=== PATIENT | male | born 1950 | race Caucasian/White ===

== ENCOUNTER → 2018-05-14 12:57 | Outpatient (CLI) | payer MEDICARE, SELFPAY ==
[2018-05-14 15:05] LABS: PSA,Total - Annual Screen < 0.01 ng/mL (0.00-4.00)
== END ==
PROVIDERS: Family Provider Family Medicine; PCP Family Medicine; Referring Provider Urology; Visit Provider Urology
DX: Z12.5 Encounter for screening for malignant neoplasm of prostate (principal)
CPT/HCPCS: 36415; 84153; G0103

== ENCOUNTER → 2018-07-10 14:55 | Outpatient (CLI) | payer MEDICARE, SELFPAY ==
[2018-07-10 13:44] VITALS: BMI 32.1
[2018-07-10 16:04] LABS: Absolute Lymphocyte Count 2.82 X10^3/ul (0.83-4.51); Absolute Neutrophil Count 4.6 X10^3/uL (2.0-7.7); Basophil# 0.04 X10^3/uL; Basophil% 0.5 % (0-1); Eosinophil# 0.09 X10^3/uL; Eosinophils% 1.1 % (0-5); Hematocrit 46.2 % (40-54); Hemoglobin 15.5 g/dl (13.0-16.5); Lymphocyte # 2.82 X10^3/ul (4.0); Mean Corp Hgb Conc 33.5 g/gl (32-36); Mean Corpuscular Hgb 33.6 pg (27.0-32.0); Mean Corpuscular Volume 100.2 fL (80-94); Mean Platelet Vol. 8.9 fl (6.2-12.0); Monocyte% 8.4 % (0-10); Neutrophil # 4.58 X10^3/uL (2.7-7.7); Neutrophil % 55.2 % (47-70); Platelet Count 281 K/mm3 (150-450); RBC Distribution Width CV 12.3 % (11.6-14.6); RBC Distribution Width SD 44.9 fl (35.1-43.9); Red Blood Count 4.61 M/mm3 (4.6-6.2); White Blood Count 8.3 K/mm3 (4.4-11.0)
[2018-07-10 16:13] LABS: Anion Gap 7 (5-15); BUN 15 mg/dL (7-18); BUN/Creat Ratio 15.1 RATIO (10-20); Calcium,Total 8.9 mg/dL (8.5-10.1); Chloride 106 mmol/L (98-107); Creatinine, Serum 0.99 mg/dL (0.70-1.30); EST Glomerular Filtration Rate 79 mL/min (>60); Est Glom Filt Rate - Afr Amer 96 mL/min (>60); Glucose 86 mg/dL (74-106); POSITIVE COUNT NO; POSITIVE DIFFERENTIAL NO; POSITIVE MORPHOLOGY NO; Potassium 3.9 mmol/L (3.5-5.1); Sodium Level 143 mmol/L (136-145)
--- OUTSIDE RECORDS SUMMARY | 2018-09-05 01:02 | XMS RPT_ITS ---
:1950 Author Organization [place] Support Name Relationship Address Phone R Unavailable Unavailable Unavailable CESARISADORA CAMARILLOCY Unavailable [address] + [place] [address] R Unavailable Unavailable Unavailable JANIYA ELIZA Unavailable [address] + [place] [address] R Unavailable Unavailable Unavailable SHIFRABIA ELIZA Unavailable [address] + [place] [address] R Unavailable Unavailable Unavailable R Unavailable Unavailable Unavailable JANIYA ELIZA Unavailable [address] + [place] [address] DULL, IRINA Unavailable [address] + [place] [address] R Unavailable Unavailable Unavailable JANIYA, ELIZA Unavailable [address] + [place] [address] Shiffer, Eliza Unavailable [address] + [place] [address] Shiffer, Eliza Unavailable [address] + [place] [address] Shiffer, Eliza Unavailable [address] + [place] [address] Shiffer, Eliza Unavailable [address] + [place] [address] Shifrabia, Eliza Unavailable [address] + [place] [address] DULL, IRINA Unavailable [address] + [place] [address] R Unavailable Unavailable Unavailable SHIFRABIA, ELIZA Unavailable [address] + [place] [address] DULL, IRINA Unavailable [address] + [place] [address] R Unavailable Unavailable Unavailable ELIZA DENSON Unavailable [address] + [place] [address] Care Team Providers Name Role Phone Petrilla, Ganga Attending Unavailable UNKNOWN, PROVIDER Referring Unavailable Petrilla, Ganga Primary Care Unavailable Petrilla, Ganga Attending Unavailable UNKNOWN, PROVIDER Referring Unavailable Petrilla, Ganga Primary Care Unavailable Petrilla, Ganga Attending Unavailable UNKNOWN, PROVIDER Referring Unavailable Petrilla, Ganga Primary Care Unavailable Ralph Chavez Attending Unavailable Sola Osorio Attending Unavailable PETRILLA, GANGA Referring Unavailable PETRILLA, GANGA Primary Care Unavailable MukeshNelson Attending Unavailable PETRILLA, GANGA Primary Care Unavailable Mukesh, Sunil Referring Unavailable Bere Thompson Attending Unavailable Sadaf, Edgardo Attending Unavailable PETRILLA, GANGA Referring Unavailable Sadaf, [place] Attending Unavailable Sadaf, [place] Referring Unavailable PETRILLA, GANGA Primary Care Unavailable Sadaf, Edgardo Attending Unavailable Sadaf, [place] Referring Unavailable PETRILLA, GANGA Primary Care Unavailable PROBLEMS PROBLEMS DATE TYPE CONDITION / CODE ATTENDING STATUS SOURCE 07/10/2018 Unknown R94.39 - Abnormal Sadaf, [place] Active Berenice result of other [facility] cardiovascular Hospital function study / Repository R94.39(ICD-10) 07/10/2018 Unknown R07.9 - Chest pain, Sadaf, Edgardo Active Berenice unspecified / Community R07.9(ICD-10) Hospital Repository 07/02/2018 Admitting Other forms of Petrilla, Active [facility] Diagnosis dyspnea / [facility] System R06.09(ICD-10) Repository 06/05/2018 Admitting Hepatomegaly, not Petrilla, Active [facility] Diagnosis elsewhere classified [facility] System / R16.0(ICD-10) Repository 06/05/2018 Admitting Fatty (change of) Petrilla, Active [facility] Diagnosis liver, not elsewhere [facility] System classified / Repository K76.0(ICD-10) PROCEDURES PROCEDURES No Procedure Records FoundRESULTS RESULTS CBC W/DIFF, AUTOMATED Collected: 07/10/2018 Status: F Source: BERENICE 3:03 PM [facility] REPOSITORY TYPE CODE TESTS RESULT OUT OF RANGE REFERENCE UNITS LAB L100.1000 4.4-11.0 K/mm3 Normal WBC 8.3 LAB L100.1200 4.6-6.2 M/mm3 Normal RBC 4.61 LAB L100.1300 13.0-16.5 g/dl Normal HGB 15.5 LAB L100.1400 40-54 % Normal HCT 46.2 LAB L100.1500 80-94 fL High MCV 100.2 LAB L100.1600 27.0-32.0 pg High MCH 33.6 LAB L100.1700 32-36 g/gl Normal MCHC 33.5 LAB L100.1810 11.6-14.6 % Normal RDW CV 12.3 LAB L100.1820 35.1-43.9 fl High RDW SD 44.9 LAB L100.1900 150-450 K/mm3 Normal PLT 281 LAB L100.2000 6.2-12.0 fl Normal MPV 8.9 LAB L100.2100 47-70 % Normal NEUT% 55.2 LAB L100.2200 19-41 % Normal LY% 34.0 LAB L100.2300 0-10 % Normal MONO% 8.4 LAB L100.2400 0-5 % Normal EO% 1.1 LAB L100.2500 0-1 % Normal BASO% 0.5 LAB L100.2550 0.0-0.9 % Normal IM GRAN % 0.800 Result Comment: IG% - Immature Granulocytes (promyelocytes, myelocytes and metamyelocytes) > 1% indicates that a LEFT SHIFT is Present. LAB L100.2620 2.0-7.7 X10 3/uL Normal Absolute Neut 4.6 LAB L100.2720 0.83-4.51 X10 3/ul Normal Absolute Lymph 2.82 Performed By: #### L100.0100 #### [facility] [address] [place], [address] BASIC METABOLIC Collected: 07/10/2018 Status: F Source: [facility]ERENICE PROFILE ([facility]) 3:03 PM [facility] REPOSITORY TYPE CODE TESTS RESULT OUT OF RANGE REFERENCE UNITS LAB L501.0100 74-106 mg/dL Normal GLU 86 Result Comment: Please note revised GLUCOSE reference range effective 2017. LAB L501.1000 7-18 mg/dL Normal BUN 15 LAB L501.1100 0.70-1.30 mg/dL Normal CREAT,SERUM 0.99 Result Comment: The validity of the calculated GFR AND GFRAA in patients over 70 years has not been determined. Clinical correlation is essential. LAB L501.1110 >60 mL/min Normal EST GFR 79 Result Comment: Non- GFR Calc LAB L501.1115 >60 mL/min Normal EST GFR - AA 96 Result Comment: GFR Calc LAB L501.1300 10-20 RATIO Normal BUN/CRE 15.1 LAB L501.2200 8.5-10.1 mg/dL CA Normal 8.9 LAB L501.5300 136-145 mmol/L NA Normal 143 LAB L501.5600 3.5-5.1 mmol/L K Normal 3.9 LAB L501.5900 98-107 mmol/L CL Normal 106 LAB L501.6100 21.0-32.0 mmol/L Normal CO2 30.0 LAB L501.6200 5-15 Normal GAP 7 Performed By: #### L500.2500 #### [facility] [address] [place], [address] CARDIOLOGY VISIT Observed: 07/10/2018 Status: F Source: BRACEY REPORT 2:35 PM [facility] REPOSITORY [facility] [address] [place] [address] OFFICE VISIT Date of Service: 07/10/18 MR#: [id number] Acct: [id number] Name: SHIVANI DENSON Rep #: [id number] : 1950 Provider: Edgardo Talavera MD Age/Sex: 68/M Location: [facility] Status: Signed [facility] Chief Complaint: Initial visit. Details: SHIVANI DENSON, is a 68 M who presents to the office today for an initial visit. He is a pleasant gentleman with no previous obstructive coronary disease no cardiac history who has been having shortness of breath with exertion as well as chest discomfort described as a heaviness to the left side of his chest no radiation necessarily and sometimes with or without activity. He does have reactive airway disease and has been difficult to tell the difference between this and angina. As part of his workup he underwent a pharmacologic myocardial perfusion stress test on 06/24/2018 and unfortunately there are 2 results present in the computer both of which are suggestive of some possible perfusion defect. On one reported says the stress EKG is negative and on the other report it says the stress EkG is consistent with myocardial ischemia. The ejection fraction however is noted to be 75%. Due to the above inconsistencies he came here for follow-up evaluation and clarification of the above. You do remember that in 1996 he underwent a cardiac catheterization with no obstructive coronary disease noted. His physical exam here today demonstrates clear lung leblanc regular rate and rhythm and no pedal edema. Intake Vital Signs07/10/18 Height 5 ft 10 in Intake Visit Reasons: PCP ref'd for abn stress Allergies gluten Allergy (Verified 07/10/18 13:41) Food Allergy peanut Allergy (Verified 07/10/18 13:41) Food Allergy yeast, dried [yeast] Allergy (Verified 07/10/18 13:41) Food Allergy Medications Albuterol Inhaler [Ventolin Hfa] 1 - 2 puff INHALATION Q4H PRN PRN 05/17/15 [History Confirmed 07/10/18] Azelastine HCl [Astelin] 1 spray NASAL QHS 05/17/15 [History Confirmed 07/10/18] Mometasone Furoate [Nasonex] 1 spray NASAL DAILY 05/17/15 [History Confirmed 07/10/18] Multivitamins,Ther W-Minerals [Multivitamin With Minerals] 1 tab PO DAILY 05/17/15 [History Confirmed 07/10/18] Cranberry 400 mg PO BID 07/07/15 [History Confirmed 07/10/18] Montelukast [Singulair] 10 mg PO DAILY 07/07/15 [History Confirmed 07/10/18] beclomethasone diprop 80 mcg/actuation HFA breath activated aerosol 1 puff INHALATION BID 07/09/18 [History Confirmed 07/10/18] krill oil 1,000 mg-om3 130 mg-dha 40 mg-epa 80 ic-dd1-kwj-astax cap cap PO cap 07/09/18 [History Confirmed 07/10/18] lactobacillus combination no.4 3 billion cell capsule 3,000 mmu cells PO DAILY 07/09/18 [History Confirmed 07/10/18] pantoprazole 40 mg tablet,delayed release 40 mg PO DAILY 07/09/18 [History Confirmed 07/10/18] tofacitinib ER 11 mg tablet,extended release 24 hr 11 mg PO DAILY 07/09/18 [History Confirmed 07/10/18] aspirin 81 mg tablet,delayed release 81 mg PO DAILY #30 tab 07/10/18 [Rx Confirmed 07/10/18] clopidogrel 75 mg tablet 75 mg PO DAILY #30 tab 07/10/18 [Rx Confirmed 07/10/18] risedronate 150 mg tablet 150 mg PO QMONTH 07/10/18 [History Confirmed 07/10/18] PFSH Medical History Asthma (Chronic) BPH (benign prostatic hyperplasia) (Chronic) DDD (degenerative disc disease), cervical (Chronic) GERD (gastroesophageal reflux disease) (Chronic) Gastric ulcer (Chronic) Kidney stones (Chronic) Obesity (Chronic) Osteoarthritis (Chronic) Osteopenia (Chronic) Prostate cancer (Chronic) Rheumatoid arthritis (Chronic) Surgical History H/O prostatectomy (Resolved) History of carpal tunnel release (Resolved) History of inguinal hernia repair (Resolved) History of left heart catheterization (Resolved 05/01/97) History of lithotripsy (Resolved) History of rhinoplasty (Resolved) History of tonsillectomy (Resolved) History of total knee arthroplasty (Resolved) History of ventral hernia repair (Resolved) Family History Mother Heart disease CHF atrial fib Sister Hypertension Social History Smoking Status: Never smoker ROS Const Const: Negative for fatigue, weakness, difficulty sleeping, frequent falls, excessive sweating or headache(s) Eyes Eyes: Negative for loss of peripheral vision, transient loss of vision, blurry vision, tunnel vision or double vision ENT ENT: Negative for headache(s), dizziness, Nosebleed/epistaxis or balance problems Cardio Chest Pain: Yes Character: dull Onset: at rest, exercise Location: left chest Duration: minutes, hours Exacerbation: activity, rest Palpitations: No Edema: None (C/O pedal edema. States it feels like he's walking on pillows) Muscle aches with walking: None Resp Respiratory: Positive for SOB with activity (SOB with ambulation) and other (SOB for first 15 minutes after laying in bed); negative for SOB at rest, SOB orthopnea\SOB lying down, paroxysmal nocturnal dyspnea or Cough GI GI: Negative nausea, heartburn, black,tarry stools or vomiting : Negative for hematuria Musc Musc: Negative for balance problems, muscle aches/ myalgia, muscle weakness or joint pain Skin Skin: Negative non-healing lesions, unusual bruising or rash Neuro Neuro: Negative for weakness, frequent falls, headache(s), blurry vision, double vision, dizziness, lightheadedness, orthostatic symptoms, near syncope, syncope or lack of coordination Mark Hematologic/Lymphatic: Negative for easy bruising or easy bleeding Endo Endo: Negative for fatigue, excessive sweating or increased thirst/drinking Psych Psych: Negative for anxiety or depression Allergy Allergy/Immunology: Negative for hives, Negative for rash Cardiology Exam Const Appearance: cooperative, healthy appearing, well developed, well groomed and no acute distress Nutritional Appearance: well nourished and average body habitus Orientation: alert, awake and oriented x3 Head Head: normal to inspection, normocephalic and atraumatic Ears: hearing grossly normal bilaterally and external ears normal Nose: external nose normal, nasal mucous membranes and turbinates normal, nares normal, septum normal, no nasal discharge Face and Sinus: face symmetric Mouth: oral mucosae normal, tongue normal, oropharynx normal and moist mucous membranes Teeth and gingiva: dentition normal Throat: posterior oropharynx normal, tonsils normal and uvula midline Eyes General: appearance normal, both eyes and all related structures Eyelids: eyelids normal Conjunctivae: conjunctivae normal Pupils: PERRL, normal by confrontation and accommodation normal EOM: EOM intact bilaterally Neck Neck: normal visual inspection, trachea midline and no JVD JVD: +5 Carotids: normal carotid upstroke and bounding pulses Chest Chest inspection: normal inspection of the chest, symmetric chest movement and normal respiratory effort Auscultation: Bilateral: Clear to Auscultation Cardio Palpation: normal PMI Rate: regular rate Rhythm: regular rhythm Heart sounds: S1 normal, S2 normal and normal, physiologic split S2; negative rub, gallop or murmur GI GI: normal to inspection, soft, no hepatosplenomegaly and bowel sounds present Neuro General: alert, awake, oriented x3, no focal sensory deficit, gait normal and moves all extremities Skin Skin: no rashes or lesions noted Extremities Pulses: Normal: Right Femoral Pulse, Left Femoral Pulse, Right Dorsalis Pedis Pulse, Left Dorsalis Pedis Pulse, Right Posterior Tibial Pulse, Left Posterior Tibial Pulse, Right Radial Pulse, Left Radial Pulse Lower Extremity Edema: None: Bilateral Musculoskel Musculoskeletal: No joint tenderness Psych Psychological: normal affect Assessment AND Plan 1. Abnormal nuclear stress test R94.39 Plan He appears to have an abdomen involved myocardial perfusion stress test. With his symptomatology my recommendation is that we proceed with a left heart catheterization to further define his coronary anatomy. The above has been discussed with him and his the risk benefits alternatives they understand and agree to proceed. Depending on the findings further recommendations will be made. A review of his cardiac catheterization from 1996 was evaluated. Normal ejection fraction was noted at that time. 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 Accession Number [id number] CPT4 Codes 40450 () Reason For Exam goldsmith Report Chest, two views Clinical: Dyspnea on exertion COMPARISON: April 21, 2015 two view chest Frontal and lateral views of the chest were obtained. Low lung volumes are noted on the lateral projection. Eventration of the right hemidiaphragm. The lungs are without focal consolidation or pleural effusion. There is persistent bibasilar scarring/atelectatic changes bilaterally, similar to the prior study. Heart size is stable. No mediastinal shift. Degenerative changes of the spine. IMPRESSION: Similar appearance of bibasilar atelectasis/scarring at the lung bases. No superimposed acute disease is noted. Report Dictated on Final Dictating Physician: MD CHEATHAM BRIAN Signed Date and Time: 07/02/2018 2:09 pm Signed by: MD CHEATHAM BRIAN Transcribed Date and Time: 07/02/2018 2:10 NM MYOCARDIAL PERF Observed: 06/24/2018 Status: F Source: [facility] MULTI SPECT 8:03 AM SYSTEM REPOSITORY Patient Name: SHIVANI DENSON Nuc Med Exam Date/Time 06/24/2018 08:54:45 EST Exam NM Myocardial Perf Imaging Multi Spect Ordering Physician DO ACOSTA EUGENE F. Accession Number [id number] CPT4 Codes 40029 () Reason For Exam shortness of breath Report Nuclear Stress Myocardial Perfusion Study Regadenoson Protocol Gated SPECT Patient: Shivani Denson Height: (70 in) Weight: (235 lb) : 1950 Age: 68 Gender: M Study Date: 06/24/2018 Accession#: Patient Room #: *ORDERING PHYSICIAN: * Ganga Acosta *FELLOW: * Eduarda Aguirre *SUPERVISING PHYSICIAN: * Demetrio Bustos *RN: * Perlita Hopson *NUCLEAR TECH: * Jean-Paul Maravilla *READING PHYSICIAN: * Byron Marin MD, [facility] --- Indications: Dyspnea on exertion. --- Summary: 1. Probably normal vasodilator stress MPI. Mild inferior wall defect is slightly worse on stress images but is most likely artifactual related to adjacent GI tracer activity. 2. Stress ECG conclusions: The stress ECG is negative for ischemia. 3. Gated SPECT: The calculated left ventricular ejection fraction during stress is 75 %. LV global systolic function is normal. No LV regional wall motion abnormalities. --- History: Exertional dyspnea. Medications: Pantoprazole (Protonix). Allergies: No known allergies. No cardiac medications. Asthma. Patient is NPO per policy. No caffeine per policy. Medication list reviewed with patient and no contraindicated medications have been taken. --- Study data: The patient's lungs are clear to auscultation. Heart auscultation by RN revealed a regular rate and rhythm. Pre pain assessment is 0 out of 10. Pre pain location is none. Post pain assessment is 0 out of 10. Patient status: Outpatient. Gated SPECT; rest/stress. One-day Sestamibi. Consent: The procedure was reviewed with the patient and the patient voices understanding. Study completion: The patient tolerated the procedure well and was discharged from the lab. There were no complications. Administered medications: None. Discharge: Discharge instruction given. --- Procedure data: Initial setup. The patient was brought to the laboratory. A baseline ECG was recorded. Surface ECG leads and blood pressure measurements were monitored. IV patent, site benign. IV discontinued, site benign. Regadenoson stress test. Stress testing was performed, with regadenoson by intravenous bolus at one minute into the protocol, for a total dose of 0.4mgover 10.00 sec, followed by a 5 ml saline flush. Exercise for 4 minutes completed by hand refinery superintendent. The infusion was terminated due to end of protocol. A pharmacologic approach was used because the patient was physically unable to exercise. --- Baseline ECG: Normal sinus rhythm. Stress protocol: + +--+ +--------+ !Stage !HR!BP (mmHg) !Symptoms! + +--+ +--------+ !Rest !64!167/101 (123)!None ! + +--+ +--------+ !Peak stress !89!142/89 (107) !None ! + +--+ +--------+ !Recovery !85!127/82 (97) !None ! + +--+ +--------+ !Late recovery!78!143/88 (106) !None ! + +--+ +--------+ Stress results: Peak heart rate during stress was 89 bpm. (59% of maximal predicted heart rate). The maximal predicted heart rate was 151 bpm.The heart rate response to stress is normal. There is an appropriate response to stress. The rate-pressure product for the peak heart rate and blood pressure was 32062 mm Hg/min. The patient experienced no chest pain during stress. Stress ECG: There was no ischemic ST depression. There are no stress arrhythmias or conduction abnormalities. The stress ECG is negative for ischemia. Nonspecific ST: <0.5 mm. Isotope administration: + + + + !Stage !Rest !Stress ! + + + + !Agent !Tc[99m]-sestamibi!Tc[99m]-sestamibi ! + + + + !Dose !8.3 mCi !34.1 mCi ! + + + + !Date !06/24/2018 !06/24/2018 ! + + + + !Injection time!07:45 AM !08:33 AM ! + + + + !Route !IV !IV ! + + + + !Injected by !Bs !Bs ! + + + + !Injection at ! !1 min before end of exercise! + + + + Image properties: Imaging information: The study was gated. The image quality was fair. Rotating projection images reveal diaphragmatic attenuation. Myocardial perfusion imaging: Left ventricular size is normal. The TID ratio is 1.04. Baseline: LV regional perfusion: Mildly reduced perfusion of the basal inferior myocardium. LV myocardial perfusion is otherwise normal. Perfusion score: 1. Regadenoson: LV regional perfusion: Mildly reduced perfusion of the entire inferior myocardium. LV myocardial perfusion is otherwise normal. Perfusion score: 3. Gated SPECT: The left ventricular end-diastolic volume is 92 ml. The left ventricular end-systolic volume is 23 ml. The calculated left ventricular ejection fraction during stress is75 %. LV global systolic function is normal. No LV regional wall motion abnormalities. Electronically signed by Byron Marin MD, FACC 06/24/2018 16:44 Final Dictated: 06/24/2018 4:45 pm Dictating Physician: MD. MARIN FACC, MARK A Signed Date and Time: 06/24/2018 4:45 pm Signed by: MD. MARIN FACC, MARK A US ABDOMEN LIMITED Observed: 06/05/2018 Status: F Source: [facility] 9:12 AM SYSTEM REPOSITORY Patient Name: SHIVANI DENSON Ultrasound Exam Date/Time 06/05/2018 08:20:00 EDT Exam US Abdomen Limited Ordering Physician DO ACOSTA EUGENE F. Accession Number [id number] CPT4 Codes 21578 () Reason For Exam bloating Report ULTRASOUND ABDOMEN LIMITED CLINICAL INDICATION: Bloating TECHNIQUE: Ultrasound of the right upper quadrant COMPARISON: Ultrasound from 09/02/2013 FINDINGS: Somewhat limited study due to bowel gas and body habitus. Liver: Generalized increased echogenicity corresponding to fatty infiltration. The liver is enlarged. Two small liver cysts measuring up to 1.1 cm. Gallbladder: Normal. Per the technologist infectious disease, the sonographic Carty's sign was negative. Bile ducts: No intrahepatic and extrahepatic biliary dilatation Common bile duct: 3 mm \X09\\X09\ Pancreas: The visualized portions of the pancreatic head and body are unremarkable. The remainder of the pancreas is obscured by bowel gas Right kidney: Normal size measuring 9.8 cm. Normal parenchymal echogenicity without solid mass or hydronephrosis. . Small cyst measuring 1.1 cm Ascites: None IMPRESSION: Hepatomegaly and hepatic steatosis. No acute process. Report Dictated on Workstation: [id number] Final Dictating Physician: MD HARRIS NICHOLAS Signed Date and Time: 06/05/2018 9:13 am Signed by: MD HARRIS NICHOLAS Transcribed Date and Time: 06/05/2018 9:24 PSA,TOTAL - ANNUAL Collected: 05/14/2018 Status: F Source: [facility] SCREEN 1:02 PM [facility] REPOSITORY TYPE CODE TESTS RESULT OUT OF RANGE REFERENCE UNITS LAB L501.9910 0.00-4.00 ng/mL Normal PSA,TOT < 0.01 SCREEN Result Comment: This test was performed using the TPSA assay method for the [employer] chemistry system. Values obtained with different assay methods cannot be used interchangably. When changing PSA assays in the course of monitoring a patient, additional sequential testing should be carried out to confirm baseline values. Performed By: #### L501.9910 #### [facility] [address] [place], [address] ALLERGIES ALLERGIES DATE TYPE / CODE NAME / CODE REACTION SEVERITY SOURCE 07/22/2018 Drug peanut/F0060 Food Allergy Unknown [facility] Allergy/4160 10028([place] [address](SNOMED ) Repository CT) 07/22/2018 Drug yeast, Food Allergy Unknown [facility] Allergy/4160 dried/P37591 [facility](SNOMED 1005(RXNORM) Repository CT) 07/22/2018 Drug gluten/F0060 Food Allergy Unknown [facility] Allergy/4160 61017([place] [address](SNOMED ) Repository CT) ENCOUNTERS ENCOUNTERS ADMIT/DISCHARGE ACCOUNT NUMBER ADMITTING ENCOUNTER LOCATION SOURCE CLASS 07/23/2018/07/23/20 [id number] Ambulatory [address] ding:CLSP Repository 07/22/2018 [id number] Ambulatory [facility]: [facility] Repository 07/10/2018 [id number] Ambulatory [facility] ding:LAB Repository 07/10/2018/07/10/20 [id number] Ambulatory [facility]MS[facility]: [place] Repository 07/09/2018 [id number] Ambulatory [facility]: [facility] Repository 07/02/2018 [id number] Ambulatory [facility] Repository 06/24/2018 [id number] Ambulatory [facility] Repository 06/05/2018 [id number] Ambulatory [facility] Repository 05/14/2018 [id number] Ambulatory [facility] ding:LAB.FUT Repository URE 01/19/2018/01/20/20 [id number] Ambulatory BMSBuilding: Scott 17 B[facility] Repository PAYERS PAYERS ENCOUNTER GUARANTOR PAYER SUBSCRIBER SOURCE 07/23/2018 SHIVANI L Primary SHIVANI L Scott [id number] Insurance:AETNA SHIFFERDOB: [facility] Number: [id number] Centre HospitalBLVR7PEffective Repository [address]Xva: (330) Date:5145-15-82[phone] (HP) [id number] [place] [address]MN: 07/23/2018 Secondary NOT GIVENUNK Scott Insurance:SELF PAY [facility] Number: Effective Repository Date:2018-07-10 07/22/2018 SHIVANI L Primary SHIVANI L Berenice [id number] Insurance:AETNA SHIFFERDOB: [facility] Number: [id number] Centre HospitalBLVR7PEffective Repository [address]Xcw: (330) Date:7842-95-26KS [phone] (HP) [id number] ALICE [place]ET[place] [address]PF: 07/22/2018 Secondary NOT GIVENUNK Scott Insurance:SELF PAY [facility] Number: Effective Repository Date:2018-07-22 07/10/2018 SHIVANI L Primary SHIVANI L Berenice [id number] Insurance:AETNA SHIFFERDOB: [facility] [place]: [id number] [id number] Repository [address]Qlh: (330) Date:2790-60-60XL [phone] (HP) [id number] ALICE [place] [address]UM: 07/10/2018 Secondary NOT GIVENUNK Berenice Insurance:SELF PAY [facility] Number: Effective Repository Date:2018-07-10 07/10/2018 SHIVANI L Primary SHIVANI L Scott [id number] Insurance:AETNA SHIFFERDOB: [facility] Number: [id number] Centre HospitalBLVR7PEffective Repository [address]Osv: 330) Date:2273-07-93RS [phone] (HP) [id number] GUNN [address]YV: 07/10/2018 Secondary NOT GIVENUNK Scott Insurance:SELF PAY [facility] Number: Effective Repository Date:2018-07-10 07/09/2018 SHIVANI L Primary SHIVANI L Scott [id number] Insurance:AETNA SHIFFERDOB: [facility] Number: [id number] Centre HospitalBLVR7PEffective Repository [address]Kru: (330) Date:3550-60-86PI [phone] (HP) [id number] [address]PD: 07/09/2018 Secondary NOT GIVENUNK Scott Insurance:SELF PAY [facility] Number: Effective Repository Date:2018-07-09 07/02/2018 Shivani L Primary [facility] Insurance:AetnaPolicy ShifferDOB: System Number: Effective [id number] Repository Gregorio Date: [place], [place] [address]Ftq: (HP) 06/24/2018 Shivani L Primary Shivani L [facility] ShifferD[facility]: Insurance:AetnaPolicy ShifferDOB: System Number: Effective [id number] Repository Gregorio Date: [place], [place] [address]Kwv: (HP) 06/05/2018 Shivani L Primary Shivani L [facility] ShifferDOB: Insurance:AetnaPolicy ShifferDOB: System Number: Effective [id number] Repository Gregorio Date: [place], [place] [address]Apx: (HP) 05/14/2018 SHIVANI L Primary SHIVANI L Berenice [id number] Insurance:AETNA CESARFERDOB: [facility] GREGORIO [facility] Number: [id number], [place] [id number] Repository [address]Two: (330) Date:8951-53-28[phone] (HP) [id number] ALICE [place] [address]ZR: 05/14/2018 Secondary NOT GIVENUNK Berenice Insurance:SELF PAY [facility] Number: Effective Repository Date:2018-05-10 01/19/2018 SHIVANI L Primary SHIVANI L [place] [id number] Insurance:AETNA SHIFFERDOB: [facility] Number: [id number] [id number] Repository [address]Ocy: (330) Date:9455-46-22XR [phone] () [id number] GUNN [address]ZY: 01/19/2018 Secondary NOT GIVENUNK Scott Insurance:SELF PAY [facility] Number: Effective Repository Date:2018-02-01
== END ==
PROVIDERS: Family Provider Family Medicine; PCP Family Medicine; Referring Provider Internal Medicine Cardiovascular Disease; Visit Provider Internal Medicine Cardiovascular Disease
DX: R07.9 Chest pain, unspecified (principal); R94.39 Abnormal result of other cardiovascular function study
CPT/HCPCS: 36415; 80048; 85025

== ENCOUNTER 2018-07-23 06:57 | Day surgery (SDC) | payer MEDICARE, SELFPAY ==
[2018-07-10 13:44] VITALS: BMI 32.1
[2018-07-22 12:24] VITALS: BMI 32.1
--- NOTE | 2018-07-23 07:53 | CL.D_ITS ---
Patient Name: SHIVANI DENSON Study Date: 07/23/2018 Performing: Edgardo Talavera MD Ht: 70.07 inches 178 cm : 1950 Wt: 224.87 lbs 102 kg Age: 68 Gender: male BSA: 2.2 PROCEDURE(S) PERFORMED [id number]/COR/LV CLINICAL PROFILE AND INDICATIONS Indications: Suspected CAD Heart Failure: None Stress/Imaging Stress Test w/SPECT MPI: Yes Result: IndeterminantStress Test with SPECT MPI: Inde terminant CONCLUSIONS Normal coronary arteries Normal LV size, wall motion,and systolic function RECOMMENDATIONS Medical therapy DESCRIPTION OF PROCEDURE The patient arrived to the procedure lab. The risks and benefits of the procedure as well as a full d escription of our services here and current unavailability of surgical backup were fully explained to the patient and/or their significant other prior to the catheterization. The Timeout was completed, verifying the correct patient and procedure. The patient's procedural site was prepped and draped in the usual fashion. Local anesthetic was given subcutaneously to right radial region with Lidocaine 2% . Using a modified Seldinger technique, arterial access was obtained via the right radial artery, a 6 Fr sheath was inserted. Left Coronary Artery selective angiography was performed in multiple views u sing a 5 Fr. 4.0 [place] catheter. Right Coronary Artery selective angiography was then performed in mu ltiple views using a 5 Fr. 4.0 [place] catheter. Left Ventriculography was performed in [place] projection using a 5 Fr. Pigtail catheter. LV to AO pullback pressures were then recorded.The arterial sheath was pulled and a TR Band was applied for hemostasis 11ml CORONARY ANGIOGRAPHY DOMINANCE: Right Dominant LEFT HEART ASSESSMENT Left Ventricular Ejection Fraction: by LV Gram 60 % Normal LV wall motion Normal Left Ventricular systolic function Normal Left Ventricular systolic function LEFT MAIN: Angiographically normal, Angiographically normal LEFT ANTERIOR DECENDING ARTERY: Angiographically normal CIRCUMFLEX ARTERY: Angiographically normal RIGHT CORONARY ARTERY: Angiographically normal COMPLICATIONS No Complications PROCEDURE MEDICATIONS Fentanyl 50 mcg IV Versed 1 mg IV Oxygen: 2 L/min via nasal cannula Heparin diluted in 23cc Heparinized saline. Patient given 10cc IA of this solution. 07/23/2018 07:37 :52 Verapamil 2.5mg, Ntg 100mcgs, 2000 units of Heparin diluted in 23cc Heparinized saline. Patient give n 10cc IA of this solution. 07/23/2018 07:37:52 IV Bolus: .9 NaCl ml total 07/23/2018 07:39:47 SUMMARY OF HEMODYNAMIC DATA Time AIR REST ECG 07:27:27 AO 86/56 (71) SA 07:39:26 LV 92/0, 7 07:45:30 LV 95/-1, 7 07:45:37 LV 95/2, 8 07:46:33 LVp 90/2, 8 07:46:38 AOp 87/50 (67) 07:46:43 AO 112/64 (84) 07:47:04 RM AIR REST 07:50:54 Signed By Edgardo Talavera MD On 07/23/2018 07:52:54 Edgardo Talavera MD
--- OUTSIDE RECORDS SUMMARY | 2018-09-08 05:24 | XMS RPT_ITS ---
:1950 Author Organization [place] Support Name Relationship Address Phone R Unavailable Unavailable Unavailable ELIZA DENSON Unavailable [address] + [place] [address] R Unavailable Unavailable Unavailable ELIZA DENSON Unavailable [address] + [place] [address] R Unavailable Unavailable Unavailable ELIZA DENSON Unavailable [address] + [place] [address] R Unavailable Unavailable Unavailable ELIZA DENSON Unavailable [address] + [place] [address] R Unavailable Unavailable Unavailable ELIZA DENSON Unavailable [address] + [place] [address] R Unavailable Unavailable Unavailable ELIZA DENSON Unavailable [address] + [place] [address] R Unavailable Unavailable Unavailable ELIZA DENSON Unavailable [address] + [place] [address] R Unavailable Unavailable Unavailable R Unavailable Unavailable Unavailable ELIZA DENSON Unavailable [address] + [place] [address] IRINA GARZA Unavailable [address] + [place] [address] R Unavailable Unavailable Unavailable ELIZA DENSON Unavailable [address] + [place] [address] Eliza Denson Unavailable [address] + [place] [address] Laura Densoncy Unavailable [address] + [place] [address] Eliza Denson Unavailable [address] + [place] [address] Shiffer, Eliza Unavailable [address] + [place] [address] Shiffer, Eliza Unavailable [address] + [place] [address] DULL, IRINA Unavailable [address] + [place] [address] R Unavailable Unavailable Unavailable SHIFFER, ELIZA Unavailable [address] + [place] [address] DULL, IRINA Unavailable [address] + [place] [address] R Unavailable Unavailable Unavailable SHIFFER, ELIZA Unavailable [address] + [place] [address] Care Team Providers Name Role Phone Petrilla, Ganga Attending Unavailable UNKNOWN, PROVIDER Referring Unavailable Petrilla, Ganga Primary Care Unavailable Petrilla, Ganga Attending Unavailable UNKNOWN, PROVIDER Referring Unavailable Petrilla, Ganga Primary Care Unavailable Petrilla, Ganga Attending Unavailable UNKNOWN, PROVIDER Referring Unavailable Petrilla, Ganga Primary Care Unavailable Ralph Chavez Attending Unavailable Sadaf, Argyle Attending Unavailable Sadaf, Edgardo Referring Unavailable Sadaf, Edgardo Attending Unavailable Sadaf, Argyle Referring Unavailable PETRILLA, GANGA Primary Care Unavailable Sadaf, Edgardo Attending Unavailable Sadaf, Edgardo Referring Unavailable PETRILLA, GANGA Primary Care Unavailable Sadaf, Argyle Attending Unavailable PETRILLA, GANGA Referring Unavailable Bere Thompson Attending Unavailable Leia Johnson Attending Unavailable Leia Johnson Referring Unavailable PETRILLA, GANGA Primary Care Unavailable Miky Fonseca Attending Unavailable Miky Fonseca Referring Unavailable PETRILLA, GANGA Primary Care Unavailable Miky Fonseca Attending Unavailable PETRILLA, GANGA Referring Unavailable Sola Osorio Attending Unavailable PETRILLA, GANGA Referring Unavailable PETRILLA, GANGA Primary Care Unavailable Nelson Mayorga Attending Unavailable PETRILLA, GANGA Primary Care Unavailable Nelson Mayorga Referring Unavailable PROBLEMS PROBLEMS DATE TYPE CONDITION / CODE ATTENDING STATUS SOURCE 08/28/2018 Unknown R06.09 - Other forms Miky Fonseca Active [facility] of dyspnea / Community R06.09(ICD-10) Hospital Repository 08/28/2018 Unknown Z77.090 - Contact Miky Fonseca Active [facility] with and (suspected) Community exposure to asbestos Hospital / Z77.090(ICD-10) Repository 07/10/2018 Unknown R94.39 - Abnormal Sadaf, Argyle Active [facility] result of other [facility] cardiovascular Hospital function study / Repository R94.39(ICD-10) 07/10/2018 Unknown R07.9 - Chest pain, Sadaf, Edgardo Active [facility] unspecified / Community R07.9(ICD-10) Hospital Repository 07/02/2018 Admitting Other forms of Petrilla, Active [facility] Diagnosis dyspnea / [facility] System R06.09(ICD-10) Repository 06/05/2018 Admitting Hepatomegaly, not Petrilla, Active [facility] Diagnosis elsewhere classified [facility] System / R16.0(ICD-10) Repository 06/05/2018 Admitting Fatty (change of) Petrilla, Active [facility] Diagnosis liver, not elsewhere G[facility] System classified / Repository K76.0(ICD-10) PROCEDURES PROCEDURES No Procedure Records FoundRESULTS RESULTS CHEST WITHOUT Observed: 08/27/2018 Status: F Source: HERCULANEUM CONTRAST 8:02 AM [facility] REPOSITORY [facility] Imaging Services [address] [place] [address] Chest without Contrast MR#: [id number] Acct: [id number] Name: SHIVANI DENSON Rep #: [id number] : 1950 M 68 From: Omar Murray MD PCP: Ganga Acosta DO Status: REG CLI Study: Chest without Contrast Date of Exam: 08/27/18 Exam# [id number] Ordering Dr: Miky Fonseca MD STUDY: CT CHEST WITHOUT CONTRAST REASON FOR EXAM: Male, 68 years old. Cough and shortness of breath x5 years RADIATION DOSAGE (If Supplied By Facility): CTDIvol = ( 17.27 ) mGy, DLP = ( 587.47 ) mGycm TECHNIQUE: Transaxial imaging was performed without the administration of intravenous contrast material. Individualized dose optimization techniques were used for this CT. COMPARISON: None. FINDINGS: There is an intrafissural 5.8 mm left upper lobe nodule image 56 series 1005. There is a small calcified granuloma of the right lower lobe image 91 series 1005. There is mild eventration of the anterior right hemidiaphragm. Normal heart and pericardium. Normal mediastinum. Normal hilar regions. Normal unenhanced pulmonary arteries. Normal aorta arch and descending thoracic aorta. There is an increased thoracic kyphosis. There is diffuse endplate spondylosis of the thoracic spine. There is a 2.3 cm left renal cyst. This is increased in size from prior CT abdomen pelvis dated September 28, 2015. CT/Chest without Contrast IMPRESSION: 1. Intrafissural 5.8 mm left upper lobe nodule. Appropriate follow-up using Fleischner Society criteria is recommended. 2. Small calcified granuloma of the right lower lobe. 3. Mild eventration of the anterior right hemidiaphragm. 4. Increased thoracic kyphosis. Diffuse endplate spondylosis of the thoracic spine. 5. 2.3 cm left renal cyst, increased from 1.[address] abdomen and pelvis of September 28, 2015. Ultrasound correlation is recommended. Electronically Signed: Omar Murray MD at 22:51 EST , Service support , CC: Miky Fonseca MD; Ganga Acosta DO Studio Technician Video Operator: Signed PULMONARY VISIT REPORT Observed: 08/14/2018 Status: F Source: HERCULANEUM 3:43 PM [facility] REPOSITORY [facility] of [address] [place] [address] OFFICE VISIT Date of Service: 08/14/18 MR#: [id number] Acct: [id number] Name: SHIVANI DENSON Jamari Rep #: [id number] : 1950 Provider: Miky Fonseca MD Age/Sex: 68/M Location: [facility] Status: Signed Assessment AND Plan Problems 1. Dyspnea on exertion R06.09 2. Chest pain, unspecified type R07.9 3. Asbestos exposure Z77.090 4. Hypersomnia G47.10 Plan Unclear etiology at this time. Patient may have poorly controlled asthma or also interstitial lung disease associated with rheumatoid arthritis. Patient has had a chest x-ray recently that was read as basilar scarring. Patient did have a heart catheterization showing no occlusive vessel disease, but congestive heart failure with diastolic dysfunction would also be a possibility. Will obtain a CT scan of the chest without contrast for evaluation of possible interstitial lung disease. We will also obtain a complete pulmonary function test for quantification and clarification of lung function. Walking oximetry will be obtained for evaluation of exertional hypoxemia. If patient is found to have exertional hypoxemia, a right heart catheterization may be indicated. No change in medication until further information is available. Some concern for possible sleep apnea, but patient is refusing sleep workup at this time. Continue current medications. Obtain CT chest, complete PFT and walking oximetry. Orders Orders: Medications New: HPI DYSPNEA ON EXERTION: Chief Complaint: Shortness of breath Details: Patient is a 68-year-old male, currently under the care of Dr. Acosta, who presents as a new consultation secondary to progressive shortness of breath. Patient reportedly was complaining of shortness of breath and had a stress test that was read as abnormal. Patient underwent a heart catheterization showing no occlusive disease, so a pulmonary consult was obtained for possible explanation of shortness of breath. Patient reports he has not been seen by pulmonary previously. Patient has never had a pulmonary function test or chest x-ray. Patient reports that over the course of 6 months he has had progressive shortness of breath. Patient reports his exercise tolerance of approximately 100 yards. Patient denies any wheezing, but states he does have a cough is typically dry and worse in the evenings. Patient has been on Qvar for several years secondary to reported asthma, but is unaware of ever having pulmonary function test for evaluation. Patient denies any complications with Qvar including thrush, hoarseness or sore throat. Patient does have multiple allergies and states he struggles with allergic rhinitis year-round. Patient does receive allergy shots. Patient denies any significant epistaxis, but does occasionally have decreased hearing with nasal stuffiness. Patient does report being fatigued throughout the day. Patient states that he does not snore, but can routinely fall asleep while watching TV, reading or waiting in the waiting room. 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 Patient reports the chest x-rays have shown pleural plaquing associated with asbestos exposure. 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 Patient has been diagnosed with rheumatoid arthritis in the past, but has not had baseline pulmonary function tests prior to initiation of therapy. Documentation personally reviewed 20 pages of documentation were reviewed including notes from patient's primary care physician. Patient reportedly has had nonspecific sharp left chest wall pain with a history of an abnormal stress test, rheumatoid arthritis with positive RF, history of prostate and gastric cancer and allergic rhinitis. Patient has been on steroids for a long period of time and has had pathologic fractures. Patient did have a heart catheterization that was within normal limits in 1996 and 07/23/2018 HPI Comments Details: Intake Vital Signs08/14/18 Height 5 ft 10 in 08/14/18 Weight: 102.058 kg Intake Visit Reasons: DYSPNEA ON EXERTION Chief Complaint: Initial visit. Accompanied by: Allergies gluten Allergy (Verified 08/14/18 12:39) Food Allergy peanut Allergy (Verified 08/14/18 12:39) Food Allergy yeast, dried [yeast] Allergy (Verified 08/14/18 12:39) Food Allergy Medications Albuterol Inhaler [Ventolin Hfa] 1 - 2 puff INHALATION Q4H PRN PRN 05/17/15 [History Confirmed 08/14/18] Azelastine HCl [Astelin] 1 spray NASAL QHS 05/17/15 [History Confirmed 08/14/18] Mometasone Furoate [Nasonex] 1 spray NASAL DAILY 05/17/15 [History Confirmed 08/14/18] Multivitamins,Ther W-Minerals [Multivitamin With Minerals] 1 tab PO DAILY 05/17/15 [History Confirmed 08/14/18] Cranberry 400 mg PO BID 07/07/15 [History Confirmed 08/14/18] Montelukast [Singulair] 10 mg PO DAILY 07/07/15 [History Confirmed 08/14/18] beclomethasone diprop 80 mcg/actuation HFA breath activated aerosol 1 puff INHALATION BID 07/09/18 [History Confirmed 08/14/18] krill oil 1,000 mg-om3 130 mg-dha 40 mg-epa 80 tx-za4-hkt-astax cap cap PO cap 07/09/18 [History Confirmed 08/14/18] lactobacillus combination no.4 3 billion cell capsule 3,000 mmu cells PO DAILY 07/09/18 [History Confirmed 08/14/18] pantoprazole 40 mg tablet,delayed release 40 mg PO DAILY 07/09/18 [History Confirmed 08/14/18] tofacitinib ER 11 mg tablet,extended release 24 hr 11 mg PO DAILY 07/09/18 [History Confirmed 08/14/18] risedronate 150 mg tablet 150 mg PO QMONTH 07/10/18 [History Confirmed 08/14/18] cholecalciferol (vitamin D3) 1,000 unit capsule 1,000 unit PO DAILY 08/14/18 [History Confirmed 08/14/18] [facility] Medical History Asthma (Chronic) BPH (benign prostatic [...] Hypertension Social History Smoking Status: Never smoker Review of Systems Const CONSTITUTIONAL: Positive fatigue; negative anorexia, body ache, chills, daytime sleepiness, fever(s), night sweats, oral thrush, stops breathing during sleep, weight loss, sleeping in chair, weight loss, weight gain, frequent colds, seasonal allergies, other, headache(s) or orthopnea EETM Ear Nose Throat Mouth: Positive hearing normal, nasal discharge and post nasal drip; negative hard of hearing, hoarseness, dry mouth in morning, change in vision, itchy eyes, eye pain, swallowing Difficulty, ear pain, nose bleed, headache(s), mouth pain, nasal congestion, sinus pain, sinus pressure, sore throat or other Cardio Cardiovascular: Negative chest pain, chest pain at rest, chest pain with activity, irregular heart rhythm, edema, shortness of breath when lying down, palpitations, murmur or other Resp Respiratory: Positive as per HPI, shortness of breath shortness of breath: Positive with activity and lying down and cough cough: Positive non-productive; negative pain with cough, wheezing, chest congestion, chest tightness, pain on inspiration, inhalers, increase use of rescue inhalers, snoring, apnea or other Gastro Gastrointestional: Negative bloody stools, change in appetite, difficulty swallowing, reflux, hematemesis, melena stool, loose stool, constipation or other Genitourinary: Negative blood in urine, nocturia, pain with urination or other Musc Musculoskeletal: Negative body pain, back pain, neck pain or other Skin/Breast Skin/Breast: Negative dry skin, itching, rash, unusual bruising, breast lump or other Neuro Neurological: Negative restless legs, confusion, weakness or other Psych Psychocological: Negative abnormal sleep pattern, anxiety, thoughts of hurting self/others, hopelessness or other Lymph Lymphatic: Negative easy bleeding, easy bruising, swollen lymph nodes or other Exam Const Constitutional: Positive conversant, cooperative, in no acute respiratory distress, healthy appearing, well developed, well nourished, good hygiene and obese; negative wearing supplemental oxygen, smells of smoke or frail appearing Head Head: Positive normocephalic and atraumatic; negative cyanosis of lips/distal nose, frontal sinus tenderness or maxillary sinus tenderness Eyes Eye: Positive clear conjunctiva; negative nystagmus, scleral abnormality or cataract present Ears Ear: Positive hearing normal and external ears normal; negative hard of hearing Nose Nose: Positive external nose normal, septum normal and clear nasal discharge; negative epistaxis or nasal polyp Mouth Mouth: Positive post nasal drip, oral mucosae normal, no lesions and crowded posterior oropharynx; negative malodorous breath or oral thrush present Mallampati Score: III: Mallampati Score Neck Neck: Positive normal visual inspection, full ROM, trachea midline and male neck greater than 43 cm (17 in); negative lymphadenopathy or JVD Chest Wall Chest: Positive normal inspection of the chest and symmetric chest movement; negative crepitus or tenderness Resp lung sounds: Positive clear to auscultation, good air exchange and prolonged expiratory time; negative wheezes, rhonchi, rales, use of accessory muscles, wheeze present on forced exhalation or dullness to percussion Cardio Cardiac: Positive regular rate, regular rhythm, S2 normal and S1 normal; negative murmur, rub or gallop GI GI: Positive normal to inspection, normal bowel sounds and obese; negative distended, ascites or epigastric tenderness Genitourinary: Positive deferred Musc Musculoskeletal: Positive steady gait; negative using an assistive device for ambulation, kyphosis or scoliosis Skin Pulmonary Skin Exam: Positive intact; negative rash, lesion, ulcers, erythema or dermal atrophy Pulses Pulse: Yes radial pulses present Extremities Extremities: Yes capillary refill normal, No clubbing, No cyanosis, No edema, No stasis dermatitis Neuro Neurologic: Yes conversant, Yes no focal neuro deficits, Yes normal concentration, Yes understands questions, Yes cooperative, Yes normal cognition, Yes normal coordination Lymph Lymphatic: No lymphadenopathy Psych Appearance: Positive grossly normal Mental Status: Positive mental status grossly normal Mood: Positive congruent mood Affect: Positive normal affect Coding Level of Care Code Off vis,new,level 4 Diagnoses Dyspnea on exertion R06.09 Chest pain, unspecified type R07.9 Chest pain type: unspecified Asbestos exposure Z77.090 Hypersomnia G47.10 08/14/18 1543 <Electronically signed by Miky Fonseca MD> Date Miky Fonseca MD Cosigner Signature: Date (if applicable) CC: Ganga Acosta DO CBC W/DIFF, AUTOMATED Collected: 07/10/2018 Status: F Source: BERENICE 3:03 PM [facility] REPOSITORY TYPE CODE TESTS RESULT OUT OF [...] Lymph 2.82 Performed By: #### L100.0100 #### [facility] [address] [place], [address] BASIC METABOLIC Collected: 07/10/2018 Status: F Source: HERCULANEUM PROFILE ([facility]) 3:03 PM [facility] REPOSITORY TYPE CODE TESTS RESULT OUT OF [...] GAP 7 Performed By: #### L500.2500 #### [facility] [address] [place], [place], [address] CARDIOLOGY VISIT Observed: 07/10/2018 Status: F Source: HERCULANEUM REPORT 2:35 PM [facility] REPOSITORY [facility] [address] [place] [address] OFFICE VISIT Date of Service: 07/10/18 MR#: [id number] Acct: [id number] Name: SHIVANI DENSON Rep #: [id number] : 1950 Provider: Edgardo Talavera MD Age/Sex: 68/M [place] [facility] [place]: Signed HPI HPI Chief Complaint: Initial visit. 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 Accession Number [id number] CPT4 Codes 31899 () Reason For Exam goldsmith Report Chest, [...] MYOCARDIAL PERF Observed: 06/24/2018 Status: F Source: [employer] MULTI SPECT 8:03 AM SYSTEM REPOSITORY Patient Name: SHIVANI DENSON Nuc Med Exam Date/Time 06/24/2018 08:54:45 EST Exam NM Myocardial Perf Imaging Multi Spect Ordering Physician DO ACOSTA EUGENE F. Accession Number [id number] CPT4 Codes 27842 () Reason For Exam shortness of breath Report Nuclear Stress Myocardial Perfusion Study Regadenoson Protocol Gated SPECT Patient: Shivani Denson Height: (70 in) Weight: (235 lb) : 1950 Age: 68 Gender: M Study Date: 06/24/2018 Accession#: Patient Room #: *ORDERING PHYSICIAN: * Ganga Acosta *FELLOW: * Eduarda Agurire *SUPERVISING PHYSICIAN: * Demetrio Bustos *RN: Perlita Reddy *NUCLEAR TECH: * Jean-Paul Maravilla *READING PHYSICIAN: * Byron Marin MD, [facility] --- Indications: Dyspnea on exertion. --- Summary: [...] Exercise for 4 minutes completed by hand waistline joiner. The infusion was terminated due to end [...] peak heart rate [place] blood [place] [address]252 mm Hg/min. The patient experienced no chest [...] ABDOMEN LIMITED Observed: 06/05/2018 Status: F Source: [employer] 9:12 AM SYSTEM REPOSITORY Patient Name: SHIVANI DENSON Ultrasound Exam Date/Time 06/05/2018 08:20:00 EDT Exam US Abdomen Limited Ordering Physician DO ACOSTA EUGENE F. Accession Number [id number] CPT4 Codes 38936 () Reason For Exam bloating Report ULTRASOUND ABDOMEN LIMITED CLINICAL INDICATION: Bloating TECHNIQUE: Ultrasound of the right upper quadrant COMPARISON: Ultrasound from 09/02/2013 FINDINGS: Somewhat limited study due to bowel gas and body habitus. Liver: Generalized increased echogenicity corresponding to fatty infiltration. The liver is enlarged. Two small liver cysts measuring up to 1.1 cm. Gallbladder: Normal. Per the electronics engineering technologist, the sonographic Carty's sign was negative. Bile [...] - ANNUAL Collected: 05/14/2018 Status: F Source: [employer] SCREEN 1:02 PM [facility] REPOSITORY TYPE CODE TESTS RESULT OUT OF RANGE REFERENCE UNITS LAB L501.9910 0.00-4.00 ng/mL Normal PSA,TOT < 0.01 SCREEN Result Comment: This test was performed using the TPSA assay method for the [employer] chemistry system. Values obtained with different assay methods cannot be used interchangably. When changing PSA assays in the course of monitoring a patient, additional sequential testing should be carried out to confirm baseline values. Performed By: #### L501.9910 #### [facility] [address] [place], [address] ALLERGIES ALLERGIES DATE TYPE / CODE NAME / CODE REACTION SEVERITY SOURCE 08/14/2018 Drug peanut/F0060 Food Allergy Unknown [facility] Allergy/4160 [address]([place] [address](SNOMED ) Repository CT) 08/14/2018 Drug yeast, Food Allergy Unknown [facility] Allergy/4160 dried/A01728 Hospital 48845(SNOMED 1005(RXNORM) Repository CT) 08/14/2018 Drug gluten/F0060 Food Allergy Unknown [facility] Allergy/4160 [address]([place] [address](SNOMED ) Repository CT) ENCOUNTERS ENCOUNTERS ADMIT/DISCHARGE ACCOUNT NUMBER ADMITTING ENCOUNTER LOCATION SOURCE CLASS 08/29/2018 [id number] Ambulatory [facility] ding:SL Repository 08/27/2018 [id number] Ambulatory [facility] ding:CT Repository 08/14/2018/08/14/19 [id number] Ambulatory [facility]: [facility] Repository 07/23/2018/07/23/20 [id number] Ambulatory BMSBuilding: [facility] Repository 07/23/2018/07/23/20 [id number] Ambulatory [address] ding:CLSP Repository 07/22/2018 [id number] Ambulatory BMSBuilding: [facility] Repository 07/10/2018 [id number] Ambulatory [facility] ding:LAB Repository 07/10/2018/07/10/20 [id number] Ambulatory BMSBuilding: [facility] Repository 07/09/2018 [id number] Ambulatory BMSBuilding: [facility] Repository 07/02/2018 [id number] Ambulatory [facility] Repository 06/24/2018 [id number] Ambulatory [facility] Repository 06/05/2018 [id number] Ambulatory [facility] Repository 05/14/2018 [id number] Ambulatory [facility] ding:LAB.FUT Repository URE 01/19/2018/01/20/20 [id number] Ambulatory BMSBuilding: [facility] Repository PAYERS PAYERS ENCOUNTER GUARANTOR PAYER SUBSCRIBER SOURCE 08/29/2018 SHIVANI L Primary SHIVANI L [place] [id number] Insurance:AETNA SHIFFERDOB: [facility] Number: [id number] HospitalBLVR7PEffective Repository [address]Cet: [phone]) Date:[phone] () [place] [address]DH: 08/29/2018 Secondary NOT GIVENUNK [facility] Insurance:SELF PAY [facility] Center Number: Effective Repository Date:2018-08-23 08/27/2018 SHIVANI L Primary SHIVANI L Berenice [id number] Insurance:AETNA SHIFFERDOB: [facility] Number: [id number] HospitalBLVR7PEffective Repository [address]Rcu: (330) Date:7832-91-17DO [phone] () [id number], [place] [address]BB: 08/27/2018 Secondary NOT GIVENUNK Berenice Insurance:SELF PAY [facility] Number: Effective Repository Date:2018-08-22 08/14/2018 SHIVANI L Primary SHIVANI L Berenice [id number] Insurance:AETNA SHIFFERDOB: [facility] Number: [id number] HospitalBLVR7PEffective Repository 199[address]Zpt: (330) Date:9195-39-48ON [phone] (HP) [id number] [place] [address]AY: 08/14/2018 Secondary NOT GIVENUNK [place] Insurance:SELF PAY [facility]: Effective Repository Date:2018-08-12 07/23/2018 SHIVANI L Primary SHIVANI L [place] [id number] Insurance:AETNA [facility] Number: [id number] HospitalBLVR7PEffective Repository [address]23[address]Bcq: (330) Date:1516-65-61HI [phone] (HP) [id number] [place] [address]LW: 07/23/2018 Secondary NOT GIVENUNK [place] Insurance:SELF PAY [facility] Number: Effective Repository Date:2018-07-23 07/23/2018 SHIVANI L Primary SHIVANI L Berenice [id number] Insurance:AETNA SHIFFERDOB: [facility] Number: [id number] HospitalBLVR7PEffective Repository 04[address]Kin: (330) Date:7123-50-97EC [phone] (HP) [id number] [place] [address]MQ: 07/23/2018 Secondary NOT GIVENUNK [place] Insurance:SELF PAY [facility] Number: Effective Repository Date:2018-07-10 07/22/2018 SHIVANI L Primary SHIVAIN L Berenice [id number] Insurance:AETNA [facility]FFERDOB[facility] [place]: [id number] [id number] Repository [address]Odz: (330) Date:8773-24-41JU [phone] (HP) [id number] [place] [address]QX: 07/22/2018 Secondary NOT GIVENUNK [place] Insurance:SELF PAY [facility] Number: Effective Repository Date:2018-07-22 07/10/2018 SHIVANI L Primary SHIVANI L [place] [id number] Insurance:AETNA SHIFFERDOB: [facility] Number: [id number] HospitalBLVR7PEffective Repository [address]Oxw: (330) Date:8119-89-48GI [phone] (HP) 130089[place], [place] [address]OI: 07/10/2018 Secondary NOT GIVENUNK [place] Insurance:SELF PAY [facility] Number: Effective Repository Date:2018-07-10 07/10/2018 SHIVANI L Primary SHIVANI L [place] [id number] Insurance:AETNA SHIFFERDOB: [facility] Number: [id number] HospitalBLVR7PEffective Repository [address]Xrm: (330) Date:8104-09-81CE [phone] (HP) [id number], [place] [address]ME: 07/10/2018 Secondary NOT GIVENUNK Be[place] Insurance:SELF PAY [facility] Number: Effective Repository Date:2018-07-10 07/09/2018 SHIVANI L Primary SHIVANI L [place] [id number] Insurance:AETNA SHIFFERDOB: [facility] Number: [id number] HospitalBLVR7PEffective Repository [address]Ezx: (330) Date:4489-52-27ZX [phone] (HP) [id number], [place] [address]PP: 07/09/2018 Secondary NOT GIVENUNK [place] Insurance:SELF PAY [facility] Number: Effective Repository Date:2018-07-09 07/02/2018 Shivani L Primary Shivani L [facility] ShifferDOB: Insurance:AetnaPolicy ShifferDOB: System [id number] Number: Effective [id number] Repository Gregorio Date: [place], [place] [address]Thm: (HP) 06/24/2018 Shivani L Primary Shivani L [facility] ShifferDOB: Insurance:AetnaPolicy ShifferDOB: System Number: Effective [id number] Repository Gregorio Date: [place], [place] [address]Gdu: (HP) 06/05/2018 Shivani L Primary Shivani L [facility] ShifferDOB: Insurance:AetnaPolicy ShifferDOB: [facility] Number: Effective [id number] Repository Gregorio Date: [place], [place] [address]Wnv: (HP) 05/14/2018 SHIVANI L Primary SHIVANI L [place] [id number] Insurance:AETNA SHIFFERDOB: [facility] Number: [id number] HospitalBLVR7PEffective Repository [address]Rei: 330) Date:6373-52-23FB [phone] () [id number], [place] [address]FT: 05/14/2018 Secondary NOT GIVENUNK [place] Insurance:SELF PAY [facility] Number: Effective Repository Date:2018-05-10 01/19/2018 SHIVANI L Primary SHIVANI L [place] [id number] Insurance:AETNA SHIFFERDOB: [facility] Number: [id number] HospitalBLVR7PEffective Repository [address]Ntx: (330) Date:9366-59-36HN [phone] () [id number], [place] [address]UJ: 01/19/2018 Secondary NOT GIVENUNK Berenice Insurance:SELF PAY [facility] Number: Effective Repository Date:2018-02-01
== END 2018-07-23 11:00 | disposition home or self-care (01) ==
LOC: CLSP 06:59
PROVIDERS: Family Provider Family Medicine; PCP Family Medicine; Referring Provider Internal Medicine Cardiovascular Disease; Visit Provider Internal Medicine Cardiovascular Disease
DX: R94.39 Abnormal result of other cardiovascular function study (principal); R07.9 Chest pain, unspecified; R06.02 Shortness of breath; J45.909 Unspecified asthma, uncomplicated; M06.9 Rheumatoid arthritis, unspecified; N40.0 Benign prostatic hyperplasia without lower urinary tract symptoms; M50.30 Other cervical disc degeneration, unspecified cervical region; M85.80 Other specified disorders of bone density and structure, unspecified site; K21.9 Gastro-esophageal reflux disease without esophagitis; E66.9 Obesity, unspecified; Z79.02 Long term (current) use of antithrombotics/antiplatelets; Z79.82 Long term (current) use of aspirin; Z79.899 Other long term (current) drug therapy; Z85.46 Personal history of malignant neoplasm of prostate
CPT/HCPCS: 93458; 99152; 99153; J7040; Q9967; C1769; C1894

== ENCOUNTER → 2018-08-27 08:00 | Outpatient (CLI) | payer MEDICARE, SELFPAY ==
[2018-08-14 06:28] VITALS: BMI 32.3
--- NOTE | 2018-08-27 08:02 | CT_ITS ---
STUDY: CT CHEST WITHOUT CONTRAST REASON FOR EXAM: Male, 68 years old. Cough and shortness of breath x5 years RADIATION DOSAGE (If Supplied By Facility): CTDIvol = ( 17.27 ) mGy, DLP = ( 587.47 ) mGycm TECHNIQUE: Transaxial imaging was performed without the administration of intravenous contrast material. Individualized dose optimization techniques were used for this CT. COMPARISON: None. FINDINGS: There is an intrafissural 5.8 mm left upper lobe nodule image 56 series 1005. There is a small calcified granuloma of the right lower lobe image 91 series 1005. There is mild eventration of the anterior right hemidiaphragm. Normal heart and pericardium. Normal mediastinum. Normal hilar regions. Normal unenhanced pulmonary arteries. Normal aorta arch and descending thoracic aorta. There is an increased thoracic kyphosis. There is diffuse endplate spondylosis of the thoracic spine. There is a 2.3 cm left renal cyst. This is increased in size from prior CT abdomen pelvis dated September 28, 2015. CT/Chest without Contrast IMPRESSION: 1. Intrafissural 5.8 mm left upper lobe nodule. Appropriate follow-up using Fleischner Society criteria is recommended. 2. Small calcified granuloma of the right lower lobe. 3. Mild eventration of the anterior right hemidiaphragm. 4. Increased thoracic kyphosis. Diffuse endplate spondylosis of the thoracic spine. 5. 2.3 cm left renal cyst, increased from 1.[address] abdomen and pelvis of September 28, 2015. Ultrasound correlation is recommended. Electronically Signed: Omar Murray MD at 22:51 EST , Service support ,
== END ==
PROVIDERS: Family Provider Family Medicine; PCP Family Medicine; Referring Provider Internal Medicine Critical Care Medicine; Visit Provider Internal Medicine Critical Care Medicine
DX: R06.09 Other forms of dyspnea (principal); Z77.090 Contact with and (suspected) exposure to asbestos
CPT/HCPCS: 71250

== ENCOUNTER → 2018-08-29 20:34 | Outpatient (CLI) | payer MEDICARE, SELFPAY ==
[2018-08-14 06:28] VITALS: BMI 32.3
== END ==
PROVIDERS: Family Provider Family Medicine; PCP Family Medicine; Referring Provider Nurse Practitioner Acute Care; Visit Provider Nurse Practitioner Acute Care
DX: G47.10 Hypersomnia, unspecified (principal)
CPT/HCPCS: 95810

== ENCOUNTER → 2018-09-18 20:34 | Outpatient (CLI) | payer MEDICARE, SELFPAY ==
[2018-08-14 06:28] VITALS: BMI 32.3
== END ==
PROVIDERS: Family Provider Family Medicine; PCP Family Medicine; Referring Provider Nurse Practitioner Acute Care; Visit Provider Nurse Practitioner Acute Care
DX: G47.33 Obstructive sleep apnea (adult) (pediatric) (principal)
CPT/HCPCS: 95811

== ENCOUNTER → 2018-11-08 07:42 | Outpatient (CLI) | payer MEDICARE, SELFPAY ==
[2018-08-14 06:28] VITALS: BMI 32.3
--- NOTE | 2018-11-10 09:59 | PFT ---
INTRODUCTION: The patient is a 68-year-old male that presents for pulmonary function testing secondary to a diagnosis of dyspnea on exertion. Respiratory therapy reports good patient effort. Bronchodilators were used during testing. INTERPRETATION: Forced expiration spirometry demonstrates the presence of a mild large airways obstructive ventilatory defect. There was a significant response to aerosolized bronchodilators noted, based upon change in FEV1. Spirograms are of good quality and plateau gradually. Body plethysmography was performed and reveals lung volumes to be within normal limits. Diffusing capacity by single breath CO is within normal limits at 94% of predicted. IMPRESSION: Partially reversible mild large airways obstructive ventilatory defect with preserved lung volumes and diffusing capacity.
== END ==
PROVIDERS: Family Provider Family Medicine; PCP Family Medicine; Referring Provider Internal Medicine Critical Care Medicine; Visit Provider Internal Medicine Critical Care Medicine
DX: R06.09 Other forms of dyspnea (principal); Z77.090 Contact with and (suspected) exposure to asbestos
CPT/HCPCS: 94060; 94726; 94729

== ENCOUNTER → 2018-11-11 08:51 | Outpatient (CLI) | payer MEDICARE, SELFPAY ==
[2018-08-14 06:28] VITALS: BMI 32.3
[2018-11-11 09:26] VITALS: PULSE 70; PULSE 71; PULSE 84; PULSE 87; PULSE 88; PULSE 89; O2SAT 96; O2SAT 97; O2SAT 98
--- NOTE | 2018-11-11 15:22 | PCM.PSN.6M ---
PSN 6 Minute Walk Test - 6 Minute Walk Test 6 Minute Walk Test: 6 Minute Walk Test PSN:6-Minute Walk Test Start: 11/11/18 09:25 Freq: Status: Active Protocol: RESP.6MINW Document 11/11/18 09:26 RAJIV (Rec: 11/11/18 09:28 RAJIV [id number]) 6 Minute Walk Test Date Performed 11/11/18 Time Performed 09:00 Height 5 ft 10 in Weight: 99.79 kg Weight in Pounds 220.[address]: Miky Fonseca Assistive device used: None Pre-test Oxygen Delivery Method Room Air Pulse Ox (%) 98 Pulse Rate (60-100 beats/min) 71 Dyspnea Ayala Scale (0-10) 0.5 Exertion Ayala Scale (6-20) 6 1st minute Oxygen Delivery Method Room Air Pulse Ox (%) 97 Pulse Rate (60-100 beats/min) 84 2nd minute Oxygen Delivery Method Room Air Pulse Ox (%) 96 Pulse Rate (60-100 beats/min) 87 3rd minute Oxygen Delivery Method Room Air Pulse Ox (%) 97 Pulse Rate (60-100 beats/min) 87 4th minute Oxygen Delivery Method Room Air Pulse Ox (%) 97 Pulse Rate (60-100 beats/min) 88 5th minute Oxygen Delivery Method Room Air Pulse Ox (%) 96 Pulse Rate (60-100 beats/min) 87 6th minute Oxygen Delivery Method Room Air Pulse Ox (%) 96 Pulse Rate (60-100 beats/min) 89 Dyspnea Ayala Scale (0-10) 3 Exertion Ayala Scale (6-20) 12 Post-test Oxygen Delivery Method Room Air Pulse Ox (%) 98 Pulse Rate (60-100 beats/min) 70 Full Laps Walked 20 Partial Lap, Number of Tiles Walked 44 Total Distance Walked (ft) 1224 - Interpretation Interpretation: The patient was able to ambulate 1224 feet over the course of 6 minutes on room air with no assistive devices or breaks. The patient experienced no significant desaturation or tachycardia during testing. These findings are consistent with a normal exercise oximetry. - Recommendations Recommendations: No supplemental oxygen is indicated at this time.
== END ==
PROVIDERS: Family Provider Family Medicine; PCP Family Medicine; Referring Provider Internal Medicine Critical Care Medicine; Visit Provider Internal Medicine Critical Care Medicine
DX: R06.09 Other forms of dyspnea (principal); Z77.090 Contact with and (suspected) exposure to asbestos
CPT/HCPCS: 94618

== ENCOUNTER 2019-01-15 10:55 | Emergency (ER) | payer MEDICARE, SELFPAY ==
[2018-11-18 10:08] VITALS: BMI 32.1
[2019-01-15 10:56] VITALS: BP 141/91; PULSE 56; RESP 17; TEMP 36.6; O2SAT 98; BMI 32.8
--- NOTE | 2019-01-15 11:05 | RAD_ITS ---
STUDY: X-RAY - RIGHT WRIST REASON FOR EXAM: Male, 69 years old. Wrist pain following a fall. TECHNIQUE: 3 view(s) of the wrist were obtained including a scaphoid view. COMPARISON: None. FINDINGS: Normal visualized distal radius and ulna. There is degenerative arthrosis of the radiocarpal articulation. Normal distal radioulnar articulation. Nondisplaced fracture of the carpal navicular bone with increased distance of the scapholunate lunate joint suggestive of a ligamentous injury. There is also evidence of an avulsion fracture of the triquetrum. Normal carpal articulations. Normal carpometacarpal articulation of the thumb. Normal second through fifth carpometacarpal articulations. Normal visualized metacarpal bones. Soft tissue swelling. RAD/Wrist min 3 Views IMPRESSION: Nondisplaced fracture through the waist of the scaphoid bone as well as avulsion fracture of the triquetrum. Widening of the scapholunate joint. Electronically Signed: Luis Fink, at 12:16 EDT , Service support ,
--- NOTE | 2019-01-15 11:29 | ED.DCSUM_ITS ---
- ER Visit Summary Date of Service: 01/15/19 Chief Complaint: [Right wrist injury] History of Present Illness: The patient is a 69 M [presents the emergency department complaint of an injury to the right wrist that occurred during a fall yesterday afternoon around 2 PM. Patient tripped and fell backwards attempted to catch himself with his right wrist. Patient fell onto his buttocks and kind of rolled onto his side. He did not strike his head. No loss of consciousness. Patient has a history of rheumatoid arthritis. Patient complaining of pain to his right wrist. Patient sustained a bruise to his right knee but he is been ambulatory and does not have any discomfort. Patient is right-hand dominant.] Physical Examination: [HEENT-PERRLA, EOMI. Cranial nerves II through XII grossly intact. TMs clear. Mucous membranes moist. No adenopathy. Cardiovascular-regular rate and rhythm without murmur or ectopy Lungs-clear to auscultation, chest wall stable without crepitus or subcu emphysema Abdomen-normoactive bowel sounds, soft, nontender, no rebound or rigidity, no peritoneal signs. Extremities-intact ?4, normal range of motion, normal pulses. Right wrist- patient has diffuse soft tissue swelling about the wrist. Patient has tenderness over the distal radius and in the anatomic snuffbox. Neurovascular intact distally with normal station normal cap refill. Somewhat decreased range of motion secondary to pain. Test Results: [X-rays of the right wrist showed a fracture through the waist of the scaphoid and avulsion fracture of the triquetrum with widening of the scapholunate joint.] Emergency Department Course and Treatment: [Patient case will be discussed with orthopedics and patient will be placed in a thumb spica splint. Patient was given a dose of [place] for pain. Patient will be given a sling.] Treatment Plan: [Thumb spica splint, [place] for pain, and orthopedic follow-up.] Disposition: [Discharged home in stable condition.] Impression: [Right wrist fracture of scaphoid and avulsion fracture of triquetrum] This note was generated with [employer] dictation software. It may contain incorrect words, spelling, and punctuation that were not noted in review of the chart prior to signing ED Disposition - Plan for ED Patient: Referrals: Ganga Acosta [Primary Care Provider] -
--- NOTE | 2019-01-15 12:36 | DCINST.ED_ITS ---
ED Disposition - Plan for ED Patient: Instructions: ED Fx Wrist Navicular Conf Prescriptions: Hydrocodone Bitart/Apap 5-325 [[place] 5MG-325MG] 1 tab PO Q4H PRN PRN 2 Days #20 tab PRN Reason: Pain Referrals: Ganga Acosta [Primary Care Provider] - Jose Carlos Amado DO [STAFF PHYSICIAN] - 3-5 Days
[2019-01-15] MEDS: HYDROcodone Bitartrate/Apap 5/325 Tablet PO (13:05)
[2019-01-15 13:25] VITALS: PULSE 89; RESP 18; O2SAT 99
== END 2019-01-15 13:26 | disposition home or self-care (01) ==
PROVIDERS: Emergency Provider Emergency Medicine; Family Provider Family Medicine; PCP Family Medicine
DX: S62.001A Unspecified fracture of navicular [scaphoid] bone of right wrist, initial encounter for closed fracture (principal); S62.111A Displaced fracture of triquetrum [cuneiform] bone, right wrist, initial encounter for closed fracture; S80.01XA Contusion of right knee, initial encounter; W01.0XXA Fall on same level from slipping, tripping and stumbling without subsequent striking against object, initial encounter; Y93.9 Activity, unspecified; Y92.9 Unspecified place or not applicable; Y99.9 Unspecified external cause status; M06.9 Rheumatoid arthritis, unspecified; Z79.899 Other long term (current) drug therapy
CPT/HCPCS: 73110; 99284

== ENCOUNTER → 2019-06-06 10:23 | Outpatient (CLI) | payer MEDICARE, SELFPAY ==
[2019-05-19 07:54] VITALS: BMI 34.4
[2019-06-06 09:45] VITALS: BMI 34.4
[2019-06-06 11:55] LABS: Absolute Lymphocyte Count 1.27 X10^3/uL (0.83-4.51); Absolute Neutrophil Count 9.6 X10^3/uL (2.0-7.7); Basophil# 0.06 X10^3/uL; Basophil% 0.5 % (0-1); Eosinophil# 0.08 X10^3/uL; Eosinophils% 0.6 % (0-5); Hematocrit 47.7 % (40-54); Hemoglobin 15.9 g/dL (13.0-16.5); Lymphocyte # 1.27 X10^3/ul (4.0); Lymphocyte % 10.2 % (19-41); Mean Corp Hgb Conc 33.3 g/dL (32-36); Mean Corpuscular Hgb 33.5 pg (27.0-32.0); Mean Corpuscular Volume 100.6 fL (80-94); Mean Platelet Vol. 8.7 fl (6.2-12.0); Monocyte# 0.98 X10^3/uL; Monocyte% 7.9 % (0-10); NRBC Flagged by Analyzer 0 % (0-5); Neutrophil % 76.9 % (47-70); Platelet Count 173 K/mm3 (150-450); RBC Distribution Width CV 13.2 % (11.6-14.6); RBC Distribution Width SD 49.1 fl (35.1-43.9); Red Blood Count 4.74 M/mm3 (4.6-6.2); White Blood Count 12.5 K/mm3 (4.4-11.0)
[2019-06-06 12:41] LABS: PSA,Total - Annual Screen < 0.01 ng/mL (0.00-4.00)
[2019-06-10 03:06] LABS: Alternaria alternata <0.10 kU/L (Class 0); Bermuda Grass 0.27 kU/L (Class 0/I); Bluegrass, Kentucky 0.31 kU/L (Class 0/I); Cat Hair/Dander, Standard <0.10 kU/L (Class 0); D farinae Mite 0.13 kU/L (Class 0/I); D pteronyssinus <0.10 kU/L (Class 0); Dog Epithelia <0.10 kU/L (Class 0); Elm, American White 0.28 kU/L (Class 0/I); Oak, White 0.32 kU/L (Class I); Plantain, English 0.28 kU/L (Class 0/I); Ragweed, Short/Common 0.32 kU/L (Class I)
[2019-06-10 09:41] LABS: Mouse Urine <0.10 kU/L (Class 0)
== END ==
PROVIDERS: Nurse Practitioner Acute Care; Family Provider Family Medicine; PCP Family Medicine; Referring Provider Nurse Practitioner Adult Health; Visit Provider Nurse Practitioner Adult Health
DX: J45.40 Moderate persistent asthma, uncomplicated (principal); Z12.5 Encounter for screening for malignant neoplasm of prostate
CPT/HCPCS: 36415; 84153; 85025; 86003; G0103

== ENCOUNTER 2020-02-17 07:26 | Day surgery (SDC) | payer MEDICARE, SELFPAY ==
--- NOTE | 2020-01-29 02:55 | HP_ITS ---
Intake Vital Signs 01/29/20 BMI 34.8 01/29/20 Height 5 ft 10 in 01/29/20 Weight: 230 lb 01/29/20 BMI 33.0 01/29/20 BP 109/64 01/29/20 Blood Pressure Location Lt brachial 01/29/20 Position Sitting 01/29/20 Respiration 16 Intake Visit Reasons: C-Scope Chief Complaint: Postnasal drip [employer] Supervisor Required: No Is patient in pain?: No Allergies gluten Allergy (Verified 01/29/20 13:57) Food Allergy peanut Allergy (Verified 01/29/20 13:57) Food Allergy yeast, dried [yeast] Allergy (Verified 01/29/20 13:57) Food Allergy Medications Albuterol Inhaler [Ventolin Hfa] 1 - 2 puff INHALATION Q4H PRN PRN 05/17/15 [History Confirmed 01/29/20] Azelastine HCl [Astelin] 1 spray NASAL QHS 05/17/15 [History Confirmed 01/29/20] Mometasone Furoate [Nasonex] 1 spray NASAL DAILY 05/17/15 [History Confirmed 09/10/19] Multivitamins,Ther W-Minerals [Multivitamin With Minerals (BKC)] 1 tab PO DAILY 05/17/15 [History Confirmed 01/29/20] Cranberry 400 mg PO BID 07/07/15 [History Confirmed 01/29/20] Montelukast [Singulair] 10 mg PO DAILY 07/07/15 [History Confirmed 01/29/20] krill oil 1,000 mg-om3 130 mg-dha 40 mg-epa 80 [id number]-nub-astax cap cap PO cap 07/09/18 [History Confirmed 01/29/20] lactobacillus combination no.4 3 billion cell capsule 3,000 mmu cells PO DAILY 07/09/18 [History Confirmed 01/29/20] tofacitinib 11 mg tablet,extended release 24 hr 11 mg PO DAILY 07/09/18 [History Confirmed 01/29/20] risedronate 150 mg tablet 150 mg PO QMONTH 07/10/18 [History Confirmed 01/29/20] cholecalciferol (vitamin D3) 25 mcg (1,000 unit) capsule 1,000 unit PO DAILY 08/14/18 [History Confirmed 01/29/20] budesonide-formoterol HFA 160 mcg-4.5 mcg/actuation aerosol inhaler 2 puff INHALATION Q12H #10.2 g 09/11/19 [Rx Confirmed 01/29/20] tiotropium bromide 1.25 mcg/actuation mist for inhalation 2 puff INHALATION DAILY #4 g 10/29/19 [Rx Confirmed 01/29/20] fexofenadine 180 mg tablet 180 mg PO DAILY #90 tab 12/09/19 [Rx Confirmed 01/29/20] fluticasone propionate 50 mcg/actuation nasal spray,suspension 1 spray INTRANASAL BID #3 ea 12/09/19 [Rx Confirmed 01/29/20] baclofen 10 mg tablet 10 mg PO .PRN tab 01/29/20 [History Confirmed 01/29/20] PFSH Medical History Kidney stones (Chronic) Asthma (Chronic) Rheumatoid arthritis (Chronic) Obesity (Chronic) Gastric ulcer (Chronic) DDD (degenerative disc disease), cervical (Chronic) Osteoarthritis (Chronic) Osteopenia (Chronic) BPH (benign prostatic hyperplasia) (Chronic) GERD (gastroesophageal reflux disease) (Chronic) KEZIA treated with BiPAP (Chronic) Moderate persistent allergic asthma 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) Hypersomnia (Chronic) Asbestos exposure (Chronic) Prostate cancer (Chronic) Surgical History History of left heart catheterization (Resolved 07/23/18) History of carpal tunnel release (Resolved) History of inguinal hernia repair (Resolved) H/O prostatectomy (Resolved) History of lithotripsy (Resolved) History of total knee arthroplasty (Resolved) History of rhinoplasty (Resolved) History of tonsillectomy (Resolved) History of ventral hernia repair (Resolved) Family History Mother Heart disease CHF atrial fib Sister Hypertension Social History (Updated 01/29/20 @ 14:[address] Esteban Eugene MD) Smoking Status: Never smoker HPI HPI HPI: SHIVANI DENSON, is a 70 M who presents to the office today for HPI HPI Surgical H&P: Yes HPI: SHIVANI DENSON, is a 70 M who presents to the office today for colonoscopy. The patient has last colonoscopy 3 years ago and was recommended to have a repeat in 3 years. He does not remember the amount or size of polyp. He said that his doctor recommended he have a repeat colonoscopy sooner than 5 years. He also reports that he has been having some bleeding. He says that recently he had an episode of bright red blood and that he has had off-and-on bright red blood in his stool for the past 10 years. He is not having any weight loss or abdominal pain. ROS General General: Yes weight change; no fatigue Cardio Cardiovascular: No murmur, pacemaker, heart disease, atrial fibrillation, high blood pressure, heart attack, heart stent, palpitations, shortness of breat with exertion or chest pain Psych Psychiatric: No depression or anxiety Resp Respiratory: No shortness of breath, Yes sleep apnea, No cough, No COPD, Yes asthma, No emphysema, No wheezing Gastro Gastrointestinal: No abdominal pain, No nausea or vomiting, No diarrhea, No constipation, Yes blood in stool, No acid reflux, No hemorrhoids, No ulcers, No gallbladder problem, No black,tarry stools Mark Hematologic: No blood thinners Exam Const General: cooperative Orientation: alert, oriented x3 Resp Effort & Inspection: normal respiratory effort Auscultation: clear to auscultation bilaterally Cardio Rate: regular rate Rhythm: regular rhythm Heart Sounds: no murmurs GI Inspection: non-distended Palpation: soft, nontender Assessment & Plan Problems 1. Adenomatous polyp of colon, unspecified part of colon D12.6 Plan Patient has a history of colon polyps and was recommended to have a repeat colonoscopy in 3 years. He is due this year for colonoscopy. He also has intermittent bright red bleeding. He is not having any abdominal pain or family history of colon polyps her cancer. Plan for colonoscopy. I explained endoscopy in detail to the patient. I explained the risks including but not limited to stroke or heart attack with anesthesia, perforation of the GI tract, bleeding, infection. I explained that any of these could necessitate further emergency surgery. The patient understands and all questions were answered sufficiently. The patient wishes to proceed with procedure. We discussed the current risks associated with COVID-19. While it is understood that there is a community spread of COVID-19, the risk of luis COVID-19 while at [facility] ([facility]) is very low; however, the risk cannot be completely mitigated because of the community spread of the disease. We discussed in detail the risk of exposure to and/or potential harm posed by the COVID-19 virus with having a surgery/procedure at this time versus the risk of delaying the surgery/procedure. It is not possible to know either the risk of delaying the surgery or procedure or chance of getting an infection with perfect accuracy, but a joint decision was made to proceed at this time with the scheduled surgery/procedure as indicated on the consent form. Patient was notified that we will need to comply with any screening or testing [facility] wishes to perform or that surgery may be delayed for any positive results. Esteban Eugene MD Pager: [facility] [address] [place] [address], [address] [place] [address] Office: Orders Orders: Colonoscopy Today K63.5 Coding Level of Care Code Off vis,new,level 3 Diagnoses Adenomatous polyp of colon, unspecified part of colon D12.6 ??Colon polyp type: adenomatous ??Colon location: unspecified part of colon 01/29/20 8146 <Electronically signed by Esteban naidu MD> Date _ Esteban Eugene MD I have re-examined the patient. There are no clinical changes since date of exam.
[2020-01-29 13:59] VITALS: BMI 34.8
[2020-02-17] VITALS (7 sets, daily range): BP systolic 96–109; BP diastolic 56–69; PULSE 56–63; RESP 16; TEMP 36.5–36.7; O2SAT 94–97; BMI 31.8
[2020-02-17] MEDS: Lactated Ringers 1,000 ML 100 ML IV (08:14)
--- NOTE | 2020-02-17 08:30 | COLBX_PTH ---
PATIENT: SHIVANI DENSON LOC: EN U#:[id number] AGE/SX: 70/M ROOM: RE02/17/[address]: Dr. Esteban Eugene MD : 1950 BED: DIS: 02/17/2020 SPEC #: [id number] RECD: 02/17/20 13:48 STATUS: ETHEL PRASANTH #: [id number] ANNA: 02/17/20 08:[address]: Esteban Eugene DEPT: SURGICAL PATHOLOGY RECD BY: Vijay Gupta ENTERED: 02/18/20 09:20 SP TYPE: COLON BX OTHR DR: Dr. Ganga Acosta DO Tissues: Transverse colon Procedures: Surgery Specimen Level IV HEADER OPERATION: Colonoscopy (MAC) PRE-OP DIAGNOSIS: Screening, history colon polyps TISSUE SUBMITTED: Proximal transverse polyps (2) MICROSCOPIC DIAGNOSIS Proximal transverse colon polyps, biopsy: Fragments of tubular adenoma. AM:angela 02/19/20 MICROSCOPIC DESCRIPTION Slides are reviewed. GROSS DESCRIPTION Received in fixative is one container labeled with the patient's name and designated proximal transverse polyp. The specimen consists of multiple irregular fragments of light bolivar soft tissue mixed with fecal material that in aggregate measure 2 x 0.2 x 0.1 cm. The specimen is totally submitted in one cassette. / SJ:rg 02/18/20 TC:5 CPT: 48688
--- NOTE | 2020-02-17 08:53 | OP.COLON_ITS ---
Patient Name: Jose Roberto Fragoso Procedure Date: 02/17/2020 8:21 AM Date of : 1950 Age: 70 Procedure: Colonoscopy Indications: Surveillance: Personal history of adenomatous polyps on last colonoscopy 3 years ago Providers: Esteban Eugene MD Referring MD: Ganga Acosta Medicines: Monitored Anesthesia Care Patient Profile: This is a 70 year old male. Refer to note in patient chart for documentation of history and physical. Last Colonoscopy: 3 years ago. Complications: No immediate complications. Estimated blood loss: Minimal. Procedure: Pre-Anesthesia Assessment: - Prior to the procedure, a History and Physical was performed, and patient medications and allergies were reviewed. The patient's tolerance of previous anesthesia was also reviewed. The risks and benefits of the procedure and the sedation options and risks were discussed with the patient. All questions were answered, and informed consent was obtained. Prior Anticoagulants: The patient has taken no previous anticoagulant or antiplatelet agents. After reviewing the risks and benefits, the patient was deemed in satisfactory condition to undergo the procedure. After I obtained informed consent, the scope was passed under direct vision. Throughout the procedure, the patient's blood pressure, pulse, and oxygen saturations were monitored continuously. The Colonoscope was introduced through the anus and advanced to the cecum, identified by appendiceal orifice and ileocecal valve. The colonoscopy was performed without difficulty. The patient tolerated the procedure well. The quality of the bowel preparation was good. Scope In: 8:33:09 AM Scope Withdrawal Time 0 hours 8 minutes 23 seconds Scope Out: 8:48:37 AM Total Procedure Duration Time 0 hours 15 minutes 28 seconds Findings: Two polyps were found in the proximal transverse colon. The polyps were small in size. These polyps were removed with a hot snare. Resection and retrieval were complete. Verification of patient identification for the specimen was done. Non-bleeding internal hemorrhoids were found during retroflexion. The hemorrhoids were Grade II (internal hemorrhoids that prolapse but reduce spontaneously). The exam was otherwise without abnormality on direct and retroflexion views. Impression: - Two small polyps in the proximal transverse colon, removed with a hot snare. Resected and retrieved. - Non-bleeding internal hemorrhoids. - The examination was otherwise normal on direct and retroflexion views. Recommendation: - Discharge patient to home. - Resume previous diet. - Continue present medications. - Await pathology results. - Repeat colonoscopy in 3 years for surveillance based on pathology results. Procedure Code(s): --- Professional --- 74454, Colonoscopy, flexible; with removal of tumor(s), polyp(s), or other lesion(s) by snare technique Diagnosis Code(s): --- Professional --- Z86.010, Personal history of colonic polyps D12.3, Benign neoplasm of transverse colon (hepatic flexure or splenic flexure) K64.1, Second degree hemorrhoids CPT copyright 2017 [employer]. All rights reserved. The codes documented in this report are preliminary and upon store team leader review may be revised to meet current compliance requirements. Esteban Eugene MD 02/17/2020 8:53:28 AM This report has been signed electronically. Number of Addenda: 0 Note Initiated On: 02/17/2020 8:21 AM
--- NOTE | 2020-02-17 08:54 | OP.CCLET_ITS ---
02/17/2020 Ganga Acosta Re : Colonoscopy procedure for Jose Roberto Hongfabricio Acosta This procedure was performed on Monday, February 17, 2020. My impressions and recommendations are as follows: Impressions : - Two small polyps in the proximal transverse colon, removed with a hot snare. Resected and retrieved. - Non-bleeding internal hemorrhoids. - The examination was otherwise normal on direct and retroflexion views. Recommendations : - Discharge patient to home. - Resume previous diet. - Continue present medications. - Await pathology results. - Repeat colonoscopy in 3 years for surveillance based on pathology results. My findings are described in the full procedure note, which is enclosed. If I can be of further assistance, please feel free to contact me at Doctor phone number(s): , Work: . Sincerely, Esteban Eugene MD 02/17/2020 8:53:28 AM This report has been signed electronically.
== END 2020-02-17 09:35 | disposition home or self-care (01) ==
LOC: EN 07:29 → AC 07:29
PROVIDERS: Anesthesiology; PCP Family Medicine; Referring Provider Family Medicine; Visit Provider Surgery
PROC: 0DJD8ZZ Inspection of Lower Intestinal Tract, Via Natural or Artificial Opening Endoscopic (ICD-10-PCS; CPT 45378; principal; 2020-02-17 08:25)
DX: Z12.11 Encounter for screening for malignant neoplasm of colon (principal); D12.3 Benign neoplasm of transverse colon; K92.1 Melena; Z11.59 Encounter for screening for other viral diseases; K64.1 Second degree hemorrhoids; R09.82 Postnasal drip; M06.9 Rheumatoid arthritis, unspecified; G47.33 Obstructive sleep apnea (adult) (pediatric); N40.0 Benign prostatic hyperplasia without lower urinary tract symptoms; E66.9 Obesity, unspecified; Z79.51 Long term (current) use of inhaled steroids; Z86.010 Personal history of colon polyps
CPT/HCPCS: 45385; 87635; 88305; G2023; J7120; J2405; U0003

== ENCOUNTER → 2020-02-26 12:25 | Outpatient (CLI) | payer MEDICARE, SELFPAY ==
[2020-02-17 07:58] VITALS: BMI 31.8
[2020-02-26 15:39] LABS: Hematocrit 44.1 % (40-54); Hemoglobin 14.3 g/dL (13.0-16.5); Mean Corp Hgb Conc 32.4 g/dL (32-36); Mean Corpuscular Hgb 32.9 pg (27.0-32.0); Mean Corpuscular Volume 101.6 fL (80-94); Platelet Count 307 K/mm3 (150-450); RBC Distribution Width CV 13.2 % (11.6-14.6); RBC Distribution Width SD 49.2 fl (35.1-43.9); Red Blood Count 4.34 M/mm3 (4.6-6.2); White Blood Count 10.9 K/mm3 (4.4-11.0)
[2020-02-26 15:56] LABS: Anion Gap 6 (5-15); BUN 17 mg/dL (7-18); BUN/Creat Ratio 17.4 RATIO (10-20); Calcium,Total 8.8 mg/dL (8.5-10.1); Chloride 106 mmol/L (98-107); Creatinine, Serum 0.98 mg/dL (0.70-1.30); EST Glomerular Filtration Rate 80 mL/min (>60); Est Glom Filt Rate - Afr Amer 97 mL/min (>60); Glucose 92 mg/dL (74-106); Potassium 3.8 mmol/L (3.5-5.1); Sodium Level 139 mmol/L (136-145); Uric Acid 4.9 mg/dL (3.5-7.2)
[2020-02-26 19:42] LABS: Source- Body Fluid SYNOVIAL
[2020-02-26 19:43] LABS: Body Fluid QC Type(s) BF1Q
[2020-02-27 12:13] LABS: Pathologist Review Reviewed
== END ==
PROVIDERS: PCP Family Medicine; Referring Provider Podiatrist; Visit Provider Podiatrist
DX: M10.9 Gout, unspecified (principal)
CPT/HCPCS: 36415; 80048; 84550; 85027; 87070; 87075; 87205; 89060

== ENCOUNTER → 2020-03-04 13:54 | Outpatient (CLI) | payer MEDICARE, SELFPAY ==
[2020-02-17 07:58] VITALS: BMI 31.8
--- NOTE | 2020-03-04 14:04 | VDLE_ITS ---
Reason For Study: venous insufficiency, pain and swelling RIGHT LEFT CFV is compressible, spontaneous, phasic, CFV is compressible, spontaneous, phasic, competent and demonstrates normal competent, and demonstrates normal augmentation. augmentation. FV is compressible, spontaneous, phasic, FV is compressible, spontaneous, phasic, competent and demonstrates normal competent and demonstrates normal augmentation. augmentation. POP V is compressible, spontaneous, phasic, POP V is compressible, spontaneous, phasic, competent and demonstrates normal competent and demonstrates normal augmentation. augmentation. T/P Trunk is compressible. T/P Trunk is compressible. PTV is compressible. PTV is compressible. RT PerV is compressible. LT PerV is compressible. SFJ is competent and measures .63 x .56 cm. SFJ is competent and measures .8 x .89 cm. GSV proximal thigh measures .34 x .36 cm. GSV above the knee is absent. GSV above knee is competent. ASV below the knee measures .45 x .45 cm. ASV GSV at knee measures .35 x .34 cm. below the knee is incompetent for greater GSV below knee is INCOMPETENT for greater than .5 seconds. than 0.5 seconds. GSV at knee measures .5 x .54 cm. SSV proximal calf is INCOMPETENT for greater GSV below knee is INCOMPETENT for greater than 0.5 seconds and measures .45 x .45 cm. than 0.5 seconds. Procedure SSV proximal calf is INCOMPETENT for greater Exam performed in department. than 0.5 seconds and measures .3 x .33 cm. The exam was diagnostic. A preliminary report was called and/or faxed to Dr. Painter. Interpretation Summary Deep veins of the lower extremities are bilaterally patent and compressible segmentally. There is no evidence of deep vein thrombosis on either side. Valvular competence appears intact within the proximal deep venous systems bilaterally. The right great saphenous vein appears patent and compressible segmentally. The left great saphenous vein is absent above the knee, but patent and compressible below the knee. Sapheno-femoral junctions are bilaterally competent . The right great saphenous vein appears competent above the knee. The right great saphenous vein appears incompetent below the knee. The left great saphenous vein appears incompetent below the knee. Small saphenous veins are patent and incompetent bilaterally. The left accessory saphenous vein below the knee is incompetent. Ordering Physician: Erickson Painter Performed By: Eleno King RVT
== END ==
PROVIDERS: PCP Family Medicine; Referring Provider Podiatrist; Visit Provider Podiatrist
DX: I87.2 Venous insufficiency (chronic) (peripheral) (principal); M79.89 Other specified soft tissue disorders; M79.605 Pain in left leg; M79.604 Pain in right leg
CPT/HCPCS: 93970

== ENCOUNTER → 2020-03-17 09:58 | Outpatient (CLI) | payer MEDICARE, SELFPAY ==
[2020-02-17 07:58] VITALS: BMI 31.8
--- NOTE | 2020-03-17 10:00 | ART_ITS ---
Reason For Study: SWELLING Procedure A bilateral lower extremity continuous wave Doppler with analog waveform analysis,segmental pressures,and ankle brachial indexes without exercise. Left Segmental Pressures Left brachial= 110mmHg. Left posterior tibial artery = 135mmHg. Left dorsalis pedis artery = 137mmHg. Left digit = 122 mmHg. The left dorsalis pedis waveforms are triphasic. The left posterior tibial artery waveforms are triphasic. Right Segmental Pressures Right brachial= 111mmHg. Right posterior tibial artery = 134mmHg. Right dorsalis pedis artery = 144mmHg. Right digit = 118 mmHg. The right dorsalis pedis waveforms are triphasic. The right posterior tibial artery waveforms are triphasic. Indices The right ankle brachial index by the dorsalis pedis is 1.3. The right ankle brachial index by the posterior tibial artery is 1.2. The right digital-brachial index is 1.1. The left ankle brachial index by the posterior tibial artery is 1.2. The left ankle brachial index by the dorsalis pedis is 1.2. The left digital-brachial index is 1.1. Interpretation Summary Triphasic Doppler waveforms are noted at ankle level bilaterally. Pulse-volume recording waveform amplitudes are diminished at digital level on the left, but are otherwise satisfactory at all other levels bilaterally. Resting ankle-brachial indices are normal bilaterally. Digital-brachial indices are normal bilaterally. There is no evidence of significant arterial occlusive disease in the lower extremities bilaterally. Ordering Physician: Man Olivares Referring Physician: MILE MENDIOLA Performed By: JULES PAINTING RDCS
== END ==
PROVIDERS: PCP Family Medicine; Referring Provider Surgery; Visit Provider Surgery
DX: I73.9 Peripheral vascular disease, unspecified (principal); I83.10 Varicose veins of unspecified lower extremity with inflammation; R60.9 Edema, unspecified
CPT/HCPCS: 93923

== ENCOUNTER 2020-03-30 09:00 | Outpatient (RCR) | payer MEDICARE, SELFPAY ==
[2020-02-17 07:58] VITALS: BMI 31.8
[2020-03-23 08:09] VITALS: BP 125/67; PULSE 69; RESP 16; TEMP 36.7; BMI 33.0
--- NOTE | 2020-03-23 08:54 | HP.PCM_ITS ---
(1) Left leg swelling Status: Chronic Current Visit: Yes Code(s): M79.89 - Other specified soft tissue disorders (2) Leg edema, left Status: Chronic Current Visit: Yes Code(s): R60.0 - Localized edema (3) Chronic venous insufficiency Status: Chronic Current Visit: Yes Code(s): I87.2 - Venous insufficiency (chronic) (peripheral) (4) Varicose veins with inflammation Status: Chronic Current Visit: Yes Code(s): I83.10 - Varicose veins of unspecified lower extremity with inflammation (5) Peripheral neuropathy Status: Chronic Current Visit: No Code(s): G62.9 - Polyneuropathy, unspecified (6) Osteopenia Status: Chronic Current Visit: No Code(s): M85.80 - Other specified disorders of bone density and structure, unspecified site (7) History of prostate cancer Status: Chronic Current Visit: No Code(s): Z85.46 - Personal history of malignant neoplasm of prostate (8) Asthma Status: Chronic Current Visit: No Code(s): J45.909 - Unspecified asthma, uncomplicated (9) Obesity (BMI 30.0-34.9) Status: Chronic Current Visit: Yes Code(s): E66.9 - Obesity, unspecified (10) Hyperlipidemia Status: Chronic Current Visit: No Code(s): E78.5 - Hyperlipidemia, unspecified (11) Rheumatoid arthritis Status: Chronic Current Visit: No Code(s): M06.9 - Rheumatoid arthritis, unspecified (12) DDD (degenerative disc disease), cervical Status: Chronic Current Visit: No Code(s): M50.30 - Other cervical disc degeneration, unspecified cervical region (13) Osteoarthritis Status: Chronic Current Visit: No Code(s): M19.90 - Unspecified osteoarthritis, unspecified site (14) GERD (gastroesophageal reflux disease) Status: Chronic Current Visit: No Code(s): K21.9 - Gastro-esophageal reflux disease without esophagitis History of Present Illness Date of Service: 03/23/20 Chief Complaint: Lower extremity swelling and edema, more pronounced in the left lower extremity History of Wound: This is a 70-year-old male who presents with chronic swelling and edema in his lower extremities. The left lower extremity is more profoundly affected than the right. This is been a longstanding problem, but has recently become more severe. Patient was referred for evaluation and management of the swelling in his lower extremities. 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 The patient denies a history of thrombophlebitis. The patient has previously undergone endovenous laser ablation of the left great saphenous vein in the left small saphenous vein in 2005. Symptomatically, the patient indicates that his legs feel heavy. The swelling in his lower extremities appears to be more pronounced at the end of each day. The patient has recently undergone a venous duplex examination, which reveals incompetence of the right great saphenous vein below the knee. The left great saphenous vein is absent above the knee, and incompetent below the knee. Small saphenous veins are incompetent bilaterally. There is an incompetent a ccessory saphenous vein in the left lower extremity below the knee. A noninvasive lower extremity arterial study has also been recently performed, which reveals no evidence of significant arterial occlusive disease. Past Medical History Past Medical History: Chronic Problems (Last Reviewed 01/29/20 @ 13:56 by Trisha Zheng) Left leg swelling (Chronic) Leg edema, left (Chronic) Chronic venous insufficiency (Chronic) Varicose veins with inflammation (Chronic) Peripheral neuropathy (Chronic) Osteopenia (Chronic) History of prostate cancer (Chronic) Asthma (Chronic) Obesity (BMI 30.0-34.9) (Chronic) Hyperlipidemia (Chronic) Kidney stones (Chronic) Asthma (Chronic) Rheumatoid arthritis (Chronic) Obesity (Chronic) Gastric ulcer (Chronic) DDD (degenerative disc disease), cervical (Chronic) Osteoarthritis (Chronic) Osteopenia (Chronic) BPH (benign prostatic hyperplasia) (Chronic) GERD (gastroesophageal reflux disease) (Chronic) KEZIA treated with BiPAP (Chronic) On BiPAP / Moderate persistent allergic asthma 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) Hypersomnia (Chronic) Asbestos exposure (Chronic) Dyspnea on exertion (Chronic) Prostate cancer (Chronic) Past Medical History: The patient denies a history of myocardial infarction, congestive heart failure, hypertension, diabetes mellitus, cerebrovascular accident, renal disease, thyroid disease, and peripheral arterial occlusive disease. According to the patient, he has been evaluated for gout, which has been excluded as a diagnosis. Surgical History: - - Patient underwent endovenous laser ablation of the left great saphenous vein in the left small saphenous vein in 2005. He is undergone left knee replacement surgery x2. He also has undergone right knee replacement surgery. Prostatectomy has been performed in the past. He has had bilateral inguinal hernia repair. He has had surgery on his right second toe. Allergies/Adverse Reactions: Allergies gluten Allergy (Verified 02/09/20 08:46) Food Allergy peanut Allergy (Verified 02/09/20 08:46) Food Allergy yeast, dried [yeast] Allergy (Verified 02/09/20 08:46) Food Allergy environmental Allergy (Uncoded 03/23/20 08:25) PT UNSURE OF REACTION Home Medications: Ambulatory Orders Medication Instructions Recorded Multivitamins,Ther W-Minerals 1 tab PO DAILY 05/17/15 [Multivitamin With Minerals ([facility])] Cranberry 4,200 mg PO DAILY 07/07/15 Montelukast [Singulair] 10 mg PO DAILY 07/07/15 risedronate 150 mg tablet 100 mg PO QMONTH 07/10/18 cholecalciferol (vitamin D3) 25 2,000 unit PO DAILY 08/14/18 mcg (1,000 unit) capsule tiotropium bromide 1.25 2 puff INHALATION DAILY #4 g 10/29/19 mcg/actuation mist for inhalation Tofacitinib Citrate [Xeljanz Xr] 11 mg PO DAILY 02/09/20 Azelastine/Fluticasone 2 puff INHALATION DAILY 03/23/20 [Azelastin-Flutic 137-50Mcg Spr] Budesonide/Formoterol 160/4.5 2 puff INHALATION DAILY 03/23/20 [Symbicort] - Family History Maternal Family History: Family History (Last Reviewed 01/29/20 @ 13:56 by Trisha Zheng) Mother Heart disease Sister Hypertension No pertinent history Paternal Family History: Family History (Last Reviewed 01/29/20 @ 13:56 by Trisha Zheng) Mother Heart disease Sister Hypertension No pertinent history 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 He lives with his . He denies use of alcohol and tobacco products. Lives: Spouse/ Significant Other Smoking Status: Never smoker Tobacco Use: Non-smoker Alcohol: None Drugs: None Review of Systems Constitutional: Denies: Chills, Fever, Weight Change Eyes: Denies: Pain, Vision Change HEENT: Denies: Difficulty Hearing, Difficulty Swallowing, Sinus Congestion Cardiovascular: Denies: Chest Pain, Palpitations Respiratory: Denies: Cough, Shortness of Breath Gastrointestinal: Denies: Diarrhea, Nausea, Vomiting Genitourinary: Denies: Dysuria, Hematuria Endocrine: Denies: Heat/ Cold Intolerance, Polydipsia, Polyuria Hematologic/ Lymphatic: Denies: Easy Bruising, Easy Bleeding - Physical Exam Vital Signs Temp Pulse Resp BP 98.1 F 69 16 125/67 H 03/23/20 08:09 03/23/20 08:09 03/23/20 08:09 03/23/20 08:09 General: Alert, Oriented x3, Cooperative, No apparent distress, Well developed, Well nourished, - - The patient is mildly obese HEENT: Atraumatic, PERRLA, EOMI, Normocephalic Oral: Moist Mucosa Neck: Supple, No JVD, No Nuchal Rigidity, Trachea Midline Lungs: Normal air movement Abdomen: Soft, Non Tender, Non-Distended, Obese Extremities: No clubbing, No cyanosis, No Calf Tenderness, - - Full range of motion is noted. There are no open wounds or ulcerations. Bilateral lower extremity swelling and edema are noted. It is more pronounced in the left lower extremity. Circumference measurements are documented elsewhere. There are no significant skin changes. Skin: No rashes, No breakdown Wound Measurements and Assessment WC - Nurse 1 - General Ulcer Measurement Start: 03/23/20 08:09 Freq: Status: Active Protocol: Activity Type Activity Date Activity User E-Sign Co-Sign Detail Recorded Client Recorded Date Recorded By Document 03/23/20 08:[address] [facility] [id number] 03/23/20 08:[address] [facility] 03/23/20 08:09 W[facility] Center Nurse 1 [Edema Assessment] -Lower Limb Edema Present Yes -Right Calf (cm) 40.1 -Right Ankle (cm) 24.5 -Left Calf (cm) 42.1 -Left Ankle (cm) 26 Musculoskeletal: No Muscle Wasting Neurological: Cranial nerves II-XII grossly intact, Neuro grossly intact Psych/Mental Status: Normal Affect, Appropriate, Alert and oriented to time, place, person, mood and affect Debridement Note No debridement was completed today - Are no open wounds or ulcerations Assessment/Plan Active Problems (Last Reviewed 01/29/20 @ 13:56 by Trisha Zheng) Left leg swelling (Chronic) Leg edema, left (Chronic) Chronic venous insufficiency (Chronic) Varicose veins with inflammation (Chronic) Obesity (BMI 30.0-34.9) (Chronic) Assessment: This is a 70-year-old male who presents with chronic swelling and edema in his lower extremities bilaterally. He is known to have chronic venous insufficiency, varicose veins with inflammation, and a long history of chronic venous disease. He has had a long history of swelling in his lower extremities, though more pronounced recently. There are no open wounds or ulcerations, or any significant skin changes in the lower extremities. However, swelling is noted bilaterally, and is quite notable in the patient's left lower extremity. Plan: We have discussed with the patient and his the measures which are to be implemented initially in management of the patient's lower extremity swelling and edema. He has been advised to elevate his lower extremities as much as possible. Elevation is to be to heart level, or higher. He is to continue sleeping on a flat mattress at night. He is to find time each day to elevate his lower extremities as well. Prolonged idle sitting has been discouraged. Activity has been encouraged. We are to implement compression to the lower extremities by means of SurePress wraps, which will be applied each morning, and left in place until bedtime. The patient and his , at the bedside, are to be instructed in the appropriate means of application. Weight loss is also been recommended. The patient is to return in 1 week for reevaluation. Ultimately, once the swelling has been minimized, it is anticipated that we will implement some form of long-term compression, be it graduated compression stockings of at least 20 to 30 mmHg compression, CircAid garments, or other equivalent products. Consideration may also be given to the use of mechanical pneumatic compression pumps, if current measures do not achieve objectives. Finally, the patient is on multiple medications, some of which may contribute to the swelling in the lower extremities. The patient and his have been advised to discuss his medication regimen with his other medical providers. Influenza vaccine was not administered today. Patient stands 5 feet 10 inches tall. He weighs 230 pounds. His BMI is 33, which places him in an obese class I category. Weight loss has been recommended, in collaboration with his primary care physician has been advised. The patient is not a smoker.
[2020-03-30 09:16] VITALS: BP 113/58; PULSE 58; RESP 16; TEMP 36.8; BMI 33.0
--- NOTE | 2020-03-30 09:39 | PCM.WC.HP ---
(1) Left leg swelling Status: Chronic Current Visit: Yes Code(s): M79.89 - Other specified soft tissue disorders (2) Leg edema, left Status: Chronic Current Visit: Yes Code(s): R60.0 - Localized edema (3) Chronic venous insufficiency Status: Chronic Current Visit: Yes Code(s): I87.2 - Venous insufficiency (chronic) (peripheral) (4) Varicose veins with inflammation Status: Chronic Current Visit: Yes Code(s): I83.10 - Varicose veins of unspecified lower extremity with inflammation (5) Peripheral neuropathy Status: Chronic Current Visit: No Code(s): G62.9 - Polyneuropathy, unspecified (6) Osteopenia Status: Chronic Current Visit: No Code(s): M85.80 - Other specified disorders of bone density and structure, unspecified site (7) History of prostate cancer Status: Chronic Current Visit: No Code(s): Z85.46 - Personal history of malignant neoplasm of prostate (8) Asthma Status: Chronic Current Visit: No Code(s): J45.909 - Unspecified asthma, uncomplicated (9) Obesity (BMI 30.0-34.9) Status: Chronic Current Visit: Yes Code(s): E66.9 - Obesity, unspecified (10) Hyperlipidemia Status: Chronic Current Visit: No Code(s): E78.5 - Hyperlipidemia, unspecified (11) Rheumatoid arthritis Status: Chronic Current Visit: No Code(s): M06.9 - Rheumatoid arthritis, unspecified (12) DDD (degenerative disc disease), cervical Status: Chronic Current Visit: No Code(s): M50.30 - Other cervical disc degeneration, unspecified cervical region (13) Osteoarthritis Status: Chronic Current Visit: No Code(s): M19.90 - Unspecified osteoarthritis, unspecified site (14) GERD (gastroesophageal reflux disease) Status: Chronic Current Visit: No Code(s): K21.9 - Gastro-esophageal reflux disease without esophagitis History of Present Illness Date of Service: 03/30/20 Chief Complaint: Lower extremity swelling and edema, more pronounced in the left lower extremity History of Wound: This is a 70-year-old male who presents with chronic swelling and edema in his lower extremities. The left lower extremity is more profoundly affected than the right. This is been a longstanding problem, but has recently become more severe. Patient was referred for evaluation and management of the swelling in his lower extremities. 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 The patient denies a history of thrombophlebitis. The patient has previously undergone endovenous laser ablation of the left great saphenous vein in the left small saphenous vein in 2005. Symptomatically, the patient indicates that his legs feel heavy. The swelling in his lower extremities appears to be more pronounced at the end of each day. The patient has recently undergone a venous duplex examination, which reveals incompetence of the right great saphenous vein below the knee. The left great saphenous vein is absent above the knee, and incompetent below the knee. Small saphenous veins are incompetent bilaterally. There is an incompetent accessory saphenous vein in the left lower extremity below the knee. A noninvasive lower extremity arterial study has also been recently performed, which reveals no evidence of significant arterial occlusive disease. Past Medical History Past Medical History: Chronic Problems (Last Reviewed 01/29/20 @ 13:56 by Trisha Zheng) Left leg swelling (Chronic) Leg edema, left (Chronic) Chronic venous insufficiency (Chronic) Varicose veins with inflammation (Chronic) Peripheral neuropathy (Chronic) Osteopenia (Chronic) History of prostate cancer (Chronic) Asthma (Chronic) Obesity (BMI 30.0-34.9) (Chronic) Hyperlipidemia (Chronic) Kidney stones (Chronic) Asthma (Chronic) Rheumatoid arthritis (Chronic) Obesity (Chronic) Gastric ulcer (Chronic) DDD (degenerative disc disease), cervical (Chronic) Osteoarthritis (Chronic) Osteopenia (Chronic) BPH (benign prostatic hyperplasia) (Chronic) GERD (gastroesophageal reflux disease) (Chronic) KEZIA treated with BiPAP (Chronic) On BiPAP / Moderate persistent allergic asthma 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) Hypersomnia (Chronic) Asbestos exposure (Chronic) Dyspnea on exertion (Chronic) Prostate cancer (Chronic) Surgical History: - - Patient underwent endovenous laser ablation of the left great saphenous vein in the left small saphenous vein in 2005. He is undergone left knee replacement surgery x2. He also has undergone right knee replacement surgery. Prostatectomy has been performed in the past. He has had bilateral inguinal hernia repair. He has had surgery on his right second toe. Allergies/Adverse Reactions: Allergies gluten Allergy (Verified 02/09/20 08:46) Food Allergy peanut Allergy (Verified 02/09/20 08:46) Food Allergy yeast, dried [yeast] Allergy (Verified 02/09/20 08:46) Food Allergy environmental Allergy (Uncoded 03/23/20 08:25) PT UNSURE OF REACTION Home Medications: Ambulatory Orders Medication Instructions Recorded Multivitamins,Ther W-Minerals 1 tab PO DAILY 05/17/15 [Multivitamin With Minerals ([facility])] Cranberry 4,200 mg PO DAILY 07/07/15 Montelukast [Singulair] 10 mg PO DAILY 07/07/15 risedronate 150 mg tablet 100 mg PO QMONTH 07/10/18 cholecalciferol (vitamin D3) 25 2,000 unit PO DAILY 08/14/18 mcg (1,000 unit) capsule tiotropium bromide 1.25 2 puff INHALATION DAILY #4 g 10/29/19 mcg/actuation mist for inhalation Tofacitinib Citrate [Xeljanz Xr] 11 mg PO DAILY 02/09/20 Azelastine/Fluticasone 2 puff INHALATION DAILY 03/23/20 [Azelastin-Flutic 137-50Mcg Spr] Budesonide/Formoterol 160/4.5 2 puff INHALATION DAILY 03/23/20 [Symbicort] - Family History Maternal Family History: Family History (Last Reviewed 01/29/20 @ 13:56 by Trisha Zheng) Mother Heart disease Sister Hypertension No pertinent history Paternal Family History: Family History (Last Reviewed 01/29/20 @ 13:56 by Trisha Zheng) Mother Heart disease Sister Hypertension No pertinent history Lives: Spouse/ Significant Other Smoking Status: Never smoker Tobacco Use: Non-smoker Alcohol: None Drugs: None Review of Systems Constitutional: Denies: Chills, Fever, Weight Change Eyes: Denies: Pain, Vision Change HEENT: Denies: Difficulty Hearing, Difficulty Swallowing, Sinus Congestion Cardiovascular: Denies: Chest Pain, Palpitations Respiratory: Denies: Cough, Shortness of Breath Gastrointestinal: Denies: Diarrhea, Nausea, Vomiting Genitourinary: Denies: Dysuria, Hematuria Endocrine: Denies: Heat/ Cold Intolerance, Polydipsia, Polyuria Hematologic/ Lymphatic: Denies: Easy Bruising, Easy Bleeding - Physical Exam Vital Signs Temp Pulse Resp BP 98.3 F 58 L 16 113/58 L 03/30/20 09:16 03/30/20 09:16 03/30/20 09:16 03/30/20 09:16 General: Alert, Oriented x3, Cooperative, No apparent distress, Well developed, Well nourished HEENT: Atraumatic, PERRLA, EOMI, Normocephalic Oral: Moist Mucosa Neck: No JVD Lungs: Normal air movement Abdomen: Non-Distended Extremities: No clubbing, No cyanosis, No Calf Tenderness, - - The swelling and edema in the patient's lower extremities is markedly diminished. Only slight swelling and edema persist. There are no open wounds or ulcerations. There are no significant skin changes. Scattered varicosities are noted. Skin: No rashes, No breakdown Wound Measurements and Assessment WC - Nurse 1 - General Ulcer Measurement Start: 03/23/20 08:09 Freq: Status: Active Protocol: Activity Type Activity Date Activity User E-Sign Co-Sign Detail Recorded Client Recorded Date Recorded By Document 03/30/20 09:16 [facility] [id number] 03/30/20 09:21 [facility] 03/30/20 09:16 Wound Center Nurse 1 [Edema Assessment] -Lower Limb Edema Present Yes -Right Calf (cm) 40.8 -Right Ankle (cm) 24.8 -Left Calf (cm) 39.5 -Left Ankle (cm) 23.6 Musculoskeletal: No Muscle Wasting Neurological: Cranial nerves II-XII grossly intact, Neuro grossly intact Psych/Mental Status: Normal Affect, Appropriate, Alert and oriented to time, place, person, mood and affect Debridement Note No debridement was completed today - There are no open wounds or ulcerations Assessment/Plan Active Problems (Last Reviewed 01/29/20 @ 13:56 by Trisha Zheng) Left leg swelling (Chronic) Leg edema, left (Chronic) Chronic venous insufficiency (Chronic) Varicose veins with inflammation (Chronic) Obesity (BMI 30.0-34.9) (Chronic) Assessment: This is a 70-year-old male who presents with chronic swelling and edema in his lower extremities bilaterally. He is known to have chronic venous insufficiency, varicose veins with inflammation, and a long history of chronic venous disease. He has had a long history of swelling in his lower extremities, though more pronounced recently. There are no open wounds or ulcerations, or any significant skin changes in the lower extremities. However, swelling is noted bilaterally. There has, however, been significant improvement in recent weeks. At present, only minimal swelling and edema are noted bilaterally. Plan: We have discussed with the patient and his the measures which are to be implemented in management of the patient's lower extremity swelling and edema. He has been advised to elevate his lower extremities as much as possible. Elevation is to be to heart level, or higher. He is to continue sleeping on a flat mattress at night. He is to find time each day to elevate his lower extremities as well. Prolonged idle sitting has been discouraged. Activity has been encouraged. We are to continue compression to the lower extremities by means of SurePress wraps, which will be applied each morning, and left in place until bedtime. The patient and his , at the bedside, are to be instructed in the appropriate means of application. We have discussed alternative and long-term compression options with the patient and his . These measures have included graduated compression stockings of at least 20 to 30 mmHg compression. We have also discussed graduated compression stockings of lesser compression, but wearing 2 pairs at once. Alternatively, we have also discussed the option of CircAid Velcro compression garments. The patient has decided he prefers graduated compression stockings, knee-high length, of 20 to 30 mmHg compression. A prescription has been provided. The patient has been instructed to purchase these stockings in the near future at a local medical supply store. He has been instructed to go early in the day. Weight loss has also been recommended. The patient is to return in 2 weeks for reevaluation. By that time, it is anticipated that the patient will have obtained his graduated compression stockings, and will be wearing them on a daily basis. This will allow us to determine his progress, and ultimately to consider discharge if he continues to do well clinically. Influenza vaccine was not administered today. Patient stands 5 feet 10 inches tall. He weighs 230 pounds. His BMI is 33, which places him in an obese class I category. Weight loss has been recommended, in collaboration with his primary care physician has been advised. The patient is not a smoker.
== END 2020-04-12 23:59 ==
LOC: WC 09:00
PROVIDERS: PCP Family Medicine; Visit Provider Surgery
DX: M79.89 Other specified soft tissue disorders (principal); R60.0 Localized edema; I83.10 Varicose veins of unspecified lower extremity with inflammation; G62.9 Polyneuropathy, unspecified; M06.9 Rheumatoid arthritis, unspecified; E78.5 Hyperlipidemia, unspecified; J45.909 Unspecified asthma, uncomplicated; M85.80 Other specified disorders of bone density and structure, unspecified site; K21.9 Gastro-esophageal reflux disease without esophagitis; N40.0 Benign prostatic hyperplasia without lower urinary tract symptoms; G47.33 Obstructive sleep apnea (adult) (pediatric); E66.9 Obesity, unspecified; Z68.33 Body mass index [BMI] 33.0-33.9, adult; Z79.51 Long term (current) use of inhaled steroids; Z79.899 Other long term (current) drug therapy; Z85.46 Personal history of malignant neoplasm of prostate; Z96.653 Presence of artificial knee joint, bilateral
CPT/HCPCS: 99212; G0463

== ENCOUNTER 2020-05-04 09:00 | Outpatient (RCR) | payer MEDICARE, SELFPAY ==
[2020-04-13 00:19] VITALS: BP 113/58; PULSE 58; RESP 16; TEMP 36.8
[2020-04-13 09:21] VITALS: BP 117/75; PULSE 52; RESP 20; TEMP 36.7; BMI 33.0
[2020-05-04 09:06] VITALS: BP 116/65; PULSE 64; RESP 20; TEMP 36.8; BMI 33.0
--- NOTE | 2020-05-04 09:22 | HP.PCM_ITS ---
(1) Left leg swelling Status: Chronic Code(s): M79.89 - Other specified soft tissue disorders (2) Leg edema, left Status: Chronic Code(s): R60.0 - Localized edema (3) Chronic venous insufficiency Status: Chronic Code(s): I87.2 - Venous insufficiency (chronic) (peripheral) (4) Varicose veins with inflammation Status: Chronic Code(s): I83.10 - Varicose veins of unspecified lower extremity with inflammation (5) Peripheral neuropathy Status: Chronic Code(s): G62.9 - Polyneuropathy, unspecified (6) Osteopenia Status: Chronic Code(s): M85.80 - Other specified disorders of bone density and structure, unspecified site (7) History of prostate cancer Status: Chronic Code(s): Z85.46 - Personal history of malignant neoplasm of prostate (8) Asthma Status: Chronic Code(s): J45.909 - Unspecified asthma, uncomplicated (9) Obesity (BMI 30.0-34.9) Status: Chronic Code(s): E66.9 - Obesity, unspecified (10) Hyperlipidemia Status: Chronic Code(s): E78.5 - Hyperlipidemia, unspecified (11) Kidney stones Status: Acute Code(s): N20.0 - Calculus of kidney (12) Asthma Status: Chronic Qualifiers: Code(s): J45.909 - Unspecified asthma, uncomplicated (13) Rheumatoid arthritis Status: Chronic Code(s): M06.9 - Rheumatoid arthritis, unspecified (14) History of left heart catheterization Status: Resolved Code(s): Z98.890 - Other specified postprocedural states Comment: 05/01/97 (15) Obesity Status: Chronic Code(s): E66.9 - Obesity, unspecified (16) Gastric ulcer Status: Chronic Code(s): K25.9 - Gastric ulcer, unspecified as acute or chronic, without hemorrhage or perforation (17) DDD (degenerative disc disease), cervical Status: Chronic Code(s): M50.30 - Other cervical disc degeneration, unspecified cervical region (18) Osteoarthritis Status: Chronic Code(s): M19.90 - Unspecified osteoarthritis, unspecified site (19) Osteopenia Status: Chronic Code(s): M85.80 - Other specified disorders of bone density and structure, unspecified site (20) BPH (benign prostatic hyperplasia) Status: Chronic Code(s): N40.0 - Benign prostatic hyperplasia without lower urinary tract symptoms (21) GERD (gastroesophageal reflux disease) Status: Chronic Code(s): K21.9 - Gastro-esophageal reflux disease without esophagitis (22) History of carpal tunnel release Status: Resolved Code(s): Z98.890 - Other specified postprocedural states (23) History of inguinal hernia repair Status: Resolved Code(s): Z98.890 - Other specified postprocedural states; Z87.19 - Personal history of other diseases of the digestive system (24) H/O prostatectomy Status: Resolved Code(s): Z90.79 - Acquired absence of other genital organ(s) (25) History of lithotripsy Status: Resolved Code(s): Z98.890 - Other specified postprocedural states (26) History of total knee arthroplasty Status: Resolved Code(s): Z96.659 - Presence of unspecified artificial knee joint (27) History of rhinoplasty Status: Resolved Code(s): Z98.890 - Other specified postprocedural states (28) History of tonsillectomy Status: Resolved Code(s): Z90.89 - Acquired absence of other organs (29) History of ventral hernia repair Status: Resolved Code(s): Z98.890 - Other specified postprocedural states; Z87.19 - Personal history of other diseases of the digestive system (30) KEZIA treated with BiPAP Status: Chronic Code(s): G47.33 - Obstructive sleep apnea (adult) (pediatric) Comment: On BiPAP 05/18 (31) Moderate persistent allergic asthma without complication Status: Chronic Code(s): J45.40 - Moderate persistent asthma, uncomplicated (32) Hypersomnia Status: Chronic Code(s): G47.10 - Hypersomnia, unspecified (33) Asbestos exposure Status: Chronic Code(s): Z77.090 - Contact with and (suspected) exposure to asbestos (34) Dyspnea on exertion Status: Chronic Code(s): R06.09 - Other forms of dyspnea (35) Prostate cancer Status: Chronic Code(s): C61 - Malignant neoplasm of prostate History of Present Illness Date of Service: 05/04/20 Chief Complaint: Lower extremity swelling and edema, more pronounced in the left lower extremity History of Wound: This is a 70-year-old male who presented with chronic swelling and edema in his lower extremities. The left lower extremity is more profoundly affected than the right. This is been a longstanding problem, but has recently become more severe. The patient was referred for evaluation and management of the swelling in his lower extremities. 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 The patient denies a history of thrombophlebitis. The patient has previously undergone endovenous laser ablation of the left great saphenous vein and the left small saphenous vein in 2005. Symptomatically, the patient indicates that his legs feel heavy. The swelling in his lower extremities appears to be more pronounced at the end of each day. The patient has recently undergone a venous duplex examination, which reveals incompetence of the right great saphenous vein below the knee. The left great saphenous vein is absent above the knee, and incompetent below the knee. Small saphenous veins are incompetent bilaterally. There is an incompetent accessory saphenous vein in the left lower extremity below the knee. A noninvasive lower extremity arterial study has also been recently performed, which reveals no evidence of significant arterial occlusive disease. Past Medical History Past Medical History: Chronic Problems (Last Reviewed 01/29/20 @ 13:56 by Trisha Zheng) Left leg swelling (Chronic) Leg edema, left (Chronic) Chronic venous insufficiency (Chronic) Varicose veins with inflammation (Chronic) Peripheral neuropathy (Chronic) Osteopenia (Chronic) History of prostate cancer (Chronic) Asthma (Chronic) Obesity (BMI 30.0-34.9) (Chronic) Hyperlipidemia (Chronic) Kidney stones (Chronic) Asthma (Chronic) Rheumatoid arthritis (Chronic) Obesity (Chronic) Gastric ulcer (Chronic) DDD (degenerative disc disease), cervical (Chronic) Osteoarthritis (Chronic) Osteopenia (Chronic) BPH (benign prostatic hyperplasia) (Chronic) GERD (gastroesophageal reflux disease) (Chronic) KEZIA treated with BiPAP (Chronic) On BiPAP 10/6 Moderate persistent allergic asthma 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) Hypersomnia (Chronic) Asbestos exposure (Chronic) Dyspnea on exertion (Chronic) Prostate cancer (Chronic) Surgical History: - - Patient underwent endovenous laser ablation of the left great saphenous vein in the left small saphenous vein in 2005. He is undergone left knee replacement surgery x2. He also has undergone right knee replacement surgery. Prostatectomy has been performed in the past. He has had bilateral inguinal hernia repair. He has had surgery on his right second toe. Allergies/Adverse Reactions: Allergies gluten Allergy (Verified 02/09/20 08:46) Food Allergy peanut Allergy (Verified 02/09/20 08:46) Food Allergy yeast, dried [yeast] Allergy (Verified 02/09/20 08:46) Food Allergy environmental Allergy (Uncoded 03/23/20 08:25) PT UNSURE OF REACTION Home Medications: Ambulatory Orders Medication Instructions Recorded Multivitamins,Ther W-Minerals 1 tab PO DAILY 05/17/15 [Multivitamin With Minerals ([facility])] Cranberry 4,200 mg PO DAILY 07/07/15 Montelukast [Singulair] 10 mg PO DAILY 07/07/15 risedronate 150 mg tablet 100 mg PO QMONTH 07/10/18 cholecalciferol (vitamin D3) 25 2,000 unit PO DAILY 08/14/18 mcg (1,000 unit) capsule tiotropium bromide 1.25 2 puff INHALATION DAILY #4 g 10/29/19 mcg/actuation mist for inhalation Tofacitinib Citrate [Xeljanz Xr] 11 mg PO DAILY 02/09/20 Azelastine/Fluticasone 2 puff INHALATION DAILY 03/23/20 [Azelastin-Flutic 137-50Mcg Spr] Budesonide/Formoterol 160/4.5 2 puff INHALATION DAILY 03/23/20 [Symbicort] - Family History Maternal Family History: Family History (Last Reviewed 01/29/20 @ 13:56 by Trisha Zheng) Mother Heart disease Sister Hypertension No pertinent history Paternal Family History: Family History (Last Reviewed 01/29/20 @ 13:56 by Trisha Zheng) Mother Heart disease Sister Hypertension No pertinent history Smoking Status: Never smoker Tobacco Use: Non-smoker Review of Systems Constitutional: Denies: Chills, Fever, Weight Change Eyes: Denies: Pain, Vision Change HEENT: Denies: Difficulty Hearing, Difficulty Swallowing, Sinus Congestion Cardiovascular: Denies: Chest Pain, Palpitations Respiratory: Denies: Cough, Shortness of Breath Gastrointestinal: Denies: Diarrhea, Nausea, Vomiting Genitourinary: Denies: Dysuria, Hematuria Endocrine: Denies: Heat/ Cold Intolerance, Polydipsia, Polyuria Hematologic/ Lymphatic: Denies: Easy Bruising, Easy Bleeding - Physical Exam Vital Signs Temp Pulse Resp BP 98.3 F 64 20 H 116/65 05/04/20 09:06 05/04/20 09:06 05/04/20 09:06 05/04/20 09:06 General: Alert, Oriented x3, Cooperative, No apparent distress, Well developed, Well nourished HEENT: Atraumatic, PERRLA, EOMI, Normocephalic Oral: Moist Mucosa Neck: No JVD Lungs: Normal air movement Abdomen: Non-Distended Extremities: No clubbing, No cyanosis, No Calf Tenderness, - - There are no open wounds or ulcerations in the patient's lower extremities bilaterally. There are no significant skin changes. The swelling and edema in the lower extremities appears to be resolved. The circumference is at calf and ankle level are diminished over those noted previously. Visually, there is market improvement. Patient's feet, particularly the right foot, is slightly edematous, thought to be due to exacerbation of his arthritis. 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 Skin: No rashes, No breakdown Wound Measurements and Assessment WC - Nurse 1 - General Ulcer Measurement Start: 04/13/20 09:21 Freq: Status: Discharge Protocol: Activity Type Activity Date Activity User E-Sign Co-Sign Detail Recorded Client Recorded Date Recorded By Document 05/04/20 09:06 DL [id number] 05/04/20 09:11 DL Edit Status 05/04/20 09:22 BKG DAEMON Active=>Discharge [id number] 05/04/20 09:22 BKG DAEMON 05/04/20 09:06 Wound Center Nurse 1 [Edema Assessment] -Right Calf (cm) 38 -Right Ankle (cm) 24.6 -Left Calf (cm) 39 -Left Ankle (cm) 23 WC - Nurse 2 - General Ulcer CM Notes Start: 04/13/20 09:21 Freq: Status: Discharge Protocol: Activity Type Activity Date Activity User E-Sign Co-Sign Detail Recorded Client Recorded Date Recorded By Edit Status 05/04/20 09:22 BKRachel DAEMON Active=>Discharge [id number] 05/04/20 09:22 PAMELARachel JESSICALOWELL WC - Nurse 3 - General Ulcer D/C NN Start: 04/13/20 09:21 Freq: Status: Discharge Protocol: Activity Type Activity Date Activity User E-Sign Co-Sign Detail Recorded Client Recorded Date Recorded By Edit Status 05/04/20 09:22 REGGIE VASQUEZ Active=>Discharge [id number] 05/04/20 09:22 PAMELARachel VASQUEZ Musculoskeletal: No Muscle Wasting Neurological: Cranial nerves II-XII grossly intact, Neuro grossly intact Psych/Mental Status: Normal Affect, Appropriate, Alert and oriented to time, place, person, mood and affect Debridement Note No debridement was completed today - There are no open wounds or ulcerations. Assessment/Plan Assessment: This is a 70-year-old male who presented with chronic swelling and edema in his lower extremities bilaterally. He is known to have chronic venous insufficiency, varicose veins with inflammation, and a long history of chronic venous disease. He has had a long history of swelling in his lower extremities, though more pronounced recently. There are no open wounds or ulcerations, or any significant skin changes in the lower extremities. However, swelling was initially noted bilaterally. There has, however, been significant improvement in recent weeks. At present, no significant swelling or edema are noted bilaterally. The patient has obtained knee-high graduated compression stockings of 20 to 30 mmHg compression, and has been wearing them daily, without complaints. Plan: The patient appears to be doing well. The swelling and edema in the patient's lower extremities is markedly improved, and now minimized. He has obtained his knee-high graduated compression stockings which are of 20 to 30 mmHg compression, and has been wearing them daily. Furthermore, he is sleeping on a flat mattress at night. He is elevating his lower extremities as much as possible during daytime hours. He has been refraining from prolonged idle sitting. He remains active. He has done well, and appears to be relatively compliant with medical recommendations. He is accompanied by his , who oversees his daily routine, and hold some to task in terms of following medical instructions. The patient is to be discharged, and will follow-up henceforth on an as-needed basis. Influenza vaccine was not administered today. Patient stands 5 feet 10 inches tall. He weighs 230 pounds. His BMI is 33, which places him in an obese class I category. Weight loss has been recommended, in collaboration with his primary care physician has been advised. The patient is not a smoker.
== END 2020-05-04 09:21 | disposition home or self-care (01) ==
LOC: WC 09:00
PROVIDERS: PCP Family Medicine; Visit Provider Surgery
DX: I83.10 Varicose veins of unspecified lower extremity with inflammation (principal); M79.89 Other specified soft tissue disorders; R60.0 Localized edema; G62.9 Polyneuropathy, unspecified; J45.40 Moderate persistent asthma, uncomplicated; M06.9 Rheumatoid arthritis, unspecified; E78.5 Hyperlipidemia, unspecified; N40.0 Benign prostatic hyperplasia without lower urinary tract symptoms; M85.80 Other specified disorders of bone density and structure, unspecified site; G47.33 Obstructive sleep apnea (adult) (pediatric); K21.9 Gastro-esophageal reflux disease without esophagitis; E66.9 Obesity, unspecified; Z68.33 Body mass index [BMI] 33.0-33.9, adult; Z77.090 Contact with and (suspected) exposure to asbestos; Z79.51 Long term (current) use of inhaled steroids; Z79.899 Other long term (current) drug therapy; Z85.46 Personal history of malignant neoplasm of prostate; Z96.653 Presence of artificial knee joint, bilateral; Z90.79 Acquired absence of other genital organ(s)
CPT/HCPCS: 99212; G0463

== ENCOUNTER → 2020-05-22 07:12 | Outpatient (CLI) | payer MEDICARE, SELFPAY ==
[2020-05-04 09:06] VITALS: BMI 33.0
--- NOTE | 2020-05-22 07:35 | MRI_ITS ---
STUDY: MRI RIGHT FOREFOOT WITHOUT CONTRAST REASON FOR EXAM: Male, 70 years old. rt foot pain,TOP OF FOREFOOT/MIDFOOT TECHNIQUE: Standardized fat and water weighted pulse sequences were obtained in all 3 orthogonal planes. COMPARISON: None. FINDINGS: There is degenerative arthrosis of the metatarsophalangeal joint of the hallux. Normal tibial and fibular sesamoids, with normal sesamoids-first metatarsal articulations. There is degenerative arthrosis of the interphalangeal joint of the hallus. Normal proximal and distal phalanges of the great toe. Normal medial and lateral heads of the flexor hallucis brevis tendons. Normal flexor and extensor hallucis longus tendons. Normal second through fifth metatarsophalangeal (MTP) joints. There is amputation of the middle and distal phalanges of the second toe. There is postoperative change at the proximal interphalangeal joint of the fourth toe. There is marrow edema of the navicular, cuneiform bones, cuboid, and base of the first through fifth metatarsals. There is arthritic change of the tarsometatarsal articulations. There is 1.0 cm fluid collection along the dorsal aspect, series 6 image Normal first through fourth intermetatarsal spaces. Normal flexor and extensor tendons of the second through fifth toes. Normal visualized metatarsi. There is diffuse atrophy of the intrinsic muscles of the forefoot consistent with a peripheral neuropathy. MRI/Lower Ext/No Jt/w/o IMPRESSION: Advanced arthritic change of the tarsometatarsal articulations consistent with Charcot arthropathy. Ganglia on the dorsum of the foot. Electronically Signed: Xavier Gonzalez MD at 9:53 EDT , Service support ,
--- NOTE | 2020-05-22 07:37 | MRI_ITS ---
STUDY: MRI LEFT ANKLE WITHOUT CONTRAST REASON FOR EXAM: Male, 70 years old. lt ankle swelling TECHNIQUE: Standardized fat and water weighted pulse sequences were obtained in all 3 orthogonal planes. COMPARISON: None. FINDINGS: Normal subcutis adipose space. Normal posterior tibialis tendon. Normal flexor digitorum longus tendon. Normal flexor hallucis longus tendon. Normal peroneus longus and brevis tendons. There is tendinosis with thickening and high-grade tear of the tibialis anterior, series 3 images / through 16. Normal extensor hallucis longus tendon. Normal extensor digitorum longus tendons. Normal Achilles tendon and teno-osseous insertion. Thickening and edema of the proximal plantar fascia. There is a plantar calcaneal spur, but without cancellous marrow edema. Normal intrinsic muscles of the rearfoot. Normal distal tibiofibular syndesmotic ligamentous complex. Normal lateral ligamentous complex. Normal subtalar ligaments and sinus tarsi. Normal deltoid ligamentous complexes. Normal plantar calcaneonavicular (spring) ligament. Mild edema of the cuboid, series 10 image 17/ Normal tibiotalar articulation. Normal talar dome. Normal subtalar articulations. Normal talonavicular articulation. Normal calcaneocuboid articulation. Normal navicular-cuneiform articulations. MRI/Lower Ext Joint Only (Routine) IMPRESSION: Tendinosis of the high-grade tear of the tibialis anterior. Heel spur. Thickening of the plantar fascia. Bone bruise or stress injury of the cuboid. Electronically Signed: Xavier Gonzalez MD at 9:44 EDT , Service support ,
== END ==
PROVIDERS: PCP Family Medicine; Referring Provider Podiatrist; Visit Provider Podiatrist
DX: S93.334A Other dislocation of right foot, initial encounter (principal); S86.812A Strain of other muscle(s) and tendon(s) at lower leg level, left leg, initial encounter; X58.XXXA Exposure to other specified factors, initial encounter; Y93.9 Activity, unspecified; Y92.9 Unspecified place or not applicable; Y99.9 Unspecified external cause status
CPT/HCPCS: 73718; 73721

== ENCOUNTER → 2020-05-31 12:13 | Outpatient (CLI) | payer MEDICARE, SELFPAY ==
[2020-05-04 09:06] VITALS: BMI 33.0
[2020-05-31 11:29] VITALS: BMI 33.0
[2020-05-31 13:55] LABS: PSA,Total- Diagnostic < 0.01 ng/mL (0.0-4.0)
== END ==
PROVIDERS: PCP Family Medicine; Referring Provider Nurse Practitioner Adult Health; Visit Provider Nurse Practitioner Adult Health
DX: Z85.46 Personal history of malignant neoplasm of prostate (principal)
CPT/HCPCS: 36415; 84153

== ENCOUNTER → 2020-06-14 17:02 | Outpatient (CLI) | payer MEDICARE, SELFPAY ==
[2020-05-31 11:29] VITALS: BMI 33.0
[2020-06-14 17:21] LABS: Bacteria 0 SEEN /hpf (None Seen); Red Blood Cells-Urine 0 SEEN /hpf (0-5)
[2020-06-14 19:01] LABS: Color, Urine Yellow (Yellow); Glucose, Dipstick Normal (Normal); Ketone-Dipstick 5 mg/dl (Negative); Leukocyte Esterase-Dipstick Negative /ul (Negative); Nitrite-Dipstick Negative (Negative); Occult Blood-Urine 10 /ul (Negative); Protein-Dipstick 15 mg/dl (Negative); Urine Bilirubin Dipstick Negative (Negative); Urine Clarity Clear (Clear); Urine Urobilinogen Normal (Normal)
[2020-06-14 19:15] LABS: Mucous, Urine 1+ /hpf (<or=2+); Squamous Epithelial Cells - UA 0-5 SEEN /hpf (0-5); White Blood Cells 0-5 SEEN /hpf (0-5)
== END ==
PROVIDERS: PCP Family Medicine; Referring Provider Nurse Practitioner Adult Health; Visit Provider Nurse Practitioner Adult Health
DX: R31.29 Other microscopic hematuria (principal)
CPT/HCPCS: 81001

== ENCOUNTER → 2020-06-18 14:25 | Outpatient (CLI) | payer MEDICARE, SELFPAY ==
[2020-05-31 11:29] VITALS: BMI 33.0
[2020-06-18 17:23] LABS: Absolute Lymphocyte Count 1.61 X10^3/uL (0.83-4.51); Absolute Neutrophil Count 5.2 X10^3/uL (2.0-7.7); Basophil# 0.05 X10^3/uL; Basophil% 0.6 % (0-1); Eosinophil# 0.16 X10^3/uL; Eosinophils% 2.1 % (0-5); Hematocrit 45.9 % (40-54); Lymphocyte # 1.61 X10^3/ul (4.0); Lymphocyte % 20.9 % (19-41); Mean Corp Hgb Conc 32.7 g/dL (32-36); Mean Corpuscular Hgb 32.4 pg (27.0-32.0); Mean Corpuscular Volume 99.1 fL (80-94); Mean Platelet Vol. 8.9 fl (6.2-12.0); Monocyte# 0.67 X10^3/uL; Monocyte% 8.7 % (0-10); NRBC Flagged by Analyzer 0 % (0-5); Neutrophil # 5.18 X10^3/uL (2.7-7.7); Neutrophil % 67.3 % (47-70); Platelet Count 306 K/mm3 (150-450); RBC Distribution Width CV 12.9 % (11.6-14.6); RBC Distribution Width SD 46.1 fl (35.1-43.9); Red Blood Count 4.63 M/mm3 (4.6-6.2); White Blood Count 7.7 K/mm3 (4.4-11.0)
[2020-06-18 18:11] LABS: ALB/GLOB Ratio 0.8 RATIO (0.9-2.4); AST(SGOT) 21 U/L (15-37); Alanine Aminotransfer ALT/SGPT 28 U/L (16-61); Albumin, Serum 3.5 g/dL (3.2-5.0); Alkaline Phosphatase 98 U/L (45-117); Anion Gap 6 (5-15); BUN 17 mg/dL (7-18); BUN/Creat Ratio 13.3 RATIO (10-20); Calcium,Total 8.6 mg/dL (8.5-10.1); Chloride 107 mmol/L (98-107); Creatinine, Serum 1.28 mg/dL (0.70-1.30); EST Glomerular Filtration Rate 59 mL/min (>60); Est Glom Filt Rate - Afr Amer 71 mL/min (>60); Globulin 4.5 g/dL (2.2-4.2); Glucose 95 mg/dL (74-106); Potassium 3.8 mmol/L (3.5-5.1); Sodium Level 140 mmol/L (136-145)
== END ==
PROVIDERS: PCP Family Medicine; Referring Provider Family Medicine; Visit Provider Family Medicine
DX: Z01.818 Encounter for other preprocedural examination (principal)
CPT/HCPCS: 36415; 80053; 85025

== ENCOUNTER 2020-07-02 09:49 | Day surgery (SDC) | payer MEDICARE, SELFPAY ==
[2020-05-31 11:29] VITALS: BMI 33.0
[2020-07-02] VITALS (7 sets, daily range): BP systolic 123–138; BP diastolic 74–81; PULSE 55–65; RESP 14–18; TEMP 36.1–36.9; O2SAT 93–98; BMI 33.1
[2020-07-02] MEDS: Lactated Ringers 1,000 ML 100 ML IV (10:34)
--- NOTE | 2020-07-02 11:00 | RAD_ITS ---
STUDY: X-RAY - RIGHT FOOT CLINICAL: Male, 70 years old. None provided TECHNIQUE: 13 view(s) of the foot. COMPARISON: None. FINDINGS: Intraoperative spot fluoroscopy imaging of the right foot. Total fluoroscopy time was 16 seconds. Please see the performing physician''s report for further details. RAD/Foot min 3 Views IMPRESSION: As above Electronically Signed: Erich Hall DO at 8:15 EST Tel , Service support ,
[2020-07-02] MEDS: Bupivacaine Mpf 0.5% 30 ML VIAL (11:28)
--- NOTE | 2020-07-02 11:30 | BON_PTH ---
PATIENT: SHIVANI DENSON LOC: [facility] U#:[id number] AGE/SX: 70/M ROOM: RE07/02/[address]: Dr. Erickson Painter DPM : 1950 BED: DIS: 07/02/2020 SPEC #: [id number] RECD: 07/02/20 14:45 STATUS: ETHEL [place]hanna #: [id number] ANNA: 07/02/20 11:[address]: Erickson Painter DEPT: SURGICAL PATHOLOGY RECD BY: Raisa Pfeiffer ENTERED: 07/05/20 07:24 SP TYPE: Bone OTHR DR: Dr. Kait Ferrera MD Tissues: Foot, NOS Procedures: Decalcification bone/plaque Surgery Specimen Level III HEADER OPERATION: Bone biopsy, foot PRE-OP DIAGNOSIS: Charcot/arthritis of right midfoot TISSUE SUBMITTED: Right midfoot bone MICROSCOPIC DIAGNOSIS Right midfoot bone: Pieces of bone and attached fibroconnective and fibroadipose tissue with reactive changes. AM:angela 07/09/20 MICROSCOPIC DESCRIPTION Slides are reviewed. GROSS DESCRIPTION Received in fixative is one container labeled with the patient's name and designated right midfoot bone. The specimen consists of multiple irregular fragments of white to light bolivar bone that in aggregate measure 2.2 x 2 x 0.2 cm. The specimen is totally submitted in one cassette after decalcification. / AM:angela 06/04/20 TC:5 CPT: 98236, 35277
[2020-07-02] MEDS: Cefazolin 2 GM in 0.9% Normal Saline 100 ML IV (11:42)
--- NOTE | 2020-07-02 11:55 | PCM.DC.POD ---
Discharge Diet: Light diet - advance as tolerated Discharge Activity: May Not Drive Weight Bearing Status: - - Limit weight on right foot, use CAM Walker boot when on foot Keep extremity elevated above heart level: Right Leg - Keep right foot elevated with pillows as much as possible. Call your doctor if your incision/area has: Continuous Slow Oozing, Sudden Increased Bleeding, Foul Smelling Discharge Call your doctor if you observe: Fever of 101 or Higher, Shortness of breath, Chest pain, Calf discomfort, Uncontrolled pain Cleanse incision/area with: Do not get Incision Wet, Keep Dressing Clean & Dry, - - Keep dressing/bandage on right foot clean, dry and intact until Sunday. On Sunday07/05/2020 start with daily dressing/bandage changes - cleanse with normal soap and water (no soaking), apply betadine (providone-iodine) solution to suture/incision sites, apply overlying dry gauze and billy bandage. Allergies/Adverse Reactions: Allergies gluten Allergy (Verified 06/25/20 10:16) Food Allergy peanut Allergy (Verified 06/25/20 10:16) Food Allergy yeast, dried [yeast] Allergy (Verified 06/25/20 10:16) Food Allergy environmental Allergy (Uncoded 06/25/20 10:16) PT UNSURE OF REACTION Medications to take at Discharge Multivitamins,Ther W-Minerals [Multivitamin With Minerals ([facility])] 1 tab PO DAILY 05/17/15 Cranberry 4,200 mg PO DAILY 07/07/15 Montelukast [Singulair] 10 mg PO DAILY 07/07/15 risedronate 150 mg tablet 100 mg PO QMONTH 07/10/18 cholecalciferol (vitamin D3) 25 mcg (1,000 unit) capsule 2,000 unit PO DAILY 08/14/18 tiotropium bromide 1.25 mcg/actuation mist for inhalation 2 puff INHALATION DAILY #4 g 10/29/19 Azelastine/Fluticasone [Azelastin-Flutic 137-50Mcg Spr] 2 puff INHALATION DAILY 03/23/20 Budesonide/Formoterol 160/4.5 [Symbicort] 2 puff INHALATION DAILY 03/23/20 leflunomide 10 mg tablet 10 mg PO DAILY #10 tab 05/31/20 Fluticasone 0.05% [Flonase Nasal [place]] 2 spray NASAL DAILY 06/25/20 Hydrocodone/Acetaminophen [[place] 5-325 Tablet] 1 - 2 ea PO Q6H PRN PRN 3 Days #15 tab 07/02/20 The following prescriptions were given: Hydrocodone/Acetaminophen [[place] 5-325 Tablet] 1 - 2 ea PO Q6H PRN PRN 3 Days #15 tab PRN Reason: Pain Score 4-10 Prescription Printed Primary Care Physician: Kait Ferrera MD [Primary Care Provider] - Test Results: Test results from this visit will be discussed in further detail at your follow-up appointment, if applicable. Please Follow Up With: Erickson Painter DPM When: As scheduled on July 12 at office, sooner if needed.
--- NOTE | 2020-07-02 12:03 | OP.PCM_ITS ---
Report of Operation Date of Procedure: 07/02/20 Pre-Operative Diagnosis: Dislocation/Subluxation of midfoot/tarsometatarsal joint, charcot neuroarthropathy/Arthritis midfoot/tarsometatarsal joint right foot Post-Operative Diagnosis: Same Surgery/Procedure Performed:: Bone biopsy right midfoot/tarsometatarsal joint Type of Anesthesia:: Local MAC Specimen's removed: Bone from right midfoot/tarsometatarsal joints right foot sent to microbiology and pathology Estimated Blood Loss (mL): 1mL Description of Procedure: Indications: This is a 70 year old who has chronic right foot pain. There are significant degenerative changes to the midfoot consistent with rheumatoid arthritis as well as charcot neuroarthropathy. Patient had history of right 2nd toe infection and partial amputation earlier this year. There is also concern of possible gout to the area. We have discussed tarsometatarsal/midfoot arthrodesis procedure however prior to proceeding we discussed doing a bone biopsy for further evaluation. The rationale of the procedure was discussed with him in detail, reviewed the possible benefits vs risks, and potential complications. Reviewed the goals and expectations. Reviewed alternative options. Reviewed estimated healing time/post operative course. The patient expressed understanding and agreement and elected to proceed forward with the biopsy for further evaluation at this time. The consent forms were reviewed with him, and he freely signed them. All of his questions were answered. Operative procedure: The patient was brought back into the operating room and was placed on the operating room in the supine position. The patient was secured to the operating room table with a safety belt around his waist. A well padded pneumatic ankle tourniquet was applied. The patient received general anesthesia per the anesthesia team. The right lower extremity was scrubbed, prepped, and draped in the usual aseptic fashion. A time out was performed and the patient was properly identified and the surgical plan was confirmed. Pre operative antibiotics were not given until after the biopsy taken. The right foot was exsanguinated using an Esmarch bandage and the right ankle pneumatic tourniquet was inflated to 250mmHg. Further attention was directed to the right foot. It was noted to have swelling, but no open lesions, no visible abscess, no cellulitis, no erythema, no necrosis, no blistering was present. Using a 15 scalpel blade a small less than 1cm linear longitudinal incision was made to the dorsal medial midfoot and another one overlying the dorsal lateral midfoot. Careful dissection was completed down through the subcutaneous tissue layer to the tarsometatarsal joints and midfoot joints and bones. Under the guidance of intra-operative flu oroscopy, and using the [place] bone biopsy tray, a bone biopsy was completed at these levels, being sure to obtain bone from the sites. The bone from these sites was noted to be white with some degenerative changes noted. These were sent to pathology and microbiology for further evaluation. There was no noted purulence, no visible abscess, no cellulitis, and no visible crystals noted. Fluoroscopic images of the biopsy sites were saved and placed in patient's chart. The sites were flushed out with copious amounts of normal saline solution. The skin was reapproximated using 3-0 Nylon. 23mL of 0.25% Bupivacaine was given as a local nerve block around the surgical site for pain control. A dressing was applied which consisted of Betadine soaked Adaptic, 4x4 gauze, Kerlix and billy bandage. The pneumatic tourniquet was deflated and there was immediate return of warmth and perfusion to the foot, CFT < 2 seconds to all toes and normal temperature gradient. Total tourniquet time was 14 minutes. 2g of IV ancef was given once the tourniquet was deflated. The patient tolerated the above procedure well and the anesthesia well with no complications. He was transported from the operating room to the recovery room with vital signs stable and in good condition. Post operative instructions were reviewed with patient and his today. Keep the dressing clean, dry and intact for 3 days, then change daily using Betadine soln and gauze dressing. Keep right foot protected in CAM Walker when ambulating, keep foot elevated as much as possible. A prescription for [place] 5mg/325mg 1 tab PO q 6 hours prn pain was provided for post operative pain control. He is to follow up within 1 week or sooner if needed. Grafts/Implants Used: None - Complications None
== END 2020-07-02 13:35 | disposition home or self-care (01) ==
LOC: SDC 09:50 → AC 09:50
PROVIDERS: PCP Family Medicine; Referring Provider Podiatrist; Visit Provider Podiatrist
PROC: (CPT 20240; principal; 2020-07-02 11:15)
DX: S93.324A Dislocation of tarsometatarsal joint of right foot, initial encounter (principal); S93.311A Subluxation of tarsal joint of right foot, initial encounter; M19.071 Primary osteoarthritis, right ankle and foot; G89.29 Other chronic pain; X58.XXXA Exposure to other specified factors, initial encounter; Y93.9 Activity, unspecified; Y92.9 Unspecified place or not applicable; Y99.9 Unspecified external cause status; Z20.828 Contact with and (suspected) exposure to other viral communicable diseases; M06.9 Rheumatoid arthritis, unspecified; Z85.46 Personal history of malignant neoplasm of prostate
CPT/HCPCS: 01480; 20240; 73630; 76000; 87015; 87070; 87075; 87102; 87116; 87176; 87205; 87206; 87426; 88304; 88305; 88311; C9803; J7120

== ENCOUNTER 2020-07-16 11:55 | Observation (INO) | payer MEDICARE, SELFPAY ==
[2020-07-02 10:18] VITALS: BMI 33.1
[2020-07-16] VITALS (15 sets, daily range): BP systolic 115–150; BP diastolic 68–95; PULSE 62–79; RESP 16–18; TEMP 36.3–36.9; O2SAT 90–98; BMI 33.3
[2020-07-16] MEDS: Lactated Ringers 1,000 ML 100 ML IV ×2 (06:38→17:15)
--- NOTE | 2020-07-16 07:30 | BON_PTH ---
PATIENT: SHIVANI DENSON LOC: [facility] U#:[id number] AGE/SX: 70/M ROOM: [facility] RE07/16/[address]: Dr. Byron Chow DO : 1950 BED: 1 DIS: 07/17/2020 SPEC #: [id number] RECD: 07/16/20 13:24 STATUS: ETHEL PRASANTH #: [id number] ANNA: 07/16/20 07:[address]: Erickson Painter DEPT: SURGICAL PATHOLOGY RECD BY: Raisa Pfeiffer ENTERED: 07/16/20 13:54 SP TYPE: Bone OTHR DR: Dr. Kait Ferrera MD Tissues: Bone of foot, NOS Procedures: Decalcification bone/plaque Surgery Specimen Level IV HEADER OPERATION: Foot fusion arthrodesis of midfoot and tarsometatarsal joint PRE-OP DIAGNOSIS: Dislocation/subluxation mid foot and tarsometatarsal joints, Charcot neuroarthroplasty/arthritis mid foot and tarsometatarsal joints TISSUE SUBMITTED: Debrided bone right foot MICROSCOPIC DIAGNOSIS Bone fragment, right foot, biopsy: Reactive and reparative change. AM:angela 07/21/20 MICROSCOPIC DESCRIPTION Slides are reviewed. GROSS DESCRIPTION Received in fixative is one container labeled with the patient's name and designated debrided bone right foot. The specimen consists of multiple fragments of bone and soft tissue that in aggregate measure 2.5 x 2.5 x 0.4 cm. The specimen is totally submitted in one cassette after decalcification. / SJ:angela 07/16/20 TC:5 CPT: 82775, 52053
--- NOTE | 2020-07-16 07:30 | RAD_ITS ---
STUDY: X-RAY - RIGHT FOOT CLINICAL: Male, 70 years old. foot fusion arthrodesis of mid foot and tarso metatarsal joints TECHNIQUE: 2 view(s) of the foot. COMPARISON: 07/02/2020 FINDINGS: 111 seconds of fluoroscopy of the right foot was utilized and operating room and 2 images are submitted for interpretation.. RAD/Foot min 3 Views IMPRESSION: Fluoroscopy during surgery. Electronically Signed: Russell Bowles MD at 10:17 EST Tel , Service support ,
[2020-07-16] MEDS: Cefazolin 2 GM in 0.9% Normal Saline 100 ML IV (07:33)
[2020-07-16] MEDS: Bupivacaine Mpf 0.5% 30 ML VIAL (11:40)
--- NOTE | 2020-07-16 12:03 | PCM.OPRPT ---
Report of Operation Date of Procedure: 07/16/20 Pre-Operative Diagnosis: Rheumatoid arthritis, Charcot neuroarthropathy, dislocation of midfoot/tarsometatarsal joint, right foot Post-Operative Diagnosis: Same Surgery/Procedure Performed:: Tarsometatarsal/Midfoot arthrodesis, right foot parking lot attendant: yes - Dr. Bette Amin Type of Anesthesia:: General, Local Specimen's removed: Bone from right midfoot/tarsometatarsal joints sent to pathology Description of Procedure: Indications: This is a 70 year old gentleman with chronic right foot pain. There is subluxation/dislocation of the medial tarsometatarsal and midfoot joints. He has rheumatoid arthritis, as well as some peripheral neuropathy. Pain is chronic and have been worsening, persist despite nonsurgical care - has been immobilized but symptoms persist. Pre operative xrays as well as MRI showed significant degnerative changes to the tarsometatarsal and midfoot joints. Pre operative biopsy was taken of the bone of the tarsometatarsal and midfoot area which had no growth and no evidence of infection. Patient has elected to proceed with surgical intervention - arthrodesis of the tarsometatarsal and midfoot joints. This was discussed with him in great detail, reviewed the procedures, as well as the rationale of the procedures with her in great detail. We discussed and reviewed the possible benefits vs risks/potential complications. The estimated healing/recovery time and protocol were reviewed with him in detail. Reviewed the goals and the expectations. He expressed understanding and agreement and elected to proceed forward with surgical intervention as noted above. The consent forms were reviewed with him and he freely signed them. All of his questions were answered. No guarantees were given or implied. He was cleared from medical standpoint to proceed with surgery. Operative Procedure: The patient was brought back into the operating room and was placed on the operating table in the supine position. Patient was carefully secured to the operating room table with a safety belt around the waist. A time out was performed and the patient was properly identified and the surgical plan was confirmed. The patient received IV antibiotic prophylaxis - 2g of Ancef. The patient received general anesthesia per the anesthesiologist. The patient also received a right lower extremity popliteal block per the anesthesia team in the pre operative holding area prior to the procedure. A well padded pneumatic tourniquet was applied around the right thigh. The right lower extremity was scrubbed, prepped, and draped in the usual aseptic fashion. Attention was directed to the right foot, there was noted to be instability to the medial tarsometatarsal and midfoot joints. The right foot was elevated for 3 minutes and the pneumatic tourniquet was inflated to 300mmHg. A linear longitudinal skin incision was medially along the medial 1st metatarsal cuneiform joint and over the naviculocuneiform joint medially. A second incision was made over the dorsal aspect of the foot in between the 2nd and 3rd tarsometatarsal joints and 2nd and 3rd naviculocuneiform joints. These were made using a 15 blade. Careful dissection was completed down to the joint capsules of the 1st metatarsal cuneiform joint, 1st naviculocuneiform joint, 2nd metatarsal cuneiform joint, 2nd naviculocuneiform joint, 3rd metatarsal cuneiform joint, and joint surfaces between the 2nd metatarsal - 1st cuneiform, 1st and 2nd cuneiforms, 2nd and 3rd cuneiforms, and 2nd / 3rd metatarsals, and they were incised using a 15 blade and partially reflected exposing the joint surfaces. There was noted to be significant degenerative changes consistent with chronic rheumatoid arthritis and charcot neuroarthropathy. There was no purulence, no necrosis, no visible abscess and no evidence of infection. All cartilage from the joint surfaces were debrided away and was removed down to bleeding bone using a sharp curette, being sure not to cause osteonecrosis. The site was flushed out with copious amounts of normal saline solution. The surfaces were fenestrated using a powered drill to aid fusion. The 1st metatarsal, 1st cuneiform, as well as the Lisfranc joint (1st cuneiform/2nd metatarsal base)and remaining fusion sites were allo reduced into normal position. The 1st cuneiform and 2nd metatarsal base reduction were held using a bone tenaculum. The site fusion sites were all fixated use rigid open reduction internal fixation, using 1 Arthrex medial column plate and a combination of locking and nonlocking screws. However, first a Arthrex cannulated partially threaded 3.5mm screw was placed across the 1st metatarsal cuneiform joint to obtain bone compression. An additional 4 hold Arthrex plate was applied dorsal across the 3rd tarsometatarsal fusion site using 3 locking screws and 1 nonlocking cortical screw. There was very good compression and bone to bone contract with the prepped fusion site in good alignment, both clinically and noted radiographically using c-arm fluoroscopy. The fusion site was rigid and very stable. Again, this was checked and confirmed with intraoperative fluoroscopy. The surgical site was flushed out with copious amounts of normal saline solution. Tissues were healthy and viable at this time. The subcutaneous tissue layers were reapproximated using 3-0 Vicryl and the skin was reapproximated using 3-0 Nylon. An additional 15 mL of a 0.5% Bupivacaine plain was given as a local block around the surgical site for further pain control per ok by the anesthesia team. The pneumatic tourniquet was deflated at 120 minutes there was immediate return of warmth and perfusion to the foot and to all toes on the foot with normal temperature gradient and CFT < 2 seconds to all toes once the tourniquet was deflated. The tourniquet was inflated again after 13 minutes after elevating the foot. It was up for an additional 40 minutes, at which time it was deflated again, and there again was immediate return of warmth and perfusion to the foot and to all toes on the foot with normal temperature gradient and CFT < 2 seconds to all toes once the tourniquet was deflated. Hemostasis was achieved. A dressing was applied which consisted of Betadine soaked adaptic, 4x4 gauze, Kerlix, and an billy bandage. A well padded below knee posterior splint was applied secured with billy bandages. Of note, all vital structures including all vital neurovascular and tendon structures were properly identified, protected, and retracted as necessary throughout the above operative procedures. The anterior tibial tendon was left intact. The patient tolerated the above operative procedures well at the anesthesia well with no complications. The patient was transported from the operating room to the recovery room with vital signs stable and in good condition. Post operative orders were placed. Post operative instructions were reviewed. No weightbearing right foot, keep foot elevated for at least 50 minutes of every hour, keep dressing and splint clean, dry and intact. Patient will be admitted for post op pain control and observation. Post operative right foot xrays were obtained (DP, Oblique, and lateral foot) - there was again noted to be medial tarsometatarasl and midfoot arthrodesis in good position, with joint surfaces in good alignment and good bone to bone contract with intact hardware; no acute problems or complications seen. Grafts/Implants Used: Cancellous bone chips, Arthrex plates and screws - Complications None
--- NOTE | 2020-07-16 12:06 | RAD_ITS ---
STUDY: X-RAY - RIGHT FOOT CLINICAL: Male, 70 years old. POST OP TECHNIQUE: 3 view(s) of the foot. COMPARISON: 07/02/2020 FINDINGS: Normal talus, calcaneus, and tarsal bones. Status post Lisfranc joint arthrodesis with extensive hardware. Normal metatarsi. Normal metatarsophalangeal joint of the great toe. Normal tibial and fibular sesamoid bones. Normal interphalangeal joint of the great toe. Normal phalanges of the great toe. Normal second through fifth metatarsophalangeal joints. Partially amputation of the second digit. The soft tissue structures are unremarkable. RAD/Foot min 3 Views IMPRESSION: Status post Lisfranc joint arthrodesis with extensive hardware. Electronically Signed: Russell Bowles MD at 7:54 EST Tel , Service support ,
--- NOTE | 2020-07-16 14:16 | PCM.PROGNOTE ---
<Sarahy Anne LINEMARKER - Last Filed: 07/16/20 14:43> Subjective: Patient seen and examined. Hospitalist services consulted for medical management. Patient states he has been off of his immunosuppressive medication for 2 days prior to surgery. States pain is currently well controlled. Denies fever, chills. Denies other symptoms or complaints. - Physical Exam Vitals/I&O's: Vital Signs Temp Pulse Resp BP Pulse Ox 98.3 F 79 16 134/86 H 98 07/16/20 14:01 07/16/20 14:01 07/16/20 14:01 07/16/20 14:01 07/16/20 14:01 Oxygen Flow Rate (L/min) 33 Oxygen Delivery Method Room Air Weight: 232 lb 5.875 oz Body Mass Index (BMI) 33.3 General: Alert, Oriented x3, Cooperative HEENT: Atraumatic, PERRLA, EOMI, Normocephalic Neck: Supple, No JVD, Negative Carotid Bruits Lungs: Clear to auscultation, Normal air movement Cardiovascular: Regular rate, No murmurs Abdomen: Bowel Sounds Present, Soft, Non Tender Extremities: No clubbing, No cyanosis, No edema, Capillary Refill Less than 3 Seconds Skin: No rashes, No breakdown, - - Right lower extremity postop dressing intact Musculoskeletal: No Tenderness to Palpation of Joints or Extremities Neurological: Cranial nerves II-XII grossly intact, Neuro grossly intact Psych/Mental Status: Normal Affect, Appropriate Microbiology Past 72 Hours 07/14/20 14:07 Interface Orders SARS-CoV-2 Antigen (Rapid) - Final Current Medications Hydrocodone Bitart/Acetaminophen (Hydrocodone Bitartrate/Apap 5/325 Tablet) 1 - 2 tablet PO Q6H PRN PRN PRN Reason: Pain Score 1-5 Enoxaparin Sodium (Enoxaparin 40 Mg/0.4 Ml Syringe) 40 mg SC DAILY@0600 [facility] Hydromorphone HCl (Hydromorphone 1 Mg/Ml Syringe) 1 mg IV Q4H PRN PRN PRN Reason: Pain Score 6-10 Lactated Ringer's () 1,000 mls @ 100 mls/hr IV .Q10H [facility] Last Admin: 07/16/20 06:38 Dose: 100 mls/hr Documented by: Cefazolin Sodium () 1 gm in 50 mls @ 150 mls/hr IV Q8 [facility] Stop: 07/17/20 06:19 Ondansetron HCl (Ondansetron 4 Mg/2 Ml Vial) 4 mg IV Q8H PRN PRN PRN Reason: Nausea Sodium Chloride (0.9% Nacl Peripheral Flush Adult/Peds) 5 - 15 ml IV UD PRN PRN Reason: SALINE FLUSH Medical Necessity - Tobacco Use Smoking Status: Never smoker Assessment/Plan All Active Problems (Last Reviewed 01/29/20 @ 13:56 by Trisha Zheng) Colon polyps (Acute) History of left heart catheterization (Resolved 07/23/18) History of carpal tunnel release (Resolved) History of inguinal hernia repair (Resolved) H/O prostatectomy (Resolved) History of lithotripsy (Resolved) History of total knee arthroplasty (Resolved) History of rhinoplasty (Resolved) History of tonsillectomy (Resolved) History of ventral hernia repair (Resolved) Abnormal nuclear stress test (Resolved) Chest pain (Resolved) 1. Rheumatoid arthritis/osteoarthritis-on leflunomide. As needed pain regimen. Leflunomide has been on hold for 2 days. Resume per podiatry discretion. 2. Charcot neuroarthropathy, dislocation of midfoot/transmetatarsal joint right foot-status post tarsometatarsal/midfoot arthrodesis right foot by Dr. Painter 07/16/2020. Management per podiatry. PT/OT. 3. Chronic mild persistent intermittent asthma-as needed albuterol aerosol. 4. KEZIA-on BiPAP. 5. History of prostate cancer DVT prophylaxis- Lovenox sc This patient was seen by FERCHO Cochran under the supervision of Dr. Vyas. <Lady Vyas - Last Filed: 07/16/20 17:32> Subjective: Pt to OR today for Midfoot fusion with Dr. Painter. Has a H/O RA, asthma, obesity, GERD, prostate cancer and KEZIA. Feels ok at this time. Has a block and pain is well controlled. Has h/o B TKA with revision on R. - Physical Exam Vitals/I&O's: Vital Signs Temp Pulse Resp BP Pulse Ox 97.6 F L 65 16 126/74 H 94 07/16/20 14:34 07/16/20 14:34 12/04/20 14:34 07/16/20 14:34 07/16/20 17:10 Oxygen Flow Rate (L/min) 2 Oxygen Delivery Method Nasal Cannula Weight: 105.4 kg Body Mass Index (BMI) 33.3 Intake and Output for Last 24 Hours 07/14/20 07/15/20 07/16/20 23:59 23:59 23:59 Intake Total 1000 / 1000 Balance 1000 / 1000 General: Alert, Oriented x3, Cooperative, No apparent distress, Well developed, Well nourished, - - WF appears younger than stated age, comfortable and nsg at bedside HEENT: Atraumatic, PERRLA, EOMI, Normocephalic Neck: Supple, Trachea Midline, Thyroid Normal Size and Texture Lungs: Clear to auscultation, Normal air movement, No rhonchi, No wheeze, No rales Cardiovascular: Regular rate, Regular Rhythm, Normal S1, Normal S2, No murmurs, No Ectopic Activity, No rub noted, No Gallop Abdomen: Bowel Sounds Present, Soft, Non Tender, Non-Distended Extremities: No clubbing, No cyanosis, No edema, Capillary Refill Less than 3 Seconds, Peripheral Pulses Normal, - - R LE in cast Neurological: Cranial nerves II-XII grossly intact, Neuro grossly intact Psych/Mental Status: Normal Affect, Appropriate Microbiology Past 72 Hours 07/14/20 14:07 Interface Orders SARS-CoV-2 Antigen (Rapid) - Final Current Medications Hydrocodone Bitart/Acetaminophen (Hydrocodone Bitartrate/Apap 5/325 Tablet) 1 - 2 tablet PO Q6H PRN PRN PRN Reason: Pain Score 1-5 Albuterol Sulfate (Albuterol 2.5 Mg/3 Ml Vial.Neb.) 2.5 mg INHALATION Q2H PRN PRN PRN Reason: SHORTNESS OF BREATH Cholecalciferol (Cholecalciferol (Vit D3) 1,000 Unit (25mcg)) 2,000 unit PO DAILY [facility] Enoxaparin Sodium (Enoxaparin 40 Mg/0.4 Ml Syringe) 40 mg SC DAILY@0600 [facility] Hydromorphone HCl (Hydromorphone 1 Mg/Ml Syringe) 1 mg IV Q4H PRN PRN PRN Reason: Pain Score 6-10 Lactated Ringer's () 1,000 mls @ 100 mls/hr IV .Q10H [facility] Last Admin: 07/16/20 17:15 Dose: 100 mls/hr Documented by: Cefazolin Sodium () 1 gm in 50 mls @ 150 mls/hr IV Q8 JERICHO Stop: 07/17/20 06:19 Last Admin: 07/16/20 17:17 Dose: 150 mls/hr Documented by: Montelukast Sodium (Montelukast 10 Mg Tablet) 10 mg PO DAILY [facility] Ondansetron HCl (Ondansetron 4 Mg/2 Ml Vial) 4 mg IV Q8H PRN PRN PRN Reason: Nausea Sodium Chloride (0.9% Nacl Peripheral Flush Adult/Peds) 5 - 15 ml IV UD PRN PRN Reason: SALINE FLUSH Sodium Chloride (0.9% Saline Lock 10 Ml Syringe) 10 - 40 ml IV UD PRN PRN Reason: SALINE FLUSH Assessment/Plan I agree with the above and the following is a reflection of my independent history and physical exam ASSESSMENT R Midfoot fusion 2/2 severe Charcot foot RA OA Asthma KEZIA H/O prostate cancer GERD PUD Obesity PLAN -add Senna -restart immunosuppression when ok with surgery -start home inhalers as able -d/c IVF -continue home meds -DVT prophy per surgery -BIPAP at night--> pt has home unit
--- NOTE | 2020-07-16 16:19 | HP.PCM_ITS ---
History of Present Illness Date of Admission: 07/16/20 Chief Complaint: Right foot pain, s/p midfoot/tarsometatarsal arthrodesis The patient is a 70 year old gentleman with hx of rheumatoid arthritis, asthma and other medical problems had right foot surgery this morning and is being admitted for pain management and observation. Procedure went well with no complications. Patient is resting comfortably in bed with no complaints at this time. Past Medical History Past Medical History (Chronic Problems): Chronic Problems (Last Reviewed 01/29/20 @ 13:56 by Trisha Zheng) Left leg swelling (Chronic) Leg edema, left (Chronic) Chronic venous insufficiency (Chronic) Varicose veins with inflammation (Chronic) Peripheral neuropathy (Chronic) Osteopenia (Chronic) History of prostate cancer (Chronic) Asthma (Chronic) Obesity (BMI 30.0-34.9) (Chronic) Hyperlipidemia (Chronic) Kidney stones (Chronic) Asthma (Chronic) Rheumatoid arthritis (Chronic) Obesity (Chronic) Gastric ulcer (Chronic) DDD (degenerative disc disease), cervical (Chronic) Osteoarthritis (Chronic) Osteopenia (Chronic) BPH (benign prostatic hyperplasia) (Chronic) GERD (gastroesophageal reflux disease) (Chronic) KEZIA treated with BiPAP (Chronic) On BiPAP 10/6 Moderate persistent allergic asthma 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) Hypersomnia (Chronic) Asbestos exposure (Chronic) Dyspnea on exertion (Chronic) Prostate cancer (Chronic) Medical History: Medical History (Last Reviewed 01/29/20 @ 13:56 by Trisha Zheng) Kidney stones (Chronic) N20.0 Asthma (Chronic) J45.909 Rheumatoid arthritis (Chronic) M06.9 Obesity (Chronic) E66.9 Gastric ulcer (Chronic) K25.9 DDD (degenerative disc disease), cervical (Chronic) M50.30 Osteoarthritis (Chronic) M19.90 Osteopenia (Chronic) M85.80 BPH (benign prostatic hyperplasia) (Chronic) N40.0 GERD (gastroesophageal reflux disease) (Chronic) K21.9 KEZIA treated with BiPAP (Chronic) G47.33 On BiPAP 10/6 Moderate persistent allergic asthma 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) J45.40 Hypersomnia (Chronic) G47.10 Asbestos exposure (Chronic) Z77.090 Prostate cancer (Chronic) C61 Allergies gluten Allergy (Verified 07/12/20 15:11) Food Allergy peanut Allergy (Verified 11/30/20 15:11) Food Allergy yeast, dried [yeast] Allergy (Verified 07/12/20 15:11) Food Allergy environmental Allergy (Uncoded 07/12/20 15:11) PT UNSURE OF REACTION Home Medications: Ambulatory Orders Medication Instructions Recorded Multivitamins,Ther W-Minerals 1 tab PO DAILY 05/17/15 [Multivitamin With Minerals ([facility])] Cranberry 4,200 mg PO DAILY 07/07/15 Montelukast [Singulair] 10 mg PO DAILY 07/07/15 risedronate 150 mg tablet 100 mg PO QMONTH 07/10/18 cholecalciferol (vitamin D3) 25 2,000 unit PO DAILY 08/14/18 mcg (1,000 unit) capsule tiotropium bromide 1.25 2 puff INHALATION DAILY #4 g 10/29/19 mcg/actuation mist for inhalation Azelastine/Fluticasone 2 puff INHALATION DAILY 03/23/20 [Azelastin-Flutic 137-50Mcg Spr] Budesonide/Formoterol 160/4.5 2 puff INHALATION DAILY 03/23/20 [Symbicort] Fluticasone 0.05% [Flonase Nasal 2 spray NASAL DAILY 06/25/20 [place]] Povidone-Iodine [Betadine] 237 ml TP DAILY #1 bottle 07/02/20 Leflunomide 10 mg PO DAILY 07/12/20 Surgical History: Surgical History (Last Reviewed 01/29/20 @ 13:56 by Trisha Zheng) History of left heart catheterization (Resolved) Onset Date: 07/23/18 Z98.890 05/01/97 History of carpal tunnel release (Resolved) Z98.890 History of inguinal hernia repair (Resolved) Z98.890, Z87.19 H/O prostatectomy (Resolved) Z90.79 History of lithotripsy (Resolved) Z98.890 History of total knee arthroplasty (Resolved) Z96.659 History of rhinoplasty (Resolved) Z98.890 History of tonsillectomy (Resolved) Z90.89 History of ventral hernia repair (Resolved) Z98.890, Z87.19 Surgical History: - - Patient underwent endovenous laser ablation of the left great saphenous vein in the left small saphenous vein in 2005. He is undergone left knee replacement surgery x2. He also has undergone right knee replacement surgery. Prostatectomy has been performed in the past. He has had bilateral inguinal hernia repair. He has had surgery on his right second toe. Psychiatric History: No pertinent psych hx Smoking Status: Never smoker - *Family History Maternal Family History: Family History (Last Reviewed 01/29/20 @ 13:56 by Trisha Zheng) Mother Heart disease Sister Hypertension History Items: No pertinent history Paternal Family History: Family History (Last Reviewed 01/29/20 @ 13:56 by Trisha Zheng) Mother Heart disease Sister Hypertension History Items: No pertinent history Review of Systems Constitutional: Denies: Chills, Fever Gastrointestinal: Denies: Nausea, Vomiting VTE Information - Inpt Only VTE Present on Admission: No VTE Mechan Device Prophylaxis: SCD's - Physical Exam Vitals/I&O's: Vital Signs Temp Pulse Resp BP Pulse Ox 97.6 F L 65 16 126/74 H 95 07/16/20 14:34 07/16/20 14:34 07/16/20 14:34 07/16/20 14:34 07/16/20 14:34 Oxygen Flow Rate (L/min) 2 Oxygen Delivery Method Nasal Cannula Weight: 105.4 kg Body Mass Index (BMI) 33.3 General: Alert, Oriented x3, Cooperative, No apparent distress Extremities: Capillary Refill Less than 3 Seconds, No Calf Tenderness, - - Dressing and splint right foot is clean, dry and intact with no strikethrough. Microbiology Past 72 Hours 07/14/20 14:07 Interface Orders SARS-CoV-2 Antigen (Rapid) - Final Current Medications Hydrocodone Bitart/Acetaminophen (Hydrocodone Bitartrate/Apap 5/325 Tablet) 1 - 2 tablet PO Q6H PRN PRN PRN Reason: Pain Score 1-5 Albuterol Sulfate (Albuterol 2.5 Mg/3 Ml Vial.Neb.) 2.5 mg INHALATION Q2H PRN PRN PRN Reason: SHORTNESS OF BREATH Cholecalciferol (Cholecalciferol (Vit D3) 1,000 Unit (25mcg)) 2,000 unit PO DAILY [facility] Enoxaparin Sodium (Enoxaparin 40 Mg/0.4 Ml Syringe) 40 mg SC DAILY@0600 [facility] Hydromorphone HCl (Hydromorphone 1 Mg/Ml Syringe) 1 mg IV Q4H PRN PRN PRN Reason: Pain Score 6-10 Lactated Ringer's () 1,000 mls @ 100 mls/hr IV .Q10H [facility] Last Admin: 07/16/20 06:38 Dose: 100 mls/hr Documented by: Cefazolin Sodium () 1 gm in 50 mls @ 150 mls/hr IV Q8 JERICHO Stop: 07/17/20 06:19 Montelukast Sodium (Montelukast 10 Mg Tablet) 10 mg PO DAILY [facility] Ondansetron HCl (Ondansetron 4 Mg/2 Ml Vial) 4 mg IV Q8H PRN PRN PRN Reason: Nausea Sodium Chloride (0.9% Nacl Peripheral Flush Adult/Peds) 5 - 15 ml IV UD PRN PRN Reason: SALINE FLUSH Sodium Chloride (0.9% Saline Lock 10 Ml Syringe) 10 - 40 ml IV UD PRN PRN Reason: SALINE FLUSH Assessment/Plan All Active Problems (Last Reviewed 01/29/20 @ 13:56 by Trisha Zheng) Colon polyps (Acute) History of left heart catheterization (Resolved 07/23/18) History of carpal tunnel release (Resolved) History of inguinal hernia repair (Resolved) H/O prostatectomy (Resolved) History of lithotripsy (Resolved) History of total knee arthroplasty (Resolved) History of rhinoplasty (Resolved) History of tonsillectomy (Resolved) History of ventral hernia repair (Resolved) Abnormal nuclear stress test (Resolved) Chest pain (Resolved) Right foot Rheumatoid arthritis, charcot neuroarthropathy dislocation of tarsometatarsal and midfoot joints s/p arthrodesis on 07/16/2020 Rheumatoid arthritis Asthma KEZIA and other medical problems Patient will be admitted for pain management and observation. Pain management: Dilaudid 1mg q 4 hr prn pain, [place] 1-2 tabs PO q 6 hr prn pain Keep dressing clean, dry and intact. No weightbearing right foot. Keep right foot elevated. DVT Prophylaxis: Start Lovenox 40mg subcutaneous tomorrow. SCD left leg. Consult to hospitalist, appreciate assistance. Possible d/c home tomorrow.
[2020-07-16] MEDS: Cefazolin 1 GM/50 ML BAG IV ×2 (17:17→21:08)
[2020-07-16] MEDS: Senna Tablet 2 TABLET PO (21:08)
[2020-07-17 03:41] VITALS: BP 126/79; PULSE 80; RESP 18; TEMP 37.5; O2SAT 94
[2020-07-17] MEDS: Cefazolin 1 GM/50 ML BAG IV (05:28)
[2020-07-17] MEDS: Enoxaparin 40 MG/0.4 ML Syringe SC (05:29)
[2020-07-17 07:14] LABS: Absolute Lymphocyte Count 1.42 X10^3/uL (0.83-4.51); Absolute Neutrophil Count 7.9 X10^3/uL (2.0-7.7); Basophil# 0.02 X10^3/uL; Basophil% 0.2 % (0-1); Hematocrit 41.5 % (40-54); Hemoglobin 13.9 g/dL (13.0-16.5); Lymphocyte # 1.42 X10^3/ul (4.0); Lymphocyte % 13.5 % (19-41); Mean Corp Hgb Conc 33.5 g/dL (32-36); Mean Corpuscular Hgb 32.9 pg (27.0-32.0); Mean Corpuscular Volume 98.1 fL (80-94); Mean Platelet Vol. 8.4 fl (6.2-12.0); Monocyte% 10.5 % (0-10); NRBC Flagged by Analyzer 0 % (0-5); Neutrophil # 7.89 X10^3/uL (2.7-7.7); Neutrophil % 75.1 % (47-70); Platelet Count 240 K/mm3 (150-450); RBC Distribution Width SD 46.3 fl (35.1-43.9); Red Blood Count 4.23 M/mm3 (4.6-6.2); White Blood Count 10.5 K/mm3 (4.4-11.0)
[2020-07-17 08:26] LABS: Anion Gap 7 (5-15); BUN 15 mg/dL (7-18); BUN/Creat Ratio 14.7 RATIO (10-20); Calcium,Total 8.1 mg/dL (8.5-10.1); Chloride 103 mmol/L (98-107); Creatinine, Serum 1.02 mg/dL (0.70-1.30); EST Glomerular Filtration Rate 76 mL/min (>60); Est Glom Filt Rate - Afr Amer 92 mL/min (>60); Estimated Creatinine Clearance 68.59 ml/min; Glucose 116 mg/dL (74-106); Potassium 3.7 mmol/L (3.5-5.1); Sodium Level 137 mmol/L (136-145)
--- NOTE | 2020-07-17 10:23 | DCINST_ITS ---
Discharge Diet: Light diet - advance as tolerated Discharge Activity: May Not Drive Weight Bearing Status: No weight bearing, - - Also ice behind right knee for 15 minutes 3-4 times a day Keep extremity elevated above heart level: Right Leg - Keep right foot elevated with pillows for at least 50 minutes of every hour. Keep heel offloaded/floated. Call your doctor if your incision/area has: Continuous Slow Oozing, Sudden Increased Bleeding, Foul Smelling Discharge Call your doctor if you observe: Fever of 101 or Higher, Coldness, Increased Pain, Shortness of breath, Chest pain, Increased palpitations (irregular heartbeat), Calf discomfort, Uncontrolled pain Cleanse incision/area with: Do not get Incision Wet, Keep Dressing Clean & Dry Allergies/Adverse Reactions: Allergies gluten Allergy (Verified 07/12/20 15:11) Food Allergy peanut Allergy (Verified 07/12/20 15:11) Food Allergy yeast, dried [yeast] Allergy (Verified 07/12/20 15:11) Food Allergy environmental Allergy (Uncoded 07/12/20 15:11) PT UNSURE OF REACTION Medications to take at Discharge Multivitamins,Ther W-Minerals [Multivitamin With Minerals ([facility])] 1 tab PO DAILY 05/17/15 Cranberry 4,200 mg PO DAILY 07/07/15 Montelukast [Singulair] 10 mg PO DAILY 07/07/15 risedronate 150 mg tablet 100 mg PO QMONTH 07/10/18 cholecalciferol (vitamin D3) 25 mcg (1,000 unit) capsule 2,000 unit PO DAILY 08/14/18 tiotropium bromide 1.25 mcg/actuation mist for inhalation 2 puff INHALATION DAILY #4 g 10/29/19 Azelastine/Fluticasone [Azelastin-Flutic 137-50Mcg Spr] 2 puff INHALATION DAILY 03/23/20 Budesonide/Formoterol 160/4.5 [Symbicort 160/4.5 Mcg Inhaler (SP)] 2 puff INHALATION DAILY 03/23/20 Fluticasone 0.05% [Flonase Nasal [place]] 2 spray NASAL DAILY 06/25/20 Leflunomide 10 mg PO DAILY 07/12/20 Rivaroxaban [Xarelto] 10 mg PO DAILY #30 tab 07/17/20 The following prescriptions were given: Rivaroxaban [Xarelto] 10 mg PO DAILY #30 tab Transmission Status: Received by [facility] Primary Care Physician: Kait Ferrera MD [Primary Care Provider] - Test Results: Test results from this visit will be discussed in further detail at your follow- up appointment, if applicable. Please Follow Up With: Erickson Painter, [place] - Call [facility] at [phone] Painter over weekend or after normal business hours, otherwise call office at [phone] as needed. When: next week in office as scheduled. Call sooner if needed.
[2020-07-17 10:30] VITALS: BP 110/69; PULSE 82; RESP 18; TEMP 37.1; O2SAT 93
[2020-07-17] MEDS: Montelukast 10 MG Tablet PO (10:47)
[2020-07-17] MEDS: Senna Tablet 2 TABLET PO (10:48)
[2020-07-17] MEDS: HYDROcodone Bitartrate/Apap 5/325 Tablet PO (10:50)
--- NOTE | 2020-07-17 12:27 | PN_ITS ---
Subjective: Patient relates he is doing well, no complaints, pain is controlled at this time. No complaints of fever, chills, nausea or vomiting. - Physical Exam Vitals/I&O's: Vital Signs Temp Pulse Resp BP Pulse Ox 98.8 F 82 18 110/69 93 07/17/20 10:30 07/17/20 10:30 07/17/20 10:30 07/17/20 10:30 07/17/20 10:30 Oxygen Flow Rate (L/min) 2 Oxygen Delivery Method Room Air Weight: 105.4 kg Body Mass Index (BMI) 33.3 Intake and Output for Last 24 Hours 07/15/20 07/16/20 07/17/20 23:59 23:59 23:59 Intake Total 1370 / 1670 600 / 600 Output Total 400 / 1400 1350 / 1350 Balance 970 / 270 -750 / -750 General: Alert, Oriented x3, Cooperative, No apparent distress Extremities: No cyanosis, Capillary Refill Less than 3 Seconds, No Calf Tenderness, - - Dressing right foot/ankle/leg clean, dry and intact, CFT < 2 seconds to all toes, patient able to dorsiflex and plantarflex toes, able to dorsiflex/invert/annie/plantarflex foot, no suspicion for infection or DVT at this time. Psych/Mental Status: Normal Affect, Appropriate, Alert and oriented to time, place, person, mood and affect Microbiology Past 72 Hours 07/14/20 14:07 Interface Orders SARS-CoV-2 Antigen (Rapid) - Final Laboratory Results 07/17/20 06:51: WBC 10.5, RBC 4.23 L, Hgb 13.9, Hct 41.5, MCV 98.1 H, MCH 32.9 H , MCHC 33.5, RDW Std Deviation 46.3 H, RDW Coeff of José Luis 13.0, Plt Count 240, MPV 8.4, Immature Gran % (Auto) 0.700, Neut % (Auto) 75.1 H, Lymph % (Auto) 13.5 L, [place] % (Auto) 10.5 H, Eos % (Auto) 0.0, Baso % (Auto) 0.2, Absolute Neuts (auto) 7.9 H, Absolute Lymphs (auto) 1.42, Nucleated RBC % 0 07/17/20 06:51: Sodium 137, Potassium 3.7, Chloride 103, Carbon Dioxide 27.0, Anion Gap 7, BUN 15, Creatinine 1.02, Estim Creat Clear Calc 68.59, Est GFR (MDRD) Af Amer 92, Est GFR (MDRD) Non-Af 76, BUN/Creatinine Ratio 14.7, Glucose 116 H, Calcium 8.1 L Current Medications Hydrocodone Bitart/Acetaminophen (Hydrocodone Bitartrate/Apap 5/325 Tablet) 1 - 2 tablet PO Q6H PRN PRN PRN Reason: Pain Score 1-5 Last Admin: 07/17/20 10:50 Dose: 1 tablet Documented by: Albuterol Sulfate (Albuterol 2.5 Mg/3 Ml Vial.Neb.) 2.5 mg INHALATION Q2H PRN PRN PRN Reason: SHORTNESS OF BREATH Cholecalciferol (Cholecalciferol (Vit D3) 1,000 Unit (25mcg)) 2,000 unit PO DAILY [facility] Last Admin: 07/17/20 10:47 Dose: 2,000 unit Documented by: Enoxaparin Sodium (Enoxaparin 40 Mg/0.4 Ml Syringe) 40 mg SC DAILY@0600 [facility] Last Admin: 07/17/20 05:29 Dose: 40 mg Documented by: Hydromorphone HCl (Hydromorphone 1 Mg/Ml Syringe) 1 mg IV Q4H PRN PRN PRN Reason: Pain Score 6-10 Montelukast Sodium (Montelukast 10 Mg Tablet) 10 mg PO DAILY [facility] Last Admin: 07/17/20 10:47 Dose: 10 mg Documented by: Ondansetron HCl (Ondansetron 4 Mg/2 Ml Vial) 4 mg IV Q8H PRN PRN PRN Reason: Nausea Senna (Senna Tablet) 2 tablet PO BID [facility] Last Admin: 07/17/20 10:48 Dose: 2 tablet Documented by: Sodium Chloride (0.9% Nacl Peripheral Flush Adult/Peds) 5 - 15 ml IV UD PRN PRN Reason: SALINE FLUSH Sodium Chloride (0.9% Saline Lock 10 Ml Syringe) 10 - 40 ml IV UD PRN PRN Reason: SALINE FLUSH Medical Necessity - Tobacco Use Smoking Status: Never smoker Assessment/Plan All Active Problems (Last Reviewed 01/29/20 @ 13:56 by Trisha Zheng) Colon polyps (Acute) History of left heart catheterization (Resolved 07/23/18) History of carpal tunnel release (Resolved) History of inguinal hernia repair (Resolved) H/O prostatectomy (Resolved) History of lithotripsy (Resolved) History of total knee arthroplasty (Resolved) History of rhinoplasty (Resolved) History of tonsillectomy (Resolved) History of ventral hernia repair (Resolved) Abnormal nuclear stress test (Resolved) Chest pain (Resolved) Right foot Rheumatoid arthritis, charcot neuroarthropathy dislocation of tarsometatarsal and midfoot joints s/p arthrodesis on 07/16/2020 Rheumatoid arthritis Asthma KEZIA and other medical problems Patient for pain management and observation. Patient doing well, no suspicion of infection or DVT at this time. Pain management: Dilaudid 1mg q 4 hr prn pain - switch to [place] 1-2 tabs PO q 6 hr prn pain Applied new splint - well padded secured with billy bandages and heel offloaded. Keep dressing clean, dry and intact. No weightbearing right foot. Keep right foot elevated. DVT Prophylaxis: Start Lovenox 40mg subcutaneous tomorrow. d/c with Xarelto 10 mg PO once a day starting tomorrow. Consult to hospitalist, appreciate assistance with other medical problems; discussed with Sarahy Anne CNP and ok to d/c from hospitalist/medicine standpoint. Plan to d/c home this afternoon.
--- NOTE | 2020-07-17 13:08 | NURSING ---
Pt states that pain medication was effective.
--- NOTE | 2020-07-17 13:26 | PCM.PROGNOTE ---
Subjective: Patient seen and examined. Pain currently controlled. Hoping to return home today. Denies current complaints or concerns with going home. - Physical Exam Vitals/I&O's: Vital Signs Temp Pulse Resp BP Pulse Ox 98.8 F 82 18 110/69 93 07/17/20 10:30 07/17/20 10:30 07/17/20 10:30 07/17/20 10:30 07/17/20 10:30 Oxygen Flow Rate (L/min) 2 Oxygen Delivery Method Room Air Weight: 232 lb 5.875 oz Body Mass Index (BMI) 33.3 Intake and Output for Last 24 Hours 07/15/20 07/16/20 07/17/20 23:59 23:59 23:59 Intake Total 1370 / 1670 600 / 600 Output Total 400 / 1400 1350 / 1350 Balance 970 / 270 -750 / -750 General: Alert, Oriented x3, Cooperative HEENT: Atraumatic, PERRLA, EOMI, Normocephalic Neck: Supple, No JVD, Negative Carotid Bruits Lungs: Clear to auscultation, Normal air movement Cardiovascular: Regular rate, No murmurs Abdomen: Bowel Sounds Present, Soft, Non Tender Extremities: No clubbing, No cyanosis, No edema, Capillary Refill Less than 3 Seconds Skin: No rashes, No breakdown, - - Right foot dressing intact. Musculoskeletal: No Tenderness to Palpation of Joints or Extremities Neurological: Cranial nerves II-XII grossly intact, Neuro grossly intact Psych/Mental Status: Normal Affect, Appropriate Microbiology Past 72 Hours 07/14/20 14:07 Interface Orders SARS-CoV-2 Antigen (Rapid) - Final Laboratory Results 07/17/20 06:51: WBC 10.5, RBC 4.23 L, Hgb 13.9, Hct 41.5, MCV 98.1 H, MCH 32.9 H, MCHC 33.5, RDW Std Deviation 46.3 H, RDW Coeff of José Luis 13.0, Plt Count 240, MPV 8.4, Immature Gran % (Auto) 0.700, Neut % (Auto) 75.1 H, Lymph % (Auto) 13.5 L, Moffat % (Auto) 10.5 H, Eos % (Auto) 0.0, Baso % (Auto) 0.2, Absolute Neuts (auto) 7.9 H, Absolute Lymphs (auto) 1.42, Nucleated RBC % 0 07/17/20 06:51: Sodium 137, Potassium 3.7, Chloride 103, Carbon Dioxide 27.0, Anion Gap 7, BUN 15, Creatinine 1.02, Estim Creat Clear Calc 68.59, Est GFR (MDRD) Af Amer 92, Est GFR (MDRD) Non-Af 76, BUN/Creatinine Ratio 14.7, Glucose 116 H, Calcium 8.1 L Current Medications Hydrocodone Bitart/Acetaminophen (Hydrocodone Bitartrate/Apap 5/325 Tablet) 1 - 2 tablet PO Q6H PRN PRN PRN Reason: Pain Score 1-5 Last Admin: 07/17/20 10:50 Dose: 1 tablet Documented by: Albuterol Sulfate (Albuterol 2.5 Mg/3 Ml Vial.Neb.) 2.5 mg INHALATION Q2H PRN PRN PRN Reason: SHORTNESS OF BREATH Cholecalciferol (Cholecalciferol (Vit D3) 1,000 Unit (25mcg)) 2,000 unit PO DAILY [facility] Last Admin: 07/17/20 10:47 Dose: 2,000 unit Documented by: Enoxaparin Sodium (Enoxaparin 40 Mg/0.4 Ml Syringe) 40 mg SC DAILY@0600 [facility] Last Admin: 07/17/20 05:29 Dose: 40 mg Documented by: Hydromorphone HCl (Hydromorphone 1 Mg/Ml Syringe) 1 mg IV Q4H PRN PRN PRN Reason: Pain Score 6-10 Montelukast Sodium (Montelukast 10 Mg Tablet) 10 mg PO DAILY [facility] Last Admin: 07/17/20 10:47 Dose: 10 mg Documented by: Ondansetron HCl (Ondansetron 4 Mg/2 Ml Vial) 4 mg IV Q8H PRN PRN PRN Reason: Nausea Senna (Senna Tablet) 2 tablet PO BID [facility] Last Admin: 07/17/20 10:48 Dose: 2 tablet Documented by: Sodium Chloride (0.9% Nacl Peripheral Flush Adult/Peds) 5 - 15 ml IV UD PRN PRN Reason: SALINE FLUSH Sodium Chloride (0.9% Saline Lock 10 Ml Syringe) 10 - 40 ml IV UD PRN PRN Reason: SALINE FLUSH Medical Necessity - Tobacco Use Smoking Status: Never smoker Assessment/Plan All Active Problems (Last Reviewed 01/29/20 @ 13:56 by Trisha Zheng) Colon polyps (Acute) History of left heart catheterization (Resolved 07/23/18) History of carpal tunnel release (Resolved) History of inguinal hernia repair (Resolved) H/O prostatectomy (Resolved) History of lithotripsy (Resolved) History of total knee arthroplasty (Resolved) History of rhinoplasty (Resolved) History of tonsillectomy (Resolved) History of ventral hernia repair (Resolved) Abnormal nuclear stress test (Resolved) Chest pain (Resolved) 1. Rheumatoid arthritis/osteoarthritis-on leflunomide. Leflunomide held 2 days prior to surgery. Resume 07/18/2020. Follow-up with head of precision targeting as scheduled. 2. Charcot neuroarthropathy, dislocation of midfoot/transmetatarsal joint right foot-status post tarsometatarsal/midfoot arthrodesis right foot by Dr. Painter 07/16/2020. Management per podiatry. 3. Chronic mild persistent intermittent asthma-no exacerbation. 4. KEZIA-on BiPAP. 5. History of prostate cancer DVT prophylaxis- Lovenox wy Discharge planning: Okay for discharge from medical standpoint. This patient was seen by FERCHO Cochran under the supervision of Dr. Chow.
== END 2020-07-17 13:50 | disposition home or self-care (01) ==
LOC: SDC 12:15 → MS3 13:01
PROVIDERS: Admitting Provider Podiatrist; PCP Family Medicine; Referring Provider Podiatrist; Visit Provider Internal Medicine
PROC: (CPT 28730; principal; 2020-07-16 07:15)
DX: M14.671 Charcot's joint, right ankle and foot (principal); Z20.828 Contact with and (suspected) exposure to other viral communicable diseases; M06.9 Rheumatoid arthritis, unspecified; G47.33 Obstructive sleep apnea (adult) (pediatric); J45.20 Mild intermittent asthma, uncomplicated; M19.90 Unspecified osteoarthritis, unspecified site; K21.9 Gastro-esophageal reflux disease without esophagitis; E66.9 Obesity, unspecified; E78.5 Hyperlipidemia, unspecified; Z79.899 Other long term (current) drug therapy; Z79.51 Long term (current) use of inhaled steroids; Z85.46 Personal history of malignant neoplasm of prostate; Z68.33 Body mass index [BMI] 33.0-33.9, adult; I87.2 Venous insufficiency (chronic) (peripheral); N40.0 Benign prostatic hyperplasia without lower urinary tract symptoms; Z77.090 Contact with and (suspected) exposure to asbestos
CPT/HCPCS: 01480; 28730; 36415; 73630; 76000; 80048; 85025; 87426; 88304; 88305; 88311; 96361; 96365; 96366; 96372; 97162; 97166; 99218; 99251; C1713; C9803; J7120; G0378; G0379; G0463; J2405

== ENCOUNTER → 2020-08-10 14:22 | Outpatient (CLI) | payer MEDICARE, SELFPAY ==
[2020-07-16 14:34] VITALS: BMI 33.3
[2020-08-10 18:08] LABS: Absolute Lymphocyte Count 2.08 X10^3/uL (0.83-4.51); Absolute Neutrophil Count 4.9 X10^3/uL (2.0-7.7); Basophil# 0.06 X10^3/uL; Basophil% 0.7 % (0-1); Eosinophil# 0.22 X10^3/uL; Eosinophils% 2.7 % (0-5); Hematocrit 50.5 % (40-54); Hemoglobin 16.1 g/dL (13.0-16.5); Lymphocyte # 2.08 X10^3/ul (4.0); Lymphocyte % 25.7 % (19-41); Mean Corp Hgb Conc 31.9 g/dL (32-36); Mean Corpuscular Hgb 31.5 pg (27.0-32.0); Mean Corpuscular Volume 98.8 fL (80-94); Mean Platelet Vol. 8.6 fl (6.2-12.0); Monocyte# 0.76 X10^3/uL; Monocyte% 9.4 % (0-10); NRBC Flagged by Analyzer 0 % (0-5); Neutrophil % 60.8 % (47-70); Platelet Count 283 K/mm3 (150-450); RBC Distribution Width CV 13.4 % (11.6-14.6); RBC Distribution Width SD 49.2 fl (35.1-43.9); Red Blood Count 5.11 M/mm3 (4.6-6.2); White Blood Count 8.1 K/mm3 (4.4-11.0)
[2020-08-10 18:34] LABS: ALB/GLOB Ratio 0.9 RATIO (0.9-2.4); AST(SGOT) 26 U/L (15-37); Alanine Aminotransfer ALT/SGPT 34 U/L (16-61); Albumin, Serum 3.9 g/dL (3.2-5.0); Alkaline Phosphatase 99 U/L (45-117); Anion Gap 8 (5-15); BUN 14 mg/dL (7-18); BUN/Creat Ratio 11.7 RATIO (10-20); Chloride 103 mmol/L (98-107); EST Glomerular Filtration Rate 63 mL/min (>60); Est Glom Filt Rate - Afr Amer 77 mL/min (>60); Globulin 4.3 g/dL (2.2-4.2); Glucose 96 mg/dL (74-106); Potassium 3.8 mmol/L (3.5-5.1); Protein, Total 8.2 g/dL (6.4-8.2); Sodium Level 137 mmol/L (136-145)
== END ==
PROVIDERS: PCP Family Medicine; Referring Provider Podiatrist; Visit Provider Podiatrist
DX: M19.071 Primary osteoarthritis, right ankle and foot (principal); A52.16 Charcot's arthropathy (tabetic)
CPT/HCPCS: 36415; 80053; 85025

== ENCOUNTER → 2020-09-23 | Outpatient (CLI) | payer MEDICARE, SELFPAY ==
[2020-07-16 14:34] VITALS: BMI 33.3
[2020-09-23 19:56] LABS: M R Staph aureus DNA By PCR Negative (Negative); Probe Check PASS; Specimen Processing Control PASS; Staph aureus DNA By PCR NEGATIVE (Negative)
== END | disposition home or self-care (01) ==
PROVIDERS: PCP Family Medicine; Referring Provider Podiatrist; Visit Provider Podiatrist
DX: L97.519 Non-pressure chronic ulcer of other part of right foot with unspecified severity (principal)
CPT/HCPCS: 87070; 87075; 87205; 87640

== ENCOUNTER 2020-10-19 03:56 | Outpatient (RCR) | payer MEDICARE, SELFPAY ==
[2020-07-16 14:34] VITALS: BMI 33.3
[2020-10-19] MEDS: COVID-19 VACC, MRNA(PFIZER)/PF 30 MCG/0.3 ML SYRINGE IM (12:13)
[2020-11-09] MEDS: COVID-19 VACC, MRNA(PFIZER)/PF 30 MCG/0.3 ML SYRINGE IM (12:07)
== END 2021-01-18 23:59 ==
LOC: IMMUN 03:56
PROVIDERS: PCP Family Medicine; Visit Provider Family Medicine
DX: Z23 Encounter for immunization (principal)
CPT/HCPCS: 0001A; 0002A; 91300

== ENCOUNTER → 2020-10-26 | Outpatient (CLI) | payer MEDICARE, SELFPAY ==
[2020-07-16 14:34] VITALS: BMI 33.3
== END | disposition home or self-care (01) ==
PROVIDERS: Visit Provider Podiatrist
DX: L97.519 Non-pressure chronic ulcer of other part of right foot with unspecified severity (principal)
CPT/HCPCS: 87070; 87075; 87077; 87186; 87205

== ENCOUNTER → 2020-11-01 06:52 | Outpatient (CLI) | payer MEDICARE, SELFPAY ==
[2020-07-16 14:34] VITALS: BMI 33.3
[2020-10-26 15:29] LABS: Absolute Lymphocyte Count 1.68 X10^3/uL (0.83-4.51); Absolute Neutrophil Count 2.6 X10^3/uL (2.0-7.7); Basophil# 0.05 X10^3/uL; Eosinophils% 5.7 % (0-5); Hematocrit 46.3 % (40-54); Hemoglobin 15.1 g/dL (13.0-16.5); Lymphocyte # 1.68 X10^3/ul (4.0); Lymphocyte % 31.9 % (19-41); Mean Corp Hgb Conc 32.6 g/dL (32-36); Mean Corpuscular Hgb 32.5 pg (27.0-32.0); Mean Corpuscular Volume 99.6 fL (80-94); Monocyte# 0.61 X10^3/uL; Monocyte% 11.6 % (0-10); NRBC Flagged by Analyzer 0 % (0-5); Neutrophil # 2.61 X10^3/uL (2.7-7.7); Neutrophil % 49.6 % (47-70); Platelet Count 250 K/mm3 (150-450); RBC Distribution Width CV 12.2 % (11.6-14.6); RBC Distribution Width SD 44.4 fl (35.1-43.9); Red Blood Count 4.65 M/mm3 (4.6-6.2); White Blood Count 5.3 K/mm3 (4.4-11.0)
[2020-10-26 15:44] LABS: Erythrocyte Sedimentation Rate 6 mm/hr (0-20)
[2020-10-26 15:53] LABS: Vitamin D,25 Hydroxy 54.1 ng/mL
[2020-10-26 15:55] LABS: ALB/GLOB Ratio 0.8 RATIO (0.9-2.4); AST(SGOT) 33 U/L (15-37); Alanine Aminotransfer ALT/SGPT 30 U/L (16-61); Albumin, Serum 3.5 g/dL (3.2-5.0); Alkaline Phosphatase 95 U/L (45-117); Anion Gap 3 (5-15); BUN 9 mg/dL (7-18); BUN/Creat Ratio 8.3 RATIO (10-20); CRP 5.37 mg/L (0.0-3.0); Chloride 106 mmol/L (98-107); Creatinine, Serum 1.08 mg/dL (0.70-1.30); EST Glomerular Filtration Rate 72 mL/min (>60); Est Glom Filt Rate - Afr Amer 87 mL/min (>60); Globulin 4.2 g/dL (2.2-4.2); Glucose 84 mg/dL (74-106); Potassium 4.4 mmol/L (3.5-5.1); Protein, Total 7.7 g/dL (6.4-8.2); Sodium Level 139 mmol/L (136-145); Uric Acid 4.6 mg/dL (3.5-7.2)
--- NOTE | 2020-11-01 06:57 | CT_ITS ---
EXAM: CT RIGHT LOWER EXTREMITY WITHOUT INTRAVENOUS CONTRAST, FOOT CLINICAL INDICATION: RT FOOT - POST OP -- SURG X3 YRS AGO--HAS NON-HEALING WOUND ON TOP OF FOOT TECHNIQUE: Helically acquired images were obtained of the right foot without intravenous contrast. This CT exam was performed using one or more of the following dose reduction techniques: automated exposure control, adjustment of the mA and/or kV according to patient size, and/or use of iterative reconstruction technique. This report was created using [employer] report generation technology. COMPARISON: 07/16/2020 FINDINGS: BONES/JOINTS: Fusion plate and screws of midfoot/arthrodesis, grossly similar. No periimplant lucency or gela bony destruction. Degenerative narrowing with minimal marginal spur formation of the first MTP joint. No acute fracture. No subluxation. Normal alignment. SOFT TISSUES: Localized soft tissue swelling of the dorsal forefoot (image 21 series 601) without focal fluid collection. No radiopaque foreign body. CT/Extremity Lower without Contra IMPRESSION: 1. Fusion plate and screws of midfoot/arthrodesis, grossly similar. No periimplant lucency or gela bony destruction. 2. Localized soft tissue swelling of the dorsal forefoot (image 21 series 601) without focal fluid collection. Electronically Signed: Ronak Young MD ([place]) at 8:37 EDT , Service support ,
== END ==
PROVIDERS: PCP Family Medicine; Referring Provider Podiatrist; Visit Provider Podiatrist
DX: M79.671 Pain in right foot (principal); Z98.1 Arthrodesis status
CPT/HCPCS: 36415; 73700; 80053; 82306; 84550; 85025; 85652; 86140

== ENCOUNTER 2020-11-10 13:01 | Outpatient (RCR) | payer MEDICARE, SELFPAY ==
[2020-07-16 14:34] VITALS: BMI 33.3
[2020-11-10 13:06] VITALS: BP 138/80; PULSE 77; TEMP 36.9; BMI 33.3
--- NOTE | 2020-11-10 13:42 | HP.PCM_ITS ---
(1) Ulcer of right foot with fat layer exposed Status: Chronic Code(s): L97.512 - Non-pressure chronic ulcer of other part of right foot with fat layer exposed (2) Exposed orthopaedic hardware Status: Chronic Code(s): T84.498A - Other mechanical complication of other internal orthopedic devices, implants and grafts, initial encounter (3) Delayed wound healing Status: Chronic Code(s): T14.8XXD - Other injury of unspecified body region, subsequent encounter (4) Malnutrition Status: Chronic Code(s): E46 - Unspecified protein-calorie malnutrition (5) Infected hardware in right lower extremity Status: Suspected Code(s): T84.7XXA - Infection and inflammatory reaction due to other internal orthopedic prosthetic devices, implants and grafts, initial encounter (6) Localized edema Status: Acute Code(s): R60.0 - Localized edema (7) Chronic venous insufficiency Status: Chronic Code(s): I87.2 - Venous insufficiency (chronic) (peripheral) History of Present Illness Date of Service: 11/10/20 Chief Complaint: Left medial foot ulcer History of Wound: This is a 70-year-old male who presented with chronic swelling and edema in his lower extremities with concurrent nonhealing surgical wound at his multilevel midfoot arthrodesis with internal fixation placement performed by Dr. Painter on 07/16/2020 at [facility]. He denies fever, chill, nausea, vomiting. He has chronic foot pain and has previously seen pain management. He has been partially weightbearing in a cam walker boot. He change the dressing daily as advised with Betadine and Orin. He has chronic exposed hardware and had prior delayed primary closure attempts in wound care in a comprehensive manner with Dr. Painter at the foot and ankle center. He is also scheduled to see infectious disease this afternoon. He was already started on doxycycline. Past Medical History Past Medical History: Chronic Problems (Last Reviewed 01/29/20 @ 13:56 by Trisha Zheng) Left leg swelling (Chronic) Leg edema, left (Chronic) Chronic venous insufficiency (Chronic) Varicose veins with inflammation (Chronic) Peripheral neuropathy (Chronic) Osteopenia (Chronic) History of prostate cancer (Chronic) Asthma (Chronic) Obesity (BMI 30.0-34.9) (Chronic) Hyperlipidemia (Chronic) Ulcer of right foot with fat layer exposed (Chronic) Exposed orthopaedic hardware (Chronic) Delayed wound healing (Chronic) Malnutrition (Chronic) Kidney stones (Chronic) Asthma (Chronic) Rheumatoid arthritis (Chronic) Obesity (Chronic) Gastric ulcer (Chronic) DDD (degenerative disc disease), cervical (Chronic) Osteoarthritis (Chronic) Osteopenia (Chronic) BPH (benign prostatic hyperplasia) (Chronic) GERD (gastroesophageal reflux disease) (Chronic) KEZIA treated with BiPAP (Chronic) On BiPAP 05/18 Moderate persistent allergic asthma 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) Hypersomnia (Chronic) Asbestos exposure (Chronic) Dyspnea on exertion (Chronic) Prostate cancer (Chronic) Past Medical History: rheumatoid arthritis Surgical History: - - Patient underwent endovenous laser ablation of the left great saphenous vein in the left small saphenous vein in 2005. He is undergone left knee replacement surgery x2. He also has undergone right knee replacement surgery. Prostatectomy has been performed in the past. He has had bilateral inguinal hernia repair. He has had surgery on his right second toe. Allergies/Adverse Reactions: Allergies gluten Allergy (Verified 11/10/20 13:29) Food Allergy peanut Allergy (Verified 11/10/20 13:29) Food Allergy yeast, dried [yeast] Allergy (Verified 11/10/20 13:29) Food Allergy environmental Allergy (Uncoded 07/12/20 15:11) PT UNSURE OF REACTION Home Medications: Ambulatory Orders Medication Instructions Recorded Montelukast [Singulair] 10 mg PO DAILY 07/07/15 risedronate 150 mg tablet 100 mg PO QMONTH 07/10/18 cholecalciferol (vitamin D3) 25 2,000 unit PO DAILY 08/14/18 mcg (1,000 unit) capsule Azelastine/Fluticasone puff INHALATION 03/23/20 [Azelastin-Flutic 137-50Mcg Spr] Budesonide/Formoterol 160/4.5 puff INHALATION 03/23/20 [Symbicort 160/4.5 Mcg Inhaler (SP)] Baclofen 10 mg PO DAILY PRN 11/10/20 Tiotropium [place] [Spiriva puff INHALATION 11/10/20 Respimat] - Family History Maternal Family History: Family History (Last Reviewed 01/29/20 @ 13:56 by Trisha Zheng) Mother Heart disease Sister Hypertension No pertinent history Paternal Family History: Family History (Last Reviewed 01/29/20 @ 13:56 by Trisha Zheng) Mother Heart disease Sister Hypertension No pertinent history Lives: Spouse/ Significant Other Smoking Status: Never smoker Tobacco Use: Non-smoker Review of Systems Constitutional: Denies: Chills, Fever Cardiovascular: Reports: Edema. Denies: Claudication Gastrointestinal: Denies: Diarrhea, Nausea Musculoskeletal: Reports: Foot Pain. Denies: Leg Pain Skin: Reports: Skin Changes, Wounds - Physical Exam Vital Signs Temp Pulse BP 98.5 F 77 138/80 H 11/10/20 13:06 11/10/20 13:06 11/10/20 13:06 General: Alert, Oriented x3, Cooperative HEENT: Atraumatic Extremities: No cyanosis, Capillary Refill Less than 3 Seconds, No Calf Tenderness - Negative Sita and Lawson sign bilateral, Edema, Peripheral Pulses Normal Skin: Ulcer/ Wound - No purulence, erythema, streaking, odor, infection. No fluctuance or bogginess on palpation. There is direct probing to hardware along central cicatrix. Adjacent skin is atrophic Wound Measurements and Assessment WC - Nurse 1 - General Ulcer Measurement Start: 11/10/20 13:03 Freq: Status: Active Protocol: Activity Type Activity Date Activity User E-Sign Co-Sign Detail Recorded Client Recorded Date Recorded By Document 11/10/20 13:06 CHANDNI [id number] 11/10/20 13:17 CHANDNI 11/10/20 13:06 Wound Center Nurse 1 [Ulcer Assessment] #1 Right medial dorsal foot -Current Size (cm) - Length 0.1 -Current Size (cm) - Width 0.1 -Current Size (cm) - Depth 0.2 -Total Square Cm 0.01 -Exudate Amt Medium -Exudate Type Serosanguineous -Wound Margin Distinct, Outline Attached -Granulation Amt Medium (34-66%) -Granulation Quality Red -Necrosis Amt Medium (34-66%) -Necrotic Tissue Type Adherent Slough -Texture (Shey-wound Skin Appearance) Assessed, Scarring -Color (Shey-wound Skin Appearance) Assessed -Temperature (Shey-wound Skin No Abnormality Appearance) (Pt Warm) -Tenderness on Palpation (Shey-wound No Skin Appearance) -Ulcer Cleansing Rinsed/ Irrigated with Saline -Foul Odor after Cleansing No -Anesthetic Used 4% Lidocaine Solution,5% Lidocaine Gel WC - Nurse 2 - General Ulcer CM Notes Start: 11/10/20 13:03 Freq: Status: Active Protocol: Activity Type Activity Date Activity User E-Sign Co-Sign Detail Recorded Client Recorded Date Recorded By Document 11/10/20 13:23 PAUL [id number] 11/10/20 13:28 JF 11/10/20 13:23 Wound Center Nurse 2 [Procedure/Treatment] -Time 13:24 -Correct Patient Yes -Correct Side, Site, Position Yes -Correct Procedure Yes -Procedure Performed Yes -Type of Procedure Debridement -Clinical Debridement Subcutaneous -Tissue Removed Subcutaneous -Post Debridement (cm) - Length 0.4 -Post Debridement (cm) - Width 1 -Post Debridement (cm) - Depth 0.3 -Total Square (Post) (cm) 0.4 -Area of Debridement (cm) - Length 0.4 -Area of Debridement (cm) - Width 1 -Total Square (Area) (cm) 0.4 -Tunneling No -Undermining/Tunneling No -Circular Undermining No -Wound/Ulcer Outcome Not Healed -Ulcer Cleansing Rinsed/ Irrigated with Saline -Foul Odor after Cleansing No -Bioengineered Tissue No -Bleeding Controlled with Pressure -Offloading Yes -Type of Offloading Camwalker -Treatment Response Procedure Tolerated Well -Debridement - Subq, 1st 20sq cm Yes [See Physician Procedure note for Specifics] Pain Scale: 0-10 Numeric [Pain] -Is Patient Pain Free? Yes Musculoskeletal: Muscle Wasting, - - Active range of motion digits. No skin tenting and compartments remain soft to right lower extremity Neurological: - - Lack of full sensation to very light touch foot Psych/Mental Status: Normal Affect, Appropriate Debridement Note Post-Debridement Measurements/Treatment WC - Nurse 2 - General Ulcer CM Notes Start: 11/10/20 13:03 Freq: Status: Active Protocol: Activity Type Activity Date Activity User E-Sign Co-Sign Detail Recorded Client Recorded Date Recorded By Document 11/10/20 13:23 JF [id number] 11/10/20 13:28 JF 11/10/20 13:23 Wound Center Nurse 2 #1 Right medial dorsal foot -Time 13:24 -Correct Patient Yes -Correct Side, Site, Position Yes -Correct Procedure Yes -Procedure Performed Yes -Type of Procedure Debridement -Clinical Debridement Subcutaneous -Tissue Removed Subcutaneous -Post Debridement (cm) - Length 0.4 -Post Debridement (cm) - Width 1 -Post Debridement (cm) - Depth 0.3 -Total Square (Post) (cm) 0.4 -Area of Debridement (cm) - Length 0.4 -Area of Debridement (cm) - Width 1 -Total Square (Area) (cm) 0.4 -Tunneling No -Undermining/Tunneling No -Circular Undermining No -Wound/Ulcer Outcome Not Healed -Ulcer Cleansing Rinsed/ Irrigated with Saline -Foul Odor after Cleansing No -Bioengineered Tissue No -Bleeding Controlled with Pressure -Offloading Yes -Type of Offloading Camwalker -Treatment Response Procedure Tolerated Well -Debridement - Subq, 1st 20sq cm Yes Pain Scale: 0-10 Numeric Is Patient Pain Free? Yes Wound debrided: medial midfoot Laterality: Right Type of Debridement: Excisional debridement Anesthesia Used: 5% Lidocaine Gel Depth: in the subcutaneous layer Percentage of wound debrided: 100 Instrument Used: #15 blade Tissue Removed: fibrous, devitalized subcutaneous, biofilm, slough Severity: Fat Layer Exposed Amount of bleeding with debridement: Mild Bleeding Controlled with: Pressure Patient tolerated procedure well Assessment/Plan Active Problems (Last Reviewed 01/29/20 @ 13:56 by Trisha Zheng) Chronic venous insufficiency (Chronic) Ulcer of right foot with fat layer exposed (Chronic) Exposed orthopaedic hardware (Chronic) Delayed wound healing (Chronic) Malnutrition (Chronic) Localized edema (Acute) Assessment: Right foot ulcer with delayed healing and exposed hardware (potential hardware infection and contamination). Rheumatoid arthritis. Lower extremity edema secondary to venous insufficiency. Malnutrition suspected. Delayed healing Plan: I reviewed and discussed his case. He was referred from the foot and ankle center. He had prior multiple level midfoot arthrodesis with internal fixation placed (Dr. Painter on 07/16/2020). It is noted he does not demonstrate systemic illness or localized purulence or erythema. He does have a chronic delayed ulcer along the central previous incision line that does probe directly to hardware. Previous imaging studies include x-rays which do not demonstrate hardware failure loosening or gela osteolysis of the adjacent bone structures. He had a CT scan performed on 11-01-20 which did not head any lucencies around the hardware, hardware failure, or focal areas of distinct infection. His recent labs demonstrated normal white blood cell count and ESR. His CRP was 5.37. His recent cultures demonstrated Staphylococcus epi growth and he was started on doxycycline. He also had lower extremity arterial studies performed in March 17, 2020 which demonstrated bilateral triphasic waveforms to the ankle levels and normal bilateral ABIs. Recommendations include the following: Dressing: Dakin wet-to-dry dressing with gauze packed into the area of deeper probing. Peripheral ulcer care: Wash with antibacterial soap and water. Avoid soaking. Pressure offloading: Continue partial weightbearing with Cam walker boot. Aperture pad applied around ulcer to relieve additional pressure and tension. To avoid sleeping or laying directly on the wound. Nutrition: He will start Vince nutritional protein and amino acid supplementation. He was advised on how to get this supplement. Debridement: Subcutaneous excisional with a 15 blade scalpel was performed as noted in the clinical panel. Arterial vascular assessment: Previous noninvasive vascular studies were reviewed. Intervention is not recommended at this time. Venous assessment: Chronic swelling is noted he is unable to wear his compression garments. Double Tubigrip was advised. To elevate and compress muscles of the lower extremity hourly while awake. Infection management and work-up: Chronic hardware exposure is noted and infection versus contamination is suspected. His prior cultures were reviewed and he has been on oral antibiotics. There is continued delayed healing and continued hardware exposure. He will see infectious disease today. Hardware removal potential was discussed with both surgeon and patient and not amendable to proceed at this time. We will see if additional imaging work-up and antibiotic selection can be updated. Follow-up: 1 week at wound healing center. I answered all of his questions. Note: Lingua[employer]ly speech recognition avid editor software was used to create portions of this document. Sound-alike and misspelled words, as well as other avid editor errors may be contained in the documentation. The medical decision making level is moderate. There is noted moderate risk of morbidity after considering this treatment plan and diagnostic data. Considerations were given to prescription management, decisions regarding surgical options, or social determinants of health. The problems addressed require a moderate decision making level which includes one or more chronic illnesses (w/ exacerbation, progression, or side effects), two or more stable chronic illnesses, one undiagnosed new problem w/ uncertain prognosis, one acute illness with systemic symptoms, or one acute complicated injury. MACRA 2020-. Medications and allergies were reviewed and reconciled. Body mass index of 33 above recommended range. Blood pressure 138/80 is elevated and activity and nutrition was discussed today. To follow-up with primary care physician in regards to elevated blood pressure over 120/80. Influenza and pneumococcal vaccinations completed in the past. He does not have a living will on file.
--- NOTE | 2020-11-10 16:56 | CON.PCM_ITS ---
Problem List (1) Infected hardware in right lower extremity Status: Suspected Reason for Consult: hardware infection Consulted by: Dr. Morales History of Present Illness: The patient is a 70 year old M referred by Dr. Morales. ?Had surgery 07/16/20 with hardware placement in R foot by Dr. Painter after foot fracture 3 years prior. ?Since then, has nonhealing ulcer on top of foot with screw exposed. ?Wound cx done 10/26/20 with growth of MRSE. ?Started on doxy about 1 week. ?Never had much redness. ?No pain. ?Some swelling, some clear drainage. Full ROS performed and neg except as noted above. He and his have gotten covid shots. - Medical History Past Medical History (Chronic Problems): Chronic Problems (Last Reviewed 01/29/20 @ 13:56 by Trisha Zheng) Left leg swelling (Chronic) Leg edema, left (Chronic) Chronic venous insufficiency (Chronic) Varicose veins with inflammation (Chronic) Peripheral neuropathy (Chronic) Osteopenia (Chronic) History of prostate cancer (Chronic) Asthma (Chronic) Obesity (BMI 30.0-34.9) (Chronic) Hyperlipidemia (Chronic) Ulcer of right foot with fat layer exposed (Chronic) Exposed orthopaedic hardware (Chronic) Delayed wound healing (Chronic) Malnutrition (Chronic) Kidney stones (Chronic) Asthma (Chronic) Rheumatoid arthritis (Chronic) Obesity (Chronic) Gastric ulcer (Chronic) DDD (degenerative disc disease), cervical (Chronic) Osteoarthritis (Chronic) Osteopenia (Chronic) BPH (benign prostatic hyperplasia) (Chronic) GERD (gastroesophageal reflux disease) (Chronic) KEZIA treated with BiPAP (Chronic) On BiPAP 05/18 Moderate persistent allergic asthma 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) Hypersomnia (Chronic) Asbestos exposure (Chronic) Dyspnea on exertion (Chronic) Prostate cancer (Chronic) Allergies/Adverse Reactions: Allergies gluten Allergy (Verified 11/10/20 13:29) Food Allergy peanut Allergy (Verified 11/10/20 13:29) Food Allergy yeast, dried [yeast] Allergy (Verified 11/10/20 13:29) Food Allergy environmental Allergy (Uncoded 07/12/20 15:11) PT UNSURE OF REACTION Home Medications: Ambulatory Orders Medication Instructions Recorded Montelukast [Singulair] 10 mg PO DAILY 07/07/15 risedronate 150 mg tablet 100 mg PO QMONTH 07/10/18 cholecalciferol (vitamin D3) 25 2,000 unit PO DAILY 08/14/18 mcg (1,000 unit) capsule Azelastine/Fluticasone puff INHALATION 03/23/20 [Azelastin-Flutic 137-50Mcg Spr] Budesonide/Formoterol 160/4.5 puff INHALATION 03/23/20 [Symbicort 160/4.5 Mcg Inhaler (SP)] Baclofen 10 mg PO DAILY PRN 11/10/20 Tiotropium [place] [Spiriva puff INHALATION 11/10/20 Respimat] - Social History SMOKING STATUS:: Never smoker Vital Signs Temp Pulse BP 98.5 F 77 138/80 H 11/10/20 13:06 11/10/20 13:06 11/10/20 13:06 Body Mass Index (BMI) 33.3 reviewed - Other Studies Radiology: [] reviewed Other Studies: [] Route of nutrition/ use of supplements: [] Nutritional Intake: [] IV Site: [] Hurtado Catheter: [] - Physical Exam General: Alert, Oriented x3, Cooperative, No apparent distress HEENT: Atraumatic, PERRLA, EOMI Neck: Supple, No Nodes Lungs: Clear to auscultation, Normal air movement Cardiovascular: Regular rate, Regular Rhythm Abdomen: Soft, Non Tender, Non-Distended Extremities: No edema Skin: Ulcer/ Wound - R foot wrapped Musculoskeletal: No Tenderness to Palpation of Joints or Extremities Neurological: Cranial nerves II-XII grossly intact - Assessment/Plan Antibiotics: [] Assessment/Plan: [] Active and Suspected Problems (Last Reviewed 01/29/20 @ 13:56 by Trisha Zheng) Infected hardware in right lower extremity (Suspected) Localized edema (Acute) R foot hardware infection - recent cx with rare On doxy, feels like he is improving. No signs of systemic illness, CT did not show clear sign of abscess or osteo. Limited options at this time other than to continue po doxy for at least 6 weeks and then plan on low term suppression (particularly if hardware cannot be removed). Monitor for fever, worsening redness/drainage/swelling/pain. Return to clinic in 3-4 weeks. Thank you for this referral, d/w Dr. Morales.
== END 2020-11-10 23:59 ==
LOC: WC 13:01
PROVIDERS: Visit Provider Podiatrist
DX: I87.2 Venous insufficiency (chronic) (peripheral) (principal); L97.512 Non-pressure chronic ulcer of other part of right foot with fat layer exposed; T84.7XXA Infection and inflammatory reaction due to other internal orthopedic prosthetic devices, implants and grafts, initial encounter; Y83.8 Other surgical procedures as the cause of abnormal reaction of the patient, or of later complication, without mention of misadventure at the time of the procedure; R60.0 Localized edema; E78.5 Hyperlipidemia, unspecified; M06.9 Rheumatoid arthritis, unspecified; G62.9 Polyneuropathy, unspecified; E66.9 Obesity, unspecified; J45.909 Unspecified asthma, uncomplicated; N40.0 Benign prostatic hyperplasia without lower urinary tract symptoms; G47.33 Obstructive sleep apnea (adult) (pediatric); M19.90 Unspecified osteoarthritis, unspecified site; Z79.899 Other long term (current) drug therapy; Z79.51 Long term (current) use of inhaled steroids; Z68.33 Body mass index [BMI] 33.0-33.9, adult
CPT/HCPCS: 11042; 99213; G0463

== ENCOUNTER 2020-11-17 10:30 | Outpatient (RCR) | payer MEDICARE, SELFPAY ==
[2020-11-11 00:55] VITALS: BP 138/80; PULSE 77; TEMP 36.9
[2020-11-17 10:36] VITALS: BP 123/70; PULSE 86; RESP 16; TEMP 36.4; BMI 33.3
--- NOTE | 2020-11-17 11:32 | PCM.WC.PN ---
(1) Ulcer of right foot with fat layer exposed Status: Chronic Code(s): L97.512 - Non-pressure chronic ulcer of other part of right foot with fat layer exposed (2) Left leg swelling Status: Chronic Code(s): M79.89 - Other specified soft tissue disorders (3) Chronic venous insufficiency Status: Chronic Code(s): I87.2 - Venous insufficiency (chronic) (peripheral) (4) Peripheral neuropathy Status: Chronic Code(s): G62.9 - Polyneuropathy, unspecified (5) Exposed orthopaedic hardware Status: Chronic Code(s): T84.498A - Other mechanical complication of other internal orthopedic devices, implants and grafts, initial encounter (6) Delayed wound healing Status: Chronic Code(s): T14.8XXD - Other injury of unspecified body region, subsequent encounter (7) Malnutrition Status: Chronic Code(s): E46 - Unspecified protein-calorie malnutrition (8) Infected hardware in right lower extremity Status: Suspected Code(s): T84.7XXA - Infection and inflammatory reaction due to other internal orthopedic prosthetic devices, implants and grafts, initial encounter Type of Wound Date of Service: 11/17/20 Chief Complaint: Left medial foot ulcer History of Wound: This is a 70-year-old male who presented with chronic swelling and edema in his lower extremities with concurrent nonhealing surgical wound at his multilevel midfoot arthrodesis with internal fixation placement performed by Dr. Painter on 07/16/2020 at [facility]. He denies fever, chill, nausea, vomiting. He has chronic foot pain and has previously seen by pain management. He has been partially weightbearing in a cam walker boot. He change the dressing daily as advised with dakins solution. He has chronic exposed hardware and had prior delayed primary closure attempts in wound care in a comprehensive manner with Dr. Painter at the foot and ankle center. He is currently on an extended course of doxycycline and is tolerating this well. He wears his Tubigrip and elevate his limb as advised. He was not able to tolerate Vince and this routinely makes him nauseous. He vomited once after taking Vince. He does not like the orange flavor. Progress of Wound: Stable - Physical Exam Vital Signs Temp Pulse Resp BP 97.6 F L 86 16 123/70 H 11/17/20 10:36 11/17/20 10:36 11/17/20 10:36 11/17/20 10:36 General: Alert, Oriented x3, Cooperative, No apparent distress HEENT: Atraumatic Extremities: No cyanosis, Capillary Refill Less than 3 Seconds, No Calf Tenderness, Diminished Peripheral Pulses, Edema Skin: Ulcer/ Wound - No purulence, erythema, streaking, odor, infection. This is a very small ulcer and it is reduced in size compared to last week because I am not able to fit the cotton tip applicator probe to check for deep probing due to the reduced diameter size. The skin is atrophic and hairless Wound Measurements and Assessment WC - Nurse 1 - General Ulcer Measurement Start: 11/17/20 10:36 Freq: Status: Active Protocol: Activity Type Activity Date Activity User E-Sign Co-Sign Detail Recorded Client Recorded Date Recorded By Document 11/17/20 10:36 MS [id number] 11/17/20 10:46 MS 11/17/20 10:36 Wound Center Nurse 1 [Ulcer Assessment] #1 Right medial dorsal foot -Current Size (cm) - Length 0.5 -Current Size (cm) - Width 0.8 -Current Size (cm) - Depth 0.1 -Total Square Cm 0.40 -Exudate Amt Medium -Exudate Type Serosanguineous -Wound Margin Distinct, Outline Attached -Granulation Amt None Present (0 %) -Slough/Fibrin Yes -Necrosis Amt Small (1-33%) -Texture (Shey-wound Skin Appearance) No Abnormality -Moisture (Shey-wound Skin Appearance No Abnormality ) -Color (Shey-wound Skin Appearance) No Abnormality -Temperature (Shey-wound Skin No Abnormality Appearance) (Pt Warm) -Ulcer Cleansing soap and water -Foul Odor after Cleansing No -Anesthetic Used 4% Lidocaine Solution [Edema Assessment] -Right Calf (cm) 32 -Right Ankle (cm) 23 WC - Nurse 2 - General Ulcer CM Notes Start: 11/17/20 10:36 Freq: Status: Active Protocol: Activity Type Activity Date Activity User E-Sign Co-Sign Detail Recorded Client Recorded Date Recorded By Document 11/17/20 11:04 PAUL [id number] 11/17/20 11:06 PAUL 11/17/20 11:04 Wound Center Nurse 2 [Procedure/Treatment] #1 Right medial dorsal foot -Time 11:05 -Correct Patient Yes -Correct Side, Site, Position Yes -Correct Procedure Yes -Procedure Performed Yes -Type of Procedure Debridement -Clinical Debridement Subcutaneous -Tissue Removed Subcutaneous -Post Debridement (cm) - Length 0.1 -Post Debridement (cm) - Width 0.1 -Post Debridement (cm) - Depth 0.1 -Total Square (Post) (cm) 0.01 -Area of Debridement (cm) - Length 0.1 -Area of Debridement (cm) - Width 0.1 -Total Square (Area) (cm) 0.01 -Tunneling No -Undermining/Tunneling No -Circular Undermining No -Wound/Ulcer Outcome Not Healed -Ulcer Cleansing Rinsed/ Irrigated with Saline -Foul Odor after Cleansing No -Bioengineered Tissue No -Bleeding Controlled with Pressure -Offloading Yes -Type of Offloading Camwalker -Treatment Response Procedure Tolerated Well -Debridement - Subq, 1st 20sq cm Yes [See Physician Procedure note for Specifics] Pain Scale: 0-10 Numeric [Pain] -Is Patient Pain Free? Yes - Nurse 3 - General Ulcer D/C NN Start: 11/17/20 10:36 Freq: Status: Active Protocol: Activity Type Activity Date Activity User E-Sign Co-Sign Detail Recorded Client Recorded Date Recorded By Document 11/17/20 11:21 DL [id number] 11/17/20 11:24 DL 11/17/20 11:21 Wound Care Nurse 3 [Wound Dressing] #1 Right medial dorsal foot -Ulcer Cleansing Rinsed/ Irrigated with Saline -Foul Odor after Cleansing No -Other Dressing moist gauze today -Primary Dressing Covered/Secured Dry Gauze & with Roll Gauze, Secured with Tape [Compression Applied] Right -Size of Tubigrip Used Size D -Size D ($) 1 [Post Procedure Tolerated] -Treatment Response Procedure Tolerated Well Pain Scale: 0-10 Numeric [Pain] -Is Patient Pain Free? Yes - Visit Discharge [Visit Discharge Information] -Discharge Condition Stable -Ambulatory Status Ambulatory -Transportation Private Auto Musculoskeletal: Muscle Wasting, Tenderness, - - Compartment soft to palpate Neurological: Sensory exam intact to light touch and pain Psych/Mental Status: Normal Affect, Appropriate Debridement Note Post-Debridement Measurements/Treatment ISMAEL - Nurse 2 - General Ulcer CM Notes Start: 11/17/20 10:36 Freq: Status: Active Protocol: Activity Type Activity Date Activity User E-Sign Co-Sign Detail Recorded Client Recorded Date Recorded By Document 11/17/20 11:04 PAUL [id number] 11/17/20 11:06 PAUL 11/17/20 11:04 Wound Center Nurse 2 #1 Right medial dorsal foot -Time 11:05 -Correct Patient Yes -Correct Side, Site, Position Yes -Correct Procedure Yes -Procedure Performed Yes -Type of Procedure Debridement -Clinical Debridement Subcutaneous -Tissue Removed Subcutaneous -Post Debridement (cm) - Length 0.1 -Post Debridement (cm) - Width 0.1 -Post Debridement (cm) - Depth 0.1 -Total Square (Post) (cm) 0.01 -Area of Debridement (cm) - Length 0.1 -Area of Debridement (cm) - Width 0.1 -Total Square (Area) (cm) 0.01 -Tunneling No -Undermining/Tunneling No -Circular Undermining No -Wound/Ulcer Outcome Not Healed -Ulcer Cleansing Rinsed/ Irrigated with Saline -Foul Odor after Cleansing No -Bioengineered Tissue No -Bleeding Controlled with Pressure -Offloading Yes -Type of Offloading Camwalker -Treatment Response Procedure Tolerated Well -Debridement - Subq, 1st 20sq cm Yes Pain Scale: 0-10 Numeric Is Patient Pain Free? Yes - Nurse 3 - General Ulcer D/C NN Start: 11/17/20 10:36 Freq: Status: Active Protocol: Activity Type Activity Date Activity User E-Sign Co-Sign Detail Recorded Client Recorded Date Recorded By Document 11/17/20 11:21 [id number] 11/17/20 11:24 DL 11/17/20 11:21 Wound Care Nurse 3 #1 Right medial dorsal foot -Ulcer Cleansing Rinsed/ Irrigated with Saline -Foul Odor after Cleansing No -Other Dressing moist gauze today -Primary Dressing Covered/Secured with Dry Gauze & Roll Gauze, Secured with Tape Right -Size of Tubigrip Used Size D -Size D ($) 1 Treatment Response Procedure Tolerated Well Pain Scale: 0-10 Numeric Is Patient Pain Free? Yes - Visit Discharge Discharge Condition Stable Ambulatory Status Ambulatory Transportation Private Auto Wound debrided: medial foot Laterality: Right Type of Debridement: Excisional debridement Anesthesia Used: 5% Lidocaine Gel Depth: in the subcutaneous layer Percentage of wound debrided: 100 Instrument Used: #15 blade Tissue Removed: fibrous, devitalized subcutaneous, biofilm, slough Severity: Fat Layer Exposed Amount of bleeding with debridement: Mild Bleeding Controlled with: Pressure Patient tolerated procedure well Assessment/Plan Active Problems (Last Reviewed 01/29/20 @ 13:56 by Trisha Zheng) Left leg swelling (Chronic) Chronic venous insufficiency (Chronic) Peripheral neuropathy (Chronic) Ulcer of right foot with fat layer exposed (Chronic) Exposed orthopaedic hardware (Chronic) Delayed wound healing (Chronic) Malnutrition (Chronic) Assessment: Right foot ulcer with delayed healing and exposed hardware (potential hardware infection and contamination). Rheumatoid arthritis. Lower extremity edema secondary to venous insufficiency. Malnutrition suspected. Delayed healing Plan: I reviewed and discussed his case. He was referred from the foot and ankle center. He had prior multiple level midfoot arthrodesis with internal fixation placed (Dr. Painter on 07/16/2020). It is noted he does not demonstrate systemic illness or localized purulence or erythema. He does have a chronic delayed ulcer along the central previous incision line that does probe directly to hardware. Previous imaging studies include x-rays which do not demonstrate hardware failure loosening or gela osteolysis of the adjacent bone structures. He had a CT scan performed on 11-01-20 which did not head any lucencies around the hardware, hardware failure, or focal areas of distinct infection. His recent labs demonstrated normal white blood cell count and ESR. His CRP was 5.37. His recent cultures demonstrated Staphylococcus epi growth and he was started on doxycycline. He also had lower extremity arterial studies performed in March 17, 2020 which demonstrated bilateral triphasic waveforms to the ankle levels and normal bilateral ABIs. Recommendations include the following: Dressing: Dakin wet-to-dry dressing with gauze packed into the area of deeper probing. Peripheral ulcer care: Wash with antibacterial soap and water. Avoid soaking. Pressure offloading: Continue partial weightbearing with Cam walker boot. Aperture pad applied around ulcer to relieve additional pressure and tension. To avoid sleeping or laying directly on the wound. Nutrition: He will start Vince nutritional protein and amino acid supplementation. He was advised on how to get this supplement previously did not tolerate it. He will try the nonflavor option. Debridement: Subcutaneous excisional with a 15 blade scalpel was performed as noted in the clinical panel. Arterial vascular assessment: Previous noninvasive vascular studies were reviewed. Intervention is not recommended at this time. Venous assessment: Chronic swelling is noted he is unable to wear his compression garments. Double Tubigrip was advised. To elevate and compress muscles of the lower extremity hourly while awake. Infection management and work-up: Chronic hardware exposure is noted and infection versus contamination is suspected. His prior cultures were reviewed and he has been on oral antibiotics. There is continued delayed healing and continued hardware exposure. Previously saw infectious disease who recommended long-term use of doxycycline. Potential future hardware removal potential was discussed with both surgeon and patient and not amendable to proceed at this time. If he has continued chronic delays of healing regardless of the small size after at least 1 month of wound center treatment, operating room debridement and excision with delayed primary closure be considered. Follow-up: 1 week at wound healing center. I answered all of his questions. Note: [employer] speech recognition beauty counselor software was used to create portions of this document. Sound-alike and misspelled words, as well as other beauty counselor errors may be contained in the documentation. The medical decision making level is low. There is noted low risk of morbidity after considering this treatment plan and diagnostic data. The problems addressed require a low medical decision making level which includes two or more minor problems, a stable chronic illness, or an acute uncomplicated illness or injury. MACRA 2020-. Medications and allergies were reviewed and reconciled. Body mass index of 33 above recommended range. Blood pressure 123/70 is elevated and activity and nutrition was discussed today. To follow-up with primary care physician in regards to elevated blood pressure over 120/80. Influenza and pneumococcal vaccinations completed in the past. He does not have a living will on file.
== END 2020-12-10 23:59 ==
LOC: WC 10:30
PROVIDERS: Visit Provider Podiatrist
DX: L97.512 Non-pressure chronic ulcer of other part of right foot with fat layer exposed (principal); T84.196A Other mechanical complication of internal fixation device of bone of right lower leg, initial encounter; Y83.8 Other surgical procedures as the cause of abnormal reaction of the patient, or of later complication, without mention of misadventure at the time of the procedure; Y92.9 Unspecified place or not applicable; M79.89 Other specified soft tissue disorders; I87.2 Venous insufficiency (chronic) (peripheral); R60.0 Localized edema; G62.9 Polyneuropathy, unspecified; M06.9 Rheumatoid arthritis, unspecified; G89.29 Other chronic pain; Z79.899 Other long term (current) drug therapy
CPT/HCPCS: 11042

== ENCOUNTER 2020-11-25 15:02 | Inpatient (IN) | payer MEDICARE, SELFPAY ==
[2020-11-25] VITALS (8 sets, daily range): BP systolic 103–131; BP diastolic 58–83; PULSE 74–93; RESP 16–18; TEMP 36.9–37.3; O2SAT 91–99; BMI 33.5; BMI 32.0
--- NOTE | 2020-11-25 15:19 | CT_ITS ---
STUDY: CT RIGHT FOOT REASON FOR EXAM: Male, 70 years old. right foot abscess -- please also complete a 3D CT reconstruction RADIATION DOSAGE (If Supplied By Facility): CTDIvol = ( 15.35 ) mGy, DLP = ( 362.66 ) mGycm TECHNIQUE: Thin section transaxial imaging of the foot was obtained, with sagittal and coronal reconstructed images. Individualized dose optimization techniques were used for this CT. COMPARISON: Right foot x-ray dated NOVEMBER 25, 2020. CT of the right foot dated November 01, 2020 FINDINGS: Moderate to marked soft tissue swelling is present around the foot and most pronounced over the dorsum. No encapsulated fluid collections are seen. No demonstrated intramuscular abscess. No subcutaneous gas is present. Partial osseous fusion of the fourth and fifth TMT articulations noted. 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 Stable cortical plate screw constructs of the first through third digits and midfoot. No demonstrated hardware complications. No acute fracture. Cystic lucency reidentified in the fifth digit phalanges and metatarsal head. No evidence of cortical erosion or bony destruction or active osteomyelitis. The IP joint of the great toe is mildly narrowed. Normal talus, calcaneus, and tarsal bones. A small to moderate size plantar calcaneal spur is present. Minimal enthesopathy is present at the Achilles tendon insertion site. The Achilles tendon is grossly intact. Normal visualized tibiotalar, subtalar, talonavicular, calcaneocuboid, tarsal and tarsometatarsal articulations. The muscles are mildly atrophic. CT/Extremity Lower without Contra IMPRESSION: 1. Moderate to significant soft tissue swelling. 2. No visualized abscess or subcutaneous gas. 3. Surgical ankylosis of the bony structures as described above Electronically Signed: Jostin Canales MD at 17:14 EDT , Service support ,
--- NOTE | 2020-11-25 15:20 | ED.VIS.GEN ---
History of Present Illness Chief Complaint: Cellulitis Informant: Patient Onset: Days Context: Gradual Onset Timing: Continuous Current Severity: Moderate Maximum Severity: Moderate Narrative: Patient is a 70-year-old male with medical history significant for coronary vascular disease, peripheral vascular disease, and rheumatoid arthritis who presents to the emergency department with right foot pain and swelling. The patient has Charcot foot. He underwent operative fixation with podiatry in July of this year. His postoperative course has been complicated by nonhealing wound. He has been on suppressive doxycycline. Over the past 3 days, he is noticed the area is gotten more red and swollen. He states today was markedly painful. He admits to a week of intermittent chills and sweats. He is unsure if he had fever. He is otherwise been in his normal state of health. Prior similar symptoms: Yes Recent Illness/Hospitalization: Yes Past Medical History - Allergies and Home Meds Allergies/Adverse Reactions: Allergies gluten Allergy (Verified 11/25/20 15:06) Food Allergy peanut Allergy (Verified 11/25/20 15:06) Food Allergy yeast, dried [yeast] Allergy (Verified 11/25/20 15:06) Food Allergy environmental Allergy (Uncoded 11/25/20 15:06) PT UNSURE OF REACTION Primary Care Physician: Ganga Acosta DO [Primary Care Provider] - Prior records reviewed: Yes Past Medical History: - - Cardiovascular disease, rheumatoid arthritis, hypertension Surgical History: - - Patient underwent endovenous laser ablation of the left great saphenous vein in the left small saphenous vein in 2005. He is undergone left knee replacement surgery x2. He also has undergone right knee replacement surgery. Prostatectomy has been performed in the past. He has had bilateral inguinal hernia repair. He has had surgery on his right second toe. Smoking Status: Never smoker - Family History Maternal Family History: Family History (Last Reviewed 01/29/20 @ 13:56 by Trisha Zheng) Mother Heart disease Sister Hypertension Family History: Reports: No pertinent history Paternal Family History: Family History (Last Reviewed 01/29/20 @ 13:56 by Trisha Zheng) Mother Heart disease Sister Hypertension Family History: Reports: No pertinent history Review of Systems General: Reports: Chills, Sweats. Denies: Fever Eyes: Denies: Visual changes - bilaterally, Diplopia ENT: Denies: Rhinorrhea, Sore throat Cardiovascular: Denies: Chest pain, Palpitations Respiratory: Denies: Dyspnea, Cough, Dyspnea on exertion Gastrointestinal: Denies: Abdominal pain, Nausea, Vomiting, Diarrhea, Melena, Hematochezia Genitourinary: Denies: Dysuria, Hematuria, Frequency Musculoskeletal: Reports: Arthralgias, Extremity Pain. Denies: Back pain Skin: Denies: Rash, Wounds Neurological: Denies: Headache, Weakness, Numbness Physical Exam Vital Signs/Narrative: Vital Signs Temp Pulse Resp BP Pulse Ox 11/25/20 15:03 98.4 F 77 18 131/83 H 99 Inital Vital Signs reviewed: Yes General: Well nourished, Well developed, No Acute Distress Head: Normocephalic, Atraumatic Eyes: Perrl, EOMI ENT: Moist mucous membranes, No rhinorrhea Neck: Supple, Nontender Cardiovascular: Regular rate, Regular rhythm, No murmurs Respiratory: No distress, CTA bilaterally, Chest nontender Abdomen: Soft, Nontender, Nondistended, Normal bowel sounds Back: Nontender, Normal Inspection Extremities: Tenderness - Patient has erythema surrounding the surgical wound. There is one nonhealing area. There is edema through the entire forefoot with marked tenderness. His pulses are normal. Skin: Normal color, No rash Neurological: Alert, Oriented x3, Cranial nerves II-XII grossly intact, Normal Strength, Normal Sensation Psychological: Normal affect, Normal Mood Diagnostic/Tx/Re-eval Abnormal Lab Results 11/25/20 11/25/20 15:30 15:30 WBC 7.0 RBC 4.70 Hgb 15.1 Hct 44.6 MCV 94.9 H MCH 32.1 H MCHC 33.9 RDW Std Deviation 42.5 RDW Coeff of José Luis 12.1 Plt Count 269 MPV 8.5 Immature Gran % (Auto) 0.100 Neut % (Auto) 53.3 Lymph % (Auto) 27.8 [place] % (Auto) 14.2 H Eos % (Auto) 3.7 Baso % (Auto) 0.9 Absolute Neuts (auto) 3.8 Absolute Lymphs (auto) 1.96 Nucleated RBC % 0 ESR 52 H Sodium 137 Potassium 3.3 L Chloride 104 Carbon Dioxide 30.0 Anion Gap 3 L BUN 11 Creatinine 1.01 Estim Creat Clear Calc 69.27 Est GFR (MDRD) Af Amer 93 Est GFR (MDRD) Non-Af 77 BUN/Creatinine Ratio 10.9 Glucose 88 Calcium 8.9 Total Bilirubin 0.80 AST 20 ALT 20 Alkaline Phosphatase 109 C-React Prot Ext Range 51.00 H Total Protein 7.9 Albumin 3.4 Globulin 4.5 H Albumin/Globulin Ratio 0.8 L - Medical Decision Making The patient presents with right foot redness. He has a chronic nonhealing wound, but now has erythema and edema along with increasing pain. He does admit to subjective fevers and chills. Broad metabolic work-up was pursued. I did discuss his case with Dr. Painter, the patient's goal umpire. He agreed with plan for broad-spectrum antibiotics. He did request CT of the lower extremity to compare to the patient's prior from 3 weeks ago. This was ordered. The patient has been on oral antibiotics and now has increasing cellulitis, I do feel that he is going to require admission. Both his ESR and CRP have significantly increased from his last blood draw. Patient was discussed with the hospitalist and will be admitted.. Impression 1. Right foot cellulitis ED Disposition - Plan for ED Patient: Referrals: Ganga Acosta DO [Primary Care Provider] -
[2020-11-25] MEDS: HYDROcodone Bitartrate/Apap 5/325 Tablet PO (15:54)
[2020-11-25 16:03] LABS: Absolute Lymphocyte Count 1.96 X10^3/uL (0.83-4.51); Absolute Neutrophil Count 3.8 X10^3/uL (2.0-7.7); Basophil# 0.06 X10^3/uL; Basophil% 0.9 % (0-1); Eosinophil# 0.26 X10^3/uL; Eosinophils% 3.7 % (0-5); Hematocrit 44.6 % (40-54); Hemoglobin 15.1 g/dL (13.0-16.5); Lymphocyte # 1.96 X10^3/ul (0.83-4.51); Lymphocyte % 27.8 % (19-41); Mean Corp Hgb Conc 33.9 g/dL (32-36); Mean Corpuscular Hgb 32.1 pg (27.0-32.0); Mean Corpuscular Volume 94.9 fL (80-94); Mean Platelet Vol. 8.5 fl (6.2-12.0); Monocyte% 14.2 % (0-10); NRBC Flagged by Analyzer 0 % (0-5); Neutrophil # 3.75 X10^3/uL (2.7-7.7); Neutrophil % 53.3 % (47-70); Platelet Count 269 K/mm3 (150-450); RBC Distribution Width CV 12.1 % (11.6-14.6); RBC Distribution Width SD 42.5 fl (35.1-43.9)
[2020-11-25 16:07] LABS: Erythrocyte Sedimentation Rate 52 mm/hr (0-20)
--- NOTE | 2020-11-25 16:10 | RAD_ITS ---
STUDY: X-RAY - RIGHT FOOT CLINICAL: Male, 70 years old. foot pain TECHNIQUE: 3 view(s) of the foot. COMPARISON: Right foot x-ray dated July 16, 2020 FINDINGS: Marked soft tissue swelling is present over the dorsum of the foot. Stable cortical plate screw constructs of the first through third digits and midfoot. No demonstrated hardware complications. No acute fracture. Cystic lucency reidentified in the fifth digit phalanges and metatarsal head. No evidence of cortical erosion or bony destruction or active osteomyelitis. The IP joint of the great toe is mildly narrowed. Normal talus, calcaneus, and tarsal bones. Normal visualized subtalar, talonavicular, calcaneocuboid, tarsal and tarsometatarsal articulations. RAD/Foot min 3 Views IMPRESSION: 1. Significant soft tissue swelling over the dorsum of the foot Electronically Signed: Jostin Canales MD at 16:50 EDT , Service support ,
[2020-11-25 16:22] LABS: ALB/GLOB Ratio 0.8 RATIO (0.9-2.4); AST(SGOT) 20 U/L (15-37); Alanine Aminotransfer ALT/SGPT 20 U/L (16-61); Albumin, Serum 3.4 g/dL (3.2-5.0); Alkaline Phosphatase 109 U/L (45-117); Anion Gap 3 (5-15); BUN 11 mg/dL (7-18); BUN/Creat Ratio 10.9 RATIO (10-20); Calcium,Total 8.9 mg/dL (8.5-10.1); Chloride 104 mmol/L (98-107); Creatinine, Serum 1.01 mg/dL (0.70-1.30); EST Glomerular Filtration Rate 77 mL/min (>60); Est Glom Filt Rate - Afr Amer 93 mL/min (>60); Estimated Creatinine Clearance 69.27 ml/min; Globulin 4.5 g/dL (2.2-4.2); Glucose 88 mg/dL (74-106); Potassium 3.3 mmol/L (3.5-5.1); Protein, Total 7.9 g/dL (6.4-8.2); Sodium Level 137 mmol/L (136-145)
[2020-11-25 16:31] LABS: Lactic Acid 1.8 mmol/L (0.4-1.9)
--- NOTE | 2020-11-25 16:57 | PCM.HP.STD ---
Problem List (1) Chronic venous insufficiency Status: Chronic (2) History of prostate cancer Status: Chronic (3) Hyperlipidemia Status: Chronic (4) Asthma Status: Chronic Qualifiers: (5) Rheumatoid arthritis Status: Chronic (6) GERD (gastroesophageal reflux disease) Status: Chronic History of Present Illness Date of Admission: 11/25/20 Chief Complaint: Swelling and pain of the right foot. The patient is a 70 year old M with past medical history as mentioned above presented to the emergency room because of swelling and pain of the right foot. Patient mentioned that his symptoms started all of a sudden last night after his wrapped off his dressing on the right foot, his right foot was swollen and red and he started complaining of right foot pain. It is dull aching pain, mainly to the right foot, not radiating, follow-up sudden severity, associated with serous drainage from a small wound on the dorsal aspect of the right foot. Patient reports subjective fever but he did not check his temperature at home. Patient underwent right foot arthrodesis/fusion on July, for Charcot's foot and he had a small wound that will not close and he has been following up with wound care center as outpatient. He has been on doxycycline that was started by infectious disease 2 weeks ago and he supposed to be on doxycycline for 6 weeks. In the emergency department, patient's vital signs were stable. His routine blood work was remarkable for potassium of 3.3, otherwise normal. ESR and C-reactive protein was elevated. LFT was unremarkable. Lactic acid was normal. X-ray of the right foot revealed significant soft tissue swelling. CT scan of the right foot revealed soft tissue swelling, no abscess or gas formation. Patient is being admitted for acute right foot cellulitis with probably infected right foot hardware. Past Medical History Past Medical History (Chronic Problems): Chronic Problems (Last Updated 11/25/20 @ 16:[address] Namrata Zuñiga MD) Chronic venous insufficiency (Chronic) Peripheral neuropathy (Chronic) Osteopenia (Chronic) History of prostate cancer (Chronic) Asthma (Chronic) Obesity (BMI 30.0-34.9) (Chronic) Hyperlipidemia (Chronic) Ulcer of right foot with fat layer exposed (Chronic) Exposed orthopaedic hardware (Chronic) Delayed wound healing (Chronic) Kidney stones (Chronic) Asthma (Chronic) Rheumatoid arthritis (Chronic) Obesity (Chronic) Gastric ulcer (Chronic) DDD (degenerative disc disease), cervical (Chronic) Osteoarthritis (Chronic) BPH (benign prostatic hyperplasia) (Chronic) GERD (gastroesophageal reflux disease) (Chronic) KEZIA treated with BiPAP (Chronic) On BiPAP 10 Moderate persistent allergic asthma 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) Asbestos exposure (Chronic) Prostate cancer (Chronic) Medical History: Medical History (Last Updated 11/25/20 @ 16:[address] Namrata Zuñiga MD) Kidney stones (Chronic) N20.0 Asthma (Chronic) J45.909 Rheumatoid arthritis (Chronic) M06.9 Obesity (Chronic) E66.9 Gastric ulcer (Chronic) K25.9 DDD (degenerative disc disease), cervical (Chronic) M50.30 Osteoarthritis (Chronic) M19.90 BPH (benign prostatic hyperplasia) (Chronic) N40.0 GERD (gastroesophageal reflux disease) (Chronic) K21.9 KEZIA treated with BiPAP (Chronic) G47.33 On BiPAP 10 Moderate persistent allergic asthma 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) J45.40 Asbestos exposure (Chronic) Z77.090 Prostate cancer (Chronic) C61 Allergies gluten Allergy (Verified 11/25/20 15:06) Food Allergy peanut Allergy (Verified 11/25/20 15:06) Food Allergy yeast, dried [yeast] Allergy (Verified 11/25/20 15:06) Food Allergy environmental Allergy (Uncoded 11/25/20 15:06) PT UNSURE OF REACTION Home Medications: Ambulatory Orders Medication Instructions Recorded Tiotropium [place] [Spiriva 2 puff INHALATION DAILY 11/10/20 Respimat] Acetaminophen [Tylenol Arthritis] 650 mg PO DAILY 11/25/20 Cholecalciferol (Vitamin D3) 2,000 unit PO DAILY 11/25/20 [Vitamin D3] Cranberry Fruit Extract [Cranberry] 500 mg PO DAILY 11/25/20 Doxycycline Hyclate 100 mg PO BID 11/25/20 Famotidine 20 mg PO DAILY 11/25/20 Fluticasone 0.05% [Flonase Nasal 2 spray NASAL DAILY 11/25/20 [place]] Leflunomide 20 mg PO DAILY 11/25/20 Multivit-Min/FA/Lycopen/Lutein 1 tablet PO DAILY 11/25/20 [Centrum Silver Men Tablet] Ondansetron [Zofran Odt] 4 mg PO Q8H PRN PRN 11/25/20 Risedronate Sodium 150 mg PO QMONTH 11/25/20 Surgical History: Surgical History (Last Updated 11/25/20 @ 16:[address] Namrata Zuñiga MD) H/O prostatectomy (Inactive) Z90.79 History of carpal tunnel release (Inactive) Z98.890 History of inguinal hernia repair (Inactive) Z98.890, Z87.19 History of left heart catheterization (Inactive) Onset Date: 07/23/18 Z98.890 05/01/97 History of rhinoplasty (Inactive) Z98.890 History of tonsillectomy (Inactive) Z90.89 History of total knee arthroplasty (Inactive) Z96.659 Surgical History: - - Patient underwent endovenous laser ablation of the left great saphenous vein in the left small saphenous vein in 2005. He is undergone left knee replacement surgery x2. He also has undergone right knee replacement surgery. Prostatectomy has been performed in the past. He has had bilateral inguinal hernia repair. He has had surgery on his right second toe. Psychiatric History: No pertinent psych hx Lives: Spouse/ Significant Other Smoking Status: Never smoker Alcohol: None Drugs: None - *Family History Maternal Family History: Family History (Last Reviewed 01/29/20 @ 13:56 by Trisha Zheng) Mother Heart disease Sister Hypertension Paternal Family History: Family History (Last Reviewed 01/29/20 @ 13:56 by Trisha Zheng) Mother Heart disease Sister Hypertension Review of Systems Constitutional: Reports: Fever. Denies: Anorexia, Chills, Weakness Eyes: Denies: Blurred vision, Double vision, Drainage, Redness HEENT: Denies: Difficulty Hearing, Ear Pain, Eye Pain, Nasal Congestion, Sore Throat Cardiovascular: Denies: Chest Pain, Claudication, Chest Tightness, Edema, Palpitations, Syncope Respiratory: Denies: Cough, Hemoptysis, Pleuritic Pain, Sputum production, Wheezing Gastrointestinal: Denies: Abdominal Pain, Constipation, Diarrhea, Nausea, Vomiting Genitourinary: Denies: Dysuria, Frequency, Hematuria Musculoskeletal: Reports: Foot Pain. Denies: Arm Pain, Back Pain Skin: Denies: Dryness, Rash Neurological: Denies: Balance problems, Double vision, Slurred speech, Confusion, Headaches, Incoordination Psychiatric: Denies: Anxiety, Depression Endocrine: Denies: Change in Body Habitus, Polydipsia, Polyuria VTE Information - Inpt Only VTE Present on Admission: No VTE Mechan Device Prophylaxis: None VTE Pharm Prophylaxis ordered?: Yes - Physical Exam Vitals/I&O's: Vital Signs Temp Pulse Resp BP Pulse Ox 98.8 F 81 16 117/81 H 98 11/25/20 16:24 11/25/20 16:24 11/25/20 16:24 11/25/20 16:24 11/25/20 16:24 Oxygen Delivery Method Room Air Weight: 233 lb 11.04 oz Body Mass Index (BMI) 33.5 General: Alert, Oriented x3, Cooperative, No apparent distress HEENT: Atraumatic, PERRLA, EOMI, Normocephalic Oral: Moist Mucosa, No Gingival or Mucosal Lesions/ Ulcerations Neck: Supple, No JVD, Negative Carotid Bruits, Trachea Midline, Thyroid Normal Size and Texture Lungs: Clear to auscultation, No rhonchi, No wheeze, No rales, Diminished Cardiovascular: Regular rate, Regular Rhythm, Normal S1, Normal S2, PMI Normal Abdomen: Bowel Sounds Present, Soft, Non Tender, Non-Distended, No Hepato-splenomegaly Extremities: No clubbing, No cyanosis, Edema, - - Right foot: Diffuse swelling mainly on the distal aspect, erythema. Skin: No rashes, No breakdown Lymphatic: No Cervical, Supraclavicular, or Inguinal Adenopathy Neurological: Cranial nerves II-XII grossly intact, Motor Exam 5/5 strength throughout Psych/Mental Status: Normal Affect, Appropriate, Alert and oriented to time, place, person, mood and affect Laboratory Results 11/25/20 15:30: WBC 7.0, RBC 4.70, Hgb 15.1, Hct 44.6, MCV 94.9 H, MCH 32.1 H, MCHC 33.9, RDW Std Deviation 42.5, RDW Coeff of José Luis 12.1, Plt Count 269, MPV 8.5, Immature Gran % (Auto) 0.100, Neut % (Auto) 53.3, Lymph % (Auto) 27.8, [place] % (Auto) 14.2 H, Eos % (Auto) 3.7, Baso % (Auto) 0.9, Absolute Neuts (auto) 3.8, Absolute Lymphs (auto) 1.96, Nucleated RBC % 0, ESR 52 H 11/25/20 15:30: Sodium 137, Potassium 3.3 L, Chloride 104, Carbon Dioxide 30.0, Anion Gap 3 L, BUN 11, Creatinine 1.01, Estim Creat Clear Calc 69.27, Est GFR (MDRD) Af Amer 93, Est GFR (MDRD) Non-Af 77, BUN/Creatinine Ratio 10.9, Glucose 88, Calcium 8.9, Total Bilirubin 0.80, AST 20, ALT 20, Alkaline Phosphatase 109, C-React Prot Ext Range 51.00 H, Total Protein 7.9, Albumin 3.4, Globulin 4.5 H, Albumin/Globulin Ratio 0.8 L 11/25/20 15:30: Lactic Acid 1.8 Clinical Impression(s) from Imaging Studies Foot X-Ray 11/25/20 16:10 IMPRESSION: 1. Significant soft tissue swelling over the dorsum of the foot Electronically Signed: Jostin Canales MD at 16:50 EDT , Service support , Current Medications Sodium Chloride () 250 mls @ 15 mls/hr IV .[id number] PRN PRN Reason: Saline Flush Sodium Chloride () 250 mls @ 15 mls/hr IV .[id number] PRN PRN Reason: Additional IVPB Infusion Vancomycin HCl 1,500 mg/ (Sodium Chloride) 530 mls @ 250 mls/hr IV X1 ONE Stop: 11/25/20 19:07 Clinical Impression(s) from Imaging Studies Lower Extremity CT 11/25/20 15:19 IMPRESSION: 1. Moderate to significant soft tissue swelling. 2. No visualized abscess or subcutaneous gas. 3. Surgical ankylosis of the bony structures as described above Electronically Signed: Jostin Canales MD at 17:14 EDT , Service support , ADDENDUM: 11/25/20 1741 Foot X-Ray 11/25/20 16:10 IMPRESSION: 1. Significant soft tissue swelling over the dorsum of the foot Electronically Signed: Jostin Canales MD at 16:50 EDT , Service support , Assessment/Plan This is a 70 years old male patient presented to the emergency room because of right foot pain, swelling and redness, found to have acute right foot cellulitis in context of history of right foot arthrodesis/fusion for Charcot's foot, complicated by infected open wound and was on doxycycline for 2 weeks and is being admitted for evaluation and treatment. #1 acute right foot cellulitis/probably infected right foot hardware: In the setting of history of right foot arthrodesis/fusion that was done on October, Charcot's foot which was complicated by infection, has been on doxycycline for 2 weeks. X-ray of the right foot and CT scan reviewed. ESR and CRP are elevated. Plan: Admit to [facility] floor, blood culture, start IV Unasyn and vancomycin, podiatry medicine consult, IV fluids, OxyIR as needed for pain, Zofran as needed, Tylenol as needed, wound culture, MRSA wound screen by DNA, PT OT evaluation and treatment. #2 asthma: Stable, on room air. Plan for DuoNeb every 6 hours, albuterol as needed. #3 rheumatoid arthritis: Stable, continue rufinamide, Tylenol as needed. #4 GERD: Continue Pepcid. #5 history of prostate cancer: Status post surgery, stable, in remission. #6 benign prostatic hypertrophy: Currently, he is not on treatment. #7 DVT prophylaxis: Subcu Lovenox. This note was generated with [employer] dictation software. It may contain incorrect words, spelling, and punctuation that were not noted in checking the note before signing. Inpatient E&M: 20860 Init Hosp L2
--- NOTE | 2020-11-25 17:24 | CON.PCM_ITS ---
Reason for Consult Date of Consultation: 11/25/20 Reason for Consultation: Right foot infection History of Present Illness: The patient is a 70 year old gentleman with hx of medical problems including RA, asthma, COPD s/p right foot TMT and midfoot arthrodesis July 2020. Foot has been doing well except for small area of nonhealing wound down to plate. Patient has been most recently following at the wound center, also on oral Doxycycline daily for past 2 weeks - has seen Dr. Gomes. Patient is here with his - they have been changing dressing daily, and started to turn red and swollen. Patient presented to the ER today for further evaluation and management. Patient relates to episode of chills and fever. Currently patient is afebrile, WBC normal, ESR and CRP are elevated. Right foot xrays with no gas, CT scan with no abscess. Lactic acid is normal. Patient will be admitted for IV antibiotics and possible surgical intervention. Past Medical History Past Medical History (Chronic Problems): Chronic Problems (Last Updated 11/25/20 @ 16:[address] Namrata Zuñiga MD) Chronic venous insufficiency (Chronic) Peripheral neuropathy (Chronic) Osteopenia (Chronic) History of prostate cancer (Chronic) Asthma (Chronic) Obesity (BMI 30.0-34.9) (Chronic) Hyperlipidemia (Chronic) Ulcer of right foot with fat layer exposed (Chronic) Exposed orthopaedic hardware (Chronic) Delayed wound healing (Chronic) Kidney stones (Chronic) Asthma (Chronic) Rheumatoid arthritis (Chronic) Obesity (Chronic) Gastric ulcer (Chronic) DDD (degenerative disc disease), cervical (Chronic) Osteoarthritis (Chronic) BPH (benign prostatic hyperplasia) (Chronic) GERD (gastroesophageal reflux disease) (Chronic) KEZIA treated with BiPAP (Chronic) On BiPAP 10/ Moderate persistent allergic asthma 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) Asbestos exposure (Chronic) Prostate cancer (Chronic) Medical History: Medical History (Last Updated 11/25/20 @ 16:[address] Namrata Zuñiga MD) Kidney stones (Chronic) N20.0 Asthma (Chronic) J45.909 Rheumatoid arthritis (Chronic) M06.9 Obesity (Chronic) E66.9 Gastric ulcer (Chronic) K25.9 DDD (degenerative disc disease), cervical (Chronic) M50.30 Osteoarthritis (Chronic) M19.90 BPH (benign prostatic hyperplasia) (Chronic) N40.0 GERD (gastroesophageal reflux disease) (Chronic) K21.9 KEZIA treated with BiPAP (Chronic) G47.33 On BiPAP 10/6 Moderate persistent allergic asthma 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) J45.40 Asbestos exposure (Chronic) Z77.090 Prostate cancer (Chronic) C61 Allergies gluten Allergy (Verified 11/25/20 15:06) Food Allergy peanut Allergy (Verified 11/25/20 15:06) Food Allergy yeast, dried [yeast] Allergy (Verified 11/25/20 15:06) Food Allergy environmental Allergy (Uncoded 11/25/20 15:06) PT UNSURE OF REACTION Home Medications: Ambulatory Orders Medication Instructions Recorded Tiotropium [place] [Spiriva 2 puff INHALATION DAILY 11/10/20 Respimat] Acetaminophen [Tylenol Arthritis] 650 mg PO DAILY 11/25/20 Cholecalciferol (Vitamin D3) 2,000 unit PO DAILY 11/25/20 [Vitamin D3] Cranberry Fruit Extract [Cranberry] 500 mg PO DAILY 11/25/20 Doxycycline Hyclate 100 mg PO BID 11/25/20 Famotidine 20 mg PO DAILY 11/25/20 Fluticasone 0.05% [Flonase Nasal 2 spray NASAL DAILY 11/25/20 [place]] Leflunomide 20 mg PO DAILY 11/25/20 Multivit-Min/FA/Lycopen/Lutein 1 tablet PO DAILY 11/25/20 [Centrum Silver Men Tablet] Ondansetron [Zofran Odt] 4 mg PO Q8H PRN PRN 11/25/20 Risedronate Sodium 150 mg PO QMONTH 11/25/20 Surgical History: Surgical History (Last Updated 11/25/20 @ 16:[address] Namrata Zuñiga MD) H/O prostatectomy (Inactive) Z90.79 History of carpal tunnel release (Inactive) Z98.890 History of inguinal hernia repair (Inactive) Z98.890, Z87.19 History of left heart catheterization (Inactive) Onset Date: 07/23/18 Z98.890 05/01/97 History of rhinoplasty (Inactive) Z98.890 History of tonsillectomy (Inactive) Z90.89 History of total knee arthroplasty (Inactive) Z96.659 Surgical History: - - Patient underwent endovenous laser ablation of the left great saphenous vein in the left small saphenous vein in 2005. He is undergone left knee replacement surgery x2. He also has undergone right knee replacement surgery. Prostatectomy has been performed in the past. He has had bilateral inguinal hernia repair. He has had surgery on his right second toe. Psychiatric History: No pertinent psych hx Lives: Spouse/ Significant Other Smoking Status: Never smoker Alcohol: None Drugs: None - *Family History Maternal Family History: Family History (Last Reviewed 01/29/20 @ 13:56 by Trisha Zheng) Mother Heart disease Sister Hypertension History Items: No pertinent history Paternal Family History: Family History (Last Reviewed 01/29/20 @ 13:56 by Trisha Zheng) Mother Heart disease Sister Hypertension History Items: No pertinent history Review of Systems Constitutional: Reports: Chills, Fever Gastrointestinal: Denies: Nausea, Vomiting Skin: Reports: Wounds - Physical Exam Vitals/I&O's: Vital Signs Temp Pulse Resp BP Pulse Ox 98.8 F 81 16 117/81 H 98 11/25/20 17:00 11/25/20 17:00 11/25/20 17:00 11/25/20 17:00 11/25/20 17:00 Oxygen Delivery Method Room Air Weight: 106 kg Body Mass Index (BMI) 33.5 General: Alert, Oriented x3, Cooperative, No apparent distress Extremities: Capillary Refill Less than 3 Seconds, No Calf Tenderness, - - There is noted to be small wound to the medial right foot at level of midfoot - there is some serous drainage, and it is down to screw/plate, there is no necrosis, no fluctuance, no crepitus, no maloder, no visible abscess - there is increased edema and cellulitis noted. Musculoskeletal: - - there is no collapse of the midfoot, 1st TMT and midfoot stable - right foot, there is some diffuse weakness but no evidence of rupture of tendon or ligment of the right foot or ankle. Psych/Mental Status: Normal Affect, Appropriate, Alert and oriented to time, place, person, mood and affect Laboratory Results 11/25/20 15:30: WBC 7.0, RBC 4.70, Hgb 15.1, Hct 44.6, MCV 94.9 H, MCH 32.1 H, MCHC 33.9, RDW Std Deviation 42.5, RDW Coeff of José Luis 12.1, Plt Count 269, MPV 8.5, Immature Gran % (Auto) 0.100, Neut % (Auto) 53.3, Lymph % (Auto) 27.8, [place] % (Auto) 14.2 H, Eos % (Auto) 3.7, Baso % (Auto) 0.9, Absolute Neuts (auto) 3.8, Absolute Lymphs (auto) 1.96, Nucleated RBC % 0, ESR 52 H 11/25/20 15:30: Sodium 137, Potassium 3.3 L, Chloride 104, Carbon Dioxide 30.0, Anion Gap 3 L, BUN 11, Creatinine 1.01, Estim Creat Clear Calc 69.27, Est GFR (MDRD) Af Amer 93, Est GFR (MDRD) Non-Af 77, BUN/Creatinine Ratio 10.9, Glucose 88, Calcium 8.9, Total Bilirubin 0.80, AST 20, ALT 20, Alkaline Phosphatase 109, C-React Prot Ext Range 51.00 H, Total Protein 7.9, Albumin 3.4, Globulin 4.5 H, Albumin/Globulin Ratio 0.8 L 11/25/20 15:30: Lactic Acid 1.8 Current Medications Sodium Chloride () 250 mls @ 15 mls/hr IV .[id number] PRN PRN Reason: Saline Flush Sodium Chloride () 250 mls @ 15 mls/hr IV .[id number] PRN PRN Reason: Additional IVPB Infusion Vancomycin HCl 1,500 mg/ (Sodium Chloride) 530 mls @ 250 mls/hr IV X1 ONE Stop: 11/25/20 19:07 Assessment/Plan Right foot s/p TMT and midfoot arthrodesis Jul 2020 with nonhealing wound; with infection, concern for infected hardware Rheumatoid arthritis and other comorbidities Reviewed diagnostic data. Clinically there is evidence of infection to the right foot, ESR and CRP are elevated with small wound to the foot probing to plate/screw. A culture of the wound site has been obtained and sent to microbiology for further evaluation. The patient has been started on IV antibiotics - Unasyn and Vancomycin. Reviewed right foot xrays and CT scan. Discussed with radiologist Dr. Canales. We will further consider surgical options as well - hardware removal, and bone biopsy. Wound was painted with betadine soln, applied gauze, kerlix and billy dressing. Change daily. Keep right foot elevated. Partial weightbearing right foot, ok to put weight on heel. Podiatry will continue to follow.
--- NOTE | 2020-11-25 18:18 | NURSING ---
pt states that he has had both of his COVID vaccines shots.
--- NOTE | 2020-11-25 19:04 | PCM.RX.CS ---
Consult Pharmacy has been consulted to manage selected antiobiotic: Vancomycin Type of Consult: New start Suspected Infection: Skin/Soft tissue Labs: Sodium 137 mmol/L (136-145) 11/25/20 15:30 Potassium 3.3 mmol/L (3.5-5.1) L 11/25/20 15:30 Chloride 104 mmol/L (98-107) 11/25/20 15:30 Carbon Dioxide 30.0 mmol/L (21.0-32.0) 11/25/20 15:30 Anion Gap 3 (5-15) L 11/25/20 15:30 BUN 11 mg/dL (7-18) 11/25/20 15:30 Creatinine 1.01 mg/dL (0.70-1.30) 11/25/20 15:30 Est GFR (MDRD) Af Amer 93 mL/min (>60) 11/25/20 15:30 Est GFR (MDRD) Non-Af 77 mL/min (>60) 11/25/20 15:30 BUN/Creatinine Ratio 10.9 RATIO (10-20) 11/25/20 15:30 Glucose 88 mg/dL (74-106) 11/25/20 15:30 Goal Trough: 15-20 mcg/mL Pharmacy Plan for Drug Dosing: NEW START IV VANCOMYCIN Consulting Physician: Dr. Zuñiga Indication: Wound/Cellulitis Goal Trough: 15-20 SrCr: 1.01 CrCl: 80 mL/min (using AdjBW = 84.3kg) Comments: Vancomycin 1500mg IV x1 given in ed 11/25 @1807. Vancomcyin Dose: 1750mg IV Q12hr to start 11/26 @0600 Pending Level: 11/27/20 @0530, prior to 4th total dose per protocol Pharmacy Service will continue to monitor and adjust dosing as required.
[2020-11-25] MEDS: Ipratropium/Albuterol Sulfate 3 ML AMPUL.NEB INHALATION (19:18)
[2020-11-25 19:24] LABS: M R Staph aureus DNA By PCR Negative (Negative); Probe Check PASS; Staph aureus DNA By PCR NEGATIVE (Negative)
[2020-11-25] MEDS: oxyCODONE 5 MG Tablet PO (19:42)
[2020-11-25] MEDS: Potassium Chloride Oral Tablet 20 MEQ 60 MEQ PO (19:42)
[2020-11-25] MEDS: 0.9% Normal Saline 1,000 ML 75 ML IV (23:04)
[2020-11-26] VITALS (7 sets, daily range): BP systolic 102–135; BP diastolic 59–66; PULSE 88–94; RESP 16–18; TEMP 36.6–37.4; O2SAT 93–96
[2020-11-26] MEDS: Ipratropium/Albuterol Sulfate 3 ML AMPUL.NEB INHALATION ×3 (00:40→19:03)
[2020-11-26] MEDS: oxyCODONE 5 MG Tablet PO ×3 (03:09→21:35)
--- NOTE | 2020-11-26 08:55 | NM_ITS ---
Three-phase bone scan INDICATION: Open wound of the right foot with history of prior surgery July TECHNIQUE: 26.5 mCi of TECHNETIUM 99M labeled MDP injected intravenously with 3 phase imaging performed. COMPARISON: CT 11/25/2020 FINDINGS: There is positive three-phase activity involving the medial mid foot, particularly involving the medial cuneiform and base of the first (dominant), second and third (to lesser degree) metatarsals. This region correlates to area of fusion hardware evident on CT. Asymmetrical increased activity of the soft tissues involves the right lower leg and foot, as compared to the left side. There is otherwise normal distribution of isotope activity. NM/Bone Scan Three Phase IMPRESSION: Positive three-phase activity involving the medial mid foot in region of prior surgery. Osteomyelitis is considered possible although findings can also be seen in the prolonged postoperative period. Recommend additional evaluation with nuclear medicine WBC labeled study. Electronically Signed: Ronak Young MD ([place]) at 13:40 EDT , Service support ,
[2020-11-26] MEDS: Fluticasone 0.05% 1 SPRAY NASAL.SRY 2 SPRAY NASAL (08:58)
[2020-11-26] MEDS: 0.9% Normal Saline 1,000 ML 75 ML IV (08:58)
[2020-11-26] MEDS: Famotidine 20 MG Tablet PO (08:59)
[2020-11-26] MEDS: Enoxaparin 40 MG/0.4 ML Syringe SC (08:59)
--- NOTE | 2020-11-26 09:40 | NURSING ---
wound photo: right medial foot
--- NOTE | 2020-11-26 10:20 | CASEMGMT ---
PAOLO OLMOS Assessment: Face to Face with pt for initial transition planning/care coordination assessment. PAOLO OLMOS introduced self and role at [facility], pt voices understanding and consents to assessment. Pt is A/O x4 and answers all questions appropriately at this time. Pt lying in bed in no distress. Care providers, pharmacy, and demographics verified/updated. Admitting Dx: R foot cellulitis PCP: Karla Specialists: Sadaf, cardio; Raymundo, pulm; Aneudy/Victoria, ortho; Everardo,derm; Carmen, wound center; Madina, podiatry Preferred Pharmacy: [facility] in [place] Insurance: [employer] [facility] Prescription Benefit: yes LNOK: Eliza Fragoso, Catherine Patino, chirag Living Arrangements: Pt lives with in a 2 story house with 3 steps to enter with a rail. Pt reports being I in ADL's and denies concerns with at home. Transportation: Pt transports to app. Denies concerns with transportation. DME/HHC/SNF: Pt reports having a walker, crutches, grab bars in the shower, shower seat, cane, mobility scooter and CPAP. Pt uses [employer]. Pt has not had any previous HHC or SNF stays. Pt states no concerns with going home at time of dc. Discussed with pt the possibility of needing IV antibiotics. Pt states if that were the case, he would be open to having HHC SN in the home. Made aware CM will follow to see plan for patient. Pt states no further concerns/needs. Advised pt to ask CM if any further question/concerns/needs arise, voices understanding. Pt Goal: Home Plan: Home will follow for need of IV antibiotics, wound monitoring in the home.
--- NOTE | 2020-11-26 10:41 | PN_ITS ---
Subjective: Patient was seen this morning for follow up on right foot. He relates foot is feeling better, he relates he slept well, no fevers. No chills, nausea or vomiting. He is up in bed eating breakfast. - Physical Exam Vitals/I&O's: Vital Signs Temp Pulse Resp BP Pulse Ox 98 F 88 16 102/59 L 93 11/26/20 03:03 11/26/20 07:03 11/26/20 07:03 11/26/20 03:03 11/26/20 07:03 Oxygen Delivery Method Room Air Weight: 101.151 kg Body Mass Index (BMI) 32.0 Intake and Output for Last 24 Hours 11/24/20 11/25/20 11/26/20 23:59 23:59 23:59 Intake Total 750 / 750 1240.75 / 1240.75 Output Total 375 / 375 Balance 750 / 600 865.75 / 865.75 General: Alert, Oriented x3, Cooperative, No apparent distress Extremities: Capillary Refill Less than 3 Seconds, No Calf Tenderness, - - Right foot with small ulceration to the medial aspect, there is significantly less erythema, also improved edema, no purulence, no visible abscess, no maloder, no streaking, no crepitus, no fluctuance present to the right foot and no new areas of break down noted. Psych/Mental Status: Normal Affect, Appropriate, Alert and oriented to time, place, person, mood and affect Microbiology Past 72 Hours 11/25/20 17:10 Wound - Right Foot Gram Stain - Final Laboratory Results 11/25/20 15:30: WBC 7.0, RBC 4.70, Hgb 15.1, Hct 44.6, MCV 94.9 H, MCH 32.1 H, MCHC 33.9, RDW Std Deviation 42.5, RDW Coeff of José Luis 12.1, Plt Count 269, MPV 8.5, Immature Gran % (Auto) 0.100, Neut % (Auto) 53.3, Lymph % (Auto) 27.8, [place] % (Auto) 14.2 H, Eos % (Auto) 3.7, Baso % (Auto) 0.9, Absolute Neuts (auto) 3.8, Absolute Lymphs (auto) 1.96, Nucleated RBC % 0, ESR 52 H 11/25/20 15:30: Sodium 137, Potassium 3.3 L, Chloride 104, Carbon Dioxide 30.0, Anion Gap 3 L, BUN 11, Creatinine 1.01, Estim Creat Clear Calc 69.27, Est GFR (MDRD) Af Amer 93, Est GFR (MDRD) Non-Af 77, BUN/Creatinine Ratio 10.9, Glucose 88, Calcium 8.9, Total Bilirubin 0.80, AST 20, ALT 20, Alkaline Phosphatase 109, C-React Prot Ext Range 51.00 H, Total Protein 7.9, Albumin 3.4, Globulin 4.5 H, Albumin/Globulin Ratio 0.8 L 11/25/20 15:30: Lactic Acid 1.8 11/25/20 17:10: S.aureus Protein A PCR NEGATIVE, MRSA (PCR) Negative Current Medications Acetaminophen (Acetaminophen 325 Mg Tablet) 650 mg PO Q6H PRN PRN PRN Reason: Pain Score 1-10/Temp > 100.7 F Albuterol Sulfate (Albuterol 2.5 Mg/3 Ml Vial.Neb.) 2.5 mg INHALATION Q2H PRN PRN PRN Reason: Shortness of breath, wheezing Albuterol/Ipratropium (Ipratropium/Albuterol Sulfate 3 Ml Ampul.Neb) 3 ml INHALATION Q6H.RT [facility] [place] Last Admin: 11/26/20 07:06 Dose: 3 ml Documented by: Enoxaparin Sodium (Enoxaparin 40 Mg/0.4 Ml Syringe) 40 mg SC DAILY [facility] [place] Last Admin: 11/26/20 08:59 Dose: 40 mg Documented by: Famotidine (Famotidine 20 Mg Tablet) 20 mg PO DAILY [facility] [place] Last Admin: 11/26/20 08:59 Dose: 20 mg Documented by: Fluticasone Propionate (Fluticasone 0.05% 1 [place] Nasal.Sry) 2 spray NASAL DAILY [facility] [place] Last Admin: 11/26/20 08:58 Dose: 2 spray Documented by: Sodium Chloride () 1,000 mls @ 75 mls/hr IV .[id number] [facility] [place] Last Admin: 11/26/20 08:58 Dose: 75 mls/hr Documented by: Ampicillin Sodium/Sulbactam (Sodium 3 gm/ Sodium Chloride) 112 mls @ 150 mls/hr IV Q8 [facility] [place] Last Infusion: 11/26/20 05:46 Dose: Infused Documented by: Vancomycin IV Pharmacy to Dose (1 each/ Sodium Chloride) 500 mls @ 250 mls/hr IV PRN PRN; Protocol PRN Reason: Rx to Dose Vancomycin HCl 1,750 mg/ (Sodium Chloride) 535 mls @ 250 mls/hr IV Q12H [facility] Last Infusion: 11/26/20 08:09 Dose: Infused Documented by: Ondansetron HCl (Ondansetron 4 Mg/2 Ml Vial) 4 mg IV Q8H PRN PRN PRN Reason: NAUSEA/VOMITING Oxycodone HCl (Oxycodone 5 Mg Tablet) 5 mg PO Q4H PRN PRN PRN Reason: Pain Score 4-10 Last Admin: 11/26/20 03:09 Dose: 5 mg Documented by: Senna/Docusate Sodium (Senna/Docusate Sodium 1 Tablet) 2 tablet PO BID PRN PRN PRN Reason: Constipation Sodium Chloride (0.9% Saline Lock 10 Ml Syringe) 10 - 40 ml IV UD PRN PRN Reason: SALINE FLUSH Zolpidem Tartrate (Zolpidem Tartrate 5 Mg Tablet) 5 mg PO QHS PRN PRN PRN Reason: INSOMNIA Medical Necessity - Tobacco Use Smoking Status: Never smoker Tobacco Use: Non-smoker Assessment/Plan Right foot s/p TMT and midfoot arthrodesis Jul 2020 with nonhealing wound; with infection, concern for infected hardware Rheumatoid arthritis and other comorbidities Reviewed diagnostic data. Clinically significant improvement noted this morning compared to yesterday in the ER. Patient afebrile. A culture of the wound site has been obtained and sent to microbiology for further evaluation - MRSA DNA PCR negative, no organism on gram stain. The patient has been started on IV antibiotics - Unasyn and Vancomycin. Dr. Corea/LIBIA has been consulted. Reviewed right foot xrays and CT scan. Discussed with radiologist Dr. Canales. We will further consider surgical options as well - hardware removal, and bone biopsy. There is concern that if all of hardware is removed there would be instability to the 1st naviculocuneiform fusion site at this time. A bone scan tech99 has been ordered for further evaluation, then will plan to proceed with white cell labeled bone scan for further evaluation. Wound was painted with betadine soln, applied gauze, kerlix and billy dressing. Change daily. Keep right foot elevated. Partial weightbearing right foot, ok to put weight on heel. Podiatry will continue to follow. Discussed with Dr. Miller this morning.
--- NOTE | 2020-11-26 10:54 | NURSING ---
Pt states having diarrhea this AM & was having at home as well. Dr Miller made aware.
--- NOTE | 2020-11-26 13:59 | PCM.PN.HOSP ---
Reason for Visit: osteomyelitis Subjective: Feeling well. Developed diarrhea. Vitals/I&O's: Vital Signs Temp Pulse Resp BP Pulse Ox 37.1 C 94 18 112/64 94 11/26/20 09:00 11/26/20 09:00 11/26/20 09:00 11/26/20 09:00 11/26/20 09:00 Oxygen Delivery Method Room Air Weight: 101.151 kg Body Mass Index (BMI) 32.0 Intake and Output for Last 24 Hours 11/24/20 11/25/20 11/26/20 23:59 23:59 23:59 Intake Total 750 / 750 1840.75 / 1840.75 Output Total 375 / 375 Balance 750 / 600 1465.75 / 1465.75 General: Alert HEENT: Atraumatic, Normocephalic Oral: Moist Mucosa, No Gingival or Mucosal Lesions/ Ulcerations Neck: No Nodes, Thyroid Normal Size and Texture Lungs: Clear to auscultation, Normal air movement, No rhonchi, No wheeze, No rales Cardiovascular: Regular rate, Regular Rhythm, Normal S1, Normal S2, No murmurs Abdomen: Bowel Sounds Present, Soft, Non Tender, Non-Distended, No Hepato-splenomegaly Extremities: No edema, No Calf Tenderness Microbiology Past 72 Hours 11/25/20 17:10 Wound - Right Foot Gram Stain - Final 11/25/20 17:10 Wound - Right Foot Wound Culture - Preliminary No growth-Final to follow Laboratory Results 11/25/20 15:30: WBC 7.0, RBC 4.70, Hgb 15.1, Hct 44.6, MCV 94.9 H, MCH 32.1 H, MCHC 33.9, RDW Std Deviation 42.5, RDW Coeff of José Luis 12.1, Plt Count 269, MPV 8.5, Immature Gran % (Auto) 0.100, Neut % (Auto) 53.3, Lymph % (Auto) 27.8, [place] % (Auto) 14.2 H, Eos % (Auto) 3.7, Baso % (Auto) 0.9, Absolute Neuts (auto) 3.8, Absolute Lymphs (auto) 1.96, Nucleated RBC % 0, ESR 52 H 11/25/20 15:30: Sodium 137, Potassium 3.3 L, Chloride 104, Carbon Dioxide 30.0, Anion Gap 3 L, BUN 11, Creatinine 1.01, Estim Creat Clear Calc 69.27, Est GFR (MDRD) Af Amer 93, Est GFR (MDRD) Non-Af 77, BUN/Creatinine Ratio 10.9, Glucose 88, Calcium 8.9, Total Bilirubin 0.80, AST 20, ALT 20, Alkaline Phosphatase 109, C-React Prot Ext Range 51.00 H, Total Protein 7.9, Albumin 3.4, Globulin 4.5 H, Albumin/Globulin Ratio 0.8 L 11/25/20 15:30: Lactic Acid 1.8 11/25/20 17:10: S.aureus Protein A PCR NEGATIVE, MRSA (PCR) Negative Current Medications Acetaminophen (Acetaminophen 325 Mg Tablet) 650 mg PO Q6H PRN PRN PRN Reason: Pain Score 1-10/Temp > 100.7 F Albuterol Sulfate (Albuterol 2.5 Mg/3 Ml Vial.Neb.) 2.5 mg INHALATION Q2H PRN PRN PRN Reason: Shortness of breath, wheezing Albuterol/Ipratropium (Ipratropium/Albuterol Sulfate 3 Ml Ampul.Neb) 3 ml INHALATION Q6H.RT [facility] Last Admin: 11/26/20 07:06 Dose: 3 ml Documented by: Enoxaparin Sodium (Enoxaparin 40 Mg/0.4 Ml Syringe) 40 mg SC DAILY [facility] Last Admin: 11/26/20 08:59 Dose: 40 mg Documented by: Famotidine (Famotidine 20 Mg Tablet) 20 mg PO DAILY [facility] Last Admin: 11/26/20 08:59 Dose: 20 mg Documented by: Fluticasone Propionate (Fluticasone 0.05% 1 [place] Nasal.Sry) 2 spray NASAL DAILY [facility] Last Admin: 11/26/20 08:58 Dose: 2 spray Documented by: Sodium Chloride () 1,000 mls @ 75 mls/hr IV .[id number] [facility] Last Admin: 11/26/20 08:58 Dose: 75 mls/hr Documented by: Ampicillin Sodium/Sulbactam (Sodium 3 gm/ Sodium Chloride) 112 mls @ 150 mls/hr IV Q8 [facility] Last Infusion: 11/26/20 05:46 Dose: Infused Documented by: Vancomycin IV Pharmacy to Dose (1 each/ Sodium Chloride) 500 mls @ 250 mls/hr IV PRN PRN; Protocol PRN Reason: Rx to Dose Vancomycin HCl 1,750 mg/ (Sodium Chloride) 535 mls @ 250 mls/hr IV Q12H [facility] Last Infusion: 11/26/20 08:09 Dose: Infused Documented by: L-Arginine/L-Glutamine/Calcium HMB (Vince (Unflavored) Packet) 1 packet PO BIDCM [facility] Ondansetron HCl (Ondansetron 4 Mg/2 Ml Vial) 4 mg IV Q8H PRN PRN PRN Reason: NAUSEA/VOMITING Oxycodone HCl (Oxycodone 5 Mg Tablet) 5 mg PO Q4H PRN PRN PRN Reason: Pain Score 4-10 Last Admin: 11/26/20 03:09 Dose: 5 mg Documented by: Senna/Docusate Sodium (Senna/Docusate Sodium 1 Tablet) 2 tablet PO BID PRN PRN PRN Reason: Constipation Sodium Chloride (0.9% Saline Lock 10 Ml Syringe) 10 - 40 ml IV UD PRN PRN Reason: SALINE FLUSH Zolpidem Tartrate (Zolpidem Tartrate 5 Mg Tablet) 5 mg PO QHS PRN PRN PRN Reason: INSOMNIA Medical Necessity - Tobacco Use Smoking Status: Never smoker Tobacco Use: Non-smoker Assessment/Plan 1. Right foot osteomyelitis With infected hardware Discussed with Dr. Calhoun and recommended a bone scan. Given the recency of surgery, reluctance to remove out all the hardware as it may compromise his surgery. Bone scan positive for medial midfoot in the region of the prior surgery. Osteomyelitis considered possible. Recommendation for white blood cell labeled study. Defer additional imaging to infectious disease and podiatry. Tentative plan for partial hardware removal on the . On vancomycin and ampicillin/sulbactam. Follow-up cultures 2. Rheumatoid arthritis Given the underlying infection, patient's leflunomide will be held. Follow-up with rheumatology as outpatient 3. VTE prophylaxis with enoxaparin. Inpatient E&M: [id number] [facility] L2
--- NOTE | 2020-11-26 15:17 | CON.PCM_ITS ---
Problem List (1) Exposed orthopaedic hardware Status: Chronic Reason for Consult: foot infection Consulted by: Dr. Miller History of Present Illness: The patient is a 70 year old M with admission 2 weeks ago for R foot infection with exposed hardware. Discharged on po doxy. Reports 2 weeks of loose stool, about 2-3 times a day, no abd pain, no prior h/o cdiff. Yesterday, had new onset R foot severe pain, swelling, redness, worsened ulceration. No inciting event or contamination of wound. Has gotten covid shot. Came to ED, admitted on vanc/unasyn. Feeling better today. Full ROS performed and neg except as noted above. - Medical History Past Medical History (Chronic Problems): Chronic Problems (Last Updated 11/25/20 @ 16:[address] Namrata Zuñiga MD) Chronic venous insufficiency (Chronic) Peripheral neuropathy (Chronic) Osteopenia (Chronic) History of prostate cancer (Chronic) Asthma (Chronic) Obesity (BMI 30.0-34.9) (Chronic) Hyperlipidemia (Chronic) Ulcer of right foot with fat layer exposed (Chronic) Exposed orthopaedic hardware (Chronic) Delayed wound healing (Chronic) Kidney stones (Chronic) Asthma (Chronic) Rheumatoid arthritis (Chronic) Obesity (Chronic) Gastric ulcer (Chronic) DDD (degenerative disc disease), cervical (Chronic) Osteoarthritis (Chronic) BPH (benign prostatic hyperplasia) (Chronic) GERD (gastroesophageal reflux disease) (Chronic) KEZIA treated with BiPAP (Chronic) On BiPAP 05/18 Moderate persistent allergic asthma 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) Asbestos exposure (Chronic) Prostate cancer (Chronic) Allergies/Adverse Reactions: Allergies gluten Allergy (Verified 11/25/20 15:06) Food Allergy peanut Allergy (Verified 11/25/20 15:06) Food Allergy yeast, dried [yeast] Allergy (Verified 11/25/20 15:06) Food Allergy environmental Allergy (Uncoded 11/25/20 15:06) PT UNSURE OF REACTION Home Medications: Ambulatory Orders Medication Instructions Recorded Tiotropium [place] [Spiriva 2 puff INHALATION DAILY 11/10/20 Respimat] Acetaminophen [Tylenol Arthritis] 650 mg PO DAILY 11/25/20 Cholecalciferol (Vitamin D3) 2,000 unit PO DAILY 11/25/20 [Vitamin D3] Cranberry Fruit Extract [Cranberry] 500 mg PO DAILY 11/25/20 Doxycycline Hyclate 100 mg PO BID 11/25/20 Famotidine 20 mg PO DAILY 11/25/20 Fluticasone 0.05% [Flonase Nasal 2 spray NASAL DAILY 11/25/20 [place]] Leflunomide 20 mg PO DAILY 11/25/20 Multivit-Min/FA/Lycopen/Lutein 1 tablet PO DAILY 11/25/20 [Centrum Silver Men Tablet] Ondansetron [Zofran Odt] 4 mg PO Q8H PRN PRN 11/25/20 Risedronate Sodium 150 mg PO QMONTH 11/25/20 - Social History SMOKING STATUS:: Never smoker Vital Signs Temp Pulse Resp BP Pulse Ox 98.7 F 94 18 112/64 94 11/26/20 09:00 11/26/20 09:00 11/26/20 09:00 11/26/20 09:00 11/26/20 09:00 Oxygen Delivery Method Room Air Weight: 101.151 kg Body Mass Index (BMI) 32.0 Microbiology Past 72 Hours 11/25/20 17:10 Gram Stain - Final Wound - Right Foot Wound Culture - Preliminary No growth-Final to follow Laboratory Tests Past 24 Hrs 11/25/20 11/25/20 11/25/20 15:30 15:30 15:30 WBC 7.0 RBC 4.70 Hgb 15.1 Hct 44.6 MCV 94.9 H MCH 32.1 H MCHC 33.9 RDW Std Deviation 42.5 RDW Coeff of José Luis 12.1 Plt Count 269 MPV 8.5 Immature Gran % (Auto) 0.100 Neut % (Auto) 53.3 Lymph % (Auto) 27.8 [place] % (Auto) 14.2 H Eos % (Auto) 3.7 Baso % (Auto) 0.9 Absolute Neuts (auto) 3.8 Absolute Lymphs (auto) 1.96 Nucleated RBC % 0 ESR 52 H Sodium 137 Potassium 3.3 L Chloride 104 Carbon Dioxide 30.0 Anion Gap 3 L BUN 11 Creatinine 1.01 Estim Creat Clear Calc 69.27 Est GFR (MDRD) Af Amer 93 Est GFR (MDRD) Non-Af 77 BUN/Creatinine Ratio 10.9 Glucose 88 Lactic Acid 1.8 Calcium 8.9 Total Bilirubin 0.80 AST 20 ALT 20 Alkaline Phosphatase 109 C-React Prot Ext Range 51.00 H Total Protein 7.9 Albumin 3.4 Globulin 4.5 H Albumin/Globulin Ratio 0.8 L S.aureus Protein A PCR MRSA (PCR) 11/25/20 17:10 WBC RBC Hgb Hct MCV MCH MCHC RDW Std Deviation RDW Coeff of José Luis Plt Count MPV Immature Gran % (Auto) Neut % (Auto) Lymph % (Auto) [place] % (Auto) Eos % (Auto) Baso % (Auto) Absolute Neuts (auto) Absolute Lymphs (auto) Nucleated RBC % ESR Sodium Potassium Chloride Carbon Dioxide Anion Gap BUN Creatinine Estim Creat Clear Calc Est GFR (MDRD) Af Amer Est GFR (MDRD) Non-Af BUN/Creatinine Ratio Glucose Lactic Acid Calcium Total Bilirubin AST ALT Alkaline Phosphatase C-React Prot Ext Range Total Protein Albumin Globulin Albumin/Globulin Ratio S.aureus Protein A PCR NEGATIVE MRSA (PCR) Negative - Other Studies Radiology: [] reviewed Other Studies: [] Route of nutrition/ use of supplements: [] Nutritional Intake: [] IV Site: [] [place]ado Catheter: [] - Physical Exam General: Alert, Oriented x3, Cooperative HEENT: Atraumatic, PERRLA, EOMI Neck: Supple, No Nodes Lungs: Clear to auscultation, Normal air movement Cardiovascular: Regular rate, Regular Rhythm Abdomen: Soft, Non Tender, Non-Distended Extremities: Edema Skin: Ulcer/ Wound - reviewed photo IV Site: Peripheral, without redness Musculoskeletal: No Tenderness to Palpation of Joints or Extremities Neurological: Cranial nerves II-XII grossly intact - Assessment/Plan Antibiotics: [] Assessment/Plan: [] R foot infection with hardware present - had been on po doxy for MRSE. Worsened while at home, podiatry following, imaging studies pending. Cont empiric vanc/unasyn. Will follow, thank you
--- NOTE | 2020-11-26 16:54 | NURSING ---
STOOL SENT FOR CDIFF. LAB CALLED FLOOR TO SAY THEY CANNOT RUN IT FOR CDIFF BECAUSE IT WAS SOFT, FORMED. CORTEXT TO DR STEVENS REGARDING SAME.
--- NOTE | 2020-11-26 17:25 | NURSING ---
ORDER RECEIVED TO TAKE PT OUT OF [facility] SINCE LAST STOOL WAS NOT DIARRHEA
[2020-11-26] MEDS: Ondansetron 4 MG/2 ML Vial IV (17:50)
[2020-11-26] MEDS: 0.9% Saline Lock 10 ML Syringe IV (17:50)
--- NOTE | 2020-11-26 18:00 | NURSING ---
PT C/O SORE THROAT. DR STEVENS NOTIFIED, NEW ORDERS RECEIVED.
[2020-11-26] MEDS: BENZOCAINE/MENTHOL 1 LOZENGE 2 LOZENGE MUCOUS MEM (18:33)
[2020-11-26] MEDS: Acetaminophen 325 MG Tablet 650 MG PO (21:34)
[2020-11-27] VITALS (8 sets, daily range): BP systolic 103–133; BP diastolic 56–74; PULSE 73–99; RESP 14–18; TEMP 36.4–37.1; O2SAT 93–97
[2020-11-27] MEDS: Ipratropium/Albuterol Sulfate 3 ML AMPUL.NEB INHALATION ×4 (01:48→18:50)
[2020-11-27] MEDS: 0.9% Normal Saline 1,000 ML 75 ML IV ×2 (03:59→14:20)
[2020-11-27 06:14] LABS: Absolute Lymphocyte Count 1.51 X10^3/uL (0.83-4.51); Absolute Neutrophil Count 2.5 X10^3/uL (2.0-7.7); Basophil# 0.03 X10^3/uL; Basophil% 0.6 % (0-1); Hematocrit 38.8 % (40-54); Lymphocyte # 1.51 X10^3/ul (0.83-4.51); Lymphocyte % 30.2 % (19-41); Mean Corp Hgb Conc 33.5 g/dL (32-36); Mean Corpuscular Hgb 32.1 pg (27.0-32.0); Mean Corpuscular Volume 95.8 fL (80-94); Mean Platelet Vol. 8.7 fl (6.2-12.0); Monocyte# 0.67 X10^3/uL; Monocyte% 13.4 % (0-10); Neutrophil # 2.47 X10^3/uL (2.7-7.7); Neutrophil % 49.4 % (47-70); Platelet Count 234 K/mm3 (150-450); RBC Distribution Width CV 12.2 % (11.6-14.6); RBC Distribution Width SD 42.6 fl (35.1-43.9); Red Blood Count 4.05 M/mm3 (4.6-6.2)
[2020-11-27] MEDS: oxyCODONE 5 MG Tablet PO ×3 (06:42→19:35)
[2020-11-27] MEDS: Acetaminophen 325 MG Tablet 650 MG PO ×2 (06:42→19:35)
[2020-11-27 06:44] LABS: Anion Gap 8 (5-15); BUN 10 mg/dL (7-18); BUN/Creat Ratio 10.8 RATIO (10-20); Calcium,Total 7.9 mg/dL (8.5-10.1); Chloride 108 mmol/L (98-107); Creatinine, Serum 0.93 mg/dL (0.70-1.30); EST Glomerular Filtration Rate 85 mL/min (>60); Est Glom Filt Rate - Afr Amer 103 mL/min (>60); Estimated Creatinine Clearance 75.22 ml/min; Glucose 87 mg/dL (74-106); Potassium 4.2 mmol/L (3.5-5.1); Sodium Level 140 mmol/L (136-145)
[2020-11-27 06:45] LABS: Vancomycin, Trough Level 19.2 ug/mL (5.0-15.0)
--- NOTE | 2020-11-27 06:51 | PCM.RX.CS ---
Consult Pharmacy has been consulted to manage selected antiobiotic: Vancomycin Type of Consult: Follow-up Suspected Infection: Skin/Soft tissue Prior Doses of Antibiotics Received/Current Regimen: Medications Vancomycin HCl 1,750 mg/ (Sodium Chloride) 535 mls @ 250 mls/hr IV Q12H [facility] Last Admin: 11/27/20 06:17 Dose: 250 mls/hr Labs: Sodium 140 mmol/L (136-145) 11/27/20 05:30 Potassium 4.2 mmol/L (3.5-5.1) 11/27/20 05:30 Chloride 108 mmol/L (98-107) H 11/27/20 05:30 Carbon Dioxide 24.0 mmol/L (21.0-32.0) 11/27/20 05:30 Anion Gap 8 (5-15) 11/27/20 05:30 BUN 10 mg/dL (7-18) 11/27/20 05:30 Creatinine 0.93 mg/dL (0.70-1.30) 11/27/20 05:30 Est GFR (MDRD) Af Amer 103 mL/min (>60) 11/27/20 05:30 Est GFR (MDRD) Non-Af 85 mL/min (>60) 11/27/20 05:30 BUN/Creatinine Ratio 10.8 RATIO (10-20) 11/27/20 05:30 Glucose 87 mg/dL (74-106) 11/27/20 05:30 Vancomycin Trough 19.2 ug/mL (5.0-15.0) H 11/27/20 05:30 Microbiology: Microbiology 11/25/20 17:10 Wound - Right Foot Gram Stain - Final 11/25/20 17:10 Wound - Right Foot Wound Culture - Preliminary No growth-Final to follow Weight used for dosin kg Estimated Creatinine Clearance: 75 Goal Trough: 15-20 mcg/mL Pharmacy Plan for Drug Dosing: Vancomycin trough level of 19.2 was within target range. Will continue same dosing and re-draw trough 11/30/20. Pharmacy Service will continue to monitor and adjust dosing as required. Follow-Up Labs: Trough Vancomycin Labs to be done on [date and time ordered]: 11/30/20 @0530
[2020-11-27] MEDS: Juven (unflavored) Packet 1 PACKET PO ×2 (09:06→17:53)
--- NOTE | 2020-11-27 09:25 | PN_ITS ---
<Ralph Melendez PA - Last Filed: 11/27/20 09:25> Subjective: Patient is a 70-year-old male comfortably resting in bed, alert and oriented x3. Patient reports that he is feeling well and that his diarrhea from yesterday is still present, however it has much improved. Patient is aware of the potential surgical plan from podiatry and was able to communicate that plan to this provider. Denies fever. nausea/vomiting, chills, chest pain, SOB, palpitations or leg pain/swelling. Objective: Clinical Impression(s) from Imaging Studies Lower Extremity CT 11/25/20 15:19 IMPRESSION: 1. Moderate to significant soft tissue swelling. 2. No visualized abscess or subcutaneous gas. 3. Surgical ankylosis of the bony structures as described above Electronically Signed: Jostin Canales MD at 17:14 EDT , Service support , ADDENDUM: 11/25/20 1741 Foot X-Ray 11/25/20 16:10 IMPRESSION: 1. Significant soft tissue swelling over the dorsum of the foot Electronically Signed: Jostin Canales MD at 16:50 EDT , Service support , Bone Scan Nuclear Medicine 11/26/20 08:55 IMPRESSION: Positive three-phase activity involving the medial mid foot in region of prior surgery. Osteomyelitis is considered possible although findings can also be seen in the prolonged postoperative period. Recommend additional evaluation with nuclear medicine WBC labeled study. Electronically Signed: Ronak Young MD ([place]) at 13:40 EDT , Service support , Microbiology 11/25/20 17:10 Wound - Right Foot Gram Stain - Final 11/25/20 17:10 Wound - Right Foot Wound Culture - Preliminary No growth-Final to follow Vitals/I&O's: Vital Signs Temp Pulse Resp BP Pulse Ox 98.6 F 73 16 127/74 H 94 11/27/20 06:43 11/27/20 07:33 11/27/20 07:33 11/27/20 06:43 11/27/20 07:33 Oxygen Delivery Method Room Air Weight: 223 lb Body Mass Index (BMI) 32.0 Intake and Output for Last 24 Hours 11/25/20 11/26/20 11/27/20 23:59 23:59 23:59 Intake Total 750 / 750 3819.75 / 3819.75 732 / 732 Output Total 525 / 525 200 / 200 Balance 750 / 600 3294.75 / 3294.75 532 / 532 General: Alert, Oriented x3, Cooperative HEENT: Atraumatic Neck: Supple, No JVD, Negative Carotid Bruits Lungs: Clear to auscultation, Normal air movement Cardiovascular: Regular rate, No murmurs Abdomen: Bowel Sounds Present, Soft, Non Tender Extremities: No edema, Capillary Refill Less than 3 Seconds, - - Right lower extremity appropriately wrapped. Skin: No rashes, No breakdown Musculoskeletal: No Tenderness to Palpation of Joints or Extremities Neurological: Cranial nerves II-XII grossly intact Psych/Mental Status: Normal Affect, Appropriate Microbiology Past 72 Hours 11/25/20 17:10 Wound - Right Foot Gram Stain - Final 11/25/20 17:10 Wound - Right Foot Wound Culture - Preliminary No growth-Final to follow Laboratory Results 11/27/20 05:30: Vancomycin Trough 19.2 H 11/27/20 05:30: WBC 5.0, RBC 4.05 L, Hgb 13.0, Hct 38.8 L, MCV 95.8 H, MCH 32.1 H, MCHC 33.5, RDW Std Deviation 42.6, RDW Coeff of José Luis 12.2, Plt Count 234, MPV 8.7, Immature Gran % (Auto) 0.400, Neut % (Auto) 49.4, Lymph % (Auto) 30.2, [place] % (Auto) 13.4 H, Eos % (Auto) 6.0 H, Baso % (Auto) 0.6, Absolute Neuts (auto) 2.5, Absolute Lymphs (auto) 1.51, Nucleated RBC % 1.0 11/27/20 05:30: Sodium 140, Potassium 4.2, Chloride 108 H, Carbon Dioxide 24.0, Anion Gap 8, BUN 10, Creatinine 0.93, Estim Creat Clear Calc 75.22, Est GFR (MDRD) Af Amer 103, Est GFR (MDRD) Non-Af 85, BUN/Creatinine Ratio 10.8, Glucose 87, Calcium 7.9 L Current Medications Acetaminophen (Acetaminophen 325 Mg Tablet) 650 mg PO Q6H PRN PRN PRN Reason: Pain Score 1-10/Temp > 100.7 F Last Admin: 11/27/20 06:42 Dose: 650 mg Documented by: Albuterol Sulfate (Albuterol 2.5 Mg/3 Ml Vial.Neb.) 2.5 mg INHALATION Q2H PRN PRN PRN Reason: Shortness of breath, wheezing Albuterol/Ipratropium (Ipratropium/Albuterol Sulfate 3 Ml Ampul.Neb) 3 ml INHALATION Q6H.RT [facility] Last Admin: 11/27/20 07:33 Dose: 3 ml Documented by: Enoxaparin Sodium (Enoxaparin 40 Mg/0.4 Ml Syringe) 40 mg SC DAILY [facility] Last Admin: 11/26/20 08:59 Dose: 40 mg Documented by: Famotidine (Famotidine 20 Mg Tablet) 20 mg PO DAILY [facility] Last Admin: 11/26/20 08:59 Dose: 20 mg Documented by: Fluticasone Propionate (Fluticasone 0.05% 1 [place] Nasal.Sry) 2 spray NASAL DAILY [facility] Last Admin: 11/26/20 08:58 Dose: 2 spray Documented by: Sodium Chloride () 1,000 mls @ 75 mls/hr IV .[id number] [facility] Last Infusion: 11/27/20 05:07 Dose: 0 mls/hr Documented by: Ampicillin Sodium/Sulbactam (Sodium 3 gm/ Sodium Chloride) 112 mls @ 150 mls/hr IV Q8 [facility] Last Infusion: 11/27/20 05:48 Dose: Infused Documented by: Vancomycin IV Pharmacy to Dose (1 each/ Sodium Chloride) 500 mls @ 250 mls/hr IV PRN PRN; Protocol PRN Reason: Rx to Dose Vancomycin HCl 1,750 mg/ (Sodium Chloride) 535 mls @ 250 mls/hr IV Q12H [facility] Last Infusion: 11/27/20 09:02 Dose: Infused Documented by: L-Arginine/L-Glutamine/Calcium HMB (Vince (Unflavored) Packet) 1 packet PO BIDCM [facility] Last Admin: 11/27/20 09:06 Dose: 1 packet Documented by: Ondansetron HCl (Ondansetron 4 Mg/2 Ml Vial) 4 mg IV Q8H PRN PRN PRN Reason: NAUSEA/VOMITING Last Admin: 11/26/20 17:50 Dose: 4 mg Documented by: Oxycodone HCl (Oxycodone 5 Mg Tablet) 5 mg PO Q4H PRN PRN PRN Reason: Pain Score 4-10 Last Admin: 11/27/20 06:42 Dose: 5 mg Documented by: Senna/Docusate Sodium (Senna/Docusate Sodium 1 Tablet) 2 tablet PO BID PRN PRN PRN Reason: Constipation Sodium Chloride (0.9% Saline Lock 10 Ml Syringe) 10 - 40 ml IV UD PRN PRN Reason: SALINE FLUSH Last Admin: 11/26/20 17:50 Dose: 10 ml Documented by: Throat Lozenges (Benzocaine/Menthol 1 Lozenge) 2 lozenge MUCOUS MEM Q2H PRN PRN PRN Reason: SORE THROAT Last Admin: 11/26/20 18:33 Dose: 2 lozenge Documented by: Zolpidem Tartrate (Zolpidem Tartrate 5 Mg Tablet) 5 mg PO QHS PRN PRN PRN Reason: INSOMNIA STROKE Vital Signs/Narrative: Vital Signs Temp Pulse Resp BP Pulse Ox 11/27/20 07:33 73 16 94 11/27/20 06:43 98.6 F 87 16 127/74 H 94 Medical Necessity - Tobacco Use Smoking Status: Never smoker Tobacco Use: Non-smoker Assessment/Plan Upon my physical exam patient was feeling well, and only complaining of mild diarrhea that is steadily improving per patient. Patient is mentating well, he is not confused and was able to brief me of his potential surgical plan. 1) Right foot osteomyelitis with infected hardware: Podiatry and ID following. NM bone scan revealed three-phase activity involving the medial mid foot in region of prior surgery, osteomyelitis possible, recommendation for additional WBC labeled study. Additional imaging decision pending podiatry. Tentative plan for partial hardware removal on the . Wound dressing changes daily, per podiatry. Keep right foot elevated, partial weight bearing of the right foot. No growth in wound culture. Blood cultures still pending. Continue Unasyn and Vancomycin per ID. Blood 2) Rheumatoid arthritis: Continue to hold Leflunomide, follow up with rheumatology as outpatient. DVT prophylaxis -Lovenox [place] Patient seen by Ralph Melendez PA-C, under the supervision of Dr. Miller. <Ayan Miller - Last Filed: 11/27/20 12:13> Subjective: Yesterday had some loose stools and then became more formed later. No further diarrhea. Vitals/I&O's: Vital Signs Temp Pulse Resp BP Pulse Ox 36.9 C 86 18 103/66 93 11/27/20 09:00 11/27/20 09:00 11/27/20 09:00 11/27/20 09:00 11/27/20 09:00 Oxygen Delivery Method Room Air Weight: 101.151 kg Body Mass Index (BMI) 32.0 Intake and Output for Last 24 Hours 11/25/20 11/26/20 11/27/20 23:59 23:59 23:59 Intake Total 750 / 750 3819.75 / 3819.75 732 / 732 Output Total 525 / 525 200 / 200 Balance 750 / 600 3294.75 / 3294.75 532 / 532 General: Alert, Cooperative HEENT: Atraumatic Lungs: Clear to auscultation, Normal air movement Cardiovascular: Regular rate, No murmurs Abdomen: Bowel Sounds Present, Soft, Non Tender Extremities: No edema, No Calf Tenderness, - Skin: No rashes, No breakdown Psych/Mental Status: Normal Affect, Appropriate Microbiology Past 72 Hours 11/25/20 17:10 Wound - Right Foot Gram Stain - Final 11/25/20 17:10 Wound - Right Foot Wound Culture - Preliminary Staphylococcus species Laboratory Results 11/27/20 05:30: Vancomycin Trough 19.2 H 11/27/20 05:30: WBC 5.0, RBC 4.05 L, Hgb 13.0, Hct 38.8 L, MCV 95.8 H, MCH 32.1 H, MCHC 33.5, RDW Std Deviation 42.6, RDW Coeff of José Luis 12.2, Plt Count 234, MPV 8.7, Immature Gran % (Auto) 0.400, Neut % (Auto) 49.4, Lymph % (Auto) 30.2, [place]ickman % (Auto) 13.4 H, Eos % (Auto) 6.0 H, Baso % (Auto) 0.6, Absolute Neuts (auto) 2.5, Absolute Lymphs (auto) 1.51, Nucleated RBC % 1.0 11/27/20 05:30: Sodium 140, Potassium 4.2, Chloride 108 H, Carbon Dioxide 24.0, Anion Gap 8, BUN 10, Creatinine 0.93, Estim Creat Clear Calc 75.22, Est GFR (MDRD) Af Amer 103, Est GFR (MDRD) Non-Af 85, BUN/Creatinine Ratio 10.8, Glucose 87, Calcium 7.9 L Current Medications Acetaminophen (Acetaminophen 325 Mg Tablet) 650 mg PO Q6H PRN PRN PRN Reason: Pain Score 1-10/Temp > 100.7 F Last Admin: 11/27/20 06:42 Dose: 650 mg Documented by: Albuterol Sulfate (Albuterol 2.5 Mg/3 Ml Vial.Neb.) 2.5 mg INHALATION Q2H PRN PRN PRN Reason: Shortness of breath, wheezing Albuterol/Ipratropium (Ipratropium/Albuterol Sulfate 3 Ml Ampul.Neb) 3 ml INHALATION Q6H.RT [facility] Last Admin: 11/27/20 07:33 Dose: 3 ml Documented by: Enoxaparin Sodium (Enoxaparin 40 Mg/0.4 Ml Syringe) 40 mg SC DAILY [facility] Last Admin: 11/27/20 10:32 Dose: 40 mg Documented by: Famotidine (Famotidine 20 Mg Tablet) 20 mg PO DAILY [facility] Last Admin: 11/27/20 10:36 Dose: 20 mg Documented by: Fluticasone Propionate (Fluticasone 0.05% 1 [place] Nasal.Sry) 2 spray NASAL DAILY [facility] Last Admin: 11/27/20 10:32 Dose: 2 spray Documented by: Sodium Chloride () 1,000 mls @ 75 mls/hr IV .[id number] [facility] Last Infusion: 11/27/20 05:07 Dose: 0 mls/hr Documented by: Ampicillin Sodium/Sulbactam (Sodium 3 gm/ Sodium Chloride) 112 mls @ 150 mls/hr IV Q8 [facility] Last Infusion: 11/27/20 05:48 Dose: Infused Documented by: Vancomycin IV Pharmacy to Dose (1 each/ Sodium Chloride) 500 mls @ 250 mls/hr IV PRN PRN; Protocol PRN Reason: Rx to Dose Vancomycin HCl 1,750 mg/ (Sodium Chloride) 535 mls @ 250 mls/hr IV Q12H [facility] Last Infusion: 11/27/20 09:02 Dose: Infused Documented by: L-Arginine/L-Glutamine/Calcium HMB (Vince (Unflavored) Packet) 1 packet PO BIDCM [facility] Last Admin: 11/27/20 09:06 Dose: 1 packet Documented by: Ondansetron HCl (Ondansetron 4 Mg/2 Ml Vial) 4 mg IV Q8H PRN PRN PRN Reason: NAUSEA/VOMITING Last Admin: 11/26/20 17:50 Dose: 4 mg Documented by: Oxycodone HCl (Oxycodone 5 Mg Tablet) 5 mg PO Q4H PRN PRN PRN Reason: Pain Score 4-10 Last Admin: 11/27/20 06:42 Dose: 5 mg Documented by: Senna/Docusate Sodium (Senna/Docusate Sodium 1 Tablet) 2 tablet PO BID PRN PRN PRN Reason: Constipation Sodium Chloride (0.9% Saline Lock 10 Ml Syringe) 10 - 40 ml IV UD PRN PRN Reason: SALINE FLUSH Last Admin: 11/26/20 17:50 Dose: 10 ml Documented by: Throat Lozenges (Benzocaine/Menthol 1 Lozenge) 2 lozenge MUCOUS MEM Q2H PRN PRN PRN Reason: SORE THROAT Last Admin: 11/26/20 18:33 Dose: 2 lozenge Documented by: Zolpidem Tartrate (Zolpidem Tartrate 5 Mg Tablet) 5 mg PO QHS PRN PRN PRN Reason: INSOMNIA STROKE Vital Signs/Narrative: Vital Signs Temp Pulse Resp BP Pulse Ox 11/27/20 09:00 36.9 C 86 18 103/66 93 Assessment/Plan Patient seen and examined independently. Data reviewed. I agree with the above note by the physician assistant professor of business. 1. Right foot osteomyelitis With infected hardware Discussed with Dr. Painter and recommended a bone scan. Given the recency of surgery, reluctance to remove out all the hardware as it may compromise his surgery. Bone scan positive for medial midfoot in the region of the prior surgery. Osteomyelitis considered possible. Recommendation for white blood cell labeled study. Defer additional imaging to infectious disease and podiatry. Tentative plan for partial hardware removal on the . On vancomycin and ampicillin/sulbactam. Follow-up cultures Patient asking if there be any issue in regards to compromising his left knee replacement. Told him that given that this is the contralateral side and with the absence of bacteremia that the likelihood would be low, however, he is at higher risk given his immunocompromise status, having hardware in the knee and having a current infection. He expressed understanding of his higher than average risk of that potential get infected. WBC scan pending 2. Rheumatoid arthritis Given the underlying infection, patient's leflunomide will be held. Follow-up with rheumatology as outpatient 3. VTE prophylaxis with enoxaparin. Inpatient E&M: 21819 Subs Hosp L2
--- NOTE | 2020-11-27 09:46 | PCM.PROGNOTE ---
Subjective: Patient seen and examined resting comfortably. Patient denies any new pedal complaints. Patient denies any nausea, fever, chills, chest pain, shortness of breath, cough, streaking, purulence, vomiting. Patient reports overall improvement in foot - Physical Exam Vitals/I&O's: Vital Signs Temp Pulse Resp BP Pulse Ox 98.6 F 73 16 127/74 H 94 11/27/20 06:43 11/27/20 07:33 11/27/20 07:33 11/27/20 06:43 11/27/20 07:33 Oxygen Delivery Method Room Air Weight: 101.151 kg Body Mass Index (BMI) 32.0 Intake and Output for Last 24 Hours 11/25/20 11/26/20 11/27/20 23:59 23:59 23:59 Intake Total 750 / 750 3819.75 / 3819.75 732 / 732 Output Total 525 / 525 200 / 200 Balance 750 / 600 3294.75 / 3294.75 532 / 532 General: Alert, Oriented x3 HEENT: Atraumatic Abdomen: Obese Extremities: No cyanosis, Capillary Refill Less than 3 Seconds, No Calf Tenderness, Edema - foot Skin: Ulcer/ Wound - Right foot with small ulceration to the medial aspect. Less erythema, less edema, no purulence, no visible abscess, no malodor, no streaking, no crepitus, no fluctuance present to the right foot, no drainage Musculoskeletal: - - Partial second toe amputation right Neurological: - - Absent in epicritic sensation to lower extremities consistent with patient's neuropathy Psych/Mental Status: Normal Affect, Appropriate Microbiology Past 72 Hours 11/25/20 17:10 Wound - Right Foot Gram Stain - Final 11/25/20 17:10 Wound - Right Foot Wound Culture - Preliminary No growth-Final to follow Laboratory Results 11/27/20 05:30: Vancomycin Trough 19.2 H 11/27/20 05:30: WBC 5.0, RBC 4.05 L, Hgb 13.0, Hct 38.8 L, MCV 95.8 H, MCH 32.1 H, MCHC 33.5, RDW Std Deviation 42.6, RDW Coeff of José Luis 12.2, Plt Count 234, MPV 8.7, Immature Gran % (Auto) 0.400, Neut % (Auto) 49.4, Lymph % (Auto) 30.2, [place] % (Auto) 13.4 H, Eos % (Auto) 6.0 H, Baso % (Auto) 0.6, Absolute Neuts (auto) 2.5, Absolute Lymphs (auto) 1.51, Nucleated RBC % 1.0 11/27/20 05:30: Sodium 140, Potassium 4.2, Chloride 108 H, Carbon Dioxide 24.0, Anion Gap 8, BUN 10, Creatinine 0.93, Estim Creat Clear Calc 75.22, Est GFR (MDRD) Af Amer 103, Est GFR (MDRD) Non-Af 85, BUN/Creatinine Ratio 10.8, Glucose 87, Calcium 7.9 L Current Medications Acetaminophen (Acetaminophen 325 Mg Tablet) 650 mg PO Q6H PRN PRN PRN Reason: Pain Score 1-10/Temp > 100.7 F Last Admin: 11/27/20 06:42 Dose: 650 mg Documented by: Albuterol Sulfate (Albuterol 2.5 Mg/3 Ml Vial.Neb.) 2.5 mg INHALATION Q2H PRN PRN PRN Reason: Shortness of breath, wheezing Albuterol/Ipratropium (Ipratropium/Albuterol Sulfate 3 Ml Ampul.Neb) 3 ml INHALATION Q6H.RT [facility] Last Admin: 11/27/20 07:33 Dose: 3 ml Documented by: Enoxaparin Sodium (Enoxaparin 40 Mg/0.4 Ml Syringe) 40 mg SC DAILY [facility] Last Admin: 11/26/20 08:59 Dose: 40 mg Documented by: Famotidine (Famotidine 20 Mg Tablet) 20 mg PO DAILY [facility] Last Admin: 11/26/20 08:59 Dose: 20 mg Documented by: Fluticasone Propionate (Fluticasone 0.05% 1 [place] Nasal.Sry) 2 spray NASAL DAILY [facility] Last Admin: 11/26/20 08:58 Dose: 2 spray Documented by: Sodium Chloride () 1,000 mls @ 75 mls/hr IV .[id number] [facility] Last Infusion: 11/27/20 05:07 Dose: 0 mls/hr Documented by: Ampicillin Sodium/Sulbactam (Sodium 3 gm/ Sodium Chloride) 112 mls @ 150 mls/hr IV Q8 [facility] Last Infusion: 11/27/20 05:48 Dose: Infused Documented by: Vancomycin IV Pharmacy to Dose (1 each/ Sodium Chloride) 500 mls @ 250 mls/hr IV PRN PRN; Protocol PRN Reason: Rx to Dose Vancomycin HCl 1,750 mg/ (Sodium Chloride) 535 mls @ 250 mls/hr IV Q12H [facility] Last Infusion: 11/27/20 09:02 Dose: Infused Documented by: L-Arginine/L-Glutamine/Calcium HMB (Vince (Unflavored) Packet) 1 packet PO BIDCM [facility] Last Admin: 11/27/20 09:06 Dose: 1 packet Documented by: Ondansetron HCl (Ondansetron 4 Mg/2 Ml Vial) 4 mg IV Q8H PRN PRN PRN Reason: NAUSEA/VOMITING Last Admin: 11/26/20 17:50 Dose: 4 mg Documented by: Oxycodone HCl (Oxycodone 5 Mg Tablet) 5 mg PO Q4H PRN PRN PRN Reason: Pain Score 4-10 Last Admin: 11/27/20 06:42 Dose: 5 mg Documented by: Senna/Docusate Sodium (Senna/Docusate Sodium 1 Tablet) 2 tablet PO BID PRN PRN PRN Reason: Constipation Sodium Chloride (0.9% Saline Lock 10 Ml Syringe) 10 - 40 ml IV UD PRN PRN Reason: SALINE FLUSH Last Admin: 11/26/20 17:50 Dose: 10 ml Documented by: Throat Lozenges (Benzocaine/Menthol 1 Lozenge) 2 lozenge MUCOUS MEM Q2H PRN PRN PRN Reason: SORE THROAT Last Admin: 11/26/20 18:33 Dose: 2 lozenge Documented by: Zolpidem Tartrate (Zolpidem Tartrate 5 Mg Tablet) 5 mg PO QHS PRN PRN PRN Reason: INSOMNIA Medical Necessity - Tobacco Use Smoking Status: Never smoker Tobacco Use: Non-smoker Assessment/Plan Right foot s/p TMT and midfoot arthrodesis Jul 2020 with nonhealing wound; with infection, concern for infected hardware Right foot infection Rheumatoid arthritis and other comorbidities Patient seen and examined Reviewed diagnostic data. Patient afebrile. A culture of the wound site has been obtained and sent to microbiology for further evaluation - MRSA DNA PCR negative, no organism on gram stain. The patient has been started on IV antibiotics - Unasyn and Vancomycin. Dr. Corea/LIBIA has been consulted. Follow their recommendations. Reviewed right foot xrays and CT scan. Discussed with radiologist Dr. Canales. We will further consider surgical options as well - hardware removal, and bone biopsy. There is concern that if all of hardware is removed there would be instability to the 1st naviculocuneiform fusion site at this time. A bone scan tech99 has been ordered for further evaluation, then will plan to proceed with white cell labeled bone scan for further evaluation. This should be completed on Sunday per radiology. Continue wound care. Wound was painted with betadine soln, applied gauze, kerlix and billy dressing. Change daily. Keep right foot elevated. Partial weightbearing right foot, ok to put weight on heel. Podiatry will continue to follow. Please contact if any questions or concerns.
[2020-11-27] MEDS: Fluticasone 0.05% 1 SPRAY NASAL.SRY 2 SPRAY NASAL (10:32)
[2020-11-27] MEDS: Enoxaparin 40 MG/0.4 ML Syringe SC (10:32)
[2020-11-27] MEDS: Famotidine 20 MG Tablet PO (10:36)
--- NOTE | 2020-11-27 13:44 | NURSING ---
NOTIFIED DR STEVENS THAT PT PERIPHERAL IV SITES ARE NOT HOLDING UP. HAD TO RESTART YESTERDAY AND TODAY. PICC LINE ORDERED.
[2020-11-28] VITALS (9 sets, daily range): BP systolic 123–145; BP diastolic 62–81; PULSE 86–106; RESP 16–18; TEMP 36.8–37; O2SAT 93–100
[2020-11-28 06:46] LABS: Absolute Lymphocyte Count 1.44 X10^3/uL (0.83-4.51); Absolute Neutrophil Count 2.3 X10^3/uL (2.0-7.7); Basophil# 0.04 X10^3/uL; Basophil% 0.8 % (0-1); Eosinophil# 0.42 X10^3/uL; Eosinophils% 8.9 % (0-5); Hematocrit 40.6 % (40-54); Hemoglobin 13.6 g/dL (13.0-16.5); Lymphocyte # 1.44 X10^3/ul (0.83-4.51); Lymphocyte % 30.4 % (19-41); Mean Corp Hgb Conc 33.5 g/dL (32-36); Mean Corpuscular Hgb 32.3 pg (27.0-32.0); Mean Corpuscular Volume 96.4 fL (80-94); Mean Platelet Vol. 8.4 fl (6.2-12.0); Monocyte# 0.56 X10^3/uL; Monocyte% 11.8 % (0-10); NRBC Flagged by Analyzer 0 % (0-5); Neutrophil # 2.27 X10^3/uL (2.7-7.7); Neutrophil % 47.9 % (47-70); Platelet Count 270 K/mm3 (150-450); RBC Distribution Width SD 42.8 fl (35.1-43.9); Red Blood Count 4.21 M/mm3 (4.6-6.2); White Blood Count 4.7 K/mm3 (4.4-11.0)
[2020-11-28] MEDS: Ipratropium/Albuterol Sulfate 3 ML AMPUL.NEB INHALATION ×3 (07:09→19:52)
[2020-11-28 07:15] LABS: Anion Gap 6 (5-15); BUN 12 mg/dL (7-18); BUN/Creat Ratio 12.1 RATIO (10-20); Calcium,Total 8.7 mg/dL (8.5-10.1); Chloride 107 mmol/L (98-107); Creatinine, Serum 0.99 mg/dL (0.70-1.30); EST Glomerular Filtration Rate 79 mL/min (>60); Est Glom Filt Rate - Afr Amer 95 mL/min (>60); Estimated Creatinine Clearance 70.66 ml/min; Glucose 84 mg/dL (74-106); Potassium 3.8 mmol/L (3.5-5.1); Sodium Level 138 mmol/L (136-145)
[2020-11-28] MEDS: Fluticasone 0.05% 1 SPRAY NASAL.SRY 2 SPRAY NASAL (08:52)
[2020-11-28] MEDS: Juven (unflavored) Packet 1 PACKET PO ×2 (08:52→16:33)
[2020-11-28] MEDS: Famotidine 20 MG Tablet PO (08:52)
[2020-11-28] MEDS: Enoxaparin 40 MG/0.4 ML Syringe SC (08:52)
[2020-11-28] MEDS: 0.9% Normal Saline 1,000 ML 75 ML IV (10:10)
--- NOTE | 2020-11-28 10:35 | PN_ITS ---
Subjective: Patient seen and examined resting comfortably. Patient denies any new pedal complaints. Patient denies any nausea, fever, chills, chest pain, shortness of breath, cough, streaking, purulence, vomiting. Patient just got back from going to the bathroom and is slightly out of breath. He states that this is rather normal for him. He relates that he is post follow-up with Dr. Fonseca prior to coming into the hospital and will need to reschedule that. - Physical Exam Vitals/I&O's: Vital Signs Temp Pulse Resp BP Pulse Ox 98.5 F 91 18 127/68 H 100 11/28/20 09:00 11/28/20 09:00 11/28/20 09:00 11/28/20 09:00 11/28/20 09:00 Oxygen Delivery Method Room Air Weight: 101.151 kg Body Mass Index (BMI) 32.0 Intake and Output for Last 24 Hours 11/26/20 11/27/20 11/28/20 23:59 23:59 23:59 Intake Total 3819.75 / 3819.75 2556 / 2856 2147 / 2147 Output Total 525 / 525 800 / 1525 1475 / 1475 Balance 3294.75 / 3294.75 1756 / 1331 672 / 672 General: Alert, Oriented x3 HEENT: Atraumatic Abdomen: Obese Extremities: No cyanosis, Capillary Refill Less than 3 Seconds, No Calf Tenderness, Edema - Improved, Peripheral Pulses Normal Skin: Ulcer/ Wound - Dorsal midfoot right. No malodor, purulence, streaking, fluctuation, crepitus. erythema has resolved, wound probes to hardware. skin is atrophic and hairless. Granular base. No drainage. Improved edema Musculoskeletal: No Tenderness to Palpation of Joints or Extremities Neurological: - - Decrease in epicritic sensation Psych/Mental Status: Normal Affect, Appropriate Microbiology Past 72 Hours 11/25/20 17:10 Wound - Right Foot Gram Stain - Final 11/25/20 17:10 Wound - Right Foot Wound Culture - Final Staphylococcus epidermidis 11/25/20 15:45 Blood Culture (Wb) - Right Hand Blood Culture - Preliminary No growth in 48 hours. 11/25/20 15:30 Blood Culture (Wb) - Anticubital Right Blood Culture - Preliminary No growth in 48 hours. Laboratory Results 11/28/20 06:23: WBC 4.7, RBC 4.21 L, Hgb 13.6, Hct 40.6, MCV 96.4 H, MCH 32.3 H, MCHC 33.5, RDW Std Deviation 42.8, RDW Coeff of José Luis 12.0, Plt Count 270, MPV 8 .4, Immature Gran % (Auto) 0.200, Neut % (Auto) 47.9, Lymph % (Auto) 30.4, [place] % (Auto) 11.8 H, Eos % (Auto) 8.9 H, Baso % (Auto) 0.8, Absolute Neuts (auto) 2.3, Absolute Lymphs (auto) 1.44, Nucleated RBC % 0 11/28/20 06:23: Sodium 138, Potassium 3.8, Chloride 107, Carbon Dioxide 25.0, Anion Gap 6, BUN 12, Creatinine 0.99, Estim Creat Clear Calc 70.66, Est GFR (MDRD) Af Amer 95, Est GFR (MDRD) Non-Af 79, BUN/Creatinine Ratio 12.1, Glucose 84, Calcium 8.7 Current Medications Acetaminophen (Acetaminophen 325 Mg Tablet) 650 mg PO Q6H PRN PRN PRN Reason: Pain Score 1-10/Temp > 100.7 F Last Admin: 11/27/20 19:35 Dose: 650 mg Documented by: Albuterol Sulfate (Albuterol 2.5 Mg/3 Ml Vial.Neb.) 2.5 mg INHALATION Q2H PRN PRN PRN Reason: Shortness of breath, wheezing Albuterol/Ipratropium (Ipratropium/Albuterol Sulfate 3 Ml Ampul.Neb) 3 ml INHALATION Q6H.RT [facility] Last Admin: 11/28/20 07:09 Dose: 3 ml Documented by: Enoxaparin Sodium (Enoxaparin 40 Mg/0.4 Ml Syringe) 40 mg SC DAILY [facility] Last Admin: 11/28/20 08:52 Dose: 40 mg Documented by: Famotidine (Famotidine 20 Mg Tablet) 20 mg PO DAILY [facility] Last Admin: 11/28/20 08:52 Dose: 20 mg Documented by: Fluticasone Propionate (Fluticasone 0.05% 1 [place] Nasal.Sry) 2 spray NASAL DAILY [facility] Last Admin: 11/28/20 08:52 Dose: 2 spray Documented by: Sodium Chloride () 1,000 mls @ 75 mls/hr IV .[id number] [facility] Last Admin: 11/28/20 10:10 Dose: 75 mls/hr Documented by: Ampicillin Sodium/Sulbactam (Sodium 3 gm/ Sodium Chloride) 112 mls @ 150 mls/hr IV Q8 [facility] Last Infusion: 11/28/20 06:07 Dose: Infused Documented by: Vancomycin IV Pharmacy to Dose (1 each/ Sodium Chloride) 500 mls @ 250 mls/hr IV PRN PRN; Protocol PRN Reason: Rx to Dose Vancomycin HCl 1,750 mg/ (Sodium Chloride) 535 mls @ 250 mls/hr IV Q12H [facility] Last Infusion: 11/28/20 10:10 Dose: Infused Documented by: L-Arginine/L-Glutamine/Calcium HMB ([facility] ([facility]flavored) [facility] Last Admin: 11/28/20 08:52 Dose: 1 packet Documented by: Ondansetron HCl (Ondansetron 4 Mg/2 Ml Vial) 4 mg IV Q8H PRN PRN PRN Reason: NAUSEA/VOMITING Last Admin: 11/26/20 17:50 Dose: 4 mg Documented by: Oxycodone HCl (Oxycodone 5 Mg Tablet) 5 mg PO Q4H PRN PRN PRN Reason: Pain Score 4-10 Last Admin: 11/27/20 19:35 Dose: 5 mg Documented by: Senna/Docusate Sodium (Senna/Docusate Sodium 1 Tablet) 2 tablet PO BID PRN PRN PRN Reason: Constipation Sodium Chloride (0.9% Saline Lock 10 Ml Syringe) 10 - 40 ml IV UD PRN PRN Reason: SALINE FLUSH Last Admin: 11/26/20 17:50 Dose: 10 ml Documented by: Throat Lozenges (Benzocaine/Menthol 1 Lozenge) 2 lozenge MUCOUS MEM Q2H PRN PRN PRN Reason: SORE THROAT Last Admin: 11/26/20 18:33 Dose: 2 lozenge Documented by: Zolpidem Tartrate (Zolpidem Tartrate 5 Mg Tablet) 5 mg PO QHS PRN PRN PRN Reason: INSOMNIA Medical Necessity - Tobacco Use Smoking Status: Never smoker Tobacco Use: Non-smoker Assessment/Plan Right foot s/p TMT and midfoot arthrodesis Jul 2020 with nonhealing wound; with infection, concern for infected hardware Right foot infection Rheumatoid arthritis and other comorbidities Patient seen and examined Reviewed diagnostic data. Patient afebrile. A culture of the wound site has been obtained growing Staphylococcus epidermidis on IV antibiotics - Unasyn and Vancomycin. Dr. Corea/ID has been consulted. Follow their recommendations. Reviewed right foot xrays and CT scan. Discussed with radiologist Dr. Canales. We will further consider surgical options as well - hardware removal, and bone biopsy. There is concern that if all of hardware is removed there would be instability to the 1st naviculocuneiform fusion site at this time. A bone scan tech99 has been ordered for further evaluation, then will plan to proceed with white cell labeled bone scan for further evaluation. This should be completed on Sunday per radiology. Continue wound care. Wound was painted with betadine soln, applied gauze, kerlix and billy dressing. Change daily. Keep right foot elevated. Partial weightbearing right foot, ok to put weight on heel. Podiatry will continue to follow. Please contact if any questions or concerns.
[2020-11-28] MEDS: Albuterol 2.5 MG/3 ML VIAL.NEB. INHALATION (11:35)
--- NOTE | 2020-11-28 11:50 | PN_ITS ---
<Ralph Melendez PA - Last Filed: 11/28/20 11:50> Subjective: Patient is a 70-year-old male who is comfortably resting in bed, alert and oriented x3. Patient only endorses mild seasonal sinus congestion, otherwise feels the same from yesterday. Denies fever, N/V/D, chills, chest pain, shortness of breath, palpitations or leg pain/swelling. Objective: Clinical Impression(s) from Imaging Studies Lower Extremity CT 11/25/20 15:19 IMPRESSION: 1. Moderate to significant soft tissue swelling. 2. No visualized abscess or subcutaneous gas. 3. Surgical ankylosis of the bony structures as described above Electronically Signed: Jostin Canales MD at 17:14 EDT , Service support , ADDENDUM: 11/25/20 1741 Foot X-Ray 11/25/20 16:10 IMPRESSION: 1. Significant soft tissue swelling over the dorsum of the foot Electronically Signed: Jostin Canales MD at 16:50 EDT , Service support , Bone Scan Nuclear Medicine 11/26/20 08:55 IMPRESSION: Positive three-phase activity involving the medial mid foot in region of prior surgery. Osteomyelitis is considered possible although findings can also be seen in the prolonged postoperative period. Recommend additional evaluation with nuclear medicine WBC labeled study. Electronically Signed: Ronak Young MD ([place]) at 13:40 EDT , Service support , Vitals/I&O's: Vital Signs Temp Pulse Resp BP Pulse Ox 98.5 F 91 18 127/68 H 100 11/28/20 09:00 11/28/20 09:00 11/28/20 09:00 11/28/20 09:00 11/28/20 09:00 Oxygen Delivery Method Room Air Weight: 223 lb Body Mass Index (BMI) 32.0 Intake and Output for Last 24 Hours 11/26/20 11/27/20 11/28/20 23:59 23:59 23:59 Intake Total 3819.75 / 3819.75 2556 / 2856 2147 / 2147 Output Total 525 / 525 800 / 1525 1475 / 1475 Balance 3294.75 / 3294.75 1756 / 1331 672 / 672 General: Alert, Oriented x3, Cooperative HEENT: Atraumatic, PERRLA, EOMI, Normocephalic Neck: Supple, No JVD, Negative Carotid Bruits Lungs: Clear to auscultation, Normal air movement Cardiovascular: Regular rate, No murmurs Abdomen: Bowel Sounds Present, Soft, Non Tender Extremities: Edema - Edema about the right foot only Skin: No rashes, No breakdown Musculoskeletal: No Tenderness to Palpation of Joints or Extremities Neurological: Cranial nerves II-XII grossly intact Psych/Mental Status: Normal Affect, Appropriate Microbiology Past 72 Hours 11/25/20 17:10 Wound - Right Foot Gram Stain - Final 11/25/20 17:10 Wound - Right Foot Wound Culture - Final Staphylococcus epidermidis 11/25/20 15:45 Blood Culture (Wb) - Right Hand Blood Culture - Preliminary No growth in 48 hours. 11/25/20 15:30 Blood Culture (Wb) - Anticubital Right Blood Culture - Preliminary No growth in 48 hours. Laboratory Results 11/28/20 06:23: WBC 4.7, RBC 4.21 L, Hgb 13.6, Hct 40.6, MCV 96.4 H, MCH 32.3 H, MCHC 33.5, RDW Std Deviation 42.8, RDW Coeff of José Luis 12.0, Plt Count 270, MPV 8.4, Immature Gran % (Auto) 0.200, Neut % (Auto) 47.9, Lymph % (Auto) 30.4, [place] % (Auto) 11.8 H, Eos % (Auto) 8.9 H, Baso % (Auto) 0.8, Absolute Neuts (auto) 2.3, Absolute Lymphs (auto) 1.44, Nucleated RBC % 0 11/28/20 06:23: Sodium 138, Potassium 3.8, Chloride 107, Carbon Dioxide 25.0, Anion Gap 6, BUN 12, Creatinine 0.99, Estim Creat Clear Calc 70.66, Est GFR (MDR D) Af Amer 95, Est GFR (MDRD) Non-Af 79, BUN/Creatinine Ratio 12.1, Glucose 84, Calcium 8.7 Current Medications Acetaminophen (Acetaminophen 325 Mg Tablet) 650 mg PO Q6H PRN PRN PRN Reason: Pain Score 1-10/Temp > 100.7 F Last Admin: 11/27/20 19:35 Dose: 650 mg Documented by: Albuterol Sulfate (Albuterol 2.5 Mg/3 Ml Vial.Neb.) 2.5 mg INHALATION Q2H PRN PRN PRN Reason: Shortness of breath, wheezing Last Admin: 11/28/20 11:35 Dose: 2.5 mg Documented by: Albuterol/Ipratropium (Ipratropium/Albuterol Sulfate 3 Ml Ampul.Neb) 3 ml INHALATION Q6H.RT [facility] Last Admin: 11/28/20 07:09 Dose: 3 ml Documented by: Enoxaparin Sodium (Enoxaparin 40 Mg/0.4 Ml Syringe) 40 mg SC DAILY [facility] Last Admin: 11/28/20 08:52 Dose: 40 mg Documented by: Famotidine (Famotidine 20 Mg Tablet) 20 mg PO DAILY [facility] Last Admin: 11/28/20 08:52 Dose: 20 mg Documented by: Fluticasone Propionate (Fluticasone 0.05% 1 [place] Nasal.Sry) 2 spray NASAL DAILY [facility] Last Admin: 11/28/20 08:52 Dose: 2 spray Documented by: Sodium Chloride () 1,000 mls @ 75 mls/hr IV .[id number] [facility] Last Admin: 11/28/20 10:10 Dose: 75 mls/hr Documented by: Ampicillin Sodium/Sulbactam (Sodium 3 gm/ Sodium Chloride) 112 mls @ 150 mls/hr IV Q8 [facility] Last Infusion: 11/28/20 06:07 Dose: Infused Documented by: Vancomycin IV Pharmacy to Dose (1 each/ Sodium Chloride) 500 mls @ 250 mls/hr IV PRN PRN; Protocol PRN Reason: Rx to Dose Vancomycin HCl 1,750 mg/ (Sodium Chloride) 535 mls @ 250 mls/hr IV Q12H [facility] Last Infusion: 11/28/20 10:10 Dose: Infused Documented by: L-Arginine/L-Glutamine/Calcium HMB (Vince (Unflavored) Packet) 1 packet PO BIDCM [facility] Last Admin: 11/28/20 08:52 Dose: 1 packet Documented by: Ondansetron HCl (Ondansetron 4 Mg/2 Ml Vial) 4 mg IV Q8H PRN PRN PRN Reason: NAUSEA/VOMITING Last Admin: 11/26/20 17:50 Dose: 4 mg Documented by: Oxycodone HCl (Oxycodone 5 Mg Tablet) 5 mg PO Q4H PRN PRN PRN Reason: Pain Score 4-10 Last Admin: 11/27/20 19:35 Dose: 5 mg Documented by: Senna/Docusate Sodium (Senna/Docusate Sodium 1 Tablet) 2 tablet PO BID PRN PRN PRN Reason: Constipation Sodium Chloride (0.9% Saline Lock 10 Ml Syringe) 10 - 40 ml IV UD PRN PRN Reason: SALINE FLUSH Last Admin: 11/26/20 17:50 Dose: 10 ml Documented by: Throat Lozenges (Benzocaine/Menthol 1 Lozenge) 2 lozenge MUCOUS MEM Q2H PRN PRN PRN Reason: SORE THROAT Last Admin: 11/26/20 18:33 Dose: 2 lozenge Documented by: Zolpidem Tartrate (Zolpidem Tartrate 5 Mg Tablet) 5 mg PO QHS PRN PRN PRN Reason: INSOMNIA STROKE Vital Signs/Narrative: Vital Signs Temp Pulse Resp BP Pulse Ox 11/28/20 09:00 98.5 F 91 18 127/68 H 100 Medical Necessity - Tobacco Use Smoking Status: Never smoker Tobacco Use: Non-smoker Assessment/Plan Upon my physical exam patient was feeling well, and only complaining of mild seasonal sinus congestion, for which he is taking fluticasone from home. Otherwise, no change from yesterday. CBC and BMP unremarkable. Vital signs stable. 1) Right foot osteomyelitis with infected hardware: Podiatry and ID following. WBC labeled study ordered for 11/29/2020 per podiatry. Tentative plan for partial hardware removal on the . Blood cultures demonstrate no growth in 48 hours. Wound culture of the right foot grew Staph epidermidis. Plan; keep right foot elevated, partial weight bearing of the right foot, wound dressing changes daily, continue Unasyn and Vancomycin per ID. 2) Rheumatoid arthritis: Continue to hold Leflunomide, follow up with rheumatology as outpatient. DVT prophylaxis -Lovenox MD Patient seen by Ralph Melendez PA-C, under the supervision of Dr. Miller. <Ayan Miller - Last Filed: 11/28/20 12:23> Subjective: As well. Has some occasional sharp pain in his right foot. No further diarrhea and stools been normal patient little concerned he may become constipated. Vitals/I&O's: Vital Signs Temp Pulse Resp BP Pulse Ox 36.9 C 91 18 127/68 H 100 11/28/20 09:00 11/28/20 09:00 11/28/20 09:00 11/28/20 09:00 11/28/20 09:00 Oxygen Delivery Method Room Air Weight: 101.151 kg Body Mass Index (BMI) 32.0 Intake and Output for Last 24 Hours 11/26/20 11/27/20 11/28/20 23:59 23:59 23:59 Intake Total 3819.75 / 3819.75 2556 / 2856 2147 / 2147 Output Total 525 / 525 800 / 1525 1475 / 1475 Balance 3294.75 / 3294.75 1756 / 1331 672 / 672 General: Alert, Cooperative HEENT: Atraumatic, Normocephalic Lungs: Clear to auscultation, Normal air movement, No rhonchi, No wheeze Cardiovascular: Regular rate, Regular Rhythm, Normal S1, Normal S2, No murmurs Abdomen: Bowel Sounds Present, Soft, Non Tender Extremities: Capillary Refill Less than 3 Seconds Skin: No rashes, No breakdown Psych/Mental Status: Normal Affect, Appropriate Microbiology Past 72 Hours 11/25/20 17:10 Wound - Right Foot Gram Stain - Final 11/25/20 17:10 Wound - Right Foot Wound Culture - Final Staphylococcus epidermidis 11/25/20 15:45 Blood Culture (Wb) - Right Hand Blood Culture - Preliminary No growth in 48 hours. 11/25/20 15:30 Blood Culture (Wb) - Anticubital Right Blood Culture - Preliminary No growth in 48 hours. Laboratory Results 11/28/20 06:23: WBC 4.7, RBC 4.21 L, Hgb 13.6, Hct 40.6, MCV 96.4 H, MCH 32.3 H, MCHC 33.5, RDW Std Deviation 42.8, RDW Coeff of José Luis 12.0, Plt Count 270, MPV 8.4, Immature Gran % (Auto) 0.200, Neut % (Auto) 47.9, Lymph % (Auto) 30.4, [place] % (Auto) 11.8 H, Eos % (Auto) 8.9 H, Baso % (Auto) 0.8, Absolute Neuts (auto) 2.3, Absolute Lymphs (auto) 1.44, Nucleated RBC % 0 11/28/20 06:23: Sodium 138, Potassium 3.8, Chloride 107, Carbon Dioxide 25.0, Anion Gap 6, BUN 12, Creatinine 0.99, Estim Creat Clear Calc 70.66, Est GFR (MDRD) Af Amer 95, Est GFR (MDRD) Non-Af 79, BUN/Creatinine Ratio 12.1, Glucose 84, Calcium 8.7 Current Medications Acetaminophen (Acetaminophen 325 Mg Tablet) 650 mg PO Q6H PRN PRN PRN Reason: Pain Score 1-10/Temp > 100.7 F Last Admin: 11/27/20 19:35 Dose: 650 mg Documented by: Albuterol Sulfate (Albuterol 2.5 Mg/3 Ml Vial.Neb.) 2.5 mg INHALATION Q2H PRN PRN PRN Reason: Shortness of breath, wheezing Last Admin: 11/28/20 11:35 Dose: 2.5 mg Documented by: Albuterol/Ipratropium (Ipratropium/Albuterol Sulfate 3 Ml Ampul.Neb) 3 ml INHALATION Q6H.RT [facility] Last Admin: 11/28/20 07:09 Dose: 3 ml Documented by: Enoxaparin Sodium (Enoxaparin 40 Mg/0.4 Ml Syringe) 40 mg SC DAILY [facility] Last Admin: 11/28/20 08:52 Dose: 40 mg Documented by: Famotidine (Famotidine 20 Mg Tablet) 20 mg PO DAILY [facility] Last Admin: 11/28/20 08:52 Dose: 20 mg Documented by: Fluticasone Propionate (Fluticasone 0.05% 1 [place] Nasal.Sry) 2 spray NASAL DAILY [facility] Last Admin: 11/28/20 08:52 Dose: 2 spray Documented by: Sodium Chloride () 1,000 mls @ 75 mls/hr IV .[id number] [facility] Last Admin: 11/28/20 10:10 Dose: 75 mls/hr Documented by: Ampicillin Sodium/Sulbactam (Sodium 3 gm/ Sodium Chloride) 112 mls @ 150 mls/hr IV Q8 [facility] Last Infusion: 11/28/20 06:07 Dose: Infused Documented by: Vancomycin IV Pharmacy to Dose (1 each/ Sodium Chloride) 500 mls @ 250 mls/hr IV PRN PRN; Protocol PRN Reason: Rx to Dose Vancomycin HCl 1,750 mg/ (Sodium Chloride) 535 mls @ 250 mls/hr IV Q12H [facility] Last Infusion: 11/28/20 10:10 Dose: Infused Documented by: L-Arginine/L-Glutamine/Calcium HMB ([place] ([facility]flav[facility]) [facility] Last Admin: 11/28/20 08:52 Dose: 1 packet Documented by: Ondansetron HCl (Ondansetron 4 Mg/2 Ml Vial) 4 mg IV Q8H PRN PRN PRN Reason: NAUSEA/VOMITING Last Admin: 11/26/20 17:50 Dose: 4 mg Documented by: Oxycodone HCl (Oxycodone 5 Mg Tablet) 5 mg PO Q4H PRN PRN PRN Reason: Pain Score 4-10 Last Admin: 11/27/20 19:35 Dose: 5 mg Documented by: Senna/Docusate Sodium (Senna/Docusate Sodium 1 Tablet) 2 tablet PO BID PRN PRN PRN Reason: Constipation Sodium Chloride (0.9% Saline Lock 10 Ml Syringe) 10 - 40 ml IV UD PRN PRN Reason: SALINE FLUSH Last Admin: 11/26/20 17:50 Dose: 10 ml Documented by: Throat Lozenges (Benzocaine/Menthol 1 Lozenge) 2 lozenge MUCOUS MEM Q2H PRN PRN PRN Reason: SORE THROAT Last Admin: 11/26/20 18:33 Dose: 2 lozenge Documented by: Zolpidem Tartrate (Zolpidem Tartrate 5 Mg Tablet) 5 mg PO QHS PRN PRN PRN Reason: INSOMNIA STROKE Vital Signs/Narrative: Vital Signs Temp Pulse Resp BP Pulse Ox 11/28/20 09:00 36.9 C 91 18 127/68 H 100 Assessment/Plan Patient seen and examined independently. Data reviewed. I agree with the above note by the physician housekeeping assistant. 1. Right foot osteomyelitis With infected hardware Discussed with Dr. Painter and recommended a bone scan. Given the recency of surgery, reluctance to remove out all the hardware as it may compromise his surgery. Bone scan positive for medial midfoot in the region of the prior surgery. O steomyelitis considered possible. Recommendation for white blood cell labeled study. Defer additional imaging to infectious disease and podiatry. Tentative plan for partial hardware removal on the . On vancomycin and ampicillin/sulbactam. Wound culture growing staph epidermidis that was resistant to erythromycin, tetra mycin and oxacillin. Patient asking if there be any issue in regards to compromising his left knee replacement. Told him that given that this is the contralateral side and with the absence of bacteremia that the likelihood would be low, however, he is at higher risk given his immunocompromise status, having hardware in the knee and having a current infection. He expressed understanding of his higher than average risk of that potential get infected. WBC scan pending 2. Rheumatoid arthritis Given the underlying infection, patient's leflunomide will be held. Follow-up with rheumatology as outpatient 3. VTE prophylaxis with enoxaparin. Inpatient E&M: 79342 Subs Hosp L2
[2020-11-28] MEDS: Ondansetron 4 MG/2 ML Vial IV (18:07)
[2020-11-28] MEDS: oxyCODONE 5 MG Tablet PO (22:02)
[2020-11-28] MEDS: Zolpidem Tartrate 5 MG Tablet PO (22:02)
[2020-11-28] MEDS: Acetaminophen 325 MG Tablet 650 MG PO (22:02)
[2020-11-29] VITALS (15 sets, daily range): BP systolic 111–142; BP diastolic 58–91; PULSE 67–89; RESP 16–19; TEMP 36.4–37.2; O2SAT 92–99; BMI 32.0
--- NOTE | 2020-11-29 | BON_PTH ---
PATIENT: SHIVANI DENSON LOC: 3 U#:[id number] AGE/SX: 70/M ROOM: TX312 RE11/25/[address]: Dr. Franco Newsome MD : 1950 BED: 1 DIS: 12/01/2020 SPEC #: [id number] RECD: 11/29/20 15:46 STATUS: ETHEL REQ #: [id number] ANNA: 11/29/20 00:[address]: Erickson Painter DEPT: SURGICAL PATHOLOGY RECD BY: Rylan Ibarra ENTERED: 11/30/20 07:25 SP TYPE: Bone OTHR DR: DO Dr. Namrata Farfan MD Dr. Jeffrey Wunning, DPM MD Dr. Jean-Paul Bhardwaj MD Tissues: Bone of foot, NOS Procedures: Surgery Specimen Level IV Comments: @ Ordering doctor for DEC edited from to @ bryant ADDISON at 11/30/20 0846 @ Ordering doctor for III edited from to @ by AZAEL at 11/30/20 0846 @ Submitting doctor edited from to DR.JWUNNI Yung ADDISON at 11/30/20 0846 HEADER OPERATION: Removal hardware, bone biopsy, wound debridement PRE-OP DIAGNOSIS: Nonhealing would with infection, concern for infected hardware TISSUE SUBMITTED: Medial right foot tissue MICROSCOPIC DIAGNOSIS Medial right foot tissue: A piece of fibroconnective tissue with dense fibrosis, fibrinous exudation and granulation tissue reaction. See comment. SJ:angela 12/01/2020 COMMENT Scant minute fragments of bone are noted in the fibrous tissue in the specimen, no separate piece of bone is noted. Neutrophils are noted only in the fibrinous material and granulation tissue area. Clinical correlation and appropriate follow up are necessary. Case has been reviewed in consultation with Dr. Llanos who concurs with the above diagnosis. IDC:AM MICROSCOPIC DESCRIPTION Slides are reviewed. GROSS DESCRIPTION Received in fixative is one container labeled with the patient's name and designated medial right foot tissue. The specimen consists of a piece of [place], indurated tissue measuring 1 x 0.3 x 0.2 cm. The entire specimen is submitted in one cassette. / ZACHERY:angela 11/30/20 TC:5 CPT: 20747
[2020-11-29] MEDS: Ipratropium/Albuterol Sulfate 3 ML AMPUL.NEB INHALATION ×3 (00:31→19:08)
[2020-11-29] MEDS: 0.9% Normal Saline 1,000 ML 75 ML IV (03:06)
--- NOTE | 2020-11-29 06:00 | NM_ITS ---
Tagged white blood cell scan of the feet and ankles INDICATION: Right foot infection, pain, swelling COMPARISON: X-ray and CT 11/25/2020, bone scan 11/26/2020 TECHNIQUE: After the administration of tagged white blood cells intravenously, multiple scintigraphic images of the feet ankles were obtained. FINDINGS: There is faintly increased uptake within the right midfoot corresponding to the site of a arthrodesis with hardware consistent with postoperative changes. More increased uptake would be expected with the osteomyelitis. IMPRESSION: Postoperative changes but no scintigraphic evidence of osteomyelitis. Electronically Signed: Russell Bowles MD at 13:03 EDT Tel , Service support , NM/Inflammatory Process Limited
[2020-11-29 07:03] LABS: Absolute Lymphocyte Count 1.43 X10^3/uL (0.83-4.51); Absolute Neutrophil Count 2.1 X10^3/uL (2.0-7.7); Basophil# 0.05 X10^3/uL; Basophil% 1.1 % (0-1); Eosinophil# 0.44 X10^3/uL; Eosinophils% 9.7 % (0-5); Hematocrit 39.9 % (40-54); Hemoglobin 13.1 g/dL (13.0-16.5); Lymphocyte # 1.43 X10^3/ul (0.83-4.51); Lymphocyte % 31.6 % (19-41); Mean Corp Hgb Conc 32.8 g/dL (32-36); Mean Corpuscular Hgb 31.4 pg (27.0-32.0); Mean Corpuscular Volume 95.7 fL (80-94); Mean Platelet Vol. 8.4 fl (6.2-12.0); Monocyte# 0.54 X10^3/uL; Monocyte% 11.9 % (0-10); NRBC Flagged by Analyzer 0 % (0-5); Neutrophil # 2.05 X10^3/uL (2.7-7.7); Neutrophil % 45.5 % (47-70); Platelet Count 255 K/mm3 (150-450); RBC Distribution Width CV 12.1 % (11.6-14.6); RBC Distribution Width SD 42.5 fl (35.1-43.9); Red Blood Count 4.17 M/mm3 (4.6-6.2); White Blood Count 4.5 K/mm3 (4.4-11.0)
--- NOTE | 2020-11-29 07:03 | PN_ITS ---
Subjective: Patient was seen this morning for follow up on right foot. He relates he is doing well this morning. No complaints of fever, chills, nausea, vomiting, calf pain, shortness of breath or chest pain. - Physical Exam Vitals/I&O's: Vital Signs Temp Pulse Resp BP Pulse Ox 98.2 F 83 19 H 116/58 L 94 11/29/20 04:06 11/29/20 07:00 11/29/20 07:00 11/29/20 04:06 11/29/20 07:00 Oxygen Delivery Method Room Air Weight: 101.151 kg Body Mass Index (BMI) 32.0 Intake and Output for Last 24 Hours 11/27/20 11/28/20 11/29/20 23:59 23:59 23:59 Intake Total 2556 / 2856 4583.5 / 4583.5 1134.5 / 1134.5 Output Total 800 / 1525 2605 / 2605 Balance 1756 / 1331 1978.5 / 1977.5 1134.5 / 1134.5 General: Alert, Oriented x3, Cooperative, No apparent distress Extremities: Capillary Refill Less than 3 Seconds, No Calf Tenderness, - - There is a very small wound to the medial right foot which tracks to plate/screw, resolved erythema, no purulence, no maloder, no streaking, no visible necrosis, no visible abscess. Psych/Mental Status: Normal Affect, Alert and oriented to time, place, person, mood and affect Microbiology Past 72 Hours 11/25/20 17:10 Wound - Right Foot Gram Stain - Final 11/25/20 17:10 Wound - Right Foot Wound Culture - Final Staphylococcus epidermidis 11/25/20 15:45 Blood Culture (Wb) - Right Hand Blood Culture - Preliminary No growth in 48 hours. 11/25/20 15:30 Blood Culture (Wb) - Anticubital Right Blood Culture - Preliminary No growth in 48 hours. Laboratory Results 11/28/20 06:23: WBC 4.7, RBC 4.21 L, Hgb 13.6, Hct 40.6, MCV 96.4 H, MCH 32.3 H, MCHC 33.5, RDW Std Deviation 42.8, RDW Coeff of José Luis 12.0, Plt Count 270, MPV 8.4, Immature Gran % (Auto) 0.200, Neut % (Auto) 47.9, Lymph % (Auto) 30.4, [place] % (Auto) 11.8 H, Eos % (Auto) 8.9 H, Baso % (Auto) 0.8, Absolute Neuts (auto) 2.3, Absolute Lymphs (auto) 1.44, Nucleated RBC % 0 11/28/20 06:23: Sodium 138, Potassium 3.8, Chloride 107, Carbon Dioxide 25.0, Anion Gap 6, BUN 12, Creatinine 0.99, Estim Creat Clear Calc 70.66, Est GFR (MDRD) Af Amer 95, Est GFR (MDRD) Non-Af 79, BUN/Creatinine Ratio 12.1, Glucose 84, Calcium 8.7 Current Medications Acetaminophen (Acetaminophen 325 Mg Tablet) 650 mg PO Q6H PRN PRN PRN Reason: Pain Score 1-10/Temp > 100.7 F Last Admin: 11/28/20 22:02 Dose: 650 mg Documented by: Albuterol Sulfate (Albuterol 2.5 Mg/3 Ml Vial.Neb.) 2.5 mg INHALATION Q2H PRN PRN PRN Reason: Shortness of breath, wheezing Last Admin: 11/28/20 11:35 Dose: 2.5 mg Documented by: Albuterol/Ipratropium (Ipratropium/Albuterol Sulfate 3 Ml Ampul.Neb) 3 ml INHALATION Q6H.RT [facility] Last Admin: 11/29/20 06:32 Dose: 3 ml Documented by: Enoxaparin Sodium (Enoxaparin 40 Mg/0.4 Ml Syringe) 40 mg SC DAILY [facility] Last Admin: 11/28/20 08:52 Dose: 40 mg Documented by: Famotidine (Famotidine 20 Mg Tablet) 20 mg PO DAILY [facility] Last Admin: 11/28/20 08:52 Dose: 20 mg Documented by: Fluticasone Propionate (Fluticasone 0.05% 1 [place] Nasal.Sry) 2 spray NASAL DAILY [facility] Last Admin: 11/28/20 08:52 Dose: 2 spray Documented by: Sodium Chloride () 1,000 mls @ 75 mls/hr IV .[id number] [facility] Last Infusion: 11/29/20 06:24 Dose: 0 mls/hr Documented by: Ampicillin Sodium/Sulbactam (Sodium 3 gm/ Sodium Chloride) 112 mls @ 150 mls/hr IV Q8 [facility] Last Infusion: 11/29/20 06:13 Dose: Infused Documented by: Vancomycin IV Pharmacy to Dose (1 each/ Sodium Chloride) 500 mls @ 250 mls/hr IV PRN PRN; Protocol PRN Reason: Rx to Dose Vancomycin HCl 1,750 mg/ (Sodium Chloride) 535 mls @ 250 mls/hr IV Q12H [facility] Last Admin: 11/29/20 06:23 Dose: 250 mls/hr Documented by: L-Arginine/L-Glutamine/Calcium HMB (Vince (Unflavored) Packet) 1 packet PO BIDCM [facility] Last Admin: 11/28/20 16:33 Dose: 1 packet Documented by: Ondansetron HCl (Ondansetron 4 Mg/2 Ml Vial) 4 mg IV Q8H PRN PRN PRN Reason: NAUSEA/VOMITING Last Admin: 11/28/20 18:07 Dose: 4 mg Documented by: Oxycodone HCl (Oxycodone 5 Mg Tablet) 5 mg PO Q4H PRN PRN PRN Reason: Pain Score 4-10 Last Admin: 11/28/20 22:02 Dose: 5 mg Documented by: Senna/Docusate Sodium (Senna/Docusate Sodium 1 Tablet) 2 tablet PO BID PRN PRN PRN Reason: Constipation Sodium Chloride (0.9% Saline Lock 10 Ml Syringe) 10 - 40 ml IV UD PRN PRN Reason: SALINE FLUSH Last Admin: 11/26/20 17:50 Dose: 10 ml Documented by: Throat Lozenges (Benzocaine/Menthol 1 Lozenge) 2 lozenge MUCOUS MEM Q2H PRN PRN PRN Reason: SORE THROAT Last Admin: 11/26/20 18:33 Dose: 2 lozenge Documented by: Zolpidem Tartrate (Zolpidem Tartrate 5 Mg Tablet) 5 mg PO QHS PRN PRN PRN Reason: INSOMNIA Last Admin: 11/28/20 22:02 Dose: 5 mg Documented by: Medical Necessity - Tobacco Use Smoking Status: Never smoker Tobacco Use: Non-smoker Assessment/Plan Right foot s/p TMT and midfoot arthrodesis Jul 2020 with nonhealing wound; with infection, concern for infected hardware Rheumatoid arthritis and other comorbidities Reviewed diagnostic data. Clinically foot doing much better but there is a very small wound to the medial foot which probes to hardware. A culture of the wound site has been obtained and sent to microbiology for further evaluation - MRSA DNA PCR negative, no organism on gram stain, grew staph epi. The patient is on IV antibiotics - Unasyn and Vancomycin. Dr. Corea/LIBIA has been consulted. Reviewed right foot xrays and CT scan, also Tech 99 bone scan light up at site of surgery, white cell labeled bone scan in process this morning. We are tentatively planning for surgery this afternoon - debridement, hardware removal, and bone biopsy. Wound was painted with betadine soln, applied gauze, kerlix and billy dressing. Change daily. Keep right foot elevated. Partial weightbearing right foot, ok to put weight on heel. Podiatry will continue to follow.
[2020-11-29 07:26] LABS: Anion Gap 7 (5-15); BUN 10 mg/dL (7-18); Calcium,Total 8.5 mg/dL (8.5-10.1); Chloride 106 mmol/L (98-107); Creatinine, Serum 0.83 mg/dL (0.70-1.30); EST Glomerular Filtration Rate 96 mL/min (>60); Est Glom Filt Rate - Afr Amer 117 mL/min (>60); Estimated Creatinine Clearance 84.29 ml/min; Glucose 84 mg/dL (74-106); Potassium 3.6 mmol/L (3.5-5.1); Sodium Level 138 mmol/L (136-145)
[2020-11-29] MEDS: Acetaminophen 325 MG Tablet 650 MG PO ×2 (08:06→20:21)
[2020-11-29] MEDS: Juven (unflavored) Packet 1 PACKET PO (08:06)
[2020-11-29] MEDS: oxyCODONE 5 MG Tablet PO ×2 (08:07→20:21)
[2020-11-29] MEDS: Famotidine 20 MG Tablet PO (08:07)
[2020-11-29] MEDS: Fluticasone 0.05% 1 SPRAY NASAL.SRY 2 SPRAY NASAL (08:07)
--- NOTE | 2020-11-29 10:19 | EKG12_ITS ---
Test Reason : PREOP Blood Pressure : / mmHG Vent. Rate : 072 BPM Atrial Rate : 072 BPM P-R Int : 180 ms QRS Dur : 088 ms QT Int : 434 ms P-R-T Axes : 044 026 024 degrees QTc Int : 475 ms Normal sinus rhythm Normal ECG Confirmed by SHARRON GUTIERRES, WILLIAMS ([id number]), associate editor DONTAE MEYERS ([id number]) on 12/01/2020 1:20:37 PM Referred By: KAREN Confirmed By:WILLIAMS MCDERMOTT MD
--- NOTE | 2020-11-29 12:15 | PCM.PN.HOSP ---
<Ralph Melendez - Last Filed: 11/29/20 12:15> Subjective: Patient is a 70-year-old male who is comfortably resting in bed, alert and oriented x3. Reports no change in status from yesterday, feeling well. Denies fever, N/V/D, chills, chest pain, shortness of breath, palpitations or leg pain/swelling. Objective: Clinical Impression(s) from Imaging Studies Lower Extremity CT 11/25/20 15:19 IMPRESSION: 1. Moderate to significant soft tissue swelling. 2. No visualized abscess or subcutaneous gas. 3. Surgical ankylosis of the bony structures as described above Electronically Signed: Jostin Canales MD at 17:14 EDT , Service support , ADDENDUM: 11/25/20 1741 Foot X-Ray 11/25/20 16:10 IMPRESSION: 1. Significant soft tissue swelling over the dorsum of the foot Electronically Signed: Jostin Canales MD at 16:50 EDT , Service support , Bone Scan Nuclear Medicine 11/26/20 08:55 IMPRESSION: Positive three-phase activity involving the medial mid foot in region of prior surgery. Osteomyelitis is considered possible although findings can also be seen in the prolonged postoperative period. Recommend additional evaluation with nuclear medicine WBC labeled study. Electronically Signed: Ronak Young MD (Brooks) at 13:40 EDT , Service support , Microbiology 11/25/20 17:10 Wound - Right Foot Gram Stain - Final 11/25/20 17:10 Wound - Right Foot Wound Culture - Final Staphylococcus epidermidis 11/25/20 17:10 Wound - Right Foot Anaerobic Culture - Preliminary No growth in 48 hours. 11/25/20 15:45 Blood Culture (Wb) - Right Hand Blood Culture - Preliminary No growth in 48 hours. 11/25/20 15:30 Blood Culture (Wb) - Anticubital Right Blood Culture - Preliminary No growth in 48 hours. Vitals/I&O's: Vital Signs Temp Pulse Resp BP Pulse Ox 97.9 F 70 18 123/82 H 94 11/29/20 10:34 11/29/20 10:34 11/29/20 10:34 11/29/20 10:34 11/29/20 10:34 Oxygen Delivery Method Room Air Weight: 223 lb Body Mass Index (BMI) 32.0 Intake and Output for Last 24 Hours 11/27/20 11/28/20 11/29/20 23:59 23:59 23:59 Intake Total 2556 / 2856 4583.5 / 4583.5 1884.5 / 188.5 Output Total 800 / 1525 2605 / 2605 Balance 1756 / 1331 1977. / 1883. / 1883. General: Alert, Oriented x3, Cooperative HEENT: Atraumatic, PERRLA, EOMI, Normocephalic Neck: Supple, No JVD, Negative Carotid Bruits Lungs: Clear to auscultation, Normal air movement Cardiovascular: Regular rate, No murmurs Abdomen: Bowel Sounds Present, Soft, Non Tender Extremities: Capillary Refill Less than 3 Seconds, Edema - Edema about the right foot only Skin: No rashes, No breakdown Musculoskeletal: No Tenderness to Palpation of Joints or Extremities Neurological: Cranial nerves II-XII grossly intact Psych/Mental Status: Normal Affect, Appropriate Microbiology Past 72 Hours 11/25/20 17:10 Wound - Right Foot Gram Stain - Final 11/25/20 17:10 Wound - Right Foot Wound Culture - Final Staphylococcus epidermidis 11/25/20 17:10 Wound - Right Foot Anaerobic Culture - Preliminary No growth in 48 hours. 11/25/20 15:45 Blood Culture (Wb) - Right Hand Blood Culture - Preliminary No growth in 48 hours. 11/25/20 15:30 Blood Culture (Wb) - Anticubital Right Blood Culture - Preliminary No growth in 48 hours. Laboratory Results 11/29/20 06:05: WBC 4.5, RBC 4.17 L, Hgb 13.1, Hct 39.9 L, MCV 95.7 H, MCH 31.4, MCHC 32.8, RDW Std Deviation 42.5, RDW Coeff of José Luis 12.1, Plt Count 255, MPV 8.4, Immature Gran % (Auto) 0.200, Neut % (Auto) 45.5 L, Lymph % (Auto) 31.6, [place] % (Auto) 11.9 H, Eos % (Auto) 9.7 H, Baso % (Auto) 1.1 H, Absolute Neuts (auto) 2.1, Absolute Lymphs (auto) 1.43, Nucleated RBC % 0 11/29/20 06:05: Sodium 138, Potassium 3.6, Chloride 106, Carbon Dioxide 25.0, Anion Gap 7, BUN 10, Creatinine 0.83, Estim Creat Clear Calc 84.29, Est GFR (MDRD) Af Amer 117, Est GFR (MDRD) Non-Af 96, BUN/Creatinine Ratio 12.0, Glucose 84, Calcium 8.5 Current Medications Acetaminophen (Acetaminophen 325 Mg Tablet) 650 mg PO Q6H PRN PRN PRN Reason: Pain Score 1-10/Temp > 100.7 F Last Admin: 11/29/20 08:06 Dose: 650 mg Documented by: Albuterol Sulfate (Albuterol 2.5 Mg/3 Ml Vial.Neb.) 2.5 mg INHALATION Q2H PRN PRN PRN Reason: Shortness of breath, wheezing Last Admin: 11/28/20 11:35 Dose: 2.5 mg Documented by: Albuterol/Ipratropium (Ipratropium/Albuterol Sulfate 3 Ml Ampul.Neb) 3 ml INHALATION Q6H.RT [facility] Last Admin: 11/29/20 06:32 Dose: 3 ml Documented by: Enoxaparin Sodium (Enoxaparin 40 Mg/0.4 Ml Syringe) 40 mg SC DAILY [facility] Last Admin: 11/29/20 07:55 Dose: Not Given Documented by: Famotidine (Famotidine 20 Mg Tablet) 20 mg PO DAILY [facility] Last Admin: 11/29/20 08:07 Dose: 20 mg Documented by: Fluticasone Propionate (Fluticasone 0.05% 1 [place] Nasal.Sry) 2 spray NASAL DAILY [facility] Last Admin: 11/29/20 08:07 Dose: 2 spray Documented by: Sodium Chloride () 1,000 mls @ 75 mls/hr IV .[id number] [facility] Last Infusion: 11/29/20 11:53 Dose: 0 mls/hr Documented by: Ampicillin Sodium/Sulbactam (Sodium 3 gm/ Sodium Chloride) 112 mls @ 150 mls/hr IV Q8 [facility] Last Infusion: 11/29/20 06:13 Dose: Infused Documented by: Vancomycin IV Pharmacy to Dose (1 each/ Sodium Chloride) 500 mls @ 250 mls/hr IV PRN PRN; Protocol PRN Reason: Rx to Dose Vancomycin HCl 1,750 mg/ (Sodium Chloride) 535 mls @ 250 mls/hr IV Q12H [facility] Last Infusion: 11/29/20 09:01 Dose: Infused Documented by: L-Arginine/L-Glutamine/Calcium HMB (Vince (Unflavored) Packet) 1 packet PO BIDCM [facility] Last Admin: 11/29/20 08:06 Dose: 1 packet Documented by: Ondansetron HCl (Ondansetron 4 Mg/2 Ml Vial) 4 mg IV Q8H PRN PRN PRN Reason: NAUSEA/VOMITING Last Admin: 11/28/20 18:07 Dose: 4 mg Documented by: Oxycodone HCl (Oxycodone 5 Mg Tablet) 5 mg PO Q4H PRN PRN PRN Reason: Pain Score 4-10 Last Admin: 11/29/20 08:07 Dose: 5 mg Documented by: Senna/Docusate Sodium (Senna/Docusate Sodium 1 Tablet) 2 tablet PO BID PRN PRN PRN Reason: Constipation Sodium Chloride (0.9% Saline Lock 10 Ml Syringe) 10 - 40 ml IV UD PRN PRN Reason: SALINE FLUSH Last Admin: 11/26/20 17:50 Dose: 10 ml Documented by: Throat Lozenges (Benzocaine/Menthol 1 Lozenge) 2 lozenge MUCOUS MEM Q2H PRN PRN PRN Reason: SORE THROAT Last Admin: 11/26/20 18:33 Dose: 2 lozenge Documented by: Zolpidem Tartrate (Zolpidem Tartrate 5 Mg Tablet) 5 mg PO QHS PRN PRN PRN Reason: INSOMNIA Last Admin: 11/28/20 22:02 Dose: 5 mg Documented by: STROKE Vital Signs/Narrative: Vital Signs Temp Pulse Resp BP Pulse Ox 11/29/20 10:34 97.9 F 70 18 123/82 H 94 Medical Necessity - Tobacco Use Smoking Status: Never smoker Tobacco Use: Non-smoker Assessment/Plan Upon my physical exam patient was feeling well, reports no change in status from yesterday. CBC and BMP unremarkable. Vital signs stable. WBC labeled scan to take place this morning, currently awaiting results. Podiatry tentatively planning for surgery later on this afternoon. 1) Right foot osteomyelitis with infected hardware: Podiatry and ID following. WBC labeled study ordered for 11/29/2020 per podiatry. Tentative plan for partial hardware removal on the . Blood cultures demonstrate no growth in 48 hours. Wound culture of the right foot grew Staph epidermidis. Plan; keep right foot elevated, partial weight bearing of the right foot, wound dressing changes daily, continue Unasyn and Vancomycin per ID, surgery tentatively planned this afternoon per podiatry. 2) Rheumatoid arthritis: Continue to hold Leflunomide, follow up with rheumatology as outpatient. DVT prophylaxis -Lovenox GA Patient seen by Ralph Melendez PA-C, under the supervision of Dr. Newsome. <Franco Newsome - Last Filed: 11/29/20 14:57> Objective: Seen and examined. Heart rate and blood pressure are controlled. Physical exam General: Alert, Oriented x3, Cooperative HEENT: Atraumatic, PERRLA, EOMI, Normocephalic Oral: No Gingival or Mucosal Lesions/ Ulcerations Neck: Supple, No JVD, Negative Carotid Bruits Lungs: Air entry diminished in bilateral lung bases. No crepitation/rhonchi Cardiovascular: Regular rate, Regular Rhythm, Normal S1, Normal S2, No murmurs Abdomen: Bowel Sounds Present, Soft, Non Tender, Non-Distended : No renal angle tenderness. No suprapubic tenderness. Extremities: No edema, Capillary Refill Less than 3 Seconds Skin: Ulcer over right midfoot with arc of foot covered with dressing. Right third distal digit, partial amputation healed Musculoskeletal: No Tenderness to Palpation of Joints or Extremities Neurological: Cranial nerves II-XII grossly intact, no position sense of the right great toe. Decreased sensation over right foot, worse in the plantar aspect Psych/Mental Status: Normal Affect, Appropriate. Vitals/I&O's: Vital Signs Temp Pulse Resp BP Pulse Ox 98.4 F 68 16 121/77 H 96 11/29/20 13:19 11/29/20 13:19 11/29/20 13:19 11/29/20 13:19 11/29/20 13:19 Oxygen Delivery Method Room Air Weight: 223 lb Body Mass Index (BMI) 32.0 Intake and Output for Last 24 Hours 11/27/20 11/28/20 11/29/20 23:59 23:59 23:59 Intake Total 2556 / 2856 4583.5 / 4583.5 1884.5 / 1884.5 Output Total 800 / 1525 2605 / 2605 Balance 1756 / 1331 1977.5 / 1977.5 188.5 / 188.5 Microbiology Past 72 Hours 11/25/20 17:10 Wound - Right Foot Gram Stain - Final 11/25/20 17:10 Wound - Right Foot Wound Culture - Final Staphylococcus epidermidis 11/25/20 17:10 Wound - Right Foot Anaerobic Culture - Preliminary No growth in 48 hours. 11/25/20 15:45 Blood Culture (Wb) - Right Hand Blood Culture - Preliminary No growth in 48 hours. 11/25/20 15:30 Blood Culture (Wb) - Anticubital Right Blood Culture - Preliminary No growth in 48 hours. Laboratory Results 11/29/20 06:05: WBC 4.5, RBC 4.17 L, Hgb 13.1, Hct 39.9 L, MCV 95.7 H, MCH 31.4, MCHC 32.8, RDW Std Deviation 42.5, RDW Coeff of José Luis 12.1, Plt Count 255, MPV 8.4, Immature Gran % (Auto) 0.200, Neut % (Auto) 45.5 L, Lymph % (Auto) 31.6, [place] % (Auto) 11.9 H, Eos % (Auto) 9.7 H, Baso % (Auto) 1.1 H, Absolute Neuts (auto) 2.1, Absolute Lymphs (auto) 1.43, Nucleated RBC % 0 11/29/20 06:05: Sodium 138, Potassium 3.6, Chloride 106, Carbon Dioxide 25.0, Anion Gap 7, BUN 10, Creatinine 0.83, Estim Creat Clear Calc 84.29, Est GFR (MDRD) Af Amer 117, Est GFR (MDRD) Non-Af 96, BUN/Creatinine Ratio 12.0, Glucose 84, Calcium 8.5 Current Medications Acetaminophen (Acetaminophen 325 Mg Tablet) 650 mg PO Q6H PRN PRN PRN Reason: Pain Score 1-10/Temp > 100.7 F Last Admin: 11/29/20 08:06 Dose: 650 mg Documented by: Albuterol Sulfate (Albuterol 2.5 Mg/3 Ml Vial.Neb.) 2.5 mg INHALATION Q2H PRN PRN PRN Reason: Shortness of breath, wheezing Last Admin: 11/28/20 11:35 Dose: 2.5 mg Documented by: Albuterol/Ipratropium (Ipratropium/Albuterol Sulfate 3 Ml Ampul.Neb) 3 ml INHALATION Q6H.RT [facility] Last Admin: 11/29/20 06:32 Dose: 3 ml Documented by: Enoxaparin Sodium (Enoxaparin 40 Mg/0.4 Ml Syringe) 40 mg SC DAILY [facility] Last Admin: 11/29/20 07:55 Dose: Not Given Documented by: Famotidine (Famotidine 20 Mg Tablet) 20 mg PO DAILY [facility] Last Admin: 11/29/20 08:07 Dose: 20 mg Documented by: Fluticasone Propionate (Fluticasone 0.05% 1 [place] Nasal.Sry) 2 spray NASAL DAILY [facility] Last Admin: 11/29/20 08:07 Dose: 2 spray Documented by: Sodium Chloride () 1,000 mls @ 75 mls/hr IV .[id number] [facility] Last Infusion: 11/29/20 11:53 Dose: 0 mls/hr Documented by: Ampicillin Sodium/Sulbactam (Sodium 3 gm/ Sodium Chloride) 112 mls @ 150 mls/hr IV Q8 [facility] Last Infusion: 11/29/20 06:13 Dose: Infused Documented by: Vancomycin IV Pharmacy to Dose (1 each/ Sodium Chloride) 500 mls @ 250 mls/hr IV PRN PRN; Protocol PRN Reason: Rx to Dose Vancomycin HCl 1,750 mg/ (Sodium Chloride) 535 mls @ 250 mls/hr IV Q12H [facility] Last Infusion: 11/29/20 09:01 Dose: Infused Documented by: L-Arginine/L-Glutamine/Calcium HMB (Vince (Unflavored) Packet) 1 packet PO BIDCM [facility] Last Admin: 11/29/20 08:06 Dose: 1 packet Documented by: Ondansetron HCl (Ondansetron 4 Mg/2 Ml Vial) 4 mg IV Q8H PRN PRN PRN Reason: NAUSEA/VOMITING Last Admin: 11/28/20 18:07 Dose: 4 mg Documented by: Oxycodone HCl (Oxycodone 5 Mg Tablet) 5 mg PO Q4H PRN PRN PRN Reason: Pain Score 4-10 Last Admin: 11/29/20 08:07 Dose: 5 mg Documented by: Senna/Docusate Sodium (Senna/Docusate Sodium 1 Tablet) 2 tablet PO BID PRN PRN PRN Reason: Constipation Sodium Chloride (0.9% Saline Lock 10 Ml Syringe) 10 - 40 ml IV UD PRN PRN Reason: SALINE FLUSH Last Admin: 11/26/20 17:50 Dose: 10 ml Documented by: Throat Lozenges (Benzocaine/Menthol 1 Lozenge) 2 lozenge MUCOUS MEM Q2H PRN PRN PRN Reason: SORE THROAT Last Admin: 11/26/20 18:33 Dose: 2 lozenge Documented by: Zolpidem Tartrate (Zolpidem Tartrate 5 Mg Tablet) 5 mg PO QHS PRN PRN PRN Reason: INSOMNIA Last Admin: 11/28/20 22:02 Dose: 5 mg Documented by: STROKE Vital Signs/Narrative: Vital Signs Temp Pulse Resp BP Pulse Ox 11/29/20 13:19 98.4 F 68 16 121/77 H 96 Assessment/Plan This patient was seen in conjunction with NITHYA Andrea. I have independently interviewed and examined the patient and reviewed pertinent history, examination findings, laboratory and plan of management. I have reviewed the note and agree with the documented findings with the few additional points. In brief, patient is admitted for swelling and pain over right foot. 1. Right foot osteomyelitis with infected hardware: Patient had bone scan was reported as possible osteomyelitis. Patient had right foot TMT and midfoot arthrodesis in July 2020 with nonhealing wound. IV antibiotics Unasyn and vancomycin. ID on board. Wound culture shows MRSE. Tagged WBC scan of feet and ankles showed postoperative changes but no scintigraphic evidence of osteomyelitis. 2. Rheumatoid arthritis : Patient's leflunomide is on hold because of underlying infection as mentioned above Follow-up with rheumatology as outpatient 3. VTE prophylaxis with enoxaparin I have discussed my assessment with NITHYA Andrea and orders have been reviewed. Microbiology Past 72 Hours 04/15/21 17:10 Wound - Right Foot Gram Stain - Final 11/25/20 17:10 Wound - Right Foot Wound Culture - Final Staphylococcus epidermidis 11/25/20 17:10 Wound - Right Foot Anaerobic Culture - Preliminary No growth in 48 hours. 11/25/20 15:45 Blood Culture (Wb) - Right Hand Blood Culture - Preliminary No growth in 48 hours. 11/25/20 15:30 Blood Culture (Wb) - Anticubital Right Blood Culture - Preliminary No growth in 48 hours. Laboratory Results 11/29/20 06:05: WBC 4.5, RBC 4.17 L, Hgb 13.1, Hct 39.9 L, MCV 95.7 H, MCH 31.4, MCHC 32.8, RDW Std Deviation 42.5, RDW Coeff of José Luis 12.1, Plt Count 255, MPV 8.4, Immature Gran % (Auto) 0.200, Neut % (Auto) 45.5 L, Lymph % (Auto) 31.6, [place] % (Auto) 11.9 H, Eos % (Auto) 9.7 H, Baso % (Auto) 1.1 H, Absolute Neuts (auto) 2.1, Absolute Lymphs (auto) 1.43, Nucleated RBC % 0 11/29/20 06:05: Sodium 138, Potassium 3.6, Chloride 106, Carbon Dioxide 25.0, Anion Gap 7, BUN 10, Creatinine 0.83, Estim Creat Clear Calc 84.29, Est GFR (MDRD) Af Amer 117, Est GFR (MDRD) Non-Af 96, BUN/Creatinine Ratio 12.0, Glucose 84, Calcium 8.5 Clinical Impression(s) from Imaging Studies Lower Extremity CT 11/25/20 15:19 IMPRESSION: 1. Moderate to significant soft tissue swelling. 2. No visualized abscess or subcutaneous gas. 3. Surgical ankylosis of the bony structures as described above Foot X-Ray 11/25/20 16:10 IMPRESSION: 1. Significant soft tissue swelling over the dorsum of the foot Bone Scan Nuclear Medicine 11/26/20 08:55 IMPRESSION: Positive three-phase activity involving the medial mid foot in region of prior surgery. Osteomyelitis is considered possible although findings can also be seen in the prolonged postoperative period. Recommend additional evaluation with nuclear medicine WBC labeled study. Electronically Signed: Ronak Young MD ([place]) at 13:40 EDT , Service support , WBC Scan Nuclear Medicine 11/29/20 06:00 Inpatient E&M: [id number] Subs Hosp L2
--- NOTE | 2020-11-29 13:07 | CASEMGMT ---
Pt screened using [facility] Palliative Care Screening Tool d/t Strata 3, pt did not meet criteria.
--- NOTE | 2020-11-29 13:54 | RAD_ITS ---
STUDY: X-RAY - RIGHT FOOT CLINICAL: Male, 70 years old. HARDWARE REMOVAL, BONE BX, DEBRIDEMENT TECHNIQUE: 2 view(s) of the foot. COMPARISON: 11/25/2020 FINDINGS: 42 seconds of fluoroscopy of the right foot was utilized and operating room during the hardware removal.. RAD/Foot 2 Views IMPRESSION: Fluoroscopy during surgery. Electronically Signed: Russell Bowles MD at 17:43 EDT Tel , Service support ,
--- NOTE | 2020-11-29 14:40 | NURSING ---
1400 antibiotic tubed down to OR.
[2020-11-29] MEDS: Bupivacaine Mpf 0.5% 30 ML VIAL (15:20)
--- NOTE | 2020-11-29 15:25 | CHAPLAIN ---
Type of Pastoral Visit ___ Initial Visit ___ Follow-up Visit ___ On-call Visit ___ General Patient Visit ___ Spiritual Assessment ___ Family Conference ___ Bereavement ___ Rapid Response ___ Code Blue _x__ Other (describe below) Pastoral Care Referral From ___ Patient ___ Family ___ Nurse ___ Physician ___ Oxidation Operator ___ Door Fitter ___ Other (describe below) Sacrament/Intervention ___ Active listening ___ Anointing ___ Religion ___ Bereavement ___ Communion ___ Sara exploration ___ ___ Life review ___ Prayer ___ Reconciliation ___ Sacrament of Sick ___ Supportive presence ___ Wedding ___ Other (describe below) Pastoral Comments patient and bed out of room so calling card left on side tray
--- NOTE | 2020-11-29 15:40 | OP.PCM_ITS ---
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 Deep culture dorsal right foot (3rd ray) - swab - sent to microbiology. 2. Deep culture medial right foot (1st ray) - swab - sent to microbiology. 3. Tissue from nonhealing ulceration medial right foot - tissue - sent to microbiology. 4. Tissue from ulcer nonhealing ulceration medial right foot - tissue - sent to pathology Estimated Blood Loss (mL): 3mL Description of Procedure: Indications: This is a 70 year old with history of right foot charcot s/p 1st - 3rd tarsometatarsal and 1st navicular cuneiform joint arthrodesis July 16, 2020. Patient has had a small nonhealing wound to the medial foot which probes to the plate and screw at the site. Patient has developed signs/symptoms of infection consistent with hardware infection and two cultures of the site have grown staph epi. Patient developed the signs/symptoms of infection despite oral antibiotic Doxycycline. Patient was admitted for IV antibiotics and further workup. Right foot xrays and CT scan were obtained. I discussed the findings with radiologist Dr. Canales and it was felt that there is 80-90% osseous healing of the fusion sites except ~50% of the 1st navicular cuneiform fusion site based on the CT scan findings. Tech 99 bone scan was light up at the site of fusion on the right foot, but the WBC labeled bone scan was negative for osteomyelitis. Discussed the findings with the patient in detail, reviewed the options. We discussed keeping the hardware in vs removing the hardware. We discussed antibiotic therapy. After discussing the options, and considering the possible benefits vs risks, patient elected to have all of the hardware removed and also continue with antibiotic therapy at this time to optimize chance to clear the infection as much as possible. Discussed risks with patient, advised patient these include but are not limited to need for further surgery, break down of the fusion sites, foot deformity, collapse of the arch of the foot, pain, swelling, need for revision fusion surgery, nonhealing, delayed healing, continued infection, worsening infection, new infection, blood clot, loss of limb, loss of life. He expressed understanding and agreement. The consent forms were reviewed with him and he freely signed them. All of his questions were answered. No guarantees were given nor implied. Operative Procedure: The patient was brought back to the operating room and was placed on the operating room table in the supine position. He was carefully secured to the operating room table with a safety belt around his waist. A time out was performed and the patient was properly identified and the surgical plan was confirmed. The patient is already on antibiotics. A well padded pneumatic tourniquet was applied around the right ankle. The patient did receive general anesthesia per the anesthesiologist. The right foot/ankle were scrubbed, prepped, draped in the usual aseptic fashion. A timeout was performed and the patient was properly identified and the surgical plan was confirmed. There was noted again to be a small wound to the medial foot which probed to hardware with small amount of serous fluid. The foot was exsanguinated using an Esmarch bandage and the right ankle pneumatic tourniquet was inflated to 250mmHg. A linear longitudinal skin incision at site of previous incision was made overlying the dorsal foot. Careful dissection was completed down through the subcutaneous tissue layer down the 3rd metatarsal cuneiform fusion plate and screws. The screws were removed and the plate was removed in toto. The bone at this level appeared healthy and viable. There was no purulence or abscess at this level. The bone was hard and white and visually there was fusion of the 3rd tarsometatarsal joint with no instability or movement to this joint noted consistent with fusion. The wound to the medial foot measured 1mm x 2mm and probed full thickness to plate/hardware, the wound was debrided down to the plate (fascia layer) and was excised in sharp fashion. A linear longitudinal skin incision was made overlying the medial foot at level of the previous incision. Careful dissection was completed down through the subcutaneous tissue layer down the screws and plate. It was noted the margins of the nonhealing wound were nonviable and brown yellow in color which extended down to the plate with adherent yellowish brown fibrinous material present on the plate directly at this level consistent with chronic hardware infection. This was debrided out and excised down to healthy viable tissue. The plate and screws were identified and were removed, in toto. The bone itself at this level appeared healthy and viable. There was no purulence or abscess at this level. The bone was hard and white and visually there was fusion of the 1st tarsometatarsal joint and 1st navicular cuneiform joint with no instability or movement to this joint noted consistent with fusion. The sites were flushed out with copious amounts of normal saline solution. There was no necrosis, no abscess, no purulence or any other evidence of infection at this time at any of the surgical sites/ankle. The foot was checked for stability, was noted to be stable with no instability present. This was confirmed using intraoperative fluoroscopy. Images were saved. Of note deep wound cultures were taken at the above sites sent to microbiology. Also the excised ulceration was as specimen to microbiology as well as to [facility] for further evaluation. The incision sites were flushed out with copious amounts of normal saline solution. The tissues all appeared healthy and viable at this time, the bone was hard, white, and healthy in appearance. The remaining soft tissue was viable. The skin was reapproximated using 3-0 Nylon. A total of 18mL of 0.5% Bupivacaine plain was given as a local block around the surgical sites to help with pain control. All vital structure, including all vital neurovascular structures were properly identified and protected as necessary throughout the procedure. The ankle tourniquet was deflated (total tourniquet time was 67 minutes) and there was normal return of flow to the foot. There was normal vascular flow to the foot and ankle. CFT < 2 seconds to all toes, and had normal temperature gradient present.A dressing was applied which consisted of Betadine soaked adaptic, 4x4 gauze, kerlix and billy dressing. The patient tolerated the above operative procedure well at the anesthesia well with no complications. The patient was transported to the recovery room with vital signs stable and in good condition. Post operative orders were placed. Post operative instructions were reviewed with patient. The patient will be continued to be followed as an inpatient. Grafts/Implants Used: None - Complications None
--- NOTE | 2020-11-29 15:50 | RAD_ITS ---
STUDY: X-RAY - RIGHT FOOT CLINICAL: Male, 70 years old. post op TECHNIQUE: 3 view(s) of the foot. COMPARISON: 11/25/2020 FINDINGS: Normal talus, calcaneus, and tarsal bones. Normal visualized subtalar, talonavicular, calcaneocuboid, tarsal and tarsometatarsal articulations. Interval removal of surgical hardware from the midfoot arthrodesis. Normal metatarsi. Normal metatarsophalangeal joint of the great toe. Normal tibial and fibular sesamoid bones. Normal interphalangeal joint of the great toe. Normal phalanges of the great toe. Normal second through fifth metatarsophalangeal joints. Normal interphalangeal joints and phalanges of the lesser toes. The soft tissue structures are unremarkable. RAD/Foot min 3 Views IMPRESSION: Interval removal of hardware from midfoot arthrodesis per Electronically Signed: Russell Bowles MD at 16:22 EDT Tel , Service support ,
[2020-11-30] VITALS (8 sets, daily range): BP systolic 112–131; BP diastolic 72–83; PULSE 85–93; RESP 16–18; TEMP 36.4–36.9; O2SAT 93–96; BMI 32.0
[2020-11-30] MEDS: Ipratropium/Albuterol Sulfate 3 ML AMPUL.NEB INHALATION ×4 (01:26→19:40)
[2020-11-30] MEDS: 0.9% Normal Saline 1,000 ML 75 ML IV ×2 (03:21→20:14)
[2020-11-30 05:33] LABS: Absolute Lymphocyte Count 1.31 X10^3/uL (0.83-4.51); Absolute Neutrophil Count 3.1 X10^3/uL (2.0-7.7); Basophil# 0.04 X10^3/uL; Basophil% 0.7 % (0-1); Eosinophil# 0.48 X10^3/uL; Eosinophils% 8.8 % (0-5); Hematocrit 41.7 % (40-54); Hemoglobin 13.7 g/dL (13.0-16.5); Lymphocyte # 1.31 X10^3/ul (0.83-4.51); Lymphocyte % 23.9 % (19-41); Mean Corp Hgb Conc 32.9 g/dL (32-36); Mean Corpuscular Hgb 31.9 pg (27.0-32.0); Mean Platelet Vol. 8.4 fl (6.2-12.0); Monocyte# 0.53 X10^3/uL; Monocyte% 9.7 % (0-10); NRBC Flagged by Analyzer 0 % (0-5); Neutrophil # 3.11 X10^3/uL (2.7-7.7); Neutrophil % 56.7 % (47-70); Platelet Count 259 K/mm3 (150-450); RBC Distribution Width SD 42.6 fl (35.1-43.9); White Blood Count 5.5 K/mm3 (4.4-11.0)
[2020-11-30 06:49] LABS: Anion Gap 6 (5-15); BUN 8 mg/dL (7-18); BUN/Creat Ratio 7.9 RATIO (10-20); Calcium,Total 8.3 mg/dL (8.5-10.1); Chloride 106 mmol/L (98-107); Creatinine, Serum 1.01 mg/dL (0.70-1.30); EST Glomerular Filtration Rate 77 mL/min (>60); Est Glom Filt Rate - Afr Amer 93 mL/min (>60); Estimated Creatinine Clearance 69.27 ml/min; Glucose 103 mg/dL (74-106); Potassium 3.9 mmol/L (3.5-5.1); Sodium Level 137 mmol/L (136-145)
--- NOTE | 2020-11-30 07:31 | NURSING ---
wound photo: right foot (medial view)
--- NOTE | 2020-11-30 07:32 | NURSING ---
wound photo: right dorsal foot
--- NOTE | 2020-11-30 07:49 | PCM.PROGNOTE ---
Subjective: Patient was seen this morning, he relates he started to have foot pain around 5am this morning. He is resting comfortably in bed. Patient afebrile. - Physical Exam Vitals/I&O's: Vital Signs Temp Pulse Resp BP Pulse Ox 98.4 F 89 18 112/72 96 11/30/20 03:14 11/30/20 03:14 11/30/20 03:14 11/30/20 03:14 11/30/20 03:14 Oxygen Delivery Method Nasal Cannula Weight: 101.151 kg Body Mass Index (BMI) 32.0 Intake and Output for Last 24 Hours 11/28/20 11/29/20 11/30/20 23:59 23:59 23:59 Intake Total 4583.5 / 4583.5 2560.25 / 2560.25 969.00 / 969.00 Output Total 2605 / 2605 2325 / 2325 400 / 400 Balance 1978.5 / 1977.5 235.25 / 235.25 569.00 / 569.00 General: Alert, Oriented x3, No apparent distress Extremities: Capillary Refill Less than 3 Seconds, No Calf Tenderness, Peripheral Pulses Normal, - - Incision sites right foot well coapted, no cellulitis, no dehiscence, sutures are intact, no necrosis, no streaking, no visible abscess, tissues are healthy and viable. Patient able to move toes and foot, right. No tissue breakdown left foot. Microbiology Past 72 Hours 11/25/20 17:10 Wound - Right Foot Gram Stain - Final 11/25/20 17:10 Wound - Right Foot Wound Culture - Final Staphylococcus epidermidis 11/25/20 17:10 Wound - Right Foot Anaerobic Culture - Preliminary No growth in 48 hours. 11/25/20 15:45 Blood Culture (Wb) - Right Hand Blood Culture - Preliminary No growth in 48 hours. 11/25/20 15:30 Blood Culture (Wb) - Anticubital Right Blood Culture - Preliminary No growth in 48 hours. Laboratory Results 11/30/20 05:12: Vancomycin Trough 26.0 H 11/30/20 05:12: WBC 5.5, RBC 4.30 L, Hgb 13.7, Hct 41.7, MCV 97.0 H, MCH 31.9, MCHC 32.9, RDW Std Deviation 42.6, RDW Coeff of José Luis 12.0, Plt Count 259, MPV 8.4, Immature Gran % (Auto) 0.200, Neut % (Auto) 56.7, Lymph % (Auto) 23.9, [place] % (Auto) 9.7, Eos % (Auto) 8.8 H, Baso % (Auto) 0.7, Absolute Neuts (auto) 3.1, Absolute Lymphs (auto) 1.31, Nucleated RBC % 0 11/30/20 05:12: Sodium 137, Potassium 3.9, Chloride 106, Carbon Dioxide 25.0, Anion Gap 6, BUN 8, Creatinine 1.01, Estim Creat Clear Calc 69.27, Est GFR (MDRD) Af Amer 93, Est GFR (MDRD) Non-Af 77, BUN/Creatinine Ratio 7.9 L, Glucose 103, Calcium 8.3 L 11/30/20 05:12: Vitamin D 25-Hydroxy Pending Current Medications Acetaminophen (Acetaminophen 325 Mg Tablet) 650 mg PO Q6H PRN PRN PRN Reason: Pain Score 1-10/Temp > 100.7 F Last Admin: 11/29/20 20:21 Dose: 650 mg Documented by: Albuterol Sulfate (Albuterol 2.5 Mg/3 Ml Vial.Neb.) 2.5 mg INHALATION Q2H PRN PRN PRN Reason: Shortness of breath, wheezing Last Admin: 11/28/20 11:35 Dose: 2.5 mg Documented by: Albuterol/Ipratropium (Ipratropium/Albuterol Sulfate 3 Ml Ampul.Neb) 3 ml INHALATION Q6H.RT [facility] Last Admin: 11/30/20 01:26 Dose: 3 ml Documented by: Enoxaparin Sodium (Enoxaparin 40 Mg/0.4 Ml Syringe) 40 mg SC DAILY [facility] Last Admin: 11/29/20 07:55 Dose: Not Given Documented by: Famotidine (Famotidine 20 Mg Tablet) 20 mg PO DAILY [facility] Last Admin: 11/29/20 08:07 Dose: 20 mg Documented by: Fluticasone Propionate (Fluticasone 0.05% 1 [place] Nasal.Sry) 2 spray NASAL DAILY [facility] Last Admin: 11/29/20 08:07 Dose: 2 spray Documented by: Sodium Chloride () 1,000 mls @ 75 mls/hr IV .[id number] [facility] Last Infusion: 11/30/20 06:30 Dose: 0 mls/hr Documented by: Ampicillin Sodium/Sulbactam (Sodium 3 gm/ Sodium Chloride) 112 mls @ 150 mls/hr IV Q8 [facility] Last Infusion: 11/30/20 05:58 Dose: Infused Documented by: Vancomycin IV Pharmacy to Dose (1 each/ Sodium Chloride) 500 mls @ 250 mls/hr IV PRN PRN; Protocol PRN Reason: Rx to Dose Vancomycin HCl 1,750 mg/ (Sodium Chloride) 535 mls @ 250 mls/hr IV Q12H [facility] Last Admin: 11/30/20 06:18 Dose: 250 mls/hr Documented by: L-Arginine/L-Glutamine/Calcium [facility] ([facility] (Unflavored) Packet) [facility] Last Admin: 11/29/20 16:49 Dose: Not Given Documented by: Ondansetron HCl (Ondansetron 4 Mg/2 Ml Vial) 4 mg IV Q8H PRN PRN PRN Reason: NAUSEA/VOMITING Last Admin: 11/28/20 18:07 Dose: 4 mg Documented by: Oxycodone HCl (Oxycodone 5 Mg Tablet) 5 mg PO Q4H PRN PRN PRN Reason: Pain Score 4-10 Last Admin: 11/29/20 20:21 Dose: 5 mg Documented by: Senna/Docusate Sodium (Senna/Docusate Sodium 1 Tablet) 2 tablet PO BID PRN PRN PRN Reason: Constipation Sodium Chloride (0.9% Saline Lock 10 Ml Syringe) 10 - 40 ml IV UD PRN PRN Reason: SALINE FLUSH Last Admin: 11/26/20 17:50 Dose: 10 ml Documented by: Throat Lozenges (Benzocaine/Menthol 1 Lozenge) 2 lozenge MUCOUS MEM Q2H PRN PRN PRN Reason: SORE THROAT Last Admin: 11/26/20 18:33 Dose: 2 lozenge Documented by: Zolpidem Tartrate (Zolpidem Tartrate 5 Mg Tablet) 5 mg PO QHS PRN PRN PRN Reason: INSOMNIA Last Admin: 11/28/20 22:02 Dose: 5 mg Documented by: Medical Necessity - Tobacco Use Smoking Status: Never smoker Tobacco Use: Non-smoker Assessment/Plan Right foot s/p TMT and midfoot arthrodesis Jul 2020 with nonhealing wound; with infected hardware s/p hardware removal Rheumatoid arthritis and other comorbidities Reviewed diagnostic data. Foot looks good today, no evidence of complication from hardware removal. Wound was painted with betadine soln, applied gauze, kerlix and billy dressing. Change daily. Keep right foot elevated. No weightbearing right foot. Patient is on Vancomycin and Zosyn, ID/Dr. Gomes on consult. New surgical culture results pending. Podiatry will continue to follow.
[2020-11-30] MEDS: Juven (unflavored) Packet 1 PACKET PO (08:16)
--- NOTE | 2020-11-30 08:16 | PHA.PHARE_ITS ---
Consult Pharmacy has been consulted to manage selected antiobiotic: Vancomycin Type of Consult: Follow-up Suspected Infection: Skin/Soft tissue Prior Doses of Antibiotics Received/Current Regimen: currently on 1750mg q12h Labs: Sodium 137 mmol/L (136-145) 11/30/20 05:12 Potassium 3.9 mmol/L (3.5-5.1) 11/30/20 05:12 Chloride 106 mmol/L (98-107) 11/30/20 05:12 Carbon Dioxide 25.0 mmol/L (21.0-32.0) 11/30/20 05:12 Anion Gap 6 (5-15) 11/30/20 05:12 BUN 8 mg/dL (7-18) 11/30/20 05:12 Creatinine 1.01 mg/dL (0.70-1.30) 11/30/20 05:12 Est GFR (MDRD) Af Amer 93 mL/min (>60) 11/30/20 05:12 Est GFR (MDRD) Non-Af 77 mL/min (>60) 11/30/20 05:12 BUN/Creatinine Ratio 7.9 RATIO (10-20) L 11/30/20 05:12 Glucose 103 mg/dL (74-106) 11/30/20 05:12 Vancomycin Trough 26.0 ug/mL (5.0-15.0) H 11/30/20 05:12 Microbiology: Microbiology 11/25/20 17:10 Wound - Right Foot Gram Stain - Final 11/25/20 17:10 Wound - Right Foot Wound Culture - Final Staphylococcus epidermidis 11/25/20 17:10 Wound - Right Foot Anaerobic Culture - Preliminary No growth in 48 hours. 11/25/20 15:45 Blood Culture (Wb) - Right Hand Blood Culture - Preliminary No growth in 48 hours. 11/25/20 15:30 Blood Culture (Wb) - Anticubital Right Blood Culture - Preliminary No growth in 48 hours. Weight used for dosin.2 kg Estimated Creatinine Clearance: 80 ml/min Goal Trough: 15-20 mcg/mL Pharmacy Plan for Drug Dosing: The vancomycin trough drawn before this morning's dose was 26. This is above goal range so will hold further dosing at this time. Called nurse to stop this morning's dose which was started at 0618 and currently still infusing. Will not give any more doses today and will check a vancomycin random level tomorrow morning in about 24 hours. If that level is < 20, dosing can then be continued at a newly calculated dose. The patient's CrCl of 80 ml/min was calculated us ing an adjusted body weight of 84.3kg. Pharmacy Service will continue to monitor and adjust dosing as required. Follow-Up Labs: Trough Vancomycin - random Labs to be done on [date and time ordered]: 12/01/20 0800
[2020-11-30] MEDS: oxyCODONE 5 MG Tablet PO ×2 (08:18→17:28)
[2020-11-30] MEDS: Acetaminophen 325 MG Tablet 650 MG PO ×2 (08:19→17:28)
[2020-11-30] MEDS: Famotidine 20 MG Tablet PO (10:34)
[2020-11-30] MEDS: Fluticasone 0.05% 1 SPRAY NASAL.SRY 2 SPRAY NASAL (10:34)
[2020-11-30] MEDS: Enoxaparin 40 MG/0.4 ML Syringe SC (10:34)
--- NOTE | 2020-11-30 12:43 | PN_ITS ---
<Ralph Melendez PA - Last Filed: 11/30/20 12:43> Subjective: Patient is a 70-year-old male who is comfortably resting in bed, alert and oriented x3. Patient is currently recovering from surgery which he received yesterday. Patient reports minimal pain however reports that this is manageable on current pain regimen. Patient reports no change in symptoms from yesterday, denies chest pain, shortness of breath, palpitations, fever, chills, N/V/D. Objective: Clinical Impression(s) from Imaging Studies Lower Extremity CT 11/25/20 15:19 IMPRESSION: 1. Moderate to significant soft tissue swelling. 2. No visualized abscess or subcutaneous gas. 3. Surgical ankylosis of the bony structures as described above Electronically Signed: Jostin Canales MD at 17:14 EDT , Service support , ADDENDUM: 11/25/20 1741 Foot X-Ray 11/25/20 16:10 IMPRESSION: 1. Significant soft tissue swelling over the dorsum of the foot Electronically Signed: Jostin Canales MD at 16:50 EDT , Service support , Bone Scan Nuclear Medicine 11/26/20 08:55 IMPRESSION: Positive three-phase activity involving the medial mid foot in region of prior surgery. Osteomyelitis is considered possible although findings can also be seen in the prolonged postoperative period. Recommend additional evaluation with nuclear medicine WBC labeled study. Electronically Signed: Ronak Young MD ([place]) at 13:40 EDT , Service support , WBC Scan Nuclear Medicine 11/29/20 06:00 Foot X-Ray 11/29/20 13:54 IMPRESSION: Fluoroscopy during surgery. Electronically Signed: Rsusell Bowles MD at 17:43 EDT Tel , Service support , Foot X-Ray 11/29/20 15:50 IMPRESSION: Interval removal of hardware from midfoot arthrodesis per Electronically Signed: Russell Bowles MD at 16:22 EDT Tel , Service support , Microbiology 11/25/20 17:10 Wound - Right Foot Gram Stain - Final 11/25/20 17:10 Wound - Right Foot Wound Culture - Final Staphylococcus epidermidis 11/25/20 17:10 Wound - Right Foot Anaerobic Culture - Preliminary No growth in 48 hours. 11/25/20 15:45 Blood Culture (Wb) - Right Hand Blood Culture - Preliminary No growth in 48 hours. 11/25/20 15:30 Blood Culture (Wb) - Anticubital Right Blood Culture - Preliminary No growth in 48 hours. Vitals/I&O's: Vital Signs Temp Pulse Resp BP Pulse Ox 98.1 F 88 16 129/80 H 94 11/30/20 08:10 11/30/20 08:10 11/30/20 08:10 11/30/20 08:10 11/30/20 08:10 Oxygen Delivery Method Room Air Weight: 223 lb Body Mass Index (BMI) 32.0 Intake and Output for Last 24 Hours 11/28/20 11/29/20 11/30/20 23:59 23:59 23:59 Intake Total 4583.5 / 4583.5 2560.25 / 2560.25 1431.50 / 1431.50 Output Total 2605 / 2605 2325 / 2325 400 / 400 Balance 1977.5 / 1977.5 235.25 / 235.25 1031.50 / 1031.50 General: Alert, Oriented x3, Cooperative HEENT: Atraumatic, PERRLA, EOMI, Normocephalic Neck: Supple, No JVD, Negative Carotid Bruits Lungs: Clear to auscultation, Normal air movement Cardiovascular: Regular rate, No murmurs Abdomen: Bowel Sounds Present, Soft, Non Tender Extremities: No edema, Capillary Refill Less than 3 Seconds, Edema - Edema about the right foot only. Skin: No rashes, No breakdown Musculoskeletal: No Tenderness to Palpation of Joints or Extremities Neurological: Cranial nerves II-XII grossly intact Psych/Mental Status: Normal Affect, Appropriate Microbiology Past 72 Hours 11/25/20 17:10 Wound - Right Foot Gram Stain - Final 11/25/20 17:10 Wound - Right Foot Wound Culture - Final Staphylococcus epidermidis 11/25/20 17:10 Wound - Right Foot Anaerobic Culture - Preliminary No growth in 48 hours. 11/25/20 15:45 Blood Culture (Wb) - Right Hand Blood Culture - Preliminary No growth in 48 hours. 11/25/20 15:30 Blood Culture (Wb) - Anticubital Right Blood Culture - Preliminary No growth in 48 hours. Laboratory Results 11/30/20 05:12: Vancomycin Trough 26.0 H 11/30/20 05:12: WBC 5.5, RBC 4.30 L, Hgb 13.7, Hct 41.7, MCV 97.0 H, MCH 31.9, MCHC 32.9, RDW Std Deviation 42.6, RDW Coeff of José Luis 12.0, Plt Count 259, MPV 8.4, Immature Gran % (Auto) 0.200, Neut % (Auto) 56.7, Lymph % (Auto) 23.9, [place] % (Auto) 9.7, Eos % (Auto) 8.8 H, Baso % (Auto) 0.7, Absolute Neuts (auto) 3.1, Absolute Lymphs (auto) 1.31, Nucleated RBC % 0 11/30/20 05:12: Sodium 137, Potassium 3.9, Chloride 106, Carbon Dioxide 25.0, Anion Gap 6, BUN 8, Creatinine 1.01, Estim Creat Clear Calc 69.27, Est GFR (MDRD) Af Amer 93, Est GFR (MDRD) Non-Af 77, BUN/Creatinine Ratio 7.9 L, Glucose 103, Calcium 8.3 L 11/30/20 05:12: Vitamin D 25-Hydroxy 44.0 Current Medications Acetaminophen (Acetaminophen 325 Mg Tablet) 650 mg PO Q6H PRN PRN PRN Reason: Pain Score 1-10/Temp > 100.7 F Last Admin: 11/30/20 08:19 Dose: 650 mg Documented by: Albuterol Sulfate (Albuterol 2.5 Mg/3 Ml Vial.Neb.) 2.5 mg INHALATION Q2H PRN PRN PRN Reason: Shortness of breath, wheezing Last Admin: 11/28/20 11:35 Dose: 2.5 mg Documented by: Albuterol/Ipratropium (Ipratropium/Albuterol Sulfate 3 Ml Ampul.Neb) 3 ml INHALATION Q6H.RT [facility] Last Admin: 11/30/20 07:49 Dose: 3 ml Documented by: Enoxaparin Sodium (Enoxaparin 40 Mg/0.4 Ml Syringe) 40 mg SC DAILY [facility] Last Admin: 11/30/20 10:34 Dose: 40 mg Documented by: Famotidine (Famotidine 20 Mg Tablet) 20 mg PO DAILY [facility] Last Admin: 11/30/20 10:34 Dose: 20 mg Documented by: Fluticasone Propionate (Fluticasone 0.05% 1 [place] Nasal.Sry) 2 spray NASAL DAILY [facility] Last Admin: 11/30/20 10:34 Dose: 2 spray Documented by: Sodium Chloride () 1,000 mls @ 75 mls/hr IV .[id number] [facility] Last Infusion: 11/30/20 06:30 Dose: 0 mls/hr Documented by: Ampicillin Sodium/Sulbactam (Sodium 3 gm/ Sodium Chloride) 112 mls @ 150 mls/hr IV Q8 [facility] Last Infusion: 11/30/20 05:58 Dose: Infused Documented by: Vancomycin IV Pharmacy to Dose (1 each/ Sodium Chloride) 500 mls @ 250 mls/hr IV PRN PRN; Protocol PRN Reason: Rx to Dose L-Arginine/L-Glutamine/Calcium HMB ([facility] (Unflavored) [facility]) [facility] Last Admin: 11/30/20 08:16 Dose: 1 packet Documented by: Ondansetron HCl (Ondansetron 4 Mg/2 Ml Vial) 4 mg IV Q8H PRN PRN PRN Reason: NAUSEA/VOMITING Last Admin: 11/28/20 18:07 Dose: 4 mg Documented by: Oxycodone HCl (Oxycodone 5 Mg Tablet) 5 mg PO Q4H PRN PRN PRN Reason: Pain Score 4-10 Last Admin: 11/30/20 08:18 Dose: 5 mg Documented by: Senna/Docusate Sodium (Senna/Docusate Sodium 1 Tablet) 2 tablet PO BID PRN PRN PRN Reason: Constipation Sodium Chloride (0.9% Saline Lock 10 Ml Syringe) 10 - 40 ml IV UD PRN PRN Reason: SALINE FLUSH Last Admin: 11/26/20 17:50 Dose: 10 ml Documented by: Throat Lozenges (Benzocaine/Menthol 1 Lozenge) 2 lozenge MUCOUS MEM Q2H PRN PRN PRN Reason: SORE THROAT Last Admin: 11/26/20 18:33 Dose: 2 lozenge Documented by: Zolpidem Tartrate (Zolpidem Tartrate 5 Mg Tablet) 5 mg PO QHS PRN PRN PRN Reason: INSOMNIA Last Admin: 11/28/20 22:02 Dose: 5 mg Documented by: Medical Necessity - Tobacco Use Smoking Status: Never smoker Tobacco Use: Non-smoker Assessment/Plan Upon my physical exam patient was feeling well, reports no change in status from yesterday. CBC and BMP unremarkable. Vital signs stable. Patient did undergo minor surgery yesterday for wound debridement and removal of hardware from right foot. Podiatry has requested that patient remain admitted over the night to monitor for any complications related to bleeding, uncontrolled pain and patient reported unsteadiness on his feet. Hospital medicine team and podiatry are in agreement that patient can be discharged tomorrow. 1) Right foot osteomyelitis with infected hardware: Podiatry and ID following. Minor surgery completed on 11/29/2020; wound debridement with removal of hardware from right foot. Blood cultures demonstrate no growth in 48 hours. Wound culture of the right foot grew Staph epidermidis. Foot and aspirate culture pending. Plan; keep right foot elevated, partial weight bearing of the right foot, wound dressing changes daily, continue Unasyn and Vancomycin per ID. 2) Rheumatoid arthritis: Continue to hold Leflunomide, follow up with rheumatology as outpatient. DVT prophylaxis -Lovenox [facility] Patient seen by Ralph Melendez PA-C, under the supervision of Dr. Newsome. <Franco Newsome - Last Filed: 11/30/20 15:12> Reason for Visit: Follow-up for foot infection Objective: Patient heart rate and blood pressure is controlled. Physical exam General: Alert, Oriented x3, Cooperative HEENT: Atraumatic, PERRLA, EOMI, Normocephalic Oral: No Gingival or Mucosal Lesions/ Ulcerations Neck: Supple, No JVD, Negative Carotid Bruits Lungs: Air entry diminished in bilateral lung bases. No crepitation/rhonchi Cardiovascular: Regular rate, Regular Rhythm, Normal S1, Normal S2, No murmurs Abdomen: Bowel Sounds Present, Soft, Non Tender, Non-Distended : No renal angle tenderness. No suprapubic tenderness. Extremities: No edema, Capillary Refill Less than 3 Seconds Skin: Ulcer over right arch of foot. Right second toe partial amputation. Musculoskeletal: No Tenderness to Palpation of Joints or Extremities Neurological: Cranial nerves II-XII grossly intact, loss of ankle and foot gross sensory touch, position sense of toe. Psych/Mental Status: Normal Affect, Appropriate. Vitals/I&O's: Vital Signs Temp Pulse Resp BP Pulse Ox 97.8 F 88 16 115/78 94 11/30/20 14:27 11/30/20 14:27 11/30/20 14:27 11/30/20 14:27 11/30/20 14:27 Oxygen Delivery Method Room Air Weight: 223 lb Body Mass Index (BMI) 32.0 Intake and Output for Last 24 Hours 11/28/20 11/29/20 11/30/20 23:59 23:59 23:59 Intake Total 4583.5 / 4583.5 2560.25 / 2560.25 1431.50 / 1431.50 Output Total 2605 / 2605 2325 / 2325 400 / 400 Balance 1977. / 1977. 235.25 / 235.25 1031.50 / 1031.50 Microbiology Past 72 Hours 11/29/20 Unknown Aspirate - Right Foot Gram Stain - Final 11/29/20 Unknown Aspirate - Right Foot Wound Culture - Preliminary Gram positive organism 11/29/20 Unknown Tissue - Right Foot Gram Stain - Final 11/29/20 Unknown Tissue - Right Foot Wound Culture - Preliminary No growth-Final to follow 11/29/20 Unknown Aspirate - Right Foot Gram Stain - Final 11/29/20 Unknown Aspirate - Right Foot Wound Culture - Preliminary Gram positive organism 11/25/20 17:10 Wound - Right Foot Gram Stain - Final 11/25/20 17:10 Wound - Right Foot Wound Culture - Final Staphylococcus epidermidis 11/25/20 17:10 Wound - Right Foot Anaerobic Culture - Preliminary No growth in 48 hours. 11/25/20 15:45 Blood Culture (Wb) - Right Hand Blood Culture - Preliminary No growth in 48 hours. 11/25/20 15:30 Blood Culture (Wb) - Anticubital Right Blood Culture - Prel iminary No growth in 48 hours. Laboratory Results 11/30/20 05:12: Vancomycin Trough 26.0 H 11/30/20 05:12: WBC 5.5, RBC 4.30 L, Hgb 13.7, Hct 41.7, MCV 97.0 H, MCH 31.9, MCHC 32.9, RDW Std Deviation 42.6, RDW Coeff of José Luis 12.0, Plt Count 259, MPV 8.4, Immature Gran % (Auto) 0.200, Neut % (Auto) 56.7, Lymph % (Auto) 23.9, [place] % (Auto) 9.7, Eos % (Auto) 8.8 H, Baso % (Auto) 0.7, Absolute Neuts (auto) 3.1, Absolute Lymphs (auto) 1.31, Nucleated RBC % 0 11/30/20 05:12: Sodium 137, Potassium 3.9, Chloride 106, Carbon Dioxide 25.0, Anion Gap 6, BUN 8, Creatinine 1.01, Estim Creat Clear Calc 69.27, Est GFR (MDRD) Af Amer 93, Est GFR (MDRD) Non-Af 77, BUN/Creatinine Ratio 7.9 L, Glucose 103, Calcium 8.3 L 11/30/20 05:12: Vitamin D 25-Hydroxy 44.0 Current Medications Acetaminophen (Acetaminophen 325 Mg Tablet) 650 mg PO Q6H PRN PRN PRN Reason: Pain Score 1-10/Temp > 100.7 F Last Admin: 11/30/20 08:19 Dose: 650 mg Documented by: Albuterol Sulfate (Albuterol 2.5 Mg/3 Ml Vial.Neb.) 2.5 mg INHALATION Q2H PRN PRN PRN Reason: Shortness of breath, wheezing Last Admin: 11/28/20 11:35 Dose: 2.5 mg Documented by: Albuterol/Ipratropium (Ipratropium/Albuterol Sulfate 3 Ml Ampul.Neb) 3 ml INHALATION Q6H.RT [facility] Last Admin: 11/30/20 13:50 Dose: 3 ml Documented by: Enoxaparin Sodium (Enoxaparin 40 Mg/0.4 Ml Syringe) 40 mg SC DAILY [facility] Last Admin: 11/30/20 10:34 Dose: 40 mg Documented by: Famotidine (Famotidine 20 Mg Tablet) 20 mg PO DAILY [facility] Last Admin: 11/30/20 10:34 Dose: 20 mg Documented by: Fluticasone Propionate (Fluticasone 0.05% 1 [place] Nasal.Sry) 2 spray NASAL DAILY [facility] Last Admin: 11/30/20 10:34 Dose: 2 spray Documented by: Sodium Chloride () 1,000 mls @ 75 mls/hr IV .[id number] [facility] Last Infusion: 11/30/20 06:30 Dose: 0 mls/hr Documented by: Ampicillin Sodium/Sulbactam (Sodium 3 gm/ Sodium Chloride) 112 mls @ 150 mls/hr IV Q8 [facility] Last Admin: 11/30/20 14:53 Dose: 150 mls/hr Documented by: Vancomycin IV Pharmacy to Dose (1 each/ Sodium Chloride) 500 mls @ 250 mls/hr IV PRN PRN; Protocol PRN Reason: Rx to Dose L-Arginine/L-Glutamine/Calcium HMB (Vince (Unflavored) Packet) [facility] Last Admin: 11/30/20 08:16 Dose: 1 packet Documented by: Ondansetron HCl (Ondansetron 4 Mg/2 Ml Vial) 4 mg IV Q8H PRN PRN PRN Reason: NAUSEA/VOMITING Last Admin: 11/28/20 18:07 Dose: 4 mg Documented by: Oxycodone HCl (Oxycodone 5 Mg Tablet) 5 mg PO Q4H PRN PRN PRN Reason: Pain Score 4-10 Last Admin: 11/30/20 08:18 Dose: 5 mg Documented by: Senna/Docusate Sodium (Senna/Docusate Sodium 1 Tablet) 2 tablet PO BID PRN PRN PRN Reason: Constipation Sodium Chloride (0.9% Saline Lock 10 Ml Syringe) 10 - 40 ml IV UD PRN PRN Reason: SALINE FLUSH Last Admin: 11/26/20 17:50 Dose: 10 ml Documented by: Throat Lozenges (Benzocaine/Menthol 1 Lozenge) 2 lozenge MUCOUS MEM Q2H PRN PRN PRN Reason: SORE THROAT Last Admin: 11/26/20 18:33 Dose: 2 lozenge Documented by: Zolpidem Tartrate (Zolpidem Tartrate 5 Mg Tablet) 5 mg PO QHS PRN PRN PRN Reason: INSOMNIA Last Admin: 11/28/20 22:02 Dose: 5 mg Documented by: STROKE Vital Signs/Narrative: Vital Signs Temp Pulse Resp BP Pulse Ox 11/30/20 14:27 97.8 F 88 16 115/78 94 11/30/20 13:50 85 18 94 Assessment/Plan This patient was seen in conjunction with NITHYA Andrea. I have independently interviewed and examined the patient and reviewed pertinent history, examination findings, laboratory and plan of management. I have reviewed the note and agree with the documented findings with the few additional points. In brief, patient is admitted for swelling and pain over right foot. 1. Right foot osteomyelitis with infected hardware: Patient had bone scan was reported as possible osteomyelitis. Patient had right foot TMT and midfoot arthrodesis in July 2020 with nonhealing wound. IV antibiotics Unasyn and vancomycin. ID on board. Wound culture shows MRSE. Tagged WBC scan of feet and ankles showed postoperative changes but no scintigraphic evidence of osteomyelitis. Operative tissue cultures are pending. 2. Rheumatoid arthritis : Patient's leflunomide is on hold because of underlying infection as mentioned above Follow-up with rheumatology as outpatient 3. VTE prophylaxis with enoxaparin I have discussed my assessment with NITHYA Andrea and orders have been reviewed. Microbiology Past 72 Hours 11/29/20 Unknown Aspirate - Right Foot Gram Stain - Final 11/29/20 Unknown Aspirate - Right Foot Wound Culture - Preliminary Gram positive organism 11/29/20 Unknown Tissue - Right Foot Gram Stain - Final 11/29/20 Unknown Tissue - Right Foot Wound Culture - Preliminary No growth-Final to follow 11/29/20 Unknown Aspirate - Right Foot Gram Stain - Final 11/29/20 Unknown Aspirate - Right Foot Wound Culture - Preliminary Gram positive organism 11/25/20 17:10 Wound - Right Foot Gram Stain - Final 11/25/20 17:10 Wound - Right Foot Wound Culture - Final Staphylococcus epidermidis 11/25/20 17:10 Wound - Right Foot Anaerobic Culture - Preliminary No growth in 48 hours. 11/25/20 15:45 Blood Culture (Wb) - Right Hand Blood Culture - Preliminary No growth in 48 hours. 11/25/20 15:30 Blood Culture (Wb) - Anticubital Right Blood Culture - Preliminary No growth in 48 hours. Laboratory Results 11/30/20 05:12: Vancomycin Trough 26.0 H 11/30/20 05:12: WBC 5.5, RBC 4.30 L, Hgb 13.7, Hct 41.7, MCV 97.0 H, MCH 31.9, MCHC 32.9, RDW Std Deviation 42.6, RDW Coeff of José Luis 12.0, Plt Count 259, MPV 8.4, Immature Gran % (Auto) 0.200, Neut % (Auto) 56.7, Lymph % (Auto) 23.9, [place] % (Auto) 9.7, Eos % (Auto) 8.8 H, Baso % (Auto) 0.7, Absolute Neuts (auto) 3.1, Absolute Lymphs (auto) 1.31, Nucleated RBC % 0 11/30/20 05:12: Sodium 137, Potassium 3.9, Chloride 106, Carbon Dioxide 25.0, Anion Gap 6, BUN 8, Creatinine 1.01, Estim Creat Clear Calc 69.27, Est GFR (MDRD) Af Amer 93, Est GFR (MDRD) Non-Af 77, BUN/Creatinine Ratio 7.9 L, Glucose 103, Calcium 8.3 L 11/30/20 05:12: Vitamin D 25-Hydroxy 44.0 Inpatient E&M: 65875 Subs Hosp L2
--- NOTE | 2020-11-30 16:09 | CHAPLAIN ---
Type of Pastoral Visit ___ Initial Visit ___ Follow-up Visit ___ On-call Visit ___ General Patient Visit ___ Spiritual Assessment ___ Family Conference ___ Bereavement ___ Rapid Response ___ Code Blue ___ Other (describe below) Pastoral Care Referral From ___ Patient ___ Family ___ Nurse ___ Physician ___ Weed Cutter ___ Supervisor [employer] ___ Other (describe below) Sacrament/Intervention ___ Active listening ___ Anointing ___ Episcopalian ___ Bereavement ___ Communion ___ Sara exploration ___ ___ Life review ___ Prayer ___ Reconciliation ___ Sacrament of Sick ___ Supportive presence ___ Wedding ___ Other (describe below) Pastoral Comments two attempts today and one yesterday and pt is busy or unavailable
--- NOTE | 2020-11-30 19:06 | PCM.PN.ID ---
Subjective: Feeling ok, no fever, no n/v/d. - Physical Exam Vitals/I&O's: Vital Signs Temp Pulse Resp BP Pulse Ox 97.8 F 88 16 115/78 94 11/30/20 14:27 11/30/20 14:27 11/30/20 14:27 11/30/20 14:27 11/30/20 14:27 Oxygen Delivery Method Room Air Weight: 101.151 kg Body Mass Index (BMI) 32.0 Intake and Output for Last 24 Hours 11/28/20 11/29/20 11/30/20 23:59 23:59 23:59 Intake Total 4583.5 / 4583.5 2560.25 / 2560.25 1543.50 / 1543.50 Output Total 2605 / 2605 2325 / 2325 1400 / 1400 Balance 1978.5 / 1977. 235.25 / 235.25 143.50 / 143.50 General: Alert, Cooperative, No apparent distress Lungs: Clear to auscultation, Normal air movement Cardiovascular: Regular rate, Regular Rhythm Abdomen: Soft, Non Tender, Non-Distended Skin: Ulcer/ Wound - foot wrapped Microbiology Past 72 Hours 11/29/20 Unknown Aspirate - Right Foot Gram Stain - Final 11/29/20 Unknown Aspirate - Right Foot Wound Culture - Preliminary Gram positive organism 11/29/20 Unknown Tissue - Right Foot Gram Stain - Final 11/29/20 Unknown Tissue - Right Foot Wound Culture - Preliminary No growth-Final to follow 11/29/20 Unknown Aspirate - Right Foot Gram Stain - Final 11/29/20 Unknown Aspirate - Right Foot Wound Culture - Preliminary Gram positive organism 11/25/20 17:10 Wound - Right Foot Gram Stain - Final 11/25/20 17:10 Wound - Right Foot Wound Culture - Final Staphylococcus epidermidis 11/25/20 17:10 Wound - Right Foot Anaerobic Culture - Preliminary No growth in 48 hours. 11/25/20 15:45 Blood Culture (Wb) - Right Hand Blood Culture - Preliminary No growth in 48 hours. 11/25/20 15:30 Blood Culture (Wb) - Anticubital Right Blood Culture - Preliminary No growth in 48 hours. Laboratory Results 11/30/20 05:12: Vancomycin Trough 26.0 H 11/30/20 05:12: WBC 5.5, RBC 4.30 L, Hgb 13.7, Hct 41.7, MCV 97.0 H, MCH 31.9, MCHC 32.9, RDW Std Deviation 42.6, RDW Coeff of José Luis 12.0, Plt Count 259, MPV 8.4, Immature Gran % (Auto) 0.200, Neut % (Auto) 56.7, Lymph % (Auto) 23.9, [place] % (Auto) 9.7, Eos % (Auto) 8.8 H, Baso % (Auto) 0.7, Absolute Neuts (auto) 3.1, Absolute Lymphs (auto) 1.31, Nucleated RBC % 0 11/30/20 05:12: Sodium 137, Potassium 3.9, Chloride 106, Carbon Dioxide 25.0, Anion Gap 6, BUN 8, Creatinine 1.01, Estim Creat Clear Calc 69.27, Est GFR (MDRD) Af Amer 93, Est GFR (MDRD) Non-Af 77, BUN/Creatinine Ratio 7.9 L, Glucose 103, Calcium 8.3 L 11/30/20 05:12: Vitamin D 25-Hydroxy 44.0 Current Medications Acetaminophen (Acetaminophen 325 Mg Tablet) 650 mg PO Q6H PRN PRN PRN Reason: Pain Score 1-10/Temp > 100.7 F Last Admin: 11/30/20 17:28 Dose: 650 mg Documented by: Albuterol Sulfate (Albuterol 2.5 Mg/3 Ml Vial.Neb.) 2.5 mg INHALATION Q2H PRN PRN PRN Reason: Shortness of breath, wheezing Last Admin: 11/28/20 11:35 Dose: 2.5 mg Documented by: Albuterol/Ipratropium (Ipratropium/Albuterol Sulfate 3 Ml Ampul.Neb) 3 ml INHALATION Q6H.RT [facility] Last Admin: 11/30/20 13:50 Dose: 3 ml Documented by: Enoxaparin Sodium (Enoxaparin 40 Mg/0.4 Ml Syringe) 40 mg SC DAILY [facility] Last Admin: 11/30/20 10:34 Dose: 40 mg Documented by: Famotidine (Famotidine 20 Mg Tablet) 20 mg PO DAILY [facility] Last Admin: 11/30/20 10:34 Dose: 20 mg Documented by: Fluticasone Propionate (Fluticasone 0.05% 1 [place] Nasal.Sry) 2 spray NASAL DAILY [facility] Last Admin: 11/30/20 10:34 Dose: 2 spray Documented by: Sodium Chloride () 1,000 mls @ 75 mls/hr IV .[id number] [facility] Last Infusion: 11/30/20 06:30 Dose: 0 mls/hr Documented by: Ampicillin Sodium/Sulbactam (Sodium 3 gm/ Sodium Chloride) 112 mls @ 150 mls/hr IV Q8 [facility] Last Infusion: 11/30/20 15:38 Dose: Infused Documented by: Vancomycin IV Pharmacy to Dose (1 each/ Sodium Chloride) 500 mls @ 250 mls/hr IV PRN PRN; Protocol PRN Reason: Rx to Dose L-Arginine/L-Glutamine/Calcium [facility]MB ([facility]ince (Unflav[facility]) [facility] Last Admin: 11/30/20 17:25 Dose: Not Given Documented by: Ondansetron HCl (Ondansetron 4 Mg/2 Ml Vial) 4 mg IV Q8H PRN PRN PRN Reason: NAUSEA/VOMITING Last Admin: 11/28/20 18:07 Dose: 4 mg Documented by: Oxycodone HCl (Oxycodone 5 Mg Tablet) 5 mg PO Q4H PRN PRN PRN Reason: Pain Score 4-10 Last Admin: 11/30/20 17:28 Dose: 5 mg Documented by: Senna/Docusate Sodium (Senna/Docusate Sodium 1 Tablet) 2 tablet PO BID PRN PRN PRN Reason: Constipation Sodium Chloride (0.9% Saline Lock 10 Ml Syringe) 10 - 40 ml IV UD PRN PRN Reason: SALINE FLUSH Last Admin: 11/26/20 17:50 Dose: 10 ml Documented by: Throat Lozenges (Benzocaine/Menthol 1 Lozenge) 2 lozenge MUCOUS MEM Q2H PRN PRN PRN Reason: SORE THROAT Last Admin: 11/26/20 18:33 Dose: 2 lozenge Documented by: Zolpidem Tartrate (Zolpidem Tartrate 5 Mg Tablet) 5 mg PO QHS PRN PRN PRN Reason: INSOMNIA Last Admin: 11/28/20 22:02 Dose: 5 mg Documented by: Medical Necessity - Tobacco Use Smoking Status: Never smoker Tobacco Use: Non-smoker Route of nutrition/ use of supplements: [] Nutritional Intake: [] IV Site: [] [place]ado Catheter: [] - Assessment/Plan Antibiotics: [] Assessment/Plan: [] R foot infection with hardware present - had been on po doxy for MRSE. Cont empiric vanc/unasyn. Now s/p OR with Dr. Painter 11/29 for hardware removal and I&D. Picc in place. Plan on 6 weeks iv abx at discharge. Will follow
[2020-12-01 01:14] VITALS: PULSE 82; RESP 18
[2020-12-01] MEDS: Ipratropium/Albuterol Sulfate 3 ML AMPUL.NEB INHALATION ×3 (01:14→13:32)
[2020-12-01 03:45] VITALS: BP 113/56; PULSE 78; RESP 16; TEMP 36.5; O2SAT 97
--- NOTE | 2020-12-01 07:11 | PN_ITS ---
Subjective: Patient was seen this morning for follow up on right foot. He relates he slept well. No fever, chill, nausea or vomiting, no chest, SOB or calf pain complaints. - Physical Exam Vitals/I&O's: Vital Signs Temp Pulse Resp BP Pulse Ox 97.7 F L 78 16 113/56 L 97 12/01/20 03:45 12/01/20 03:45 12/01/20 03:45 12/01/20 03:45 12/01/20 03:45 Oxygen Delivery Method CPAP Weight: 101.151 kg Body Mass Index (BMI) 32.0 Intake and Output for Last 24 Hours 11/29/20 11/30/20 12/01/20 23:59 23:59 23:59 Intake Total 2560.25 / 2560.25 1655.50 / 1655.50 112 / 112 Output Total 2325 / 2325 2500 / 2500 600 / 600 Balance 235.25 / 235.25 -844.50 / -844.50 -488 / -488 General: Alert, Oriented x3, Cooperative, No apparent distress Extremities: Capillary Refill Less than 3 Seconds, No Calf Tenderness, - - Incision sites right foot well coapted, no cellulitis, no dehiscence, sutures are intact, no necrosis, no streaking, no visible abscess, tissues are healthy and viable. There is edema localized to right foot, no leg edema. Patient able to move toes and foot, right. Musculoskeletal: - - No gross instability to the right foot. TMT right foot stable. Psych/Mental Status: Normal Affect, Alert and oriented to time, place, person, mood and affect Microbiology Past 72 Hours 11/29/20 Unknown Aspirate - Right Foot Gram Stain - Final 11/29/20 Unknown Aspirate - Right Foot Wound Culture - Preliminary Gram positive organism 11/29/20 Unknown Tissue - Right Foot Gram Stain - Final 11/29/20 Unknown Tissue - Right Foot Wound Culture - Preliminary No growth-Final to follow 11/29/20 Unknown Aspirate - Right Foot Gram Stain - Final 11/29/20 Unknown Aspirate - Right Foot Wound Culture - Preliminary Gram positive organism 11/25/20 17:10 Wound - Right Foot Gram Stain - Final 11/25/20 17:10 Wound - Right Foot Wound Culture - Final Staphylococcus epidermidis 11/25/20 17:10 Wound - Right Foot Anaerobic Culture - Preliminary No growth in 48 hours. 11/25/20 15:45 Blood Culture (Wb) - Right Hand Blood Culture - Preliminary No growth in 48 hours. 11/25/20 15:30 Blood Culture (Wb) - Anticubital Right Blood Culture - Preliminary No growth in 48 hours. Laboratory Results 11/30/20 05:12: Vitamin D 25-Hydroxy 44.0 Current Medications Acetaminophen (Acetaminophen 325 Mg Tablet) 650 mg PO Q6H PRN PRN PRN Reason: Pain Score 1-10/Temp > 100.7 F Last Admin: 11/30/20 17:28 Dose: 650 mg Documented by: Albuterol Sulfate (Albuterol 2.5 Mg/3 Ml Vial.Neb.) 2.5 mg INHALATION Q2H PRN PRN PRN Reason: Shortness of breath, wheezing Last Admin: 11/28/20 11:35 Dose: 2.5 mg Documented by: Albuterol/Ipratropium (Ipratropium/Albuterol Sulfate 3 Ml Ampul.Neb) 3 ml INHALATION Q6H.RT [facility] Last Admin: 12/01/20 01:14 Dose: 3 ml Documented by: Enoxaparin Sodium (Enoxaparin 40 Mg/0.4 Ml Syringe) 40 mg SC DAILY [facility] Last Admin: 11/30/20 10:34 Dose: 40 mg Documented by: Famotidine (Famotidine 20 Mg Tablet) 20 mg PO DAILY [facility] Last Admin: 11/30/20 10:34 Dose: 20 mg Documented by: Fluticasone Propionate (Fluticasone 0.05% 1 [place] Nasal.Sry) 2 spray NASAL DAILY [facility] Last Admin: 11/30/20 10:34 Dose: 2 spray Documented by: Sodium Chloride () 1,000 mls @ 75 mls/hr IV .[id number] [facility] Last Admin: 11/30/20 20:14 Dose: 75 mls/hr Documented by: Ampicillin Sodium/Sulbactam (Sodium 3 gm/ Sodium Chloride) 112 mls @ 150 mls/hr IV Q8 [facility] Last Infusion: 12/01/20 06:57 Dose: Infused Documented by: Vancomycin IV Pharmacy to Dose (1 each/ Sodium Chloride) 500 mls @ 250 mls/hr IV PRN PRN; Protocol PRN Reason: Rx to Dose L-Arginine/L-Glutamine/Calcium HMB (Vince (Unflavored) Packet) 1 packet PO BIDCM JERICHO Last Admin: 11/30/20 17:25 Dose: Not Given Documented by: Ondansetron HCl (Ondansetron 4 Mg/2 Ml Vial) 4 mg IV Q8H PRN PRN PRN Reason: NAUSEA/VOMITING Last Admin: 11/28/20 18:07 Dose: 4 mg Documented by: Oxycodone HCl (Oxycodone 5 Mg Tablet) 5 mg PO Q4H PRN PRN PRN Reason: Pain Score 4-10 Last Admin: 11/30/20 17:28 Dose: 5 mg Documented by: Senna/Docusate Sodium (Senna/Docusate Sodium 1 Tablet) 2 tablet PO BID PRN PRN PRN Reason: Constipation Sodium Chloride (0.9% Saline Lock 10 Ml Syringe) 10 - 40 ml IV UD PRN PRN Reason: SALINE FLUSH Last Admin: 11/26/20 17:50 Dose: 10 ml Documented by: Throat Lozenges (Benzocaine/Menthol 1 Lozenge) 2 lozenge MUCOUS MEM Q2H PRN PRN PRN Reason: SORE THROAT Last Admin: 11/26/20 18:33 Dose: 2 lozenge Documented by: Zolpidem Tartrate (Zolpidem Tartrate 5 Mg Tablet) 5 mg PO QHS PRN PRN PRN Reason: INSOMNIA Last Admin: 11/28/20 22:02 Dose: 5 mg Documented by: Medical Necessity - Tobacco Use Smoking Status: Never smoker Tobacco Use: Non-smoker Assessment/Plan Right foot s/p TMT and midfoot arthrodesis Jul 2020 with nonhealing wound; with infected hardware s/p hardware removal on 11/29/2020 Rheumatoid arthritis and other comorbidities Reviewed diagnostic data. Foot looks good today, no evidence of complication from hardware removal. Incision sites were painted with betadine soln, applied gauze, kerlix and billy dressing. Keep dressing clean, dry and intact. Keep right foot elevated. No weightbearing right foot. Patient is on Vancomycin and Unasyn, ID/Dr. Gomes on consult. New surgical culture results pending - growing gram positive organism. From podiatry standpoint ok to d/c home once final antibiotic recommendations are determined. Patient to follow up with me in office on SundayDecember 06 sooner if needed. Also Rx for [place] for post op pain control provided in patient's chart. Podiatry will continue to follow.
--- NOTE | 2020-12-01 07:15 | DCINST_ITS ---
Discharge Activity: Use Walker Weight Bearing Status: No weight bearing - No weightbearing right foot. Keep extremity elevated above heart level: Right Leg - Keep right foot elevated using pillows for at least 40-50 minutes of every hour to help keep swelling down. 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 Allergies/Adverse Reactions: Allergies gluten Allergy (Verified 11/25/20 15:06) Food Allergy peanut Allergy (Verified 11/25/20 15:06) Food Allergy yeast, dried [yeast] Allergy (Verified 11/25/20 15:06) Food Allergy environmental Allergy (Uncoded 11/25/20 15:06) PT UNSURE OF REACTION Medications to take at Discharge Tiotropium [place] [Spiriva Respimat] 2 puff INHALATION DAILY 11/10/20 Acetaminophen [Tylenol Arthritis] 650 mg PO DAILY 11/25/20 Cholecalciferol (Vitamin D3) [Vitamin D3] 2,000 unit PO DAILY 11/25/20 Cranberry Fruit Extract [Cranberry] 500 mg PO DAILY 11/25/20 Famotidine 20 mg PO DAILY 11/25/20 Fluticasone 0.05% [Flonase Nasal [place]] 2 spray NASAL DAILY 11/25/20 Multivit-Min/FA/Lycopen/Lutein [Centrum Silver Men Tablet] 1 tablet PO DAILY 11/25/20 Ondansetron [Zofran Odt] 4 mg PO Q8H PRN PRN 11/25/20 Risedronate Sodium 150 mg PO QMONTH 11/25/20 Hydrocodone Bitart/Apap 5-325 [[place] 5MG-325MG] 1 - 2 tablet PO Q6H PRN PRN 3 Days #20 tab 12/01/20 Hydrocodone Bitart/Apap 5-325 [[place] 5MG-325MG] 1 - 2 tablet PO Q6H PRN PRN 3 Days #20 tab 12/01/20 Vancomycin IV 1,250 mg IV Q12H 40 Days #80 vial 04/21/21 The following prescriptions were given: Hydrocodone Bitart/Apap 5-325 [[place] 5MG-325MG] 1 - 2 tablet PO Q6H PRN PRN 3 Days #20 tab PRN Reason: Pain Prescription Printed Hydrocodone Bitart/Apap 5-325 [[place] 5MG-325MG] 1 - 2 tablet PO Q6H PRN PRN 3 Days #20 tab PRN Reason: Pain Transmission Status: Received by [id number] Vancomycin IV 1,250 mg IV Q12H 40 Days #80 vial Prescription Printed Primary Care Physician: Ganga Acosta DO [Primary Care Provider] - Test Results: Test results from this visit will be discussed in further detail at your follow- up appointment, if applicable. Please Follow Up With: Erickson Painter DPM - Office number: [phone] When: Sunday December 06, 2020 at [facility], but call sooner if needed.
[2020-12-01] MEDS: oxyCODONE 5 MG Tablet PO (07:23)
[2020-12-01] MEDS: Acetaminophen 325 MG Tablet 650 MG PO (07:23)
[2020-12-01] MEDS: Juven (unflavored) Packet 1 PACKET PO (07:24)
[2020-12-01 08:25] VITALS: BP 122/74; PULSE 85; RESP 16; TEMP 36.6; O2SAT 95
[2020-12-01 08:59] VITALS: O2SAT 95
--- NOTE | 2020-12-01 09:10 | PCM.RX.CS ---
Consult Pharmacy has been consulted to manage selected antiobiotic: Vancomycin Type of Consult: Follow-up Prior Doses of Antibiotics Received/Current Regimen: had been on 1750mg q12h prior to it being held for a high trough yesterday Labs: Sodium 137 mmol/L (136-145) 11/30/20 05:12 Potassium 3.9 mmol/L (3.5-5.1) 11/30/20 05:12 Chloride 106 mmol/L (98-107) 11/30/20 05:12 Carbon Dioxide 25.0 mmol/L (21.0-32.0) 11/30/20 05:12 Anion Gap 6 (5-15) 11/30/20 05:12 BUN 8 mg/dL (7-18) 11/30/20 05:12 Creatinine 1.01 mg/dL (0.70-1.30) 11/30/20 05:12 Est GFR (MDRD) Af Amer 93 mL/min (>60) 11/30/20 05:12 Est GFR (MDRD) Non-Af 77 mL/min (>60) 11/30/20 05:12 BUN/Creatinine Ratio 7.9 RATIO (10-20) L 11/30/20 05:12 Glucose 103 mg/dL (74-106) 11/30/20 05:12 Vancomycin Trough 26.0 ug/mL (5.0-15.0) H 11/30/20 05:12 Random Vancomycin 13.0 ug/mL (0.0-15.0) 12/01/20 08:15 Microbiology: Microbiology 11/29/20 Unknown Aspirate - Right Foot Gram Stain - Final 11/29/20 Unknown Aspirate - Right Foot Wound Culture - Preliminary Coag Negative Staph 11/29/20 Unknown Aspirate - Right Foot Gram Stain - Final 11/29/20 Unknown Aspirate - Right Foot Wound Culture - Preliminary Coag Negative Staph 11/25/20 15:45 Blood Culture (Wb) - Right Hand Blood Culture - Final No growth in 5 days. 11/25/20 15:30 Blood Culture (Wb) - Anticubital Right Blood Culture - Final No growth in 5 days. 11/29/20 Unknown Tissue - Right Foot Gram Stain - Final 11/29/20 Unknown Tissue - Right Foot Wound Culture - Preliminary No growth-Final to follow 11/25/20 17:10 Wound - Right Foot Gram Stain - Final 11/25/20 17:10 Wound - Right Foot Wound Culture - Final Staphylococcus epidermidis 11/25/20 17:10 Wound - Right Foot Anaerobic Culture - Preliminary No growth in 48 hours. Weight used for dosin.2 kg Estimated Creatinine Clearance: 80ml/min Goal Trough: 15-20 mcg/mL Pharmacy Plan for Drug Dosing: The vancomycin random level drawn today came back at 13.0. This is back below 20 so dosing can be restarted. Will restart at a reduced dose of 1250mg IV q12h. Will check a trough level before the 4th new dose tomorrow night. Pharmacy Service will continue to monitor and adjust dosing as required. Follow-Up Labs: Trough Vancomycin Labs to be done on [date and time ordered]: 12/01/20 21:30
--- NOTE | 2020-12-01 09:36 | CASEMGMT ---
Addendum entered by Shelia Munoz 12/01/20 13:09: Pt to dc on vanco only. TC to Pili at [facility] to make aware that fax sent of Picc info and script. TC to [facility] and spoke with Corinna and faxed same info. Pt updated that there will be one med instead of two and [facility] will be in touch to see him this evening. No further questions. Addendum entered by Shelia Munoz 12/01/20 12:14: Per Pili at [facility], pt insurance will cover at 80% until $2500 oop is met. Pt portion for meds and supplies will be $111/wk. RN CM in to discuss with pt. Pt is agreeable to this cost. TC to [facility] to verify acceptance of pt. Per Corinna intake, they will see pt this evening. Pt aware. No further needs at this time. Original Note: RN AMARILIS noted pt to be sent home on IV antibiotics. PAOLO CM in to pt room. Patient was provided a list of [facility] providers as well as Infusion companies including quality and resource use data and consistent with the patient?s preferred geographic region, medical needs, and insurance network. The patient?s preferred provider [facility] and [facility]. TC to [facility] and referral made. TC to [facility] and left message with Corinna intake for referral. Awaiting acceptance. Pt states his granddtr is able to assist with IV infusions and he may be able to as well. CM will cont to follow for safe dc.
[2020-12-01] MEDS: Famotidine 20 MG Tablet PO (10:22)
[2020-12-01] MEDS: Enoxaparin 40 MG/0.4 ML Syringe SC (10:22)
[2020-12-01] MEDS: Fluticasone 0.05% 1 SPRAY NASAL.SRY 2 SPRAY NASAL (10:22)
--- NOTE | 2020-12-01 10:46 | PCM.DC ---
- Discharge Diagnoses Current Active Problems: Current Active and Chronic Problems (Last Updated 11/25/20 @ 16:[address] Namrata Zuñiga MD) Chronic venous insufficiency (Chronic) History of prostate cancer (Chronic) Hyperlipidemia (Chronic) Exposed orthopaedic hardware (Chronic) Asthma (Chronic) Rheumatoid arthritis (Chronic) GERD (gastroesophageal reflux disease) (Chronic) You will use the following diet at home:: No restrictions Your food should be the consistency of: Regular Your liquids should be the consistency of: Regular/Thin Discharge Activity: Return to Normal Activity, Use Walker Weight Bearing Status: No weight bearing - No weightbearing right foot. Keep extremity elevated above heart level: Right Leg - Keep right foot elevated using pillows for at least 40-50 minutes of every hour to help keep swelling down. Call your doctor if your incision/area has: Continuous Slow Oozing, Sudden Increased Bleeding, Foul Smelling Discharge Call your doctor if you observe: Fever of 101 or Higher, Shortness of breath, Chest pain, Uncontrolled pain Cleanse incision/area with: Do not get Incision Wet, Keep Dressing Clean & Dry Allergies/Adverse Reactions: Allergies gluten Allergy (Verified 11/25/20 15:06) Food Allergy peanut Allergy (Verified 11/25/20 15:06) Food Allergy yeast, dried [yeast] Allergy (Verified 11/25/20 15:06) Food Allergy environmental Allergy (Uncoded 11/25/20 15:06) PT UNSURE OF REACTION Medications to take at Discharge RX: Tiotropium [place] [Spiriva Respimat] 2 puff INHALATION DAILY 11/10/20 RX: Acetaminophen [Tylenol Arthritis] 650 mg PO DAILY 11/25/20 RX: Cholecalciferol (Vitamin D3) [Vitamin D3] 2,000 unit PO DAILY 11/25/20 RX: Cranberry Fruit Extract [Cranberry] 500 mg PO DAILY 11/25/20 RX: Famotidine 20 mg PO DAILY 11/25/20 RX: Fluticasone 0.05% [Flonase Nasal [place]] 2 spray NASAL DAILY 11/25/20 RX: Multivit-Min/FA/Lycopen/Lutein [Centrum Silver Men Tablet] 1 tablet PO DAILY 11/25/20 RX: Ondansetron [Zofran Odt] 4 mg PO Q8H PRN PRN 11/25/20 RX: Risedronate Sodium 150 mg PO QMONTH 11/25/20 Hydrocodone Bitart/Apap 5-325 [[place] 5MG-325MG] 1 - 2 tablet PO Q6H PRN PRN 3 Days #20 tab 12/01/20 The following prescriptions were given: Hydrocodone Bitart/Apap 5-325 [[place] 5MG-325MG] 1 - 2 tablet PO Q6H PRN PRN 3 Days #20 tab PRN Reason: Pain Prescription Printed Primary Care Physician: Ganga Acosta DO [Primary Care Provider] - Please follow up with your Primary Care Physician in: Within the next 2 weeks. Test Results: Test results from this visit will be discussed in further detail at your follow-up appointment, if applicable. Please Follow Up With: Erickson Painter DPM - Office number: [phone] When: Sunday December 06, 2020 at [facility], but call sooner if needed. Please Follow Up With: Department Store General Manager - Leflunomide on hold at discharge, follow-up with early childhood aide classroom in regards to resuming. When: Within the next 2 weeks Proposed Discharge Date: 12/01/20
--- NOTE | 2020-12-01 12:47 | PCM.DC.SUM ---
<Ralph Melendez - Last Filed: 12/01/20 12:47> Discharge Date and Diagnosis Date of Admission: 11/25/20 Date of Discharge: 12/01/20 - Secondary Discharge Diagnosis Chronic Problems: Chronic Problems (Last Updated 11/25/20 @ 16:[address] Namrata Zuñiga MD) Chronic venous insufficiency (Chronic) Peripheral neuropathy (Chronic) Osteopenia (Chronic) History of prostate cancer (Chronic) Asthma (Chronic) Obesity (BMI 30.0-34.9) (Chronic) Hyperlipidemia (Chronic) Ulcer of right foot with fat layer exposed (Chronic) Exposed orthopaedic hardware (Chronic) Delayed wound healing (Chronic) Kidney stones (Chronic) Asthma (Chronic) Rheumatoid arthritis (Chronic) Obesity (Chronic) Gastric ulcer (Chronic) DDD (degenerative disc disease), cervical (Chronic) Osteoarthritis (Chronic) BPH (benign prostatic hyperplasia) (Chronic) GERD (gastroesophageal reflux disease) (Chronic) KEZIA treated with BiPAP (Chronic) On BiPAP 05/18 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 CBC and BMP unremarkable. Vital signs stable. Patient did undergo minor surgery on 11/29/2020 for wound debridement and removal of hardware from right foot. Podiatry has cleared the patient for outpatient follow-up. ID consulted for outpatient ABX management. Plan per podiatry, ID and hospital medicine team is that patient can perform outpatient antibiotic therapy and follow-up with podiatry as planned. Patient will be discharged today after infusion of antibiotics. 1) Right foot osteomyelitis with infected hardware: Podiatry and ID following. Minor surgery completed on 11/29/2020; wound debridement with removal of hardware from right foot. Blood cultures demonstrate no growth in 48 hours. Wound culture of the right foot grew Staph epidermidis. Foot and aspirate culture pending. Plan; keep right foot elevated, partial weight bearing of the right foot, wound dressing changes daily, continue IV vancomycin per ID. 2) Rheumatoid arthritis: Leflunomide held on discharge, follow-up with beef specialist about resuming. Patient seen by Ralph Melendez PA-C, under the supervision of Dr. Newsome. Subjective: Patient is a 70-year-old male who is comfortably resting in bed, alert and oriented x3. Patient is currently recovering from surgery which he received on 11/29/2020. Patient reports no change in symptoms, feels that his pain is well controlled on current pain regimen. Patient denies chest pain, shortness of breath, palpitations, fever, chills, N/V/D. Objective: Clinical Impression(s) from Imaging Studies Lower Extremity CT 11/25/20 15:19 IMPRESSION: 1. Moderate to significant soft tissue swelling. 2. No visualized abscess or subcutaneous gas. 3. Surgical ankylosis of the bony structures as described above Electronically Signed: Jostin Canales MD at 17:14 EDT , Service support , ADDENDUM: 11/25/20 1741 Foot X-Ray 11/25/20 16:10 IMPRESSION: 1. Significant soft tissue swelling over the dorsum of the foot Electronically Signed: Jostin Canales MD at 16:50 EDT , Service support , Bone Scan Nuclear Medicine 11/26/20 08:55 IMPRESSION: Positive three-phase activity involving the medial mid foot in region of prior surgery. Osteomyelitis is considered possible although findings can also be seen in the prolonged postoperative period. Recommend additional evaluation with nuclear medicine WBC labeled study. Electronically Signed: Ronak Young MD ([place]) at 13:40 EDT , Service support , WBC Scan Nuclear Medicine 11/29/20 06:00 Foot X-Ray 11/29/20 13:54 IMPRESSION: Fluoroscopy during surgery. Electronically Signed: Russell Bowles MD at 17:43 EDT Tel , Service support , Foot X-Ray 11/29/20 15:50 IMPRESSION: Interval removal of hardware from midfoot arthrodesis per Electronically Signed: Russell Bowles MD at 16:22 EDT Tel , Service support , Microbiology 11/29/20 Unknown Aspirate - Right Foot Gram Stain - Final 11/29/20 Unknown Aspirate - Right Foot Wound Culture - Preliminary Coag Negative Staph 11/29/20 Unknown Aspirate - Right Foot Gram Stain - Final 11/29/20 Unknown Aspirate - Right Foot Wound Culture - Preliminary Coag Negative Staph 11/25/20 15:45 Blood Culture (Wb) - Right Hand Blood Culture - Final No growth in 5 days. 11/25/20 15:30 Blood Culture (Wb) - Anticubital Right Blood Culture - Final No growth in 5 days. 11/29/20 Unknown Tissue - Right Foot Gram Stain - Final 11/29/20 Unknown Tissue - Right Foot Wound Culture - Preliminary No growth-Final to follow 11/25/20 17:10 Wound - Right Foot Gram Stain - Final 11/25/20 17:10 Wound - Right Foot Wound Culture - Final Staphylococcus epidermidis 11/25/20 17:10 Wound - Right Foot Anaerobic Culture - Preliminary No growth in 48 hours. - Physical Exam Vitals/I&O's: Vital Signs Temp Pulse Resp BP Pulse Ox 97.8 F 85 16 122/74 H 95 12/01/20 08:25 12/01/20 08:25 12/01/20 08:25 12/01/20 08:25 12/01/20 08:59 Oxygen Delivery Method Room Air Weight: 223 lb Body Mass Index (BMI) 32.0 Intake and Output for Last 24 Hours 11/29/20 11/30/20 12/01/20 23:59 23:59 23:59 Intake Total 2560.25 / 2560.25 1655.50 / 1655.50 387 / 387 Output Total 2325 / 2325 2500 / 2500 600 / 600 Balance 235.25 / 235.25 -844.50 / -844.50 -213 / -213 General: Alert, Oriented x3, Cooperative HEENT: Atraumatic, PERRLA, EOMI, Normocephalic Neck: Supple, No JVD, Negative Carotid Bruits Lungs: Clear to auscultation, Normal air movement Cardiovascular: Regular rate, No murmurs Abdomen: Bowel Sounds Present, Soft, Non Tender Extremities: Capillary Refill Less than 3 Seconds, Edema - Edema about the right foot only Skin: No rashes, No breakdown Musculoskeletal: No Tenderness to Palpation of Joints or Extremities Neurological: Cranial nerves II-XII grossly intact Psych/Mental Status: Normal Affect, Appropriate Microbiology Past 72 Hours 11/29/20 Unknown Aspirate - Right Foot Gram Stain - Final 11/29/20 Unknown Aspirate - Right Foot Wound Culture - Preliminary Coag Negative Staph 11/29/20 Unknown Aspirate - Right Foot Gram Stain - Final 11/29/20 Unknown Aspirate - Right Foot Wound Culture - Preliminary Coag Negative Staph 11/25/20 15:45 Blood Culture (Wb) - Right Hand Blood Culture - Final No growth in 5 days. 11/25/20 15:30 Blood Culture (Wb) - Anticubital Right Blood Culture - Final No growth in 5 days. 11/29/20 Unknown Tissue - Right Foot Gram Stain - Final 11/29/20 Unknown Tissue - Right Foot Wound Culture - Preliminary No growth-Final to follow 11/25/20 17:10 Wound - Right Foot Gram Stain - Final 11/25/20 17:10 Wound - Right Foot Wound Culture - Final Staphylococcus epidermidis 11/25/20 17:10 Wound - Right Foot Anaerobic Culture - Preliminary No growth in 48 hours. Laboratory Results 12/01/20 08:15: Random Vancomycin 13.0 Current Medications Acetaminophen (Acetaminophen 325 Mg Tablet) 650 mg PO Q6H PRN PRN PRN Reason: Pain Score 1-10/Temp > 100.7 F Last Admin: 12/01/20 07:23 Dose: 650 mg Documented by: Albuterol Sulfate (Albuterol 2.5 Mg/3 Ml Vial.Neb.) 2.5 mg INHALATION Q2H PRN PRN PRN Reason: Shortness of breath, wheezing Last Admin: 11/28/20 11:35 Dose: 2.5 mg Documented by: Albuterol/Ipratropium (Ipratropium/Albuterol Sulfate 3 Ml Ampul.Neb) 3 ml INHALATION Q6H.RT JERICHO Last Admin: 12/01/20 01:14 Dose: 3 ml Documented by: Enoxaparin Sodium (Enoxaparin 40 Mg/0.4 Ml Syringe) 40 mg SC DAILY [facility] Last Admin: 12/01/20 10:22 Dose: 40 mg Documented by: Famotidine (Famotidine 20 Mg Tablet) 20 mg PO DAILY [facility] Last Admin: 12/01/20 10:22 Dose: 20 mg Documented by: Fluticasone Propionate (Fluticasone 0.05% 1 [place] Nasal.Sry) 2 spray NASAL DAILY [facility] Last Admin: 12/01/20 10:22 Dose: 2 spray Documented by: Sodium Chloride () 1,000 mls @ 75 mls/hr IV .[id number] [facility] Last Admin: 11/30/20 20:14 Dose: 75 mls/hr Documented by: Vancomycin IV Pharmacy to Dose (1 each/ Sodium Chloride) 500 mls @ 250 mls/hr IV PRN PRN; Protocol PRN Reason: Rx to Dose Vancomycin HCl 1,250 mg/ (Sodium Chloride) 275 mls @ 167 mls/hr IV Q12H [facility] Last Infusion: 12/01/20 12:04 Dose: Infused Documented by: L-Arginine/L-Glutamine/Calcium [facility] ([facility] (Unflavored) Packet) [facility] Last Admin: 12/01/20 07:24 Dose: 1 packet Documented by: Ondansetron HCl (Ondansetron 4 Mg/2 Ml Vial) 4 mg IV Q8H PRN PRN PRN Reason: NAUSEA/VOMITING Last Admin: 11/28/20 18:07 Dose: 4 mg Documented by: Oxycodone HCl (Oxycodone 5 Mg Tablet) 5 mg PO Q4H PRN PRN PRN Reason: Pain Score 4-10 Last Admin: 12/01/20 07:23 Dose: 5 mg Documented by: Senna/Docusate Sodium (Senna/Docusate Sodium 1 Tablet) 2 tablet PO BID PRN PRN PRN Reason: Constipation Sodium Chloride (0.9% Saline Lock 10 Ml Syringe) 10 - 40 ml IV UD PRN PRN Reason: SALINE FLUSH Last Admin: 11/26/20 17:50 Dose: 10 ml Documented by: Throat Lozenges (Benzocaine/Menthol 1 Lozenge) 2 lozenge MUCOUS MEM Q2H PRN PRN PRN Reason: SORE THROAT Last Admin: 11/26/20 18:33 Dose: 2 lozenge Documented by: Zolpidem Tartrate (Zolpidem Tartrate 5 Mg Tablet) 5 mg PO QHS PRN PRN PRN Reason: INSOMNIA Last Admin: 11/28/20 22:02 Dose: 5 mg Documented by: Discharge Diet: No Restrictions Discharge Activity: Return to Normal Activity, Use Walker Weight Bearing Status: No weight bearing - No weightbearing right foot. Keep extremity elevated above heart level: Right Leg - Keep right foot elevated using pillows for at least 40-50 minutes of every hour to help keep swelling down. Call your doctor if your incision/area has: Continuous Slow Oozing, Sudden Increased Bleeding, Foul Smelling Discharge Call your doctor if you observe: Fever of 101 or Higher, Shortness of breath, Chest pain, Uncontrolled pain Cleanse incision/area with: Do not get Incision Wet, Keep Dressing Clean & Dry Home Medications: Medications to take at Discharge Tiotropium [place] [Spiriva Respimat] 2 puff INHALATION DAILY 11/10/20 Acetaminophen [Tylenol Arthritis] 650 mg PO DAILY 11/25/20 Cholecalciferol (Vitamin D3) [Vitamin D3] 2,000 unit PO DAILY 11/25/20 Cranberry Fruit Extract [Cranberry] 500 mg PO DAILY 11/25/20 Famotidine 20 mg PO DAILY 11/25/20 Fluticasone 0.05% [Flonase Nasal [place]] 2 spray NASAL DAILY 11/25/20 Multivit-Min/FA/Lycopen/Lutein [Centrum Silver Men Tablet] 1 tablet PO DAILY 11/25/20 Ondansetron [Zofran Odt] 4 mg PO Q8H PRN PRN 11/25/20 Risedronate Sodium 150 mg PO QMONTH 11/25/20 Hydrocodone Bitart/Apap 5-325 [[place] 5MG-325MG] 1 - 2 tablet PO Q6H PRN PRN 3 Days #20 tab 12/01/20 Hydrocodone Bitart/Apap 5-325 [[place] 5MG-325MG] 1 - 2 tablet PO Q6H PRN PRN 3 Days #20 tab 12/01/20 Vancomycin IV 1,250 mg IV Q12H 40 Days #80 vial 12/01/20 Following Prescriptions Were Given to Patient: Hydrocodone Bitart/Apap 5-325 [[place] 5MG-325MG] 1 - 2 tablet PO Q6H PRN PRN 3 Days #20 tab PRN Reason: Pain Prescription Printed Hydrocodone Bitart/Apap 5-325 [[place] 5MG-325MG] 1 - 2 tablet PO Q6H PRN PRN 3 Days #20 tab PRN Reason: Pain Transmission Status: Received by [facility] Vancomycin IV 1,250 mg IV Q12H 40 Days #80 vial Prescription Printed Primary Care Physician: Ganga Acosta DO [Primary Care Provider] - Please follow up with your Primary Care Physician in: Within the next 2 weeks. Please Follow Up With: Erickson Painter DPM - Office number: [phone] When: Sunday December 06, 2020 at [facility], but call sooner if needed. Please Follow Up With: Supervisor [employer] Workers - Leflunomide on hold at discharge, follow-up with beef specialist in regards to resuming. When: Within the next 2 weeks Additional Instructions: Move hips and knees for 1-2 minutes of every waking hour to kindergartners helper circulation to legs. Disposition: Home Minutes spent on discharge:: 35 Patient Condition:: Good Medical Necessity - Tobacco Use Smoking Status: Never smoker Tobacco Use: Non-smoker Meaningful Use Info Meaningful Use Diagnoses (Choose all that apply): None applicable <Franco Newsome - Last Filed: 12/01/20 17:31> Discharge Date and Diagnosis - Primary Discharge Diagnosis Acute Problems: Acute right foot osteomyelitis due to MRSE with infected hardware - Secondary Discharge Diagnosis Chronic Problems: Chronic Problems (Last Updated 11/25/20 @ 16:[address] Namrata Zuñiga MD) Chronic venous insufficiency (Chronic) Peripheral neuropathy (Chronic) Osteopenia (Chronic) History of prostate cancer (Chronic) Asthma (Chronic) Obesity (BMI 30.0-34.9) (Chronic) Hyperlipidemia (Chronic) Ulcer of right foot with fat layer exposed (Chronic) Exposed orthopaedic hardware (Chronic) Delayed wound healing (Chronic) Kidney stones (Chronic) Asthma (Chronic) Rheumatoid arthritis (Chronic) Obesity (Chronic) Gastric ulcer (Chronic) DDD (degenerative disc disease), cervical (Chronic) Osteoarthritis (Chronic) BPH (benign prostatic hyperplasia) (Chronic) GERD (gastroesophageal reflux disease) (Chronic) KEZIA treated with BiPAP (Chronic) On BiPAP 10/6 Moderate persistent allergic asthma 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) Asbestos exposure (Chronic) Prostate cancer (Chronic) Hospital Course and Treatment Summary of Care Provided: This patient was seen in conjunction with NITHYA Andrea. I have independently interviewed and examined the patient and reviewed pertinent history, examination findings, laboratory and plan of management. I have reviewed the note and agree with the documented findings with the few additional points. In brief, patient is admitted for swelling and pain over right foot. 1. Acute right foot osteomyelitis due to MRSE with infected hardware: Patient had bone scan was reported as possible osteomyelitis. Patient had right foot TMT and midfoot arthrodesis in July 2020 with nonhealing wound. IV antibiotics Unasyn and vancomycin. Seen by ID. Tagged WBC scan of feet and ankles showed postoperative changes but no scintigraphic evidence of osteomyelitis. Hardware's were removed. Tissue cultures are still pending but right foot aspirate shows coagulase-negative staph and previous wound culture MRSA. Patient discharged on 6 weeks of IV vancomycin. Patient has PICC line. 2. Rheumatoid arthritis : Patient's leflunomide is on hold because of underlying infection as mentioned above patient was advised to follow with PCP/electronics mechanic apprentice to resume leflunomide but currently will hold it Follow-up with rheumatology as outpatient 3. VTE prophylaxis with enoxaparin Discharge medication reconciliation done. Discharge follow-up instructions completed. Discharge process discussed with the patient and all questions were answered to patient's satisfaction. Total time spent, exact 35 minutes on discharge meds reconciliation, examination, coordination of care with nurses and ancillary staff, review of imaging and blood test and discussion with the patient on follow-up instructions I have discussed my assessment with NITHYA Andrea and orders have been reviewed.[] Objective: Heart rate and blood pressure controlled. No fever. Bone biopsy shows MRSA and coagulase-negative staph. Physical exam General: Alert, Oriented x3, Cooperative HEENT: Atraumatic, PERRLA, EOMI, Normocephalic Oral: No Gingival or Mucosal Lesions/ Ulcerations Neck: Supple, No JVD, Negative Carotid Bruits Lungs: Air entry diminished in bilateral lung bases. No crepitation/rhonchi Cardiovascular: Regular rate, Regular Rhythm, Normal S1, Normal S2, No murmurs Abdomen: Bowel Sounds Present, Soft, Non Tender, Non-Distended : No renal angle tenderness. No suprapubic tenderness. Extremities: No edema, Capillary Refill Less than 3 Seconds Skin: Ulcer over right arch of foot. Right second toe partial amputation. Musculoskeletal: No Tenderness to Palpation of Joints or Extremities Neurological: Cranial nerves II-XII grossly intact, loss of ankle and foot gross sensory touch, position sense of toe. Psych/Mental Status: Normal Affect, Appropriate. - Physical Exam Vitals/I&O's: Vital Signs Temp Pulse Resp BP Pulse Ox 98.1 F 89 16 126/80 H 95 12/01/20 14:13 12/01/20 14:13 12/01/20 14:13 12/01/20 14:13 12/01/20 14:13 Oxygen Delivery Method Room Air Weight: 223 lb Body Mass Index (BMI) 32.0 Intake and Output for Last 24 Hours 11/29/20 11/30/20 12/01/20 23:59 23:59 23:59 Intake Total 2560.25 / 2560.25 1655.50 / 1655.50 387 / 387 Output Total 2325 / 2325 2500 / 2500 600 / 600 Balance 235.25 / 235.25 -844.50 / -844.50 -213 / -213 Microbiology Past 72 Hours 11/29/20 Unknown Aspirate - Right Foot Gram Stain - Final 11/29/20 Unknown Aspirate - Right Foot Wound Culture - Preliminary Coag Negative Staph 11/29/20 Unknown Aspirate - Right Foot Gram Stain - Final 11/29/20 Unknown Aspirate - Right Foot Wound Culture - Preliminary Coag Negative Staph 11/25/20 15:45 Blood Culture (Wb) - Right Hand Blood Culture - Final No growth in 5 days. 11/25/20 15:30 Blood Culture (Wb) - Anticubital Right Blood Culture - Final No growth in 5 days. 11/29/20 Unknown Tissue - Right Foot Gram Stain - Final 11/29/20 Unknown Tissue - Right Foot Wound Culture - Preliminary No growth-Final to follow 11/25/20 17:10 Wound - Right Foot Gram Stain - Final 11/25/20 17:10 Wound - Right Foot Wound Culture - Final Staphylococcus epidermidis 11/25/20 17:10 Wound - Right Foot Anaerobic Culture - Preliminary No growth in 48 hours. Laboratory Results 12/01/20 08:15: Random Vancomycin 13.0 Inpatient E&M: [id number] Disch Hosp
--- NOTE | 2020-12-01 12:57 | CHAPLAIN ---
Type of Pastoral Visit _x__ Initial Visit ___ Follow-up Visit ___ On-call Visit ___ General Patient Visit ___ Spiritual Assessment ___ Family Conference ___ Bereavement ___ Rapid Response ___ Code Blue ___ Other (describe below) Pastoral Care Referral From _x__ Patient ___ Family ___ Nurse ___ Physician ___ Roto Mixer Operator ___ Ornamental Plasterer Helper ___ Other (describe below) Sacrament/Intervention _x__ Active listening ___ Anointing ___ Adventist ___ Bereavement ___ Communion ___ Sara exploration ___ _x__ Life review _x__ Prayer ___ Reconciliation ___ Sacrament of Sick _x__ Supportive presence ___ Wedding ___ Other (describe below) Pastoral Comments patient admits that he has become discouraged due to set backs in his recovery but remains hopeful that he can return home; 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
[2020-12-01 13:32] VITALS: PULSE 82; RESP 20
[2020-12-01 14:13] VITALS: BP 126/80; PULSE 89; RESP 16; TEMP 36.7; O2SAT 95
--- NOTE | 2020-12-01 16:48 | PCM.PN.ID ---
Subjective: Feeling better, no fever, no n/v/d. - Physical Exam Vitals/I&O's: Vital Signs Temp Pulse Resp BP Pulse Ox 98.1 F 89 16 126/80 H 95 12/01/20 14:13 12/01/20 14:13 12/01/20 14:13 12/01/20 14:13 12/01/20 14:13 Oxygen Delivery Method Room Air Weight: 101.151 kg Body Mass Index (BMI) 32.0 Intake and Output for Last 24 Hours 11/29/20 11/30/20 12/01/20 23:59 23:59 23:59 Intake Total 2560.25 / 2560.25 1655.50 / 1655.50 387 / 387 Output Total 2325 / 2325 2500 / 2500 600 / 600 Balance 235.25 / 235.25 -844.50 / -844.50 -213 / -213 General: Alert, Cooperative, No apparent distress Lungs: Clear to auscultation, Normal air movement Cardiovascular: Regular rate, Regular Rhythm Abdomen: Soft, Non Tender, Non-Distended Skin: Ulcer/ Wound - foot wrapped Microbiology Past 72 Hours 11/29/20 Unknown Aspirate - Right Foot Gram Stain - Final 11/29/20 Unknown Aspirate - Right Foot Wound Culture - Preliminary Coag Negative Staph 11/29/20 Unknown Aspirate - Right Foot Gram Stain - Final 11/29/20 Unknown Aspirate - Right Foot Wound Culture - Preliminary Coag Negative Staph 11/25/20 15:45 Blood Culture (Wb) - Right Hand Blood Culture - Final No growth in 5 days. 11/25/20 15:30 Blood Culture (Wb) - Anticubital Right Blood Culture - Final No growth in 5 days. 11/29/20 Unknown Tissue - Right Foot Gram Stain - Final 11/29/20 Unknown Tissue - Right Foot Wound Culture - Preliminary No growth-Final to follow 11/25/20 17:10 Wound - Right Foot Gram Stain - Final 11/25/20 17:10 Wound - Right Foot Wound Culture - Final Staphylococcus epidermidis 11/25/20 17:10 Wound - Right Foot Anaerobic Culture - Preliminary No growth in 48 hours. Laboratory Results 12/01/20 08:15: Random Vancomycin 13.0 Medical Necessity - Tobacco Use Smoking Status: Never smoker Tobacco Use: Non-smoker Route of nutrition/ use of supplements: [] Nutritional Intake: [] IV Site: [] Hurtado Catheter: [] - Assessment/Plan Antibiotics: [] Assessment/Plan: [] R foot infection with hardware present - had been on po doxy for MRSE. On empiric vanc/unasyn. Now s/p OR with Dr. Painter 11/29 for hardware removal and I&D. Picc in place. Plan on 6 weeks iv vanc at discharge, stop date 01/10/21. ID followup in 2 weeks. Will follow
--- NOTE | 2020-12-02 11:50 | CASEMGMT ---
RN CM Discharge Follow Up Phone Call: CLEMENTE: 12 Strata: 3 Call Date: 12.02.20 Discharge Date: 12.01.20 Time of Call: 1148 Duration: <1 min Admitting Dx:R foot cellulitis RN AMARILIS attempted to complete follow up phone call after recent hospitalization. Left message on identified vm with return call information.
== END 2020-12-01 15:38 | disposition home health service (06) | DRG 464 ==
LOC: ED 15:15 → MS3 16:54
PROVIDERS: Hospitalist; Physician Assistant; Podiatrist; Admitting Provider Hospitalist; Emergency Provider Emergency Medicine; PCP Family Medicine; Visit Provider Internal Medicine
PROC: 0QPN04Z Removal of Internal Fixation Device from Right Metatarsal, Open Approach (ICD-10-PCS; principal; 2020-11-29 13:45)
DX: T84.69XA Infection and inflammatory reaction due to internal fixation device of other site, initial encounter (principal); M86.171 Other acute osteomyelitis, right ankle and foot; B95.7 Other staphylococcus as the cause of diseases classified elsewhere; L03.115 Cellulitis of right lower limb; L97.512 Non-pressure chronic ulcer of other part of right foot with fat layer exposed; I73.9 Peripheral vascular disease, unspecified; I87.2 Venous insufficiency (chronic) (peripheral); Y83.8 Other surgical procedures as the cause of abnormal reaction of the patient, or of later complication, without mention of misadventure at the time of the procedure; Y92.9 Unspecified place or not applicable; I25.10 Atherosclerotic heart disease of native coronary artery without angina pectoris; J44.9 Chronic obstructive pulmonary disease, unspecified; J45.40 Moderate persistent asthma, uncomplicated; G62.9 Polyneuropathy, unspecified; M85.80 Other specified disorders of bone density and structure, unspecified site; R19.7 Diarrhea, unspecified; I10 Essential (primary) hypertension; E78.5 Hyperlipidemia, unspecified; M06.9 Rheumatoid arthritis, unspecified; K21.9 Gastro-esophageal reflux disease without esophagitis; G47.33 Obstructive sleep apnea (adult) (pediatric); Z77.090 Contact with and (suspected) exposure to asbestos; E66.9 Obesity, unspecified; Z68.33 Body mass index [BMI] 33.0-33.9, adult; Z79.899 Other long term (current) drug therapy; Z85.46 Personal history of malignant neoplasm of prostate; Z96.653 Presence of artificial knee joint, bilateral
CPT/HCPCS: 36415; 36569; 73620; 73630; 73700; 76000; 76377; 78315; 78801; 80048; 80053; 80202; 82306; 83605; 85025; 85652; 86140; 87040; 87070; 87075; 87077; 87102; 87186; 87205; 87206; 87493; 87640; 88304; 88305; 88311; 93005; 94640; 97110; 97161; 97166; 97530; 97535; 97802; 99251; 99284; A9521; J7030; J7040; J7050; A4216; G0463; J0295; J2405

== ENCOUNTER → 2020-12-07 13:11 | Outpatient (CLI) | payer MEDICARE, SELFPAY ==
[2020-12-07 10:25] VITALS: BMI 32.0
[2020-12-07 14:21] LABS: Erythrocyte Sedimentation Rate 31 mm/hr (0-20)
[2020-12-07 14:24] LABS: Mean Corp Hgb Conc 31.8 g/dL (32-36); Mean Corpuscular Hgb 30.7 pg (27.0-32.0); Mean Corpuscular Volume 96.5 fL (80-94); Mean Platelet Vol. 8.8 fl (6.2-12.0); Platelet Count 313 K/mm3 (150-450); RBC Distribution Width CV 12.6 % (11.6-14.6); RBC Distribution Width SD 44.2 fl (35.1-43.9); Red Blood Count 4.56 M/mm3 (4.6-6.2); White Blood Count 5.6 K/mm3 (4.4-11.0)
[2020-12-07 14:30] LABS: ALB/GLOB Ratio 0.7 RATIO (0.9-2.4); AST(SGOT) 23 U/L (15-37); Alanine Aminotransfer ALT/SGPT 29 U/L (16-61); Albumin, Serum 3.2 g/dL (3.2-5.0); Alkaline Phosphatase 91 U/L (45-117); Anion Gap 6 (5-15); BUN 11 mg/dL (7-18); BUN/Creat Ratio 10.7 RATIO (10-20); Calcium,Total 8.9 mg/dL (8.5-10.1); Chloride 109 mmol/L (98-107); Creatinine, Serum 1.03 mg/dL (0.70-1.30); EST Glomerular Filtration Rate 76 mL/min (>60); Est Glom Filt Rate - Afr Amer 91 mL/min (>60); Globulin 4.4 g/dL (2.2-4.2); Glucose 83 mg/dL (74-106); Potassium 3.5 mmol/L (3.5-5.1); Protein, Total 7.6 g/dL (6.4-8.2); Sodium Level 141 mmol/L (136-145); Vancomycin, Trough Level 17.5 ug/mL (5.0-15.0)
== END ==
PROVIDERS: PCP Family Medicine; Visit Provider Internal Medicine Infectious Disease
DX: T84.7XXA Infection and inflammatory reaction due to other internal orthopedic prosthetic devices, implants and grafts, initial encounter (principal); M86.171 Other acute osteomyelitis, right ankle and foot; B95.7 Other staphylococcus as the cause of diseases classified elsewhere
CPT/HCPCS: 80053; 80202; 85027; 85652

== ENCOUNTER → 2020-12-20 11:06 | Outpatient (CLI) | payer MEDICARE, SELFPAY ==
[2020-12-07 10:25] VITALS: BMI 32.0
[2020-12-20 11:34] VITALS: BP 121/80; PULSE 77; RESP 18; TEMP 36.2; O2SAT 96; BMI 31.8
[2020-12-20] MEDS: Alteplase 2 MG/2 ML Vial IV (12:03)
== END ==
PROVIDERS: PCP Family Medicine; Referring Provider Internal Medicine Infectious Disease; Visit Provider Internal Medicine Infectious Disease
DX: T84.7XXA Infection and inflammatory reaction due to other internal orthopedic prosthetic devices, implants and grafts, initial encounter (principal); M86.171 Other acute osteomyelitis, right ankle and foot; M06.09 Rheumatoid arthritis without rheumatoid factor, multiple sites; Z45.2 Encounter for adjustment and management of vascular access device; Z79.899 Other long term (current) drug therapy
CPT/HCPCS: 36593; 80048; 80202; 85027; 85652; J2997; A4216

== ENCOUNTER → 2020-12-29 11:30 | Outpatient (CLI) | payer MEDICARE, SELFPAY ==
[2020-12-20 11:34] VITALS: BMI 31.8
[2020-12-29 15:22] LABS: Anion Gap 6 (5-15); BUN 9 mg/dL (7-18); Calcium,Total 9.1 mg/dL (8.5-10.1); Chloride 106 mmol/L (98-107); Creatinine, Serum 1.13 mg/dL (0.70-1.30); EST Glomerular Filtration Rate 68 mL/min (>60); Est Glom Filt Rate - Afr Amer 82 mL/min (>60); Glucose 114 mg/dL (74-106); Potassium 3.7 mmol/L (3.5-5.1); Sodium Level 140 mmol/L (136-145)
== END ==
PROVIDERS: PCP Family Medicine; Referring Provider Podiatrist; Visit Provider Podiatrist
DX: T84.7XXA Infection and inflammatory reaction due to other internal orthopedic prosthetic devices, implants and grafts, initial encounter (principal); Y83.9 Surgical procedure, unspecified as the cause of abnormal reaction of the patient, or of later complication, without mention of misadventure at the time of the procedure; Y92.9 Unspecified place or not applicable
CPT/HCPCS: 36415; 80048

== ENCOUNTER → 2020-12-31 11:43 | Outpatient (CLI) | payer MEDICARE, SELFPAY ==
[2020-12-20 11:34] VITALS: BMI 31.8
--- NOTE | 2020-12-31 11:46 | RAD_ITS ---
INDICATION: ULCER FOOT EXAMINATION/TECHNIQUE: X-RAY - RIGHT XR Foot Min 3 Views COMPARISON: 11/29/2020. FINDINGS: Status post Lisfranc joint arthrodesis with improvement in erosive changes. Normal metatarsophalangeal joint of the great toe. Normal tibial and fibular sesamoid bones. Normal interphalangeal joint of the great toe. Normal phalanges of the great toe. Normal second through fourth metatarsophalangeal joints. Partially amputation of the second digit. Cystic lucency reidentified in the fifth digit phalanges and metatarsal head. No evidence of cortical erosion or bony destruction or active osteomyelitis. The soft tissue structures are unremarkable. RAD/Foot min 3 Views IMPRESSION: Status post Lisfranc joint arthrodesis with improvement in erosive changes. No other change when compared to prior on 11/29/2020. Electronically Signed: Nii Quiroga MD at 20:50 EDT Tel , Service support ,
[2020-12-31 15:46] LABS: Hemoglobin A1c 5.1 % (3.8-5.6)
== END ==
PROVIDERS: PCP Family Medicine; Referring Provider Podiatrist; Visit Provider Podiatrist
DX: M24.674 Ankylosis, right foot (principal); L97.519 Non-pressure chronic ulcer of other part of right foot with unspecified severity
CPT/HCPCS: 36415; 73630; 83036

== ENCOUNTER 2021-01-03 08:18 | Outpatient (RCR) | payer MEDICARE, SELFPAY ==
[2020-12-07 10:25] VITALS: BMI 32.0
[2020-12-13 13:13] LABS: Erythrocyte Sedimentation Rate 23 mm/hr (0-20)
[2020-12-13 13:16] LABS: Absolute Lymphocyte Count 2.01 X10^3/uL (0.83-4.51); Absolute Neutrophil Count 2.5 X10^3/uL (2.0-7.7); Basophil# 0.08 X10^3/uL; Basophil% 1.4 % (0-1); Eosinophils% 7.1 % (0-5); Hematocrit 45.3 % (40-54); Hemoglobin 14.9 g/dL (13.0-16.5); Lymphocyte # 2.01 X10^3/ul (0.83-4.51); Lymphocyte % 35.5 % (19-41); Mean Corp Hgb Conc 32.9 g/dL (32-36); Mean Corpuscular Hgb 31.4 pg (27.0-32.0); Mean Corpuscular Volume 95.6 fL (80-94); Mean Platelet Vol. 9.1 fl (6.2-12.0); Monocyte# 0.62 X10^3/uL; NRBC Flagged by Analyzer 0 % (0-5); Neutrophil # 2.53 X10^3/uL (2.7-7.7); Neutrophil % 44.6 % (47-70); Platelet Count 295 K/mm3 (150-450); RBC Distribution Width CV 12.6 % (11.6-14.6); RBC Distribution Width SD 43.9 fl (35.1-43.9); Red Blood Count 4.74 M/mm3 (4.6-6.2); White Blood Count 5.7 K/mm3 (4.4-11.0)
[2020-12-13 13:23] LABS: ALB/GLOB Ratio 0.8 RATIO (0.9-2.4); AST(SGOT) 21 U/L (15-37); Alanine Aminotransfer ALT/SGPT 23 U/L (16-61); Albumin, Serum 3.4 g/dL (3.2-5.0); Alkaline Phosphatase 89 U/L (45-117); Anion Gap 8 (5-15); BUN 16 mg/dL (7-18); Bilirubin, Direct 0.17 mg/dL (0.00-0.30); CRP 2.93 mg/L (0.0-3.0); Calcium,Total 8.9 mg/dL (8.5-10.1); Chloride 105 mmol/L (98-107); EST Glomerular Filtration Rate 78 mL/min (>60); Est Glom Filt Rate - Afr Amer 95 mL/min (>60); Globulin 4.4 g/dL (2.2-4.2); Glucose 67 mg/dL (74-106); Potassium 3.9 mmol/L (3.5-5.1); Protein, Total 7.8 g/dL (6.4-8.2); Sodium Level 139 mmol/L (136-145)
[2020-12-13 13:50] LABS: Vancomycin, Trough Level 16.8 ug/mL (5.0-15.0)
[2020-12-20 10:26] LABS: Erythrocyte Sedimentation Rate 18 mm/hr (0-20)
[2020-12-20 10:27] LABS: Hematocrit 43.4 % (40-54); Hemoglobin 14.2 g/dL (13.0-16.5); Mean Corp Hgb Conc 32.7 g/dL (32-36); Mean Corpuscular Hgb 31.6 pg (27.0-32.0); Mean Corpuscular Volume 96.4 fL (80-94); Mean Platelet Vol. 9.1 fl (6.2-12.0); Platelet Count 223 K/mm3 (150-450); RBC Distribution Width CV 12.8 % (11.6-14.6); RBC Distribution Width SD 44.9 fl (35.1-43.9); White Blood Count 5.4 K/mm3 (4.4-11.0)
[2020-12-20 10:34] LABS: Anion Gap 7 (5-15); BUN 14 mg/dL (7-18); BUN/Creat Ratio 13.7 RATIO (10-20); Calcium,Total 8.9 mg/dL (8.5-10.1); Chloride 109 mmol/L (98-107); Creatinine, Serum 1.02 mg/dL (0.70-1.30); EST Glomerular Filtration Rate 76 mL/min (>60); Est Glom Filt Rate - Afr Amer 92 mL/min (>60); Glucose 105 mg/dL (74-106); Potassium 3.5 mmol/L (3.5-5.1); Sodium Level 140 mmol/L (136-145)
[2020-12-20 10:43] LABS: Vancomycin, Trough Level 21.6 ug/mL (5.0-15.0)
[2020-12-27 09:24] LABS: Erythrocyte Sedimentation Rate 10 mm/hr (0-20)
[2020-12-27 09:25] LABS: Hematocrit 43.2 % (40-54); Hemoglobin 14.2 g/dL (13.0-16.5); Mean Corp Hgb Conc 32.9 g/dL (32-36); Mean Corpuscular Hgb 31.3 pg (27.0-32.0); Mean Corpuscular Volume 95.4 fL (80-94); Mean Platelet Vol. 9.1 fl (6.2-12.0); Platelet Count 224 K/mm3 (150-450); RBC Distribution Width CV 12.6 % (11.6-14.6); RBC Distribution Width SD 44.2 fl (35.1-43.9); Red Blood Count 4.53 M/mm3 (4.6-6.2); White Blood Count 5.3 K/mm3 (4.4-11.0)
[2020-12-27 09:31] LABS: Anion Gap 6 (5-15); BUN 12 mg/dL (7-18); BUN/Creat Ratio 10.8 RATIO (10-20); Calcium,Total 8.6 mg/dL (8.5-10.1); Chloride 106 mmol/L (98-107); Creatinine, Serum 1.11 mg/dL (0.70-1.30); EST Glomerular Filtration Rate 69 mL/min (>60); Est Glom Filt Rate - Afr Amer 84 mL/min (>60); Glucose 144 mg/dL (74-106); Potassium 3.2 mmol/L (3.5-5.1); Sodium Level 140 mmol/L (136-145)
[2021-01-03 10:46] LABS: Erythrocyte Sedimentation Rate 15 mm/hr (0-20)
[2021-01-03 10:48] LABS: Hematocrit 43.1 % (40-54); Hemoglobin 14.1 g/dL (13.0-16.5); Mean Corp Hgb Conc 32.7 g/dL (32-36); Mean Corpuscular Hgb 31.6 pg (27.0-32.0); Mean Corpuscular Volume 96.6 fL (80-94); Mean Platelet Vol. 9.2 fl (6.2-12.0); Platelet Count 234 K/mm3 (150-450); RBC Distribution Width CV 12.7 % (11.6-14.6); RBC Distribution Width SD 45.5 fl (35.1-43.9); Red Blood Count 4.46 M/mm3 (4.6-6.2); White Blood Count 5.8 K/mm3 (4.4-11.0)
[2021-01-03 10:57] LABS: Vancomycin, Trough Level 14.9 ug/mL (5.0-15.0)
[2021-01-03 11:06] LABS: ALB/GLOB Ratio 0.9 RATIO (0.9-2.4); AST(SGOT) 26 U/L (15-37); Alanine Aminotransfer ALT/SGPT 29 U/L (16-61); Albumin, Serum 3.4 g/dL (3.2-5.0); Alkaline Phosphatase 83 U/L (45-117); Anion Gap 7 (5-15); BUN 14 mg/dL (7-18); BUN/Creat Ratio 14.2 RATIO (10-20); Calcium,Total 8.5 mg/dL (8.5-10.1); Chloride 108 mmol/L (98-107); Creatinine, Serum 0.99 mg/dL (0.70-1.30); EST Glomerular Filtration Rate 79 mL/min (>60); Est Glom Filt Rate - Afr Amer 96 mL/min (>60); Globulin 3.9 g/dL (2.2-4.2); Glucose 84 mg/dL (74-106); Potassium 3.5 mmol/L (3.5-5.1); Protein, Total 7.3 g/dL (6.4-8.2); Sodium Level 139 mmol/L (136-145)
== END 2021-01-03 18:00 | disposition home or self-care (01) ==
LOC: HHLAB 08:18
PROVIDERS: Internal Medicine Infectious Disease; PCP Family Medicine; Referring Provider Podiatrist; Visit Provider Podiatrist
DX: T84.7XXA Infection and inflammatory reaction due to other internal orthopedic prosthetic devices, implants and grafts, initial encounter (principal); M86.171 Other acute osteomyelitis, right ankle and foot; M06.09 Rheumatoid arthritis without rheumatoid factor, multiple sites; Z79.899 Other long term (current) drug therapy
CPT/HCPCS: 80048; 80053; 80202; 82248; 85025; 85027; 85652; 86140

== ENCOUNTER 2021-01-05 14:43 | Outpatient (RCR) | payer MEDICARE, SELFPAY ==
[2020-12-20 11:34] VITALS: BMI 31.8
[2021-01-05 14:59] VITALS: BP 168/91; PULSE 76; RESP 18; TEMP 37.3; BMI 33.0
--- NOTE | 2021-01-05 16:07 | PCM.WC.PN ---
History of Present Illness Date of Service: 01/07/21 Chief Complaint: Left medial foot ulcer History of Wound: This is a 71-year-old male who presented with chronic swelling and edema in his lower extremities with concurrent nonhealing surgical wound at his multilevel midfoot arthrodesis with internal fixation placement performed by Dr. Painter on 07/16/2020 at [facility]. He also had a recent hospitalization and surgical intervention with hardware removal and incision and drainage performed by Dr. Painter on 11-29-20. Prior to the surgery he had a CT scan and a bone scan. He is also under the management of infectious disease specialist and continues on IV antibiotics via PICC line. He denies fever, chill, nausea, vomiting, redness or odor. He had a sutures removed last week and has a small open wound and was referred back to the wound healing center. He has only been using a prescription for compression. He would like to go over his x-rays today and would like to confirm if he can place weight on his foot. He is not been wearing a boot or a protective shoe because he has been completely nonweightbearing. He is with his today. Progress of Wound: new ulcer Objective Data Objective Data Vital Signs: Vital Signs Temp Pulse Resp BP 99.2 F H 76 18 168/91 H 01/05/21 14:59 01/05/21 14:59 01/05/21 14:59 01/05/21 14:59 Oxygen Delivery Method Room Air Weight: 104.326 kg Body Mass Index (BMI) 33.0 Physical Exam Const alert and oriented x3 General Appearance: cooperative HEENT normocephalic Extremity Extremity Narrative: No calf tenderness Diminished pulses Muscle wasting noted No passive laxity or fluctuance with attempted manipulation of the midfoot Compartments remain soft to right lower extremity General Extremity: edema and no tenderness to palpation of joints or extremities; Negative for cyanosis Skin Skin Narrative: no purulence, no streaking, no odor, no infection. Granular base wound at recent suture removal site to central proximal recent incision line. No adjacent fluctuance or bogginess. No eschar or necrosis General Skin Exam: Negative for erythema Neuro Neuro Narrative: lack of normal epicritic sensation via light touch is consistent with neuropathy status Psych cooperative and affect normal Debridement Note Debridement Note Post-Debridement Measurements and Additional Note: Post-Debridement Measurements/Treatment WC - Nurse 1 - General Ulcer Assessment Start: 01/05/21 14:58 Freq: Status: Active Protocol: [email or web address] Activity Type Activity Date Activity User E-Sign Co-Sign Detail Recorded Client Recorded Date Recorded By Document 01/05/21 14:59 [facility] Desktop 01/05/21 15:15 [facility] 01/05/21 14:59 WC - Today's Visit Information Type of service Initial Visit Arrival Mode Ambulatory, Walker Transfer Assistance None Accompanied by Patient Identification Verified (Name & Yes ) Patient Requires Transmission-Based No Precautions Height and Weight Height 5 ft 10 in Weight 104.326 kg Weight in Pounds 230.0 lbs Weight Measurement Method Stated by Patient Body Mass Index (BMI) 33.0 BMI Classification Obese BSA - Kailyn 2.22 Vital Signs Temperature (97.8 F-99.1 F) 99.2 F H Temperature Source Temporal Pulse Rate (60-100) 76 Pulse Location Monitor Respiratory Rate (12-18) 18 Respiratory rate source Observation Oxygen Delivery Method Room Air Blood Pressure (90/60-120/80) 168/91 H Blood Pressure Mean (mm Hg) 116 Source Monitor Position Sitting Blood Pressure Location Right Arm History Since Last Visit- (Skip if this is Patient's initial visit) Left Footwear Regular Shoe Right Footwear No Footwear Pain Scale: 0-10 Numeric Is Patient Pain Free? Yes - Nurse 1 - General Ulcer Measurement Start: 01/05/21 14:58 Freq: Status: Active Protocol: Activity Type Activity Date Activity User E-Sign Co-Sign Detail Recorded Client Recorded Date Recorded By Document 01/05/21 14:59 [facility] [employer] 01/05/21 15:15 [facility] 01/05/21 14:59 Wound Center Nurse 1 #2- R LAT FOOT POST OP (11/29/20) -Combined with other wound No -Current Size (cm) - Length 0.6 -Current Size (cm) - Width 0.1 -Current Size (cm) - Depth 0.1 -Total Square Cm 0.06 -Date of Last Picture (Recall this 01/05/21 field) -Photo Taken Yes -Tunneling No -Undermining/Tunneling No -Circular Undermining No -Exudate Amt None Present -Wound Margin Flat & Intact -Granulation Amt None Present (0 %) -Slough/Fibrin Yes -Necrosis Amt Large (67-100%) -Necrotic Tissue Type Adherent Slough -Texture (Shey-wound Skin Appearance) Assessed, Scarring -Moisture (Shey-wound Skin Appearance) Assessed,Dry/ Scaly -Color (Shey-wound Skin Appearance) Assessed -Temperature (Shey-wound Skin No Abnormality Appearance) (Pt Warm) -Tenderness on Palpation (Shey-wound No Skin Appearance) -Ulcer Cleansing Rinsed/ Irrigated with Saline -Foul Odor after Cleansing No -Anesthetic Used 4% Lidocaine Solution Lower Limb Edema Present Yes Right Calf (cm) 37 Right Ankle (cm) 23.2 WC - Nurse 3 - General Ulcer D/C NN Start: 01/05/21 14:58 Freq: Status: Active Protocol: Activity Type Activity Date Activity User E-Sign Co-Sign Detail Recorded Client Recorded Date Recorded By Document 01/05/21 15:40 [facility] Desktop 01/05/21 15:41 [facility] 01/05/21 15:40 Wound Care Nurse 3 #2- R LAT FOOT POST OP (11/29/20) -Ulcer Cleansing Rinsed/ Irrigated with Saline -Primary Dressing Applied C Hydrogel ($) -Other Dressing HYDROGEL -Primary Dressing Covered/Secured with Dry Gauze, Secured with Tape Right -Tubular Bandage Single Layer -Size of Tubigrip Used Size D -Size D ($) 1 Pain Scale: 0-10 Numeric Is Patient Pain Free? Yes WC - Visit Discharge Discharge Condition Stable Ambulatory Status Walker Medication Reconcilliation completed & No provided to patient/care provider Clinical Summary of Care Provided Yes Wound debrided: medial right foot Wound Grade/Stage: Type of Debridement: Excisional debridement Anesthesia Used: 4% Lidocaine Solution Depth: in the subcutaneous layer Percentage of wound debrided: 100 Instrument Used: #15 blade Tissue Removed: fibrous, devitalized subcutaneous, biofilm, slough Severity: Fat Layer Exposed Amount of bleeding with debridement: Mild Bleeding Controlled with: Pressure Patient tolerated procedure: Patient tolerated procedure well Assessment/Plan Assessment/Plan (1) Peripheral neuropathy: CODE(S): G62.9 - Polyneuropathy, unspecified (2) Ulcer of right foot with fat layer exposed: CODE(S): L97.512 - Non-pressure chronic ulcer of other part of right foot with fat layer exposed (3) Delayed wound healing: CODE(S): T14.8XXD - Other injury of unspecified body region, subsequent encounter (4) Rheumatoid arthritis: CODE(S): M06.9 - Rheumatoid arthritis, unspecified (5) Pseudarthrosis after fusion or arthrodesis: CODE(S): M96.0 - Pseudarthrosis after fusion or arthrodesis (6) Infected hardware in right lower extremity: CODE(S): T84.7XXA - Infection and inflammatory reaction due to other internal orthopedic prosthetic devices, implants and grafts, initial encounter PLAN: I reviewed and discussed his case.? He was referred again from the foot and ankle center.? He had prior multiple level midfoot arthrodesis with internal fixation placed (Dr. Painter on 07/16/2020).? It is noted he does not demonstrate systemic illness or localized purulence or erythema.? He has had ongoing delays in healing with arthrodesis site and also the wound. He had recent exacerbation of infection with cellulitis and was admitted to the hospital in which he underwent additional work-up and surgical intervention. Dr. Painter performed a hardware removal and incision and drainage on 11-29-20. He is being treated for wound care, infection management, and arthrodesis site which has some delays in healing as well. 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 He intercuneiform arthrodesis sites were approximately 80 to 90% healed. I interpret this as a stable postoperative status. A bone scan was also ordered and performed on 11-26-20. There was increased uptake at the recent arthrodesis site however osteomyelitis was not suspected. He had recent x-rays performed within this past week and the hardware removal is noted. He does not have osseous destruction or proliferation adjacent to the ulcer site. There is radiographic evidence of osseous bridging at the arthrodesis site and is consistent with his recent CT scan. infection management: Cultures from his recent admission demonstrate MRSE growth. He is on doxycycline. He also has a PICC line in place and is on vancomycin and Zosyn. There is a stop date of 01-10-21. He is under the management of infectious disease specialist, Dr. Gomes. Labs reviewed from 01-03-21 including white blood cell count of 5.8 and ESR of 15. His A1c was also checked during his recent hospital admission and was 5.1%. His vitamin D was also last 44.0 and it is noted he continues on 2000 units of vitamin D daily. arterial: He also had lower extremity arterial studies performed in March 17, 2020 which demonstrated bilateral triphasic waveforms to the ankle levels and normal bilateral ABIs.? edema: He had venous Dopplers reflux evaluation in which demonstrated incompetent veins. To elevate and perform muscular contraction hourly to eliminate lower extremity edema. To wear Tubigrip. To reduce salt in diet. This edema is putting additional pressure on the ulcer site. Recommendations include the following:? Dressing: Hydrogel daily dressing with gauze Peripheral ulcer care: Wash with antibacterial soap and water.? Avoid soaking.? Pressure offloading: Continue partial weightbearing with Cam walker boot up to 30% for limited ambulation and transfers.? I would like him to avoid CAM Walker strap placement over the ulcer site intention from other daily walking. Aperture pad applied around ulcer to relieve additional pressure and tension.? To avoid sleeping or laying directly on the wound.? It is noted had recent suture removal. Nutrition: To continue nutritional supplementation to optimize healing.? Debridement: Subcutaneous excisional with a 15 blade scalpel was performed as noted in the clinical panel.? Host factors: His delayed healing history is noted. It is also noted that he has neuropathy and this complicates his case. He is not a diabetic. He also has rheumatoid arthritis and his medications have been adjusted and coordinated with his director of research to optimize healing. I answered all of his questions.? To return to the wound healing center in 1 week. Note: [employer] speech recognition real estate leasing manager software was used to create portions of this document. Sound-alike and misspelled words, as well as other real estate leasing manager errors may be contained in the documentation.? The medical decision making level is low.? There is noted low risk of morbidity after considering this treatment plan and diagnostic data.? 21 minutes was spent on this encounter. This included face to face and non face to face care including preparing for the visit, reviewing the history, performing the exam, counseling and providing education to the patient, family, or caregiver, ordering medications/test/ procedures if indicated as documented, communicating with other healthcare providers, documenting information in the medical record, interpreting / sharing this information when indicated as documented, and care coordination.
== END 2021-01-10 23:59 ==
LOC: WC 14:43
PROVIDERS: PCP Family Medicine; Visit Provider Podiatrist
DX: L97.512 Non-pressure chronic ulcer of other part of right foot with fat layer exposed (principal); M96.0 Pseudarthrosis after fusion or arthrodesis; T84.7XXA Infection and inflammatory reaction due to other internal orthopedic prosthetic devices, implants and grafts, initial encounter; M06.9 Rheumatoid arthritis, unspecified; G62.9 Polyneuropathy, unspecified; Z79.899 Other long term (current) drug therapy
CPT/HCPCS: 11042; 99213; G0463

== ENCOUNTER 2021-01-26 09:30 | Outpatient (RCR) | payer MEDICARE, SELFPAY ==
[2021-01-11 00:45] VITALS: BP 168/91; PULSE 76; RESP 18; TEMP 37.3
[2021-01-19 10:44] VITALS: BP 117/68; PULSE 77; RESP 18; TEMP 37; BMI 33.0
--- NOTE | 2021-01-19 12:48 | PCM.WC.PN ---
History of Present Illness Date of Service: 01/19/21 Chief Complaint: Left medial foot ulcer History of Wound: This is a 71-year-old male who presented with chronic swelling and edema in his lower extremities with concurrent nonhealing surgical wound at his multilevel midfoot arthrodesis with internal fixation placement performed by Dr. Painter on 07/16/2020 at [facility]. He also had a recent hospitalization and surgical intervention with hardware removal and incision and drainage performed by Dr. Painter on 11-29-20. Prior to the surgery he had a CT scan and a bone scan. He is also under the management of infectious disease specialist. He denies fever, chill, nausea, vomiting, redness or odor. He had a sutures removed a couple of weeks ago, and has a small open wound and was referred back to the wound healing center. He has only been using a prescription for compression. He reports some mild yellow clear drainage on the dressing and thinks it might be healed today. He is with his today. Progress of Wound: Stable Objective Data Objective Data Vital Signs: Vital Signs Temp Pulse Resp BP 98.6 F 77 18 117/68 01/19/21 10:44 01/19/21 10:44 01/19/21 10:44 01/19/21 10:44 Weight: 104.326 kg Body Mass Index (BMI) 33.0 Physical Exam Const alert and oriented x3 General Appearance: cooperative HEENT normocephalic Extremity Extremity Narrative: No calf tenderness Diminished pulses Muscle wasting noted No pain on palpation to midfoot arthrodesis site now with hardware removal No passive laxity on manipulation of the midfoot Compartments remain soft to palpate and there is no bogginess or fluctuance. General Extremity: edema and no tenderness to palpation of joints or extremities; Negative for cyanosis Skin Skin Narrative: no purulence, no streaking, no odor, no infection. The ulcer base and margins all appear granular and there is no probing to bone or joint and the depth of the ulcer is reduced. His adjacent skin is atrophic and hairless. The rest of the cicatrix is healed General Skin Exam: Negative for erythema Neuro Neuro Narrative: lack of normal epicritic sensation via light touch is consistent with neuropathy status Psych cooperative and affect normal Debridement Note Debridement Note Post-Debridement Measurements and Additional Note: Post-Debridement Measurements/Treatment WC - Nurse 1 - General Ulcer Assessment Start: 01/19/21 10:39 Freq: Status: Active Protocol: VAIBHAV Activity Type Activity Date Activity User E-Sign Co-Sign Detail Recorded Client Recorded Date Recorded By Document 01/19/21 10:44 DL Desktop 01/19/21 10:50 DL 01/19/21 10:44 - Today's Visit Information Type of service Follow-up Visit (Physician/GRAD[employer] 1 [employer]RU 5 TE[employer]ER ) Arrival Mode Ambulatory, Walker Transfer Assistance None Patient Identification Verified (Name & Yes ) Patient Requires Transmission-Based No Precautions Height and Weight Body Mass Index (BMI) 33.0 BMI Classification Obese Vital Signs Temperature (97.8 F-99.1 F) 98.6 F Temperature Source Temporal Pulse Rate (60-100) 77 Pulse Location Monitor Respiratory Rate (12-18) 18 Respiratory rate source Observation Blood Pressure (90/60-120/80) 117/68 Blood Pressure Mean (mm Hg) 84 Source Monitor History Since Last Visit- (Skip if this is Patient's initial visit) Have you changed medications since your No last visit? Any new allergies or adverse reactions No Had a fall/change in ADL's that may No increase risk of falls Signs or symptoms of abuse and/or No neglect since last visit Have you been in the hospital since your No last visit? Has dressing in place as prescribed Yes Has compression in place as prescribed Yes Has offloadiing in place as prescribed Yes Experienced any changes in pain level or No management Right Footwear No Footwear Pain Scale: 0-10 Numeric Is Patient Pain Free? Yes - Nurse 1 - General Ulcer Measurement Start: 01/19/21 10:39 Freq: Status: Active Protocol: Activity Type Activity Date Activity User E-Sign Co-Sign Detail Recorded Client Recorded Date Recorded By Document 01/19/21 10:44 DL Desktop 01/19/21 10:50 DL 01/19/21 10:44 Wound Center Nurse 1 #1 Right medial dorsal foot -Current Size (cm) - Length 0.2 -Current Size (cm) - Width 0.5 -Current Size (cm) - Depth 0.1 -Total Square Cm 0.10 -Photo Taken No -Exudate Amt None Present -Wound Margin Distinct, Outline Attached -Granulation Amt None Present (0 %) -Necrosis Amt Small (1-33%) -Necrotic Tissue Type Adherent Slough -Structure Exposed N/A -Texture (Shey-wound Skin Appearance) Scarring -Moisture (Shey-wound Skin Appearance) No Abnormality -Color (Shey-wound Skin Appearance) Assessed -Temperature (Shey-wound Skin No Abnormality Appearance) (Pt Warm) -Tenderness on Palpation (Shey-wound No Skin Appearance) -Ulcer Cleansing Rinsed/ Irrigated with Saline -Foul Odor after Cleansing No -Anesthetic Used 4% Lidocaine Solution Right Calf (cm) 35 Right Ankle (cm) 21.5 WC - Nurse 2 - General Ulcer CM Notes Start: 01/19/21 10:39 Freq: Status: Active Protocol: Activity Type Activity Date Activity User E-Sign Co-Sign Detail Recorded Client Recorded Date Recorded By Document 01/19/21 11:01 PAUL [id number] 01/19/21 11:06 PAUL 01/19/21 11:01 Wound Center Nurse 2 #1 Right medial dorsal foot -Time 11:03 -Correct Patient Yes -Correct Side, Site, Position Yes -Correct Procedure Yes -Procedure Performed Yes -Type of Procedure Debridement -Clinical Debridement Subcutaneous -Tissue Removed Subcutaneous -Post Debridement (cm) - Length 0.4 -Post Debridement (cm) - Width 0.2 -Post Debridement (cm) - Depth 0.2 -Total Square (Post) (cm) 0.08 -Area of Debridement (cm) - Length 0.4 -Area of Debridement (cm) - Width 0.2 -Total Square (Area) (cm) 0.08 -Tunneling No -Undermining/Tunneling No -Circular Undermining No -Wound/Ulcer Outcome Not Healed -Ulcer Cleansing Rinsed/ Irrigated with Saline -Foul Odor after Cleansing No -Bioengineered Tissue No -Bleeding Controlled with Pressure -Offloading Yes -Type of Offloading Knee Walker -Treatment Response Procedure Tolerated Well -Debridement - Subq, 1st 20sq cm Yes Pain Scale: 0-10 Numeric Is Patient Pain Free? Yes Wound debrided: medial foot Wound Grade/Stage: Type of Debridement: Excisional debridement Anesthesia Used: 4% Lidocaine Solution Depth: in the subcutaneous layer Percentage of wound debrided: 100 Instrument Used: #15 blade Tissue Removed: fibrous, devitalized subcutaneous, biofilm, slough Severity: Fat Layer Exposed Amount of bleeding with debridement: Mild Bleeding Controlled with: Pressure Patient tolerated procedure: Patient tolerated procedure well Assessment/Plan Assessment/Plan (1) Ulcer of right foot with fat layer exposed: CODE(S): L97.512 - Non-pressure chronic ulcer of other part of right foot with fat layer exposed (2) Pseudarthrosis after fusion or arthrodesis: CODE(S): M96.0 - Pseudarthrosis after fusion or arthrodesis (3) Chronic venous insufficiency: CODE(S): I87.2 - Venous insufficiency (chronic) (peripheral) (4) Peripheral neuropathy: CODE(S): G62.9 - Polyneuropathy, unspecified (5) Rheumatoid arthritis: CODE(S): M06.9 - Rheumatoid arthritis, unspecified (6) Delayed wound healing: CODE(S): T14.8XXD - Other injury of unspecified body region, subsequent encounter (7) Malnutrition: CODE(S): E46 - Unspecified protein-calorie malnutrition PLAN: I reviewed and discussed his case. He was referred again from the foot and ankle center. He had prior multiple level midfoot arthrodesis with internal fixation placed (Dr. Painter on 07/16/2020). It is noted he does not demonstrate systemic illness or localized purulence or erythema. He has had ongoing delays in healing with arthrodesis site and also the wound. He had recent exacerbation of infection with cellulitis and was admitted to the hospital in which he underwent additional work-up and surgical intervention. Dr. Painter performed a hardware removal and incision and drainage on 11-29-20. He is being treated for wound care, infection management, and arthrodesis site which has some delays in healing as well. 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 He intercuneiform arthrodesis sites were approximately 80 to 90% healed. I interpret this as a stable postoperative status. A bone scan was also ordered and performed on 11-26-20. There was increased uptake at the recent arthrodesis site however osteomyelitis was not suspected. He had recent x-rays performed recenlty and the hardware removal is noted. He does not have osseous destruction or proliferation adjacent to the ulcer site. There is radiographic evidence of osseous bridging at the arthrodesis site and is consistent with his recent CT scan. infection management: Cultures from his recent admission demonstrate MRSE growth. He is on doxycycline. He also has a PICC line in place and is on vancomycin and Zosyn. There is a stop date of 01-10-21. He is under the management of infectious disease specialist, Dr. Gomes. Labs reviewed from 01-03-21 including white blood cell count of 5.8 and ESR of 15. His A1c was also checked during his recent hospital admission and was 5.1%. His vitamin D was also last 44.0 and it is noted he continues on 2000 units of vitamin D daily. arterial: He also had lower extremity arterial studies performed in March 17, 2020 which demonstrated bilateral triphasic waveforms to the ankle levels and normal bilateral ABIs. edema: He had venous Dopplers reflux evaluation in which demonstrated incompetent veins. To elevate and perform muscular contraction hourly to eliminate lower extremity edema. To wear Tubigrip. To reduce salt in diet. This edema is putting additional pressure on the ulcer site. Recommendations include the following: Dressing: Hydrogel daily dressing with gauze Peripheral ulcer care: Wash with antibacterial soap and water. Avoid soaking. Pressure offloading: Continue partial weightbearing with Cam walker boot up to 50% for limited ambulation and transfers. I would like him to avoid CAM Walker strap placement over the ulcer site intention from other daily walking. Aperture pad applied around ulcer to relieve additional pressure and tension. To avoid sleeping or laying directly on the wound. It is noted had recent suture removal. Nutrition: To continue nutritional supplementation to optimize healing. He is able to tolerate taking 1 Vince packet daily; to continue. Debridement: Subcutaneous excisional with a 15 blade scalpel was performed as noted in the clinical panel. Host factors: His delayed healing history is noted. It is also noted that he has neuropathy and this complicates his case. He is not a diabetic. He also has rheumatoid arthritis and his medications have been adjusted and coordinated with his linux server administrator to optimize healing. I answered all of his questions. To return to the wound healing center in 1 week. Note: [employer] speech recognition junior linux administrator software was used to create portions of this document. Sound-alike and misspelled words, as well as other junior linux administrator errors may be contained in the documentation. The medical decision making level is low. There is noted low risk of morbidity after considering this treatment plan and diagnostic data.
[2021-01-26 09:52] VITALS: BP 156/63; PULSE 83; RESP 18; TEMP 36.9; BMI 33.0
--- NOTE | 2021-01-26 11:07 | PCM.WC.PN ---
History of Present Illness Date of Service: 01/26/21 Chief Complaint: Left medial foot ulcer History of Wound: This is a 71-year-old male who presented with chronic swelling and edema in his lower extremities with concurrent nonhealing surgical wound at his multilevel mid foot arthrodesis with internal fixation placement performed by Dr. Painter on 07/16/2020 at [facility]. He also had a recent hospitalization and surgical intervention with hardware removal and incision and drainage performed by Dr. Painter on 11-29-20. Prior to the surgery he had a CT scan and a bone scan. He is also under the management of infectious disease specialist. He denies fever, chill, nausea, vomiting, redness or odor. He denies drainage and thinks this site is healed. He is with his today. Placed 50% weight on his foot this past week and did well. He relates his forefoot is intermittently painful after wearing the boot whether is walking or not for over an hour. Progress of Wound: Healed Objective Data Objective Data Vital Signs: Vital Signs Temp Pulse Resp BP 98.5 F 83 18 156/63 H 01/26/21 09:52 01/26/21 09:52 01/26/21 09:52 01/26/21 09:52 Weight: 104.326 kg Body Mass Index (BMI) 33.0 Physical Exam Const alert and oriented x3 General Appearance: cooperative HEENT normocephalic Extremity Extremity Narrative: No calf tenderness Diminished pulses Muscle wasting noted No pain on palpation to midfoot arthrodesis site now with hardware removal No passive laxity on manipulation of the midfoot Compartments remain soft to palpate and there is no bogginess or fluctuance. General Extremity: edema and no tenderness to palpation of joints or extremities; Negative for cyanosis Skin Skin Narrative: no purulence, no streaking, no odor, no infection. The ulcer is healed and there is full epithelialization. There is no adjacent bogginess, fluctuance, blister or compromise General Skin Exam: Negative for erythema Neuro Neuro Narrative: lack of normal epicritic sensation via light touch is consistent with neuropathy status Psych cooperative and affect normal Assessment/Plan Assessment/Plan (1) Ulcer of right foot with fat layer exposed: CODE(S): L97.512 - Non-pressure chronic ulcer of other part of right foot with fat layer exposed (2) Pseudarthrosis after fusion or arthrodesis: CODE(S): M96.0 - Pseudarthrosis after fusion or arthrodesis (3) Chronic venous insufficiency: CODE(S): I87.2 - Venous insufficiency (chronic) (peripheral) (4) Peripheral neuropathy: CODE(S): G62.9 - Polyneuropathy, unspecified (5) Rheumatoid arthritis: CODE(S): M06.9 - Rheumatoid arthritis, unspecified (6) Malnutrition: CODE(S): E46 - Unspecified protein-calorie malnutrition PLAN: I reviewed and discussed his case. Debridement was not performed today because the ulcer site has healed. He had prior multiple level midfoot arthrodesis with internal fixation placed (Dr. Painter on 07/16/2020). It is noted he does not demonstrate systemic illness or localized purulence or erythema. He has had ongoing delays in healing with arthrodesis site and also the wound. He had recent exacerbation of infection with cellulitis and was admitted to the hospital in which he underwent additional work-up and surgical intervention. Dr. Painter performed a hardware removal and incision and drainage on 11-29-20. He is being treated for wound care, infection management, and arthrodesis site which has some delays in healing as well. 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 He intercuneiform arthrodesis sites were approximately 80 to 90% healed. I interpret this as a stable postoperative status. A bone scan was also ordered and performed on 11-26-20. There was increased uptake at the recent arthrodesis site however osteomyelitis was not suspected. He had recent x-rays performed recenlty and the hardware removal is noted. He does not have osseous destruction or proliferation adjacent to the ulcer site. There is radiographic evidence of osseous bridging at the arthrodesis site and is consistent with his recent CT scan. infection management: Cultures from his recent admission demonstrate MRSE growth. He is on doxycycline. He also has a PICC line in place and is on vancomycin and Zosyn. There is a stop date of 01-10-21. He is under the management of infectious disease specialist, Dr. Gomes. Labs reviewed from 01-03-21 including white blood cell count of 5.8 and ESR of 15. His A1c was also checked during his recent hospital admission and was 5.1%. His vitamin D was also last 44.0 and it is noted he continues on 2000 units of vitamin D daily. arterial: He also had lower extremity arterial studies performed in March 17, 2020 which demonstrated bilateral triphasic waveforms to the ankle levels and normal bilateral ABIs. edema: He had venous Dopplers reflux evaluation in which demonstrated incompetent veins. To elevate and perform muscular contraction hourly to eliminate lower extremity edema. To wear Tubigrip. To reduce salt in diet. This edema is putting additional pressure on the ulcer site. Recommendations include the following: Dressing: Discontinue at this time because the ulcer is healed Peripheral ulcer care: Wash with antibacterial soap and water. Avoid soaking. Pressure offloading: Continue partial weightbearing with Cam walker boot up to 75% now for limited ambulation and transfers. I would like him to avoid CAM Walker strap placement over the ulcer site intention from other daily walking. Aperture pad applied around ulcer to relieve additional pressure and tension (continue). To avoid sleeping or laying directly on the wound. Nutrition: To continue nutritional supplementation to optimize healing. He is able to tolerate taking 1 Vince packet daily; to continue until he completes his supply. Host factors: His delayed healing history is noted. It is also noted that he has neuropathy and this complicates his case. He is not a diabetic. He also has rheumatoid arthritis and his medications have been adjusted and coordinated with his medical superintendent to optimize healing. Pain: Intermittent now with recent walking progression. He was reassured there are no signs of infection or evidence of Charcot or laxity. He was advised to perform desensitization exercises to the forefoot and to resume active range of motion exercises of the toes and ankle daily. To avoid tight strap placement by padding this area being mindful of this. I answered all of his questions. He is discharged from the wound healing center at this time. He was advised to follow-up at the foot and ankle Center within the next 1 [address] Painter who will continue to follow him from a postoperative standpoint and repeat x-rays will be obtained. Note: [email or web address] speech recognition project development manager software was used to create portions of this document. Sound-alike and misspelled words, as well as other project development manager errors may be contained in the documentation. The medical decision making level is low. There is noted low risk of morbidity after considering this treatment plan and diagnostic data. The medical decision making level is low. There is noted low risk of morbidity after considering this treatment plan and diagnostic data. The problems addressed require a low medical decision making level which includes two or more minor problems, a stable chronic illness, or an acute uncomplicated illness or injury.
== END 2021-01-26 11:06 | disposition home or self-care (01) ==
LOC: WC 09:30
PROVIDERS: PCP Family Medicine; Visit Provider Podiatrist
DX: L97.512 Non-pressure chronic ulcer of other part of right foot with fat layer exposed (principal); T84.7XXA Infection and inflammatory reaction due to other internal orthopedic prosthetic devices, implants and grafts, initial encounter; M96.0 Pseudarthrosis after fusion or arthrodesis; I87.2 Venous insufficiency (chronic) (peripheral); M06.9 Rheumatoid arthritis, unspecified; G62.9 Polyneuropathy, unspecified; E66.9 Obesity, unspecified; Z68.33 Body mass index [BMI] 33.0-33.9, adult; Z79.899 Other long term (current) drug therapy
CPT/HCPCS: 11042; 99213; G0463

== ENCOUNTER → 2021-05-09 10:48 | Outpatient (CLI) | payer MEDICARE, SELFPAY ==
[2021-05-09 12:16] LABS: Absolute Lymphocyte Count 1.98 X10^3/uL (0.83-4.51); Absolute Neutrophil Count 2.8 X10^3/uL (2.0-7.7); Basophil# 0.06 X10^3/uL; Basophil% 1.1 % (0-1); Eosinophil# 0.14 X10^3/uL; Eosinophils% 2.5 % (0-5); Hematocrit 46.8 % (40-54); Hemoglobin 15.4 g/dL (13.0-16.5); Lymphocyte # 1.98 X10^3/ul (0.83-4.51); Lymphocyte % 34.8 % (19-41); Mean Corp Hgb Conc 32.9 g/dL (32-36); Mean Corpuscular Volume 97.3 fL (80-94); Mean Platelet Vol. 8.5 fl (6.2-12.0); Monocyte# 0.65 X10^3/uL; Monocyte% 11.4 % (0-10); NRBC Flagged by Analyzer 0 % (0-5); Neutrophil # 2.83 X10^3/uL (2.7-7.7); Neutrophil % 49.7 % (47-70); Platelet Count 263 K/mm3 (150-450); RBC Distribution Width SD 46.7 fl (35.1-43.9); Red Blood Count 4.81 M/mm3 (4.6-6.2); White Blood Count 5.7 K/mm3 (4.4-11.0)
[2021-05-09 12:56] LABS: AST(SGOT) 21 U/L (15-37); Alanine Aminotransfer ALT/SGPT 26 U/L (16-61); Albumin, Serum 3.5 g/dL (3.2-5.0); Alkaline Phosphatase 86 U/L (45-117); Bilirubin, Direct 0.17 mg/dL (0.00-0.30); Globulin 4.5 g/dL (2.2-4.2)
== END ==
PROVIDERS: PCP Family Medicine; Referring Provider Internal Medicine Rheumatology; Visit Provider Internal Medicine Rheumatology
DX: M06.09 Rheumatoid arthritis without rheumatoid factor, multiple sites (principal); Z79.899 Other long term (current) drug therapy
CPT/HCPCS: 36415; 80076; 85025

== ENCOUNTER → 2021-06-02 13:40 | Outpatient (CLI) | payer MEDICARE, SELFPAY ==
[2021-06-02 15:16] LABS: T4 Free Direct 0.83 ng/dL (0.76-1.46); Thyroid Stim Hormone (TSH) 1.31 uIU/mL (0.358-3.74)
== END ==
PROVIDERS: PCP Family Medicine; Referring Provider Internal Medicine Critical Care Medicine; Visit Provider Internal Medicine Critical Care Medicine
DX: E78.5 Hyperlipidemia, unspecified (principal)
CPT/HCPCS: 36415; 84439; 84443

== ENCOUNTER → 2021-06-07 | Outpatient (CLI) | payer MEDICARE, SELFPAY | END | disposition home or self-care (01) | PROVIDERS: PCP Family Medicine; Referring Provider Podiatrist; Visit Provider Podiatrist | DX: L97.519 Non-pressure chronic ulcer of other part of right foot with unspecified severity (principal) | CPT/HCPCS: 87070; 87075; 87077; 87186; 87205 ==

== ENCOUNTER → 2021-06-09 09:23 | Outpatient (CLI) | payer MEDICARE, SELFPAY ==
--- NOTE | 2021-06-09 09:29 | ECHOD_ITS ---
Reason For Study: DYSPNEA/SOB Procedure This was a 2D Doppler, Color Flow transthoracic echocardiogram. The study was technically difficult. Due to arrhythmia. Exam performed in department. Left Ventricle Based upon the 2D echocardiographic images obtained there appears to be grossly normal left ventricular size, wall motion, and systolic function. The estimated ejection fraction is 55 %. Unable to assess diastolic dysfunction. Right Ventricle Normal RV size. Normal systolic function. Atria The left atrium is mildly enlarged. Normal right atrium. No doppler evidence for ASD. Mitral Valve There is no mitral annular calcification. Normal mitral valve. Mild (1+) mitral valve insufficiency. Tricuspid Valve Normal tricuspid valve. Trivial tricuspid valve insufficiency. Unable to estimate RV systolic pressure/pulmonary artery pressure due to technically difficult study. Aortic Valve Trisinus/trileaflet aortic valve. Normal aortic valve. Pulmonic Valve The pulmonic valve is not well visualized. Great Vessels Normal sized aortic root. Pericardium/Pleural No pericardial effusion. MMode/2D Measurements & Calculations LVIDd: 5.2 cm IVSd: 0.90 cm Ao root diam: 3.1 cm LVIDs: 2.5 cm LVPWd: 1.0 cm RVDd: 3.0 cm FS: 51.6 % LAV(MOD-bp): 92.2 ml LA A4 area: 26.2 cm2 LA dimension(2D): 4.6 cm LAV(MOD-bp) Indexed: 41.5 ml/m2 LAV(MOD-sp2): 82.7 ml LAV(MOD-sp4): 93.3 ml RA A4 area: 14.5 cm2 Time Measurements MV dec time: 0.26 sec Doppler Measurements & Calculations MV E max shoshana: 50.1 cm/sec Ao V2 max: 144.5 cm/sec LV V1 max: 116.8 cm/sec MV A max shoshana: 79.9 cm/sec Ao max P.4 mmHg LV V1 max P.5 mmHg MV E/A: 0.63 PA V2 max: 83.2 cm/sec ECHO/Echo Complete Interpretation Summary The study was technically difficult. Based upon the 2D echocardiographic images obtained there appears to be grossly normal left ventricular size, wall motion, and systolic function. The estimated ejection fraction is 55 %. The left atrium is mildly enlarged. Mild (1+) mitral valve insufficiency. Trivial tricuspid valve insufficiency. Unable to estimate RV systolic pressure/pulmonary artery pressure due to techni baltazar difficult study. Unable to assess diastolic dysfunction. Ordering Physician: Miky Fonseca Referring Physician: Ganga Acosta Performed By: Samantha Scott, GILMAR, RVT
--- NOTE | 2021-06-09 15:28 | PFTCOMP ---
COMPLETE PULMONARY FUNCTION TEST INTERPRETATION Brief HPI: Patient is a 71 year old male, currently under the care of myself, who presents to [facility] for complete pulmonary function tests secondary to diagnosis of asthma. Respiratory therapist reports good effort and reproducible results. Interpretation: Forced expiration spirometry shows a mild large airways obstructive ventilatory defect with an FEV1 of 86% predicted. There is no significant bronchodilator response by strict ATS criteria. Spirograms are of good quality and plateau slowly, indicating slowly emptying areas of the lungs. The respiratory flow volume loop shows decreased expiratory flow rates at all lung volumes consistent with airway obstruction. Lung volumes by body plethysmography show a normal total lung capacity at 6.82 L, 105% predicted. All other lung volumes are within normal limits. Diffusion capacity by carbon monoxide is normal at 90% predicted. The airway resistance is normal. Compared to previous pulmonary function tests from 11/08/2018, there is been a significant improvement in lung volumes. Impression: Irreversible mild large airways obstructive ventilatory defect with some improvement compared to previous testing.
== END ==
PROVIDERS: PCP Family Medicine; Referring Provider Internal Medicine Critical Care Medicine; Visit Provider Internal Medicine Critical Care Medicine
DX: J45.909 Unspecified asthma, uncomplicated (principal); G47.33 Obstructive sleep apnea (adult) (pediatric)
CPT/HCPCS: 93306; 94060; 94726; 94729

== ENCOUNTER → 2021-07-20 15:26 | Outpatient (CLI) | payer MEDICARE, SELFPAY ==
--- NOTE | 2021-07-20 15:35 | RAD_ITS ---
STUDY: X-RAY - CERVICAL SPINE REASON FOR EXAM: Male, 71 years old. Technologist Notes neck pain, right sided at base of skull as well as headaches x 6 months PAIN TECHNIQUE: XR Spine Cervical 6 or More Views COMPARISON: None FINDINGS: Normal anterior atlantoaxial articulation. The odontoid process is obscured by the overlying hard palate on the open mouth view. Therefore, it is not fully evaluated by plain film. There is straightening of the normal cervical lordosis. There is multi-level endplate spondylosis. There is multi-level degenerative disc disease with multilevel disc space narrowing. There is multi-level osseous foraminal stenosis. The soft tissue structures are unremarkable. RAD/Cerv Spine Obl/Flex/Ext Comp IMPRESSION: There are degenerative changes as noted above. The odontoid process is obscured by the overlying hard palate on the open mouth view. Therefore, it is not fully evaluated by plain film. Electronically Signed: Jason Muir MD at 16:03 EST , Service support ,
== END ==
PROVIDERS: PCP Family Medicine; Referring Provider Anesthesiology Pain Medicine; Visit Provider Anesthesiology Pain Medicine
DX: M50.30 Other cervical disc degeneration, unspecified cervical region (principal)
CPT/HCPCS: 72052

== ENCOUNTER 2021-08-04 13:43 | Emergency (ER) | payer MEDICARE, SELFPAY ==
[2021-08-04 13:43] VITALS: BP 150/85; PULSE 84; RESP 18; TEMP 36.4; O2SAT 94; BMI 34.0
--- NOTE | 2021-08-04 13:59 | EDS_ITS ---
HPI History of Present Illness Chief Complaint: Wound Informant: patient Onset/Context/Timing Onset: Weeks (Worse over the past 24 hours) Narrative Narrative: Toe wound. He has neuropathy and Dr. Painter has been treating him for a third toe wound. He was on a course of antibiotics earlier in the month. states that over the last 24 hours his toe has doubled in side and become erythematous. There is is foul-smelling drainage. They called Dr. Painter who asked patient to come to the emergency room for evaluation. [facility] Medical History Asbestos exposure Asthma BPH (benign prostatic hyperplasia) DDD (degenerative disc disease), cervical Gastric ulcer GERD (gastroesophageal reflux disease) Kidney stones Moderate persistent allergic asthma without complication Neuropathy Obesity KEZIA treated with BiPAP Osteoarthritis Prostate cancer Rheumatoid arthritis Home Medications acetaminophen 650 mg PO DAILY 11/25/20 [History Last Taken 11/24/20] cholecalciferol (vitamin D3) 2,000 unit PO DAILY 11/25/20 [History Last Taken 11/24/20] cranberry extract 500 mg PO DAILY 11/25/20 [History Last Taken 11/24/20] famotidine 20 mg PO DAILY 11/25/20 [History Last Taken 11/24/20] fluticasone propionate 2 spray NASAL DAILY 11/25/20 [History Last Taken 11/24/20] fhhdfbzr-rpw-FB-lycopen-lutein 1 tablet PO DAILY 11/25/20 [History Last Taken 11/24/20] ondansetron 4 mg PO Q8H PRN PRN 11/25/20 [History Last Taken 11/25/20] risedronate 150 mg PO QMONTH 11/25/20 [History Last Taken 11/11/20] budesonide-formoterol HFA 160 mcg-4.5 mcg/actuation aerosol inhaler 2 inh INHALATION BID #3 ea 12/07/20 [Rx Last Taken Unknown] cetirizine 10 mg capsule 10 mg PO HS #30 cap 12/07/20 [Rx Last Taken Unknown] tiotropium bromide 1.25 mcg/actuation mist for inhalation 2 inh INHALATION DAILY #3 ea 12/07/20 [Rx Last Taken Unknown] hydroxychloroquine [Plaquenil] 200 mg PO DAILY 01/05/21 [History Last Taken Unknown] vancomycin mg IV Q12H 01/05/21 [History Last Taken Unknown] albuterol sulfate 90 mcg/actuation aerosol inhaler 2 puff INHALATION Q6H PRN #8.5 g 06/02/21 [Rx Last Taken Unknown] montelukast 10 mg tablet 10 mg PO QPM #90 tab 06/02/21 [Rx Last Taken Unknown] amoxicillin-pot clavulanate [Augmentin] 1 tab PO BID #14 tab 08/04/21 [Rx Last Taken Unknown] clindamycin HCl [Cleocin HCl] 300 mg PO BID 7 Days #14 cap 08/04/21 [Rx Last Taken Unknown] Allergy/AdvReac Type Severity Reaction Status Date / Time gluten Allergy Food Verified 08/04/21 13:45 Allergy peanut Allergy Food Verified 08/04/21 13:45 Allergy yeast, dried [yeast] Allergy Food Verified 08/04/21 13:45 Allergy environmental Allergy PT UNSURE Uncoded 08/04/21 13:45 OF REACTION Family History Mother Heart disease CHF atrial fib Sister Hypertension Surgical History H/O prostatectomy History of carpal tunnel release History of inguinal hernia repair History of left heart catheterization (07/23/18) History of rhinoplasty History of tonsillectomy History of total knee arthroplasty Social History Smoking Status: Never smoker ROS ROS ED Constitutional Constitutional ED: Denies chills or fever(s) Eyes Eyes: Denies change in vision ENT ENT ED: Denies sore throat Cardiovascular Cardiovascular: Denies chest pain Respiratory/Chest Respiratory/Chest: Denies cough or dyspnea Gastrointestinal Gastrointestinal: Denies abdominal pain, diarrhea, nausea or vomiting Genitourinary Genitourinary ED: Denies dysuria Musculoskeletal Musculoskeletal: Reports other; Denies back pain Integumentary Reports other Details: Wound right third toe ; Denies rash Neurologic Neurologic: Denies headache(s) or weakness Allergic/Immunologic Allergic/Immunologic ED: Denies urticaria EXAM Physical Exam Const Vital Signs: 08/04/21 13:43 Temperature 97.6 F L Temperature Source Temporal Pulse Rate 84 Respiratory Rate 18 Blood Pressure 150/85 H Blood Pressure Mean 106 Pulse Ox 94 Oxygen Delivery Method Room Air Positive well nourished and well developed General Appearance ED: well developed HEENT Reports moist mucous membranes Eyes PERRL and EOMs intact bilaterally Neck supple Chest Wall inspection of chest normal and palpation of chest normal Resp normal respiratory effort and clear to auscultation bilaterally Cardio regular rate and regular rhythm GI non-tender Palpation: soft Extremity Extremity Narrative: Open wound to the distal aspect of the right third toe. Toe is edematous and erythematous. No tenderness over the midfoot. No lympha ngitic streak. Neuro oriented x3 Sensorium / Orientation: alert MDM MDM MDM Narrative Medical decision making narrative: Blood culture, wound culture, lab work obtained. Right foot x-ray ordered. Lab Data Attestation: I reviewed the patient's lab results. Labs: Laboratory Results - last 24 hr 08/04/21 08/04/21 14:04 14:04 WBC 7.1 RBC 4.50 L Hgb 14.3 Hct 43.1 MCV 95.8 H MCH 31.8 MCHC 33.2 RDW Std Deviation 44.6 H RDW Coeff of José Luis 12.7 Plt Count 221 MPV 8.4 Immature Gran % (Auto) 0.100 Neut % (Auto) 67.1 Lymph % (Auto) 21.1 Edmunds % (Auto) 8.4 Eos % (Auto) 2.9 Baso % (Auto) 0.4 Absolute Neuts (auto) 4.8 Absolute Lymphs (auto) 1.51 Nucleated RBC % 0 Sodium 141 Potassium 3.7 Chloride 110 H Carbon Dioxide 28.0 Anion Gap 3 L BUN 13 Creatinine 1.15 Estim Creat Clear Calc 59.95 Est GFR (MDRD) Af Amer 80 Est GFR (MDRD) Non-Af 66 BUN/Creatinine Ratio 11.3 Glucose 113 H Calcium 8.8 Total Bilirubin 0.60 Direct Bilirubin 0.15 AST 33 ALT 33 Alkaline Phosphatase 92 Total Protein 7.4 Albumin 3.0 L Globulin 4.4 H Radiography Diagnostic Testing: Clinical Impression(s) from Imaging Studies Foot X-Ray 08/04/21 14:02 IMPRESSION: Findings in keeping with progressive changes in keeping with Charcot''s deformity. Diffuse soft tissue swelling. Electronically Signed: Luis Fink MD at 14:25 EST , Service support , Treatment and Re-Evaluation Comments:: Foot x-ray per my interpretation reveals no acute bony destruction at the third toe. Radiology interpretation is reviewed. Lab work unremarkable with normal white count. I reviewed the findings with Dr. Morales, on-call for podiatry. She would like us to start the same antibiotics that patient was on earlier this month and have him seen in the office on Sunday. The last antibiotics that I can find filled were in late May when he received Augmentin and clindamycin. After discussing this with patient and at bedside they now believe that maybe he did not get an antibiotic earlier this month, it was May when he was last on medication. He will be treated with Augmentin and clindamycin at this time. Return instructions provided. Discharge Plan Triage Chief Complaint: Wound ED Provider: Tami Yancey Dx/Rx/DC Orders Clinical Impression: Foot ulcer Instructions: Treating Pressure Injuries of ..., ED Wound Care Prescriptions: New clindamycin HCl [Cleocin HCl] 300 mg capsule 300 mg PO BID 7 Days Qty: 14 RF: 0 amoxicillin-pot clavulanate [Augmentin] 875-125 mg tablet 1 tab PO BID Qty: 14 RF: 0 No Action cetirizine 10 mg capsule 10 mg PO HS Qty: 30 RF: 3 budesonide-formoterol [Symbicort] 160-4.5 mcg/actuation HFA aerosol inhaler 2 inh inhalation BID Qty: 3 RF: 3 tiotropium bromide 1.25 mcg/actuation mist 2 inh INHALATION DAILY Qty: 3 RF: 3 montelukast 10 mg tablet 10 mg PO QPM Qty: 90 RF: 3 albuterol sulfate 90 mcg/actuation HFA aerosol inhaler 2 puff inhalation Q6H PRN (Reason: shortness of breath or wheezing) Qty: 8.5 RF: 2 acetaminophen 650 MG tablet extended release 650 mg PO DAILY RF: 0 famotidine 20 MG tablet 20 mg PO DAILY RF: 0 ondansetron 4 MG tablet 4 mg PO Q8H PRN PRN (Reason: Nausea) RF: 0 fluticasone propionate 1 SPRAY spray,suspension 2 spray NASAL DAILY RF: 0 cranberry extract 500 MG capsule 500 mg PO DAILY RF: 0 risedronate 150 MG tablet 150 mg PO QMONTH RF: 0 cholecalciferol (vitamin D3) 50 MCG capsule 2,000 unit PO DAILY RF: 0 qytqsemh-jdu-GB-lycopen-lutein 1 EACH tablet 1 tablet PO DAILY RF: 0 hydroxychloroquine [Plaquenil] 200 mg Tablet 200 mg PO DAILY RF: 0 vancomycin 1,000 MG/20 ML recon soln IV Q12H RF: 0 Primary Care Provider: Ganga Acosta Referrals: Ganga Acosta DO [Primary Care Provider] - Erickson Painter DPM [STAFF PHYSICIAN] - 3-5 Days (Follow-up in the office on Sunday.) Disposition Disposition: Home, Self Care
--- NOTE | 2021-08-04 14:02 | RAD_ITS ---
STUDY: X-RAY - RIGHT FOOT CLINICAL: Male, 71 years old. Swelling and redness. TECHNIQUE: 3 view(s) of the foot. COMPARISON: Comparison is made with prior examination of 12/31/2020. FINDINGS: There is a plantar calcaneal spur. There is evidence of a Charcot''s deformity with the degenerative changes with sclerosis and cystic changes involving the tarsal bones. There is degenerative arthrosis of the metatarsophalangeal joint of the hallux with a hallux valgus deformity. Normal tibial and fibular sesamoid bones. Normal interphalangeal joint of the great toe. Normal phalanges of the great toe. Normal second through fifth metatarsophalangeal joints. Normal interphalangeal joints and phalanges of the lesser toes. Diffuse soft tissue swelling. RAD/Foot min 3 Views IMPRESSION: Findings in keeping with progressive changes in keeping with Charcot''s deformity. Diffuse soft tissue swelling. Electronically Signed: Luis Fink MD at 14:25 EST , Service support ,
[2021-08-04 14:31] LABS: AST(SGOT) 33 U/L (15-37); Alanine Aminotransfer ALT/SGPT 33 U/L (16-61); Alkaline Phosphatase 92 U/L (45-117); Anion Gap 3 (5-15); BUN 13 mg/dL (7-18); BUN/Creat Ratio 11.3 RATIO (10-20); Bilirubin, Direct 0.15 mg/dL (0.00-0.30); Calcium,Total 8.8 mg/dL (8.5-10.1); Chloride 110 mmol/L (98-107); Creatinine, Serum 1.15 mg/dL (0.70-1.30); EST Glomerular Filtration Rate 66 mL/min (>60); Est Glom Filt Rate - Afr Amer 80 mL/min (>60); Estimated Creatinine Clearance 59.95 ml/min; Globulin 4.4 g/dL (2.2-4.2); Glucose 113 mg/dL (74-106); Potassium 3.7 mmol/L (3.5-5.1); Protein, Total 7.4 g/dL (6.4-8.2); Sodium Level 141 mmol/L (136-145)
[2021-08-04 14:34] LABS: Absolute Lymphocyte Count 1.51 X10^3/uL (0.83-4.51); Absolute Neutrophil Count 4.8 X10^3/uL (2.0-7.7); Basophil# 0.03 X10^3/uL; Basophil% 0.4 % (0-1); Eosinophil# 0.21 X10^3/uL; Eosinophils% 2.9 % (0-5); Hematocrit 43.1 % (40-54); Hemoglobin 14.3 g/dL (13.0-16.5); Lymphocyte # 1.51 X10^3/ul (0.83-4.51); Lymphocyte % 21.1 % (19-41); Mean Corp Hgb Conc 33.2 g/dL (32-36); Mean Corpuscular Hgb 31.8 pg (27.0-32.0); Mean Corpuscular Volume 95.8 fL (80-94); Mean Platelet Vol. 8.4 fl (6.2-12.0); Monocyte% 8.4 % (0-10); NRBC Flagged by Analyzer 0 % (0-5); Neutrophil # 4.78 X10^3/uL (2.7-7.7); Neutrophil % 67.1 % (47-70); Platelet Count 221 K/mm3 (150-450); RBC Distribution Width CV 12.7 % (11.6-14.6); RBC Distribution Width SD 44.6 fl (35.1-43.9); White Blood Count 7.1 K/mm3 (4.4-11.0)
[2021-08-04] MEDS: Amox/Clavulanate 875 MG Tablet PO (15:14)
[2021-08-04] MEDS: Clindamycin HCl 150 MG Capsule 300 MG PO (15:14)
[2021-08-04 15:16] VITALS: PULSE 72; O2SAT 94
== END 2021-08-04 15:19 | disposition home or self-care (01) ==
PROVIDERS: Emergency Provider Emergency Medicine; PCP Family Medicine
DX: L97.519 Non-pressure chronic ulcer of other part of right foot with unspecified severity (principal); Z77.090 Contact with and (suspected) exposure to asbestos; M06.9 Rheumatoid arthritis, unspecified; J45.909 Unspecified asthma, uncomplicated; M50.30 Other cervical disc degeneration, unspecified cervical region; G62.9 Polyneuropathy, unspecified; K21.9 Gastro-esophageal reflux disease without esophagitis; G47.33 Obstructive sleep apnea (adult) (pediatric); N40.0 Benign prostatic hyperplasia without lower urinary tract symptoms; E66.9 Obesity, unspecified; Z79.899 Other long term (current) drug therapy; Z85.46 Personal history of malignant neoplasm of prostate
CPT/HCPCS: 73630; 80048; 80076; 85025; 87040; 87070; 87205; 99284; A4216

== ENCOUNTER 2021-08-18 10:32 | Outpatient (CLI) | payer MEDICARE, SELFPAY ==
[2021-08-18 11:35] LABS: PSA,Total- Diagnostic < 0.01 ng/mL (0.0-4.0)
== END 2021-08-18 23:59 | disposition short-term general hospital (02) ==
LOC: LAB 10:35
PROVIDERS: PCP Family Medicine; Referring Provider Urology; Visit Provider Urology
DX: Z08 Encounter for follow-up examination after completed treatment for malignant neoplasm (principal); Z85.46 Personal history of malignant neoplasm of prostate
CPT/HCPCS: 36415; 84153

== ENCOUNTER 2021-08-31 08:00 | Outpatient (CLI) | payer MEDICARE, SELFPAY ==
--- NOTE | 2021-08-31 08:13 | MRI_ITS ---
STUDY: MRI RIGHT FOREFOOT WITHOUT CONTRAST REASON FOR EXAM: Wound at the distal third toe for 3 months, evaluate for osteomyelitis. TECHNIQUE: Standardized fat and water weighted pulse sequences were obtained in all 3 orthogonal planes. COMPARISON: Radiographs 08/04/2021 and MRI images 05/22/2020. FINDINGS: There is arthrosis of the metatarsophalangeal joint of the hallux with chondral thinning (T2 long axis images 15, 16). Normal tibial and fibular sesamoids, with normal sesamoids-first metatarsal articulations. There is arthrosis with chondral thinning interphalangeal joint of the hallux and flexion deformity (T1 sagittal image 7). Normal proximal and distal phalanges of the great toe. Normal medial and lateral heads of the flexor hallucis brevis tendons. Normal flexor and extensor hallucis longus tendons. Normal second through fifth metatarsophalangeal (MTP) joints. There is bone edema of the distal phalanx of the third toe (inversion recovery sagittal image 22) with decreased T1 bone marrow signal (T1 sagittal image 22) suggestive of osteomyelitis. There is no bone edema of the third proximal and middle phalanges. There is amputation of the second toe at the level the proximal interphalangeal joint. There are resection arthroplasties of the fourth and fifth proximal interphalangeal joints. Normal first through fourth intermetatarsal spaces. Normal flexor and extensor tendons of the second through fifth toes. There is progression of neuropathic osteoarthropathy of the tarsometatarsal joints and intertarsal articulations of the midfoot with mild bone edema (inversion recovery sagittal images 4-21). There is atrophy with partial fat replacement of the muscles of the forefoot (T1 short axis images 10-14). There is edema in the subcutis adipose space. There is no focal fluid collection to indicate soft tissue abscess. MRI/Lower Ext/No Jt/w/o IMPRESSION: Osteomyelitis of the third distal phalanx. 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 Arthrosis of the first metatarsophalangeal joint and interphalangeal joint of the first digit. N.B. : Antonina Amezcua, Construction Worker, LUANNE, confirmed on 09/01/2021 08:57:34 (ET) that the healthcare facility has received the radiology report. Electronically Signed: Ata Castellon MD at 13:54 EST ,
== END 2021-08-31 23:59 | disposition short-term general hospital (02) ==
LOC: MRI 08:01
PROVIDERS: PCP Family Medicine; Referring Provider Podiatrist; Visit Provider Podiatrist
DX: M86.9 Osteomyelitis, unspecified (principal)
CPT/HCPCS: 73718

== ENCOUNTER 2021-09-06 14:17 | Outpatient (CLI) | payer MEDICARE, SELFPAY ==
[2021-09-06 14:36] LABS: Absolute Lymphocyte Count 1.89 X10^3/uL (0.83-4.51); Basophil# 0.03 X10^3/uL; Basophil% 0.5 % (0-1); Eosinophil# 0.24 X10^3/uL; Eosinophils% 4.1 % (0-5); Hematocrit 43.1 % (40-54); Hemoglobin 14.4 g/dL (13.0-16.5); Lymphocyte # 1.89 X10^3/ul (0.83-4.51); Lymphocyte % 32.2 % (19-41); Mean Corp Hgb Conc 33.4 g/dL (32-36); Mean Corpuscular Hgb 32.1 pg (27.0-32.0); Mean Platelet Vol. 8.4 fl (6.2-12.0); Monocyte# 0.68 X10^3/uL; Monocyte% 11.6 % (0-10); NRBC Flagged by Analyzer 0 % (0-5); Neutrophil # 3.02 X10^3/uL (2.7-7.7); Neutrophil % 51.4 % (47-70); Platelet Count 203 K/mm3 (150-450); RBC Distribution Width CV 12.9 % (11.6-14.6); RBC Distribution Width SD 45.8 fl (35.1-43.9); Red Blood Count 4.49 M/mm3 (4.6-6.2); White Blood Count 5.9 K/mm3 (4.4-11.0)
[2021-09-12 21:49] LABS: Immunoglobulin E 243 IU/mL (6-495)
== END 2021-09-06 23:59 | disposition short-term general hospital (02) ==
LOC: PAVLAB 14:18
PROVIDERS: PCP Family Medicine; Referring Provider Nurse Practitioner Acute Care; Visit Provider Nurse Practitioner Acute Care
DX: J45.909 Unspecified asthma, uncomplicated (principal)
CPT/HCPCS: 36415; 82785; 85025

== ENCOUNTER 2021-09-07 12:04 | Outpatient (CLI) | payer MEDICARE, SELFPAY ==
[2021-09-07 15:11] LABS: Absolute Lymphocyte Count 0.88 X10^3/uL (0.83-4.51); Absolute Neutrophil Count 2.9 X10^3/uL (2.0-7.7); Basophil# 0.03 X10^3/uL; Basophil% 0.7 % (0-1); Eosinophil# 0.15 X10^3/uL; Eosinophils% 3.3 % (0-5); Hematocrit 41.9 % (40-54); Hemoglobin 14.2 g/dL (13.0-16.5); Lymphocyte # 0.88 X10^3/ul (0.83-4.51); Lymphocyte % 19.1 % (19-41); Mean Corp Hgb Conc 33.9 g/dL (32-36); Mean Corpuscular Hgb 32.6 pg (27.0-32.0); Mean Corpuscular Volume 96.3 fL (80-94); Mean Platelet Vol. 8.5 fl (6.2-12.0); Monocyte# 0.64 X10^3/uL; Monocyte% 13.9 % (0-10); NRBC Flagged by Analyzer 0 % (0-5); Neutrophil # 2.88 X10^3/uL (2.7-7.7); Neutrophil % 62.6 % (47-70); Platelet Count 180 K/mm3 (150-450); RBC Distribution Width CV 13.2 % (11.6-14.6); RBC Distribution Width SD 46.9 fl (35.1-43.9); Red Blood Count 4.35 M/mm3 (4.6-6.2); White Blood Count 4.6 K/mm3 (4.4-11.0)
[2021-09-07 15:28] LABS: ALB/GLOB Ratio 0.8 RATIO (0.9-2.4); AST(SGOT) 28 U/L (15-37); Alanine Aminotransfer ALT/SGPT 32 U/L (16-61); Albumin, Serum 3.3 g/dL (3.2-5.0); Alkaline Phosphatase 81 U/L (45-117); Anion Gap 6 (5-15); BUN 12 mg/dL (7-18); BUN/Creat Ratio 11.8 RATIO (10-20); Calcium,Total 8.5 mg/dL (8.5-10.1); Chloride 107 mmol/L (98-107); Creatinine, Serum 1.02 mg/dL (0.70-1.30); EST Glomerular Filtration Rate 76 mL/min (>60); Est Glom Filt Rate - Afr Amer 92 mL/min (>60); Glucose 94 mg/dL (74-106); Potassium 3.8 mmol/L (3.5-5.1); Protein, Total 7.3 g/dL (6.4-8.2); Sodium Level 139 mmol/L (136-145)
== END 2021-09-07 23:59 | disposition short-term general hospital (02) ==
LOC: MTLAB 12:05
PROVIDERS: PCP Family Medicine; Referring Provider Podiatrist; Visit Provider Podiatrist
DX: M86.9 Osteomyelitis, unspecified (principal)
CPT/HCPCS: 36415; 80053; 85025

== ENCOUNTER 2021-09-16 05:52 | Day surgery (SDC) | payer MEDICARE, SELFPAY ==
[2021-09-16 06:20] VITALS: BP 109/64; PULSE 73; RESP 18; TEMP 36.7; O2SAT 97; BMI 32.8
[2021-09-16] MEDS: Lactated Ringers 1,000 ML 15 ML IV (06:29)
--- NOTE | 2021-09-16 07:30 | FOOT_PTH ---
PATIENT: SHIVANI DENSON LOC: [facility] U#:[id number] AGE/SX: 71/M ROOM: RE09/16/[address]: Dr. Erickson Painter DPM : 1950 BED: DIS: 09/16/2021 SPEC #: [id number] RECD: 09/19/21 07:22 STATUS: ETHEL PRASANTH #: [id number] ANNA: 09/16/21 07:[address]: Erickson Painter DEPT: SURGICAL PATHOLOGY RECD BY: Kellie De Luna ENTERED: 09/19/21 13:55 SP TYPE: FOOT OTHR DR: Dr. Ganga Acosta DO Tissues: A - Foot, NOS B - Foot, NOS Procedures: Decalcification bone/plaque Surgery Specimen Level III Surgery Specimen Level IV HEADER OPERATION: Partial amputation third toe PRE-OP DIAGNOSIS: Osteomyelitis right third toe TISSUE SUBMITTED: A ? Right third toe, B ? Clearance fragment right third toe MICROSCOPIC DIAGNOSIS A. Right third toe, partial amputation: Extensive hyperkeratosis, parakeratosis and reactive changes. Negative for acute osteomyelitis. B. Right third toe, clearance fragment: A piece of bone, negative for acute osteomyelitis. :angela 09/26/2021 MICROSCOPIC DESCRIPTION Slides are reviewed. GROSS DESCRIPTION A - Received in fixative is one container labeled with the patient's name and designated right third toe. The specimen consists of a portion of toe measuring 2.5 x 2 x 2 cm. A focal area of ulceration is noted at the tip of the toe measuring 1 cm in greatest dimension. Also present in the container is a detached piece of skin measuring 1 x 0.5 x 0.5 cm. Evs Attendant sections are submitted in two cassettes after decalcification. / :angela 09/19/2021 More sections are submitted in cassette 3 after decalcification. / :angela 09/22/2021 B - Received in fixative is one container labeled with the patient's name and designated right third toe clearance fragment. The specimen consists of a piece of bone measuring 1 x 0.7 x 0.9 cm. The entire specimen is submitted in one cassette after decalcification. / ZACHERY:angela 09/19/2021 TC:5 CPT: 24695, 88033, 36620 x2
[2021-09-16] MEDS: Cefazolin 2 GM in 0.9% Normal Saline 100 ML IV (08:01)
[2021-09-16 08:15] VITALS: BP 109/64; PULSE 60; RESP 16; TEMP 36.4; O2SAT 94
--- NOTE | 2021-09-16 08:16 | RAD_ITS ---
STUDY: X-RAY - RIGHT FOOT CLINICAL: Male, 71 years old. Post op. Partial amputation of the third toe. TECHNIQUE: 3 view(s) of the foot. COMPARISON: Comparison is made with prior examination dated 08/04/2021. FINDINGS: Once again, there is evidence of Charcot''s deformity with degenerative changes and sclerosis with cystic changes involving the tarsal bones. There is evidence of a neuropathic osteoarthropathy of the tarsometatarsal joints and intertarsal articulations of the midfoot. Normal metatarsi. There is degenerative arthrosis of the metatarsophalangeal joint of the hallux with a hallux valgus deformity. Normal tibial and fibular sesamoid bones. Normal interphalangeal joint of the great toe. Normal phalanges of the great toe. Normal second through fifth metatarsophalangeal joints. The patient is status post amputation of the middle and distal phalanges of the third toe as well as amputation of the distal phalanx of the second toe. Soft tissue swelling. RAD/Foot min 3 Views IMPRESSION: Status post resection of the proximal and distal phalanx of the third toe. The remainder of the examination is unchanged. Electronically Signed: Luis Fink MD at 9:12 EST ,
--- NOTE | 2021-09-16 08:17 | PCM.DC ---
Discharge Instructions Diet Discharge Diet: Light diet - advance as tolerated Activity Weight Bearing Status: No weight bearing (Avoid weight on right foot as much as possible. If you have to put weight on right foot only put weight on heel for very short periods of time.) Keep extremity elevated above heart level: Right Leg (Keep right foot elevated with pillows as much as possible.) Dressing / Incision Call your doctor if you observe: Fever of 101 or Higher, Shortness of breath, Chest pain, Increased palpitations (irregular heartbeat), Calf discomfort and Uncontrolled pain Change Dressing in: do not change dressing Remove Dressing in: do not remove dressing Cleanse incision/area with: Do not get Incision Wet and Keep Dressing Clean & Dry Follow Up Care Please Follow Up With: Erickson Painter DPM When: As scheduled for next week. Call Dr. Painter sooner if needed. [facility] Office number: [phone] Dr. Painter cell: [phone] Test Results: Test results from this visit will be discussed in further detail at your follow-up appointment, if applicable. Discharge Plan Admission Attending Provider: Erickson Painter Primary Care Provider: Ganga Acosta Discharge Orders/Prescriptions Prescriptions: New hydrocodone-acetaminophen 5-300 mg tablet 1 - 2 tab PO Q6H PRN (Reason: pain) 4 Days Qty: 14 RF: 0 clindamycin HCl 300 mg capsule 300 mg PO Q12H Qty: 14 RF: 0 Continued budesonide-formoterol [Symbicort] 160-4.5 mcg/actuation HFA aerosol inhaler 2 inh inhalation BID Qty: 3 RF: 3 famotidine 20 MG tablet 20 mg PO DAILY RF: 0 fluticasone propionate 1 SPRAY spray,suspension 2 spray NASAL DAILY RF: 0 cranberry extract 500 MG capsule 500 mg PO DAILY RF: 0 cholecalciferol (vitamin D3) 50 MCG capsule 2,000 unit PO DAILY RF: 0 Centrum Silver Men 1 EACH tablet 1 tablet PO DAILY RF: 0 hydroxychloroquine [Plaquenil] 200 mg Tablet 200 mg PO DAILY RF: 0 montelukast [Singulair] 10 mg tablet 10 mg PO QPM RF: 0 albuterol sulfate 90 mcg/actuation HFA aerosol inhaler 2 puff inhalation QHS PRN (Reason: ASTHMA) RF: 0 Zyrtec 10 mg capsule 10 mg PO HS RF: 0 Spiriva Respimat 1.25 mcg/actuation mist 2 inh INHALATION DAILY RF: 0 Held risedronate 150 MG tablet 150 mg PO QMONTH RF: 0 Hold Instructions: Resume on 10/14/21. Discontinued acetaminophen 650 MG tablet extended release 650 mg PO DAILY PRN (Reason: Pain) RF: 0 clindamycin HCl [Cleocin HCl] 300 mg capsule 300 mg PO BID 7 Days Qty: 14 RF: 0 Referrals / Follow Up: Ganga Acosta DO [Primary Care Provider] - Disposition Disposition (needs filled in before D/C Order can be placed): Home, Self Care
[2021-09-16 08:20] VITALS: BP 109/64; BP 120/78; PULSE 61; RESP 16; O2SAT 92
--- NOTE | 2021-09-16 08:20 | PCM.OPRPT ---
Report of Operation Date of Procedure: 09/16/21 Pre-Operative Diagnosis: Osteomyelitis right 3rd toe Post-Operative Diagnosis: Same Surgery/Procedure Performed:: Partial right 3rd toe amputation supervisor grinding: None Type of Anesthesia: MAC/Supplemental/Local Specimen's removed: 1. Amputated right 3rd toe sent to pathology with bone culture from distal phalanx sent to microbiology 2. Clearance fragment right 3rd toe sent to pathology and microbiology Estimated Blood Loss (mL): 1mL Description of Procedure: Indications: The patient is a 71 year old gentleman with multiple medical problems including peripheral neuropathy who has a ulceration and osteomyelitis to the right 3rd toe. MRI has been obtained which was consistent with osteomyelitis to the distal phalanx of the right 3rd toe. The patient also has chronic pain to the right 3rd toe. We discussed the options - nonsurgical vs surgical, and we agree to proceed with surgical intervention of partial right 2nd toe amputation. The consent form was reviewed with him, and it was freely signed. No guaranties were given nor implied. No warranties were given. Operative Procedure: He was brought into the operating room, and was place on the operating room table in the supine position. He was carefully secured to the operating room table with a safely belt around his waist. A time out was performed, the patient was properly identified and the surgical plan was confirmed. A well padded pneumatic tourniquet was placed around the right ankle. The patient received anesthesia per the anesthesia team, and a total of 10mL of 0.5% Marcaine plain was given as a right 3rd toe block after the skin was cleansed with 70% isopropyl alcohol. The right foot was scrubbed, prepped and draped in the usual aseptic fashion. Further attention was directed to the right foot. There was an ulceration at the tip of the 3rd toe, there was edema to the 3rd toe. There was no significant erythema, no maloder, no fluctuance, no crepitus, no streaking. The right foot was exsanguinated via Esmarch bandage, and the ankle pneumatic tourniquet was inflated to 250mmHg. Using a 15 scalpel blade an incision was made around the 3rd toe at the level of the middle phalanx. The distal phalanx was soft, yellow and nonviable consistent with infection. The middle phalanx of the 3rd toe was soft and nonviable appearing as well but appeared better than the distal phalanx. The toe was disarticulated at the level of the proximal interphalangeal joint. The head of the proximal phalanx was healthy, viable, white and normal appearing. The removed toe was sent to pathology and a piece of the distal phalanx was sent to microbiology. A clearance fragment was taken from the proximal aspect of the toe at level of the amputation and sent as a clearance fragment to pathology and microbiology. The site was flushed out with copious amounts of normal saline solution. All remaining tissues appeared to be healthy and viable. The skin was reapproximated using 3-0 Prolene. The ankle tourniquet was deflated (total tourniquet time was 18 minutes) and there was normal temperature to the foot, and CFT < 2 seconds to all remaining toes. There was not significant blood loss. A dressing was applied which consisted of betadine soaked adaptic, 4x4 gauze, kerlix, and billy dressing. Also of note patient was given a dose of Ancef 2g IV once the tourniquet was deflated. Patient tolerated the above procedure well with no complications. He was transported from the operating room to the recovery room in good condition. Post operative orders placed. Post operating instructions were reviewed with patient. Keep foot elevated, keep dressing on foot clean, dry and intact, and no weightbearing to the foot except for transfers ok to put weight on the heel. Post operative foot xrays obtained in the recovery room which confirmed partial 3rd toe amputation, no evidence of complication or acute findings otherwise. Patient to follow up with me on Sunday next week in office, sooner if needed. Also prescription for [place] and Clindamycin was provided. Grafts/Implants Used: None Complications None
[2021-09-16 08:25] VITALS: BP 109/64; BP 117/77; PULSE 60; RESP 16; O2SAT 93
[2021-09-16 08:30] VITALS: BP 109/64; BP 118/76; PULSE 58; RESP 16; TEMP 36.1; O2SAT 93
[2021-09-16 09:30] VITALS: BP 109/64; BP 135/98; PULSE 74; RESP 16; TEMP 36.6; O2SAT 93
== END 2021-09-16 23:59 | disposition home or self-care (01) ==
LOC: SDC 05:52 → AC 05:53
PROVIDERS: PCP Family Medicine; Referring Provider Podiatrist; Visit Provider Podiatrist
PROC: (CPT 28825; principal; 2021-09-16 07:15)
DX: M86.9 Osteomyelitis, unspecified (principal); M06.9 Rheumatoid arthritis, unspecified; G89.29 Other chronic pain; G62.9 Polyneuropathy, unspecified; M79.674 Pain in right toe(s); E78.5 Hyperlipidemia, unspecified; M19.90 Unspecified osteoarthritis, unspecified site; G47.33 Obstructive sleep apnea (adult) (pediatric); K21.9 Gastro-esophageal reflux disease without esophagitis; J45.909 Unspecified asthma, uncomplicated; E66.9 Obesity, unspecified; Z68.33 Body mass index [BMI] 33.0-33.9, adult
CPT/HCPCS: 28825; 73630; 87015; 87070; 87075; 87077; 87116; 87176; 87186; 87205; 87206; 88304; 88305; 88307; 88311; J7120

== ENCOUNTER 2021-10-10 11:11 | Outpatient (CLI) | payer MEDICARE, SELFPAY ==
--- NOTE | 2021-10-10 13:14 | NEURO_ITS ---
NCS and/or EMG Patient Report Ordering Doctor: Markus Jeffries DATE OF SERVICE: 10/10/21 Indication: Bilateral lower extremity sensory loss. Symptoms have been present for years. History is complicated by rheumatoid arthritis with multiple foot surgeries. Evaluate for peripheral neuropathy. Findings: Nerve conduction studies were performed in the right lower extremity. Some comparisons were made to the left. The right peroneal motor study recording the extensor digitorum brevis showed an absent responses. The right tibial motor study recording the abductor hallucis brevis showed a markedly reduced amplitude, normal distal latency and slowed conduction velocity. The right sural sensory response was absent. The right superficial peroneal sensory response was absent. Comparisons were made to the sensory nerves in the contralateral limb. The left sural sensory response was absent. The left superficial peroneal sensory response was absent. Needle EMG of the right lower extremity and paraspinal muscles was performed. Mild active denervation was present in distal muscles. Reinnervation changes were seen in a length dependent fashion within the right lower extremity. Impression: This is an abnormal study. There is electrophysiologic evidence consistent with a generalized, axonal, active and chronic, sensorimotor, peripheral polyneuropathy. Nii Baez D.O. Multi Select Codes Neurology Neurology Interp Codes: 50665-53 Musc test done w/n test comp (interp) and 94149-31 [facility] cndj tst 5-6 studies (interp)
== END 2021-10-10 23:59 | disposition home or self-care (01) ==
LOC: PSN 11:13
PROVIDERS: PCP Family Medicine; Referring Provider Internal Medicine Rheumatology; Visit Provider Internal Medicine Rheumatology
DX: G62.9 Polyneuropathy, unspecified (principal); R20.2 Paresthesia of skin; J45.909 Unspecified asthma, uncomplicated
CPT/HCPCS: 95886; 95909

== ENCOUNTER 2021-10-25 12:23 | Outpatient (CLI) | payer MEDICARE, SELFPAY ==
--- NOTE | 2021-10-25 15:30 | PFTCOMP_ITS ---
COMPLETE PULMONARY FUNCTION TEST INTERPRETATION Brief HPI: Patient is a 71 year old male, currently under the care of myself, who presents to [facility] for complete pulmonary function tests secondary to diagnosis of asthma. Respiratory therapist reports good effort and reproducible results. Interpretation: Forced expiration spirometry shows a mild large airways obstructive ventilatory defect with an FEV1 of 79% predicted. There is no significant bronchodilator response by strict ATS criteria. Spirograms are of good quality and plateau slowly, indicating slowly emptying areas of the lungs. The respiratory flow volume loop shows decreased expiratory flow rates at all lung volumes consistent with airway obstruction. Lung volumes by body plethysmography show a normal total lung capacity at 7.44 L, 115% predicted. All other lung volumes are increased symmetrically. Diffusion capacity by carbon monoxide is normal at 84% predicted. The airway resistance is normal. Compared to previous pulmonary function tests from 06/09/2021, there has been no significant change. Impression: Irreversible mild large airways obstructive ventilatory defect with no significant change compared to previous.
== END 2021-10-25 23:59 | disposition home or self-care (01) ==
LOC: PSN 12:25
PROVIDERS: PCP Family Medicine; Referring Provider Internal Medicine Critical Care Medicine; Visit Provider Internal Medicine Critical Care Medicine
DX: J45.909 Unspecified asthma, uncomplicated (principal)
CPT/HCPCS: 94060; 94726; 94729

== ENCOUNTER → 2021-12-30 | Outpatient (CLI) | payer MEDICARE, SELFPAY ==
[2021-12-30 12:19] LABS: Hematocrit 44.7 % (40-54); Hemoglobin 15.1 g/dL (13.0-16.5); Mean Corp Hgb Conc 33.8 g/dL (32-36); Mean Corpuscular Hgb 32.6 pg (27.0-32.0); Mean Corpuscular Volume 96.5 fL (80-94); Mean Platelet Vol. 8.8 fl (6.2-12.0); Platelet Count 226 K/mm3 (150-450); RBC Distribution Width SD 42.6 fl (35.1-43.9); Red Blood Count 4.63 M/mm3 (4.6-6.2); White Blood Count 4.8 K/mm3 (4.4-11.0)
[2021-12-30 12:40] LABS: Vitamin B12 471 pg/mL (211-911)
[2021-12-30 13:21] LABS: ALB/GLOB Ratio 0.9 RATIO (0.9-2.4); AST(SGOT) 30 U/L (15-37); Alanine Aminotransfer ALT/SGPT 27 U/L (16-61); Albumin, Serum 3.6 g/dL (3.2-5.0); Alkaline Phosphatase 99 U/L (45-117); Anion Gap 5 (5-15); BUN 15 mg/dL (7-18); BUN/Creat Ratio 13.2 RATIO (10-20); Calcium,Total 8.9 mg/dL (8.5-10.1); Chloride 108 mmol/L (98-107); Creatinine, Serum 1.14 mg/dL (0.70-1.30); EST Glomerular Filtration Rate 67 mL/min (>60); Est Glom Filt Rate - Afr Amer 81 mL/min (>60); Glucose 88 mg/dL (74-106); Potassium 3.8 mmol/L (3.5-5.1); Protein, Total 7.6 g/dL (6.4-8.2); Sodium Level 140 mmol/L (136-145); Thyroid Stim Hormone (TSH) 2.44 uIU/mL (0.358-3.74)
[2022-01-17 11:09] LABS: Free Kappa Light Chains 22.8 mg/L (3.3-19.4); Free Lambda Light Chains 18.2 mg/L (5.7-26.3)
== END | disposition home or self-care (01) ==
LOC: MTLAB 10:25
PROVIDERS: PCP Family Medicine; Referring Provider Psychiatry & Neurology Neurology; Visit Provider Psychiatry & Neurology Neurology
DX: C61 Malignant neoplasm of prostate (principal); G62.9 Polyneuropathy, unspecified; M85.80 Other specified disorders of bone density and structure, unspecified site; E78.5 Hyperlipidemia, unspecified
CPT/HCPCS: 36415; 80053; 82607; 82652; 82746; 83883; 84425; 84443; 85027

== ENCOUNTER → 2022-02-16 | Outpatient (CLI) | payer MEDICARE, SELFPAY ==
[2022-02-16 10:20] LABS: AST(SGOT) 17 U/L (15-37); Alanine Aminotransfer ALT/SGPT 19 U/L (16-61); Albumin, Serum 3.3 g/dL (3.2-5.0); Alkaline Phosphatase 97 U/L (45-117); Bilirubin, Direct 0.18 mg/dL (0.00-0.30); Globulin 3.7 g/dL (2.2-4.2)
== END | disposition home or self-care (01) ==
LOC: MTLAB 08:20
PROVIDERS: PCP Family Medicine; Referring Provider Internal Medicine Rheumatology; Visit Provider Internal Medicine Rheumatology
DX: R74.8 Abnormal levels of other serum enzymes (principal)
CPT/HCPCS: 36415; 80076

== ENCOUNTER 2022-06-05 20:30 | Observation (INO) | payer MEDICARE, SELFPAY ==
[2022-06-05 20:31] VITALS: BP 120/84; PULSE 81; RESP 18; TEMP 36.8; O2SAT 97; BMI 30.8
--- NOTE | 2022-06-05 21:47 | RAD_ITS ---
EXAM: XR RIGHT WRIST COMPLETE, 3 OR MORE VIEWS CLINICAL INDICATION: pain with movement TECHNIQUE: Frontal, lateral and oblique views of the right wrist. This report was created using uMentioned report generation technology. COMPARISON: 01/15/2019 FINDINGS: BONES/JOINTS: There is marked degenerative change with narrowing of the radiocarpal joint space which has progressed from the reference exam. No acute fracture. No subluxation. Normal alignment. No sclerotic or destructive changes observed. SOFT TISSUES: Unremarkable. No soft tissue swelling or gas. No radiopaque foreign body. RAD/Wrist min 3 Views IMPRESSION: 1. No acute osseous abnormalities. 2. Progression of degenerative change in the wrist with narrowing of the radiocarpal joint space. Electronically Signed: Dave Davis MD at 22:28 EDT ,
--- NOTE | 2022-06-05 22:09 | EDS_ITS ---
HPI History of Present Illness Chief Complaint: Upper Extremity Injury Detail of Chief Complaint: Atraumatic right wrist pain and swelling Informant: patient and spouse/S.O. Onset/Context/Timing Onset: Days Context: Sudden Onset (Suddenly became worse this morning) Timing: Continuous Quality of Pain: Dull and Aching Current Severity: Severe Maximum Severity: Severe Worsened by: Any type of movement Relieved by: Nothing Associated Symptoms Associated Symptoms: Positive for Loss of Funtion; Negative for Parasthesia or Weakness Narrative Narrative: Patient is a 72-year-old enwud-suyp-egjqyyna male who has history of rheumatoid arthritis seen by Dr. Hassan at the [facility]. He presents because of severe pain at started this morning with swelling and redness of his wrist. He was recently injected by Dr. Hassan. He denies history of gout or pseudogout. He denies fever, chills night sweats. He reports trauma 3 weeks ago. He denies paresthesia, anesthesia or motor weakness. He is not on a thiazide diuretic. Tetanus Immunization: Unknown Prior similar symptoms: Yes Recent Illness/Hospitalization: No PFSH [facility] Medical History Arthritis Asbestos exposure Asthma BPH (benign prostatic hyperplasia) Cancer Cardiology follow-up encounter Carpal tunnel syndrome Cataracts, bilateral CPAP (continuous positive airway pressure) dependence DDD (degenerative disc disease), cervical Fatigue Gastric reflux Gastric ulcer GERD (gastroesophageal reflux disease) Glaucoma History of echocardiogram History of steroid therapy History of stress test Kidney stones Kidney stones Moderate persistent allergic asthma without complication Neuropathy Non-smoker Obesity KEZIA treated with BiPAP Osteoarthritis Osteopenia Prostate cancer Rheumatoid arthritis Shortness of breath on exertion Skin cancer Sleep apnea Wears glasses Home Medications risedronate 150 mg tablet 150 mg PO QMONTH BONES 11/25/20 [History Last Taken 11/11/20] hydroxychloroquine 200 mg tablet (Plaquenil) 200 mg PO DAILY 01/05/21 [History Last Taken Unknown] albuterol sulfate 90 mcg/actuation aerosol inhaler 2 inh inhalation Q6H PRN ASTHMA #3 ea 10/05/21 [Rx Last Taken Unknown] azelastine 137 mcg (0.1 %) nasal spray aerosol 2 spray intranasal BID 12/26/21 [History Last Taken Unknown] fluticasone 100 mcg-salmeterol 50 mcg/dose blistr powdr for inhalation (Advair Diskus) 1 inh inhalation BID 12/26/21 [History Last Taken Unknown] cholecalciferol (vitamin D3) 50 mcg (2,000 unit) capsule 50 mcg PO DAILY 12/27/21 [History Last Taken Unknown] budesonide-formoterol HFA 160 mcg-4.5 mcg/actuation aerosol inhaler (Symbicort) 2 inh inhalation BID #3 ea 03/22/22 [Rx Last Taken Unknown] montelukast 10 mg tablet 10 mg PO QPM #90 tabs 03/22/22 [Rx Last Taken Unknown] tiotropium bromide 1.25 mcg/actuation mist for inhalation (Spiriva Respimat) 2 inh inhalation DAILY BREATHING #3 device 03/22/22 [Rx Last Taken Unknown] cetirizine 10 mg capsule (Zyrtec) 10 mg PO DAILY PRN 05/16/22 [History Last Taken Unknown] flurbiprofen 100 mg tablet 100 mg PO TID PRN pain #90 tabs 05/16/22 [Rx Last Taken Unknown] gabapentin 100 mg capsule 300 mg PO QHS 05/16/22 [History Last Taken Unknown] leflunomide 20 mg tablet 20 mg PO DAILY 05/16/22 [History Last Taken Unknown] multivitamin (Multiple Vitamins tablet) 1 tab PO DAILY 05/16/22 [History Last Taken Unknown] Allergy/AdvReac Type Severity Reaction Status Date / Time gluten Allergy Food Verified 06/05/22 20:31 Allergy peanut Allergy Food Verified 06/05/22 20:31 Allergy yeast, dried [yeast] Allergy Food Verified 06/05/22 20:31 Allergy doxycycline AdvReac Hives Verified 06/05/22 20:31 environmental Allergy PT UNSURE Uncoded 06/05/22 20:31 OF REACTION Family History Mother Heart disease CHF atrial fib Sister Hypertension Surgical History H/O prostatectomy History of cardiac catheterization History of carpal tunnel release History of inguinal hernia repair History of left heart catheterization (07/23/18) History of removal of retained hardware History of rhinoplasty History of tonsillectomy History of total knee arthroplasty Hx of colonoscopy Hx of foot surgery Social History household members: spouse Smoking Status: Never smoker second hand exposure: No alcohol intake: never substance use type: does not use drea/protestant: Restorationism seatbelt use: always ROS ROS ED Constitutional Constitutional ED: Denies chills, fever(s), subjective, sweats or weight loss Eyes Eyes: Denies blurry vision or change in vision ENT ENT ED: Denies ear pain, rhinorrhea or sore throat Cardiovascular Cardiovascular: Denies chest pain or palpitations Respiratory/Chest Respiratory/Chest: Denies cough, dyspnea or dyspnea on exertion Gastrointestinal Gastrointestinal: Denies abdominal pain, constipation or diarrhea Genitourinary Genitourinary ED: Denies dysuria, hematuria or urinary frequency Musculoskeletal Musculoskeletal: Reports other Details: Per HPI narrative ; Denies back pain, myalgias or neck pain Integumentary Reports rash; Denies abscess or Abrasions Neurologic Neurologic: Denies headache(s), paresthesias or weakness Hematologic/Lymphatic Hematologic/Lymphatic: Denies easy bleeding or easy bruising EXAM Physical Exam Const Vital Signs: 06/05/22 20:31 Temperature 98.2 F Temperature Source Temporal Pulse Rate 81 Respiratory Rate 18 Blood Pressure 120/84 H Blood Pressure Mean 96 Pulse Ox 97 Oxygen Delivery Method Room Air Positive well nourished and well developed Constitutional Narrative: Patient appears uncomfortable. He is holding his right wrist. He is reluctant to move it. General Appearance ED: well developed; Negative for cyanotic, diaphoretic or NAD HEENT Reports moist mucous membranes HEENT Narrative: Ears normal. Nares patent. Mucosa moist. normocephalic and atraumatic Eyes PERRL and EOMs intact bilaterally Eyes Narrative: Sclera is anicteric. Conjunctive is pink. Neck full ROM and supple Resp normal respiratory effort and clear to auscultation bilaterally Cardio regular rate, regular rhythm, S1 normal heart sound, S2 normal heart sound and no murmurs Extremity Negative for normal to inspection or full ROM Extremity Narrative: Patient has swelling of the right wrist. There is fluctuance over the joint. There is slight erythema. There is no warmth or induration. There is no lymphangitis. There is no epitrochlear lymphadenopathy. Neuro oriented x3, CN's II-XII intact bilaterally, moves all extremities, no focal motor deficits and no sensory deficits noted Sensorium / Orientation: alert Motor Exam: strength 5/5 throughout Psych mental status grossly normal Skin General Skin Exam: Negative for petechiae Lesions: no lesions Rashes: no rashes Trauma: no lacerations or abrasions MDM MDM MDM Narrative Medical decision making narrative: Differential diagnosis is rheumatoid arthritis flare, pyogenic arthritis or crystal induced arthritis. Arthrocentesis was obtained after looking at x-rays which reveals significant degenerative changes. Purulent material was aspirated. Fluid was sent for appropriate analysis. Patient was medicated with Dilaudid. Lab Data Attestation: I reviewed the patient's lab results. Lab results narrative: White count is slightly elevated. CRP is significantly elevated at 56. He had normal CRP is recently. ESR is normal. ESR does take significantly longer time to rise compared to the CRP. There is concerned this may represent pyogenic arthritis. Awaiting Gram stain. Since the gram stain has not been completed there is concerned this may represent pyogenic arthritis 1 g Rocephin was ordered. Radiography Diagnostic Testing: Three-view x-ray of the wrist was obtained per nurse protocol. Patient has significant degenerative arthritis. There is no volar fat pad noted. There is no fracture, subluxation or dislocation on my independent review interpretation at 09/14/2008. Procedures Other Procedures Procedure(s): Arthrocentesis right wrist area was prepped draped sterile manner. Approximately 0.3 to 0.4 cc of thick greenish fluid was aspirated. Discharge Plan Triage Chief Complaint: Upper Extremity Injury ED Provider: Joel Solorzano Dx/Rx/DC Orders Prescriptions: No Action albuterol sulfate 90 mcg/actuation HFA aerosol inhaler 2 inh inhalation Q6H PRN (Reason: ASTHMA) Qty: 3 3RF fluticasone propion-salmeterol [Advair Diskus] 100-50 mcg/dose blister with device 1 inh inhalation BID azelastine 137 mcg (0.1 %) aerosol,spray 2 spray intranasal BID Rx Instructions: administer into each nostril cholecalciferol (vitamin D3) 50 mcg (2,000 unit) capsule 50 mcg PO DAILY budesonide-formoterol [Symbicort] 160-4.5 mcg/actuation HFA aerosol inhaler 2 inh inhalation BID Qty: 3 3RF montelukast 10 mg tablet 10 mg PO QPM Qty: 90 3RF Spiriva Respimat 1.25 mcg/actuation mist 2 inh INHALATION DAILY Qty: 3 3RF gabapentin 100 mg capsule 300 mg PO QHS leflunomide 20 mg tablet 20 mg PO DAILY multivitamin [Multiple Vitamins] Tablet 1 tab PO DAILY Zyrtec 10 mg capsule 10 mg PO DAILY PRN flurbiprofen 100 mg tablet 100 mg PO TID PRN (Reason: pain) Qty: 90 3RF risedronate 150 MG tablet 150 mg PO QMONTH Hold Instructions: Resume on 10/14/21. hydroxychloroquine [Plaquenil] 200 mg Tablet 200 mg PO DAILY Primary Care Provider: Ganga Acosta Referrals: Ganga Acosta DO [Primary Care Provider] -
[2022-06-05 22:20] VITALS: BP 139/86; PULSE 79; RESP 16; O2SAT 97
[2022-06-05] MEDS: HYDROmorphone 0.5 MG/0.5 ML SYRINGE IV ×2 (22:32→23:59)
[2022-06-05 22:43] LABS: Absolute Lymphocyte Count 2.44 X10^3/uL (0.83-4.51); Basophil# 0.09 X10^3/uL; Basophil% 0.7 % (0-1); Eosinophil# 0.52 X10^3/uL; Eosinophils% 4.2 % (0-5); Hematocrit 43.6 % (40-54); Hemoglobin 14.5 g/dL (13.0-16.5); Lymphocyte # 2.44 X10^3/ul (0.83-4.51); Lymphocyte % 19.9 % (19-41); Mean Corp Hgb Conc 33.3 g/dL (32-36); Mean Corpuscular Hgb 31.9 pg (27.0-32.0); Mean Corpuscular Volume 95.8 fL (80-94); Mean Platelet Vol. 8.1 fl (6.2-12.0); Monocyte# 1.11 X10^3/uL; Monocyte% 9.1 % (0-10); NRBC Flagged by Analyzer 0 % (0-5); Neutrophil # 8.02 X10^3/uL (2.7-7.7); Neutrophil % 65.4 % (47-70); Platelet Count 281 K/mm3 (150-450); RBC Distribution Width CV 12.6 % (11.6-14.6); RBC Distribution Width SD 44.4 fl (35.1-43.9); Red Blood Count 4.55 M/mm3 (4.6-6.2); White Blood Count 12.3 K/mm3 (4.4-11.0)
[2022-06-05 23:00] LABS: Anion Gap 5 (5-15); BUN 22 mg/dL (7-18); BUN/Creat Ratio 20.2 RATIO (10-20); Calcium,Total 9.5 mg/dL (8.5-10.1); Chloride 106 mmol/L (98-107); Creatinine, Serum 1.09 mg/dL (0.70-1.30); EST Glomerular Filtration Rate 70 mL/min (>60); Erythrocyte Sedimentation Rate 14 mm/hr (0-20); Est Glom Filt Rate - Afr Amer 85 mL/min (>60); Estimated Creatinine Clearance 62.32 ml/min; Glucose 98 mg/dL (74-106); Sodium Level 139 mmol/L (136-145)
[2022-06-06] VITALS (12 sets, daily range): BP systolic 97–141; BP diastolic 58–80; PULSE 64–87; RESP 14–18; TEMP 36.7–37.4; O2SAT 91–98; BMI 30.6
[2022-06-06] MEDS: Ceftriaxone 1 GM/50 ML BAG IV ×2 (00:37→20:53)
[2022-06-06] MEDS: HYDROmorphone 0.5 MG/0.5 ML SYRINGE IV (02:29)
--- NOTE | 2022-06-06 02:30 | HP.PCM.HOS_ITS ---
HPI - General General Date of Admission: 06/06/22 Date of Service: 06/06/22 Chief Complaint: right wrist pain. HPI Narrative SHIVANI DENSON, is a 72 M who presents presents with right wrist pain and swelling. Patient been having some pain and swelling of his right wrist. Was felt to initially be due to a rheumatoid arthritis flare and saw his air and hydronic balancing technician, Dr. Jeffries, at the [facility] who did an injection on his right wrist. To bleeding injections, when they are performed, helps his flare and it gets better. However, this actually got worse. Patient presented to the emergency room because of this. Patient underwent an arthrocentesis that had greenish fluid aspirated and it was sent off. Gram stain did not show any organisms. Apparently there is too little fluid to be sent off for crystals. The ER reached out to Dr. Rc Cordova, and informed me that he would be willing to see the patient in consultation. [facility] Medical History Arthritis Asbestos exposure Asthma BPH (benign prostatic hyperplasia) Cancer Cardiology follow-up encounter Carpal tunnel syndrome Cataracts, bilateral CPAP (continuous positive airway pressure) dependence DDD (degenerative disc disease), cervical Fatigue Gastric reflux Gastric ulcer GERD (gastroesophageal reflux disease) Glaucoma History of echocardiogram History of steroid therapy History of stress test Kidney stones Kidney stones Moderate persistent allergic asthma without complication Neuropathy Non-smoker Obesity KEZIA treated with BiPAP Osteoarthritis Osteopenia Prostate cancer Rheumatoid arthritis Shortness of breath on exertion Skin cancer Sleep apnea Wears glasses Home Medications risedronate 150 mg tablet 150 mg PO QMONTH BONES 11/25/20 [History Last Taken 11/11/20] hydroxychloroquine 200 mg tablet (Plaquenil) 200 mg PO DAILY 01/05/21 [History Last Taken Unknown] albuterol sulfate 90 mcg/actuation aerosol inhaler 2 inh inhalation Q6H PRN ASTHMA #3 ea 10/05/21 [Rx Last Taken Unknown] azelastine 137 mcg (0.1 %) nasal spray aerosol 2 spray intranasal BID 12/26/21 [History Last Taken Unknown] fluticasone 100 mcg-salmeterol 50 mcg/dose blistr powdr for inhalation (Advair Diskus) 1 inh inhalation BID 12/26/21 [History Last Taken Unknown] cholecalciferol (vitamin D3) 50 mcg (2,000 unit) capsule 50 mcg PO DAILY 12/27/21 [History Last Taken Unknown] budesonide-formoterol HFA 160 mcg-4.5 mcg/actuation aerosol inhaler (Symbicort) 2 inh inhalation BID #3 ea 03/22/22 [Rx Last Taken Unknown] montelukast 10 mg tablet 10 mg PO QPM #90 tabs 03/22/22 [Rx Last Taken Unknown] tiotropium bromide 1.25 mcg/actuation mist for inhalation (Spiriva Respimat) 2 inh inhalation DAILY BREATHING #3 device 03/22/22 [Rx Last Taken Unknown] cetirizine 10 mg capsule (Zyrtec) 10 mg PO DAILY PRN 05/16/22 [History Last Taken Unknown] flurbiprofen 100 mg tablet 100 mg PO TID PRN pain #90 tabs 05/16/22 [Rx Last Escobar en Unknown] gabapentin 100 mg capsule 300 mg PO QHS 05/16/22 [History Last Taken Unknown] leflunomide 20 mg tablet 20 mg PO DAILY 05/16/22 [History Last Taken Unknown] multivitamin (Multiple Vitamins tablet) 1 tab PO DAILY 05/16/22 [History Last Taken Unknown] Allergy/AdvReac Type Severity Reaction Status Date / Time gluten Allergy Food Verified 06/05/22 20:31 Allergy peanut Allergy Food Verified 06/05/22 20:31 Allergy yeast, dried [yeast] Allergy Food Verified 06/05/22 20:31 Allergy doxycycline AdvReac Hives Verified 06/05/22 20:31 environmental Allergy PT UNSURE Uncoded 06/05/22 20:31 OF REACTION Family History Mother Heart disease CHF atrial fib Sister Hypertension Surgical History H/O prostatectomy History of cardiac catheterization History of carpal tunnel release History of inguinal hernia repair History of left heart catheterization (07/23/18) History of removal of retained hardware History of rhinoplasty History of tonsillectomy History of total knee arthroplasty Hx of colonoscopy Hx of foot surgery Social History household members: spouse Smoking Status: Never smoker second hand exposure: No alcohol intake: never substance use type: does not use drea/catholic: Yazdanism seatbelt use: always ROS ROS Narrative No fever or chills. Has Charcot foot of his right lower extremity and wears a modified walking boot with that. All review of systems were negative except as mentioned above in the history of present illness and the other review of systems. Vital Signs Vital Signs Vital Signs: 06/05/22 20:31 06/05/22 22:20 06/06/22 01:54 Temperature 36.8 C Temperature Source Temporal Pulse Rate 81 79 Respiratory Rate 18 16 Blood Pressure 120/84 H 139/86 H 141/78 H Blood Pressure Mean 96 103 99 Pulse Ox 97 97 Oxygen Delivery Method Room Air Room Air Weight Weight: 97.522 kg Body Mass Index (BMI) 30.8 Physical Exam Const alert Constitutional Narrative: Uncomfortable. Writhing in pain. Grasping his right arm. HEENT normocephalic and hearing grossly normal bilaterally Resp normal respiratory effort, no retractions, no use of accessory muscles and clear to auscultation bilaterally Cardio regular rate, regular rhythm, S1 normal heart sound and S2 normal heart sound GI normal to inspection, nondistended, normoactive bowel sounds, soft to palpation, non-tender, non-distended and hepatosplenomegaly Extremity Extremity Narrative: Effusion of the right wrist most prominent in the dorsal radial side. Fluctuance noted. Walking boot on the right lower extremity Skin Skin Narrative: No rashes or bruises Neuro oriented x3, moves all extremities and no focal motor deficits Psych Mood & Affect: anxious Results Lab / Micro Data Result Diagrams: 06/05/22 22:35 06/05/22 22:35 Labs: Laboratory Results - last 24 hr 06/05/22 22:15: Fluid Crystals Cancelled, Fluid Crystal Source Cancelled, Fl Crystal Path Review Cancelled, Synovial Source Cancelled, Synovial Color Cancelled, Synovial Appearance Cancelled, Synovial Volume Cancelled, Synovial Viscosity Cancelled, Synovial WBC Cancelled, Synovial RBC Cancelled, Synovial Tot Cell Ct Cancelled, Synov Polynuclear WBCs Cancelled, Synov Mononuclear WBCs Cancelled, Synovial Neutrophils Cancelled, Synovial Lymphocytes Cancelled, Synovial Monocytes Cancelled, Synovial Plasma Cells Cancelled, Synovial Other Cells Cancelled, Synovial Polynuclear % Cancelled, Synovial Mononuclear % Cancelled, Synovial Path Comment Cancelled 06/05/22 22:35: WBC 12.3 H, RBC 4.55 L, Hgb 14.5, Hct 43.6, MCV 95.8 H, MCH 31.9, MCHC 33.3, RDW Std Deviation 44.4 H, RDW Coeff of José Luis 12.6, Plt Count 281, MPV 8.1, Immature Gran % (Auto) 0.700, Neut % (Auto) 65.4, Lymph % (Auto) 19.9, Sanders % (Auto) 9.1, Eos % (Auto) 4.2, Baso % (Auto) 0.7, Absolute Neuts (auto) 8.0 H, Absolute Lymphs (auto) 2.44, Nucleated RBC % 0, ESR 14 06/05/22 22:35: Sodium 139, Potassium 4.0, Chloride 106, Carbon Dioxide 28.0, Anion Gap 5, BUN 22 H, Creatinine 1.09, Estim Creat Clear Calc 62.32, Est GFR (MDRD) Af Amer 85, Est GFR (MDRD) Non-Af 70, BUN/Creatinine Ratio 20.2 H, Glucose 98, Calcium 9.5, C-React Prot Ext Range 56.60 H Micro: Microbiology 06/05/22 22:15 Fluid - Synovial (joint) Gram Stain - Final Radiology Impression Wrist X-Ray 06/05/22 21:47 IMPRESSION: 1. No acute osseous abnormalities. 2. Progression of degenerative change in the wrist with narrowing of the radiocarpal joint space. Electronically Signed: Dave Davis MD at 22:28 EDT , Assessment & Plan Assessment/Plan (1) Septic joint of right wrist: QUALIFIERS: Septic arthritis organism: due to unspecified organism Qualified Code(s): M00.9 - Pyogenic arthritis, unspecified PLAN: Suspected given the greenish fluid that was aspirated from the arthrocentesis and the fact that it did not get better with the cortisone injection that he received earlier with Dr. Jeffries. Additionally, the patient is immunocompromised and is at risk for infections. Is my suspicion, that patient likely had an infection before he had the joint injection. Less likely an acute flare of his rheumatoid arthritis nor crystal arthropathy as I would expect those to improve after the cortisone injection. Plan: * Patient received ceftriaxone in the emergency room and will continue with that daily. Also add vancomycin * Await cultures * Consult orthopedics and infectious disease * Pain control with oxycodone and hydromorphone for breakthrough pain. PLAN: Plan Chronic conditions * Rheumatoid arthritis: Continue with Plaquenil and leflunomide * Charcot foot of the right lower extremity: Patient follows with Dr. Guzman and [facility]. Continue with a walking boot as previously prescribed * Asthma: Not in exacerbation. Continue with budesonide, fluticasone/salmeterol and tiotropium * Osteopenia: May related with the patient's previous chronic use of steroids. Continue with cholecalciferol VTE prophylaxis: Subcutaneous LMWH Disposition: Anticipate the patient's hospitalization to range anywhere between 48 to 96 hours depending on what the results are from the cultures and what intervention may need to be performed. I did inform him and his that if he does require surgery it may be something where he may potentially need to be transferred to another institution. He was given the option to be transferred now, though its unclear if he would require any Surgery whatsoever, or stay here and wait on the results and the input of the specialist. They agreed to stay here. Charges/Coding Visit Charges Inpatient E&M: 36495 Init Hosp L3
--- NOTE | 2022-06-06 03:54 | NURSING ---
pt is unsure of his med list. states his knows his meds.
[2022-06-06] MEDS: Acetaminophen 500 MG Tablet 1000 MG PO ×3 (04:17→20:53)
[2022-06-06] MEDS: oxyCODONE 5 MG Tablet 10 MG PO ×3 (04:17→18:39)
[2022-06-06] MEDS: 0.9% Saline Lock 10 ML Syringe IV (04:22)
--- NOTE | 2022-06-06 04:30 | PHA.PHARE_ITS ---
Consult Pharmacy has been consulted to manage selected antiobiotic: Vancomycin Type of Consult: New start Suspected Infection: Sepsis Labs: Sodium 139 mmol/L (136-145) 06/05/22 22:35 Potassium 4.0 mmol/L (3.5-5.1) 06/05/22 22:35 Chloride 106 mmol/L (98-107) 06/05/22 22:35 Carbon Dioxide 28.0 mmol/L (21.0-32.0) 06/05/22 22:35 Anion Gap 5 (5-15) 06/05/22 22:35 BUN 22 mg/dL (7-18) H 06/05/22 22:35 Creatinine 1.09 mg/dL (0.70-1.30) 06/05/22 22:35 Est GFR (MDRD) Af Amer 85 mL/min (>60) 06/05/22 22:35 Est GFR (MDRD) Non-Af 70 mL/min (>60) 06/05/22 22:35 BUN/Creatinine Ratio 20.2 RATIO (10-20) H 06/05/22 22:35 Glucose 98 mg/dL (74-106) 06/05/22 22:35 Microbiology: Microbiology 06/05/22 22:15 Fluid - Synovial (joint) Gram Stain - Final Weight used for dosin.8 kg Estimated Creatinine Clearance: 70.4 Goal Trough: 15-20 mcg/mL Pharmacy Plan for Drug Dosing: Pharmacy Service will continue to monitor and adjust dosing as required. Medications Vancomycin HCl 2,000 mg/ (Sodium Chloride) 540 mls @ 250 mls/hr IV X1 ONE Stop: 06/06/22 06:39 Last Admin: 06/06/22 04:24 Dose: 250 mls/hr Vancomycin HCl 1,500 mg/ (Sodium Chloride) 530 mls @ 250 mls/hr IV Q12H [facility] Follow-Up Labs: Trough Vancomycin Labs to be done on [date and time ordered]: 06/07 @ 1600
[2022-06-06 06:49] LABS: Absolute Lymphocyte Count 1.92 X10^3/uL (0.83-4.51); Absolute Neutrophil Count 8.4 X10^3/uL (2.0-7.7); Basophil# 0.07 X10^3/uL; Basophil% 0.6 % (0-1); Eosinophil# 0.17 X10^3/uL; Eosinophils% 1.4 % (0-5); Hemoglobin 13.2 g/dL (13.0-16.5); Lymphocyte # 1.92 X10^3/ul (0.83-4.51); Lymphocyte % 16.3 % (19-41); Mean Corp Hgb Conc 33.8 g/dL (32-36); Mean Corpuscular Volume 94.7 fL (80-94); Mean Platelet Vol. 8.2 fl (6.2-12.0); Monocyte# 1.17 X10^3/uL; Monocyte% 9.9 % (0-10); NRBC Flagged by Analyzer 0 % (0-5); Neutrophil % 71.3 % (47-70); Platelet Count 242 K/mm3 (150-450); RBC Distribution Width CV 12.7 % (11.6-14.6); RBC Distribution Width SD 43.7 fl (35.1-43.9); Red Blood Count 4.12 M/mm3 (4.6-6.2); White Blood Count 11.8 K/mm3 (4.4-11.0)
[2022-06-06] MEDS: Budesonide Respules 0.5 MG/2 ML AMPUL.NEB. INHALATION ×2 (07:00→19:13)
[2022-06-06] MEDS: Ipratropium/Albuterol Sulfate 3 ML AMPUL.NEB INHALATION ×3 (07:00→19:13)
[2022-06-06 07:23] LABS: ALB/GLOB Ratio 0.8 RATIO (0.9-2.4); AST(SGOT) 17 U/L (15-37); Alanine Aminotransfer ALT/SGPT 20 U/L (16-61); Albumin, Serum 3.2 g/dL (3.2-5.0); Alkaline Phosphatase 112 U/L (45-117); Anion Gap 6 (5-15); BUN 21 mg/dL (7-18); BUN/Creat Ratio 20.4 RATIO (10-20); Calcium,Total 8.4 mg/dL (8.5-10.1); Chloride 106 mmol/L (98-107); Creatinine, Serum 1.03 mg/dL (0.70-1.30); EST Glomerular Filtration Rate 75 mL/min (>60); Est Glom Filt Rate - Afr Amer 91 mL/min (>60); Estimated Creatinine Clearance 65.95 ml/min; Globulin 3.9 g/dL (2.2-4.2); Glucose 99 mg/dL (74-106); Potassium 3.8 mmol/L (3.5-5.1); Protein, Total 7.1 g/dL (6.4-8.2); Sodium Level 137 mmol/L (136-145)
[2022-06-06] MEDS: Ensure Plus High Protein 120 ML LIQUID PO (07:36)
[2022-06-06] MEDS: Cholecalciferol (VIT D3) 25 MCG TABLET (1,000 UNITS) 50 MCG PO (07:37)
[2022-06-06] MEDS: Azelastine HCl NASAL.SRY 2 SPRAY NASAL ×2 (07:37→20:53)
[2022-06-06] MEDS: Multivitamins,Therapeutic Tablet 1 TABLET PO (07:37)
[2022-06-06] MEDS: Enoxaparin 40 MG/0.4 ML Syringe SC (07:37)
[2022-06-06] MEDS: Hydroxychloroquine 200 MG Tablet PO (07:37)
[2022-06-06] MEDS: Leflunomide 10 MG TABLET 20 MG PO (09:10)
--- NOTE | 2022-06-06 09:40 | PCM.PN.HOSP ---
Subjective Subjective Follow-up on acute right septic wrist joint: Patient was seen and examined. He complains of severe pain in his right wrist with moving the fingers. His right hands were elevated last night. Denies any fever or chills. Objective Data Objective Data Vital Signs: Vital Signs Temp Pulse Resp BP Pulse Ox O2 Del Method 98.1 F 71 18 100/58 L 94 Room Air 06/06/22 07:23 06/06/22 07:23 06/06/22 07:23 06/06/22 07:23 06/06/22 07:23 06/06/22 07:23 Oxygen Delivery Method Room Air Weight: 96.8 kg Body Mass Index (BMI) 30.6 Intake & Output: Intake and Output for Last 24 Hours 06/04/22 06/05/22 06/06/22 23:59 23:59 23:59 Intake Total 590 / 590 Balance 590 / 590 Lab / Micro Data Result Diagrams: 06/06/22 06:34 06/06/22 06:34 Labs: Laboratory Results - last 24 hr 06/05/22 22:15: Fluid Crystals Cancelled, Fluid Crystal Source Cancelled, Fl Crystal Path Review Cancelled, Synovial Source Cancelled, Synovial Color Cancelled, Synovial Appearance Cancelled, Synovial Volume Cancelled, Synovial Viscosity Cancelled, Synovial WBC Cancelled, Synovial RBC Cancelled, Synovial Tot Cell Ct Cancelled, Synov Polynuclear WBCs Cancelled, Synov Mononuclear WBCs Cancelled, Synovial Neutrophils Cancelled, Synovial Lymphocytes Cancelled, Synovial Monocytes Cancelled, Synovial Plasma Cells Cancelled, Synovial Other Cells Cancelled, Synovial Polynuclear % Cancelled, Synovial Mononuclear % Cancelled, Synovial Path Comment Cancelled 06/05/22 22:35: WBC 12.3 H, RBC 4.55 L, Hgb 14.5, Hct 43.6, MCV 95.8 H, MCH 31.9, MCHC 33.3, RDW Std Deviation 44.4 H, RDW Coeff of José Luis 12.6, Plt Count 281, MPV 8.1, Immature Gran % (Auto) 0.700, Neut % (Auto) 65.4, Lymph % (Auto) 19.9, Pocahontas % (Auto) 9.1, Eos % (Auto) 4.2, Baso % (Auto) 0.7, Absolute Neuts (auto) 8.0 H, Absolute Lymphs (auto) 2.44, Nucleated RBC % 0, ESR 14 06/05/22 22:35: Sodium 139, Potassium 4.0, Chloride 106, Carbon Dioxide 28.0, Anion Gap 5, BUN 22 H, Creatinine 1.09, Estim Creat Clear Calc 62.32, Est GFR (MDRD) Af Amer 85, Est GFR (MDRD) Non-Af 70, BUN/Creatinine Ratio 20.2 H, Glucose 98, Calcium 9.5, C-React Prot Ext Range 56.60 H 06/06/22 06:34: WBC 11.8 H, RBC 4.12 L, Hgb 13.2, Hct 39.0 L, MCV 94.7 H, MCH 32.0, MCHC 33.8, RDW Std Deviation 43.7, RDW Coeff of José Luis 12.7, Plt Count 242, MPV 8.2, Immature Gran % (Auto) 0.500, Neut % (Auto) 71.3 H, Lymph % (Auto) 16.3 L, [place]ontas % (Auto) 9.9, Eos % (Auto) 1.4, Baso % (Auto) 0.6, Absolute Neuts (auto) 8.4 H, Absolute Lymphs (auto) 1.92, Nucleated RBC % 0 06/06/22 06:34: Sodium 137, Potassium 3.8, Chloride 106, Carbon Dioxide 25.0, Anion Gap 6, BUN 21 H, Creatinine 1.03, Estim Creat Clear Calc 65.95, Est GFR (MDRD) Af Amer 91, Est GFR (MDRD) Non-Af 75, BUN/Creatinine Ratio 20.4 H, Glucose 99, Calcium 8.4 L, Total Bilirubin 0.90, AST 17, ALT 20, Alkaline Phosphatase 112, Total Protein 7.1, Albumin 3.2, Globulin 3.9, Albumin/Globulin Ratio 0.8 L Micro: Microbiology 06/05/22 22:15 Fluid - Synovial (joint) Gram Stain - Final Radiography Diagnostic Testing: Radiology Impression Wrist X-Ray 06/05/22 21:47 IMPRESSION: 1. No acute osseous abnormalities. 2. Progression of degenerative change in the wrist with narrowing of the radiocarpal joint space. Electronically Signed: Dave Davis MD at 22:28 EDT , Physical Exam Narrative Physical exam: General: Alert, Oriented x3, Cooperative, No apparent distress HEENT: Atraumatic Oral: Moist Mucosa Neck: Supple Lungs: Clear to auscultation Cardiovascular: HS I+II, regular, no murmurs Abdomen: Bowel Sounds Present, Soft, Non Tender Extremities: Dressing over the right wrist, ice pack, right hand elevated up Skin: No rashes, No breakdown Neurological: Grossly intact Psych/Mental Status: Appropriate Assessment & Plan Assessment/Plan (1) Septic joint of right wrist: QUALIFIERS: Septic arthritis organism: due to unspecified organism Qualified Code(s): M00.9 - Pyogenic arthritis, unspecified PLAN: Plan 1. Acute right wrist septic joint arthritis, remains about the same Patient has severe pain with moving the fingers X-ray of the right wrist on admission showed no acute osseous abnormalities; showed progression of degenerative changes in the wrist with narrowing of the radiocarpal joint space Synovitis fluid analysis showed a total cell count of 44,000 with 41,000 WBCs Right wrist arthrocentesis fluid still pending Continue on empiric IV ceftriaxone and vancomycin ID and orthopedics consulted 2. Rheumatoid arthritis, continue Plaquenil and leflunomide 3. Right foot Charcot joint, continue with walking boot 4. Asthma, not in acute exacerbation 5. DVT prophylaxis?Lovenox subcu Charges/Coding Visit Charges Inpatient E&M: 00928 Subs Hosp L2
--- NOTE | 2022-06-06 10:09 | PCM.CONS.GEN ---
Assessment & Plan Assessment/Plan (1) Septic joint of right wrist: QUALIFIERS: Septic arthritis organism: due to unspecified organism Qualified Code(s): M00.9 - Pyogenic arthritis, unspecified PLAN: Not clear if this is infectious in origin. Aspiration done in ED 06/05/22, gram stain neg. On empiric vanc/ceftriaxone, ortho to see. Will follow, thank you HPI Consult Data Date of Consult: 06/06/22 HPI Narrative Reason for Consultation: septic arthritis HPI Narrative: SHIVANI DENSON, is a 72 M with RA, reports 10 days progressive R wrist pain, redness, swelling, decreased ROM. Had a fall onto his hand about 3 weeks ago while weeding, but no break in the skin, wrist was a little sore. He is R handed. Sx started, then saw rheum 05/31 and had steroid injection into wrist but sx only worsened after that. Came to ED, aspiration done, admitted on vanc/ceftriaxone. Feeling about the same this AM. No fever. Full ROS performed and neg except as noted above. [facility] Medical History Arthritis Asbestos exposure Asthma BPH (benign prostatic hyperplasia) Cancer Cardiology follow-up encounter Carpal tunnel syndrome Cataracts, bilateral CPAP (continuous positive airway pressure) dependence DDD (degenerative disc disease), cervical Fatigue Gastric reflux Gastric ulcer GERD (gastroesophageal reflux disease) Glaucoma History of echocardiogram History of steroid therapy History of stress test Kidney stones Kidney stones Moderate persistent allergic asthma without complication Neuropathy Non-smoker Obesity KEZIA treated with BiPAP Osteoarthritis Osteopenia Prostate cancer Rheumatoid arthritis Shortness of breath on exertion Skin cancer Sleep apnea Wears glasses Home Medications risedronate 150 mg tablet 150 mg PO QMONTH BONES 11/25/20 [History Last Taken 05/13/22] hydroxychloroquine 200 mg tablet (Plaquenil) 200 mg PO DAILY arthritis 01/05/21 [History Last Taken Unknown] albuterol sulfate 90 mcg/actuation aerosol inhaler 2 inh inhalation Q6H PRN ASTHMA #3 ea 10/05/21 [Rx Last Taken Unknown] azelastine 137 mcg (0.1 %) nasal spray aerosol 2 spray intranasal BID breathing 12/26/21 [History Last Taken Unknown] fluticasone 100 mcg-salmeterol 50 mcg/dose blistr powdr for inhalation (Advair Diskus) 1 inh inhalation BID breathing 12/26/21 [History Last Taken Unknown] cholecalciferol (vitamin D3) 50 mcg (2,000 unit) capsule 50 mcg PO DAILY supplement 12/27/21 [History Last Taken Unknown] tiotropium bromide 1.25 mcg/actuation mist for inhalation (Spiriva Respimat) 2 inh inhalation DAILY BREATHING #3 device 03/22/22 [Rx Last Taken Unknown] cetirizine 10 mg capsule (Zyrtec) 10 mg PO DAILY PRN allergies 05/16/22 [History Last Taken Unknown] gabapentin 100 mg capsule 300 mg PO QHS pain 05/16/22 [History Last Taken Unknown] leflunomide 20 mg tablet 20 mg PO DAILY arthritis 05/16/22 [History Last Taken Unknown] multivitamin (Multiple Vitamins tablet) 1 tab PO DAILY supplement 05/16/22 [History Last Taken Unknown] budesonide-formoterol HFA 160 mcg-4.5 mcg/actuation aerosol inhaler (Symbicort) 2 inh inhalation BID breathing 06/06/22 [History Last Taken Unknown] flurbiprofen 100 mg tablet 100 mg PO TID pain 06/06/22 [History Last Taken Unknown] montelukast 10 mg tablet 10 mg PO QPM sinuses 06/06/22 [History Last Taken Unknown] Allergy/AdvReac Type Severity Reaction Status Date / Time gluten Allergy Food Verified 06/05/22 20:31 Allergy peanut Allergy Food Verified 06/05/22 20:31 Allergy yeast, dried [yeast] Allergy Food Verified 06/05/22 20:31 Allergy doxycycline AdvReac Hives Verified 06/05/22 20:31 environmental Allergy PT UNSURE Uncoded 06/06/22 03:56 OF REACTION Family History Mother Heart disease CHF atrial fib Sister Hypertension Surgical History H/O prostatectomy History of cardiac catheterization History of carpal tunnel release History of inguinal hernia repair History of left heart catheterization (07/23/18) History of removal of retained hardware History of rhinoplasty History of tonsillectomy History of total knee arthroplasty Hx of colonoscopy Hx of foot surgery Social History household members: spouse Smoking Status: Never smoker second hand exposure: No alcohol intake: never substance use type: does not use drea/confucianism: Episcopal seatbelt use: always Physical Exam Const alert, oriented x3 and no apparent distress General Appearance: cooperative HEENT normocephalic and head/scalp atraumatic Eyes PERRL and EOMs intact bilaterally Neck supple and No nodes Resp normal air movement and clear to auscultation bilaterally Cardio regular rate, regular rhythm and no murmurs GI soft to palpation, non-tender and non-distended Extremity Extremity Narrative: R wrist swelling, tenderness Skin no rashes or lesions noted Neuro CN's II-XII intact bilaterally Lab / Micro Data Attestation: I reviewed the patient's lab results. Result Diagrams: 06/06/22 06:34 06/06/22 06:34 Labs: Laboratory Results - last 24 hr 06/05/22 22:15: Fluid Crystals Cancelled, Fluid Crystal Source Cancelled, Fl Crystal Path Review Cancelled, Synovial Source Cancelled, Synovial Color Cancelled, Synovial Appearance Cancelled, Synovial Volume Cancelled, Synovial Viscosity Cancelled, Synovial WBC Cancelled, Synovial RBC Cancelled, Synovial Tot Cell Ct Cancelled, Synov Polynuclear WBCs Cancelled, Synov Mononuclear WBCs Cancelled, Synovial Neutrophils Cancelled, Synovial Lymphocytes Cancelled, Synovial Monocytes Cancelled, Synovial Plasma Cells Cancelled, Synovial Other Cells Cancelled, Synovial Polynuclear % Cancelled, Synovial Mononuclear % Cancelled, Synovial Path Comment Cancelled 06/05/22 22:35: WBC 12.3 H, RBC 4.55 L, Hgb 14.5, Hct 43.6, MCV 95.8 H, MCH 31.9, MCHC 33.3, RDW Std Deviation 44.4 H, RDW Coeff of José Luis 12.6, Plt Count 281, MPV 8.1, Immature Gran % (Auto) 0.700, Neut % (Auto) 65.4, Lymph % (Auto) 19.9, Piatt % (Auto) 9.1, Eos % (Auto) 4.2, Baso % (Auto) 0.7, Absolute Neuts (auto) 8.0 H, Absolute Lymphs (auto) 2.44, Nucleated RBC % 0, ESR 14 06/05/22 22:35: Sodium 139, Potassium 4.0, Chloride 106, Carbon Dioxide 28.0, Anion Gap 5, BUN 22 H, Creatinine 1.09, Estim Creat Clear Calc 62.32, Est GFR (MDRD) Af Amer 85, Est GFR (MDRD) Non-Af 70, BUN/Creatinine Ratio 20.2 H, Glucose 98, Calcium 9.5, C-React Prot Ext Range 56.60 H 06/06/22 06:34: WBC 11.8 H, RBC 4.12 L, Hgb 13.2, Hct 39.0 L, MCV 94.7 H, MCH 32.0, MCHC 33.8, RDW Std Deviation 43.7, RDW Coeff of José Luis 12.7, Plt Count 242, MPV 8.2, Immature Gran % (Auto) 0.500, Neut % (Auto) 71.3 H, Lymph % (Auto) 16.3 L, Piatt % (Auto) 9.9, Eos % (Auto) 1.4, Baso % (Auto) 0.6, Absolute Neuts (auto) 8.4 H, Absolute Lymphs (auto) 1.92, Nucleated RBC % 0 06/06/22 06:34: Sodium 137, Potassium 3.8, Chloride 106, Carbon Dioxide 25.0, Anion Gap 6, BUN 21 H, Creatinine 1.03, Estim Creat Clear Calc 65.95, Est GFR (MDRD) Af Amer 91, Est GFR (MDRD) Non-Af 75, BUN/Creatinine Ratio 20.4 H, Glucose 99, Calcium 8.4 L, Total Bilirubin 0.90, AST 17, ALT 20, Alkaline Phosphatase 112, Total Protein 7.1, Albumin 3.2, Globulin 3.9, Albumin/Globulin Ratio 0.8 L Micro: Microbiology 06/05/22 22:15 Fluid - Synovial (joint) Gram Stain - Final Radiology Impression Wrist X-Ray 06/05/22 21:47 IMPRESSION: 1. No acute osseous abnormalities. 2. Progression of degenerative change in the wrist with narrowing of the radiocarpal joint space. Electronically Signed: Dave Davis MD at 22:28 EDT ,
--- NOTE | 2022-06-06 11:27 | CASEMGMT ---
PAOLO OLMOS Assessment: Face to Face with pt for initial transition planning/care coordination assessment. PAOLO OLMOS introduced self and role at [facility], pt voices understanding and consents to assessment. Pt is A/O x4 and answers all questions appropriately at this time. Pt in bed, dozing off and on. Care providers, pharmacy, and demographics verified/updated. Admitting Dx: Septic Joint. PCP: Karla. Specialists: Mervin, Rheumatology; Thomas, Ortho; Manju, Ortho; Shaggyapjudith, Ortho; Sadaf, Cardiology, Mukesh- Urology. [facility]acy[facility]. Insurance: [employer]. Prescription Benefit: yes. LW/HPOA: Pt reports his as being POA. Advised the paperwork is not on file but encouraged to bring a copy in if desired. LNOK: Eliza Fragoso, ; Catherine Patino, Dtr. Living Arrangements: Pt lives with in a two story home. Pt reports bedroom and half bath downstairs. Shower is upstairs. Pt reports scooting up and down the stairs due to foot issues. Ramp in place outside of the home. Pt reports I in ADLs. Transportation: Pt denies driving since November. Pt's transports. DME/HHC/SNF: Pt reports the following DME: knee scooter, shower chair, walker, and grab bars. Pt denies any HHC including therapy currently or in the past. Pt denies any SNF stays. Pt states no concerns with going home at time of dc. Pt states no further concerns/needs. CM to follow. Advised pt to ask CM if any further question/concerns/needs arise, voices understanding. Pt Goal: Home. Plan: Home.
--- NOTE | 2022-06-06 19:33 | CON.PCM_ITS ---
Assessment & Plan Assessment/Plan (1) Reactive arthritis of wrist: PLAN: His diagnosis and treatment options were fully reviewed. Patient understands he does have an acute wrist process ongoing. This may or may not be an infectious process. This may be related to his rheumatoid arthritis and/or degenerative arthritis. Could be possibly gout. Infectious disease consult noted. Laboratory work, cultures, vital signs reviewed. At this point I would not recommend exploratory wrist surgery/I&D. Recommended continuing antibiotics as seen fit by the infectious disease doctor. Recommend continuing ice elevation and pain medication. Recommend being discharged to home when stable and pain controlled. 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 Patient understands and agrees. Orthopedic service will sign off. Can be renotified if needed. HPI Consult Data Date of Consult: 06/06/22 HPI Narrative Reason for Consultation: Requested by admitting physician HPI Narrative: SHIVANI DENSON, is a 72 M who presents with a longstanding history of right wrist problems. He has been seen by Dr. Jeffries at the [facility] rheumatology Center multiple times. He has had multiple cortisone injections into his right wrist. He states they normally are helpful. Patient did have a recent injection. It has not helped. He states last Sunday he had aggravated his wrist with use. Denies 1 specific injury. Last Sunday 6 days ago he had some dorsal swelling. By Sunday/Sunday his pain became progressively worse. He was to call the doctor on Sunday to let him know how he was doing. However he came to the emergency room instead. His pain was 10 out of 10. Pain now 6 out of 10. Denies fever or chills. Denies cuts or scrapes. He has had similar but not quite as severe pain in the past. Patient does have a history of neuropathy in his feet, Charcot joint right foot. He has had progressive arthritic pain in the right wrist. [facility] Medical History Arthritis Asbestos exposure Asthma BPH (benign prostatic hyperplasia) Cancer Cardiology follow-up encounter Carpal tunnel syndrome Cataracts, bilateral CPAP (continuous positive airway pressure) dependence DDD (degenerative disc disease), cervical Fatigue Gastric reflux Gastric ulcer GERD (gastroesophageal reflux disease) Glaucoma History of echocardiogram History of steroid therapy History of stress test Kidney stones Kidney stones Moderate persistent allergic asthma without complication Neuropathy Non-smoker Obesity KEZIA treated with BiPAP Osteoarthritis Osteopenia Prostate cancer Rheumatoid arthritis Shortness of breath on exertion Skin cancer Sleep apnea Wears glasses Home Medications risedronate 150 mg tablet 150 mg PO QMONTH BONES 11/25/20 [History Last Taken 05/13/22] hydroxychloroquine 200 mg tablet (Plaquenil) 200 mg PO DAILY arthritis 01/05/21 [History Last Taken Unknown] albuterol sulfate 90 mcg/actuation aerosol inhaler 2 inh inhalation Q6H PRN ASTHMA #3 ea 10/05/21 [Rx Last Taken Unknown] azelastine 137 mcg (0.1 %) nasal spray aerosol 2 spray intranasal BID breathing 12/26/21 [History Last Taken Unknown] fluticasone 100 mcg-salmeterol 50 mcg/dose blistr powdr for inhalation (Advair Diskus) 1 inh inhalation BID breathing 12/26/21 [History Last Taken Unknown] cholecalciferol (vitamin D3) 50 mcg (2,000 unit) capsule 50 mcg PO DAILY supplement 12/27/21 [History Last Taken Unknown] tiotropium bromide 1.25 mcg/actuation mist for inhalation (Spiriva Respimat) 2 inh inhalation DAILY BREATHING #3 device 03/22/22 [Rx Last Taken Unknown] cetirizine 10 mg capsule (Zyrtec) 10 mg PO DAILY PRN allergies 05/16/22 [History Last Taken Unknown] gabapentin 100 mg capsule 300 mg PO QHS pain 05/16/22 [History Last Taken Unknown] leflunomide 20 mg tablet 20 mg PO DAILY arthritis 05/16/22 [History Last Taken Unknown] multivitamin (Multiple Vitamins tablet) 1 tab PO DAILY supplement 05/16/22 [History Last Taken Unknown] budesonide-formoterol HFA 160 mcg-4.5 mcg/actuation aerosol inhaler (Symbicort) 2 inh inhalation BID breathing 06/06/22 [History Last Taken Unknown] flurbiprofen 100 mg tablet 100 mg PO TID pain 06/06/22 [History Last Taken Unknown] montelukast 10 mg tablet 10 mg PO QPM sinuses 06/06/22 [History Last Taken Unknown] Allergy/AdvReac Type Severity Reaction Status Date / Time gluten Allergy Food Verified 06/05/22 20:31 Allergy peanut Allergy Food Verified 06/05/22 20:31 Allergy yeast, dried [yeast] Allergy Food Verified 06/05/22 20:31 Allergy doxycycline AdvReac Hives Verified 06/05/22 20:31 environmental Allergy PT UNSURE Uncoded 06/06/22 03:56 OF REACTION Family History Mother Heart disease CHF atrial fib Sister Hypertension Surgical History H/O prostatectomy History of cardiac catheterization History of carpal tunnel release History of inguinal hernia repair History of left heart catheterization (07/23/18) History of removal of retained hardware History of rhinoplasty History of tonsillectomy History of total knee arthroplasty Hx of colonoscopy Hx of foot surgery Social History household members: spouse Smoking Status: Never smoker second hand exposure: No alcohol intake: never substance use type: does not use drea/congregational: Bahai seatbelt use: always ROS ROS Narrative Patient denies recent changes to ears nose or throat. He has been diagnosed recently with glaucoma. He denies problems with heart or lungs bowel or bladder function. He is admitted for right wrist pain. Denies other joint pain or sym ptoms beyond normal. Physical Exam Narrative Right wrist is currently elevated to an IV pole with ice. He does have some surjit elizabeth mild redness and swelling at the wrist. He has stiffness at the wrist which is not new. He has pain with wrist flexion extension 20 degrees. Pain with wrist radial ulnar deviation 10 degrees. He has full motion of the fingers and thumb without severe pain. Light touch sensation is intact. Pain is more dorsal than volar at the wrist. No pain at the shoulder or elbow. No adenopathy at the shoulder or elbow. Skin is intact about the hand and wrist. There is no obvious fluctuance at the wrist. Radial pulse is normal. Capillary refill is normal X-rays of the right wrist taken this admission shows severe degenerative changes of the carpus with cystic changes, sclerosis, osteophyte formation. No obvious acute signs of fractures dislocations or infection. Lab / Micro Data Result Diagrams: 06/06/22 06:34 06/06/22 06:34 Labs: Laboratory Results - last 24 hr 06/05/22 22:15: Fluid Crystals Cancelled, Fluid Crystal Source Cancelled, Fl Crystal Path Review Cancelled, Synovial Source Cancelled, Synovial Color Cancelled, Synovial Appearance Cancelled, Synovial Volume Cancelled, Synovial Viscosity Cancelled, Synovial WBC Cancelled, Synovial RBC Cancelled, Synovial Tot Cell Ct Cancelled, Synov Polynuclear WBCs Cancelled, Synov Mononuclear WBCs Cancelled, Synovial Neutrophils Cancelled, Synovial Lymphocytes Cancelled, Synovial Monocytes Cancelled, Synovial Plasma Cells Cancelled, Synovial Other Cells Cancelled, Synovial Polynuclear % Cancelled, Synovial Mononuclear % Cancelled, Synovial Path Comment Cancelled 06/05/22 22:35: WBC 12.3 H, RBC 4.55 L, Hgb 14.5, Hct 43.6, MCV 95.8 H, MCH 31.9, MCHC 33.3, RDW Std Deviation 44.4 H, RDW Coeff of José Luis 12.6, Plt Count 281, MPV 8.1, Immature Gran % (Auto) 0.700, Neut % (Auto) 65.4, Lymph % (Auto) 19.9, [place] % (Auto) 9.1, Eos % (Auto) 4.2, Baso % (Auto) 0.7, Absolute Neuts (auto) 8.0 H, Absolute Lymphs (auto) 2.44, Nucleated RBC % 0, ESR 14 06/05/22 22:35: Sodium 139, Potassium 4.0, Chloride 106, Carbon Dioxide 28.0, Anion Gap 5, BUN 22 H, Creatinine 1.09, Estim Creat Clear Calc 62.32, Est GFR (MDRD) Af Amer 85, Est GFR (MDRD) Non-Af 70, BUN/Creatinine Ratio 20.2 H, Glucose 98, Calcium 9.5, C-React Prot Ext Range 56.60 H 06/06/22 06:34: WBC 11.8 H, RBC 4.12 L, Hgb 13.2, Hct 39.0 L, MCV 94.7 H, MCH 32.0, MCHC 33.8, RDW Std Deviation 43.7, RDW Coeff of José Luis 12.7, Plt Count 242, MPV 8.2, Immature Gran % (Auto) 0.500, Neut % (Auto) 71.3 H, Lymph % (Auto) 16.3 L, [place] % (Auto) 9.9, Eos % (Auto) 1.4, Baso % (Auto) 0.6, Absolute Neuts (auto) 8.4 H, Absolute Lymphs (auto) 1.92, Nucleated RBC % 0 06/06/22 06:34: Sodium 137, Potassium 3.8, Chloride 106, Carbon Dioxide 25.0, Anion Gap 6, BUN 21 H, Creatinine 1.03, Estim Creat Clear Calc 65.95, Est GFR (MDRD) Af Amer 91, Est GFR (MDRD) Non-Af 75, BUN/Creatinine Ratio 20.4 H, Glucose 99, Calcium 8.4 L, Total Bilirubin 0.90, AST 17, ALT 20, Alkaline Phosphatase 112, Total Protein 7.1, Albumin 3.2, Globulin 3.9, Albumin/Globulin Ratio 0.8 L Micro: Microbiology 06/05/22 22:15 Fluid - Synovial (joint) Gram Stain - Final 06/05/22 22:15 Fluid - Synovial (joint) Body Fluid Culture - Preliminary No growth-Final to follow Radiology Impression Wrist X-Ray 06/05/22 21:47 IMPRESSION: 1. No acute osseous abnormalities. 2. Progression of degenerative change in the wrist with narrowing of the radiocarpal joint space. Electronically Signed: Dave Davis MD at 22:28 EDT ,
[2022-06-06] MEDS: Gabapentin 300 MG Capsule PO ×2 (20:53)
[2022-06-06] MEDS: Montelukast 10 MG Tablet PO (20:54)
[2022-06-07 03:40] VITALS: BP 120/75; PULSE 65; RESP 18; TEMP 36.6; O2SAT 95
[2022-06-07] MEDS: Acetaminophen 500 MG Tablet 1000 MG PO ×2 (04:27→13:28)
[2022-06-07] MEDS: 0.9% Saline Lock 10 ML Syringe IV (08:03)
[2022-06-07 08:47] LABS: Absolute Lymphocyte Count 1.57 X10^3/uL (0.83-4.51); Absolute Neutrophil Count 4.3 X10^3/uL (2.0-7.7); Basophil# 0.05 X10^3/uL; Basophil% 0.7 % (0-1); Eosinophil# 0.37 X10^3/uL; Eosinophils% 5.4 % (0-5); Hemoglobin 13.3 g/dL (13.0-16.5); Lymphocyte # 1.57 X10^3/ul (0.83-4.51); Lymphocyte % 22.8 % (19-41); Mean Corp Hgb Conc 33.3 g/dL (32-36); Mean Corpuscular Hgb 31.7 pg (27.0-32.0); Mean Corpuscular Volume 95.5 fL (80-94); Mean Platelet Vol. 8.2 fl (6.2-12.0); Monocyte# 0.62 X10^3/uL; NRBC Flagged by Analyzer 0 % (0-5); Neutrophil # 4.26 X10^3/uL (2.7-7.7); Neutrophil % 61.7 % (47-70); Platelet Count 235 K/mm3 (150-450); RBC Distribution Width CV 12.8 % (11.6-14.6); RBC Distribution Width SD 44.8 fl (35.1-43.9); Red Blood Count 4.19 M/mm3 (4.6-6.2); White Blood Count 6.9 K/mm3 (4.4-11.0)
[2022-06-07] MEDS: Enoxaparin 40 MG/0.4 ML Syringe SC (09:02)
[2022-06-07 09:08] LABS: ALB/GLOB Ratio 0.8 RATIO (0.9-2.4); AST(SGOT) 19 U/L (15-37); Alanine Aminotransfer ALT/SGPT 18 U/L (16-61); Alkaline Phosphatase 100 U/L (45-117); Anion Gap 3 (5-15); BUN 18 mg/dL (7-18); BUN/Creat Ratio 18.7 RATIO (10-20); Calcium,Total 8.8 mg/dL (8.5-10.1); Chloride 107 mmol/L (98-107); Creatinine, Serum 0.96 mg/dL (0.70-1.30); EST Glomerular Filtration Rate 81 mL/min (>60); Est Glom Filt Rate - Afr Amer 98 mL/min (>60); Estimated Creatinine Clearance 70.76 ml/min; Glucose 89 mg/dL (74-106); Potassium 3.9 mmol/L (3.5-5.1); Sodium Level 136 mmol/L (136-145)
[2022-06-07] MEDS: Multivitamins,Therapeutic Tablet 1 TABLET PO (09:09)
[2022-06-07] MEDS: Hydroxychloroquine 200 MG Tablet PO (09:09)
[2022-06-07] MEDS: Cholecalciferol (VIT D3) 25 MCG TABLET (1,000 UNITS) 50 MCG PO (09:10)
[2022-06-07] MEDS: Leflunomide 10 MG TABLET 20 MG PO (09:11)
[2022-06-07] MEDS: Azelastine HCl NASAL.SRY 2 SPRAY NASAL (09:12)
[2022-06-07] MEDS: FLU VACC QS2022-23(6MOS UP)/PF 60 MCG/0.5 ML SYRINGE IM (09:13)
[2022-06-07 09:27] VITALS: BP 135/71; PULSE 80; RESP 18; TEMP 36.6; O2SAT 96
[2022-06-07 10:00] VITALS: BP 135/71; PULSE 68; RESP 20; TEMP 36.6; O2SAT 96
[2022-06-07] MEDS: Ipratropium/Albuterol Sulfate 3 ML AMPUL.NEB INHALATION (10:10)
[2022-06-07] MEDS: Budesonide Respules 0.5 MG/2 ML AMPUL.NEB. INHALATION (10:11)
[2022-06-07 10:51] VITALS: PULSE 68; RESP 20
[2022-06-07 13:39] VITALS: BP 118/70; PULSE 73; RESP 20; TEMP 36.6; O2SAT 96
--- NOTE | 2022-06-07 14:20 | PCM.PN.ID ---
Physical Exam Narrative Feeling better, wrist still sore but less swollen Const alert and no apparent distress Resp normal air movement and clear to auscultation bilaterally Cardio regular rate and regular rhythm GI soft to palpation, non-tender and non-distended Skin Skin Narrative: R wrist sore, not red ID ID: Route of nutrition/ use of supplements: [] Nutritional Intake: [] IV Site: [] Hurtado Catheter: [] Assessment & Plan Assessment/Plan (1) Septic joint of right wrist: QUALIFIERS: Septic arthritis organism: due to unspecified organism Qualified Code(s): M00.9 - Pyogenic arthritis, unspecified PLAN: Not clear if this is infectious in origin. Aspiration done in ED 06/05/22, gram stain neg. On empiric vanc/ceftriaxone, ortho has seen. Has outpt rheum followup. Ok for home with 10 days linezolid po, wrote rx. Will follow as needed
--- NOTE | 2022-06-07 14:58 | DCINST_ITS ---
Discharge Instructions Diet Discharge Diet: 2000 mg Sodium Diet Activity Discharge Activity: Return to Normal Activity Follow Up Care Test Results: Test results from this visit will be discussed in further detail at your follow- up appointment, if applicable. Discharge Plan Admission Admit Date/Time: 06/06/22 02:21 Primary Reason for Your Visit: Acute septic arthritis of the right wrist Attending Provider: rEi Vega Primary Care Provider: Ganga Acosta Consulting Providers: Rc Cordova ; Jean-Paul Gomes ; Ayan Miller Instructions Additional Instructions / Restrictions: Keep your right hand elevated Follow-up with [facility] within 1 to 2-weeks Complete your antibiotics Discharge Orders/Prescriptions Prescriptions: New linezolid 600 mg tablet 600 mg PO Q12H 10 Days Qty: 20 0RF montelukast 10 mg Tablet 10 mg PO QHS Qty: 0 0RF Continued albuterol sulfate 90 mcg/actuation HFA aerosol inhaler 2 inh inhalation Q6H PRN (Reason: ASTHMA) Qty: 3 3RF fluticasone propion-salmeterol [Advair Diskus] 100-50 mcg/dose blister with device 1 inh inhalation BID azelastine 137 mcg (0.1 %) aerosol,spray 2 spray intranasal BID Rx Instructions: administer into each nostril Spiriva Respimat 1.25 mcg/actuation mist 2 inh INHALATION DAILY Qty: 3 3RF gabapentin 100 mg capsule 300 mg PO QHS leflunomide 20 mg tablet 20 mg PO DAILY multivitamin [Multiple Vitamins] Tablet 1 tab PO DAILY Zyrtec 10 mg capsule 10 mg PO DAILY PRN (Reason: allergies) risedronate 150 MG tablet 150 mg PO QMONTH Hold Instructions: Resume on 10/14/21. Rx Instructions: first day of the month hydroxychloroquine [Plaquenil] 200 mg Tablet 200 mg PO DAILY flurbiprofen 100 mg tablet 100 mg PO TID montelukast 10 mg tablet 10 mg PO QPM budesonide-formoterol [Symbicort] 160-4.5 mcg/actuation HFA aerosol inhaler 2 inh inhalation BID No Action cholecalciferol (vitamin D3) 50 mcg (2,000 unit) capsule 50 mcg PO DAILY Referrals / Follow Up: Ganga Acosta DO [Primary Care Provider] - In 1 Week Disposition Disposition (needs filled in before D/C Order can be placed): Home, Self Care
--- NOTE | 2022-06-07 15:04 | PCM.DC.SUM ---
Providers Date of Admission: 06/06/22 Date of Discharge: 06/07/22 Primary Care Physician: Dr. Ganga Acosta, Consultations 06/06/22 03:53 Consult: Infectious Disease Routine Consulting Provider: Jean-Paul Gomes Reason for Consult: septic joint of right wrist. EMERGENT Consult: No Notified: Yes Date Notified: 06/06/22 Time Notified: 06:26 Method of Notification: Answering Service Consult: Orthopedics Routine Consulting Provider: Rc Cordova Reason for Consult: septic joint of right wrist. EMERGENT Consult: No Notified: Yes Date Notified: 06/06/22 Time Notified: 02:25 Method of Notification: ED Physician Initiated Reason For Visit: SEPTIC JOINT Diagnosis Discharge Diagnosis (1) Septic joint of right wrist: Status: Acute Code(s): M00.9 - Pyogenic arthritis, unspecified Qualifiers: Septic arthritis organism: due to unspecified organism Qualified Code(s): M00.9 - Pyogenic arthritis, unspecified Plan 1. Acute right wrist septic joint arthritis 2. Rheumatoid arthritis 3. Right foot Charcot joint 4. Asthma Medications at Discharge Home Medications risedronate 150 mg tablet 150 mg PO QMONTH BONES 11/25/20 hydroxychloroquine 200 mg tablet (Plaquenil) 200 mg PO DAILY arthritis 01/05/21 albuterol sulfate 90 mcg/actuation aerosol inhaler 2 inh inhalation Q6H PRN ASTHMA #3 ea 10/05/21 azelastine 137 mcg (0.1 %) nasal spray aerosol 2 spray intranasal BID breathing 12/26/21 fluticasone 100 mcg-salmeterol 50 mcg/dose blistr powdr for inhalation (Advair Diskus) 1 inh inhalation BID breathing 12/26/21 cholecalciferol (vitamin D3) 50 mcg (2,000 unit) capsule 50 mcg PO DAILY supplement 12/27/21 tiotropium bromide 1.25 mcg/actuation mist for inhalation (Spiriva Respimat) 2 inh inhalation DAILY BREATHING #3 device 03/22/22 cetirizine 10 mg capsule (Zyrtec) 10 mg PO DAILY PRN allergies 05/16/22 gabapentin 100 mg capsule 300 mg PO QHS pain 05/16/22 leflunomide 20 mg tablet 20 mg PO DAILY arthritis 05/16/22 multivitamin (Multiple Vitamins tablet) 1 tab PO DAILY supplement 05/16/22 budesonide-formoterol HFA 160 mcg-4.5 mcg/actuation aerosol inhaler (Symbicort) 2 inh inhalation BID breathing 06/06/22 flurbiprofen 100 mg tablet 100 mg PO TID pain 06/06/22 montelukast 10 mg tablet 10 mg PO QPM sinuses 06/06/22 linezolid 600 mg tablet 600 mg PO Q12H 10 days #20 tabs 06/07/22 montelukast 10 mg tablet 10 mg PO QHS #0 tabs 06/07/22 Hospital Course Operations None Procedures None Summary of Care Provided Minutes Spent on Discharge: 40 Hospital Course: 72-year-old with multiple comorbidities including rheumatoid arthritis who presented with right wrist pain and swelling. Patient was seen earlier on in the [facility] and felt to have a rheumatoid arthritis flare. He did receive injection to his right wrist. His right wrist swelling and pain however got worse and he presented to the emergency room. He underwent arthrocentesis that had drainage fluid aspirated and sent off. Gram stain was negative for any organisms. There was too little of fluid to be sent off for crystals. Orthopedics was consulted in the emergency room. Infectious disease was also consulted. [facility] and managed on IV vancomycin and Zosyn. His arthrocentesis cultures showed no growth. Patient's right wrist swelling got improved. He was discharged home on 10 more days of linezolid. He will follow-up with his primary sterilization specialist in the outpatient within a week. Physical Exam Narrative Physical exam: General: Alert, Oriented x3, Cooperative, No apparent distress HEENT: Atraumatic Oral: Moist Mucosa Neck: Supple Lungs: Clear to auscultation Cardiovascular: HS I+II, regular, no murmurs Abdomen: Bowel Sounds Present, Soft, Non Tender Extremities: Right wrist swelling and erythema much improved, able to move the hands. Skin: No rashes, No breakdown Neurological: Grossly intact Psych/Mental Status: Appropriate Weight / BMI Weight Weight: 96.8 kg Body Mass Index (BMI) 30.6 ABG / Lab / Microbiology Data Result Diagrams: 06/07/22 08:10 06/07/22 08:10 Laboratory: Laboratory Results - last 24 hr 06/07/22 08:10: WBC 6.9, RBC 4.19 L, Hgb 13.3, Hct 40.0, MCV 95.5 H, MCH 31.7, MCHC 33.3, RDW Std Deviation 44.8 H, RDW Coeff of José Luis 12.8, Plt Count 235, MPV 8.2, Immature Gran % (Auto) 0.400, Neut % (Auto) 61.7, Lymph % (Auto) 22.8, [place] % (Auto) 9.0, Eos % (Auto) 5.4 H, Baso % (Auto) 0.7, Absolute Neuts (auto) 4.3, Absolute Lymphs (auto) 1.57, Nucleated RBC % 0 06/07/22 08:10: Sodium 136, Potassium 3.9, Chloride 107, Carbon Dioxide 26.0, Anion Gap 3 L, BUN 18, Creatinine 0.96, Estim Creat Clear Calc 70.76, Est GFR (MDRD) Af Amer 98, Est GFR (MDRD) Non-Af 81, BUN/Creatinine Ratio 18.7, Glucose 89, Calcium 8.8, Total Bilirubin 0.70, AST 19, ALT 18, Alkaline Phosphatase 100, Total Protein 7.0, Albumin 3.0 L, Globulin 4.0, Albumin/Globulin Ratio 0.8 L Microbiology: Microbiology 06/05/22 22:15 Fluid - Synovial (joint) Gram Stain - Final 06/05/22 22:15 Fluid - Synovial (joint) Body Fluid Culture - Preliminary No growth-Final to follow D/C Instructions Discharge Diet: 2000 mg Sodium Diet Meaningful Use Info Meaningful Use Diagnoses (Choose all that apply): None applicable Discharge Plan Admission Admit Date/Time: 06/06/22 02:21 Primary Reason for Your Visit: Acute septic arthritis of the right wrist Attending Provider: Eri Vega Primary Care Provider: Ganga Acosta Consulting Providers: Rc Cordova ; Jean-Paul Gomes ; Ayan Miller Instructions Additional Instructions / Restrictions: Keep your right hand elevated Follow-up with [facility] within 1 to 2-weeks Complete your antibiotics Discharge Orders/Prescriptions Prescriptions: New linezolid 600 mg tablet 600 mg PO Q12H 10 Days Qty: 20 0RF montelukast 10 mg Tablet 10 mg PO QHS Qty: 0 0RF Continued albuterol sulfate 90 mcg/actuation HFA aerosol inhaler 2 inh inhalation Q6H PRN (Reason: ASTHMA) Qty: 3 3RF fluticasone propion-salmeterol [Advair Diskus] 100-50 mcg/dose blister with device 1 inh inhalation BID azelastine 137 mcg (0.1 %) aerosol,spray 2 spray intranasal BID Rx Instructions: administer into each nostril Spiriva Respimat 1.25 mcg/actuation mist 2 inh INHALATION DAILY Qty: 3 3RF gabapentin 100 mg capsule 300 mg PO QHS leflunomide 20 mg tablet 20 mg PO DAILY multivitamin [Multiple Vitamins] Tablet 1 tab PO DAILY Zyrtec 10 mg capsule 10 mg PO DAILY PRN (Reason: allergies) risedronate 150 MG tablet 150 mg PO QMONTH Hold Instructions: Resume on 10/14/21. Rx Instructions: first day of the month hydroxychloroquine [Plaquenil] 200 mg Tablet 200 mg PO DAILY flurbiprofen 100 mg tablet 100 mg PO TID montelukast 10 mg tablet 10 mg PO QPM budesonide-formoterol [Symbicort] 160-4.5 mcg/actuation HFA aerosol inhaler 2 inh inhalation BID No Action cholecalciferol (vitamin D3) 50 mcg (2,000 unit) capsule 50 mcg PO DAILY Referrals / Follow Up: Ganga Acosta DO [Primary Care Provider] - In 1 Week Disposition Disposition (needs filled in before D/C Order can be placed): Home, Self Care Charges/Coding Visit Charges Inpatient E&M: 62420 Disch Hosp
--- NOTE | 2022-06-07 15:34 | CASEMGMT ---
PAOLO CM call to Graciela Schmidt. Prasanth advised the co-pay for Linezolid is $7.50. Pt advised. Pt provided LW/HPOA paperwork. Copies made and will be placed in chart.
--- NOTE | 2022-06-07 16:23 | NURSING ---
agree with cliniCAL assessment today of student mallory velez. and charting all reviewed
== END 2022-06-07 16:53 | disposition home or self-care (01) | DRG 550 ==
LOC: ED 23:23 → MS3 06-06 07:04
PROVIDERS: Emergency Provider Emergency Medicine; PCP Family Medicine; Visit Provider Internal Medicine
DX: M00.9 Pyogenic arthritis, unspecified (principal); D84.9 Immunodeficiency, unspecified; M06.9 Rheumatoid arthritis, unspecified; E66.9 Obesity, unspecified; M14.671 Charcot's joint, right ankle and foot; J45.909 Unspecified asthma, uncomplicated; K21.9 Gastro-esophageal reflux disease without esophagitis; G47.33 Obstructive sleep apnea (adult) (pediatric); H40.9 Unspecified glaucoma; M85.80 Other specified disorders of bone density and structure, unspecified site; Z23 Encounter for immunization; N40.0 Benign prostatic hyperplasia without lower urinary tract symptoms; Z79.51 Long term (current) use of inhaled steroids; Z79.83 Long term (current) use of bisphosphonates; Z68.30 Body mass index [BMI] 30.0-30.9, adult
CPT/HCPCS: 20610; 36415; 73110; 80048; 80053; 85025; 85652; 86140; 87070; 87075; 87205; 94640; 96365; 96366; 96367; 96372; 96375; 96376; 97161; 97166; 97802; 99218; 99284; G0008; J7040; J7050; 90686; A4216; G0378

== ENCOUNTER → 2022-06-12 | Outpatient (CLI) | payer MEDICARE, SELFPAY ==
[2022-06-14 16:08] LABS: Albumin 3.3 g/dL (2.9-4.4); Alpha-1-Globulins 0.3 g/dL (0.0-0.4); Gamma Globulin 1.2 g/dL (0.4-1.8); Immunoglobulin A 287 mg/dL (61-437); Immunoglobulin G 1255 mg/dL (603-1613); Immunoglobulin M 96 mg/dL (15-143); PROEL- TOTAL PROTEIN 6.9 g/dL (6.0-8.5)
== END | disposition home or self-care (01) ==
PROVIDERS: PCP Family Medicine; Referring Provider Psychiatry & Neurology Neurology; Visit Provider Psychiatry & Neurology Neurology
DX: G62.9 Polyneuropathy, unspecified (principal)
CPT/HCPCS: 36415; 82784; 84165; 86334; 86335

== ENCOUNTER → 2022-08-24 | Outpatient (CLI) | payer MEDICARE, SELFPAY ==
[2022-08-24 12:37] LABS: PSA,Total- Diagnostic < 0.01 ng/mL (0.0-4.0)
== END | disposition home or self-care (01) ==
LOC: MTLAB 10:41
PROVIDERS: PCP Family Medicine; Referring Provider Urology; Visit Provider Urology
DX: C61 Malignant neoplasm of prostate (principal)
CPT/HCPCS: 36415; 84153

== ENCOUNTER 2022-09-30 09:55 | Emergency (ER) | payer MEDICARE, SELFPAY ==
[2022-09-30] VITALS (10 sets, daily range): BP systolic 118–138; BP diastolic 64–95; PULSE 78–101; RESP 16–18; TEMP 36.1–37.2; O2SAT 93–99; BMI 31.5
--- NOTE | 2022-09-30 10:26 | EDS_ITS ---
HPI History of Present Illness Chief Complaint: General Illness Informant: patient Onset/Context/Timing Onset: Days (3) Context: Sudden Onset Timing: Continuous Quality: Weakness Location: Generalized Worsened by: Nothing Relieved by: Tylenol, Advil Associated Symptoms Associated Symptoms: Rhinorrhea Narrative Narrative: Patient presents with nausea, vomiting, and diarrhea that has been constant for the past 3 days. Patient admits to fevers and chills. Patient states his temperature was up to 101.3. Patient denies any hematemesis or coffee-ground emesis. Patient denies any melena or hematochezia. Patient admits to some mild diffuse abdominal pain. Patient states he feels weak all over. Patient states that Tylenol and Advil have been helping with his fever but his fever returns as soon as the medicine wears off. Patient states nothing makes his symptoms any worse. Patient also admits to a headache. Patient denies any cough. Patient admits to some rhinorrhea. [facility] Medical History Arthritis Asbestos exposure Asthma BPH (benign prostatic hyperplasia) Cancer Cardiology follow-up encounter Carpal tunnel syndrome Cataracts, bilateral CPAP (continuous positive airway pressure) dependence DDD (degenerative disc disease), cervical Fatigue Gastric reflux Gastric ulcer GERD (gastroesophageal reflux disease) Glaucoma History of echocardiogram History of steroid therapy History of stress test Kidney stones Kidney stones Moderate persistent allergic asthma without complication Neuropathy Non-smoker Obesity KEZIA treated with BiPAP Osteoarthritis Osteopenia Prostate cancer Rheumatoid arthritis Shortness of breath on exertion Skin cancer Sleep apnea Wears glasses Home Medications risedronate 150 mg tablet 150 mg PO QMONTH BONES 11/25/20 [History Last Taken 05/13/22] hydroxychloroquine 200 mg tablet (Plaquenil) 200 mg PO DAILY arthritis 01/05/21 [History Last Taken Unknown] albuterol sulfate 90 mcg/actuation aerosol inhaler 2 inh inhalation Q6H PRN ASTHMA #3 ea 10/05/21 [Rx Last Taken Unknown] azelastine 137 mcg (0.1 %) nasal spray aerosol 2 spray intranasal BID breathing 12/26/21 [History Last Taken Unknown] cholecalciferol (vitamin D3) 50 mcg (2,000 unit) capsule 50 mcg PO DAILY supplement 12/27/21 [History Last Taken Unknown] tiotropium bromide 1.25 mcg/actuation mist for inhalation (Spiriva Respimat) 2 inh inhalation DAILY BREATHING #3 device 03/22/22 [Rx Last Taken Unknown] cetirizine 10 mg capsule (Zyrtec) 10 mg PO DAILY PRN allergies 05/16/22 [History Last Taken Unknown] leflunomide 20 mg tablet 20 mg PO DAILY arthritis 05/16/22 [History Last Taken Unknown] multivitamin (Multiple Vitamins tablet) 1 tab PO DAILY supplement 05/16/22 [History Last Taken Unknown] budesonide-formoterol HFA 160 mcg-4.5 mcg/actuation aerosol inhaler (Symbicort) 2 inh inhalation BID breathing 06/06/22 [History Last Taken Unknown] flurbiprofen 100 mg tablet 100 mg PO TID pain 06/06/22 [History Last Taken Unknown] montelukast 10 mg tablet 10 mg PO QPM sinuses 06/06/22 [History Last Taken Unknown] linezolid 600 mg tablet 600 mg PO Q12H 10 days #20 tabs 06/07/22 [Rx Last Taken Unknown] montelukast 10 mg tablet 10 mg PO QHS #0 tabs 06/07/22 [Rx Last Taken Unknown] fluticasone propionate 50 mcg/actuation nasal spray,suspension 2 spray intranasal DAILY #18.2 mL 09/18/22 [Rx Last Taken Unknown] gabapentin 100 mg capsule 400 mg PO QHS pain 09/18/22 [History Last Taken Unknown] hydrocodone-acetaminophen 5-325mg 5mg-325mg 1 tab PO Q6H PRN PRN Pain 3 days #10 TABLETS 09/30/22 [Rx Last Taken Unknown] Allergy/AdvReac Type Severity Reaction Status Date / Time gluten Allergy Food Verified 09/30/22 09:59 Allergy peanut Allergy Food Verified 09/30/22 09:59 Allergy yeast, dried [yeast] Allergy Food Verified 09/30/22 09:59 Allergy doxycycline AdvReac Hives Verified 09/30/22 09:59 environmental Allergy PT UNSURE Uncoded 09/30/22 09:59 OF REACTION Family History Mother Heart disease CHF atrial fib Sister Hypertension Surgical History H/O prostatectomy History of cardiac catheterization History of carpal tunnel release History of inguinal hernia repair History of left heart catheterization (07/23/18) History of removal of retained hardware History of rhinoplasty History of tonsillectomy History of total knee arthroplasty Hx of colonoscopy Hx of foot surgery Social History household members: spouse Smoking Status: Never smoker second hand exposure: No alcohol intake: never substance use type: does not use drea/temple: [employer] seatbelt use: always ROS ROS ED Constitutional Constitutional ED: Reports chills and fever(s) Eyes Eyes: Denies blurry vision or change in vision ENT ENT ED: Reports rhinorrhea; Denies sore throat Cardiovascular Cardiovascular: Denies chest pain or palpitations Respiratory/Chest Respiratory/Chest: Denies cough or dyspnea Gastrointestinal Gastrointestinal: Reports abdominal pain, diarrhea, nausea and vomiting Genitourinary Genitourinary ED: Denies dysuria or hematuria Musculoskeletal Musculoskeletal: Denies back pain or neck pain Integumentary Denies abscess or rash Neurologic Neurologic: Reports headache(s) and weakness Allergic/Immunologic Allergic/Immunologic ED: Denies mouth swelling or urticaria EXAM Physical Exam Const Vital Signs: 09/30/22 09:57 09/30/22 10:07 09/30/22 09:59 Temperature 98.3 F 97 F L Temperature Source Temporal Temporal Pulse Rate 101 H 78 Respiratory Rate 18 16 Respiratory Effort Normal Respiratory Pattern Normal Blood Pressure 121/95 H 134/78 H Blood Pressure Mean 103 96 Pulse Ox 93 98 Oxygen Delivery Method Room Air Room Air 09/30/22 11:00 09/30/22 12:00 09/30/22 13:00 Temperature 97.8 F 97.8 F 97.9 F Temperature Source Temporal Temporal Temporal Pulse Rate 78 89 89 Respiratory Rate 16 18 18 Respiratory Effort Respiratory Pattern Blood Pressure 120/64 126/78 H 138/78 H Blood Pressure Mean 82 94 98 Pulse Ox 99 99 99 Oxygen Delivery Method Room Air Room Air Room Air 09/30/22 14:00 09/30/22 15:00 09/30/22 16:00 Temperature 98.9 F 97.8 F 98.4 F Temperature Source Temporal Temporal Temporal Pulse Rate 91 78 89 Respiratory Rate 18 16 16 Respiratory Effort Respiratory Pattern Blood Pressure 132/64 H 128/78 H 118/76 Blood Pressure Mean 86 94 90 Pulse Ox 99 98 98 Oxygen Delivery Method Room Air Room Air Room Air 09/30/22 17:00 Temperature 97.8 F Temperature Source Temporal Pulse Rate 78 Respiratory Rate 16 Respiratory Effort Respiratory Pattern Blood Pressure 134/78 H Blood Pressure Mean 96 Pulse Ox 99 Oxygen Delivery Method Room Air Positive well nourished and well developed General Appearance ED: well developed and NAD HEENT Reports dry mucous membranes Mouth ED: Yes dry mucous membranes Mouth: dry mucous membranes Eyes PERRL and EOMs intact bilaterally Neck supple and no JVD Resp normal respiratory effort and clear to auscultation bilaterally Cardio regular rate and regular rhythm GI normal to inspection, nondistended, normoactive bowel sounds Palpation: soft and tender epigastric, LLQ, RLQ, LUQ, RUQ, periumbilical and suprapubic; Negative for guarding or rebound tenderness present Extremity normal to inspection General Extremety ED: Negative for edema or tenderness General Extremity: Negative for edema Neuro oriented x3, CN's II-XII intact bilaterally and no sensory deficits noted Sensorium / Orientation: alert Motor Exam: general weakness Psych mental status grossly normal Skin no rashes or lesions noted MDM MDM MDM Narrative Medical decision making narrative: Differential diagnosis includes sepsis, bowel obstruction, perforation, appendicitis, pancreatitis, COVID, influenza, pneumonia, cardiac ischemia, or other viral infection. EKG will be obtained to assess for cardiac ischemia. CBC will be obtained to assess for leukocytosis and anemia. Comprehensive metabolic profile will be obtained to assess for hepatic function, renal function, and electrolyte abnormality. Lipase will be obtained to assess for pancreatitis. CT scan of the abdomen pelvis will be obtained to assess for bowel obstruction, appendicitis, perforation. COVID-19 rapid antigen will be obtained to assess for COVID infection. Influenza AMB antigens will be obtained to assess for influenza infection. Blood cultures will be obtained to assess for sepsis. Lactate will be obtained to help assess for sepsis. Chest x-ray will be obtained to assess for pneumonia. Lab Data Attestation: I reviewed the patient's lab results. Lab results narrative: CBC was reviewed and showed a mild leukocytosis of 11.8. Comprehensive metabolic profile was reviewed and showed a mild hypokalemia of 3.2. BUN was 35 and creatinine was 1.39. These are slightly increased from previous results. Lactate was reviewed and was 2.0. Repeat lactate was normal at 1.9. Lipase was reviewed and was normal at 95. Urinalysis shows a leukocyte esterases of 25 with positive nitrites and occult blood of 150. Microscopic urine shows 0-5 white blood cells and 0-5 red blood cells. There is 1+ urine bacteria. Because of this, urine culture was ordered. Labs: Laboratory Results - last 24 hr 09/30/22 09/30/22 09/30/22 10:35 10:35 10:35 WBC 11.8 H RBC 5.33 Hgb 16.9 H Hct 49.6 MCV 93.1 MCH 31.7 MCHC 34.1 RDW Std Deviation 45.0 H RDW Coeff of José Luis 13.1 Plt Count 213 MPV 8.8 Immature Gran % (Auto) 0.400 Neut % (Auto) 78.5 H Lymph % (Auto) 7.8 L Zavala % (Auto) 12.6 H Eos % (Auto) 0.1 Baso % (Auto) 0.6 Absolute Neuts (auto) 9.3 H Absolute Lymphs (auto) 0.92 Nucleated RBC % 0 Sodium 134 L Potassium 3.2 L Chloride 100 Carbon Dioxide 23.0 Anion Gap 11 BUN 35 H Creatinine 1.39 H Estim Creat Clear Calc 48.87 Est GFR (MDRD) Af Amer 64 Est GFR (MDRD) Non-Af 53 L BUN/Creatinine Ratio 25.2 H Glucose 120 H Lactic Acid 2.0 Calcium 9.2 Total Bilirubin 1.10 H AST 26 ALT 23 Alkaline Phosphatase 92 Total Protein 9.0 H Albumin 3.4 Globulin 5.6 H Albumin/Globulin Ratio 0.6 L Lipase 95 Urine Color Urine Clarity Urine pH Ur Specific [place] Urine Protein Urine Glucose (UA) Urine Ketones Urine Occult Blood Urine Nitrite Urine Bilirubin Urine Urobilinogen Ur Leukocyte Esterase Urine RBC Urine WBC Ur Squamous Epith Cells Triple Phos Crystals Urine Bacteria Urine Mucus 09/30/22 09/30/22 14:55 14:58 WBC RBC Hgb Hct MCV MCH MCHC RDW Std Deviation RDW Coeff of José Luis Plt Count MPV Immature Gran % (Auto) Neut % (Auto) Lymph % (Auto) Zavala % (Auto) Eos % (Auto) Baso % (Auto) Absolute Neuts (auto) Absolute Lymphs (auto) Nucleated RBC % Sodium Potassium Chloride Carbon Dioxide Anion Gap BUN Creatinine Estim Creat Clear Calc Est GFR (MDRD) Af Amer Est GFR (MDRD) Non-Af BUN/Creatinine Ratio Glucose Lactic Acid 1.9 Calcium Total Bilirubin AST ALT Alkaline Phosphatase Total Protein Albumin Globulin Albumin/Globulin Ratio Lipase Urine Color Yellow Urine Clarity Sl. Cloudy Urine pH 6.5 Ur Specific [place] 1.010 Urine Protein 100 H Urine Glucose (UA) Normal Urine Ketones 15 H Urine Occult Blood 150 H Urine Nitrite Positive H Urine Bilirubin Negative Urine Urobilinogen Normal Ur Leukocyte Esterase 25 H Urine RBC 0-5 SEEN Urine WBC 0-5 SEEN Ur Squamous Epith Cells 0 SEEN Triple Phos Crystals RARE Urine Bacteria 1+ Urine Mucus 0 SEEN Radiography Diagnostic Testing: Clinical Impression(s) from Imaging Studies Abdomen/Pelvis CT 09/30/22 10:35 IMPRESSION: 9 x 3 mm right ureteral stone without significant distention of the renal collecting system. Abnormal right nephrogram which may be related to acute pyelonephritis and/or urinary tract obstruction. Electronically Signed: Arian Paulino MD at 13:29 EST , Chest X-Ray 09/30/22 12:05 IMPRESSION: No radiographic evidence of acute cardiopulmonary disease. Electronically Signed: Willian Singh MD at 12:29 EST , CT scan of the abdomen pelvis was obtained. On my independent interpretation, there is no evidence of bowel obstruction or perforation. There is no free air or free fluid. There is a 9 x 3 mm right ureteral stone but there is no hydronephrosis or hydroureter. Radiologist also interpreted the CT scan and noted an abnormal right nephrogram which may be related to pyelonephritis and/or urinary tract obstruction. Portable 1 view chest x-ray was obtained. On my independent interpretation, lung leblanc are clear. There is normal cardiac silhouette. Bony thorax is normal. There is no acute process noted. Radiologist also interpreted the x- ray and agrees. EKG Initial EKG: Attestation: I personally reviewed and interpreted this EKG as follows: Interpretation: Sinus Rhythm (99) and Non-Specific ST Changes Comments: EKG was obtained. On my interpretation, it showed a normal sinus rhythm with a rate of 99. WI interval, QRS interval, and QTc intervals were all normal. [place] was normal. There are no acute ST or T wave changes. Prior EKG tracings: available for review Prior: Unchanged (11/29/2020) Treatment and Re-Evaluation Narrative: Patient was given IV fluids, morphine, and Zofran initially. Patient was given a dose of Rocephin prior to the microscopic urine results. Patient was given a dose of potassium here for his hypokalemia. Patient is feeling better on reevaluation. Patient was advised of his findings. Patient was instructed to follow-up with his primary care physician in 3 to 5 days. Patient was also instructed to follow-up with his urologist in 3 to 5 days. Patient was given a prescription for a short course of Stryker. Patient and family understood and were agreeable with the plan. All questions were answered. Discharge Plan Triage Chief Complaint: General Illness ED Provider: Ayan Bonds Dx/Rx/DC Orders Clinical Impression: Calculus of right ureter, Obesity Instructions: ED Kidney Stone w/ Colic Prescriptions: New hydrocodone-acetaminophen [hydrocodone-acetaminophen] 5-325 mg tablet 1 tab PO Q6H PRN PRN (Reason: Pain) 3 Days Qty: 10 0RF No Action albuterol sulfate 90 mcg/actuation HFA aerosol inhaler 2 inh inhalation Q6H PRN (Reason: ASTHMA) Qty: 3 3RF azelastine 137 mcg (0.1 %) aerosol,spray 2 spray intranasal BID Rx Instructions: administer into each nostril cholecalciferol (vitamin D3) 50 mcg (2,000 unit) capsule 50 mcg PO DAILY Spiriva Respimat 1.25 mcg/actuation mist 2 inh INHALATION DAILY Qty: 3 3RF leflunomide 20 mg tablet 20 mg PO DAILY multivitamin [Multiple Vitamins] Tablet 1 tab PO DAILY Zyrtec 10 mg capsule 10 mg PO DAILY PRN (Reason: allergies) gabapentin 100 mg capsule 400 mg PO QHS fluticasone propionate 50 mcg/actuation spray,suspension 2 spray intranasal DAILY Qty: 18.2 11RF Rx Instructions: administer into each nostril risedronate 150 MG tablet 150 mg PO QMONTH Hold Instructions: Resume on 10/14/21. Rx Instructions: first day of the month hydroxychloroquine [Plaquenil] 200 mg Tablet 200 mg PO DAILY flurbiprofen 100 mg tablet 100 mg PO TID montelukast 10 mg tablet 10 mg PO QPM budesonide-formoterol [Symbicort] 160-4.5 mcg/actuation HFA aerosol inhaler 2 inh inhalation BID linezolid 600 mg tablet 600 mg PO Q12H 10 Days Qty: 20 0RF montelukast 10 mg Tablet 10 mg PO QHS Qty: 0 0RF Primary Care Provider: Ganga Acosta Referrals: Ganga Acosta DO [Primary Care Provider] - Disposition Disposition: Home, Self Care
--- NOTE | 2022-09-30 10:35 | EKG12_ITS ---
Test Reason : GENERAL Blood Pressure : / mmHG Vent. Rate : 099 BPM Atrial Rate : 099 BPM P-R Int : 174 ms QRS Dur : 084 ms QT Int : 320 ms P-R-T Axes : 017 012 -05 degrees QTc Int : 410 ms Normal sinus rhythm Nonspecific T wave abnormality Abnormal ECG Confirmed by MARCUS GUTIERRES, SANYA ([id number]), makeup editor MAXIMO RAY ([id number]) on 10/02/2022 2:01:06 PM Referred By: Confirmed By:SANYA VELAZQUEZ MD
--- NOTE | 2022-09-30 10:35 | CT_ITS ---
EXAM: CT ABDOMEN AND PELVIS WITH INTRAVENOUS CONTRAST CLINICAL INDICATION: Abdominal pain -- IV PO Contrast TECHNIQUE: Helically acquired images were obtained of the abdomen and pelvis with intravenous contrast. This CT exam was performed using one or more of the following dose reduction techniques: automated exposure control, adjustment of the mA and/or kV according to patient size, and/or use of iterative reconstruction technique. This report was created using [employer] report generation technology. CONTRAST: Oral and amp;amp; IV Gastrografin and amp;amp; 100mL [id number] COMPARISON: CT Abdomen Pelvis dated 09/28/2015 FINDINGS: LOWER THORAX: Mild bibasilar atelectasis/scarring. ABDOMEN: LIVER: Low attenuation foci in the liver consistent with hepatic cysts. No follow-up is necessary. GALLBLADDER AND BILE DUCTS: Normal. No calcified gallstones. No gallbladder distention or wall edema. No intra- or extrahepatic biliary ductal dilation. PANCREAS: See below. SPLEEN: Normal. Normal size without focal cystic or solid mass. ADRENALS: Normal. No nodules. KIDNEYS AND URETERS: 3.8 and 1.7 cm left renal cysts. Heterogeneous right nephrogram raises the possibility of underlying acute pancreatitis versus urinary tract obstruction. 9 x 3 mm right ureteral stone noted at the L5 level without significant distention of the renal collecting system. Normal renal size and position. STOMACH AND BOWEL: Normal. No bowel distention. No focal inflammatory change. PELVIS: APPENDIX: Appendix is visualized and normal in appearance. 6. BLADDER: Normal. REPRODUCTIVE: Unremarkable as visualized. No mass. ABDOMEN and PELVIS: INTRAPERITONEAL SPACE: Normal. No ascites or other fluid collection. No free air. BONES/JOINTS: Mild L4-5 listhesis likely related to underlying disc degeneration facet arthropathy. SOFT TISSUES: A small fat-containing left inguinal hernia is noted. Interval repair of the periumbilical hernia. VASCULATURE: Normal. Abdominal aorta is non-dilated. LYMPH NODES: Normal. No enlarged lymph nodes. CT/Abdomen/Pelvis WITH Contrast IMPRESSION: 9 x 3 mm right ureteral stone without significant distention of the renal collecting system. Abnormal right nephrogram which may be related to acute pyelonephritis and/or urinary tract obstruction. Electronically Signed: Arian Paulino MD at 13:29 EST ,
[2022-09-30 10:46] LABS: Absolute Lymphocyte Count 0.92 X10^3/uL (0.83-4.51); Absolute Neutrophil Count 9.3 X10^3/uL (2.0-7.7); Basophil# 0.07 X10^3/uL; Basophil% 0.6 % (0-1); Eosinophil# 0.01 X10^3/uL; Eosinophils% 0.1 % (0-5); Hematocrit 49.6 % (40-54); Hemoglobin 16.9 g/dL (13.0-16.5); Lymphocyte # 0.92 X10^3/ul (0.83-4.51); Lymphocyte % 7.8 % (19-41); Mean Corp Hgb Conc 34.1 g/dL (32-36); Mean Corpuscular Hgb 31.7 pg (27.0-32.0); Mean Corpuscular Volume 93.1 fL (80-94); Mean Platelet Vol. 8.8 fl (6.2-12.0); Monocyte# 1.49 X10^3/uL; Monocyte% 12.6 % (0-10); NRBC Flagged by Analyzer 0 % (0-5); Neutrophil # 9.25 X10^3/uL (2.7-7.7); Neutrophil % 78.5 % (47-70); Platelet Count 213 K/mm3 (150-450); RBC Distribution Width CV 13.1 % (11.6-14.6); Red Blood Count 5.33 M/mm3 (4.6-6.2); White Blood Count 11.8 K/mm3 (4.4-11.0)
[2022-09-30 11:03] LABS: ALB/GLOB Ratio 0.6 RATIO (0.9-2.4); AST(SGOT) 26 U/L (15-37); Alanine Aminotransfer ALT/SGPT 23 U/L (16-61); Albumin, Serum 3.4 g/dL (3.2-5.0); Alkaline Phosphatase 92 U/L (45-117); Anion Gap 11 (5-15); BUN 35 mg/dL (7-18); BUN/Creat Ratio 25.2 RATIO (10-20); Calcium,Total 9.2 mg/dL (8.5-10.1); Chloride 100 mmol/L (98-107); Creatinine, Serum 1.39 mg/dL (0.70-1.30); EST Glomerular Filtration Rate 53 mL/min (>60); Est Glom Filt Rate - Afr Amer 64 mL/min (>60); Estimated Creatinine Clearance 48.87 ml/min; Globulin 5.6 g/dL (2.2-4.2); Glucose 120 mg/dL (74-106); Lipase 95 U/L (73-393); Potassium 3.2 mmol/L (3.5-5.1); Sodium Level 134 mmol/L (136-145)
[2022-09-30] MEDS: 0.9% Normal Saline 1,000 ML 1000 ML IV (11:13)
[2022-09-30] MEDS: Ondansetron 4 MG/2 ML Vial IV (11:13)
[2022-09-30] MEDS: Morphine 4 MG/ML Syringe IV (11:13)
--- NOTE | 2022-09-30 12:05 | RAD_ITS ---
INDICATION: Fever EXAMINATION/TECHNIQUE: X-RAY - XR Chest 1 View COMPARISON: 04/29/2016. FINDINGS: LINES/DEVICES: None. LUNGS: 1 stranding in both lung bases worse on the right side but due to scarring. No new infiltrate is seen. There is no evidence of pleural effusions. MEDIASTINUM AND CARDIOVASCULAR STRUCTURES: Cardiac silhouette not enlarged. Central airways and mediastinal contour are unremarkable. BONES AND SOFT TISSUES: No demonstrated acute osseous changes. Degenerative changes in the visualized right shoulder. RAD/Chest 1 View (Portable) IMPRESSION: No radiographic evidence of acute cardiopulmonary disease. Electronically Signed: Willian Singh MD at 12:29 EST ,
[2022-09-30 14:42] LABS: Reflex Lactate? Y
[2022-09-30 15:06] LABS: Mucous, Urine 0 SEEN /hpf (<or=2+); Squamous Epithelial Cells - UA 0 SEEN /hpf (0-5)
[2022-09-30 15:09] LABS: Color, Urine Yellow (Yellow); Glucose, Dipstick Normal (Normal); Ketone-Dipstick 15 mg/dl (Negative); Leukocyte Esterase-Dipstick 25 /ul (Negative); Nitrite-Dipstick Positive (Negative); Occult Blood-Urine 150 /ul (Negative); Protein-Dipstick 100 mg/dl (Negative); Urine Bilirubin Dipstick Negative (Negative); Urine Clarity Sl. Cloudy (Clear); Urine Urobilinogen Normal (Normal); Urine pH 6.5 (5.0 - 8.0)
[2022-09-30 16:00] LABS: Lactic Acid 1.9 mmol/L (0.4-1.9)
[2022-09-30 16:58] LABS: White Blood Cells 0-5 SEEN /hpf (0-5)
[2022-09-30 16:59] LABS: Red Blood Cells-Urine 0-5 SEEN /hpf (0-5)
[2022-09-30 17:02] LABS: Bacteria 1+ /hpf (None Seen); Triple Phosphate Crystals Ur RARE /hpf (<or=1+)
[2022-09-30] MEDS: Acetaminophen 500 MG Tablet 1000 MG PO (17:13)
[2022-09-30] MEDS: Ceftriaxone 1 GM/50 ML BAG IV (17:13)
[2022-09-30] MEDS: Potassium Chloride Oral Tablet 20 MEQ 40 MEQ PO (17:53)
== END 2022-09-30 18:08 | disposition home or self-care (01) ==
PROVIDERS: Emergency Provider Emergency Medicine; PCP Family Medicine; Visit Provider Emergency Medicine
DX: N20.1 Calculus of ureter (principal); M06.9 Rheumatoid arthritis, unspecified; E87.6 Hypokalemia; R50.9 Fever, unspecified; R51.9 Headache, unspecified; J45.909 Unspecified asthma, uncomplicated; E66.9 Obesity, unspecified; Z20.822 Contact with and (suspected) exposure to COVID-19; Z79.899 Other long term (current) drug therapy
CPT/HCPCS: 36415; 71045; 74177; 80053; 81001; 83605; 83690; 85025; 87040; 87086; 87088; 87428; 93005; 96361; 96365; 96375; 99285; J7030; Q9967; J2405

== ENCOUNTER 2022-10-30 12:08 | Observation (INO) | payer MEDICARE, SELFPAY ==
[2022-10-30 11:30] VITALS: BP 121/82; PULSE 86; RESP 17; TEMP 36.8; O2SAT 98
[2022-10-30 12:38] LABS: Absolute Lymphocyte Count 1.16 X10^3/uL (0.83-4.51); Absolute Neutrophil Count 4.9 X10^3/uL (2.0-7.7); Basophil# 0.06 X10^3/uL; Basophil% 0.8 % (0-1); Eosinophils% 1.4 % (0-5); Hematocrit 42.5 % (40-54); Lymphocyte # 1.16 X10^3/ul (0.83-4.51); Lymphocyte % 15.8 % (19-41); Mean Corp Hgb Conc 32.9 g/dL (32-36); Mean Corpuscular Hgb 30.9 pg (27.0-32.0); Mean Corpuscular Volume 93.8 fL (80-94); Mean Platelet Vol. 8.4 fl (6.2-12.0); Monocyte# 1.02 X10^3/uL; Monocyte% 13.9 % (0-10); NRBC Flagged by Analyzer 0 % (0-5); Neutrophil # 4.94 X10^3/uL (2.7-7.7); Neutrophil % 67.6 % (47-70); Platelet Count 258 K/mm3 (150-450); RBC Distribution Width CV 13.5 % (11.6-14.6); Red Blood Count 4.53 M/mm3 (4.6-6.2); White Blood Count 7.3 K/mm3 (4.4-11.0)
[2022-10-30] MEDS: 0.9% Normal Saline 1,000 ML 100 ML IV ×2 (12:59→22:57)
[2022-10-30] MEDS: 0.9% Saline Lock 10 ML Syringe IV ×2 (13:04→17:10)
[2022-10-30] MEDS: Morphine 2 MG/ML Syringe IV (13:04)
[2022-10-30 13:24] LABS: Anion Gap 7 (5-15); BUN 24 mg/dL (7-18); BUN/Creat Ratio 17.8 RATIO (10-20); Calcium,Total 9.3 mg/dL (8.5-10.1); Chloride 103 mmol/L (98-107); Creatinine, Serum 1.35 mg/dL (0.70-1.30); EST Glomerular Filtration Rate 55 mL/min (>60); Est Glom Filt Rate - Afr Amer 67 mL/min (>60); Estimated Creatinine Clearance 64.41 ml/min; Glucose 87 mg/dL (74-106); Potassium 3.9 mmol/L (3.5-5.1); Sodium Level 137 mmol/L (136-145)
[2022-10-30] MEDS: Ketorolac 15 MG/ML Vial IV (17:10)
[2022-10-30 17:11] VITALS: BP 133/83; PULSE 67; RESP 17; TEMP 36.8; O2SAT 97
[2022-10-30 20:20] VITALS: BP 112/72; PULSE 86; RESP 16; TEMP 37.4; O2SAT 96
[2022-10-30 23:12] VITALS: BP 138/85; PULSE 69; RESP 16; TEMP 36.7; O2SAT 96; BMI 29.5
[2022-10-30] MEDS: Acetaminophen 500 MG Tablet PO (23:30)
[2022-10-31] VITALS (8 sets, daily range): BP systolic 102–146; BP diastolic 73–84; PULSE 64–79; RESP 14–16; TEMP 36.5–36.8; O2SAT 94–98
[2022-10-31] MEDS: Morphine 2 MG/ML Syringe IV ×2 (00:38→05:59)
--- NOTE | 2022-10-31 06:00 | RAD_ITS ---
EXAM: XR CHEST, 1 VIEW CLINICAL INDICATION: pre operative. hx asthma pre operative. hx asthma TECHNIQUE: Frontal view of the chest. This report was created using [employer] report generation technology. COMPARISON: 09/30/2022. FINDINGS: LUNGS AND PLEURAL SPACES: There is atelectasis or fibrosis in the lung bases bilaterally, which is stable in appearance. There are no demonstrated acute pulmonary infiltrates. No pneumothorax. No effusion. HEART: Unremarkable. Cardiac silhouette not enlarged. MEDIASTINUM: Central airways and mediastinal contour are unremarkable. BONES/JOINTS: There are multilevel degenerative changes in the visualized spine. There is degenerative arthrosis of the shoulders bilaterally. SOFT TISSUES: Unremarkable. RAD/Chest 1 View (Portable) IMPRESSION: 1. Chronic atelectasis or fibrosis in the lung bases. 2. No evidence for acute cardiopulmonary pathology. Electronically Signed: Diego Hernandez MD at 5:55 EDT Reading Location ID and State: [facility] / [place] , Service support ,
--- NOTE | 2022-10-31 06:00 | EKG12_ITS ---
Test Reason : PRE OP Blood Pressure : / mmHG Vent. Rate : 070 BPM Atrial Rate : 070 BPM P-R Int : 172 ms QRS Dur : 090 ms QT Int : 412 ms P-R-T Axes : 044 032 020 degrees QTc Int : 444 ms Normal sinus rhythm Normal ECG When compared with ECG of 30-SEP-2022 10:43, Nonspecific T wave abnormality no longer evident in Anterolateral leads Confirmed by MARCUS GUTIERRES, SANYA ([id number]), field map editor MAXIMO RAY ([id number]) on 11/01/2022 8:26:46 AM Referred By: Nelson Mayorga Confirmed By:SANYA VELAZQUEZ MD
[2022-10-31] MEDS: Ketorolac 15 MG/ML Vial IV (07:42)
[2022-10-31] MEDS: 0.9% Normal Saline 1,000 ML 100 ML IV (07:43)
[2022-10-31] MEDS: 0.9% Saline Lock 10 ML Syringe IV (07:43)
[2022-10-31] MEDS: Lactated Ringers 1,000 ML 15 ML IV (10:22)
[2022-10-31] MEDS: Cefazolin 2 GM in 0.9% Normal Saline 100 ML IV (12:19)
--- NOTE | 2022-10-31 12:19 | DCINST_ITS ---
Discharge Instructions Diet Discharge Diet: No restrictions, Light diet - advance as tolerated and Soft diet Activity Discharge Activity: Return to Normal Activity Follow Up Care Please Follow Up With: Nelson Mayorga MD When: call office for instuction, Test Results: Test results from this visit will be discussed in further detail at your follow- up appointment, if applicable. Discharge Plan Admission Admit Date/Time: 10/30/22 12:08 Primary Reason for Your Visit: right kidney stone Attending Provider: Nelson Mayorga Primary Care Provider: Ganga Acosta Discharge Orders/Prescriptions Prescriptions: New ciprofloxacin HCl [Cipro] 500 mg tablet 500 mg PO BID Qty: 10 0RF oxycodone-acetaminophen [Endocet] 5-325 mg tablet 1 tab PO Q6H PRN (Reason: pain) 7 Days Qty: 20 0RF Continued albuterol sulfate 90 mcg/actuation HFA aerosol inhaler 2 inh inhalation Q6H PRN (Reason: ASTHMA) Qty: 3 3RF azelastine 137 mcg (0.1 %) aerosol,spray 2 spray intranasal BID Rx Instructions: administer into each nostril cholecalciferol (vitamin D3) 50 mcg (2,000 unit) capsule 50 mcg PO DAILY Spiriva Respimat 1.25 mcg/actuation mist 2 inh INHALATION DAILY Qty: 3 3RF leflunomide 20 mg tablet 20 mg PO DAILY multivitamin [Multiple Vitamins] Tablet 1 tab PO DAILY Zyrtec 10 mg capsule 10 mg PO DAILY PRN (Reason: allergies) gabapentin 100 mg capsule 400 mg PO QHS fluticasone propionate 50 mcg/actuation spray,suspension 2 spray intranasal DAILY Qty: 18.2 11RF Rx Instructions: administer into each nostril risedronate 150 MG tablet 150 mg PO QMONTH Hold Instructions: Resume on 10/14/21. Rx Instructions: first day of the month hydroxychloroquine [Plaquenil] 200 mg Tablet 200 mg PO DAILY flurbiprofen 100 mg tablet 100 mg PO TID montelukast 10 mg tablet 10 mg PO QPM budesonide-formoterol [Symbicort] 160-4.5 mcg/actuation HFA aerosol inhaler 2 inh inhalation BID hydrocodone-acetaminophen 5-325 mg tablet 1 tab PO Q6H PRN PRN (Reason: Pain) 3 Days Qty: 10 0RF Referrals / Follow Up: Ganga Acosta DO [Primary Care Provider] - Disposition Discharge Orders: Discharge Patient (Routine); Ordered 10/31/22 Ordered By: Dr. Nelson Mayorga
--- NOTE | 2022-10-31 12:28 | PCM.OPRPT ---
Report of Operation Date of Procedure: 10/31/22 Pre-Operative Diagnosis: right ureteral calculi Post-Operative Diagnosis: same Surgery/Procedure Performed:: cystoscopy, right stent placement with retrograde. Description of Surgical Findings:: Patient was taken back to the operating room after induction of general anesthesia, the patient was placed in dorsolithotomy position. The urethra and genitals were prepped and draped in usual sterile fashion. Using a 21 Portuguese rigid cystourethroscope the entire length of the urethra was normal then went into the bladder. Identified the trigone the left and right ureteral orifice. I then cannulated the right ureteral orifice and advanced a wire up into the kidney. I then backloaded a 5 Portuguese open ended catheter over the wire and injected contrast to delineate the anatomy. After the retrograde was performed it was hard to see the stone but on CT scan he had a stone inbb the right ureter and he has been having severe right flank pain. so I then used fluoroscopic images and guidance to advanced a wire up into the kidney and over the 0.038 glidewire I advanced a 6 Portuguese by 26 cm double pigtail stent. I then pulled the 0.038 Glidewire off and the stent coiled in the kidney bladder good position. The bladder was then drained. We confirmed the position of the stent by fluoroscopy. Patient anesthetic was reversed and was taken back to the PACU in good condition. Surgeon: Nelson Mayorga Type of Anesthesia: MAC and Topical Anesth Drains: 6 fr x 26 cm stent Admit VTE Documentation VTE Present on Admission: No VTE Mechan Device Prophylaxis: SCD's VTE Pharm Prophylaxis ordered?: No
--- NOTE | 2022-10-31 14:50 | CASEMGMT ---
PAOLO OLMOS in to discuss TRAVIS form with patient. RN AMARILIS explained TRAVIS form, patient voiced understanding. Pt signed form and filed in chart. Pt provided with a copy of signed TRAVIS form. Pt at bedside. Pt denies any homegoing concerns or needs.
== END 2022-10-31 16:31 | disposition home or self-care (01) ==
PROVIDERS: Admitting Provider Urology; PCP Family Medicine; Referring Provider Urology; Visit Provider Urology
PROC: (CPT 52332; principal; 2022-10-31 11:20)
DX: N20.1 Calculus of ureter (principal); M06.9 Rheumatoid arthritis, unspecified; J45.909 Unspecified asthma, uncomplicated; N40.0 Benign prostatic hyperplasia without lower urinary tract symptoms; Z77.090 Contact with and (suspected) exposure to asbestos; M14.60 Charcot's joint, unspecified site; G89.29 Other chronic pain; Z79.899 Other long term (current) drug therapy; Z79.51 Long term (current) use of inhaled steroids; K21.9 Gastro-esophageal reflux disease without esophagitis; G62.9 Polyneuropathy, unspecified; G47.30 Sleep apnea, unspecified
CPT/HCPCS: 52332; 00910; 36415; 71045; 76000; 80048; 85025; 93005; 96361; 96374; 96375; 96376; 97802; 99221; J7030; J7120; A4216; C1769; C2617; G0378; J2405

== ENCOUNTER → 2024-01-08 | Outpatient (CLI) | payer MEDICARE, SELFPAY ==
[2024-01-08 16:20] LABS: PSA,Total- Diagnostic < 0.01 ng/mL (0.0-4.0)
== END | disposition home or self-care (01) ==
PROVIDERS: PCP Family Medicine; Referring Provider Urology; Visit Provider Urology
DX: C61 Malignant neoplasm of prostate (principal)
CPT/HCPCS: 36415; 84153

== ENCOUNTER → 2024-09-10 | Outpatient (CLI) | payer MEDICARE, SELFPAY | END | disposition home or self-care (01) | LOC: SL 13:31 | PROVIDERS: PCP Family Medicine; Visit Provider Nurse Practitioner Acute Care | DX: Z00.00 Encounter for general adult medical examination without abnormal findings (principal) ==

== ENCOUNTER 2024-11-09 15:52 | Emergency (ER) | payer MEDICARE, SELFPAY ==
[2024-11-09 15:52] VITALS: BP 151/97; PULSE 74; RESP 20; TEMP 35.5; O2SAT 94
--- NOTE | 2024-11-09 16:06 | EX.ED.UPPERE ---
HPI History of Present Illness Chief Complaint: Dislocation Informant: patient and spouse/S.O. Narrative Narrative: Right shoulder dislocation. History of reverse shoulder repair August 2023 with revision October [address] Nunes. States doing well had a follow-up a week ago. Today 2 PM was reaching back when he felt it pop forward. No direct traumas. Last meal at noon. Took 2 Tylenol's. History of asthma. Reports that the dislocation that led to his revision a year ago. Denies any cardiac history. Denies any complications with anesthesia. Prior similar symptoms: Yes [facility] Medical History Polyneuropathy Cancer Fatigue Skin cancer Glaucoma Carpal tunnel syndrome Cataracts, bilateral Wears glasses Cancer History of steroid therapy Arthritis Kidney stones Gastric reflux Non-smoker CPAP (continuous positive airway pressure) dependence Sleep apnea Shortness of breath on exertion History of echocardiogram History of stress test Cardiology follow-up encounter Neuropathy KEZIA treated with BiPAP Moderate persistent allergic asthma without complication Asbestos exposure GERD (gastroesophageal reflux disease) BPH (benign prostatic hyperplasia) Osteopenia Osteoarthritis DDD (degenerative disc disease), cervical Gastric ulcer Obesity Rheumatoid arthritis Kidney stones Prostate cancer Home Medications ?Medication ?Instructions ?Recorded ?Last Taken ?Type risedronate 150 mg tablet 150 mg PO QMONTH BONES 11/25/20 10/11/22 History hydroxychloroquine 200 mg tablet 200 mg PO DAILY arthritis 01/05/21 Unknown History (Plaquenil) albuterol sulfate 90 mcg/actuation 2 inh inhalation Q6H PRN ASTHMA #3 10/05/21 Unknown Rx aerosol inhaler ea azelastine 137 mcg (0.1 %) nasal 2 spray intranasal BID breathing 12/26/21 Unknown History spray cholecalciferol (vitamin D3) 50 50 mcg PO DAILY supplement 12/27/21 Unknown History mcg (2,000 unit) capsule leflunomide 20 mg tablet 20 mg PO DAILY arthritis 05/16/22 Unknown History multivitamin (Multiple Vitamins 1 tab PO DAILY supplement 05/16/22 Unknown History tablet) gabapentin 100 mg capsule 400 mg PO QHS pain 09/18/22 Unknown History flurbiprofen 100 mg tablet 100 mg PO DAILY PRN pain #90 tabs 12/19/22 Unknown Rx famotidine 20 mg tablet 20 mg PO QDAY 04/02/24 Unknown History budesonide-formoterol HFA 160 2 inh inhalation BID breathing #3 04/08/24 Unknown Rx mcg-4.5 mcg/actuation aerosol ea inhaler (Symbicort) amoxicillin 875 mg-potassium 1 tab PO BID #20 tabs 07/16/24 Unknown Rx clavulanate 125 mg tablet prednisone 10 mg tablet 10 mg PO QDAY #30 tabs 07/16/24 Unknown Rx fluticasone propionate 50 2 spray intranasal DAILY #3 ea 09/09/24 Unknown Rx mcg/actuation nasal spray,suspension tiotropium bromide 1.25 2 inh inhalation DAILY BREATHING 09/26/24 Unknown Rx mcg/actuation mist for inhalation #3 device (Spiriva Respimat) montelukast 10 mg tablet 10 mg PO QPM sinuses #90 tabs 10/02/24 Unknown Rx Allergy/AdvReac Type Severity Reaction Status Date / Time doxycycline AdvReac Intermediate Hives Verified 11/09/24 15:54 Environmental Allergies: AdvReac Intermediate Other Verified 11/09/24 15:54 Uncoded Family History Mother Heart disease CHF atrial fib Sister Hypertension Surgical History History of shoulder replacement History of cardiac catheterization Hx of colonoscopy Hx of foot surgery History of removal of retained hardware History of tonsillectomy History of rhinoplasty History of total knee arthroplasty H/O prostatectomy History of inguinal hernia repair History of carpal tunnel release History of left heart catheterization (07/23/18) Social History household members: spouse Smoking Status: Never smoker second hand exposure: No alcohol intake: never substance use type: does not use what type of physical activity do you participate in: none drea/zoroastrianism: Hindu seatbelt use: always ROS ROS ED Constitutional Constitutional ED: Denies chills, fever(s) or sweats ENT ENT ED: Denies sore throat Cardiovascular Cardiovascular: Denies chest pain, leg edema, palpitations or racing heartbeat Respiratory/Chest Respiratory/Chest: Denies cough, dyspnea or dyspnea on exertion Gastrointestinal Gastrointestinal: Denies abdominal pain, diarrhea, nausea or vomiting Genitourinary Genitourinary ED: Denies dysuria, hematuria or urinary frequency Musculoskeletal Musculoskeletal: Reports extremity pain; Denies back pain or neck pain Integumentary Denies rash or wounds Neurologic Neurologic: Denies headache(s), paresthesias or weakness EXAM Physical Exam Const Vital Signs: 11/09/24 15:52 Temperature 95.9 F L Temperature Source Temporal Pulse Rate 74 Respiratory Rate 20 H Blood Pressure 151/97 H Blood Pressure Mean 115 Pulse Ox 94 Oxygen Delivery Method Room Air Positive well nourished and well developed General Appearance ED: well developed and NAD HEENT Reports moist mucous membranes normocephalic and atraumatic Eyes General Eye ED: Yes normal appearance of both eyes Neck full ROM Chest Wall Chest: Negative for tenderness Resp normal respiratory effort and normal air movement Effort and Inspection: symmetric chest movement; Negative for respiratory distress Cardio regular rate, regular rhythm and no murmurs Peripheral Pulses: pulses 2+ throughout GI normal to inspection, nondistended, normoactive bowel sounds and non-tender Palpation: Negative for guarding or rebound tenderness present Extremity Extremity Narrative: Patient had a right upper extremity sling, has deformities with anterior bulge at the shoulder. Skin intact. No tenderness of the humerus. General Extremety ED: Yes tenderness; Negative for edema General Extremity: Negative for edema Neuro oriented x3 and no sensory deficits noted Sensorium / Orientation: awake and alert Skin no rashes or lesions noted and no wounds MDM MDM MDM Narrative Medical decision making narrative: Interventions / MDM: Differential diagnosis: Dislocation, history of reverse shoulder repair Diagnosis considered but do not suspect: N/A My EKG interpretation: N/A Imaging independently reviewed and interpreted by myself: Three-view x-ray right shoulder: Anterior dislocation of prosthesis. Also read by radiologist. No fractures. Post reduction 2 view shoulder: Reduce in appropriate position. External documents reviewed: N/A Test considered but not ordered:N/A ED course: Patient clinical dislocation anteriorly. IV established for pain medicines, will sent for x-rays. X-ray confirms dislocation. Consent obtained for reduction with conscious sedation. 1649: After break consent risk and benefit discussed. Patient placed on dental officer IV fluids capnography and oxygenation. Timeout performed, a total of 50 mg propofol was given IV. He was sinus rhythm on the monitor. Blood pressure stable. Nursing provided traction with a bedsheet, gentle traction of the right shoulder, immediate relocation of the shoulder and improved deformity. He was placed in his home sling, Noé wrap used for swath. Pulse intact distally post reduction. Post reduction x-ray ordered. Total sedation time 5 minutes. 1800: Reevaluated way back to his normal self. Pain improved with reduction. Postreduction films reviewed, relocated. Patient maintain sling and swath. Discussed no signing legal contracts today. He will follow-up with his orthopedist Dr. Nunes. All questions were answered. Re-evaluation: stable Disposition discussed with patient/family/significant other: Patient and spouse Case discussed with consulting clinician: N/A This note was generated with [employer] software. It may contain incorrect words, spelling, and punctuation that were not noted in checking the note before signing. Procedures Procedural Sedation 1 (Initial Baseline): Consent Signed: Yes Any Problems With Anesthesia: No You/Your family experience fever (hyperthermia) w/anesthesia: No Sedation medication: Propofol Dose: 50 Route: IV Maliampati Score: Class II ASA Classification: II Discharge Plan Triage Chief Complaint: Dislocation ED Provider: Walter Gallagher Dx/Rx/DC Orders Clinical Impression: Closed dislocation of right shoulder, History of conscious sedation, History of reverse total replacement of right shoulder joint Instructions: ED Procedural Sedation, (Adult), ED Dislocation: Shoulder (Reduced) Prescriptions: No Action albuterol sulfate 90 mcg/actuation HFA aerosol inhaler 2 inh inhalation Q6H PRN (Reason: ASTHMA) Qty: 3 3RF azelastine 137 mcg (0.1 %) aerosol,spray 2 spray intranasal BID Rx Instructions: administer into each nostril cholecalciferol (vitamin D3) 50 mcg (2,000 unit) capsule 50 mcg PO DAILY leflunomide 20 mg tablet 20 mg PO DAILY multivitamin [Multiple Vitamins] Tablet 1 tab PO DAILY gabapentin 100 mg capsule 400 mg PO QHS flurbiprofen 100 mg tablet 100 mg PO DAILY PRN (Reason: pain) Qty: 90 3RF famotidine 20 mg tablet 20 mg PO QDAY prednisone 10 mg tablet 10 mg PO QDAY Qty: 30 0RF Rx Instructions: take 4 tabs for three days, then 3 tabs for three days, then 2 tabs for three days, then 1 tab for 3 days amoxicillin-pot clavulanate 875-125 mg tablet 1 tab PO BID Qty: 20 0RF risedronate 150 MG tablet 150 mg PO QMONTH Rx Instructions: first day of the month hydroxychloroquine [Plaquenil] 200 mg Tablet 200 mg PO DAILY budesonide-formoterol [Symbicort] 160-4.5 mcg/actuation HFA aerosol inhaler 2 inh inhalation BID Qty: 3 3RF fluticasone propionate 50 mcg/actuation spray,suspension 2 spray intranasal DAILY Qty: 3 3RF Rx Instructions: administer into each nostril Spiriva Respimat 1.25 mcg/actuation mist 2 inh INHALATION DAILY Qty: 3 3RF montelukast 10 mg tablet 10 mg PO QPM Qty: 90 3RF Primary Care Provider: Ganga Acosta Referrals: Ganga Acosta DO [Primary Care Provider] - Gary Nunes MD [Med Staff - Active Staff] - 1 Day Activity Restrictions/Additional Instructions: Shoulder reduced. Continue sling and swath. Call Dr. Nunes's office tomorrow for follow-up and reevaluation. Print Language: Kinyarwanda Disposition Disposition: Home, Self Care
--- NOTE | 2024-11-09 16:11 | RAD_ITS ---
PROCEDURE: RIGHT SHOULDER, TWO VIEWS 11/09/2024 REASON FOR EXAM: DISLOCATION TECHNIQUE: Two views of the right shoulder. COMPARISON: No relevant prior. FINDINGS: Bones: Right total humeral arthroplasty. No periprosthetic fractures. Joints: Anterior dislocation of the head of the prosthesis. Soft tissues: Swelling. Other: No other significant findings. RAD/Shoulder min 2 Views IMPRESSION: Right total humeral prosthesis. Anterior dislocation of the head of the humeral prosthesis. Reading Location: [facility]
[2024-11-09 16:19] VITALS: BMI 33.8
[2024-11-09] MEDS: Ondansetron 4 MG/2 ML Vial IV (16:22)
[2024-11-09] MEDS: Morphine 4 MG/ML Syringe IV (16:22)
[2024-11-09 16:50] VITALS: BP 132/89; BP 135/82; BP 142/80; BP 143/88; PULSE 60; PULSE 62; PULSE 64; PULSE 65; RESP 13; RESP 17; RESP 19; RESP 21; O2SAT 95; O2SAT 96; O2SAT 97
[2024-11-09 16:51] VITALS: BP 146/88; PULSE 64; RESP 14; TEMP 36.3; O2SAT 97
--- NOTE | 2024-11-09 16:55 | RAD_ITS ---
PROCEDURE: SHOULDER MIN 2 VIEWS 11/09/2024 REASON FOR EXAM: RELOCATION Check following reduction. TECHNIQUE: One (2) views of the right shoulder COMPARISON: Earlier study dated 11/09/2024. FINDINGS: Bones: Right total humeral arthroplasty in good alignment following reduction. Soft tissues: Unremarkable. Other: Cardiac monitoring lead. RAD/Shoulder min 2 Views IMPRESSION: Satisfactory postreduction films of the right total humeral arthroplasty. Reading Location: [facility]
[2024-11-09 17:06] VITALS: BP 143/88; PULSE 61; RESP 19; O2SAT 97
[2024-11-09] MEDS: Propofol 200 MG/20 ML Vial IV BOLUS (17:14)
[2024-11-09 18:20] VITALS: BP 134/79; PULSE 63; RESP 20; TEMP 35.5; O2SAT 96
== END 2024-11-09 18:21 | disposition home or self-care (01) ==
PROVIDERS: Emergency Provider Emergency Medicine; PCP Family Medicine; Visit Provider Emergency Medicine
DX: T84.028A Dislocation of other internal joint prosthesis, initial encounter (principal); Y79.2 Prosthetic and other implants, materials and accessory orthopedic devices associated with adverse incidents; J45.40 Moderate persistent asthma, uncomplicated; G47.33 Obstructive sleep apnea (adult) (pediatric); K21.9 Gastro-esophageal reflux disease without esophagitis; Z79.899 Other long term (current) drug therapy; Z96.611 Presence of right artificial shoulder joint
CPT/HCPCS: 23650; 73030; 96374; 96375; 99152; 99283; A4216; J2405

== ENCOUNTER → 2025-01-13 | Outpatient (CLI) | payer MEDICARE, SELFPAY ==
[2025-01-13 13:57] LABS: PSA,Total- Diagnostic < 0.02 ng/mL (0.00-4.00)
== END | disposition home or self-care (01) ==
LOC: LAB 11:53
PROVIDERS: PCP Family Medicine; Referring Provider Urology; Visit Provider Urology
DX: C61 Malignant neoplasm of prostate (principal)
CPT/HCPCS: 36415; 84153

== ENCOUNTER 2025-02-20 09:18 | Day surgery (SDC) | payer MEDICARE, SELFPAY ==
[2025-02-20] VITALS (10 sets, daily range): BP systolic 95–151; BP diastolic 63–94; PULSE 60–75; RESP 16–32; TEMP 36.3–36.4; O2SAT 93–98; BMI 32.3
--- NOTE | 2025-02-20 09:27 | PCM.PRE.AN2 ---
ASA Classification* ASA Classification ASA Classification: 2 Assessment & Plan Anesthesia* Anesthesia Assessment Anesthesia Assessment: Discussed sedation and/or anesthesia options, risks, benefits, and alternatives with patient/parents/legal guardian/POA. Questions invited. The patient/parents/legal guardian/POA seems to understand and agrees to proceed with anesthesia plan. Reviewed the physical assessment, medical history, allergy history and patient home medications list prior to surgery/procedure/anesthetic and documented any changes. Performed airway and anesthesia risk assessments. Anesthesia Type Anesthesia Type: MAC Anesthesia Focused Assessment* Airway Assessment Mouth opens: >3 cm Mallampati Score: II Labs Anesthesia Preop lab: CBC WBC 7.3 K/mm3 (4.4-11.0) 10/30/22 12:10/30/22 RBC 4.53 M/mm3 (4.6-6.2) L 10/30/22 12:25 10/30/22 Hgb 14.0 g/dL (13.0-16.5) 10/30/22 12:25 10/30/22 Hct 42.5 % (40-54) 10/30/22 12:25 10/30/22 Plt Count 258 K/mm3 (150-450) 10/30/22 12:25 10/30/22 CHEMISTRY Potassium 3.9 mmol/L (3.5-5.1) 10/30/22 12:25 10/30/22 Sodium 137 mmol/L (136-145) 10/30/22 12:25 10/30/22 BUN 24 mg/dL (7-18) H 10/30/22 12:25 10/30/22 Creatinine 1.35 mg/dL (0.70-1.30) H 10/30/22 12:25 10/30/22 Glucose 87 mg/dL (74-106) 10/30/22 12:25 10/30/22 TSH 2.44 uIU/mL (0.358-3.74) 12/30/21 10:38 12/30/21 COAG Pre-Assessment Diagnosis/Proposed Procedure Planned Operative Procedure(s): COLONOSCOPY Anesthesia History Anesthesia History - systems 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 When Was Last Pacemaker Check QUESTION #4 FULL TEXT: You/Your Family Experience fever (hyperthermia) with Anesthesia Last Oral Intake Last Oral intake: Last Oral Intake NPO since Meds taken in AM with sips of water? Meds patient instructed to take am of surgery PONV PONV - systems integration analyst: PONV - systems integration analyst Female No 02/19/25 08:47 HX of Motion Sickness No 02/19/25 08:47 HX of N/V After Surgery No 02/19/25 08:47 Non-Smoker Yes 02/19/25 08:47 Duration of Surgery greater No 02/19/25 08:47 than 60 minutes Number of Risk Factors 1 02/19/25 08:47 PONV Score Low Risk 02/19/25 08:47 Height & Weight Height & Weight: Anesthesia: Height & Weight Height 5 ft 10 in 02/10/25 12:59 Respiratory Assessment Respiratory Assessment - systems integration analyst: Respiratory Tract Infection Hx - systems integration analyst Hx Respiratory Tract Infection No 02/19/25 08:47 STOP Sleep Apnea STOP Sleep Apnea - systems integration analyst: STOP Sleep Apnea - systems integration analyst Hx Hypertension No 02/19/25 08:47 Hx Sleep Apnea Yes 02/19/25 08:47 CPAP Yes 02/19/25 08:47 BIPAP No 02/19/25 08:47 Do you snore loudly (louder than talking or can be heard Do you often feel tired/ fatigued/ sleepy during daytime? Has anyone observed you stop breathing during sleep? STOP Results Positive 02/19/25 08:47 QUESTION #5 FULL TEXT : Do you snore loudly (louder than talking or can be heard through closed doors)? Tobacco Use History Tobacco Use History - systems integration analyst: Tobacco Use History - systems integration analyst Tobacco Use Smoking Status Never smoker 02/19/25 08:47 Hx Tobacco Use No 02/19/25 08:47 Years Smoking Packs Smoked per Day Smoking Cessation Date was within the last 15 years Hx Smoking Cessation Date Hx Smoking Cessation Counseling Hematologic Medial History Hematologic Hx - systems integration analyst: Hematologic Medical Hx - analytics architect Hx of Blood Transfusion No 02/19/25 08:47 Hx of Transfusion in last 3 No 02/19/25 08:47 Months Date of Last Transfusion (if within last 3 months) Ever experience any problems No 02/19/25 08:47 with transfusion(s)? Specify any problems Hx of Preganancy in last 3 N/A 02/19/25 08:47 Months Nurse Filling Out Transfusion [id number] 02/19/25 08:47 & Questions: Date: 02/19/25 02/19/25 08:47 Time: 08:51 02/19/25 08:47 Patient unable to answer at this time (ie. confused, unrespo /Reproduction History /Reproductive History - systems integration analyst: /Reproductive Hx- systems integration analyst Hx Now Gestational Age (in weeks): EDC: Hx Hx Para Hx Section SAB PFSH Medical History Open wound Ambulates with cane Amputation toe History of pain when walking Polyneuropathy Cancer Fatigue Skin cancer Glaucoma Carpal tunnel syndrome Cataracts, bilateral Wears glasses Cancer History of steroid therapy Arthritis Kidney stones Gastric reflux Non-smoker CPAP (continuous positive airway pressure) dependence Sleep apnea Shortness of breath on exertion History of echocardiogram History of stress test Cardiology follow-up encounter Neuropathy KEZIA treated with BiPAP Moderate persistent allergic asthma without complication Asbestos exposure GERD (gastroesophageal reflux disease) BPH (benign prostatic hyperplasia) Osteopenia Osteoarthritis DDD (degenerative disc disease), cervical Gastric ulcer Obesity Rheumatoid arthritis Kidney stones Prostate cancer Home Medications ?Medication ?Instructions ?Recorded ?Last Taken ?Type risedronate 150 mg tablet 150 mg PO QMONTH BONES 11/25/20 10/11/22 History hydroxychloroquine 200 mg tablet 200 mg PO DAILY arthritis 01/05/21 Unknown History (Plaquenil) albuterol sulfate 90 mcg/actuation 2 inh inhalation Q6H PRN ASTHMA #3 10/05/21 Unknown Rx aerosol inhaler ea azelastine 137 mcg (0.1 %) nasal 2 spray intranasal BID breathing 12/26/21 Unknown History spray cholecalciferol (vitamin D3) 50 50 mcg PO DAILY supplement 12/27/21 Unknown History mcg (2,000 unit) capsule leflunomide 20 mg tablet 20 mg PO DAILY arthritis 05/16/22 Unknown History multivitamin (Multiple Vitamins 1 tab PO DAILY supplement 05/16/22 Unknown History tablet) flurbiprofen 100 mg tablet 100 mg PO DAILY PRN pain #90 tabs 12/19/22 Unknown Rx famotidine 20 mg tablet 20 mg PO QDAY 04/02/24 Unknown History budesonide-formoterol HFA 160 2 inh inhalation BID breathing #3 04/08/24 Unknown Rx mcg-4.5 mcg/actuation aerosol ea inhaler (Symbicort) fluticasone propionate 50 2 spray intranasal DAILY #3 ea 09/09/24 Unknown Rx mcg/actuation nasal spray,suspension tiotropium bromide 1.25 2 inh inhalation DAILY BREATHING 09/26/24 Unknown Rx mcg/actuation mist for inhalation #3 device (Spiriva Respimat) montelukast 10 mg tablet 10 mg PO QPM sinuses #90 tabs 10/02/24 Unknown Rx tocilizumab 162 mg/0.9 mL 162 mg subcut Q7D 02/10/25 Unknown History subcutaneous pen injector (Actemra ACTPen) gabapentin 400 mg capsule 400 mg PO QHS 02/19/25 Unknown History Allergy/AdvReac Type Severity Reaction Status Date / Time doxycycline AdvReac Intermediate Hives Verified 02/19/25 08:43 Environmental Allergies: AdvReac Intermediate Other Verified 02/19/25 08:43 Uncoded Family History Mother Heart disease CHF atrial fib Sister Hypertension Surgical History H/O toe surgery History of shoulder replacement History of cardiac catheterization Hx of colonoscopy Hx of foot surgery History of removal of retained hardware History of tonsillectomy History of rhinoplasty History of total knee arthroplasty H/O prostatectomy History of inguinal hernia repair History of carpal tunnel release History of left heart catheterization (07/23/18) Social History household members: spouse Smoking Status: Never smoker second hand exposure: No alcohol intake: never substance use type: does not use what type of physical activity do you participate in: none drea/sabianist: Hinduism seatbelt use: always Review of Systems (Anesthesia) ROS Narrative System reviewed and no additional complaints, except as documented.
[2025-02-20] MEDS: Lactated Ringers 1,000 ML 15 ML IV (09:40)
--- NOTE | 2025-02-20 10:15 | PCM.HP.BLA ---
History and Physical Date of Admission: 02/20/25 Intake Vital Signs 11/09/2514:52 02/11/2512:59 Height 5 ft 10 in 5 ft 10 in Weight: 231 lb 2 oz BMI 33.1 BP 129/79 H Blood Pressure Location Rt brachial Position Sitting Respiration 18 Pulse 71 Pulse Source Monitor Temp 97.2 F L Temp Source Temporal Pulse Oximetry (%) 95 Oxygen Delivery Method room air Intake Visit Reasons: RECALL COLONOSCOPY Chief Complaint: Colonoscopy Material Planner Required: No Accompanied by: Is patient in pain?: No Allergies doxycycline Adverse Reaction (Intermediate, Verified 02/10/25 13:01) HivesEnvironmental Allergies: Uncoded Adverse Reaction (Intermediate, Verified 02/10/25 13:01) Other Medications ?Medication ?Instructions ?Recorded ?Confirmed ?Type risedronate 150 mg tablet 150 mg PO QMONTH BONES 11/25/20 02/10/25 History hydroxychloroquine 200 mg tablet 200 mg PO DAILY arthritis 01/05/21 02/10/25 History (Plaquenil) albuterol sulfate 90 mcg/actuation 2 inh inhalation Q6H PRN ASTHMA #3 10/05/21 02/10/25 Rx aerosol inhaler ea azelastine 137 mcg (0.1 %) nasal 2 spray intranasal BID breathing 12/26/21 02/10/25 History spray cholecalciferol (vitamin D3) 50 50 mcg PO DAILY supplement 12/27/21 02/10/25 History mcg (2,000 unit) capsule leflunomide 20 mg tablet 20 mg PO DAILY arthritis 05/16/22 02/10/25 History multivitamin (Multiple Vitamins 1 tab PO DAILY supplement 05/16/22 02/10/25 History tablet) gabapentin 100 mg capsule 400 mg PO QHS pain 09/18/22 02/10/25 History flurbiprofen 100 mg tablet 100 mg PO DAILY PRN pain #90 tabs 12/19/22 02/10/25 Rx famotidine 20 mg tablet 20 mg PO QDAY 04/02/24 02/10/25 History budesonide-formoterol HFA 160 2 inh inhalation BID breathing #3 04/08/24 02/10/25 Rx mcg-4.5 mcg/actuation aerosol ea inhaler (Symbicort) prednisone 10 mg tablet 10 mg PO QDAY #30 tabs 07/16/24 02/10/25 Rx fluticasone propionate 50 2 spray intranasal DAILY #3 ea 09/09/24 02/10/25 Rx mcg/actuation nasal spray,suspension tiotropium bromide 1.25 2 inh inhalation DAILY BREATHING 09/26/24 02/10/25 Rx mcg/actuation mist for inhalation #3 device (Spiriva Respimat) montelukast 10 mg tablet 10 mg PO QPM sinuses #90 tabs 10/02/24 02/10/25 Rx tocilizumab 162 mg/0.9 mL mg subcut QWEEK 02/10/25 02/10/25 History subcutaneous pen injector (Actemra ACTPen) Have you fallen in the past year?: No PFSH Medical History (Updated 02/10/25 @ 13:[address] Esteban Eugene MD) Polyneuropathy Cancer Fatigue Skin cancer Glaucoma Carpal tunnel syndrome Cataracts, bilateral Wears glasses Cancer History of steroid therapy Arthritis Kidney stones Gastric reflux Non-smoker CPAP (continuous positive airway pressure) dependence Sleep apnea Shortness of breath on exertion History of echocardiogram History of stress test Cardiology follow-up encounter Neuropathy KEZIA treated with BiPAP Moderate persistent allergic asthma without complication Asbestos exposure GERD (gastroesophageal reflux disease) BPH (benign prostatic hyperplasia) Osteopenia Osteoarthritis DDD (degenerative disc disease), cervical Gastric ulcer Obesity Rheumatoid arthritis Kidney stones Prostate cancer Surgical History (Updated 02/10/25 @ 13:06 by Samantha Singh) History of shoulder replacement History of cardiac catheterization Hx of colonoscopy Hx of foot surgery History of removal of retained hardware History of tonsillectomy History of rhinoplasty History of total knee arthroplasty H/O prostatectomy History of inguinal hernia repair History of carpal tunnel release History of left heart catheterization (07/23/18) Family History Mother Heart disease CHF atrial fibSister Hypertension Social History household members: spouse Smoking Status: Never smoker second hand exposure: No alcohol intake: never substance use type: does not use what type of physical activity do you participate in: none drea/mandaen: Temple seatbelt use: always HPI HPI HPI: Patient is a 75-year-old male here to discuss follow-up colonoscopy 5 years after his last colonoscopy. He had polyps removed and was recommended for repeat in 5 years. He does report that he had an episode of bright red blood recently but it was only 1 episode and it was painless. ROS General General: Yes fatigue; No weight change, appetite, colon cancer, breast cancer or weakness HEENT HEENT: No difficulty swallowing, eye injury, eye surgery, swollen glands or hoarseness Endo Endocrine: No thyroid disease, diabetes mellitus, thyroid cancer, Hair loss, heat intolerance or cold intolerance Skin Skin: Yes rash; No changing moles Breast Breast: No left breast lump, right breast lump, nipple discharge, breast pain, abnormal mammogram, abnormal US or breast enlargement Musc Musculoskeletal: Yes back problems, arthritis and rheumatoid arthritis; No gout or joint pain Cardio Cardiovascular: No murmur, pacemaker, heart disease, atrial fibrillation, high blood pressure, heart attack, heart stent, palpitations, shortness of breath with exertion or chest pain Psych Psychiatric: No depression, anxiety or hearing voices Resp Respiratory: Yes shortness of breath, Yes sleep apnea, No cough, No COPD, Yes asthma, No emphysema and No wheezing Gastro Gastrointestinal: No abdominal pain, No nausea or vomiting, No diarrhea, No constipation, Yes blood in stool, Yes acid reflux, No hemorrhoids, No ulcers, No gallbladder problem and No black,tarry stools Mark Hematologic: No blood thinners, No blood disorders, No bleeding, No anemia and No blood clots Neuro Neurologic: No system reviewed and no additional complaints, except as documented, No as per HPI, No abnormal gait, No abnormal hearing, No abnormal movements, No abnormal speech, No behavioral changes, No burning sensations, No confusion, No convulsions, No disequilibrium, No dizziness, No localized weakness, No frequent falls, No headache(s), No lack of coordination, No loss of vision, No memory loss, Yes numbness, No other visual disturbances, No radicular pain, No restless legs, No sensory deficit, No syncope, Yes tingling, No tremor(s), No weakness and No other Exam Const General: cooperative Orientation: alert and oriented x3 HENMT Head: normal to inspection Neck Neck: normal visual inspection and full ROM Chest Chest palpation & inspection: normal inspection of the chest Resp Effort & Inspection: normal respiratory effort Auscultation: clear to auscultation bilaterally Cardio Rate: regular rate Rhythm: regular rhythm GI Inspection: non-distended Palpation: soft and nontender Skin General: no rashes or lesions noted Neuro General: patient alert and patient oriented x3 Extrem General: full ROM Psych Appearance: grossly normal Mental Status: mental status grossly normal Assessment and Plan Assessment and Plan (1) History of colon polyps: Status: Acute Plan: Patient has a history of colon polyps and he recently had some blood in his stool. I recommended repeat surveillance colonoscopy. I explained endoscopy in detail to the patient. I explained the risks including but not limited to stroke or heart attack with anesthesia, perforation of the GI tract, bleeding, infection. I explained that any of these could necessitate further emergency surgery. The patient understands and all questions were answered sufficiently. The patient wishes to proceed with procedure. Esteban Eugene MD Pager: [facility] [address] [place] [address], [address] [place] [address] Office: I have examined the patient and the H&P has been reviewed. There are no clinical changes since date of exam.
--- NOTE | 2025-02-20 10:30 | COLBX_PTH ---
PATIENT: SHIVANI DENSON LOC: EN U#:[id number] AGE/SX: 75/M ROOM: RE02/20/[address]: Dr. Esteban Eugene MD : 1950 BED: DIS: 02/20/2025 SPEC #: [id number] RECD: 02/20/25 15:09 STATUS: ETHEL REShanna #: [id number] ANNA: 02/20/25 10:[address]: Esteban Eugene DEPT: SURGICAL PATHOLOGY RECD BY: Manuel Linares ENTERED: 02/20/25 16:01 SP TYPE: COLON BX OTHR DR: Dr. Ganga Acosta DO Tissues: A - Cecum, NOS Procedures: Surgery Specimen Level IV HEADER OPERATION: Colonoscopy, polypectomy PRE-OP DIAGNOSIS: History of colon polyps TISSUE SUBMITTED: A- Cecal polyp MICROSCOPIC DIAGNOSIS A. Cecum, polyp, biopsy: * Benign lymphoid aggregate. MICROSCOPIC DESCRIPTION Slides are reviewed. GROSS DESCRIPTION A. Received in fixative is one container labeled with the patient's name and designated Cecal polyp. The specimen consists of one irregular fragment of light bolivar soft tissue that measures 0.6 cm. The specimen is totally submitted in one cassette. TAMMY/ 02/20/2025 CPT:63008
--- NOTE | 2025-02-20 11:07 | OP.COLON_ITS ---
Patient Name: Jose Roberto Fragoso Procedure Date: 02/20/2025 10:21 AM Date of : 1950 Age: 75 Procedure: Colonoscopy Indications: High risk colon cancer surveillance: Personal history of colonic polyps Providers: Esteban Eugene MD Referring MD: Ganga Acosta Medicines: Propofol per Anesthesia Patient Profile: This is a 75 year old male. Refer to note in patient chart for documentation of history and physical. Last Colonoscopy: 5 years ago. Complications: No immediate complications. Estimated blood loss: Minimal. Procedure: Pre-Anesthesia Assessment: - Prior to the procedure, a History and Physical was performed, and patient medications and allergies were reviewed. The patient's tolerance of previous anesthesia was also reviewed. The risks and benefits of the procedure and the sedation options and risks were discussed with the patient. All questions were answered, and informed consent was obtained. Prior Anticoagulants: The patient has taken no anticoagulant or antiplatelet agents. After reviewing the risks and benefits, the patient was deemed in satisfactory condition to undergo the procedure. After I obtained informed consent, the scope was passed under direct vision. Throughout the procedure, the patient's blood pressure, pulse, and oxygen saturations were monitored continuously. The colonoscope was introduced through the anus and advanced to the cecum, identified by appendiceal orifice and ileocecal valve. The colonoscopy was performed without difficulty. The patient tolerated the procedure well. The quality of the bowel preparation was good. The ileocecal valve, appendiceal orifice, and rectum were photographed. Scope In: 10:27:59 AM Scope Withdrawal Time 0 hours 7 minutes 45 seconds Scope Out: 11:03:31 AM Total Procedure Duration Time 0 hours 35 minutes 32 seconds Findings: A medium polyp was found in the cecum. The polyp was sessile. The polyp was removed with a hot snare. Resection and retrieval were complete. The exam was otherwise without abnormality on direct and retroflexion views. Impression: - One medium polyp in the cecum, removed with a hot snare. Resected and retrieved. - The examination was otherwise normal on direct and retroflexion views. Recommendation: - Discharge patient to home. - Resume previous diet. - Continue present medications. - Await pathology results. - Repeat colonoscopy in 5 years for surveillance. Procedure Code(s): --- Professional --- 42379, Colonoscopy, flexible; with removal of tumor(s), polyp(s), or other lesion(s) by snare technique Diagnosis Code(s): --- Professional --- Z86.010, Personal history of colonic polyps D12.0, Benign neoplasm of cecum CPT copyright 2021 [employer] [place] [employer]. All rights reserved. The codes documented in this report are preliminary and upon vice president [employer] market insights review may be revised to meet current compliance requirements. Esteban Eugene MD 02/20/2025 11:06:43 AM This report has been signed electronically. Number of Addenda: 0 Note Initiated On: 02/20/2025 10:21 AM
--- NOTE | 2025-02-20 11:07 | OP.CCLET_ITS ---
02/20/2025 Ganga Acosta Re : Colonoscopy procedure for Jose Roberto Hongr Karla This procedure was performed on Thursday, February 20, 2025. My impressions and recommendations are as follows: Impressions : - One medium polyp in the cecum, removed with a hot snare. Resected and retrieved. - The examination was otherwise normal on direct and retroflexion views. Recommendations : - Discharge patient to home. - Resume previous diet. - Continue present medications. - Await pathology results. - Repeat colonoscopy in 5 years for surveillance. My findings are described in the full procedure note, which is enclosed. If I can be of further assistance, please feel free to contact me at Doctor phone number(s): , Work: . Sincerely, Esteban Eugene MD 02/20/2025 11:06:43 AM This report has been signed electronically.
--- NOTE | 2025-02-20 11:15 | PCM.POST.ANE ---
Anesthesia: Postop Eval I Current Vital Signs Temperature: 97.5 F Pulse Rate: 75 Blood Pressure: 136/90 Respiratory Rate: 22 Pulse Ox: 93 Oxygen Delivery Method: Room Air Assessment Airway patent: Yes Spontaneous unlabored respirations: Yes Mental status: Asleep nausea: No Vomiting: No Anesthesia Complication: No Fluid Hydration Crystalloid volume administer (ml): 700 Total IV fluid infused: 700 Progress Note Anesthesia document: Postop Eval 1 completed: Yes
--- NOTE | 2025-02-20 11:47 | PCM.POSTANE2 ---
Anesthesia Postop Eval I Sum Postop Eval Completion status Anesthesia document: Postop Eval 1 completed: Yes Anesthesia Postop Eval I Summary Anesthesia Postop Eval I Summary: Anesthesia Postop Eval I: Assessment Summary Airway patent Yes 02/20/25 11:16 [email or web address] Spontaneous unlabored Yes 02/20/25 11:16 [email or web address] respirations Mental status Asleep 02/20/25 11:16 [email or web address] nausea No 02/20/25 11:16 [email or web address] Vomiting No 02/20/25 11:16 [email or web address] Anesthesia Postop Eval I: Fluid Summary Crystalloid volume administer 700 02/20/25 11:16 [email or web address] (ml) Colloids volume administered ( ml) Blood Product volume administered (ml) Total IV fluid infused 700 02/20/25 11:16 [email or web address] Anesthesia Postop Eval I: Summary Notes Anesthesia Complication No 02/20/25 11:16 [email or web address] Anesthesia Complication Comment: Post-operative progress note Anesthesia: Postop Eval II Evaluation Mental status: Awake Pain Level: 0 nausea: No Vomiting: No
== END 2025-02-20 12:16 | disposition home or self-care (01) ==
LOC: EN 09:19 → AC 09:21
PROVIDERS: PCP Family Medicine; Referring Provider Family Medicine; Visit Provider Surgery
PROC: 0DJD8ZZ Inspection of Lower Intestinal Tract, Via Natural or Artificial Opening Endoscopic (ICD-10-PCS; CPT 45378; principal; 2025-02-20 10:25)
DX: Z12.11 Encounter for screening for malignant neoplasm of colon (principal); M06.9 Rheumatoid arthritis, unspecified; D12.0 Benign neoplasm of cecum; G47.33 Obstructive sleep apnea (adult) (pediatric); J45.40 Moderate persistent asthma, uncomplicated; N40.0 Benign prostatic hyperplasia without lower urinary tract symptoms; K21.9 Gastro-esophageal reflux disease without esophagitis; Z79.899 Other long term (current) drug therapy; Z86.0100 Personal history of colon polyps, unspecified
CPT/HCPCS: 45385; 88305; J2405

== ENCOUNTER 2025-05-06 23:50 | Emergency (ER) | payer MEDICARE, SELFPAY ==
[2025-05-06 23:51] VITALS: BP 150/88; PULSE 74; RESP 18; TEMP 36.1; O2SAT 95; BMI 32.3
--- OUTSIDE RECORDS SUMMARY | 2025-05-07 00:16 | XMS RPT_ITS | CCD ---
Author Organization [facility] CliniSysd Care Team Providers Care Director Staffing Name Role Phone Ganga Acosta Unavailable Unavailable UNKNOWN, PROVIDER Unavailable Unavailable Karla, Ganga Unavailable Unavailable Karla, Ganga Unavailable Unavailable UNKNOWN, PROVIDER Unavailable Unavailable Karla, Ganga Unavailable Unavailable Karla, Ganga Unavailable Unavailable UNKNOWN, PROVIDER Unavailable Unavailable Ganga Acosta Unavailable Unavailable Dr. Ganga Acosta Primary Care Provider Dr. Ganga Acosta Referring Provider Elizabeth RN LPN LVN, RN LPN LVN-C Leia Attending Provider Elizabeth RN LPN LVN, RN LPN LVN-C Leia Referring Provider Dr. Markus Jeffries Referring Provider Dr. Markus Jeffries Other Provider [phone] Juvencio Baez Attending Provider Dr. Miky Fonseca Attending Provider Dr. Miky Fonseca Referring Provider Dr. Miky Fonseca Other Provider Dr. Delroy Tinajero Attending Provider Ganga Acosta Primary Care Provider Ganga Acosta Primary Care Provider Ganga Acosta Primary Care Provider Dr. Ganga Acosta Primary Care Provider Dr. Ganga Acosta Referring Provider Elizabeth HERNANDEZ NP-C Leia Attending Provider Dr. Delroy Tinajero Attending Provider Dr. Delroy Tinajero Referring Provider Dr. Joel Solorzano Emergency Provider Dr. Ayan Miller Attending Provider Dr. Ayan Miller Admit Provider Dr. Ayan Miller Other Provider Dr. Rc Cordova Other Provider [phone] Dr. Jean-Paul Gomes Other Provider Dr. Eri Vega Attending Provider Dr. Eri Vega Other Provider Ganga Acosta Primary Care Provider Dr. Ganga Acosta Primary Care Provider Dr. Delroy Tinajero Attending Provider Dr. Delroy Tinajero Referring Provider Dr. Joel Solorzano Emergency Provider Dr. Ayan Miller Attending Provider Dr. Ayan Miller Admit Provider Dr. Ayan Miller Other Provider Dr. Rc Cordova Other Provider [phone] Dr. Jean-Paul Gomes Other Provider [phone] Eri Vega Attending Provider Dr. Eri Vega Other Provider Dr. Ganga Acosta Primary Care Provider Dr. Ganga Acosta Referring Provider Dr. Miky Fonseca Attending Provider Dr. Ganga Acosta Primary Care Provider Dr. Ganga Acosta Referring Provider Dr. Miky Fonseca Attending Provider Karla GUTIERREZ, Ganga Doe Primary Care Provider Karla GUTIERREZ, Ganga Doe Primary Care Provider [phone] Karla GUTIERREZ, Ganga Primary Care Provider KARLA GUTIERREZ, DR SCHULER Primary Care Physician [phone] Karla GUTIERREZ, Ganga Doe Primary Care Provider [phone] MANJU GUTIERRES, DR JOE Enciso Attending Unavailab le PETRILLA , DR SCHULER Primary Care Unavailab ruddy DURAND MD, DR JOE Enciso Admitting Unavailab ruddy RUSSO MD FACP, RYLAN Peña Consulting Unavail able KRYSTA ELECTRONIC FUNDS TRANSFER COORDINATOR-EMBROIDERY ASSISTANT, CARMEN Shook Consulting Unavaila zay DURAND MD, DR JOE Enciso Attending Unavailab le PETRILLA , DR SCHULER Primary Care Unavailab ruddy DURAND MD, DR JOE Enciso Attending Unavailab le KARLA GUTIERREZ, DR SCHULER Primary Care Unavailab le KARLA GUTIERREZ, DR SCHULER Primary Care Unavailab ruddy FINNEY PA-C, BRANDON Peña Attending Unavailable MANJU GUTIERRES, DR JOE Enciso Attending Unavailab le PETRIPERICO GUTIERREZ, DR SCHULER Primary Care Unavailab ruddy DURAND MD, DR JOE Enciso Admitting Unavailab ruddy FISHER ELECTRONIC FUNDS TRANSFER COORDINATOR-EMBROIDERY ASSISTANT, ROSALBA L Consulting Unavai labruddy Acosta DO, Ganga Harris Primary Care Provide r Karla GUTIERREZ, Dr. Schuler Primary Care Provider Karla GUTIERREZ, Dr. Schuler Referring Provider Leia Shaikh Attending Provider Ruddy GUTIERREZ, Dr. Watson Emergency Provider Karla GUTIERREZ, Dr. Schuler Primary Care Provider Ruddy GUTIERREZ, Dr. Watson Attending Provider Mukesh GUTIERRES, Dr. Nelson Trejo Attending Provider Mukesh GUTIERRES, Dr. Nelson Trejo Referring Provider [phone] KARLA GUTIERREZ, DR SCHULER Primary Care Unavailab BRANDON Pisano PA-C Attending Unavailable SHAAN MAYORGA Referring Unavailable GANGA ACOSTA Primary Care Unavail able Karla GUTIERREZ, Dr. Schuler Referring Provider [phone] Valorie GUTIERRES, Dr. Orellana Attending Provider [phone] Valorie GUTIERRES, Dr. Orellana Other Provider Karla DO, [facility] Primary Care Provide r Karla GUTIERREZ, Dr. Schuler Primary Care Provider Elizabeth RN LPN LVN-C, Leia Attending Provider Petrilla, Ganga Primary Care Unavailable Johnson RN LPN LVN, Leia Attending Unavailable Walter Gallagher Attending Unavailable Petrilla, [place] Primary Care Unavailable Petrilla, Ganga Primary Care Unavailable Johnson RN LPN LVN, Leia Attending Unavailable Petrilla, Ganga Referring Unavailable Johnson RN LPN LVN, Leia Attending Unavailable Petrilla, Ganga Referring Unavailable Petrilla, Ganga Primary Care Unavailable Petrilla, Ganga Referring Unavailable Petrilla, Ganga Primary Care Unavailable Esteban Eugene Consulting Unavailable Esteban Eugene Attending Unavailable Esteban Eugene Attending Unavailable Gilmarlla, Ganga Referring Unavailable Petrilla, [place] Primary Care Unavailable Petrilla, Ganga Referring Unavailable Petrilla, Ganga Primary Care Unavailable Esteban Eugene Attending Unavailable Nelson Mayorga Attending Unavailable Nelson Mayorga Referring Unavailable Petrilla, [place] Primary Care Unavailable MCKINLEY GUZMAN Attending [facility] Unavail able [facility] Primary Care Unavail able MCKINLEY GUZMAN Attending Unavailable [facility] Primary Care Unavail able MCKINLEY GUZMAN Referring Unavailable [facility] Primary Care Unavail able SELF Referring Unavailable MCKINLEY GUZMAN Attending Unavailable PROVIDER, UNKNOWN Attending Unavailable PROVIDER, UNKNOWN Admitting Unavailable PETRILLA, [facility] Primary Care Unavail able MCKINLEY GUZMAN P Admitting Unavailable MCKINLEY GUZMAN P Attending Unavailable [facility] Primary Care Unavail able JONAH BRINK Attending Unavailable [facility] Primary Care Unavail able MCKINLEY GUZMAN P Referring Unavailable PETRILLA, [facility] Primary Care Unavail able PETRILLA, [facility] Primary Care Unavail able MCKINLEY GUZMAN P Referring Unavailable MCKINLEY GUZMAN P Attending Unavailable SELF Referring [facility] Primary Care Unavail able MCKINLEY GUZMAN Attending Unavailable PETRILLA, [facility] Primary Care Unavail able MCKINLEY GUZMAN P Attending Unavailable MCKINLEY GUZMAN [facility] Un[facility] Primary Care Unavail able SELF Referring Unavailable MCKINLEY GUZMAN Attending Unavailable SELF [facility] MCKINLEY GUZMAN Attending Unavailable SELF [facility] MCKINLEY GUZMAN Attending Unavailable MCKINLEY GUZMAN Attending Un[facility] Unavail able MCKINLEY GUZMAN Attending [facility] Unavail able MCKINLEY GUZMAN Referring Unavailable MCKINLEY GUZMAN Attending [facility] Unavail able MCKINLEY GUZMAN Attending Unavailable JONAH BRINK [facility]ending [facility] BRIT NYOOLA Attending Un[facility] Unavail able MCKINLEY GUZMAN Attending [facility] SELF Referring Unavailable SHAAN MAYORGA Attending [facility] Unavail able MCKINLEY GUZMAN Attending Un[facility] Unavail able MCKINLEY GUZMAN Attending Un[facility] Unavail able SHAAN MAYORGA Attending [facility] Unavail able MCKINLEY GUZMAN Attending Unavailable JONAH BRINK Attending [facility] Unavail able IRAM MILIAN Attending [facility] Unavailable IRAM MILIAN Attending Unavailable IRAM MILIAN Referring [facility] Unavailable ERICKSON HAILE Referring [facility] Care Unavailable ERICKSON HAILE Referring [facility] Care Unavailable PETRILLA GANGA Attending Un[facility] Care Unavailable ERICKSON HAILE Attending Un[facility] Care Unavailable WANG THOMAS Attending [facility] Unavailable Allergies Allergy Classification Reported Allergen(s) Allergy Type Date of Onset Reaction(s) Facility (20 sources) Doxycycline Drug Allergy 10-05-19 22 Hives [facility] (4 sources) Environmental allergy Allergy to substance 12-23-19 22 PT UNSURE OF REACTION [facility] (4 sources) peanut allergenic extract Drug Allergy 05-17-20 22 Food Allergy [facility] (20 sources) Wheat gluten extract; Translations: [GLUTEN] Drug Allergy 10-21-[address] [facility] (20 sources) Yeasts; Translations: [YEAST, DRIED] Drug Allergy 10-21-[address] [facility] (20 sources) peanut; Translations: [PEANUTS] Food Allergy 10-21-[address] [facility] (7 sources) Environmental Allergies: Uncoded; Translations: [Environmental Allergies: Uncoded] Allergy to substance 10-31-19 NEEDS FOLLOW-UP, Other [facility] Comment on above: TREES AND GRASS seasonal spring and fall (6 sources) Ascorbic Acid / Cholecalciferol / Vitamin A; Translations: [multivitamin] Drug Allergy Diarrhea [facility] (6 sources) Coffee Food allergy [facility] (1 source) Doxycycline Drug Allergy 04-02-20 [facility] Repository (4 sources) Tetracycline; Translations: [TETRACYCLINE] Drug Allergy 04-06-20 [facility] Medications Current Medications Medication Drug Class(es) Dates Sig (Normalized) Sig (Original) acetaminophen 1000 mg oral tablet (20 sources) Start: 08-22-2023 Tylenol Dose : 1,000 mg = 2 tab(s), Oral, TID, 0 Refill(s) Start Date: 08/22/23 Status: Ordered Repeat number: 1 Start: 07-27-2023 Tylenol 8 Hour 650 mg oral tablet, extended release Dose : 1,300 mg = 2 tab(s), Oral, BID, PRN as needed for pain Start Date: 07/27/23 Status: Ordered Start: 11-25-2020 End: 09-16-2021 take 1 tablet by mouth once daily as needed for pain Acetaminophen 650 MG tablet extended release Discontinued 650 mg PO DAILY as needed for Pain November 25, 2020 12:00am September 16, 2021 9:15am Start: 05-11-2016 End: 07-09-2018 take 2 tablets by mouth every six hours Acetaminophen 325 MG tablet Discontinued 650 mg PO EVERY 6 HOURS 28 0 May 11, 2016 12:00am July 09, 2018 7:39pm Start: 05-11-2016 End: 07-09-2018 take 650 mg by mouth every six hours Acetaminophen Discontinued 650 MG PO EVERY 6 HOURS May 11, 2016 12:00am July 09, 2018 7:39pm [id number] 200 actuat albuterol 0.09 mg/actuat metered dose inhaler (20 sources) beta2-Adrenergic Agonist Start: 07-18-2022 albut sherly 108 (90 Base) MCG/ACT inhaler 07/18/2022 Active Start: 10-05-2021 End: 04-02-2025 Albuterol Sulfate 90 mcg/act uation HFA aerosol inhaler Active 2 NMA INHALATION EVERY 6 HOURS as needed for ASTHMA 3 April 02, 2025 1:29pm Asthma Unspecified asthma, uncomplicated Start: 10-05-2021 Albuterol Sulf ate Active 2 INH INHALATION EVERY 6 HOURS 3 October 05, 2021 3:19pm Start: 10-05-2021 Albuterol Sulf ate Active 2 INH INHALATION EVERY 6 HOURS 3 October 05, 2021 3:19pm Start: 09-09-2021 End: 10-05-2021 Albuterol Sulfate 90 mcg/act uation HFA aerosol inhaler Discontinued 2 NMA INHALATION AT BEDTIME as needed for ASTHMA September 09, 2021 4:07pm October 05, 2021 3:20pm Start: 09-09-2021 End: 10-05-2021 take 1 puff(s) by inhalation at bedtime Albuterol Sulfate Discontinued 2 PUFF INHALATION AT BEDTIME September 09, 2021 4:07pm October 05, 2021 3:20pm Start: 09-09-2021 End: 10-05-2021 take 1 puff(s) by inhalation at bedtime Albuterol Sulfate Discontinued 2 PUFF INHALATION AT BEDTIME September 09, 2021 4:07pm October 05, 2021 3:20pm Start: 06-02-2021 End: 09-09-2021 take 1 puff(s) by inhalation every six hours Albuterol Sulfate Discontinued 2 PUFF INHALATION EVERY 6 HOURS 8.5 June 02, 2021 1:17pm September 09, 2021 4:07pm Start: 06-02-2021 End: 09-09-2021 Albuterol Sulfate 90 mcg/act uation HFA aerosol inhaler Discontinued 2 NMA INHALATION EVERY 6 HOURS as needed for shortness of breath or wheezing 8.5 2 June 02, 2021 12:00am September 09, 2021 4:07pm Asthma Unspecified asthma, uncomplicated Start: 06-02-2021 End: 09-09-2021 take 1 puff(s) by inhalation every six hours Albuterol Sulfate Discontinued 2 PUFF INHALATION EVERY 6 HOURS 8.5 June 02, 2021 12:00am September 09, 2021 4:07pm amoxicillin 500 mg oral capsule (20 sources) Penicillin-class Antibacterial Start: 04-27-2025 End: 05-04-2025 take 1 capsule by mouth twice daily amoxicillin (Amoxil) 500 MG capsule Indications: Poison norma , Sinus pain Take 1 capsule (500 mg) by mouth 2 times daily for 7 days. 14 capsule 04/27/2025 05/04/2025 Active Start: 09-20-2015 End: 02-03-2025 amoxicillin (POLYMOX, AMOXIL ) 500 mg capsule once daily. 09/20/2015 02/03/2025 Discontinued Comment on above: once daily. benzonatate 200 mg oral capsule (11 sources) Non-narcotic Antitussive Start: End: take 1 capsule by mouth three times daily as needed for cough benzonatate (Tessalon) 200 MG capsule Indications: Poison norma , Sinus pain Take 1 capsule (200 mg) by mouth 3 times daily as needed for cough. Do not crush or chew. 42 capsule 04/27/2025 05/27/2025 Active Start: 04-29-2016 End: 07-09-2018 take 2 capsules by mouth three times daily as needed for cough Benzonatate 100 MG capsule Discontinued 200 mg PO 3 TIMES DAILY NEEDED as needed for Cough April 29, 2016 12:00am July 09, 2018 7:39pm Start: 04-29-2016 End: 07-09-2018 take 200 mg by mouth three times daily as needed Benzonatate Discontinued 200 MG PO 3 TIMES DAILY NEEDED April 29, 2016 12:00am July 09, 2018 7:39pm brompheniramine maleate 0.4 mg/ml / dextromethorphan hydrobromide 2 mg/ml / pseudoephedrine hydrochloride 6 mg/ml oral solution (3 sources) alpha-Adrenergic Agonist, Uncompetitive O-jtpayt-N-aspartate Receptor Antagonist, Sigma-1 Agonist Start: 05-13-2024 End: 05-23-2024 brompheniramine-pseudoephedr ine-DM 30-2-10 MG/5ML syrup Indications: Bronchitis Take 5 mL by mouth as needed for allergies for up to 10 days. 120 mL 05/13/2024 05/23/2024 Active Budesonide-Formot sherly (20 sources) Corticosteroid, beta2-Adrenergic Agonist Start: 04-02-2025 Budesonide-Formoterol (Symbi katie) 160-4.5 mcg/actuation HFA aerosol inhaler Active 2 NMA INHALATION TWICE A DAY 3 3 April 02, 2025 1:29pm breathing Start: 04-08-2024 End: 04-02-2025 Budesonide-Formoterol (Symbi katie) 160-4.5 mcg/actuation HFA aerosol inhaler Discontinued 2 NMA INHALATION TWICE A DAY 3 3 April 08, 2024 2:17pm April 02, 2025 1:29pm breathing Start: 04-08-2024 Budesonide-For moterol (Symbicort) 160-4.5 mcg/actuation HFA aerosol inhaler Active 2 NMA INHALATION TWICE A DAY 3 3 April 08, 2024 2:17pm breathing Start: 04-08-2024 Budesonide-For moterol (Symbicort) 160-4.5 mcg/actuation HFA aerosol inhaler Active 2 NMA INHALATION TWICE A DAY 3 April 08, 2024 2:17pm Start: 03-26-2023 Symbicort 160- 4.5 MCG/ACT inhaler 03/26/2023 Active Start: 03-26-2023 End: 04-08-2024 Budesonide-Formoterol (Symbi katie) 160-4.5 mcg/actuation HFA aerosol inhaler Discontinued 2 NMA INHALATION TWICE A DAY 3 3 March 26, 2023 10:34am April 08, 2024 2:17pm breathing Start: 03-26-2023 End: 04-08-2024 Budesonide-Formoterol (Symbi katie) 160-4.5 mcg/actuation HFA aerosol inhaler Discontinued 2 NMA INHALATION TWICE A DAY 3 March 26, 2023 10:34am April 08, 2024 2:17pm Start: 06-06-2022 End: 03-26-2023 Budesonide-Formoterol (Symbi katie) 160-4.5 mcg/actuation HFA aerosol inhaler Discontinued 2 NMA INHALATION TWICE A DAY June 06, 2022 3:22am March 26, 2023 10:36am breathing Start: 06-06-2022 End: 03-26-2023 Budesonide-Formoterol (Symbi katie) 160-4.5 mcg/actuation HFA aerosol inhaler Discontinued 2 NMA INHALATION TWICE A DAY June 06, 2022 3:22am March 26, 2023 10:36am Start: 06-06-2022 Budesonide-For moterol (Symbicort) 160-4.5 mcg/actuation HFA aerosol inhaler Active 2 INH INHALATION TWICE A DAY June 06, 2022 2:22am Start: 06-06-2022 Budesonide-For moterol (Symbicort) 160-4.5 mcg/actuation HFA aerosol inhaler Active 2 INH INHALATION TWICE A DAY June 06, 2022 3:22am Start: 03-22-2022 End: 06-06-2022 Budesonide-Formoterol (Symbi katie) 160-4.5 mcg/actuation HFA aerosol inhaler Discontinued 2 NMA INHALATION TWICE A DAY 3 3 March 22, 2022 10:26am June 06, 2022 3:23am Start: 03-22-2022 End: 06-06-2022 Budesonide-Formoterol (Symbi katie) 160-4.5 mcg/actuation HFA aerosol inhaler Discontinued 2 NMA INHALATION TWICE A DAY 3 March 22, 2022 10:26am June 06, 2022 3:23am Start: 03-22-2022 End: 06-06-2022 Budesonide-Formoterol (Symbi katie) 160-4.5 mcg/actuation HFA aerosol inhaler Discontinued 2 INH INHALATION TWICE A DAY 3 March 22, 2022 9:26am June 06, 2022 2:23am Start: 03-22-2022 End: 06-06-2022 Budesonide-Formoterol (Symbi katie) 160-4.5 mcg/actuation HFA aerosol inhaler Discontinued 2 INH INHALATION TWICE A DAY 3 March 22, 2022 10:26am June 06, 2022 3:23am Start: 12-22-2021 End: 03-22-2022 Budesonide-Formoterol (Symbi katie) 160-4.5 mcg/actuation HFA aerosol inhaler Discontinued 2 NMA INHALATION TWICE A DAY 3 3 December 22, 2021 10:04am March 22, 2022 10:27am Start: 12-22-2021 End: 03-22-2022 Budesonide-Formoterol (Symbi katie) 160-4.5 mcg/actuation HFA aerosol inhaler Discontinued 2 NMA INHALATION TWICE A DAY 3 December 22, 2021 10:04am March 22, 2022 10:27am Start: 12-22-2021 End: 03-22-2022 Budesonide-Formoterol (Symbi katie) 160-4.5 mcg/actuation HFA aerosol inhaler Discontinued 2 INH INHALATION TWICE A DAY 3 December 22, 2021 9:04am March 22, 2022 9:27am Start: 12-22-2021 End: 03-22-2022 Budesonide-Formoterol (Symbi katie) 160-4.5 mcg/actuation HFA aerosol inhaler Discontinued 2 INH INHALATION TWICE A DAY 3 December 22, 2021 10:04am March 22, 2022 10:27am Start: 12-22-2021 Budesonide-For moterol (Symbicort) 160-4.5 mcg/actuation HFA aerosol inhaler Active 2 INH INHALATION TWICE A DAY 3 December 22, 2021 10:04am Start: 12-07-2020 End: 12-22-2021 Budesonide-Formoterol (Symbi katie) 160-4.5 mcg/actuation HFA aerosol inhaler Discontinued 2 NMA INHALATION TWICE A DAY 3 3 December 07, 2020 10:49am December 22, 2021 10:05am Start: 12-07-2020 End: 12-22-2021 Budesonide-Formoterol (Symbi katie) 160-4.5 mcg/actuation HFA aerosol inhaler Discontinued 2 NMA INHALATION TWICE A DAY 3 December 07, 2020 10:49am December 22, 2021 10:05am Start: 12-07-2020 End: 12-22-2021 Budesonide-Formoterol (Symbi katie) 160-4.5 mcg/actuation HFA aerosol inhaler Discontinued 2 INH INHALATION TWICE A DAY 3 December 07, 2020 9:49am December 22, 2021 9:05am Start: 12-07-2020 End: 12-22-2021 Budesonide-Formoterol (Symbi katie) 160-4.5 mcg/actuation HFA aerosol inhaler Discontinued 2 INH INHALATION TWICE A DAY 3 December 07, 2020 10:49am December 22, 2021 10:05am Start: 12-07-2020 End: 12-07-2020 take 1 puff(s) by inhalation twice daily Budesonide-Formoterol (Symbicort) 160-4.5 mcg/actuation HFA aerosol inhaler Discontinued 2 PUFF INHALATION TWICE A DAY December 07, 2020 10:23am December 07, 2020 10:51am Start: 12-07-2020 End: 12-07-2020 Budesonide-Formoterol (Symbi katie) 160-4.5 mcg/actuation HFA aerosol inhaler Discontinued 2 NMA INHALATION TWICE A DAY December 07, 2020 12:00am December 07, 2020 10:51am Start: 12-07-2020 End: 12-07-2020 take 1 puff(s) by inhalation twice daily Budesonide-Formoterol (Symbicort) 160-4.5 mcg/actuation HFA aerosol inhaler Discontinued 2 PUFF INHALATION TWICE A DAY December 06, 2020 11:00pm December 07, 2020 9:51am Start: 12-07-2020 End: 12-07-2020 take 1 puff(s) by inhalation twice daily Budesonide-Formoterol (Symbicort) 160-4.5 mcg/actuation HFA aerosol inhaler Discontinued 2 PUFF INHALATION TWICE A DAY December 07, 2020 12:00am December 07, 2020 10:51am Start: 11-18-2018 End: 03-23-2020 Budesonide-Formoterol (Symbi katie) 160-4.5 mcg/actuation HFA aerosol inhaler Discontinued 2 NMA INHALATION Q12H 10.2 6 September 11, 2019 8:39am March 23, 2020 8:31am Other forms of dyspnea Start: 11-18-2018 End: 03-23-2020 take 1 puff(s) by inhalation every twelve hours Budesonide-Formoterol (Symbicort) 160-4.5 mcg/actuation HFA aerosol inhaler Discontinued 2 PUFF INHALATION Q12H 10.2 September 11, 2019 8:39am March 23, 2020 8:31am budesonide/formoterol fumara te (SYMBICORT INHALATION) (20 sources) budesonide/formo terol fumarate (SYMBICORT INHALATION) Inhale as instructed. Active budesonide/formo terol fumarate (SYMBICORT INHALATION) Inhale as instructed. 0 Active Comment on above: Inhale as instructed . chlorhexidine gluconate 1.2 mg/ml mouthwash (6 sources) Start: 023 chlorhexidine 0.12% oral rinse liquid 0.018 gram(s) Dose = 15 mL, Oral, BID, # 473 mL, 0 Refill(s) Start Date: 07/27/23 Status: Ordered Quantity: 473.0 Unit: mL Repeat number: 1 cholecalciferol 0.05 mg oral capsule (20 sources) Vitamin D Start: 022 take 1 capsule by mouth once daily Cholecalciferol (Vitamin D3) 50 mcg (2,000 unit) capsule Active 50 ug PO DAILY December 27, 2021 12:00am supplement Start: 11-25-2020 End: 12-26-2021 Cholecalciferol (Vitamin D3) 50 MCG capsule Discontinued 2000 U PO DAILY November 25, 2020 12:00am December 26, 2021 4:55pm SUPPLEMENT Start: 11-25-2020 End: 12-26-2021 take 2000 [IU] by mouth once daily Cholecalciferol (Vitamin D3) Discontinued 2000 UNIT PO DAILY November 25, 2020 12:00am December 26, 2021 4:55pm Cranberry Extract (20 sources) Non-Standardized Food Allergenic Extract, Non-Standardized Plant Allergenic Extract Start: 04-02-2025 take 1 capsule by mouth once daily Cranberry Extract 425 mg capsule Active 425 mg PO daily April 02, 2025 12:00am administer with a meal Start: 07-27-2023 take 1 tablet by levi once daily cranberry oral tablet Dose = 1 tab(s), Oral, Daily, 0 Refill(s) Start Date: 07/27/23 Status: Ordered Repeat number: 1 Start: 07-27-2023 take 1 tablet by levi th once daily cranberry oral tablet Dose = 1 tab(s), Oral, Daily, 0 Refill(s) Start Date: 07/27/23 Status: Ordered Start: 11-25-2020 End: 12-26-2021 take 500 mg by mouth once daily Cranberry Extract Disc ontinued 500 MG PO DAILY November 25, 2020 4:42pm December 26, 2021 4:55pm Start: 11-25-2020 End: 12-26-2021 take 1 capsule by mouth once daily Cranberry Extract 500 MG capsule Discontinued 500 mg PO DAILY November 25, 2020 12:00am December 26, 2021 4:55pm SUPPLEMENT Start: 11-25-2020 End: 12-26-2021 take 1 capsule by mouth once daily Cranberry Extract 500 MG capsule Discontinued 500 mg PO DAILY November 25, 2020 12:00am December 26, 2021 4:55pm Start: 11-25-2020 End: 12-26-2021 take 500 mg by mouth once daily Cranberry Extract Disc ontinued 500 MG PO DAILY November 24, 2020 11:00pm December 26, 2021 3:55pm Start: 11-25-2020 End: 12-26-2021 take 500 mg by mouth once daily Cranberry Extract Disc ontinued 500 MG PO DAILY November 25, 2020 12:00am December 26, 2021 4:55pm CRANBERRY PO Escobar e by mouth. Active CRANBERRY PO Escobar e by mouth. 0 Active desonide 0.5 mg/ml topical cream (1 source) Corticosteroid Start: 04-27-2025 End: 04-27-2026 desonide (DesOwen) 0.05 % cream Indications: Poison norma Apply topically 2 times daily as needed for irritation. 15 g 2 04/27/2025 04/27/2026 Active diclofenac sodium 0.01 mg/mg topical gel (1 source) Nonsteroidal Anti-inflammatory Drug Start: 03-30-2022 End: 04-29-2022 apply 2 g topically four times daily diclofenac (VOLTAREN) 1 % topical gel Indications: Charcot's joint of right foot Apply 2 g to affected area four times daily. 240 g 0 03/30/2022 04/29/2022 Active Comment on above: Apply 2 g to affected area four times da sanket. DULoxetine 30 mg delayed release oral capsule (20 sources) Serotonin and Norepinephrine Reuptake Inhibitor Start: 12-27-2021 End: 05-16-2022 take 1 capsule by mouth once daily DULoxetine (CYMBALTA) 30 mg capsule Take 30 mg by mouth once daily. 01/11/2022 Active Start: 12-27-2021 End: 05-16-2022 take 1 capsule by mouth once daily Duloxetine 60 mg capsule,delayed release(DR/EC) Discontinued 60 mg PO DAILY 30 January 11, 2022 5:15pm May 16, 2022 4:23pm begin after completing one week course of duloxetine 30mg daily Comment on above: Take 30 mg by mouth once daily. famotidine 20 mg oral tablet (19 sources) Histamine-2 Receptor Antagonist Start: 04-02-2024 take 1 tablet by mouth once daily Famotidine 20 mg tablet Active 20 mg PO daily April 02, 2024 12:00am Start: 11-07-2023 End: 11-21-2023 Pepcid 20 mg oral tablet Dos e : 20 mg = 1 tab(s), Oral, qDay, # 14 tab(s), 0 Refill(s), Pharmacy: [facility] #[id number], 177.8, cm, 11/06/23 16:24:00 EDT, Height, kg, 11/06/23 16:24:00 EDT, Dosing Weight Start Date: 11/07/23 Stop Date: 11/21/23 Status: Ordered Quantity: 14.0 Unit: tab(s) Repeat number: 1 Start: 08-22-2023 End: 09-05-2023 Pepcid 20 mg oral tablet Dos e : 20 mg = 1 tab(s), Oral, qDay, # 14 tab(s), 0 Refill(s), Pharmacy: [facility] #[id number], 177.8, cm, 08/21/23 11:18:00 EST, Height, kg, 08/21/23 11:18:00 EST, Dosing Weight Start Date: 08/22/23 Stop Date: 09/05/23 Status: Ordered Start: 11-25-2020 End: 12-26-2021 take 1 tablet by mouth once daily Famotidine 20 MG tablet Discontinued 20 mg PO DAILY November 25, 2020 12:00am December 26, 2021 4:55pm GERD flurbiprofen 100 mg oral tablet (20 sources) Nonsteroidal Anti-inflammatory Drug Start: 12-19-2022 take 1 tablet by mouth once daily as needed for pain Flurbiprofen 100 mg tablet Active 100 mg PO DAILY as needed for pain 90 3 December 19, 2022 8:26am Start: 12-27-2021 End: 12-19-2022 take 1 tablet by mouth three times daily as needed for pain Flurbiprofen 100 mg tablet Discontinued 100 mg PO THREE TIMES A DAY as needed for pain 90 1 January 11, 2022 5:17pm May 16, 2022 2:22pm fluticasone propionate 0.05 mg/actuat metered dose nasal spray (20 sources) Corticosteroid Start: 09-18-2022 End: 04-02-2025 Fluticasone Propionate 50 mcg/actuation spray,suspension Active 2 NMA INTRANASAL DAILY 3 3 April 02, 2025 1:29pm administer into each nostril Start: 09-18-2022 take 1 spray(s) nasa l route once daily Fluticasone Propionate Active 2 SPRAY INTRANASAL DAILY 18.2 September 18, 2022 1:00am administer into each nostril Start: 11-25-2020 End: 12-26-2021 Fluticasone Propionate 1 SPR AY spray,suspension Discontinued 2 NMA NASAL DAILY November 25, 2020 12:00am December 26, 2021 4:55pm SINUS Start: 11-25-2020 End: 12-26-2021 Fluticasone Propionate Disco ntinued 2 SPRAY NASAL DAILY November 25, 2020 12:00am December 26, 2021 4:55pm Fluticasone Propion-Salmeterol (20 sources) Corticosteroid, beta2-Adrenergic Agonist Start: 12-26-2021 Fluticasone Propion-Salmeterol (Advair Diskus) 100-50 mcg/dose blister with device Active 1 INH INHALATION TWICE A DAY December 26, 2021 4:52pm Start: 12-26-2021 End: 09-18-2022 Fluticasone Propion-Salmeter ol (Advair Diskus) 100-50 mcg/dose blister with device Discontinued 1 NMA INHALATION TWICE A DAY December 26, 2021 12:00am September 18, 2022 11:58am breathing Start: 12-26-2021 End: 09-18-2022 Fluticasone Propion-Salmeter ol (Advair Diskus) 100-50 mcg/dose blister with device Discontinued 1 NMA INHALATION TWICE A DAY December 26, 2021 12:00am September 18, 2022 11:58am Start: 12-26-2021 End: 09-18-2022 Fluticasone Propion-Salmeter ol (Advair Diskus) 100-50 mcg/dose blister with device Discontinued 1 INH INHALATION TWICE A DAY December 26, 2021 12:00am September 18, 2022 11:58am Start: 12-26-2021 End: 09-18-2022 Fluticasone Propion-Salmeter ol (Advair Diskus) 100-50 mcg/dose blister with device Discontinued 1 INH INHALATION TWICE A DAY December 25, 2021 11:00pm September 18, 2022 10:58am Start: 12-26-2021 Fluticasone Pr opion-Salmeterol (Advair Diskus) 100-50 mcg/dose blister with device Active 1 INH INHALATION TWICE A DAY December 25, 2021 11:00pm Start: 12-26-2021 Fluticasone Pr opion-Salmeterol (Advair Diskus) 100-50 mcg/dose blister with device Active 1 INH INHALATION TWICE A DAY December 26, 2021 12:00am Start: 07-07-2015 End: 07-09-2018 take 1 puff(s) by inhalation twice daily Fluticasone Propion-Salmeterol Discontinued 2 PUFF INHALATION TWICE A DAY July 07, 2015 11:15am July 09, 2018 7:39pm Start: 07-07-2015 End: 07-09-2018 take 1 puff(s) by inhalation twice daily Fluticasone Propion-Salmeterol 1 PUFF inhaler Discontinued 2 NMA INHALATION TWICE A DAY July 07, 2015 1:00am July 09, 2018 7:39pm Start: 07-07-2015 End: 07-09-2018 take 1 puff(s) by inhalation twice daily Fluticasone Propion-Salmeterol Discontinued 2 PUFF INHALATION TWICE A DAY July 07, 2015 12:00am July 09, 2018 6:39pm Start: 07-07-2015 End: 07-09-2018 take 1 puff(s) by inhalation twice daily Fluticasone Propion-Salmeterol Discontinued 2 PUFF INHALATION TWICE A DAY July 07, 2015 1:00am July 09, 2018 7:39pm folic acid 1 mg oral tablet (20 sources) Start: 07-07-2015 End: 07-09-2018 folic acid 1 mg tablet once daily. 10/07/2015 Active Comment on above: once daily. gabapentin 300 mg oral capsule (20 sources) Anti-epileptic Agent Start: 04-21-2025 End: 05-21-2025 take 1 capsule by mouth twice daily gabapentin (NEURONTIN) 300 mg capsule Indications: Chronic pain of left ankle Take 1 capsule by mouth two times a day for 30 days. 60 capsule 04/21/2025 05/21/2025 Active Start: 12-18-2024 End: 02-14-2025 Gabapentin 300 mg capsule Ac tive mg PO April 02, 2025 12:00am Start: 09-04-2024 End: 12-03-2024 take 2 capsules by mouth once daily at bedtime gabapentin (NEURONTIN) 300 mg capsule Indications: Postoperative state , Neuropathy Take 2 capsules by mouth daily at bedtime for 90 days. 90 capsule 1 09/04/2024 Active Start: 08-07-2024 End: 04-29-2025 take 1 tablet by mouth once daily gabapentin (NEURONTIN) 600 mg tablet Indications: Pain in left foot , Charcot joint of left foot Take 1 tablet by mouth once daily for 90 days. 30 tablet 2 01/29/2025 02/16/2025 Discontinued Start: 04-19-2023 End: 04-02-2025 take 1 capsule by mouth once daily gabapentin (Neurontin) 400 MG capsule Take 400 mg by mouth Nightly. 04/19/2023 Active Start: 11-30-2022 End: 03-30-2023 take 1 capsule by mouth once daily at bedtime gabapentin (NEURONTIN) 400 mg capsule Indications: Charcot's arthropathy , Neuropathy Take 1 capsule by mouth daily at bedtime for 120 days. 30 capsule 3 11/30/2022 03/30/2023 Active Start: 09-18-2022 End: 02-19-2025 take 4 capsules by mouth at bedtime Gabapentin 100 mg capsule Discontinued 400 mg PO AT BEDTIME September 18, 2022 11:48am February 19, 2025 8:46am pain Start: 09-18-2022 take 400 mg by mouth at bedtim e Gabapentin Active 400 MG PO AT BEDTIME September 18, 2022 11:48am Start: 06-01-2022 End: 11-17-2022 take 1 capsule by mouth once daily at bedtime gabapentin (NEURONTIN) 400 mg capsule Indications: Charcot's arthropathy , Neuropathy Take 1 capsule by mouth daily at bedtime for 120 days. 30 capsule 3 07/20/2022 11/17/2022 Active Start: 05-16-2022 End: 09-18-2022 take 300 mg by mouth at bedtime Gabapentin Discontinue d 300 MG PO AT BEDTIME May 16, 2022 12:00am September 18, 2022 11:48am Start: 05-04-2022 End: 09-18-2022 take 3 capsules by mouth at bedtime Gabapentin 100 mg capsule Discontinued 300 mg PO AT BEDTIME May 16, 2022 12:00am September 18, 2022 11:48am pain Comment on above: Take 3 capsules by [facility] daily at bedtime. Take 1 capsule by mo [facility] daily at bedtime for 30 days. Take 1 capsule by mo [facility] daily at bedtime for 120 days. Take 1 capsule by mo [facility] daily at bedtime for 90 days. Glucosamine Chondroitin MSM Complex (6 sources) Start: 11-11-2014 take 1 tablet by mouth twice daily Glucosamine Chondroitin MSM Complex Dose = 1 tab(s), Oral, BID, 0 Refill(s) Start Date: 11/11/14 Status: Ordered Repeat number: 1 Start: 11-11-2014 take 1 tablet by levi twice daily Glucosamine Chondroitin MSM Complex Dose = 1 tab(s), Oral, BID, 0 Refill(s) Start Date: 11/11/14 Status: Ordered hydroxychloroquine sulfate 200 mg oral tablet (20 sources) Antimalarial, Antirheumatic Agent Start: 01-05-2021 End: 08-11-2024 hydrOXYchloroQUINE (PLAQUENIL) 200 mg tablet 01/05/2022 Active ipratropium bromide 0.042 mg/actuat metered dose nasal spray (10 sources) Anticholinergic Start: 10-01-2023 End: 05-13-2025 take 2 spray(s) nasal route three times daily ipratropium (Atrovent) 0.06 % nasal spray Indications: Viral URI Administer 2 sprays into each nostril 3 times daily for 7 days. 15 mL 10/01/2023 05/13/2025 Active latanoprost 0.05 mg/ml ophthalmic solution (15 sources) Prostaglandin Analog Start: 04-02-2025 Latanoprost 0.005 % drops Active 1 NMA OPHTHALMIC daily April 02, 2025 12:00am Start: 04-08-2024 take 1 drop(s) into the eye(s) once daily latanoprost (Xalatan) 0.005 % ophthalmic solution place 1 drop into both eyes once daily 04/08/2024 Active Start: 07-27-2023 take 1 dose into the eye(s) once daily at bedtime latanoprost 0.005% ophthalmic solution Dose = 1 drop(s), Ophthalmic, qHS, # 2.5 mL, 0 Refill(s) Start Date: 07/27/23 Status: Ordered Quantity: 2.5 Unit: mL Repeat number: 1 leflunomide 20 mg oral tablet (20 sources) Antirheumatic Agent Start: 05-16-2022 leflunomid e (Arava) 20 MG tablet 04/17/2023 Active Start: 11-25-2020 End: 12-01-2020 take 1 tablet by mouth once daily Leflunomide 20 MG tablet Discontinued 20 mg PO DAILY November 25, 2020 12:00am December 01, 2020 11:52am Start: 05-31-2020 End: 07-12-2020 take 1 tablet by mouth once daily Leflunomide 10 mg tablet Discontinued 10 mg PO DAILY May 31, 2020 12:00am July 12, 2020 4:17pm Comment on above: Take 20 mg by mouth once daily. linezolid 600 mg oral tablet (20 sources) Oxazolidinone Antibacterial Start: 2021 linezolid (ZYVOX) 600 mg tablet 10/05/2021 Active loratadine 10 mg oral tablet (1 source) Start: 2024 take 1 tablet by mouth once daily Loratadine 10 mg tablet Active 10 mg PO DAILY 90 3 April 02, 2025 12:00am methylPREDNISolone 4 mg oral tablet (1 source) Corticosteroid Start: 2024 End: 2024 methylPREDNISolone (Medrol Dospak) 4 MG tablets Indications: Poison norma Take as directed on package. 21 tablet 04/27/2025 05/04/2025 Active mometasone furoate 0.05 mg/actuat metered dose nasal spray (20 sources) Corticosteroid Start: 2014 Nasonex 50 mcg/inh nasal spray Dose = 2 spray(s), Nasal, Daily, PRN for allergy symptoms, 0 Refill(s) Start Date: 11/11/14 Status: Ordered Repeat number: 1 mometasone (NASO NEX) 50 mcg/actuation nasal spray Use 2 Sprays in the nose once daily. Active Comment on above: Use 2 Sprays in the nose once daily. montelukast 10 mg oral tablet (20 sources) Leukotriene Receptor Antagonist Start: End: montelukast (Singulair) 10 MG tablet 04/19/2023 Active Comment on above: once daily. Multiple Vitamin tablet (12 sources) take 1 tablet by mouth once daily Multiple Vitamin tablet Take 1 tablet by mouth daily. Active take 1 tablet by mouth once anastasiya y Multiple Vitamin tablet Take 1 tablet by mouth daily. 0 Active Multivitamin (Multiple Vitam ins) tablet (9 sources) Start: 05-16-2022 Multivitamin ( Multiple Vitamins) tablet Active 1 {tbl} PO DAILY May 16, 2022 12:00am supplement Start: 05-16-2022 Multivitamin ( Multiple Vitamins) tablet Active 1 {tbl} PO DAILY May 16, 2022 12:00am Start: 05-16-2022 take 1 tablet by levi th once daily Multivitamin (Multiple Vitamins) tablet Active 1 TABLET PO DAILY May 15, 2022 11:00pm Start: 05-16-2022 take 1 tablet by levi th once daily Multivitamin (Multiple Vitamins) tablet Active 1 TABLET PO DAILY May 16, 2022 12:00am Multivitamin capsule (20 sources) take 1 capsule by mo uth once daily Multivitamin capsule Take 1 capsule by mouth once daily. Active take 1 capsule by mouth once brandi ly Multivitamin capsule Take 1 capsule by mouth once daily. 0 Active Comment on above: Take 1 capsule by mo uth once daily. Multivitamin preparation (6 sources) Start: 04-06-2015 take 1 tablet by mouth once daily Multivitamin Dose = 1 tab(s), Oral, Daily Start Date: 04/06/15 Status: Ordered Repeat number: 1 Start: 04-06-2015 take 1 tablet by levi th once daily Multivitamin Dose = 1 tab(s), Oral, Daily Start Date: 04/06/15 Status: Ordered mupirocin 0.02 mg/mg topical ointment (1 source) RNA Synthetase Inhibitor Antibacterial Start: 05-07-2023 End: 05-17-2023 mupirocin (Bactroban) 2 % ointment Apply topically three times daily for 10 days. 30 g 1 05/07/2023 05/17/2023 Active sulfamethoxazole 800 mg / trimethoprim 160 mg oral tablet (20 sources) Dihydrofolate Reductase Inhibitor Antibacterial, Sulfonamide Antimicrobial Start: 11-07-2023 End: 11-21-2023 sulfamethoxazole-tr imethoprim 800 mg-160 mg oral tablet Dose = 1 tab(s), Oral, BID, 2 weeks postoperatively. drink plenty of fluids, X 14 day(s), # 28 tab(s), 0 Refill(s), [facility]acy: [facility] #[id number], 177.8, cm, 11/06/23 16:24:00 EDT, Height, 105, kg, 11/06/23 16:24:00 EDT, Dosing Weight Start Date: 11/07/23 Stop Date: 11/21/23 Status: Ordered Start: 08-22-2023 End: 09-05-2023 take 1 tablet by mouth twice daily Bactrim DS 800 mg-160 mg oral tablet Dose = 1 tab(s), Oral, BID, X 14 day(s), # 28 tab(s), 0 Refill(s), [facility]: [facility] #[id number], 177.8, cm, 08/21/23 11:18:00 EST, Height, 100, kg, 08/21/23 11:18:00 EST, Dosing Weight Start Date: 08/22/23 Stop Date: 09/05/23 Status: Ordered Start: 05-11-2016 End: 07-09-2018 Sulfamethoxazole-Trimethopri m 1 TABLET tablet Discontinued 1 {tbl} PO TWICE DAILY WITH MEALS 14 May 11, 2016 6:42am July 09, 2018 7:38pm Start: 05-11-2016 End: 07-09-2018 take 1 tablet by mouth twice daily at mealtime Sulfamethoxazole-Trimethoprim Discontinued 1 TABLET PO TWICE DAILY WITH MEALS May 11, 2016 6:42am July 09, 2018 7:38pm Symbicort 160 mcg-4.5 mcg/inh Inhaler (6 sources) Start: 07-27-2023 take 1 dose by inhalation once daily Symbicort 160 mcg-4.5 mcg/inh Inhaler Dose = 2 puff(s), Inhalation, Daily, 0 Refill(s) Start Date: 07/27/23 Status: Ordered Repeat number: 1 Start: 07-27-2023 take 1 dose by inhal ation once daily Symbicort 160 mcg-4.5 mcg/inh Inhaler Dose = 2 puff(s), Inhalation, Daily, 0 Refill(s) Start Date: 07/27/23 Status: Ordered 60 actuat tiotropium 0.70665 mg/actuat inhalation spray (20 sources) Anticholinergic Start: 07-27-2023 Spiriva Respim at 1.25 mcg/inh inhalation aerosol 2 puff(s), Inhalation, qDay Start Date: 07/27/23 Status: Ordered Repeat number: 1 Start: 03-26-2023 Spiriva Respim at 1.25 MCG/ACT inhaler 03/26/2023 Active Start: 12-07-2020 End: 04-02-2025 take 1.25 ug by inhalation once daily Tiotropium [place] (Spiriva Respimat) 1.25 mcg/actuation mist Active 2 NMA INHALATION DAILY 3 April 02, 2025 1:29pm BREATHING Start: 12-07-2020 End: 09-09-2021 Tiotropium [place] 1.25 mcg/actuation mist Discontinued 2 NMA INHALATION DAILY 3 December 07, 2020 10:50am September 09, 2021 4:07pm BREATHING Start: 11-10-2020 End: 12-07-2020 Tiotropium [place] 4 GM mist Discontinued 2 NMA INHALATION DAILY November 10, 2020 1:28pm December 07, 2020 10:51am BREATHING Start: 06-06-2019 End: 11-10-2020 take 1.25 ug by inhalation once daily Tiotropium [place] (Spiriva Respimat) 1.25 mcg/actuation mist Discontinued 2 NMA INHALATION DAILY 4 October 29, 2019 1:33pm November 10, 2020 1:29pm Moderate persistent asthma, uncomplicated Start: 06-06-2019 End: 12-07-2020 take 1 puff(s) by inhalation once daily Tiotropium [place] (Spiriva Respimat) 1.25 mcg/actuation mist Discontinued 2 PUFF INHALATION DAILY 4 October 29, 2019 1:33pm November 10, 2020 1:29pm tiotropium bromi de (SPIRIVA RESPIMAT INHALATION) Inhale as instructed. Active tiotropium bromi de (SPIRIVA RESPIMAT INHALATION) Inhale as instructed. 0 Active Comment on above: Inhale as instructed . 0.9 ml tocilizumab 180 mg/ml auto-injector (19 sources) Interleukin-6 Receptor Antagonist Start: 02-10-2025 Tocilizumab (Actemra Actpen) 162 mg/0.9 mL pen injector Active 162 mg SC Q7D February 10, 2025 12:00am Start: 02-10-2025 Tocilizumab (A ctemra Actpen) 162 mg/0.9 mL pen injector Active mg SC EVERY WEEK February 10, 2025 12:00am Start: 10-23-2024 ACTEMRA ACTPEN 162 mg/0.9 mL 1 injection Subcutaneous weekly for 28 days 10/23/2024 Active Completed/Discontinued Medications Medication Drug Class(es) Dates Sig (Normalized) Sig (Original) acetaminophen 325 mg / HYDROcodone bitartrate 5 mg oral tablet (20 sources) Opioid Agonist Start: 09-30-2022 End: 12-19-2022 Hydrocodone-Acetami nophen 5-325 mg tablet Discontinued 1 {tbl} PO EVERY 6 HOURS NEEDED as needed for Pain 10 3 0 September 30, 2022 December 19, 2022 9:09am Calculus of right ureter Calculus of ureter Start: 09-30-2022 take 1 tablet by levi th every six hours as needed Hydrocodone-Acetaminophen Active 1 TABLE T PO EVERY 6 HOURS NEEDED 10 3 September 30, 2022 Start: 09-16-2021 End: 12-27-2021 Hydrocodone-Acetaminophen 5- 325 mg tablet Discontinued 1 - 2 {tbl} PO EVERY 6 HOURS as needed for pain 14 4 0 September 16, 2021 December 27, 2021 8:05pm Chronic pain of toe of right foot Pain in right toe(s) Other chronic pain Start: 09-16-2021 End: 12-27-2021 take 1 tablet by mouth every six hours Hydrocodone-Acetaminophen Discontinued 1 - 2 TABLET PO EVERY 6 HOURS 14 4 September 16, 2021 December 27, 2021 8:05pm Start: 12-01-2020 End: 12-04-2020 Hydrocodone-Acetaminophen 1 TABLET tablet Discontinued 1 - 2 {tbl} PO EVERY 6 HOURS NEEDED as needed for Pain 20 3 0 December 01, 2020 December 03, 2020 12:00am December 04, 2020 12:17am Start: 12-01-2020 End: 12-04-2020 take 1 tablet by mouth every six hours as needed Hydrocodone-Acetaminophen Discontinued 1 - 2 TABLET PO EVERY 6 HOURS NEEDED 20 3 December 01, 2020 December 04, 2020 12:17am Start: 07-02-2020 End: 07-05-2020 Hydrocodone-Acetaminophen 1 EACH tablet Discontinued 1 - 2 NMA PO EVERY 6 HOURS NEEDED as needed for Pain Score 4-10 15 3 0 July 02, 2020 July 04, 2020 1:00am July 05, 2020 1:03am Dislocation of tarsometatarsal joint of right foot, subsequent encounter Start: 07-02-2020 End: 07-05-2020 Hydrocodone-Acetaminophen Di scontinued 1 - 2 EACH PO EVERY 6 HOURS NEEDED 15 3 July 02, 2020 July 05, 2020 1:03am Start: 01-15-2019 End: 01-17-2019 Hydrocodone-Acetaminophen 1 TABLET tablet Discontinued 1 {tbl} PO EVERY 4 HOURS NEEDED as needed for Pain 20 2 0 January 15, 2019 12:00am January 16, 2019 12:00am January 17, 2019 12:08am Fracture of wrist Start: 01-15-2019 End: 01-17-2019 take 1 tablet by mouth every four hours as needed Hydrocodone-Acetaminophen Discontinued 1 TABLET PO EVERY 4 HOURS NEEDED 20 2 January 15, 2019 12:00am January 17, 2019 12:08am acetaminophen 325 mg / oxyCODONE hydrochloride 5 mg oral tablet (6 sources) Opioid Agonist Start: 10-31-2022 End: 12-19-2022 Oxycodone-Acetaminophen (Endocet) 5-325 mg tablet Discontinued 1 {tbl} PO EVERY 6 HOURS as needed for pain 20 7 0 October 31, 2022 December 19, 2022 9:09am Calculus of kidney Calculus of kidney amoxicillin 875 mg / clavulanate 125 mg oral tablet (8 sources) Penicillin-class Antibacterial Start: 07-16-2024 End: 02-10-2025 Amoxicillin-Pot Clavulanate 875-125 mg tablet Discontinued 1 {tbl} PO TWICE A DAY 20 0 July 16, 2024 1:00am February 10, 2025 1:01pm 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 20 tablet 05/13/2024 05/23/2024 Active aspirin 81 mg oral tablet (14 sources) Platelet Aggregation Inhibitor, Nonsteroidal Anti-inflammatory Drug Start: 08-22-2023 End: 09-04-2023 take 1 tablet by mouth twice daily at mealtime aspirin Dose : 81 mg = 1 tab(s), Oral, BID, Take 81 mg aspirin twice daily with food for 2 weeks postoperatively for DVT prophylaxis., 0 Refill(s) Start Date: 08/22/23 Stop Date: 09/04/23 Status: Ordered Repeat number: 1 Start: 07-10-2018 End: 08-14-2018 take 1 tablet by mouth once daily Aspirin (Adult Aspirin Regimen) 81 mg tablet,delayed release (DR/EC) Discontinued 81 mg PO DAILY 09 11July 10, 2018 1:00am August 14, 2018 1:49pm azelastine hydrochloride 0.137 mg/actuat metered dose nasal spray (19 sources) Histamine-1 Receptor Antagonist Start: 12-26-2021 End: 04-02-2025 Azelastine 137 mcg (0.1 %) aerosol,spray Discontinued 2 NMA INTRANASAL TWICE A DAY December 26, 2021 12:00am April 02, 2025 1:16pm breathing administer into each nostril Start: 12-26-2021 take 1 spray(s) nasa l route twice daily Azelastine Active 2 SPRAY INTRANASAL TWICE A DAY December 26, 2021 12:00am administer into each nostril Start: 04-06-2015 Astelin Dose = 1 spray(s), Nasal, BID Start Date: 04/06/15 Status: Ordered Repeat number: 1 Start: 04-06-2015 Astelin Dose = 1 spray(s), Nasal, BID Start Date: 04/06/15 Status: Ordered End: 10-01-2023 take 1 spray(s) nasal route in the morning azelastine (Astelin) 0.1 % nasal spray Administer 1 spray into affected nostril(s) in the morning and 1 spray in the evening. 0 10/01/2023 Discontinued BD TUBERCULIN SYRINGE 1 mL 2 5 x 5/8 syrg (20 sources) Start: 10-08-2015 End: 02-03-2025 BD TUBERCULIN SYRINGE 1 mL 2 5 x 5/8 syrg 10/08/2015 02/03/2025 Discontinued Start: 10-08-2015 BD TUBERCULIN SYRINGE 1 mL 25 x 5/8 syrg 10/08/2015 Active Start: 10-08-2015 BD TUBERCULIN SYRINGE 1 mL 25 x 5/8 syrg breath-actuated 120 actuat beclomethasone dipropionate 0.08 mg/actuat metered dose inhaler (10 sources) Corticosteroid Start: 07-09-2018 End: 11-18-2018 take 80 ug by inhalation twice daily Beclomethasone Dipropionate (Qvar Redihaler) 80 mcg/actuation HFA aerosol breath activated Discontinued 1 NMA INHALATION TWICE A DAY July 09, 2018 1:00am November 18, 2018 10:14am Start: 07-09-2018 End: 11-18-2018 take 1 puff(s) by inhalation twice daily Beclomethasone Dipropionate (Qvar Redihaler) 80 mcg/actuation HFA aerosol breath activated Discontinued 1 PUFF INHALATION TWICE A DAY July 09, 2018 1:00am November 18, 2018 10:14am 30 ml bupivacaine hydrochloride 5 mg/ml injection (2 sources) Amide Local Anesthetic Start: 12-21-2024 End: 12-21-2024 BUPivacaine (PF) 0.5 % (5 mg/mL) 2 mL injection Start: 12-21-2024 End: 12-21-2024 2 mL, Injection - FOR ORTHO USE ONLY, ONCE, 1 dose, Starting on 12/21/24 at 1054, Until 12/21/24 at 1054 cephalexin 500 mg oral capsule (3 sources) Cephalosporin Antibacterial Start: 09-04-2024 End: 09-14-2024 take 1 capsule by mouth three times daily cephALEXin (KEFLEX) 500 mg capsule Indications: Postoperative state Take 1 capsule by mouth three times a day for 10 days. 30 capsule 09/04/2024 09/14/2024 Start: 08-08-2023 End: 08-25-2023 take 1 capsule by mouth three times daily cephALEXin (KEFLEX) 500 mg capsule Indications: Cellulitis of right foot Take 1 capsule by mouth three times a day for 10 days. 30 capsule 0 08/15/2023 08/25/2023 Active Comment on above: Take 1 capsule by [facility] three times a day for 10 days. cetirizine hydrochloride 10 mg oral capsule (20 sources) Histamine-1 Receptor Antagonist Start: End: take 1 capsule by mouth once daily as needed Cetirizine (Zyrtec) 10 mg capsule Discontinued 10 mg PO DAILY as needed for allergies May 16, 2022 12:00am March 26, 2023 10:15am Start: 12-07-2020 End: 12-26-2021 take 1 capsule by mouth at bedtime Cetirizine (Zyrtec) 10 mg capsule Discontinued 10 mg PO BEDTIME September 09, 2021 4:07pm December 26, 2021 4:55pm ciprofloxacin 500 mg oral tablet (6 sources) Quinolone Antimicrobial Start: 10-31-2022 End: 03-26-2023 take 1 tablet by mouth twice daily Ciprofloxacin Hcl (Cipro) 500 mg tablet Discontinued 500 mg PO TWICE A DAY 10 0 October 31, 2022 12:00am March 26, 2023 10:12am clindamycin 300 mg oral capsule (20 sources) Lincosamide Antibacterial Start: 09-16-2021 End: 12-27-2021 take 1 capsule by mouth every twelve hours Clindamycin Hcl 300 mg capsule Discontinued 300 mg PO Q12H 14 0 September 16, 2021 1:00am December 27, 2021 11:09am Start: 08-04-2021 End: 09-16-2021 take 1 capsule by mouth twice daily Clindamycin Hcl (Cleocin Hcl) 300 mg capsule Discontinued 300 mg PO TWICE A DAY 14 7 0 August 04, 2021 1:00am September 16, 2021 9:15am clopidogrel 75 mg oral tablet (10 sources) [id number] Platelet Inhibitor Start: 07-10-2018 End: 08-14-2018 take 1 tablet by mouth once daily Clopidogrel (Plavix) 75 mg tablet Discontinued 75 mg PO DAILY 30 2 July 10, 2018 1:00am August 14, 2018 1:50pm 1 ml dexamethasone phosphate 4 mg/ml injection (2 sources) Corticosteroid Start: 12-21-2024 End: 12-21-2024 dexAMETHasone sodium phosphate 0.5 mL injection (DECADRON) Start: 12-21-2024 End: 12-21-2024 0.5 mL, Injection - FOR ORTH O USE ONLY, ONCE, 1 dose, Starting on 12/21/24 at 1054, Until 12/21/24 at 1054 SENOKOT-S (20 sources) Start: 11-07-2023 End: 11-09-2023 Senokot S Dose = 2 tab(s), O ral, BID, Take until first bowel movement, then as needed, 0 Refill(s) Start Date: 11/07/23 Stop Date: 11/09/23 Status: Ordered Repeat number: 1 Start: 11-07-2023 End: 11-09-2023 Senokot S Dose = 2 tab(s), O ral, BID, Take until first bowel movement, then as needed, 0 Refill(s) Start Date: 11/07/23 Stop Date: 11/09/23 Status: Ordered Start: 08-22-2023 End: 08-25-2023 take 1 tablet by mouth twice daily Senokot S 50 mg-8.6 mg oral tablet Dose = 2 tab(s), Oral, BID, Take until first bowel movement, then as needed, X 3 day(s), # 12 tab(s), 0 Refill(s), [facility]: [facility][id number], 177.8, cm, 08/21/23 11:18:00 EST, Height, kg, 08/21/23 11:18:00 EST, Dosing Weight Start Date: 08/22/23 Stop Date: 08/25/23 Status: Ordered Start: 05-11-2016 End: 07-09-2018 take 2 tablets by mouth twice daily Sennosides-Docusate Sodium Discontinued 2 TABLET PO TWICE A DAY May 11, 2016 6:42am July 09, 2018 7:38pm Start: 05-11-2016 End: 07-09-2018 Sennosides-Docusate Sodium 1 TABLET tablet Discontinued 2 {tbl} PO TWICE A DAY May 11, 2016 6:42am July 09, 2018 7:38pm doxycycline hyclate 100 mg oral capsule (20 sources) Tetracycline-class Drug Start: 11-25-2020 End: 02-03-2025 take 1 capsule by mouth twice daily Doxycycline Hyclate 100 MG capsule Discontinued 100 mg PO TWICE A DAY November 25, 2020 12:00am December 01, 2020 11:43am CELULITIS Comment on above: Take 100 mg by mouth twice daily. Fluad Quad [id number](65yr up)(PF) 60 mcg (15 mcg x 4)/0.5mL IM syringe (flu vac (1 source) Start: 06-02-2021 End: 06-02-2021 Fluad Quad (65yr up)(PF) 60 mcg (15 mcg x 4)/0.5mL IM syringe (flu vac Discontinued 60 MCG IM ONCE 0.5 June 02, 2021 12:37pm June 02, 2021 1:40pm GLUCOSAMINE/CHOND ROITIN SULF A (GLUCOSAMINE-KEYUR DROITIN ORAL) (20 sources) End: 02-03-2025 GLUCOSAMINE/CHOND ROITIN SULF A (GLUCOSAMINE-KEYUR DROITIN ORAL) Take by mouth. 02/03/2025 Discontinued GLUCOSAMINE/KEYUR DROITIN SULF A (GLUCOSAMINE-CHONDROITIN ORAL) Take by mouth. Active GLUCOSAMINE/KEYUR DROITIN SULF A (GLUCOSAMINE-CHONDROITIN ORAL) Take by mouth. 0 Active Comment on above: Take by mouth. leucovorin 5 mg oral tablet (10 sources) Folate Analog Start: 5 End: 8 take 1 tablet by mouth every week Leucovorin Calcium 5 MG tablet Discontinued 5 mg PO EVERY WEEK July 07, 2015 1:00am July 09, 2018 7:38pm methotrexate 25 mg/ml injectable solution (20 sources) Folate Analog Metabolic Inhibitor Start: 6 End: 5 methotrexate sodium 25 mg/mL soln once each week. 10/07/2015 02/03/2025 Discontinued Start: 07-07-2015 End: 07-09-2018 Methotrexate Sodium (Pf) 25 MG/ML solution Discontinued 25 mg IJ EVERY WEEK July 07, 2015 1:00am July 09, 2018 7:38pm Start: 07-07-2015 End: 07-09-2018 Methotrexate Sodium (Pf) Dis continued 25 MG IJ EVERY WEEK July 07, 2015 1:00am July 09, 2018 7:38pm Comment on above: once each week. Zqagbigu-Jpx-Xw-Lycopen -Lutein (Centrum Silver Men) 1 EACH tablet (5 sources) Start: 11-25-2020 End: 12-26-2021 Fnyadzyv-Hpm-Xb-Lycopen-Lute in (Centrum Silver Men) 1 EACH tablet Discontinued 1 TABLET PO DAILY November 25, 2020 4:42pm December 26, 2021 4:55pm Start: 11-25-2020 End: 12-26-2021 Alxslptg-Uev-Vo-Lycopen-Lute in (Centrum Silver Men) 1 EACH tablet Discontinued 1 TABLET PO DAILY November 24, 2020 11:00pm December 26, 2021 3:55pm Start: 11-25-2020 End: 12-26-2021 Qwdavkka-Uba-Yt-Lycopen-Lute in (Centrum Silver Men) 1 EACH tablet Discontinued 1 TABLET PO DAILY November 25, 2020 12:00am December 26, 2021 4:55pm Dr-Opr-Ugobb-O1-Chtnjek-Slaw in (Centrum Silver Men) 1 EACH tablet (5 sources) Start: 11-25-2020 End: 12-26-2021 take 1 tablet by mouth once daily Yb-Nkb-Hgvfo-C3-Vbrggsv-Cshxjx (Centrum Silver Men) 1 EACH tablet Discontinued 1 {tbl} PO DAILY November 25, 2020 12:00am December 26, 2021 4:55pm SUPPLEMENT Start: 11-25-2020 End: 12-26-2021 take 1 tablet by mouth once daily Ts-Mmp-Aijrk-R0-Vpyvqgv-Cnlryk (Centrum Silver Men) 1 EACH tablet Discontinued 1 {tbl} PO DAILY November 25, 2020 12:00am December 26, 2021 4:55pm oxyCODONE hydrochloride 5 mg oral tablet (20 sources) Opioid Agonist Start: 11-07-2023 oxyCODONE 5 mg oral tablet ( IMMEDIATE release ) See Instructions, PRN as needed for pain, 1-2 tab(s) Oral q4h, 0 Refill(s), 105 Start Date: 11/07/23 Status: Ordered Repeat number: 1 Start: 08-22-2023 End: 08-29-2023 take 1-2 tablets by mouth every four hours as needed for pain oxyCODONE 5 mg oral tablet ( IMMEDIATE release ) See Instructions, PRN as needed for pain, 1-2 tab(s) Oral q4h, # 42 tab(s), 0 Refill(s), 08/29/23 7:54:00 AM EST, [facility]acy: [facility] #[id number], Status post reverse total replacement of right shoulder, 177.8, cm, 08/21/23 11:18:00 EST, Height, 100, kg, 08/21/23 11:18:00 EST, Dosing Weight Start Date: 08/22/23 Stop Date: 08/29/23 Status: Ordered Start: 05-11-2016 End: 07-09-2018 take 5-10 mg by mouth every four hours as needed for pain Oxycodone 5 MG tablet Discontinued 5 - 10 mg PO EVERY 4 HOURS NEEDED as needed for Pain 90 0 May 11, 2016 6:42am July 09, 2018 7:38pm Start: 05-11-2016 End: 07-09-2018 take 1 tablet by mouth twice daily Oxycodone 10 MG tablet Discontinued 10 mg PO TWICE A DAY 4 0 May 11, 2016 6:42am July 09, 2018 7:38pm pantoprazole 40 mg delayed release oral tablet (10 sources) Proton Pump Inhibitor Start: 07-09-2018 End: 01-29-2020 take 1 tablet by mouth once daily Pantoprazole (Protonix) 40 mg tablet,delayed release (DR/EC) Discontinued 40 mg PO DAILY July 09, 2018 1:00am January 29, 2020 1:58pm povidone-iodine 100 mg/ml topical solution (10 sources) Antiseptic Start: 07-02-2020 End: 07-17-2020 Povidone-Iodine 3,780 ML solution Discontinued 237 mL TP DAILY 1 0 July 02, 2020 1:00am July 17, 2020 11:21am Apply topically to foot at incision site for dressing changes as directed predniSONE 10 mg oral tablet (20 sources) Start: 07-16-2024 End: 02-19-2025 Prednisone 10 mg tablet Discontinued 10 mg PO daily 30 0 July 16, 2024 1:00am February 19, 2025 8:45am 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 Take Q8H for 4 days, Take Q12H for 4, Take Q24 for 5 days 25 tablet 04/03/2024 Active Start: 06-06-2019 End: 06-19-2019 take 1 tablet by mouth twice daily Prednisone 10 mg tablet Discontinued 10 mg PO TWICE A DAY June 06, 2019 12:00am June 19, 2019 10:39am Start: 05-19-2019 End: 06-06-2019 take 1 tablet by mouth twice daily Prednisone 20 mg tablet Discontinued 20 mg PO TWICE A DAY May 19, 2019 12:00am June 06, 2019 9:45am Start: 05-17-2015 End: 12-09-2019 take 1 tablet by mouth twice daily Prednisone 5 mg tablet Discontinued 5 mg PO TWICE A DAY June 19, 2019 1:00am December 09, 2019 10:17am Comment on above: twice daily. raNITIdine 150 mg oral tablet (10 sources) Histamine-2 Receptor Antagonist Start: 07-09-20 End: 07-10-20 take 1 tablet by mouth once daily Ranitidine Hcl 150 mg tablet Discontinued 150 mg PO DAILY July 09, 2018 1:00am July 10, 2018 2:47pm risedronate sodium 150 mg oral tablet (20 sources) Start: 11-26-19 End: 04-02-20 take 1 tablet by mouth every month Risedronate 150 MG tablet Discontinued 150 mg PO EVERY MONTH November 25, 2020 12:00am April 02, 2025 1:17pm BONES first day of the month Comment on above: Take 150 mg by mouth once every month. In AM with cup of water on empty stomach. Nothing else by mouth and stay upright for 30 min. rivaroxaban 10 mg oral tablet (20 sources) Factor Xa Inhibitor Start: 05-11-20 End: 07-09-20 take 1 tablet by mouth once daily Rivaroxaban 10 MG tablet Discontinued 10 mg PO DAILY@0600 13 0 May 11, 2016 6:42am July 09, 2018 7:38pm 24 hr tofacitinib 11 mg extended release oral tablet (10 sources) Start: 02-09-20 End: 05-31-20 take 1 tablet by mouth once daily Tofacitinib 11 MG tablet extended release 24 hr Discontinued 11 mg PO DAILY February 09, 2020 12:00am May 31, 2020 11:53am 1 ml triamcinolone acetonide 40 mg/ml injection (3 sources) Corticosteroid Start: 12-22-19 End: 12-22-19 triamcinolone acetonide 0.5 mL injection (KeNALog 40) Start: 12-21-2024 End: 12-21-2024 0.5 mL, Injection - FOR ORTH O USE ONLY, ONCE, 1 dose, Starting on 12/21/24 at 1054, Until 12/21/24 at 1054 Start: 05-19-2019 End: 05-19-2019 Kenalog (triamcinolone aceto nide) 40 mg/mL suspension for injection Discontinued 90 MG INTRAARTIC ONCE 2.May 19, 2019 10:09am May 19, 2019 11:02am vancomycin 1000 mg injection (10 sources) Glycopeptide Antibacterial Start: 12-01-2020 End: 01-05-2021 Vancomycin 1,000 MG/20 ML recon soln Discontinued 1250 mg IV Q12H 80 40 0 December 01, 2020 12:00am January 10, 2021 12:00am January 05, 2021 3:18pm stop date 01/10/21 dx: osteomyelitis weekly bmp, cbc, esr, and vanc trough, fax to [phone] routine picc care with heparin/saline flush per protocol Problems Active Problems Problem Classification Problem Date Documented Date Episodic/Chronic Allergic reactions (3 sources) Contact dermatitis due to poison norma; Translations: [Allergic contact dermatitis due to plants, except food] Onset: 04-27-2025 04-27-2025 Episodic Asthma (20 sources) Uncomplicated moderate persistent asthma; Translations: [Moderate persistent asthma, uncomplicated] Onset: 04-20-2016 Chronic Cancer of prostate (11 sources) Malignant tumor of prostate; Translations: [Malignant neoplasm of prostate] Onset: 01-19-2025 03-23-2020 Chronic Chronic ulcer of skin (20 sources) Ulcer of foot; Translations: [Non-pressure chronic ulcer of other part of unspecified foot with unspecified severity] Onset: 02-12-2025 08-12-2021 Chronic Complication of device; implant or graft (20 sources) Disorders of musculoskeletal implants and repairs; Translations: [Other mechanical complication of other internal orthopedic devices, implants and grafts, initial encounter] 11-25-2020 Episodic Complications of surgical procedures or medical care (10 sources) Pseudarthrosis after fusion or arthrodesis; Translations: [Pseudarthrosis after fusion or arthrodesis] 01-07-2021 Episodic Diabetes mellitus with complications (2 sources) 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; Translations: [Other specified diabetes mellitus with diabetic autonomic (poly)neuropathy] Onset: 09-04-2024 09-04-2024 Chronic Disorders of lipid metabolism (20 sources) Hyperlipidemia; Translations: [Hyperlipidemia, unspecified] Onset: 03-30-2019 05-04-2020 Chronic Disorders of teeth and jaw (1 source) Toothache; Translations: [Other specified disorders of teeth and supporting structures] 05-07-2023 Episodic Esophageal disorders (20 sources) Gastroesophageal reflux disease; Translations: [Gastro-esophageal reflux disease without esophagitis] Onset: 03-02-2017 11-25-2020 Chronic Comment on above: CONTROLLED WITH MEDS Gastroduodenal ulcer (except hemorrhage) (10 sources) Gastric ulcer; Translations: [Gastric ulcer, unspecified as acute or chronic, without hemorrhage or perforation] 05-04-2020 Chronic Hyperplasia of prostate (20 sources) Benign prostatic hyperplasia; Translations: [Benign prostatic hyperplasia without lower urinary tract symptoms] Onset: 04-20-2016 05-04-2020 Chronic Infective arthritis and osteomyelitis (except that caused by tuberculosis or sexually transmitted disease) (20 sources) Reactive arthritis; 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, unspecified wrist] Episodic Malaise and fatigue (11 sources) Fatigue; Translations: [Other fatigue] Episodic Nutritional deficiencies (10 sources) Undernutrition; Translations: [Unspecified protein-calorie malnutrition] 01-19-2021 Chronic Osteoarthritis (20 sources) Osteoarthritis; Translations: [Unspecified osteoarthritis, unspecified site] Onset: 04-20-2016 05-04-2020 Chronic Other acquired deformities (12 sources) Scoliosis of lumbar spine; Translations: [Scoliosis, unspecified] Onset: 04-20-2016 05-28-2022 Chronic Other acquired deformities (9 sources) Lumbar spondylolisthesis; Translations: [Spondylolisthesis, lumbar region] 02-03-2025 Episodic Other acquired deformities (2 sources) Spondylolisthesis, lumbar region; Translations: [Spondylolisthesis, lumbar region] Onset: 02-06-2025 Episodic Other aftercare (2 sources) Follow-up orthopedic assessment; Translations: [Aftercare following joint replacement surgery] Chronic Other aftercare (1 source) Aftercare following joint replacement surgery; Translations: [Aftercare following joint replacement surgery] Onset: 11-25-2024 Chronic Other bone disease and musculoskeletal deformities (1 source) Other specified disorders of bone density and structure, unspecified site; Translations: [Disorder of bone and cartilage, unspecified] Episodic Other connective tissue disease (10 sources) History of total knee arthroplasty; Translations: [Presence of unspecified artificial knee joint] 09-09-2021 Chronic Comment on above: L & R , REVISION R Other connective tissue disease (4 sources) Shoulder joint prosthesis present; Translations: [Presence of right artificial shoulder joint] Onset: 08-22-2023 Chronic Other connective tissue disease (5 sources) History of reverse prosthetic total arthroplasty of right shoulder; Translations: [Presence of right artificial shoulder joint] 11-09-2024 Chronic Other connective tissue disease (1 source) Presence of right artificial shoulder joint; Translations: [Presence of right artificial shoulder joint] Onset: 11-25-2024 Chronic Other connective tissue disease (10 sources) Chronic pain of right foot; Translations: [Pain in right toe(s)] 09-16-2021 Episodic Other connective tissue disease (1 source) Musculoskeletal test abnormal; Translations: [Other symptoms and signs involving the musculoskeletal system] Episodic Other connective tissue disease (1 source) Pain in left lower limb; Translations: [Pain in left leg] 03-25-2025 Episodic Other connective tissue disease (1 source) Pain in left leg; Translations: [Left leg pain] Onset: 04-06-2025 Episodic Other diseases of veins and lymphatics (10 sources) Peripheral venous insufficiency; Translations: [Venous insufficiency (chronic) (peripheral)] 05-04-2020 Episodic Other injuries and conditions due to external causes (20 sources) Delayed healing of wound; Translations: [Other injury of unspecified body region, subsequent encounter] 01-19-2021 Episodic Other liver diseases (2 sources) Fatty (change of) liver, not elsewhere classified; Translations: [Fatty (change of) liver, not elsewhere classified] Onset: 06-05-2018 Chronic Other liver diseases (2 sources) Hepatomegaly, not elsewhere classified; Translations: [Hepatomegaly, not elsewhere classified] Onset: 06-05-2018 Episodic Other lower respiratory disease (2 sources) Other forms of dyspnea; Translations: [Other forms of dyspnea] Onset: 07-02-2018 Episodic Other lower respiratory disease (10 sources) Dyspnea; Translations: [Dyspnea, unspecified] 06-02-2021 Episodic Other nervous system disorders (10 sources) Peripheral nerve disease ; Translations: [Polyneuropathy, unspecified] 05-04-2020 Chronic Other nervous system disorders (20 sources) Polyneuropathy; Translations: [Polyneuropathy, unspecified] 12-27-2021 Chronic Other nervous system disorders (6 sources) Polyneuropathy, unspecified; Translations: [Unspecified hereditary and idiopathic peripheral neuropathy] Onset: 06-05-2024 Chronic Other nervous system disorders (10 sources) Neuropathy; Translations: [Polyneuropathy, unspecified] Chronic Other nervous system disorders (5 sources) Other chronic pain; Translations: [Chronic left-sided low back pain with left-sided sciatica] Onset: 01-15-2025 Chronic Other nervous system disorders (1 source) Skin sensation disturbance; Translations: [Unspecified disturbances of skin sensation] 03-11-2025 Episodic Other nervous system disorders (1 source) Unspecified disturbances of skin sensation; Translations: [Disturbance of skin sensation] Onset: 03-12-2025 Episodic Other non-traumatic joint disorders (18 sources) Charcot's arthropathy; Translations: [Charcot's joint, unspecified site] Chronic Other non-traumatic joint disorders (6 sources) Charcot's joint, unspecified site; Translations: [Unspecified disorders of nervous system] Onset: 06-05-2024 Chronic Other non-traumatic joint disorders (18 sources) Charcot's joint of foot; Translations: [Charcot's joint, right ankle and foot] Chronic Other non-traumatic joint disorders (1 source) Bilateral arthritis of feet 01-12-2025 Chronic Other non-traumatic joint disorders (1 source) Charcot's joint, right ankle and foot; Translations: [Charcot's joint of right foot] Onset: 01-15-2025 Chronic Other non-traumatic joint disorders (1 source) Charcot's joint, left ankle and foot; Translations: [Charcot joint of left foot] Onset: 08-07-2024 Chronic Other non-traumatic joint disorders (1 source) Pain of right shoulder joint; Translations: [Pain in right shoulder] Episodic Other non-traumatic joint disorders (6 sources) Acute ankle pain; Translations: [Pain in left ankle and joints of left foot] 10-31-2024 Episodic Other non-traumatic joint disorders (14 sources) Chronic ankle pain; Translations: [Pain in left ankle and joints of left foot] 11-09-2024 Episodic Other nutritional; endocrine; and metabolic disorders (10 sources) Obese class I; Translations: [Obesity, unspecified] 05-04-2020 Chronic Other nutritional; endocrine; and metabolic disorders (10 sources) Obesity; Translations: [Obesity, unspecified] 05-04-2020 Chronic Other nutritional; endocrine; and metabolic disorders (5 sources) Obesity, unspecified; Translations: [Obesity, unspecified] Chronic Other screening for suspected conditions (not mental disorders or infectious disease) (12 sources) Thallium stress test abnormal; Translations: [Abnormal result of other cardiovascular function study] Onset: 02-25-2025 11-25-2020 Episodic Other upper respiratory disease (13 sources) Allergic rhinitis; Translations: [Allergic rhinitis, unspecified] Onset: 04-20-2016 05-28-2022 Chronic Other upper respiratory disease (6 sources) Seasonal allergic rhinitis 04-07-2015 Chronic Other upper respiratory disease (1 source) Pain in face; Translations: [Other specified disorders of nose and nasal sinuses] 04-27-2025 Episodic Other upper respiratory disease (2 sources) Other specified disorders of nose and nasal sinuses; Translations: [Other specified disorders of nose and nasal sinuses] Onset: 04-27-2025 Episodic Residual codes; unclassified (11 sources) Obstructive sleep apnea syndrome; Translations: [Obstructive sleep apnea (adult) (pediatric)] Onset: 08-22-2023 07-07-2019 Chronic Comment on above: On BiPAP 05/18 On BiPAP 05/18. : PT DOES NOT USE BIPAP. ONLY CPAP Residual codes; unclassified (5 sources) Obstructive sleep apnea (adult) (pediatric); Translations: [Obstructive sleep apnea (adult)(pediatric)] Chronic Residual codes; unclassified (1 source) Sleep apnea; Translations: [Sleep apnea, unspecified] Onset: 11-07-2023 Chronic Residual codes; unclassified (10 sources) History of cosmetic plastic surgery; Translations: [Other specified postprocedural states] 11-25-2020 Episodic Residual codes; unclassified (10 sources) Contact with and (suspected) exposure to asbestos; Translations: [Exposure to asbestos] 07-07-2019 Episodic Residual codes; unclassified (4 sources) Postoperative state; Translations: [Other specified postprocedural states] 08-28-2024 Episodic Residual codes; unclassified (5 sources) History of drug therapy; Translations: [Other specified postprocedural states] 11-09-2024 Episodic Rheumatoid arthritis and related disease (20 sources) Rheumatoid arthritis; Translations: [Rheumatoid arthritis, unspecified] Onset: 04-20-2016 05-04-2020 Chronic Skin and subcutaneous tissue infections (2 sources) Furuncle of buttock; Translations: [Furuncle of buttock] 09-25-2023 Episodic Spondylosis; intervertebral disc disorders; other back problems (20 sources) Degeneration of cervical intervertebral disc; Translations: [Other cervical disc degeneration, unspecified cervical region] Onset: 04-20-2016 03-23-2020 Chronic Spondylosis; intervertebral disc disorders; other back problems (20 sources) Low back pain; Translations: [Chronic low back pain] Onset: 02-06-2025 02-03-2025 Episodic Sprains and strains (1 source) Rupture of tendon of lower limb; Translations: [Strain of muscle(s) and tendon(s) of anterior muscle group at lower leg level, left leg, initial encounter] 10-18-2023 Episodic Unclassified (2 sources) Low back pain, unspecified back pain laterality, unspecified chronicity, unspecified whether sciatica present; Translations: [Low back pain, unspecified back pain laterality, unspecified chronicity, unspecified whether sciatica present] Onset: 02-06-2025 Unclassified (1 source) Autogenerated Problem Onset: 03-25-2025 03-25-2025 Unclassified (1 source) Personal history of colon polyps, unspecified; Translations: [Personal history of colon polyps, unspecified] Onset: 02-10-2025 Unclassified (1 source) New Onset: 02-18-2025 Unclassified (2 sources) Other; Translations: [Other] Onset: 08-11-2024 Past or Other Problems Problem Classification Problem Date Documented Da te Episodic/Chronic Abdominal hernia (20 sources) Incisional hernia; Translations: [Incisional hernia without obstruction or gangrene] Onset: 11-11-2015 Resolved: 08-18-2024 11-11-2015 Episodic Acquired foot deformities (14 sources) Left foot drop; Translations: [Foot drop, left foot] Onset: 05-01-2024 10-18-2023 Episodic Calculus of urinary tract (20 sources) Kidney stone; Translations: [Calculus of kidney] Onset: 04-20-2016 03-23-2020 Episodic Cancer of prostate (20 sources) History of malignant neoplasm of prostate; Translations: [Personal history of malignant neoplasm of prostate] Onset: 04-20-2016 03-23-2020 Episodic Chronic obstructive pulmonary disease and bronchiectasis (5 sources) Bronchitis; Translations: [Bronchitis, not specified as acute or chronic] Onset: 05-13-2024 05-13-2024 Episodic Fracture of lower limb (4 sources) Closed fracture of second metatarsal bone; Translations: [Displaced fracture of second metatarsal bone, left foot, initial encounter for closed fracture] Onset: 08-07-2024 06-28-2024 Episodic Fracture of upper limb (20 sources) Fracture of scaphoid bone of wrist; Translations: [Unspecified fracture of navicular [scaphoid] bone of unspecified wrist, initial encounter for closed fracture] Onset: 01-19-2019 05-28-2022 Episodic Gastroduodenal ulcer (except hemorrhage) (12 sources) H/O: gastric ulcer; Translations: [Personal history of peptic ulcer disease] Onset: 04-20-2016 05-28-2022 Episodic Infective arthritis and osteomyelitis (except that caused by tuberculosis or sexually transmitted disease) (12 sources) Osteomyelitis; Translations: [Osteomyelitis, unspecified] Onset: 01-08-2020 Resolved: 05-07-2023 05-07-2023 Chronic Joint disorders and dislocations; trauma-related (6 sources) Dislocation of shoulder joint; Translations: [Unspecified dislocation of right shoulder joint, initial encounter] Onset: 11-13-2024 11-09-2024 Episodic Other and unspecified benign neoplasm (19 sources) History of polyp of colon; Translations: [Personal history of colonic polyps] Onset: 03-29-2020 05-28-2022 Episodic Other bone disease and musculoskeletal deformities (20 sources) Osteopenia; Translations: [Other specified disorders of bone density and structure, unspecified site] Onset: 04-20-2016 12-27-2021 Episodic Other connective tissue disease (14 sources) Pain in left foot; Translations: [Pain in left foot] Onset: 01-12-2025 04-03-2024 Episodic Other connective tissue disease (2 sources) Pain in left foot; Translations: [Pain in left foot] Onset: 08-07-2024 Episodic Other nervous system disorders (1 source) Other acute postprocedural pain; Translations: [Post-op pain] Onset: 08-18-2024 Episodic Other non-traumatic joint disorders (9 sources) Arthralgia of the ankle and/or foot; Translations: [Pain in left ankle and joints of left foot] Onset: 01-12-2025 02-03-2025 Episodic Other non-traumatic joint disorders (5 sources) Pain in left ankle and joints of left foot; Translations: [Pain in left ankle and joints of left foot] Onset: 11-13-2024 Episodic Other upper respiratory infections (11 sources) Viral upper respiratory tract infection; Translations: [Acute upper respiratory infection, unspecified] Onset: 10-01-2023 10-01-2023 Episodic Residual codes; unclassified (10 sources) History of cardiac catheterization; Translations: [Other specified postprocedural states] Onset: 07-23-2018 11-25-2020 Episodic Comment on above: 05/01/97 Residual codes; unclassified (13 sources) History of systemic steroid therapy; Translations: [Personal history of systemic steroid therapy] Onset: 04-20-2016 05-28-2022 Episodic Residual codes; unclassified (2 sources) Other specified postprocedural states; Translations: [Postoperative state] Onset: 08-28-2024 Episodic Results Test Name Value Interpretation Reference Range Facility 36on 04-27-2025 36 S: Patient spoke wit h CAC nurse regarding sinus drainage, productive cough, headache, sore throat. B: Onset of symptoms/concern began over the weekend. A: Patient has milky colored sinus drainage, cough productive of a milky mucus, headache, and sore throat. Hx of asthma with some increase in shortness of breath. No wheezing or ear pain. has similar symptoms. Has not tested for COVID. No fever. Has been using Tylenol. NTP appt with Lynda Bey CNP on 08/20/2025. R: Appt made for today with Dr. Thomas for 2:40p. Insurance verified with patient as [employer]. Patient will wear a mask to appt; bring photo ID, insurance card, and arrive 15 minutes early. Advised to continue Tylenol, try hot tea for symptom relief. Patient understands care advice. No further needs at this time. Reason for Disposition MILD difficulty breathing (e.g., minimal/no SOB at rest, SOB with walking, pulse <100) and still present when not coughing Protocols used: [id number] Normal [facility] Progress Noteon 04-27-2025 Progress Note [facility] [address] [facility] [address] Dept: [phone] Dept Loc: [phone] Reason for Visit:poison norma and sinus pain Patient was identified and seen today via Telehealth by agreement and consent. I used the following Telehealth technology: Audio and video capabilities. Patient location: Patient Location: Home. This patient encounter is appropriate and reasonable under the circumstances: too sick to leave home . The patient has been advised of the potential risks and limitations of this mode of treatment (including but not limited to the absence of in-person examination) and has agreed to be treated in a remote fashion in spite of them. Any and all of the patient's/patient's family's questions on this issue have been answered and I have made no promises or guarantees to the patient. The patient has also been advised to contact this office for worsening conditions or problems, and seek emergency medical treatment and/or call 911 if the patient deems either necessary. The patient stated that they are currently in the [facility]. If the patient is a minor, permission has been obtained by the parent or guardian for the patient to receive medical care at this visit. Assessment and Plan Assessment & Plan Poison norma Uncomplicated illness started patient on a Medrol Dosepak and desonide cream to apply over the affected area keep the area clean Orders: amoxicillin (Amoxil) 500 MG capsule; Take 1 capsule (500 mg) by mouth 2 times daily for 7 days. benzonatate (Tessalon) 200 MG capsule; Take 1 capsule (200 mg) by mouth 3 times daily as needed for cough. Do not crush or chew. desonide (DesOwen) 0.05 % cream; Apply topically 2 times daily as needed for irritation. methylPREDNISolone (Medrol Dospak) 4 MG tablets; Take as directed on package. Sinus pain Acute complicated issues start patient on amoxicillin as well as Tessalon Perles for cough supportive therapy can try [id number] Tylenol as needed as needed for fever. Any chest pain or shortness of breath recommend emergency room Orders: amoxicillin (Amoxil) 500 MG capsule; Take 1 capsule (500 mg) by mouth 2 times daily for 7 days. benzonatate (Tessalon) 200 MG capsule; Take 1 capsule (200 mg) by mouth 3 times daily as needed for cough. Do not crush or chew. current treatment plan is effective, no change in therapy, orders and follow up as documented in EMR, lab results reviewed with patient, repeat labs ordered prior to next appointment, reviewed compliance with lifestyle measures, reviewed diet, exercise and weight control, reviewed medications and side effects in detail Return visit in 1 weeks. Subjective HPI 75-year-old male patient of Dr. Acosta complains of sinus pain for the last couple of weeks getting progressively worse no fevers or chills. Has been not tried anything [id number]. He has a cough. He does have a history states of asthma. He feels no worsening shortness of breath he does use albuterol he also complains of poison norma is on his arms it itches he tried some afzl-qsv-zsjvspe lotion it did not help Review of Systems Constitutional: Negative. Negative for activity change, appetite change and fever. HENT: Negative. Negative for congestion. Eyes: Negative. Negative for discharge. Respiratory: Negative. Negative for chest tightness. Cardiovascular: Negative. Gastrointestinal: Negative. Endocrine: Negative. Negative for cold intolerance. Genitourinary: Negative for difficulty urinating. Musculoskeletal: Negative. Neurological: Negative. Negative for dizziness, facial asymmetry and headaches. Hematological: Negative. Allergies[1] Current Medications[2] Problem List[3] Medical History[4] Social History Tobacco Use Smoking status: Never Passive exposure: Never Smokeless tobacco: Never Substance Use Topics Alcohol use: No Alcohol/week: 0.0 standard drinks of alcohol Surgical History[5] Family History[6] Health Maintenance Topic Date Due Diabetes: Urine Albumin-Creatinine Ratio for Kidney Health Never done Hepatitis C Screening Never done DTaP/Tdap/Td Vaccines (1 - Tdap) Never done Zoster Vaccines (1 of 2) Never done Diabetes: Estimated Glomerular Filtration Rate for Kidney Health 07/30/2020 RSV Immunization for Adults (1 - 1-dose 75+ series) Never done Medicare Advantage Annual Wellness Visit 08/13/2024 COVID-19 Vaccine ( - 2024- season) 2025 Influenza Vaccine (1) 04/13/2025 Depression Screening 05/13/2025 Colorectal Cancer Screening 02/20/2030 Pneumococcal Vaccine: 50+ Years Completed RSV Immunization under 20 Months Aged Out HIB Vaccines Aged Out Hepatitis B Vaccines Aged Out IPV Vaccines Aged Out Hepatitis A Vaccines Aged Out Meningococcal Vaccine Aged Out Rotavirus Vaccines Aged Out HPV Vaccines Aged Out Men (more content not included)... CNOVon 04-24-2025 CN Office Visit (AGOCMR ) SHIVANI BONILLA ([id number]) 1950 M Date Time Provider Department 04/24/25 10:15 AM JONAH BRINK AGOR During your visit today, we recorded the following information about you: Pulse Blood pressure Weight Height 82/minute 96/63 100.2 kg 1.778 m Jonah Brink DO 04/24/2025 11:03 AM Signed Jonah Brink DO [facility] - Orthopedic Spine Surgeon [address] [facility] [address] [place] [address] Phone: [phone] FAX: [phone] SPINE SURGERY OUTPATIENT CONSULT SERVICE DATE: 04/24/2025 LAST OFFICE VISIT: Visit date not found DATE OF : 1950 REFERRING PROVIDER: No referring provider defined for this encounter. CHIEF COMPLAINT: Left leg pain HISTORY OF PRESENT ILLNESS Shivani Bonilla is a 75 year old male presenting with spouse. The patient has a past medical history of asthma, left foot pain, prostate cancer and RA. He presented to the office on 02/18/2025. Pain began several months ago. Had been getting progressively worse. 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 Stated that he did have some gluteal pain, but left ankle was the most painful. Stated that he had tried physical therapy for this with no relief in symptoms. Stated that was affecting his activities of daily living. He had significant lumbar radiculopathy. He had been dealing with this for quite some time. He had his ankle evaluated by several foot and ankle specialist. Recommend an EMG of the patient's lumbar spine to confirm that this was coming from his lumbar spine. He will follow-up me once the EMG is completed. At his last visit on 03/25/2025 he stated he continued to have severe left leg pain. Stated that was also numb. Pain was in the L5 distribution but only distal to the left knee. EMG described a possible polyneuropathy. He had significant left leg pain. Recommend a selective nerve root block of L5 with interventional radiology. Consults placed. He will follow-up me 2 weeks after the injection, prompting his visit today. Today patient went for pain injection, he states it gave him full resolution for a full 48 hours then the pain gradually came back. Today he notes continued left ankle pain, baseline neuropathy of bilateral feet. He present today in wheelchair. Denies new or worsened weakness, falls, loss of bowel or bladder. Pain is located in the L5 dermatome on the left. He presents for imaging review, evaluation and plan of care. Pain began Chronic SYMPTOMS: Left ankle pain PREVIOUS CONSERVATIVE TREATMENTS: Gabapentin selective nerve root block of L5 - 04/06/2025 PREVIOUS SURGERY: None Smoker: denies Diabetic: denies Anticoagulants / Antiplatelets: denies Occupation: [employer] PAST MEDICAL HISTORY Diagnosis Date Asthma (HCC) Left foot pain Prostate cancer (HCC) Rheumatoid arthritis Right foot pain PAST SURGICAL HISTORY Procedure Laterality Date ARTHRP KNE CONDYLEANDPLATU MEDIALANDLAT COMPARTMENTS Left 08/13/2004 ARTHRP KNE CONDYLEANDPLATU MEDIALANDLAT COMPARTMENTS Right 08/13/2014 CARPAL TUNNEL 82,83 x2 each wrist COLONOSCOPY 08/13/2009 FOOT SURGERY HX Right 07/2020 FOOT SURGERY HX Right 11/29/2020 FOOT SURGERY HX Left 08/18/2024 INGUINAL HERNIA REPAIR HX Right 09/13/2014 LX REPAIR RECURRENT VENTRAL HERNIA 11/08/2015 Laparoscopic repair of recurrent ventral hernia PAST SURGICAL HISTORY OF 01/11/1993 kidney stone removal PAST SURGICAL HISTORY OF 08/13/1997 cardiac catherization PAST SURGICAL HISTORY OF Left 08/13/2005 knee revision PAST SURGICAL HISTORY OF 11/24/2022 Kidney stone removal REMOVAL OF PROSTATE 02/10/2013 SHOULDER SURGERY HX Right 08/21/2023 TONSILLECTOMY HX 08/13/1977 FAMILY HISTORY Problem Relation Age of Onset other (negative [Other]) Unknown SOCIAL HISTORY[1] ALLERGIES Allergen Reactions Gluten Shortness of Breath Peanuts Shortness of Breath Tetracycline Hives Yeast, Dried Shortness of Breath MEDICATIONS: gabapentin (NEURONTIN) 300 mg capsule Take 1 capsule by mouth two times a day for 30 days. ACTEMRA ACTPEN 162 mg/0.9 mL 1 injection Subcutaneous weekly for 28 days gabapentin (NEURONTIN) 300 mg capsule Take 2 capsules by mouth daily at bedtime for 90 days. DULoxetine (CYMBALTA) 30 mg capsule Take 30 mg by mouth once daily. hydrOXYchloroQUINE (PLAQUENIL) 200 mg tablet linezolid (ZYVOX) 600 mg tablet budesonide/formoterol fumarate (SYMBICORT INHALATION) Inhale as instructed. tiotropium bromide (SPIRIVA RESPIMAT INHALATION) Inhale as instructed. leflunomide (ARAVA) 20 mg tablet Take 20 mg by mouth once daily. montelukast (SINGULAIR) 10 mg tablet once daily. folic acid 1 mg tablet once daily. Multivitamin capsule Take 1 capsule by mouth once daily. mometasone (NASONEX) 50 mcg/act (more content not included)... [facility] Visit (AGHWW1 ) SHIVANI BONILLA ([id number]) 1950 M Date Time Provider Department 04/09/25 9:45 AM [facility] During your visit today, we recorded the following information about you: Respiration Weight Height 18/minute 100.2 kg 1.778 m Mckinley Guzman DPM 04/09/2025 10:27 AM Signed HPI: This 75 year old male presents for follow up of right 2nd toe wound. States that the wound is taking a while to heal but he feels it is still improving. Has been apply mesalt dressing daily. Admits to some clear drainage. Denies any redness, malodor. Has been ambulating in an AFO. Denies any new wounds. Admits he had an injection in his back and his pain was completely relieved for 48 hours. Denies any current nausea, vomiting, fever, chills, shortness of breath, chest pain or calf pain. Denies any other pedal complaints PAST MEDICAL HISTORY Diagnosis Date Asthma (HCC) Left foot pain Prostate cancer (HCC) Rheumatoid arthritis Right foot pain Current Outpatient Medications Medication Sig gabapentin (NEURONTIN) 300 mg capsule Take 1 capsule by mouth two times a day for 30 days. ACTEMRA ACTPEN 162 mg/0.9 mL 1 injection Subcutaneous weekly for 28 days gabapentin (NEURONTIN) 300 mg capsule Take 2 capsules by mouth daily at bedtime for 90 days. DULoxetine (CYMBALTA) 30 mg capsule Take 30 mg by mouth once daily. hydrOXYchloroQUINE (PLAQUENIL) 200 mg tablet linezolid (ZYVOX) 600 mg tablet budesonide/formoterol fumarate (SYMBICORT INHALATION) Inhale as instructed. tiotropium bromide (SPIRIVA RESPIMAT INHALATION) Inhale as instructed. leflunomide (ARAVA) 20 mg tablet Take 20 mg by mouth once daily. montelukast (SINGULAIR) 10 mg tablet once daily. folic acid 1 mg tablet once daily. Multivitamin capsule Take 1 capsule by mouth once daily. mometasone (NASONEX) 50 mcg/actuation nasal spray Use 2 Sprays in the nose once daily. No current facility-administered medications for this visit. ALLERGIES Allergen Reactions Gluten Shortness of Breath Peanuts Shortness of Breath Tetracycline Hives Yeast, Dried Shortness of Breath Objective: Problem focused examination to the right lower extremity: Pedal pulses are palpable. Capillary refill time is less than three seconds to all digits. Sensations are intact to light touch. Wound location: R foot second dorsal PIPJ size: 0.7 cm x 0.5 cm x 0.1 cm = 0.35 total sq cm Type: Pressure/friction Depth: Ulceration extends Full thickness down to subcutaneous Base: Granular and Fibrotic SOI: No clinical SOI Probe: Ulcer does not probe to bone. Drainage: Small amount of serous drainage. General foot morphology: decreased medial longitudinal arch with plantar prominence at midfoot. 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 +4/5 muscle strength Dorsiflexion, Plantarflexion, Inversion, Eversion, no DF strength to LLE, limited PF strength. No palpable dell noted to achilles tendon. Non palpable AT tendon concerning for chronic rupture. Foot drop noted of LLE. ROM of the 1st MTPJ is decreased without pain or crepitus. ROM of the MTJ/STJ is decreased without pain or crepitus. Ankle joint ROM is decreased with pain on palpation noted to the left > right. No erythema or edema about the plantar midfoot right. No pain on palpation of left 2nd metatarsal bone. Results MRI ANKLE WO IVCON LEFT (Acc#[id number]) (Order [id number]) Impression IMPRESSION: 1. Hindfoot/midfoot degenerative changes. 2. Low-grade Achilles tendinosis. 3. Plantar fasciitis with low-grade interstitial tear and calcaneal spur. 4. Short segment thickening/tendinosis anterior tibialis tendon. 5. Diffuse soft tissue edema about the ankle and dorsal foot. URIC ACID Order: [id number] Status: Final result Dx: Acute left ankle pain Test Result Released: Yes (not seen) 0 Result Notes Component Ref Range AND Units 1 mo ago Uric Acid 4.0 - 8.1 mg/dL 4.3 Resulting Agency [facility] ntains abnormal data COMPLETE BLOOD COUNT Order: [id number] Status: Final result Dx: Acute left ankle pain Test Result Released: Yes (seen) 0 Result Notes Component Ref Range AND Units 1 mo ago WBC 3.70 - 11.00 k/uL 5.60 RBC 4.20 - 6.00 m/uL 4.66 Hemoglobin 13.0 - 17.0 g/dL 15.1 Hematocrit 39.0 - 51.0 % 44.8 MCV 80.0 - 100.0 fL 96.1 MCH 26.0 - 34.0 pg 32.4 MCHC 30.5 - 36.0 g/dL 33.7 RDW-CV 11.5 - 15.0 % 13.3 Platelet Count 150 - 400 k/uL 222 MPV 9.0 - 12.7 fL 8.9 Low Absolute nRBC <0.01 k/uL <0.01 Resulting Agency [facility] . CT LEFT ANKLE 01/21/25: IMPRESSION: 1. No acute bony abnormality. 2. 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 3. Mild talonavicular joint arthrosis. 4. Mild Achilles tendinosis. Assessment: Chronic L ankle pain, healing right second digit ulcer. Plan: The (more content not included)... Normal [facility] BRIEF OP NOTon 04-06-2025 BRIEF OP NOT HNO ID: [id number] Author: LEAH EARLY MD Service: Interventional Radiology Author Type: Physician Type: Brief Op Note Filed: 04/06/2025 10:54 Note Text: BRIEF OPERATIVE / PROCEDURE NOTE LOG ID: [id number] SURGERY/PROCEDURE DATE: 04/06/2025 INCISION/PROCEDURE START TIME: 10:41 AM INCISION CLOSE/PROCEDURE END TIME: 10:49 AM SURGEON(S)/PROCEDURALI ST(S) AND KEYING MACHINE OPERATOR(S): Surgeons and Role: * Leah Early MD, MD - Primary No Additional Staff Preoperative Concerns /Risks: None SURGERY/PROCEDURE(S): Left L5 epidural injection ANESTHESIA: Local FINDINGS: Left L5 root could not be accessed from trans foraminal approach so a trans laminal route was used. Successful injection of steroid medication. ESTIMATED BLOOD LOSS: Minimal SPECIMENS: None CLOSURE TECHNIQUE: Primary PRE-OP/PRE-PROCEDURE DIAGNOSIS: Pain POST-OP/POST-PROCEDURE DIAGNOSIS: Same as Preop SIGNATURE: Leah Early MD PATIENT NAME: Shivani Bonilla DATE: April 06, 2025 TIME: 10:[address] [facility] IR INJ NERVE ROOT LUMBAR SIN GLEon 04-06-2025 IR INJ NERVE ROOT LUMBAR SINGLE * * *Final Report* * * DATE OF EXAM: Apr 06 2025 10:58AM [facility] 0954 - IR INJ NERVE ROOT LUMBAR SINGLE / PROCEDURE REASON: pain * * * * Physician Interpretation * * * * EXAM TITLE: FLUOROSCOPICALLY GUIDED LUMBAR EPIDURAL INJECTION DATE: 04/06/2025 COMPARISON: 02/06/2025 CLINICAL INDICATION/HISTORY: The patient is a 75 -year-old male with pain. TECHNIQUE: Informed consent was obtained from the patient. The patient was placed in a prone position. The lumbar region was prepped and draped. With fluoroscopic guidance an appropriate skin entry site was identified and anesthetized. A 22-gauge spinal needle was guided into the epidural space, first attempting a transforaminal approach which was unsuccessful due to extensive degenerative disease, then utilizing a left L5-S1 paraspinal approach. Contrast was injected to confirm the epidural location of the needle tip. 80 mg of Depo-medrol was infused at the epidural space. 3 cc of saline was then infused into the epidural space. There were no apparent complications. Fluoroscopic Radiation Summary: Plane A, Air Kerma: 216.0 mGy Fluoro time: 2:36 min:sec Contrast Media 1: cavity administration of 2 ml of OMNIPAQUE 300 FINDINGS: Preprocedure pain was 8 out of 10. Post procedure pain was 6 out of 10. IMPRESSION: Technically successful fluoroscopy guided epidural injection for pain management (primarily targeting left L5 root). Fabric Sourcer: PSCRayna Transcribe Date/Time: Apr 07 2025 2:39P Dictated by : LEAH EARLY MD This examination was interpreted and the report reviewed and electronically signed by: LEAH EARLY MD on Apr 07 2025 3:01PM EST [id number] Normal [facility] Pulmonary Visit Reporton Pulmonary Visit Report [facility] Pulmonary Medicine of [address] [place] [address] OFFICE VISIT Date of Service: 04/02/25 MR#: [id number] Acct: [id number] Name: SHIVANI BONILLA Rep #: [id number] : 1950 Provider: FERCHO Johnson Age/Sex: 75/M Location: [facility] Status: Signed Assessment and Plan Assessment and Plan (1) Moderate persistent allergic asthma without complication: Status: Chronic Plan: He typically becomes problematic and symptomatic in the fall. He realizes that ragweed seems to be a trigger for him. He is not currently on an antihistamine. I have asked him to hand picker an antihistamine and begin taking it until this area has received a hard darling. He is agreeable with this plan. Patient is on extensive traditional medical management of asthma with the use of Symbicort, Spiriva, Flonase, azelastine, and Singulair. No additional testing at this time. Contact the office with any signs of new or worsening symptoms. I specifically told the patient that if he is increasing the frequency of his albuterol for rescue over the period of 2 or 3 days he should contact our office to report his symptoms. He conveys understanding and is agreeable with this plan. Follow-up in 6 months. (2) KEZIA treated with BiPAP: Status: Chronic Comment: On BiPAP 05/18. 02/10-: PT DOES NOT USE BIPAP. ONLY CPAP Plan: He is using and benefiting from Pap therapy. No indication for titration study at this time. Continue to encourage weight loss. Contact the office for any new or worsening symptoms in the meantime. Follow-up in 6 months. (3) Obesity: Status: Chronic Qualifiers: Obesity type: due to excess calories Obesity classification: adult class 1 (BMI 30 - 34.9) Serious obesity comorbidity presence: with serious comorbidity Body mass index: BMI 31.0-31.9 Qualified Code(s): E66.09 - Other obesity due to excess calories; Z68.31 - Body mass index [BMI] 31.0-31.9, adult Plan: Continue to encourage weight loss. Medications: New loratadine 10 mg PO DAILY 90 tabs 3RF Refilled budesonide-formoterol 160-4.5 mcg/actuation (Symbicort) 2 inhalations inhalation BID 3 ea 3RF breathing albuterol sulfate 90 mcg/actuation 2 inhalations inhalation Q6H PRN 3 ea 3RF ASTHMA J45.909 - Unspecified asthma, uncomplicated fluticasone propionate 50 mcg/actuation administer into each nostril 2 sprays intranasal DAILY 3 ea 3RF montelukast 10 mg PO QPM 90 tabs 3RF sinuses tiotropium bromide 1.25 mcg/actuation (Spiriva Respimat) 2 inhalations inhalation DAILY 3 device 3RF BREATHING Plan Details Additional Comments: This note was generated with [employer] dictation software. It may contain incorrect words, spelling, and punctuation that were not noted in checking the note before signing. I have spent 34 minutes today reviewing labs, records and history. Time includes coordinating care, interpretation of tests. This also includes time I spent with the patient for exam, treatment plan and education as well as documenting clinical information. Follow Up: 6 Months HPI 1 Y FU Chief Complaint: Routine follow-up HPI Comments Details: This patient presents to the office today for a routine follow-up of his obstructive sleep apnea and asthma. He is ambulatory with the use of a knee walker, on room air and accompanied today by his . He has not recently been seen in the ED or urgent care for any respiratory illness. He has not required any antibiotics or prednisone for any breathing problems. He is compliant with Symbicort 2 puffs twice daily. He does report rinsing his mouth out after each use. He denies any medication side effect such as sore throat or thrush. He is compliant with Spiriva, Singulair,and Flonase. He is using albuterol nebulized 4 times per week. He does have increased shortness of breath. He has an occasional cough that is sometimes productive of clear sputum. He denies any hemoptysis. He denies any wheezing, chest tightness, chest pain or palpitations. He is not experience any fevers. He denies body aches or chills. He wakes feeling refreshed and rested with the use of his PAP device. He is not having difficulty with mask leaks. He does admit to dry mouth. He denies excessive nocturia. He is not requiring naps and is not nodding off to sleep unintentionally. Compliance report for the past 30 days shows 100% compliance with an average use of nearly 7 hours per night. Current setting is BiPAP 10/6 cmH2O with a residual AHI of 4.4 events per hour. Leaks do not appear to be problematic. Intake Vital Signs 04/02/24 09:00 04/02/25 09:02 Height 5 ft 10 in 5 ft 10 in Weight: 224 lb 8 oz BMI 32.2 BP 131/81 H Blood Pressure Location Lt brachial Position Sitting Respiration 18 Pulse 76 Pulse Source Monitor Temp 9 (more content not included)... Normal [facility] CNCOon 03-25-2025 CNCO Letter Text Normal [facility] CNOVon 03-25-2025 CNOV Office Visit (AGHWG1 ) SHIVANI BONILLA ([id number]) 1950 M Date Time Provider Department 03/25/25 1:45 PM JONAH BRINK [email or web address] During your visit today, we recorded the following information about you: Respiration Weight Height 14/minute 100.2 kg 1.778 m Jonah Brink DO 03/25/2025 1:55 PM Signed Jonah Brink DO [facility] - Orthopedic Spine Surgeon [address], [facility] [address] [address] [place] [address] Phone: [phone] FAX: [phone] SPINE SURGERY OUTPATIENT CONSULT SERVICE DATE: 03/25/2025 LAST OFFICE VISIT: 02/18/2025 DATE OF : 1950 REFERRING PROVIDER: No referring provider defined for this encounter. CHIEF COMPLAINT: Left leg pain HISTORY OF PRESENT ILLNESS Shivani Bonilla is a 75 year old male presenting with spouse. He presented to the office on 02/18/2025. Pain began several months ago. Had been getting progressively worse. 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 Stated that he did have some gluteal pain, but left ankle was the most painful. Stated that he had tried physical therapy for this with no relief in symptoms. Stated that was affecting his activities of daily living. He had significant lumbar radiculopathy. He had been dealing with this for quite some time. He had his ankle evaluated by several foot and ankle specialist. Recommend an EMG of the patient's lumbar spine to confirm that this was coming from his lumbar spine. He will follow-up me once the EMG is completed, prompting his visit today. Today states he continues to have severe left leg pain. States that is also numb. Pain is in the L5 distribution but only distal to the left knee. 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 He presents for imaging review, evaluation and plan of care. PREVIOUS CONSERVATIVE TREATMENTS: Gabapentin PREVIOUS SURGERY: None Smoker: denies Diabetic: denies Anticoagulants / Antiplatelets: denies Occupation: [employer] PAST MEDICAL HISTORY Diagnosis Date Asthma (HCC) Left foot pain Prostate cancer (HCC) Rheumatoid arthritis Right foot pain PAST SURGICAL HISTORY Procedure Laterality Date ARTHRP KNE CONDYLEANDPLATU MEDIALANDLAT COMPARTMENTS Left 08/13/2004 ARTHRP KNE CONDYLEANDPLATU MEDIALANDLAT COMPARTMENTS Right 08/13/2014 CARPAL TUNNEL 82,83 x2 each wrist COLONOSCOPY 08/13/2009 FOOT SURGERY HX Right 07/2020 FOOT SURGERY HX Right 11/29/2020 FOOT SURGERY HX Left 08/18/2024 INGUINAL HERNIA REPAIR HX Right 09/13/2014 LX REPAIR RECURRENT VENTRAL HERNIA 11/08/2015 Laparoscopic repair of recurrent ventral hernia PAST SURGICAL HISTORY OF 01/11/1993 kidney stone removal PAST SURGICAL HISTORY OF 08/13/1997 cardiac catherization PAST SURGICAL HISTORY OF Left 08/13/2005 knee revision PAST SURGICAL HISTORY OF 11/24/2022 Kidney stone removal REMOVAL OF PROSTATE 02/10/2013 SHOULDER SURGERY HX Right 08/21/2023 TONSILLECTOMY HX 08/13/1977 FAMILY HISTORY Problem Relation Age of Onset other (negative [Other]) Unknown Social History Tobacco Use Smoking status: Never Passive exposure: Never Smokeless tobacco: Never Vaping Use Vaping status: Never Used Substance Use Topics Alcohol use: No Drug use: No ALLERGIES Allergen Reactions Gluten Shortness of Breath Peanuts Shortness of Breath Yeast, Dried Shortness of Breath MEDICATIONS: gabapentin (NEURONTIN) 300 mg capsule Take 1 capsule by mouth two times a day for 30 days. ACTEMRA ACTPEN 162 mg/0.9 mL 1 injection Subcutaneous weekly for 28 days gabapentin (NEURONTIN) 300 mg capsule Take 2 capsules by mouth daily at bedtime for 90 days. DULoxetine (CYMBALTA) 30 mg capsule Take 30 mg by mouth once daily. hydrOXYchloroQUINE (PLAQUENIL) 200 mg tablet linezolid (ZYVOX) 600 mg tablet budesonide/formoterol fumarate (SYMBICORT INHALATION) Inhale as instructed. tiotropium bromide (SPIRIVA RESPIMAT INHALATION) Inhale as instructed. leflunomide (ARAVA) 20 mg tablet Take 20 mg by mouth once daily. montelukast (SINGULAIR) 10 mg tablet once daily. folic acid 1 mg tablet once daily. Multivitamin capsule Take 1 capsule by mouth once daily. mometasone (NASONEX) 50 mcg/actuation nasal spray Use 2 Sprays in the nose once daily. OBJECTIVE: There were no vitals taken for this visit. PHYSICAL EXAM GENERAL APPEARANCE: Well nourished, well developed, and no apparent distress. NEURO PSYCH: Patient oriented to person, place, and time. Mood pleasant. Benign affect. CARDIOVASCULAR: Palpable pulses. No edema noted. No varicosities. SKIN: Head, neck, trunk, and extremities dry, intact and without lesions. LYMPHATICS: No palpable nodes in axillae areas. Groin exam deferred MUSCULOSKELETAL PALPATION: SPINOUS PROCESS: No pain. PARASPINALS: No pain. MUSCLE TONE and BULK: Symmetrical (more content not included)... Normal [facility] CNOVon 03-12-2025 CN Office Visit (AGHWW1 ) SHIVANI BONILLA ([id number]) 1950 M Date Time Provider Department 03/12/25 3:00 PM MCKINLEY GUZMAN HWW1 During your visit today, we recorded the following information about you: Respiration Weight Height 18/minute 100.2 kg 1.778 m Natasha Beal LPN 03/20/2025 10:28 AM Signed REVIEW OF SYSTEMS: GENERAL: Well developed, well nourished. No acute distress PAIN: Pain Bilateral feet CARDIOVASCULAR: Negative for chest pain, leg swelling and palpations. MSK: Positive for joint swelling SKIN: Negative for lesions, rash, itching, metal sensitivity NEURO: Numbness/tingling of extremties ENDOCRINE: Negative for diabetic associated symptoms HEMATOLOGY: Negative for excessive bleeding, clots, bleeding disorders. Mckinley Guzman DPM 03/20/2025 10:28 AM Signed HPI: This 75 year old male presents for follow up of right 2nd toe wound. States that the wound is taking a while to heal but is looking good overall. Have been applying Mesalt and dressing overtop. Patient has been ambulating in an AFO brace to the [facility]. Also complains of new bruising to the top of the left foot. Denies any trauma that he recalls. Admits to having continuous aching, sharp, shooting pain. Pain is somewhat controlled with Gabapentin. Has been weightbearing as tolerated to the left lower extremity in a shoe with use of AFO brace. Recently started Actemra with rheum about a couple of months ago. He did see Dr. Mayorga for his back and got an MRI and EMG completed and will be following up with him to discuss results next week. Denies any current nausea, vomiting, fever, chills, shortness of breath, chest pain or calf pain. Denies any other pedal complaints PAST MEDICAL HISTORY Diagnosis Date Asthma (HCC) Left foot pain Prostate cancer (HCC) Rheumatoid arthritis Right foot pain Current Outpatient Medications Medication Sig ACTEMRA ACTPEN 162 mg/0.9 mL 1 injection Subcutaneous weekly for 28 days DULoxetine (CYMBALTA) 30 mg capsule Take 30 mg by mouth once daily. hydrOXYchloroQUINE (PLAQUENIL) 200 mg tablet linezolid (ZYVOX) 600 mg tablet budesonide/formoterol fumarate (SYMBICORT INHALATION) Inhale as instructed. tiotropium bromide (SPIRIVA RESPIMAT INHALATION) Inhale as instructed. leflunomide (ARAVA) 20 mg tablet Take 20 mg by mouth once daily. montelukast (SINGULAIR) 10 mg tablet once daily. folic acid 1 mg tablet once daily. Multivitamin capsule Take 1 capsule by mouth once daily. mometasone (NASONEX) 50 mcg/actuation nasal spray Use 2 Sprays in the nose once daily. gabapentin (NEURONTIN) 300 mg capsule Take 1 capsule by mouth two times a day for 30 days. gabapentin (NEURONTIN) 300 mg capsule Take 2 capsules by mouth daily at bedtime for 90 days. No current facility-administered medications for this visit. ALLERGIES Allergen Reactions Gluten Shortness of Breath Peanuts Shortness of Breath Yeast, Dried Shortness of Breath Objective: Patient presents weightbearing as tolerated to left leg. Problem focus examination to the left lower extremity: Incision site is well coapted without evidence of dehiscence. No erythema or edema surrounding surgical site. No drainage. No lymphadenopathy. No lymphangitis. No surrounding cellulitis. No signs of infection. Patient has no pain to palpation of calf. The calf is soft, supple and nontender without evidence of DVT. Negative Sita's test. Satisfactory alignment is noted. Pedal pulses are palpable. Capillary refill time is less than three seconds to all digits. Sensations are intact to light touch. There is local edema and ecchymosis noted at the to 5th digit left foot. No pain to palpation to left 1st-5th digits or metatarsal shaft due to underlying neuropathy. Flexor and extensor strength maintained to digital level. No pain noted to palpation of the cuboid or the adjacent metatarsals or lisfranc joint complex. Problem focused examination to the right lower extremity: Pedal pulses are palpable. Capillary refill time is less than three seconds to all digits. Sensations are intact to light touch. Second toe sore on right foot with small clear discharge, see below: Wound location: R foot second dorsal PIPJ size: 1.0 cm x 0.5 cm x 0.1 cm = 1 total sq cm Type: Pressure/friction Depth: Ulceration extends Full thickness down to subcutaneous Base: Granular and Fibrotic SOI: No clinical SOI Probe: Ulcer does not probe to bone. Drainage: Small amount of serous drainage. General foot morphology: decreased medial longitudinal arch with plantar prominence at midfoot. 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 +4/5 muscle strength Dorsiflexion, Plantarflexion, Inversion, Eversion, no DF strength to LLE, limited PF strength. No palpable dell noted to achilles tendon. Non palpable AT tendon concerning for chronic rupture. Foot d (more content not included)... Normal [facility] Colonoscopy Reporton 025 Colonoscopy Report [facility] Medical Records Department [address] [place] [address] Colonoscopy Report MR#: [id number] Acct: [id number] Name: SHIVANI BONILLA Rep #: [id number] : 1950 75 From: Esteban Eugene MD PCP: Dr. Ganga Acosta, DO Status:[place] [facility] Patient Name: Shivani Bonilla Procedure Date: 02/20/2025 10:21 AM Date of : 1950 Age: 75 Procedure: Colonoscopy Indications: High risk colon cancer surveillance: Personal history of colonic polyps Providers: Esteban Eugene MD Referring MD: Ganga Acosta Medicines: Propofol per Anesthesia Patient Profile: This is a 75 year old male. Refer to note in patient chart for documentation of history and physical. Last Colonoscopy: 5 years ago. Complications: No immediate complications. Estimated blood loss: Minimal. Procedure: Pre-Anesthesia Assessment: - Prior to the procedure, a History and Physical was performed, and patient medications and allergies were reviewed. The patient's tolerance of previous anesthesia was also reviewed. The risks and benefits of the procedure and the sedation options and risks were discussed with the patient. All questions were answered, and informed consent was obtained. Prior Anticoagulants: The patient has taken no anticoagulant or antiplatelet agents. After reviewing the risks and benefits, the patient was deemed in satisfactory condition to undergo the procedure. After I obtained informed consent, the scope was passed under direct vision. Throughout the procedure, the patient's blood pressure, pulse, and oxygen saturations were monitored continuously. The colonoscope was introduced through the anus and advanced to the cecum, identified by appendiceal orifice and ileocecal valve. The colonoscopy was performed without difficulty. The patient tolerated the procedure well. The quality of the bowel preparation was good. The ileocecal valve, appendiceal orifice, and rectum were photographed. Scope In: 10:27:59 AM Scope Withdrawal Time 0 hours 7 minutes 45 seconds Scope Out: 11:03:31 AM Total Procedure Duration Time 0 hours 35 minutes 32 seconds Findings: A medium polyp was found in the cecum. The polyp was sessile. The polyp was removed with a hot snare. Resection and retrieval were complete. The exam was otherwise without abnormality on direct and retroflexion views. Impression: - One medium polyp in the cecum, removed with a hot snare. Resected and retrieved. - The examination was otherwise normal on direct and retroflexion views. Recommendation: - Discharge patient to home. - Resume previous diet. - Continue present medications. - Await pathology results. - Repeat colonoscopy in 5 years for surveillance. Procedure Code(s): --- Professional --- 13007, Colonoscopy, flexible; with removal of tumor(s), polyp(s), or other lesion(s) by snare technique Diagnosis Code(s): --- Professional --- Z86.010, Personal history of colonic polyps D12.0, Benign neoplasm of cecum CPT copyright 2021 [employer]. All rights reserved. The codes documented in this report are preliminary and upon leaf stamper review may be revised to meet current compliance requirements. Esteban Eugene MD 02/20/2025 11:06:43 AM This report has been signed electronically. Number of Addenda: 0 Note Initiated On: 02/20/2025 10:21 AM 02/20/25 1106 Date Esteban Godfrey Signature: Date (if indicated) CC: Dr. Esteban Eugene MD; Dr. Ganga Acosta, Date Dictated: 02/20/25 1021 Date Transcribed: Fabric Sourcer: LAURA Diehl [facility] MR/POSTOP.Nasrin 02-20-2025 MR/POSTOP.[facility] Medical Records Department [address] [place] [address] Anesthesia Postop Eval I 02/20/251114 MR#: [id number] Acct: [id number] Name: SHIVANI BONILLA ARIEL Rep #: [id number] : 1950 75 From: Eric Rios PCP: Dr. Ganga Acosta, DO Status:REG SDC Y Race: C Location: [place] [address] Anesthesia: Postop Eval I Current Vital Signs Temperature: 97.5 F Pulse Rate: 75 Blood Pressure: 136/90 Respiratory Rate: 22 Pulse Ox: 93 Oxygen Delivery Method: Room Air Assessment Airway patent: Yes Spontaneous unlabored respirations: Yes Mental status: Asleep nausea: No Vomiting: No Anesthesia Complication: No Fluid Hydration Crystalloid volume administer (ml): 700 Total IV fluid infused: 700 Progress Note Anesthesia document: Postop Eval 1 completed: Yes 02/20/251115 Date Eric Godfrey Signature: Date CC: Signed Normal [facility] MR/[id number] 02-20-2025 MR/POSTOPAN2 [facility] Medical Records Department [address] [place] [address] Anesthesia Postop Eval II 02/20/25 1147 MR#: [id number] Acct: [id number] Name: SHIVANI BONILLA Rep #: [id number] : 1950 75 From: Patrick Lew MD PCP: Dr. Ganga Acosta, DO Status:REG SDC Y Race: C Location: [address] Anesthesia Postop Eval I Sum Postop Eval Completion status Anesthesia document: Postop Eval 1 completed: Yes Anesthesia Postop Eval I Summary Anesthesia Postop Eval I Summary: Anesthesia Postop Eval I: Assessment Summary Airway patent Yes 02/20/25 11:16 [email or web address] Spontaneous unlabored Yes 02/20/25 11:16 [email or web address] respirations Mental status Asleep 02/20/25 11:16 [email or web address] nausea No 02/20/25 11:16 [email or web address] Vomiting No 02/20/25 11:16 [email or web address] Anesthesia Postop Eval I: Fluid Summary Crystalloid volume administer 700 02/20/25 11:16 [email or web address] (ml) Colloids volume administered ( ml) Blood Product volume administered (ml) Total IV fluid infused 700 02/20/25 11:16 [email or web address] Anesthesia Postop Eval I: Summary Notes Anesthesia Complication No 02/20/25 11:16 [email or web address] Anesthesia Complication Comment: Post-operative progress note Anesthesia: Postop Eval II Evaluation Mental status: Awake Pain Level: 0 nausea: No Vomiting: No 02/20/25 1147 Date Patrick Lew MD Cosigner Signature: Date CC: Signed Normal [facility] Surgery Specimen Level Lucy 02-20-2025 Surgery Specimen Level IV ---- Patient Age/Sex Location Account Attending Physician ---- SHIVANI BONILLA 75/M EN [id number] Dr. Esteban Eugene MD ---- Specimen: [id number] Received: 02/20/25 Status: ETHEL Aiken Num: [id number] Spec Type: COLON BX Subm Dr: Dr. Esteban Eugene MD HEADER OPERATION: Colonoscopy, polypectomy PRE-OP DIAGNOSIS: History of colon polyps TISSUE SUBMITTED: A- Cecal polyp ---- MICROSCOPIC DIAGNOSIS A. Cecum, polyp, biopsy: * Benign lymphoid aggregate. MICROSCOPIC DESCRIPTION Slides are reviewed. GROSS DESCRIPTION A. Received in fixative is one container labeled with the patient's name and designated Cecal polyp. The specimen consists of one irregular fragment of light bolivar soft tissue that measures 0.6 cm. The specimen is totally submitted in one cassette. Leonarda 02/20/2025 [facility]:[id number] ---- Patient Age/Sex Location Account Attending Physician ---- SHIVANI BONILLA 75/M EN [id number] Dr. Esteban Eugene MD ---- Signed (signature on file) Dr. Zandra Domínguez MD 03/03/25 1514 ---- Normal [facility] Comment on above: Performed By: #### P SUIV #### [facility] [place], [address] CNOVon 02-18-2025 CNOV Office Visit (AGHWG1 ) SHIVANI BONILLA ([id number]) 1950 M Date Time Provider Department 02/18/25 1:45 PM JONAH BRINK [email or web address] During your visit today, we recorded the following information about you: Respiration Weight Height 18/minute 100.2 kg 1.778 m Jonah Brink DO 02/19/2025 3:25 PM Signed Jonah Brink DO [facility] - Orthopedic Spine Surgeon [address] [place] [address] [address], [facility] [address] [address] [facility] [address] [address] [place] [address], [facility] [address] Phone: [phone] FAX: [phone] SPINE SURGERY OUTPATIENT NOTE SERVICE DATE: 02/18/2025 REFERRING PROVIDER: No referring provider defined for this encounter. CHIEF COMPLAINT: left ankle pain, left leg pain HISTORY OF PRESENT ILLNESS Shivani Bonilla is a 75 year old male presenting with spouse. Pain began several months ago. Has been getting progressively worse. 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 States that he does have some gluteal pain, but left ankle is the most painful. States that he has tried physical therapy for this with no relief in symptoms. States that is affecting his activities of daily living. The following portions of the patient's history were reviewed and updated as appropriate: allergies, current medications, past family history, past medical history, past social history, past surgical history and problem list. ACTIVE PROBLEM LIST (none) - all problems resolved or deleted PAST MEDICAL HISTORY Diagnosis Date Asthma (HCC) Left foot pain Prostate cancer (HCC) Rheumatoid arthritis Right foot pain PAST SURGICAL HISTORY Procedure Laterality Date ARTHRP KNE CONDYLEANDPLATU MEDIALANDLAT COMPARTMENTS Left 08/13/2004 ARTHRP KNE CONDYLEANDPLATU MEDIALANDLAT COMPARTMENTS Right 08/13/2014 CARPAL TUNNEL 82,83 x2 each wrist COLONOSCOPY 08/13/2009 FOOT SURGERY HX Right 07/2020 FOOT SURGERY HX Right 11/29/2020 FOOT SURGERY HX Left 08/18/2024 INGUINAL HERNIA REPAIR HX Right 09/13/2014 LX REPAIR RECURRENT VENTRAL HERNIA 11/08/2015 Laparoscopic repair of recurrent ventral hernia PAST SURGICAL HISTORY OF 01/11/1993 kidney stone removal PAST SURGICAL HISTORY OF 08/13/1997 cardiac catherization PAST SURGICAL HISTORY OF Left 08/13/2005 knee revision PAST SURGICAL HISTORY OF 11/24/2022 Kidney stone removal REMOVAL OF PROSTATE 02/10/2013 SHOULDER SURGERY HX Right 08/21/2023 TONSILLECTOMY HX 08/13/1977 FAMILY HISTORY Problem Relation Age of Onset other (negative [Other]) Unknown Social History Tobacco Use Smoking status: Never Passive exposure: Never Smokeless tobacco: Never Vaping Use Vaping status: Never Used Substance Use Topics Alcohol use: No Drug use: No ALLERGIES Allergen Reactions Gluten Shortness of Breath Peanuts Shortness of Breath Yeast, Dried Shortness of Breath MEDICATIONS: gabapentin (NEURONTIN) 300 mg capsule Take 1 capsule by mouth two times a day for 30 days. ACTEMRA ACTPEN 162 mg/0.9 mL 1 injection Subcutaneous weekly for 28 days gabapentin (NEURONTIN) 300 mg capsule Take 2 capsules by mouth daily at bedtime for 90 days. DULoxetine (CYMBALTA) 30 mg capsule Take 30 mg by mouth once daily. hydrOXYchloroQUINE (PLAQUENIL) 200 mg tablet linezolid (ZYVOX) 600 mg tablet budesonide/formoterol fumarate (SYMBICORT INHALATION) Inhale as instructed. tiotropium bromide (SPIRIVA RESPIMAT INHALATION) Inhale as instructed. leflunomide (ARAVA) 20 mg tablet Take 20 mg by mouth once daily. montelukast (SINGULAIR) 10 mg tablet once daily. folic acid 1 mg tablet once daily. Multivitamin capsule Take 1 capsule by mouth once daily. mometasone (NASONEX) 50 mcg/actuation nasal spray Use 2 Sprays in the nose once daily. Review of systems documented within chart for 02/18/2025 visit and reviewed by me today OBJECTIVE: PHYSICAL EXAM Resp 18 Ht 177.8 cm (5' 10) Wt 100.2 kg (221 lb) BMI 31.71 kg/m? GENERAL APPEARANCE: Well nourished, well developed, and no apparent distress. NEURO PSYCH: Patient oriented to person, place, and time. Mood pleasant. Benign affect. CARDIOVASCULAR: Palpable pulses. No edema noted. No varicosities. SKIN: Head, neck, trunk, and extremities dry, intact and without lesions. LYMPHATICS: No palpable nodes in cervical or axillae areas. Groin exam deferred. MUSCULOSKELETAL PALPATION: SPINOUS PROCESS: No pain. PARASPINALS: No pain. MUSCLE TONE and BULK: Symmetrical in the upper AND lower extremities. MOTOR: Left Right Lower Extremity Hip Flexors 5/5 5/5 Quadriceps 5/5 5/5 Dorsiflexion 0/5 5/5 EHL 5/5 5/5 Plantar Flexion 5/5 5/5 SENSORY: Sensation intact to light touch C5-T1, L1-S1 GAIT: Able to perform toe and heel walk. Able to perform tandem gait. LONG TRACT SIGNS: No clonus. No Hoffmanns. REFLEXES: symmetric non-brisk ROSALIA (more content not included)... [facility] Office Visit (AGHWW1 ) SHIVANI BONILLA ([id number]) 1950 M Date Time Provider Department 02/16/25 9:15 AM SHAAN MAYORGA AGHWW1 During your visit today, we recorded the following information about you: Temperature Weight Height 98.2 degrees 100.2 kg 1.778 m Jean Hardy Tech 02/16/2025 10:04 AM Signed REVIEW OF SYSTEMS: GENERAL: Well developed, well nourished. No acute distress PAIN: Negative for pain, history of chronic pain or current treatment for chronic pain conditions CARDIOVASCULAR: Negative for chest pain, leg swelling and palpations. MSK: Negative for joint swelling SKIN: Negative for lesions, rash, itching, metal sensitivity NEURO: Numbness/tingling of extremties ENDOCRINE: Negative for diabetic associated symptoms HEMATOLOGY: Negative for excessive bleeding, clots, bleeding disorders. Shaan Mayorga, DO 02/16/2025 10:04 AM Signed Job Bonilla is a 75-year-old male presenting for follow-up on MRI results and evaluation of chronic left leg and back pain. Chronic Left Leg and Back Pain: - Pain x6 months, exacerbated by standing >10 minutes. - Utilizes a walker or cane for ambulation. - Recent injection provided no relief. - No pain radiating down the right leg. - Reports weakness with dorsiflexion. - MRI results reviewed; EMG scheduled for the . PAST MEDICAL HISTORY Diagnosis Date Asthma (HCC) Left foot pain Prostate cancer (HCC) Rheumatoid arthritis Right foot pain PAST SURGICAL HISTORY Procedure Laterality Date ARTHRP KNE CONDYLEANDPLATU MEDIALANDLAT COMPARTMENTS Left 08/13/2004 ARTHRP KNE CONDYLEANDPLATU MEDIALANDLAT COMPARTMENTS Right 08/13/2014 CARPAL TUNNEL 82,83 x2 each wrist COLONOSCOPY 08/13/2009 FOOT SURGERY HX Right 07/2020 FOOT SURGERY HX Right 11/29/2020 FOOT SURGERY HX Left 08/18/2024 INGUINAL HERNIA REPAIR HX Right 09/13/2014 LX REPAIR RECURRENT VENTRAL HERNIA 11/08/2015 Laparoscopic repair of recurrent ventral hernia PAST SURGICAL HISTORY OF 01/11/1993 kidney stone removal PAST SURGICAL HISTORY OF 08/13/1997 cardiac catherization PAST SURGICAL HISTORY OF Left 08/13/2005 knee revision PAST SURGICAL HISTORY OF 11/24/2022 Kidney stone removal REMOVAL OF PROSTATE 02/10/2013 SHOULDER SURGERY HX Right 08/21/2023 TONSILLECTOMY HX 08/13/1977 Social History Tobacco Use Smoking status: Never Passive exposure: Never Smokeless tobacco: Never Vaping Use Vaping status: Never Used Substance Use Topics Alcohol use: No Drug use: No Current Outpatient Medications Medication Sig ACTEMRA ACTPEN 162 mg/0.9 mL 1 injection Subcutaneous weekly for 28 days DULoxetine (CYMBALTA) 30 mg capsule Take 30 mg by mouth once daily. hydrOXYchloroQUINE (PLAQUENIL) 200 mg tablet linezolid (ZYVOX) 600 mg tablet budesonide/formoterol fumarate (SYMBICORT INHALATION) Inhale as instructed. tiotropium bromide (SPIRIVA RESPIMAT INHALATION) Inhale as instructed. leflunomide (ARAVA) 20 mg tablet Take 20 mg by mouth once daily. Multivitamin capsule Take 1 capsule by mouth once daily. mometasone (NASONEX) 50 mcg/actuation nasal spray Use 2 Sprays in the nose once daily. gabapentin (NEURONTIN) 600 mg tablet Take 1 tablet by mouth once daily for 90 days. gabapentin (NEURONTIN) 300 mg capsule Take 1 capsule by mouth two times a day for 30 days. gabapentin (NEURONTIN) 300 mg capsule Take 2 capsules by mouth daily at bedtime for 90 days. gabapentin (NEURONTIN) 400 mg capsule Take 1 capsule by mouth daily at bedtime for 90 days. Risedronate 150 mg tablet Take 150 mg by mouth once every month. In AM with cup of water on empty stomach. Nothing else by mouth and stay upright for 30 min. montelukast (SINGULAIR) 10 mg tablet once daily. folic acid 1 mg tablet once daily. No current facility-administered medications for this visit. ALLERGIES Allergen Reactions Gluten Shortness of Breath Peanuts Shortness of Breath Yeast, Dried Shortness of Breath Temp 98.2 Ht 5' 10 (1.78m) Wt 221 lb (100.2kg) BMI 31.71 kg/(m2). Review of systems: Musculoskeletal: (+) left leg pain, (+) back pain, (-) right leg radicular pain Neurological: (+) foot weakness Psychiatric: (+) claustrophobia, (+) nightmares EXAM: - Musculoskeletal: - Left Foot: Weakness noted with dorsiflexion. - Neurological: Foot drop present. Imaging: - MRI Lumbar Spine: - L4-L5: Severe spinal canal stenosis due to anterolisthesis and ligamentum flavum thickening - L5-S1: Severe bilateral foraminal stenosis due to endplate spurring and facet arthropathy - Arthritis of the sacroiliac joints - Lumbar Spine X-ray: - Spondylolisthesis - Arthritic changes Procedures ASSESSMENT: (M48.062) Spinal stenosis, lumbar region with neurogenic claudication (M43.16) Spondylolisthesis, lumbar region PLAN: 1. Spinal stenosis, lumbar region with neurogenic claudication (more content not included)... Normal [facility] CNOVon 02-12-2025 CNOV Office Visit (AGHWW1 ) SHIVANI BONILLA ([id number]) 1950 M Date Time Provider Department 02/12/25 2:15 PM MCKINLEY GUZMAN [id number] During your visit today, we recorded the following information about you: Respiration Weight Height 18/minute 102.1 kg 1.778 m Natasha Beal LPN 02/12/2025 4:52 PM Signed REVIEW OF SYSTEMS: GENERAL: Well developed, well nourished. No acute distress PAIN: Pain Left ankle CARDIOVASCULAR: Negative for chest pain, leg swelling and palpations. MSK: Positive for joint swelling SKIN: Negative for lesions, rash, itching, metal sensitivity NEURO: Numbness/tingling of extremties ENDOCRINE: Negative for diabetic associated symptoms HEMATOLOGY: Negative for excessive bleeding, clots, bleeding disorders. Mckinley Guzman DPM 02/12/2025 4:52 PM Signed HPI: This 74 year old male presents for concerns of LLE ankle pain. Patient states they are doing the same as they were doing at the previous visit. Rates pain 8/10 today. Admits to having continuous aching, sharp, shooting pain. Since his last visit, he has obtained a CT of his left ankle and would like to hear more about the results. Additionally, states that the sore on his 2nd toe seems to be improving since he last saw us though he does admit to some clear drainage. Pain is somewhat controlled with Gabapentin. Has been weightbearing as tolerated to the left lower extremity in a shoe with use of AFO brace. Recently started Actemra with rheum about a couple of months ago. He did see Dr. Mayorga for his back and got an MRI completed and will be following up with him to discuss results next week. Denies any current nausea, vomiting, fever, chills, shortness of breath, chest pain or calf pain. Denies any other pedal complaints PAST MEDICAL HISTORY Diagnosis Date Asthma (HCC) Left foot pain Prostate cancer (HCC) Rheumatoid arthritis Right foot pain Current Outpatient Medications Medication Sig gabapentin (NEURONTIN) 600 mg tablet Take 1 tablet by mouth once daily for 90 days. gabapentin (NEURONTIN) 300 mg capsule Take 1 capsule by mouth two times a day for 30 days. ACTEMRA ACTPEN 162 mg/0.9 mL 1 injection Subcutaneous weekly for 28 days gabapentin (NEURONTIN) 300 mg capsule Take 2 capsules by mouth daily at bedtime for 90 days. gabapentin (NEURONTIN) 400 mg capsule Take 1 capsule by mouth daily at bedtime for 90 days. DULoxetine (CYMBALTA) 30 mg capsule Take 30 mg by mouth once daily. hydrOXYchloroQUINE (PLAQUENIL) 200 mg tablet linezolid (ZYVOX) 600 mg tablet budesonide/formoterol fumarate (SYMBICORT INHALATION) Inhale as instructed. tiotropium bromide (SPIRIVA RESPIMAT INHALATION) Inhale as instructed. leflunomide (ARAVA) 20 mg tablet Take 20 mg by mouth once daily. Risedronate 150 mg tablet Take 150 mg by mouth once every month. In AM with cup of water on empty stomach. Nothing else by mouth and stay upright for 30 min. montelukast (SINGULAIR) 10 mg tablet once daily. folic acid 1 mg tablet once daily. Multivitamin capsule Take 1 capsule by mouth once daily. mometasone (NASONEX) 50 mcg/actuation nasal spray Use 2 Sprays in the nose once daily. No current facility-administered medications for this visit. ALLERGIES Allergen Reactions Gluten Shortness of Breath Peanuts Shortness of Breath Yeast, Dried Shortness of Breath Objective: Patient presents weightbearing as tolerated to BLE Left foot: Incision site is well coapted without evidence of dehiscence. No erythema or edema surrounding surgical site. No lymphadenopathy. No lymphangitis. No surrounding cellulitis. No signs of infection. Patient has no pain to palpation of calf. The calf is soft, supple and nontender without evidence of DVT. Negative Sita's test. Satisfactory alignment is noted. Pedal pulses are palpable. Capillary refill time is less than three seconds to all digits. Sensations are intact to light touch. General foot morphology: decreased medial longitudinal arch with plantar prominence at midfoot. 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 +4/5 muscle strength Dorsiflexion, Plantarflexion, Inversion, Eversion, no DF strength to LLE, limited PF strength. No palpable dell noted to achilles tendon. No evidence of ulcerations noted. Non palpable AT tendon concerning for chronic rupture. Foot drop noted of LLE. No tenderness to palpation of left achilles tendon at mid substance level. No palpable dells. Negative ignacio test. Tenderness to palpation of left forefoot and midfoot improved since last exam. ROM of the 1st MTPJ is decreased without pain or crepitus. ROM of the MTJ/STJ is decreased without pain or crepitus. Ankle joint ROM is decreased with pain on palpation noted to the left > right. No erythema or edema about the plantar midfoot right. Results MRI ANKLE WO IVCON LEFT (Acc#[id number] (more content not included)... Normal [facility] Surgery Visit Reporton 02-10 Surgery Visit Report [facility] [address] [place] [address] OFFICE VISIT Date of Service: 02/10/25 MR#: [id number] Acct: [id number] Name: SHIVANI BONILLA Rep #: [id number] : 1950 Provider: Dr. Esteban byrnes MD Age/Sex: 75/M Location: [facility] Status: Signed Intake Vital Signs 11/09/24 15:52 02/10/25 12:59 Height 5 ft 10 in 5 ft 10 in Weight: 231 lb 2 oz BMI 33.1 BP 129/79 H Blood Pressure Location Rt brachial Position Sitting Respiration 18 Pulse 71 Pulse Source Monitor Temp 97.2 F L Temp Source Temporal Pulse Oximetry (%) 95 Oxygen Delivery Method room air Intake Visit Reasons: RECALL COLONOSCOPY Chief Complaint: Colonoscopy [employer] Required: No Accompanied by: Is patient in pain?: No Allergies doxycycline Adverse Reaction (Intermediate, Verified 02/10/25 13:01) Hives Environmental Allergies: Uncoded Adverse Reaction (Intermediate, Verified 02/10/25 13:01) Other Medications ???Medication ???Instructions ???Recorded ???Confirmed ???Type risedronate 150 mg tablet 150 mg PO QMONTH BONES 11/25/20 History hydroxychloroquine 200 mg tablet 200 mg PO DAILY arthritis 01/05/21 02/10/25 History (Plaquenil) albuterol sulfate 90 mcg/actuation 2 inh inhalation Q6H PRN ASTHMA #3 10/05/21 02/10/25 Rx aerosol inhaler ea azelastine 137 mcg (0.1 %) nasal 2 spray intranasal BID breathing 0 12/26/21 02/10/25 History spray cholecalciferol (vitamin D3) 50 50 mcg PO DAILY supplement 2 02/10/25 History mcg (2,000 unit) capsule leflunomide 20 mg tablet 20 mg PO DAILY arthritis 05/16/22 02/10/25 History multivitamin (Multiple Vitamins 1 tab PO DAILY supplement 05/16/22 02/10/25 History tablet) gabapentin 100 mg capsule 400 mg PO QHS pain 09/18/22 History flurbiprofen 100 mg tablet 100 mg PO DAILY PRN pain #90 tabs 12/19/22 02/10/25 Rx famotidine 20 mg tablet 20 mg PO QDAY 04/02/24 02/10/25 Hi story budesonide-formoterol HFA 160 2 inh inhalation BID breathing #3 04/08/24 02/10/25 Rx mcg-4.5 mcg/actuation aerosol ea inhaler (Symbicort) prednisone 10 mg tablet 10 mg PO QDAY #30 tabs 07/16/24 Rx fluticasone propionate 50 2 spray intranasal DAILY #3 ea 02/10/25 Rx mcg/actuation nasal spray,suspension tiotropium bromide 1.25 2 inh inhalation DAILY BREATHING 0 09/26/24 02/10/25 Rx mcg/actuation mist for inhalation #3 device (Spiriva Respimat) montelukast 10 mg tablet 10 mg PO QPM sinuses #90 tabs 09/14 002/10/25 Rx tocilizumab 162 mg/0.9 mL mg subcut QWEEK 02/10/25 02/10/25 History subcutaneous pen injector (Actemra ACTPen) Have you fallen in the past year?: No PFSH Medical History (Updated 02/10/25 @ 13:[address] Esteban Eugene MD) Polyneuropathy Cancer Fatigue Skin cancer Glaucoma Carpal tunnel syndrome Cataracts, bilateral Wears glasses Cancer History of steroid therapy Arthritis Kidney stones Gastric reflux Non-smoker CPAP (continuous positive airway pressure) dependence Sleep apnea Shortness of breath on exertion History of echocardiogram History of stress test Cardiology follow-up encounter Neuropathy KEZIA treated with BiPAP Moderate persistent allergic asthma without complication Asbestos exposure GERD (gastroesophageal reflux disease) BPH (benign prostatic hyperplasia) Osteopenia Osteoarthritis DDD (degenerative disc disease), cervical Gastric ulcer Obesity Rheumatoid arthritis Kidney stones Prostate cancer Surgical History (Updated 02/10/25 @ 13:06 by Samantha Singh) History of shoulder replacement History of cardiac catheterization Hx of colonoscopy Hx of foot surgery History of removal of retained hardware History of tonsillectomy History of rhinoplasty History of total knee arthroplasty H/O prostatectomy History of inguinal hernia repair History of carpal tunnel release History of left heart catheterization (07/23/18) Family History Mother Heart disease CHF atrial fib Sister Hypertension Social History household members: spouse Smoking Status: Never smoker second hand exposure: No alcohol intake: never substance use type: does not use what type of physical activity do you participate in: none drea/mosque: [employer] seatbelt use: always HPI HPI HPI: Patient is a 75-year-old male here to discuss follow-up colonoscopy 5 years after his last colonoscopy. He had polyps removed and was recommended for repeat in 5 years. He does report that he had an episode of bright red blood recently but it was only 1 episode and it was painless. ROS (more content not included)... Normal [facility] MR Lumbar spine WO [facility] n 02-06-2025 IMPRESSION: Multilevel degenerative changes of the lumbar spine, worst at L4-5. Anatomic Lumbar Variant: None. L4-5 is considered the level of the iliac crest and assume there are 5 lumbar-type vertebrae. Fabric Sourcer: ROSCOE Transcribe Date/Time: Feb 06 2025 3:40P Dictated by : JOAQUIM CARRILLO MD This examination was interpreted and the report reviewed and electronically signed by: JOAQUIM CARRILLO MD on Feb 06 2025 3:49PM EST [facility] * * *Final Report* * * DATE OF EXAM: Feb 06 2025 2:12PM ERIC [id number] - MRI LUMBAR SPINE WO IVCON / PROCEDURE REASON: multiple diagnoses * * * * Physician Interpretation * * * * EXAMINATION: MRI LUMBAR SPINE WO IVCON CLINICAL HISTORY: Low back pain, unspecified back pain laterality, unspecified chronicity, unspecified whether sciatica present. Left foot drop TECHNIQUE: Routine lumbosacral spine MR protocol without gadolinium. MQ: [id number]_3 COMPARISON: CT abdomen pelvis 04/05/2021 RESULT: Counting reference: Lumbosacral junction. For the purposes of this report, L4-5 is considered the level of the iliac crest and assume there are 5 lumbar-type vertebrae. Anatomic variant: None. Localizer images: No significant findings. Alignment: Stepwise grade 1 retrolisthesis at L1-2, L2-3, L3-4. Grade 1 anterolisthesis at L4-5. Bone marrow signal/fracture: No evidence of pathologic marrow infiltration. No evidence of prior fracture. Type II discogenic endplate changes of the superior and inferior L1 endplates and inferior L2 endplate. Conus: The conus is within normal limits of signal intensity and morphology. Paraspinal soft tissues: Mild atrophy of the paraspinal musculature. Simple appearing bilateral renal cysts. Lower thoracic spine: Visualized lower thoracic canal and foramina are patent. L1-L2: Spinal canal and left foramen are patent. Mild right foraminal stenosis due to facet arthropathy. L2-L3: Spinal canal is patent. Moderate right foraminal stenosis due to endplate spurring and facet arthropathy. No significant left foraminal stenosis. L3-L4: Spinal canal is patent. Mild bilateral foraminal stenosis due to endplate spurring and facet arthropathy. L4-L5: Severe spinal canal stenosis due to anterolisthesis and ligamentum flavum thickening. Mild right and moderate left foraminal stenosis due to anterolisthesis and facet arthropathy. L5-S1: Spinal canal is patent despite disc bulge. Severe bilateral foraminal stenosis due to endplate spurring and facet arthropathy. Sacrum and iliac wings: Degenerative changes of both sacroiliac joints. [facility] Provider, Anamaria Cortes - 02/06/2025 * * *Final Report* * * DATE OF EXAM: Feb 06 2025 2:12PM ERIC [id number] - MRI LUMBAR SPINE WO IVCON / PROCEDURE REASON: multiple diagnoses * * * * Physician Interpretation * * * * EXAMINATION: MRI LUMBAR SPINE WO IVCON CLINICAL HISTORY: Low back pain, unspecified back pain laterality, unspecified chronicity, unspecified whether sciatica present. Left foot drop TECHNIQUE: Routine lumbosacral spine MR protocol without gadolinium. MQ: [id number]_3 COMPARISON: CT abdomen pelvis 04/05/2021 RESULT: Counting reference: Lumbosacral junction. For the purposes of this report, L4-5 is considered the level of the iliac crest and assume there are 5 lumbar-type vertebrae. Anatomic variant: None. Localizer images: No significant findings. Alignment: Stepwise grade 1 retrolisthesis at L1-2, L2-3, L3-4. Grade 1 anterolisthesis at L4-5. Bone marrow signal/fracture: No evidence of pathologic marrow infiltration. No evidence of prior fracture. Type II discogenic endplate changes of the superior and inferior L1 endplates and inferior L2 endplate. Conus: The conus is within normal limits of signal intensity and morphology. Paraspinal soft tissues: Mild atrophy of the paraspinal musculature. Simple appearing bilateral renal cysts. Lower thoracic spine: Visualized lower thoracic canal and foramina are patent. L1-L2: Spinal canal and left foramen are patent. Mild right foraminal stenosis due to facet arthropathy. L2-L3: Spinal canal is patent. Moderate right foraminal stenosis due to endplate spurring and facet arthropathy. No significant left foraminal stenosis. L3-L4: Spinal canal is patent. Mild bilateral foraminal stenosis due to endplate spurring and facet arthropathy. L4-L5: Severe spinal canal stenosis due to anterolisthesis and ligamentum flavum thickening. Mild right and moderate left foraminal stenosis due to anterolisthesis and facet arthropathy. L5-S1: Spinal canal is patent despite disc bulge. Severe bilateral foraminal stenosis due to endplate spurring and facet arthropathy. Sacrum and iliac wings: Degenerative changes of both sacroiliac joints. IMPRESSION IMPRESSION: Multilevel degenerative changes of the lumbar spine, worst at L4-5. Anatomic Lumbar Variant: None. L4-5 is considered the level of the iliac crest and assume there are 5 lumbar-type vertebrae. Fabric Sourcer: PSCB Transcribe Date/Time: Feb 06 2025 3:40P Dictated by : JOAQUIM CARRILLO MD This examination was interpreted and the report reviewed and electronically signed by: JOAQUIM CARRILLO MD on Feb 06 2025 3:49PM EST [facility] Radiology Study observation (narrative) [facility] MR Lumbar spine WO contrastO rdered By: [facility] Provider on 02-06-2025 [facility] MRI LUMBAR SPINE WO IVCONon 02-06-2025 MRI LUMBAR SPINE WO IVCON * * *Final Report* * * DATE OF EXAM: Feb 06 2025 2:12PM RJM [id number] - MRI LUMBAR SPINE WO IVCON / PROCEDURE REASON: multiple diagnoses * * * * Physician Interpretation * * * * EXAMINATION: MRI LUMBAR SPINE WO IVCON CLINICAL HISTORY: Low back pain, unspecified back pain laterality, unspecified chronicity, unspecified whether sciatica present. Left foot drop TECHNIQUE: Routine lumbosacral spine MR protocol without gadolinium. MQ: [id number]_3 COMPARISON: CT abdomen pelvis 04/05/2021 RESULT: Counting reference: Lumbosacral junction. For the purposes of this report, L4-5 is considered the level of the iliac crest and assume there are 5 lumbar-type vertebrae. Anatomic variant: None. Localizer images: No significant findings. Alignment: Stepwise grade 1 retrolisthesis at L1-2, L2-3, L3-4. Grade 1 anterolisthesis at L4-5. Bone marrow signal/fracture: No evidence of pathologic marrow infiltration. No evidence of prior fracture. Type II discogenic endplate changes of the superior and inferior L1 endplates and inferior L2 endplate. Conus: The conus is within normal limits of signal intensity and morphology. Paraspinal soft tissues: Mild atrophy of the paraspinal musculature. Simple appearing bilateral renal cysts. Lower thoracic spine: Visualized lower thoracic canal and foramina are patent. L1-L2: Spinal canal and left foramen are patent. Mild right foraminal stenosis due to facet arthropathy. L2-L3: Spinal canal is patent. Moderate right foraminal stenosis due to endplate spurring and facet arthropathy. No significant left foraminal stenosis. L3-L4: Spinal canal is patent. Mild bilateral foraminal stenosis due to endplate spurring and facet arthropathy. L4-L5: Severe spinal canal stenosis due to anterolisthesis and ligamentum flavum thickening. Mild right and moderate left foraminal stenosis due to anterolisthesis and facet arthropathy. L5-S1: Spinal canal is patent despite disc bulge. Severe bilateral foraminal stenosis due to endplate spurring and facet arthropathy. Sacrum and iliac wings: Degenerative changes of both sacroiliac joints. IMPRESSION: Multilevel degenerative changes of the lumbar spine, worst at L4-5. Anatomic Lumbar Variant: None. L4-5 is considered the level of the iliac crest and assume there are 5 lumbar-type vertebrae. Fabric Sourcer: PSCB Transcribe Date/Time: Feb 06 2025 3:40P Dictated by : JOAQUIM CARRILLO MD This examination was interpreted and the report reviewed and electronically signed by: JOAQUIM CARRILLO MD on Feb 06 2025 3:49PM EST [id number] [facility] Telephone ([id number]) SHIVANI BONILLA ([id number]) 1950 M Date Time Provider Department 02/05/25 [facility]PINE3 During your visit today, we recorded the following information about you: Carlita Turk 02/05/2025 9:47 AM Signed LVM to schedule EMG Carlita Turk Allergies As of Date: 02/05/2025 Noted Allergy Reaction GLUTEN 10/21/2015 12 - Shortness of Breath PEANUTS 10/21/2015 12 - Shortness of Breath YEAST, DRIED 10/21/2015 12 - Shortness of Breath Date Reviewed: 02/03/2025 Reviewed by: Cory Lambert LPN - Fully Assessed Prescriptions as of 02/05/2025 - gabapentin (NEURONTIN) 600 mg tablet Take 1 tablet by mouth once daily for 90 days. - gabapentin (NEURONTIN) 300 mg capsule Take 1 capsule by mouth two times a day for 30 days. - ACTEMRA ACTPEN 162 mg/0.9 mL 1 injection Subcutaneous weekly for 28 days - gabapentin (NEURONTIN) 300 mg capsule Take 2 capsules by mouth daily at bedtime for 90 days. - gabapentin (NEURONTIN) 400 mg capsule Take 1 capsule by mouth daily at bedtime for 90 days. - DULoxetine (CYMBALTA) 30 mg capsule Take 30 mg by mouth once daily. - hydrOXYchloroQUINE (PLAQUENIL) 200 mg tablet - linezolid (ZYVOX) 600 mg tablet - budesonide/formoterol fumarate (SYMBICORT INHALATION) Inhale as instructed. - tiotropium bromide (SPIRIVA RESPIMAT INHALATION) Inhale as instructed. - leflunomide (ARAVA) 20 mg tablet Take 20 mg by mouth once daily. - Risedronate 150 mg tablet Take 150 mg by mouth once every month. In AM with cup of water on empty stomach. Nothing else by mouth and stay upright for 30 min. - montelukast (SINGULAIR) 10 mg tablet once daily. - folic acid 1 mg tablet once daily. - Multivitamin capsule Take 1 capsule by mouth once daily. - mometasone (NASONEX) 50 mcg/actuation nasal spray Use 2 Sprays in the nose once daily. Problem List As Of Date 02/05/2025 Noted Resolved Incisional hernia, without obstruction or gangr*11/11/2015 08/18/2024 Encounter Status:Closed by [facility]K [facility] Office Visit (AGHWG1 ) SHIVANI BONILLA ([id number]) 1950 M Date Time Provider Department 02/03/25 1:30 PM SHAAN MAYORGA AGHWG1 During your visit today, we recorded the following information about you: Respiration Weight Height 18/minute 106.6 kg 1.778 m Shaan Mayorga, DO 02/03/2025 2:05 PM Signed Job Bonilla is a 75-year-old male with a history of neuropathy, presenting for evaluation of left ankle pain and back pain. Left Ankle Pain: - Severe, sharp pain in Job's left ankle, worsening over the past 6 months. - Pain is primarily lateral and radiates up towards the knee with prolonged standing. - Described as unbearable and sharp; worsens with weight-bearing. - Pain disrupts sleep; requires specific positioning to avoid pressure. - Using a Neowalker and post-op shoe for mobility; pain is more tolerable with these aids. - Cortisone injection provided no relief. - MRI of Job's ankle performed on November 13; CT scan this month. - History of foot drop and neuropathy in both feet. - Taking gabapentin for neuropathy pain, with no relief for ankle pain. Back Pain: - Stiffness in Job's lower back in the morning. - Pain in the left buttock. - No history of sciatica or nerve pinching. - History of back injury as a child, with occasional sensation of needing to pop back in. PAST MEDICAL HISTORY Diagnosis Date Asthma (HCC) Left foot pain Prostate cancer (HCC) Rheumatoid arthritis Right foot pain PAST SURGICAL HISTORY Procedure Laterality Date ARTHRP KNE CONDYLEANDPLATU MEDIALANDLAT COMPARTMENTS Left 08/13/2004 ARTHRP KNE CONDYLEANDPLATU MEDIALANDLAT COMPARTMENTS Right 08/13/2014 CARPAL TUNNEL 82,83 x2 each wrist COLONOSCOPY 08/13/2009 FOOT SURGERY HX Right 07/2020 FOOT SURGERY HX Right 11/29/2020 FOOT SURGERY HX Left 08/18/2024 INGUINAL HERNIA REPAIR HX Right 09/13/2014 LX REPAIR RECURRENT VENTRAL HERNIA 11/08/2015 Laparoscopic repair of recurrent ventral hernia PAST SURGICAL HISTORY OF 01/11/1993 kidney stone removal PAST SURGICAL HISTORY OF 08/13/1997 cardiac catherization PAST SURGICAL HISTORY OF Left 08/13/2005 knee revision PAST SURGICAL HISTORY OF 11/24/2022 Kidney stone removal REMOVAL OF PROSTATE 02/10/2013 SHOULDER SURGERY HX Right 08/21/2023 TONSILLECTOMY HX 08/13/1977 Social History Tobacco Use Smoking status: Never Passive exposure: Never Smokeless tobacco: Never Vaping Use Vaping status: Never Used Substance Use Topics Alcohol use: No Drug use: No Current Outpatient Medications Medication Sig gabapentin (NEURONTIN) 600 mg tablet Take 1 tablet by mouth once daily for 90 days. gabapentin (NEURONTIN) 300 mg capsule Take 1 capsule by mouth two times a day for 30 days. ACTEMRA ACTPEN 162 mg/0.9 mL 1 injection Subcutaneous weekly for 28 days gabapentin (NEURONTIN) 300 mg capsule Take 2 capsules by mouth daily at bedtime for 90 days. gabapentin (NEURONTIN) 400 mg capsule Take 1 capsule by mouth daily at bedtime for 90 days. DULoxetine (CYMBALTA) 30 mg capsule Take 30 mg by mouth once daily. hydrOXYchloroQUINE (PLAQUENIL) 200 mg tablet linezolid (ZYVOX) 600 mg tablet budesonide/formoterol fumarate (SYMBICORT INHALATION) Inhale as instructed. tiotropium bromide (SPIRIVA RESPIMAT INHALATION) Inhale as instructed. leflunomide (ARAVA) 20 mg tablet Take 20 mg by mouth once daily. doxycycline hyclate (VIBRAMYCIN) 100 mg capsule Take 100 mg by mouth twice daily. Risedronate 150 mg tablet Take 150 mg by mouth once every month. In AM with cup of water on empty stomach. Nothing else by mouth and stay upright for 30 min. methotrexate sodium 25 mg/mL soln once each week. montelukast (SINGULAIR) 10 mg tablet once daily. folic acid 1 mg tablet once daily. amoxicillin (POLYMOX, AMOXIL) 500 mg capsule once daily. (Patient not taking: Reported on 03/31/2021 ) BD TUBERCULIN SYRINGE 1 mL 25 x 5/8 syrg Multivitamin capsule Take 1 capsule by mouth once daily. GLUCOSAMINE/CHONDROITI N SULF A (GLUCOSAMINE-CHONDROIT IN ORAL) Take by mouth. mometasone (NASONEX) 50 mcg/actuation nasal spray Use 2 Sprays in the nose once daily. No current facility-administered medications for this visit. ALLERGIES Allergen Reactions Gluten Shortness of Breath Peanuts Shortness of Breath Yeast, Dried Shortness of Breath Resp 18 Ht 5' 10 (1.78m) Wt 235 lb (106.6kg) BMI 33.72 kg/(m2). Review of systems: Constitutional: (+) sleep disturbance Musculoskeletal: (+) left ankle pain, (+) radiating pain from left ankle to knee, (+) morning low back stiffness, (+) left buttock pain, (-) burning ankle pain Skin: (+) right toe sore Neurological: (+) bilateral foot neuropathic pain, (+) foot drop EXAM: - Musculoskeletal: - Left Ankle: - Lateral ankle pain reported. - Back: - No severe pain elicited with forward flexion. - Neuro (more content not included)... Normal [facility] XR Lumbar spine AP and Later michael 02-03-2025 AP and lateral views of the lumbar spine were taken. Multilevel degenerative disc disease most notable moderate degenerative disc disease with L4-L5 spondylolisthesis. Degenerative retrolisthesis L1-2 and L2-L3. No fracture compression deformity. [facility] Radiology Study observation (narrative) [facility] CNOVon 01-29-2025 CNOV Office Visit (AGHWW1 ) SHIVANI BONILLA ([id number]) 1950 M Date Time Provider Department 01/29/25 2:45 PM MCKINLEY GUZMAN [id number] During your visit today, we recorded the following information about you: Temperature Weight Height 98.3 degrees 106.6 kg 1.778 m Jean Hardy Tech 01/29/2025 5:48 PM Signed REVIEW OF SYSTEMS: GENERAL: Well developed, well nourished. No acute distress PAIN: Negative for pain, history of chronic pain or current treatment for chronic pain conditions CARDIOVASCULAR: Negative for chest pain, leg swelling and palpations. MSK: Negative for joint swelling SKIN: Negative for lesions, rash, itching, metal sensitivity NEURO: Numbness/tingling of extremties ENDOCRINE: Negative for diabetic associated symptoms HEMATOLOGY: Negative for excessive bleeding, clots, bleeding disorders. Mckinley Guzman DPM 01/29/2025 5:48 PM Signed HPI: This 74 year old male presents for concerns of LLE ankle pain. Patient states they are doing the same as they were doing at the previous visit. Rates pain 8/10 today. Admits to having continuous aching, sharp, shooting pain. Since his last visit, he has obtained a CT of his left ankle and would like to hear more about the results. Additionally, states that the sore on his right 2nd toe has worsened since he last saw us. Pain is somewhat controlled with Gabapentin. Has been weightbearing as tolerated to the left lower extremity in a shoe with use of AFO brace. Recently started Actemra with rheum about 2 months ago. Denies any current nausea, vomiting, fever, chills, shortness of breath, chest pain or calf pain. Denies any other pedal complaints PAST MEDICAL HISTORY Diagnosis Date Asthma (HCC) Left foot pain Prostate cancer (HCC) Rheumatoid arthritis Right foot pain Current Outpatient Medications Medication Sig gabapentin (NEURONTIN) 300 mg capsule Take 1 capsule by mouth two times a day for 30 days. ACTEMRA ACTPEN 162 mg/0.9 mL 1 injection Subcutaneous weekly for 28 days DULoxetine (CYMBALTA) 30 mg capsule Take 30 mg by mouth once daily. hydrOXYchloroQUINE (PLAQUENIL) 200 mg tablet linezolid (ZYVOX) 600 mg tablet budesonide/formoterol fumarate (SYMBICORT INHALATION) Inhale as instructed. leflunomide (ARAVA) 20 mg tablet Take 20 mg by mouth once daily. Multivitamin capsule Take 1 capsule by mouth once daily. mometasone (NASONEX) 50 mcg/actuation nasal spray Use 2 Sprays in the nose once daily. gabapentin (NEURONTIN) 300 mg capsule Take 2 capsules by mouth daily at bedtime for 90 days. gabapentin (NEURONTIN) 600 mg tablet Take 1 tablet by mouth once daily for 90 days. gabapentin (NEURONTIN) 400 mg capsule Take 1 capsule by mouth daily at bedtime for 90 days. tiotropium bromide (SPIRIVA RESPIMAT INHALATION) Inhale as instructed. doxycycline hyclate (VIBRAMYCIN) 100 mg capsule Take 100 mg by mouth twice daily. Risedronate 150 mg tablet Take 150 mg by mouth once every month. In AM with cup of water on empty stomach. Nothing else by mouth and stay upright for 30 min. methotrexate sodium 25 mg/mL soln once each week. montelukast (SINGULAIR) 10 mg tablet once daily. folic acid 1 mg tablet once daily. amoxicillin (POLYMOX, AMOXIL) 500 mg capsule once daily. (Patient not taking: Reported on 03/31/2021 ) BD TUBERCULIN SYRINGE 1 mL 25 x 5/8 syrg GLUCOSAMINE/CHONDROITI N SULF A (GLUCOSAMINE-CHONDROIT IN ORAL) Take by mouth. No current facility-administered medications for this visit. ALLERGIES Allergen Reactions Gluten Shortness of Breath Peanuts Shortness of Breath Yeast, Dried Shortness of Breath Objective: Patient presents weightbearing as tolerated to left leg. Problem focus examination to the left lower extremity: Incision site is well coapted without evidence of dehiscence. No erythema or edema surrounding surgical site. No drainage. No lymphadenopathy. No lymphangitis. No surrounding cellulitis. No signs of infection. Patient has no pain to palpation of calf. The calf is soft, supple and nontender without evidence of DVT. Negative Sita's test. Satisfactory alignment is noted. Pedal pulses are palpable. Capillary refill time is less than three seconds to all digits. Sensations are intact to light touch. Problem focused examination to the right lower extremity: Pedal pulses are palpable. Capillary refill time is less than three seconds to all digits. Sensations are intact to light touch. Second toe sore on right foot with small clear discharge, see below: Wound location: R foot second dorsal PIPJ size: 2.0 cm x 1.0 cm x 0.1 cm = 2 total sq cm Type: Pressure/friction Depth: Ulceration extends Full thickness down to subcutaneous Base: Granular and Fibrotic SOI: No clinical SOI Probe: Ulcer does not probe to bone. Drainage: Small amount of serousdrainage. General foot morphology: decreased me (more content not included)... Normal [facility] CT ANKLE WO IVCON LTon 01-21 CT ANKLE WO IVCON LT * * *Final Report* * * DATE OF EXAM: Jan 21 2025 5:25PM [facility] 0060 - CT ANKLE WO IVCON LT / PROCEDURE REASON: multiple diagnoses * * * * Physician Interpretation * * * * EXAM TITLE: CT ANKLE WO IVCON LT DATE: 01/21/2025 COMPARISON: Radiographs from 01/15/2025, MRI from 11/13/2024 CLINICAL INDICATION/HISTORY: Chronic left ankle pain TECHNIQUE: CT left ankle performed as per routine protocol including sagittal and coronal reconstruction images. CT Radiation dose: Integrated Dose-length product (DLP) for this visit = 233 mGy*cm. CT Dose Reduction Employed: No dose reduction techniques were required FINDINGS: There is no acute bony abnormality. No fracture or stress-related change. Normal talar dome. There is moderate osteoarthritis at the middle subtalar facet with joint space narrowing and marginal osteophytosis. Minimal osteoarthritis at the talonavicular joint. The proximal portion of an orthopedic screw is noted at the second metatarsal. Mild Achilles tendinosis. Very slight fusiform tendon thickening with surrounding fat stranding. There are no masses. Plantar calcaneal enthesopathy with thickening at the origin of the plantar aponeurosis. IMPRESSION: 1. No acute bony abnormality. 2. 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 3. Mild talonavicular joint arthrosis. 4. Mild Achilles tendinosis. Fabric Sourcer: ROSCOE Transcribe Date/Time: Jan 26 2025 9:17A Dictated by : MARIANA REYES MD This examination was interpreted and the report reviewed and electronically signed by: MARIANA REYES MD on Jan 26 2025 9:24AM EST [id number] Normal [facility] CNOVon 01-15-2025 CNOV Office Visit (AGHWW1 ) SHIVANI BONILLA ([id number]) 1950 M Date Time Provider Department 01/15/25 1:45 PM MCKINLEY GUZMAN [id number] During your visit today, we recorded the following information about you: Temperature Weight Height 98.3 degrees 105.7 kg 1.778 m Jean Hadry Tech 01/16/2025 9:44 AM Signed REVIEW OF SYSTEMS: GENERAL: Well developed, well nourished. No acute distress PAIN: Negative for pain, history of chronic pain or current treatment for chronic pain conditions CARDIOVASCULAR: Negative for chest pain, leg swelling and palpations. MSK: Negative for joint swelling SKIN: Negative for lesions, rash, itching, metal sensitivity NEURO: Numbness/tingling of extremties ENDOCRINE: Negative for diabetic associated symptoms HEMATOLOGY: Negative for excessive bleeding, clots, bleeding disorders. Mckinley Guzman DPM 01/16/2025 9:44 AM Signed This 74 year old male presents for concerns of LLE ankle pain. Patient states they are doing well. Rates pain 8/10 today. Admits to having continuous aching, sharp, shooting pain. Pain is well controlled with Gabapentin. Has been weightbearing as tolerated to the left lower extremity in a shoe with use of AFO brace. States the injection last visit did not help at all (1 month ago). States gabapentin is not helping the pain at night. Recently started Actemra with rheum about 2 months ago. Denies any current nausea, vomiting, fever, chills, shortness of breath, chest pain or calf pain. Denies any other pedal complaints PAST MEDICAL HISTORY Diagnosis Date Asthma (HCC) Left foot pain Prostate cancer (HCC) Rheumatoid arthritis Right foot pain Current Outpatient Medications Medication Sig gabapentin (NEURONTIN) 300 mg capsule Take 1 capsule by mouth two times a day for 30 days. ACTEMRA ACTPEN 162 mg/0.9 mL 1 injection Subcutaneous weekly for 28 days DULoxetine (CYMBALTA) 30 mg capsule Take 30 mg by mouth once daily. hydrOXYchloroQUINE (PLAQUENIL) 200 mg tablet linezolid (ZYVOX) 600 mg tablet budesonide/formoterol fumarate (SYMBICORT INHALATION) Inhale as instructed. tiotropium bromide (SPIRIVA RESPIMAT INHALATION) Inhale as instructed. leflunomide (ARAVA) 20 mg tablet Take 20 mg by mouth once daily. Risedronate 150 mg tablet Take 150 mg by mouth once every month. In AM with cup of water on empty stomach. Nothing else by mouth and stay upright for 30 min. Multivitamin capsule Take 1 capsule by mouth once daily. mometasone (NASONEX) 50 mcg/actuation nasal spray Use 2 Sprays in the nose once daily. gabapentin (NEURONTIN) 300 mg capsule Take 2 capsules by mouth daily at bedtime for 90 days. gabapentin (NEURONTIN) 600 mg tablet Take 1 tablet by mouth once daily for 90 days. gabapentin (NEURONTIN) 400 mg capsule Take 1 capsule by mouth daily at bedtime for 90 days. doxycycline hyclate (VIBRAMYCIN) 100 mg capsule Take 100 mg by mouth twice daily. methotrexate sodium 25 mg/mL soln once each week. montelukast (SINGULAIR) 10 mg tablet once daily. folic acid 1 mg tablet once daily. amoxicillin (POLYMOX, AMOXIL) 500 mg capsule once daily. (Patient not taking: Reported on 03/31/2021 ) BD TUBERCULIN SYRINGE 1 mL 25 x 58 syrg GLUCOSAMINE/CHONDROITI N SULF A (GLUCOSAMINE-CHONDROIT IN ORAL) Take by mouth. No current facility-administered medications for this visit. ALLERGIES Allergen Reactions Gluten Shortness of Breath Peanuts Shortness of Breath Yeast, Dried Shortness of Breath Objective: Patient presents weightbearing as tolerated to left leg. Problem focus examination to the left lower extremity: Incision site is well coapted without evidence of dehiscence. Mild erythema and edema surrounding surgical site. No drainage. No lymphadenopathy. No lymphangitis. No surrounding cellulitis. No signs of infection. Second toe sore on right foot with small clear discharge. Patient has no pain to palpation of calf. The calf is soft, supple and nontender without evidence of DVT. Negative Sita's test. Satisfactory alignment is noted. Pedal pulses are palpable. Capillary refill time is less than three seconds to all digits. Sensations are intact to light touch. Wound location: R foot second digit wound Size: 2.0 cm x 1.0 cm x 0.1 cm = 2 total sq cm Type: Decubitus Depth: Ulceration extends Full thickness down to subcutaneous Base: Granular and Fibrotic SOI: No clinical SOI Probe: Ulcer does not probe to bone. Drainage: Small amount of serousdrainage. Condition: Improving General foot morphology: decreased medial longitudinal arch with plantar prominence at midfoot. 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 +4/5 muscle strength Dorsiflexion, Plantarflexion, Inversion, Eversion, no DF strength to LLE, limited PF strength. No palpable dell noted to achilles tendon. Non palpable AT tendon concerning for chronic rup (more content not included)... Normal [facility] XR Ankle - left AP and Later al and obliqueon 01-15-2025 No obvious fracture or dislocation is noted. No acute osseous changes. No osteolytic or osteoblastic lesions appreciated. No soft tissue gas. No discernible mass noted. Joint spaces are well maintained. Bone density appear typical for age of patient. [facility] XR Ankle - left AP and Later al and obliqueOrdered By: Estela Biggs on 01-15-2025 [facility] Work Phone: Radiology Study observation (narrative) Kennethyesica rony [facility] Work Phone: PSA,Total- Diagnosticon 06- PSA, DIAGNOSTIC < 0.02 Normal 0.00-4.00 [facility] Comment on above: Result Comment: This test was performed using the Karol Poptent tPSA method. Measured values of a patient??sample can vary depending on the testing procedure used. PSA values determined on patient samples by different testing procedures cannot be used interchangeably. If there is a change in PSA assays while monitoring therapy, sequential testing should be performed to confirm baseline values. Performed By: #### L [phone] #### [facility] [address] [place], [address] Office Visiton 01-12-2025 Follow-up visit [id number] Shivani Bonilla 1950 M Date Provider Department Center 01/12/2025 [id number] [facility] OR None Family History Problem Relation Age of Onset Heart failure Mother Comments: at fib, age 94, copd COPD Father Comments: age 75, nonsmoker Hypertension Sister Comments: alive age 72 No Known Problems Maternal Grandmother Comments: late 70s Bone cancer Maternal Grandfather Comments: age 60s No Known Problems Paternal Grandmother Comments: in 70s , No Known Problems Paternal Grandfather Comments: GA? Family Status - Relation Status Age at Mother 94 Father 75 Sister Alive Maternal Grandmother Maternal Grandfather Paternal Grandmother Paternal Grandfather Level of Service:04351 CT OFFICE/OUTPATIENT NEW LOW MDM 30 MINUTES Reason for Visit and Comments: New Patient [[id number]] - Left ankle pain since fall 2023 Normal [facility] Progress Noteon 01-12-2025 Progress Note [facility] [address] [facility] [address] Dept: [phone] Dept Shivani Bonilla 1950 [id number] 01/12/2025 HISTORY OF PRESENT ILLNESS: Shivani is a 75 y.o. male here today for evaluation of his left ankle Shivani states the problem has been present for 8 months. He states that he has been receiving treatment with Dr. Guzman for issues related to his left ankle and foot. He is currently in an ankle toe off brace type brace secondary to foot drop which he has had for many years. He has pain in around the ankle. He states that his pain is pretty much constant. He is currently on a disease modifying rheumatoid type drug which he is unsure is helping. He recently started it. He has a custom molded foot orthosis for the left foot. He is in a solid AFO on the right side secondary to previous Charcot foot. Shivani states the problem started gradually with no injuries occurring Shivani has tried or has been treated with the following: AFO for foot drop , injection Review of Systems Surgical Risk Factors: Allergies to Metals or Latex: NO Have you been treated for a blood clot: NO Have you had a history of bleeding disorder: NO Have you had a history of Anesthetic problems: NO Do you have tendency to bruise easily: NO Do you experience prolonged or excessive bleeding from cuts or after surgery: NO General/Constitutional : General: no Cancer: NO Acute/Chronic Infections: NO HEENT/Neck: Problems with theThroat: NO Problems with the Eyes: NO Problems with the Ears: NO Problems with the Nose and Sinuses: NO Endocrine: Problems with Diabetes: NO Problems with Thyroid Disorder: NO Thorax: Problems with the Heart: NO Problems with the Lung: no Cardiovascular: Problems with Circulation: NO Problems with High Blood pressure: NO Gastrointestinal: Problems with Ulcers: NO Problems with the Liver: no Problems with Bowel Habits: NO Genitourinary: Problems with the Genitals: NO Urinary problems: NO Kidney disease or stones: yes to stones x 4 Skin: Any general problems: NO Neurologic: Dizziness, blurred vision, headaches, problems with balance : NO Seizures or Stroke: NO Psychiatric: Emotional or Psychological disorders: NO Depression or Anxiety: no PAST MEDICAL HISTORY: Medical History[1] Allergies[2] PHYSICAL EXAM: Ht 1.778 m (5' 10) Wt 107 kg (235 lb) BMI 33.72 kg/m? This is an age appropriate appearing male who is alert and oriented x 3. The patient appears well nourished. Psychiatric: The patient is able to verbalize normally and seems to have a good understanding of his situation. left lower extremity examination Lymphatic System: Diffuse hindfoot and midfoot swelling Vascular: Dorsalis pedis pulse: 2+ Posterior tibial pulse: 2+ Capillary refill is less than 3 seconds Skin/nails: Normal appearance, warm and dry. There is a healed dorsal forefoot incision in line of the second metatarsal Hair growth present on foot and toes Neurologic: Sensation mildly decreased to light touch throughout the foot and the ankle Musculoskeletal: The calf is nontender to palpation. ROM: Decreased ROM of the foot and ankle Muscle strength testing: Anterior tibialis: 5/5 Posterior tibialis: 5/5 Peroneus brevis: 5/5 Peroneus longus: 5/5 Gastrocsoleus: 5/5 Tenderness: Tender to palpation over the tarsal sinus, the talonavicular joint into a more mild degree at the calcaneocuboid joint. The anterior ankle joint line was nontender. Mild tenderness was noted over the dorsal midfoot. Gait and Station: Shivani is able to ambulate with a antalgic limp Shivani is able to stand unassisted and maintains balance RADIOGRAPHIC INTERPRETATION: 3 weight bearing views of the left ankle and foot were obtained and the following is my interpretation of the findings present of the X-rays: The left ankle shows the ankle mortise and syndesmosis to be anatomically aligned. No signs of ankle arthrosis. No other ankle abnormalities are seen. 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 Mild arthrosis of the calcaneocuboid joint is also seen. There is a screw with what appears to be a partially healed fracture of the second metatarsal. The screw runs from the metatarsal head to the base of the second metatarsal and is intramedullary. 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 Mild arthrosis of the first tarsometatarsal joint is also noted. An increase in longitudinal arch height is noted. Mild calcification at the Achilles tendon insertion site and on the plantar aspect of the calcaneal posterior tuberosity. IMPRESSION: MRI left ankle 1. Hindfoot/midfoot degenerative changes. 2. Low-grade Achilles tendinosis. 3. Plantar fasciitis with low-grade interstitial tear and calcaneal spur. 4. Short segment thickening/ten (more content not included)... Normal [facility] XR ANKLE 3+ VIEWS LEFTon XR ANKLE 3+ VIEWS LEFT 3 weight bearing views of the left ankle and foot were obtained and the following is my interpretation of the findings present of the X-rays: The left ankle shows the ankle mortise and syndesmosis to be anatomically aligned. No signs of ankle arthrosis. No other ankle abnormalities are seen. 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 Mild arthrosis of the calcaneocuboid joint is also seen. There is a screw with what appears to be a partially healed fracture of the second metatarsal. The screw runs from the metatarsal head to the base of the second metatarsal and is intramedullary. 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 Mild arthrosis of the first tarsometatarsal joint is also noted. An increase in longitudinal arch height is noted. Mild calcification at the Achilles tendon insertion site and on the plantar aspect of the calcaneal posterior tuberosity. Normal [facility] XR Ankle - left 3 Viewson 3 weight bearing vie ws of the left ankle and foot were obtained and the following is my interpretation of the findings present of the X-rays: The left ankle shows the ankle mortise and syndesmosis to be anatomically aligned. No signs of ankle arthrosis. No other ankle abnormalities are seen. 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 Mild arthrosis of the calcaneocuboid joint is also seen. There is a screw with what appears to be a partially healed fracture of the second metatarsal. The screw runs from the metatarsal head to the base of the second metatarsal and is intramedullary. 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 Mild arthrosis of the first tarsometatarsal joint is also noted. An increase in longitudinal arch height is noted. Mild calcification at the Achilles tendon insertion site and on the plantar aspect of the calcaneal posterior tuberosity. [facility] Radiology Study observation (narrative) Summa He alth XR FOOT 3+ VIEWS LEFTon 06-0 XR FOOT 3+ VIEWS LEFT 3 weight bearing v iews of the left ankle and foot were obtained and the following is my interpretation of the findings present of the X-rays: The left ankle shows the ankle mortise and syndesmosis to be anatomically aligned. No signs of ankle arthrosis. No other ankle abnormalities are seen. 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 Mild arthrosis of the calcaneocuboid joint is also seen. There is a screw with what appears to be a partially healed fracture of the second metatarsal. The screw runs from the metatarsal head to the base of the second metatarsal and is intramedullary. 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 Mild arthrosis of the first tarsometatarsal joint is also noted. An increase in longitudinal arch height is noted. Mild calcification at the Achilles tendon insertion site and on the plantar aspect of the calcaneal posterior tuberosity. Normal [facility] XR Foot - left 3 Viewson 3 weight bearing vie ws of the left ankle and foot were obtained and the following is my interpretation of the findings present of the X-rays: The left ankle shows the ankle mortise and syndesmosis to be anatomically aligned. No signs of ankle arthrosis. No other ankle abnormalities are seen. 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 Mild arthrosis of the calcaneocuboid joint is also seen. There is a screw with what appears to be a partially healed fracture of the second metatarsal. The screw runs from the metatarsal head to the base of the second metatarsal and is intramedullary. 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 Mild arthrosis of the first tarsometatarsal joint is also noted. An increase in longitudinal arch height is noted. Mild calcification at the Achilles tendon insertion site and on the plantar aspect of the calcaneal posterior tuberosity. [facility] Radiology Study observation (narrative) Sally Powers alth Medium Joint Arthro/Inj: L a nkle jointon 12-21-2024 Mckinley Guzman, CONNOR 01/13/2025 8:57 AM Medium Joint Arthro/Inj: L ankle joint 12/21/2024 10:54 AM The procedure site was prepped in the usual sterile fashion. Site: L ankle joint Medications: 0.5 mL dexAMETHasone sodium phosphate 4 mg/mL; 0.5 mL triamcinolone acetonide 40 mg/mL Anesthetics: 2 mL BUPivacaine (PF) 0.5 % (5 mg/mL) Outcome: tolerated well, no immediate complications Post-injection instructions were reviewed with the patient and the patient voiced understanding of these instructions. Informed Consent Rhodelia Protocol SIGN IN Personnel directly involved with the procedure wore the appropriate PPE. Special Equipment: Yes Patient/Surrogate Stated/Verified: Patient name TIME OUT Relevant labs, photos, and/or imaging studies have been reviewed. Intended patient and procedure match source documents. SIGN OUT All specimens correctly labeled and sent. All instruments, equipment, possible retained foreign bodies accounted for. The post-procedure POC has been communicated to the patient or surrogate. Post-procedure POC communicated to patient's multidisciplinary team (including bedside nurse for hospitalized patients). [facility] CNOVon 12-18-2024 CNOV Office Visit (AGHWW1 ) SHIVANI BONILLA ([id number]) 1950 M Date Time Provider Department 12/18/24 1:45 PM MCKINLEY GUZMAN HWW1 During your visit today, we recorded the following information about you: Respiration Weight Height 20/minute 106.6 kg 1.778 m Mckinley Guzman DPM 01/13/2025 8:57 AM Signed DOS: 08/18/2024 POD: 4 months 2 days Procedure: Second metatarsal ORIF, left foot This 74 year old male presents for a post op visit. Patient states they are doing well. Rates pain 8/10 today. Admits to having continuous aching, sharp, shooting pain. Pain is well controlled with Gabapentin. Has been weightbearing as tolerated to the left lower extremity in a shoe with use of AFO brace.He states he developed a sore on his second toe on right foot last day admits to having a little clear discharge from it. He is requesting refills on Gabapentin today. Denies any current nausea, vomiting, fever, chills, shortness of breath, chest pain or calf pain. Denies any other pedal complaints PAST MEDICAL HISTORY Diagnosis Date Asthma (HCC) Left foot pain Prostate cancer (HCC) Rheumatoid arthritis Right foot pain Current Outpatient Medications Medication Sig ACTEMRA ACTPEN 162 mg/0.9 mL 1 injection Subcutaneous weekly for 28 days gabapentin (NEURONTIN) 300 mg capsule Take 2 capsules by mouth daily at bedtime for 90 days. gabapentin (NEURONTIN) 600 mg tablet Take 1 tablet by mouth once daily for 90 days. gabapentin (NEURONTIN) 400 mg capsule Take 1 capsule by mouth daily at bedtime for 90 days. DULoxetine (CYMBALTA) 30 mg capsule Take 30 mg by mouth once daily. hydrOXYchloroQUINE (PLAQUENIL) 200 mg tablet linezolid (ZYVOX) 600 mg tablet budesonide/formoterol fumarate (SYMBICORT INHALATION) Inhale as instructed. tiotropium bromide (SPIRIVA RESPIMAT INHALATION) Inhale as instructed. leflunomide (ARAVA) 20 mg tablet Take 20 mg by mouth once daily. doxycycline hyclate (VIBRAMYCIN) 100 mg capsule Take 100 mg by mouth twice daily. Risedronate 150 mg tablet Take 150 mg by mouth once every month. In AM with cup of water on empty stomach. Nothing else by mouth and stay upright for 30 min. methotrexate sodium 25 mg/mL soln once each week. montelukast (SINGULAIR) 10 mg tablet once daily. folic acid 1 mg tablet once daily. amoxicillin (POLYMOX, AMOXIL) 500 mg capsule once daily. (Patient not taking: Reported on 03/31/2021 ) BD TUBERCULIN SYRINGE 1 mL 25 x 5/8 syrg Multivitamin capsule Take 1 capsule by mouth once daily. GLUCOSAMINE/CHONDROITI N SULF A (GLUCOSAMINE-CHONDROIT IN ORAL) Take by mouth. mometasone (NASONEX) 50 mcg/actuation nasal spray Use 2 Sprays in the nose once daily. No current facility-administered medications for this visit. ALLERGIES Allergen Reactions Gluten Shortness of Breath Peanuts Shortness of Breath Yeast, Dried Shortness of Breath Objective: Patient presents weightbearing as tolerated to left leg. Problem focus examination to the left lower extremity: Incision site is well coapted without evidence of dehiscence. Mild erythema and edema surrounding surgical site. No drainage. No lymphadenopathy. No lymphangitis. No surrounding cellulitis. No signs of infection. Second toe sore on right foot with small clear discharge. Patient has no pain to palpation of calf. The calf is soft, supple and nontender without evidence of DVT. Negative Sita's test. Satisfactory alignment is noted. Pedal pulses are palpable. Capillary refill time is less than three seconds to all digits. Sensations are intact to light touch. General foot morphology: decreased medial longitudinal arch with plantar prominence at midfoot. 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 +4/5 muscle strength Dorsiflexion, Plantarflexion, Inversion, Eversion, no DF strength to LLE, limited PF strength. No palpable dell noted to achilles tendon. Non palpable AT tendon concerning for chronic rupture. Foot drop noted of LLE. No tenderness to palpation of left achilles tendon at mid substance level. No palpable dells. Negative ignacio test. Tenderness to palpation of left forefoot and midfoot improved since last exam. ROM of the 1st MTPJ is decreased without pain or crepitus. ROM of the MTJ/STJ is decreased without pain or crepitus. Ankle joint ROM is decreased with pain on palpation noted to the left > right. No erythema or edema about the plantar midfoot right. No pain on palpation of left 2nd metatarsal bone. Results MRI ANKLE WO IVCON LEFT (Acc#[id number]) (Order [id number]) Impression IMPRESSION: 1. Hindfoot/midfoot degenerative changes. 2. Low-grade Achilles tendinosis. 3. Plantar fasciitis with low-grade interstitial tear and calcaneal spur. 4. Short segment thickening/tendinosis anterior tibialis tendon. 5. Diffuse soft tissue edema about the an (more content not included)... Normal [facility] CNOVon 11-27-2024 CNOV Office Visit (AGHWW1 ) SHIVANI BONILLA ([id number]) 1950 M Date Time Provider Department 11/27/24 11:15 AM THOMAS MCKINLEY WILLIAMS [id number] During your visit today, we recorded the following information about you: Respiration Weight Height 16/minute 106.6 kg 1.778 m Mckinley Guzman DPM 12/08/2024 10:51 AM Signed DOS: 08/18/2024 POD: 73 days Procedure: second metatarsal ORIF, left foot This 74 year old male presents for a post op visit. Patient states they are doing well. Pain is well controlled. Patient states that his left ankle has been bothering him still and is actually worse. He has been unable to use the knee scooter. States it has been swelling. He is unable to wear the crowboot due to the awkard angle it places his ankle in. Has been in cutsom braces. Which helps a little. Has been weightbearing as tolerated to the left lower extremity. Denies any current nausea, vomiting, fever, chills, shortness of breath, chest pain or calf pain. Denies any other pedal complaints. Also discloated right shoulder two weeks ago and is in a sling. PAST MEDICAL HISTORY Diagnosis Date Asthma (HCC) Left foot pain Prostate cancer (HCC) Rheumatoid arthritis Right foot pain Current Outpatient Medications Medication Sig ACTEMRA ACTPEN 162 mg/0.9 mL 1 injection Subcutaneous weekly for 28 days gabapentin (NEURONTIN) 300 mg capsule Take 2 capsules by mouth daily at bedtime for 90 days. predniSONE (DELTASONE) 10 mg tablet Take 1 tablet by mouth once daily. Take Q8H for 4 days, Take Q12H for 4, Take Q24 for 5 days DULoxetine (CYMBALTA) 30 mg capsule Take 30 mg by mouth once daily. hydrOXYchloroQUINE (PLAQUENIL) 200 mg tablet linezolid (ZYVOX) 600 mg tablet budesonide/formoterol fumarate (SYMBICORT INHALATION) Inhale as instructed. tiotropium bromide (SPIRIVA RESPIMAT INHALATION) Inhale as instructed. leflunomide (ARAVA) 20 mg tablet Take 20 mg by mouth once daily. Risedronate 150 mg tablet Take 150 mg by mouth once every month. In AM with cup of water on empty stomach. Nothing else by mouth and stay upright for 30 min. montelukast (SINGULAIR) 10 mg tablet once daily. folic acid 1 mg tablet once daily. Multivitamin capsule Take 1 capsule by mouth once daily. mometasone (NASONEX) 50 mcg/actuation nasal spray Use 2 Sprays in the nose once daily. gabapentin (NEURONTIN) 600 mg tablet Take 1 tablet by mouth once daily for 90 days. gabapentin (NEURONTIN) 400 mg capsule Take 1 capsule by mouth daily at bedtime for 90 days. doxycycline hyclate (VIBRAMYCIN) 100 mg capsule Take 100 mg by mouth twice daily. methotrexate sodium 25 mg/mL soln once each week. amoxicillin (POLYMOX, AMOXIL) 500 mg capsule once daily. (Patient not taking: Reported on 03/31/2021 ) predniSONE (DELTASONE) 5 mg tablet twice daily. (Patient not taking: Reported on 03/31/2021 ) BD TUBERCULIN SYRINGE 1 mL 25 x 58 syrg GLUCOSAMINE/CHONDROITI N SULF A (GLUCOSAMINE-CHONDROIT IN ORAL) Take by mouth. No current facility-administered medications for this visit. ALLERGIES Allergen Reactions Gluten Shortness of Breath Peanuts Shortness of Breath Yeast, Dried Shortness of Breath Objective: Patient presents weightbearing as tolerated to left leg. Problem focus examination to the left lower extremity: Incision site is well coapted without evidence of dehiscence. Mild erythema and edema surrounding surgical site. No drainage. No lymphadenopathy. No lymphangitis. No surrounding cellulitis. No signs of infection. Patient has no pain to palpation of calf. The calf is soft, supple and nontender without evidence of DVT. Negative Sita's test. Satisfactory alignment is noted. Pedal pulses are palpable. Capillary refill time is less than three seconds to all digits. Sensations are intact to light touch. General foot morphology: decreased medial longitudinal arch with plantar prominence at midfoot. 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 +4/5 muscle strength Dorsiflexion, Plantarflexion, Inversion, Eversion, no DF strength to LLE, limited PF strength. Foot drop noted of LLE. Positive pain noted to palpation along the peroneal tendon course posterior and inferior to the lateral malleolus extending to the insertion at the 5th metatarsal base left foot. There is no pain to palpation to the styloid process of the fifth metatarsal base. Pain is noted on resisted eversion of the foot. Mild pain with resisted plantarflexion of the foot. There is swelling noted along the path of the peroneal tendons. No peroneal subluxation appreciated. No pain is noted with palpation of the sinus tarsi. Pain to lateral ankle gutter left foot. No pain on palpation of left 2nd metatarsal bone. 10/30/24: left ankle radiographs (three views: AP/mortise/lateral; weight-bearing) were performed and examined today. Personal radiographic evalu (more content not included)... Normal [facility] MRI ANKLE WO IVCON LTon 04-0 MRI ANKLE WO IVCON LT * * *Final Report* * * DATE OF EXAM: Nov 13 2024 9:53AM AWM [id number] - MRI ANKLE WO IVCON LT / PROCEDURE REASON: Acute left ankle pain * * * * Physician Interpretation * * * * MRI ANKLE WO IVCON LT HISTORY: Left ankle tendon rupture x 2 yrs ago pain latera; ;eft ankle TECHNIQUE: Multiplanar, multisequence MRI was performed including the following sequences: Sagittal T1 and STIR. Coronal fat sat IW. Axial fat sat PD and IW. Axial oblique PD COMPARISON: Radiographs of the foot and ankle 10/30/2024 and podiatry office note 10/30/2024 RESULT: No acute bony abnormality at the ankle. Mild degenerative changes at the talonavicular, calcaneocuboid, first and second tarsometatarsal joints with small subcortical cystic changes. Susceptibility artifact from ORIF hardware proximal second metatarsal. Low-grade Achilles tendinosis without tear. There is 2.4 cm mild thickening of the plantar aponeurosis at the central cord origin compatible with plantar fasciitis. Small interstitial tear at the tenoperiosteal interface. There is mild surrounding soft tissue edema. Plantar calcaneal spur Sinus Tarsi has normal T1 fat signal and talocalcaneal ligaments have normal thickness. The tibialis posterior, flexor digitorum longus, and flexor hallucis longus tendons have normal morphology and signal. There is no tendinosis or tenosynovial fluid. The peroneus longus and brevis tendon have normal morphology and signal without tendinosis or tenosynovial fluid. Tendons are normally located in the retromalleolar groove, and the peroneal retinaculum is intact. Short segment thickening anterior tibialis tendon at the level of the distal tibia. Intact extensor hallucis longus and extensor digitorum longus tendons. No evidence for extensor tenosynovitis. Medial and lateral ankle ligaments as well as syndesmotic ligament are intact with normal appearance. There is atrophy of the abductor digiti minimi muscle which is most typically secondary to denervation. The unenhanced tarsal tunnel neurovascular structures appear normal. Diffuse subcutaneous soft tissue edema about the distal lower leg and ankle extending into the dorsal forefoot. Partially visualized edema in the midfoot musculature. IMPRESSION: 1. Hindfoot/midfoot degenerative changes. 2. Low-grade Achilles tendinosis. 3. Plantar fasciitis with low-grade interstitial tear and calcaneal spur. 4. Short segment thickening/tendinosis anterior tibialis tendon. 5. Diffuse soft tissue edema about the ankle and dorsal foot. [facility] Transcribe Date/Time: Nov 15 2024 7:52A Dictated by : GREGG ARORA MD This examination was interpreted and the report reviewed and electronically signed by: GREGG ARORA MD on Nov 15 2024 8:00AM EST [id number] Normal [facility] Emergency Department Summary on 11-09-2024 Emergency Department Summary [facility] Medical Records Department [address] [place] [id number] Emergency Department Summary 11/09/24 MR#: [id number] Acct: [id number] Name: SHIVANI BONILLA Rep #: [id number] : 1950 74 From: Walter Valdes PCP: Dr. Ganga Acosta DO Status:REG ER Location: ED HPI History of Present Illness Chief Complaint: Dislocation Informant: patient and spouse/S.O. Narrative Narrative: Right shoulder dislocation. History of reverse shoulder repair August 2023 with revision October [address] Durand. States doing well had a follow-up a week ago. Today 2 PM was reaching back when he felt it pop forward. No direct traumas. Last meal at noon. Took 2 Tylenol's. History of asthma. Reports that the dislocation that led to his revision a year ago. Denies any cardiac history. Denies any complications with anesthesia. Prior similar symptoms: Yes PFSH PFSH Medical History Polyneuropathy Cancer Fatigue Skin cancer Glaucoma Carpal tunnel syndrome Cataracts, bilateral Wears glasses Cancer History of steroid therapy Arthritis Kidney stones Gastric reflux Non-smoker CPAP (continuous positive airway pressure) dependence Sleep apnea Shortness of breath on exertion History of echocardiogram History of stress test Cardiology follow-up encounter Neuropathy KEZIA treated with BiPAP Moderate persistent allergic asthma without complication Asbestos exposure GERD (gastroesophageal reflux disease) BPH (benign prostatic hyperplasia) Osteopenia Osteoarthritis DDD (degenerative disc disease), cervical Gastric ulcer Obesity Rheumatoid arthritis Kidney stones Prostate cancer Home Medications ???Medication ???Instructions ???Recorded ???Last Taken ???Type risedronate 150 mg tablet 150 mg PO QMONTH BONES 11/25/20 History hydroxychloroquine 200 mg tablet 200 mg PO DAILY arthritis 01/05/21 Unknown History (Plaquenil) albuterol sulfate 90 mcg/actuation 2 inh inhalation Q6H PRN ASTHMA #3 10/05/21 Unknown Rx aerosol inhaler ea azelastine 137 mcg (0.1 %) nasal 2 spray intranasal BID breathing 0 12/26/21 Unknown History spray cholecalciferol (vitamin D3) 50 50 mcg PO DAILY supplement 2 Unknown History mcg (2,000 unit) capsule leflunomide 20 mg tablet 20 mg PO DAILY arthritis 05/16/22 Unknown History multivitamin (Multiple Vitamins 1 tab PO DAILY supplement 05/16/22 Unknown History tablet) gabapentin 100 mg capsule 400 mg PO QHS pain 09/18/22 Unknow n History flurbiprofen 100 mg tablet 100 mg PO DAILY PRN pain #90 tabs 12/19/22 Unknown Rx famotidine 20 mg tablet 20 mg PO QDAY 04/02/24 Unknown His tory budesonide-formoterol HFA 160 2 inh inhalation BID breathing #3 04/08/24 Unknown Rx mcg-4.5 mcg/actuation aerosol ea inhaler (Symbicort) amoxicillin 875 mg-potassium 1 tab PO BID #20 tabs 07/16/24 Unk nown Rx clavulanate 125 mg tablet prednisone 10 mg tablet 10 mg PO QDAY #30 tabs 07/16/24 Un known Rx fluticasone propionate 50 2 spray intranasal DAILY #3 ea Unknown Rx mcg/actuation nasal spray,suspension tiotropium bromide 1.25 2 inh inhalation DAILY BREATHING 0 09/26/24 Unknown Rx mcg/actuation mist for inhalation #3 device (Spiriva Respimat) montelukast 10 mg tablet 10 mg PO QPM sinuses #90 tabs 09/14 Unknown Rx Allergy/AdvReac Type Severity Reaction Status Date / Time doxycycline AdvReac Intermediate Hives Verified 11/09/24 15:54 Environmental Allergies: AdvReac Intermediate Other Verified 11/09/24 15:54 Uncoded Family History Mother Heart disease CHF atrial fib Sister Hypertension Surgical History History of shoulder replacement History of cardiac catheterization Hx of colonoscopy Hx of foot surgery History of removal of retained hardware History of tonsillectomy History of rhinoplasty History of total knee arthroplasty H/O prostatectomy History of inguinal hernia repair History of carpal tunnel release History of left heart catheterization (07/23/18) Social History household members: spouse Smoking Status: Never smoker second hand exposure: No alcohol intake: never substance use type: does not use what type of physical activity do you participate in: none drea/mosque: [employer] seatbelt use: always ROS ROS ED Constitutional Constitutional ED: Denies chills, fever(s) or sweats ENT ENT ED: Denies sore throat Cardiovascular Cardiovascular: Denies chest pain, leg edema, palpitations or racing heartbeat Respiratory/Chest Respiratory/Chest: Denies cough, dyspnea or dyspnea on exerti (more content not included)... Normal [facility] Shoulder min 2 Viewson 11-09 Shoulder min 2 Views [facility] Imaging Services [address] [place], [place] [id number] Shoulder min 2 Views MR#: [id number] Acct: [id number] Name: SHIVANI BONILLA Rep #: [id number] : 1950 M 74 From: Ayan Cazares MD PCP: Dr. Ganga Acosta DO Status: PRE ER Study: Shoulder min 2 Views Date of Exam: 11/09/24 Exam# [id number] Ordering Dr: Walter Gallagher DO PROCEDURE: SHOULDER MIN 2 VIEWS 11/09/2024 REASON FOR EXAM: RELOCATION Check following reduction. TECHNIQUE: One (2) views of the right shoulder COMPARISON: Earlier study dated 11/09/2024. FINDINGS: Bones: Right total humeral arthroplasty in good alignment following reduction. Soft tissues: Unremarkable. Other: Cardiac monitoring lead. RAD/Shoulder min 2 Views IMPRESSION: Satisfactory postreduction films of the right total humeral arthroplasty. Reading Location: [facility] CC: Dr. Ganga Acosta DO; Dr. Walter Gallagher DO Fabric Sourcer: Signed Normal [facility] Shoulder min 2 Views [facility] Imaging Services [address] [place] [address] Shoulder min 2 Views MR#: [id number] Acct: [id number] Name: SHIVANI BONILLA Rep #: [id number] : 1950 M 74 From: Ayan Cazares MD PCP: Dr. Ganga Acosta DO Status: PRE ER Study: Shoulder min 2 Views Date of Exam: 11/09/24 Exam# [id number] Ordering Dr: Walter Gallagher DO PROCEDURE: RIGHT SHOULDER, TWO VIEWS 11/09/2024 REASON FOR EXAM: DISLOCATION TECHNIQUE: Two views of the right shoulder. COMPARISON: No relevant prior. FINDINGS: Bones: Right total humeral arthroplasty. No periprosthetic fractures. Joints: Anterior dislocation of the head of the prosthesis. Soft tissues: Swelling. Other: No other significant findings. RAD/Shoulder min 2 Views IMPRESSION: Right total humeral prosthesis. Anterior dislocation of the head of the humeral prosthesis. Reading Location: [facility] CC: Dr. Ganga Acosta DO; Dr. Watler Gallagher DO Fabric Sourcer: Signed Normal [facility] CBC panel Auto (Bld)on 10-30 Erythrocyte distribution width (RBC) [Ratio] 13.3 % 11.5 - 15.0 % [facility] Hematocrit (Bld) [Volume fraction] 44.8 % 39.0 - 51.0 % [facility] Hemoglobin (Bld) [Mass/Vol] 15.1 g/dL 13.0 - 17.0 g/dL [facility] Interpretation and review of laboratory results Abnormal [facility] MCH (RBC) [Entitic mass] 32.4 pg 26. 0 - 34.[address] [facility] MCHC (RBC) [Mass/Vol] 33.7 g/dL 30.5 - 36.0 g/dL [facility] MCV (RBC) [Entitic vol] 96.1 fL 80.0 - 100.[address] [facility] Nucleated RBC (Bld) [#/Vol] NINF [facility] Platelet mean volume (Bld) [Entitic vol] 8.9 fL Low 9.0 - 12.[address] [facility] Platelets (Bld) [#/Vol] 222 10*3/uL [facility] RBC (Bld) [#/Vol] 4.66 10*6/uL 4.20 - 6.0 0 m/uL [facility] WBC (Bld) [#/Vol] 5.6 10*3/uL [facility] Erythrocyte distribution width (RBC) [Ratio] 13.3 % Normal 11.5-15.0 [facility] Comment on above: Order Comment: Speci men Type: BLOOD SPECIMENOrdering Facility: [facility] Address: [address] [place] [address] Performed By: #### 5 [id number] ####[facility] LABORATORYCLIA [id number] [place], [place] [address] [place] Hematocrit (Bld) [Volume fraction] 44.8 % Normal 39.0-51.0 [facility] Comment on above: Order Comment: Speci men Type: BLOOD SPECIMENOrdering Facility: [facility] Address: [address] [place] [address] Performed By: #### 5 8410-2 ####[facility]ORYCLIA [id number] [address] Hemoglobin (Bld) [Mass/Vol] 15.1 g/dL Normal 13.0-17.0 [facility] Comment on above: Order Comment: Speci men Type: BLOOD SPECIMENOrdering Facility: [facility] Address: [address] [place] [address] Performed By: #### 5 8410-2 ####[facility]ATORYCLIA [id number] [address] MCH (RBC) [Entitic mass] 32.4 pg Normal 26.0-34.0 [facility] Comment on above: Order Comment: Speci men Type: BLOOD SPECIMENOrdering Facility: [facility] Address: [address] [place] [address] Performed By: #### 5 8410-2 ####[facility]ATORYCLIA [id number] [address] MCHC (RBC) [Mass/Vol] 33.7 g/dL Normal 30.5-36.0 [facility] Comment on above: Order Comment: Speci men Type: BLOOD SPECIMENOrdering Facility: [facility] Address: [address] [place] [address] Performed By: #### 5 8410-2 ####[facility]ORYCLIA [id number] [address] MCV (RBC) [Entitic vol] 96.1 fL Normal 80.0-100.0 [facility] Comment on above: Order Comment: Speci men Type: BLOOD SPECIMENOrdering Facility: [facility] Address: [address] [place] [address] Performed By: #### 5 8410-2 ####[facility]ORYCLIA [id number] [address] Nucleated RBC (Bld) [#/Vol] 10*3/uL Normal <0.01 [facility] Comment on above: Order Comment: Speci men Type: BLOOD SPECIMENOrdering Facility: [facility] Address: [address] [place] [address] Performed By: #### 5 8410-2 ####[facility]ORYCLIA [id number] [address] [place] Platelet mean volume (Bld) [Entitic vol] 8.9 fL Low 9.0-12.7 [facility] Comment on above: Order Comment: Speci men Type: BLOOD SPECIMENOrdering Facility: [facility] Address: [address] [place] [address] Performed By: #### 5 8410-2 ####[facility]ORYCLIA [id number] [address] [place] Platelets (Bld) [#/Vol] 222 10*3/uL Normal 150-400 [facility] Comment on above: Order Comment: Speci men Type: BLOOD SPECIMENOrdering Facility: [facility] Address: [address] [place] [address] Performed By: #### 5 8410-2 ####[facility]ORYCLIA [id number] [address] [place] RBC (Bld) [#/Vol] 4.66 10*6/uL Normal 4.20-6.00 [facility] Comment on above: Order Comment: Speci men Type: BLOOD SPECIMENOrdering Facility: [facility] Address: [address] [place] [address] Performed By: #### 5 8410-2 ####[facility]ATORYCLIA [id number] [place] [address] [place] WBC (Bld) [#/Vol] 5.60 10*3/uL Normal 3.70-11.00 [facility] Comment on above: Order Comment: Speci men Type: BLOOD SPECIMENOrdering Facility: [facility] Address: [address] [place] [address] Performed By: #### 5 8410-2 ####[facility]ATORYCLIA [id number] [address] [place] CNOVon 10-30-2024 CNOV Office Visit (AGHWW1 ) CESARSHIVANI CAMARILLO ([id number]) 1950 M Date Time Provider Department 10/30/24 11:15 AM MCKINLEY GUZMAN AGHWW1 During your visit today, we recorded the following information about you: Temperature Weight Height 98.3 degrees 106.6 kg 1.778 m Mckinley Guzman DPM 10/31/2024 4:17 PM Signed DOS: 08/18/2024 POD: 73 days Procedure: second metatarsal ORIF, left foot This 74 year old male presents for a post op visit. Patient states they are doing well. Pain is well controlled. Patient states that his left ankle has been bothering him more often and is relentless. Has been weightbearing as tolerated to the left lower extremity. Denies any current nausea, vomiting, fever, chills, shortness of breath, chest pain or calf pain. Denies any other pedal complaints PAST MEDICAL HISTORY Diagnosis Date Asthma Left foot pain Prostate cancer (HCC) Rheumatoid arthritis (HCC) Right foot pain Current Outpatient Medications Medication Sig gabapentin (NEURONTIN) 300 mg capsule Take 2 capsules by mouth daily at bedtime for 90 days. gabapentin (NEURONTIN) 600 mg tablet Take 1 tablet by mouth once daily for 90 days. gabapentin (NEURONTIN) 400 mg capsule Take 1 capsule by mouth daily at bedtime for 90 days. predniSONE (DELTASONE) 10 mg tablet Take 1 tablet by mouth once daily. Take Q8H for 4 days, Take Q12H for 4, Take Q24 for 5 days DULoxetine (CYMBALTA) 30 mg capsule Take 30 mg by mouth once daily. hydrOXYchloroQUINE (PLAQUENIL) 200 mg tablet linezolid (ZYVOX) 600 mg tablet budesonide/formoterol fumarate (SYMBICORT INHALATION) Inhale as instructed. tiotropium bromide (SPIRIVA RESPIMAT INHALATION) Inhale as instructed. leflunomide (ARAVA) 20 mg tablet Take 20 mg by mouth once daily. doxycycline hyclate (VIBRAMYCIN) 100 mg capsule Take 100 mg by mouth twice daily. Risedronate 150 mg tablet Take 150 mg by mouth once every month. In AM with cup of water on empty stomach. Nothing else by mouth and stay upright for 30 min. methotrexate sodium 25 mg/mL soln once each week. montelukast (SINGULAIR) 10 mg tablet once daily. folic acid 1 mg tablet once daily. amoxicillin (POLYMOX, AMOXIL) 500 mg capsule once daily. (Patient not taking: Reported on 03/31/2021 ) predniSONE (DELTASONE) 5 mg tablet twice daily. (Patient not taking: Reported on 03/31/2021 ) BD TUBERCULIN SYRINGE 1 mL 25 x 5/8 syrg Multivitamin capsule Take 1 capsule by mouth once daily. GLUCOSAMINE/CHONDROITI N SULF A (GLUCOSAMINE-CHONDROIT IN ORAL) Take by mouth. mometasone (NASONEX) 50 mcg/actuation nasal spray Use 2 Sprays in the nose once daily. No current facility-administered medications for this visit. ALLERGIES Allergen Reactions Gluten Shortness of Breath Peanuts Shortness of Breath Yeast, Dried Shortness of Breath Objective: Patient presents weightbearing as tolerated to left leg. Problem focus examination to the left lower extremity: Incision site is well coapted without evidence of dehiscence. Mild erythema and edema surrounding surgical site. No drainage. No lymphadenopathy. No lymphangitis. No surrounding cellulitis. No signs of infection. Patient has no pain to palpation of calf. The calf is soft, supple and nontender without evidence of DVT. Negative Sita's test. Satisfactory alignment is noted. Pedal pulses are palpable. Capillary refill time is less than three seconds to all digits. Sensations are intact to light touch. General foot morphology: decreased medial longitudinal arch with plantar prominence at midfoot. 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 +4/5 muscle strength Dorsiflexion, Plantarflexion, Inversion, Eversion, no DF strength to LLE, limited PF strength. No palpable dell noted to achilles tendon. Non palpable AT tendon concerning for chronic rupture. Foot drop noted of LLE. No tenderness to palpation of left achilles tendon at mid substance level. No palpable dells. Negative ignacio test. Tenderness to palpation of left forefoot and midfoot improved since last exam. ROM of the 1st MTPJ is decreased without pain or crepitus. ROM of the MTJ/STJ is decreased without pain or crepitus. Ankle joint ROM is decreased. No erythema or edema about the plantar midfoot right. No pain on palpation of left 2nd metatarsal bone. 10/30/24: left ankle radiographs (three views: AP/mortise/lateral; weight-bearing) were performed and examined today. Personal radiographic evaluation finds no acute fracture or dislocation. Joint spaces are preserved. Bone density appears appropriate for the patient's age. Ankle mortise intact. No gas in the soft tissues. No focal soft tissue swelling. 10/30/24: left foot radiographs (three views: AP/MO/lateral; weight-bearing) were performed and examined today. Personal radiographic evaluation: Status post 2nd metatarsal ORIF. Stable p (more content not included)... Normal [facility] No Panel Informationon 10-30 [facility] URIC ACIDon 10-30-2024 Urate [Mass/Vol] 4.3 mg/dL 4.0 - 8.1 mg/dL [facility] Urate SerPl-mCncon Urate [Mass/Vol] 4.3 mg/dL Normal 4.0-8.1 [facility] Comment on above: Order Comment: Speci men Type: BLOOD SPECIMENOrdering Facility: [facility] Address: [address] [place] [address] Performed By: #### 3 084-1 ####[facility]ATORYCLIA [id number] [place] [address] [place] Urate [Mass/Vol]on Interpretation and review of laboratory results Normal [facility] XR Ankle - left AP and Later al and obliqueon 10-30-2024 No acute fracture or dislocation. Joint spaces are preserved. Bone density appears appropriate for the patient's age. Ankle mortise intact. No gas in the soft tissues. No focal soft tissue swelling. [facility] Radiology Study observation (narrative) [facility] XR Foot - left AP and Latera l and obliqueon 10-30-2024 Status post 2nd metatarsal ORIF. Stable post-operative appearance. Hardware in normal position without evidence of failure or loosening. Position maintained. No acute destructive changes. No gas in the soft tissues. [facility] Radiology Study observation (narrative) Kennethyesica rony [facility] 10-09-2024 [facility] Office Visit (AGHWW1 ) SHIVANI BONILLA ([id number]) 1950 M Date Time Provider Department 10/09/24 10:45 AM MCKINLEY GUZMAN AGHWW1 During your visit today, we recorded the following information about you: Respiration Weight Height 17/minute 104.3 kg 1.778 m Mckinley Guzman DPM 11/09/2024 4:07 PM Signed DOS: 08/18/2024 POD: 52 days Procedure: second metatarsal ORIF, left foot This 74 year old male presents for a post op visit. Patient states they are doing well. Pain is well controlled. Has been weightbearing as tolerated to the left lower extremity in a [place] boot. He states after taking 10 steps he gets extreme pain around his left ankle area. He states when sleeping on his side the bone pushes on the mattress causing pain toward the ankle . He admits on having ankle pain prior to surgery but has gotten worse. Denies any current nausea, vomiting, fever, chills, shortness of breath, chest pain or calf pain. Denies any other pedal complaints PAST MEDICAL HISTORY Diagnosis Date Asthma Left foot pain Prostate cancer (HCC) Rheumatoid arthritis (HCC) Right foot pain Current Outpatient Medications Medication Sig gabapentin (NEURONTIN) 300 mg capsule Take 2 capsules by mouth daily at bedtime for 90 days. gabapentin (NEURONTIN) 600 mg tablet Take 1 tablet by mouth once daily for 90 days. gabapentin (NEURONTIN) 400 mg capsule Take 1 capsule by mouth daily at bedtime for 90 days. predniSONE (DELTASONE) 10 mg tablet Take 1 tablet by mouth once daily. Take Q8H for 4 days, Take Q12H for 4, Take Q24 for 5 days DULoxetine (CYMBALTA) 30 mg capsule Take 30 mg by mouth once daily. hydrOXYchloroQUINE (PLAQUENIL) 200 mg tablet linezolid (ZYVOX) 600 mg tablet budesonide/formoterol fumarate (SYMBICORT INHALATION) Inhale as instructed. tiotropium bromide (SPIRIVA RESPIMAT INHALATION) Inhale as instructed. leflunomide (ARAVA) 20 mg tablet Take 20 mg by mouth once daily. doxycycline hyclate (VIBRAMYCIN) 100 mg capsule Take 100 mg by mouth twice daily. Risedronate 150 mg tablet Take 150 mg by mouth once every month. In AM with cup of water on empty stomach. Nothing else by mouth and stay upright for 30 min. methotrexate sodium 25 mg/mL soln once each week. montelukast (SINGULAIR) 10 mg tablet once daily. folic acid 1 mg tablet once daily. amoxicillin (POLYMOX, AMOXIL) 500 mg capsule once daily. (Patient not taking: Reported on 03/31/2021 ) predniSONE (DELTASONE) 5 mg tablet twice daily. (Patient not taking: Reported on 03/31/2021 ) BD TUBERCULIN SYRINGE 1 mL 25 x 5/8 syrg Multivitamin capsule Take 1 capsule by mouth once daily. GLUCOSAMINE/CHONDROITI N SULF A (GLUCOSAMINE-CHONDROIT IN ORAL) Take by mouth. mometasone (NASONEX) 50 mcg/actuation nasal spray Use 2 Sprays in the nose once daily. No current facility-administered medications for this visit. ALLERGIES Allergen Reactions Gluten Shortness of Breath Peanuts Shortness of Breath Yeast, Dried Shortness of Breath Objective: Patient presents weightbearing as tolerated to left leg in [place] boot. Dressing is dry, clean, and intact with normal strike through noted. Problem focus examination to the left lower extremity: Incision site is well coapted without evidence of dehiscence. Mild erythema and edema surrounding surgical site. No drainage. No lymphadenopathy. No lymphangitis. No surrounding cellulitis. No signs of infection. Patient has no pain to palpation of calf. The calf is soft, supple and nontender without evidence of DVT. Negative Sita's test. Satisfactory alignment is noted. Pedal pulses are palpable. Capillary refill time is less than three seconds to all digits. Sensations are intact to light touch. Radiographs:3 views AP, MO, Lat left Foot and ankle were taken and evaluated. Radiographic evaluation: Hardware intact without breakage or loosening. Triplane position is maintained. No acute destructive changes. No soft tissue gas. No complications seen. No obvious fracture or dislocation is noted. No acute osseous changes. No osteolytic or osteoblastic lesions appreciated. No soft tissue gas. No discernible mass noted. Joint spaces are well maintained with exception of narrowing ankle joint. Bone density appear typical for age of patient. Assessment: Satisfactory post-operative progress Plan: The patient was educated on clinical examination findings, postoperative prognosis and protocol. All questions were answered to patient's apparent satisfaction. - Xray's reviewed with patient. - Discussed giving a cortisone injection in the future or oral steroids. - Patient to continue weightbearing as tolerated to the operative extremity. - Recommends trying to use the AFO brace in place of the [place] boot. Follow up 3 weeks. Scribe Attestation: By signing my name below, I, Zoya Bob MA, attest (more content not included)... Normal [facility] No Panel Informationon 10-09 [facility] XR Ankle - left AP and Later al and obliqueon 10-09-2024 No obvious fracture or dislocation is noted. No acute osseous changes. No osteolytic or osteoblastic lesions appreciated. No soft tissue gas. No discernible mass noted. Joint spaces are well maintained with exception of narrowing ankle joint. Bone density appear typical for age of patient. Fibula is out to length. Tib fib overlap is WNL. [facility] Radiology Study observation (narrative) [facility] XR Foot - left AP and Latera l and obliqueon 10-09-2024 Hardware intact without breakage or loosening. Triplane position is maintained. No acute destructive changes. No soft tissue gas. No complications seen. No obvious fracture or dislocation is noted. No acute osseous changes. No osteolytic or osteoblastic lesions appreciated. No soft tissue gas. No discernible mass noted. [facility] Radiology Study observation (narrative) [facility] CNOVon 09-18-2024 CNOV Office Visit (AGHWW1 ) SHIVANI BONILLA ([id number]) 1950 M Date Time Provider Department 09/18/24 10:15 AM MCKINLEY GUZMAN AGHWW1 During your visit today, we recorded the following information about you: Respiration Weight Height 16/minute 104.3 kg 1.778 m Mckinley Guzman DPM 09/19/2024 4:32 PM Signed DOS: 08/18/24 POD: 31 POV: 3 Procedure: second metatarsal ORIF, left foot This 74 year old male presents for a post op visit. Patient states they are doing well. Pain is well controlled without pain medication. Has been elevating the extremity as instructed preoperatively and has been nonweightbearing to the L lower extremity in [place] with use of knee scooter. Denies any current nausea, vomiting, fever, chills, shortness of breath, chest pain or calf pain. Has been taking Aspirin for DVT prophylaxis. Denies constitutional symptoms. Denies any other pedal complaints PAST MEDICAL HISTORY Diagnosis Date Asthma Left foot pain Prostate cancer (HCC) Rheumatoid arthritis (HCC) Right foot pain Current Outpatient Medications Medication Sig gabapentin (NEURONTIN) 300 mg capsule Take 2 capsules by mouth daily at bedtime for 90 days. gabapentin (NEURONTIN) 600 mg tablet Take 1 tablet by mouth once daily for 90 days. predniSONE (DELTASONE) 10 mg tablet Take 1 tablet by mouth once daily. Take Q8H for 4 days, Take Q12H for 4, Take Q24 for 5 days DULoxetine (CYMBALTA) 30 mg capsule Take 30 mg by mouth once daily. hydrOXYchloroQUINE (PLAQUENIL) 200 mg tablet linezolid (ZYVOX) 600 mg tablet budesonide/formoterol fumarate (SYMBICORT INHALATION) Inhale as instructed. tiotropium bromide (SPIRIVA RESPIMAT INHALATION) Inhale as instructed. leflunomide (ARAVA) 20 mg tablet Take 20 mg by mouth once daily. Risedronate 150 mg tablet Take 150 mg by mouth once every month. In AM with cup of water on empty stomach. Nothing else by mouth and stay upright for 30 min. montelukast (SINGULAIR) 10 mg tablet once daily. folic acid 1 mg tablet once daily. Multivitamin capsule Take 1 capsule by mouth once daily. mometasone (NASONEX) 50 mcg/actuation nasal spray Use 2 Sprays in the nose once daily. gabapentin (NEURONTIN) 400 mg capsule Take 1 capsule by mouth daily at bedtime for 90 days. doxycycline hyclate (VIBRAMYCIN) 100 mg capsule Take 100 mg by mouth twice daily. methotrexate sodium 25 mg/mL soln once each week. amoxicillin (POLYMOX, AMOXIL) 500 mg capsule once daily. (Patient not taking: Reported on 03/31/2021 ) predniSONE (DELTASONE) 5 mg tablet twice daily. (Patient not taking: Reported on 03/31/2021 ) BD TUBERCULIN SYRINGE 1 mL 25 x 58 syrg GLUCOSAMINE/CHONDROITI N SULF A (GLUCOSAMINE-CHONDROIT IN ORAL) Take by mouth. No current facility-administered medications for this visit. ALLERGIES Allergen Reactions Gluten Shortness of Breath Peanuts Shortness of Breath Yeast, Dried Shortness of Breath Objective: Patient presents nonweightbearing to left leg in [place] with knee scooter. Problem focus examination to the left lower extremity: Incision site is well coapted without evidence of dehiscence. No erythema and moderate edema surrounding surgical site. Resolved ecchymoses. No drainage. No lymphadenopathy. No lymphangitis. No surrounding cellulitis. No signs of infection. No pain to palpation of operative site. Mild soreness to anterior ankle from increased rubbing of [place] boot Patient has no pain to palpation of calf. The calf is soft, supple and nontender without evidence of DVT. Negative Sita's test. Satisfactory alignment is noted. Pedal pulses are palpable. Capillary refill time is less than three seconds to all digits. Sensations are intact to light touch. Radiographs: 3 views AP, MO, Lat left Foot were taken and evaluated (09/18/24) Impression: : Hardware intact without breakage or loosening. Triplane position is maintained. No interval displacement of fracture site. Minimal interval bony trabeculation across fracture site compared to prior films. No soft tissue gas. No complications seen. Assessment: Satisfactory post-operative progress Plan: The patient was educated on clinical examination findings, postoperative prognosis and protocol. All questions were answered to patient's apparent satisfaction. - XR obtained and evaluated of left foot - Able to progress WB in [place] to left foot in the house -NWB in [place] with knee scooter when out of the house -RTC [address] DPM PGY3 I personally saw and evaluated the patient. I reviewed the resident's note. I agree with the resident's assessment and plan unless otherwise noted. Mckinley Guzman DPM, FACFAS Referring Provider: SELF [[id number]] Allergies As of Date: 09/18/2024 Noted Allergy Reaction GLUTEN 10/21/2015 12 - Shortness of Breath PEANUTS 10/21/2015 12 - Shortness of Breath YEAST, DRIED 10/11 (more content not included)... Normal [facility] XR Foot - left AP and Latera l and obliqueon 09-18-2024 Hardware intact without breakage or loosening. Triplane position is maintained. No interval displacement of fracture site. Minimal interval bony trabeculation across fracture site compared to prior films. No soft tissue gas. No complications seen. [facility] Radiology Study observation (narrative) [facility] OPERATIVE NOon 09-07-2024 OPERATIVE NO HNO ID: [id number] Author: MCKINLEY GUZMAN DPM Service: Podiatry Author Type: Physician Type: Operative Report Filed: 09/07/2024 13:52 Note Text: [facility] - Operative Report - ASC SHIVANI BONILLA : 1950 AGE: 74. SEX: M PATIENT TYPE: A [facility] [place]: [facility] ATTENDING PHYSICIAN: Mckinley Guzman DPM CSN NUMBER: [id number] DATE OF SURGERY/PROCEDURE: 08/18/2024 INCISION/PROCEDURE START TIME: 2:32 PM INCISION CLOSE/PROCEDURE END TIME: 3:34 PM PREOPERATIVE DIAGNOSIS: Closed displaced 2nd metatarsal fracture, left foot. POSTOPERATIVE DIAGNOSIS: Closed displaced 2nd metatarsal fracture, left foot. SURGEON: Mckinley Guzman DPM KEYING MACHINE OPERATOR: 1st trust operations assistant, Bel Díaz DPM. SURGERY/PROCEDURE: Open reduction internal fixation 2nd metatarsal fracture, left foot. ANESTHESIA: General. ESTIMATED BLOOD LOSS: Less than 25 mL. FLUIDS: Per Anesthesia. SPECIMENS: None. COMPLICATIONS: None. SPECIAL MEDICATIONS: Ancef 2 g IV. CONDITION TO PACU: Stable and extubated. INDICATIONS: This 74-year-old male presents today for surgical management of a closed severely displaced 2nd metatarsal fracture of the left foot. Condition is progressively worsening, recalcitrant to nonoperative care. Patient sustained injury when he dropped something on the top of his left forefoot. In preoperative consultation, I had a lengthy discussion with the patient regarding treatment options and prognosis. All questions were answered to his apparent satisfaction. He opted to proceed with surgical intervention and I explained to him details of procedure as well as medically reasonable risks, benefits, alternatives, prognosis, and potential complications. No guarantees were stated or implied as the outcome of surgery. DESCRIPTION OF PROCEDURE: In preoperative area, the patient was identified and greeted. Left leg was marked as the operative extremity and the operative consent was reviewed, signed, and dated. A preoperative huddle was performed. The patient was brought to the operating room and placed on operative table in supine position. General anesthesia was administered via LMA by the Anesthesia Department. A well-padded left calf tourniquet was applied and all extremities were padded and protected. 2 g of Ancef was infused intravenously. The left foot, ankle, and lower leg were prepped and draped in usual sterile fashion and a preprocedure time-out was performed by all operative room personnel verifying the patient, operative extremity, and surgical procedures. Hemostasis was achieved via elevation, exsanguination, and inflation of the left calf tourniquet to 250 mmHg. Attention was directed to the dorsal aspect of the left forefoot, where a linear incision was made over the 2nd metatarsal extending over the 2nd metatarsophalangeal joint. Sharp dissection was deepened through subcutaneous tissue with care taken to clamp and ligate all bleeders as necessary and retract all peripheral nerves identified. Deep fascial incision was made and the extensor tendons were retracted. A periosteal incision was made over the 2nd metatarsal and a severely displaced 2nd metatarsal fracture was identified. The distal segment of the fracture was significantly angled in a dorsiflexed sagittal plane malalignment position. The 2nd metatarsal fracture was anatomically reduced with the use of reduction forceps and manualdistraction of the 2nd toe. Once the anatomic alignment was achieved, the 2nd metatarsal fracture was temporarily stabilized with K-wire fixation. Intraoperative fluoroscopy confirmed excellent anatomic alignment of the 2nd metatarsal fracture site. At this point, the 2nd metatarsal fracture was then fixated with a 3.5 mm fully-threaded cortical screw that was inserted within the medullary canal of the 2nd metatarsal in a retrograde direction through the 2nd metatarsal head. The screw provided excellent maintenance of reduction and stability at the anatomically reduced 2nd metatarsal fracture site. The wound was flushed with copious amounts of sterile saline. The fracture site was noted to be anatomically reduced based on clinical examination with excellent stability and bone- to-bone apposition. Intraoperative fluoroscopy noted excellent anatomicreduction of the 2nd metatarsal fracture and excellent placement of internal fixation screw construct. The wound was flushed with copious amounts of sterile saline. The left calf tourniquet was deflated and vascular status returned immediately to the left foot and ankle with palpable pedal pulses, immediate capillary refill time to all toes. Meticulous hemostasis was achieved via Bovie cauterization. Deep fascia closure was performed with 3-0 Vicryl, followed by subcutaneous tissue closure with 3-0 Monocryl and the skin was reapproximated with 4-0 nylon. Local anesthesia was performed at the surgical site (more content not included)... Normal [facility] CNOVon 09-04-2024 [facility] Office Visit (AGHWW1 ) SHIVANI BONILLA ([id number]) 1950 M Date Time Provider Department 09/04/24 1:15 PM MCKINLEY GUZMAN AGHWW1 During your visit today, we recorded the following information about you: Respiration Weight Height 17/minute 104.3 kg 1.778 m Mckinley Guzman DPM 09/19/2024 5:15 PM Signed DOS: 08/18/24 POD: 17 POV: 2 Procedure: second metatarsal ORIF, left foot This 74 year old male presents for a post op visit. Patient states they are doing well. Pain is well controlled by Percocet. Has been icing and elevating the extremity as instructed preoperatively and has been nonweightbearing to the L lower extremity. Denies any current nausea, vomiting, fever, chills, shortness of breath, chest pain or calf pain. Has been taking Aspirin for DVT prophylaxis. States his right foot has become more red and swollen over the last week and admits to small wound formation to the tips of his toes. 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 Denies constitutional symptoms. Denies any other pedal complaints PAST MEDICAL HISTORY Diagnosis Date Asthma Left foot pain Prostate cancer (HCC) Rheumatoid arthritis (HCC) Right foot pain Current Outpatient Medications Medication Sig gabapentin (NEURONTIN) 600 mg tablet Take 1 tablet by mouth once daily for 90 days. DULoxetine (CYMBALTA) 30 mg capsule Take 30 mg by mouth once daily. hydrOXYchloroQUINE (PLAQUENIL) 200 mg tablet linezolid (ZYVOX) 600 mg tablet budesonide/formoterol fumarate (SYMBICORT INHALATION) Inhale as instructed. tiotropium bromide (SPIRIVA RESPIMAT INHALATION) Inhale as instructed. leflunomide (ARAVA) 20 mg tablet Take 20 mg by mouth once daily. Risedronate 150 mg tablet Take 150 mg by mouth once every month. In AM with cup of water on empty stomach. Nothing else by mouth and stay upright for 30 min. montelukast (SINGULAIR) 10 mg tablet once daily. folic acid 1 mg tablet once daily. Multivitamin capsule Take 1 capsule by mouth once daily. mometasone (NASONEX) 50 mcg/actuation nasal spray Use 2 Sprays in the nose once daily. gabapentin (NEURONTIN) 400 mg capsule Take 1 capsule by mouth daily at bedtime for 90 days. predniSONE (DELTASONE) 10 mg tablet Take 1 tablet by mouth once daily. Take Q8H for 4 days, Take Q12H for 4, Take Q24 for 5 days doxycycline hyclate (VIBRAMYCIN) 100 mg capsule Take 100 mg by mouth twice daily. methotrexate sodium 25 mg/mL soln once each week. amoxicillin (POLYMOX, AMOXIL) 500 mg capsule once daily. (Patient not taking: Reported on 03/31/2021 ) predniSONE (DELTASONE) 5 mg tablet twice daily. (Patient not taking: Reported on 03/31/2021 ) BD TUBERCULIN SYRINGE 1 mL 25 x 5/8 syrg GLUCOSAMINE/CHONDROITI N SULF A (GLUCOSAMINE-CHONDROIT IN ORAL) Take by mouth. No current facility-administered medications for this visit. ALLERGIES Allergen Reactions Gluten Shortness of Breath Peanuts Shortness of Breath Yeast, Dried Shortness of Breath Objective: Patient presents nonweightbearing to left leg in wheelchair Dressing is dry, clean, and intact with normal strike through noted. Problem focus examination to the left lower extremity: Incision site is well coapted without evidence of dehiscence. Mild erythema and edema surrounding surgical site. +ecchymoses. No drainage. No lymphadenopathy. No lymphangitis. No surrounding cellulitis. No signs of infection. Patient has no pain to palpation of calf. The calf is soft, supple and nontender without evidence of DVT. Negative Sita's test. Satisfactory alignment is noted. Right foot: Increased erythema to hallux and lesser digits. Appears cellulitic. 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 Medially dislocated hallucal distal phalanx without interval displacement since prior visits. No plantar foot wound breakdown. Small superficial wounds to medial hallux and dorsal fourth digit. Mild serous drainage. No lymphangitis. No increase in warmth of rle compared to lle. Pedal pulses are palpable. Capillary refill time is less than three seconds to all digits. Sensations are intact to light touch. Radiographs: 3 views AP, MO, Lat left Foot were taken and evaluated (09/04/24) LEFT FOOT impression: : Hardware intact without breakage or loosening. Triplane position is maintained. No interval displacement of fracture site. Mild interval bony trabeculation across fracture site compared to prior films. No soft tissue gas. No complications seen. RIGHT FOOT impression:No acute fracture or dislocation. 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 Chronic dislocation of fisrt mpj and lateral dislocation of the hallucal distal phalanx on the proximal phalanx without interval (more content not included)... Normal [facility] No Panel Informationon 09-04 [facility] XR Foot - left AP and Latera l and obliqueon 09-04-2024 Hardware intact without breakage or loosening. Triplane position is maintained. No interval displacement of fracture site. Mild interval bony trabeculation across fracture site compared to prior films. No soft tissue gas. No complications seen. [facility] Radiology Study observation (narrative) [facility] XR Foot - right AP and Later al and obliqueon 09-04-2024 No acute fracture or dislocation. 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 Absent distal phalanx of second and third digits. No further osseous breakdown compared to prior films. [facility] (AGHWW1 ) SHIVANI BONILLA ([id number]) 1950 M Date Time Provider Department 08/28/24 2:00 PM MCKINLEY GUZMAN HWW1 During your visit today, we recorded the following information about you: Respiration Weight Height 20/minute 104.3 kg 1.778 m Mckinley Guzman DPM 09/12/2024 7:42 AM Signed DOS: 08/18/24 POD: 10 POV: 1 Procedure: second metatarsal ORIF, left foot This 74 year old male presents for a post op visit. Patient states they are doing well. Pain is well controlled by Percocet. Has been icing and elevating the extremity as instructed preoperatively and has been nonweightbearing to the L lower extremity. Denies any current nausea, vomiting, fever, chills, shortness of breath, chest pain or calf pain. Has been taking Aspirin for DVT prophylaxis. Denies any other pedal complaints PAST MEDICAL HISTORY Diagnosis Date Asthma Left foot pain Prostate cancer (HCC) Rheumatoid arthritis (HCC) Right foot pain Current Outpatient Medications Medication Sig gabapentin (NEURONTIN) 600 mg tablet Take 1 tablet by mouth once daily for 90 days. predniSONE (DELTASONE) 10 mg tablet Take 1 tablet by mouth once daily. Take Q8H for 4 days, Take Q12H for 4, Take Q24 for 5 days DULoxetine (CYMBALTA) 30 mg capsule Take 30 mg by mouth once daily. hydrOXYchloroQUINE (PLAQUENIL) 200 mg tablet linezolid (ZYVOX) 600 mg tablet budesonide/formoterol fumarate (SYMBICORT INHALATION) Inhale as instructed. tiotropium bromide (SPIRIVA RESPIMAT INHALATION) Inhale as instructed. leflunomide (ARAVA) 20 mg tablet Take 20 mg by mouth once daily. Risedronate 150 mg tablet Take 150 mg by mouth once every month. In AM with cup of water on empty stomach. Nothing else by mouth and stay upright for 30 min. montelukast (SINGULAIR) 10 mg tablet once daily. folic acid 1 mg tablet once daily. Multivitamin capsule Take 1 capsule by mouth once daily. mometasone (NASONEX) 50 mcg/actuation nasal spray Use 2 Sprays in the nose once daily. gabapentin (NEURONTIN) 400 mg capsule Take 1 capsule by mouth daily at bedtime for 90 days. doxycycline hyclate (VIBRAMYCIN) 100 mg capsule Take 100 mg by mouth twice daily. methotrexate sodium 25 mg/mL soln once each week. amoxicillin (POLYMOX, AMOXIL) 500 mg capsule once daily. (Patient not taking: Reported on 03/31/2021 ) predniSONE (DELTASONE) 5 mg tablet twice daily. (Patient not taking: Reported on 03/31/2021 ) BD TUBERCULIN SYRINGE 1 mL 25 x 12/18 syrg GLUCOSAMINE/CHONDROITI N SULF A (GLUCOSAMINE-CHONDROIT IN ORAL) Take by mouth. No current facility-administered medications for this visit. ALLERGIES Allergen Reactions Gluten Shortness of Breath Peanuts Shortness of Breath Yeast, Dried Shortness of Breath Objective: Patient presents nonweightbearing to left leg. Dressing is dry, clean, and intact with normal strike through noted. Problem focus examination to the left lower extremity: Incision site is well coapted without evidence of dehiscence. Mild erythema and edema surrounding surgical site. No drainage. No lymphadenopathy. No lymphangitis. No surrounding cellulitis. No signs of infection. Patient has no pain to palpation of calf. The calf is soft, supple and nontender without evidence of DVT. Negative Sita's test. Satisfactory alignment is noted. Pedal pulses are palpable. Capillary refill time is less than three seconds to all digits. Sensations are intact to light touch. Radiographs: 3 views AP, MO, Lat left Foot were taken and evaluated 08/28/24. Radiographic evaluation: Hardware intact without breakage or loosening. Triplane position is maintained. No acute destructive changes. No soft tissue gas. No complications seen. Assessment: Satisfactory post-operative progress Plan: The patient was educated on clinical examination findings, postoperative prognosis and protocol. All questions were answered to patient's apparent satisfaction. - Bandage removed and new dressing applied. - Sutures were left intact - Cast applied in standard technique - New XR obtained and evaluated - Patient to continue nonweightbearing to the operative extremity. Follow up 1 week for suture removal. Ursula Flores DPM PGY-3 I personally saw and evaluated the patient. I reviewed the resident's note. I agree with the resident's assessment and plan unless otherwise noted. Mckinley Guzman DPM, Ursula Austin DPM 08/28/2024 2:17 PM Signed Take one baby aspirin a day Allergies As of Date: 08/28/2024 Noted Allergy Reaction GLUTEN 10/21/2015 12 - Shortness of Breath PEANUTS 10/21/2015 12 - Shortness of Breath YEAST, DRIED 10/21/2015 12 - Shortness of Breath Date Reviewed: 08/28/2024 Reviewed by: Ursula Flores DPM - Fully Assessed Reason for Visit: Post Op [174] Swelling [205] Numbness [75] Primary Visit Diagnosis:Pain in left fo (more content not included)... Normal [facility] XR Foot - left AP and Latera l and obliqueon 08-28-2024 Hardware intact without breakage or loosening. Triplane position is maintained. No acute destructive changes. No soft tissue gas. No complications seen. [facility] Radiology Study observation (narrative) [facility] ANES POSTPROC EVALon 025 ANES POSTPROC EVAL HNO ID: [id number] Author: DONI URENA MD Service: Anesthesiology Author Type: Anesthesiologist Type: Anesthesia Postprocedure Evaluation Filed: 08/18/2024 16:58 Note Text: POST ANESTHESIA EVALUATION NOTE : 1950 Procedure Summary Date: 08/18/24 Room / Location: [place] [address] / [facility] Anesthesia Start: 1418 Anesthesia Stop: 154 Procedure: ORIF METATARSAL 2ND (Left: Foot) Diagnosis: Closed displaced fracture of second metatarsal bone of left foot, initial encounter (Closed displaced fracture of second metatarsal bone of left foot, initial encounter [S92.322A]) Surgeons: Mckinley Guzman DPM Responsible Provider: Doni Urena MD Anesthesia Type: general ASA Status: 2 Anesthesia Type: general Airway Type: LMA Last Vitals Vitals Value Taken Time BP 121/70 08/18/24 1639 Temp 36 ?C (96.8 ?F) 08/18/24 1539 HR SpO2 84 08/18/24 1639 Resp 13 08/18/24 1638 SpO2 93 % 08/18/24 1639 Vitals shown include unfiled device data. Post Anesthesia Patient Status Patient Evaluation: bedside. Anticipated Disposition: phase 2 then home. Neurological Status: aware and responsive. Pulmonary Status: breathing comfortably on room air Airway Control: returned to baseline unsupported. Cardiovascular Status: stable. Pain Management: clinically adequate - multimodal analgesia pain management approach Postoperative Hydration: acceptable. Intraoperative Events: no significant anesthesia events Post Operative Nausea/Vomiting Status: no significant post operative nausea or vomiting Recommendation: continue current plan of care. Anesthesia Observations No Documentation SIGNATURE: Doni Urena MD PATIENT NAME: Shivani Bonilla DATE: August 18, 2024 TIME: 4:58 PM CSN: [id number] Normal [facility] ANES PRE-OPon 08-18-2024 ANES PRE-OP HNO ID: [id number] Author: BRETT MORENO MD Service: Anesthesiology Author Type: Anesthesiologist Type: Anesthesia Preprocedure Evaluation Filed: 08/18/2024 13:08 Note Text: ANESTHESIOLOGY DAY OF SURGERY NOTE : 1950 Procedure Information Date/Time: 08/18/24 1450 Procedure: ORIF METATARSAL 2ND (Left: Foot) Location: [place] [address] / [facility] Surgeons: Mckinley Guzman DPM Estimated body mass index is 33 kg/m? as calculated from the following: Height as of this encounter: 177.8 cm (5' 10). Weight as of this encounter: 104.3 kg (230 lb). Most recent hematocrit and potassium results: No results found for this basename: HCT,HEMATOCRIT,K,POTAS SIUM Relevant Problems No relevant active problems I - PHYSICAL EVALUATION AIRWAY Patient intubated: No. Tracheostomy tube not present Mallampati: II. TM distance: >3 FB. Neck ROM: full ROM without neurological symptoms. Mouth opening: adequate. Short neck: no. Thick neck: no Huggins present: yes DENTAL Dental findings: teeth intact. Additional exam findings: yes. CARDIOVASCULAR Rhythm: regular Rate: normal PULMONARY Breath sounds clear to auscultation. II - ANESTHESIA PLAN ASA Score: 2 Anesthetic Plan: general Airway type: LMA The patient is not a current smoker. NPO Status: adequate Beta Judy Monitoring Plan Monitoring plan: standard ASA. Post Procedure Analgesic Plan Postoperative analgesic plan: multimodal analgesia. Informed Consent Anesthetic risks, benefits, alternatives, personnel and consent discussed: yes. Patient / Responsible Libertarian agrees to proceed: yes Patient / Surrogate agrees to blood products: blood products not planned Vitals Value Taken Time BP 125/86 08/18/24 1249 Pulse 82 08/18/24 1249 Resp 20 08/18/24 1249 Temp 36.5 ?C (97.7 ?F) 08/18/24 1249 SpO2 96 % 08/18/24 1249 Facility-Administered Medications as of 08/18/2024 Medication Dose Route Frequency ceFAZolin iv piggyback 2 g in D5W (iso-osmotic) 100 mL (ANCEF) 2 g INTRAVENOUS ONCE Outpatient Medications as of 08/18/2024 Medication Sig hydrOXYchloroQUINE (PLAQUENIL) 200 mg tablet budesonide/formoterol fumarate (SYMBICORT INHALATION) Inhale as instructed. tiotropium bromide (SPIRIVA RESPIMAT INHALATION) Inhale as instructed. montelukast (SINGULAIR) 10 mg tablet once daily. folic acid 1 mg tablet once daily. Multivitamin capsule Take 1 capsule by mouth once daily. mometasone (NASONEX) 50 mcg/actuation nasal spray Use 2 Sprays in the nose once daily. gabapentin (NEURONTIN) 400 mg capsule Take 1 capsule by mouth daily at bedtime for 90 days. predniSONE (DELTASONE) 10 mg tablet Take 1 tablet by mouth once daily. Take Q8H for 4 days, Take Q12H for 4, Take Q24 for 5 days (Patient not taking: Reported on 07/08/2024) DULoxetine (CYMBALTA) 30 mg capsule Take 30 mg by mouth once daily. linezolid (ZYVOX) 600 mg tablet leflunomide (ARAVA) 20 mg tablet Take 20 mg by mouth once daily. doxycycline hyclate (VIBRAMYCIN) 100 mg capsule Take 100 mg by mouth twice daily. Risedronate 150 mg tablet Take 150 mg by mouth once every month. In AM with cup of water on empty stomach. Nothing else by mouth and stay upright for 30 min. methotrexate sodium 25 mg/mL soln once each week. amoxicillin (POLYMOX, AMOXIL) 500 mg capsule once daily. (Patient not taking: Reported on 03/31/2021 ) predniSONE (DELTASONE) 5 mg tablet twice daily. (Patient not taking: Reported on 03/31/2021 ) BD TUBERCULIN SYRINGE 1 mL 25 x 12/18 syrg GLUCOSAMINE/CHONDROITI N SULF A (GLUCOSAMINE-CHONDROIT IN ORAL) Take by mouth. I have interviewed and examined the patient. I have reviewed the medical record and/or the pre-anesthesia evaluation, pertinent labs, and test results. This contains updated information obtained within 48 hours of Surgery/Procedure. SIGNATURE: Brett Moreno MD PATIENT NAME: Shivani Bonilla DATE: August 18, 2024 TIME: 12:58 PM CSN: [id number] Normal [facility] NURSING PROGon 08-18-2024 NURSING PROG HNO ID: [id number] Author: JENNIFER TAMAYO RN Service: ? Author Type: Registered Nurse Type: Nursing Progress Note Filed: 08/18/2024 16:56 Note Text: Patient dressed with assistance. Discharge instructions reviewed with patient and patients Julissa. Both agree with plan and verbalize understanding. Normal [facility] NURSING PROG HNO ID: [id number] Author: CHAD CRUZ APRN.CNP Service: General Surgery Author Type: Nurse Practitioner Type: Nursing Progress Note Filed: 08/18/2024 12:36 Note Text: Summary: PAT HANDP done 08/11/[address] [facility] XR FOOT 2V AP/LAT LTon 08-18 XR FOOT 2V AP/LAT LT * * *Final Report* * * DATE OF EXAM: Aug 18 2024 3:19PM AWX [id number] - XR FOOT 2V AP/LAT LT / PROCEDURE REASON: surgery * * * * Physician Interpretation * * * * EXAMINATION: XR FOOT 2V AP/LAT LT HISTORY: surgery TECHNIQUE: XR FOOT 2V AP/LAT LT single intraoperative fluoroscopic image of the left foot COMPARISON: 08/07/2024 RESULT: See impression IMPRESSION: Single intraoperative fluoroscopic image demonstrating ORIF of the left second metatarsal Please see operative report for full details of the procedure. Total fluoroscopic time: 131 seconds Cumulative dose: 2.9725 mGy [facility] Transcribe Date/Time: Aug 19 2024 7:26A Dictated by : RON BAKER MD This examination was interpreted and the report reviewed and electronically signed by: RON BAKER MD on Aug 19 2024 7:27AM EST [id number] [facility] CNPEstrella 08-14-2024 YARYN Telephone (AGPOB1) SHIVANI BONILLA ([id number]) 1950 M Date Time Provider Department 08/14/24 MCKINLEY GUZMAN During your visit today, we recorded the following information about you: Carlos [employer] Concepcion Amaro 08/14/2024 1:20 PM Signed Spoke with patient and confirmed surgery for 08/18/24 at 250pm arriving at 1250pm NPO midnight Patient notified to bring knee walker day of surgery also to complete the questions on mychart Consent in [facility] Concepcion Marcum [employer] Allergies As of Date: 08/14/2024 Noted Allergy Reaction GLUTEN 10/21/2015 12 - Shortness of Breath PEANUTS 10/21/2015 12 - Shortness of Breath YEAST, DRIED 10/21/2015 12 - Shortness of Breath Date Reviewed: 07/24/2024 Reviewed by: Mckinley Guzman DPM - Fully Assessed Reason for Visit: Preparations For Surgery [898] Prescriptions as of 08/14/2024 - gabapentin (NEURONTIN) 600 mg tablet Take 1 tablet by mouth once daily for 90 days. - gabapentin (NEURONTIN) 400 mg capsule Take 1 capsule by mouth daily at bedtime for 90 days. - predniSONE (DELTASONE) 10 mg tablet Take 1 tablet by mouth once daily. Take Q8H for 4 days, Take Q12H for 4, Take Q24 for 5 days - DULoxetine (CYMBALTA) 30 mg capsule Take 30 mg by mouth once daily. - hydrOXYchloroQUINE (PLAQUENIL) 200 mg tablet - linezolid (ZYVOX) 600 mg tablet - budesonide/formoterol fumarate (SYMBICORT INHALATION) Inhale as instructed. - tiotropium bromide (SPIRIVA RESPIMAT INHALATION) Inhale as instructed. - leflunomide (ARAVA) 20 mg tablet Take 20 mg by mouth once daily. - doxycycline hyclate (VIBRAMYCIN) 100 mg capsule Take 100 mg by mouth twice daily. - Risedronate 150 mg tablet Take 150 mg by mouth once every month. In AM with cup of water on empty stomach. Nothing else by mouth and stay upright for 30 min. - methotrexate sodium 25 mg/mL soln once each week. - montelukast (SINGULAIR) 10 mg tablet once daily. - folic acid 1 mg tablet once daily. - amoxicillin (POLYMOX, AMOXIL) 500 mg capsule once daily. - predniSONE (DELTASONE) 5 mg tablet twice daily. - BD TUBERCULIN SYRINGE 1 mL 25 x 5/8 syrg - Multivitamin capsule Take 1 capsule by mouth once daily. - GLUCOSAMINE/CHONDROITI N SULF A (GLUCOSAMINE-CHONDROIT IN ORAL) Take by mouth. - mometasone (NASONEX) 50 mcg/actuation nasal spray Use 2 Sprays in the nose once daily. Problem List As Of Date 08/14/2024 Noted Resolved Incisional hernia, without obstruction or gangr*11/11/2015 Encounter Status:Closed by CARLOS TRAY PACKER CONCEPCION AMARO on 08/14/24 [facility] Office Visiton 08-11-2024 Follow-up visit [id number] Shivani Bonilla Jamari 1950 M Date Provider Department Center 08/11/2024 [id number] ACOSTA [facility] Family History Problem Relation Age of Onset Heart failure Mother Comments: at fib, age 94, copd COPD Father Comments: age 75, nonsmoker Hypertension Sister Comments: alive age 72 No Known Problems Maternal Grandmother Comments: late 70s Bone cancer Maternal Grandfather Comments: age 60s No Known Problems Paternal Grandmother Comments: in 70s , No Known Problems Paternal Grandfather Comments: GA? Family Status - Relation Status Age at Mother 94 Father 75 Sister Alive Maternal Grandmother Maternal Grandfather Paternal Grandmother Paternal Grandfather Level of Service:47097 CT OFFICE/OUTPATIENT ESTABLISHED LOW MDM 20 MIN Reason for Visit and Comments: Other [0] - Surgical clearance Left foot second toe surgery on 08/18/23 Progress Noteon 08-11-2024 Progress Note [facility] - [address] [facility] [id number] Visit type: Established Patient Reason for Visit: Other (Surgical clearance /Left foot second toe surgery on 08/18/23) Assessment / Plan: Shivani was seen today for other. Diagnoses and all orders for this visit: Charcot joint of right foot (Primary) Allergic rhinitis, unspecified seasonality, unspecified trigger Extrinsic asthma, unspecified asthma severity, unspecified whether complicated, unspecified whether persistent Comments: Stable on Symbicort, Spiriva, Singulair and albuterol History of systemic steroid therapy History of prostate cancer Preoperative clearance Rheumatoid arthritis involving wrist with positive rheumatoid factor, unspecified laterality (HCC) Comments: Stable on Ansaid and Plaquenil and Arava Subjective: Patient ID: Shivani Bonilla is a 74 y.o. male. HPI patient with history of severe rheumatoid arthritis presents for preop clearance for a upcoming right foot surgery diagnosed as a Charcot joint. Overall feeling well. No constitutional symptoms. Recent pulmonary consultation noted. His severe asthma and allergies have been well-controlled.. Of note he states he will be getting preoperative lab and EKG at the [facility]. Review of Systems no history of anesthesia reaction. No recent earache sore throat or cough. Was on antibiotic and steroids a few months ago. Recent pulmonary consultation noted. Denies exertional chest pain jaw pain or dyspnea. No PND orthopnea or claudication. No change in pedal edema. No heartburn or abdominal pain. Bowels are regular. No melena or blood. Recent PSA exam stable for surveillance for his prostate cancer. Allergies Allergen Reactions Doxycycline Other reaction(s): Hives Current Outpatient Medications on File Prior to Visit Medication Sig Dispense Refill albuterol 108 (90 Base) MCG/ACT inhaler CRANBERRY PO Take by mouth. flurbiprofen (Ansaid) 100 MG tablet Take 1 tablet by mouth daily. gabapentin (Neurontin) 400 MG capsule Take 400 mg by mouth Nightly. ipratropium (Atrovent) 0.06 % nasal spray Administer 2 sprays into each nostril 3 times daily for 7 days. 15 mL 0 latanoprost (Xalatan) 0.005 % ophthalmic solution place 1 drop into both eyes once daily leflunomide (Arava) 20 MG tablet montelukast (Singulair) 10 MG tablet Multiple Vitamin tablet Take 1 tablet by mouth daily. Spiriva Respimat 1.25 MCG/ACT inhaler Symbicort 160-4.5 MCG/ACT inhaler [DISCONTINUED] hydroxychloroquine (Plaquenil) 200 MG tablet Take 200 mg by mouth daily. (Patient not taking: Reported on 08/11/2024) No current facility-administered medications on file prior to visit. Patient Active Problem List Diagnosis Personal history of colonic polyps BPH (benign prostatic hyperplasia) History of gastric ulcer Allergic asthma Allergic rhinitis Rheumatoid arthritis involving wrist with positive rheumatoid factor (CMS/HCC) (HCC) Lumbar spine scoliosis DDD (degenerative disc disease), cervical Osteoarthritis of both knees History of renal stone Osteopenia History of systemic steroid therapy Degenerative arthritis of thoracic spine History of prostate cancer Scaphoid fracture Hypercholesterolemia with hypertriglyceridemia Wrist fracture, closed, right, with routine healing, subsequent encounter Reflux esophagitis Viral URI Social History Tobacco Use Smoking status: Never Passive exposure: Never Smokeless tobacco: Never Substance Use Topics Alcohol use: No Alcohol/week: 0.0 standard drinks of alcohol Past Surgical History: Procedure Laterality Date CARDIAC CATHETERIZATION 07/2018 neg per Sadaf CARPAL TUNNEL RELEASE Bilateral x2 COLONOSCOPY 2015 Sylvia- small polyps COLONOSCOPY W/ POLYPECTOMY 02/2020 Dr. Eugene- due 2022 HERNIA REPAIR Right 2014 [place] INCISIONAL HERNIA REPAIR Right 2016 Sarmad- mesh replacement LITHOTRIPSY 1993 PROSTATECTOMY 2012 robotic REVERSE TOTAL SHOULDER ARTHROPLASTY 08/2023 Manju REVERSE TOTAL SHOULDER ARTHROPLASTY Right 10/2023 Dr. Durand- repeated due to disloc REVISION TOTAL KNEE ARTHROPLASTY (HISTORICAL) Left 07/2016 Dr. Durand RHINOPLASTY 2004 TOE AMPUTATION Right 11/2019 rt 2nd toe per Dr. Rubi TOE AMPUTATION Right 2019 3rd toe amputation TONSILLECTOMY (HISTORICAL) TOTAL KNEE ARTHROPLASTY Right 2014 [place] TOTAL KNEE ARTHROPLASTY Left 2004 [place] UPPER GASTROINTESTINAL ENDOSCOPY 07/2016 sylvia Family History Problem Relation Name Age of Onset Heart failure Mother Amita at [facility], age 94, copd COPD Father Ariel age 75, nonsmoker Hypertension Sister Claudia alive age 72 No Known Problems Maternal Grandmother late 70s Bone cancer Maternal Grandfather age 60s No Known Problems Paternal Grandmother in 70s , No Known Problems Paternal Grandfather [place]? Object (more content not included)... Normal [facility] XR Foot - left AP and Latera l and obliqueon 08-10-2024 Radiology Study observation (narrative) [facility] 36on 08-08-2024 36 The patient is now scheduled on 08/11 at 2:30 PM. Normal [facility] 36 L/M for patient to b e scheduled on Sunday08/11/24 in one of the same day slots also L/M with Juliana at Orthopedics letting her know I'm trying to get him scheduled. Normal [facility] CNCOon 08-08-2024 CNCO Letter Text Normal [facility] 36on 08-07-2024 36 Name of Caller: Juliana Contact Reason for Appointment: Juliana is requesting to schedule a surgical clearance with Dr Acosta prior to 08/18/24. Dr Acosta has no available dates prior to surgery. Juliana is requesting a returned call with date/time, and if it would be with another provider. Please advise Office Name: [facility] Medication Refills need, if any: n/a Medication Name: n/a CNOVon 08-07-2024 CN Office Visit (AGHWW1 ) SHIVANI BONILLA ([id number]) 1950 M Date Time Provider Department 08/07/24 1:30 PM MCKINLEY GUZMAN AGHWW1 During your visit today, we recorded the following information about you: Temperature Weight Height 98.3 degrees 104.3 kg 1.778 m Jean Hardy Tech 08/26/2024 4:57 PM Signed REVIEW OF SYSTEMS: GENERAL: Well developed, well nourished. No acute distress PAIN: Negative for pain, history of chronic pain or current treatment for chronic pain conditions CARDIOVASCULAR: Negative for chest pain, leg swelling and palpations. MSK: Negative for joint swelling SKIN: Negative for lesions, rash, itching, metal sensitivity NEURO: Numbness/tingling of extremties ENDOCRINE: Negative for diabetic associated symptoms HEMATOLOGY: Negative for excessive bleeding, clots, bleeding disorders. Mckinley Guzman DPM 08/26/2024 4:57 PM Signed Chief Complaint: Follow-up left foot second metatarsal fracture HPI: This 74 year old male with PMH indicated below presents following up on left foot charcot with 2nd metatarsal fracture. Patient states since last visit he has been ambulating to [place] boots to bilateral feet. He states he does not have any pain at this time when he is ambulating in the [place] boots. He states he does not take steps out of the [place] boot. He states that when he is out he uses a knee scooter to the left lower extremity. He denies any new open calluses or lesions to the area. He denies any other new pedal complaints today. Previous history: December 2016- medial column arthrodesis by Dr. 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 DULoxetine (CYMBALTA) 30 mg capsule Take 30 mg by mouth once daily. hydrOXYchloroQUINE (PLAQUENIL) 200 mg tablet linezolid (ZYVOX) 600 mg tablet budesonide/formoterol fumarate (SYMBICORT INHALATION) Inhale as instructed. tiotropium bromide (SPIRIVA RESPIMAT INHALATION) Inhale as instructed. leflunomide (ARAVA) 20 mg tablet Take 20 mg by mouth once daily. doxycycline hyclate (VIBRAMYCIN) 100 mg capsule Take 100 mg by mouth twice daily. Risedronate 150 mg tablet Take 150 mg by mouth once every month. In AM with cup of water on empty stomach. Nothing else by mouth and stay upright for 30 min. folic acid 1 mg tablet once daily. BD TUBERCULIN SYRINGE 1 mL 25 x 5/8 syrg Multivitamin capsule Take 1 capsule by mouth once daily. GLUCOSAMINE/CHONDROITI N SULF A (GLUCOSAMINE-CHONDROIT IN ORAL) Take by mouth. predniSONE (DELTASONE) 10 mg tablet Take 1 tablet by mouth once daily. Take Q8H for 4 days, Take Q12H for 4, Take Q24 for 5 days (Patient not taking: Reported on 07/08/2024) methotrexate sodium 25 mg/mL soln once each week. montelukast (SINGULAIR) 10 mg tablet once daily. amoxicillin (POLYMOX, AMOXIL) 500 mg capsule once daily. (Patient not taking: Reported on 03/31/2021 ) predniSONE (DELTASONE) 5 mg tablet twice daily. (Patient not taking: Reported on 03/31/2021 ) mometasone (NASONEX) 50 mcg/actuation nasal spray Use 2 Sprays in the nose once daily. No current facility-administered medications for this visit. : ALLERGIES Allergen Reactions Gluten Shortness of Breath Peanuts Shortness of Breath Yeast, Dried Shortness of Breath : PAST SURGICAL HISTORY Procedure Laterality Date ARTHRP KNE CONDYLEANDPLATU MEDIALANDLAT COMPARTMENTS Left 08/13/2004 ARTHRP KNE CONDYLEANDPLATU MEDIALANDLAT COMPARTMENTS Right 08/13/2014 CARPAL TUNNEL 82,83 x2 each wrist COLONOSCOPY 08/13/2009 FOOT SURGERY HX Right 07/2020 FOOT SURGERY HX Right 11/29/2020 INGUINAL HERNIA REPAIR HX Right 09/13/2014 LX REPAIR RECURRENT VENTRAL HERNIA 11/08/2015 Laparoscopic repair of recurrent ventral hernia PAST SURGICAL HISTORY OF 01/11/1993 kidney stone removal PAST SURGICAL HISTORY OF 08/13/1997 cardiac catherization PAST SURGICAL HISTORY OF Left 08/13/2005 knee revision PAST SURGICAL HISTORY OF 11/24/2022 Kidney stone removal REMOVAL OF PROSTATE 02/10/2013 SHOULDER SURGERY HX Right 08/21/2023 TONSILLECTOMY HX 08/13/1977 FAMILY HISTORY Problem Relation Age of Onset other (negative [Other]) Unknown : Social History Tobacco Use Smoking status: Never Smokeless tobacco: Never Vaping Use Vaping status: Never Used Substance Use Topics Alcohol use: No Drug use: No REVIEW OF SYSTEMS see tech note MSK: + as noted in HPI. Physical Exam: Patient is alert (more content not included)... Normal [facility] XR Foot - left AP and Latera l and obliqueon 08-07-2024 On sagittal view the re is gross angulation dorsally of the metatarsal head and neck relative to the rest of the shaft. This is angulated approximately 19 degrees dorsally. There is no interval trabeculation noted within this fracture site on AP, MO, lateral views. No other fractures or dislocations are noted at this time. [facility] Pulmonary Visit Reporton Pulmonary Visit Report [facility] [place] [address] [place] [address] OFFICE VISIT Date of Service: 07/16/24 MR#: [id number] Acct: [id number] Name: SHIVANI BONILLA Rep #: [id number] : 1950 Provider: FERCHO Johnson Age/Sex: 74/M Location: [facility].PM[facility] Status: Signed Assessment and Plan Assessment and Plan (1) Moderate persistent allergic asthma without complication: Status: Chronic Plan: Deteriorated. I believe the patient is experiencing exacerbation of his asthma, likely related to either bacterial respiratory infection or viral respiratory infection. NIOX procedure performed in the office today, results are elevated. This indicates that the patient would benefit from a systemic corticosteroid. Placing him on 10-day course of Augmentin and a 12-day taper of prednisone. The patient is to contact the office next week with an update on how he is feeling. Keep previously scheduled routine follow-up. No additional testing at this time. Orders: Orders NIOX Today J45.40 - Moderate persistent asthma, uncomplicated Medications: New amoxicillin-pot clavulanate 875-125 mg 1 TAB PO BID 20 tabs 0RF J45.40 - Moderate persistent asthma, uncomplicated prednisone take 4 tabs for three days, then 3 tabs for three days, then 2 tabs for three days, then 1 tab for 3 days 10 mg PO QDAY 30 tabs 0RF J45.40 - Moderate persistent asthma, uncomplicated HPI Shortness of breath Chief Complaint: Cough HPI Comments Details: This patient presents to the office today for an acute visit regarding shortness of breath and cough. He is ambulatory, currently on room air and accompanied today by his . He contacted the office on July 15, 2024 reporting that he had been diagnosed with bronchitis by his primary care doctor 1 month ago. He reports that he continues to experience a cough and is not able to expectorate sputum. He completed the amoxicillin as prescribed. He denies any chest tightness. The patient reports that in late April he came down with the fair crud. He tried to treat symptoms with [id number] medications at home. Unfortunately, did not get better. Was seen by his primary care doctor on approximately May 14. He was prescribed what he reports as antibiotics that he had to take several times daily and had decreasing doses of. It is unclear to me if he is describing antibiotics and a prednisone taper. The patient cannot remember the name of the medications that he was prescribed. He was also prescribed a nasty tasting cough medicine that they believe had codeine in it. He is compliant with Symbicort 2 puffs twice daily. He does report rinsing his mouth out after each use. He denies any medication side effect such as sore throat or thrush. He continues compliance with Spiriva, Singulair, Flonase and azelastine. He does have increased shortness of breath. He has a daily cough that is productive of milky colored sputum. He denies any hemoptysis. He has wheezing but denies any chest tightness, chest pain or palpitations. He is not experience any fevers. He denies body aches or chills. Intake Vital Signs 04/02/24 09:00 07/16/24 08:58 Height 5 ft 10 in 5 ft 10 in Weight: 226 lb 230 lb BMI 32.4 33.0 BP 123/79 H 120/79 Blood Pressure Location Lt brachial Lt brachial Position Sitting Sitting Respiration 20 H Pulse 58 L 76 Pulse Source Monitor Monitor Temp 96.9 F L 95.9 F L Temperature Source Temporal Artery Temporal Artery Pulse Oximetry (%) 95 98 Oxygen Delivery Method room air room air Intake Visit Reasons: Shortness of breath [employer] Commissioner Required: No DME Vendor: [employer] Accompanied by: Is patient in pain?: No Allergies doxycycline Adverse Reaction (Intermediate, Verified 07/16/24 13:54) Hives Environmental Allergies: Uncoded Adverse Reaction (Intermediate, Verified 07/16/24 13:54) Other Medications ???Medication ???Instructions ???Recorded ???Confirmed ???Type risedronate 150 mg tablet 150 mg PO QMONTH BONES 11/25/20 07/16/24 History hydroxychloroquine 200 mg tablet 200 mg PO DAILY arthritis 01/05/21 07/16/24 History (Plaquenil) albuterol sulfate 90 mcg/actuation 2 inh inhalation Q6H PRN ASTHMA #3 10/05/21 07/16/24 Rx aerosol inhaler ea azelastine 137 mcg (0.1 %) nasal 2 spray intranasal BID breathing 12/26/21 07/16/24 History spray cholecalciferol (vitamin D3) 50 50 mcg PO DAILY supplement 12/27/21 07/16/24 History mcg (2,000 unit) capsule leflunomide 20 mg tablet 20 mg PO DAILY arthritis 05/16/22 07/16/24 History multivitamin (Multiple Vitamins 1 tab PO DAILY supplement 05/16/22 07/16/24 History tablet) gabapentin 100 mg capsule 400 mg PO QHS pain 09/18/22 07/16/24 History flurbiprofen 100 mg tablet 100 mg PO D (more content not included)... Normal [facility] CNOVon 07-08-2024 CNOV Office Visit (AGHWG1 ) SHIVANI BONILLA ([id number]) 1950 M Date Time Provider Department 07/08/24 10:45 AM MCKINLEY GUZMAN [id number] During your visit today, we recorded the following information about you: Respiration Weight Height 19/minute 97.5 kg 1.778 m Mckinley Guzman DPM 07/24/2024 4:33 PM Signed Chief Complaint: left foot charcot follow up Interval HPI: admits to improvement of left foot pain and swelling since last visit. He just got his new [place] boot and has been breaking it in as instructed. Denies any signs of pressure injury. Has been using the knee scooter. HPI: This 74 year old male with PMH indicated below presents following up on left foot charcot with 2nd metatarsal fracture. Denies any changes in shoegear or brace. Is concerned that something is going on with the left foot since this occurred out of the blue. Right foot wound remains healed. Patient has been wearing his AFO on right foot. Still endorses left lower extremity drop foot. Denies any open wounds or lesions. Denies constitional symptoms. He denies any other new pedal complaints today. Previous history: December 2016- medial column arthrodesis by Dr. 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 DULoxetine (CYMBALTA) 30 mg capsule Take 30 mg by mouth once daily. hydrOXYchloroQUINE (PLAQUENIL) 200 mg tablet linezolid (ZYVOX) 600 mg tablet budesonide/formoterol fumarate (SYMBICORT INHALATION) Inhale as instructed. tiotropium bromide (SPIRIVA RESPIMAT INHALATION) Inhale as instructed. leflunomide (ARAVA) 20 mg tablet Take 20 mg by mouth once daily. Risedronate 150 mg tablet Take 150 mg by mouth once every month. In AM with cup of water on empty stomach. Nothing else by mouth and stay upright for 30 min. montelukast (SINGULAIR) 10 mg tablet once daily. folic acid 1 mg tablet once daily. Multivitamin capsule Take 1 capsule by mouth once daily. mometasone (NASONEX) 50 mcg/actuation nasal spray Use 2 Sprays in the nose once daily. predniSONE (DELTASONE) 10 mg tablet Take 1 tablet by mouth once daily. Take Q8H for 4 days, Take Q12H for 4, Take Q24 for 5 days (Patient not taking: Reported on 07/08/2024) doxycycline hyclate (VIBRAMYCIN) 100 mg capsule Take 100 mg by mouth twice daily. methotrexate sodium 25 mg/mL soln once each week. amoxicillin (POLYMOX, AMOXIL) 500 mg capsule once daily. (Patient not taking: Reported on 03/31/2021 ) predniSONE (DELTASONE) 5 mg tablet twice daily. (Patient not taking: Reported on 03/31/2021 ) BD TUBERCULIN SYRINGE 1 mL 25 x 12/18 syrg GLUCOSAMINE/CHONDROITI N SULF A (GLUCOSAMINE-CHONDROIT IN ORAL) Take by mouth. No current facility-administered medications for this visit. : ALLERGIES Allergen Reactions Gluten Shortness of Breath Peanuts Shortness of Breath Yeast, Dried Shortness of Breath : PAST SURGICAL HISTORY Procedure Laterality Date ARTHRP KNE CONDYLEANDPLATU MEDIALANDLAT COMPARTMENTS Left 08/13/2004 ARTHRP KNE CONDYLEANDPLATU MEDIALANDLAT COMPARTMENTS Right 08/13/2014 CARPAL TUNNEL 82,83 x2 each wrist COLONOSCOPY 08/13/2009 FOOT SURGERY HX Right 07/2020 FOOT SURGERY HX Right 11/29/2020 INGUINAL HERNIA REPAIR HX Right 09/13/2014 LX REPAIR RECURRENT VENTRAL HERNIA 11/08/2015 Laparoscopic repair of recurrent ventral hernia PAST SURGICAL HISTORY OF 01/11/1993 kidney stone removal PAST SURGICAL HISTORY OF 08/13/1997 cardiac catherization PAST SURGICAL HISTORY OF Left 08/13/2005 knee revision PAST SURGICAL HISTORY OF 11/24/2022 Kidney stone removal REMOVAL OF PROSTATE 02/10/2013 SHOULDER SURGERY HX Right 08/21/2023 TONSILLECTOMY HX 08/13/1977 FAMILY HISTORY Problem Relation Age of Onset other (negative [Other]) Unknown : Social History Tobacco Use Smoking status: Never Smokeless tobacco: Never Vaping Use Vaping status: Never Used Substance Use Topics Alcohol use: No Drug use: No REVIEW OF SYSTEMS see tech note MSK: + as noted in HPI. Physical Exam: Patient is alert and oriented x 3 in NAD. Patient is a 74 year old male who appears well developed, well nourished and with good attention to hygiene and body habitus. Resp 19 Ht 177.8 cm (5' 10) Wt 97.5 kg (215 lb) BMI 30.85 kg/m? Vascular: DP and PT pulses are palpable. CFT less than 3 seconds to all digits. Skin temperature is warm to warm from proximal to distal and comparable b/l. No increa (more content not included)... Normal [facility] XR Foot - left AP and Latera l and obliqueon 06-26-2024 Radiology Study observation (narrative) [facility] CNOVon 06-24-2024 CNOV Office Visit (AGHWG1 ) SHIVANI BONILLA ([id number]) 1950 M Date Time Provider Department 06/24/24 8:00 AM [facility] During your visit today, we recorded the following information about you: Respiration Weight Height 18/minute 97.5 kg 1.778 m Mckinley Guzman DPM 07/05/2024 10:02 AM Signed Chief Complaint: left foot pain HPI: This 74 year old male with PMH indicated below presents for new left foot pain. States that this past Sunday, he was working in his garden and noticed he felt like he bruised the outside of his left foot. Patient was wearing his AFO as instructed. Pain is rated a 5/10 and described as an ache. States its painful to place weight on that outside of his left foot. The next morning, he noticed the redness and swelling to the top and outside of the left foot.Denies any changes in shoegear or brace. Is concerned that something is going on with the left foot since this occurred out of the blue. Right foot wound remains healed. Patient has been wearing his AFO. Getting new AFO for his left foot this afternoon. Still endorses left lower extremity drop foot. Denies any open wounds or lesions. Denies constitional symptoms. He denies any other new pedal complaints today. Previous history: December 2016- medial column arthrodesis by Dr. 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 predniSONE (DELTASONE) 10 mg tablet Take 1 tablet by mouth once daily. Take Q8H for 4 days, Take Q12H for 4, Take Q24 for 5 days DULoxetine (CYMBALTA) 30 mg capsule Take 30 mg by mouth once daily. hydrOXYchloroQUINE (PLAQUENIL) 200 mg tablet linezolid (ZYVOX) 600 mg tablet budesonide/formoterol fumarate (SYMBICORT INHALATION) Inhale as instructed. tiotropium bromide (SPIRIVA RESPIMAT INHALATION) Inhale as instructed. leflunomide (ARAVA) 20 mg tablet Take 20 mg by mouth once daily. doxycycline hyclate (VIBRAMYCIN) 100 mg capsule Take 100 mg by mouth twice daily. Risedronate 150 mg tablet Take 150 mg by mouth once every month. In AM with cup of water on empty stomach. Nothing else by mouth and stay upright for 30 min. methotrexate sodium 25 mg/mL soln once each week. montelukast (SINGULAIR) 10 mg tablet once daily. folic acid 1 mg tablet once daily. amoxicillin (POLYMOX, AMOXIL) 500 mg capsule once daily. (Patient not taking: Reported on 03/31/2021 ) predniSONE (DELTASONE) 5 mg tablet twice daily. (Patient not taking: Reported on 03/31/2021 ) BD TUBERCULIN SYRINGE 1 mL 25 x 58 syrg Multivitamin capsule Take 1 capsule by mouth once daily. GLUCOSAMINE/CHONDROITI N SULF A (GLUCOSAMINE-CHONDROIT IN ORAL) Take by mouth. mometasone (NASONEX) 50 mcg/actuation nasal spray Use 2 Sprays in the nose once daily. No current facility-administered medications for this visit. : ALLERGIES Allergen Reactions Gluten Shortness of Breath Peanuts Shortness of Breath Yeast, Dried Shortness of Breath : PAST SURGICAL HISTORY Procedure Laterality Date ARTHRP KNE CONDYLEANDPLATU MEDIALANDLAT COMPARTMENTS Left 08/13/2004 ARTHRP KNE CONDYLEANDPLATU MEDIALANDLAT COMPARTMENTS Right 08/13/2014 CARPAL TUNNEL 82,83 x2 each wrist COLONOSCOPY 08/13/2009 FOOT SURGERY HX Right 07/2020 FOOT SURGERY HX Right 11/29/2020 INGUINAL HERNIA REPAIR HX Right 09/13/2014 LX REPAIR RECURRENT VENTRAL HERNIA 11/08/2015 Laparoscopic repair of recurrent ventral hernia PAST SURGICAL HISTORY OF 01/11/1993 kidney stone removal PAST SURGICAL HISTORY OF 08/13/1997 cardiac catherization PAST SURGICAL HISTORY OF Left 08/13/2005 knee revision PAST SURGICAL HISTORY OF 11/24/2022 Kidney stone removal REMOVAL OF PROSTATE 02/10/2013 SHOULDER SURGERY HX Right 08/21/2023 TONSILLECTOMY HX 08/13/1977 FAMILY HISTORY Problem Relation Age of Onset other (negative [Other]) Unknown : Social History Tobacco Use Smoking status: Never Smokeless tobacco: Never Substance Use Topics Alcohol use: No Drug use: No REVIEW OF SYSTEMS see tech note MSK: + as noted in HPI. Physical Exam: Patient is alert and oriented x 3 in NAD. Patient is a 74 year old male who appears well developed, well nourished and with good attention to hygiene and body habitus. There were no vitals taken for this visit. Vascular: DP and PT pulses are palpable. CFT less than 3 seconds to all digits. Skin temperature is warm to warm from proximal to distal. No increa (more content not included)... Normal [facility] XR Foot - left AP and Latera l and obliqueon 06-24-2024 minimally displaced transverse fracture of second metatarsal neck. Joint spaces maintained. Possible increase in the joint space between in 5th metatarsal cuboid articulation, concern for possible start of a charcot event. Increased calcaneal inclination angle and decreased talar declination angle. No bony cysts or tumors. + plantar and posterior superior calcaneal enthesophyte formation. No bony cysts or tumors [facility] CNPNon 06-23-2024 CNPN Telephone (AGPOB1) SHIVANI BONILLA ([id number]) 1950 M Date Time Provider Department 06/23/24 [facility] During your visit today, we recorded the following information about you: Denisa Hernandez 06/23/2024 8:35 AM Signed ----- Message from Francine Amezcua sent at 06/23/2024 8:18 AM EST ----- Regarding: Ortho/Dr Guzman/Swelling and pain of left lupillo/ Contact: Subject Line Format: Orthopedics / [Provider Name or Open AND Body Part] / [Issue] Patient has been identified by name and Date of (Y/N): Y Patient: Shivani L Janiya Date of : 1950 Previous Provider Seen: Dr Guzman Body Part(s) Identified: Left foot Diagnosis/Reason For Visit: Pain and swelling Reason for the call/escalation: Patient would like seen tristian If reason for call/escalation is discharge from ED/ER or Hospital, which facility was the patient seen at: N Was an appointment scheduled (Y/N): N Person calling if other than patient: PT Return call to if other than patient: PT Best contact number: [phone] Thank you, Francine Fayp June 23, 2024 8:19 AM Denisa Hernandez 06/23/2024 8:36 AM Signed I called the patient to schedule an appointment with Dr. Guzman. I left a voice mail with our office number to call back. Denisa Bang 06/23/2024 11:33 AM Signed I spoke with the patient and scheduled an appointment. Denisa Hernandez Allergies As of Date: 06/23/2024 Noted Allergy Reaction GLUTEN 10/21/2015 12 - Shortness of Breath PEANUTS 10/21/2015 12 - Shortness of Breath YEAST, DRIED 10/21/2015 12 - Shortness of Breath Date Reviewed: 06/11/2024 Reviewed by: Mckinley Guzman DPM - Fully Assessed Prescriptions as of 06/23/2024 - gabapentin (NEURONTIN) 400 mg capsule Take 1 capsule by mouth daily at bedtime for 90 days. - predniSONE (DELTASONE) 10 mg tablet Take 1 tablet by mouth once daily. Take Q8H for 4 days, Take Q12H for 4, Take Q24 for 5 days - DULoxetine (CYMBALTA) 30 mg capsule Take 30 mg by mouth once daily. - hydrOXYchloroQUINE (PLAQUENIL) 200 mg tablet - linezolid (ZYVOX) 600 mg tablet - budesonide/formoterol fumarate (SYMBICORT INHALATION) Inhale as instructed. - tiotropium bromide (SPIRIVA RESPIMAT INHALATION) Inhale as instructed. - leflunomide (ARAVA) 20 mg tablet Take 20 mg by mouth once daily. - doxycycline hyclate (VIBRAMYCIN) 100 mg capsule Take 100 mg by mouth twice daily. - Risedronate 150 mg tablet Take 150 mg by mouth once every month. In AM with cup of water on empty stomach. Nothing else by mouth and stay upright for 30 min. - methotrexate sodium 25 mg/mL soln once each week. - montelukast (SINGULAIR) 10 mg tablet once daily. - folic acid 1 mg tablet once daily. - amoxicillin (POLYMOX, AMOXIL) 500 mg capsule once daily. - predniSONE (DELTASONE) 5 mg tablet twice daily. - BD TUBERCULIN SYRINGE 1 mL 25 x 5/8 syrg - Multivitamin capsule Take 1 capsule by mouth once daily. - GLUCOSAMINE/CHONDROITI N SULF A (GLUCOSAMINE-CHONDROIT IN ORAL) Take by mouth. - mometasone (NASONEX) 50 mcg/actuation nasal spray Use 2 Sprays in the nose once daily. Problem List As Of Date 06/23/2024 Noted Resolved Incisional hernia, without obstruction or gangr*11/11/2015 Encounter Status:Closed by DENISA HERNANDEZ on 06/23/24 [facility] CNOVon 06-05-2024 CN Office Visit (AGHWW1 ) SHIVANI BONILLA ([id number]) 1950 M Date Time Provider Department 06/05/24 11:15 AM MCKINLEY GUZMAN [facility] During your visit today, we recorded the following information about you: Respiration Weight Height 16/minute 97.5 kg 1.778 m Mckinley Guzman DPM 06/11/2024 2:10 PM Signed Chief Complaint: LLE Achilles follow up a HPI: This 74 year old male with PMH indicated below presents for follow up of achilles tendonitis. Right foot wound remains healed. Patient has been wearing AFO. His AFO was modified since last visit and patient has no complaints regarding the brace. Still endorses left lower extremity drop foot. Denies any open wounds or lesions. Denies constitional symptoms. He denies any other new pedal complaints today. Previous history: December 2016- medial column arthrodesis by Dr. 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 predniSONE (DELTASONE) 10 mg tablet Take 1 tablet by mouth once daily. Take Q8H for 4 days, Take Q12H for 4, Take Q24 for 5 days DULoxetine (CYMBALTA) 30 mg capsule Take 30 mg by mouth once daily. hydrOXYchloroQUINE (PLAQUENIL) 200 mg tablet linezolid (ZYVOX) 600 mg tablet budesonide/formoterol fumarate (SYMBICORT INHALATION) Inhale as instructed. tiotropium bromide (SPIRIVA RESPIMAT INHALATION) Inhale as instructed. leflunomide (ARAVA) 20 mg tablet Take 20 mg by mouth once daily. doxycycline hyclate (VIBRAMYCIN) 100 mg capsule Take 100 mg by mouth twice daily. Risedronate 150 mg tablet Take 150 mg by mouth once every month. In AM with cup of water on empty stomach. Nothing else by mouth and stay upright for 30 min. methotrexate sodium 25 mg/mL soln once each week. montelukast (SINGULAIR) 10 mg tablet once daily. folic acid 1 mg tablet once daily. amoxicillin (POLYMOX, AMOXIL) 500 mg capsule once daily. (Patient not taking: Reported on 03/31/2021 ) predniSONE (DELTASONE) 5 mg tablet twice daily. (Patient not taking: Reported on 03/31/2021 ) BD TUBERCULIN SYRINGE 1 mL 25 x 5/8 syrg Multivitamin capsule Take 1 capsule by mouth once daily. GLUCOSAMINE/CHONDROITI N SULF A (GLUCOSAMINE-CHONDROIT IN ORAL) Take by mouth. mometasone (NASONEX) 50 mcg/actuation nasal spray Use 2 Sprays in the nose once daily. No current facility-administered medications for this visit. : ALLERGIES Allergen Reactions Gluten Shortness of Breath Peanuts Shortness of Breath Yeast, Dried Shortness of Breath : PAST SURGICAL HISTORY Procedure Laterality Date ARTHRP KNE CONDYLEANDPLATU MEDIALANDLAT COMPARTMENTS Left 08/13/2004 ARTHRP KNE CONDYLEANDPLATU MEDIALANDLAT COMPARTMENTS Right 08/13/2014 CARPAL TUNNEL 82,83 x2 each wrist COLONOSCOPY 08/13/2009 FOOT SURGERY HX Right 07/2020 FOOT SURGERY HX Right 11/29/2020 INGUINAL HERNIA REPAIR HX Right 09/13/2014 LX REPAIR RECURRENT VENTRAL HERNIA 11/08/2015 Laparoscopic repair of recurrent ventral hernia PAST SURGICAL HISTORY OF 01/11/1993 kidney stone removal PAST SURGICAL HISTORY OF 08/13/1997 cardiac catherization PAST SURGICAL HISTORY OF Left 08/13/2005 knee revision PAST SURGICAL HISTORY OF 11/24/2022 Kidney stone removal REMOVAL OF PROSTATE 02/10/2013 SHOULDER SURGERY HX Right 08/21/2023 TONSILLECTOMY HX 08/13/1977 FAMILY HISTORY Problem Relation Age of Onset other (negative [Other]) Unknown : Social History Tobacco Use Smoking status: Never Smokeless tobacco: Never Substance Use Topics Alcohol use: No Drug use: No REVIEW OF SYSTEMS see tech note MSK: + as noted in HPI. Physical Exam: Patient is alert and oriented x 3 in NAD. Patient is a 74 year old male who appears well developed, well nourished and with good attention to hygiene and body habitus. Resp 16 Ht 177.8 cm (5' 10) Wt 97.5 kg (215 lb) BMI 30.85 kg/m? Vascular: DP and PT pulses are palpable. CFT less than 3 seconds to all digits. Skin temperature is warm to warm from proximal to distal. No increase in warmth to the right foot. Hair growth is absent. No varicosities noted. Neuro: Light touch intact. Protective sensation diminished at all pedal sites via Nicholson Dany 5.07 monofilament. Foot drop; L Derm: Skin texture and turgor within normal limits. Webspaces 1-4 clean, dry, intact b/l. There is no ulcerations noted,.No surrounding erythema, no purulence, no evidence of infection. No significant hyperkeratotic tis (more content not included)... Normal [facility] Office Visiton 05-13-2024 Follow-up visit [id number] Shivani Bonilla 1950 M Date Provider Department Center 05/13/2024 [id number] MILIAN [facility] Family History Problem Relation Age of Onset Heart failure Mother Comments: at fib, age 94, copd COPD Father Comments: age 75, nonsmoker Hypertension Sister Comments: alive age 72 No Known Problems Maternal Grandmother Comments: late 70s Bone cancer Maternal Grandfather Comments: age 60s No Known Problems Paternal Grandmother Comments: in 70s , No Known Problems Paternal Grandfather Comments: GA? Family Status - Relation Status Age at Mother 94 Father 75 Sister Alive Maternal Grandmother Maternal Grandfather Paternal Grandmother Paternal Grandfather Level of Service:33872 CT OFFICE/OUTPATIENT ESTABLISHED LOW MDM 20 MIN Reason for Visit and Comments: Sinus Problem [99] - For about 2 weeks, coughing lots Flu Vaccine [189] - Patient has declined to receive influenza vaccine in the office. Normal [facility] Progress Noteon 05-13-2024 Progress Note [facility] - [address] [facility] [address] Dept: [phone] Dept Loc: [phone] Visit type: Established Patient Reason for Visit: Sinus Problem (For about 2 weeks, coughing lots) and Flu Vaccine (Patient has declined to receive influenza vaccine in the office. /) Assessment and Plan 1. Bronchitis Comments: Acute onset x 2 weeks with progression and worsening of symptoms. Orders: - XR chest 2 views - amoxicillin-clavulanat e (Augmentin) 875-125 MG tablet; Take 1 tablet by mouth 2 times daily for 10 days., Starting Sun05/13/2024, Until Sun05/23/2024, Normal - brompheniramine-pseudo ephedrine-DM 30-2-10 MG/5ML syrup; Take 5 mL by mouth as needed for allergies for up to 10 days., Starting Sun05/13/2024, Until Sun05/23/2024 at 2359, Normal Patient presents with 2 weeks worth of symptoms beginning progressive worse with increasing cough congestion some rales noted in the bases of his lungs bilaterally. He is mildly diaphoretic we will request a baseline chest x-ray but will start antibiotics and treated as presumptive bronchitis possible clinical pneumonia. Encourage plenty of rest fluids with close follow-up. Follow up in about 2 weeks (around 05/27/2024). Subjective HPI this is a 74-year-old male with an underlying history of BPH, rheumatoid arthritis, degenerative disc disease, hyperlipidemia and GERD who contacted the call center yesterday for next day acute same-day appointment for concerns of sinus symptoms going on for the last 2 weeks. Patient reports runny nose with clear discharge nasal congestion and a cough that keeps him up all night. Started out on with ongoing cough, feeling hot and sweaty, no doc fever, started as yellow nasal mucous. Did covid test last week was negative. Patient states that the symptoms started shortly after the local fair. states that one of them usually gets sick sometime around the fair. This year she was fine no one else was sick. He reported increasing cough congestion initially started as a more of a sinus infection with sinus drainage and discharge and congestion is now migrated into his chest. Review of Systems Constitutional: Negative for chills and fever. HENT: Positive for congestion and postnasal drip. Negative for sinus pressure, sore throat and trouble swallowing. Respiratory: Positive for cough and shortness of breath. Cardiovascular: Negative for chest pain. Gastrointestinal: Negative for diarrhea, nausea and vomiting. Musculoskeletal: Negative for myalgias. All other systems reviewed and are negative. Allergies Allergen Reactions Doxycycline Other reaction(s): Hives Outpatient Medications Prior to Visit Medication Sig Dispense Refill albuterol 108 (90 Base) MCG/ACT inhaler CRANBERRY PO Take by mouth. flurbiprofen (Ansaid) 100 MG tablet Take 1 tablet by mouth daily. gabapentin (Neurontin) 400 MG capsule Take 400 mg by mouth Nightly. ipratropium (Atrovent) 0.06 % nasal spray Administer 2 sprays into each nostril 3 times daily for 7 days. 15 mL 0 latanoprost (Xalatan) 0.005 % ophthalmic solution place 1 drop into both eyes once daily leflunomide (Arava) 20 MG tablet montelukast (Singulair) 10 MG tablet Multiple Vitamin tablet Take 1 tablet by mouth daily. Spiriva Respimat 1.25 MCG/ACT inhaler Symbicort 160-4.5 MCG/ACT inhaler No facility-administered medications prior to visit. Past Medical History: Diagnosis Date Allergic rhinitis past immunotherpy per Dr. Cao Asthma Berenice Simpson Colon cancer screening 02/2020 Valorie Canales- due 2022 DDD (degenerative disc disease), cervical 2012 Degenerative arthritis of thoracic spine Foot fracture, right 12/2016 History of gastric ulcer 2009 EGD History of left heart catheterization 07/[address] Talavera History of prostate cancer 2012 Dr. Katlin Ng Urology prostatectomy- PSA 09/04 History of renal stone 1992 rec 10/05 cysto Hypercholesterolemia with hypertriglyceridemia 03/2019 attempting diet control Lumbar spine scoliosis Osteoarthritis of both knees 2004 bilat TKR- 2014, per Dr. Amado Osteomyelitis ([facility]) 10/2019 s/p Rt 2nd toe per Dr. Rubi Osteopenia Personal history of colonic polyps 02/2020 Dr. 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 Normal [facility] XR Chest 2 Viewson 4 Mild bibasilar atelectasis. Report Dictated on Electronically Signed By: Iram Ochoa DR Electronically Signed Date/Time: 05/13/2024 4:35 PM EDT [facility] Patient Name: SHIVANI REYNOLDS : 1950 Exam Date/Time: 05/13/2024 15:15 Procedure: XR CHEST 2 VIEWS Ordering Provider: MILIAN JAMES Reason For Exam: cough and congestion Clinical History: cough and congestion Comparison: 07/02/2018 Technique: PA and lateral radiographs were obtained of the chest. Findings: The heart size and mediastinal contours are normal. Pulmonary vascularity is normal and there is no pneumothorax. Strandy bibasilar opacities, right greater than left. No displaced rib fractures seen.Partially visualized right reverse total shoulder arthroplasty. [facility] Iram Ochoa MD - 05/13/2024 Patient Name: SHIVANI BONILLA : 1950 Exam Date/Time: 05/13/2024 15:15 Procedure: XR CHEST 2 VIEWS Ordering Provider: MILIAN JAMES Reason For Exam: cough and congestion Clinical History: cough and congestion Comparison: 07/02/2018 Technique: PA and lateral radiographs were obtained of the chest. Findings: The heart size and mediastinal contours are normal. Pulmonary vascularity is normal and there is no pneumothorax. Strandy bibasilar opacities, right greater than left. No displaced rib fractures seen.Partially visualized right reverse total shoulder arthroplasty. IMPRESSION: Mild bibasilar atelectasis. Report Dictated on Electronically Signed By: Iram Ochoa DR Electronically Signed Date/Time: 05/13/2024 4:35 PM EDT [facility] Radiology Study observation (narrative) [facility] alth XR Chest 2 ViewsOrdered By: Iram Ochoa on 05-13-20[address] [facility] [address] Work Phone: [phone] 05-12-2024 36 S: Patient spoke wit h [facility] nurse regarding sinus symptoms. B: Onset of symptoms started about two weeks ago. A: Patient reports runny nose with clear discharge, nasal congestion, a cough that keeps him up at night, He has an increased shortness of breath and is using his rescue inhaler. He also reports sinus pressure and pain under bilateral eyes. Denies chest pain, fever, sore throat, earache. Mucinex Cold and Sinus did not help. Patient was COVID negative last week. R: Insurance was verified. Appointment was scheduled for 05/13/24 with Iram Milian PA-C. Instructed patient to jonas insurance card and ID and wear a mask to the office. Advised increase fluids, humidifier or vaporizer for the cough. Patient understands care advice. No further needs at this time. Patient instructed to call back with new or worsening symptoms. Reason for Disposition Sinus congestion (pressure, fullness) present > 10 days Protocols used: Common [id number] Normal [facility] CNOVon 05-01-2024 CNOV Office Visit (AGHWW1 ) SHIVANI BONILLA ([id number]) 1950 M Date Time Provider Department 05/01/24 1:15 PM MCKINLEY GUZMAN A[facility]WW1 During your visit today, we recorded the following information about you: Temperature Weight Height 98.3 degrees 97.5 kg 1.778 m Jean Hardy Tech 05/19/2024 2:02 PM Signed REVIEW OF SYSTEMS: GENERAL: Well developed, well nourished. No acute distress PAIN: Negative for pain, history of chronic pain or current treatment for chronic pain conditions CARDIOVASCULAR: Negative for chest pain, leg swelling and palpations. MSK: Negative for joint swelling SKIN: Negative for lesions, rash, itching, metal sensitivity NEURO: Numbness/tingling of extremties ENDOCRINE: Negative for diabetic associated symptoms HEMATOLOGY: Negative for excessive bleeding, clots, bleeding disorders. Mckinley Guzman DPM 05/19/2024 2:02 PM Signed Chief Complaint: LLE achilles follow up a HPI: This 74 year old male with PMH indicated below presents for follow up of achilles tendonitis. Pain to left achilles is 50% improved after the medrol dose pack given at last visit. Right foot wound remains healed. Patient has been wearing AFO. In the process of getting an AFO for the right foot, however previous prescription only said right foot so he was unable to get his left AFO. Still endorses left lower extremity drop foot. Denies any open wounds or lesions. Denies constitional symptoms. He denies any other new pedal complaints today. Previous history: December 2016- medial column arthrodesis by Dr. 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 Take Q8H for 4 days, Take Q12H for 4, Take Q24 for 5 days gabapentin (NEURONTIN) 400 mg capsule Take 1 capsule by mouth daily at bedtime for 180 days. DULoxetine (CYMBALTA) 30 mg capsule Take 30 mg by mouth once daily. hydrOXYchloroQUINE (PLAQUENIL) 200 mg tablet linezolid (ZYVOX) 600 mg tablet budesonide/formoterol fumarate (SYMBICORT INHALATION) Inhale as instructed. tiotropium bromide (SPIRIVA RESPIMAT INHALATION) Inhale as instructed. leflunomide (ARAVA) 20 mg tablet Take 20 mg by mouth once daily. doxycycline hyclate (VIBRAMYCIN) 100 mg capsule Take 100 mg by mouth twice daily. Risedronate 150 mg tablet Take 150 mg by mouth once every month. In AM with cup of water on empty stomach. Nothing else by mouth and stay upright for 30 min. folic acid 1 mg tablet once daily. BD TUBERCULIN SYRINGE 1 mL 25 x 5/8 syrg Multivitamin capsule Take 1 capsule by mouth once daily. mometasone (NASONEX) 50 mcg/actuation nasal spray Use 2 Sprays in the nose once daily. methotrexate sodium 25 mg/mL soln once each week. montelukast (SINGULAIR) 10 mg tablet once daily. amoxicillin (POLYMOX, AMOXIL) 500 mg capsule once daily. (Patient not taking: Reported on 03/31/2021 ) predniSONE (DELTASONE) 5 mg tablet twice daily. (Patient not taking: Reported on 03/31/2021 ) GLUCOSAMINE/CHONDROITI N SULF A (GLUCOSAMINE-CHONDROIT IN ORAL) Take by mouth. No current facility-administered medications for this visit. : ALLERGIES Allergen Reactions Gluten Shortness of Breath Peanuts Shortness of Breath Yeast, Dried Shortness of Breath : PAST SURGICAL HISTORY Procedure Laterality Date ARTHRP KNE CONDYLEANDPLATU MEDIALANDLAT COMPARTMENTS Left 08/13/2004 ARTHRP KNE CONDYLEANDPLATU MEDIALANDLAT COMPARTMENTS Right 08/13/2014 CARPAL TUNNEL 82,83 x2 each wrist COLONOSCOPY 08/13/2009 FOOT SURGERY HX Right 07/2020 FOOT SURGERY HX Right 11/29/2020 INGUINAL HERNIA REPAIR HX Right 09/13/2014 LX REPAIR RECURRENT VENTRAL HERNIA 11/08/2015 Laparoscopic repair of recurrent ventral hernia PAST SURGICAL HISTORY OF 01/11/1993 kidney stone removal PAST SURGICAL HISTORY OF 08/13/1997 cardiac catherization PAST SURGICAL HISTORY OF Left 08/13/2005 knee revision PAST SURGICAL HISTORY OF 11/24/2022 Kidney stone removal REMOVAL OF PROSTATE 02/10/2013 SHOULDER SURGERY HX Right 08/21/2023 TONSILLECTOMY HX 08/13/1977 FAMILY HISTORY Problem Relation Age of Onset other (negative [Other]) Unknown : Social History Tobacco Use Smoking status: Never Smokeless tobacco: Never Substance Use Topics Alcohol use: No Drug use: No REVIEW OF SYSTEMS see tech note MSK: + as noted in HPI. Physical Exam: Patient is alert and oriented x 3 in NAD. Patient is a 74 year old male who appears well developed, well nourished and w (more content not included)... Normal [facility] No Panel Informationon 04-03 [facility] Ankle mortise with adequate triplane alignment. Fibula out to length. No acute fracture or dislocation. No bony cysts or tumors [facility] XR Ankle - left AP and Later michael 04-03-2024 Radiology Study observation (narrative) [facility] XR Ankle - right AP and Late ralon 04-03-2024 Radiology Study observation (narrative) [facility] XR Foot - left AP and Latera l and obliqueon 04-03-2024 No acute fracture or dislocation. Joint spaces maintained. Increased calcaneal inclination angle and decreased talar declination angle. No bony cysts or tumors. + plantar and posterior superior calcaneal enthesophyte formation. [facility] Radiology Study observation (narrative) [facility] XR Foot - right AP and Later al and obliqueon 04-03-2024 No acute fracture or dislocation. Chronic charcot changes present with collapse of midfoot and rocker bottom deformity present. There is chronic dislocation of the first mpj and lateral deviation of the hallux on the first mpj. Absent distal phalanges of second and third digits. [facility] Radiology Study observation (narrative) [facility] .Auto Diffon 11-07-2023 Basophil, Absolute 0.0 10 3/mcL Normal 0.0-0.2 [facility] ([place]) Comment on above: Performed By: #### C BC, GFR, ANEU, ADIFF, BMP #### Anitra [address] [address] Basophils/100 WBC (Bld) 0.4 % Normal 0.0-2.5 A [facility] ([place]) Comment on above: Performed By: #### C BC, GFR, ANEU, ADIFF, BMP #### [address] [address] Eosinophil, Absolute 0.0 10 3/mcL Normal 0.0-0.4 [facility] ([place]) Comment on above: Performed By: #### C BC, GFR, ANEU, ADIFF, BMP #### [address] [address] Eosinophils/100 WBC (Bld) 0.1 % Normal 0.0-7.0 [facility] ([place]) Comment on above: Performed By: #### C BC, GFR, ANEU, ADIFF, BMP #### [address] [address] Lymphocyte, Absolute 1.1 10 3/mcL Normal 0.8-3.9 [facility] ([place]) Comment on above: Performed By: #### C BC, GFR, ANEU, ADIFF, BMP #### [address] [address] Lymphocytes/100 WBC (Bld) 16.5 % Normal 10.0-50.0 [facility] ([place]) Comment on above: Performed By: #### C BC, GFR, ANEU, ADIFF, BMP #### [address] [address] Monocyte, Absolute 0.5 10 3/mcL Normal 0.2-1.0 [facility] ([place]) Comment on above: Performed By: #### C BC, GFR, ANEU, ADIFF, BMP #### [address] [address] Monocytes/100 WBC (Bld) 7.5 % Normal 1.7-13.0 A [facility] ([place]) Comment on above: Performed By: #### C BC, GFR, ANEU, ADIFF, BMP #### [address] [address] Neutrophils/100 WBC (Bld) 75.5 % Normal 37.0-80.0 [facility] ([place]) Comment on above: Performed By: #### C BC, GFR, ANEU, ADIFF, BMP #### [address] [address] .GFRon 11-07-2023 GFR 65 ml/min/1.73sqm Normal [facility] ([place]) Comment on above: Result Comment: GFR Population mean for , Non- Americans Ages 20-29 = 116 mL/min/1.73 sq.m. Ages 30-39 = 107 mL/min/1.73 sq.m. Ages 40-49 = 99 mL/min/1.73 sq.m. Ages 50-59 = 93 mL/min/1.73 sq.m. Ages 60-69 = 85 mL/min/1.73 sq.m. Ages 70+ = 75 mL/min/1.73 sq.m. Chronic Kidney Disease: Less than 60 mL/min/1.73 square meters End Stage Renal Disease: Less than 15 mL/min/1.73 square meters Performed By: #### C BC, GFR, ANEU, ADIFF, BMP #### [address] [address] GFR Non- 54 ml/min/1.73sqm Normal [facility] ([place]) Comment on above: Result Comment: GFR Population mean for , Non- Americans Ages 20-29 = 116 mL/min/1.73 sq.m. Ages 30-39 = 107 mL/min/1.73 sq.m. Ages 40-49 = 99 mL/min/1.73 sq.m. Ages 50-59 = 93 mL/min/1.73 sq.m. Ages 60-69 = 85 mL/min/1.73 sq.m. Ages 70+ = 75 mL/min/1.73 sq.m. Chronic Kidney Disease: Less than 60 mL/min/1.73 square meters End Stage Renal Disease: Less than 15 mL/min/1.73 square meters Performed By: #### C BC, GFR, ANEU, ADIFF, BMP #### [address] [address] .NEUABSon 11-07-2023 Neutrophil, Absolute 5.2 10 3/mcL Normal 2.9-6.2 [facility] ([place]) Comment on above: Performed By: #### C BC, GFR, ANEU, ADIFF, BMP #### [address] [address] BMPon 11-07-2023 BUN/Creatinine Ratio 12 ratio Normal 7-27 [facility] ([place]) Comment on above: Performed By: #### C BC, GFR, ANEU, ADIFF, BMP #### [address] [address] Calcium [Mass/Vol] 8.7 mg/dL Normal 8.4-10.2 [facility] ([place]) Comment on above: Performed By: #### C BC, GFR, ANEU, ADIFF, BMP #### [address] [address] Chloride [Moles/Vol] 105 mmol/L Normal 98-107 [facility] ([place]) Comment on above: Performed By: #### C BC, GFR, ANEU, ADIFF, BMP #### [address] [address] CO2 [Moles/Vol] 31 mmol/L Normal 23-31 [facility] ([place]) Comment on above: Performed By: #### C BC, GFR, ANEU, ADIFF, BMP #### [address] [address] Creatinine [Mass/Vol] 1.30 mg/dL Normal 0.70-1.30 [facility] ([place]) Comment on above: Performed By: #### C BC, GFR, ANEU, ADIFF, BMP #### [address] [address] Electrolyte Balance 3.0 mEq/L Low 4.0-15.0 [facility] ([place]) Comment on above: Performed By: #### C BC, GFR, ANEU, ADIFF, BMP #### [address] [address] Glucose [Mass/Vol] 122 mg/dL High 83-110 [facility] ([place]) Comment on above: Performed By: #### C BC, GFR, ANEU, ADIFF, BMP #### [address] [address] Potassium [Moles/Vol] 4.8 mmol/L Normal 3.5-5.1 [facility] ([place]) Comment on above: Performed By: #### C BC, GFR, ANEU, ADIFF, BMP #### [place] [phone] Sodium [Moles/Vol] 139 mmol/L Normal 136-145 [facility] ([place]) Comment on above: Performed By: #### C BC, GFR, ANEU, ADIFF, BMP #### [place] [address] Urea nitrogen [Mass/Vol] 16 mg/dL Normal 7-18 [facility] ([place]) Comment on above: Performed By: #### C BC, GFR, ANEU, ADIFF, BMP #### [place] [id number] CBCon 11-07-2023 Erythrocyte distribution width (RBC) [Ratio] 13.9 % Normal 11.5-14.5 [facility] ([place]) Comment on above: Performed By: #### C BC, GFR, ANEU, ADIFF, BMP #### [place] [address] Hematocrit (Bld) [Volume fraction] 40.5 % Low 42.0-52.0 [facility] ([place]) Comment on above: Performed By: #### C BC, GFR, ANEU, ADIFF, BMP #### [place] [phone] Hgb 14.0 G/dL Normal 14.0-18.0 [facility] ([place]) Comment on above: Performed By: #### C BC, GFR, ANEU, ADIFF, BMP #### [address] [address] MCH (RBC) [Entitic mass] 32.5 pg High 27.0-31.2 [facility] ([place]) Comment on above: Performed By: #### C BC, GFR, ANEU, ADIFF, BMP #### [address] [address] MCHC 34.5 G/dL Normal 31.8-35.4 [facility] ([place]) Comment on above: Performed By: #### C BC, GFR, ANEU, ADIFF, BMP #### [address] [address] MCV (RBC) [Entitic vol] 94.4 fL High 80.0-94.0 A [facility] ([place]) Comment on above: Performed By: #### C BC, GFR, ANEU, ADIFF, BMP #### [place] [phone] Platelet 256 10 3/mcL Normal 130-400 [facility] ([place]) Comment on above: Performed By: #### C BC, GFR, ANEU, ADIFF, BMP #### [place] [phone] Platelet mean volume (Bld) [Entitic vol] 6.3 fL Low 7.4-10.4 [facility] ([place]) Comment on above: Performed By: #### C BC, GFR, ANEU, ADIFF, BMP #### [place] [id number] RBC 4.29 10 6/mcL Normal 4.04-6.13 [facility] ([place]) Comment on above: Performed By: #### C BC, GFR, ANEU, ADIFF, BMP #### [place] [phone] WBC 6.9 10 3/mcL Normal 4.6-10.8 [facility] ([place]) Comment on above: Performed By: #### C BC, GFR, ANEU, ADIFF, BMP #### [place] [phone] LABORATORYOrdered By: SYSTEM SYSTEM on 11-07-2023 Basophil, Absolute 0.0 103/mcL Normal 0.0 - 0.2 10^3/mcL AO Workflow SS Basophils/100 WBC (Bld) 0.4 % Normal 0.0 - 2.5 % AO Workflow SS Calcium [Mass/Vol] 8.7 mg/dL Normal 8.4 - 10. 2 mg/dL AO ADM SS Chloride [Moles/Vol] 105 mmol/L Normal 98 - 10 7 mmol/L AO ADM SS CO2 [Moles/Vol] 31 mmol/L Normal 23 - 31 mmol/L AO ADM SS Creatinine [Mass/Vol] 1.30 mg/dL Normal 0.70 - 1.30 mg/dL AO ADM SS Electrolyte Balance 3.0 mEq/L Low 4.0 - 15 .0 mEq/L AO ADM SS Eosinophil, Absolute 0.0 103/mcL Normal 0.0 - 0 .4 10^3/mcL AO Workflow SS Eosinophils/100 WBC (Bld) 0.1 % Normal 0.0 - 7.0 % AO Workflow SS Erythrocyte distribution width (RBC) [Ratio] 13.9 % Normal 11.5 - 14.5 % AO Workflow SS GFR/1.73 sq M.predicted among blacks MDRD (S/P/Bld) [Vol rate/Area] 65 ml/min/1.73sqm Invalid Interpretation Code AO Chemistry S Comment on above: Interpretive Data: GFR Population mean for , Non- Americans Ages 20-29 = 116 mL/min/1.73 sq.m. Ages 30-39 = 107 mL/min/1.73 sq.m. Ages 40-49 = 99 mL/min/1.73 sq.m. Ages 50-59 = 93 mL/min/1.73 sq.m. Ages 60-69 = 85 mL/min/1.73 sq.m. Ages 70+ = 75 mL/min/1.73 sq.m. Chronic Kidney Disease: Less than 60 mL/min/1.73 square meters End Stage Renal Disease: Less than 15 mL/min/1.73 square meters GFR/1.73 sq M.predicted among non-blacks MDRD (S/P/Bld) [Vol rate/Area] 54 ml/min/1.73sqm Invalid Interpretation Code AO Chemistry S Comment on above: Interpretive Data: GFR Population mean for , Non- Americans Ages 20-29 = 116 mL/min/1.73 sq.m. Ages 30-39 = 107 mL/min/1.73 sq.m. Ages 40-49 = 99 mL/min/1.73 sq.m. Ages 50-59 = 93 mL/min/1.73 sq.m. Ages 60-69 = 85 mL/min/1.73 sq.m. Ages 70+ = 75 mL/min/1.73 sq.m. Chronic Kidney Disease: Less than 60 mL/min/1.73 square meters End Stage Renal Disease: Less than 15 mL/min/1.73 square meters Glucose [Mass/Vol] 122 mg/dL High 83 - 110 mg/dL AO ADM SS Hematocrit (Bld) [Volume fraction] 40.5 % Low 42.0 - 52.0 % AO Workflow SS Hemoglobin (Bld) [Mass/Vol] 14.0 G/dL Normal 14.0 - 18.0 G/dL AO Workflow SS Lymphocyte, Absolute 1.1 103/mcL Normal 0.8 - 3 .9 10^3/mcL AO Workflow SS Lymphocytes/100 WBC (Bld) 16.5 % Normal 10.0 - 50.0 % AO Workflow SS MCH (RBC) [Entitic mass] 32.5 pg High 27. 0 - 31.2 pg AO Workflow SS MCHC 34.5 G/dL Normal 31.8 - 35.4 G/dL AO Workflow SS MCV (RBC) [Entitic vol] 94.4 fL High 80.0 - 94.0 fL AO Workflow SS Monocyte, Absolute 0.5 103/mcL Normal 0.2 - 1.0 10^3/mcL AO Workflow SS Monocytes/100 WBC (Bld) 7.5 % Normal 1.7 - 13.0 % AO Workflow SS Neutrophil, Absolute 5.2 103/mcL Normal 2.9 - 6 .2 10^3/mcL AO Workflow SS Neutrophils/100 WBC (Bld) 75.5 % Normal 37.0 - 80.0 % AO Workflow SS Platelet mean volume (Bld) [Entitic vol] 6.3 fL Low 7.4 - 10.4 fL AO Workflow SS Platelets (Bld) [#/Vol] 256 103/mcL Normal 130 - 400 10^3/mcL AO Workflow SS Potassium [Moles/Vol] 4.8 mmol/L Normal 3.5 - 5.1 mmol/L AO ADM SS RBC (Bld) [#/Vol] 4.29 106/mcL Normal 4.04 - 6.1 3 10^6/mcL AO Workflow SS Sodium [Moles/Vol] 139 mmol/L Normal 136 - 145 mmol/L AO ADM SS Urea nitrogen [Mass/Vol] 16 mg/dL Normal 7 - 18 mg/dL AO ADM SS Urea nitrogen/Creatinine [Mass ratio] 12 ratio Normal 7 - 27 ratio AO ADM SS WBC (Bld) [#/Vol] 6.9 103/mcL Normal 4.6 - 10.8 10^3/mcL AO Workflow SS .Auto Diffon 11-06-2023 Basophil, Absolute 0.1 10 3/mcL Normal 0.0-0.2 [facility] ([place]) Comment on above: Performed By: #### C BC, GFR, ANEU, ADIFF, BMP #### [address] [address] Basophils/100 WBC (Bld) 0.7 % Normal 0.0-2.5 A [facility] ([place]) Comment on above: Performed By: #### C BC, GFR, ANEU, ADIFF, BMP #### [address] [address] Eosinophil, Absolute 0.5 10 3/mcL High 0.0-0.4 [facility] ([place]) Comment on above: Performed By: #### C BC, GFR, ANEU, ADIFF, BMP #### [address] [address] Eosinophils/100 WBC (Bld) 6.0 % Normal 0.0-7.0 [facility] ([place]) Comment on above: Performed By: #### C BC, GFR, ANEU, ADIFF, BMP #### [address] [address] Lymphocyte, Absolute 1.6 10 3/mcL Normal 0.8-3.9 [facility] ([place]) Comment on above: Performed By: #### C BC, GFR, ANEU, ADIFF, BMP #### [address] [address] Lymphocytes/100 WBC (Bld) 20.1 % Normal 10.0-50.0 [facility] ([place]) Comment on above: Performed By: #### C BC, GFR, ANEU, ADIFF, BMP #### [address] [address] Monocyte, Absolute 0.7 10 3/mcL Normal 0.2-1.0 [facility] ([place]) Comment on above: Performed By: #### C BC, GFR, ANEU, ADIFF, BMP #### [address] [address] Monocytes/100 WBC (Bld) 8.9 % Normal 1.7-13.0 A [facility] ([place]) Comment on above: Performed By: #### C BC, GFR, ANEU, ADIFF, BMP #### [address] [address] Neutrophils/100 WBC (Bld) 64.3 % Normal 37.0-80.0 [facility] ([place]) Comment on above: Performed By: #### C BC, GFR, ANEU, ADIFF, BMP #### [address] [address] .GFRon 11-06-2023 GFR 72 ml/min/1.73sqm Normal [facility] ([place]) Comment on above: Result Comment: GFR Population mean for , Non- Americans Ages 20-29 = 116 mL/min/1.73 sq.m. Ages 30-39 = 107 mL/min/1.73 sq.m. Ages 40-49 = 99 mL/min/1.73 sq.m. Ages 50-59 = 93 mL/min/1.73 sq.m. Ages 60-69 = 85 mL/min/1.73 sq.m. Ages 70+ = 75 mL/min/1.73 sq.m. Chronic Kidney Disease: Less than 60 mL/min/1.73 square meters End Stage Renal Disease: Less than 15 mL/min/1.73 square meters Performed By: #### C BC, GFR, ANEU, ADIFF, BMP #### [address] [address] GFR Non- 59 ml/min/1.73sqm Normal [facility] ([place]) Comment on above: Result Comment: GFR Population mean for , Non- Americans Ages 20-29 = 116 mL/min/1.73 sq.m. Ages 30-39 = 107 mL/min/1.73 sq.m. Ages 40-49 = 99 mL/min/1.73 sq.m. Ages 50-59 = 93 mL/min/1.73 sq.m. Ages 60-69 = 85 mL/min/1.73 sq.m. Ages 70+ = 75 mL/min/1.73 sq.m. Chronic Kidney Disease: Less than 60 mL/min/1.73 square meters End Stage Renal Disease: Less than 15 mL/min/1.73 square meters Performed By: #### C BC, GFR, ANEU, ADIFF, BMP #### [address] [address] .NEUABSon 11-06-2023 Neutrophil, Absolute 5.2 10 3/mcL Normal 2.9-6.2 [facility] ([place]) Comment on above: Performed By: #### C BC, GFR, ANEU, ADIFF, BMP #### [address] [address] ABO/Rh (Gel)on 11-06-2023 ABO/Rh Interp Positive Invalid Interpretation Code [facility] ([place]) Comment on above: Performed By: #### C BC, GFR, ANEU, ADIFF, BMP #### [address] [address] ABS (Gel)on 11-06-2023 ABSC Interp (Gel) Negative Normal [facility] ([place]) Comment on above: Performed By: #### C BC, GFR, ANEU, ADIFF, BMP #### [address] [address] ALBon 11-06-2023 Albumin Level 1.7 G/dL Low 3.4-4.8 [facility] ([place]) Comment on above: Performed By: #### C BC, GFR, ANEU, ADIFF, BMP #### [address] [address] BMPon 11-06-2023 BUN/Creatinine Ratio 12 ratio Normal 7-27 [facility] ([place]) Comment on above: Performed By: #### C BC, GFR, ANEU, ADIFF, BMP #### [address] [address] Calcium [Mass/Vol] 8.4 mg/dL Normal 8.4-10.2 [facility] ([place]) Comment on above: Performed By: #### C BC, GFR, ANEU, ADIFF, BMP #### [address] [address] Chloride [Moles/Vol] 103 mmol/L Normal 98-107 [facility] ([place]) Comment on above: Performed By: #### C BC, GFR, ANEU, ADIFF, BMP #### [address] [address] CO2 [Moles/Vol] 24 mmol/L Normal 23-31 [facility] ([place]) Comment on above: Performed By: #### C BC, GFR, ANEU, ADIFF, BMP #### [address] [address] Creatinine [Mass/Vol] 1.20 mg/dL Normal 0.70-1.30 [facility] ([place]) Comment on above: Performed By: #### C BC, GFR, ANEU, ADIFF, BMP #### [address] [address] Electrolyte Balance 10.0 mEq/L Normal 4.0-15.0 [facility] ([place]) Comment on above: Performed By: #### C BC, GFR, ANEU, ADIFF, BMP #### [address] [address] Glucose [Mass/Vol] 85 mg/dL Normal 83-110 [facility] ([place]) Comment on above: Performed By: #### C BC, GFR, ANEU, ADIFF, BMP #### [address] [address] Potassium [Moles/Vol] 4.0 mmol/L Normal 3.5-5.1 [facility] ([place]) Comment on above: Performed By: #### C BC, GFR, ANEU, ADIFF, BMP #### [address] [address] Sodium [Moles/Vol] 137 mmol/L Normal 136-145 [facility] ([place]) Comment on above: Performed By: #### C BC, GFR, ANEU, ADIFF, BMP #### [place] [address] Urea nitrogen [Mass/Vol] 15 mg/dL Normal 7-18 [facility] ([place]) Comment on above: Performed By: #### C BC, GFR, ANEU, ADIFF, BMP #### [place] [phone] CBCon 11-06-2023 Erythrocyte distribution width (RBC) [Ratio] 14.0 % Normal 11.5-14.5 [facility] ([place]) Comment on above: Performed By: #### C BC, GFR, ANEU, ADIFF, BMP #### [place] [address] Hematocrit (Bld) [Volume fraction] 39.8 % Low 42.0-52.0 [facility] ([place]) Comment on above: Performed By: #### C BC, GFR, ANEU, ADIFF, BMP #### [place] [address] Hgb 14.0 G/dL Normal 14.0-18.0 [facility] ([place]) Comment on above: Performed By: #### C BC, GFR, ANEU, ADIFF, BMP #### [place] [address] MCH (RBC) [Entitic mass] 32.9 pg High 27.0-31.2 [facility] ([place]) Comment on above: Performed By: #### C BC, GFR, ANEU, ADIFF, BMP #### [place] [phone] MCHC 35.1 G/dL Normal 31.8-35.4 [facility] ([place]) Comment on above: Performed By: #### C BC, GFR, ANEU, ADIFF, BMP #### [address] [address] MCV (RBC) [Entitic vol] 93.7 fL Normal 80.0-94.0 A [facility] ([place]) Comment on above: Performed By: #### C BC, GFR, ANEU, ADIFF, BMP #### [address] [address] Platelet 218 10 3/mcL Normal 130-400 [facility] ([place]) Comment on above: Performed By: #### C BC, GFR, ANEU, ADIFF, BMP #### [address] [address] Platelet mean volume (Bld) [Entitic vol] 6.1 fL Low 7.4-10.4 [facility] ([place]) Comment on above: Performed By: #### C BC, GFR, ANEU, ADIFF, BMP #### [address] [address] RBC 4.25 10 6/mcL Normal 4.04-6.13 [facility] ([place]) Comment on above: Performed By: #### C BC, GFR, ANEU, ADIFF, BMP #### [address] [address] WBC 8.1 10 3/mcL Normal 4.6-10.8 [facility] ([place]) Comment on above: Performed By: #### C BC, GFR, ANEU, ADIFF, BMP #### [address] [address] LABORATORYOrdered By: Lulu Ramos on 11-06-2023 ABO and Rh group Nom (Bld) Blood group O Rh(D) positive Invalid Interpretation Code AO BB Auto SS Blood group antibody screen Ql Negative ABSC (11/06/23 10:27 AM) Normal AO BB Auto SS LABORATORYOrdered By: SYSTEM SYSTEM on 11-06-2023 Albumin BCP dye [Mass/Vol] 1.7 G/dL Low 3.4 - 4.8 G/dL AO ADM SS Basophil, Absolute 0.1 103/mcL Normal 0.0 - 0.2 10^3/mcL AO Workflow SS Basophils/100 WBC (Bld) 0.7 % Normal 0.0 - 2.5 % AO Workflow SS Calcium [Mass/Vol] 8.4 mg/dL Normal 8.4 - 10. 2 mg/dL AO ADM SS Chloride [Moles/Vol] 103 mmol/L Normal 98 - 10 7 mmol/L AO ADM SS CO2 [Moles/Vol] 24 mmol/L Normal 23 - 31 mmol/L AO ADM SS Creatinine [Mass/Vol] 1.20 mg/dL Normal 0.70 - 1.30 mg/dL AO ADM SS Electrolyte Balance 10.0 mEq/L Normal 4.0 - 15 .0 mEq/L AO ADM SS Eosinophil, Absolute 0.5 103/mcL High 0.0 - 0 .4 10^3/mcL AO Workflow SS Eosinophils/100 WBC (Bld) 6.0 % Normal 0.0 - 7.0 % AO Workflow SS Erythrocyte distribution width (RBC) [Ratio] 14.0 % Normal 11.5 - 14.5 % AO Workflow SS GFR/1.73 sq M.predicted among blacks MDRD (S/P/Bld) [Vol rate/Area] 72 ml/min/1.73sqm Invalid Interpretation Code AO Chemistry S Comment on above: Interpretive Data: GFR Population mean for , Non- Americans Ages 20-29 = 116 mL/min/1.73 sq.m. Ages 30-39 = 107 mL/min/1.73 sq.m. Ages 40-49 = 99 mL/min/1.73 sq.m. Ages 50-59 = 93 mL/min/1.73 sq.m. Ages 60-69 = 85 mL/min/1.73 sq.m. Ages 70+ = 75 mL/min/1.73 sq.m. Chronic Kidney Disease: Less than 60 mL/min/1.73 square meters End Stage Renal Disease: Less than 15 mL/min/1.73 square meters GFR/1.73 sq M.predicted among non-blacks MDRD (S/P/Bld) [Vol rate/Area] 59 ml/min/1.73sqm Invalid Interpretation Code AO Chemistry S Comment on above: Interpretive Data: GFR Population mean for , Non- Americans Ages 20-29 = 116 mL/min/1.73 sq.m. Ages 30-39 = 107 mL/min/1.73 sq.m. Ages 40-49 = 99 mL/min/1.73 sq.m. Ages 50-59 = 93 mL/min/1.73 sq.m. Ages 60-69 = 85 mL/min/1.73 sq.m. Ages 70+ = 75 mL/min/1.73 sq.m. Chronic Kidney Disease: Less than 60 mL/min/1.73 square meters End Stage Renal Disease: Less than 15 mL/min/1.73 square meters Glucose [Mass/Vol] 85 mg/dL Normal 83 - 110 mg/dL AO ADM SS Hematocrit (Bld) [Volume fraction] 39.8 % Low 42.0 - 52.0 % AO Workflow SS Hemoglobin (Bld) [Mass/Vol] 14.0 G/dL Normal 14.0 - 18.0 G/dL AO Workflow SS Lymphocyte, Absolute 1.6 103/mcL Normal 0.8 - 3 .9 10^3/mcL AO Workflow SS Lymphocytes/100 WBC (Bld) 20.1 % Normal 10.0 - 50.0 % AO Workflow SS MCH (RBC) [Entitic mass] 32.9 pg High 27. 0 - 31.2 pg AO Workflow SS MCHC 35.1 G/dL Normal 31.8 - 35.4 G/dL AO Workflow SS MCV (RBC) [Entitic vol] 93.7 fL Normal 80.0 - 94.0 fL AO Workflow SS Monocyte, Absolute 0.7 103/mcL Normal 0.2 - 1.0 10^3/mcL AO Workflow SS Monocytes/100 WBC (Bld) 8.9 % Normal 1.7 - 13.0 % AO Workflow SS Neutrophil, Absolute 5.2 103/mcL Normal 2.9 - 6 .2 10^3/mcL AO Workflow SS Neutrophils/100 WBC (Bld) 64.3 % Normal 37.0 - 80.0 % AO Workflow SS Platelet mean volume (Bld) [Entitic vol] 6.1 fL Low 7.4 - 10.4 fL AO Workflow SS Platelets (Bld) [#/Vol] 218 103/mcL Normal 130 - 400 10^3/mcL AO Workflow SS Potassium [Moles/Vol] 4.0 mmol/L Normal 3.5 - 5.1 mmol/L AO ADM SS RBC (Bld) [#/Vol] 4.25 106/mcL Normal 4.04 - 6.1 3 10^6/mcL AO Workflow SS Sodium [Moles/Vol] 137 mmol/L Normal 136 - 145 mmol/L AO ADM SS Urea nitrogen [Mass/Vol] 15 mg/dL Normal 7 - 18 mg/dL AO ADM SS Urea nitrogen/Creatinine [Mass ratio] 12 ratio Normal 7 - 27 ratio AO ADM SS WBC (Bld) [#/Vol] 8.1 103/mcL Normal 4.6 - 10.8 10^3/mcL AO Workflow SS XR SHOULDER MINIMUM 2 VIEWS RIGHTon 11-06-2023 XR SHOULDER MINIMUM 2 VIEWS RIGHT ORIGINAL EXAMINATION: TWO XRAY VIEWS OF THE RIGHT SHOULDER 11/06/2023 3:04 pm COMPARISON: 08/21/2023 HISTORY: ORDERING SYSTEM PROVIDED HISTORY: Reason for Exam: Status Post Arthroplasty FINDINGS: A shoulder prosthesis is identified. The components appear well seated and intact. Gas in the soft tissues could be postoperative. No acute fracture or dislocation is identified. Degenerative changes are shown in the spine. IMPRESSION: Surgical changes. Interpreted by: Paige Amador MD Preliminary Report By: Paige Amador MD Electronically signed By Paige Amador MD Dictated Date: 11/06/2023 3:12:26 PM Prelim Date: 11/06/2023 3:13:05 PM Sign Date: 11/06/2023 3:13:05 PM Ordering Provider: JOE Farias [facility] ([place]) .Auto Diffon 08-22-2023 Basophil, Absolute 0.0 10 3/mcL Normal 0.0-0.2 [facility] ([place]) Comment on above: Performed By: #### C AREBN ANEU ADIFF, GFR, BMP #### [address] [address] Basophils/100 WBC (Bld) 0.3 % Normal 0.0-2.5 A [facility] ([place]) Comment on above: Performed By: #### C ARBEN ANEU ADIFF, GFR, BMP #### [address] [address] Eosinophil, Absolute 0.0 10 3/mcL Normal 0.0-0.4 [facility] ([place]) Comment on above: Performed By: #### C YESI THEODORE ADIFF, GFR, BMP #### [address] [address] Eosinophils/100 WBC (Bld) 0.3 % Normal 0.0-7.0 [facility] ([place]) Comment on above: Performed By: #### C BC, ANEU, ADIFF, GFR, BMP #### [address] [address] Lymphocyte, Absolute 1.5 10 3/mcL Normal 0.8-3.9 [facility] ([place]) Comment on above: Performed By: #### C BC, ANEU, ADIFF, GFR, BMP #### [address] [address] Lymphocytes/100 WBC (Bld) 15.0 % Normal 10.0-50.0 [facility] ([place]) Comment on above: Performed By: #### C BC, ANEU, ADIFF, GFR, BMP #### [address] [address] Monocyte, Absolute 1.3 10 3/mcL High 0.2-1.0 [facility] ([place]) Comment on above: Performed By: #### C BC, ANEU, ADIFF, GFR, BMP #### [address] [id number] Monocytes/100 WBC (Bld) 13.1 % High 1.7-13.0 A [facility] ([place]) Comment on above: Performed By: #### C BC, ANEU, ADIFF, GFR, BMP #### [address] [id number] Neutrophils/100 WBC (Bld) 71.3 % Normal 37.0-80.0 [facility] ([place]) Comment on above: Performed By: #### C BC, ANEU, ADIFF, GFR, BMP #### [address] [address] .GFRon 08-22-2023 GFR 66 ml/min/1.73sqm Normal [facility] ([place]) Comment on above: Result Comment: GFR Population mean for , Non- Americans Ages 20-29 = 116 mL/min/1.73 sq.m. Ages 30-39 = 107 mL/min/1.73 sq.m. Ages 40-49 = 99 mL/min/1.73 sq.m. Ages 50-59 = 93 mL/min/1.73 sq.m. Ages 60-69 = 85 mL/min/1.73 sq.m. Ages 70+ = 75 mL/min/1.73 sq.m. Chronic Kidney Disease: Less than 60 mL/min/1.73 square meters End Stage Renal Disease: Less than 15 mL/min/1.73 square meters Performed By: #### C BC, ANEU, ADIFF, GFR, BMP #### [address] [id number] GFR Non- 54 ml/min/1.73sqm Normal [facility] ([place]) Comment on above: Result Comment: GFR Population mean for , Non- Americans Ages 20-29 = 116 mL/min/1.73 sq.m. Ages 30-39 = 107 mL/min/1.73 sq.m. Ages 40-49 = 99 mL/min/1.73 sq.m. Ages 50-59 = 93 mL/min/1.73 sq.m. Ages 60-69 = 85 mL/min/1.73 sq.m. Ages 70+ = 75 mL/min/1.73 sq.m. Chronic Kidney Disease: Less than 60 mL/min/1.73 square meters End Stage Renal Disease: Less than 15 mL/min/1.73 square meters Performed By: #### C BC, ANEU, ADIFF, GFR, BMP #### [address] [address] .NEUABSon 08-22-2023 Neutrophil, Absolute 7.2 10 3/mcL High 2.9-6.2 [facility] ([place]) Comment on above: Performed By: #### C BC, ANEU, ADIFF, GFR, BMP #### [address] [address] BMPon 08-22-2023 BUN/Creatinine Ratio 12 ratio Normal 7-27 [facility] ([place]) Comment on above: Performed By: #### C BC, ANEU, ADIFF, GFR, BMP #### [address] [address] Calcium [Mass/Vol] 8.5 mg/dL Normal 8.4-10.2 [facility] ([place]) Comment on above: Performed By: #### C BC, ANEU, ADIFF, GFR, BMP #### [address] [address] Chloride [Moles/Vol] 102 mmol/L Normal 98-107 [facility] ([place]) Comment on above: Performed By: #### C BC, ANEU, ADIFF, GFR, BMP #### [place] [address] CO2 [Moles/Vol] 27 mmol/L Normal 23-31 [facility] ([place]) Comment on above: Performed By: #### C BC, ANEU, ADIFF, GFR, BMP #### [place] [address] Creatinine [Mass/Vol] 1.29 mg/dL Normal 0.70-1.30 [facility] ([place]) Comment on above: Performed By: #### C BC, ANEU, ADIFF, GFR, BMP #### [address] [address] Electrolyte Balance 9.0 mEq/L Normal 4.0-15.0 [facility] ([place]) Comment on above: Performed By: #### C BC, ANEU, ADIFF, GFR, BMP #### [address] [address] Glucose [Mass/Vol] 104 mg/dL Normal 83-110 [facility] ([place]) Comment on above: Performed By: #### C BC, ANEU, ADIFF, GFR, BMP #### [address] [address] Potassium [Moles/Vol] 4.4 mmol/L Normal 3.5-5.1 [facility] ([place]) Comment on above: Performed By: #### C BC, ANEU, ADIFF, GFR, BMP #### [address] [address] Sodium [Moles/Vol] 138 mmol/L Normal 136-145 [facility] ([place]) Comment on above: Performed By: #### C BC, ANEU, ADIFF, GFR, BMP #### [address] [address] Urea nitrogen [Mass/Vol] 15 mg/dL Normal 7-18 [facility] ([place]) Comment on above: Performed By: #### C BC, ANEU, ADIFF, GFR, BMP #### [address] [address] CBCon 08-22-2023 Erythrocyte distribution width (RBC) [Ratio] 14.1 % Normal 11.5-14.5 [facility] ([place]) Comment on above: Performed By: #### C BC, ANEU, ADIFF, GFR, BMP #### [place] [id number] Hematocrit (Bld) [Volume fraction] 37.3 % Low 42.0-52.0 [facility] ([place]) Comment on above: Performed By: #### C BC, ANEU, ADIFF, GFR, BMP #### [place] [address] Hgb 12.8 G/dL Low 14.0-18.0 [facility] ([place]) Comment on above: Performed By: #### C BC, ANEU, ADIFF, GFR, BMP #### [address] [address] MCH (RBC) [Entitic mass] 32.5 pg High 27.0-31.2 [facility] ([place]) Comment on above: Performed By: #### C BC, ANEU, ADIFF, GFR, BMP #### [place] [id number] MCHC 34.5 G/dL Normal 31.8-35.4 [facility] ([place]) Comment on above: Performed By: #### C BC, ANEU, ADIFF, GFR, BMP #### Anitra [place] [address] [place], [place] [address] MCV (RBC) [Entitic vol] 94.3 fL High 80.0-94.0 A [facility] ([place]) Comment on above: Performed By: #### C BC, ANEU, ADIFF, GFR, BMP #### Anitra [place] [address] [place], [place] [address] Platelet 258 10 3/mcL Normal 130-400 [facility] ([place]) Comment on above: Performed By: #### C BC, ANEU, ADIFF, GFR, BMP #### Anitra [place] [address] [place], [place] [address] Platelet mean volume (Bld) [Entitic vol] 6.1 fL Low 7.4-10.4 [facility] ([place]) Comment on above: Performed By: #### C BC, ANEU, ADIFF, GFR, BMP #### Anitra [address] [address] RBC 3.96 10 6/mcL Low 4.04-6.13 [facility] ([place]) Comment on above: Performed By: #### C BC, ANEU, ADIFF, GFR, BMP #### [address] [address] WBC 10.1 10 3/mcL Normal 4.6-10.8 [facility] ([place]) Comment on above: Performed By: #### C BC, ANEU, ADIFF, GFR, BMP #### [address] [address] LABORATORYOrdered By: SYSTEM SYSTEM on 08-22-2023 Basophil, Absolute 0.0 103/mcL Normal 0.0 - 0.2 10^3/mcL AO Workflow SS Basophils/100 WBC (Bld) 0.3 % Normal 0.0 - 2.5 % AO Workflow SS Calcium [Mass/Vol] 8.5 mg/dL Normal 8.4 - 10. 2 mg/dL AO ADM SS Chloride [Moles/Vol] 102 mmol/L Normal 98 - 10 7 mmol/L AO ADM SS CO2 [Moles/Vol] 27 mmol/L Normal 23 - 31 mmol/L AO ADM SS Creatinine [Mass/Vol] 1.29 mg/dL Normal 0.70 - 1.30 mg/dL AO ADM SS Electrolyte Balance 9.0 mEq/L Normal 4.0 - 15 .0 mEq/L AO ADM SS Eosinophil, Absolute 0.0 103/mcL Normal 0.0 - 0 .4 10^3/mcL AO Workflow SS Eosinophils/100 WBC (Bld) 0.3 % Normal 0.0 - 7.0 % AO Workflow SS Erythrocyte distribution width (RBC) [Ratio] 14.1 % Normal 11.5 - 14.5 % AO Workflow SS GFR/1.73 sq M.predicted among blacks MDRD (S/P/Bld) [Vol rate/Area] 66 ml/min/1.73sqm Invalid Interpretation Code AO Chemistry S Comment on above: Interpretive Data: GFR Population mean for , Non- Americans Ages 20-29 = 116 mL/min/1.73 sq.m. Ages 30-39 = 107 mL/min/1.73 sq.m. Ages 40-49 = 99 mL/min/1.73 sq.m. Ages 50-59 = 93 mL/min/1.73 sq.m. Ages 60-69 = 85 mL/min/1.73 sq.m. Ages 70+ = 75 mL/min/1.73 sq.m. Chronic Kidney Disease: Less than 60 mL/min/1.73 square meters End Stage Renal Disease: Less than 15 mL/min/1.73 square meters GFR/1.73 sq M.predicted among non-blacks MDRD (S/P/Bld) [Vol rate/Area] 54 ml/min/1.73sqm Invalid Interpretation Code AO Chemistry S Comment on above: Interpretive Data: GFR Population mean for , Non- Americans Ages 20-29 = 116 mL/min/1.73 sq.m. Ages 30-39 = 107 mL/min/1.73 sq.m. Ages 40-49 = 99 mL/min/1.73 sq.m. Ages 50-59 = 93 mL/min/1.73 sq.m. Ages 60-69 = 85 mL/min/1.73 sq.m. Ages 70+ = 75 mL/min/1.73 sq.m. Chronic Kidney Disease: Less than 60 mL/min/1.73 square meters End Stage Renal Disease: Less than 15 mL/min/1.73 square meters Glucose [Mass/Vol] 104 mg/dL Normal 83 - 110 mg/dL AO ADM SS Hematocrit (Bld) [Volume fraction] 37.3 % Low 42.0 - 52.0 % AO Workflow SS Hemoglobin (Bld) [Mass/Vol] 12.8 G/dL Low 14.0 - 18.0 G/dL AO Workflow SS Lymphocyte, Absolute 1.5 103/mcL Normal 0.8 - 3 .9 10^3/mcL AO Workflow SS Lymphocytes/100 WBC (Bld) 15.0 % Normal 10.0 - 50.0 % AO Workflow SS MCH (RBC) [Entitic mass] 32.5 pg High 27. 0 - 31.2 pg AO Workflow SS MCHC 34.5 G/dL Normal 31.8 - 35.4 G/dL AO Workflow SS MCV (RBC) [Entitic vol] 94.3 fL High 80.0 - 94.0 fL AO Workflow SS Monocyte, Absolute 1.3 103/mcL High 0.2 - 1.0 10^3/mcL AO Workflow SS Monocytes/100 WBC (Bld) 13.1 % High 1.7 - 13.0 % AO Workflow SS Neutrophil, Absolute 7.2 103/mcL High 2.9 - 6 .2 10^3/mcL AO Workflow SS Neutrophils/100 WBC (Bld) 71.3 % Normal 37.0 - 80.0 % AO Workflow SS Platelet mean volume (Bld) [Entitic vol] 6.1 fL Low 7.4 - 10.4 fL AO Workflow SS Platelets (Bld) [#/Vol] 258 103/mcL Normal 130 - 400 10^3/mcL AO Workflow SS Potassium [Moles/Vol] 4.4 mmol/L Normal 3.5 - 5.1 mmol/L AO ADM SS RBC (Bld) [#/Vol] 3.96 106/mcL Low 4.04 - 6.1 3 10^6/mcL AO Workflow SS Sodium [Moles/Vol] 138 mmol/L Normal 136 - 145 mmol/L AO ADM SS Urea nitrogen [Mass/Vol] 15 mg/dL Normal 7 - 18 mg/dL AO ADM SS Urea nitrogen/Creatinine [Mass ratio] 12 ratio Normal 7 - 27 ratio AO ADM SS WBC (Bld) [#/Vol] 10.1 103/mcL Normal 4.6 - 10.8 10^3/mcL AO Workflow SS Gel ABOOrdered By: Felecia salazar on 08-21-2023 ABO/Rh Interp Positive Invalid Interpretation Code AO BB SS Comment on above: Performed By: #### C ARBEN, GFR, ANEU, ADIFF, BMP #### Anitra [address] [address] Gel ABSon 08-21-2023 Antibody Screen Gel Negative Normal [facility] ([place]) Comment on above: Performed By: #### C BC, GFR, ANEU, ADIFF, BMP #### Anitra [address] [address] LABORATORYOrdered By: Felecia Espino on 08-21-2023 Antibody Screen Gel Negative ABSC (08/21/23 7:00 AM) Normal AO BB SS XR SHOULDER MINIMUM 2 VIEWS RIGHTon 08-21-2023 XR SHOULDER MINIMUM 2 VIEWS RIGHT ORIGINAL EXAMINATION: TWO XRAY VIEWS OF THE RIGHT SHOULDER08/21/2023 10:30 am XR right shoulder two views portable COMPARISON: CT 07/27/2023 HISTORY: ORDERING SYSTEM PROVIDED HISTORY: Reason for Exam: Status Post Arthroplasty, Status Post Arthroplasty , check prosthesis alignment FINDINGS: The right glenohumeral joint has been replaced with a prosthesis that show satisfactory alignment. There are expected postoperative changes in the soft tissues. IMPRESSION: Expected postoperative appearance following right shoulder replacement surgery. Interpreted by: Landry Ugarte MD Preliminary Report By: Landry Ugarte MD Electronically signed By Landry Ugarte MD Dictated Date: 08/21/2023 10:59:57 AM Prelim Date: 08/21/2023 11:00:25 AM Sign Date: 08/21/2023 11:00:25 AM Ordering Provider: JOE Farias [facility] ([place]) .Auto Diffon 07-27-2023 Basophil, Absolute 0.1 10 3/mcL Normal 0.0-0.2 [facility] ([place]) Comment on above: Performed By: #### C ARBEN, GFR, ANEU, ADIFF, BMP #### Anitra [address] [address] Basophils/100 WBC (Bld) 1.0 % Normal 0.0-2.5 A [facility] ([place]) Comment on above: Performed By: #### C BC, GFR, ANEU, ADIFF, BMP #### [address] [address] Eosinophil, Absolute 0.7 10 3/mcL High 0.0-0.4 [facility] ([place]) Comment on above: Performed By: #### C BC, GFR, ANEU, ADIFF, BMP #### [address] [address] Eosinophils/100 WBC (Bld) 12.3 % High 0.0-7.0 [facility] ([place]) Comment on above: Performed By: #### C BC, GFR, ANEU, ADIFF, BMP #### [address] [address] Lymphocyte, Absolute 1.8 10 3/mcL Normal 0.8-3.9 [facility] ([place]) Comment on above: Performed By: #### C BC, GFR, ANEU, ADIFF, BMP #### [address] [address] Lymphocytes/100 WBC (Bld) 32.7 % Normal 10.0-50.0 [facility] ([place]) Comment on above: Performed By: #### C BC, GFR, ANEU, ADIFF, BMP #### [address] [address] Monocyte, Absolute 0.6 10 3/mcL Normal 0.2-1.0 [facility] ([place]) Comment on above: Performed By: #### C BC, GFR, ANEU, ADIFF, BMP #### [address] [address] Monocytes/100 WBC (Bld) 11.6 % Normal 1.7-13.0 [facility] ([place]) Comment on above: Performed By: #### C BC, GFR, ANEU, ADIFF, BMP #### [address] [address] Neutrophils/100 WBC (Bld) 42.4 % Normal 37.0-80.0 [facility] ([place]) Comment on above: Performed By: #### C BC, GFR, ANEU, ADIFF, BMP #### [address] [address] .GFRon 07-27-2023 GFR 75 ml/min/1.73sqm Normal [facility] ([place]) Comment on above: Result Comment: GFR Population mean for , Non- Americans Ages 20-29 = 116 mL/min/1.73 sq.m. Ages 30-39 = 107 mL/min/1.73 sq.m. Ages 40-49 = 99 mL/min/1.73 sq.m. Ages 50-59 = 93 mL/min/1.73 sq.m. Ages 60-69 = 85 mL/min/1.73 sq.m. Ages 70+ = 75 mL/min/1.73 sq.m. Chronic Kidney Disease: Less than 60 mL/min/1.73 square meters End Stage Renal Disease: Less than 15 mL/min/1.73 square meters Performed By: #### C BC, GFR, ANEU, ADIFF, BMP #### [address] [address] GFR Non- 62 ml/min/1.73sqm Normal [facility] ([place]) Comment on above: Result Comment: GFR Population mean for , Non- Americans Ages 20-29 = 116 mL/min/1.73 sq.m. Ages 30-39 = 107 mL/min/1.73 sq.m. Ages 40-49 = 99 mL/min/1.73 sq.m. Ages 50-59 = 93 mL/min/1.73 sq.m. Ages 60-69 = 85 mL/min/1.73 sq.m. Ages 70+ = 75 mL/min/1.73 sq.m. Chronic Kidney Disease: Less than 60 mL/min/1.73 square meters End Stage Renal Disease: Less than 15 mL/min/1.73 square meters Performed By: #### C BC, GFR, ANEU, ADIFF, BMP #### [address] [address] .NEUABSon 07-27-2023 Neutrophil, Absolute 2.3 10 3/mcL Low 2.9-6.2 [facility] ([place]) Comment on above: Performed By: #### C BC, GFR, ANEU, ADIFF, BMP #### [address] [address] ALBon 07-27-2023 Albumin Level 3.6 G/dL Normal 3.4-4.8 [facility] ([place]) Comment on above: Performed By: #### C BC, GFR, ANEU, ADIFF, BMP #### [address] [address] BMPon 07-27-2023 BUN/Creatinine Ratio 16 ratio Normal 7-27 [facility] ([place]) Comment on above: Performed By: #### C BC, GFR, ANEU, ADIFF, BMP #### [address] [address] Calcium [Mass/Vol] 9.0 mg/dL Normal 8.4-10.2 [facility] ([place]) Comment on above: Performed By: #### C BC, GFR, ANEU, ADIFF, BMP #### [address] [address] Chloride [Moles/Vol] 107 mmol/L Normal 98-107 [facility] ([place]) Comment on above: Performed By: #### C BC, GFR, ANEU, ADIFF, BMP #### [address] [address] CO2 [Moles/Vol] 28 mmol/L Normal 23-31 [facility] ([place]) Comment on above: Performed By: #### C BC, GFR, ANEU, ADIFF, BMP #### [address] [address] Creatinine [Mass/Vol] 1.16 mg/dL Normal 0.70-1.30 [facility] ([place]) Comment on above: Performed By: #### C BC, GFR, ANEU, ADIFF, BMP #### [address] [address] Electrolyte Balance 10.0 mEq/L Normal 4.0-15.0 [facility] ([place]) Comment on above: Performed By: #### C BC, GFR, ANEU, ADIFF, BMP #### [address] [address] Glucose [Mass/Vol] 74 mg/dL Low 83-110 [facility] ([place]) Comment on above: Performed By: #### C BC, GFR, ANEU, ADIFF, BMP #### [address] [address] Potassium [Moles/Vol] 4.1 mmol/L Normal 3.5-5.1 [facility] ([place]) Comment on above: Performed By: #### C BC, GFR, ANEU, ADIFF, BMP #### [address] [address] Sodium [Moles/Vol] 145 mmol/L Normal 136-145 [facility] ([place]) Comment on above: Performed By: #### C BC, GFR, ANEU, ADIFF, BMP #### [address] [address] Urea nitrogen [Mass/Vol] 19 mg/dL High 7-18 [facility] ([place]) Comment on above: Performed By: #### C BC, GFR, ANEU, ADIFF, BMP #### [address] [address] CBCon 07-27-2023 Erythrocyte distribution width (RBC) [Ratio] 13.5 % Normal 11.5-14.5 [facility] ([place]) Comment on above: Order Comment: Pre-A dmission Testing Performed By: #### C BC, GFR, ANEU, ADIFF, BMP #### [address] [address] Hematocrit (Bld) [Volume fraction] 40.8 % Low 42.0-52.0 [facility] ([place]) Comment on above: Order Comment: Pre-A dmission Testing Performed By: #### C BC, GFR, ANEU, ADIFF, BMP #### [address] [address] Hgb 13.8 G/dL Low 14.0-18.0 [facility] ([place]) Comment on above: Order Comment: Pre-A dmission Testing Performed By: #### C BC, GFR, ANEU, ADIFF, BMP #### [address] [address] MCH (RBC) [Entitic mass] 32.0 pg High 27.0-31.2 [facility] ([place]) Comment on above: Order Comment: Pre-A dmission Testing Performed By: #### C BC, GFR, ANEU, ADIFF, BMP #### [address] [address] MCHC 33.8 G/dL Normal 31.8-35.4 [facility] ([place]) Comment on above: Order Comment: Pre-A dmission Testing Performed By: #### C BC, GFR, ANEU, ADIFF, BMP #### [address] [address] MCV (RBC) [Entitic vol] 94.5 fL High 80.0-94.0 A [facility] ([place]) Comment on above: Order Comment: Pre-A dmission Testing Performed By: #### C BC, GFR, ANEU, ADIFF, BMP #### [address] [address] Platelet 260 10 3/mcL Normal 130-400 [facility] ([place]) Comment on above: Order Comment: Pre-A dmission Testing Performed By: #### C BC, GFR, ANEU, ADIFF, BMP #### [address] [address] Platelet mean volume (Bld) [Entitic vol] 6.9 fL Low 7.4-10.4 [facility] ([place]) Comment on above: Order Comment: Pre-A dmission Testing Performed By: #### C BC, GFR, ANEU, ADIFF, BMP #### [address] [address] RBC 4.32 10 6/mcL Normal 4.04-6.13 [facility] ([place]) Comment on above: Order Comment: Pre-A dmission Testing Performed By: #### C BC, GFR, ANEU, ADIFF, BMP #### [place] [address] [place], [place] [address] WBC 5.5 10 3/mcL Normal 4.6-10.8 [facility] ([place]) Comment on above: Order Comment: Pre-A dmission Testing Performed By: #### C BC, GFR, FLOYD KEY BMP #### Anitra [place] [address] [place], [place] [address] CT SHOULDER W/O CONTRAST RIG HTon 07-27-2023 CT SHOULDER W/O CONTRAST RIGHT ORIGINAL EXAMINATION: CT OF THE RIGHT SHOULDER WITHOUT KFNJSOZI36/15/2023 3:16 pm TECHNIQUE: CT of the right shoulder was performed without the administration of intravenous contrast. Multiplanar reformatted images are provided for review. Automated exposure control, iterative reconstruction, and/or weight based adjustment of the mA/kV was utilized to reduce the radiation dose to as low as reasonably achievable. COMPARISON: None. HISTORY: ORDERING SYSTEM PROVIDED HISTORY: Reason for Exam: PRIMARY OSTEOARTHRITIS RIGHT SHOULDER. Pre-surgical tournier protocol FINDINGS: No acute fracture, periosteal reaction, osseous erosions, or aggressive osseous lesions identified. Severe glenohumeral degenerative changes consisting of joint space narrowing, subchondral sclerosis, and marginal osteophytes. Subchondral cysts are noted in the glenoid. Intracapsular loose body seen inferior to the glenoid measures approximately 0.9 cm (series 301, image 32). Additional small calcified intra-articular body suspected. Small glenohumeral joint effusion. 3 mm central bone loss noted in the glenoid. Mild degenerative changes are seen in the acromioclavicular joint with marginal osteophytes. Acromioclavicular capsular calcifications are noted. Asymmetric atrophy seen of the supraspinatus and superior segment of the subscapularis muscle. The suboptimally visualized structures within the chest demonstrate no acute abnormality. IMPRESSION: No aggressive osseous lesions identified. Severe glenohumeral joint arthrosis with loose intra-articular bodies. Central bone loss noted in the glenoid.. Significant atrophy of the supraspinatus and superior portion of the subscapularis muscles, possibly indicating chronic rotator cuff disease/tears. Other incidental findings as described above. I have personally reviewed the images of this examination and agree with the resident's findings and interpretation. Interpreted by: Kenneth Rios MD Preliminary Report By: Conchita Conde Electronically signed By Kenneth Rios MD Dictated Date: 07/27/2023 3:45:32 PM Prelim Date: 07/27/2023 4:11:06 PM Sign Date: 07/27/2023 4:11:06 PM Ordering Provider: JOE DURAND Normal [facility] ([place]) Gel ABOon 07-27-2023 ABO/Rh Interp Positive Invalid Interpretation Code [facility]) Comment on above: Performed By: #### C BC, GFR, ANEU, ADIFF, BMP #### Anitra [place] [address] [place], [place] [address] Gel ABSon 07-27-2023 Antibody Screen Gel Negative Normal [facility] ([place]) Comment on above: Performed By: #### C BC, GFR, ANEU, ADIFF, BMP #### Anitra [place] [address] [place], [place] [address] LABORATORYOrdered By: Nya Mackey on 07-27-2023 ABO/Rh Interp Positive Invalid Interpretation Code AO BB SS Antibody Screen Gel Negative ABSC (07/27/23 2:12 PM) Normal AO BB SS LABORATORYOrdered By: SYSTEM SYSTEM on 07-27-2023 Albumin BCP dye [Mass/Vol] 3.6 G/dL Normal 3.4 - 4.8 G/dL AO ADM SS Basophil, Absolute 0.1 103/mcL Normal 0.0 - 0.2 10^3/mcL AO Workflow SS Basophils/100 WBC (Bld) 1.0 % Normal 0.0 - 2.5 % AO Workflow SS Calcium [Mass/Vol] 9.0 mg/dL Normal 8.4 - 10. 2 mg/dL AO ADM SS Chloride [Moles/Vol] 107 mmol/L Normal 98 - 10 7 mmol/L AO ADM SS CO2 [Moles/Vol] 28 mmol/L Normal 23 - 31 mmol/L AO ADM SS Creatinine [Mass/Vol] 1.16 mg/dL Normal 0.70 - 1.30 mg/dL AO ADM SS Electrolyte Balance 10.0 mEq/L Normal 4.0 - 15 .0 mEq/L AO ADM SS Eosinophil, Absolute 0.7 103/mcL High 0.0 - 0 .4 10^3/mcL AO Workflow SS Eosinophils/100 WBC (Bld) 12.3 % High 0.0 - 7.0 % AO Workflow SS Erythrocyte distribution width (RBC) [Ratio] 13.5 % Normal 11.5 - 14.5 % AO Workflow SS GFR/1.73 sq M.predicted among blacks MDRD (S/P/Bld) [Vol rate/Area] 75 ml/min/1.73sqm Invalid Interpretation Code AO Chemistry S Comment on above: Interpretive Data: GFR Population mean for , Non- Americans Ages 20-29 = 116 mL/min/1.73 sq.m. Ages 30-39 = 107 mL/min/1.73 sq.m. Ages 40-49 = 99 mL/min/1.73 sq.m. Ages 50-59 = 93 mL/min/1.73 sq.m. Ages 60-69 = 85 mL/min/1.73 sq.m. Ages 70+ = 75 mL/min/1.73 sq.m. Chronic Kidney Disease: Less than 60 mL/min/1.73 square meters End Stage Renal Disease: Less than 15 mL/min/1.73 square meters GFR/1.73 sq M.predicted among non-blacks MDRD (S/P/Bld) [Vol rate/Area] 62 ml/min/1.73sqm Invalid Interpretation Code AO Chemistry S Comment on above: Interpretive Data: GFR Population mean for , Non- Americans Ages 20-29 = 116 mL/min/1.73 sq.m. Ages 30-39 = 107 mL/min/1.73 sq.m. Ages 40-49 = 99 mL/min/1.73 sq.m. Ages 50-59 = 93 mL/min/1.73 sq.m. Ages 60-69 = 85 mL/min/1.73 sq.m. Ages 70+ = 75 mL/min/1.73 sq.m. Chronic Kidney Disease: Less than 60 mL/min/1.73 square meters End Stage Renal Disease: Less than 15 mL/min/1.73 square meters Glucose [Mass/Vol] 74 mg/dL Low 83 - 110 mg/dL AO ADM SS Hematocrit (Bld) [Volume fraction] 40.8 % Low 42.0 - 52.0 % AO Workflow SS Hemoglobin (Bld) [Mass/Vol] 13.8 G/dL Low 14.0 - 18.0 G/dL AO Workflow SS Lymphocyte, Absolute 1.8 103/mcL Normal 0.8 - 3 .9 10^3/mcL AO Workflow SS Lymphocytes/100 WBC (Bld) 32.7 % Normal 10.0 - 50.0 % AO Workflow SS MCH (RBC) [Entitic mass] 32.0 pg High 27. 0 - 31.2 pg AO Workflow SS MCHC 33.8 G/dL Normal 31.8 - 35.4 G/dL AO Workflow SS MCV (RBC) [Entitic vol] 94.5 fL High 80.0 - 94.0 fL AO Workflow SS Monocyte, Absolute 0.6 103/mcL Normal 0.2 - 1.0 10^3/mcL AO Workflow SS Monocytes/100 WBC (Bld) 11.6 % Normal 1.7 - 13.0 % AO Workflow SS Neutrophil, Absolute 2.3 103/mcL Low 2.9 - 6 .2 10^3/mcL AO Workflow SS Neutrophils/100 WBC (Bld) 42.4 % Normal 37.0 - 80.0 % AO Workflow SS Platelet mean volume (Bld) [Entitic vol] 6.9 fL Low 7.4 - 10.4 fL AO Workflow SS Platelets (Bld) [#/Vol] 260 103/mcL Normal 130 - 400 10^3/mcL AO Workflow SS Potassium [Moles/Vol] 4.1 mmol/L Normal 3.5 - 5.1 mmol/L AO ADM SS RBC (Bld) [#/Vol] 4.32 106/mcL Normal 4.04 - 6.1 3 10^6/mcL AO Workflow SS Sodium [Moles/Vol] 145 mmol/L Normal 136 - 145 mmol/L AO ADM SS Urea nitrogen [Mass/Vol] 19 mg/dL High 7 - 18 mg/dL AO ADM SS Urea nitrogen/Creatinine [Mass ratio] 16 ratio Normal 7 - 27 ratio AO ADM SS WBC (Bld) [#/Vol] 5.5 103/mcL Normal 4.6 - 10.8 10^3/mcL AO Workflow SS LABORATORYOrdered By: Robert Landaverde on 07-27-2023 MRSA DNA NORBERTO+probe Ql (Unsp spec) Not Detected 1 (07/27/23 2:12 PM) Normal Not Detected AH Auto Viro/Sero SS Comment on above: Result Comment: Note s [id number] MRSA PCR Int MRSA DNA not detecte d by Real-Time Polymerase Chain Reaction (PCR). A negative result may be due to intermittent colonization. Colonization may vary depending on patient treatment, patient status, or exposure to high-risk environments.As with all PCR based in vitro diagnostic tests, extremely low levels of target below the limit of detection of the assay may be detected, but results may not be reproducible. Invalid Interpretation Code AH Auto Viro/Sero SS MRSAPCRon 07-27-2023 MRSA (PCR) Not detected Normal Not Detected [facility] ([place]) Comment on above: Result Comment: [place] s [id number] Performed By: #### C BC, GFR, ANEU, ADIFF, BMP #### [address] [address] MRSA PCR Int Normal [facility] ([place]) Comment on above: Result Comment: MRSA DNA not detected by Real-Time Polymerase Chain Reaction (PCR). A negative result may be due to intermittent colonization. Colonization may vary depending on patient treatment, patient status, or exposure to high-risk environments. As with all PCR based in vitro diagnostic tests, extremely low levels of target below the limit of detection of the assay may be detected, but results may not be reproducible. See Below Performed By: #### C BC, GFR, ANEU, ADIFF, BMP #### [address] [address] XR CHEST 2 VIEWSon 3 XR CHEST 2 VIEWS ORIGINAL EXAMINATION: TWO XRAY VIEWS OF THE CHEST 07/27/2023 2:49 pm COMPARISON: 04/06/2015 HISTORY: ORDERING SYSTEM PROVIDED HISTORY: Reason for Exam: asthma FINDINGS: The cardiomediastinal silhouette is normal. There is linear airspace disease at the bases favoring atelectasis or scarring. No pleural effusion, vascular congestion, or pneumothorax. Multilevel degenerative changes are identified in the spine. IMPRESSION: Linear bibasilar airspace disease favors atelectasis or scarring. Infiltrates are within the differential. Interpreted by: Paige Amador MD Preliminary Report By: Paige Amador MD Electronically signed By Paige Amador MD Dictated Date: 07/27/2023 10:23:00 PM Prelim Date: 07/27/2023 10:23:55 PM Sign Date: 07/27/2023 10:23:55 PM Ordering Provider: ANDREW BURCH [facility] ([place]) Absolute lymphocyte countOrd ered By: Dr. Mayorga on 10-30-2022 Lymphocytes Auto (Unsp spec) [#/Vol] 1.16 10*3/uL 0.83-4.51 [facility] Basophil percentageOrdered B y: Dr. Mayorga on 10-30-2022 Basophils/100 WBC (Bld) 0.8 % 0-1 [facility] Chloride [Moles/Vol] 103 mmol/L 98-107 [facility] Eosinophils/100 WBC (Bld) 1.4 % 0-5 [facility] Glucose [Mass/Vol] 87 mg/dL 74-106 [facility] Neutrophils (Bld) [#/Vol] 4.9 10*3/uL 2.0-7.7 [facility] Neutrophils/100 WBC (Bld) 67.6 % 47-70 [facility] Potassium [Moles/Vol] 3.9 mmol/L 3.5-5.1 [facility] Sodium [Moles/Vol] 137 mmol/L 136-145 [facility] WBC (Bld) [#/Vol] 7.3 10*3/uL 4.4-11.0 [facility] Blood erythrocytes count (nu mber/volume)Ordered By: Dr. Mayorga on 10-30-2022 RBC (Bld) [#/Vol] 4.53 10*6/uL 4.6-6.2 [facility] Blood hemoglobin measurement (mass/volume)Ordered By: Dr. Mayorga on 10-30-2022 Hemoglobin (Bld) [Mass/Vol] 14.0 g/dL 13.0-16.5 [facility] Blood lymphocytes/100 leukoc ytesOrdered By: Dr. Mayorga on 10-30-2022 Lymphocytes/100 WBC (Bld) 15.8 % 19-41 [facility] Blood monocytes/100 leukocyt esOrdered By: Dr. Mayorga on 10-30-2022 Monocytes/100 WBC (Bld) 13.9 % 0-10 [facility] Blood platelet mean volumeOr dered By: Dr. Mayorga on 10-30-2022 Platelet mean volume (Bld) [Entitic vol] 8.4 fL 6.2-12.0 [facility] Determination of erythrocyte mean corpuscular volume (MCV)Ordered By: Dr. Mayorga on 10-30-2022 MCV (RBC) [Entitic vol] 93.8 fL 80-94 [facility] Hematocrit Auto (Bld) [Volum e fraction]Ordered By: Dr. Mayorga on 10-30-2022 Hematocrit (Bld) [Volume fraction] 42.5 % 40-54 [facility] Laboratory - Chemistry and C hemistry - challengeOrdered By: Dr. Mayorga on 10-30-2022 CO2 [Moles/Vol] 27.0 mmol/L 21.0-32.0 [facility] Urea nitrogen/Creatinine [Mass ratio] 17.8 mg/mg 10-20 [facility] Laboratory - Hematology and Cell countsOrdered By: Dr. Mayorga on 10-30-2022 Erythrocyte distribution width (RBC) [Entitic vol] 46.0 fL 35.1-43.9 [facility] Erythrocyte distribution width (RBC) [Ratio] 13.5 % 11.6-14.6 [facility] Immature granulocytes/100 WBC (Bld) 0.500 % 0.0-0.9 [facility] Comment on above: IG% - Immature Granu locytes (promyelocytes, myelocytes and metamyelocytes) > 1% indicates that a LEFT SHIFT is Present. MCH (RBC) [Entitic mass] 30.9 pg 27.0-32.0 [facility] Nucleated RBC/100 WBC (Bld) [Ratio] 0 % 0-5 [facility] MCHC Auto (RBC) [Mass/Vol]Or dered By: Dr. Mayorga on 10-30-2022 MCHC (RBC) [Mass/Vol] 32.9 g/dL 32-36 [facility] No Panel InformationOrdered By: Dr. Mayorga on 10-30-2022 Estimated Creatinine Clearance Calc 64.41 ml/min [facility] Estimated GFR (MDRD) Amer 67 mL/min >60 [facility] Comment on above: GFR Calc Estimated GFR (MDRD) Non-Af Amer 55 mL/min >60 [facility] Comment on above: Non- GFR Calc Platelets bldOrdered By: Dr. Mayorga on 10-30-2022 Platelets (Bld) [#/Vol] 258 10*3/uL 150-450 [facility] Serum or plasma calcium marybeth urement (mass/volume)Ordered By: Dr. Mayorga on 10-30-2022 Calcium [Mass/Vol] 9.3 mg/dL 8.5-10.1 [facility] Serum or plasma creatinine m easurement (mass/volume)Ordered By: Dr. Mayorga on 10-30-2022 Creatinine [Mass/Vol] 1.35 mg/dL 0.70-1.30 [facility] Comment on above: The validity of the calculated GFR & GFRAA in patients over 70 years has not been determined. Clinical correlation is essential. Serum or plasma urea nitroge n measurement (mass/volume)Ordered By: Dr. Mayorga on 10-30-2022 Urea nitrogen [Mass/Vol] 24 mg/dL 7-18 [facility] Thin prep Papanicolaou smear with manual screeningOrdered By: Dr. Mayorga on 10-30-2022 Thin prep Papanicolaou smear with manual screening 7 5-15 [facility] Laboratory - Microbiology an d Antimicrobial susceptibilityOrdered By: Dr. Bonds on 10-05-2022 Bacteria identified Cx Nom (Bld) No growth in 5 days. [facility] Culture, urineOrdered By: Dr Violet Bonds on 10-01-2022 Bacteria identified Cx Nom (U) Mixed Gram Pos & Gram Neg Org [facility] Absolute lymphocyte countOrd ered By: Dr. Bonds on 09-30-2022 Lymphocytes Auto (Unsp spec) [#/Vol] 0.92 10*3/uL 0.83-4.51 [facility] Basophil percentageOrdered B y: Dr. Bonds on 09-30-2022 Basophil percentage 0-5 SEEN /hpf 0-5 [facility] Lactate [Moles/Vol] 1.9 mmol/L 0.4-2.0 [facility] Basophils/100 WBC (Bld) 0.6 % 0-1 [facility] Bilirubin [Mass/Vol] 1.10 mg/dL 0.20-1.00 [facility] Comment on above: For patients on eltr ombopag therapy, use of Dim[place] TBIL is not recommended. Chloride [Moles/Vol] 100 mmol/L 98-107 [facility] Eosinophils/100 WBC (Bld) 0.1 % 0-5 [facility] Glucose [Mass/Vol] 120 mg/dL 74-106 [facility] Comment on above: Fasting Glucose resu lt from 100 to 125 mg/dL suggests IMPAIRED HOMEOSTASIS per A.D.A. criteria. Neutrophils (Bld) [#/Vol] 9.3 10*3/uL 2.0-7.7 [facility] Neutrophils/100 WBC (Bld) 78.5 % 47-70 [facility] Potassium [Moles/Vol] 3.2 mmol/L 3.5-5.1 [facility] Protein [Mass/Vol] 9.0 g/dL 6.4-8.2 [facility] Sodium [Moles/Vol] 134 mmol/L 136-145 [facility] WBC (Bld) [#/Vol] 11.8 10*3/uL 4.4-11.0 [facility] Bilirubin Test strip Ql (U)O rdered By: Dr. Bonds on 09-30-2022 Bilirubin Ql (U) Negative Negative [facility] Blood erythrocytes count (nu mber/volume)Ordered By: Dr. Bonds on 09-30-2022 RBC (Bld) [#/Vol] 5.33 10*6/uL 4.6-6.2 [facility] Blood hemoglobin measurement (mass/volume)Ordered By: Dr. Bonds on 09-30-2022 Hemoglobin (Bld) [Mass/Vol] 16.9 g/dL 13.0-16.5 [facility] Blood lymphocytes/100 leukoc ytesOrdered By: Dr. Bonds on 09-30-2022 Lymphocytes/100 WBC (Bld) 7.8 % 19-41 [facility] Blood monocytes/100 leukocyt esOrdered By: Dr. Bonds on 09-30-2022 Monocytes/100 WBC (Bld) 12.6 % 0-10 [facility] Blood platelet mean volumeOr dered By: Dr. Bonds on 09-30-2022 Platelet mean volume (Bld) [Entitic vol] 8.8 fL 6.2-12.0 [facility] Determination of erythrocyte mean corpuscular volume (MCV)Ordered By: Dr. Bonds on 09-30-2022 MCV (RBC) [Entitic vol] 93.1 fL 80-94 [facility] Hematocrit Auto (Bld) [Volum e fraction]Ordered By: Dr. Bonds on 09-30-2022 Hematocrit (Bld) [Volume fraction] 49.6 % 40-54 [facility] Influenza virus A and B and SARS-CoV-2 (COVID-19) Ag panel - Upper respiratory specimOrdered By: Dr. Bonds on 09-30-2022 SARS-CoV-2 (COVID-19) RNA NORBERTO+probe Ql (Resp) [facility] Ketones Test strip Ql (U)Ord ered By: Dr. Bonds on 09-30-2022 Ketones Ql (U) 15 mg/dl Negative [facility] Laboratory - Chemistry and C hemistry - challengeOrdered By: Dr. Bonds on 09-30-2022 ALP [Catalytic activity/Vol] 92 U/L 45-117 [facility] ALT [Catalytic activity/Vol] 23 U/L 16-61 [facility] CO2 [Moles/Vol] 23.0 mmol/L 21.0-32.0 [facility] Globulin (S) [Mass/Vol] 5.6 g/dL 2.2-4.2 [facility] Lipase [Catalytic activity/Vol] 95 U/L 73-393 [facility] Urea nitrogen/Creatinine [Mass ratio] 25.2 mg/mg 10-20 [facility] Laboratory - Hematology and Cell countsOrdered By: Dr. Bonds on 09-30-2022 Erythrocyte distribution width (RBC) [Entitic vol] 45.0 fL 35.1-43.9 [facility] Erythrocyte distribution width (RBC) [Ratio] 13.1 % 11.6-14.6 [facility] Immature granulocytes/100 WBC (Bld) 0.400 % 0.0-0.9 [facility] Comment on above: IG% - Immature Granu locytes (promyelocytes, myelocytes and metamyelocytes) > 1% indicates that a LEFT SHIFT is Present. MCH (RBC) [Entitic mass] 31.7 pg 27.0-32.0 [facility] Nucleated RBC/100 WBC (Bld) [Ratio] 0 % 0-5 [facility] MCHC Auto (RBC) [Mass/Vol]Or dered By: Dr. Bonds on 09-30-2022 MCHC (RBC) [Mass/Vol] 34.1 g/dL 32-36 [facility] Magnesium ammonium phosphate crystal detectionOrdered By: Dr. Bonds on 09-30-2022 Triple phosphate crystals LM Ql (Urine sed) RARE /hpf [facility] Mucus LM Ql (Urine sed)Order ed By: Dr. Bonds on 09-30-2022 Mucus Ql (Urine sed) 0 SEEN /hpf [facility] Nitrite Test strip Ql (U)Ord ered By: Dr. Bonds on 09-30-2022 Nitrite Ql (U) Positive Negative [facility] No Panel InformationOrdered By: Dr. Bonds on 09-30-2022 Estimated Creatinine Clearance Calc 48.87 ml/min [facility] Estimated GFR (MDRD) Amer 64 mL/min >60 [facility] Comment on above: GFR Calc Estimated GFR (MDRD) Non-Af Amer 53 mL/min >60 [facility] Comment on above: Non- GFR Calc Platelets bldOrdered By: Dr. Bonds on 09-30-2022 Platelets (Bld) [#/Vol] 213 10*3/uL 150-450 [facility] Protein Test strip Ql (U)Ord ered By: Dr. Bonds on 09-30-2022 Protein Ql (U) 100 mg/dl Negative [facility] Serum or plasma albumin marybeth urement (mass/volume)Ordered By: Dr. Bonds on 09-30-2022 Albumin [Mass/Vol] 3.4 g/dL 3.2-5.0 [facility] Serum or plasma albumin/glob ulin mass ratioOrdered By: Dr. Bonds on 09-30-2022 Albumin/Globulin [Mass ratio] 0.6 {ratio} 0.9-2.4 [facility] Serum or plasma calcium marybeth urement (mass/volume)Ordered By: Dr. Bonds on 09-30-2022 Calcium [Mass/Vol] 9.2 mg/dL 8.5-10.1 [facility] Serum or plasma creatinine m easurement (mass/volume)Ordered By: Dr. Bonds on 09-30-2022 Creatinine [Mass/Vol] 1.39 mg/dL 0.70-1.30 [facility] Comment on above: The validity of the calculated GFR & GFRAA in patients over 70 years has not been determined. Clinical correlation is essential. Serum or plasma urea nitroge n measurement (mass/volume)Ordered By: Dr. Bonds on 09-30-2022 Urea nitrogen [Mass/Vol] 35 mg/dL 7-18 [facility] Squamous epithelial cells de tection in urine sediment by light microscopyOrdered By: Dr. Bonds on 09-30-2022 Epithelial cells.squamous LM Ql (Urine sed) 0 SEEN /hpf 0-5 [facility] Thin prep Papanicolaou smear with manual screeningOrdered By: Dr. Bonds on 09-30-2022 Thin prep Papanicolaou smear with manual screening 26 U/L 15-37 [facility] Thin prep Papanicolaou smear with manual screening 11 5-15 [facility] Urine blood detectionOrdered By: Dr. Bonds on 09-30-2022 RBC Ql (U) 150 /ul Negative [facility] RBC Ql (U) 0-5 SEEN /hpf 0-5 [facility] Urine clarityOrdered By: Dr. Bonds on 09-30-2022 Clarity (U) Sl. Cloudy Clear [facility] Urine color determinationOrd ered By: Dr. Bonds on 09-30-2022 Color (U) Yellow Yellow [facility] Urine glucose detectionOrder ed By: Dr. Bonds on 09-30-2022 Glucose Ql (U) Normal mg/dl Normal [facility] Urine leukocyte esterase det ection by dipstickOrdered By: Dr. Bonds on 09-30-2022 Leukocyte esterase Test strip Ql (U) 25 /ul Negative [facility] Urine pHOrdered By: Dr. Lizzie medina on 09-30-2022 pH (U) 6.5 [pH] 5.0 - 8.0 [facility] Urine sediment bacteria coun t by microscopy (number/high power field)Ordered By: Dr. Bonds on 09-30-2022 Bacteria LM.HPF (Urine sed) [#/Area] 1 /[HPF] None Seen [facility] Urine specific gravity measu rementOrdered By: Dr. Bonds on 09-30-2022 Specific gravity (U) [Rel density] 1.010 1.002-1.030 [facility] Urobilinogen Auto test strip Ql (U)Ordered By: Dr. Bonds on 09-30-2022 Urobilinogen Ql (U) Normal mg/dl Normal [facility] No Panel InformationOrdered By: Dr. Mayorga on 08-24-2022 Prostate Specific Antigen Total < 0.01 ng/mL 0.0-4.0 [facility] Comment on above: This test was perfor med using the TPSA assay method for [employer] system. Values obtained with differentassay methods cannot be used interchangably.When changing PSA assays in the course of monitoring apatient, additional sequential testing should be carriedout to confirm baseline values. Albumin Elph [Mass/Vol]Order ed By: Dr. Tinajero on 06-12-2022 Albumin [Mass/Vol] 3.3 g/dL 2.9-4.4 [facility] Basophil percentageOrdered B y: Dr. Tinajero on 06-12-2022 Basophil percentage Comment . [facility] Comment on above: No monoclonality det ected.Performed at: [place] [id number] Director: Chase Smith PhD, Phone: [phone] Interpretation of serum or p lasma protein pattern by immunofixation (narrative resultOrdered By: Dr. Tinajero on 06-12-2022 Protein Fractions Immunofixation Dale [Interp] See comment [facility] Comment on above: Result: Not Observed No Panel InformationOrdered By: Dr. Tinajero on 06-12-2022 Addendum Document Comment . [facility] Comment on above: Protein electrophore sis scan will follow via computer,mail, or bee raiser delivery. Serum [id number] measu rement by electrophoresisOrdered By: Dr. Tinajero on 06-12-2022 Alpha 1 globulin Elph [Mass/Vol] 0.3 g/dL 0.0-0.4 [facility] Alpha 1 globulin Elph [Mass/Vol] 1.0 g/dL 0.4-1.0 [facility] Serum globulin measurement ( mass/volume)Ordered By: Dr. Tinajero on 06-12-2022 Globulin (S) [Mass/Vol] 3.6 g/dL 2.2-3.9 [facility] Serum or plasma IgA measurem ent (mass/volume)Ordered By: Dr. Tinajero on 06-12-2022 IgA [Mass/Vol] 287 mg/dL 61-437 [facility] Serum or plasma IgG measurem ent (mass/volume)Ordered By: Dr. Tinajero on 06-12-2022 IgG [Mass/Vol] 1255 mg/dL 603-1613 [facility] Serum or plasma IgM measurem ent (mass/volume)Ordered By: Dr. Tinajero on 06-12-2022 IgM [Mass/Vol] 96 mg/dL 15-143 [facility] Serum or plasma beta globuli n measurement by electrophoresis (mass/volume)Ordered By: Dr. Tinajero on 06-12-2022 Beta globulin Elph [Mass/Vol] 1.1 g/dL 0.7-1.3 [facility] Serum or plasma gamma globul in measurement by electrophoresis (mass/volume)Ordered By: Dr. Tinajero on 06-12-2022 Gamma globulin Elph [Mass/Vol] 1.2 g/dL 0.4-1.8 [facility] Serum or plasma immunoelectr ophoresis interpretation (nominal result)Ordered By: Dr. Tinajero on 06-12-2022 Interpretation IEP [Interp] Comment . [facility] Comment on above: No monoclonality det ected. Thin prep Papanicolaou smear with manual screeningOrdered By: Dr. Tinajero on 06-12-2022 Thin prep Papanicolaou smear with manual screening 1.0 0.7-1.7 [facility] Total protein bloodOrdered B y: Dr. Tinajero on 06-12-2022 Protein [Mass/Vol] 6.9 g/dL 6.0-8.5 [facility] Anaerobic cultureOrdered By: Dr. Solorzano on 06-11-2022 Bacteria identified Anaer cx Nom (Unsp spec) No growth in 5 days. [facility] Bacterial body fluid culture Ordered By: Dr. Solorzano on 06-11-2022 Bacteria identified Cx Nom (Body fld) No growth aerobically. [facility] Absolute lymphocyte countOrd ered By: Dr. Vega on 06-07-2022 Lymphocytes Auto (Unsp spec) [#/Vol] 1.57 10*3/uL 0.83-4.51 [facility] Basophil percentageOrdered B y: Dr. Vega on 06-07-2022 Basophils/100 WBC (Bld) 0.7 % 0-1 [facility] Bilirubin [Mass/Vol] 0.70 mg/dL 0.20-1.00 [facility] Comment on above: For patients on eltr ombopag therapy, use of Dim[place] TBIL is not recommended. Chloride [Moles/Vol] 107 mmol/L 98-107 [facility] Eosinophils/100 WBC (Bld) 5.4 % 0-5 [facility] Glucose [Mass/Vol] 89 mg/dL 74-106 [facility] Neutrophils (Bld) [#/Vol] 4.3 10*3/uL 2.0-7.7 [facility] Neutrophils/100 WBC (Bld) 61.7 % 47-70 [facility] Potassium [Moles/Vol] 3.9 mmol/L 3.5-5.1 [facility] Protein [Mass/Vol] 7.0 g/dL 6.4-8.2 [facility] Sodium [Moles/Vol] 136 mmol/L 136-145 [facility] WBC (Bld) [#/Vol] 6.9 10*3/uL 4.4-11.0 [facility] Blood erythrocytes count (nu mber/volume)Ordered By: Dr. Vega on 06-07-2022 RBC (Bld) [#/Vol] 4.19 10*6/uL 4.6-6.2 [facility] Blood hemoglobin measurement (mass/volume)Ordered By: Dr. Vega on 06-07-2022 Hemoglobin (Bld) [Mass/Vol] 13.3 g/dL 13.0-16.5 [facility] Blood lymphocytes/100 leukoc ytesOrdered By: Dr. Vega on 06-07-2022 Lymphocytes/100 WBC (Bld) 22.8 % 19-41 [facility] Blood monocytes/100 leukocyt esOrdered By: Dr. Vega on 06-07-2022 Monocytes/100 WBC (Bld) 9.0 % 0-10 [facility] Blood platelet mean volumeOr dered By: Dr. Vega on 06-07-2022 Platelet mean volume (Bld) [Entitic vol] 8.2 fL 6.2-12.0 [facility] Determination of erythrocyte mean corpuscular volume (MCV)Ordered By: Dr. Vega on 06-07-2022 MCV (RBC) [Entitic vol] 95.5 fL 80-94 [facility] Hematocrit Auto (Bld) [Volum e fraction]Ordered By: Dr. Vega on 06-07-2022 Hematocrit (Bld) [Volume fraction] 40.0 % 40-54 [facility] Laboratory - Chemistry and C hemistry - challengeOrdered By: Dr. Vega on 06-07-2022 ALP [Catalytic activity/Vol] 100 U/L 45-117 [facility] ALT [Catalytic activity/Vol] 18 U/L 16-61 [facility] CO2 [Moles/Vol] 26.0 mmol/L 21.0-32.0 [facility] Globulin (S) [Mass/Vol] 4.0 g/dL 2.2-4.2 [facility] Urea nitrogen/Creatinine [Mass ratio] 18.7 mg/mg 10-20 [facility] Laboratory - Hematology and Cell countsOrdered By: Dr. Vega on 06-07-2022 Erythrocyte distribution width (RBC) [Entitic vol] 44.8 fL 35.1-43.9 [facility] Erythrocyte distribution width (RBC) [Ratio] 12.8 % 11.6-14.6 [facility] Immature granulocytes/100 WBC (Bld) 0.400 % 0.0-0.9 [facility] Comment on above: IG% - Immature Granu locytes (promyelocytes, myelocytes and metamyelocytes) > 1% indicates that a LEFT SHIFT is Present. MCH (RBC) [Entitic mass] 31.7 pg 27.0-32.0 [facility] Nucleated RBC/100 WBC (Bld) [Ratio] 0 % 0[facility]5 [facility] ([facility] [Mass/Vol]Or dered By: Dr. Vega on 06-07-2022 MCHC (RBC) [Mass/Vol] 33.3 g/dL 32-36 [facility] No Panel InformationOrdered By: Dr. Vega on 06-07-2022 Estimated Creatinine Clearance Calc 70.76 ml/min [facility] Estimated GFR (MDRD) Amer 98 mL/min >60 [facility] Comment on above: GFR Calc Estimated GFR (MDRD) Non-Af Amer 81 mL/min >60 [facility] Comment on above: Non- GFR Calc Platelets bldOrdered By: Dr. Vega on 06-07-2022 Platelets (Bld) [#/Vol] 235 10*3/uL 150-450 [facility] Serum or plasma albumin marybeth urement (mass/volume)Ordered By: Dr. Vega on 06-07-2022 Albumin [Mass/Vol] 3.0 g/dL 3.2-5.0 [facility] Serum or plasma albumin/glob ulin mass ratioOrdered By: Dr. Vega on 06-07-2022 Albumin/Globulin [Mass ratio] 0.8 {ratio} 0.9-2.4 [facility] Serum or plasma calcium marybeth urement (mass/volume)Ordered By: Dr. Vega on 06-07-2022 Calcium [Mass/Vol] 8.8 mg/dL 8.5-10.1 [facility] Serum or plasma creatinine m easurement (mass/volume)Ordered By: Dr. Vega on 06-07-2022 Creatinine [Mass/Vol] 0.96 mg/dL 0.70-1.30 [facility] Comment on above: The validity of the calculated GFR & GFRAA in patients over 70 years has not been determined. Clinical correlation is essential. Serum or plasma urea nitroge n measurement (mass/volume)Ordered By: Dr. Vega on 06-07-2022 Urea nitrogen [Mass/Vol] 18 mg/dL 7-18 [facility] Thin prep Papanicolaou smear with manual screeningOrdered By: Dr. Vega on 06-07-2022 Thin prep Papanicolaou smear with manual screening 19 U/L 15-37 [facility] Thin prep Papanicolaou smear with manual screening 3 5-15 [facility] Gram stain for investigation of transfusion reactionOrdered By: Dr. Solorzano on 06-06-2022 Microscopic observation Gram stain Nom (Unsp spec) [facility] Erythrocyte sedimentation ra teOrdered By: Dr. Solorzano on 06-05-2022 ESR (Bld) [Velocity] 14 mm/h 0-20 [facility] Serum or plasma C reactive p rotein measurement (mass/volume)Ordered By: Dr. Solorzano on 06-05-2022 CRP [Mass/Vol] 56.60 mg/L 0.0-3.0 [facility] Comment on above: C-Reactive Protein ( CRP) provides useful information for thediagnosis, therapy and monitoring of inflammatory processesand associated diseases. For the evaluation of Relative Riskfor Cardiovascular Disease, a High Sensitivity CRP (HSCRP)should be ordered. Basophil percentageon 2021 Bilirubin [Mass/Vol] 0.70 mg/dL 0.20-1.00 [facility] Work Phone: Comment on above: For patients on eltr ombopag therapy, use of Dim[employer] [place] TBIL is not recommended. Protein [Mass/Vol] 7.0 g/dL 6.4-8.2 [facility] Work Phone: Direct bilirubinon 2 Bilirubin.direct [Mass/Vol] 0.18 mg/dL 0.00-0.30 [facility] Work Phone: Laboratory - Chemistry and C hemistry - challengeon 02-16-2022 ALP [Catalytic activity/Vol] 97 U/L 45-117 [facility] Work Phone: ALT [Catalytic activity/Vol] 19 U/L 16-61 [facility] Work Phone: Globulin (S) [Mass/Vol] 3.7 g/dL 2.2-4.2 [facility] Work Phone: [phone] Serum or plasma albumin marybeth urement (mass/volume)on 02-16-2022 Albumin [Mass/Vol] 3.3 g/dL 3.2-5.0 [facility] Work Phone: Thin prep Papanicolaou smear with manual screeningon 02-16-2022 Thin prep Papanicolaou smear with manual screening 17 U/L 15-37 [facility] Work Phone: Basophil percentageon 2021 Bilirubin [Mass/Vol] 0.80 mg/dL 0.20-1.00 [facility] Work Phone: Comment on above: For patients on eltr ombopag therapy, use of [employer] [place] TBIL is not recommended. Chloride [Moles/Vol] 108 mmol/L 98-107 [facility] Work Phone: Glucose [Mass/Vol] 88 mg/dL 74-106 [facility] Work Phone: Potassium [Moles/Vol] 3.8 mmol/L 3.5-5.1 [facility] Work Phone: Protein [Mass/Vol] 7.6 g/dL 6.4-8.2 [facility] Work Phone: Sodium [Moles/Vol] 140 mmol/L 136-145 [facility] Work Phone: WBC (Bld) [#/Vol] 4.8 10*3/uL 4.4-11.0 [facility] Work Phone: Blood erythrocytes count (nu mber/volume)on 12-30-2021 RBC (Bld) [#/Vol] 4.63 10*6/uL 4.6-6.2 [facility] Work Phone: [phone] Blood hemoglobin measurement (mass/volume)on 12-30-2021 Hemoglobin (Bld) [Mass/Vol] 15.1 g/dL 13.0-16.5 [facility] Work Phone: [phone] Blood platelet mean volumeon 12-30-2021 Platelet mean volume (Bld) [Entitic vol] 8.8 fL 6.2-12.0 [facility] Work Phone: Determination of erythrocyte mean corpuscular volume (MCV)on 12-30-2021 MCV (RBC) [Entitic vol] 96.5 fL 80-94 [facility] Work Phone: [phone] Hematocrit Auto (Bld) [Volum e fraction]on 12-30-2021 Hematocrit (Bld) [Volume fraction] 44.7 % 40-54 [facility] Work Phone: Laboratory - Chemistry and C hemistry - challengeon 12-30-2021 ALP [Catalytic activity/Vol] 99 U/L 45-117 [facility] Work Phone: [phone] ALT [Catalytic activity/Vol] 27 U/L 16-61 [facility] Work Phone: [phone] CO2 [Moles/Vol] 27.0 mmol/L 21.0-32.0 [facility] Work Phone: [phone] Cobalamin (Vitamin B12) [Mass/Vol] 471 pg/mL 211-911 [facility] Work Phone: Globulin (S) [Mass/Vol] 4.0 g/dL 2.2-4.2 [facility] Work Phone: [phone] Urea nitrogen/Creatinine [Mass ratio] 13.2 mg/mg 10-20 [facility] Work Phone: [phone] Laboratory - Hematology and Cell countson 12-30-2021 Erythrocyte distribution width (RBC) [Entitic vol] 42.6 fL 35.1-43.9 [facility] Work Phone: [phone] Erythrocyte distribution width (RBC) [Ratio] 12.0 % 11.6-14.6 [facility] Work Phone: [phone] MCH (RBC) [Entitic mass] 32.6 pg 27.0-32.0 [facility] Work Phone: MCHC Auto (RBC) [Mass/Vol]on 12-30-2021 MCHC (RBC) [Mass/Vol] 33.8 g/dL 32-36 [facility] Work Phone: No Panel Informationon 12-30 Estimated GFR (MDRD) Amer 81 mL/min >60 [facility] Work Phone: Comment on above: GFR Calc Estimated GFR (MDRD) Non-Af Amer 67 mL/min >60 [facility] Work Phone: Comment on above: Non- GFR Calc Thyroid Stimulating Hormone (TSH) 2.44 uIU/mL 0.358-3.74 [facility] Work Phone: Platelets bldon 12-30-2021 Platelets (Bld) [#/Vol] 226 10*3/uL 150-450 [facility] Work Phone: Serum or plasma albumin marybeth urement (mass/volume)on 12-30-2021 Albumin [Mass/Vol] 3.6 g/dL 3.2-5.0 [facility] Work Phone: Serum or plasma albumin/glob ulin mass ratioon 12-30-2021 Albumin/Globulin [Mass ratio] 0.9 {ratio} 0.9-2.4 [facility] Work Phone: Serum or plasma calcitriol m easurement (mass/volume)on 12-30-2021 1,25-dihydroxyvitamin D3 [Mass/Vol] 55.0 pg/mL [facility] Work Phone: Comment on above: Effective January 16, 2022 Calcitriol(1,25 di-OH Vit D) reference interval will be changing to: pg/mL 0 - 6 months: 44.3 - 212.9 7 months - 1 year: 40.3 - 112.4 >1 year: 24.8 - 81.5Performed at: [facility], [place] [id number] Director: Daniel Blount MD, Phone: [phone] Serum or plasma calcium marybeth urement (mass/volume)on 12-30-2021 Calcium [Mass/Vol] 8.9 mg/dL 8.5-10.1 [facility] Work Phone: [phone] Serum or plasma creatinine m easurement (mass/volume)on 12-30-2021 Creatinine [Mass/Vol] 1.14 mg/dL 0.70-1.30 [facility] Work Phone: Comment on above: The validity of the calculated GFR & GFRAA in patients over 70 years has not been determined. Clinical correlation is essential. Serum or plasma folate measu rement (mass/volume)on 12-30-2021 Folate [Mass/Vol] 31.20 ng/mL 3.1-55.4 [facility] Work Phone: Comment on above: Slight Hemolysis, Re sult may be falsely increased. Serum or plasma urea nitroge n measurement (mass/volume)on 12-30-2021 Urea nitrogen [Mass/Vol] 15 mg/dL 7-18 [facility] Work Phone: [phone] Thin prep Papanicolaou smear with manual screeningon 12-30-2021 Thin prep Papanicolaou smear with manual screening 30 U/L 15-37 [facility] Work Phone: [phone] Thin prep Papanicolaou smear with manual screening 5 5-15 [facility] Work Phone: [phone] Bacteria identified Anaer cx Nom (Unsp spec)on 09-16-2021 Anaerobic microbial culture No anaerobic bacteria isolated. [facility] Work Phone: [phone] Bacteria identified Cx Nom ( Wound)on 09-16-2021 Wound Culture Corynebacterium striatum [facility] Work Phone: [phone] Gram stain for investigation of transfusion reactionon 09-16-2021 Microscopic observation Gram stain Nom (Unsp spec) [facility] Work Phone: [phone] Absolute lymphocyte counton 09-07-2021 Lymphocytes Auto (Unsp spec) [#/Vol] 0.88 10*3/uL 0.83-4.51 [facility] Work Phone: [phone] Basophil percentageon 2021 Basophils/100 WBC (Bld) 0.7 % 0-1 [facility] Work Phone: Bilirubin [Mass/Vol] 0.70 mg/dL 0.20-1.00 [facility] Work Phone: Comment on above: For patients on eltr ombopag therapy, use of Dimension [place] TBIL is not recommended. Chloride [Moles/Vol] 107 mmol/L 98-107 [facility] Work Phone: Eosinophils/100 WBC (Bld) 3.3 % 0-5 [facility] Work Phone: Glucose [Mass/Vol] 94 mg/dL 74-106 [facility] Work Phone: Neutrophils (Bld) [#/Vol] 2.9 10*3/uL 2.0-7.7 [facility] Work Phone: Neutrophils/100 WBC (Bld) 62.6 % 47-70 [facility] Work Phone: Potassium [Moles/Vol] 3.8 mmol/L 3.5-5.1 [facility] Work Phone: Protein [Mass/Vol] 7.3 g/dL 6.4-8.2 [facility] Work Phone: Sodium [Moles/Vol] 139 mmol/L 136-145 [facility] Work Phone: WBC (Bld) [#/Vol] 4.6 10*3/uL 4.4-11.0 [facility] Work Phone: Blood erythrocytes count (nu mber/volume)on 09-07-2021 RBC (Bld) [#/Vol] 4.35 10*6/uL 4.6-6.2 [facility] Work Phone: Blood hemoglobin measurement (mass/volume)on 09-07-2021 Hemoglobin (Bld) [Mass/Vol] 14.2 g/dL 13.0-16.5 [facility] Work Phone: Blood lymphocytes/100 leukoc yteson 09-07-2021 Lymphocytes/100 WBC (Bld) 19.1 % 19-41 [facility] Work Phone: Blood monocytes/100 leukocyt eson 09-07-2021 Monocytes/100 WBC (Bld) 13.9 % 0-10 [facility] Work Phone: Blood platelet mean volumeon 09-07-2021 Platelet mean volume (Bld) [Entitic vol] 8.5 fL 6.2-12.0 [facility] Work Phone: Determination of erythrocyte mean corpuscular volume (MCV)on 09-07-2021 MCV (RBC) [Entitic vol] 96.3 fL 80-94 [facility] Work Phone: Hematocrit Auto (Bld) [Volum e fraction]on 09-07-2021 Hematocrit (Bld) [Volume fraction] 41.9 % 40-54 [facility] Work Phone: Laboratory - Chemistry and C hemistry - challengeon 09-07-2021 ALP [Catalytic activity/Vol] 81 U/L 45-117 [facility] Work Phone: ALT [Catalytic activity/Vol] 32 U/L 16-61 [facility] Work Phone: CO2 [Moles/Vol] 26.0 mmol/L 21.0-32.0 [facility] Work Phone: Globulin (S) [Mass/Vol] 4.0 g/dL 2.2-4.2 [facility] Work Phone: Urea nitrogen/Creatinine [Mass ratio] 11.8 mg/mg 10-20 [facility] Work Phone: Laboratory - Hematology and Cell countson 09-07-2021 Erythrocyte distribution width (RBC) [Entitic vol] 46.9 fL 35.1-43.9 [facility] Work Phone: Erythrocyte distribution width (RBC) [Ratio] 13.2 % 11.6-14.6 [facility] Work Phone: Immature granulocytes/100 WBC (Bld) 0.400 % 0.0-0.9 [facility] Work Phone: Comment on above: IG% - Immature Granu locytes (promyelocytes, myelocytes and metamyelocytes) > 1% indicates that a LEFT SHIFT is Present. MCH (RBC) [Entitic mass] 32.6 pg 27.0-32.0 [facility] Work Phone: Nucleated RBC/100 WBC (Bld) [Ratio] 0 % 0-5 [facility] Work Phone: [phone] MCHC Auto (RBC) [Mass/Vol]on 09-07-2021 MCHC (RBC) [Mass/Vol] 33.9 g/dL 32-36 [facility] Work Phone: No Panel Informationon 09-07 Estimated GFR (MDRD) Amer 92 mL/min >60 [facility] Work Phone: Comment on above: GFR Calc Estimated GFR (MDRD) Non-Af Amer 76 mL/min >60 [facility] Work Phone: Comment on above: Non- GFR Calc Platelets bldon 09-07-2021 Platelets (Bld) [#/Vol] 180 10*3/uL 150-450 [facility] Work Phone: [phone] Serum or plasma albumin marybeth urement (mass/volume)on 09-07-2021 Albumin [Mass/Vol] 3.3 g/dL 3.2-5.0 [facility] Work Phone: [phone] Serum or plasma albumin/glob ulin mass ratioon 09-07-2021 Albumin/Globulin [Mass ratio] 0.8 {ratio} 0.9-2.4 [facility] Work Phone: [phone] Serum or plasma calcium marybeth urement (mass/volume)on 09-07-2021 Calcium [Mass/Vol] 8.5 mg/dL 8.5-10.1 [facility] Work Phone: [phone] Serum or plasma creatinine m easurement (mass/volume)on 09-07-2021 Creatinine [Mass/Vol] 1.02 mg/dL 0.70-1.30 [facility] Work Phone: Comment on above: The validity of the calculated GFR & GFRAA in patients over 70 years has not been determined. Clinical correlation is essential. Serum or plasma urea nitroge n measurement (mass/volume)on 09-07-2021 Urea nitrogen [Mass/Vol] 12 mg/dL 7-18 [facility] Work Phone: Thin prep Papanicolaou smear with manual screeningon 09-07-2021 Thin prep Papanicolaou smear with manual screening 28 U/L 15-37 [facility] Work Phone: Thin prep Papanicolaou smear with manual screening 6 5-15 [facility] Work Phone: Absolute lymphocyte counton 09-06-2021 Lymphocytes Auto (Unsp spec) [#/Vol] 1.89 10*3/uL 0.83-4.51 [facility] Work Phone: Basophil percentageon 2021 Basophils/100 WBC (Bld) 0.5 % 0-1 [facility] Work Phone: Eosinophils/100 WBC (Bld) 4.1 % 0-5 [facility] Work Phone: Neutrophils (Bld) [#/Vol] 3.0 10*3/uL 2.0-7.7 [facility] Work Phone: Neutrophils/100 WBC (Bld) 51.4 % 47-70 [facility] Work Phone: WBC (Bld) [#/Vol] 5.9 10*3/uL 4.4-11.0 [facility] Work Phone: Blood erythrocytes count (nu mber/volume)on 09-06-2021 RBC (Bld) [#/Vol] 4.49 10*6/uL 4.6-6.2 [facility] Work Phone: Blood hemoglobin measurement (mass/volume)on 09-06-2021 Hemoglobin (Bld) [Mass/Vol] 14.4 g/dL 13.0-16.5 [facility] Work Phone: Blood lymphocytes/100 leukoc yteson 09-06-2021 Lymphocytes/100 WBC (Bld) 32.2 % 19-41 [facility] Work Phone: [phone] Blood monocytes/100 leukocyt eson 09-06-2021 Monocytes/100 WBC (Bld) 11.6 % 0-10 [facility] Work Phone: [phone] Blood platelet mean volumeon 09-06-2021 Platelet mean volume (Bld) [Entitic vol] 8.4 fL 6.2-12.0 [facility] Work Phone: [phone] Determination of erythrocyte mean corpuscular volume (MCV)on 09-06-2021 MCV (RBC) [Entitic vol] 96.0 fL 80-94 [facility] Work Phone: [phone] Hematocrit Auto (Bld) [Volum e fraction]on 09-06-2021 Hematocrit (Bld) [Volume fraction] 43.1 % 40-54 [facility] Work Phone: Laboratory - Hematology and Cell countson 09-06-2021 Erythrocyte distribution width (RBC) [Entitic vol] 45.8 fL 35.1-43.9 [facility] Work Phone: [phone] Erythrocyte distribution width (RBC) [Ratio] 12.9 % 11.6-14.6 [facility] Work Phone: [phone] Immature granulocytes/100 WBC (Bld) 0.200 % 0.0-0.9 [facility] Work Phone: [phone] Comment on above: IG% - Immature Granu locytes (promyelocytes, myelocytes and metamyelocytes) > 1% indicates that a LEFT SHIFT is Present. MCH (RBC) [Entitic mass] 32.1 pg 27.0-32.0 [facility] Work Phone: Nucleated RBC/100 WBC (Bld) [Ratio] 0 % 0-5 [facility] Work Phone: [phone] MCHC Auto (RBC) [Mass/Vol]on 09-06-2021 MCHC (RBC) [Mass/Vol] 33.4 g/dL 32-36 [facility] Work Phone: No Panel Informationon 09-06 Immunoglobulin E 243 IU/mL [facility] Work Phone: Comment on above: Performed at: [address] [id number] Director: Daniel Blount MD, Phone: [phone] Platelets bldon 09-06-2021 Platelets (Bld) [#/Vol] 203 10*3/uL 150-450 [facility] Work Phone: CNOVon 04-07-2021 CNOV Office Visit (GENSWS ) SHIVANI BONILLA ([id number]) 1950 M Date Time Provider Department 04/07/21 3:00 PM FAVIO BAÑUELOS During your visit today, we recorded the following information about you: Favio Bañuelos MD 04/11/2021 5:48 AM Signed FOLLOW UP VISIT NAME: Shivani [facility] NO.: [id number] DATE OF SERVICE: 04/07/2021 : 1950 REFERRING PHYSICIAN: Gagna Cid is a patient I am following for right groin pain. The patient returns with concern of a recurrent hernia. The patient notes discomfort in his right inguinal area. He has noticed this pain for approximately 6 months. Notes that it hurts when he moves or when he is sitting. He notes it is worse when he is lifting. He states he feels like he can sense the edge of the mesh in that location. ? I had seen the patient in the past for recurrent incisional hernia. He also had inguinal pain and a questionable left inguinal hernia on CT scan at that time. ? On November 08, 2015, I performed a laparoscopic lysis of adhesions laparoscopic removal of a previous 8 x 7 cm piece of mesh and placement of a 17.8 x 22.9 cm ventral light mesh. Laparoscopic inspection at that time demonstrated no true inguinal hernias on the right or left side. Saw him for examination March 31, 2021. I found no hernias on palpation at that time. The patient was heard for CT scan of the abdomen pelvis. Underwent CT scan on April 05, 2021. This demonstrated: IMPRESSION: Mild nonspecific wall thickening of the rectosigmoid colon. ?Colitis cannot be excluded. Minimal atelectasis and bronchiectasis at both lung bases. Nephrolithiasis. ?Left renal cyst. Low-density hepatic foci are incompletely characterized. ?Likely benign The patient's previously placed midline mesh was in place with no signs of recurrence. There were no demonstratable hernias in the right inguinal area. VITALS: There were no vitals taken for this visit. On examination, the patient has no demonstratable hernia by palpation on the right inguinal area. With percussion on the lower back mid lumbar area the patient notes pain in the area that radiates down to his right groin area., Assessment IMPRESSION: Right groin pain, more likely lumbar sacral pain ventral hernia PLAN: If the patient notes any problems or signs of bulge in the right groin area, the patient should contact me immediately. Patient states he sees a chiropractor for cervical issues and he will follow up with him for assessment of lumbar issues. Diagnoses: (R10.31) Right groin pain (primary encounter diagnosis) Return to Clinic: The patient is instructed to follow-up with me as needed. Favio Bañuelos MD Referring Provider: FAVIO BAÑUELOS [[id number]] Allergies As of Date: 04/07/2021 Noted Allergy Reaction GLUTEN 10/21/2015 12 - Shortness of Breath PEANUTS 10/21/2015 12 - Shortness of Breath YEAST, DRIED 10/21/2015 12 - Shortness of Breath Date Reviewed: 04/07/2021 Reviewed by: Rosalba Mckinnon Ma - Fully Assessed Reason for Visit: Follow Up [171] Primary Visit Diagnosis:Right groin pain [R10.31] Prescriptions as of 04/11/2021 - budesonide/formoterol fumarate (SYMBICORT INHALATION) Inhale as instructed. - tiotropium bromide (SPIRIVA RESPIMAT INHALATION) Inhale as instructed. - leflunomide (ARAVA) 20 mg tablet Take 20 mg by mouth once daily. - doxycycline hyclate (VIBRAMYCIN) 100 mg capsule Take 100 mg by mouth twice daily. - Risedronate 150 mg tablet Take 150 mg by mouth once every month. In AM with cup of water on empty stomach. Nothing else by mouth and stay upright for 30 min. - methotrexate sodium 25 mg/mL soln once each week. - montelukast (SINGULAIR) 10 mg tablet once daily. - folic acid 1 mg tablet once daily. - amoxicillin (POLYMOX, AMOXIL) 500 mg capsule once daily. - predniSONE (DELTASONE) 5 mg tablet twice daily. - BD TUBERCULIN SYRINGE 1 mL 25 x 5/8 syrg - Multivitamin capsule Take 1 capsule by mouth once daily. - GLUCOSAMINE/CHONDROITI N SULF A (GLUCOSAMINE-CHONDROIT IN ORAL) Take by mouth. - mometasone (NASONEX) 50 mcg/actuation nasal spray Use 2 Sprays in the nose once daily. Problem List As Of Date 04/07/2021 Noted Resolved Incisional hernia, without obstruction or gangr*11/11/2015 Letter Text Encounter Status:Closed by FAVIO BAÑUELOS on 04/11/[address] [facility] CT ABD/PEL WO IVCONon 2020 CT ABD/PEL WO IVCON * * *Final Report* * * DATE OF EXAM: Apr 05 2021 12:44PM [facility] 0531 - CT ABD/PEL WO IVCON / PROCEDURE REASON: Abdominal mass of other site * * * * Physician Interpretation * * * * EXAMINATION: CT ABDOMEN AND PELVIS WITHOUT IV CONTRAST CLINICAL HISTORY: Right lower quadrant pain TECHNIQUE: Non-IV contrast imaging of the abdomen and pelvis was performed using standard technique, scanning from just above the dome of the diaphragm to the symphysis pubis. Unenhanced imaging is limited for the evaluation of some intra-abdominal and pelvic pathology. MQ: [id number]_3 Contrast: IV: None Oral: 50 ml of 50ML Omnipaque [address] Radiation dose: Integrated Dose-length product (DLP) for this visit = 766 mGy*cm. CT Dose Reduction Employed: Automated exposure control(AEC) and iterative recon COMPARISON: None. RESULT: Abdomen / Pelvis: Liver: Low-density foci within the liver are at or near 1 cm and likely benign. No suspicious hepatic lesion. Biliary: No biliary dilatation. The gallbladder is unremarkable Spleen: No splenomegaly. Pancreas: Unremarkable. Adrenals: No mass. Kidneys: No hydronephrosis or finding to suggest a solid mass in the unenhanced kidney. Mid pole 3 cm cyst. A few punctate stones within the kidneys. GI Tract: No bowel dilation. The appendix appears normal. Mild nonspecific thickening of the rectal sigmoid colon. No significant pericolonic inflammatory change Lymph Nodes: No lymphadenopathy. Mesentery/peritoneum: No ascites. Retroperitoneum: No mass. Vasculature: The aorta is normal in caliber Pelvis: No mass or ascites. Bones/Soft Tissues: Grade 1 spondylolisthesis of L4 on L5. For numbering purposes, L4-5 is at the level of the iliac crest. 5 lumbar type vertebrae. Lower thorax: Minimal atelectasis and bronchiectasis at both lung bases Sewer Repairer (topogram) images: No additional findings. IMPRESSION: Mild nonspecific wall thickening of the rectosigmoid colon. Colitis cannot be excluded. Minimal atelectasis and bronchiectasis at both lung bases. Nephrolithiasis. Left renal cyst. Low-density hepatic foci are incompletely characterized. Likely benign Fabric Sourcer: PSCB Transcribe Date/Time: Apr 05 2021 1:33P Dictated by : LUDY DODD MD This examination was interpreted and the report reviewed and electronically signed by: LUDY DODD MD on Apr 05 2021 1:43PM EST [id number] Normal [facility] CNOVon 03-31-2021 CNOV Office Visit (GENSWS ) SHIVANI BONILLA ([id number]) 1950 Date Time Provider Department 8/19/21 2:50 PM FAVIO BAÑUELOS During your visit today, we recorded the following information about you: Temperature Pulse Blood pressure Weight 98.7 degrees 78/minute 138/80 104.3 kg Height 1.778 m Nora King GIANLUCA 03/31/2021 3:13 PM Signed REVIEW OF SYSTEMS: General: The patient denies fatigue, denies weight loss, denies weight gain, denies feeling hot, and denies feelings of cold. Eyes: The patient denies glaucoma, denies eye injury/surgery, wears glasses or contacts. Ear/Nose/Throat: The patient NOTES allergies, NOTES hayfever, denies ear infections, and denies bloody noses. Cardiovascular: The patient denies chest pain, denies heart disease, denies high blood pressure,denies cardiac stent, denies prior heart attack, denies irregular heart beat, denies high cholesterol, denies poor circulation, denies heart failure, other cardiac issues, denies claudication, denies cold feet, denies peripheral arterial stent. Respiratory: The patient denies tuberculosis, denies pneumonia, denies frequent cough, denies pulmonary embolism, NOTES shortness of breath, and denies coughing up blood. Gastrointestinal: The patient denies difficulty swallowing, NOTES acid reflux, denies ulcers, denies vomiting, denies jaundice/hepatitis, denies gallbladder problems, denies black or tarry stools, denies hemorrhoids, denies bleeding from rectum, denies diverticulitis, denies constipation, denies diarrhea, denies loss of stool control, and denies hernias. Kidney/Bladder: The patient NOTES kidney stones, denies urine infections, and denies bloody urine. Skin: The patient denies a history of skin cancer, denies bleeding/changing moles, and denies a history of skin rash. Neurologic: The patient denies a history of epilepsy/convulsions, denies headaches, denies head/spinal injuries, and denies stroke/TIA. Psychiatric: The patient denies psychiatric medications, denies depression, and denies voices, denies substance abuse. Endocrine: The patient denies thyroid disorders, denies diabetes, and denies hormonal problems. Hematologic: The patient denies a history of bruising, denies bleeding, and denies anemia, denies blood clots. Infections: The patient NOTES a history of measles and mumps, denies rheumatic fever, and denies sexually transmitted diseases. Musculoskeletal: The patient denies back pain/injury, denies back problems, denies sciatica, NOTES knee/foot trouble, NOTES arthritis, or denies gout. When was patient's last Mammogram screening? N/A Last Colonoscopy: 02/2020 Nora Bañuelos MD 04/05/2021 6:42 AM Signed HISTORY AND PHYSICAL Shivani Yanjeremiah 1950 REFERRING PHYSICIAN: Self CHIEF COMPLAINT: Consult (Possible Right Inguinal Hernia repair) HPI: The patient is a 71 year old male with a complaint of right groin discomfort. The patient returns with concern of a recurrent hernia. The patient notes discomfort in his right inguinal area. He has noticed this pain for approximately 6 months. Notes that it hurts when he moves or when he is sitting. He notes it is worse when he is lifting. He states he feels like he can sense the edge of the mesh in that location. I had seen the patient in the past for recurrent incisional hernia. He also had inguinal pain and a questionable left inguinal hernia on CT scan at that time. On November 08, 2015, I performed a laparoscopic lysis of adhesions laparoscopic removal of a previous 8 x 7 cm piece of mesh and placement of a 17.8 x 22.9 cm ventral light mesh. Laparoscopic inspection at that time demonstrated no true inguinal hernias on the right or left side. The patient is being seen by me today at the request of Dr. Ganga Acosta for my opinion and advice regarding right inguinal pain, questionable right inguinal hernia. PAST MEDICAL HISTORY Diagnosis Date - Asthma - Prostate cancer (HCC) - Rheumatoid arthritis (HCC) PAST SURGICAL HISTORY Procedure Laterality Date - CARPAL TUNNEL 82,83 x2 each wrist - COLONOSCOPY 08/13/2009 - FOOT SURGERY HX Right 07/2020 - FOOT SURGERY HX Right 11/29/2020 - INGUINAL HERNIA REPAIR HX Right 09/13/2014 - LX REPAIR RECURRENT VENTRAL HERNIA 11/08/2015 Laparoscopic repair of recurrent ventral hernia - PAST SURGICAL HISTORY OF 01/11/1993 kidney stone removal - PAST SURGICAL HISTORY OF 08/13/1997 cardiac catherization - PAST SURGICAL HISTORY OF Left 08/13/2005 knee revision - REMOVAL OF PROSTATE 02/10/2013 - TONSILLECTOMY HX 08/13/1977 - TOTAL KNEE REPLACEMENT Left 08/13/2004 - TOTAL KNEE REPLACEMENT Right 08/13/2014 Current Outpatient Medications Medication Sig - budesonide/formoterol fumarate (SYMBICORT INHALATION) Inhale as instructed. - tiotropium bromide (more content not included)... Normal [facility] CR Chest PA/LATon 07-02-2018 CR Chest PA/LAT Patient Name: SHIVANI REYNOLDS Diagnostic Radiology Exam Date/Time 07/02/2018 11:36:36 EST Exam CR Chest PA/LAT Ordering Physician DO ACOSTA EUGENE F. Accession Number [id number] CPT4 Codes 32728 () Reason For Exam goldsmith Report Chest, [...] BRIAN Transcribed Date and Time: 07/02/2018 2:10 Normal [facility] NM Myocardial Perf Imaging M ulti Specton 06-24-2018 NM Myocardial Perf Imaging Multi Spect Patient Name: SHIVANI BONILLA Nuc Med Exam Date/Time 06/24/2018 08:54:45 EST Exam NM Myocardial Perf Imaging Multi Spect Ordering Physician DO ACOSTA EUGENE F. Accession Number [id number] CPT4 Codes 95344 () Reason For Exam shortness of breath Report Nuclear Stress Myocardial Perfusion Study Regadenoson Protocol Gated SPECT Patient: Shivani Bonilla Height: (70 in) Weight: (235 lb) : 1950 Age: 68 Gender: M Study Date: 06/24/2018 Accession#: Patient Room #: *ORDERING PHYSICIAN: Ganga Haas *FELLOW: Eduarda Siu *SUPERVISING PHYSICIAN: Demetrio Zamora *RN: Perlita Reddy *NUCLEAR TECH: * Jean-Paul MaravillaREADING PHYSICIAN: * Byron Marin MD, [facility] --------- --- Indications: Dyspnea on exertion. --------- --- Summary: 1. Probably normal vasodilator stress [...] normal. No LV regional wall motion abnormalities. --------- --- History: Exertional dyspnea. Medications: Pantoprazole (Protonix). Allergies: No known allergies. No cardiac medications. Asthma. Patient is NPO per policy. No caffeine per policy. Medication list reviewed with patient and no contraindicated medications have been taken. --------- --- Study data: The patient's lungs are [...] Administered medications: None. Discharge: Discharge instruction given. --------- --- Procedure data: Initial setup. The patient [...] Exercise for 4 minutes completed by hand roastmaster. The infusion was terminated due to end of protocol. A pharmacologic approach was used because the patient was physically unable to exercise. --------- --- Baseline ECG: Normal sinus rhythm. Stress protocol: + +--+---- ---------+--------+ !Stage !HR!BP (mmHg) !Symptoms! + +--+---- ---------+--------+ !Rest !64!167/101 (123)!None ! + +--+---- ---------+--------+ !Peak stress !89!142/89 (107) !None ! + +--+---- ---------+--------+ !Recovery !85!127/82 (97) !None ! + +--+---- ---------+--------+ !Late recovery!78!143/88 (106) !None ! + +--+---- ---------+--------+ Stress results: Peak heart rate during stress was 89 bpm. (59% of maximal predicted heart rate). The maximal predicted heart rate was 151 bpm.The heart rate response to stress is normal. There is an appropriate response to stress. The rate-pressure product for the peak heart rate and blood pressure was 27556 mm Hg/min. The patient experienced no chest pain during stress. Stress ECG: There was no ischemic ST depression. There are no stress arrhythmias or conduction abnormalities. The stress ECG is negative for ischemia. Nonspecific ST: <0.5 mm. Isotope administration: + +------ + + !Stage !Rest !Stress ! + +------ + + !Agent !Tc[99m]-sestamibi!Tc[ 99m]-sestamibi ! + +------ + + !Dose !8.3 mCi !34.1 mCi ! + +------ + + !Date !06/24/2018 !06/24/2018 ! + +------ + + !Injection time!07:45 AM !08:33 AM ! + +------ + + !Route !IV !IV ! + +------ + + !Injected by !Diana !Bs ! + +------ + + !Injection at ! !1 min before end of exercise! + +------ + + Image properties: Imaging information: The [...] Signed by: MD. MARIN FACC, MARK A [facility] US Abdomen Limitedon --2 018 US Abdomen Limited Patient Name: SHIVANI REYNOLDS Ultrasound Exam Date/Time 06/05/2018 08:20:00 EDT Exam US Abdomen Limited Ordering Physician DO ACOSTA EUGENE F. Accession Number [id number] CPT4 Codes 19862 () Reason For Exam bloating Report ULTRASOUND ABDOMEN LIMITED CLINICAL INDICATION: Bloating TECHNIQUE: Ultrasound of the right upper quadrant COMPARISON: Ultrasound from 09/02/2013 FINDINGS: Somewhat limited study due to bowel gas and body habitus. Liver: Generalized increased echogenicity corresponding to fatty infiltration. The liver is enlarged. Two small liver cysts measuring up to 1.1 cm. Gallbladder: Normal. Per the agricultural research technologist, the sonographic Carty's sign was negative. [...] NICHOLAS Transcribed Date and Time: 06/05/2018 9:24 Normal [facility] Gram stain for investigation of transfusion reaction Microscopic observation Gram stain Nom (Unsp spec) [facility] Work Phone: XR FOOT GENERAL 3V AP/LAT/OB L RIGHT [facility] Vital Signs Date Time Vital Sign Value Performing Clinician Facility 04-24-2025 09:56-0400 Body height 177.8 cm WhatsNexxon DO Work Phone: [facility] 04-24-2025 09:56-0400 Body mass index (BMI) [Ratio] 31.71 kg/m2 Jonah Cuba DO Work Phone: [facility] 04-24-2025 09:56-0400 Body weight 100.25 kg Jonah Cuba DO Work Phone: [facility] 04-24-2025 09:56-0400 Diastolic blood pressure 63 mm[Hg] WhatsNexxon DO Work Phone: [facility] 04-24-2025 09:56-0400 Heart rate 82 /min WhatsNexxon DO Work Phone: [facility] 04-24-2025 09:56-0400 SaO2% (BldA) [Mass fraction] 96 % Jonah Cuba DO Work Phone: [facility] 04-24-2025 09:56-0400 Systolic blood pressure 96 mm[Hg] Jonah Cuba DO Work Phone: [facility] 04-09-2025 09:28-0400 Body height 177.8 cm Mckinley Guzman DPM Work Phone: [facility] 04-09-2025 09:28-0400 Body mass index (BMI) [Ratio] 31.71 kg/m2 Mckinley Thomas DPM Work Phone: [facility] 04-09-2025 09:28-0400 Body weight 100.25 kg Mckinley Thomas DPM Work Phone: [facility] 04-09-2025 09:28-0400 Respiratory rate 18 /min Mckinley Guzman DPM Work Phone: [facility] 04-02-2025 09:02-0400 Body mass index (BMI) [Ratio] 32.2 kg/m2 Dr. Ganga Acosta DO Work Phone: [facility] 04-02-2025 09:02-0400 Body temperature 97.3 [degF] Dr. Ganga Acosta DO Work Phone: [facility] 04-02-2025 09:02-0400 Body weight 101.[address] Ganga Acosta DO Work Phone: [facility] 04-02-2025 09:02-0400 Diastolic blood pressure 81 mm[Hg] Dr. Ganga Acosta DO Work Phone: [facility] 04-02-2025 09:02-0400 Heart rate 76 /min Dr. Ganga Acosta DO Work Phone: [facility] 04-02-2025 09:02-0400 Respiratory rate 18 /min Dr. Ganga Acosta DO Work Phone: [facility] 04-02-2025 09:02-0400 SaO2% (BldA) [Mass fraction] 95 % Dr. Ganga Acosta DO Work Phone: [facility] 04-02-2025 09:02-0400 Systolic blood pressure 131 mm[Hg] Dr. Ganga Acosta DO Work Phone: [facility] 03-25-2025 13:41-0400 Body height 177.8 cm Jonah Maieron DO Work Phone: [facility] 03-25-2025 13:41-0400 Body mass index (BMI) [Ratio] 31.71 kg/m2 Jonah Cuba DO Work Phone: [facility] 03-25-2025 13:41-0400 Body weight 100.25 kg Jonah Cuba DO Work Phone: [facility] 03-25-2025 13:41-0400 Respiratory rate 14 /min Jonah Maieron DO Work Phone: [facility] 02-20-2025 11:35-0400 Body temperature 97.6 [degF] Dr. Ganga Acosta DO Work Phone: [facility] 02-20-2025 11:35-0400 Diastolic blood pressure 63 mm[Hg] Dr. Ganga Acosta DO Work Phone: [facility] 02-20-2025 11:35-0400 Heart rate 60 /min Dr. Ganga Acosta DO Work Phone: [facility] 02-20-2025 11:35-0400 Respiratory rate 24 /min Dr. Ganga Acosta DO Work Phone: [facility] 02-20-2025 11:35-0400 SaO2% (BldA) [Mass fraction] 94 % Dr. Ganga Acosta DO Work Phone: [facility] 02-20-2025 11:35-0400 Systolic blood pressure 95 mm[Hg] Dr. Ganga Acosta DO Work Phone: [facility] 02-20-2025 09:35-0400 Body height 177.[address] Ganga Acosta DO Work Phone: [facility] 02-20-2025 09:35-0400 Body mass index (BMI) [Ratio] 32.3 kg/m2 Dr. Ganga Acosta DO Work Phone: [facility] 02-20-2025 09:35-0400 Body weight 102.[address] Ganga Acosta DO Work Phone: [facility] 02-18-2025 13:12-0400 Body height 177.8 cm Jonah Cuba DO Work Phone: [facility] 02-18-2025 13:12-0400 Body mass index (BMI) [Ratio] 31.71 kg/m2 Jonah Cuba DO Work Phone: [facility] 02-18-2025 13:12-0400 Body weight 100.25 kg Jonah Cuba DO Work Phone: [facility] 02-18-2025 13:12-0400 Respiratory rate 18 /min Jonah Cuba DO Work Phone: [facility] 02-16-2025 09:29-0400 Body height 177.8 cm Shaan Peitere DO Work Phone: [facility] 02-16-2025 09:29-0400 Body mass index (BMI) [Ratio] 31.71 kg/m2 Shaan Peiffer DO Work Phone: [facility] 02-16-2025 09:29-0400 Body temperature 98.2 [degF] Shaan Peiffer DO Work Phone: [facility] 02-16-2025 09:29-0400 Body weight 100.25 kg Shaan Peiffer DO Work Phone: [facility] 02-12-2025 14:05-0400 Body height 177.8 cm Mckinley Thomas DPM Work Phone: [facility] 02-12-2025 14:05-0400 Body mass index (BMI) [Ratio] 32.28 kg/m2 Mckinley Thomas DPM Work Phone: [facility] 02-12-2025 14:05-0400 Body weight 102.06 kg Mckinley Thomas DPM Work Phone: [facility] 02-12-2025 14:05-0400 Respiratory rate 18 /min Mckinley Thomas DPM Work Phone: [facility] 02-10-2025 12:59-0400 Body height 177.[address] Ganga Acosta DO Work Phone: [facility] 02-10-2025 12:59-0400 Body mass index (BMI) [Ratio] 33.1 kg/m2 Dr. Ganga Acosta DO Work Phone: [facility] 02-10-2025 12:59-0400 Body temperature 97.2 [degF] Dr. Ganga Acosta DO Work Phone: [facility] 02-10-2025 12:59-0400 Body weight 104.[address] Ganga Acosta DO Work Phone: [facility] 02-10-2025 12:59-0400 Diastolic blood pressure 79 mm[Hg] Dr. Ganga Acosta DO Work Phone: [facility] 02-10-2025 12:59-0400 Heart rate 71 /min Dr. Ganga Acosta DO Work Phone: [facility] 02-10-2025 12:59-0400 Respiratory rate 18 /min Dr. Ganga Acosta DO Work Phone: [facility] 02-10-2025 12:59-0400 SaO2% (BldA) [Mass fraction] 95 % Dr. Ganga Acosta DO Work Phone: [facility] 02-10-2025 12:59-0400 Systolic blood pressure 129 mm[Hg] Dr. Ganga Acosta DO Work Phone: [facility] 02-03-2025 13:09-0400 Body height 177.8 cm Shaan Mayorga DO Work Phone: [facility] 02-03-2025 13:09-0400 Body mass index (BMI) [Ratio] 33.72 kg/m2 Shaan Mayorga DO Work Phone: [facility] 02-03-2025 13:09-0400 Body weight 106.59 kg Shaan Mayorga DO Work Phone: [facility] 02-03-2025 13:09-0400 Respiratory rate 18 /min Shaan Mayorga DO Work Phone: [facility] 01-29-2025 14:55-0400 Body height 177.8 cm Mckinley Thomas DPM Work Phone: [facility] 01-29-2025 14:55-0400 Body mass index (BMI) [Ratio] 33.72 kg/m2 Mckinley Thomas DPM Work Phone: [facility] 01-29-2025 14:55-0400 Body temperature 98.29 [degF] Mckinley Thomas DPM Work Phone: [facility] 01-29-2025 14:55-0400 Body weight 106.59 kg Mckinley Thomas DPM Work Phone: [facility] 01-15-2025 13:46-0400 Body height 177.8 cm Mckinley Thomas DPM Work Phone: [facility] 01-15-2025 13:46-0400 Body mass index (BMI) [Ratio] 33.43 kg/m2 Mckinley Thomas DPM Work Phone: [facility] 01-15-2025 13:46-0400 Body temperature 98.29 [degF] Mckinley Thomas DPM Work Phone: [facility] 01-15-2025 13:46-0400 Body weight 105.69 kg Mckinley Thomas DPM Work Phone: [facility] 01-12-2025 10:37-0400 Body height 177.8 cm Erickson Haile MD Work Phone: [facility] [address] 01-12-2025 10:37-0400 Body mass index (BMI) [Ratio] 33.72 kg/m2 Erickson Haile MD Work Phone: [facility] [address] 01-12-2025 10:37-0400 Body weight 106.59 kg Erickson Haile MD Work Phone: [phone] [place] [address] 12-18-2024 13:43-0400 Body height 177.8 cm Mckinley Guzman DPM Work Phone: [facility] 12-18-2024 13:43-0400 Body mass index (BMI) [Ratio] 33.72 kg/m2 Mckinley Guzman DPM Work Phone: [facility] 12-18-2024 13:43-0400 Body weight 106.59 kg Mckinley Guzman DPM Work Phone: [facility] 12-18-2024 13:43-0400 Respiratory rate 20 /min Mckinley Guzman DPM Work Phone: [facility] 11-09-2024 18:20-0400 Body temperature 95.9 [degF] Dr. Ganga Acosta DO Work Phone: [facility] 11-09-2024 18:20-0400 Diastolic blood pressure 79 mm[Hg] Dr. Ganga Acosta DO Work Phone: [facility] 11-09-2024 18:20-0400 Heart rate 63 /min Dr. Ganga Acosta DO Work Phone: [facility] 11-09-2024 18:20-0400 Respiratory rate 20 /min Dr. Ganga Acosta DO Work Phone: [facility] 11-09-2024 18:20-0400 SaO2% (BldA) [Mass fraction] 96 % Dr. Ganga Acosta DO Work Phone: [facility] 11-09-2024 18:20-0400 Systolic blood pressure 134 mm[Hg] Dr. Ganga Acosta DO Work Phone: [facility] 11-09-2024 16:51-0400 Inhaled oxygen flow rate 2 L/min Dr. Ganga Acosta DO Work Phone: [facility] 11-09-2024 16:19-0400 Body mass index (BMI) [Ratio] 33.8 kg/m2 Dr. Ganga Acosta DO Work Phone: [facility] 11-09-2024 16:19-0400 Body weight 106.[address] Ganga Acosta DO Work Phone: [facility] 11-09-2024 15:52-0400 Body height 177.[address] Ganga Acosta DO Work Phone: [facility] 10-30-2024 11:14-0400 Body height 177.8 cm Mckinley Thomas DPM Work Phone: [facility] 10-30-2024 11:14-0400 Body mass index (BMI) [Ratio] 33.72 kg/m2 Mckinley Thomas DPM Work Phone: [facility] 10-30-2024 11:14-0400 Body temperature 98.29 [degF] Mckinley Thomas DPM Work Phone: [facility] 10-30-2024 11:14-0400 Body weight 106.59 kg Mckinley Thomas DPM Work Phone: [facility] 10-09-2024 10:34-0500 Body height 177.8 cm Mckinley Thomas DPM Work Phone: [facility] 10-09-2024 10:34-0500 Body mass index (BMI) [Ratio] 33 kg/m2 Mckinley Thomas DPM Work Phone: [facility] 10-09-2024 10:34-0500 Body weight 104.33 kg Mckinley Thomas DPM Work Phone: [facility] 10-09-2024 10:34-0500 Respiratory rate 17 /min Mckinley Thomas DPM Work Phone: [facility] 09-18-2024 09:53-0500 Body height 177.8 cm Mckinley Thomas DPM Work Phone: [facility] 09-18-2024 09:53-0500 Body mass index (BMI) [Ratio] 33 kg/m2 Mckinley Thomas DPM Work Phone: [facility] 09-18-2024 09:53-0500 Body weight 104.33 kg Mckinley Thomas DPM Work Phone: [facility] 09-18-2024 09:53-0500 Respiratory rate 16 /min Mckinley Thomas DPM Work Phone: [facility] 09-04-2024 13:01-0500 Body height 177.8 cm Mckinley Thomas DPM Work Phone: [facility] 09-04-2024 13:01-0500 Body mass index (BMI) [Ratio] 33 kg/m2 Mckinley Thomas DPM Work Phone: [facility] 09-04-2024 13:01-0500 Body weight 104.33 kg Mckinley Thomas DPM Work Phone: [facility] 09-04-2024 13:01-0500 Respiratory rate 17 /min Mckinley Thomas DPM Work Phone: [facility] 08-28-2024 13:48-0500 Body height 177.8 cm Mckinley Thomas DPM Work Phone: [facility] 08-28-2024 13:48-0500 Body mass index (BMI) [Ratio] 33 kg/m2 Mckinley Thomas DPM Work Phone: [facility] 08-28-2024 13:48-0500 Body weight 104.33 kg Mckinley Thomas DPM Work Phone: [facility] 08-28-2024 13:48-0500 Respiratory rate 20 /min Mckinley Thomas DPM Work Phone: [facility] 08-11-2024 14:42-0500 Body height 177.8 cm Ganga Acosta DO Work Phone: [facility] 08-11-2024 14:42-0500 Body mass index (BMI) [Ratio] 34.67 kg/m2 Ganga Acosta DO Work Phone: [facility] [address] 08-11-2024 14:42-0500 Body temperature 97.9 [degF] Ganga Acosta DO Work Phone: [facility] [address] 08-11-2024 14:42-0500 Body weight 109.59 kg Ganga Acosta DO Work Phone: [facility] 08-11-2024 14:42-0500 Diastolic blood pressure 67 mm[Hg] Ganga Acosta DO Work Phone: [facility] 08-11-2024 14:42-0500 Heart rate 93 /min Ganga Acosta DO Work Phone: [facility] 08-11-2024 14:42-0500 SaO2% (BldA) [Mass fraction] 96 % Ganga Karla DO Work Phone: [facility] 08-11-2024 14:42-0500 Systolic blood pressure 106 mm[Hg] Ganga Acosta DO Work Phone: [facility] 08-07-2024 13:16-0500 Body height 177.8 cm Mckinley Thomas DPM Work Phone: [facility] 08-07-2024 13:16-0500 Body mass index (BMI) [Ratio] 33 kg/m2 Mckinley Guzman DPM Work Phone: [facility] 08-07-2024 13:16-0500 Body temperature 98.29 [degF] Mckinley Alonzoman DPM Work Phone: [facility] 08-07-2024 13:16-0500 Body weight 104.33 kg Mckinley Alonzoman DPM Work Phone: [facility] 07-16-2024 08:58-0500 Body mass index (BMI) [Ratio] 33 kg/m2 Dr. Ganga Acosta DO Work Phone: [facility] 07-16-2024 08:58-0500 Body temperature 95.9 [degF] Dr. Ganga Acosta DO Work Phone: [facility] 07-16-2024 08:58-0500 Body weight 104.[address] Ganga Acosta DO Work Phone: [facility] 07-16-2024 08:58-0500 Diastolic blood pressure 79 mm[Hg] Dr. Ganga Acosta DO Work Phone: [facility] 07-16-2024 08:58-0500 Heart rate 76 /min Dr. Ganga Acosta DO Work Phone: [facility] 07-16-2024 08:58-0500 Respiratory rate 20 /min Dr. Ganga Acosta DO Work Phone: [facility] 07-16-2024 08:58-0500 SaO2% (BldA) [Mass fraction] 98 % Dr. Ganga Acosta DO Work Phone: [facility] 07-16-2024 08:58-0500 Systolic blood pressure 120 mm[Hg] Dr. Ganga Acosta DO Work Phone: [facility] 07-08-2024 11:27-0500 Body height 177.8 cm Mckinley Thomas DPM Work Phone: [facility] 07-08-2024 11:27-0500 Body mass index (BMI) [Ratio] 30.85 kg/m2 Mckinley Thomas DPM Work Phone: [facility] 07-08-2024 11:27-0500 Body weight 97.52 kg Mckinley Thomas DPM Work Phone: [facility] 07-08-2024 11:27-0500 Respiratory rate 19 /min Mckinley Thomas DPM Work Phone: [facility] 06-24-2024 08:08-0500 Body height 177.8 cm Mckinley Thomas DPM Work Phone: [facility] 06-24-2024 08:08-0500 Body mass index (BMI) [Ratio] 30.85 kg/m2 Mckinley Thomas DPM Work Phone: [facility] 06-24-2024 08:08-0500 Body weight 97.52 kg Mckinley Thomas DPM Work Phone: [facility] 06-24-2024 08:08-0500 Respiratory rate 18 /min Mckinley Thomas DPM Work Phone: [facility] 06-05-2024 11:03-0400 Body height 177.8 cm Mckinley Thomas DPM Work Phone: [facility] 06-05-2024 11:03-0400 Body mass index (BMI) [Ratio] 30.85 kg/m2 Mckinley Thomas DPM Work Phone: [facility] 06-05-2024 11:03-0400 Body weight 97.52 kg Mckinley Thomas DPM Work Phone: [facility] 06-05-2024 11:03-0400 Respiratory rate 16 /min Mckinley Thomas DPM Work Phone: [facility] 05-13-2024 14:36-0400 Body height 177.8 cm Iram Milian PA-C Work Phone: [facility] [address] 05-13-2024 14:36-0400 Body mass index (BMI) [Ratio] 32.28 kg/m2 Iram Milian PA-C Work Phone: [facility] [address] 05-13-2024 14:36-0400 Body temperature 97 [degF] Iram Milian PA-C Work Phone: [facility] [address] 05-13-2024 14:36-0400 Body weight 102.06 kg Iram Milian PA-C Work Phone: [facility] [address] 05-13-2024 14:36-0400 Diastolic blood pressure 80 mm[Hg] Iram Milian PA-C Work Phone: [facility] [address] 05-13-2024 14:36-0400 Heart rate 93 /min Iram Milian PA-C Work Phone: [facility] [address] 05-13-2024 14:36-0400 SaO2% (BldA) [Mass fraction] 97 % Iram Milian PA-C Work Phone: [facility] [address] 05-13-2024 14:36-0400 Systolic blood pressure 118 mm[Hg] Iram Milian PA-C Work Phone: [facility] 05-01-2024 13:18-0400 Body height 177.8 cm Mckinley Thomas DPM Work Phone: [facility] 05-01-2024 13:18-0400 Body mass index (BMI) [Ratio] 30.85 kg/m2 Mckinley Thomas DPM Work Phone: [facility] 05-01-2024 13:18-0400 Body temperature 98.29 [degF] Mckinley Thomas DPM Work Phone: [facility] 05-01-2024 13:18-0400 Body weight 97.52 kg Mckinley Thomas DPM Work Phone: [facility] 04-03-2024 14:59-0400 Body height 177.8 cm Mckinley Thomas DPM Work Phone: [facility] 04-03-2024 14:59-0400 Body mass index (BMI) [Ratio] 32.43 kg/m2 Mckinley Thomas DPM Work Phone: [facility] 04-03-2024 14:59-0400 Body temperature 98.29 [degF] Mckinley Thomas DPM Work Phone: [facility] 04-03-2024 14:59-0400 Body weight 102.51 kg Mckinley Thomas DPM Work Phone: [facility] 11-29-2023 10:34-0400 Body height 177.8 cm Mckinley Thomas DPM Work Phone: [facility] 11-29-2023 10:34-0400 Body mass index (BMI) [Ratio] 33.72 kg/m2 Mckinley Thomas DPM Work Phone: [facility] 11-29-2023 10:34-0400 Body weight 106.59 kg Mckinley Thomas DPM Work Phone: [facility] 11-29-2023 10:34-0400 Respiratory rate 20 /min Mckinley Thomas DPM Work Phone: [facility] 11-07-2023 11:18-0400 Body temperature 98.24 [degF] DR JOE DURAND MD [facility] 11-07-2023 11:18-0400 Diastolic Blood Pressure Non-Invasive 65 mm[Hg] DR JOE DURAND MD [facility] 11-07-2023 11:18-0400 Heart rate 99 /min DR JOE DURAND MD [facility] 11-07-2023 11:18-0400 Reason For Taking VItal Signs DR JOE DURAND MD [facility] 11-07-2023 11:18-0400 Respiratory rate 16 /min DR JOE DURAND MD [facility] 11-07-2023 11:18-0400 Systolic Blood Pressure Non-Invasive 116 mm[Hg] DR JOE DURAND MD [facility] 11-07-2023 10:29-0400 Heart rate 96 /min DR JOE DURAND MD [facility] 11-07-2023 10:29-0400 Respiratory rate 16 /min DR JOE DURAND MD [facility] 11-07-2023 10:21-0400 Respiratory rate 20 /min DR JOE DURAND MD [facility] 11-07-2023 07:26-0400 Body temperature 97.34 [degF] DR JOE DURAND MD [facility] 11-07-2023 07:26-0400 Diastolic Blood Pressure Non-Invasive 74 mm[Hg] DR JOE DURAND MD [facility] 11-07-2023 07:26-0400 Heart rate 95 /min DR JOE DURAND MD [facility] 11-07-2023 07:26-0400 Reason For Taking VItal Signs DR JOE DURAND MD [facility] 11-07-2023 07:26-0400 Systolic Blood Pressure Non-Invasive 120 mm[Hg] DR JOE DURAND MD [facility] 11-07-2023 06:05-0400 Heart rate 72 /min DR JOE DURAND MD [facility] 11-07-2023 04:30-0400 Body temperature 98.06 [degF] DR JOE DURAND MD [facility] 11-07-2023 04:30-0400 Diastolic Blood Pressure Non-Invasive 79 mm[Hg] DR JOE DURAND MD [facility] 11-07-2023 04:30-0400 Heart rate 87 /min DR JOE DURAND MD [facility] 11-07-2023 04:30-0400 Reason For Taking VItal Signs DR JOE DURAND MD [facility] 11-07-2023 04:30-0400 Systolic Blood Pressure Non-Invasive 116 mm[Hg] DR JOE DURAND MD [facility] 11-06-2023 19:15-0400 Heart rate 68 /min DR JOE DURAND MD [facility] 11-06-2023 17:23-0400 Heart rate 70 /min DR JOE DURAND MD [facility] 11-06-2023 16:24-0400 Body height 177.8 cm DR JOE DURAND MD [facility] 11-06-2023 16:24-0400 Body weight [address] JOE DURAND MD [facility] 11-06-2023 16:24-0400 Body weight 33.21 kg/m2 DR JOE DURAND MD [facility] 11-06-2023 16:22-0400 Heart rate 69 /min DR JOE DURAND MD [facility] 11-06-2023 14:40-0400 Body temperature 97.7 [degF] DR JOE DURAND MD [facility] 11-06-2023 14:35-0400 Respiratory Rate - Anes 13 br/min DR JOE DURAND MD [facility] 11-06-2023 14:30-0400 Respiratory Rate - Anes 14 br/min DR JOE DURAND MD [facility] 11-06-2023 14:25-0400 Respiratory Rate - Anes 15 br/min DR JOE DURAND MD [facility] 11-06-2023 14:15-0400 Body temperature 96.8 [degF] DR JOE DURAND MD [facility] 11-06-2023 13:45-0400 Body temperature 96.8 [degF] DR JOE DURAND MD [facility] 11-06-2023 10:40-0400 Body height 177.[address] JOE DURAND MD [facility] 11-06-2023 10:40-0400 Body temperature 97.88 [degF] DR JOE DURAND MD [facility] 11-06-2023 10:40-0400 Body weight [address] JOE DURAND MD [facility] 11-06-2023 10:40-0400 Heart rate 61 /min DR JOE DURAND MD [facility] 10-18-2023 10:42-0500 Body height 177.8 cm Mckinley Guzman DPM Work Phone: [facility] 10-18-2023 10:42-0500 Body weight 102.06 kg Mckinley Guzman DPM Work Phone: [facility] 10-18-2023 10:42-0500 Respiratory rate 18 /min Mckinley Guzman DPM Work Phone: [facility] 10-01-2023 13:30-0500 Respiratory rate 16 /min Olivia Bridenthal ELECTRONIC FUNDS TRANSFER COORDINATOR - EMBROIDERY ASSISTANT Work Phone: [facility] 10-01-2023 13:30-0500 SaO2% (BldA) [Mass fraction] 96 % Olivia Bridenthal ELECTRONIC FUNDS TRANSFER COORDINATOR - EMBROIDERY ASSISTANT Work Phone: [facility] [address] Comment on above: RA 10-01-2023 13:27-0500 Body height 177.8 cm Olivia Bridenthal ELECTRONIC FUNDS TRANSFER COORDINATOR - EMBROIDERY ASSISTANT Work Phone: [facility] [address] 10-01-2023 13:27-0500 Body mass index (BMI) [Ratio] 33.72 kg/m2 Olivia Bridenthal ELECTRONIC FUNDS TRANSFER COORDINATOR - EMBROIDERY ASSISTANT Work Phone: [facility] [address] 10-01-2023 13:27-0500 Body weight 106.59 kg Olivia Bridenthal ELECTRONIC FUNDS TRANSFER COORDINATOR - EMBROIDERY ASSISTANT Work Phone: [facility] [address] 10-01-2023 13:27-0500 Diastolic blood pressure 76 mm[Hg] Olivia Bridenthal ELECTRONIC FUNDS TRANSFER COORDINATOR - EMBROIDERY ASSISTANT Work Phone: [facility] [address] 10-01-2023 13:27-0500 Heart rate 81 /min Olivia Bridenthal ELECTRONIC FUNDS TRANSFER COORDINATOR - EMBROIDERY ASSISTANT Work Phone: [facility] 10-01-2023 13:27-0500 Systolic blood pressure 115 mm[Hg] Olivia Bey ELECTRONIC FUNDS TRANSFER COORDINATOR - EMBROIDERY ASSISTANT Work Phone: [facility] 09-06-2023 13:10-0500 Body height 177.8 cm Mckinley Guzman DPM Work Phone: [facility] 09-06-2023 13:10-0500 Body weight 102.06 kg Mckinley Alonzoman DPM Work Phone: [facility] 09-06-2023 13:10-0500 Respiratory rate 18 /min Mckinley Alonzoman DPM Work Phone: [facility] 08-22-2023 11:58-0500 Body temperature 98.06 [degF] DR JOE DURAND MD [facility] 08-22-2023 11:58-0500 Diastolic Blood Pressure Non-Invasive 63 mm[Hg] DR JOE DURAND MD [facility] 08-22-2023 11:58-0500 Heart rate 83 /min DR JOE DURAND MD [facility] 08-22-2023 11:58-0500 Reason For Taking VItal Signs DR JOE DURAND MD [facility] 08-22-2023 11:58-0500 Respiratory rate 18 /min DR JOE DURAND MD [facility] 08-22-2023 11:58-0500 Systolic Blood Pressure Non-Invasive 110 mm[Hg] DR JOE DURAND MD [facility] 08-22-2023 10:06-0500 Heart rate 95 /min DR JOE DURAND MD [facility] 08-22-2023 10:06-0500 Respiratory rate 18 /min DR JOE DURAND MD [facility] 08-22-2023 07:48-0500 Body temperature 98.6 [degF] DR JOE DURAND MD [facility] 08-22-2023 07:48-0500 Diastolic Blood Pressure Non-Invasive 74 mm[Hg] DR JOE DURAND MD [facility] 08-22-2023 07:48-0500 Heart rate 81 /min DR JOE DURAND MD [facility] 08-22-2023 07:48-0500 Respiratory rate 18 /min DR JOE DURAND MD [facility] 08-22-2023 07:48-0500 Systolic Blood Pressure Non-Invasive 155 mm[Hg] DR JOE DURAND MD [facility] 08-22-2023 06:10-0500 Heart rate 90 /min DR JOE DURAND MD [facility] 08-22-2023 03:45-0500 Body temperature 98.06 [degF] DR JOE DURAND MD [facility] 08-22-2023 03:45-0500 Diastolic Blood Pressure Non-Invasive 68 mm[Hg] DR JOE DURAND MD [facility] 08-22-2023 03:45-0500 Heart rate 88 /min DR JOE DURAND MD [facility] 08-22-2023 03:45-0500 Reason For Taking VItal Signs DR JOE DURAND MD [facility] 08-22-2023 03:45-0500 Systolic Blood Pressure Non-Invasive 121 mm[Hg] DR JOE DURAND MD [facility] 08-21-2023 23:47-0500 Heart rate 91 /min DR JOE DURAND MD [facility] 08-21-2023 21:25-0500 Heart rate 97 /min DR JOE DURAND MD [facility] 08-21-2023 21:25-0500 Reason For Taking VItal Signs DR JOE DURAND MD [facility] 08-21-2023 15:45-0500 Heart rate 87 /min DR JOE DURAND MD [facility] 08-21-2023 11:18-0500 Body height 177.[address] JOE DURAND MD [facility] 08-21-2023 11:18-0500 Body weight [address] JOE DURAND MD [facility] 08-21-2023 11:18-0500 Body weight 31.63 kg/m2 DR JOE DURAND MD [facility] 08-21-2023 10:02-0500 Body temperature 97.52 [degF] DR JOE DURAND MD [facility] 08-21-2023 10:00-0500 Respiratory Rate - Anes 0 br/min DR JOE DURAND MD [facility] 08-21-2023 09:55-0500 Respiratory Rate - Anes 4 br/min DR JOE DURAND MD [facility] 08-21-2023 09:50-0500 Respiratory Rate - Anes 21 br/min DR JOE DURAND MD [facility] 08-21-2023 09:45-0500 Body temperature 96.1 [degF] DR JOE DURAND MD [facility] 08-21-2023 09:40-0500 Body temperature 96.12 [degF] DR JOE DURAND MD [facility] 08-21-2023 09:35-0500 Body temperature 96.15 [degF] DR JOE DURAND MD [facility] 08-21-2023 07:14-0500 Body height 177.[address] JOE DURAND MD [facility] 08-21-2023 07:14-0500 Body weight [address] JOE DURAND MD [facility] 08-21-2023 07:14-0500 Heart rate 74 /min DR JOE DURAND MD [facility] 08-15-2023 11:26-0500 Body height 177.8 cm Mckinley Guzman DPM Work Phone: [facility] 08-15-2023 11:26-0500 Body weight 102.06 kg Mckinley Guzman DPM Work Phone: [facility] 08-15-2023 11:26-0500 Respiratory rate 16 /min Mckinley Guzman DPM Work Phone: [facility] 08-07-2023 13:33-0500 Diastolic blood pressure 70 mm[Hg] Ganga Acosta DO Work Phone: [facility] 08-07-2023 13:33-0500 Heart rate 68 /min Ganga Acosta DO Work Phone: [facility] 08-07-2023 13:33-0500 Systolic blood pressure 118 mm[Hg] Ganga Acosta DO Work Phone: [facility] 08-07-2023 12:57-0500 Body height 177.8 cm Ganga Acosta DO Work Phone: [facility] [address] 08-07-2023 12:57-0500 Body mass index (BMI) [Ratio] 32.28 kg/m2 Ganga Acosta DO Work Phone: [facility] [address] 08-07-2023 12:57-0500 Body temperature 97.3 [degF] Ganga Acosta DO Work Phone: [facility] [address] 08-07-2023 12:57-0500 Body weight 102.06 kg Ganga Acosta DO Work Phone: [facility] [address] 08-07-2023 12:57-0500 SaO2% (BldA) [Mass fraction] 96 % Ganga Acosta DO Work Phone: [facility] 07-27-2023 13:41-[address] JOE DURAND MD [facility] 07-27-2023 13:41-0500 Body height 177.[address] JOE DURAND MD [facility] 07-27-2023 13:41-0500 Body weight [address] JOE DURAND MD [facility] 07-27-2023 13:41-0500 Diastolic Blood Pressure Non-Invasive 78 mm[Hg] DR JOE DURAND MD [facility] 07-27-2023 13:41-0500 Heart rate 70 /min DR JOE DURAND MD [facility] 07-27-2023 13:41-0500 Respiratory rate 20 /min DR JOE DURAND MD [facility] 07-27-2023 13:41-0500 Systolic Blood Pressure Non-Invasive 124 mm[Hg] DR JOE DURAND MD [facility] 05-07-2023 12:59-0400 Body height 177.8 cm Ganga Acosta DO Work Phone: [facility] [address] 05-07-2023 12:59-0400 Body mass index (BMI) [Ratio] 31.65 kg/m2 Ganga Acosta DO Work Phone: [facility] [address] 05-07-2023 12:59-0400 Body temperature 98.01 [degF] Ganga Acosta DO Work Phone: [facility] [address] 05-07-2023 12:59-0400 Body weight 100.06 kg Ganga Acosta DO Work Phone: [facility] 05-07-2023 12:59-0400 Diastolic blood pressure 64 mm[Hg] Ganga Acosta DO Work Phone: [facility] 05-07-2023 12:59-0400 Heart rate 77 /min Ganga Acosta DO Work Phone: [facility] [address] 05-07-2023 12:59-0400 SaO2% (BldA) [Mass fraction] 93 % Ganga Acosta DO Work Phone: [facility] 05-07-2023 12:59-0400 Systolic blood pressure 105 mm[Hg] Ganga Acosta DO Work Phone: [facility] 03-01-2023 10:23-0400 Body height 177.8 cm Mckinley Guzman DPM Work Phone: [facility] 03-01-2023 10:23-0400 Body temperature 98.2 [degF] Mckinley Guzman DPM Work Phone: [facility] 03-01-2023 10:23-0400 Body weight 102.06 kg Mckinley Guzman DPM Work Phone: [facility] 10-31-2022 13:32-0400 Body temperature 97.8 [degF] Dr. Ganga Acosta Work Phone: [facility] 10-31-2022 13:32-0400 Diastolic blood pressure 75 mm[Hg] Dr. Ganga Acosta Work Phone: [facility] 10-31-2022 13:32-0400 Heart rate 71 /min Dr. Ganga Acosta Work Phone: [facility] 10-31-2022 13:32-0400 Respiratory rate 14 /min Dr. Ganga Acosta Work Phone: [facility] 10-31-2022 13:32-0400 SaO2% (BldA) [Mass fraction] 95 % Dr. Ganga Acosta Work Phone: [facility] 10-31-2022 13:32-0400 Systolic blood pressure 120 mm[Hg] Dr. Ganga Acosta Work Phone: [facility] 10-30-2022 23:12-0400 Body height 177.[address] Ganga Acosta Work Phone: [facility] 10-30-2022 23:12-0400 Body mass index (BMI) [Ratio] 29.5 kg/m2 Dr. Ganga Acosta Work Phone: [facility] 10-30-2022 23:12-0400 Body weight 93.[address] Ganga Acosta Work Phone: [facility] 09-30-2022 17:56-0500 Body temperature 97.9 [degF] Dr. Ganga Acosta Work Phone: [facility] 09-30-2022 17:56-0500 Diastolic blood pressure 66 mm[Hg] Dr. Ganga Acosta Work Phone: [facility] 09-30-2022 17:56-0500 Heart rate 89 /min Dr. Ganga Acosta Work Phone: [facility] 09-30-2022 17:56-0500 Respiratory rate 16 /min Dr. Ganga Acosta Work Phone: [facility] 09-30-2022 17:56-0500 SaO2% (BldA) [Mass fraction] 99 % Dr. Ganga Acosta Work Phone: [facility] 09-30-2022 17:56-0500 Systolic blood pressure 126 mm[Hg] Dr. Ganga Acosta Work Phone: [facility] 09-30-2022 09:57-0500 Body height 177.[address] Ganga Acosta Work Phone: [facility] 09-30-2022 09:57-0500 Body mass index (BMI) [Ratio] 31.5 kg/m2 Dr. Ganga Acosta Work Phone: [facility] 09-30-2022 09:57-0500 Body weight 99.[address] Ganga Acosta Work Phone: [facility] 09-18-2022 05:51-0500 Body mass index (BMI) [Ratio] 24.8 kg/m2 Dr. Ganga Acosta Work Phone: [facility] 09-18-2022 05:51-0500 Body temperature 97.6 [degF] Dr. Ganga Acosta Work Phone: [facility] 09-18-2022 05:51-0500 Body weight 78.[address] Ganga Acosta Work Phone: [facility] 09-18-2022 05:51-0500 Diastolic blood pressure 79 mm[Hg] Dr. Ganga Acosta Work Phone: [facility] 09-18-2022 05:51-0500 Heart rate 73 /min Dr. Ganga Acosta Work Phone: [facility] 09-18-2022 05:51-0500 Respiratory rate 17 /min Dr. Ganga Acosta Work Phone: [facility] 09-18-2022 05:51-0500 SaO2% (BldA) [Mass fraction] 96 % Dr. Ganga Acosta Work Phone: [facility] 09-18-2022 05:51-0500 Systolic blood pressure 134 mm[Hg] Dr. Ganga Acosta Work Phone: [facility] 08-31-2022 13:15-0500 Body height 177.8 cm Mckinley Thomas DPM Work Phone: [facility] 08-31-2022 13:15-0500 Body temperature 98.29 [degF] Mckinley Thomas DPM Work Phone: [facility] 08-31-2022 13:15-0500 Body weight 99.79 kg Mckinley Thomas DPM Work Phone: [facility] 07-20-2022 13:53-0500 Body height 177.8 cm Mckinley Thomas DPM Work Phone: [facility] 07-20-2022 13:53-0500 Body weight 98.88 kg Mckinley Thomas DPM Work Phone: [facility] 06-07-2022 13:39-0400 Body temperature 97.8 [degF] Dr. Ganga Acosta Work Phone: [facility] 06-07-2022 13:39-0400 Diastolic blood pressure 70 mm[Hg] Dr. Ganga Acosta Work Phone: [facility] 06-07-2022 13:39-0400 Heart rate 73 /min Dr. Ganga Acosta Work Phone: [facility] 06-07-2022 13:39-0400 Respiratory rate 20 /min Dr. Ganga Acosta Work Phone: [facility] 06-07-2022 13:39-0400 SaO2% (BldA) [Mass fraction] 96 % Dr. Ganga Acosta Work Phone: [facility] 06-07-2022 13:39-0400 Systolic blood pressure 118 mm[Hg] Dr. Ganga Acosta Work Phone: [facility] 06-06-2022 10:56-0400 Body height 177.[address] Ganga Acosta Work Phone: [facility] 06-06-2022 10:56-0400 Body weight 96.[address] Ganga Acosta Work Phone: [facility] 06-06-2022 03:41-0400 Body mass index (BMI) [Ratio] 30.6 kg/m2 Dr. Ganga Acosta Work Phone: [facility] 06-01-2022 10:43-0400 Body height 177.8 cm Mckinley Thomas DPM Work Phone: [facility] 06-01-2022 10:43-0400 Body weight 98.88 kg Mckinley Thomas DPM Work Phone: [facility] 06-01-2022 10:43-0400 Respiratory rate 18 /min Mckinley Guzman DPM Work Phone: [facility] 05-16-2022 13:30-0400 Body mass index (BMI) [Ratio] 30.8 kg/m2 Dr. Ganga Acosta Work Phone: [facility] 05-16-2022 13:30-0400 Body temperature 98.9 [degF] Dr. Ganga Acosta Work Phone: [facility] 05-16-2022 13:30-0400 Body weight 97.[address] Ganga Acosta Work Phone: [facility] 05-16-2022 13:30-0400 Diastolic blood pressure 70 mm[Hg] Dr. Ganga Acosta Work Phone: [facility] 05-16-2022 13:30-0400 Heart rate 87 /min Dr. Ganga Acosta Work Phone: [facility] 05-16-2022 13:30-0400 Respiratory rate 16 /min Dr. Ganga Acosta Work Phone: [facility] 05-16-2022 13:30-0400 SaO2% (BldA) [Mass fraction] 96 % Dr. Ganga Acosta Work Phone: [facility] 05-16-2022 13:30-0400 Systolic blood pressure 110 mm[Hg] Dr. Ganga Acosta Work Phone: [facility] 05-04-2022 11:12-0400 Body height 177.8 cm Mckinley Thomas DPM Work Phone: [facility] 05-04-2022 11:12-0400 Body weight 98.88 kg Mckinley Thomas DPM Work Phone: [facility] 05-04-2022 11:12-0400 Respiratory rate 20 /min Mckinley Thomas DPM Work Phone: [facility] 03-30-2022 11:00-0400 Body height 177.8 cm Mckinley Thomas DPM Work Phone: [facility] 03-30-2022 11:00-0400 Body weight 102.06 kg Mckinley Thomas DPM Work Phone: [facility] 03-30-2022 11:00-0400 Respiratory rate 18 /min Mckinley Thomas DPM Work Phone: [facility] 03-22-2022 10:10-0400 Body mass index (BMI) [Ratio] 30.9 kg/m2 Dr. Ganga Acosta Work Phone: [facility] Work Phone: 03-22-2022 10:10-0400 Body temperature 97.4 [degF] Dr. Ganga Acosta Work Phone: [facility] Work Phone: 03-22-2022 10:10-0400 Body weight 97.[address] Ganga Acosta Work Phone: [facility] Work Phone: 03-22-2022 10:10-0400 Diastolic blood pressure 73 mm[Hg] Dr. Ganga Acosta Work Phone: [facility] Work Phone: 03-22-2022 10:10-0400 Heart rate 80 /min Dr. Ganga Acosta Work Phone: [facility] Work Phone: 03-22-2022 10:10-0400 Respiratory rate 16 /min Dr. Ganga Acosta Work Phone: [facility] Work Phone: 03-22-2022 10:10-0400 SaO2% (BldA) [Mass fraction] 95 % Dr. Ganga Acosta Work Phone: [facility] Work Phone: 03-22-2022 10:10-0400 Systolic blood pressure 128 mm[Hg] Dr. Ganga Acosta Work Phone: [facility] Work Phone: 02-16-2022 09:57-0400 Body height 177.8 cm Mckinley Guzman DPM Work Phone: [facility] 02-16-2022 09:57-0400 Body temperature 98.2 [degF] Mckinley Guzman DPM Work Phone: [facility] 02-16-2022 09:57-0400 Body weight 102.06 kg Mckinley Guzman DPM Work Phone: [facility] 12-27-2021 10:59-0400 Body height 177.[address] Ganga Acosta Work Phone: [facility] Work Phone: 12-27-2021 10:59-0400 Body mass index (BMI) [Ratio] 33.5 kg/m2 Dr. Ganga Acosta Work Phone: [facility] Work Phone: 12-27-2021 10:59-0400 Body temperature 97.8 [degF] Dr. Ganga Acosta Work Phone: [facility] Work Phone: 12-27-2021 10:59-0400 Body weight 105.[address] Ganga Acosta Work Phone: [facility] Work Phone: 12-27-2021 10:59-0400 Diastolic blood pressure 80 mm[Hg] Dr. Ganga Acosta Work Phone: [facility] Work Phone: 12-27-2021 10:59-0400 Heart rate 69 /min Dr. Ganga Acosta Work Phone: [facility] Work Phone: 12-27-2021 10:59-0400 Respiratory rate 16 /min Dr. Ganga Acosta Work Phone: [facility] Work Phone: 12-27-2021 10:59-0400 SaO2% (BldA) [Mass fraction] 98 % Dr. Ganga Acosta Work Phone: [facility] Work Phone: 12-27-2021 10:59-0400 Systolic blood pressure 130 mm[Hg] Dr. Ganga Acosta Work Phone: [facility] Work Phone: 12-22-2021 09:39-0400 Body temperature 97.6 [degF] Dr. Ganga Acosta Work Phone: [facility] Work Phone: 12-22-2021 09:39-0400 Diastolic blood pressure 70 mm[Hg] Dr. Ganga Acosta Work Phone: [facility] Work Phone: 12-22-2021 09:39-0400 Heart rate 75 /min Dr. Ganga Acosta Work Phone: [facility] Work Phone: 12-22-2021 09:39-0400 Respiratory rate 17 /min Dr. Ganga Acosta Work Phone: [facility] Work Phone: 12-22-2021 09:39-0400 SaO2% (BldA) [Mass fraction] 96 % Dr. Ganga Acosta Work Phone: [facility] Work Phone: 12-22-2021 09:39-0400 Systolic blood pressure 111 mm[Hg] Dr. Ganga Acosta Work Phone: [facility] Work Phone: 10-05-2021 12:40-0500 Body mass index (BMI) [Ratio] 33.7 kg/m2 Dr. Ganga Acosta Work Phone: [facility] Work Phone: 10-05-2021 12:40-0500 Body temperature 98.6 [degF] Dr. Ganga Acosta Work Phone: [facility] Work Phone: 10-05-2021 12:40-0500 Body weight 106.[address] Ganga Acosta Work Phone: [facility] Work Phone: 10-05-2021 12:40-0500 Diastolic blood pressure 60 mm[Hg] Dr. Ganga Acosta Work Phone: [facility] Work Phone: 10-05-2021 12:40-0500 Heart rate 98 /min Dr. Ganga Acosta Work Phone: [facility] Work Phone: 10-05-2021 12:40-0500 Respiratory rate 16 /min Dr. Ganga Acosta Work Phone: [facility] Work Phone: 10-05-2021 12:40-0500 SaO2% (BldA) [Mass fraction] 95 % Dr. Ganga Acosta Work Phone: [facility] Work Phone: 10-05-2021 12:40-0500 Systolic blood pressure 112 mm[Hg] Dr. Ganga Acosta Work Phone: [facility] Work Phone: 09-16-2021 08:30-0500 Body temperature 98 [degF] Dr. Ganga Acosta Work Phone: [facility] Work Phone: 09-16-2021 08:30-0500 Diastolic blood pressure 98 mm[Hg] Dr. Ganga Acosta Work Phone: [facility] Work Phone: 09-16-2021 08:30-0500 Heart rate 74 /min Dr. Ganga Acosta Work Phone: [facility] Work Phone: 09-16-2021 08:30-0500 Respiratory rate 16 /min Dr. Ganga Acosta Work Phone: [facility] Work Phone: 09-16-2021 08:30-0500 SaO2% (BldA) [Mass fraction] 93 % Dr. Ganga Acosta Work Phone: [facility] Work Phone: 09-16-2021 08:30-0500 Systolic blood pressure 135 mm[Hg] Dr. Ganga Acosta Work Phone: [facility] Work Phone: 09-16-2021 05:20-0500 Body mass index (BMI) [Ratio] 32.8 kg/m2 Dr. Ganga Acosta Work Phone: [facility] Work Phone: 09-16-2021 05:20-0500 Body weight 103.[address] Ganga Acosta Work Phone: [facility] Work Phone: 09-06-2021 12:40-0500 Body mass index (BMI) [Ratio] 33.4 kg/m2 Dr. Ganga Acosta Work Phone: [facility] Work Phone: 09-06-2021 12:40-0500 Body temperature 98 [degF] Dr. Ganga Acosta Work Phone: [facility] Work Phone: 09-06-2021 12:40-0500 Body weight 105.[address] Ganga Acosta Work Phone: [facility] Work Phone: 09-06-2021 12:40-0500 Diastolic blood pressure 80 mm[Hg] Dr. Ganga Acosta Work Phone: [facility] Work Phone: 09-06-2021 12:40-0500 Heart rate 79 /min Dr. Ganga Acosta Work Phone: [facility] Work Phone: 09-06-2021 12:40-0500 Respiratory rate 16 /min Dr. Ganga Acosta Work Phone: [facility] Work Phone: 09-06-2021 12:40-0500 SaO2% (BldA) [Mass fraction] 94 % Dr. Ganga Acosta Work Phone: [facility] Work Phone: 09-06-2021 12:40-0500 Systolic blood pressure 122 mm[Hg] Dr. Ganga Acosta Work Phone: [facility] Work Phone: Encounters Encounter Date Encounter Type Care Provider Facility Start: 04-27-2025 End: 04-27-2025 Office outpatient visit 15 minutes Wang Thomas MD Work Phone: [facility] [place] Comment on above: Poison norma (Primary Dx); Sinus pain Start: 04-27-2025 End: 04-27-2025 ambulatory Demetrice Liang RN [facility] Clinical Communication Start: 04-27-2025 End: 04-27-2025 Patient encounter procedure Demetrice Liang RN [facility] Clinical Communication Start: 04-24-2025 End: 04-24-2025 Office outpatient visit 25 minutes Jonah Brink DO Work Phone: [facility] Comment on above: Spinal stenosis of l umbar region with neurogenic claudication (Primary Dx) Start: 04-24-2025 End: 04-24-2025 ambulatory JONAH BRINK [facility] Start: 04-14-2025 End: 04-21-2025 Refill Ursula Flores DPM Work Phone: [facility] Comment on above: Refill Request Start: 04-09-2025 End: 04-09-2025 Patient encounter procedure Mckinley Guzman DPM Work Phone: [facility] Comment on above: Ulcer of right foot with fat layer exposed (HCC) (Primary Dx); Chronic pain of left ankle Start: 04-09-2025 End: 04-09-2025 ambulatory GANGA ACOSTA [facility] Start: 04-06-2025 End: 04-06-2025 ambulatory UNKNOWN PROVIDER Facility:[facility] Start: 04-02-2025 End: 04-02-2025 Patient encounter procedure Leia PAC -[facility] Work Phone: Start: 04-02-2025 End: 04-02-[address] Ganga Acosta DO Work Phone: -[facility] Start: 03-25-2025 End: 03-25-2025 Office outpatient visit 15 minutes Jonah Brink DO Work Phone: [facility] Comment on above: Left leg pain (Prima ry Dx) Start: 03-25-2025 End: 03-25-2025 ambulatory JONAH BRINK [facility] Start: 03-12-2025 End: 03-12-2025 Patient encounter procedure Brit Noyola DO Work Phone: [facility] [place] Comment on above: EMG Start: 03-12-2025 End: 03-12-2025 ambulatory GANGA GALLODOLORESFernie Facility:[facility] Start: 02-20-2025 Non-patient / Non-visit Dr. Yesica Eugene MD -[facility] Start: 02-20-2025 End: 02-20-2025 Admission to same day surgery center Dr. Esteban Eugene MD -Endoscopy Work Phone: Start: 02-20-2025 End: 02-20-[address] Ganga Acosta DO Work Phone: -Endoscopy Start: 02-18-2025 End: 02-18-2025 Office outpatient new 45 minutes Jonah Brink DO Work Phone: [facility] Comment on above: Radiculopathy, lumba r region (Primary Dx) Start: 02-18-2025 End: 02-18-2025 ambulatory JONAH BRINK Facility:[facility] Start: 02-16-2025 End: 02-16-2025 Patient encounter procedure Shaan Mayorga DO Work Phone: [facility] Comment on above: Spinal stenosis, lum bar region with neurogenic claudication; Spondylolisthesis, lumbar region Start: 02-16-2025 End: 02-16-2025 ambulatory GANGA HARRIS MENAFernie Facility:[facility] Start: 02-12-2025 End: 02-12-2025 Patient encounter procedure Mckinley Guzman DPM Work Phone: [facility] Comment on above: Low back pain, unspe cified back pain laterality, unspecified chronicity, unspecified whether sciatica present (Primary Dx); Chronic pain of left ankle; Neuropathy; Charcot joint of left foot Start: 02-12-2025 End: 02-12-2025 ambulatory GANGA HARRIS KARLA Facility:[facility] Start: 02-10-2025 End: 02-10-[address] Esteban Eugene MD -[facility] Work Phone: Start: 02-10-2025 End: 02-10-[address] Ganga Acosta DO Work Phone: -[facility] Start: 02-06-2025 ambulatory SHAAN MAYORGA Eze ity:[id number] Start: 02-06-2025 End: 02-06-2025 Subsequent hospital visit by physician Mri Lawrence Cordon Work Phone: [facility] Comment on above: Low back pain, unspe cified back pain laterality, unspecified chronicity, unspecified whether sciatica present [M54.50] Start: 02-05-2025 End: 02-05-2025 Telephone encounter Brit Noyola DO Work Phone: [facility] [place] Start: 02-03-2025 End: 02-03-2025 Patient encounter procedure Shaan Mayorga DO Work Phone: [facility] Comment on above: Chronic left-sided l ow back pain with left-sided sciatica (Primary Dx); Low back pain, unspecified back pain laterality, unspecified chronicity, unspecified whether sciatica present; Left foot drop; Chronic right-sided low back pain with right-sided sciatica; Pain in left ankle and joints of left foot; Polyneuropathy; Spondylolisthesis, lumbar region Start: 02-03-2025 End: 02-03-2025 ambulatory GANGA ACOSTA Facility:[facility] Start: 01-29-2025 End: 01-29-2025 ambulatory GANGA ACOSTA Facility:[facility] Start: 01-29-2025 End: 01-29-2025 Patient encounter procedure Mckinley Guzman DPBouchra Work Phone: [facility] Comment on above: Chronic pain of left ankle (Primary Dx); Neuropathy; Ulcer of toe of right foot, with fat layer exposed (HCC); Pain in left foot; Charcot joint of left foot Start: 01-21-2025 ambulatory GANGA ACOSTA Facility:[facility] Start: 01-21-2025 End: 01-21-2025 Subsequent hospital visit by physician [facility] Comment on above: Chronic pain of left ankle [M25.572, G89.29] Start: 01-15-2025 End: 01-15-2025 Refill Mckinley Guzman DPM Work Phone: [facility] Comment on above: Refill Request Start: 01-15-2025 End: 01-15-2025 Patient encounter procedure Mckinley Guzman DPM Work Phone: [facility] Comment on above: Chronic pain of left ankle (Primary Dx); Charcot's joint of right foot; Pain in left foot; Ulcer of toe of right foot, with fat layer exposed (HCC) Start: 01-15-2025 End: 01-15-2025 ambulatory GANGA ACOSTA Facility:[facility] Start: 01-13-2025 End: 01-13-[address] Ganga Acosta DO Work Phone: [facility] Work Phone: Start: 01-13-2025 End: 01-13-[address] Nelson Mayorga MD -Laboratory Work Phone: Start: 01-12-2025 End: 01-12-2025 Office outpatient new 30 minutes Erickson Haile MD Work Phone: [facility] Comment on above: Left foot pain (Prim leidy Dx); Acute left ankle pain; Arthritis of both feet Start: 01-12-2025 End: 01-13-2025 ambulatory Nelson Mayorga Facility:[facility] Start: 12-18-2024 End: 12-18-2024 Patient encounter procedure Mckinley Guzman DPM Work Phone: [facility] Comment on above: Chronic pain of left ankle (Primary Dx) Start: 12-18-2024 End: 12-18-2024 ambulatory GANGA ACOTSA Facility:[facility] Start: 11-27-2024 End: 11-27-2024 ambulatory GANGA ACOSTA Facility:[facility] Start: 11-25-2024 End: 01-30-2025 Admission to same day surgery center BRANDON FINNEY PA-C [facility] Start: 11-25-2024 End: 01-30-[address] GANGA ACOSTA DO Facility:[facility] Start: 11-13-2024 ambulatory MCKINLEY GUZMAN Facil ity:[facility] Start: 11-13-2024 End: 11-13-2024 Subsequent hospital visit by physician Mri [place] (1.5t/Lg Bore 70cm) Work Phone: [facility] Comment on above: Acute left ankle glenn n [M25.572] Start: 11-09-2024 End: 11-09-2024 Emergency department patient visit Dr. Ganga Acosta DO Work Phone: -Emergency Department Work Phone: Start: 10-30-2024 End: 10-30-2024 ambulatory MCKINLEY GUZMAN [facility] Start: 10-30-2024 End: 10-30-2024 Patient encounter procedure Mckinley Guzman DPM Work Phone: [facility] Comment on above: Acute left ankle glenn n (Primary Dx); Pain in left foot; Postoperative state Start: 10-30-2024 End: 10-30-2024 ambulatory GANGA ACOSTA Facility:[facility] Start: 10-09-2024 End: 10-09-2024 Patient encounter procedure Mckinley Guzman DPM Work Phone: [facility] Comment on above: Pain in left foot (P rimary Dx); Chronic pain of left ankle Start: 10-09-2024 End: 10-09-2024 ambulatory SELF Facility[facility] Start: 09-23-2024 Encounter for genera l adult medical examination without abnormal findings Leia [facility] Start: 09-18-2024 End: 09-18-2024 Patient encounter procedure Mckinley Guzman DPM Work Phone: [facility] Comment on above: Postoperative state (Primary Dx) Start: 09-18-2024 End: 09-18-2024 ambulatory GANGA ACOSTA Facility[facility] Start: 09-10-2024 End: 09-10-2024 Patient encounter procedure Leia BRANTLEY -Sleep Lab Work Phone: Start: 09-10-2024 End: 09-10-2024 ambulatory Ganga Hart Facility:[facility] Start: 09-04-2024 End: 09-04-2024 Patient encounter procedure Mckinley Guzman DPM Work Phone: [facility] Comment on above: Postoperative state (Primary Dx); Diabetic autonomic neuropathy associated with other specified diabetes mellitus (HCC); Neuropathy Start: 09-04-2024 End: 09-04-2024 ambulatory GANGA HARRIS [facility] Facility:[facility] Start: 08-28-2024 End: 08-28-2024 Patient encounter procedure Mckinley Guzman DPM Work Phone: [facility] Comment on above: Pain in left foot (P rimary Dx); Charcot joint of left foot; Post-operative state Start: 08-28-2024 End: 08-28-2024 ambulatory GANGA HARRIS [facility] Facility:[facility] Start: 08-18-2024 End: 08-18-2024 ambulatory MCKINLEY GUZMAN Facility:[facility] Start: 08-14-2024 End: 08-14-2024 Telephone encounter Mckinley Guzman DPM Work Phone: [facility] Comment on above: Preparations For Flo ashley Start: 08-11-2024 End: 08-11-2024 ambulatory [facility] Start: 08-11-2024 End: 08-11-2024 Office outpatient visit 15 minutes Ganga Doe Menafernie DO Work Phone: [facility] [place] Comment on above: Charcot joint of rig ht foot (Primary Dx); Allergic rhinitis, unspecified seasonality, unspecified trigger; Extrinsic asthma, unspecified asthma severity, unspecified whether complicated, unspecified whether persistent; History of systemic steroid therapy; History of prostate cancer; Preoperative clearance; Rheumatoid arthritis involving wrist with positive rheumatoid factor, unspecified laterality (HCC) Start: 08-11-2024 End: 08-11-2024 Preoperative state Ganga Brook Karla DO Work Phone: [facility]: 08-07-2024 End: 09-09-2024 Telephone encounter Ganga Acosta DO Work Phone: [facility] [place] Comment on above: Other (Surgical torri loli) Start: 08-07-2024 End: 08-07-2024 Patient encounter procedure Mckinley Guzman DPM Work Phone: [facility] Comment on above: Displaced fracture o f second metatarsal bone, left foot, initial encounter for closed fracture (Primary Dx); Pain in left foot; Charcot joint of left foot Start: 08-07-2024 End: 08-07-2024 ambulatory MCKINLEY GUZMAN [facility] Start: 07-16-2024 End: 07-16-2024 Patient encounter procedure Leia BRANTLEY -[facility] Work Phone: Start: 07-16-2024 End: 07-16-2024 ambulatory Ganga Hartfernie Facility:[facility] Start: 07-08-2024 End: 07-08-2024 Patient encounter procedure Mckinley Guzman DPM Work Phone: [employer] Comment on above: Displaced fracture o f second metatarsal bone, left foot, initial encounter for closed fracture (Primary Dx); Pain in left foot; Charcot's arthropathy; Charcot joint of left foot Start: 07-08-2024 End: 07-08-2024 ambulatory MCKINLEY GUZMAN [facility] Start: 06-24-2024 End: 06-24-2024 ambulatory GANGA GALLODOLORESFernie Facility:[facility] Start: 06-24-2024 End: 06-24-2024 Patient encounter procedure Mckinley Guzman DPM Work Phone: [employer] Comment on above: Pain in left foot (P rimary Dx); Charcot joint of left foot; Displaced fracture of second metatarsal bone, left foot, initial encounter for closed fracture Start: 06-23-2024 End: 06-23-2024 Telephone encounter Mckinley Guzman DPM Work Phone: [facility] Start: 06-05-2024 End: 06-05-2024 Patient encounter procedure Mckinley Guzman DPM Work Phone: [facility] Comment on above: Left foot drop (Prim leidy Dx); Charcot's joint of right foot; Charcot's arthropathy; Neuropathy Start: 06-05-2024 End: 06-05-2024 ambulatory SELF [facility] Start: 05-13-2024 End: 05-13-2024 Subsequent hospital visit by physician Iram Milian PA-C Work Phone: [facility] Rad[facility] Comment on above: Bronchitis Start: 05-13-2024 End: 05-13-2024 Office outpatient visit 15 minutes Iram Milian PA-C Work Phone: [facility] Comment on above: Bronchitis (Primary Dx) Start: 05-13-2024 End: 05-13-2024 ambulatory [facility] Start: 05-12-2024 End: 05-12-2024 ambulatory Catherine Singh RN [facility] Clinical Communication Start: 05-12-2024 End: 05-12-2024 Patient encounter procedure Catherine Singh RN [facility] Clinical Communication Start: 05-01-2024 End: 05-01-2024 Patient encounter procedure Mckinley Guzman DPM Work Phone: [facility] Comment on above: Charcot's joint of r ight foot (Primary Dx); Left foot drop; Pain in left foot Start: 05-01-2024 End: 05-01-2024 ambulatory SELF [facility] Start: 04-03-2024 End: 04-03-2024 Patient encounter procedure Mckinley Guzman DPM Work Phone: [facility] Comment on above: Charcot's joint of r ight foot (Primary Dx); Pain in left foot Start: 11-29-2023 End: 11-29-2023 Patient encounter procedure [facility]ckinley Guzman DPM [facility] Comment on above: Charcot's joint of r ight foot (Primary Dx); Left foot drop Start: 11-06-2023 End: 11-07-2023 Evaluation and management of inpatient DR JOE DURAND MD [facility] Start: 10-18-2023 End: 10-18-2023 Patient encounter procedure Mckinley Guzman DPM Work Phone: [facility] Comment on above: Charcot's joint of r ight foot (Primary Dx); Traumatic rupture of left anterior tibial tendon, initial encounter; Left foot drop Start: 10-01-2023 End: 10-01-2023 Office outpatient visit 15 minutes Olivia Maida ELECTRONIC FUNDS TRANSFER COORDINATOR - EMBROIDERY ASSISTANT Work Phone: [facility] Comment on above: Viral URI (Primary D x) Start: 09-06-2023 End: 09-06-2023 Patient encounter procedure Mckinley Guzman DPM Work Phone: [facility] Comment on above: Ulcer of right foot with fat layer exposed (HCC) (Primary Dx); Charcot's joint of right foot Start: 09-03-2023 End: 01-23-2024 Admission to same day surgery center BRANDON FINNEY PA-C [facility] Start: 09-03-2023 End: 01-23-[address] GANGA ACOSTA DO Facility:[facility] Start: 08-21-2023 End: 08-22-[address] JOE DURAND MD Facility:[facility] Start: 08-21-2023 End: 08-22-[address] JOE DURAND MD [facility] Start: 08-15-2023 End: 08-15-2023 Patient encounter procedure Mckinley Guzman DPM Work Phone: [facility] Comment on above: Ulcer of right foot with fat layer exposed (HCC) (Primary Dx); Cellulitis of right foot; Charcot's joint of right foot Start: 08-07-2023 End: 08-07-2023 Assay of hemosiderin, quant Ganga Acosta DO Work Phone: [facility] [address] Start: 08-07-2023 End: 08-07-2023 Patient encounter procedure Ganga Acosta DO Work Phone: [facility] Comment on above: Encounter for subseq uent annual wellness visit (AWV) in Medicare patient (Primary Dx); Rheumatoid arthritis involving wrist with positive rheumatoid factor, unspecified laterality (HCC); History of prostate cancer; Personal history of colonic polyps; Primary osteoarthritis of right shoulder; Pre-operative clearance; Extrinsic asthma, unspecified asthma severity, unspecified whether complicated, unspecified whether persistent; Routine general medical examination at health care facility Start: 08-07-2023 End: 08-07-2023 Preoperative state Ganga Acosta DO Work Phone: [facility] [address] Start: 07-27-2023 End: 07-27-[address] JOE DURAND MD Facility:[facility] Start: 07-27-2023 End: 07-27-[address] JOE DURAND MD [facility] Start: 07-27-2023 End: 07-27-[address] JOE DURAND MD [facility] Start: 07-27-2023 End: 07-27-[address] JOE DURAND MD Facility:[facility] Start: 05-07-2023 End: 05-07-2023 Office outpatient visit 25 minutes Ganga Hartfernie Work Phone: [facility] Comment on above: Dentalgia (Primary D x); Rheumatoid arthritis involving wrist with positive rheumatoid factor, unspecified laterality (HCC); History of prostate cancer; Extrinsic asthma, unspecified asthma severity, unspecified whether complicated, unspecified whether persistent; Boil of buttock; Pre-operative clearance; Colon cancer screening Start: 05-07-2023 End: 05-07-2023 Preoperative state Ganga Doe Petrilla DO Work Phone: [facility] Start: 04-09-2023 Refill Paige Hester DPM Work Phone: [facility] Comment on above: Refill Request Start: 03-01-2023 End: 03-01-2023 Patient encounter procedure Mckinley Guzman DPM Work Phone: [facility] Comment on above: Charcot's joint of r ight foot (Primary Dx) Start: 10-30-2022 End: 10-31-2022 Evaluation and management of inpatient Dr. Ganga Acosta Work Phone: [facility]-Medical Surgical 3 Start: 10-30-2022 End: 10-31-[address] Ganga Acosta Work Phone: [facility] Work Phone: Start: 09-30-2022 End: 09-30-2022 Emergency department patient visit Dr. Ganga Acosta Work Phone: [facility]-Emergency Department Start: 09-18-2022 End: 09-18-[address] Ganga Acosta Work Phone: [facility]-Pulmonary Medicine [facility] Start: 08-31-2022 End: 08-31-2022 Patient encounter procedure Mckinley Guzman DPM Work Phone: [facility] Comment on above: Charcot's arthropath y (Primary Dx) Start: 08-24-2022 End: 08-24-[address] Ganga Acosta Work Phone: [facility] Work Phone: Start: 08-24-2022 End: 08-24-[address] Ganga Acosta Work Phone: [facility] Start: 07-20-2022 End: 07-20-2022 Patient encounter procedure Mckinley Guzman DPM Work Phone: [facility] Comment on above: Charcot's arthropath y; Neuropathy Start: 06-23-2022 Telephone encounter Mckinley Guzman DPM Work Phone: [facility] Comment on above: Appointment Start: 06-12-2022 End: 06-12-[address] Ganga Acosta Work Phone: [facility] Start: 06-07-2022 Non-patient / Non-visit Dr. Yaniv Acosta Work Phone: [facility] Start: 06-06-2022 Non-patient / Non-visit Dr. Yaniv Acosta Work Phone: [facility] Start: 06-06-2022 End: 06-07-2022 Evaluation and management of inpatient Dr. Ganga Acosta [facility] Start: 06-01-2022 End: 06-01-2022 Patient encounter procedure Mckinley Guzman DPM Work Phone: [facility] Comment on above: Charcot's arthropath y (Primary Dx); Neuropathy Start: 05-16-2022 End: 05-16-[address] Ganga Acosta Work Phone: [facility] Start: 05-04-2022 End: 05-04-2022 Patient encounter procedure Mckinley Guzman DPM Work Phone: [facility] Comment on above: Charcot's arthropath y (Primary Dx); Neuropathy; Charcot's joint of right foot Start: 03-30-2022 End: 03-30-2022 Patient encounter procedure Mckinley Guzman DPM Work Phone: [facility] Comment on above: Charcot's joint of r ight foot (Primary Dx) Start: 03-22-2022 End: 03-22-[address] Ganga Acosta [facility] Start: 02-16-2022 End: 02-16-2022 Patient encounter procedure Mckinley Guzman DPM Work Phone: [facility] Comment on above: Charcot's arthropath y (Primary Dx); Neuropathy Start: 02-16-2022 End: 02-16-[address] Ganga Acosta Work Phone: [facility] Start: 01-13-2022 Telephone encounter Ag Orth Work Phone: [facility] Comment on above: Appointment Start: 12-30-2021 End: 12-30-[address] Ganga Acosta Work Phone: [facility] Start: 12-27-2021 End: 12-27-[address] Ganga Acosta Work Phone: [facility] Start: 12-22-2021 End: 12-22-[address] Ganga Acosta Work Phone: [facility] Start: 10-25-2021 Non-patient / Non-visit Dr. Yaniv Acosta Work Phone: [facility] Start: 10-25-2021 End: 10-25-[address] Ganga Acosta [facility] Start: 10-10-2021 Non-patient / Non-visit Dr. Yaniv Acosta Work Phone: [facility] Start: 10-10-2021 End: 10-10-[address] Ganga Acosta Work [facility] Start: 10-05-2021 End: 10-05-[address] Ganga Acosta Work Phone: [facility]-Pulmonary Medicine [facility] Start: 09-16-2021 End: 09-16-2021 Admission to same day surgery center Dr. Ganga Acosta Work Phone: [facility]-Surgical Day Care Start: 09-07-2021 End: 09-07-[address] Ganga Acosta Work Phone[facility] [place] Start: 09-06-2021 End: 09-06-[address] Ganga Acosta Work Phone[facility] Start: 07-02-[address] [facility] Start: 06-24-[address] [facility] Start: 06-05-[address] [facility] Procedures Date Procedure Procedure Detail Performing Clinician Start: 02-20-2025 End: 02-20-[address] Ganga Acosta DO Work Phone: Start: 02-06-2025 Mri spinal canal lum bar w/o contrast material Shaan Mayorga DO Work Phone: Start: 02-03-2025 Radex spine lumbosac ral 2/3 views Shaan Mayorga DO Work Phone: Start: 01-15-2025 Radex ankle complete minimum 3 views Ursula Flores DPM Work Phone: Start: 01-13-2025 Assay of prostate specific antigen total Dr. Ganga Acosta DO Work Phone: Comment on above: This test was perfor med using the [employer] tPSA method. Measured values of a patient sample can vary depending on the testing procedure used. PSA values determined on patient samples by different testing procedures cannot be used interchangeably. If there is a change in PSA assays while monitoring therapy, sequential testing should be performed to confirm baseline values. Start: 01-12-2025 End: 01-12-2025 Radex ankle complete minimum 3 views Erickson Haile MD Work Phone: Start: 12-21-2024 Arthrocentesis aspir &/inj interm jt/burs w/o Mckinley Guzman DPM Work Phone: Start: 11-09-2024 End: 11-09-2024 Plain X-ray of shoulder Dr. Ganga briones DO Work Phone: Start: 10-30-2024 Radex ankle complete minimum 3 views Estela Bouchra Kalyan DPM Work Phone: Start: 10-09-2024 Radex ankle complete minimum 3 views Mckinley Guzman DPM Work Phone: Start: 09-18-2024 Radex foot complete minimum [address]z DPM Work Phone: Start: 09-04-2024 Radex foot complete minimum [address] DPM Work Phone: Start: 08-28-2024 Radex foot complete minimum 3 views Ursula Flores DPM Work Phone: Start: 08-07-2024 Radex foot complete minimum 3 views Nataliia Arron DPM Work Phone: Start: 06-24-2024 Radex foot complete minimum 3 views Stephanie Florentinodick DPM Work Phone: Start: 05-13-2024 Radiologic exam ches t 2 views Iram Milian PA-C Work Phone: Start: 05-13-2024 Adult depression screening assessment Iram Milian PA-C Work Phone: Start: 04-03-2024 Radex foot complete minimum [address] DPM Work Phone: Start: 04-03-2024 Radex foot complete minimum [address] M[address]antz DPM Work Phone: Start: 11-06-2023 Structure of right shoulder region (body structure) DR JOE DURAND MD Comment on above: RIGHT SHOULDER ROWDY ION Start: 08-07-2023 Adult depression screening assessment Ganga Acosta DO Work Phone: Start: 10-31-2022 Introduction to urin leidy tract Dr. Ganga Acosta Work Phone: Start: 10-31-2022 Fluoroscopic guidance Rony Acosta Work Phone: Start: 10-31-2022 Plain chest X-ray Dr. Kristie Acosta Work Phone: Start: 09-30-2022 Plain chest X-ray Dr. Kristie Acosta Work Phone: Start: 09-30-2022 Computed tomography of abdomen and pelvis with contrast Dr. Ganga Acosta Work Phone: Start: 06-05-2022 Plain x-ray of wrist Dr Violet Acosta Work Phone: Start: 03-30-2022 Radex foot complete minimum 3 views Zeinab RICOM Work Phone: Start: 09-16-2021 End: 09-16-2021 Acid fast bacilli culture Dr. Ganga juarez Work Phone: Start: 09-16-[address] Ganga Acosta Work Phone: Start: 09-16-2021 End: 09-16-2021 Cytopathology procedure, preparation of smear, genital source Dr. Ganga Acosta Work Phone: Start: 09-16-2021 Investigation of transfusion reaction Dr. Ganga Acosta Work Phone: Start: 09-16-2021 Microbial culture, routine Dr. Ganga Acosta Work Phone: Start: 09-16-2021 X-ray of both feet Dr. Ganga Acosta Work Phone: Start: 02-17-2020 Colonoscopy [facility] Work Phone: Start: 03-24-2019 Lipid 1996 panel - S valerie or Plasma Mckinley Guzman DPM Work Phone: Start: 08-13-[address] JOE DURAND MD Amputation of finger of right hand DR JOE DURAND MD Anaerobic microbial culture Dr. Ganga Acosta Work Phone: Arthroplasty of knee DR LENIN DURAND MD Comment on above: bilateral Arthroscopy of knee DR KAT DURADN MD Comment on above: bilateral Bacteria identified in Blood by Culture Dr. Ganga Acosta Work Phone: Bacterial culture Dr. Ganga Acosta Work Phone: Colonoscopy DR JOE Winn MD Entire carpal canal (body structure) DR JOE DURAND MD Comment on above: bilateral Extracorporeal shock wave lithotripsy of calculus of kidney DR JOE DURAND MD Fluoroscopy guided c ooled radiofrequency ablation of nerve DR JOE DURAND MD Comment on above: cervical spine ft (qualifier value) DR LENIN DURAND MD Comment on above: right x2 H/O: surgery H/O prostatectomy Dr. Ganga Acosta Work Phone: History of decompres yuridia of median nerve History of carpal tunnel release Dr. Ganga Acosta Work Phone: History of repair of inguinal hernia History of inguinal hernia repair Dr. Ganga Acosta Work Phone: History of tonsillectomy History of tonsillectomy Dr. Ganga Acosta Work Phone: Investigation of transfusion reaction Dr. Ganga Acosta Work Phone: Investigation of transfusion reaction Dr. Ganga Acosta Work Phone: Ligation and strippi ng of varicose vein of lower limb DR JOE DURAND MD Prostatectomy DR JOE CONNELL MD Repair of umbilical hernia DR JOE DURAND MD Comment on above: Right Revision of left tot al knee arthroplasty DR JOE DURAND MD Comment on above: x2 SARS-CoV-2 & FLU Ant igen (Rapid) Dr. Ganga Acosta Work Phone: Urine culture Dr. Ganga juarez Work Phone: Plan of Treatment Date Care Activity Detail Author Start: 02-20-2030 Screening for malignant neoplasm of colon [facility] Start: 02-16-2030 Screening for malignant neoplasm of colon [facility] Start: 08-20-2025 End: 08-20-2025 Patient encounter procedure 08/20/2025 11:20 AM EST Office Visit [facility] [address] [place] [address] [place] [address] Olivia Bey, DIVINE - EMBROIDERY ASSISTANT [address] [facility] [place] [address] [facility] Start: 06-11-2025 End: 06-11-2025 ambulatory 06/11/2025 11:20 AM EDT PAT Pre Surgical Testing [address] [facility] [place] [address] sx 06/25 Pre Surgical Testing Comment on above: sx 06/25 Start: 06-11-2025 End: 06-11-2025 Patient encounter procedure 06/11/2025 10:30 AM EDT Appointment RAD[facility]AN [facility] [address] [facility] [place] [address] Spinal stenosis of lumbar region with neurogenic claudication [M48.062] [facility] CT [facility] Comment on above: Spinal stenosis of lumbar region with ne urogenic claudication [M48.062] Start: 05-21-2025 End: 05-21-2025 Patient encounter procedure 05/21/2025 11:15 AM EDT Office Visit [facility] [address] [place] [address] Mckinley Guzman DPM [address] [place] [address] left ankle [facility] Comment on above: left ankle Start: 05-13-2025 Depression Screening Depression Screening [facility] Start: 04-24-2025 End: 04-24-2025 Patient encounter procedure 04/24/2025 10:15 AM EDT Office Visit [facility] [address] [place] [phone] Jonah Brink, [address] [facility] [place] [phone] f/u selective nerve root block 04/06 2 week [facility] Comment on above: f/u selective nerve root block 04/06 2 we ek Start: 04-13-2025 COVID-19 Vaccine ( season) COVID-19 Vaccine ( season) [facility] Start: 04-13-2025 Influenza vaccination [facility] Start: 04-09-2025 End: 04-09-2025 Patient encounter procedure 04/09/2025 9:45 AM EDT Office Visit [facility] [address] [place] [address] Mckinley Guzman DPM [address] [place] [address] ct left ankle [facility] Comment on above: ct left ankle Start: 04-06-2025 End: 04-06-2025 Admission to same day surgery center 04/06/2025 11:00 AM EDT - 04/06/2025 12:00 PM EDT Surgery [facility] [address] [place] [address] Leah Early MD, MD [address] [place], [place] [id number] selective nerve root block of L5 [facility] Comment on above: selective nerve root block of L5 Start: 04-06-2025 End: 04-06-2025 Njx dx/ther sbst intrlmnr lmbr/sac w/img gdn LUMBAR EPIDURAL BLOCK W/INJECTION NON NEUROLYTIC W/IMAGE GUIDANCE Left leg pain 04/06/2025 11:00 AM EDT [facility] Start: 04-06-2025 Subsequent hospital visit by physician 04/06/2025 11:00 AM EDT Hospital Encounter [facility] [address] [place] [address] Leah Early MD, [address] [place] [address] Left leg pain [M79.605] [facility] Comment on above: Left leg pain [M79.605] Start: 03-25-2025 End: 03-25-2025 Patient encounter procedure 03/25/2025 1:45 PM EDT Office Visit [facility] [address] [place] [address] Jonah Brink, [address] [place] [place] [phone] lower back/L leg [facility] Comment on above: lower back/L leg Start: 03-12-2025 End: 03-12-2025 Patient encounter procedure [facility] [place] Comment on above: left ankle, EMG ct left ankle Start: 02-20-2025 Colsc flx w/rmvl of tumor polyp lesion snare tq COLONOSCOPY W/LESION REMOVAL [facility] Start: 02-20-2025 Patient discharge [facility] Start: 02-18-2025 End: 02-18-2025 Patient encounter procedure 02/18/2025 1:45 PM EDT Office Visit [facility] [place] [address] Jonah Brink, [address] [place] [place] [phone] new pt-lumbar [facility] Comment on above: new pt-lumbar Start: 02-16-2025 End: 02-16-2025 Patient encounter procedure 02/16/2025 9:15 AM EDT Office Visit [facility] [address] [place] [address] Shaan Mayorga, DO [address] [place] [address] MRI LUMBAR 02/06 [facility] Comment on above: MRI LUMBAR 02/06 Start: 02-12-2025 End: 02-12-2025 Patient encounter procedure 02/12/2025 2:15 PM EDT Office Visit [facility] [address] [place] [address] Mckinley Guzman, DPM [address] [place] [address] ct left ankle [address] GUZMAN [facility] Comment on above: ct left ankle [address] GUZMAN Start: 02-06-2025 End: 02-06-2025 Patient encounter procedure 02/06/2025 1:15 PM EDT Appointment RAD[facility] [address] [facility] [place] [address] Chronic left-sided low back pain with left-sided sciatica [M54.42, G89.29] [facility] Comment on above: Chronic left-sided low back pain with le ft-sided sciatica [M54.42, G89.29] Start: 02-03-2025 End: 02-03-2025 Patient encounter procedure 02/03/2025 1:30 PM EDT Office Visit [facility] [address] [place] [address] Shaan Mayorga, DO [address] [place] [address] BACK [facility]TH [facility] Comment on above: BACK Start: 01-29-2025 End: 01-29-2025 Patient encounter procedure 01/29/2025 2:45 PM EDT Office Visit [facility] [address] [place] [address] Mckinley Guzman DPM [address] [place] [address] ct left ankle [facility] Comment on above: ct left ankle Start: 01-21-2025 End: 01-21-2025 Patient encounter procedure 01/21/2025 5:30 PM EDT Appointment RADIO CT SCAN [facility] [address] [place] [address] Chronic pain of left ankle [M25.572, G89.29] [facility]AN [facility] Comment on above: Chronic pain of left ankle [M25.572, G89 .29] Start: 01-15-2025 End: 01-15-2025 Patient encounter procedure 01/15/2025 1:45 PM EDT Office Visit [facility] [address] [place] [address] Mckinley Guzman DPM [address] [place] [address] LT ANKLE F/U [facility] Comment on above: LT ANKLE F/U Start: 11-27-2024 End: 11-27-2024 Patient encounter procedure 11/27/2024 11:15 AM EDT Office Visit [facility] [address] [place] [address] Mckinley Guzman, CON[place] [address] [place] [address] MRI Ankle WO [facility] Comment on above: MRI Ankle WO Start: 11-13-2024 End: 11-13-2024 Patient encounter procedure 11/13/2024 9:15 AM EDT Appointment [facility] [address] [place] [address] Acute left ankle pain [M25.572] [facility] Comment on above: Acute left ankle pain [M25.572] Start: 11-09-2024 [facility] Start: 11-09-2024 Clsd tx shoulder dislc w/manipulation w/o anes CLTX RISHI DSLC W/MNPJ WO [facility] Start: 10-09-2024 End: 10-09-2024 Patient encounter procedure 10/09/2024 10:45 AM EST Office Visit [facility] [address] [place] [address] Mckinley Guzman, CON[place] [address] [place] [address] LEFT FOOT SX 08/18 1 [facility] Comment on above: LEFT FOOT SX 08/18 Start: 09-18-2024 End: 09-18-2024 Patient encounter procedure 09/18/2024 10:15 AM EST Office Visit [facility] [address] [place] [address] Mckinley Guzman, [place] [address] [place] [address] LEFT FOOT SX 08/[address] GUZMAN..RS FROM [facility] Comment on above: LEFT FOOT SX 08/[address] GUZMAN ..RS FROM [facility] Start: 08-28-2024 End: 08-28-2024 Patient encounter procedure 08/28/2024 2:00 PM EST Office Visit [facility] [address] [place] [address] Mckinley Guzman, [place] [address] [place], [place] [phone] LEFT FOOT SX 08/18 [facility] Comment on above: LEFT FOOT SX 08/18 Start: 08-18-2024 End: 08-18-2024 Admission to same day surgery center 08/18/2024 2:50 PM EST - 08/18/2024 4:20 PM EST Surgery [facility] [address] [place] [address] Mckinley Guzman DPM [address] [place] [address] ORIF METATARSAL 2ND [facility] Comment on above: ORIF METATARSAL 2ND Start: 08-18-2024 End: 08-18-2024 Open treatment metatarsal fracture each [facility]IF METATARSAL Closed displaced fracture of second metatarsal bone of left foot, initial encounter 08/18/2024 2:50 PM EST [facility] Start: 08-18-2024 Subsequent hospital visit by physician 08/18/2024 2:50 PM EST Hospital Encounter [facility] [address] [place] [address] Mckinley Guzman DPM [address] [place] [address] Closed displaced fracture of second metatarsal bone of left foot, initial encounter [S92.322A] [facility] Comment on above: Closed displaced fracture of second meta tarsal bone of left foot, initial encounter [S92.322A] Start: 08-13-2024 Advance Directive Discussion Advance Directive Discussion [facility] Start: 08-13-2024 Medicare Advantage Annual Wellness Visit Medicare Advantage Annual Wellness Visit [facility] Start: 08-07-2024 Depression Screening Depression Screening [facility] Start: 08-07-2024 End: 08-07-2024 Patient encounter procedure 08/07/2024 1:30 PM EST Office Visit [facility] [address] [facility] [place] [address] Mckinley Guzman DPM [address] [place] [address] RT FOOT F/U [facility] Comment on above: RT FOOT F/U Start: 07-08-2024 End: 07-08-2024 Patient encounter procedure 07/08/2024 10:45 AM EST Office Visit [facility] [address] [place] [address] Mckinley Guzman DPM [address] [place] [address] lt foot pain [facility] Comment on above: lt foot pain Start: 07-03-2024 End: 07-03-2024 Patient encounter procedure 07/03/2024 1:30 PM EST Office Visit [facility] [address] [facility], [place] [address] Mckinley Guzman DPM [address] [place] [address] LT ANKLE [facility] Comment on above: LT ANKLE Start: 06-24-2024 End: 06-24-2024 Patient encounter procedure 06/24/2024 8:00 AM EST Office Visit [facility] [address] [place] [address] Mckinley Guzman DPM [address] [place] [address] f/u L foot./pain and swelling/tlb [facility] Comment on above: f/u L foot./pain and swelling/tlb Start: 06-05-2024 End: 06-05-2024 Patient encounter procedure 06/05/2024 11:15 AM EDT Office Visit [facility] [address] [facility], [place] [phone] Mckinley Guzman DPM [address] [place] [address] RT FOOT F/U [facility] Comment on above: RT FOOT F/U Start: 05-13-2024 End: 05-13-2024 Patient encounter procedure 05/13/2024 2:40 PM EDT Office Visit [facility] [address] [place] [address] Iram Milian PA-C [address] [place] [address] [facility] Start: 05-01-2024 End: 05-01-2024 Patient encounter procedure 05/01/2024 1:15 PM EDT Office Visit [facility] [address] [place], [place] [address] Mckinley Guzman, DPBouchra [address] [place], [place] [phone] LT ANKLE [facility] Comment on above: LT ANKLE Start: 04-13-2024 COVID-19 Vaccine ( season) COVID-19 Vaccine () [facility] Start: 04-13-2024 COVID-19 Vaccine () COVID-19 Vaccine ( season) [facility] Start: 04-13-2024 Covid-19 Vaccine () Covid-19 Vaccine () [facility] Start: 04-13-2024 Influenza vaccination Influenza Vaccine (#1) [facility] Start: 03-24-2024 Lipid panel Lipid Screening [facility] Start: 01-08-2024 Diabetes mellitus screening Diabetes Screening [facility] Start: 01-08-2024 Diabetes Screening Diabetes Screening [facility] Start: 01-02-2024 RSV Immunization for Adults (1 - 1-dose 75+ series) RSV Immunization for Adults (1 - 1-dose 75+ series) [facility] Start: 01-02-2024 RSV Vaccine (1 - 1-dose 75+ series) RSV Vaccine (1 - 1-dose 75+ series) [facility] Start: 2024 DI[address]ETES SCREEN DI[address]ETES SCREEN [facility] Start: 2024 Diabetes Screening Diabetes Screening [facility] Start: 10-02-2023 Covid-19 Vaccine () Covid-19 Vaccine () [facility] Start: 08-13-2023 Advance Directive Discussion Advance Directive Discussion [facility] Start: 08-13-2023 Behavioral Health Screening Behavioral Health Screening [facility] Start: 08-13-2023 Depression Assessment Depression Assessment [facility] Start: 08-13-2023 Medicare Advantage Annual Wellness Visit Medicare Advantage Annual Wellness Visit [facility] Start: 04-13-2023 COVID-19 Vaccine () COVID-19 Vaccine () [facility] Start: 04-13-[address] [facility] Start: 10-31-2022 Patient discharge [facility] Start: 10-30-2022 End: 10-30-2022 Application of intermittent pneumatic compression device [facility] Start: 10-30-2022 Measuring intake and output [facility] Start: 10-30-2022 Vital signs measurements [facility] Start: 10-30-2022 Admission procedure [facility] Start: 10-30-2022 Following clinical pathway protocol [facility] Start: 10-30-2022 Patient referral to dietitian [facility] Start: 09-30-2022 [facility] Start: 09-30-2022 End: 09-30-2022 Blood culture [facility] Start: 09-30-2022 [facility] Start: 08-13-2022 ADVANCE DIRECTIVE DISCUSSION ADVANCE DIRECTIVE DISCUSSION [facility] Start: 08-13-2022 DEPRESSION ASSESSMENT DEPRESSION ASSESSMENT [facility] Start: 06-08-2022 [facility] Work Phone: Start: 06-07-2022 Patient discharge [facility] Start: 06-06-2022 Following clinical pathway protocol [facility] Start: 06-06-2022 Referral to occupational therapist [facility] Start: 06-06-2022 Referral to service [facility] Start: 06-06-2022 Ambulation without limitation [facility] Start: 06-06-2022 Assessment of risk of venous thromboembolism [facility] Start: 06-06-2022 Consultation [facility] Start: 06-06-2022 Elevation of affected extremity [facility] Start: 06-06-2022 Insertion of catheter into peripheral vein [facility] Start: 06-06-2022 Providing care according to standard [facility] Start: 06-06-2022 [facility] Start: 06-06-2022 Following clinical pathway protocol [facility] Start: 06-06-2022 Admission procedure [facility] Start: 06-06-2022 Inhalation therapy procedure [facility] Start: 06-06-2022 Patient referral to dietitian [facility] Start: 06-06-2022 [facility] Start: 04-13-[address] [facility] Start: 12-22-2021 Patient referral [facility] Work Phone: Start: 11-20-2021 COVID-19 VACCINE (5 - Booster) COVID-19 VACCINE (5 - Booster) 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 Start: 09-16-2021 COVID-19 VACCINE (5 - Booster) COVID-19 VACCINE (5 - Booster) [facility] Start: 09-16-2021 Covid-19 Vaccine (5 - Pfizer risk series) Covid-19 Vaccine (5 - Pfizer risk series) [facility] Start: 08-13-2021 ADVANCE DIRECTIVE DISCUSSION ADVANCE DIRECTIVE DISCUSSION [facility] Start: 08-13-2021 DEPRESSION ASSESSMENT DEPRESSION ASSESSMENT [facility] Start: 02-16-[address] [facility] Start: 02-16-2021 COLORECTAL CANCER SCREENING COLORECTAL CANCER SCREENING [facility] Start: 12-07-2020 COVID-19 VACCINE (3 - Pfizer risk series) COVID-19 VACCINE (3 - Pfizer risk series) [facility] Start: 07-30-2020 Diabetes: Estimated Glomerular Filtration Rate for Kidney Health Diabetes: Estimated Glomerular Filtration Rate for Kidney Health [facility] Start: 2009 RSV Immunization aged 60 or older (1 - 1-dose 60+ series) RSV Immunization aged 60 or older (1 - 1-dose 60+ series) [facility] Start: 2009 RSV Vaccine (1 - 1-dose 60+ series) RSV Vaccine (1 - 1-dose 60+ series) [facility] Start: 1999 SHINGRIX VACCINE (1 of 2) SHINGRIX VACCINE (1 of 2) [facility] Start: 1999 Zoster Vaccines (1 of 2) Zoster Vaccines (1 of 2) [facility] Start: 1994 COLOGUARD (FIT-DNA) COLOGUARD (FIT-DNA) [facility] Start: [address] [facility] Start: 1994 COLORECTAL CANCER SCREENING COLORECTAL CANCER SCREENING [facility] Start: [address] [facility] Start: 1994 FECAL OCCULT BLOOD FECAL OCCULT BLOOD [facility] Start: 1994 Screening for malignant neoplasm of colon [facility] Start: [address] [facility] Start: 01-02-1984 Lipid 1996 panel - Serum or Plasma Lipid Screening [facility] Start: 01-02-[address] L[address] SCREEN [facility] Start: 01-02-1968 DTaP/Tdap/Td Vaccines (1 - Tdap) DTaP/Tdap/Td Vaccines (1 - Tdap) [facility] Start: 01-02-1968 SHINGRIX VACCINE (1 of 2) SHINGRIX VACCINE (1 of 2) [facility] Start: 01-02-[address] [facility] Start: 1967 Anxiety Screening Anxiety Screening [facility] Start: 1967 Depression Screening Depression Screening [facility] Start: 1967 Diabetes: Urine Albumin-Creatinine Ratio for Kidney Health Diabetes: Urine Albumin-Creatinine Ratio for Kidney Health [facility] Start: 1967 HEPATITIS C SCREENING HEPATITIS C SCREENING [facility] Start: 1967 Hepatitis C screening Hepatitis C Screening [facility] Start: 1961 Adult depression screening assessment DEPRESSION SCREENING [facility] Start: 1955 Pneumococcal Vaccine: 65+ (1 - PCV) Pneumococcal Vaccine: 65+ (1 - PCV) [facility] Start: 1955 PNEUMOCOCCAL: 65+ (1 - PCV) PNEUMOCOCCAL: 65+ (1 - PCV) [facility] Start: 1949 Lipid panel Lipid Panel [facility] Start: 1949 Medicare Advantage Annual Wellness Visit (AWV) Medicare Advantage Annual Wellness Visit (AWV) [facility] Start: 1949 Screening for malignant neoplasm of colon [facility] Start: 1949 Screening for osteoporosis Bone Density Scan [facility] Anaerobic Culture Anaerobic Culture [facility] Work Phone: Bacteria identified in Blood by Culture Blood Culture [facility] Bacteria identified in Unspecified specimen by Anaerobe culture [facility] Work Phone: Bacteria identified in Urine by Culture Urine Culture [facility] Bacterial culture Body Fluid Culture [facility] Work Phone: Colonoscopy [facility] End: 02-14-2026 CT Ankle - left WO contrast CT ANKLE WO IVCON LEFT Radiology Routine Chronic pain of left ankle 1 Occurrences starting 01/15/2025 until 02/14/2026 [facility] [facility] [place] Work Phone: Comment on above: 1 Occurrences starting 01/15/2025 until 02/14/2026 End: 01-21-2025 CT Ankle - left WO contrast [facility] [place] Work Phone: Comment on above: 1 Occurrences starting 01/21/2025 until 01/21/2025 End: 05-24-2026 CT Lumbar spine WO contrast CT LUMBAR SPINE WO IVCON Radiology Routine Spinal stenosis of lumbar region with neurogenic claudication 1 Occurrences starting 04/24/2025 until 05/24/2026 [facility] [place] Work Phone: Comment on above: 1 Occurrences starting 04/24/2025 until 05/24/2026 End: 02-03-2026 EMG(NEURO/NI) EMG(NEURO/NI) EMG Routine Low back pain, unspecified back pain laterality, unspecified chronicity, unspecified whether sciatica present Chronic left-sided low back pain with left-sided sciatica Left foot drop Chronic right-sided low back pain with right-sided sciatica Pain in left ankle and joints of left foot Polyneuropathy Spondylolisthesis, lumbar region 1 Occurrences starting 02/03/2025 until 02/03/2026 [facility] Comment on above: 1 Occurrences starting 02/03/2025 until 02/03/2026 End: 11-29-2025 MR Ankle - left WO contrast MRI ANKLE WO IVCON LEFT Radiology Routine Acute left ankle pain 1 Occurrences starting 10/30/2024 until 11/29/2025 [facility] [place] Work Phone: Comment on above: 1 Occurrences starting 10/30/2024 until 11/29/2025 End: 11-13-2024 MR Ankle - left WO contrast [facility] [place] Work Phone: Comment on above: 1 Occurrences starting 11/13/2024 until 11/13/2024 End: 03-05-2026 MR Lumbar spine WO contrast MRI LUMBAR SPINE WO IVCON Radiology Routine Low back pain, unspecified back pain laterality, unspecified chronicity, unspecified whether sciatica present Chronic left-sided low back pain with left-sided sciatica Left foot drop Chronic right-sided low back pain with right-sided sciatica Pain in left ankle and joints of left foot Polyneuropathy Spondylolisthesis, lumbar region 1 Occurrences starting 02/03/2025 until 03/05/2026 [facility] [place] Work Phone: Comment on above: 1 Occurrences starting 02/03/2025 until 03/05/2026 Patient Education [facility] Work Phone: Patient referral [facility] Work Phone: RF Lumbar spine epid ural space Views W contrast epidural IR EPIDURAL INJ LUMBAR (AK) Radiology Routine Left leg pain Ordered: 03/25/2025 [facility] [place] Work Phone: Comment on above: Ordered: 03/25/2025 Serum immunofixation [facility] Work Phone: Urine immunofixation [facility] Work Phone: End: 04-29-2023 XR FOOT GENERAL 3V AP/LAT/OBL RIGHT XR FOOT GENERAL 3V AP/LAT/OBL RIGHT Radiology Routine Charcot's joint of right foot 1 Occurrences starting 03/30/2022 until 04/29/2023 [facility] [place] Work Phone: Comment on above: 1 Occurrences starting 03/30/2022 until 04/29/2023 [facility] Immunizations Immunization Date Immunization Notes Care Provider Brigitte lara 08-07-2023 SARS-CoV-2 (COVID-19 ) [id number] DR JOE DURAND MD [facility] 05-07-2023 influenza virus vacc ine, unspecified formulation DR JOE DURAND MD [facility] 05-07-2023 influenza, high dose seasonal, preservative-free Ganga Acosta DO Work Phone: [facility] 05-07-2023 pneumococcal 20-willian nt conjugate vaccine DR JOE DURAND MD [facility] 05-07-2023 Pneumococcal Conjuga te PCV20, Pf (Prevnar 20) Ganga Acosta DO Work Phone: [facility] 06-07-2022 influenza, injectabl e, quadrivalent, preservative free Dr. Ganga Acosta DO Work Phone: [facility] 06-07-2022 influenza, seasonal, injectable Dr. Ganga Acosta Work Phone: [facility] 06-07-2022 influenza virus vacc ine, unspecified formulation Paige RICOM Work Phone: [facility] 07-22-2021 Covid (Pfizer) Dr. Ganga Acosta Work Phone: [facility] 11-09-2020 Covid (Pfizer) Dr. Ganga Acosta Work Phone: [facility] 10-19-2020 Covid (Pfizer) Dr. Ganga Acosta Work Phone: [facility] Comment on above: Result Comment: 2023: [id number] 05-31-2020 influenza virus vacc ine, unspecified formulation DR JOE DURAND MD [facility] 05-31-2020 influenza, injectabl e, quadrivalent, contains preservative Ganga Acosta DO Work Phone: [facility] 05-31-2020 influenza, injectabl e, quadrivalent, preservative free Dr. Ganga Acosta DO Work Phone: [facility] 05-31-2020 influenza, seasonal, injectable Dr. Ganga Acosta Work Phone: [facility] 05-31-2020 influenza, seasonal, injectable, preservative free Ganga Acosta DO Work Phone: [facility] 05-31-2020 Fluad Quad (65yr up)(PF) 60 mcg (15 mcg x 4)/0.5mL IM syringe (flu vac Dr. Ganga Acosta Work Phone: [facility] Work Phone: 06-06-2019 Influenza, Seasonal, Quadrivalent, Adjuvanted Ganga Acosta DO Work Phone: [facility] 06-06-2019 Fluad 2018- 65yr up(PF)45 mcg(15 mcgx3)/0.5 mL intramuscular syringe (flu vac Dr. Ganga Acosta Work Phone: [facility] Work Phone: 05-29-2018 influenza virus vacc ine, unspecified formulation DR JOE DURAND MD [facility] Comment on above: Result Comment: 2023: VIS DATE: 03/19/2015 05-29-2018 influenza, high dose seasonal, preservative-free Ganga Acosta DO Work Phone: [facility] 05-29-2018 pneumococcal polysaccharide vaccine, 23 valent Ganga Acosta DO Work Phone: [facility] Comment on above: Result Comment: 2023: VIS DATE: 12/04/2014 05-21-2017 influenza virus vacc ine, unspecified formulation DR JOE DURAND MD [facility] Comment on above: Result Comment: 2023: VIS DATE: 03/19/2015 05-21-2017 influenza, injectabl e, quadrivalent, contains preservative Ganga Acosta DO Work Phone: [facility] 03-02-2017 pneumococcal conjuga te vaccine, 13 valent Ganga Acosta DO Work Phone: [facility] Comment on above: Result Comment: 2023: VIS DATE: 06/17/2015 05-10-2016 influenza virus vacc ine, unspecified formulation DR JOE DURAND MD [facility] 05-10-2016 influenza, injectabl e, quadrivalent, preservative free Dr. Ganga Acosta DO Work Phone: [facility] 05-10-2016 influenza, seasonal, injectable Dr. Ganga Acosta Work Phone: [facility] 05-10-2016 influenza, seasonal, injectable, preservative free Ganga Acosta DO Work Phone: [facility] 07-21-2015 influenza virus vacc ine, unspecified formulation DR JOE DURAND MD [facility] 07-21-2015 influenza, injectabl e, quadrivalent, preservative free Dr. Ganga Acosta DO Work Phone: [facility] 07-21-2015 influenza, seasonal, injectable Dr. Ganga Acosta Work Phone: [facility] 07-21-2015 influenza, seasonal, injectable, preservative free Ganga Acosta DO Work Phone: [facility] 07-21-2014 influenza virus vacc ine, unspecified formulation DR JOE DURAND MD [facility] 07-21-2014 influenza, seasonal, injectable Ganga Acosta DO Work Phone: [facility] 05-13-2014 influenza, injectabl e, quadrivalent, preservative free Dr. Ganga Acosta DO Work Phone: [facility] 05-13-2014 influenza, seasonal, injectable Dr. Ganga Acosta Work Phone: [facility] 05-13-2014 influenza, seasonal, injectable, preservative free Ganga Acosta DO Work Phone: [facility] Payers Date Payer Category Payer Medicare [id number] 2024 Self-pay [id number] 2023 Private Health Insurance 2021 Medicare AETNA MEDICARE A ETNA MEDICARE PPO [id number] 2021-Present [phone] [address] [place] [address] [facility] [id number] 2021 Medicare [id number] 2021 Medicare (Managed Care) [place] [id number] 2021 Medicare HMO AETNA MEDICARE [id number] 2021 Private Health Insurance [facility] [id number] 2012 Medicare [id number] 1950 Unknown [id number]. 1950 Unknown [id number] .[id number]. 1950 Unknown [id number] .[id number]. 1950 Unknown [id number] .[id number]. 62 1950 Unknown [id number] .[id number]. 1949 Unknown [id number]. 62 1950 Unknown [id number]. 62 1950 Unknown [id number] .[id number]. 1950 Unknown [id number]. 627 Unknown [id number] 2.840.1.626135.3.579.2. 462 Unknown [id number] [id number]. 462 Unknown [id number] 2.16.840.1.155797.3.579.2. 462 Unknown [id number] 2.16.840.1.607497.3.579.2. 462 Unknown [id number] [id number]. 462 Unknown [id number]. 462 Unknown [id number] [id number]. 462 Unknown [id number]. 462 Social History Date Type Detail Facility Start: 12-27-2021 End: 10-30-2022 Tobacco smoking status OHIS Unknown if ever smoked [facility] Start: 11-25-2020 None [facility] Start: 11-25-2020 Spouse/ Signif icant Other [facility] Start: 11-25-2020 Non-smoker [facility] Start: 1950 Sex Assigned At Male [facility] Start: 10-21-2015 End: 10-01-2023 Tobacco smoking status OHIS Never smoked tobacco [facility] Start: 10-21-2015 End: 10-01-2023 Tobacco use and exposure Smokeless tobacco non-user [facility] Start: 04-11-2021 End: 01-12-2025 Alcohol intake Current non-drinker of alcohol (finding) [facility] Start: 1950 Sex Assigned At Not on file [facility] Start: 02-06-2022 End: 05-07-2023 Exposure to SARS-CoV-2 (event) Not sure [facility] Start: 03-01-2023 End: 05-13-2024 History of Social function [facility] Start: 03-01-2023 End: 05-13-[address] [facility] Start: 07-14-2012 National Score (1-100), lower number is lower risk 56 [facility] Start: 01-16-2022 Gender identity Identifies as male gender (finding) [facility] Sex Assigned At [facility] Start: 11-11-2014 End: 03-13-2022 Sex Male (finding) [facility] Start: 04-09-2025 End: 04-24-2025 Alcoholic beverage intake Lifetime non-drinker (finding) [facility] How often to you hav e a drink containing alcohol? Never [facility] NEGATED: Highlighted rowStart: NINF History of tobacco use Passive smoker [facility] Medical Equipment Procedure Code Equipment Code Equipment Origin al Text Equipment Identifier Dates Fusion, talonavicular joint 3.5 CORTICAL FDA Start: 07-16-2020 Fusion, talonavicular joint 3.5 LOCKING SCREW FDA Start: 07-16-2020 Fusion, talonavicular joint 3.5 LOCKING SCREW FDA Start: 07-16-2020 Fusion, talonavicular joint 3.5 LOCKING SCREW FDA Start: 07-16-2020 Fusion, talonavicular joint 3.5 LOCKING SCREW FDA Start: 07-16-2020 Fusion, talonavicular joint 3.5 MM CORTICAL SCREW FDA Start: 07-16-2020 Fusion, talonavicular joint 3.5MM TI LOCKING SCREW FDA Start: 07-16-2020 Fusion, talonavicular joint 4.0 CANCELLOUS SCREW FDA Start: 07-16-2020 Fusion, talonavicular joint BONE,CRUSHED CANCELLOUS 15CC FDA Start: 07-16-2020 Fusion, talonavicular joint FUSION PLATE- FDA Start: 07-16-2020 Fusion, talonavicular joint LAPIDUS PLATE LOW PROFILE FDA Start: 07-16-2020 Fusion, talonavicular joint 3.5 CORTICAL SCREW FDA Start: 07-16-2020 Fusion, talonavicular joint 3.5 CORTICAL SCREW FDA Start: 07-16-2020 Fusion, talonavicular joint 3.5 CORTICAL SCREW FDA Start: 07-16-2020 Fusion, talonavicular joint 3.5 LOCKING SCREW FDA Start: 07-16-2020 Fusion, talonavicular joint 3.5 LOCKING SCREW FDA Start: 07-16-2020 Fusion, talonavicular joint 3.5 LOCKING SCREW FDA Start: 07-16-2020 Fusion, talonavicular joint 3.5 LOCKING SCREW FDA Start: 07-16-2020 Fusion, talonavicular joint 3.5 LOCKING SCREW FDA Start: 07-16-2020 Fusion, talonavicular joint 3.5 CORTICAL FDA Start: 07-16-2020 Fusion, talonavicular joint 3.5 LOCKING SCREW FDA Start: 07-16-2020 Fusion, talonavicular joint 3.5 LOCKING SCREW FDA Start: 07-16-2020 Fusion, talonavicular joint 3.5 LOCKING SCREW FDA Start: 07-16-2020 Fusion, talonavicular joint 3.5 LOCKING SCREW FDA Start: 07-16-2020 Fusion, talonavicular joint 3.5 MM CORTICAL SCREW FDA Start: 07-16-2020 Fusion, talonavicular joint 3.5MM TI LOCKING SCREW FDA Start: 07-16-2020 Fusion, talonavicular joint 4.0 CANCELLOUS SCREW FDA Start: 07-16-2020 Fusion, talonavicular joint BONE,CRUSHED CANCELLOUS 15CC FDA Start: 07-16-2020 Fusion, talonavicular joint FUSION PLATE- FDA Start: 07-16-2020 Fusion, talonavicular joint LAPIDUS PLATE LOW PROFILE FDA Start: 07-16-2020 Fusion, talonavicular joint 3.5 CORTICAL SCREW FDA Start: 07-16-2020 Fusion, talonavicular joint 3.5 CORTICAL SCREW FDA Start: 07-16-2020 Fusion, talonavicular joint 3.5 CORTICAL SCREW FDA Start: 07-16-2020 Fusion, talonavicular joint 3.5 LOCKING SCREW FDA Start: 07-16-2020 Fusion, talonavicular joint 3.5 LOCKING SCREW FDA Start: 07-16-2020 Fusion, talonavicular joint 3.5 LOCKING SCREW FDA Start: 07-16-2020 Fusion, talonavicular joint 3.5 LOCKING SCREW FDA Start: 07-16-2020 Fusion, talonavicular joint 3.5 LOCKING SCREW FDA Start: 07-16-2020 Fusion, talonavicular joint 3.5 CORTICAL FDA Start: 07-16-2020 Fusion, talonavicular joint 3.5 LOCKING SCREW FDA Start: 07-16-2020 Fusion, talonavicular joint 3.5 LOCKING SCREW FDA Start: 07-16-2020 Fusion, talonavicular joint 3.5 LOCKING SCREW FDA Start: 07-16-2020 Fusion, talonavicular joint 3.5 LOCKING SCREW FDA Start: 07-16-2020 Fusion, talonavicular joint 3.5 MM CORTICAL SCREW FDA Start: 07-16-2020 Fusion, talonavicular joint 3.5MM TI LOCKING SCREW FDA Start: 07-16-2020 Fusion, talonavicular joint 4.0 CANCELLOUS SCREW FDA Start: 07-16-2020 Fusion, talonavicular joint BONE,CRUSHED CANCELLOUS 15CC FDA Start: 07-16-2020 Fusion, talonavicular joint FUSION PLATE- FDA Start: 07-16-2020 Fusion, talonavicular joint LAPIDUS PLATE LOW PROFILE FDA Start: 07-16-2020 Fusion, talonavicular joint 3.5 CORTICAL SCREW FDA Start: 07-16-2020 Fusion, talonavicular joint 3.5 CORTICAL SCREW FDA Start: 07-16-2020 Fusion, talonavicular joint 3.5 CORTICAL SCREW FDA Start: 07-16-2020 Fusion, talonavicular joint 3.5 LOCKING SCREW FDA Start: 07-16-2020 Fusion, talonavicular joint 3.5 LOCKING SCREW FDA Start: 07-16-2020 Fusion, talonavicular joint 3.5 LOCKING SCREW FDA Start: 07-16-2020 Fusion, talonavicular joint 3.5 LOCKING SCREW FDA Start: 07-16-2020 Fusion, talonavicular joint 3.5 LOCKING SCREW FDA Start: 07-16-2020 Fusion, talonavicular joint 3.5 CORTICAL FDA Start: 07-16-2020 Fusion, talonavicular joint 3.5 LOCKING SCREW FDA Start: 07-16-2020 Fusion, talonavicular joint 3.5 LOCKING SCREW FDA Start: 07-16-2020 Fusion, talonavicular joint 3.5 LOCKING SCREW FDA Start: 07-16-2020 Fusion, talonavicular joint 3.5 LOCKING SCREW FDA Start: 07-16-2020 Fusion, talonavicular joint 3.5 MM CORTICAL SCREW FDA Start: 07-16-2020 Fusion, talonavicular joint 3.5MM TI LOCKING SCREW FDA Start: 07-16-2020 Fusion, talonavicular joint 4.0 CANCELLOUS SCREW FDA Start: 07-16-2020 Fusion, talonavicular joint BONE,CRUSHED CANCELLOUS 15CC FDA Start: 07-16-2020 Fusion, talonavicular joint FUSION PLATE- FDA Start: 07-16-2020 Fusion, talonavicular joint LAPIDUS PLATE LOW PROFILE FDA Start: 07-16-2020 Fusion, talonavicular joint 3.5 CORTICAL SCREW FDA Start: 07-16-2020 Fusion, talonavicular joint 3.5 CORTICAL SCREW FDA Start: 07-16-2020 Fusion, talonavicular joint 3.5 CORTICAL SCREW FDA Start: 07-16-2020 Fusion, talonavicular joint 3.5 LOCKING SCREW FDA Start: 07-16-2020 Fusion, talonavicular joint 3.5 LOCKING SCREW FDA Start: 07-16-2020 Fusion, talonavicular joint 3.5 LOCKING SCREW FDA Start: 07-16-2020 Fusion, talonavicular joint 3.5 LOCKING SCREW FDA Start: 07-16-2020 Fusion, talonavicular joint 3.5 LOCKING SCREW FDA Start: 07-16-2020 Fusion, talonavicular joint 3.5 CORTICAL FDA Start: 07-16-2020 Fusion, talonavicular joint 3.5 LOCKING SCREW FDA Start: 07-16-2020 Fusion, talonavicular joint 3.5 LOCKING SCREW FDA Start: 07-16-2020 Fusion, talonavicular joint 3.5 LOCKING SCREW FDA Start: 07-16-2020 Fusion, talonavicular joint 3.5 LOCKING SCREW FDA Start: 07-16-2020 Fusion, talonavicular joint 3.5 MM CORTICAL SCREW FDA Start: 07-16-2020 Fusion, talonavicular joint 3.5MM TI LOCKING SCREW FDA Start: 07-16-2020 Fusion, talonavicular joint 4.0 CANCELLOUS SCREW FDA Start: 07-16-2020 Fusion, talonavicular joint BONE,CRUSHED CANCELLOUS 15CC FDA Start: 07-16-2020 Fusion, talonavicular joint FUSION PLATE- FDA Start: 07-16-2020 Fusion, talonavicular joint LAPIDUS PLATE LOW PROFILE FDA Start: 07-16-2020 Fusion, talonavicular joint 3.5 CORTICAL SCREW FDA Start: 07-16-2020 Fusion, talonavicular joint 3.5 CORTICAL SCREW FDA Start: 07-16-2020 Fusion, talonavicular joint 3.5 CORTICAL SCREW FDA Start: 07-16-2020 Fusion, talonavicular joint 3.5 LOCKING SCREW FDA Start: 07-16-2020 Fusion, talonavicular joint 3.5 LOCKING SCREW FDA Start: 07-16-2020 Fusion, talonavicular joint 3.5 LOCKING SCREW FDA Start: 07-16-2020 Fusion, talonavicular joint 3.5 LOCKING SCREW FDA Start: 07-16-2020 Fusion, talonavicular joint 3.5 LOCKING SCREW FDA Start: 07-16-2020 Fusion, talonavicular joint 3.5 CORTICAL FDA Start: 07-16-2020 Fusion, talonavicular joint 3.5 LOCKING SCREW FDA Start: 07-16-2020 Fusion, talonavicular joint 3.5 LOCKING SCREW FDA Start: 07-16-2020 Fusion, talonavicular joint 3.5 LOCKING SCREW FDA Start: 07-16-2020 Fusion, talonavicular joint 3.5 LOCKING SCREW FDA Start: 07-16-2020 Fusion, talonavicular joint 3.5 MM CORTICAL SCREW FDA Start: 07-16-2020 Fusion, talonavicular joint 3.5MM TI LOCKING SCREW FDA Start: 07-16-2020 Fusion, talonavicular joint 4.0 CANCELLOUS SCREW FDA Start: 07-16-2020 Fusion, talonavicular joint BONE,CRUSHED CANCELLOUS 15CC FDA Start: 07-16-2020 Fusion, talonavicular joint FUSION PLATE- FDA Start: 07-16-2020 Fusion, talonavicular joint LAPIDUS PLATE LOW PROFILE FDA Start: 07-16-2020 Fusion, talonavicular joint 3.5 CORTICAL SCREW FDA Start: 07-16-2020 Fusion, talonavicular joint 3.5 CORTICAL SCREW FDA Start: 07-16-2020 Fusion, talonavicular joint 3.5 CORTICAL SCREW FDA Start: 07-16-2020 Fusion, talonavicular joint 3.5 LOCKING SCREW FDA Start: 07-16-2020 Fusion, talonavicular joint 3.5 LOCKING SCREW FDA Start: 07-16-2020 Fusion, talonavicular joint 3.5 LOCKING SCREW FDA Start: 07-16-2020 Fusion, talonavicular joint 3.5 LOCKING SCREW FDA Start: 07-16-2020 Fusion, talonavicular joint 3.5 LOCKING SCREW FDA Start: 07-16-2020 Fusion, talonavicular joint 3.5 CORTICAL FDA Start: 07-16-2020 Fusion, talonavicular joint 3.5 LOCKING SCREW FDA Start: 07-16-2020 Fusion, talonavicular joint 3.5 LOCKING SCREW FDA Start: 07-16-2020 Fusion, talonavicular joint 3.5 LOCKING SCREW FDA Start: 07-16-2020 Fusion, talonavicular joint 3.5 LOCKING SCREW FDA Start: 07-16-2020 Fusion, talonavicular joint 3.5 MM CORTICAL SCREW FDA Start: 07-16-2020 Fusion, talonavicular joint 3.5MM TI LOCKING SCREW FDA Start: 07-16-2020 Fusion, talonavicular joint 4.0 CANCELLOUS SCREW FDA Start: 07-16-2020 Fusion, talonavicular joint BONE,CRUSHED CANCELLOUS 15CC FDA Start: 07-16-2020 Fusion, talonavicular joint FUSION PLATE- FDA Start: 07-16-2020 Fusion, talonavicular joint LAPIDUS PLATE LOW PROFILE FDA Start: 07-16-2020 Fusion, talonavicular joint 3.5 CORTICAL SCREW FDA Start: 07-16-2020 Fusion, talonavicular joint 3.5 CORTICAL SCREW FDA Start: 07-16-2020 Fusion, talonavicular joint 3.5 CORTICAL SCREW FDA Start: 07-16-2020 Fusion, talonavicular joint 3.5 LOCKING SCREW FDA Start: 07-16-2020 Fusion, talonavicular joint 3.5 LOCKING SCREW FDA Start: 07-16-2020 Fusion, talonavicular joint 3.5 LOCKING SCREW FDA Start: 07-16-2020 Fusion, talonavicular joint 3.5 LOCKING SCREW FDA Start: 07-16-2020 Fusion, talonavicular joint 3.5 LOCKING SCREW FDA Start: 07-16-2020 Fusion, talonavicular joint 3.5 CORTICAL FDA Start: 07-16-2020 Fusion, talonavicular joint 3.5 LOCKING SCREW FDA Start: 07-16-2020 Fusion, talonavicular joint 3.5 LOCKING SCREW FDA Start: 07-16-2020 Fusion, talonavicular joint 3.5 LOCKING SCREW FDA Start: 07-16-2020 Fusion, talonavicular joint 3.5 LOCKING SCREW FDA Start: 07-16-2020 Fusion, talonavicular joint 3.5 MM CORTICAL SCREW FDA Start: 07-16-2020 Fusion, talonavicular joint 3.5MM TI LOCKING SCREW FDA Start: 07-16-2020 Fusion, talonavicular joint 4.0 CANCELLOUS SCREW FDA Start: 07-16-2020 Fusion, talonavicular joint BONE,CRUSHED CANCELLOUS 15CC FDA Start: 07-16-2020 Fusion, talonavicular joint FUSION PLATE- FDA Start: 07-16-2020 Fusion, talonavicular joint LAPIDUS PLATE LOW PROFILE FDA Start: 07-16-2020 Fusion, talonavicular joint 3.5 CORTICAL SCREW FDA Start: 07-16-2020 Fusion, talonavicular joint 3.5 CORTICAL SCREW FDA Start: 07-16-2020 Fusion, talonavicular joint 3.5 CORTICAL SCREW FDA Start: 07-16-2020 Fusion, talonavicular joint 3.5 LOCKING SCREW FDA Start: 07-16-2020 Fusion, talonavicular joint 3.5 LOCKING SCREW FDA Start: 07-16-2020 Fusion, talonavicular joint 3.5 LOCKING SCREW FDA Start: 07-16-2020 Fusion, talonavicular joint 3.5 LOCKING SCREW FDA Start: 07-16-2020 Fusion, talonavicular joint 3.5 LOCKING SCREW FDA Start: 07-16-2020 Fusion, talonavicular joint 3.5 CORTICAL FDA Start: 07-16-2020 Fusion, talonavicular joint 3.5 LOCKING SCREW FDA Start: 07-16-2020 Fusion, talonavicular joint 3.5 LOCKING SCREW FDA Start: 07-16-2020 Fusion, talonavicular joint 3.5 LOCKING SCREW FDA Start: 07-16-2020 Fusion, talonavicular joint 3.5 LOCKING SCREW FDA Start: 07-16-2020 Fusion, talonavicular joint 3.5 MM CORTICAL SCREW FDA Start: 07-16-2020 Fusion, talonavicular joint 3.5MM TI LOCKING SCREW FDA Start: 07-16-2020 Fusion, talonavicular joint 4.0 CANCELLOUS SCREW FDA Start: 07-16-2020 Fusion, talonavicular joint BONE,CRUSHED CANCELLOUS 15CC FDA Start: 07-16-2020 Fusion, talonavicular joint FUSION PLATE- FDA Start: 07-16-2020 Fusion, talonavicular joint LAPIDUS PLATE LOW PROFILE FDA Start: 07-16-2020 Fusion, talonavicular joint 3.5 CORTICAL SCREW FDA Start: 07-16-2020 Fusion, talonavicular joint 3.5 CORTICAL SCREW FDA Start: 07-16-2020 Fusion, talonavicular joint 3.5 CORTICAL SCREW FDA Start: 07-16-2020 Fusion, talonavicular joint 3.5 LOCKING SCREW FDA Start: 07-16-2020 Fusion, talonavicular joint 3.5 LOCKING SCREW FDA Start: 07-16-2020 Fusion, talonavicular joint 3.5 LOCKING SCREW FDA Start: 07-16-2020 Fusion, talonavicular joint 3.5 LOCKING SCREW FDA Start: 07-16-2020 Fusion, talonavicular joint 3.5 LOCKING SCREW FDA Start: 07-16-2020 Fusion, talonavicular joint 3.5 CORTICAL FDA Start: 07-16-2020 Fusion, talonavicular joint 3.5 LOCKING SCREW FDA Start: 07-16-2020 Fusion, talonavicular joint 3.5 LOCKING SCREW FDA Start: 07-16-2020 Fusion, talonavicular joint 3.5 LOCKING SCREW FDA Start: 07-16-2020 Fusion, talonavicular joint 3.5 LOCKING SCREW FDA Start: 07-16-2020 Fusion, talonavicular joint 3.5 MM CORTICAL SCREW FDA Start: 07-16-2020 Fusion, talonavicular joint 3.5MM TI LOCKING SCREW FDA Start: 07-16-2020 Fusion, talonavicular joint 4.0 CANCELLOUS SCREW FDA Start: 07-16-2020 Fusion, talonavicular joint BONE,CRUSHED CANCELLOUS 15CC FDA Start: 07-16-2020 Fusion, talonavicular joint FUSION PLATE- FDA Start: 07-16-2020 Fusion, talonavicular joint LAPIDUS PLATE LOW PROFILE FDA Start: 07-16-2020 Fusion, talonavicular joint 3.5 CORTICAL SCREW FDA Start: 07-16-2020 Fusion, talonavicular joint 3.5 CORTICAL SCREW FDA Start: 07-16-2020 Fusion, talonavicular joint 3.5 CORTICAL SCREW FDA Start: 07-16-2020 Fusion, talonavicular joint 3.5 LOCKING SCREW FDA Start: 07-16-2020 Fusion, talonavicular joint 3.5 LOCKING SCREW FDA Start: 07-16-2020 Fusion, talonavicular joint 3.5 LOCKING SCREW FDA Start: 07-16-2020 Fusion, talonavicular joint 3.5 LOCKING SCREW FDA Start: 07-16-2020 Fusion, talonavicular joint 3.5 LOCKING SCREW FDA Start: 07-16-2020 Cystoscopic insertion of stent ([id number]) Polymeric ureteral stent ([id number] FDA Start: 03-21-2023 Locking Screw 3.5x70mm - [id number] Start: 08-18-2024 Goals Date Patient Goal Desired Activity /State Personal health goal Functional Status Date Assessment Result Facility 04-09-2025 Total score [AUDIT-C] 0 04/09/20 9:28 AM Lazara Garcia LPN [facility] 11-07-2023 Functional Status Nurse Corky garza q2hrs Performed Other: 7AM-127PM [facility] 11-07-2023 Functional Status Mod I [facility] 11-07-2023 Functional Status Multilevel quintin e, 1st floor bedroom, 1st floor bathroom [facility] 11-07-2023 Functional Status [facility] 11-07-2023 Functional Status [facility] 11-07-2023 Functional Status [facility] 11-06-2023 Functional Status [facility] 11-06-2023 Functional Status [facility] 11-06-2023 Functional Status Sensory Deficits None [facility] 11-06-2023 Functional Status Minimum assistance [facility] 11-06-2023 Functional Status NPO Status Maintained [facility] 09-03-2023 Functional Status Objective: ROM/ Strength: see chart Cardiovascular screen: BP: 110/74 HR: 78 O2 sat: 91% Observation: No excess warmth, redness no obvious signs of infection RUE. No excess bruising on the operative side. [facility] 08-22-2023 Functional Status Lunch Percent 100 [facility] 08-22-2023 Functional Status Single point cane [facility] 08-22-2023 Functional Status Sequential Com pression Device bilateral knee high applied/on [facility] 08-22-2023 Functional Status Identified as high risk, Fall ID band on, Room located near nursing station, Door open, Non-Slip footwear [facility] 08-22-2023 Functional Status Anitra Yang [facility] 08-22-2023 Functional Status Anitra Yang [facility] 08-22-2023 Functional Status Anitra Yang [facility] 08-21-2023 Functional Status Anitra Yang [facility] 08-21-2023 Functional Status Mod I Anitra [facility] 08-21-2023 Functional Status Multilevel quintin e, 1st floor bedroom, 1st floor bathroom [facility] 08-21-2023 Functional Status None Anitra Yang [facility] 08-21-2023 Functional Status elevated on pi llows, ice on [facility] 08-21-2023 Functional Status confirmed Anitra [facility] 07-27-2023 Functional Status Sensory Deficits None [facility] 10-31-2022 Functional status Ambulates [facility] Work Phone: 06-07-2022 Functional status Activity Abili ty With Assist of 1 [facility] Work Phone: 06-07-2022 Functional status Ambulates [facility] Work Phone: [facility] Mental Status Date Assessment Result Facility 02-20-2025 Cognitive function Light Pain [facility] Work Phone: 02-20-2025 Cognitive function Patient Orien tation Person;Place;Time [facility] Work Phone: 11-09-2024 Cognitive function Awake;Alert;A ppropriate;Follow s Commands [facility] Work Phone: 11-07-2023 Mental Status Oriented x 4 [facility] 11-06-2023 [facility]-06-2023 Mental Status [facility] 08-22-2023 Mental Status Oriented x 4 [facility] 08-21-2023 Mental Status [facility] 08-21-2023 Mental Status [facility] 08-21-2023 Mental Status [facility] 10-31-2022 Cognitive function Level Of Cons ciousness Awake;Alert;Appropriate [facility] Work Phone: 10-30-2022 Cognitive function Patient Orien tation Person;Place;Time [facility] Work Phone: 09-30-2022 Cognitive function Level Of Cons ciousness Awake;Alert;Appropriate;Drowsy [facility] Work Phone: 06-07-2022 Cognitive function Appropriate;Cooperativ e [facility] Work Phone: 06-07-2022 Cognitive function Voice/Name [facility] Work Phone: 09-16-2021 Cognitive function Voice/Name [facility] Work Phone: 09-16-2021 Cognitive function Patient Orien tation Person;Place;Time [facility] Work Phone: Clinical Notes 04-05-2021 to 04-27-2025 Wang Thomas MD - 04/27/2025 2:40 PM EDTTelephone Encounter - Demetrice Liang RN - 04/27/2025 10:48 AM EDTTelephone Encounter - Demetrice Liang RN - 04/27/2025 10:48 AM EDT Note Date & Type Note Facility 04-27-2025 History of Present illness Narrative Images from the original note were not included. [facility] - [address] [facility] [address] Dept: [phone] Dept Loc: [phone] Reason for Visit:poison norma and sinus pain Patient was identified and seen today via Telehealth by agreement and consent. I used the following Telehealth technology: Audio and video capabilities. Patient location: Patient Location: Home. This patient encounter is appropriate and reasonable under the circumstances: too sick to leave home . The patient has been advised of the potential risks and limitations of this mode of treatment (including but not limited to the absence of in-person examination) and has agreed to be treated in a remote fashion in spite of them. Any and all of the patient's/patient's family's questions on this issue have been answered and I have made no promises or guarantees to the patient. The patient has also been advised to contact this office for worsening conditions or problems, and seek emergency medical treatment and/or call 911 if the patient deems either necessary. The patient stated that they are currently in the state [facility]. If the patient is a minor, permission has been obtained by the parent or guardian for the patient to receive medical care at this visit. Assessment and Plan Assessment & Plan Poison norma Uncomplicated illness started patient on a Medrol Dosepak and desonide cream to apply over the affected area keep the area clean Orders: amoxicillin (Amoxil) 500 MG capsule; Take 1 capsule (500 mg) by mouth 2 times daily for 7 days. benzonatate (Tessalon) 200 MG capsule; Take 1 capsule (200 mg) by mouth 3 times daily as needed for cough. Do not crush or chew. desonide (DesOwen) 0.05 % cream; Apply topically 2 times daily as needed for irritation. methylPREDNISolone (Medrol Dospak) 4 MG tablets; Take as directed on package. Sinus pain Acute complicated issues start patient on amoxicillin as well as Tessalon Perles for cough supportive therapy can try [id number] Tylenol as needed as needed for fever. Any chest pain or shortness of breath recommend emergency room Orders: amoxicillin (Amoxil) 500 MG capsule; Take 1 capsule (500 mg) by mouth 2 times daily for 7 days. benzonatate (Tessalon) 200 MG capsule; Take 1 capsule (200 mg) by mouth 3 times daily as needed for cough. Do not crush or chew. current treatment plan is effective, no change in therapy, orders and follow up as documented in EMR, lab results reviewed with patient, repeat labs ordered prior to next appointment, reviewed compliance with lifestyle measures, reviewed diet, exercise and weight control, reviewed medications and side effects in detail Return visit in 1 weeks. Subjective HPI 75-year-old male patient of Dr. Acosta complains of sinus pain for the last couple of weeks getting progressively worse no fevers or chills. Has been not tried anything [id number]. He has a cough. He does have a history states of asthma. He feels no worsening shortness of breath he does use albuterol he also complains of poison norma is on his arms it itches he tried some cykk-[id number] lotion it did not help Review of Systems Constitutional: Negative. Negative for activity change, appetite change and fever. HENT: Negative. Negative for congestion. Eyes: Negative. Negative for discharge. Respiratory: Negative. Negative for chest tightness. Cardiovascular: Negative. Gastrointestinal: Negative. Endocrine: Negative. Negative for cold intolerance. Genitourinary: Negative for difficulty urinating. Musculoskeletal: Negative. Neurological: Negative. Negative for dizziness, facial asymmetry and headaches. Hematological: Negative. Allergies[1] Current Medications[2] Problem List[3] Medical History[4] Social History Tobacco Use Smoking status: Never Passive exposure: Never Smokeless tobacco: Never Substance Use Topics Alcohol use: No Alcohol/week: 0.0 standard drinks of alcohol Surgical History[5] Family History[6] Health Maintenance Topic Date Due Diabetes: Urine Albumin-Creatinine Ratio for Kidney Health Never done Hepatitis C Screening Never done DTaP/Tdap/Td Vaccines (1 - Tdap) Never done Zoster Vaccines (1 of 2) Never done Diabetes: Estimated Glomerular Filtration Rate for Kidney Health 07/30/2020 RSV Immunization for Adults (1 - 1-dose 75+ series) Never done Medicare Advantage Annual Wellness Visit 08/13/2024 COVID-19 Vaccine (2024- season) 2025 Influenza Vaccine (1) 04/13/2025 Depression Screening 05/13/2025 Colorectal Cancer Screening 02/20/2030 Pneumococcal Vaccine: 50+ Years Completed RSV Immunization under 20 Months Aged Out HIB Vaccines Aged Out Hepatitis B Vaccines Aged Out IPV Vaccines Aged Out Hepatitis A Vaccines Aged Out Meningococcal Vaccine Aged Out Rotavirus Vaccines Aged Out HPV Vaccines Aged Out Meningococcal B Vaccine Aged Out Objective There were no vitals taken for this visit. Physical Exam Data Reviewed and Summarized Labs: Lab Results Component Value Date WBC 11.8 (H) 07/30/2019 HGB 15.1 07/30/2019 Lab Results Component Value Date NA 140 07/30/2019 K 4.6 07/30/2019 CL 102 07/30/2019 CO2 24 07/30/2019 BUN 19 07/30/2019 CREATININE 0.99 07/30/2019 GLUCOSE 107 (H) 07/30/2019 CALCIUM 9.8 07/30/2019 PROT 7.4 07/30/2019 BILITOT 0.8 07/30/2019 ALKPHOS 84 07/30/2019 AST 36 07/30/2019 @GLUCOSELAB@ No results found for: CHLPL, CHOL No results found for: TRIG No results found for: HDL No results found for: LDLCALC No results found for: VLDL No results found for: CHOLHDLRATIO Imaging/Testing: XR foot 3+ views left 3 weight bearing views of the left ankle and foot were obtained and the following is my interpretation of the findings present of the X-rays: The left ankle shows the ankle mortise and syndesmosis to be anatomically aligned. No signs of ankle arthrosis. No other ankle abnormalities are seen. 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 Mild arthrosis of the calcaneocuboid joint is also seen. There is a screw with what appears to be a partially healed fracture of the second metatarsal. The screw runs from the metatarsal head to the base of the second metatarsal and is intramedullary. 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 Mild arthrosis of the first tarsometatarsal joint is also noted. An increase in longitudinal arch height is noted. Mild calcification at the Achilles tendon insertion site and on the plantar aspect of the calcaneal posterior tuberosity. XR ankle 3+ views left 3 weight bearing views of the left ankle and foot were obtained and the following is my interpretation of the findings present of the X-rays: The left ankle shows the ankle mortise and syndesmosis to be anatomically aligned. No signs of ankle arthrosis. No other ankle abnormalities are seen. 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 Mild arthrosis of the calcaneocuboid joint is also seen. There is a screw with what appears to be a partially healed fracture of the second metatarsal. The screw runs from the metatarsal head to the base of the second metatarsal and is intramedullary. 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 Mild arthrosis of the first tarsometatarsal joint is also noted. An increase in longitudinal arch height is noted. Mild calcification at the Achilles tendon insertion site and on the plantar aspect of the calcaneal posterior tuberosity. Wang Thomas MD [1] Allergies Allergen Reactions Doxycycline Other reaction(s): Hives [2] Current Outpatient Medications Medication Sig Dispense Refill albuterol 108 (90 Base) MCG/ACT inhaler amoxicillin (Amoxil) 500 MG capsule Take 1 capsule (500 mg) by mouth 2 times daily for 7 days. 14 capsule 0 benzonatate (Tessalon) 200 MG capsule Take 1 capsule (200 mg) by mouth 3 times daily as needed for cough. Do not crush or chew. 42 capsule 0 CRANBERRY PO Take by mouth. desonide (DesOwen) 0.05 % cream Apply topically 2 times daily as needed for irritation. 15 g 2 flurbiprofen (Ansaid) 100 MG tablet Take 1 tablet by mouth daily. gabapentin (Neurontin) 400 MG capsule Take 400 mg by mouth Nightly. ipratropium (Atrovent) 0.06 % nasal spray Administer 2 sprays into each nostril 3 times daily for 7 days. 15 mL 0 latanoprost (Xalatan) 0.005 % ophthalmic solution place 1 drop into both eyes once daily leflunomide (Arava) 20 MG tablet methylPREDNISolone (Medrol Dospak) 4 MG tablets Take as directed on package. 21 tablet 0 montelukast (Singulair) 10 MG tablet Multiple Vitamin tablet Take 1 tablet by mouth daily. Spiriva Respimat 1.25 MCG/ACT inhaler Symbicort 160-4.5 MCG/ACT inhaler No current facility-administered medications for this visit. [3] Patient Active Problem List Diagnosis Personal history of colonic polyps BPH (benign prostatic hyperplasia) History of gastric ulcer Allergic asthma Allergic rhinitis Rheumatoid arthritis involving wrist with positive rheumatoid factor (CMS/HCC) (HCC) Lumbar spine scoliosis DDD (degenerative disc disease), cervical Osteoarthritis of both knees History of renal stone Osteopenia History of systemic steroid therapy Degenerative arthritis of thoracic spine History of prostate cancer Scaphoid fracture Hypercholesterolemia with hypertriglyceridemia Wrist fracture, closed, right, with routine healing, subsequent encounter Reflux esophagitis Viral URI [4] Past Medical History: Diagnosis Date Allergic rhinitis past immunotherpy per Dr. Cao Asthma Berenice Simpson Colon cancer screening 02/2020 Valorie Canales- due 2022 DDD (degenerative disc disease), cervical 2012 Degenerative arthritis of thoracic spine Foot fracture, right 12/2016 History of gastric ulcer 2009 EGD History of left heart catheterization 07/[address] Talavera History of prostate cancer 2012 Dr. Katlin Ng Urology prostatectomy- PSA 09/04 History of renal stone 1992 rec 10/05 cysto Hypercholesterolemia with hypertriglyceridemia 03/2019 attempting diet control Lumbar spine scoliosis Osteoarthritis of both knees 2004 bilat TKR- 2014, per Dr. Amado Osteomyelitis ([facility]) 10/2019 s/p Rt 2nd toe per Dr. Rubi Osteopenia Personal history of colonic polyps 02/2020 Dr. 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 Eugene- due 2022 HERNIA REPAIR Right 2014 [facility] INCISIONAL HERNIA REPAIR Right 2015 [facility]- mesh replacement LITHOTRIPSY 1992 PROSTATECTOMY 2012 robotic REVERSE TOTAL SHOULDER ARTHROPLASTY 08/2023 Manju REVERSE TOTAL SHOULDER ARTHROPLASTY Right 10/2023 Dr. Durand- repeated due to disloc REVISION TOTAL KNEE ARTHROPLASTY (HISTORICAL) Left 07/2016 Dr. Durand RHINOPLASTY 2004 TOE AMPUTATION Right 11/2019 rt 2nd toe per Dr. Rubi TOE AMPUTATION Right 2019 3rd toe amputation TONSILLECTOMY (HISTORICAL) TOTAL KNEE ARTHROPLASTY Right 2014 [facility] TOTAL KNEE ARTHROPLASTY Left 2004 [facility] UPPER GASTROINTESTINAL ENDOSCOPY 07/2016 sylvia [6] Family History Problem Relation Name Age of Onset Heart failure Mother Amita at [facility], age 94, copd COPD Father Ariel age 75, nonsmoker Hypertension Sister Claudia alive age 72 No Known Problems Maternal Grandmother late 70s Bone cancer Maternal Grandfather age 60s No Known Problems Paternal Grandmother in 70s , No Known Problems Paternal Grandfather GA? documented in this encounter [facility] 04-27-2025 Telephone encounter Note S: Patient spoke with [facility] nurse regarding sinus drainage, productive cough, headache, sore throat. B: Onset of symptoms/concern began over the weekend. A: Patient has milky colored sinus drainage, cough productive of a milky mucus, headache, and sore throat. Hx of asthma with some increase in shortness of breath. No wheezing or ear pain. has similar symptoms. Has not tested for COVID. No fever. Has been using Tylenol. NTP appt with Lynda Bey CNP on 08/20/2025. R: Appt made for today with Dr. Thomas for 2:40p. Insurance verified with patient as [employer]. Patient will wear a mask to appt; bring photo ID, insurance card, and arrive 15 minutes early. Advised to continue Tylenol, try hot tea for symptom relief. Patient understands care advice. No further needs at this time. Reason for Disposition MILD difficulty breathing (e.g., minimal/no SOB at rest, SOB with walking, pulse <100) and still present when not coughing Protocols used: [id number] [facility] 04-27-2025 Miscellaneous Notes S: Patient spoke with [facility] nurse regarding sinus drainage, productive cough, headache, sore throat. B: Onset of symptoms/concern began over the weekend. A: Patient has milky colored sinus drainage, cough productive of a milky mucus, headache, and sore throat. Hx of asthma with some increase in shortness of breath. No wheezing or ear pain. has similar symptoms. Has not tested for COVID. No fever. Has been using Tylenol. NTP appt with Lynda Bey CNP on 08/20/2025. R: Appt made for today with Dr. Thomas for 2:40p. Insurance verified with patient as [employer]. Patient will wear a mask to appt; bring photo ID, insurance card, and arrive 15 minutes early. Advised to continue Tylenol, try hot tea for symptom relief. Patient understands care advice. No further needs at this time. Reason for Disposition MILD difficulty breathing (e.g., minimal/no SOB at rest, SOB with walking, pulse <100) and still present when not coughing Protocols used: [id number] documented in this encounter [facility] [address] 04-24-2025 History of Present illness Narrative Images from the original note were not included. Jonah Brink DO [facility] - Orthopedic Spine Surgeon [address] [facility] [address] [address] [place] [address] Phone: [phone] ([phone]) FAX: [phone] SPINE SURGERY OUTPATIENT CONSULT SERVICE DATE: 04/24/2025 LAST OFFICE VISIT: Visit date not found DATE OF : 1950 REFERRING PROVIDER: No referring provider defined for this encounter. CHIEF COMPLAINT: Left leg pain HISTORY OF PRESENT ILLNESS Shivani Bonilla is a 75 year old male presenting with spouse. The patient has a past medical history of asthma, left foot pain, prostate cancer and RA. He presented to the office on 02/18/2025. Pain began several months ago. Had been getting progressively worse. 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 Stated that he did have some gluteal pain, but left ankle was the most painful. Stated that he had tried physical therapy for this with no relief in symptoms. Stated that was affecting his activities of daily living. He had significant lumbar radiculopathy. He had been dealing with this for quite some time. He had his ankle evaluated by several foot and ankle specialist. Recommend an EMG of the patient's lumbar spine to confirm that this was coming from his lumbar spine. He will follow-up me once the EMG is completed. At his last visit on 03/25/2025 he stated he continued to have severe left leg pain. Stated that was also numb. Pain was in the L5 distribution but only distal to the left knee. EMG described a possible polyneuropathy. He had significant left leg pain. Recommend a selective nerve root block of L5 with interventional radiology. Consults placed. He will follow-up me 2 weeks after the injection, prompting his visit today. Today patient went for pain injection, he states it gave him full resolution for a full 48 hours then the pain gradually came back. Today he notes continued left ankle pain, baseline neuropathy of bilateral feet. He present today in wheelchair. Denies new or worsened weakness, falls, loss of bowel or bladder. Pain is located in the L5 dermatome on the left. He presents for imaging review, evaluation and plan of care. Pain began Chronic SYMPTOMS: Left ankle pain PREVIOUS CONSERVATIVE TREATMENTS: Gabapentin selective nerve root block of L5 - 04/06/2025 PREVIOUS SURGERY: None Smoker: denies Diabetic: denies Anticoagulants / Antiplatelets: denies Occupation: [employer] PAST MEDICAL HISTORY Diagnosis Date Asthma (HCC) Left foot pain Prostate cancer (HCC) Rheumatoid arthritis Right foot pain PAST SURGICAL HISTORY Procedure Laterality Date ARTHRP KNE CONDYLE&PLATU MEDIAL&LAT COMPARTMENTS Left 08/13/2004 ARTHRP KNE CONDYLE&PLATU MEDIAL&LAT COMPARTMENTS Right 08/13/2014 CARPAL TUNNEL 82,83 x2 each wrist COLONOSCOPY 08/13/2009 FOOT SURGERY HX Right 07/2020 FOOT SURGERY HX Right 11/29/2020 FOOT SURGERY HX Left 08/18/2024 INGUINAL HERNIA REPAIR HX Right 09/13/2014 LX REPAIR RECURRENT VENTRAL HERNIA 11/08/2015 Laparoscopic repair of recurrent ventral hernia PAST SURGICAL HISTORY OF 01/11/1993 kidney stone removal PAST SURGICAL HISTORY OF 08/13/1997 cardiac catherization PAST SURGICAL HISTORY OF Left 08/13/2005 knee revision PAST SURGICAL HISTORY OF 11/24/2022 Kidney stone removal REMOVAL OF PROSTATE 02/10/2013 SHOULDER SURGERY HX Right 08/21/2023 TONSILLECTOMY HX 08/13/1977 FAMILY HISTORY Problem Relation Age of Onset other (negative [Other]) Unknown SOCIAL HISTORY[1] ALLERGIES Allergen Reactions Gluten Shortness of Breath Peanuts Shortness of Breath Tetracycline Hives Yeast, Dried Shortness of Breath MEDICATIONS: gabapentin (NEURONTIN) 300 mg capsule Take 1 capsule by mouth two times a day for 30 days. ACTEMRA ACTPEN 162 mg/0.9 mL 1 injection Subcutaneous weekly for 28 days gabapentin (NEURONTIN) 300 mg capsule Take 2 capsules by mouth daily at bedtime for 90 days. DULoxetine (CYMBALTA) 30 mg capsule Take 30 mg by mouth once daily. hydrOXYchloroQUINE (PLAQUENIL) 200 mg tablet linezolid (ZYVOX) 600 mg tablet budesonide/formoterol fumarate (SYMBICORT INHALATION) Inhale as instructed. tiotropium bromide (SPIRIVA RESPIMAT INHALATION) Inhale as instructed. leflunomide (ARAVA) 20 mg tablet Take 20 mg by mouth once daily. montelukast (SINGULAIR) 10 mg tablet once daily. folic acid 1 mg tablet once daily. Multivitamin capsule Take 1 capsule by mouth once daily. mometasone (NASONEX) 50 mcg/actuation nasal spray Use 2 Sprays in the nose once daily. REVIEW OF SYSTEMS Review of Systems Constitutional: Negative for chills, fatigue and fever. HENT: Negative for ear pain, hearing loss and tinnitus. Eyes: Negative for photophobia, pain and visual disturbance. Respiratory: Negative for shortness of breath. Cardiovascular: Negative for chest pain. Gastrointestinal: Negative for constipation, diarrhea, nausea and vomiting. Endocrine: Negative for polydipsia, polyphagia and polyuria. Genitourinary: Negative for difficulty urinating, frequency and urgency. Musculoskeletal: Positive for gait problem. Skin: Negative for color change. Neurological: Positive for weakness and numbness. Negative for dizziness and light-headedness. Psychiatric/Behavioral: Negative for agitation, hallucinations and suicidal ideas. OBJECTIVE: There were no vitals taken for this visit. PHYSICAL EXAM GENERAL APPEARANCE: Well nourished, well developed, and no apparent distress. NEURO PSYCH: Patient oriented to person, place, and time. Mood pleasant. Benign affect. CARDIOVASCULAR: Palpable pulses. No edema noted. No varicosities. SKIN: Head, neck, trunk, and extremities dry, intact and without lesions. LYMPHATICS: No palpable nodes in axillae areas. Groin exam deferred MUSCULOSKELETAL PALPATION: SPINOUS PROCESS: No pain. PARASPINALS: No pain. MUSCLE TONE and BULK: Symmetrical in the lower extremities. MOTOR: Left Right Lower Extremity Hip Flexors 5/5 5/5 Quadriceps 5/5 5/5 Dorsiflexion 0/5 5/5 EHL/EDC 5/5 5/5 Plantar Flexion 5/5 5/5 SENSORY: Sensation intact to light touch L1-S1 GAIT: In a wheelchair due to pain LONG TRACT SIGNS: No clonus. REFLEXES: symmetric non-brisk Sore on the right second toe PRE-OP DISCUSSION OF PLAN, INFORMED CONSENT, & CHECKLIST Reviewed With patient PRE-OP PLAN: Preoperative Diagnosis: Lumbar radiculopathy Planned procedure: L4-5 laminectomy and fusion Proposed anesthesia: General Patient Status category at the facility: Inpatient Indication for surgery: failure of conservative care Estimated Surgery Time: 3-1/2 hours Implant Type: Globus Microscope: No Positioning: prone open frame luis table with facefoam Intraoperative imaging: fluoroscopy and Navigation Neuromonitoring: Intranerve Yes Specials/Additional Equipment: Estimated Hospital Nights: 2 PCP: Ganga Acosta, DO Needs clearance letter from PCP? Yes Needs suitability letter from PCP? Yes INFORMED CONSENT Risks of surgery were discussed in detail with the patient. Risks of surgery discussed include but are not limited to, the risk of DVT, PE, and/or . Cardiovascular and pulmonary risk, as related to the patient's preoperative clearance and assessment by the perioperative team as well as anesthesia. The risk of neurological injury was discussed in great detail, including discussion of a spectrum of partial dysfunction through complete dysfunction. The risk of nerve root injury was discussed that may result in weakness, paralysis, sensory loss, and/or intractable pain and supplied nerve root that might either be transient and/or permanent in nature. The risk of compressive epidural hematoma and/or compressive epidural abscess was discussed with the patient that may or may not result in transient and/or permanent bowel and bladder dysfunction and/or transient and/or permanent lower extremity dysfunction such as weakness, paralysis, sensory loss, and/or intractable pain. The risk of durotomy, and potential complications of spinal headache, and/or persistent leakage, resulting in the need for further surgery, and/or drain placement was discussed. The risk of complications related to fusion were discussed in detail. The risk of pseudoarthrosis was discussed. The risk of hardware failure including hardware pullout, hailey breakage, screw breakage was discussed. The risk of screw loosening was discussed. The risk of need for further surgery for hardware failure, pseudoarthrosis was discussed. The risk of screw misplacement resulting in radiculopathy or neurological injury was discussed. The risk of need for further surgery to alter trajectory of hardware was discussed. The risk of needing to extend the fusion cephalad and/or caudad and the reasoning behind this was discussed. Adjacent segment breakdown that may or may not be symptomatic was discussed. The risk of instability status post surgery was discussed, the risk of superficial and deep infection was discussed. No guarantees were offered nor implied regarding final outcome status post surgery or presence or absence of complication perioperatively. The risk of no improvement in symptoms despite technically adequate decompression of the compressed structures was discussed in extreme detail. The risk of need for further surgery for any reason was discussed. After a thorough discussion, the patient had many appropriate questions, all questions were answered to the patient's stated satisfaction. The patient voiced excellent understanding of both the reasoning for offering surgery, the potential complications regarding this particular surgery, and has elected to proceed. PRE-OP CHECKLIST Comorbidities: PAST MEDICAL HISTORY Diagnosis Date Asthma (HCC) Left foot pain Prostate cancer (HCC) Rheumatoid arthritis Right foot pain PAST SURGICAL HISTORY Procedure Laterality Date ARTHRP KNE CONDYLE&PLATU MEDIAL&LAT COMPARTMENTS Left 08/13/2004 ARTHRP KNE CONDYLE&PLATU MEDIAL&LAT COMPARTMENTS Right 08/13/2014 CARPAL TUNNEL 82,83 x2 each wrist COLONOSCOPY 08/13/2009 FOOT SURGERY HX Right 07/2020 FOOT SURGERY HX Right 11/29/2020 FOOT SURGERY HX Left 08/18/2024 INGUINAL HERNIA REPAIR HX Right 09/13/2014 LX REPAIR RECURRENT VENTRAL HERNIA 11/08/2015 Laparoscopic repair of recurrent ventral hernia PAST SURGICAL HISTORY OF 01/11/1993 kidney stone removal PAST SURGICAL HISTORY OF 08/13/1997 cardiac catherization PAST SURGICAL HISTORY OF Left 08/13/2005 knee revision PAST SURGICAL HISTORY OF 11/24/2022 Kidney stone removal REMOVAL OF PROSTATE 02/10/2013 SHOULDER SURGERY HX Right 08/21/2023 TONSILLECTOMY HX 08/13/1977 Operative Permit: Electronic signatures Signed by surgeon: Yes Signed by patient: Yes ASSESSMENT/PLAN Shivani Bonilla is a 75-year-old male with lumbar radiculopathy - I had a very long discussion today with the patient his . He has significant lumbar radiculopathy. Selective nerve block of the L5 nerve root has confirmed his pain is coming from his lumbar spine. We discussed operative nonoperative treatment options as well as alternatives to operative intervention. He wished to proceed with operative intervention. Plan is for an L4-5 laminectomy and fusion. All risk and benefits were discussed at length. All questions were answered. Discussed with the patient that he will need clearance from podiatry prior to surgery. The following portions of the patient's history were reviewed, confirmed, and updated as necessary: allergies, current medications, past family history, past medical history, past social history, past surgical history, problem list, HPI, and ROS obtained by others. Some elements may be copied from a previous office note and have been reviewed/updated where appropriate. All portions reflect current medical decision making from today. The clinical and radiographic findings as well as the risks, benefits and alternatives of treatment have been reviewed in detail with the patient. Advised to call the office if symptoms worsen or new symptoms develop. Patient expressed understanding and is in agreement with plan. Jonah Brink DO This note was partially generated using [employer] voice recognition system, and there may be some incorrect words, spellings, and punctuation that were not noted in checking the note before saving. [1] Social History Tobacco Use Smoking status: Never Passive exposure: Never Smokeless tobacco: Never Vaping Use Vaping status: Never Used Substance Use Topics Alcohol use: No Drug use: No documented in this encounter [facility] 04-24-2025 Note HNO ID: [id number] Author: JONAH BRINK DO Service: ? Author Type: Physician Type: Progress Notes Filed: 04/24/2025 11:03 Note Text: Jonah Brink DO [facility] - Orthopedic Spine Surgeon [address] [place] [id number] [place], [place] [id number] Phone: [phone] FAX: [phone] SPINE SURGERY OUTPATIENT CONSULT SERVICE DATE: 04/24/2025 LAST OFFICE VISIT: Visit date not found DATE OF : 1950 REFERRING PROVIDER: No referring provider defined for this encounter. CHIEF COMPLAINT: Left leg pain HISTORY OF PRESENT ILLNESS Shivani Bonilla is a 75 year old male presenting with spouse. The patient has a past medical history of asthma, left foot pain, prostate cancer and RA. He presented to the office on 02/18/2025. Pain began several months ago. Had been getting progressively worse. 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 Stated that he did have some gluteal pain, but left ankle was the most painful. Stated that he had tried physical therapy for this with no relief in symptoms. Stated that was affecting his activities of daily living. He had significant lumbar radiculopathy. He had been dealing with this for quite some time. He had his ankle evaluated by several foot and ankle specialist. Recommend an EMG of the patient's lumbar spine to confirm that this was coming from his lumbar spine. He will follow-up me once the EMG is completed. At his last visit on 03/25/2025 he stated he continued to have severe left leg pain. Stated that was also numb. Pain was in the L5 distribution but only distal to the left knee. EMG described a possible polyneuropathy. He had significant left leg pain. Recommend a selective nerve root block of L5 with interventional radiology. Consults placed. He will follow-up me 2 weeks after the injection, prompting his visit today. Today patient went for pain injection, he states it gave him full resolution for a full 48 hours then the pain gradually came back. Today he notes continued left ankle pain, baseline neuropathy of bilateral feet. He present today in wheelchair. Denies new or worsened weakness, falls, loss of bowel or bladder. Pain is located in the L5 dermatome on the left. He presents for imaging review, evaluation and plan of care. Pain began Chronic SYMPTOMS: Left ankle pain PREVIOUS CONSERVATIVE TREATMENTS: Gabapentin selective nerve root block of L5 - 04/06/2025 PREVIOUS SURGERY: None Smoker: denies Diabetic: denies Anticoagulants / Antiplatelets: denies Occupation: [employer] PAST MEDICAL HISTORY Diagnosis Date Asthma (HCC) Left foot pain Prostate cancer (HCC) Rheumatoid arthritis Right foot pain PAST SURGICAL HISTORY Procedure Laterality Date ARTHRP KNE CONDYLEANDPLATU MEDIALANDLAT COMPARTMENTS Left 08/13/2004 ARTHRP KNE CONDYLEANDPLATU MEDIALANDLAT COMPARTMENTS Right 08/13/2014 CARPAL TUNNEL 82,83 x2 each wrist COLONOSCOPY 08/13/2009 FOOT SURGERY HX Right 07/2020 FOOT SURGERY HX Right 11/29/2020 FOOT SURGERY HX Left 08/18/2024 INGUINAL HERNIA REPAIR HX Right 09/13/2014 LX REPAIR RECURRENT VENTRAL HERNIA 11/08/2015 Laparoscopic repair of recurrent ventral hernia PAST SURGICAL HISTORY OF 01/11/1993 kidney stone removal PAST SURGICAL HISTORY OF 08/13/1997 cardiac catherization PAST SURGICAL HISTORY OF Left 08/13/2005 knee revision PAST SURGICAL HISTORY OF 11/24/2022 Kidney stone removal REMOVAL OF PROSTATE 02/10/2013 SHOULDER SURGERY HX Right 08/21/2023 TONSILLECTOMY HX 08/13/1977 FAMILY HISTORY Problem Relation Age of Onset other (negative [Other]) Unknown SOCIAL HISTORY[1] ALLERGIES Allergen Reactions Gluten Shortness of Breath Peanuts Shortness of Breath Tetracycline Hives Yeast, Dried Shortness of Breath MEDICATIONS: gabapentin (NEURONTIN) 300 mg capsule Take 1 capsule by mouth two times a day for 30 days. ACTEMRA ACTPEN 162 mg/0.9 mL 1 injection Subcutaneous weekly for 28 days gabapentin (NEURONTIN) 300 mg capsule Take 2 capsules by mouth daily at bedtime for 90 days. DULoxetine (CYMBALTA) 30 mg capsule Take 30 mg by mouth once daily. hydrOXYchloroQUINE (PLAQUENIL) 200 mg tablet linezolid (ZYVOX) 600 mg tablet budesonide/formoterol fumarate (SYMBICORT INHALATION) Inhale as instructed. tiotropium bromide (SPIRIVA RESPIMAT INHALATION) Inhale as instructed. leflunomide (ARAVA) 20 mg tablet Take 20 mg by mouth once daily. montelukast (SINGULAIR) 10 mg tablet once daily. folic acid 1 mg tablet once daily. Multivitamin capsule Take 1 capsule by mouth once daily. mometasone (NASONEX) 50 mcg/actuation nasal spray Use 2 Sprays in the nose once daily. REVIEW OF SYSTEMS Review of Systems Constitutional: Negative for chills, fatigue and fever. HENT: Negative for ear pain, hearing loss and tinnitus. Eyes: Negative for photophobia, pain and visual disturbanc (more content not included)... [facility] 04-09-2025 Note HNO ID: [id number] Author: MCKINLEY GUZMAN DPM Service: ? Author Type: Physician Type: Progress Notes Filed: 04/09/2025 10:27 Note Text: HPI: This 75 year old male presents for follow up of right 2nd toe wound. States that the wound is taking a while to heal but he feels it is still improving. Has been apply mesalt dressing daily. Admits to some clear drainage. Denies any redness, malodor. Has been ambulating in an AFO. Denies any new wounds. Admits he had an injection in his back and his pain was completely relieved for 48 hours. Denies any current nausea, vomiting, fever, chills, shortness of breath, chest pain or calf pain. Denies any other pedal complaints PAST MEDICAL HISTORY Diagnosis Date Asthma (HCC) Left foot pain Prostate cancer (HCC) Rheumatoid arthritis Right foot pain Current Outpatient Medications Medication Sig gabapentin (NEURONTIN) 300 mg capsule Take 1 capsule by mouth two times a day for 30 days. ACTEMRA ACTPEN 162 mg/0.9 mL 1 injection Subcutaneous weekly for 28 days gabapentin (NEURONTIN) 300 mg capsule Take 2 capsules by mouth daily at bedtime for 90 days. DULoxetine (CYMBALTA) 30 mg capsule Take 30 mg by mouth once daily. hydrOXYchloroQUINE (PLAQUENIL) 200 mg tablet linezolid (ZYVOX) 600 mg tablet budesonide/formoterol fumarate (SYMBICORT INHALATION) Inhale as instructed. tiotropium bromide (SPIRIVA RESPIMAT INHALATION) Inhale as instructed. leflunomide (ARAVA) 20 mg tablet Take 20 mg by mouth once daily. montelukast (SINGULAIR) 10 mg tablet once daily. folic acid 1 mg tablet once daily. Multivitamin capsule Take 1 capsule by mouth once daily. mometasone (NASONEX) 50 mcg/actuation nasal spray Use 2 Sprays in the nose once daily. No current facility-administered medications for this visit. ALLERGIES Allergen Reactions Gluten Shortness of Breath Peanuts Shortness of Breath Tetracycline Hives Yeast, Dried Shortness of Breath Objective: Problem focused examination to the right lower extremity: Pedal pulses are palpable. Capillary refill time is less than three seconds to all digits. Sensations are intact to light touch. Wound location: R foot second dorsal PIPJ size: 0.7 cm x 0.5 cm x 0.1 cm = 0.35 total sq cm Type: Pressure/friction Depth: Ulceration extends Full thickness down to subcutaneous Base: Granular and Fibrotic SOI: No clinical SOI Probe: Ulcer does not probe to bone. Drainage: Small amount of serous drainage. General foot morphology: decreased medial longitudinal arch with plantar prominence at midfoot. 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 +4/5 muscle strength Dorsiflexion, Plantarflexion, Inversion, Eversion, no DF strength to LLE, limited PF strength. No palpable dell noted to achilles tendon. Non palpable AT tendon concerning for chronic rupture. Foot drop noted of LLE. ROM of the 1st MTPJ is decreased without pain or crepitus. ROM of the MTJ/STJ is decreased without pain or crepitus. Ankle joint ROM is decreased with pain on palpation noted to the left > right. No erythema or edema about the plantar midfoot right. No pain on palpation of left 2nd metatarsal bone. Results MRI ANKLE WO IVCON LEFT (Acc#[id number]) (Order [id number]) Impression IMPRESSION: 1. Hindfoot/midfoot degenerative changes. 2. Low-grade Achilles tendinosis. 3. Plantar fasciitis with low-grade interstitial tear and calcaneal spur. 4. Short segment thickening/tendinosis anterior tibialis tendon. 5. Diffuse soft tissue edema about the ankle and dorsal foot. URIC ACID Order: [id number] Status: Final result Dx: Acute left ankle pain Test Result Released: Yes (not seen) 0 Result Notes Component Ref Range AND Units 1 mo ago Uric Acid 4.0 - 8.1 mg/dL 4.3 Resulting Agency [facility] ntains abnormal data COMPLETE BLOOD COUNT Order: [id number] Status: Final result Dx: Acute left ankle pain Test Result Released: Yes (seen) 0 Result Notes Component Ref Range AND Units 1 mo ago WBC 3.70 - 11.00 k/uL 5.60 RBC 4.20 - 6.00 m/uL 4.66 Hemoglobin 13.0 - 17.0 g/dL 15.1 Hematocrit 39.0 - 51.0 % 44.8 MCV 80.0 - 100.0 fL 96.1 MCH 26.0 - 34.0 pg 32.4 MCHC 30.5 - 36.0 g/dL 33.7 RDW-CV 11.5 - 15.0 % 13.3 Platelet Count 150 - 400 k/uL 222 MPV 9.0 - 12.7 fL 8.9 Low Absolute nRBC <0.01 k/uL <0.01 Resulting Agency [facility] . CT LEFT ANKLE 01/21/25: IMPRESSION: 1. No acute bony abnormality. 2. 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 3. Mild talonavicular joint arthrosis. 4. Mild Achilles tendinosis. Assessment: Chronic L ankle pain, healing right second digit ulcer. Plan: The patient was educated on clinical examination findings, postoperative prognosis and protocol. All questions were answered to patient's apparent satisfaction. - Patient to continue weightbearing as tolerated in - Discussed given relief with spinal injection h (more content not included)... [facility] 04-09-2025 History of Present illness Narrative Images from the original note were not included. HPI: This 75 year old male presents for follow up of right 2nd toe wound. States that the wound is taking a while to heal but he feels it is still improving. Has been apply mesalt dressing daily. Admits to some clear drainage. Denies any redness, malodor. Has been ambulating in an AFO. Denies any new wounds. Admits he had an injection in his back and his pain was completely relieved for 48 hours. Denies any current nausea, vomiting, fever, chills, shortness of breath, chest pain or calf pain. Denies any other pedal complaints PAST MEDICAL HISTORY Diagnosis Date Asthma (HCC) Left foot pain Prostate cancer (HCC) Rheumatoid arthritis Right foot pain Current Outpatient Medications Medication Sig gabapentin (NEURONTIN) 300 mg capsule Take 1 capsule by mouth two times a day for 30 days. ACTEMRA ACTPEN 162 mg/0.9 mL 1 injection Subcutaneous weekly for 28 days gabapentin (NEURONTIN) 300 mg capsule Take 2 capsules by mouth daily at bedtime for 90 days. DULoxetine (CYMBALTA) 30 mg capsule Take 30 mg by mouth once daily. hydrOXYchloroQUINE (PLAQUENIL) 200 mg tablet linezolid (ZYVOX) 600 mg tablet budesonide/formoterol fumarate (SYMBICORT INHALATION) Inhale as instructed. tiotropium bromide (SPIRIVA RESPIMAT INHALATION) Inhale as instructed. leflunomide (ARAVA) 20 mg tablet Take 20 mg by mouth once daily. montelukast (SINGULAIR) 10 mg tablet once daily. folic acid 1 mg tablet once daily. Multivitamin capsule Take 1 capsule by mouth once daily. mometasone (NASONEX) 50 mcg/actuation nasal spray Use 2 Sprays in the nose once daily. No current facility-administered medications for this visit. ALLERGIES Allergen Reactions Gluten Shortness of Breath Peanuts Shortness of Breath Tetracycline Hives Yeast, Dried Shortness of Breath Objective: Problem focused examination to the right lower extremity: Pedal pulses are palpable. Capillary refill time is less than three seconds to all digits. Sensations are intact to light touch. Wound location: R foot second dorsal PIPJ size: 0.7 cm x 0.5 cm x 0.1 cm = 0.35 total sq cm Type: Pressure/friction Depth: Ulceration extends Full thickness down to subcutaneous Base: Granular and Fibrotic SOI: No clinical SOI Probe: Ulcer does not probe to bone. Drainage: Small amount of serous drainage. General foot morphology: decreased medial longitudinal arch with plantar prominence at midfoot. 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 +4/5 muscle strength Dorsiflexion, Plantarflexion, Inversion, Eversion, no DF strength to LLE, limited PF strength. No palpable dell noted to achilles tendon. Non palpable AT tendon concerning for chronic rupture. Foot drop noted of LLE. ROM of the 1st MTPJ is decreased without pain or crepitus. ROM of the MTJ/STJ is decreased without pain or crepitus. Ankle joint ROM is decreased with pain on palpation noted to the left > right. No erythema or edema about the plantar midfoot right. No pain on palpation of left 2nd metatarsal bone. Results MRI ANKLE WO IVCON LEFT (Acc#[id number]) (Order [id number]) Impression IMPRESSION: 1. Hindfoot/midfoot degenerative changes. 2. Low-grade Achilles tendinosis. 3. Plantar fasciitis with low-grade interstitial tear and calcaneal spur. 4. Short segment thickening/tendinosis anterior tibialis tendon. 5. Diffuse soft tissue edema about the ankle and dorsal foot. URIC ACID Order: [id number] Status: Final result Dx: Acute left ankle pain Test Result Released: Yes (not seen) 0 Result Notes Component Ref Range & Units 1 mo ago Uric Acid 4.0 - 8.1 mg/dL 4.3 Resulting Agency [facility] ntains abnormal data COMPLETE BLOOD COUNT Order: [id number] Status: Final result Dx: Acute left ankle pain Test Result Released: Yes (seen) 0 Result Notes Component Ref Range & Units 1 mo ago WBC 3.70 - 11.00 k/uL 5.60 RBC 4.20 - 6.00 m/uL 4.66 Hemoglobin 13.0 - 17.0 g/dL 15.1 Hematocrit 39.0 - 51.0 % 44.8 MCV 80.0 - 100.0 fL 96.1 MCH 26.0 - 34.0 pg 32.4 MCHC 30.5 - 36.0 g/dL 33.7 RDW-CV 11.5 - 15.0 % 13.3 Platelet Count 150 - 400 k/uL 222 MPV 9.0 - 12.7 fL 8.9 Low Absolute nRBC <0.01 k/uL <0.01 Resulting Agency [facility] . CT LEFT ANKLE 01/21/25: IMPRESSION: 1. No acute bony abnormality. 2. 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 3. Mild talonavicular joint arthrosis. 4. Mild Achilles tendinosis. Assessment: Chronic L ankle pain, healing right second digit ulcer. Plan: The patient was educated on clinical examination findings, postoperative prognosis and protocol. All questions were answered to patient's apparent satisfaction. - Patient to continue weightbearing as tolerated in - Discussed given relief with spinal injection his pain is secondary to his back and not primarily from the foot. - Continue Mesalt and DSD to right second digit. - Instructed patient to continue to ambulate as tolerated in AFO - RTC in 4 -6 weeks Larry Cid DPM PGY2 I personally saw and evaluated the patient. I reviewed the resident's note. I agree with the resident's assessment and plan unless otherwise noted. Mckinley Guzman DPM, FACFAS documented in this encounter [facility] 03-25-2025 History of Present illness Narrative Images from the original note were not included. Jonah Brink, [facility] - Orthopedic Spine Surgeon [address] [facility] [id number] [address] [place] [address] Phone: [phone] FAX: [phone] SPINE SURGERY OUTPATIENT CONSULT SERVICE DATE: 03/25/2025 LAST OFFICE VISIT: 02/18/2025 DATE OF : 1950 REFERRING PROVIDER: No referring provider defined for this encounter. CHIEF COMPLAINT: Left leg pain HISTORY OF PRESENT ILLNESS Shivani Bonilla is a 75 year old male presenting with spouse. He presented to the office on 02/18/2025. Pain began several months ago. Had been getting progressively worse. 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 Stated that he did have some gluteal pain, but left ankle was the most painful. Stated that he had tried physical therapy for this with no relief in symptoms. Stated that was affecting his activities of daily living. He had significant lumbar radiculopathy. He had been dealing with this for quite some time. He had his ankle evaluated by several foot and ankle specialist. Recommend an EMG of the patient's lumbar spine to confirm that this was coming from his lumbar spine. He will follow-up me once the EMG is completed, prompting his visit today. Today states he continues to have severe left leg pain. States that is also numb. Pain is in the L5 distribution but only distal to the left knee. 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 He presents for imaging review, evaluation and plan of care. PREVIOUS CONSERVATIVE TREATMENTS: Gabapentin PREVIOUS SURGERY: None Smoker: denies Diabetic: denies Anticoagulants / Antiplatelets: denies Occupation: [employer] PAST MEDICAL HISTORY Diagnosis Date Asthma (HCC) Left foot pain Prostate cancer (HCC) Rheumatoid arthritis Right foot pain PAST SURGICAL HISTORY Procedure Laterality Date ARTHRP KNE CONDYLE&PLATU MEDIAL&LAT COMPARTMENTS Left 08/13/2004 ARTHRP KNE CONDYLE&PLATU MEDIAL&LAT COMPARTMENTS Right 08/13/2014 CARPAL TUNNEL 82,83 x2 each wrist COLONOSCOPY 08/13/2009 FOOT SURGERY HX Right 07/2020 FOOT SURGERY HX Right 11/29/2020 FOOT SURGERY HX Left 08/18/2024 INGUINAL HERNIA REPAIR HX Right 09/13/2014 LX REPAIR RECURRENT VENTRAL HERNIA 11/08/2015 Laparoscopic repair of recurrent ventral hernia PAST SURGICAL HISTORY OF 01/11/1993 kidney stone removal PAST SURGICAL HISTORY OF 08/13/1997 cardiac catherization PAST SURGICAL HISTORY OF Left 08/13/2005 knee revision PAST SURGICAL HISTORY OF 11/24/2022 Kidney stone removal REMOVAL OF PROSTATE 02/10/2013 SHOULDER SURGERY HX Right 08/21/2023 TONSILLECTOMY HX 08/13/1977 FAMILY HISTORY Problem Relation Age of Onset other (negative [Other]) Unknown Social History Tobacco Use Smoking status: Never Passive exposure: Never Smokeless tobacco: Never Vaping Use Vaping status: Never Used Substance Use Topics Alcohol use: No Drug use: No ALLERGIES Allergen Reactions Gluten Shortness of Breath Peanuts Shortness of Breath Yeast, Dried Shortness of Breath MEDICATIONS: gabapentin (NEURONTIN) 300 mg capsule Take 1 capsule by mouth two times a day for 30 days. ACTEMRA ACTPEN 162 mg/0.9 mL 1 injection Subcutaneous weekly for 28 days gabapentin (NEURONTIN) 300 mg capsule Take 2 capsules by mouth daily at bedtime for 90 days. DULoxetine (CYMBALTA) 30 mg capsule Take 30 mg by mouth once daily. hydrOXYchloroQUINE (PLAQUENIL) 200 mg tablet linezolid (ZYVOX) 600 mg tablet budesonide/formoterol fumarate (SYMBICORT INHALATION) Inhale as instructed. tiotropium bromide (SPIRIVA RESPIMAT INHALATION) Inhale as instructed. leflunomide (ARAVA) 20 mg tablet Take 20 mg by mouth once daily. montelukast (SINGULAIR) 10 mg tablet once daily. folic acid 1 mg tablet once daily. Multivitamin capsule Take 1 capsule by mouth once daily. mometasone (NASONEX) 50 mcg/actuation nasal spray Use 2 Sprays in the nose once daily. OBJECTIVE: There were no vitals taken for this visit. PHYSICAL EXAM GENERAL APPEARANCE: Well nourished, well developed, and no apparent distress. NEURO PSYCH: Patient oriented to person, place, and time. Mood pleasant. Benign affect. CARDIOVASCULAR: Palpable pulses. No edema noted. No varicosities. SKIN: Head, neck, trunk, and extremities dry, intact and without lesions. LYMPHATICS: No palpable nodes in axillae areas. Groin exam deferred MUSCULOSKELETAL PALPATION: SPINOUS PROCESS: No pain. PARASPINALS: No pain. MUSCLE TONE and BULK: Symmetrical in the lower extremities. MOTOR: Left Right Lower Extremity Hip Flexors 5/5 5/5 Quadriceps 5/5 5/5 Dorsiflexion 0/5 5/5 EHL/EDC 5/5 5/5 Plantar Flexion 5/5 5/5 SENSORY: Sensation intact to light touch L1-S1 GAIT: Able to perform toe and heel walk. Able to perform tandem gait. LONG TRACT SIGNS: No clonus. REFLEXES: symmetric non-brisk DATA REVIEW EMG 03/12/2025: ASSESSMENT/PLAN Shivani Bonilla is a 75-year-old male with left leg pain - I had a long discussion today with the patient and his . He has significant left leg pain. Recommend a selective nerve root block of L5 with interventional radiology. Consults placed today. He will follow-up me 2 weeks after the injection. The following portions of the patient's history were reviewed, confirmed, and updated as necessary: allergies, current medications, past family history, past medical history, past social history, past surgical history, problem list, HPI, and ROS obtained by others. Some elements may be copied from a previous office note and have been reviewed/updated where appropriate. All portions reflect current medical decision making from today. The clinical and radiographic findings as well as the risks, benefits and alternatives of treatment have been reviewed in detail with the patient. Advised to call the office if symptoms worsen or new symptoms develop. Patient expressed understanding and is in agreement with plan. Jonah Brink DO This note was partially generated using [employer] voice recognition system, and there may be some incorrect words, spellings, and punctuation that were not noted in checking the note before saving. documented in this encounter [facility] 03-25-2025 Note HNO ID: [id number] Author: JONAH BRINK DO Service: ? Author Type: Physician Type: Progress Notes Filed: 03/25/2025 13:55 Note Text: Jonah Brink DO [facility] - Orthopedic Spine Surgeon [address], [facility] [address] [address] [place] [address] Phone: [phone] ([phone]) FAX: [phone] SPINE SURGERY OUTPATIENT CONSULT SERVICE DATE: 03/25/2025 LAST OFFICE VISIT: 02/18/2025 DATE OF : 1950 REFERRING PROVIDER: No referring provider defined for this encounter. CHIEF COMPLAINT: Left leg pain HISTORY OF PRESENT ILLNESS Shivani Bonilla is a 75 year old male presenting with spouse. He presented to the office on 02/18/2025. Pain began several months ago. Had been getting progressively worse. 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 Stated that he did have some gluteal pain, but left ankle was the most painful. Stated that he had tried physical therapy for this with no relief in symptoms. Stated that was affecting his activities of daily living. He had significant lumbar radiculopathy. He had been dealing with this for quite some time. He had his ankle evaluated by several foot and ankle specialist. Recommend an EMG of the patient's lumbar spine to confirm that this was coming from his lumbar spine. He will follow-up me once the EMG is completed, prompting his visit today. Today states he continues to have severe left leg pain. States that is also numb. Pain is in the L5 distribution but only distal to the left knee. 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 He presents for imaging review, evaluation and plan of care. PREVIOUS CONSERVATIVE TREATMENTS: Gabapentin PREVIOUS SURGERY: None Smoker: denies Diabetic: denies Anticoagulants / Antiplatelets: denies Occupation: [employer] PAST MEDICAL HISTORY Diagnosis Date Asthma (HCC) Left foot pain Prostate cancer (HCC) Rheumatoid arthritis Right foot pain PAST SURGICAL HISTORY Procedure Laterality Date ARTHRP KNE CONDYLEANDPLATU MEDIALANDLAT COMPARTMENTS Left 08/13/2004 ARTHRP KNE CONDYLEANDPLATU MEDIALANDLAT COMPARTMENTS Right 08/13/2014 CARPAL TUNNEL 82,83 x2 each wrist COLONOSCOPY 08/13/2009 FOOT SURGERY HX Right 07/2020 FOOT SURGERY HX Right 11/29/2020 FOOT SURGERY HX Left 08/18/2024 INGUINAL HERNIA REPAIR HX Right 09/13/2014 LX REPAIR RECURRENT VENTRAL HERNIA 11/08/2015 Laparoscopic repair of recurrent ventral hernia PAST SURGICAL HISTORY OF 01/11/1993 kidney stone removal PAST SURGICAL HISTORY OF 08/13/1997 cardiac catherization PAST SURGICAL HISTORY OF Left 08/13/2005 knee revision PAST SURGICAL HISTORY OF 11/24/2022 Kidney stone removal REMOVAL OF PROSTATE 02/10/2013 SHOULDER SURGERY HX Right 08/21/2023 TONSILLECTOMY HX 08/13/1977 FAMILY HISTORY Problem Relation Age of Onset other (negative [Other]) Unknown Social History Tobacco Use Smoking status: Never Passive exposure: Never Smokeless tobacco: Never Vaping Use Vaping status: Never Used Substance Use Topics Alcohol use: No Drug use: No ALLERGIES Allergen Reactions Gluten Shortness of Breath Peanuts Shortness of Breath Yeast, Dried Shortness of Breath MEDICATIONS: gabapentin (NEURONTIN) 300 mg capsule Take 1 capsule by mouth two times a day for 30 days. ACTEMRA ACTPEN 162 mg/0.9 mL 1 injection Subcutaneous weekly for 28 days gabapentin (NEURONTIN) 300 mg capsule Take 2 capsules by mouth daily at bedtime for 90 days. DULoxetine (CYMBALTA) 30 mg capsule Take 30 mg by mouth once daily. hydrOXYchloroQUINE (PLAQUENIL) 200 mg tablet linezolid (ZYVOX) 600 mg tablet budesonide/formoterol fumarate (SYMBICORT INHALATION) Inhale as instructed. tiotropium bromide (SPIRIVA RESPIMAT INHALATION) Inhale as instructed. leflunomide (ARAVA) 20 mg tablet Take 20 mg by mouth once daily. montelukast (SINGULAIR) 10 mg tablet once daily. folic acid 1 mg tablet once daily. Multivitamin capsule Take 1 capsule by mouth once daily. mometasone (NASONEX) 50 mcg/actuation nasal spray Use 2 Sprays in the nose once daily. OBJECTIVE: There were no vitals taken for this visit. PHYSICAL EXAM GENERAL APPEARANCE: Well nourished, well developed, and no apparent distress. NEURO PSYCH: Patient oriented to person, place, and time. Mood pleasant. Benign affect. CARDIOVASCULAR: Palpable pulses. No edema noted. No varicosities. SKIN: Head, neck, trunk, and extremities dry, intact and without lesions. LYMPHATICS: No palpable nodes in axillae areas. Groin exam deferred MUSCULOSKELETAL PALPATION: SPINOUS PROCESS: No pain. PARASPINALS: No pain. MUSCLE TONE and BULK: Symmetrical in the lower extremities. MOTOR: Left Right Lower Extremity Hip Flexors 5/5 5/5 Quadriceps 5/5 5/5 Dorsiflexion 0/5 5/5 EHL/EDC 5/5 5/5 Plantar Flexion 5/5 5/5 SENSORY: Sensation intact to light touch L1-S1 GAIT: Able to perform toe a (more content not included)... [facility] 03-12-2025 Note HNO ID: [id number] Author: MCKINLEY GUZMAN DPM Service: ? Author Type: Physician Type: Progress Notes Filed: 03/20/2025 10:28 Note Text: HPI: This 75 year old male presents for follow up of right 2nd toe wound. States that the wound is taking a while to heal but is looking good overall. Have been applying Mesalt and dressing overtop. Patient has been ambulating in an AFO brace to the [facility]. Also complains of new bruising to the top of the left foot. Denies any trauma that he recalls. Admits to having continuous aching, sharp, shooting pain. Pain is somewhat controlled with Gabapentin. Has been weightbearing as tolerated to the left lower extremity in a shoe with use of AFO brace. Recently started Actemra with rheum about a couple of months ago. He did see Dr. Mayorga for his back and got an MRI and EMG completed and will be following up with him to discuss results next week. Denies any current nausea, vomiting, fever, chills, shortness of breath, chest pain or calf pain. Denies any other pedal complaints PAST MEDICAL HISTORY Diagnosis Date Asthma (HCC) Left foot pain Prostate cancer (HCC) Rheumatoid arthritis Right foot pain Current Outpatient Medications Medication Sig ACTEMRA ACTPEN 162 mg/0.9 mL 1 injection Subcutaneous weekly for 28 days DULoxetine (CYMBALTA) 30 mg capsule Take 30 mg by mouth once daily. hydrOXYchloroQUINE (PLAQUENIL) 200 mg tablet linezolid (ZYVOX) 600 mg tablet budesonide/formoterol fumarate (SYMBICORT INHALATION) Inhale as instructed. tiotropium bromide (SPIRIVA RESPIMAT INHALATION) Inhale as instructed. leflunomide (ARAVA) 20 mg tablet Take 20 mg by mouth once daily. montelukast (SINGULAIR) 10 mg tablet once daily. folic acid 1 mg tablet once daily. Multivitamin capsule Take 1 capsule by mouth once daily. mometasone (NASONEX) 50 mcg/actuation nasal spray Use 2 Sprays in the nose once daily. gabapentin (NEURONTIN) 300 mg capsule Take 1 capsule by mouth two times a day for 30 days. gabapentin (NEURONTIN) 300 mg capsule Take 2 capsules by mouth daily at bedtime for 90 days. No current facility-administered medications for this visit. ALLERGIES Allergen Reactions Gluten Shortness of Breath Peanuts Shortness of Breath Yeast, Dried Shortness of Breath Objective: Patient presents weightbearing as tolerated to left leg. Problem focus examination to the left lower extremity: Incision site is well coapted without evidence of dehiscence. No erythema or edema surrounding surgical site. No drainage. No lymphadenopathy. No lymphangitis. No surrounding cellulitis. No signs of infection. Patient has no pain to palpation of calf. The calf is soft, supple and nontender without evidence of DVT. Negative Sita's test. Satisfactory alignment is noted. Pedal pulses are palpable. Capillary refill time is less than three seconds to all digits. Sensations are intact to light touch. There is local edema and ecchymosis noted at the to 5th digit left foot. No pain to palpation to left 1st-5th digits or metatarsal shaft due to underlying neuropathy. Flexor and extensor strength maintained to digital level. No pain noted to palpation of the cuboid or the adjacent metatarsals or lisfranc joint complex. Problem focused examination to the right lower extremity: Pedal pulses are palpable. Capillary refill time is less than three seconds to all digits. Sensations are intact to light touch. Second toe sore on right foot with small clear discharge, see below: Wound location: R foot second dorsal PIPJ size: 1.0 cm x 0.5 cm x 0.1 cm = 1 total sq cm Type: Pressure/friction Depth: Ulceration extends Full thickness down to subcutaneous Base: Granular and Fibrotic SOI: No clinical SOI Probe: Ulcer does not probe to bone. Drainage: Small amount of serous drainage. General foot morphology: decreased medial longitudinal arch with plantar prominence at midfoot. 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 +4/5 muscle strength Dorsiflexion, Plantarflexion, Inversion, Eversion, no DF strength to LLE, limited PF strength. No palpable dell noted to achilles tendon. Non palpable AT tendon concerning for chronic rupture. Foot drop noted of LLE. No tenderness to palpation of left achilles tendon at mid substance level. No palpable dells. Negative ignacio test. Tenderness to palpation of left forefoot and midfoot improved since last exam. ROM of the 1st MTPJ is decreased without pain or crepitus. ROM of the MTJ/STJ is decreased without pain or crepitus. Ankle joint ROM is decreased with pain on palpation noted to the left > right. No erythema or edema about the plantar midfoot right. No pain on palpation of left 2nd metatarsal bone. Radiographs: 3 views of the left foot were taken today. Radiographic impression: Joint spaces maintained. Complete extra-articular nondisplaced oblique fracture noted to the proximal phalanx of the fifth digit. No bony cys (more content not included)... [facility] 03-12-2025 Note HNO ID: [id number] Author: NATASHA BEAL LPN Service: ? Author Type: LICENSED NURSE Type: Progress Notes Filed: 03/20/2025 10:28 Note Text: REVIEW OF SYSTEMS: GENERAL: Well developed, well nourished. No acute distress PAIN: Pain Bilateral feet CARDIOVASCULAR: Negative for chest pain, leg swelling and palpations. MSK: Positive for joint swelling SKIN: Negative for lesions, rash, itching, metal sensitivity NEURO: Numbness/tingling of extremties ENDOCRINE: Negative for diabetic associated symptoms HEMATOLOGY: Negative for excessive bleeding, clots, bleeding disorders. [facility] 03-12-2025 Note HNO ID: [id number] Author: BRIT NOYOLA DO Service: ? Author Type: Physician Type: Procedures Filed: 03/12/2025 15:57 Note Text: Patient Name: Shivani Bonilla Date: March 12, 2025 Patient : 1950 Patient Age: [age] year old CC: Patient presents with: EMG Vitals: There were no vitals taken for this visit. The HANDP completed on 02/03/25 I have reviewed the history and physical and examined the patient and there are no changes unless noted below: No update and/or changes to Shivani Bonilla history and physical. UNIVERSAL PROTOCOL / SAFETY CHECKLIST Procedure to be Performed: LLE EMG, referral from Shaan Mayorga DO Sign In: A Moment of CARE was completed. Personnel directly involved with the procedure wore the appropriate PPE (Personal Protective Equipment). Patient/Surrogate Stated/Verified: PATIENT VERIFIED(optional for EMERGENT procedures): Patient name, Date of , Relevant allergies and The intended procedure Time Out Communication: Consent documented and matches the intended procedure. Sign Out: SIGN OUT (optional for EMERGENT procedures): No specimen collected. Patient is aware of potential risks and benefits of this procedure. Patient wishes to proceed. Electrodiagnostic testing was performed today was significant for a severe, sensorimotor peripheral polyneuropathy affecting the left lower extremity. Full report and data will be scanned into the chart. Brit Noyola DO [facility] 03-12-2025 Procedure note Patient Name: Shivani Bonilla Date: March 12, 2025 Patient : 1950 Patient Age: [age] year old CC: Patient presents with: EMG Vitals: There were no vitals taken for this visit. The H&P completed on 02/03/25 I have reviewed the history and physical and examined the patient and there are no changes unless noted below: No update and/or changes to Shivani Bonilla history and physical. UNIVERSAL PROTOCOL / SAFETY CHECKLIST Procedure to be Performed: LLE EMG, referral from Shaan Mayorga DO Sign In: A Moment of CARE was completed. Personnel directly involved with the procedure wore the appropriate PPE (Personal Protective Equipment). Patient/Surrogate Stated/Verified: PATIENT VERIFIED(optional for EMERGENT procedures): Patient name, Date of , Relevant allergies and The intended procedure Time Out Communication: Consent documented and matches the intended procedure. Sign Out: SIGN OUT (optional for EMERGENT procedures): No specimen collected. Patient is aware of potential risks and benefits of this procedure. Patient wishes to proceed. Electrodiagnostic testing was performed today was significant for a severe, sensorimotor peripheral polyneuropathy affecting the left lower extremity. Full report and data will be scanned into the chart. Brit Noyola DO [facility] 03-12-2025 Procedure note Patient Name: Shivani Bonilla Date: March 12, 2025 Patient : 1950 Patient Age: [age] year old CC: Patient presents with: EMG Vitals: There were no vitals taken for this visit. The H&P completed on 02/03/25 I have reviewed the history and physical and examined the patient and there are no changes unless noted below: No update and/or changes to Shivani Bonilla history and physical. UNIVERSAL PROTOCOL / SAFETY CHECKLIST Procedure to be Performed: LLE EMG, referral from Shaan Mayorga DO Sign In: A Moment of CARE was completed. Personnel directly involved with the procedure wore the appropriate PPE (Personal Protective Equipment). Patient/Surrogate Stated/Verified: PATIENT VERIFIED(optional for EMERGENT procedures): Patient name, Date of , Relevant allergies and The intended procedure Time Out Communication: Consent documented and matches the intended procedure. Sign Out: SIGN OUT (optional for EMERGENT procedures): No specimen collected. Patient is aware of potential risks and benefits of this procedure. Patient wishes to proceed. Electrodiagnostic testing was performed today was significant for a severe, sensorimotor peripheral polyneuropathy affecting the left lower extremity. Full report and data will be scanned into the chart. Brit Noyola DO documented in this encounter [facility] 02-20-2025 Consult note [facility] 02-20-2025 History and physical note Note Date/Time February 20, 2025 10:15am [facility] Medical Records Department [address] [place] [address] History & Physical Exam 02/20/25 1015 MR#: [id number] Acct: [id number] Name: SHIVANI BONILLA Rep #:[id number] : 1950 75 From: Esteban gama MD PCP: Dr. Ganga Acosta DO Status:[facility] Location: [place] [address] History and Physical Date of Admission: 02/20/25 Intake Vital Signs 11/09/2514:52 02/11/2512:59 Height 5 ft 10 in 5 ft 10 in Weight: 231 lb 2 oz BMI 33.1 BP 129/79 H Blood Pressure Location Rt brachial Position Sitting Respiration 18 Pulse 71 Pulse Source Monitor Temp 97.2 F L Temp Source Temporal Pulse Oximetry (%) 95 Oxygen Delivery Method room air Intake Visit Reasons: RECALL COLONOSCOPY Chief Complaint: Colonoscopy [employer] Required: No Accompanied by: Is patient in pain?: No Allergies doxycycline Adverse Reaction (Intermediate, Verified 02/10/25 13:01) HivesEnvironmental Allergies: Uncoded Adverse Reaction (Intermediate, Verified 02/10/25 13:01) Other Medications ?Medication ?Instructions ?Recorded ?Confirmed ?Type risedronate 150 mg tablet 150 mg PO QMONTH BONES 11/25/20 02/10/25 History hydroxychloroquine 200 mg tablet 200 mg PO DAILY arthritis 01/05/2102/10 History (Plaquenil) albuterol sulfate 90 mcg/actuation 2 inh inhalation Q6H PRN ASTHMA #3 10/0502/10/25 Rx aerosol inhaler ea azelastine 137 mcg (0.1 %) nasal 2 spray intranasal BID breathing 2 02/10/25 History spray cholecalciferol (vitamin D3) 50 50 mcg PO DAILY supplement 12/27/21 0709/06 History mcg (2,000 unit) capsule leflunomide 20 mg tablet 20 mg PO DAILY arthritis 05/16/22 History multivitamin (Multiple Vitamins 1 tab PO DAILY supplement 05/16/2202/10 History tablet) gabapentin 100 mg capsule 400 mg PO QHS pain 09/18/22 02/10/25 His tory flurbiprofen 100 mg tablet 100 mg PO DAILY PRN pain #90 tabs 02/10/25 Rx famotidine 20 mg tablet 20 mg PO QDAY 04/02/24 02/10/25 History budesonide-formoterol HFA 160 2 inh inhalation BID breathing #3 02/10/25 Rx mcg-4.5 mcg/actuation aerosol ea inhaler (Symbicort) prednisone 10 mg tablet 10 mg PO QDAY #30 tabs 07/16/24 02/10/25 Rx fluticasone propionate 50 2 spray intranasal DAILY #3 ea 09/09/24 02/10/25 Rx mcg/actuation nasal spray,suspension tiotropium bromide 1.25 2 inh inhalation DAILY BREATHING 5 02/10/25 Rx mcg/actuation mist for inhalation #3 device (Spiriva Respimat) montelukast 10 mg tablet 10 mg PO QPM sinuses #90 tabs 10/02/24 0 02/10/25 Rx tocilizumab 162 mg/0.9 mL mg subcut QWEEK 02/10/25 02/10/25 History subcutaneous pen injector (Actemra ACTPen) Have you fallen in the past year?: No PFSH Medical History (Updated 02/10/25 @ 13:[address] Esteban Eugene MD) Polyneuropathy Cancer Fatigue Skin cancer Glaucoma Carpal tunnel syndrome Cataracts, bilateral Wears glasses Cancer History of steroid therapy Arthritis Kidney stones Gastric reflux Non-smoker CPAP (continuous positive airway pressure) dependence Sleep apnea Shortness of breath on exertion History of echocardiogram History of stress test Cardiology follow-up encounter Neuropathy KEZIA treated with BiPAP Moderate persistent allergic asthma without complication Asbestos exposure GERD (gastroesophageal reflux disease) BPH (benign prostatic hyperplasia) Osteopenia Osteoarthritis DDD (degenerative disc disease), cervical Gastric ulcer Obesity Rheumatoid arthritis Kidney stones Prostate cancer Surgical History (Updated 02/10/25 @ 13:06 by Samantha Singh) History of shoulder replacement History of cardiac catheterization Hx of colonoscopy Hx of foot surgery History of removal of retained hardware History of tonsillectomy History of rhinoplasty History of total knee arthroplasty H/O prostatectomy History of inguinal hernia repair History of carpal tunnel release History of left heart catheterization (07/23/18) Family History Mother Heart disease CHF atrial fibSister Hypertension Social History household members: spouse Smoking Status: Never smoker second hand exposure: No alcohol intake: never substance use type: does not use what type of physical activity do you participate in: none drea/mosque: [employer] seatbelt use: always HPI HPI HPI: Patient is a 75-year-old male here to discuss follow-up colonoscopy 5 years after his last colonoscopy. He had polyps removed and was recommended for repeat in 5 years. He does report that he had an episode of bright red blood recently but it was only 1 episode and it was painless. ROS General General: Yes fatigue; No weight change, appetite, colon cancer, breast cancer or weakness HEENT HEENT: No difficulty swallowing, eye injury, eye surgery, swollen glands or hoarseness Endo Endocrine: No thyroid disease, diabetes mellitus, thyroid cancer, Hair loss, heat intolerance or cold intolerance Skin Skin: Yes rash; No changing moles Breast Breast: No left breast lump, right breast lump, nipple discharge, breast pain, abnormal mammogram, abnormal US or breast enlargement Musc Musculoskeletal: Yes back problems, arthritis and rheumatoid arthritis; No gout or joint pain Cardio Cardiovascular: No murmur, pacemaker, heart disease, atrial fibrillation, high blood pressure, heart attack, heart stent, palpitations, shortness of breath with exertion or chest pain Psych Psychiatric: No depression, anxiety or hearing voices Resp Respiratory: Yes shortness of breath, Yes sleep apnea, No cough, No COPD, Yes asthma, No emphysema and No wheezing Gastro Gastrointestinal: No abdominal pain, No nausea or vomiting, No diarrhea, No constipation, Yes blood in stool, Yes acid reflux, No hemorrhoids, No ulcers, Nogallbladder problem and No black,tarry stools Mark Hematologic: No blood thinners, No blood disorders, No bleeding, No anemia and No blood clots Neuro Neurologic: No system reviewed and no additional complaints, except as documented, No as per HPI, No abnormal gait, No abnormal hearing, No abnormal movements, No abnormal speech, No behavioral changes, No burning sensations, No confusion, No convulsions, No disequilibrium, No dizziness, No localized weakness, No frequent falls, No headache(s), No lack of coordination, No loss ofvision, No memory loss, Yes numbness, No other visual disturbances, No radicularpain, No restless legs, No sensory deficit, No syncope, Yes tingling, No tremor(s), No weakness and No other Exam Const General: cooperative Orientation: alert and oriented x3 HENMT Head: normal to inspection Neck Neck: normal visual inspection and full ROM Chest Chest palpation & inspection: normal inspection of the chest Resp Effort & Inspection: normal respiratory effort Auscultation: clear to auscultation bilaterally Cardio Rate: regular rate Rhythm: regular rhythm GI Inspection: non-distended Palpation: soft and nontender Skin General: no rashes or lesions noted Neuro General: patient alert and patient oriented x3 Extrem General: full ROM Psych Appearance: grossly normal Mental Status: mental status grossly normal Assessment and Plan Assessment and Plan (1) History of colon polyps: Status: Acute Plan: Patient has a history of colon polyps and he recently had some blood in his stool. I recommended repeat surveillance colonoscopy. I explained endoscopy indetail to the patient. I explained the risks including but not limited to stroke or heart attack with anesthesia, perforation of the GI tract, bleeding, infection. I explained that any of these could necessitate further emergency surgery. The patient understands and all questions were answered sufficiently. The patient wishes to proceed with procedure. Esteban Eugene MD Pager: [facility] [address] [place] [address], [address] [place] [address] Office: I have examined the patient and the H&P has been reviewed. There are no clinicalchanges since date of exam. 02/20/25 1015 <Electronically signed by Esteban Eugene MD> Cosigner Signature (if applicable): CC: Dr. Esteban Eugene MD; Dr. Ganga Acosta DO~ Signed [facility] Work Phone: [phone]) 168-589707-11-2025 Consult note Author Patrick Lew [facility] Note Date/Time February 20, 2025 9:28 am [facility] Medical Records Department [address] [place] [address] Pre-Anesthesia Evaluation 02/20/2527 MR#: [id number] Acct: [id number] Name: SHIVANI BONILLA Rep #:[id number] : 1950 75 From: Patrick Lew MD PCP: Dr. Ganga Acosta, DO Status:RE G SDC Y Race: C Location: [place] [address] ASA Classification* ASA Classification ASA Classification: 2 Assessment & Plan Anesthesia* Anesthesia Assessment Anesthesia Assessment: Discussed sedation and/or anesthesia options, risks, benefits, and alternatives with patient/parents/legal guardian/POA. Questions invited. The patient/parents/legal guardian/POA seems to understand and agrees to proceedwith anesthesia plan. Reviewed the physical assessment, medical history, allergy history and patient home medications list prior to surgery/procedure/anesthetic and documented any changes. Performed airway and anesthesia risk assessments. Anesthesia Type Anesthesia Type: MAC Anesthesia Focused Assessment* Airway Assessment Mouth opens: >3 cm Mallampati Score: II Labs Anesthesia Preop lab: CBC WBC 7.3 K/mm3 (4.4-11.0) 10/30/22 12:25 10/30/22 RBC 4.53 M/mm3 (4.6-6.2) L 10/30/22 12:25 10/30/22 Hgb 14.0 g/dL (13.0-16.5) 10/30/22 12:25 10/30/22 Hct 42.5 % (40-54) 10/30/22 12:25 10/30/22 Plt Count 258 K/mm3 (150-450) 10/30/22 12:25 10/30/22 CHEMISTRY Potassium 3.9 mmol/L (3.5-5.1) 10/30/22 12:25 10/30/22 Sodium 137 mmol/L (136-145) 10/30/22 12:25 10/30/22 BUN 24 mg/dL (7-18) H 10/30/22 12:25 10/30/22 Creatinine 1.35 mg/dL (0.70-1.30) H 10/30/22 12:25 Glucose 87 mg/dL (74-106) 10/30/22 12:25 10/30/22 TSH 2.44 uIU/mL (0.358-3.74) 12/30/21 10:38 COAG Pre-Assessment Diagnosis/Proposed Procedure Planned Operative Procedure(s): COLONOSCOPY Anesthesia History Anesthesia History - rib knitter: Anesthesia History - rib knitter Hx Hospitalization Yes 02/19/25 08:47 Any Problems With Anesthesia [ No 11/09/24 16:58 1 (Initial Baseline)] Any Problems With Anesthesia No 02/19/25 08:47 Cholinesterase deficiency No 02/19/25 08:47 You/Your Family Experience No 02/19/25 08:47 fever (hyperthermia) with Relationship Recent Exposure to Contagious No 10/30/22 23:32 Disease Does patient have nerve No 02/19/25 08:47 stimulator Patient instructed to have device shut off --Does patient have Pacemaker or ICD? When Was Last Pacemaker Check QUESTION #4 FULL TEXT: You/Your Family Experience fever (hyperthermia) with Anesthesia Last Oral Intake Last Oral intake: Last Oral Intake NPO since Meds taken in AM with sips of water? Meds patient instructed to take am of surgery PONV PONV - rib knitter: PONV - rib knitter Female No 02/19/25 08:47 HX of Motion Sickness No 02/19/25 08:47 HX of N/V After Surgery No 02/19/25 08:47 Non-Smoker Yes 02/19/25 08:47 Duration of Surgery greater No 02/19/25 08:47 than 60 minutes Number of Risk Factors 1 02/19/25 08:47 PONV Score Low Risk 02/19/25 08:47 Height & Weight Height & Weight: Anesthesia: Height & Weight Height 5 ft 10 in 02/10/25 12:59 Respiratory Assessment Respiratory Assessment - rib knitter: Respiratory Tract Infection Hx - rib knitter Hx Respiratory Tract Infection No 02/19/25 08:47 STOP Sleep Apnea STOP Sleep Apnea - rib knitter: STOP Sleep Apnea - rib knitter Hx Hypertension No 02/19/25 08:47 Hx Sleep Apnea Yes 02/19/25 08:47 CPAP Yes 02/19/25 08:47 BIPAP No 02/19/25 08:47 Do you snore loudly (louder than talking or can be heard Do you often feel tired/ fatigued/ sleepy during daytime? Has anyone observed you stop breathing during sleep? STOP Results Positive 02/19/25 08:47 QUESTION #5 FULL TEXT : Do you snore loudly (louder than talking or can be heard through closed doors)? Tobacco Use History Tobacco Use History - rib knitter: Tobacco Use History - rib knitter Tobacco Use Smoking Status Never smoker 02/19/25 08:47 Hx Tobacco Use No 02/19/25 08:47 Years Smoking Packs Smoked per Day Smoking Cessation Date was within the last 15 years Hx Smoking Cessation Date Hx Smoking Cessation Counseling Hematologic Medial History Hematologic Hx - rib knitter: Hematologic Medical Hx - gm mobile Hx of Blood Transfusion No 02/19/25 08:47 Hx of Transfusion in last 3 No 02/19/25 08:47 Months Date of Last Transfusion (if within last 3 months) Ever experience any problems No 02/19/25 08:47 with transfusion(s)? Specify any problems Hx of Preganancy in last 3 N/A 02/19/25 08:47 Months Nurse Filling Out Transfusion CPOWERS2 02/19/25 08:47 & Questions: Date: 02/19/25 02/19/25 08:47 Time: 08:51 02/19/25 08:47 Patient unable to answer at this time (ie. confused, unrespo /Reproduction History /Reproductive History - rib knitter: /Reproductive Hx- rib knitter Hx Now Gestational Age (in weeks): EDC: Hx Hx Para Hx Section SAB PFSH Medical History Open wound Ambulates with cane Amputation toe History of pain when walking Polyneuropathy Cancer Fatigue Skin cancer Glaucoma Carpal tunnel syndrome Cataracts, bilateral Wears glasses Cancer History of steroid therapy Arthritis Kidney stones Gastric reflux Non-smoker CPAP (continuous positive airway pressure) dependence Sleep apnea Shortness of breath on exertion History of echocardiogram History of stress test Cardiology follow-up encounter Neuropathy KEZIA treated with BiPAP Moderate persistent allergic asthma without complication Asbestos exposure GERD (gastroesophageal reflux disease) BPH (benign prostatic hyperplasia) Osteopenia Osteoarthritis DDD (degenerative disc disease), cervical Gastric ulcer Obesity Rheumatoid arthritis Kidney stones Prostate cancer Home Medications ?Medication ?Instructions ?Recorded ?Last Taken ?Type risedronate 150 mg tablet 150 mg PO QMONTH BONES 11/2510/11/22 History hydroxychloroquine 200 mg tablet 200 mg PO DAILY arthr itis 01/05/21 Unknown History (Plaquenil) albuterol sulfate 90 mcg/actuation 2 inh inhalation Q6 H PRN ASTHMA #3 10/05/21 Unknown Rx aerosol inhaler ea azelastine 137 mcg (0.1 %) nasal 2 spray intranasal BI D breathing 12/26/21 Unknown History spray cholecalciferol (vitamin D3) 50 50 mcg PO DAILY supple ment 12/27/21 Unknown History mcg (2,000 unit) capsule leflunomide 20 mg tablet 20 mg PO DAILY arthritis 12/02 Unknown History multivitamin (Multiple Vitamins 1 tab PO DAILY supplem ent 05/16/22 Unknown History tablet) flurbiprofen 100 mg tablet 100 mg PO DAILY PRN pain #9 0 tabs 12/19/22 Unknown Rx famotidine 20 mg tablet 20 mg PO QDAY 04/02/24 Unkno wn History budesonide-formoterol HFA 160 2 inh inhalation BID abdiel athing #3 04/08/24 Unknown Rx mcg-4.5 mcg/actuation aerosol ea inhaler (Symbicort) fluticasone propionate 50 2 spray intranasal DAILY #3 ea 09/09/24 Unknown Rx mcg/actuation nasal spray,suspension tiotropium bromide 1.25 2 inh inhalation DAILY BREAT NICKI 09/26/24 Unknown Rx mcg/actuation mist for inhalation #3 device (Spiriva Respimat) montelukast 10 mg tablet 10 mg PO QPM sinuses #90 tab s 10/02/24 Unknown Rx tocilizumab 162 mg/0.9 mL 162 mg subcut Q7D 02/10/25 U nknown History subcutaneous pen injector (Actemra ACTPen) gabapentin 400 mg capsule 400 mg PO QHS 02/19/25 Unkno wn History Allergy/AdvReac Type Severity Reaction Status Date / Time doxycycline AdvReac Intermediate Hives Verified 02/19/25 08:43 Environmental Allergies: AdvReac Intermediate Other Verified 02/19/25 08:43 Uncoded Family History Mother Heart disease CHF atrial fib Sister Hypertension Surgical History H/O toe surgery History of shoulder replacement History of cardiac catheterization Hx of colonoscopy Hx of foot surgery History of removal of retained hardware History of tonsillectomy History of rhinoplasty History of total knee arthroplasty H/O prostatectomy History of inguinal hernia repair History of carpal tunnel release History of left heart catheterization (07/23/18) Social History household members: spouse Smoking Status: Never smoker second hand exposure: No alcohol intake: never substance use type: does not use what type of physical activity do you participate in: none drea/mosque: Latter Day seatbelt use: always Review of Systems (Anesthesia) ROS Narrative System reviewed and no additional complaints, except as documented. 02/20/25927 <Electronically signed by Patrick Lew MD > Date _ Patrick Lew MD [facility] Signature: Date CC: ~ Signed [facility] Work Phone: 1(328) 205-529707-11-2025 Consult note [facility] Medical Records Department [address] [place] [address] Anesthesia Postop Eval I 02/20/25 1115 MR#: [id number] Acct: [id number] Name: SHIVANI BONILLA Rep #:[id number] : 1950 75 From: Eric Rios PCP: Dr. Ganga Acosta, DO Status:RE G SDC Y Race: C Location: [place] [address] Anesthesia: Postop Eval I Current Vital Signs Temperature: 97.5 F Pulse Rate: 75 Blood Pressure: 136/90 Respiratory Rate: 22 Pulse Ox: 93 Oxygen Delivery Method: Room Air Assessment Airway patent: Yes Spontaneous unlabored respirations: Yes Mental status: Asleep nausea: No Vomiting: No Anesthesia Complication: No Fluid Hydration Crystalloid volume administer (ml): 700 Total IV fluid infused: 700 Progress Note Anesthesia document: Postop Eval 1 completed: Yes 02/20/25 1116 > Date _ Eric Godfrey Signature: Date CC: ~ Signed [facility]07-11-2025 Procedure note [facility] Medical Records Department [address] [place] [address] Colonoscopy Report MR#: [id number] Acct: [id number] Name: SHIVANI BONILLA Rep #:[id number] : 1950 75 From: Esteban gama MD PCP: Dr. Ganga Acosta, DO Status:[facility] Patient Name: Shivani Bonilla Procedure Date: 02/20/2025 10:21 AM Date of : 1950 Age: 75 Procedure: Colonoscopy Indications: High risk colon cancer surveillance: Personal history of colonic polyps Providers: Esteban Eugene MD Referring MD: Ganga Acosta Medicines: Propofol per Anesthesia Patient Profile: This is a 75 year old male. Refer to note in patient chart for documentation of history and physical. Last Colonoscopy: 5 years ago. Complications: No immediate complications. Estimated blood loss: Minimal. Procedure: Pre-Anesthesia Assessment: - Prior to the procedure, a History and Physical was performed, and patient medications and allergies were reviewed. The patient's tolerance of previous anesthesia was also reviewed. The risks and benefits of the procedure and the sedation options and risks were discussed with the patient. All questions were answered, and informed consent was obtained. Prior Anticoagulants: The patient has taken no anticoagulant or antiplatelet agents. After reviewing the risks and benefits, the patient was deemed in satisfactory condition to undergo the procedure. After I obtained informed consent, the scope was passed under direct vision. Throughout the procedure, the patient's blood pressure, pulse, and oxygen saturations were monitored continuously. The colonoscope was introduced through the anus and advanced to the cecum, identified by appendiceal orifice and ileocecal valve. The colonoscopy was performed without difficulty. The patient tolerated the procedure well. The quality of the bowel preparation was good. The ileocecal valve, appendiceal orifice, and rectum were photographed. Scope In: 10:27:59 AM Scope Withdrawal Time 0 hours 7 minutes 45 seconds Scope Out: 11:03:31 AM Total Procedure Duration Time 0 hours 35 minutes 32 seconds Findings: A medium polyp was found in the cecum. The polyp was sessile. The polyp was removed with a hot snare. Resection and retrieval were complete. The exam was otherwise without abnormality on direct and retroflexion views. Impression: - One medium polyp in the cecum, removed with a hot snare. Resected and retrieved. - The examination was otherwise normal on direct and retroflexion views. Recommendation: - Discharge patient to home. - Resume previous diet. - Continue present medications. - Await pathology results. - Repeat colonoscopy in 5 years for surveillance. Procedure Code(s): --- Professional --- 07782, Colonoscopy, flexible; with removal of tumor(s), polyp(s), or other lesion(s) by snare technique Diagnosis Code(s): --- Professional --- Z86.010, Personal history of colonic polyps D12.0, Benign neoplasm of cecum CPT copyright 2021 [employer]. All rights reserved. The codes documented in this report are preliminary and upon leaf stamper review may be revised to meet current compliance requirements. Esteban Eugene MD 02/20/2025 11:06:43 AM This report has been signed electronically. Number of Addenda: 0 Note Initiated On: 02/20/2025 10:21 AM 02/20/25 1106 Date _ Esteban Eugene MD Cosigner Signature: Date (if indicated) CC: Dr. Esteban Eugene MD; Dr. Ganga Acosta DO ~ Date Dictated: 02/20/25 1021 Date Transcribed: Fabric Sourcer: AC Signed [facility]07-11-2025 Procedure note [facility] Medical Records Department [address] [place] [address] Operative Report - CC Letter MR#: [id number] Acct: [id number] Name: SHIVANI BONILLA Rep #:[id number] : 1950 75 From: Esteban gama MD PCP: Dr. Ganga Acosta, DO Status:[place] [facility] 02/20/2025 Ganga Acosta Re : Colonoscopy procedure for Shivani Bonilla Dear Karla This procedure was performed on Thursday, February 20, 2025. My impressions and recommendations are as follows: Impressions : - One medium polyp in the cecum, removed with a hot snare. Resected and retrieved. - The examination was otherwise normal on direct and retroflexion views. Recommendations : - Discharge patient to home. - Resume previous diet. - Continue present medications. - Await pathology results. - Repeat colonoscopy in 5 years for surveillance. My findings are described in the full procedure note, which is enclosed. If I can be of further assistance, please feel free to contact me at Doctor phone number(s): , Work: . Sincerely, Esteban Eugene MD 02/20/2025 11:06:43 AM This report has been signed electronically. 02/20/25 1106 Date _ Esteban Eugene MD Cosign Signature: Date (if indicated) CC: Dr. Esteban Eugene MD; Dr. Ganga Acosta, DO ~ Date Dictated: 02/20/25 1021 Date Transcribed: Fabric Sourcer: LAURA Signed [facility]07-11-2025 History and physical note [facility] Medical Records Department [address] [place] [address] History & Physical Exam 02/20/25 1015 MR#: [id number] Acct: [id number] Name: SHIVANI BONILLA Rep #:[id number] : 1950 75 From: Esteban gama MD PCP: Dr. 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 Required: No Accompanied by: Is patient in pain?: No Allergies doxycycline Adverse Reaction (Intermediate, Verified 02/10/25 13:01) HivesEnvironmental Allergies: Uncoded Adverse Reaction (Intermediate, Verified 02/10/25 13:01) Other Medications ?Medication ?Instructions ?Recorded ?Confirmed ?Type risedronate 150 mg tablet 150 mg PO QMONTH BONES 11/25/20 02/10/25 History hydroxychloroquine 200 mg tablet 200 mg PO DAILY arthritis 01/05/2102/10 History (Plaquenil) albuterol sulfate 90 mcg/actuation 2 inh inhalation Q6H PRN ASTHMA #3 10/0502/10/25 Rx aerosol inhaler ea azelastine 137 mcg (0.1 %) nasal 2 spray intranasal BID breathing 2 02/10/25 History spray cholecalciferol (vitamin D3) 50 50 mcg PO DAILY supplement 12/27/2109/06 History mcg (2,000 unit) capsule leflunomide 20 mg tablet 20 mg PO DAILY arthritis 10/04/22 07/01/ 25 History multivitamin (Multiple Vitamins 1 tab PO DAILY supplement 05/16/2202/10 History tablet) gabapentin 100 mg capsule 400 mg PO QHS pain 09/18/22 02/10/25 His tory flurbiprofen 100 mg tablet 100 mg PO DAILY PRN pain #90 tabs 02/10/25 Rx famotidine 20 mg tablet 20 mg PO QDAY 04/02/24 02/10/25 History budesonide-formoterol HFA 160 2 inh inhalation BID breathing #3 02/10/25 Rx mcg-4.5 mcg/actuation aerosol ea inhaler (Symbicort) prednisone 10 mg tablet 10 mg PO QDAY #30 tabs 07/16/24 02/10/25 Rx fluticasone propionate 50 2 spray intranasal DAILY #3 ea 09/09/24 02/10/25 Rx mcg/actuation nasal spray,suspension tiotropium bromide 1.25 2 inh inhalation DAILY BREATHING 5 02/10/25 Rx mcg/actuation mist for inhalation #3 device (Spiriva Respimat) montelukast 10 mg tablet 10 mg PO QPM sinuses #90 tabs 10/02/24 0 02/10/25 Rx tocilizumab 162 mg/0.9 mL mg subcut QWEEK 02/10/25 02/10/25 History subcutaneous pen injector (Actemra ACTPen) Have you fallen in the past year?: No PFSH Medical History (Updated 02/10/25 @ 13:[address] Esteban Eugene MD) Polyneuropathy Cancer Fatigue Skin cancer Glaucoma Carpal tunnel syndrome Cataracts, bilateral Wears glasses Cancer History of steroid therapy Arthritis Kidney stones Gastric reflux Non-smoker CPAP (continuous positive airway pressure) dependence Sleep apnea Shortness of breath on exertion History of echocardiogram History of stress test Cardiology follow-up encounter Neuropathy KEZIA treated with BiPAP Moderate persistent allergic asthma without complication Asbestos exposure GERD (gastroesophageal reflux disease) BPH (benign prostatic hyperplasia) Osteopenia Osteoarthritis DDD (degenerative disc disease), cervical Gastric ulcer Obesity Rheumatoid arthritis Kidney stones Prostate cancer Surgical History (Updated 02/10/25 @ 13:06 by Samantha Singh) History of shoulder replacement History of cardiac catheterization Hx of colonoscopy Hx of foot surgery History of removal of retained hardware History of tonsillectomy History of rhinoplasty History of total knee arthroplasty H/O prostatectomy History of inguinal hernia repair History of carpal tunnel release History of left heart catheterization (07/23/18) Family History Mother Heart disease CHF atrial fibSister Hypertension Social History household members: spouse Smoking Status: Never smoker second hand exposure: No alcohol intake: never substance use type: does not use what type of physical activity do you participate in: none drea/mosque: L[employer] seatbelt use: always HPI HPI HPI: Patient is a 75-year-old male here to discuss follow-up colonoscopy 5 years after his last colonoscopy. He had polyps removed and was recommended for repeat in 5 years. He does report that he had an episode of bright red blood recently but it was only 1 episode and it was painless. ROS General General: Yes fatigue; No weight change, appetite, colon cancer, breast cancer or weakness HEENT HEENT: No difficulty swallowing, eye injury, eye surgery, swollen glands or hoarseness Endo Endocrine: No thyroid disease, diabetes mellitus, thyroid cancer, Hair loss, heat intolerance or cold intolerance Skin Skin: Yes rash; No changing moles Breast Breast: No left breast lump, right breast lump, nipple discharge, breast pain, abnormal mammogram, abnormal US or breast enlargement Musc Musculoskeletal: Yes back problems, arthritis and rheumatoid arthritis; No gout or joint pain Cardio Cardiovascular: No murmur, pacemaker, heart disease, atrial fibrillation, high blood pressure, heart attack, heart stent, palpitations, shortness of breath with exertion or chest pain Psych Psychiatric: No depression, anxiety or hearing voices Resp Respiratory: Yes shortness of breath, Yes sleep apnea, No cough, No COPD, Yes asthma, No emphysema and No wheezing Gastro Gastrointestinal: No abdominal pain, No nausea or vomiting, No diarrhea, No constipation, Yes bloodin stool, Yes acid reflux, No hemorrhoids, No ulcers, Nogallbladder problem and No black,tarry stools Mark Hematologic: No blood thinners, No blood disorders, No bleeding, No anemia and No blood clots Neuro Neurologic: No system reviewed and no additional complaints, except as documented, No as per HPI, No abnormal gait, No abnormal hearing, No abnormal movements, No abnormal speech, No behavioral changes, No burning sensations, No confusion, No convulsions, No disequilibrium, No dizziness, No localized weakness, No frequent falls, No headache(s), No lack of coordination, No loss ofvision, No memoryloss, Yes numbness, No other visual disturbances, No radicularpain, No restless legs, No sensory deficit, No syncope, Yes tingling, No tremor(s), No weakness and No other Exam Const General: cooperative Orientation: alert and oriented x3 HENMT Head: normal to inspection Neck Neck: normal visual inspection and full ROM Chest Chest palpation & inspection: normal inspection of the chest Resp Effort & Inspection: normal respiratory effort Auscultation: clear to auscultation bilaterally Cardio Rate: regular rate Rhythm: regular rhythm GI Inspection: non-distended Palpation: soft and nontender Skin General: no rashes or lesions noted Neuro General: patient alert and patient oriented x3 Extrem General: full ROM Psych Appearance: grossly normal Mental Status: mental status grossly normal Assessment and Plan Assessment and Plan (1) History of colon polyps: Status: Acute Plan: Patient has a history of colon polyps and he recently had some blood in his stool. I recommended repeat surveillance colonoscopy. I explained endoscopy indetail to the patient. I explained the risks including but not limited to stroke or heart attack with anesthesia, perforation of the GI tract, bleeding, infection. I explained that any of these could necessitate further emergency surgery. The patient understands and all questions were answered sufficiently. The patient wishes to proceed with procedure. Esteban Eugene MD Pager: [facility] [address] [place] [address], [address] [place] [address] Office: I have examined the patient and the H&P has been reviewed. There are no clinicalchanges since date of exam. 02/20/251014 Cosigner Signature (if applicable): CC: Dr. Esteban Eugene MD; Dr. Ganga Acosta, DO~ Signed [facility]07-11-2025 [facility] Medical Records Department [address] [place], [place] [id number] History Physical Exam 02/20/25 101 MR#: [id number] Acct: [id number] Name: SHIVANI BONILLA Rep #: [id number] : 1950 75 From: Esteban Eugene MD PCP: Dr. Ganga Acosta, DO Status[place] [place]: [place] [address] History and Physical Date of Admission: 02/20/25 Intake Vital Signs 11/09/2514:52 02/11/2512:59 Height 5 ft 10 in 5 ft 10 in Weight: 231 lb 2 oz BMI 33.1 BP 129/79 H Blood Pressure Location Rt brachial Position Sitting Respiration 18 Pulse 71 Pulse Source Monitor Temp 97.2 F L Temp Source Temporal Pulse Oximetry (%) 95 Oxygen Delivery Method room air Intake Visit Reasons: RECALL COLONOSCOPY Chief Complaint: Colonoscopy [employer] Required: No Accompanied by: Is patient in pain?: No Allergies doxycycline Adverse Reaction (Intermediate, Verified 02/10/25 13:01) HivesEnvironmental Allergies: Uncoded Adverse Reaction (Intermediate, Verified 02/10/25 13:01) Other Medications ???Medication ???Instructions ???Recorded ???Confirmed ???Type risedronate 150 mg tablet 150 mg PO QMONTH BONES 11/25/20 02/10/25 History hydroxychloroquine 200 mg tablet 200 mg PO DAILY arthritis 01/05/21 02/10/25 Histor y (Plaquenil) albuterol sulfate 90 mcg/actuation 2 inh inhalation Q6H PRN ASTHMA #3 10/05/21 Rx aerosol inhaler ea azelastine 137 mcg (0.1 %) nasal 2 spray intranasal BID breathing 12/26/21 02/10/25 History spray cholecalciferol (vitamin D3) 50 50 mcg PO DAILY supplement 12/27/21 02/10/25 Histo ry mcg (2,000 unit) capsule leflunomide 20 mg tablet 20 mg PO DAILY arthritis 05/16/22 02/10/25 History multivitamin (Multiple Vitamins 1 tab PO DAILY supplement 05/16/22 02/10/25 Histor y tablet) gabapentin 100 mg capsule 400 mg PO QHS pain 09/18/22 02/10/25 History flurbiprofen 100 mg tablet 100 mg PO DAILY PRN pain #90 tabs 12/19/22 5 Rx famotidine 20 mg tablet 20 mg PO QDAY 04/02/24 02/10/25 History budesonide-formoterol HFA 160 2 inh inhalation BID breathing #3 04/08/24 5 Rx mcg-4.5 mcg/actuation aerosol ea inhaler (Symbicort) prednisone 10 mg tablet 10 mg PO QDAY #30 tabs 07/16/24 02/10/25 Rx fluticasone propionate 50 2 spray intranasal DAILY #3 ea 09/09/24 02/10/25 R x mcg/actuation nasal spray,suspension tiotropium bromide 1.25 2 inh inhalation DAILY BREATHING 09/26/24 02/10/25 Rx mcg/actuation mist for inhalation #3 device (Spiriva Respimat) montelukast 10 mg tablet 10 mg PO QPM sinuses #90 tabs 10/02/24 02/10/25 Rx tocilizumab 162 mg/0.9 mL mg subcut QWEEK 02/10/25 02/10/25 History subcutaneous pen injector (Actemra ACTPen) Have you fallen in the past year?: No PFSH Medical History (Updated 02/10/25 @ 13:[address] sEteban Eugene MD) Polyneuropathy Cancer Fatigue Skin cancer Glaucoma Carpal tunnel syndrome Cataracts, bilateral Wears glasses Cancer History of steroid therapy Arthritis Kidney stones Gastric reflux Non-smoker CPAP (continuous positive airway pressure) dependence Sleep apnea Shortness of breath on exertion History of echocardiogram History of stress test Cardiology follow-up encounter Neuropathy KEZIA treated with BiPAP Moderate persistent allergic asthma without complication Asbestos exposure GERD (gastroesophageal reflux disease) BPH (benign prostatic hyperplasia) Osteopenia Osteoarthritis DDD (degenerative disc disease), cervical Gastric ulcer Obesity Rheumatoid arthritis Kidney stones Prostate cancer Surgical History (Updated 02/10/25 @ 13:06 by Samantha Singh) History of shoulder replacement History of cardiac catheterization Hx of colonoscopy Hx of foot surgery History of removal of retained hardware History of tonsillectomy History of rhinoplasty History of total knee arthroplasty H/O prostatectomy History of inguinal hernia repair History of carpal tunnel release History of left heart catheterization (07/23/18) Family History Mother Heart disease CHF atrial fibSister Hypertension Social History household members: spouse Smoking Status: Never smoker second hand exposure: No alcohol intake: never substance use type: does not use what type of physical activity do you participate in: none drea/mosque: [employer] seatbelt use: always HPI HPI HPI: Patient is a 75-year-old male here to discuss follow-up colonoscopy 5 years after his last colonoscopy. He had polyps removed and was recommended for repeat in 5 years. He does report that he had an episode of bright red blood recently but it was only 1 episode and it was painless. ROS (more content not included)...[facility]07-11-2025 Consult note [facility] Medical Records Department [address] [place] [address] Pre-Anesthesia Evaluation 02/20/25926 MR#: [id number] Acct: [id number] Name: SHIVANI BONILLA Rep #:[id number] : 1950 75 From: Patrick Lew MD PCP: Dr. Ganga Acosta, DO Status:[facility] Y Race: C Location: [place] [address] ASA Classification* ASA Classification ASA Classification: 2 Assessment & Plan Anesthesia* Anesthesia Assessment Anesthesia Assessment: Discussed sedation and/or anesthesia options, risks, benefits, and alternatives with patient/parents/legal guardian/POA. Questions invited. The patient/parents/legal guardian/POA seems to understand and agrees to proceedwith anesthesia plan. Reviewed the physical assessment, medical history, allergy history and patient home medications list prior to surgery/procedure/anesthetic and documented any changes. Performed airway and anesthesia risk assessments. Anesthesia Type Anesthesia Type: MAC Anesthesia Focused Assessment* Airway Assessment Mouth opens: >3 cm Mallampati Score: II Labs Anesthesia Preop lab: CBC WBC 7.3 K/mm3 (4.4-11.0) 10/30/22 12:25 10/30/22 RBC 4.53 M/mm3 (4.6-6.2) L 10/30/22 12:25 10/30/22 Hgb 14.0 g/dL (13.0-16.5) 10/30/22 12:25 10/30/22 Hct 42.5 % (40-54) 10/30/22 12:25 10/30/22 Plt Count 258 K/mm3 (150-450) 10/30/22 12:25 10/30/22 CHEMISTRY Potassium 3.9 mmol/L (3.5-5.1) 10/30/22 12:25 10/30/22 Sodium 137 mmol/L (136-145) 10/30/22 12:25 10/30/22 BUN 24 mg/dL (7-18) H 10/30/22 12:25 10/30/22 Creatinine 1.35 mg/dL (0.70-1.30) H 10/30/22 12:25 Glucose 87 mg/dL (74-106) 10/30/22 12:25 10/30/22 TSH 2.44 uIU/mL (0.358-3.74) 12/30/21 10:38 COAG Pre-Assessment Diagnosis/Proposed Procedure Planned Operative Procedure(s): COLONOSCOPY Anesthesia History Anesthesia History - rib knitter: Anesthesia History - rib knitter Hx Hospitalization Yes 02/19/25 08:47 Any Problems With Anesthesia [ No 11/09/24 16:58 1 (Initial Baseline)] Any Problems With Anesthesia No 02/19/25 08:47 Cholinesterase deficiency No 02/19/25 08:47 You/Your Family Experience No 02/19/25 08:47 fever (hyperthermia) with Relationship Recent Exposure to Contagious No 10/30/22 23:32 Disease Does patient have nerve No 02/19/25 08:47 stimulator Patient instructed to have device shut off --Does patient have Pacemaker or ICD? When Was Last Pacemaker Check QUESTION #4 FULL TEXT: You/Your Family Experience fever (hyperthermia) with Anesthesia Last Oral Intake Last Oral intake: Last Oral Intake NPO since Meds taken in AM with sips of water? Meds patient instructed to take am of surgery PONV PONV - rib knitter: PONV - rib knitter Female No 02/19/25 08:47 HX of Motion Sickness No 02/19/25 08:47 HX of N/V After Surgery No 02/19/25 08:47 Non-Smoker Yes 02/19/25 08:47 Duration of Surgery greater No 02/19/25 08:47 than 60 minutes Number of Risk Factors 1 02/19/25 08:47 PONV Score Low Risk 02/19/25 08:47 Height & Weight Height & Weight: Anesthesia: Height & Weight Height 5 ft 10 in 02/10/25 12:59 Respiratory Assessment Respiratory Assessment - rib knitter: Respiratory Tract Infection Hx - rib knitter Hx Respiratory Tract Infection No 02/19/25 08:47 STOP Sleep Apnea STOP Sleep Apnea - rib knitter: STOP Sleep Apnea - rib knitter Hx Hypertension No 02/19/25 08:47 Hx Sleep Apnea Yes 02/19/25 08:47 CPAP Yes 02/19/25 08:47 BIPAP No 02/19/25 08:47 Do you snore loudly (louder than talking or can be heard Do you often feel tired/ fatigued/ sleepy during daytime? Has anyone observed you stop breathing during sleep? STOP Results Positive 02/19/25 08:47 QUESTION #5 FULL TEXT : Do you snore loudly (louder than talking or can be heard through closeddoors)? Tobacco Use History Tobacco Use History - rib knitter: Tobacco Use History - rib knitter Tobacco Use Smoking Status Never smoker 02/19/25 08:47 Hx Tobacco Use No 02/19/25 08:47 Years Smoking Packs Smoked per Day Smoking Cessation Date was within the last 15 years Hx Smoking Cessation Date Hx Smoking Cessation Counseling Hematologic Medial History Hematologic Hx - rib knitter: Hematologic Medical Hx - gm mobile Hx of Blood Transfusion No 02/19/25 08:47 Hx of Transfusion in last 3 No 02/19/25 08:47 Months Date of Last Transfusion (if within last 3 months) Ever experience any problems No 02/19/25 08:47 with transfusion(s)? Specify any problems Hx of Preganancy in last 3 N/A 02/19/25 08:47 Months Nurse Filling Out Transfusion CPOWERS2 02/19/25 08:47 & Questions: Date: 02/19/25 02/19/25 08:47 Time: 08:51 02/19/25 08:47 Patient unable to answer at this time (ie. confused, unrespo /Reproduction History /Reproductive History - rib knitter: /Reproductive Hx- rib knitter Hx Now Gestational Age (in weeks): EDC: Hx Hx Para Hx Section SAB PFSH Medical History Open wound Ambulates with cane Amputation toe History of pain when walking Polyneuropathy Cancer Fatigue Skin cancer Glaucoma Carpal tunnel syndrome Cataracts, bilateral Wears glasses Cancer History of steroid therapy Arthritis Kidney stones Gastric reflux Non-smoker CPAP (continuous positive airway pressure) dependence Sleep apnea Shortness of breath on exertion History of echocardiogram History of stress test Cardiology follow-up encounter Neuropathy KEZIA treated with BiPAP Moderate persistent allergic asthma without complication Asbestos exposure GERD (gastroesophageal reflux disease) BPH (benign prostatic hyperplasia) Osteopenia Osteoarthritis DDD (degenerative disc disease), cervical Gastric ulcer Obesity Rheumatoid arthritis Kidney stones Prostate cancer Home Medications ?Medication ?Instructions ?Recorded ?Last Taken ?Type risedronate 150 mg tablet 150 mg PO QMONTH BONES 11/2510/11/22 History hydroxychloroquine 200 mg tablet 200 mg PO DAILY arthr itis 01/05/21 Unknown History (Plaquenil) albuterol sulfate 90 mcg/actuation 2 inh inhalation Q6 H PRN ASTHMA #3 10/05/21 Unknown Rx aerosol inhaler ea azelastine 137 mcg (0.1 %) nasal 2 spray intranasal BI D breathing 12/26/21 Unknown History spray cholecalciferol (vitamin D3) 50 50 mcg PO DAILY supple ment 12/27/21 Unknown History mcg (2,000 unit) capsule leflunomide 20 mg tablet 20 mg PO DAILY arthritis 12/02 Unknown History multivitamin (Multiple Vitamins 1 tab PO DAILY supplem ent 05/16/22 Unknown History tablet) flurbiprofen 100 mg tablet 100 mg PO DAILY PRN pain #9 0 tabs 12/19/22 Unknown Rx famotidine 20 mg tablet 20 mg PO QDAY 04/02/24 Unkno wn History budesonide-formoterol HFA 160 2 inh inhalation BID abdiel athing #3 04/08/24 Unknown Rx mcg-4.5 mcg/actuation aerosol ea inhaler (Symbicort) fluticasone propionate 50 2 spray intranasal DAILY #3 ea 09/09/24 Unknown Rx mcg/actuation nasal spray,suspension tiotropium bromide 1.25 2 inh inhalation DAILY BREAT NICKI 09/26/24 Unknown Rx mcg/actuation mist for inhalation #3 device (Spiriva Respimat) montelukast 10 mg tablet 10 mg PO QPM sinuses #90 tab s 10/02/24 Unknown Rx tocilizumab 162 mg/0.9 mL 162 mg subcut Q7D 02/10/25 U nknown History subcutaneous pen injector (Actemra ACTPen) gabapentin 400 mg capsule 400 mg PO QHS 02/19/25 Unkno wn History Allergy/AdvReac Type Severity Reaction Status Date / Time doxycycline AdvReac Intermediate Hives Verified 02/19/25 08:43 Environmental Allergies: AdvReac Intermediate Other Verified 02/19/25 08:43 Uncoded Family History Mother Heart disease CHF atrial fib Sister Hypertension Surgical History H/O toe surgery History of shoulder replacement History of cardiac catheterization Hx of colonoscopy Hx of foot surgery History of removal of retained hardware History of tonsillectomy History of rhinoplasty History of total knee arthroplasty H/O prostatectomy History of inguinal hernia repair History of carpal tunnel release History of left heart catheterization (07/23/18) Social History household members: spouse Smoking Status: Never smoker second hand exposure: No alcohol intake: never substance use type: does not use what type of physical activity do you participate in: none drea/mosque: [employer] seatbelt use: always Review of Systems (Anesthesia) ROS Narrative System reviewed and no additional complaints, except as documented. 02/20/25 0928 > Date _ Patrick Lew MD Cosigner Signature: Date CC: ~ Signed [facility]07-09-2025 NoteHNO ID: [id number] Author: JONAH BRINK DO Service: ? Author Type: Physician Type: Progress Notes Filed: 02/19/2025 15:25 Note Text: Jonah Brink DO [facility] - Orthopedic Spine Surgeon [address], [facility] [address] [address] [facility] [address] [address], [address], [facility] [address] Phone: [phone] ([phone] FAX: [phone] SPINE SURGERY OUTPATIENT NOTE SERVICE DATE: 02/18/2025 REFERRING PROVIDER: No referring provider defined for this encounter. CHIEF COMPLAINT: left ankle pain, left leg pain HISTORY OF PRESENT ILLNESS Shivani Bonilla is a 75 year old male presenting with spouse. Pain began several months ago. Has been getting progressively worse. 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 States that he does have some gluteal pain, but left ankle is the most painful. States that he has tried physical therapy for this with no relief in symptoms. States that is affecting his activities of daily living. The following portions of the patient's history were reviewed and updated as appropriate: allergies, current medications, past family history, past medical history, past social history, past surgical history and problem list. ACTIVE PROBLEM LIST (none) - all problems resolved or deleted PAST MEDICAL HISTORY Diagnosis Date Asthma (HCC) Left foot pain Prostate cancer (HCC) Rheumatoid arthritis Right foot pain PAST SURGICAL HISTORY Procedure Laterality Date ARTHRP KNE CONDYLEANDPLATU MEDIALANDLAT COMPARTMENTS Left 08/13/2004 ARTHRP KNE CONDYLEANDPLATU MEDIALANDLAT COMPARTMENTS Right 08/13/2014 CARPAL TUNNEL 82,83 x2 each wrist COLONOSCOPY 08/13/2009 FOOT SURGERY HX Right 07/2020 FOOT SURGERY HX Right 11/29/2020 FOOT SURGERY HX Left 08/18/2024 INGUINAL HERNIA REPAIR HX Right 09/13/2014 LX REPAIR RECURRENT VENTRAL HERNIA 11/08/2015 Laparoscopic repair of recurrent ventral hernia PAST SURGICAL HISTORY OF 01/11/1993 kidney stone removal PAST SURGICAL HISTORY OF 08/13/1997 cardiac catherization PAST SURGICAL HISTORY OF Left 08/13/2005 knee revision PAST SURGICAL HISTORY OF 11/24/2022 Kidney stone removal REMOVAL OF PROSTATE 02/10/2013 SHOULDER SURGERY HX Right 08/21/2023 TONSILLECTOMY HX 08/13/1977 FAMILY HISTORY Problem Relation Age of Onset other (negative [Other]) Unknown Social History Tobacco Use Smoking status: Never Passive exposure: Never Smokeless tobacco: Never Vaping Use Vaping status: Never Used Substance Use Topics Alcohol use: No Drug use: No ALLERGIES Allergen Reactions Gluten Shortness of Breath Peanuts Shortness of Breath Yeast, Dried Shortness of Breath MEDICATIONS: gabapentin (NEURONTIN) 300 mg capsule Take 1 capsule by mouth two times a day for 30 days. ACTEMRA ACTPEN 162 mg/0.9 mL 1 injection Subcutaneous weekly for 28 days gabapentin (NEURONTIN) 300 mg capsule Take 2 capsules by mouth daily at bedtime for 90 days. DULoxetine (CYMBALTA) 30 mg capsule Take 30 mg by mouth once daily. hydrOXYchloroQUINE (PLAQUENIL) 200 mg tablet linezolid (ZYVOX) 600 mg tablet budesonide/formoterol fumarate (SYMBICORT INHALATION) Inhale as instructed. tiotropium bromide (SPIRIVA RESPIMAT INHALATION) Inhale as instructed. leflunomide (ARAVA) 20 mg tablet Take 20 mg by mouth once daily. montelukast (SINGULAIR) 10 mg tablet once daily. folic acid 1 mg tablet once daily. Multivitamin capsule Take 1 capsule by mouth once daily. mometasone (NASONEX) 50 mcg/actuation nasal spray Use 2 Sprays in the nose once daily. Review of systems documented within chart for 02/18/2025 visit and reviewed by me today OBJECTIVE: PHYSICAL EXAM Resp 18 Ht 177.8 cm (5' 10) Wt 100.2 kg (221 lb) BMI 31.71 kg/m? GENERAL APPEARANCE: Well nourished, well developed, and no apparent distress. NEURO PSYCH: Patient oriented to person, place, and time. Mood pleasant. Benign affect. CARDIOVASCULAR: Palpable pulses. No edema noted. No varicosities. SKIN: Head, neck, trunk, and extremities dry, intact and without lesions. LYMPHATICS: No palpable nodes in cervical or axillae areas. Groin exam deferred. MUSCULOSKELETAL PALPATION: SPINOUS PROCESS: No pain. PARASPINALS: No pain. MUSCLE TONE and BULK: Symmetrical in the upper AND lower extremities. MOTOR: Left Right Lower Extremity Hip Flexors 5/5 5/5 Quadriceps 5/5 5/5 Dorsiflexion 0/5 5/5 EHL 5/5 5/5 Plantar Flexion 5/5 5/5 SENSORY: Sensation intact to light touch C5-T1, L1-S1 GAIT: Able to perform toe and heel walk. Able to perform tandem gait. LONG TRACT SIGNS: No clonus. No Hoffmanns. REFLEXES: symmetric non-brisk DATA REVIEW 2 view lumbar x-ray 02/03/2025: My interpretation: AP lateral view lumbar spine displays a grade 1 spinal listhesis at L4-5 MRI lumbar spine 02/06/2025: My interpretation: MRI of the lumbar spine displays severe stenosis L4-5 with franklin (more content not included)...[facility]07-09-2025 History of Present illness Narrative* Jonah Brink DO - 02/18/2025 3:52 PM EDT Images from the original note were not included. Jonah Brink DO [facility] Orthopedics - Orthopedic Spine Surgeon [facility] [address], [facility] [address] [facility] [address] [address], [facility] [address] Phone: [phone] ([phone] FAX: [phone] SPINE SURGERY OUTPATIENT NOTE SERVICE DATE: 02/18/2025 REFERRING PROVIDER: No referring provider defined for this encounter. CHIEF COMPLAINT: left ankle pain, left leg pain HISTORY OF PRESENT ILLNESS Shivani Bonilla is a 75 year old male presenting with spouse. Pain began several months ago. Has been getting progressively worse. 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 States that he does have some gluteal pain, but left ankle is the most painful. States that he has tried physical therapy for this with no relief in symptoms. States that is affecting his activities of daily living. The following portions of the patient's history were reviewed and updated as appropriate: allergies, current medications, past family history, past medical history, past social history, past surgicalhistory and problem list. ACTIVE PROBLEM LIST (none) - all problems resolved or deleted PAST MEDICAL HISTORY Diagnosis Date Asthma (HCC) Left foot pain Prostate cancer (HCC) Rheumatoid arthritis Right foot pain PAST SURGICAL HISTORY Procedure Laterality Date ARTHRP KNE CONDYLE&PLATU MEDIAL&LAT COMPARTMENTS Left 08/13/2004 ARTHRP KNE CONDYLE&PLATU MEDIAL&LAT COMPARTMENTS Right 08/13/2014 CARPAL TUNNEL 82,83 x2 each wrist COLONOSCOPY 08/13/2009 FOOT SURGERY HX Right 07/2020 FOOT SURGERY HX Right 11/29/2020 FOOT SURGERY HX Left 08/18/2024 INGUINAL HERNIA REPAIR HX Right 09/13/2014 LX REPAIR RECURRENT VENTRAL HERNIA 11/08/2015 Laparoscopic repair of recurrent ventral hernia PAST SURGICAL HISTORY OF 01/11/1993 kidney stone removal PAST SURGICAL HISTORY OF 08/13/1997 cardiac catherization PAST SURGICAL HISTORY OF Left 08/13/2005 knee revision PAST SURGICAL HISTORY OF 11/24/2022 Kidney stone removal REMOVAL OF PROSTATE 02/10/2013 SHOULDER SURGERY HX Right 08/21/2023 TONSILLECTOMY HX 08/13/1977 FAMILY HISTORY Problem Relation Age of Onset other (negative [Other]) Unknown Social History Tobacco Use Smoking status: Never Passive exposure: Never Smokeless tobacco: Never Vaping Use Vaping status: Never Used Substance Use Topics Alcohol use: No Drug use: No ALLERGIES Allergen Reactions Gluten Shortness of Breath Peanuts Shortness of Breath Yeast, Dried Shortness of Breath MEDICATIONS: gabapentin (NEURONTIN) 300 mg capsule Take 1 capsule by mouth two times a day for 30 days. ACTEMRA ACTPEN 162 mg/0.9 mL 1 injection Subcutaneous weekly for 28 days gabapentin (NEURONTIN) 300 mg capsule Take 2 capsules by mouth daily at bedtime for 90 days. DULoxetine (CYMBALTA) 30 mg capsule Take 30 mg by mouth once daily. hydrOXYchloroQUINE (PLAQUENIL) 200 mg tablet linezolid (ZYVOX) 600 mg tablet budesonide/formoterol fumarate (SYMBICORT INHALATION) Inhale as instructed. tiotropium bromide (SPIRIVA RESPIMAT INHALATION) Inhale as instructed. leflunomide (ARAVA) 20 mg tablet Take 20 mg by mouth once daily. montelukast (SINGULAIR) 10 mg tablet once daily. folic acid 1 mg tablet once daily. Multivitamin capsule Take 1 capsule by mouth once daily. mometasone (NASONEX) 50 mcg/actuation nasal spray Use 2 Sprays in the nose once daily. Review of systems documented within chart for 02/18/2025 visit and reviewed by me today OBJECTIVE: PHYSICAL EXAM Resp 18 Ht 177.8 cm (5' 10) Wt 100.2 kg (221 lb) BMI 31.71 kg/m GENERAL APPEARANCE: Well nourished, well developed, and no apparent distress. NEURO PSYCH: Patient oriented to person, place, and time. Mood pleasant. Benign affect. CARDIOVASCULAR: Palpable pulses. No edema noted. No varicosities. SKIN: Head, neck, trunk, and extremities dry, intact and without lesions. LYMPHATICS: No palpable nodes in cervical or axillae areas. Groin exam deferred. MUSCULOSKELETAL PALPATION: SPINOUS PROCESS: No pain. PARASPINALS: No pain. MUSCLE TONE and BULK: Symmetrical in the upper & lower extremities. MOTOR: Left Right Lower Extremity Hip Flexors 5/5 5/5 Quadriceps 5/5 5/5 Dorsiflexion 0/5 5/5 EHL 5/5 5/5 Plantar Flexion 5/5 5/5 SENSORY: Sensation intact to light touch C5-T1, L1-S1 GAIT: Able to perform toe and heel walk. Able to perform tandem gait. LONG TRACT SIGNS: No clonus. No Hoffmanns. REFLEXES: symmetric non-brisk DATA REVIEW 2 view lumbar x-ray 02/03/2025: My interpretation: AP lateral view lumbar spine displays a grade 1 spinal listhesis at L4-5 MRI lumbar spine 02/06/2025: My interpretation: MRI of the lumbar spine displays severe stenosis L4-5 with severe foraminal stenosis bilaterally at L5-S1 compressing the L5 nerve root. ASSESSMENT/PLAN The clinical and radiographic findings as well as the risks, benefits and alternatives of treatmenthave been reviewed in detail with the patient. Shivani Bonilla is a 75-year-old male with lumbar radiculopathy - I had a long discussion today with the patient. He has significant lumbar radiculopathy. He has been dealing with this for quite some time. He has had his ankle evaluated by several foot and ankle specialist. Recommend an EMG of the patient's lumbar spine to confirm that this is coming from his lumbar spine. He will follow-up me once the EMG is completed. -Advised to call the office if symptoms worsen or new symptoms develop Jonah Brink DO Patient expressed understanding and is in agreement with plan. documented in this [facility] NoteHNO ID: [id number] Author: SHAAN MAYORGA DO Service: ? Author Type: Physician Type: Progress Notes Filed: 02/16/2025 10:04 Note Text: Job Bonilla is a 75-year-old male presenting for follow-up on MRI results and evaluation of chronic left leg and back pain. Chronic Left Leg and Back Pain: - Pain x6 months, exacerbated by standing >10 minutes. - Utilizes a walker or cane for ambulation. - Recent injection provided no relief. - No pain radiating down the right leg. - Reports weakness with dorsiflexion. - MRI results reviewed; EMG scheduled for the . PAST MEDICAL HISTORY Diagnosis Date Asthma (HCC) Left foot pain Prostate cancer (HCC) Rheumatoid arthritis Right foot pain PAST SURGICAL HISTORY Procedure Laterality Date ARTHRP KNE CONDYLEANDPLATU MEDIALANDLAT COMPARTMENTS Left 08/13/2004 ARTHRP KNE CONDYLEANDPLATU MEDIALANDLAT COMPARTMENTS Right 08/13/2014 CARPAL TUNNEL 82,83 x2 each wrist COLONOSCOPY 08/13/2009 FOOT SURGERY HX Right 07/2020 FOOT SURGERY HX Right 11/29/2020 FOOT SURGERY HX Left 08/18/2024 INGUINAL HERNIA REPAIR HX Right 09/13/2014 LX REPAIR RECURRENT VENTRAL HERNIA 11/08/2015 Laparoscopic repair of recurrent ventral hernia PAST SURGICAL HISTORY OF 01/11/1993 kidney stone removal PAST SURGICAL HISTORY OF 08/13/1997 cardiac catherization PAST SURGICAL HISTORY OF Left 08/13/2005 knee revision PAST SURGICAL HISTORY OF 11/24/2022 Kidney stone removal REMOVAL OF PROSTATE 02/10/2013 SHOULDER SURGERY HX Right 08/21/2023 TONSILLECTOMY HX 08/13/1977 Social History Tobacco Use Smoking status: Never Passive exposure: Never Smokeless tobacco: Never Vaping Use Vaping status: Never Used Substance Use Topics Alcohol use: No Drug use: No Current Outpatient Medications Medication Sig ACTEMRA ACTPEN 162 mg/0.9 mL 1 injection Subcutaneous weekly for 28 days DULoxetine (CYMBALTA) 30 mg capsule Take 30 mg by mouth once daily. hydrOXYchloroQUINE (PLAQUENIL) 200 mg tablet linezolid (ZYVOX) 600 mg tablet budesonide/formoterol fumarate (SYMBICORT INHALATION) Inhale as instructed. tiotropium bromide (SPIRIVA RESPIMAT INHALATION) Inhale as instructed. leflunomide (ARAVA) 20 mg tablet Take 20 mg by mouth once daily. Multivitamin capsule Take 1 capsule by mouth once daily. mometasone (NASONEX) 50 mcg/actuation nasal spray Use 2 Sprays in the nose once daily. gabapentin (NEURONTIN) 600 mg tablet Take 1 tablet by mouth once daily for 90 days. gabapentin (NEURONTIN) 300 mg capsule Take 1 capsule by mouth two times a day for 30 days. gabapentin (NEURONTIN) 300 mg capsule Take 2 capsules by mouth daily at bedtime for 90 days. gabapentin (NEURONTIN) 400 mg capsule Take 1 capsule by mouth daily at bedtime for 90 days. Risedronate 150 mg tablet Take 150 mg by mouth once every month. In AM with cup of water on empty stomach. Nothing else by mouth and stay upright for 30 min. montelukast (SINGULAIR) 10 mg tablet once daily. folic acid 1 mg tablet once daily. No current facility-administered medications for this visit. ALLERGIES Allergen Reactions Gluten Shortness of Breath Peanuts Shortness of Breath Yeast, Dried Shortness of Breath Temp 98.2 Ht 5' 10 (1.78m) Wt 221 lb (100.2kg) BMI 31.71 kg/(m2). Review of systems: Musculoskeletal: (+) left leg pain, (+) back pain, (-) right leg radicular pain Neurological: (+) foot weakness Psychiatric: (+) claustrophobia, (+) nightmares EXAM: - Musculoskeletal: - Left Foot: Weakness noted with dorsiflexion. - Neurological: Foot drop present. Imaging: - MRI Lumbar Spine: - L4-L5: Severe spinal canal stenosis due to anterolisthesis and ligamentum flavum thickening - L5-S1: Severe bilateral foraminal stenosis due to endplate spurring and facet arthropathy - Arthritis of the sacroiliac joints - Lumbar Spine X-ray: - Spondylolisthesis - Arthritic changes Procedures ASSESSMENT: (M48.062) Spinal stenosis, lumbar region with neurogenic claudication (M43.16) Spondylolisthesis, lumbar region PLAN: 1. Spinal stenosis, lumbar region with neurogenic claudication (M48.062) 2. Spondylolisthesis, lumbar region (M43.16) - MRI reveals severe spinal canal stenosis at L4-L5 due to anterolisthesis and ligamentum flavum thickening, as well as severe bilateral foraminal stenosis at L5-S1 due to endplate spurring and facet arthropathy. Also noted are arthritic changes in the SI joints. - Symptoms include chronic left leg and back pain, exacerbated by standing for more than 10 minutes, requiring the use of a walker or cane. No radicular pain in the right leg. - Notable weakness in dorsiflexion, consistent with nerve compression. - Discussed the potential for permanent nerve damage if compression persists; surgical intervention may be necessary to decompress the affected nerves. - Referred to spine surgery for further evaluation and management. Recommended surgeon (more content not included)...[facility]07-07-[facility]25 History of Present illness Narrative* Shaan Mayorga, DO - 02/16/2025 9:44 AM EDT Job Bonilla is a 75-year-old male presenting for follow-up on MRI results and evaluation of chronic left leg and back pain. Chronic Left Leg and Back Pain: - Pain x6 months, exacerbated by standing >10 minutes. - Utilizes a walker or cane for ambulation. - Recent injection provided no relief. - No pain radiating down the right leg. - Reports weakness with dorsiflexion. - MRI results reviewed; EMG scheduled for the . PAST MEDICAL HISTORY Diagnosis Date Asthma (HCC) Left foot pain Prostate cancer (HCC) Rheumatoid arthritis Right foot pain PAST SURGICAL HISTORY Procedure Laterality Date ARTHRP KNE CONDYLE&PLATU MEDIAL&LAT COMPARTMENTS Left 08/13/2004 ARTHRP KNE CONDYLE&PLATU MEDIAL&LAT COMPARTMENTS Right 08/13/2014 CARPAL TUNNEL 82,83 x2 each wrist COLONOSCOPY 08/13/2009 FOOT SURGERY HX Right 07/2020 FOOT SURGERY HX Right 11/29/2020 FOOT SURGERY HX Left 08/18/2024 INGUINAL HERNIA REPAIR HX Right 09/13/2014 LX REPAIR RECURRENT VENTRAL HERNIA 11/08/2015 Laparoscopic repair of recurrent ventral hernia PAST SURGICAL HISTORY OF 01/11/1993 kidney stone removal PAST SURGICAL HISTORY OF 08/13/1997 cardiac catherization PAST SURGICAL HISTORY OF Left 08/13/2005 knee revision PAST SURGICAL HISTORY OF 11/24/2022 Kidney stone removal REMOVAL OF PROSTATE 02/10/2013 SHOULDER SURGERY HX Right 08/21/2023 TONSILLECTOMY HX 08/13/1977 Social History Tobacco Use Smoking status: Never Passive exposure: Never Smokeless tobacco: Never Vaping Use Vaping status: Never Used Substance Use Topics Alcohol use: No Drug use: No Current Outpatient Medications Medication Sig ACTEMRA ACTPEN 162 mg/0.9 mL 1 injection Subcutaneous weekly for 28 days DULoxetine (CYMBALTA) 30 mg capsule Take 30 mg by mouth once daily. hydrOXYchloroQUINE (PLAQUENIL) 200 mg tablet linezolid (ZYVOX) 600 mg tablet budesonide/formoterol fumarate (SYMBICORT INHALATION) Inhale as instructed. tiotropium bromide (SPIRIVA RESPIMAT INHALATION) Inhale as instructed. leflunomide (ARAVA) 20 mg tablet Take 20 mg by mouth once daily. Multivitamin capsule Take 1 capsule by mouth once daily. mometasone (NASONEX) 50 mcg/actuation nasal spray Use 2 Sprays in the nose once daily. gabapentin (NEURONTIN) 600 mg tablet Take 1 tablet by mouth once daily for 90 days. gabapentin (NEURONTIN) 300 mg capsule Take 1 capsule by mouth two times a day for 30 days. gabapentin (NEURONTIN) 300 mg capsule Take 2 capsules by mouth daily at bedtime for 90 days. gabapentin (NEURONTIN) 400 mg capsule Take 1 capsule by mouth daily at bedtime for 90 days. Risedronate 150 mg tablet Take 150 mg by mouth once every month. In AM with cup of water on empty stomach. Nothing else by mouth and stay upright for 30 min. montelukast (SINGULAIR) 10 mg tablet once daily. folic acid 1 mg tablet once daily. No current facility-administered medications for this visit. ALLERGIES Allergen Reactions Gluten Shortness of Breath Peanuts Shortness of Breath Yeast, Dried Shortness of Breath Temp 98.2 Ht 5' 10 (1.78m) Wt 221 lb (100.2kg) BMI 31.71 kg/(m^2). Review of systems: Musculoskeletal: (+) left leg pain, (+) back pain, (-) right leg radicular pain Neurological: (+) foot weakness Psychiatric: (+) claustrophobia, (+) nightmares EXAM: - Musculoskeletal: - Left Foot: Weakness noted with dorsiflexion. - Neurological: Foot drop present. Imaging: - MRI Lumbar Spine: - L4-L5: Severe spinal canal stenosis due to anterolisthesis and ligamentum flavum thickening - L5-S1: Severe bilateral foraminal stenosis due to endplate spurring and facet arthropathy - Arthritis of the sacroiliac joints - Lumbar Spine X-ray: - Spondylolisthesis - Arthritic changes Procedures ASSESSMENT: (M48.062) Spinal stenosis, lumbar region with neurogenic claudication (M43.16) Spondylolisthesis, lumbar region PLAN: 1. Spinal stenosis, lumbar region with neurogenic claudication (M48.062) 2. Spondylolisthesis, lumbar region (M43.16) - MRI reveals severe spinal canal stenosis at L4-L5 due to anterolisthesis and ligamentum flavum thickening, as well as severe bilateral foraminal stenosis at L5-S1 due to endplate spurring and facetarthropathy. Also noted are arthritic changes in the SI joints. - Symptoms include chronic left leg and back pain, exacerbated by standing for more than 10 minutes, requiring the use of a walker or cane. No radicular pain in the right leg. - Notable weakness in dorsiflexion, consistent with nerve compression. - Discussed the potential for permanent nerve damage if compression persists; surgical interventionmay be necessary to decompress the affected nerves. - Referred to spine surgery for further evaluation and management. Recommended surgeons include , Dr. Brink, and Dr. Whitten. - EMG scheduled for the to assess nerve function; results will be reviewed by the spine surgeon. - Advised that surgical intervention aims to relieve nerve compression and prevent further neurological deficits, not to eliminate low back pain. - Provided a copy of the MRI report for patient records. INSTRUCTIONS: - For future MRIs, ask your provider for a mild sedative (for example, Valium) ahead of time to help with claustrophobia. - Keep your EMG appointment on the to evaluate nerve and muscle function in your legs; you cancancel it later if the surgeon advises. - Schedule a consultation with one of our spine surgeons (Dr. Cleveland, Dr. Brink, or Dr. Pate)as soon as possible to review your MRI findings and discuss whether surgery or other interventions are needed to relieve nerve compression. - Plan to see the surgeon at [facility] [place] [address], [facility] [place]. - After the surgeon s assessment, you may need to follow up with Pain Management depending on theirrecommendations. - You received a copy of your MRI report today; bring it to all future appointments. [employer] dictation sean used in creation of this note with possible errors. Shaan Mayorga DO * Jean Hardy Tech - 02/16/2025 9:26 AM EDT REVIEW OF SYSTEMS: GENERAL: Well developed, well nourished. No acute distress PAIN: Negative for pain, history of chronic pain or current treatment for chronic pain conditions CARDIOVASCULAR: Negative for chest pain, leg swelling and palpations. MSK: Negative for joint swelling SKIN: Negative for lesions, rash, itching, metal sensitivity NEURO: Numbness/tingling of extremties ENDOCRINE: Negative for diabetic associated symptoms HEMATOLOGY: Negative for excessive bleeding, clots, bleeding disorders. documented in this [facility] NoteHNO ID: [id number] Author: JEAN HARDY Tech Service: ? Author Type: Policy Issue Clerk Type: Progress Notes Filed: 02/16/2025 10:04 Note Text: REVIEW OF SYSTEMS: GENERAL: Well developed, well nourished. No acute distress PAIN: Negative for pain, history of chronic pain or current treatment for chronic pain conditions CARDIOVASCULAR: Negative for chest pain, leg swelling and palpations. MSK: Negative for joint swelling SKIN: Negative for lesions, rash, itching, metal sensitivity NEURO: Numbness/tingling of extremties ENDOCRINE: Negative for diabetic associated symptoms HEMATOLOGY: Negative for excessive bleeding, clots, bleeding disorders.[facility]07[facility] History of Present illness Narrative* Mckinley Guzman DPM - 02/12/2025 2:15 PM EDT Images from the original note were not included. HPI: This 74 year old male presents for concerns of LLE ankle pain. Patient states they are doing the same as they were doing at the previous visit. Rates pain 8/10 today. Admits to having continuousaching, sharp, shooting pain. Since his last visit, he has obtained a CT of his left ankle and would like to hear more about the results. Additionally, states that the sore on his 2nd toe seems to beimproving since he last saw us though he does admit to some clear drainage. Pain is somewhat controlled with Gabapentin. Has been weightbearing as tolerated to the left lower extremity in a shoe withuse of AFO brace. Recently started Actemra with rheum about a couple of months ago. He did see Dr. Mayorga for his back and got an MRI completed and will be following up with him to discuss results next week. Denies any current nausea, vomiting, fever, chills, shortness of breath, chest pain or calf pain. Denies any other pedal complaints PAST MEDICAL HISTORY Diagnosis Date Asthma (HCC) Left foot pain Prostate cancer (HCC) Rheumatoid arthritis Right foot pain Current Outpatient Medications Medication Sig gabapentin (NEURONTIN) 600 mg tablet Take 1 tablet by mouth once daily for 90 days. gabapentin (NEURONTIN) 300 mg capsule Take 1 capsule by mouth two times a day for 30 days. ACTEMRA ACTPEN 162 mg/0.9 mL 1 injection Subcutaneous weekly for 28 days gabapentin (NEURONTIN) 300 mg capsule Take 2 capsules by mouth daily at bedtime for 90 days. gabapentin (NEURONTIN) 400 mg capsule Take 1 capsule by mouth daily at bedtime for 90 days. DULoxetine (CYMBALTA) 30 mg capsule Take 30 mg by mouth once daily. hydrOXYchloroQUINE (PLAQUENIL) 200 mg tablet linezolid (ZYVOX) 600 mg tablet budesonide/formoterol fumarate (SYMBICORT INHALATION) Inhale as instructed. tiotropium bromide (SPIRIVA RESPIMAT INHALATION) Inhale as instructed. leflunomide (ARAVA) 20 mg tablet Take 20 mg by mouth once daily. Risedronate 150 mg tablet Take 150 mg by mouth once every month. In AM with cup of water on empty stomach. Nothing else by mouth and stay upright for 30 min. montelukast (SINGULAIR) 10 mg tablet once daily. folic acid 1 mg tablet once daily. Multivitamin capsule Take 1 capsule by mouth once daily. mometasone (NASONEX) 50 mcg/actuation nasal spray Use 2 Sprays in the nose once daily. No current facility-administered medications for this visit. ALLERGIES Allergen Reactions Gluten Shortness of Breath Peanuts Shortness of Breath Yeast, Dried Shortness of Breath Objective: Patient presents weightbearing as tolerated to BLE Left foot: Incision site is well coapted without evidence of dehiscence. No erythema or edema surrounding surgical site. No lymphadenopathy. No lymphangitis. No surrounding cellulitis. No signs of infection. Patient has no pain to palpation of calf. The calf is soft, supple and nontender without tk dence of DVT. Negative Sita's test. Satisfactory alignment is noted. Pedal pulses are palpable. Capillary refill time is less than three seconds to all digits. Sensations are intact to light touch. General foot morphology: decreased medial longitudinal arch with plantar prominence at midfoot. 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 +4/5 muscle strength Dorsiflexion, Plantarflexion, Inversion, Eversion, no DF strength to LLE, limited PF strength. No palpable dell noted to achilles tendon. No evidence of ulcerations noted. Non palpable AT tendon concerning for chronic rupture. Foot drop noted of LLE. No tenderness to palpation of left achilles tendon at mid substance level. No palpable dells. Negative ignacio test. Tenderness to palpation of left forefoot and midfoot improved since last exam. ROM of the 1st MTPJ is decreased without pain or crepitus. ROM of the MTJ/STJ is decreased without pain or crepitus. Ankle joint ROM is decreased with pain on palpation noted to the left> right. No erythema or edema about the plantar midfoot right. Results MRI ANKLE WO IVCON LEFT (Acc#[id number]) (Order [id number]) Impression IMPRESSION: 1. Hindfoot/midfoot degenerative changes. 2. Low-grade Achilles tendinosis. 3. Plantar fasciitis with low-grade interstitial tear and calcaneal spur. 4. Short segment thickening/tendinosis anterior tibialis tendon. 5. Diffuse soft tissue edema about the ankle and dorsal foot. URIC ACID Order: [id number] Status: Final result Dx: Acute left ankle pain Test Result Released: Yes (not seen) 0 Result Notes Component Ref Range & Units 1 mo ago Uric Acid 4.0 - 8.1 mg/dL 4.3 Resulting Agency [facility] ntains abnormal data COMPLETE BLOOD COUNT Order: [id number] Status: Final result Dx: Acute left ankle pain Test Result Released: Yes (seen) 0 Result Notes Component Ref Range & Units 1 mo ago WBC 3.70 - 11.00 k/uL 5.60 RBC 4.20 - 6.00 m/uL 4.66 Hemoglobin 13.0 - 17.0 g/dL 15.1 Hematocrit 39.0 - 51.0 % 44.8 MCV 80.0 - 100.0 fL 96.1 MCH 26.0 - 34.0 pg 32.4 MCHC 30.5 - 36.0 g/dL 33.7 RDW-CV 11.5 - 15.0 % 13.3 Platelet Count 150 - 400 k/uL 222 MPV 9.0 - 12.7 fL 8.9 Low Absolute nRBC <0.01 k/uL <0.01 Resulting Agency [facility] 3 views AP, MO, Lat left ankle were taken and evaluated previously Radiographic evaluation: No obvious fracture or dislocation is noted. No acute osseous changes. No osteolytic or osteoblastic lesions appreciated. No soft tissue gas. No discernible mass noted. Jointspaces are well maintained. Bone density appear typical for age of patient. CT LEFT ANKLE 01/21/25: IMPRESSION: 1. No acute bony abnormality. 2. 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 3. Mild talonavicular joint arthrosis. 4. Mild Achilles tendinosis. Assessment: Chronic L ankle pain, healed second digit ulcer. Plan: The patient was educated on clinical examination findings, postoperative prognosis and protocol. All questions were answered to patient's apparent satisfaction. - Advised ulcer is fully healed patient can discontinue wound care - Patient to continue weightbearing as tolerated in [place] boot or AFO as needed - Patient to continue spinal workup with Dr. Mayorga - [facility] 4 weeks Keli Wong DPM PGY-3 I personally saw and evaluated the patient. I reviewed the resident's note. I agree with the resident's assessment and plan unless otherwise noted. Mckinley Guzman DPM, FACFAS * Natasha Beal LPN - 02/12/2025 2:06 PM EDT REVIEW OF SYSTEMS: GENERAL: Well developed, well nourished. No acute distress PAIN: Pain Left ankle CARDIOVASCULAR: Negative for chest pain, leg swelling and palpations. MSK: Positive for joint swelling SKIN: Negative for lesions, rash, itching, metal sensitivity NEURO: Numbness/tingling of extremties ENDOCRINE: Negative for diabetic associated symptoms HEMATOLOGY: Negative for excessive bleeding, clots, bleeding disorders. documented in this encounterSt. [facility] NoteHNO ID: [id number] Author: MCKINLEY GUZMAN DPM Service: ? Author Type: Physician Type: Progress Notes Filed: 02/12/2025 16:52 Note Text: HPI: This 74 year old male presents for concerns of LLE ankle pain. Patient states they are doing the same as they were doing at the previous visit. Rates pain 8/10 today. Admits to having continuous aching, sharp, shooting pain. Since his last visit, he has obtained a CT of his left ankle and would like to hear more about the results. Additionally, states that the sore on his 2nd toe seems to be improving since he last saw us though he does admit to some clear drainage. Pain is somewhat controlled with Gabapentin. Has been weightbearing as tolerated to the left lower extremity in a shoe with use of AFO brace. Recently started Actemra with rheum about a couple of months ago. He did see Dr. Mayorga for his back and got an MRI completed and will be following up with him to discuss results next week. Denies any current nausea, vomiting, fever, chills, shortness of breath, chest pain or calf pain. Denies any other pedal complaints PAST MEDICAL HISTORY Diagnosis Date Asthma (HCC) Left foot pain Prostate cancer (HCC) Rheumatoid arthritis Right foot pain Current Outpatient Medications Medication Sig gabapentin (NEURONTIN) 600 mg tablet Take 1 tablet by mouth once daily for 90 days. gabapentin (NEURONTIN) 300 mg capsule Take 1 capsule by mouth two times a day for 30 days. ACTEMRA ACTPEN 162 mg/0.9 mL 1 injection Subcutaneous weekly for 28 days gabapentin (NEURONTIN) 300 mg capsule Take 2 capsules by mouth daily at bedtime for 90 days. gabapentin (NEURONTIN) 400 mg capsule Take 1 capsule by mouth daily at bedtime for 90 days. DULoxetine (CYMBALTA) 30 mg capsule Take 30 mg by mouth once daily. hydrOXYchloroQUINE (PLAQUENIL) 200 mg tablet linezolid (ZYVOX) 600 mg tablet budesonide/formoterol fumarate (SYMBICORT INHALATION) Inhale as instructed. tiotropium bromide (SPIRIVA RESPIMAT INHALATION) Inhale as instructed. leflunomide (ARAVA) 20 mg tablet Take 20 mg by mouth once daily. Risedronate 150 mg tablet Take 150 mg by mouth once every month. In AM with cup of water on empty stomach. Nothing else by mouth and stay upright for 30 min. montelukast (SINGULAIR) 10 mg tablet once daily. folic acid 1 mg tablet once daily. Multivitamin capsule Take 1 capsule by mouth once daily. mometasone (NASONEX) 50 mcg/actuation nasal spray Use 2 Sprays in the nose once daily. No current facility-administered medications for this visit. ALLERGIES Allergen Reactions Gluten Shortness of Breath Peanuts Shortness of Breath Yeast, Dried Shortness of Breath Objective: Patient presents weightbearing as tolerated to BLE Left foot: Incision site is well coapted without evidence of dehiscence. No erythema or edema surrounding surgical site. No lymphadenopathy. No lymphangitis. No surrounding cellulitis. No signs of infection. Patient has no pain to palpation of calf. The calf is soft, supple and nontender without evidence of DVT. Negative Sita's test. Satisfactory alignment is noted. Pedal pulses are palpable. Capillary refill time is less than three seconds to all digits. Sensations are intact to light touch. General foot morphology: decreased medial longitudinal arch with plantar prominence at midfoot. 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 +4/5 muscle strength Dorsiflexion, Plantarflexion, Inversion, Eversion, no DF strength to LLE, limited PF strength. No palpable dell noted to achilles tendon. No evidence of ulcerations noted. Non palpable AT tendon concerning for chronic rupture. Foot drop noted of LLE. No tenderness to palpation of left achilles tendon at mid substance level. No palpable dells. Negative ignacio test. Tenderness to palpation of left forefoot and midfoot improved since last exam. ROM of the 1st MTPJ is decreased without pain or crepitus. ROM of the MTJ/STJ is decreased without pain or crepitus. Ankle joint ROM is decreased with pain on palpation noted to the left > right. No erythema or edema about the plantar midfoot right. Results MRI ANKLE WO IVCON LEFT (Acc#[id number]) (Order [id number]) Impression IMPRESSION: 1. Hindfoot/midfoot degenerative changes. 2. Low-grade Achilles tendinosis. 3. Plantar fasciitis with low-grade interstitial tear and calcaneal spur. 4. Short segment thickening/tendinosis anterior tibialis tendon. 5. Diffuse soft tissue edema about the ankle and dorsal foot. URIC ACID Order: [id number] Status: Final result Dx: Acute left ankle pain Test Result Released: Yes (not seen) 0 Result Notes Component Ref Range AND Units 1 mo ago Uric Acid 4.0 - 8.1 mg/dL 4.3 Resulting Agency [facility] ntains abnormal data COMPLETE BLOOD COUNT Order: [id number] Status: Final result Dx: Acute left ankle pain Test Result Released: Yes (seen) 0 Result Notes (more content not included)...[facility] 02-12-2025 NoteHNO ID: [id number] Author: NATASHA BEAL LPN Service: ? Author Type: LICENSED NURSE Type: Progress Notes Filed: 02/12/2025 16:52 Note Text: REVIEW OF SYSTEMS: GENERAL: Well developed, well nourished. No acute distress PAIN: Pain Left ankle CARDIOVASCULAR: Negative for chest pain, leg swelling and palpations. MSK: Positive for joint swelling SKIN: Negative for lesions, rash, itching, metal sensitivity NEURO: Numbness/tingling of extremties ENDOCRINE: Negative for diabetic associated symptoms HEMATOLOGY: Negative for excessive bleeding, clots, bleeding disorders.[facility]07-01-2025 Evaluation note* Diagnosis Onset Date Resolution Status Admit Date History of colon polyps acute J marcus 2024 12:40pm [facility] Work Phone: 1(158) 796-824007-01-2025 Progress [facility] [address] [place], [place] [id number] OFFICE VISIT Date of Service: 02/10/25 MR#: [id number] Acct: [id number] Name: SHIVANI BONILLA Rep #: [id number] : 1950 Provider: Dr. Abbie Eugene MD Age/Sex: 75/M Location: [facility] Status: Signed Intake Vital Signs 11/09/24 15:52 07/01/25 12:59 Height 5 ft 10 in 5 ft 10 in Weight: 231 lb 2 oz BMI 33.1 BP 129/79 H Blood Pressure Location Rt brachial Position Sitting Respiration 18 Pulse 71 Pulse Source Monitor Temp 97.2 F L Temp Source Temporal Pulse Oximetry (%) 95 Oxygen Delivery Method room air Intake Visit Reasons: RECALL COLONOSCOPY Chief Complaint: Colonoscopy Police Commissioner Required: No Accompanied by: Is patient in pain?: No Allergies doxycycline Adverse Reaction (Intermediate, Verified 02/10/25 13:01) Hives Environmental Allergies: Uncoded Adverse Reaction (Intermediate, Verified 02/10/25 13:01) Other Medications ?Medication ?Instructions ?Recorded ?Confirmed ?Type risedronate 150 mg tablet 150 mg PO QMONTH BONES 11/2502/10/25 History hydroxychloroquine 200 mg tablet 200 mg PO DAILY arthr itis 01/05/21 02/10/25 History (Plaquenil) albuterol sulfate 90 mcg/actuation 2 inh inhalation Q6 H PRN ASTHMA #3 10/05/21 02/10/25 Rx aerosol inhaler ea azelastine 137 mcg (0.1 %) nasal 2 spray intranasal BI D breathing 12/26/21 02/10/25 History spray cholecalciferol (vitamin D3) 50 50 mcg PO DAILY supple ment 12/27/21 02/10/25 History mcg (2,000 unit) capsule leflunomide 20 mg tablet 20 mg PO DAILY arthritis 12/0202/10/25 History multivitamin (Multiple Vitamins 1 tab PO DAILY supplem ent 05/16/22 02/10/25 History tablet) gabapentin 100 mg capsule 400 mg PO QHS pain 09/18/22 02/10/25 History flurbiprofen 100 mg tablet 100 mg PO DAILY PRN pain #9 0 tabs 12/19/22 02/10/25 Rx famotidine 20 mg tablet 20 mg PO QDAY 04/02/2402/10 History budesonide-formoterol HFA 160 2 inh inhalation BID abdiel athing #3 04/08/24 02/10/25 Rx mcg-4.5 mcg/actuation aerosol ea inhaler (Symbicort) prednisone 10 mg tablet 10 mg PO QDAY #30 tabs 07/1602/10/25 Rx fluticasone propionate 50 2 spray intranasal DAILY #3 ea 09/09/24 02/10/25 Rx mcg/actuation nasal spray,suspension tiotropium bromide 1.25 2 inh inhalation DAILY ABDIELGRANT HUFFNG 09/26/24 02/10/25 Rx mcg/actuation mist for inhalation #3 device (Spiriva Respimat) montelukast 10 mg tablet 10 mg PO QPM sinuses #90 tab s 10/02/24 02/10/25 Rx tocilizumab 162 mg/0.9 mL mg subcut QWEEK 02/10/2509/06 History subcutaneous pen injector (Actemra ACTPen) Have you fallen in the past year?: No PFSH Medical History (Updated 02/10/25 @ 13:[address] Esteban Eugene MD) Polyneuropathy Cancer Fatigue Skin cancer Glaucoma Carpal tunnel syndrome Cataracts, bilateral Wears glasses Cancer History of steroid therapy Arthritis Kidney stones Gastric reflux Non-smoker CPAP (continuous positive airway pressure) dependence Sleep apnea Shortness of breath on exertion History of echocardiogram History of stress test Cardiology follow-up encounter Neuropathy KEZIA treated with BiPAP Moderate persistent allergic asthma without complication Asbestos exposure GERD (gastroesophageal reflux disease) BPH (benign prostatic hyperplasia) Osteopenia Osteoarthritis DDD (degenerative disc disease), cervical Gastric ulcer Obesity Rheumatoid arthritis Kidney stones Prostate cancer Surgical History (Updated 02/10/25 @ 13:06 by Samantha Singh) History of shoulder replacement History of cardiac catheterization Hx of colonoscopy Hx of foot surgery History of removal of retained hardware History of tonsillectomy History of rhinoplasty History of total knee arthroplasty H/O prostatectomy History of inguinal hernia repair History of carpal tunnel release History of left heart catheterization (07/23/18) Family History Mother Heart disease CHF atrial fib Sister Hypertension Social History household members: spouse Smoking Status: Never smoker second hand exposure: No alcohol intake: never substance use type: does not use what type of physical activity do you participate in: none drea/mosque: [employer] seatbelt use: always HPI HPI HPI: Patient is a 75-year-old male here to discuss follow-up colonoscopy 5 years after his last colonoscopy. He had polyps removed and was recommended for repeat in 5 years. He does report that he had an episode of bright red blood recently but it was only 1 episode and it was painless. ROS General General: Yes fatigue; No weight change, appetite, colon cancer, breast cancer or weakness HEENT HEENT: No difficulty swallowing, eye injury, eye surgery, swollen glands or hoarseness Endo Endocrine: No thyroid disease, diabetes mellitus, thyroid cancer, Hair loss, heat intolerance or cold intolerance Skin Skin: Yes rash; No changing moles Breast Breast: No left breast lump, right breast lump, nipple discharge, breast pain, abnormal mammogram, abnormal US or breast enlargement Musc Musculoskeletal: Yes back problems, arthritis and rheumatoid arthritis; No gout or joint pain Cardio Cardiovascular: No murmur, pacemaker, heart disease, atrial fibrillation, high blood pressure, heart attack, heart stent, palpitations, shortness of breath with exertion or chest pain Psych Psychiatric: No depression, anxiety or hearing voices Resp Respiratory: Yes shortness of breath, Yes sleep apnea, No cough, No COPD, Yes asthma, No emphysema and No wheezing Gastro Gastrointestinal: No abdominal pain, No nausea or vomiting, No diarrhea, No constipation, Yes bloodin stool, Yes acid reflux, No hemorrhoids, No ulcers, Nogallbladder problem and No black,tarry stools Mark Hematologic: No blood thinners, No blood disorders, No bleeding, No anemia and No blood clots Neuro Neurologic: No system reviewed and no additional complaints, except as documented, No as per HPI, No abnormal gait, No abnormal hearing, No abnormal movements, No abnormal speech, No behavioral changes, No burning sensations, No confusion, No convulsions, No disequilibrium, No dizziness, No localized weakness, No frequent falls, No headache(s), No lack of coordination, No loss ofvision, No memoryloss, Yes numbness, No other visual disturbances, No radicularpain, No restless legs, No sensory deficit, No syncope, Yes tingling, No tremor(s), No weakness and No other Exam Const General: cooperative Orientation: alert and oriented x3 HENMT Head: normal to inspection Neck Neck: normal visual inspection and full ROM Chest Chest palpation & inspection: normal inspection of the chest Resp Effort & Inspection: normal respiratory effort Auscultation: clear to auscultation bilaterally Cardio Rate: regular rate Rhythm: regular rhythm GI Inspection: non-distended Palpation: soft and nontender Skin General: no rashes or lesions noted Neuro General: patient alert and patient oriented x3 Extrem General: full ROM Psych Appearance: grossly normal Mental Status: mental status grossly normal Assessment and Plan Assessment and Plan (1) History of colon polyps: Status: Acute Plan: Patient has a history of colon polyps and he recently had some blood in his stool. I recommended repeat surveillance colonoscopy. I explained endoscopy indetail to the patient. I explained the risks including but not limited to stroke or heart attack with anesthesia, perforation of the GI tract, bleeding, infection. I explained that any of these could necessitate further emergency surgery. The patient understands and all questions were answered sufficiently. The patient wishes to proceed with procedure. Esteban Eugene MD Pager: [facility] [address] [place] [address] [address] [place] [address] Office: Orders: Orders Colonoscopy Today Coding Level of Care Code Off vis,new,level 3 Diagnoses History of colon polyps Z86.0100 Clinical Quality Measures Falls Risk Screening/Assistive Devices Have you fallen in the past year?: No 02/10/25 1323 elysia GUTIERRES> Date _ Esteban Eugene MD Cosigner Signature: Date (if applicable) CC: ~ [facility]07-01-2025 Progress note Author Esteban Eugene [facility] Note Date/Time February 10, 2025 1:23p [address] [place] [address] OFFICE VISIT Date of Service: 02/10/25 MR#: [id number] Acct: [id number] Name: SHIVANI BONILLA Rep #: [id number] : 1950 Provider: Dr. Abbie Eugene MD Age/Sex: 75/M Location: [facility] Status: Signed Intake Vital Signs 11/09/24 15:52 02/10/25 12:59 Height 5 ft 10 in 5 ft 10 in Weight: 231 lb 2 oz BMI 33.1 BP 129/79 H Blood Pressure Location Rt brachial Position Sitting Respiration 18 Pulse 71 Pulse Source Monitor Temp 97.2 F L Temp Source Temporal Pulse Oximetry (%) 95 Oxygen Delivery Method room air Intake Visit Reasons: RECALL COLONOSCOPY Chief Complaint: Colonoscopy Police Commissioner Required: No Accompanied by: Is patient in pain?: No Allergies doxycycline Adverse Reaction (Intermediate, Verified 02/10/25 13:01) Hives Environmental Allergies: Uncoded Adverse Reaction (Intermediate, Verified 02/10/25 13:01) Other Medications ?Medication ?Instructions ?Recorded ?Confirmed ?Type risedronate 150 mg tablet 150 mg PO QMONTH BONES 11/2502/10/25 History hydroxychloroquine 200 mg tablet 200 mg PO DAILY arthr itis 01/05/21 02/10/25 History (Plaquenil) albuterol sulfate 90 mcg/actuation 2 inh inhalation Q6 H PRN ASTHMA #3 10/05/21 02/10/25 Rx aerosol inhaler ea azelastine 137 mcg (0.1 %) nasal 2 spray intranasal BI D breathing 12/26/21 02/10/25 History spray cholecalciferol (vitamin D3) 50 50 mcg PO DAILY supple ment 12/27/21 02/10/25 History mcg (2,000 unit) capsule leflunomide 20 mg tablet 20 mg PO DAILY arthritis 12/0202/10/25 History multivitamin (Multiple Vitamins 1 tab PO DAILY supplem ent 05/16/22 02/10/25 History tablet) gabapentin 100 mg capsule 400 mg PO QHS pain 09/18/22 02/10/25 History flurbiprofen 100 mg tablet 100 mg PO DAILY PRN pain #9 0 tabs 12/19/22 02/10/25 Rx famotidine 20 mg tablet 20 mg PO QDAY 04/02/2402/10 History budesonide-formoterol HFA 160 2 inh inhalation BID abdiel athing #3 08/27/24 07/01/25 Rx mcg-4.5 mcg/actuation aerosol ea inhaler (Symbicort) prednisone 10 mg tablet 10 mg PO QDAY #30 tabs 07/1602/10/25 Rx fluticasone propionate 50 2 spray intranasal DAILY #3 ea 09/09/24 02/10/25 Rx mcg/actuation nasal spray,suspension tiotropium bromide 1.25 2 inh inhalation DAILY BREAT NICKI 09/26/24 02/10/25 Rx mcg/actuation mist for inhalation #3 device (Spiriva Respimat) montelukast 10 mg tablet 10 mg PO QPM sinuses #90 tab s 10/02/24 02/10/25 Rx tocilizumab 162 mg/0.9 mL mg subcut QWEEK 02/10/2509/06 History subcutaneous pen injector (Actemra ACTPen) Have you fallen in the past year?: No PFSH Medical History (Updated 02/10/25 @ 13:[address] Esteban Eugene MD) Polyneuropathy Cancer Fatigue Skin cancer Glaucoma Carpal tunnel syndrome Cataracts, bilateral Wears glasses Cancer History of steroid therapy Arthritis Kidney stones Gastric reflux Non-smoker CPAP (continuous positive airway pressure) dependence Sleep apnea Shortness of breath on exertion History of echocardiogram History of stress test Cardiology follow-up encounter Neuropathy KEZIA treated with BiPAP Moderate persistent allergic asthma without complication Asbestos exposure GERD (gastroesophageal reflux disease) BPH (benign prostatic hyperplasia) Osteopenia Osteoarthritis DDD (degenerative disc disease), cervical Gastric ulcer Obesity Rheumatoid arthritis Kidney stones Prostate cancer Surgical History (Updated 02/10/25 @ 13:06 by Samantha Singh) History of shoulder replacement History of cardiac catheterization Hx of colonoscopy Hx of foot surgery History of removal of retained hardware History of tonsillectomy History of rhinoplasty History of total knee arthroplasty H/O prostatectomy History of inguinal hernia repair History of carpal tunnel release History of left heart catheterization (07/23/18) Family History Mother Heart disease CHF atrial fib Sister Hypertension Social History household members: spouse Smoking Status: Never smoker second hand exposure: No alcohol intake: never substance use type: does not use what type of physical activity do you participate in: none drea/mosque: [employer] seatbelt use: always HPI HPI HPI: Patient is a 75-year-old male here to discuss follow-up colonoscopy 5 years after his last colonoscopy. He had polyps removed and was recommended for repeat in 5 years. He does report that he had an episode of bright red blood recently but it was only 1 episode and it was painless. ROS General General: Yes fatigue; No weight change, appetite, colon cancer, breast cancer or weakness HEENT HEENT: No difficulty swallowing, eye injury, eye surgery, swollen glands or hoarseness Endo Endocrine: No thyroid disease, diabetes mellitus, thyroid cancer, Hair loss, heat intolerance or cold intolerance Skin Skin: Yes rash; No changing moles Breast Breast: No left breast lump, right breast lump, nipple discharge, breast pain, abnormal mammogram, abnormal US or breast enlargement Musc Musculoskeletal: Yes back problems, arthritis and rheumatoid arthritis; No gout or joint pain Cardio Cardiovascular: No murmur, pacemaker, heart disease, atrial fibrillation, high blood pressure, heart attack, heart stent, palpitations, shortness of breath with exertion or chest pain Psych Psychiatric: No depression, anxiety or hearing voices Resp Respiratory: Yes shortness of breath, Yes sleep apnea, No cough, No COPD, Yes asthma, No emphysema and No wheezing Gastro Gastrointestinal: No abdominal pain, No nausea or vomiting, No diarrhea, No constipation, Yes blood in stool, Yes acid reflux, No hemorrhoids, No ulcers, Nogallbladder problem and No black,tarry stools Mark Hematologic: No blood thinners, No blood disorders, No bleeding, No anemia and No blood clots Neuro Neurologic: No system reviewed and no additional complaints, except as documented, No as per HPI, No abnormal gait, No abnormal hearing, No abnormal movements, No abnormal speech, No behavioral changes, No burning sensations, No confusion, No convulsions, No disequilibrium, No dizziness, No localized weakness, No frequent falls, No headache(s), No lack of coordination, No loss ofvision, No memory loss, Yes numbness, No other visual disturbances, No radicularpain, No restless legs, No sensory deficit, No syncope, Yes tingling, No tremor(s), No weakness and No other Exam Const General: cooperative Orientation: alert and oriented x3 HENMT Head: normal to inspection Neck Neck: normal visual inspection and full ROM Chest Chest palpation & inspection: normal inspection of the chest Resp Effort & Inspection: normal respiratory effort Auscultation: clear to auscultation bilaterally Cardio Rate: regular rate Rhythm: regular rhythm GI Inspection: non-distended Palpation: soft and nontender Skin General: no rashes or lesions noted Neuro General: patient alert and patient oriented x3 Extrem General: full ROM Psych Appearance: grossly normal Mental Status: mental status grossly normal Assessment and Plan Assessment and Plan (1) History of colon polyps: Status: Acute Plan: Patient has a history of colon polyps and he recently had some blood in his stool. I recommended repeat surveillance colonoscopy. I explained endoscopy indetail to the patient. I explained the risks including but not limited to stroke or heart attack with anesthesia, perforation of the GI tract, bleeding, infection. I explained that any of these could necessitate further emergency surgery. The patient understands and all questions were answered sufficiently. The patient wishes to proceed with procedure. Esteban Eugene MD Pager: [facility] [address] [place] [address], [address] [place] [address] Office: Orders: Orders Colonoscopy Today Coding Level of Care Code Off vis,new,level 3 Diagnoses History of colon polyps Z86.0100 Clinical Quality Measures Falls Risk Screening/Assistive Devices Have you fallen in the past year?: No 02/10/25 1323 <Electronically signed by Esteban naidu MD> Date _ Esteban Eugene MD Cosigner Signature: Date (if applicable) CC: ~ [facility] Work Phone: 1(772) 250-310206-27-2025 History of Present illness Narrative* Bryce Montalvo, RT(R) - 02/06/2025 1:15 PM EDT Radiology Service Progress Note PATIENT NAME: Shivani Bonilla DATE OF SERVICE: February 06, 2025 TIME: 2:08 PM PATIENT IDENTITY VERIFICATION COMPLETED USING TWO (2) IDENTIFIERS: Name and Date of confirmedby patient verbally. FALL SCREENING: Has the patient had 2 falls in the last year or 1 fall with injury or currently using an Ambulatory Assistive Device (Walker, Cane, Wheelchair, Crutches, etc.)? No PATIENT GENDER DATA: Assigned male at PATIENT RELEVANT IMPLANT DATA REVIEWED: Yes PATIENT PRESENTS WITH AN IMPLANTABLE OR ATTACHED CONFERENCE ORGANIZER: No RADIOLOGY DEPARTMENT: MR; Exam(s) Completed: Spine: Lumbar spine. Aromatherapy Administered: No PERIPHERAL IV DATA: Not applicable SIGNED BY: YOKO Deleon)(MR)(CT) February 06, 2025 2:08 PM documented in [facility] NoteHNO ID: [id number] Author: BRYCE MONTALVO RT(R) Service: ? Author Type: Technologist Type: Progress Notes Filed: 02/06/2025 14:08 Note Text: Radiology Service Progress Note PATIENT NAME: Shivani Bonilla DATE OF SERVICE: February 06, 2025 TIME: 2:08 PM PATIENT IDENTITY VERIFICATION COMPLETED USING TWO (2) IDENTIFIERS: Name and Date of confirmed by patient verbally. FALL SCREENING: Has the patient had 2 falls in the last year or 1 fall with injury or currently using an Ambulatory Assistive Device (Walker, Cane, Wheelchair, Crutches, etc.)? No PATIENT GENDER DATA: Assigned male at PATIENT RELEVANT IMPLANT DATA REVIEWED: Yes PATIENT PRESENTS WITH AN IMPLANTABLE OR ATTACHED CONFERENCE ORGANIZER: No RADIOLOGY DEPARTMENT: MR; Exam(s) Completed: Spine: Lumbar spine. Aromatherapy Administered: No PERIPHERAL IV DATA: Not applicable SIGNED BY: YOKO Deleon)(MR)(CT) February 06, 2025 2:08 [facility] Telephone encounter Note* Telephone Encounter - Carlita Turk - 02/05/2025 9:45 AM EDT LVBouchra to schedule EMG Carlita Turk [facility]06-26-2025 Miscellaneous Notes* Telephone Encounter - Carlita Turk - 02/05/2025 9:45 AM EDT LVM to schedule EMG Carlita Turk documented in this encounterSt. [facility]25 NoteHNO ID: [id number] Author: SHAAN MAYORGA, DO Service: ? Author Type: Physician Type: Progress Notes Filed: 02/03/2025 14:05 Note Text: Job oBnilla is a 75-year-old male with a history of neuropathy, presenting for evaluation of left ankle pain and back pain. Left Ankle Pain: - Severe, sharp pain in Job's left ankle, worsening over the past 6 months. - Pain is primarily lateral and radiates up towards the knee with prolonged standing. - Described as unbearable and sharp; worsens with weight-bearing. - Pain disrupts sleep; requires specific positioning to avoid pressure. - Using a Neowalker and post-op shoe for mobility; pain is more tolerable with these aids. - Cortisone injection provided no relief. - MRI of Job's ankle performed on November 13; CT scan this month. - History of foot drop and neuropathy in both feet. - Taking gabapentin for neuropathy pain, with no relief for ankle pain. Back Pain: - Stiffness in Job's lower back in the morning. - Pain in the left buttock. - No history of sciatica or nerve pinching. - History of back injury as a child, with occasional sensation of needing to pop back in. PAST MEDICAL HISTORY Diagnosis Date Asthma (HCC) Left foot pain Prostate cancer (HCC) Rheumatoid arthritis Right foot pain PAST SURGICAL HISTORY Procedure Laterality Date ARTHRP KNE CONDYLEANDPLATU MEDIALANDLAT COMPARTMENTS Left 08/13/2004 ARTHRP KNE CONDYLEANDPLATU MEDIALANDLAT COMPARTMENTS Right 08/13/2014 CARPAL TUNNEL 82,83 x2 each wrist COLONOSCOPY 08/13/2009 FOOT SURGERY HX Right 07/2020 FOOT SURGERY HX Right 11/29/2020 FOOT SURGERY HX Left 08/18/2024 INGUINAL HERNIA REPAIR HX Right 09/13/2014 LX REPAIR RECURRENT VENTRAL HERNIA 11/08/2015 Laparoscopic repair of recurrent ventral hernia PAST SURGICAL HISTORY OF 01/11/1993 kidney stone removal PAST SURGICAL HISTORY OF 08/13/1997 cardiac catherization PAST SURGICAL HISTORY OF Left 08/13/2005 knee revision PAST SURGICAL HISTORY OF 11/24/2022 Kidney stone removal REMOVAL OF PROSTATE 02/10/2013 SHOULDER SURGERY HX Right 08/21/2023 TONSILLECTOMY HX 08/13/1977 Social History Tobacco Use Smoking status: Never Passive exposure: Never Smokeless tobacco: Never Vaping Use Vaping status: Never Used Substance Use Topics Alcohol use: No Drug use: No Current Outpatient Medications Medication Sig gabapentin (NEURONTIN) 600 mg tablet Take 1 tablet by mouth once daily for 90 days. gabapentin (NEURONTIN) 300 mg capsule Take 1 capsule by mouth two times a day for 30 days. ACTEMRA ACTPEN 162 mg/0.9 mL 1 injection Subcutaneous weekly for 28 days gabapentin (NEURONTIN) 300 mg capsule Take 2 capsules by mouth daily at bedtime for 90 days. gabapentin (NEURONTIN) 400 mg capsule Take 1 capsule by mouth daily at bedtime for 90 days. DULoxetine (CYMBALTA) 30 mg capsule Take 30 mg by mouth once daily. hydrOXYchloroQUINE (PLAQUENIL) 200 mg tablet linezolid (ZYVOX) 600 mg tablet budesonide/formoterol fumarate (SYMBICORT INHALATION) Inhale as instructed. tiotropium bromide (SPIRIVA RESPIMAT INHALATION) Inhale as instructed. leflunomide (ARAVA) 20 mg tablet Take 20 mg by mouth once daily. doxycycline hyclate (VIBRAMYCIN) 100 mg capsule Take 100 mg by mouth twice daily. Risedronate 150 mg tablet Take 150 mg by mouth once every month. In AM with cup of water on empty stomach. Nothing else by mouth and stay upright for 30 min. methotrexate sodium 25 mg/mL soln once each week. montelukast (SINGULAIR) 10 mg tablet once daily. folic acid 1 mg tablet once daily. amoxicillin (POLYMOX, AMOXIL) 500 mg capsule once daily. (Patient not taking: Reported on 03/31/2021 ) BD TUBERCULIN SYRINGE 1 mL 25 x 5/8 syrg Multivitamin capsule Take 1 capsule by mouth once daily. GLUCOSAMINE/CHONDROITIN SULF A (GLUCOSAMINE-CHONDROITIN ORAL) Take by mouth. mometasone (NASONEX) 50 mcg/actuation nasal spray Use 2 Sprays in the nose once daily. No current facility-administered medications for this visit. ALLERGIES Allergen Reactions Gluten Shortness of Breath Peanuts Shortness of Breath Yeast, Dried Shortness of Breath Resp 18 Ht 5' 10 (1.78m) Wt 235 lb (106.6kg) BMI 33.72 kg/(m2). Review of systems: Constitutional: (+) sleep disturbance Musculoskeletal: (+) left ankle pain, (+) radiating pain from left ankle to knee, (+) morning low back stiffness, (+) left buttock pain, (-) burning ankle pain Skin: (+) right toe sore Neurological: (+) bilateral foot neuropathic pain, (+) foot drop EXAM: - Musculoskeletal: - Left Ankle: - Lateral ankle pain reported. - Back: - No severe pain elicited with forward flexion. - Neurological: Foot drop present. Imaging: (11/13) MRI of the ankle: No abnormalities identified. CT scan: No abnormalities identified. Lumbar spine X-ray: Spondylolisthesis at L4-L5; degenerative retrolisthesis at L1-L2 and L2-L3. Procedures ASSESSM (more content not included)...[facility]06-24-2025 History of Present illness Narrative* Shaan Mayorga, - 02/03/2025 1:11 PM EDT Job Bonilla is a 75-year-old male with a history of neuropathy, presenting for evaluation of left ankle pain and back pain. Left Ankle Pain: - Severe, sharp pain in Job's left ankle, worsening over the past 6 months. - Pain is primarily lateral and radiates up towards the knee with prolonged standing. - Described as unbearable and sharp; worsens with weight-bearing. - Pain disrupts sleep; requires specific positioning to avoid pressure. - Using a [place] and post-op shoe for mobility; pain is more tolerable with these aids. - Cortisone injection provided no relief. - MRI of Job's ankle performed on November 13; CT scan this month. - History of foot drop and neuropathy in both feet. - Taking gabapentin for neuropathy pain, with no relief for ankle pain. Back Pain: - Stiffness in Job's lower back in the morning. - Pain in the left buttock. - No history of sciatica or nerve pinching. - History of back injury as a child, with occasional sensation of needing to pop back in. PAST MEDICAL HISTORY Diagnosis Date Asthma (HCC) Left foot pain Prostate cancer (HCC) Rheumatoid arthritis Right foot pain PAST SURGICAL HISTORY Procedure Laterality Date ARTHRP KNE CONDYLE&PLATU MEDIAL&LAT COMPARTMENTS Left 08/13/2004 ARTHRP KNE CONDYLE&PLATU MEDIAL&LAT COMPARTMENTS Right 08/13/2014 CARPAL TUNNEL 82,83 x2 each wrist COLONOSCOPY 08/13/2009 FOOT SURGERY HX Right 07/2020 FOOT SURGERY HX Right 11/29/2020 FOOT SURGERY HX Left 08/18/2024 INGUINAL HERNIA REPAIR HX Right 09/13/2014 LX REPAIR RECURRENT VENTRAL HERNIA 11/08/2015 Laparoscopic repair of recurrent ventral hernia PAST SURGICAL HISTORY OF 01/11/1993 kidney stone removal PAST SURGICAL HISTORY OF 08/13/1997 cardiac catherization PAST SURGICAL HISTORY OF Left 08/13/2005 knee revision PAST SURGICAL HISTORY OF 11/24/2022 Kidney stone removal REMOVAL OF PROSTATE 02/10/2013 SHOULDER SURGERY HX Right 08/21/2023 TONSILLECTOMY HX 08/13/1977 Social History Tobacco Use Smoking status: Never Passive exposure: Never Smokeless tobacco: Never Vaping Use Vaping status: Never Used Substance Use Topics Alcohol use: No Drug use: No Current Outpatient Medications Medication Sig gabapentin (NEURONTIN) 600 mg tablet Take 1 tablet by mouth once daily for 90 days. gabapentin (NEURONTIN) 300 mg capsule Take 1 capsule by mouth two times a day for 30 days. ACTEMRA ACTPEN 162 mg/0.9 mL 1 injection Subcutaneous weekly for 28 days gabapentin (NEURONTIN) 300 mg capsule Take 2 capsules by mouth daily at bedtime for 90 days. gabapentin (NEURONTIN) 400 mg capsule Take 1 capsule by mouth daily at bedtime for 90 days. DULoxetine (CYMBALTA) 30 mg capsule Take 30 mg by mouth once daily. hydrOXYchloroQUINE (PLAQUENIL) 200 mg tablet linezolid (ZYVOX) 600 mg tablet budesonide/formoterol fumarate (SYMBICORT INHALATION) Inhale as instructed. tiotropium bromide (SPIRIVA RESPIMAT INHALATION) Inhale as instructed. leflunomide (ARAVA) 20 mg tablet Take 20 mg by mouth once daily. doxycycline hyclate (VIBRAMYCIN) 100 mg capsule Take 100 mg by mouth twice daily. Risedronate 150 mg tablet Take 150 mg by mouth once every month. In AM with cup of water on empty stomach. Nothing else by mouth and stay upright for 30 min. methotrexate sodium 25 mg/mL soln once each week. montelukast (SINGULAIR) 10 mg tablet once daily. folic acid 1 mg tablet once daily. amoxicillin (POLYMOX, AMOXIL) 500 mg capsule once daily. (Patient not taking: Reported on 03/31/2021 ) BD TUBERCULIN SYRINGE 1 mL 25 x 5/8 syrg Multivitamin capsule Take 1 capsule by mouth once daily. GLUCOSAMINE/CHONDROITIN SULF A (GLUCOSAMINE-CHONDROITIN ORAL) Take by mouth. mometasone (NASONEX) 50 mcg/actuation nasal spray Use 2 Sprays in the nose once daily. No current facility-administered medications for this visit. ALLERGIES Allergen Reactions Gluten Shortness of Breath Peanuts Shortness of Breath Yeast, Dried Shortness of Breath Resp 18 Ht 5' 10 (1.78m) Wt 235 lb (106.6kg) BMI 33.72 kg/(m^2). Review of systems: Constitutional: (+) sleep disturbance Musculoskeletal: (+) left ankle pain, (+) radiating pain from left ankle to knee, (+) morning low back stiffness, (+) left buttock pain, (-) burning ankle pain Skin: (+) right toe sore Neurological: (+) bilateral foot neuropathic pain, (+) foot drop EXAM: - Musculoskeletal: - Left Ankle: - Lateral ankle pain reported. - Back: - No severe pain elicited with forward flexion. - Neurological: Foot drop present. Imaging: (11/13) MRI of the ankle: No abnormalities identified. CT scan: No abnormalities identified. Lumbar spine X-ray: Spondylolisthesis at L4-L5; degenerative retrolisthesis at L1-L2 and L2-L3. Procedures ASSESSMENT: (M54.42, G89.29) Chronic left-sided low back pain with left-sided sciatica (primary encounter diagnosis) (M54.50) Low back pain, unspecified back pain laterality, unspecified chronicity, unspecified whether sciatica present (M21.372) Left foot drop (M54.41, G89.29) Chronic right-sided low back pain with right-sided sciatica (M25.572) Pain in left ankle and joints of left foot (G62.9) Polyneuropathy (M43.16) Spondylolisthesis, lumbar region PLAN: Job has chronic pain of the left lower leg and ankle. He has had extensive workup with Dr. Guzman, our foot and ankle surgeon. His pain is not explained by the imaging and treatment done for the ankle thus far. He does have significant degenerative changes and slippage issues of the lumbar spine. He has significant weakness of the left leg including foot drop. I have ordered MRI of the lumbar spine for further evaluation and determine the extent of the nerve impingement including central spinal stenosis and a left-sided nerve root impingement that may be causing this pain. Furthermore I did order EMG testing and referred to the [facility] [place] to discuss potential treatment options but would like him to have this testing done before he sets up that consultation to streamline the process. I will see Job back after MRI but might change consultation to one of our spine surgeons ifsignificant abnormalities found. 1. Low back pain, unspecified back pain laterality, unspecified chronicity, unspecified whether sciatica present (M54.50) 2. Chronic left-sided low back pain with left-sided sciatica (M54.42) 3. Chronic right-sided low back pain with right-sided sciatica (M54.41) 4. Spondylolisthesis, lumbar region (M43.16) - Lumbar spine X-rays reveal spondylolisthesis at L4-L5 and degenerative retrolisthesis at L2-L3 and L1-L2. - Ordered MRI of the lumbar spine to assess for nerve impingement. - Referred to [facility] [place] for further evaluation and management; advised to schedule appointment after completion of MRI and EMG. 5. Left foot drop (M21.372) - Onset following rupture of the tibialis anterior tendon. - Ordered EMG to evaluate nerve function and potential damage. 6. Pain in left ankle and joints of left foot (M25.572) - Chronic, severe lateral ankle pain exacerbated by weight-bearing; unresponsive to previous cortisone injection. - MRI of the ankle performed on November 13; CT scan conducted this month. - Pain management to be further addressed by [facility] [place] [place]. 7. Polyneuropathy (G62.9) - Currently managed with gabapentin, though patient reports no significant relief. INSTRUCTIONS: - Schedule a lumbar spine MRI to evaluate nerve impingement at L3-L4 and surrounding levels. - Arrange an electromyography (nerve conduction) test for your lower legs to pinpoint nerve damage. - Once both the MRI and EMG are scheduled, our [facility] [place] navigator will call you with appointment options; plan to see a provider there about one week after completing those tests. - Continue taking gabapentin for your neuropathy pain as you have been. [employer] dictation sean used in creation of this note with possible errors. Shaan Mayorga DO documented in this [facility] NoteHNO ID: [id number] Author: MCKINLEY GUZMAN DPM Service: ? Author Type: Physician Type: Progress Notes Filed: 01/29/2025 17:48 Note Text: HPI: This 74 year old male presents for concerns of LLE ankle pain. Patient states they are doing the same as they were doing at the previous visit. Rates pain 8/10 today. Admits to having continuous aching, sharp, shooting pain. Since his last visit, he has obtained a CT of his left ankle and would like to hear more about the results. Additionally, states that the sore on his right 2nd toe has worsened since he last saw us. Pain is somewhat controlled with Gabapentin. Has been weightbearing as tolerated to the left lower extremity in a shoe with use of AFO brace. Recently started Actemra with rheum about 2 months ago. Denies any current nausea, vomiting, fever, chills, shortness of breath, chest pain or calf pain. Denies any other pedal complaints PAST MEDICAL HISTORY Diagnosis Date Asthma (HCC) Left foot pain Prostate cancer (HCC) Rheumatoid arthritis Right foot pain Current Outpatient Medications Medication Sig gabapentin (NEURONTIN) 300 mg capsule Take 1 capsule by mouth two times a day for 30 days. ACTEMRA ACTPEN 162 mg/0.9 mL 1 injection Subcutaneous weekly for 28 days DULoxetine (CYMBALTA) 30 mg capsule Take 30 mg by mouth once daily. hydrOXYchloroQUINE (PLAQUENIL) 200 mg tablet linezolid (ZYVOX) 600 mg tablet budesonide/formoterol fumarate (SYMBICORT INHALATION) Inhale as instructed. leflunomide (ARAVA) 20 mg tablet Take 20 mg by mouth once daily. Multivitamin capsule Take 1 capsule by mouth once daily. mometasone (NASONEX) 50 mcg/actuation nasal spray Use 2 Sprays in the nose once daily. gabapentin (NEURONTIN) 300 mg capsule Take 2 capsules by mouth daily at bedtime for 90 days. gabapentin (NEURONTIN) 600 mg tablet Take 1 tablet by mouth once daily for 90 days. gabapentin (NEURONTIN) 400 mg capsule Take 1 capsule by mouth daily at bedtime for 90 days. tiotropium bromide (SPIRIVA RESPIMAT INHALATION) Inhale as instructed. doxycycline hyclate (VIBRAMYCIN) 100 mg capsule Take 100 mg by mouth twice daily. Risedronate 150 mg tablet Take 150 mg by mouth once every month. In AM with cup of water on empty stomach. Nothing else by mouth and stay upright for 30 min. methotrexate sodium 25 mg/mL soln once each week. montelukast (SINGULAIR) 10 mg tablet once daily. folic acid 1 mg tablet once daily. amoxicillin (POLYMOX, AMOXIL) 500 mg capsule once daily. (Patient not taking: Reported on 03/31/2021 ) BD TUBERCULIN SYRINGE 1 mL 25 x 5/8 syrg GLUCOSAMINE/CHONDROITIN SULF A (GLUCOSAMINE-CHONDROITIN ORAL) Take by mouth. No current facility-administered medications for this visit. ALLERGIES Allergen Reactions Gluten Shortness of Breath Peanuts Shortness of Breath Yeast, Dried Shortness of Breath Objective: Patient presents weightbearing as tolerated to left leg. Problem focus examination to the left lower extremity: Incision site is well coapted without evidence of dehiscence. No erythema or edema surrounding surgical site. No drainage. No lymphadenopathy. No lymphangitis. No surrounding cellulitis. No signs of infection. Patient has no pain to palpation of calf. The calf is soft, supple and nontender without evidence of DVT. Negative Sita's test. Satisfactory alignment is noted. Pedal pulses are palpable. Capillary refill time is less than three seconds to all digits. Sensations are intact to light touch. Problem focused examination to the right lower extremity: Pedal pulses are palpable. Capillary refill time is less than three seconds to all digits. Sensations are intact to light touch. Second toe sore on right foot with small clear discharge, see below: Wound location: R foot second dorsal PIPJ size: 2.0 cm x 1.0 cm x 0.1 cm = 2 total sq cm Type: Pressure/friction Depth: Ulceration extends Full thickness down to subcutaneous Base: Granular and Fibrotic SOI: No clinical SOI Probe: Ulcer does not probe to bone. Drainage: Small amount of serousdrainage. General foot morphology: decreased medial longitudinal arch with plantar prominence at midfoot. 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 +4/5 muscle strength Dorsiflexion, Plantarflexion, Inversion, Eversion, no DF strength to LLE, limited PF strength. No palpable dell noted to achilles tendon. Non palpable AT tendon concerning for chronic rupture. Foot drop noted of LLE. No tenderness to palpation of left achilles tendon at mid substance level. No palpable dells. Negative ignacio test. Tenderness to palpation of left forefoot and midfoot improved since last exam. ROM of the 1st MTPJ is decreased without pain or crepitus. ROM of the MTJ/STJ is decreased without pain or crepitus. Ankle joint ROM is decreased with pain on palpation noted to the left > right. No erythema or edema about the plantar midfoot right. No pain on palpation of (more content not included)...[facility]06-19-2025 History of Present illness Narrative* Mckinley Guzman DPM - 01/29/2025 3:15 PM EDT Images from the original note were not included. HPI: This 74 year old male presents for concerns of LLE ankle pain. Patient states they are doing the same as they were doing at the previous visit. Rates pain 8/10 today. Admits to having continuousaching, sharp, shooting pain. Since his last visit, he has obtained a CT of his left ankle and would like to hear more about the results. Additionally, states that the sore on his right 2nd toe has worsened since he last saw us. Pain is somewhat controlled with Gabapentin. Has been weightbearing astolerated to the left lower extremity in a shoe with use of AFO brace. Recently started Actemra with rheum about 2 months ago. Denies any current nausea, vomiting, fever, chills, shortness of breath,chest pain or calf pain. Denies any other pedal complaints PAST MEDICAL HISTORY Diagnosis Date Asthma (HCC) Left foot pain Prostate cancer (HCC) Rheumatoid arthritis Right foot pain Current Outpatient Medications Medication Sig gabapentin (NEURONTIN) 300 mg capsule Take 1 capsule by mouth two times a day for 30 days. ACTEMRA ACTPEN 162 mg/0.9 mL 1 injection Subcutaneous weekly for 28 days DULoxetine (CYMBALTA) 30 mg capsule Take 30 mg by mouth once daily. hydrOXYchloroQUINE (PLAQUENIL) 200 mg tablet linezolid (ZYVOX) 600 mg tablet budesonide/formoterol fumarate (SYMBICORT INHALATION) Inhale as instructed. leflunomide (ARAVA) 20 mg tablet Take 20 mg by mouth once daily. Multivitamin capsule Take 1 capsule by mouth once daily. mometasone (NASONEX) 50 mcg/actuation nasal spray Use 2 Sprays in the nose once daily. gabapentin (NEURONTIN) 300 mg capsule Take 2 capsules by mouth daily at bedtime for 90 days. gabapentin (NEURONTIN) 600 mg tablet Take 1 tablet by mouth once daily for 90 days. gabapentin (NEURONTIN) 400 mg capsule Take 1 capsule by mouth daily at bedtime for 90 days. tiotropium bromide (SPIRIVA RESPIMAT INHALATION) Inhale as instructed. doxycycline hyclate (VIBRAMYCIN) 100 mg capsule Take 100 mg by mouth twice daily. Risedronate 150 mg tablet Take 150 mg by mouth once every month. In AM with cup of water on empty stomach. Nothing else by mouth and stay upright for 30 min. methotrexate sodium 25 mg/mL soln once each week. montelukast (SINGULAIR) 10 mg tablet once daily. folic acid 1 mg tablet once daily. amoxicillin (POLYMOX, AMOXIL) 500 mg capsule once daily. (Patient not taking: Reported on 03/31/2021 ) BD TUBERCULIN SYRINGE 1 mL 25 x 5/8 syrg GLUCOSAMINE/CHONDROITIN SULF A (GLUCOSAMINE-CHONDROITIN ORAL) Take by mouth. No current facility-administered medications for this visit. ALLERGIES Allergen Reactions Gluten Shortness of Breath Peanuts Shortness of Breath Yeast, Dried Shortness of Breath Objective: Patient presents weightbearing as tolerated to left leg. Problem focus examination to the left lower extremity: Incision site is well coapted without evidence of dehiscence. No erythema or edema surrounding surgical site. No drainage. No lymphadenopathy. No lymphangitis. No surrounding cellulitis. No signs of infection. Patient has no pain to palpation of calf. The calf is soft, supple and nontender without e vidence of DVT. Negative Sita's test. Satisfactory alignment is noted. Pedal pulses are palpable. Capillary refill time is less than three seconds to all digits. Sensations are intact to light touch. Problem focused examination to the right lower extremity: Pedal pulses are palpable. Capillary refill time is less than three seconds to all digits. Sensations are intact to light touch. Second toe sore on right foot with small clear discharge, see below: Wound location: R foot second dorsal PIPJ size: 2.0 cm x 1.0 cm x 0.1 cm = 2 total sq cm Type: Pressure/friction Depth: Ulceration extends Full thickness down to subcutaneous Base: Granular and Fibrotic SOI: No clinical SOI Probe: Ulcer does not probe to bone. Drainage: Small amount of serousdrainage. General foot morphology: decreased medial longitudinal arch with plantar prominence at midfoot. 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 +4/5 muscle strength Dorsiflexion, Plantarflexion, Inversion, Eversion, no DF strength to LLE, limited PF strength. No palpable dell noted to achilles tendon. Non palpable AT tendon concerning for chronic rupture. Foot drop noted of LLE. No tenderness to palpation of left achilles tendon at mid substance level. No palpable dells. Negative ignacio test.Tenderness to palpation of left forefoot and midfoot improved since last exam. ROM of the 1st MTPJ is decreased without pain or crepitus. ROM of the MTJ/STJ is decreased without pain or crepitus. Ankle joint ROM is decreased with pain on palpation noted to the left > right. No erythema or edema about the plantar midfoot right. No pain on palpation of left 2nd metatarsal bone. Results MRI ANKLE WO IVCON LEFT (Acc#[id number]) (Order [id number]) Impression IMPRESSION: 1. Hindfoot/midfoot degenerative changes. 2. Low-grade Achilles tendinosis. 3. Plantar fasciitis with low-grade interstitial tear and calcaneal spur. 4. Short segment thickening/tendinosis anterior tibialis tendon. 5. Diffuse soft tissue edema about the ankle and dorsal foot. URIC ACID Order: [id number] Status: Final result Dx: Acute left ankle pain Test Result Released: Yes (not seen) 0 Result Notes Component Ref Range & Units 1 mo ago Uric Acid 4.0 - 8.1 mg/dL 4.3 Resulting Agency [facility] ntains abnormal data COMPLETE BLOOD COUNT Order: [id number] Status: Final result Dx: Acute left ankle pain Test Result Released: Yes (seen) 0 Result Notes Component Ref Range & Units 1 mo ago WBC 3.70 - 11.00 k/uL 5.60 RBC 4.20 - 6.00 m/uL 4.66 Hemoglobin 13.0 - 17.0 g/dL 15.1 Hematocrit 39.0 - 51.0 % 44.8 MCV 80.0 - 100.0 fL 96.1 MCH 26.0 - 34.0 pg 32.4 MCHC 30.5 - 36.0 g/dL 33.7 RDW-CV 11.5 - 15.0 % 13.3 Platelet Count 150 - 400 k/uL 222 MPV 9.0 - 12.7 fL 8.9 Low Absolute nRBC <0.01 k/uL <0.01 Resulting Agency [facility] 3 views AP, MO, Lat left ankle were taken and evaluated previously Radiographic evaluation: No obvious fracture or dislocation is noted. No acute osseous changes. No osteolytic or osteoblastic lesions appreciated. No soft tissue gas. No discernible mass noted. Jointspaces are well maintained. Bone density appear typical for age of patient. CT LEFT ANKLE 01/21/25: IMPRESSION: 1. No acute bony abnormality. 2. 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 3. Mild talonavicular joint arthrosis. 4. Mild Achilles tendinosis. Assessment: Chronic L ankle pain Ulceration for R second digit Plan: The patient was educated on clinical examination findings, postoperative prognosis and protocol. All questions were answered to patient's apparent satisfaction. - Patient to continue weightbearing as tolerated to the operative extremity with use of AFO braces. - CT scan results reviewed, dicussed patient consult to Dr. Mayorga for further evaluation of possible underlying radiculopathy - As for right foot, advised patient need to return to [place] boot to help offload wound second digit - Continue to apply collagen and DSD to R toe wound. - Rx for gabapentin dispensed per patient request - RTC in 2 weeks I personally saw and evaluated the patient. I reviewed the resident's note. I agree with the resident's assessment and plan unless otherwise noted. Mckinley Guzman DPM, FACFAS * Jean Hardy Tech - 01/29/2025 2:52 PM EDT REVIEW OF SYSTEMS: GENERAL: Well developed, well nourished. No acute distress PAIN: Negative for pain, history of chronic pain or current treatment for chronic pain conditions CARDIOVASCULAR: Negative for chest pain, leg swelling and palpations. MSK: Negative for joint swelling SKIN: Negative for lesions, rash, itching, metal sensitivity NEURO: Numbness/tingling of extremties ENDOCRINE: Negative for diabetic associated symptoms HEMATOLOGY: Negative for excessive bleeding, clots, bleeding disorders. documented in this encounterSt. [facility] NoteHNO ID: [id number] Author: JEAN HARDY Tech Service: ? Author Type: Policy Issue Clerk Type: Progress Notes Filed: 01/29/2025 17:48 Note Text: REVIEW OF SYSTEMS: GENERAL: Well developed, well nourished. No acute distress PAIN: Negative for pain, history of chronic pain or current treatment for chronic pain conditions CARDIOVASCULAR: Negative for chest pain, leg swelling and palpations. MSK: Negative for joint swelling SKIN: Negative for lesions, rash, itching, metal sensitivity NEURO: Numbness/tingling of extremties ENDOCRINE: Negative for diabetic associated symptoms HEMATOLOGY: Negative for excessive bleeding, clots, bleeding disorders.[facility]06-11-2025 History of Present illness Narrative* Jo Martini RT(Tatum) - 01/21/2025 5:30 PM EDT Radiology Service Progress Note PATIENT NAME: Shivani Bonilla DATE OF SERVICE: January 21, 2025 TIME: 5:11 PM PATIENT IDENTITY VERIFICATION COMPLETED USING TWO (2) IDENTIFIERS: Name and Date of confirmedby patient verbally. FALL SCREENING: Has the patient had 2 falls in the last year or 1 fall with injury or currently using an Ambulatory Assistive Device (Walker, Cane, Wheelchair, Crutches, etc.)? No PATIENT GENDER DATA: Assigned male at PATIENT RELEVANT IMPLANT DATA REVIEWED: Not Applicable PATIENT PRESENTS WITH AN IMPLANTABLE OR ATTACHED CONFERENCE ORGANIZER: No RADIOLOGY DEPARTMENT: CT; Exam(s) Completed: Lower extremity PERIPHERAL IV DATA: Not applicable SIGNED BY: RT Alexi(Tatum) January 21, 2025 5:11 PM documented in this encounterSt. [facility] NoteHNO ID: [id number] Author: JO MARTINI RT (R) Service: ? Author Type: Policy Issue Clerk Type: Progress Notes Filed: 01/21/2025 17:12 Note Text: Radiology Service Progress Note PATIENT NAME: Shivani Bonilla DATE OF SERVICE: January 21, 2025 TIME: 5:11 PM PATIENT IDENTITY VERIFICATION COMPLETED USING TWO (2) IDENTIFIERS: Name and Date of confirmed by patient verbally. FALL SCREENING: Has the patient had 2 falls in the last year or 1 fall with injury or currently using an Ambulatory Assistive Device (Walker, Cane, Wheelchair, Crutches, etc.)? No PATIENT GENDER DATA: Assigned male at PATIENT RELEVANT IMPLANT DATA REVIEWED: Not Applicable PATIENT PRESENTS WITH AN IMPLANTABLE OR ATTACHED CONFERENCE ORGANIZER: No RADIOLOGY DEPARTMENT: CT; Exam(s) Completed: Lower extremity PERIPHERAL IV DATA: Not applicable SIGNED BY: RT Alexi(Tatum) January 21, 2025 5:11 [facility]06-05-2025 Instructions* Patient Instructions* Ursula Flores DPM - 01/15/2025 2:53 PM EDT Rest, ice, elevate as needed Obtain CT documented in this encounterSt. [facility] NoteHNO ID: [id number] Author: MCKINLEY GUZMAN DPM Service: ? Author Type: Physician Type: Progress Notes Filed: 01/16/2025 09:44 Note Text: This 74 year old male presents for concerns of LLE ankle pain. Patient states they are doing well. Rates pain 8/10 today. Admits to having continuous aching, sharp, shooting pain. Pain is well controlled with Gabapentin. Has been weightbearing as tolerated to the left lower extremity in a shoe with use of AFO brace. States the injection last visit did not help at all (1 month ago). States gabapentin is not helping the pain at night. Recently started Actemra with rheum about 2 months ago. Denies any current nausea, vomiting, fever, chills, shortness of breath, chest pain or calf pain. Denies any other pedal complaints PAST MEDICAL HISTORY Diagnosis Date Asthma (HCC) Left foot pain Prostate cancer (HCC) Rheumatoid arthritis Right foot pain Current Outpatient Medications Medication Sig gabapentin (NEURONTIN) 300 mg capsule Take 1 capsule by mouth two times a day for 30 days. ACTEMRA ACTPEN 162 mg/0.9 mL 1 injection Subcutaneous weekly for 28 days DULoxetine (CYMBALTA) 30 mg capsule Take 30 mg by mouth once daily. hydrOXYchloroQUINE (PLAQUENIL) 200 mg tablet linezolid (ZYVOX) 600 mg tablet budesonide/formoterol fumarate (SYMBICORT INHALATION) Inhale as instructed. tiotropium bromide (SPIRIVA RESPIMAT INHALATION) Inhale as instructed. leflunomide (ARAVA) 20 mg tablet Take 20 mg by mouth once daily. Risedronate 150 mg tablet Take 150 mg by mouth once every month. In AM with cup of water on empty stomach. Nothing else by mouth and stay upright for 30 min. Multivitamin capsule Take 1 capsule by mouth once daily. mometasone (NASONEX) 50 mcg/actuation nasal spray Use 2 Sprays in the nose once daily. gabapentin (NEURONTIN) 300 mg capsule Take 2 capsules by mouth daily at bedtime for 90 days. gabapentin (NEURONTIN) 600 mg tablet Take 1 tablet by mouth once daily for 90 days. gabapentin (NEURONTIN) 400 mg capsule Take 1 capsule by mouth daily at bedtime for 90 days. doxycycline hyclate (VIBRAMYCIN) 100 mg capsule Take 100 mg by mouth twice daily. methotrexate sodium 25 mg/mL soln once each week. montelukast (SINGULAIR) 10 mg tablet once daily. folic acid 1 mg tablet once daily. amoxicillin (POLYMOX, AMOXIL) 500 mg capsule once daily. (Patient not taking: Reported on 03/31/2021 ) BD TUBERCULIN SYRINGE 1 mL 25 x 5/8 syrg GLUCOSAMINE/CHONDROITIN SULF A (GLUCOSAMINE-CHONDROITIN ORAL) Take by mouth. No current facility-administered medications for this visit. ALLERGIES Allergen Reactions Gluten Shortness of Breath Peanuts Shortness of Breath Yeast, Dried Shortness of Breath Objective: Patient presents weightbearing as tolerated to left leg. Problem focus examination to the left lower extremity: Incision site is well coapted without evidence of dehiscence. Mild erythema and edema surrounding surgical site. No drainage. No lymphadenopathy. No lymphangitis. No surrounding cellulitis. No signs of infection. Second toe sore on right foot with small clear discharge. Patient has no pain to palpation of calf. The calf is soft, supple and nontender without evidence of DVT. Negative Sita's test. Satisfactory alignment is noted. Pedal pulses are palpable. Capillary refill time is less than three seconds to all digits. Sensations are intact to light touch. Wound location: R foot second digit wound Size: 2.0 cm x 1.0 cm x 0.1 cm = 2 total sq cm Type: Decubitus Depth: Ulceration extends Full thickness down to subcutaneous Base: Granular and Fibrotic SOI: No clinical SOI Probe: Ulcer does not probe to bone. Drainage: Small amount of serousdrainage. Condition: Improving General foot morphology: decreased medial longitudinal arch with plantar prominence at midfoot. 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 +4/5 muscle strength Dorsiflexion, Plantarflexion, Inversion, Eversion, no DF strength to LLE, limited PF strength. No palpable dell noted to achilles tendon. Non palpable AT tendon concerning for chronic rupture. Foot drop noted of LLE. No tenderness to palpation of left achilles tendon at mid substance level. No palpable dells. Negative ignacio test. Tenderness to palpation of left forefoot and midfoot improved since last exam. ROM of the 1st MTPJ is decreased without pain or crepitus. ROM of the MTJ/STJ is decreased without pain or crepitus. Ankle joint ROM is decreased with pain on palpation noted to the left > right. No erythema or edema about the plantar midfoot right. No pain on palpation of left 2nd metatarsal bone. Results MRI ANKLE WO IVCON LEFT (Acc#[id number]) (Order [id number]) Impression IMPRESSION: 1. Hindfoot/midfoot degenerative changes. 2. Low-grade Achilles tendinosis. 3. Plantar fasciitis with low-grade interstitial tear and calcaneal spur. 4. Short segment (more content not included)...[facility] 01-15-2025 History of Present illness Narrative* Mckinley Guzman, CONNOR - 01/15/2025 1:54 PM EDT Images from the original note were not included. This 74 year old male presents for concerns of LLE ankle pain. Patient states they are doing well. Rates pain 8/10 today. Admits to having continuous aching, sharp, shooting pain. Pain is well controlled with Gabapentin. Has been weightbearing as tolerated to the left lower extremity in a shoe withuse of AFO brace. States the injection last visit did not help at all (1 month ago). States gabapentin is not helping the pain at night. Recently started Actemra with rheum about 2 months ago. Deniesany current nausea, vomiting, fever, chills, shortness of breath, chest pain or calf pain. Denies any other pedal complaints PAST MEDICAL HISTORY Diagnosis Date Asthma (HCC) Left foot pain Prostate cancer (HCC) Rheumatoid arthritis Right foot pain Current Outpatient Medications Medication Sig gabapentin (NEURONTIN) 300 mg capsule Take 1 capsule by mouth two times a day for 30 days. ACTEMRA ACTPEN 162 mg/0.9 mL 1 injection Subcutaneous weekly for 28 days DULoxetine (CYMBALTA) 30 mg capsule Take 30 mg by mouth once daily. hydrOXYchloroQUINE (PLAQUENIL) 200 mg tablet linezolid (ZYVOX) 600 mg tablet budesonide/formoterol fumarate (SYMBICORT INHALATION) Inhale as instructed. tiotropium bromide (SPIRIVA RESPIMAT INHALATION) Inhale as instructed. leflunomide (ARAVA) 20 mg tablet Take 20 mg by mouth once daily. Risedronate 150 mg tablet Take 150 mg by mouth once every month. In AM with cup of water on empty stomach. Nothing else by mouth and stay upright for 30 min. Multivitamin capsule Take 1 capsule by mouth once daily. mometasone (NASONEX) 50 mcg/actuation nasal spray Use 2 Sprays in the nose once daily. gabapentin (NEURONTIN) 300 mg capsule Take 2 capsules by mouth daily at bedtime for 90 days. gabapentin (NEURONTIN) 600 mg tablet Take 1 tablet by mouth once daily for 90 days. gabapentin (NEURONTIN) 400 mg capsule Take 1 capsule by mouth daily at bedtime for 90 days. doxycycline hyclate (VIBRAMYCIN) 100 mg capsule Take 100 mg by mouth twice daily. methotrexate sodium 25 mg/mL soln once each week. montelukast (SINGULAIR) 10 mg tablet once daily. folic acid 1 mg tablet once daily. amoxicillin (POLYMOX, AMOXIL) 500 mg capsule once daily. (Patient not taking: Reported on 03/31/2021 ) BD TUBERCULIN SYRINGE 1 mL 25 x 5/8 syrg GLUCOSAMINE/CHONDROITIN SULF A (GLUCOSAMINE-CHONDROITIN ORAL) Take by mouth. No current facility-administered medications for this visit. ALLERGIES Allergen Reactions Gluten Shortness of Breath Peanuts Shortness of Breath Yeast, Dried Shortness of Breath Objective: Patient presents weightbearing as tolerated to left leg. Problem focus examination to the left lower extremity: Incision site is well coapted without evidence of dehiscence. Mild erythema and edema surrounding surgical site. No drainage. No lymphadenopathy. No lymphangitis. No surrounding cellulitis. No signs of infection. Second toe sore on right foot with small clear discharge. Patient has no pain to palpation of calf. The calf is soft, supple and nontender without evidence of DVT. Negative Sita's test. Satisfactory alignment is noted. Pedal pulses are palpable. Capillary refill time is less than three seconds to all digits. Sensations are intact to light touch. Wound location: R foot second digit wound Size: 2.0 cm x 1.0 cm x 0.1 cm = 2 total sq cm Type: Decubitus Depth: Ulceration extends Full thickness down to subcutaneous Base: Granular and Fibrotic SOI: No clinical SOI Probe: Ulcer does not probe to bone. Drainage: Small amount of serousdrainage. Condition: Improving General foot morphology: decreased medial longitudinal arch with plantar prominence at midfoot. 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 +4/5 muscle strength Dorsiflexion, Plantarflexion, Inversion, Eversion, no DF strength to LLE, limited PF strength. No palpable dell noted to achilles tendon. Non palpable AT tendon concerning for chronic rupture. Foot drop noted of LLE. No tenderness to palpation of left achilles tendon at mid substance level. No palpable dells. Negative ignacio test. Tenderness to palpation of left forefoot and midfoot improved since last exam. ROM of the 1st MTPJ is decreased without pain or crepitus. ROM of the MTJ/STJ is decreased without pain or crepitus. Ankle joint ROM is decreased with pain on palpation noted to the left > right. No erythema or edema about the plantar midfoot right. No pain on palpation of left 2nd metatarsal bone. Results MRI ANKLE WO IVCON LEFT (Acc#[id number]) (Order [id number]) Impression IMPRESSION: 1. Hindfoot/midfoot degenerative changes. 2. Low-grade Achilles tendinosis. 3. Plantar fasciitis with low-grade interstitial tear and calcaneal spur. 4. Short segment thickening/tendinosis anterior tibialis tendon. 5. Diffuse soft tissue edema about the ankle and dorsal foot. URIC ACID Order: [id number] Status: Final result Dx: Acute left ankle pain Test Result Released: Yes (not seen) 0 Result Notes Component Ref Range & Units 1 mo ago Uric Acid 4.0 - 8.1 mg/dL 4.3 Resulting Agency [facility] ntains abnormal data COMPLETE BLOOD COUNT Order: [id number] Status: Final result Dx: Acute left ankle pain Test Result Released: Yes (seen) 0 Result Notes Component Ref Range & Units 1 mo ago WBC 3.70 - 11.00 k/uL 5.60 RBC 4.20 - 6.00 m/uL 4.66 Hemoglobin 13.0 - 17.0 g/dL 15.1 Hematocrit 39.0 - 51.0 % 44.8 MCV 80.0 - 100.0 fL 96.1 MCH 26.0 - 34.0 pg 32.4 MCHC 30.5 - 36.0 g/dL 33.7 RDW-CV 11.5 - 15.0 % 13.3 Platelet Count 150 - 400 k/uL 222 MPV 9.0 - 12.7 fL 8.9 Low Absolute nRBC <0.01 k/uL <0.01 Resulting Agency [facility] 3 views AP, MO, Lat left ankle were taken and evaluated. Radiographic evaluation: No obvious fracture or dislocation is noted. No acute osseous changes. No osteolytic or osteoblastic lesions appreciated. No soft tissue gas. No discernible mass noted. Jointspaces are well maintained. Bone density appear typical for age of patient. Assessment: Chronic L ankle pain Ulceration for R second digit Plan: The patient was educated on clinical examination findings, postoperative prognosis and protocol. All questions were answered to patient's apparent satisfaction. - Patient to continue weightbearing as tolerated to the operative extremity with use of AFO braces. - XR obtained and evaluated - CT scan ordered - RICE therapy as needed - Apply collagen and DSD to R toe wound. Message sent to [facility] for dressing supplies. - Rx for gabapentin refill RTC after CT Ursula Flores DPM PGY-3 I personally saw and evaluated the patient. I reviewed the resident's note. I agree with the resident's assessment and plan unless otherwise noted. Mckinley Guzman DPM, FACFAS * Jean Hardy Tech - 01/15/2025 1:43 PM EDT REVIEW OF SYSTEMS: GENERAL: Well developed, well nourished. No acute distress PAIN: Negative for pain, history of chronic pain or current treatment for chronic pain conditions CARDIOVASCULAR: Negative for chest pain, leg swelling and palpations. MSK: Negative for joint swelling SKIN: Negative for lesions, rash, itching, metal sensitivity NEURO: Numbness/tingling of extremties ENDOCRINE: Negative for diabetic associated symptoms HEMATOLOGY: Negative for excessive bleeding, clots, bleeding disorders. documented in [facility] NoteHNO ID: [id number] Author: JEAN HARDY Tech Service: ? Author Type: Policy Issue Clerk Type: Progress Notes Filed: 01/16/2025 09:44 Note Text: REVIEW OF SYSTEMS: GENERAL: Well developed, well nourished. No acute distress PAIN: Negative for pain, history of chronic pain or current treatment for chronic pain conditions CARDIOVASCULAR: Negative for chest pain, leg swelling and palpations. MSK: Negative for joint swelling SKIN: Negative for lesions, rash, itching, metal sensitivity NEURO: Numbness/tingling of extremties ENDOCRINE: Negative for diabetic associated symptoms HEMATOLOGY: Negative for excessive bleeding, clots, bleeding disorders.[facility]06-05-2025 Telephone encounter Note* Telephone Encounter - Mckinley Guzman DPM - 01/15/2025 9:42 AM EDT Done Thanks Mckinley Guzman DPM, FACFAS [facility]06-05-2025 Miscellaneous Notes* Telephone Encounter - Mckinley Guzman DPM - 01/15/2025 9:42 AM EDT Done Thanks Mckinley Guzman DPM, FACFAS documented in this encounterSt. [facility] History of Present illness Narrative* Erickson Haile MD - 01/12/2025 11:00 AM EDT [facility] [address] [facility] [address] Dept: [phone] Dept Shivani Kauffman Janiya 1950 [id number] 01/12/2025 HISTORY OF PRESENT ILLNESS: Shivani is a 75 y.o. male here today for evaluation of his left ankle Shivani states the problem has been present for 8 months. He states that he has been receiving treatment with Dr. Guzman for issues related to his left ankle and foot. He is currently in an ankle toe off brace type brace secondary to foot drop which he has had for many years. He has pain in around the ankle. He states that his pain is pretty much constant. He is currently on a disease modifying rheumatoid type drug which he is unsure is helping. He recently started it. He has a custom moldedfoot orthosis for the left foot. He is in a solid AFO on the right side secondary to previous Charcot foot. Shivani states the problem started gradually with no injuries occurring Shivani has tried or has been treated with the following: AFO for foot drop , injection Review of Systems Surgical Risk Factors: Allergies to Metals or Latex: NO Have you been treated for a blood clot: NO Have you had a history of bleeding disorder: NO Have you had a history of Anesthetic problems: NO Do you have tendency to bruise easily: NO Do you experience prolonged or excessive bleeding from cuts or after surgery: NO General/Constitutional: General: no Cancer: NO Acute/Chronic Infections: NO HEENT/Neck: Problems with theThroat: NO Problems with the Eyes: NO Problems with the Ears: NO Problems with the Nose and Sinuses: NO Endocrine: Problems with Diabetes: NO Problems with Thyroid Disorder: NO Thorax: Problems with the Heart: NO Problems with the Lung: no Cardiovascular: Problems with Circulation: NO Problems with High Blood pressure: NO Gastrointestinal: Problems with Ulcers: NO Problems with the Liver: no Problems with Bowel Habits: NO Genitourinary: Problems with the Genitals: NO Urinary problems: NO Kidney disease or stones: yes to stones x 4 Skin: Any general problems: NO Neurologic: Dizziness, blurred vision, headaches, problems with balance : NO Seizures or Stroke: NO Psychiatric: Emotional or Psychological disorders: NO Depression or Anxiety: no PAST MEDICAL HISTORY: Medical History[1] Allergies[2] PHYSICAL EXAM: Ht 1.778 m (5' 10) Wt 107 kg (235 lb) BMI 33.72 kg/m This is an age appropriate appearing male who is alert and oriented x 3. The patient appears well nourished. Psychiatric: The patient is able to verbalize normally and seems to have a good understanding of his situation. left lower extremity examination Lymphatic System: Diffuse hindfoot and midfoot swelling Vascular: Dorsalis pedis pulse: 2+ Posterior tibial pulse: 2+ Capillary refill is less than 3 seconds Skin/nails: Normal appearance, warm and dry. There is a healed dorsal forefoot incision in line of the second metatarsal Hair growth present on foot and toes Neurologic: Sensation mildly decreased to light touch throughout the foot and the ankle Musculoskeletal: The calf is nontender to palpation. ROM: Decreased ROM of the foot and ankle Muscle strength testing: Anterior tibialis: 5/5 Posterior tibialis: 5/5 Peroneus brevis: 5/5 Peroneus longus: 5/5 Gastrocsoleus: 5/5 Tenderness: Tender to palpation over the tarsal sinus, the talonavicular joint into a more mild degree at the calcaneocuboid joint. The anterior ankle joint line was nontender. Mild tenderness was noted over the dorsal midfoot. Gait and Station: Shivani is able to ambulate with a antalgic limp Shivani is able to stand unassisted and maintains balance RADIOGRAPHIC INTERPRETATION: 3 weight bearing views of the left ankle and foot were obtained and the following is my interpretation of the findings present of the X-rays: The left ankle shows the ankle mortise and syndesmosis to be anatomically aligned. No signs of ankle arthrosis. No other ankle abnormalities are seen. 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 Mild arthrosis of the calcaneocuboid joint is also seen. There is a screw with what appears to be a partially healed fracture of the second metatarsal. The screw runs from the metatarsal head to the base of the second metatarsal and is intramedullary. 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 Mild arthrosis of the first tarsometatarsal joint is also noted. An increase in longitudinal arch height isnoted. Mild calcification at the Achilles tendon insertion site and on the plantar aspect of the calcaneal posterior tuberosity. IMPRESSION: MRI left ankle 1. Hindfoot/midfoot degenerative changes. 2. Low-grade Achilles tendinosis. 3. Plantar fasciitis with low-grade interstitial tear and calcaneal spur. 4. Short segment thickening/tendinosis anterior tibialis tendon. 5. Diffuse soft tissue edema about the ankle and dorsal foot. REVIEW OF RELATED PREVIOUS DOCUMENTATION: Documents from Dr. Guzman were reviewed. LABORATORY RESULT INTERPRETATION: No labs were reviewed/No labs available for review DIAGNOSIS: Diagnosis Plan 1. Left foot pain XR foot 3+ views left 2. Acute left ankle pain XR foot 3+ views left XR ankle 3+ views left 3. Arthritis of both feet Ambulatory referral to [facility] MEDICAL DECISION MAKING: I had a discussion with Shivani to make sure he has a good understanding of the diagnoses/issues that I think are present today and understands the plan moving forward. I explained to Diego that he has arthritis of the hindfoot and midfoot. Surgery is an option which he would need a triple arthrodesis and fusion of the 1st, 2nd and 3rd tarsometatarsal joints. I explained is a very extensive surgical procedure and would only recommended as a last resort. From my standpoint he likely would benefit from a custom molded foot orthosis on the left side with his ankle toe off brace. I explained Dr. Guzman is taking good care of him and he can continue to see Dr. Guzman for further care although I am happy to see him at any time. Follow up if symptoms worsen or fail to improve. Electronically signed by Erickson Haile MD [facility] Department of Orthopedic surgery 01/12/2025 1:05 PM Voice recognition was used for portions of this note and although it was reviewed prior to signing some incorrect words or phrases could be present. [1] Past Medical History: Diagnosis Date Allergic rhinitis past immunotherpy per Dr. Cao Asthma Berenice Simpson Colon cancer screening 02/2020 August Canales 2022 DDD (degenerative disc disease), cervical 2012 Degenerative arthritis of thoracic spine Foot fracture, right 12/2016 History of gastric ulcer 2009 EGD History of left heart catheterization 07/[address] Talavera History of prostate cancer 2012 Dr. Katlin Ng Urology prostatectomy- PSA 09/04 History of renal stone 1992 rec 10/05 cysto Hypercholesterolemia with hypertriglyceridemia 03/2019 attempting diet control Lumbar spine scoliosis Osteoarthritis of both knees 2004 bilat TKR- 2014, per Dr. Amado Osteomyelitis ([facility]) 10/2019 s/p Rt 2nd toe per Dr. Rubi Osteoperrol Personal history of colonic polyps 02/2020 Dr. 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 Author Type: LICENSED NURSE Type: Progress Notes Filed: 01/13/2025 08:57 Note Text: Injection prepared per Dr. Guzman's order and handed directly to him. Naomi Dolan [facility]05-08-2025 History of Present illness Narrative* Naomi Dolan LPN - 12/18/2024 2:19 PM EDT Injection prepared per Dr. Guzman's order and handed directly to him. Naomi Dolan LPN * Mckinley Guzman DPM - 12/18/2024 1:45 PM EDTAssociated Order(s): Medium Joint Arthro/Inj: L ankle joint Post-Procedure Diagnose(s): Chronic pain of left ankle Images from the original note were not included. DOS: 08/18/2024 POD: 4 months 2 days Procedure: Second metatarsal ORIF, left foot This 74 year old male presents for a post op visit. Patient states they are doing well. Rates pain 8/10 today. Admits to having continuous aching, sharp, shooting pain. Pain is well controlled with Gabapentin. Has been weightbearing as tolerated to the left lower extremity in a shoe with use of AFObrace.He states he developed a sore on his second toe on right foot last admits to having a little clear discharge from it. He is requesting refills on Gabapentin today. Denies any current nausea, vomiting, fever, chills, shortness of breath, chest pain or calf pain. Denies any other pedalcomplaints PAST MEDICAL HISTORY Diagnosis Date Asthma (HCC) Left foot pain Prostate cancer (HCC) Rheumatoid arthritis Right foot pain Current Outpatient Medications Medication Sig ACTEMRA ACTPEN 162 mg/0.9 mL 1 injection Subcutaneous weekly for 28 days gabapentin (NEURONTIN) 300 mg capsule Take 2 capsules by mouth daily at bedtime for 90 days. gabapentin (NEURONTIN) 600 mg tablet Take 1 tablet by mouth once daily for 90 days. gabapentin (NEURONTIN) 400 mg capsule Take 1 capsule by mouth daily at bedtime for 90 days. DULoxetine (CYMBALTA) 30 mg capsule Take 30 mg by mouth once daily. hydrOXYchloroQUINE (PLAQUENIL) 200 mg tablet linezolid (ZYVOX) 600 mg tablet budesonide/formoterol fumarate (SYMBICORT INHALATION) Inhale as instructed. tiotropium bromide (SPIRIVA RESPIMAT INHALATION) Inhale as instructed. leflunomide (ARAVA) 20 mg tablet Take 20 mg by mouth once daily. doxycycline hyclate (VIBRAMYCIN) 100 mg capsule Take 100 mg by mouth twice daily. Risedronate 150 mg tablet Take 150 mg by mouth once every month. In AM with cup of water on empty stomach. Nothing else by mouth and stay upright for 30 min. methotrexate sodium 25 mg/mL soln once each week. montelukast (SINGULAIR) 10 mg tablet once daily. folic acid 1 mg tablet once daily. amoxicillin (POLYMOX, AMOXIL) 500 mg capsule once daily. (Patient not taking: Reported on 03/31/2021 ) BD TUBERCULIN SYRINGE 1 mL 25 x 5/8 syrg Multivitamin capsule Take 1 capsule by mouth once daily. GLUCOSAMINE/CHONDROITIN SULF A (GLUCOSAMINE-CHONDROITIN ORAL) Take by mouth. mometasone (NASONEX) 50 mcg/actuation nasal spray Use 2 Sprays in the nose once daily. No current facility-administered medications for this visit. ALLERGIES Allergen Reactions Gluten Shortness of Breath Peanuts Shortness of Breath Yeast, Dried Shortness of Breath Objective: Patient presents weightbearing as tolerated to left leg. Problem focus examination to the left lower extremity: Incision site is well coapted without evidence of dehiscence. Mild erythema and edema surrounding surgical site. No drainage. No lymphadenopathy. No lymphangitis. No surrounding cellulitis. No signs of infection. Second toe sore on right foot with small clear discharge. Patient has no pain to palpation of calf. The calf is soft, supple and nontender without evidence of DVT. Negative Sita's test. Satisfactory alignment is noted. Pedal pulses are palpable. Capillary refill time is less than three seconds to all digits. Sensations are intact to light touch. General foot morphology: decreased medial longitudinal arch with plantar prominence at midfoot. 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 +4/5 muscle strength Dorsiflexion, Plantarflexion, Inversion, Eversion, no DF strength to LLE, limited PF strength. No palpable dell noted to achilles tendon. Non palpable AT tendon concerning for chronic rupture. Foot drop noted of LLE. No tenderness to palpation of left achilles tendon at mid substance level. No palpable dells. Negative ignacio test. Tenderness to palpation of left forefoot and midfoot improved since last exam. ROM of the 1st MTPJ is decreased without pain or crepitus. ROM of the MTJ/STJ is decreased without pain or crepitus. Ankle joint ROM is decreased with pain on palpation noted to the left > right. No erythema or edema about the plantar midfoot right. No pain on palpation of left 2nd metatarsal bone. Results MRI ANKLE WO IVCON LEFT (Acc#[id number]) (Order [id number]) Impression IMPRESSION: 1. Hindfoot/midfoot degenerative changes. 2. Low-grade Achilles tendinosis. 3. Plantar fasciitis with low-grade interstitial tear and calcaneal spur. 4. Short segment thickening/tendinosis anterior tibialis tendon. 5. Diffuse soft tissue edema about the ankle and dorsal foot. URIC ACID Order: [id number] Status: Final result Dx: Acute left ankle pain Test Result Released: Yes (not seen) 0 Result Notes Component Ref Range & Units 1 mo ago Uric Acid 4.0 - 8.1 mg/dL 4.3 Resulting Agency [facility] ntains abnormal data COMPLETE BLOOD COUNT Order: [id number] Status: Final result Dx: Acute left ankle pain Test Result Released: Yes (seen) 0 Result Notes Component Ref Range & Units 1 mo ago WBC 3.70 - 11.00 k/uL 5.60 RBC 4.20 - 6.00 m/uL 4.66 Hemoglobin 13.0 - 17.0 g/dL 15.1 Hematocrit 39.0 - 51.0 % 44.8 MCV 80.0 - 100.0 fL 96.1 MCH 26.0 - 34.0 pg 32.4 MCHC 30.5 - 36.0 g/dL 33.7 RDW-CV 11.5 - 15.0 % 13.3 Platelet Count 150 - 400 k/uL 222 MPV 9.0 - 12.7 fL 8.9 Low Absolute nRBC <0.01 k/uL <0.01 Resulting Agency [facility] Assessment: Satisfactory post-operative progress Plan: The patient was educated on clinical examination findings, postoperative prognosis and protocol. All questions were answered to patient's apparent satisfaction. Total patient care time w/ pt was at least 45 minutes w/ at least 50% of the time spent reviewing the results of the recent imaging including (MRI,CT,EMG/NCV) counseling the pt on treatment options and coordinating their care. - MRI and lab results reviewed with patient. - Patient to continue weightbearing as tolerated to the operative extremity with use of AFO braces. - Bacitracin ointment applied with band-aid. - Recommends a cortisone injection to left ankle joint today. Patient is agreeable. - New Rx Gabapentin dispensed to [facility]. Medium Joint Arthro/Inj: L ankle joint 12/21/2024 10:54 AM The procedure site was prepped in the usual sterile fashion. Site: L ankle joint Medications: 0.5 mL dexAMETHasone sodium phosphate 4 mg/mL; 0.5 mL triamcinolone acetonide 40 mg/mL Anesthetics: 2 mL BUPivacaine (PF) 0.5 % (5 mg/mL) Outcome: tolerated well, no immediate complications Post-injection instructions were reviewed with the patient and the patient voiced understanding of these instructions. Informed Consent Rhodelia Protocol SIGN IN Personnel directly involved with the procedure wore the appropriate PPE. Special Equipment: Yes Patient/Surrogate Stated/Verified: Patient name TIME OUT Relevant labs, photos, and/or imaging studies have been reviewed. Intended patient and procedure match source documents. SIGN OUT All specimens correctly labeled and sent. All instruments, equipment, possible retained foreign bodies accounted for. The post-procedure POC has been communicated to the patient or surrogate. Post-procedure POC communicated to patient's multidisciplinary team (including bedside nurse for hospitalized patients). Follow up 4 weeks. Scribe Attestation: By signing my name below, I, Zoya Bob MA, attest that this documentation has been prepared under the direction and in the presence of Mckinley Guzman DPM. Electronically Signed: Zoya Bob MA, Scribe. December 18, 2024 2:05 PM. Clinician Attestation Statement: The information in this document, created by the certified court/medical interpreter for me, accurately reflects the services I personally performed and the decisions made by me. I have reviewed and approved this document for accuracy. Mckinley Guzman DPM, FACFAS documented in this encounterSt. [facility] NoteHNO ID: [id number] Author: MCKINLEY GUZMAN DPM Service: ? Author Type: Physician Type: Progress Notes Filed: 01/13/2025 08:57 Note Text: DOS: 08/18/2024 POD: 4 months 2 days Procedure: Second metatarsal ORIF, left foot This 74 year old male presents for a post op visit. Patient states they are doing well. Rates pain 03/22 today. Admits to having continuous aching, sharp, shooting pain. Pain is well controlled with Gabapentin. Has been weightbearing as tolerated to the left lower extremity in a shoe with use of AFO brace.He states he developed a sore on his second toe on right foot last admits to having a little clear discharge from it. He is requesting refills on Gabapentin today. Denies any current nausea, vomiting, fever, chills, shortness of breath, chest pain or calf pain. Denies any other pedal complaints PAST MEDICAL HISTORY Diagnosis Date Asthma (HCC) Left foot pain Prostate cancer (HCC) Rheumatoid arthritis Right foot pain Current Outpatient Medications Medication Sig ACTEMRA ACTPEN 162 mg/0.9 mL 1 injection Subcutaneous weekly for 28 days gabapentin (NEURONTIN) 300 mg capsule Take 2 capsules by mouth daily at bedtime for 90 days. gabapentin (NEURONTIN) 600 mg tablet Take 1 tablet by mouth once daily for 90 days. gabapentin (NEURONTIN) 400 mg capsule Take 1 capsule by mouth daily at bedtime for 90 days. DULoxetine (CYMBALTA) 30 mg capsule Take 30 mg by mouth once daily. hydrOXYchloroQUINE (PLAQUENIL) 200 mg tablet linezolid (ZYVOX) 600 mg tablet budesonide/formoterol fumarate (SYMBICORT INHALATION) Inhale as instructed. tiotropium bromide (SPIRIVA RESPIMAT INHALATION) Inhale as instructed. leflunomide (ARAVA) 20 mg tablet Take 20 mg by mouth once daily. doxycycline hyclate (VIBRAMYCIN) 100 mg capsule Take 100 mg by mouth twice daily. Risedronate 150 mg tablet Take 150 mg by mouth once every month. In AM with cup of water on empty stomach. Nothing else by mouth and stay upright for 30 min. methotrexate sodium 25 mg/mL soln once each week. montelukast (SINGULAIR) 10 mg tablet once daily. folic acid 1 mg tablet once daily. amoxicillin (POLYMOX, AMOXIL) 500 mg capsule once daily. (Patient not taking: Reported on 03/31/2021 ) BD TUBERCULIN SYRINGE 1 mL 25 x 5/8 syrg Multivitamin capsule Take 1 capsule by mouth once daily. GLUCOSAMINE/CHONDROITIN SULF A (GLUCOSAMINE-CHONDROITIN ORAL) Take by mouth. mometasone (NASONEX) 50 mcg/actuation nasal spray Use 2 Sprays in the nose once daily. No current facility-administered medications for this visit. ALLERGIES Allergen Reactions Gluten Shortness of Breath Peanuts Shortness of Breath Yeast, Dried Shortness of Breath Objective: Patient presents weightbearing as tolerated to left leg. Problem focus examination to the left lower extremity: Incision site is well coapted without evidence of dehiscence. Mild erythema and edema surrounding surgical site. No drainage. No lymphadenopathy. No lymphangitis. No surrounding cellulitis. No signs of infection. Second toe sore on right foot with small clear discharge. Patient has no pain to palpation of calf. The calf is soft, supple and nontender without evidence of DVT. Negative Siat's test. Satisfactory alignment is noted. Pedal pulses are palpable. Capillary refill time is less than three seconds to all digits. Sensations are intact to light touch. General foot morphology: decreased medial longitudinal arch with plantar prominence at midfoot. 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 +4/5 muscle strength Dorsiflexion, Plantarflexion, Inversion, Eversion, no DF strength to LLE, limited PF strength. No palpable dell noted to achilles tendon. Non palpable AT tendon concerning for chronic rupture. Foot drop noted of LLE. No tenderness to palpation of left achilles tendon at mid substance level. No palpable dells. Negative ignacio test. Tenderness to palpation of left forefoot and midfoot improved since last exam. ROM of the 1st MTPJ is decreased without pain or crepitus. ROM of the MTJ/STJ is decreased without pain or crepitus. Ankle joint ROM is decreased with pain on palpation noted to the left > right. No erythema or edema about the plantar midfoot right. No pain on palpation of left 2nd metatarsal bone. Results MRI ANKLE WO IVCON LEFT (Acc#[id number]) (Order [id number]) Impression IMPRESSION: 1. Hindfoot/midfoot degenerative changes. 2. Low-grade Achilles tendinosis. 3. Plantar fasciitis with low-grade interstitial tear and calcaneal spur. 4. Short segment thickening/tendinosis anterior tibialis tendon. 5. Diffuse soft tissue edema about the ankle and dorsal foot. URIC ACID Order: [id number] Status: Final result Dx: Acute left ankle pain Test Result Released: Yes (not seen) 0 Result Notes Component Ref Range AND Units 1 mo ago Uric Acid 4.0 - 8.1 mg/dL 4.3 [facility] (more content not included)...[facility]04-17-2025 NoteHNO ID: [id number] Author: MCKINLEY GUZMAN DPM Service: ? Author Type: Physician Type: Progress Notes Filed: 12/08/2024 10:51 Note Text: DOS: 08/18/2024 POD: 73 days Procedure: second metatarsal ORIF, left foot This 74 year old male presents for a post op visit. Patient states they are doing well. Pain is well controlled. Patient states that his left ankle has been bothering him still and is actually worse. He has been unable to use the knee scooter. States it has been swelling. He is unable to wear the crowboot due to the awkard angle it places his ankle in. Has been in cutsom braces. Which helps a little. Has been weightbearing as tolerated to the left lower extremity. Denies any current nausea, vomiting, fever, chills, shortness of breath, chest pain or calf pain. Denies any other pedal complaints. Also discloated right shoulder two weeks ago and is in a sling. PAST MEDICAL HISTORY Diagnosis Date Asthma (HCC) Left foot pain Prostate cancer (HCC) Rheumatoid arthritis Right foot pain Current Outpatient Medications Medication Sig ACTEMRA ACTPEN 162 mg/0.9 mL 1 injection Subcutaneous weekly for 28 days gabapentin (NEURONTIN) 300 mg capsule Take 2 capsules by mouth daily at bedtime for 90 days. predniSONE (DELTASONE) 10 mg tablet Take 1 tablet by mouth once daily. Take Q8H for 4 days, Take Q12H for 4, Take Q24 for 5 days DULoxetine (CYMBALTA) 30 mg capsule Take 30 mg by mouth once daily. hydrOXYchloroQUINE (PLAQUENIL) 200 mg tablet linezolid (ZYVOX) 600 mg tablet budesonide/formoterol fumarate (SYMBICORT INHALATION) Inhale as instructed. tiotropium bromide (SPIRIVA RESPIMAT INHALATION) Inhale as instructed. leflunomide (ARAVA) 20 mg tablet Take 20 mg by mouth once daily. Risedronate 150 mg tablet Take 150 mg by mouth once every month. In AM with cup of water on empty stomach. Nothing else by mouth and stay upright for 30 min. montelukast (SINGULAIR) 10 mg tablet once daily. folic acid 1 mg tablet once daily. Multivitamin capsule Take 1 capsule by mouth once daily. mometasone (NASONEX) 50 mcg/actuation nasal spray Use 2 Sprays in the nose once daily. gabapentin (NEURONTIN) 600 mg tablet Take 1 tablet by mouth once daily for 90 days. gabapentin (NEURONTIN) 400 mg capsule Take 1 capsule by mouth daily at bedtime for 90 days. doxycycline hyclate (VIBRAMYCIN) 100 mg capsule Take 100 mg by mouth twice daily. methotrexate sodium 25 mg/mL soln once each week. amoxicillin (POLYMOX, AMOXIL) 500 mg capsule once daily. (Patient not taking: Reported on 03/31/2021 ) predniSONE (DELTASONE) 5 mg tablet twice daily. (Patient not taking: Reported on 03/31/2021 ) BD TUBERCULIN SYRINGE 1 mL 25 x 58 syrg GLUCOSAMINE/CHONDROITIN SULF A (GLUCOSAMINE-CHONDROITIN ORAL) Take by mouth. No current facility-administered medications for this visit. ALLERGIES Allergen Reactions Gluten Shortness of Breath Peanuts Shortness of Breath Yeast, Dried Shortness of Breath Objective: Patient presents weightbearing as tolerated to left leg. Problem focus examination to the left lower extremity: Incision site is well coapted without evidence of dehiscence. Mild erythema and edema surrounding surgical site. No drainage. No lymphadenopathy. No lymphangitis. No surrounding cellulitis. No signs of infection. Patient has no pain to palpation of calf. The calf is soft, supple and nontender without evidence of DVT. Negative Sita's test. Satisfactory alignment is noted. Pedal pulses are palpable. Capillary refill time is less than three seconds to all digits. Sensations are intact to light touch. General foot morphology: decreased medial longitudinal arch with plantar prominence at midfoot. 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 +4/5 muscle strength Dorsiflexion, Plantarflexion, Inversion, Eversion, no DF strength to LLE, limited PF strength. Foot drop noted of LLE. Positive pain noted to palpation along the peroneal tendon course posterior and inferior to the lateral malleolus extending to the insertion at the 5th metatarsal base left foot. There is no pain to palpation to the styloid process of the fifth metatarsal base. Pain is noted on resisted eversion of the foot. Mild pain with resisted plantarflexion of the foot. There is swelling noted along the path of the peroneal tendons. No peroneal subluxation appreciated. No pain is noted with palpation of the sinus tarsi. Pain to lateral ankle gutter left foot. No pain on palpation of left 2nd metatarsal bone. 10/30/24: left ankle radiographs (three views: AP/mortise/lateral; weight-bearing) were performed and examined today. Personal radiographic evaluation finds no acute fracture or dislocation. Joint spaces are preserved. Bone density appears appropriate for the patient's age. Ankle mortise intact. No gas in the soft tissues. No focal soft tissue swelling. 10/30/24: left foot radiographs (three views: AP/ (more content not included)... [facility]04-03-2025 History of Present illness Narrative* Meme Foreman RT(R) - 11/13/2024 9:15 AM EDT Radiology Service Progress Note PATIENT NAME: Shivani Bonilla DATE OF SERVICE: November 13, 2024 TIME: 9:38 AM PATIENT IDENTITY VERIFICATION COMPLETED USING TWO (2) IDENTIFIERS: Name and Date of confirmedby patient verbally. FALL SCREENING: Has the patient had 2 falls in the last year or 1 fall with injury or currently using an Ambulatory Assistive Device (Walker, Cane, Wheelchair, Crutches, etc.)? No PATIENT GENDER DATA: Assigned male at PATIENT RELEVANT IMPLANT DATA REVIEWED: Not Applicable PATIENT PRESENTS WITH AN IMPLANTABLE OR ATTACHED CONFERENCE ORGANIZER: No RADIOLOGY DEPARTMENT: MR; Exam(s) Completed: Lower MSK: Ankle/Hind Foot, left PERIPHERAL IV DATA: Not applicable SIGNED BY: Rylan IRELAND(R) November 13, 2024 9:38 AM documented in this encounterCleveland [id number] NoteHNO ID: [id number] Author: MEME FOREMAN RT(R) Service: Radiology Author Type: Technologist Type: Progress Notes Filed: 11/13/2024 09:38 Note Text: Radiology Service Progress Note PATIENT NAME: Shivani Bonilla DATE OF SERVICE: November 13, 2024 TIME: 9:38 AM PATIENT IDENTITY VERIFICATION COMPLETED USING TWO (2) IDENTIFIERS: Name and Date of confirmed by patient verbally. FALL SCREENING: Has the patient had 2 falls in the last year or 1 fall with injury or currently using an Ambulatory Assistive Device (Walker, Cane, Wheelchair, Crutches, etc.)? No PATIENT GENDER DATA: Assigned male at PATIENT RELEVANT IMPLANT DATA REVIEWED: Not Applicable PATIENT PRESENTS WITH AN IMPLANTABLE OR ATTACHED CONFERENCE ORGANIZER: No RADIOLOGY DEPARTMENT: MR; Exam(s) Completed: Lower MSK: Ankle/Hind Foot, left PERIPHERAL IV DATA: Not applicable SIGNED BY: Rylan IRELAND(R) November 13, 2024 9:38 [facility]03-30-2025 Discharge summary [facility] Medical Records Department [address] [place] [address] Emergency Department Summary 11/09/24 MR#: [id number] Acct: [id number] Name: SHIVANI BONILLA Rep #:[id number] : 1950 74 From: Walter Valdes PCP: Dr. Ganga Acosta DO Status:RE G ER Location: ED HPI History of Present Illness Chief Complaint: Dislocation Informant: patient and spouse/S.O. Narrative Narrative: Right shoulder dislocation. History of reverse shoulder repair August 2023 with revision October [address] Durand. States doing well had a follow-up a week ago. Today 2 PM was reaching backwhen he felt it pop forward. No direct traumas. Last meal at noon. Took 2 Tylenol's. History of asthma. Reports that the dislocation that led to his revision a year ago. Denies any cardiac history. Denies any complications with anesthesia. Prior similar symptoms: Yes PFSH PFS Medical History Polyneuropathy Cancer Fatigue Skin cancer Glaucoma Carpal tunnel syndrome Cataracts, bilateral Wears glasses Cancer History of steroid therapy Arthritis Kidney stones Gastric reflux Non-smoker CPAP (continuous positive airway pressure) dependence Sleep apnea Shortness of breath on exertion History of echocardiogram History of stress test Cardiology follow-up encounter Neuropathy KEZIA treated with BiPAP Moderate persistent allergic asthma without complication Asbestos exposure GERD (gastroesophageal reflux disease) BPH (benign prostatic hyperplasia) Osteopenia Osteoarthritis DDD (degenerative disc disease), cervical Gastric ulcer Obesity Rheumatoid arthritis Kidney stones Prostate cancer Home Medications ?Medication ?Instructions ?Recorded ?Last Taken ?Type risedronate 150 mg tablet 150 mg PO QMONTH BONES 11/2510/11/22 History hydroxychloroquine 200 mg tablet 200 mg PO DAILY arthr itis 01/05/21 Unknown History (Plaquenil) albuterol sulfate 90 mcg/actuation 2 inh inhalation Q6 H PRN ASTHMA #3 10/05/21 Unknown Rx aerosol inhaler ea azelastine 137 mcg (0.1 %) nasal 2 spray intranasal BI D breathing 12/26/21 Unknown History spray cholecalciferol (vitamin D3) 50 50 mcg PO DAILY supple ment 12/27/21 Unknown History mcg (2,000 unit) capsule leflunomide 20 mg tablet 20 mg PO DAILY arthritis 12/02 Unknown History multivitamin (Multiple Vitamins 1 tab PO DAILY supplem ent 05/16/22 Unknown History tablet) gabapentin 100 mg capsule 400 mg PO QHS pain 09/18/22 Unknown History flurbiprofen 100 mg tablet 100 mg PO DAILY PRN pain #9 0 tabs 12/19/22 Unknown Rx famotidine 20 mg tablet 20 mg PO QDAY 04/02/24 Unkno wn History budesonide-formoterol HFA 160 2 inh inhalation BID abdiel athing #3 04/08/24 Unknown Rx mcg-4.5 mcg/actuation aerosol ea inhaler (Symbicort) amoxicillin 875 mg-potassium 1 tab PO BID #20 tabs 12/04 Unknown Rx clavulanate 125 mg tablet prednisone 10 mg tablet 10 mg PO QDAY #30 tabs 07/16 Unknown Rx fluticasone propionate 50 2 spray intranasal DAILY #3 ea 09/09/24 Unknown Rx mcg/actuation nasal spray,suspension tiotropium bromide 1.25 2 inh inhalation DAILY BREAT NICKI 09/26/24 Unknown Rx mcg/actuation mist for inhalation #3 device (Spiriva Respimat) montelukast 10 mg tablet 10 mg PO QPM sinuses #90 tab s 10/02/24 Unknown Rx Allergy/AdvReac Type Severity Reaction Status Date / Time doxycycline AdvReac Intermediate Hives Verified 11/09/24 15:54 Environmental Allergies: AdvReac Intermediate Other Verified 11/09/24 15:54 Uncoded Family History Mother Heart disease CHF atrial fib Sister Hypertension Surgical History History of shoulder replacement History of cardiac catheterization Hx of colonoscopy Hx of foot surgery History of removal of retained hardware History of tonsillectomy History of rhinoplasty History of total knee arthroplasty H/O prostatectomy History of inguinal hernia repair History of carpal tunnel release History of left heart catheterization (07/23/18) Social History household members: spouse Smoking Status: Never smoker second hand exposure: No alcohol intake: never substance use type: does not use what type of physical activity do you participate in: none drea/mosque: [employer] seatbelt use: always ROS ROS ED Constitutional Constitutional ED: Denies chills, fever(s) or sweats ENT ENT ED: Denies sore throat Cardiovascular Cardiovascular: Denies chest pain, leg edema, palpitations or racing heartbeat Respiratory/Chest Respiratory/Chest: Denies cough, dyspnea or dyspnea on exertion Gastrointestinal Gastrointestinal: Denies abdominal pain, diarrhea, nausea or vomiting Genitourinary Genitourinary ED: Denies dysuria, hematuria or urinary frequency Musculoskeletal Musculoskeletal: Reports extremity pain; Denies back pain or neck pain Integumentary Denies rash or wounds Neurologic Neurologic: Denies headache(s), paresthesias or weakness EXAM Physical Exam Const Vital Signs: 11/09/24 15:52 Temperature 95.9 F L Temperature Source Temporal Pulse Rate 74 Respiratory Rate 20 H Blood Pressure 151/97 H Blood Pressure Mean 115 Pulse Ox 94 Oxygen Delivery Method Room Air Positive well nourished and well developed General Appearance ED: well developed and NAD HEENT Reports moist mucous membranes normocephalic and atraumatic Eyes General Eye ED: Yes normal appearance of both eyes Neck full ROM Chest Wall Chest: Negative for tenderness Resp normal respiratory effort and normal air movement Effort and Inspection: symmetric chest movement; Negative for respiratory distress Cardio regular rate, regular rhythm and no murmurs Peripheral Pulses: pulses 2+ throughout GI normal to inspection, nondistended, normoactive bowel sounds and non-tender Palpation: Negative for guarding or rebound tenderness present Extremity Extremity Narrative: Patient had a right upper extremity sling, has deformities with anterior bulge at the shoulder. Skin intact. No tenderness of the humerus. General Extremety ED: Yes tenderness; Negative for edema General Extremity: Negative for edema Neuro oriented x3 and no sensory deficits noted Sensorium / Orientation: awake and alert Skin no rashes or lesions noted and no wounds MDM MDM MDM Narrative Medical decision making narrative: Interventions / MDM: Differential diagnosis: Dislocation, history of reverse shoulder repair Diagnosis considered but do not suspect: N/A My EKG interpretation: N/A Imaging independently reviewed and interpreted by myself: Three-view x-ray rightshoulder: Anterior dislocation of prosthesis. Also read by radiologist. No fractures. Post reduction 2 view shoulder: Reduce in appropriate position. External documents reviewed: N/A Test considered but not ordered:N/A ED course: Patient clinical dislocation anteriorly. IV established for pain medicines, will sent for x-rays. X-ray confirms dislocation. Consent obtained for reduction with conscious sedation. 1649: After break consent risk and benefit discussed. Patient placed on cardiacmonitor IV fluids capnography and oxygenation. Timeout performed, a total of 50mg propofol was given IV. He was sinus rhythm on the monitor. Blood pressure stable. Nursing provided traction with a bedsheet, gentle traction of the rightshoulder, immediate relocation of the shoulder and improved deformity. He was placed in his home sling, Sushant wrap used for swath. Pulse intact distally post reduction. Post reduction x-ray ordered. Total sedation time 5 minutes. 1800: Reevaluated way back to his normal self. Pain improved with reduction. Postreduction films reviewed, relocated. Patient maintain sling and swath. Discussed no signing legal contracts today. He will follow-up with his orthopedist Dr. Durand. All questions were answered. Re-evaluation: stable Disposition discussed with patient/family/significant other: Patient and spouse Case discussed with consulting clinician: N/A This note was generated with Dragon dictation software. It may contain incorrectwords, spelling, and punctuation that were not noted in checking the note beforesigning. 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 Instructions: ED Procedural Sedation, (Adult), ED Dislocation: Shoulder (Reduced) Prescriptions: No Action albuterol sulfate 90 mcg/actuation HFA aerosol inhaler 2 inh inhalation Q6H PRN (Reason: ASTHMA) Qty: 3 3RF azelastine 137 mcg (0.1 %) aerosol,spray 2 spray intranasal BID Rx Instructions: administer into each nostril cholecalciferol (vitamin D3) 50 mcg (2,000 unit) capsule 50 mcg PO DAILY leflunomide 20 mg tablet 20 mg PO DAILY multivitamin [Multiple Vitamins] Tablet 1 tab PO DAILY gabapentin 100 mg capsule 400 mg PO QHS flurbiprofen 100 mg tablet 100 mg PO DAILY PRN (Reason: pain) Qty: 90 3RF famotidine 20 mg tablet 20 mg PO QDAY prednisone 10 mg tablet 10 mg PO QDAY Qty: 30 0RF Rx Instructions: take 4 tabs for three days, then 3 tabs for three days, then 2 tabs for threedays, then 1 tab for 3days amoxicillin-pot clavulanate 875-125 mg tablet 1 tab PO BID Qty: 20 0RF risedronate 150 MG tablet 150 mg PO QMONTH Rx Instructions: first day of the month hydroxychloroquine [Plaquenil] 200 mg Tablet 200 mg PO DAILY budesonide-formoterol [Symbicort] 160-4.5 mcg/actuation HFA aerosol inhaler 2 inh inhalation BID Qty: 3 3RF fluticasone propionate 50 mcg/actuation spray,suspension 2 spray intranasal DAILY Qty: 3 3RF Rx Instructions: administer into each nostril Spiriva Respimat 1.25 mcg/actuation mist 2 inh INHALATION DAILY Qty: 3 3RF montelukast 10 mg tablet 10 mg PO QPM Qty: 90 3RF Primary Care Provider: Ganga Acosta Referrals: Ganga Acosta DO [Primary Care Provider] - Joe Durand MD [Med Staff - Active Staff] - 1 Day Activity Restrictions/Additional Instructions: Shoulder reduced. Continue sling and swath. Call Dr. Durand's office tomorrow for follow-up and reevaluation. Print Language: Jordanian Disposition Disposition: Home, Self Care What to do if you have Problems For any increased pain, shortness of breath, bleeding, nausea or vomiting, chestpain, or any unexpected problems, contact your Primary Care Provider. Call [facility] ([phone]) or report tothe closest Emergency Room. Call 911 if necessary. 11/09/24 1808 Cosigner Signature (if applicable): CC: Dr. Ganga Acosta DO; Dr. Joe Durand MD ~ Signed [facility]03-30-2025 Radiology Diagnostic study note [facility] Imaging Services [address] [place] [id number] Shoulder min 2 Views MR#: [id number] Acct: [id number] Name: SHIVANI BONILLA Rep #: [id number] : 1950 M 74 From: Barbara Cazares MD PCP: Dr. Ganga Acosta DO Status: CT E ER Study:Shoulder min 2 Views Date of Exam: 11/09/24 Exam# [id number] Ordering Dr: Walter Gallagher DO PROCEDURE: SHOULDER MIN 2 VIEWS 11/09/2024 REASON FOR EXAM: RELOCATION Check following reduction. TECHNIQUE: One (2) views of the right shoulder COMPARISON: Earlier study dated 11/09/2024. FINDINGS: Bones: Right total humeral arthroplasty in good alignment following reduction. Soft tissues: Unremarkable. Other: Cardiac monitoring lead. RAD/Shoulder min 2 Views IMPRESSION: Satisfactory postreduction films of the right total humeral arthroplasty. Reading Location: [facility] CC: Dr. Ganga Acosta DO; Dr. Walter Gallaghre DO ~ Fabric Sourcer: Signed [facility]03-30-2025 Radiology Diagnostic study note [facility] Imaging Services [address] [place] [address] Shoulder min 2 Views MR#: [id number] Acct: [id number] Name: SHIVANI BONILLA Rep #: [id number] : 1950 M 74 From: Barbara Cazares MD PCP: Dr. Ganga Acosta DO Status: CT E ER Study:Shoulder min 2 Views Date of Exam: 11/09/24 Exam# [id number] Ordering Dr: Walter Gallagher DO PROCEDURE: RIGHT SHOULDER, TWO VIEWS 11/09/2024 REASON FOR EXAM: DISLOCATION TECHNIQUE: Two views of the right shoulder. COMPARISON: No relevant prior. FINDINGS: Bones: Right total humeral arthroplasty. No periprosthetic fractures. Joints: Anterior dislocation of the head of the prosthesis. Soft tissues: Swelling. Other: No other significant findings. RAD/Shoulder min 2 Views IMPRESSION: Right total humeral prosthesis. Anterior dislocation of the head of the humeral prosthesis. Reading Location: [facility] CC: Dr. Ganga Acosta DO; Dr. Walter Gallagher DO ~ Fabric Sourcer: Signed [facility]03-30-2025 Discharge summary Author Walter Gallagher [facility] Note Date/Time November 09, 2024 6:0 8pm [facility] Medical Records Department [address] [place] [address] Emergency Department Summary 11/09/24 MR#: [id number] Acct: [id number] Name: SHIVANI BONILLA Rep #:[id number] : 1950 74 From: Walter Valdes PCP: Dr. Ganga Acosta DO Status:RE G ER Location: ED HPI History of Present Illness Chief Complaint: Dislocation Informant: patient and spouse/S.O. Narrative Narrative: Right shoulder dislocation. History of reverse shoulder repair August 2023 with revision October [address] Durand. States doing well had a follow-up a week ago. Today 2 PM was reaching back when he felt it pop forward. No direct traumas. Last meal at noon. Took 2 Tylenol's. History of asthma. Reports that the dislocation that led to his revision a year ago. Denies any cardiac history. Denies any complications with anesthesia. Prior similar symptoms: Yes [facility] Medical History Polyneuropathy Cancer Fatigue Skin cancer Glaucoma Carpal tunnel syndrome Cataracts, bilateral Wears glasses Cancer History of steroid therapy Arthritis Kidney stones Gastric reflux Non-smoker CPAP (continuous positive airway pressure) dependence Sleep apnea Shortness of breath on exertion History of echocardiogram History of stress test Cardiology follow-up encounter Neuropathy KEZIA treated with BiPAP Moderate persistent allergic asthma without complication Asbestos exposure GERD (gastroesophageal reflux disease) BPH (benign prostatic hyperplasia) Osteopenia Osteoarthritis DDD (degenerative disc disease), cervical Gastric ulcer Obesity Rheumatoid arthritis Kidney stones Prostate cancer Home Medications ?Medication ?Instructions ?Recorded ?Last Taken ?Type risedronate 150 mg tablet 150 mg PO QMONTH BONES 11/2510/11/22 History hydroxychloroquine 200 mg tablet 200 mg PO DAILY arthr itis 01/05/21 Unknown History (Plaquenil) albuterol sulfate 90 mcg/actuation 2 inh inhalation Q6 H PRN ASTHMA #3 10/05/21 Unknown Rx aerosol inhaler ea azelastine 137 mcg (0.1 %) nasal 2 spray intranasal BI D breathing 12/26/21 Unknown History spray cholecalciferol (vitamin D3) 50 50 mcg PO DAILY supple ment 12/27/21 Unknown History mcg (2,000 unit) capsule leflunomide 20 mg tablet 20 mg PO DAILY arthritis 12/02 Unknown History multivitamin (Multiple Vitamins 1 tab PO DAILY supplem ent 05/16/22 Unknown History tablet) gabapentin 100 mg capsule 400 mg PO QHS pain 09/18/22 Unknown History flurbiprofen 100 mg tablet 100 mg PO DAILY PRN pain #9 0 tabs 12/19/22 Unknown Rx famotidine 20 mg tablet 20 mg PO QDAY 04/02/24 Unkno wn History budesonide-formoterol HFA 160 2 inh inhalation BID abdiel athing #3 04/08/24 Unknown Rx mcg-4.5 mcg/actuation aerosol ea inhaler (Symbicort) amoxicillin 875 mg-potassium 1 tab PO BID #20 tabs 12/04 Unknown Rx clavulanate 125 mg tablet prednisone 10 mg tablet 10 mg PO QDAY #30 tabs 07/16 Unknown Rx fluticasone propionate 50 2 spray intranasal DAILY #3 ea 09/09/24 Unknown Rx mcg/actuation nasal spray,suspension tiotropium bromide 1.25 2 inh inhalation DAILY BREAT NICKI 09/26/24 Unknown Rx mcg/actuation mist for inhalation #3 device (Spiriva Respimat) montelukast 10 mg tablet 10 mg PO QPM sinuses #90 tab s 10/02/24 Unknown Rx Allergy/AdvReac Type Severity Reaction Status Date / Time doxycycline AdvReac Intermediate Hives Verified 11/09/24 15:54 Environmental Allergies: AdvReac Intermediate Other Verified 11/09/24 15:54 Uncoded Family History Mother Heart disease CHF atrial fib Sister Hypertension Surgical History History of shoulder replacement History of cardiac catheterization Hx of colonoscopy Hx of foot surgery History of removal of retained hardware History of tonsillectomy History of rhinoplasty History of total knee arthroplasty H/O prostatectomy History of inguinal hernia repair History of carpal tunnel release History of left heart catheterization (07/23/18) Social History household members: spouse Smoking Status: Never smoker second hand exposure: No alcohol intake: never substance use type: does not use what type of physical activity do you participate in: none 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/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: Latter Day seatbelt use: always ROS ROS ED Constitutional Constitutional ED: Denies chills, fever(s) or sweats ENT ENT ED: Denies sore throat Cardiovascular Cardiovascular: Denies chest pain, leg edema, palpitations or racing heartbeat Respiratory/Chest Respiratory/Chest: Denies cough, dyspnea or dyspnea on exertion Gastrointestinal Gastrointestinal: Denies abdominal pain, diarrhea, nausea or vomiting Genitourinary Genitourinary ED: Denies dysuria, hematuria or urinary frequency Musculoskeletal Musculoskeletal: Reports extremity pain; Denies back pain or neck pain Integumentary Denies rash or wounds Neurologic Neurologic: Denies headache(s), paresthesias or weakness EXAM Physical Exam Const Vital Signs: 11/09/24 15:52 Temperature 95.9 F L Temperature Source Temporal Pulse Rate 74 Respiratory Rate 20 H Blood Pressure 151/97 H Blood Pressure Mean 115 Pulse Ox 94 Oxygen Delivery Method Room Air Positive well nourished and well developed General Appearance ED: well developed and NAD HEENT Reports moist mucous membranes normocephalic and atraumatic Eyes General Eye ED: Yes normal appearance of both eyes Neck full ROM Chest Wall Chest: Negative for tenderness Resp normal respiratory effort and normal air movement Effort and Inspection: symmetric chest movement; Negative for respiratory distress Cardio regular rate, regular rhythm and no murmurs Peripheral Pulses: pulses 2+ throughout GI normal to inspection, nondistended, normoactive bowel sounds and non-tender Palpation: Negative for guarding or rebound tenderness present Extremity Extremity Narrative: Patient had a right upper extremity sling, has deformities with anterior bulge at the shoulder. Skin intact. No tenderness of the humerus. General Extremety ED: Yes tenderness; Negative for edema General Extremity: Negative for edema Neuro oriented x3 and no sensory deficits noted Sensorium / Orientation: awake and alert Skin no rashes or lesions noted and no wounds MDM MDM MDM Narrative Medical decision making narrative: Interventions / MDM: Differential diagnosis: Dislocation, history of reverse shoulder repair Diagnosis considered but do not suspect: N/A My EKG interpretation: N/A Imaging independently reviewed and interpreted by myself: Three-view x-ray rightshoulder: Anterior dislocation of prosthesis. Also read by radiologist. No fractures. Post reduction 2 view shoulder: Reduce in appropriate position. External documents reviewed: N/A Test considered but not ordered:N/A ED course: Patient clinical dislocation anteriorly. IV established for pain medicines, will sent for x-rays. X-ray confirms dislocation. Consent obtained for reduction with conscious sedation. 1649: After break consent risk and benefit discussed. Patient placed on cardiacmonitor IV fluids capnography and oxygenation. Timeout performed, a total of 50mg propofol was given IV. He was sinus rhythm on the monitor. Blood pressure stable. Nursing provided traction with a bedsheet, gentle traction of the rightshoulder, immediate relocation of the shoulder and improved deformity. He was placed in his home sling, Sushant wrap used for swath. Pulse intact distally post reduction. Post reduction x-ray ordered. Total sedation time 5 minutes. 1800: Reevaluated way back to his normal self. Pain improved with reduction. Postreduction films reviewed, relocated. Patient maintain sling and swath. Discussed no signing legal contracts today. He will follow-up with his orthopedist Dr. Durand. All questions were answered. Re-evaluation: stable Disposition discussed with patient/family/significant other: Patient and spouse Case discussed with consulting clinician: N/A This note was generated with [employer] software. It may contain incorrectwords, spelling, and punctuation that were not noted in checking the note beforesigning. 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 Instructions: ED Procedural Sedation, (Adult), ED Dislocation: Shoulder (Reduced) Prescriptions: No Action albuterol sulfate 90 mcg/actuation HFA aerosol inhaler 2 inh inhalation Q6H PRN (Reason: ASTHMA) Qty: 3 3RF azelastine 137 mcg (0.1 %) aerosol,spray 2 spray intranasal BID Rx Instructions: administer into each nostril cholecalciferol (vitamin D3) 50 mcg (2,000 unit) capsule 50 mcg PO DAILY leflunomide 20 mg tablet 20 mg PO DAILY multivitamin [Multiple Vitamins] Tablet 1 tab PO DAILY gabapentin 100 mg capsule 400 mg PO QHS flurbiprofen 100 mg tablet 100 mg PO DAILY PRN (Reason: pain) Qty: 90 3RF famotidine 20 mg tablet 20 mg PO QDAY prednisone 10 mg tablet 10 mg PO QDAY Qty: 30 0RF Rx Instructions: take 4 tabs for three days, then 3 tabs for three days, then 2 tabs for threedays, then 1 tab for 3 days amoxicillin-pot clavulanate 875-125 mg tablet 1 tab PO BID Qty: 20 0RF risedronate 150 MG tablet 150 mg PO QMONTH Rx Instructions: first day of the month hydroxychloroquine [Plaquenil] 200 mg Tablet 200 mg PO DAILY budesonide-formoterol [Symbicort] 160-4.5 mcg/actuation HFA aerosol inhaler 2 inh inhalation BID Qty: 3 3RF fluticasone propionate 50 mcg/actuation spray,suspension 2 spray intranasal DAILY Qty: 3 3RF Rx Instructions: administer into each nostril Spiriva Respimat 1.25 mcg/actuation mist 2 inh INHALATION DAILY Qty: 3 3RF montelukast 10 mg tablet 10 mg PO QPM Qty: 90 3RF Primary Care Provider: Ganga Acosta Referrals: Ganga Acosta DO [Primary Care Provider] - Joe Durand MD [Med Staff - Active Staff] - 1 Day Activity Restrictions/Additional Instructions: Shoulder reduced. Continue sling and swath. Call Dr. Durand's office tomorrow for follow-up and reevaluation. Print Language: Jordanian Disposition Disposition: Home, Self Care What to do if you have Problems For any increased pain, shortness of breath, bleeding, nausea or vomiting, chestpain, or any unexpected problems, contact your Primary Care Provider. Call [facility] ([phone]) or report to the closest Emergency Room. Call 911 if necessary. 11/09/24 180 <Electronically signed by Walter Valdes> Cosigner Signature (if applicable): CC: Dr. Ganga Acosta DO; Dr. Joe Durand MD ~ Signed [facility] Work Phone: [phone] Instructions* Patient Instructions* Estela Biggs DPM - 10/30/2024 11:40 AM EDT - MRI ordered to evaluate underlying ankle pathology - Continue WBAT in [facility] - Follow up after MRI. [facility] NoteHNO ID: [id number] Author: JEAN HARDY Tech Service: ? Author Type: Policy Issue Clerk Type: Progress Notes Filed: 10/31/2024 16:17 Note Text: REVIEW OF SYSTEMS: GENERAL: Well developed, well nourished. No acute distress PAIN: Negative for pain, history of chronic pain or current treatment for chronic pain conditions CARDIOVASCULAR: Negative for chest pain, leg swelling and palpations. MSK: Negative for joint swelling SKIN: Negative for lesions, rash, itching, metal sensitivity NEURO: Negative for seizure, trauma, numbness/tingling of extremities. ENDOCRINE: Negative for diabetic associated symptoms HEMATOLOGY: Negative for excessive bleeding, clots, bleeding disorders.[facility]03-20-2025 History of Present illness Narrative* Jean Hardy Tech - 10/30/2024 11:15 AM EDT REVIEW OF SYSTEMS: GENERAL: Well developed, well nourished. No acute distress PAIN: Negative for pain, history of chronic pain or current treatment for chronic pain conditions CARDIOVASCULAR: Negative for chest pain, leg swelling and palpations. MSK: Negative for joint swelling SKIN: Negative for lesions, rash, itching, metal sensitivity NEURO: Negative for seizure, trauma, numbness/tingling of extremities. ENDOCRINE: Negative for diabetic associated symptoms HEMATOLOGY: Negative for excessive bleeding, clots, bleeding disorders. * Mckinley Guzman DPM - 10/30/2024 11:15 AM EDT DOS: 08/18/2024 POD: 73 days Procedure: second metatarsal ORIF, left foot This 74 year old male presents for a post op visit. Patient states they are doing well. Pain is well controlled. Patient states that his left ankle has been bothering him more often and is relentless. Has been weightbearing as tolerated to the left lower extremity. Denies any current nausea, vomiting, fever, chills, shortness of breath, chest pain or calf pain. Denies any other pedal complaints PAST MEDICAL HISTORY Diagnosis Date Asthma Left foot pain Prostate cancer (HCC) Rheumatoid arthritis (HCC) Right foot pain Current Outpatient Medications Medication Sig gabapentin (NEURONTIN) 300 mg capsule Take 2 capsules by mouth daily at bedtime for 90 days. gabapentin (NEURONTIN) 600 mg tablet Take 1 tablet by mouth once daily for 90 days. gabapentin (NEURONTIN) 400 mg capsule Take 1 capsule by mouth daily at bedtime for 90 days. predniSONE (DELTASONE) 10 mg tablet Take 1 tablet by mouth once daily. Take Q8H for 4 days, Take Q12H for 4, Take Q24 for 5 days DULoxetine (CYMBALTA) 30 mg capsule Take 30 mg by mouth once daily. hydrOXYchloroQUINE (PLAQUENIL) 200 mg tablet linezolid (ZYVOX) 600 mg tablet budesonide/formoterol fumarate (SYMBICORT INHALATION) Inhale as instructed. tiotropium bromide (SPIRIVA RESPIMAT INHALATION) Inhale as instructed. leflunomide (ARAVA) 20 mg tablet Take 20 mg by mouth once daily. doxycycline hyclate (VIBRAMYCIN) 100 mg capsule Take 100 mg by mouth twice daily. Risedronate 150 mg tablet Take 150 mg by mouth once every month. In AM with cup of water on empty stomach. Nothing else by mouth and stay upright for 30 min. methotrexate sodium 25 mg/mL soln once each week. montelukast (SINGULAIR) 10 mg tablet once daily. folic acid 1 mg tablet once daily. amoxicillin (POLYMOX, AMOXIL) 500 mg capsule once daily. (Patient not taking: Reported on 03/31/2021 ) predniSONE (DELTASONE) 5 mg tablet twice daily. (Patient not taking: Reported on 03/31/2021 ) BD TUBERCULIN SYRINGE 1 mL 25 x 5/8 syrg Multivitamin capsule Take 1 capsule by mouth once daily. GLUCOSAMINE/CHONDROITIN SULF A (GLUCOSAMINE-CHONDROITIN ORAL) Take by mouth. mometasone (NASONEX) 50 mcg/actuation nasal spray Use 2 Sprays in the nose once daily. No current facility-administered medications for this visit. ALLERGIES Allergen Reactions Gluten Shortness of Breath Peanuts Shortness of Breath Yeast, Dried Shortness of Breath Objective: Patient presents weightbearing as tolerated to left leg. Problem focus examination to the left lower extremity: Incision site is well coapted without evidence of dehiscence. Mild erythema and edema surrounding surgical site. No drainage. No lymphadenopathy. No lymphangitis. No surrounding cellulitis. No signs of infection. Patient has no pain to palpation of calf. The calf is soft, supple and nontender without evidence of DVT. Negative Sita's test. Satisfactory alignment is noted. Pedal pulses are palpable. Capillary refill time is less than three seconds to all digits. Sensations are intact to light touch. General foot morphology: decreased medial longitudinal arch with plantar prominence at midfoot. 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 +4/5 muscle strength Dorsiflexion, Plantarflexion, Inversion, Eversion, no DF strength to LLE, limited PF strength. No palpable dell noted to achilles tendon. Non palpable AT tendon concerning for chronic rupture. Foot drop noted of LLE. No tenderness to palpation of left achilles tendon at mid substance level. No palpable dells. Negative ignacio test. Tenderness to palpation of left forefoot and midfoot improved since last exam. ROM of the 1st MTPJ is decreased without pain or crepitus. ROM of the MTJ/STJ is decreased without pain or crepitus. Ankle joint ROM is decreased. No erythema or edema about the plantar midfoot right. No pain on palpation of left 2nd metatarsal bone. 10/30/24: left ankle radiographs (three views: AP/mortise/lateral; weight- bearing) were performed and examined today. Personal radiographic evaluation finds no acute fracture or dislocation. Joint spaces are preserved. Bone density appears appropriate for the patient's age. Ankle mortise intact. Nogas in the soft tissues. No focal soft tissue swelling. 10/30/24: left foot radiographs (three views: AP/MO/lateral; weight-bearing) were performed and examined today. Personal radiographic evaluation: Status post 2nd metatarsal ORIF. Stable post-operative appearance. Hardware in normal position without evidence of failure or loosening. Position maintained. No acute destructive changes. No gas in the soft tissues. Assessment: Satisfactory post-operative progress, new onset ankle pain left. Plan: The patient was educated on clinical examination findings, postoperative prognosis and protocol. All questions were answered to patient's apparent satisfaction. - Patient to continue weightbearing as tolerated to the operative extremity. - MRI ordered to evaluate underlying ankle pathology - Continue WBAT in [place] boot - Follow up after MRI - CBC & Uric Acid ordered Adriane Biggs DPM PGY-3 I personally saw and evaluated the patient. I reviewed the resident's note. I agree with the resident's assessment and plan unless otherwise noted. Mckinley Guzman DPM, FACFAS documented in this encounterSt. [facility] [facility]25 NoteHNO ID: [id number] Author: MCKINLEY GUZMAN DPM Service: ? Author Type: Physician Type: Progress Notes Filed: 10/31/2024 16:17 Note Text: DOS: 08/18/2024 POD: 73 days Procedure: second metatarsal ORIF, left foot This 74 year old male presents for a post op visit. Patient states they are doing well. Pain is well controlled. Patient states that his left ankle has been bothering him more often and is relentless. Has been weightbearing as tolerated to the left lower extremity. Denies any current nausea, vomiting, fever, chills, shortness of breath, chest pain or calf pain. Denies any other pedal complaints PAST MEDICAL HISTORY Diagnosis Date Asthma Left foot pain Prostate cancer (HCC) Rheumatoid arthritis (HCC) Right foot pain Current Outpatient Medications Medication Sig gabapentin (NEURONTIN) 300 mg capsule Take 2 capsules by mouth daily at bedtime for 90 days. gabapentin (NEURONTIN) 600 mg tablet Take 1 tablet by mouth once daily for 90 days. gabapentin (NEURONTIN) 400 mg capsule Take 1 capsule by mouth daily at bedtime for 90 days. predniSONE (DELTASONE) 10 mg tablet Take 1 tablet by mouth once daily. Take Q8H for 4 days, Take Q12H for 4, Take Q24 for 5 days DULoxetine (CYMBALTA) 30 mg capsule Take 30 mg by mouth once daily. hydrOXYchloroQUINE (PLAQUENIL) 200 mg tablet linezolid (ZYVOX) 600 mg tablet budesonide/formoterol fumarate (SYMBICORT INHALATION) Inhale as instructed. tiotropium bromide (SPIRIVA RESPIMAT INHALATION) Inhale as instructed. leflunomide (ARAVA) 20 mg tablet Take 20 mg by mouth once daily. doxycycline hyclate (VIBRAMYCIN) 100 mg capsule Take 100 mg by mouth twice daily. Risedronate 150 mg tablet Take 150 mg by mouth once every month. In AM with cup of water on empty stomach. Nothing else by mouth and stay upright for 30 min. methotrexate sodium 25 mg/mL soln once each week. montelukast (SINGULAIR) 10 mg tablet once daily. folic acid 1 mg tablet once daily. amoxicillin (POLYMOX, AMOXIL) 500 mg capsule once daily. (Patient not taking: Reported on 03/31/2021 ) predniSONE (DELTASONE) 5 mg tablet twice daily. (Patient not taking: Reported on 03/31/2021 ) BD TUBERCULIN SYRINGE 1 mL 25 x 5/8 syrg Multivitamin capsule Take 1 capsule by mouth once daily. GLUCOSAMINE/CHONDROITIN SULF A (GLUCOSAMINE-CHONDROITIN ORAL) Take by mouth. mometasone (NASONEX) 50 mcg/actuation nasal spray Use 2 Sprays in the nose once daily. No current facility-administered medications for this visit. ALLERGIES Allergen Reactions Gluten Shortness of Breath Peanuts Shortness of Breath Yeast, Dried Shortness of Breath Objective: Patient presents weightbearing as tolerated to left leg. Problem focus examination to the left lower extremity: Incision site is well coapted without evidence of dehiscence. Mild erythema and edema surrounding surgical site. No drainage. No lymphadenopathy. No lymphangitis. No surrounding cellulitis. No signs of infection. Patient has no pain to palpation of calf. The calf is soft, supple and nontender without evidence of DVT. Negative Sita's test. Satisfactory alignment is noted. Pedal pulses are palpable. Capillary refill time is less than three seconds to all digits. Sensations are intact to light touch. General foot morphology: decreased medial longitudinal arch with plantar prominence at midfoot. 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 +4/5 muscle strength Dorsiflexion, Plantarflexion, Inversion, Eversion, no DF strength to LLE, limited PF strength. No palpable dell noted to achilles tendon. Non palpable AT tendon concerning for chronic rupture. Foot drop noted of LLE. No tenderness to palpation of left achilles tendon at mid substance level. No palpable dells. Negative ignacio test. Tenderness to palpation of left forefoot and midfoot improved since last exam. ROM of the 1st MTPJ is decreased without pain or crepitus. ROM of the MTJ/STJ is decreased without pain or crepitus. Ankle joint ROM is decreased. No erythema or edema about the plantar midfoot right. No pain on palpation of left 2nd metatarsal bone. 10/30/24: left ankle radiographs (three views: AP/mortise/lateral; weight-bearing) were performed and examined today. Personal radiographic evaluation finds no acute fracture or dislocation. Joint spaces are preserved. Bone density appears appropriate for the patient's age. Ankle mortise intact. No gas in the soft tissues. No focal soft tissue swelling. 10/30/24: left foot radiographs (three views: AP/MO/lateral; weight-bearing) were performed and examined today. Personal radiographic evaluation: Status post 2nd metatarsal ORIF. Stable post-operative appearance. Hardware in normal position without evidence of failure or loosening. Position maintained. No acute destructive changes. No gas in the soft tissues. Assessment: Satisfactory post-operative progress, new onset ankle pain left. Plan: (more content not included)...[facility]02-27-2025 History of Present illness Narrative* Mckinley Guzman DPM - 10/09/2024 10:45 AM EST DOS: 08/18/2024 POD: 52 days Procedure: second metatarsal ORIF, left foot This 74 year old male presents for a post op visit. Patient states they are doing well. Pain is well controlled. Has been weightbearing as tolerated to the left lower extremity in a [place] boot. He states after taking 10 steps he gets extreme pain around his left ankle area. He states when sleeping on his side the bone pushes on the mattress causing pain toward the ankle . He admits on having anklepain prior to surgery but has gotten worse. Denies any current nausea, vomiting, fever, chills, shortness of breath, chest pain or calf pain. Denies any other pedal complaints PAST MEDICAL HISTORY Diagnosis Date Asthma Left foot pain Prostate cancer (HCC) Rheumatoid arthritis (HCC) Right foot pain Current Outpatient Medications Medication Sig gabapentin (NEURONTIN) 300 mg capsule Take 2 capsules by mouth daily at bedtime for 90 days. gabapentin (NEURONTIN) 600 mg tablet Take 1 tablet by mouth once daily for 90 days. gabapentin (NEURONTIN) 400 mg capsule Take 1 capsule by mouth daily at bedtime for 90 days. predniSONE (DELTASONE) 10 mg tablet Take 1 tablet by mouth once daily. Take Q8H for 4 days, Take Q12H for 4, Take Q24 for 5 days DULoxetine (CYMBALTA) 30 mg capsule Take 30 mg by mouth once daily. hydrOXYchloroQUINE (PLAQUENIL) 200 mg tablet linezolid (ZYVOX) 600 mg tablet budesonide/formoterol fumarate (SYMBICORT INHALATION) Inhale as instructed. tiotropium bromide (SPIRIVA RESPIMAT INHALATION) Inhale as instructed. leflunomide (ARAVA) 20 mg tablet Take 20 mg by mouth once daily. doxycycline hyclate (VIBRAMYCIN) 100 mg capsule Take 100 mg by mouth twice daily. Risedronate 150 mg tablet Take 150 mg by mouth once every month. In AM with cup of water on empty stomach. Nothing else by mouth and stay upright for 30 min. methotrexate sodium 25 mg/mL soln once each week. montelukast (SINGULAIR) 10 mg tablet once daily. folic acid 1 mg tablet once daily. amoxicillin (POLYMOX, AMOXIL) 500 mg capsule once daily. (Patient not taking: Reported on 03/31/2021 ) predniSONE (DELTASONE) 5 mg tablet twice daily. (Patient not taking: Reported on 03/31/2021 ) BD TUBERCULIN SYRINGE 1 mL 25 x 5/8 syrg Multivitamin capsule Take 1 capsule by mouth once daily. GLUCOSAMINE/CHONDROITIN SULF A (GLUCOSAMINE-CHONDROITIN ORAL) Take by mouth. mometasone (NASONEX) 50 mcg/actuation nasal spray Use 2 Sprays in the nose once daily. No current facility-administered medications for this visit. ALLERGIES Allergen Reactions Gluten Shortness of Breath Peanuts Shortness of Breath Yeast, Dried Shortness of Breath Objective: Patient presents weightbearing as tolerated to left leg in [place] boot. Dressing is dry, clean, and intact with normal strike through noted. Problem focus examination to the left lower extremity: Incision site is well coapted without evidence of dehiscence. Mild erythema and edema surrounding surgical site. No drainage. No lymphadenopathy. No lymphangitis. No surrounding cellulitis. No signs of infection. Patient has no pain to palpation of calf. The calf is soft, supple and nontender without evidence of DVT. Negative Sita's test. Satisfactory alignment is noted. Pedal pulses are palpable. Capillary refill time is less than three seconds to all digits. Sensations are intact to light touch. Radiographs:3 views AP, MO, Lat left Foot and ankle were taken and evaluated. Radiographic evaluation: Hardware intact without breakage or loosening. Triplane position is maintained. No acute destructive changes. No soft tissue gas. No complications seen. No obvious fracture or dislocation is noted. No acute osseous changes. No osteolytic or osteoblastic lesions appreciated. No soft tissue gas. No discernible mass noted. Joint spaces are well maintained with exception of narrowing ankle joint. Bone density appear typical for age of patient. Assessment: Satisfactory post-operative progress Plan: The patient was educated on clinical examination findings, postoperative prognosis and protocol. All questions were answered to patient's apparent satisfaction. - Xray's reviewed with patient. - Discussed giving a cortisone injection in the future or oral steroids. - Patient to continue weightbearing as tolerated to the operative extremity. - Recommends trying to use the AFO brace in place of the [place] boot. Follow up 3 weeks. Scribe Attestation: By signing my name below, I, Zoya Bob MA, attest that this documentation has been prepared under the direction and in the presence of Mckinley Guzman DPM. Electronically Signed: Zoya Bob MA, Scribe. October 09, 2024 11:32 AM. Clinician Attestation Statement: The information in this document, created by the certified court/medical interpreter for me, accurately reflects the services I personally performed and the decisions made by me. I have reviewed and approved this document for accuracy. Mckinley Guzman DPM, FACFAS documented [facility] NoteHNO ID: [id number] Author: MCKINLEY GUZMAN DPM Service: ? Author Type: Physician Type: Progress Notes Filed: 11/09/2024 16:07 Note Text: DOS: 08/18/2024 POD: 52 days Procedure: second metatarsal ORIF, left foot This 74 year old male presents for a post op visit. Patient states they are doing well. Pain is well controlled. Has been weightbearing as tolerated to the left lower extremity in a [place] boot. He states after taking 10 steps he gets extreme pain around his left ankle area. He states when sleeping on his side the bone pushes on the mattress causing pain toward the ankle . He admits on having ankle pain prior to surgery but has gotten worse. Denies any current nausea, vomiting, fever, chills, shortness of breath, chest pain or calf pain. Denies any other pedal complaints PAST MEDICAL HISTORY Diagnosis Date Asthma Left foot pain Prostate cancer (HCC) Rheumatoid arthritis (HCC) Right foot pain Current Outpatient Medications Medication Sig gabapentin (NEURONTIN) 300 mg capsule Take 2 capsules by mouth daily at bedtime for 90 days. gabapentin (NEURONTIN) 600 mg tablet Take 1 tablet by mouth once daily for 90 days. gabapentin (NEURONTIN) 400 mg capsule Take 1 capsule by mouth daily at bedtime for 90 days. predniSONE (DELTASONE) 10 mg tablet Take 1 tablet by mouth once daily. Take Q8H for 4 days, Take Q12H for 4, Take Q24 for 5 days DULoxetine (CYMBALTA) 30 mg capsule Take 30 mg by mouth once daily. hydrOXYchloroQUINE (PLAQUENIL) 200 mg tablet linezolid (ZYVOX) 600 mg tablet budesonide/formoterol fumarate (SYMBICORT INHALATION) Inhale as instructed. tiotropium bromide (SPIRIVA RESPIMAT INHALATION) Inhale as instructed. leflunomide (ARAVA) 20 mg tablet Take 20 mg by mouth once daily. doxycycline hyclate (VIBRAMYCIN) 100 mg capsule Take 100 mg by mouth twice daily. Risedronate 150 mg tablet Take 150 mg by mouth once every month. In AM with cup of water on empty stomach. Nothing else by mouth and stay upright for 30 min. methotrexate sodium 25 mg/mL soln once each week. montelukast (SINGULAIR) 10 mg tablet once daily. folic acid 1 mg tablet once daily. amoxicillin (POLYMOX, AMOXIL) 500 mg capsule once daily. (Patient not taking: Reported on 03/31/2021 ) predniSONE (DELTASONE) 5 mg tablet twice daily. (Patient not taking: Reported on 03/31/2021 ) BD TUBERCULIN SYRINGE 1 mL 25 x 5/8 syrg Multivitamin capsule Take 1 capsule by mouth once daily. GLUCOSAMINE/CHONDROITIN SULF A (GLUCOSAMINE-CHONDROITIN ORAL) Take by mouth. mometasone (NASONEX) 50 mcg/actuation nasal spray Use 2 Sprays in the nose once daily. No current facility-administered medications for this visit. ALLERGIES Allergen Reactions Gluten Shortness of Breath Peanuts Shortness of Breath Yeast, Dried Shortness of Breath Objective: Patient presents weightbearing as tolerated to left leg in [place] boot. Dressing is dry, clean, and intact with normal strike through noted. Problem focus examination to the left lower extremity: Incision site is well coapted without evidence of dehiscence. Mild erythema and edema surrounding surgical site. No drainage. No lymphadenopathy. No lymphangitis. No surrounding cellulitis. No signs of infection. Patient has no pain to palpation of calf. The calf is soft, supple and nontender without evidence of DVT. Negative Sita's test. Satisfactory alignment is noted. Pedal pulses are palpable. Capillary refill time is less than three seconds to all digits. Sensations are intact to light touch. Radiographs:3 views AP, MO, Lat left Foot and ankle were taken and evaluated. Radiographic evaluation: Hardware intact without breakage or loosening. Triplane position is maintained. No acute destructive changes. No soft tissue gas. No complications seen. No obvious fracture or dislocation is noted. No acute osseous changes. No osteolytic or osteoblastic lesions appreciated. No soft tissue gas. No discernible mass noted. Joint spaces are well maintained with exception of narrowing ankle joint. Bone density appear typical for age of patient. Assessment: Satisfactory post-operative progress Plan: The patient was educated on clinical examination findings, postoperative prognosis and protocol. All questions were answered to patient's apparent satisfaction. - Xray's reviewed with patient. - Discussed giving a cortisone injection in the future or oral steroids. - Patient to continue weightbearing as tolerated to the operative extremity. - Recommends trying to use the AFO brace in place of the [place] boot. Follow up 3 weeks. Scribe Attestation: By signing my name below, I, Zoya Bob MA, attest that this documentation has been prepared under the direction and in the presence of Mckinley Guzman DPM. Electronically Signed: Zoya Bob MA, Scribe. October 09, 2024 11:32 AM. Clinician Attestation Statement: The information in this document, create (more content not included)...[facility]02-06-2025 NoteHNO ID: [id number] Author: MCKINLEY GUZMAN DPM Service: ? Author Type: Physician Type: Progress Notes Filed: 09/19/2024 16:32 Note Text: DOS: 08/18/24 POD: 31 POV: 3 Procedure: second metatarsal ORIF, left foot This 74 year old male presents for a post op visit. Patient states they are doing well. Pain is well controlled without pain medication. Has been elevating the extremity as instructed preoperatively and has been nonweightbearing to the L lower extremity in [place] with use of knee scooter. Denies any current nausea, vomiting, fever, chills, shortness of breath, chest pain or calf pain. Has been taking Aspirin for DVT prophylaxis. Denies constitutional symptoms. Denies any other pedal complaints PAST MEDICAL HISTORY Diagnosis Date Asthma Left foot pain Prostate cancer (HCC) Rheumatoid arthritis (HCC) Right foot pain Current Outpatient Medications Medication Sig gabapentin (NEURONTIN) 300 mg capsule Take 2 capsules by mouth daily at bedtime for 90 days. gabapentin (NEURONTIN) 600 mg tablet Take 1 tablet by mouth once daily for 90 days. predniSONE (DELTASONE) 10 mg tablet Take 1 tablet by mouth once daily. Take Q8H for 4 days, Take Q12H for 4, Take Q24 for 5 days DULoxetine (CYMBALTA) 30 mg capsule Take 30 mg by mouth once daily. hydrOXYchloroQUINE (PLAQUENIL) 200 mg tablet linezolid (ZYVOX) 600 mg tablet budesonide/formoterol fumarate (SYMBICORT INHALATION) Inhale as instructed. tiotropium bromide (SPIRIVA RESPIMAT INHALATION) Inhale as instructed. leflunomide (ARAVA) 20 mg tablet Take 20 mg by mouth once daily. Risedronate 150 mg tablet Take 150 mg by mouth once every month. In AM with cup of water on empty stomach. Nothing else by mouth and stay upright for 30 min. montelukast (SINGULAIR) 10 mg tablet once daily. folic acid 1 mg tablet once daily. Multivitamin capsule Take 1 capsule by mouth once daily. mometasone (NASONEX) 50 mcg/actuation nasal spray Use 2 Sprays in the nose once daily. gabapentin (NEURONTIN) 400 mg capsule Take 1 capsule by mouth daily at bedtime for 90 days. doxycycline hyclate (VIBRAMYCIN) 100 mg capsule Take 100 mg by mouth twice daily. methotrexate sodium 25 mg/mL soln once each week. amoxicillin (POLYMOX, AMOXIL) 500 mg capsule once daily. (Patient not taking: Reported on 03/31/2021 ) predniSONE (DELTASONE) 5 mg tablet twice daily. (Patient not taking: Reported on 03/31/2021 ) BD TUBERCULIN SYRINGE 1 mL 25 x 58 syrg GLUCOSAMINE/CHONDROITIN SULF A (GLUCOSAMINE-CHONDROITIN ORAL) Take by mouth. No current facility-administered medications for this visit. ALLERGIES Allergen Reactions Gluten Shortness of Breath Peanuts Shortness of Breath Yeast, Dried Shortness of Breath Objective: Patient presents nonweightbearing to left leg in [place] with knee scooter. Problem focus examination to the left lower extremity: Incision site is well coapted without evidence of dehiscence. No erythema and moderate edema surrounding surgical site. Resolved ecchymoses. No drainage. No lymphadenopathy. No lymphangitis. No surrounding cellulitis. No signs of infection. No pain to palpation of operative site. Mild soreness to anterior ankle from increased rubbing of [place] boot Patient has no pain to palpation of calf. The calf is soft, supple and nontender without evidence of DVT. Negative Sita's test. Satisfactory alignment is noted. Pedal pulses are palpable. Capillary refill time is less than three seconds to all digits. Sensations are intact to light touch. Radiographs: 3 views AP, [place], Lat left Foot were taken and evaluated (09/18/24) Impression: : Hardware intact without breakage or loosening. Triplane position is maintained. No interval displacement of fracture site. Minimal interval bony trabeculation across fracture site compared to prior films. No soft tissue gas. No complications seen. Assessment: Satisfactory post-operative progress Plan: The patient was educated on clinical examination findings, postoperative prognosis and protocol. All questions were answered to patient's apparent satisfaction. - XR obtained and evaluated of left foot - Able to progress WB in [place] to left foot in the house -NWB in [place] with knee scooter when out of the [place] -RTC [address] DPM PGY3 I personally saw and evaluated the patient. I reviewed the resident's note. I agree with the resident's assessment and plan unless otherwise noted. Mckinley Guzman DPM, [facility]02-06-2025 History of Present illness Narrative* Mckinley Guzman DPM - 09/18/2024 10:31 AM EST DOS: 08/18/24 POD: 31 POV: 3 Procedure: second metatarsal ORIF, left foot This 74 year old male presents for a post op visit. Patient states they are doing well. Pain is well controlled without pain medication. Has been elevating the extremity as instructed preoperatively and has been nonweightbearing to the L lower extremity in [place] with use of knee scooter. Denies any current nausea, vomiting, fever, chills, shortness of breath, chest pain or calf pain. Has been taking Aspirin for DVT prophylaxis. Denies constitutional symptoms. Denies any other pedal complaints PAST MEDICAL HISTORY Diagnosis Date Asthma Left foot pain Prostate cancer (HCC) Rheumatoid arthritis (HCC) Right foot pain Current Outpatient Medications Medication Sig gabapentin (NEURONTIN) 300 mg capsule Take 2 capsules by mouth daily at bedtime for 90 days. gabapentin (NEURONTIN) 600 mg tablet Take 1 tablet by mouth once daily for 90 days. predniSONE (DELTASONE) 10 mg tablet Take 1 tablet by mouth once daily. Take Q8H for 4 days, Take Q12H for 4, Take Q24 for 5 days DULoxetine (CYMBALTA) 30 mg capsule Take 30 mg by mouth once daily. hydrOXYchloroQUINE (PLAQUENIL) 200 mg tablet linezolid (ZYVOX) 600 mg tablet budesonide/formoterol fumarate (SYMBICORT INHALATION) Inhale as instructed. tiotropium bromide (SPIRIVA RESPIMAT INHALATION) Inhale as instructed. leflunomide (ARAVA) 20 mg tablet Take 20 mg by mouth once daily. Risedronate 150 mg tablet Take 150 mg by mouth once every month. In AM with cup of water on empty stomach. Nothing else by mouth and stay upright for 30 min. montelukast (SINGULAIR) 10 mg tablet once daily. folic acid 1 mg tablet once daily. Multivitamin capsule Take 1 capsule by mouth once daily. mometasone (NASONEX) 50 mcg/actuation nasal spray Use 2 Sprays in the nose once daily. gabapentin (NEURONTIN) 400 mg capsule Take 1 capsule by mouth daily at bedtime for 90 days. doxycycline hyclate (VIBRAMYCIN) 100 mg capsule Take 100 mg by mouth twice daily. methotrexate sodium 25 mg/mL soln once each week. amoxicillin (POLYMOX, AMOXIL) 500 mg capsule once daily. (Patient not taking: Reported on 03/31/2021 ) predniSONE (DELTASONE) 5 mg tablet twice daily. (Patient not taking: Reported on 03/31/2021 ) BD TUBERCULIN SYRINGE 1 mL 25 x 58 syrg GLUCOSAMINE/CHONDROITIN SULF A (GLUCOSAMINE-CHONDROITIN ORAL) Take by mouth. No current facility-administered medications for this visit. ALLERGIES Allergen Reactions Gluten Shortness of Breath Peanuts Shortness of Breath Yeast, Dried Shortness of Breath Objective: Patient presents nonweightbearing to left leg in [place] with knee scooter. Problem focus examination to the left lower extremity: Incision site is well coapted without evidence of dehiscence. No erythema and moderate edema surrounding surgical site. Resolved ecchymoses. No drainage. No lymphadenopathy. No lymphangitis. No surrounding cellulitis. No signs of infection. No pain to palpation of operative site. Mild soreness to anterior ankle from increased rubbing of [place] boot Patient has no pain to palpation of calf. The calf is soft, supple and nontender without evidence of DVT. Negative Sita's test. Satisfactory alignment is noted. Pedal pulses are palpable. Capillary refill time is less than three seconds to all digits. Sensations are intact to light touch. Radiographs: 3 views AP, [place], Lat left Foot were taken and evaluated (09/18/24) Impression: : Hardware intact without breakage or loosening. Triplane position is maintained. No interval displacement of fracture site. Minimal interval bony trabeculation across fracture site compared to prior films. No soft tissue gas. No complications seen. Assessment: Satisfactory post-operative progress Plan: The patient was educated on clinical examination findings, postoperative prognosis and protocol. All questions were answered to patient's apparent satisfaction. - XR obtained and evaluated of left foot - Able to progress WB in [place] to left foot in the house -NWB in [place] with knee scooter when out of the house -RTC [address] DPM PGY3 I personally saw and evaluated the patient. I reviewed the resident's note. I agree with the resident's assessment and plan unless otherwise noted. Mckinley Guzman DPM, FACFAS documented in this encounterSt[facility] NoteHNO ID: [id number] Author: MCKINLEY GUZMAN DPM Service: ? Author Type: Physician Type: Progress Notes Filed: 09/19/2024 17:15 Note Text: DOS: 08/18/24 POD: 17 POV: 2 Procedure: second metatarsal ORIF, left foot This 74 year old male presents for a post op visit. Patient states they are doing well. Pain is well controlled by Percocet. Has been icing and elevating the extremity as instructed preoperatively and has been nonweightbearing to the L lower extremity. Denies any current nausea, vomiting, fever, chills, shortness of breath, chest pain or calf pain. Has been taking Aspirin for DVT prophylaxis. States his right foot has become more red and swollen over the last week and admits to small wound formation to the tips of his toes. 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 Denies constitutional symptoms. Denies any other pedal complaints PAST MEDICAL HISTORY Diagnosis Date Asthma Left foot pain Prostate cancer (HCC) Rheumatoid arthritis (HCC) Right foot pain Current Outpatient Medications Medication Sig gabapentin (NEURONTIN) 600 mg tablet Take 1 tablet by mouth once daily for 90 days. DULoxetine (CYMBALTA) 30 mg capsule Take 30 mg by mouth once daily. hydrOXYchloroQUINE (PLAQUENIL) 200 mg tablet linezolid (ZYVOX) 600 mg tablet budesonide/formoterol fumarate (SYMBICORT INHALATION) Inhale as instructed. tiotropium bromide (SPIRIVA RESPIMAT INHALATION) Inhale as instructed. leflunomide (ARAVA) 20 mg tablet Take 20 mg by mouth once daily. Risedronate 150 mg tablet Take 150 mg by mouth once every month. In AM with cup of water on empty stomach. Nothing else by mouth and stay upright for 30 min. montelukast (SINGULAIR) 10 mg tablet once daily. folic acid 1 mg tablet once daily. Multivitamin capsule Take 1 capsule by mouth once daily. mometasone (NASONEX) 50 mcg/actuation nasal spray Use 2 Sprays in the nose once daily. gabapentin (NEURONTIN) 400 mg capsule Take 1 capsule by mouth daily at bedtime for 90 days. predniSONE (DELTASONE) 10 mg tablet Take 1 tablet by mouth once daily. Take Q8H for 4 days, Take Q12H for 4, Take Q24 for 5 days doxycycline hyclate (VIBRAMYCIN) 100 mg capsule Take 100 mg by mouth twice daily. methotrexate sodium 25 mg/mL soln once each week. amoxicillin (POLYMOX, AMOXIL) 500 mg capsule once daily. (Patient not taking: Reported on 03/31/2021 ) predniSONE (DELTASONE) 5 mg tablet twice daily. (Patient not taking: Reported on 03/31/2021 ) BD TUBERCULIN SYRINGE 1 mL 25 x 5/8 syrg GLUCOSAMINE/CHONDROITIN SULF A (GLUCOSAMINE-CHONDROITIN ORAL) Take by mouth. No current facility-administered medications for this visit. ALLERGIES Allergen Reactions Gluten Shortness of Breath Peanuts Shortness of Breath Yeast, Dried Shortness of Breath Objective: Patient presents nonweightbearing to left leg in wheelchair Dressing is dry, clean, and intact with normal strike through noted. Problem focus examination to the left lower extremity: Incision site is well coapted without evidence of dehiscence. Mild erythema and edema surrounding surgical site. +ecchymoses. No drainage. No lymphadenopathy. No lymphangitis. No surrounding cellulitis. No signs of infection. Patient has no pain to palpation of calf. The calf is soft, supple and nontender without evidence of DVT. Negative Sita's test. Satisfactory alignment is noted. Right foot: Increased erythema to hallux and lesser digits. Appears cellulitic. 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 Medially dislocated hallucal distal phalanx without interval displacement since prior visits. No plantar foot wound breakdown. Small superficial wounds to medial hallux and dorsal fourth digit. Mild serous drainage. No lymphangitis. No increase in warmth of rle compared to lle. Pedal pulses are palpable. Capillary refill time is less than three seconds to all digits. Sensations are intact to light touch. Radiographs: 3 views AP, MO, Lat left Foot were taken and evaluated (09/04/24) LEFT FOOT impression: : Hardware intact without breakage or loosening. Triplane position is maintained. No interval displacement of fracture site. Mild interval bony trabeculation across fracture site compared to prior films. No soft tissue gas. No complications seen. RIGHT FOOT impression:No acute fracture or dislocation. 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 Absent distal phalanx of second and third digits. No further osseous breakdown compared to prior films. Assessment: Satisfactory post-operative progress, with new onset of mild cellulitis and superficial wounds to rig (more content not included)...[facility]01-23-[facility]25 History of Present illness Narrative* Mckinley Guzman DPM - 09/04/2024 1:16 PM EST DOS: 08/18/24 POD: 17 POV: 2 Procedure: second metatarsal ORIF, left foot This 74 year old male presents for a post op visit. Patient states they are doing well. Pain is well controlled by Percocet. Has been icing and elevating the extremity as instructed preoperatively and has been nonweightbearing to the L lower extremity. Denies any current nausea, vomiting, fever, chills, shortness of breath, chest pain or calf pain. Has been taking Aspirin for DVT prophylaxis. States his right foot has become more red and swollen over the last week and admits to small wound formation to the tips of his toes. 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 Denies co nstitutional symptoms. Denies any other pedal complaints PAST MEDICAL HISTORY Diagnosis Date Asthma Left foot pain Prostate cancer (HCC) Rheumatoid arthritis (HCC) Right foot pain Current Outpatient Medications Medication Sig gabapentin (NEURONTIN) 600 mg tablet Take 1 tablet by mouth once daily for 90 days. DULoxetine (CYMBALTA) 30 mg capsule Take 30 mg by mouth once daily. hydrOXYchloroQUINE (PLAQUENIL) 200 mg tablet linezolid (ZYVOX) 600 mg tablet budesonide/formoterol fumarate (SYMBICORT INHALATION) Inhale as instructed. tiotropium bromide (SPIRIVA RESPIMAT INHALATION) Inhale as instructed. leflunomide (ARAVA) 20 mg tablet Take 20 mg by mouth once daily. Risedronate 150 mg tablet Take 150 mg by mouth once every month. In AM with cup of water on empty stomach. Nothing else by mouth and stay upright for 30 min. montelukast (SINGULAIR) 10 mg tablet once daily. folic acid 1 mg tablet once daily. Multivitamin capsule Take 1 capsule by mouth once daily. mometasone (NASONEX) 50 mcg/actuation nasal spray Use 2 Sprays in the nose once daily. gabapentin (NEURONTIN) 400 mg capsule Take 1 capsule by mouth daily at bedtime for 90 days. predniSONE (DELTASONE) 10 mg tablet Take 1 tablet by mouth once daily. Take Q8H for 4 days, Take Q12H for 4, Take Q24 for 5 days doxycycline hyclate (VIBRAMYCIN) 100 mg capsule Take 100 mg by mouth twice daily. methotrexate sodium 25 mg/mL soln once each week. amoxicillin (POLYMOX, AMOXIL) 500 mg capsule once daily. (Patient not taking: Reported on 03/31/2021 ) predniSONE (DELTASONE) 5 mg tablet twice daily. (Patient not taking: Reported on 03/31/2021 ) BD TUBERCULIN SYRINGE 1 mL 25 x 5/8 syrg GLUCOSAMINE/CHONDROITIN SULF A (GLUCOSAMINE-CHONDROITIN ORAL) Take by mouth. No current facility-administered medications for this visit. ALLERGIES Allergen Reactions Gluten Shortness of Breath Peanuts Shortness of Breath Yeast, Dried Shortness of Breath Objective: Patient presents nonweightbearing to left leg in wheelchair Dressing is dry, clean, and intact withnormal strike through noted. Problem focus examination to the left lower extremity: Incision site is well coapted without evidence of dehiscence. Mild erythema and edema surrounding surgical site. +ecchymoses. No drainage. No lymphadenopathy. No lymphangitis. No surrounding cellulitis. No signs of infection. Patient has no pain to palpation of calf. The calf is soft, supple and nontender without evidence of DVT. Negative Sita's test. Satisfactory alignment is noted. Right foot: Increased erythema to hallux and lesser digits. Appears cellulitic. 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 Medially dislocated hallucal distal phalanx without interval displacement since prior visits. No plantar foot wound breakdown. Small superficial wounds to medial hallux and dorsal fourth digit. Mild serous drainage. No lymphangitis. No increase in warmth of rle compared to lle. Pedal pulses are palpable. Capillary refill time is less than three seconds to all digits. Sensations are intact to light touch. Radiographs: 3 views AP, MO, Lat left Foot were taken and evaluated (09/04/24) LEFT FOOT impression: : Hardware intact without breakage or loosening. Triplane position is maintained. No interval displacement of fracture site. Mild interval bony trabeculation across fracture site compared to prior films. No soft tissue gas. No complications seen. RIGHT FOOT impression:No acute fracture or dislocation. 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 Absent distal phalanx of second and third digits. No further osseous breakdown compared to prior films. Assessment: Satisfactory post-operative progress, with new onset of mild cellulitis and superficial wounds to right foot. Plan: The patient was educated on clinical examination findings, postoperative prognosis and protocol. All questions were answered to patient's apparent satisfaction. -XR obtained and evaluated of b/l foot - Bandage removed and new dressing applied. - Sutures were removed today. Able to shower, do not soak foot. - [place] to right foot. - Patient to continue nonweightbearing to the operative extremity with use of CAM boot -Rx Gabapentin -Rx Keflex -RTC [address] DPM PGY3 I personally saw and evaluated the patient. I reviewed the resident's note. I agree with the resident's assessment and plan unless otherwise noted. Mckinley Guzman DPM, FACFAS documented [facility] Instructions* Patient Instructions* Ursula Flores DPM - 08/28/2024 2:17 PM EST Take one baby aspirin a day documented in this encounterSt. [facility] NoteHNO ID: [id number] Author: MCKINLEY GUZMAN DPM Service: ? Author Type: Physician Type: Progress Notes Filed: 09/12/2024 07:42 Note Text: DOS: 08/18/24 POD: 10 POV: 1 Procedure: second metatarsal ORIF, left foot This 74 year old male presents for a post op visit. Patient states they are doing well. Pain is well controlled by Percocet. Has been icing and elevating the extremity as instructed preoperatively and has been nonweightbearing to the L lower extremity. Denies any current nausea, vomiting, fever, chills, shortness of breath, chest pain or calf pain. Has been taking Aspirin for DVT prophylaxis. Denies any other pedal complaints PAST MEDICAL HISTORY Diagnosis Date Asthma Left foot pain Prostate cancer (HCC) Rheumatoid arthritis (HCC) Right foot pain Current Outpatient Medications Medication Sig gabapentin (NEURONTIN) 600 mg tablet Take 1 tablet by mouth once daily for 90 days. predniSONE (DELTASONE) 10 mg tablet Take 1 tablet by mouth once daily. Take Q8H for 4 days, Take Q12H for 4, Take Q24 for 5 days DULoxetine (CYMBALTA) 30 mg capsule Take 30 mg by mouth once daily. hydrOXYchloroQUINE (PLAQUENIL) 200 mg tablet linezolid (ZYVOX) 600 mg tablet budesonide/formoterol fumarate (SYMBICORT INHALATION) Inhale as instructed. tiotropium bromide (SPIRIVA RESPIMAT INHALATION) Inhale as instructed. leflunomide (ARAVA) 20 mg tablet Take 20 mg by mouth once daily. Risedronate 150 mg tablet Take 150 mg by mouth once every month. In AM with cup of water on empty stomach. Nothing else by mouth and stay upright for 30 min. montelukast (SINGULAIR) 10 mg tablet once daily. folic acid 1 mg tablet once daily. Multivitamin capsule Take 1 capsule by mouth once daily. mometasone (NASONEX) 50 mcg/actuation nasal spray Use 2 Sprays in the nose once daily. gabapentin (NEURONTIN) 400 mg capsule Take 1 capsule by mouth daily at bedtime for 90 days. doxycycline hyclate (VIBRAMYCIN) 100 mg capsule Take 100 mg by mouth twice daily. methotrexate sodium 25 mg/mL soln once each week. amoxicillin (POLYMOX, AMOXIL) 500 mg capsule once daily. (Patient not taking: Reported on 03/31/2021 ) predniSONE (DELTASONE) 5 mg tablet twice daily. (Patient not taking: Reported on 03/31/2021 ) BD TUBERCULIN SYRINGE 1 mL 25 x 12/18 syrg GLUCOSAMINE/CHONDROITIN SULF A (GLUCOSAMINE-CHONDROITIN ORAL) Take by mouth. No current facility-administered medications for this visit. ALLERGIES Allergen Reactions Gluten Shortness of Breath Peanuts Shortness of Breath Yeast, Dried Shortness of Breath Objective: Patient presents nonweightbearing to left leg. Dressing is dry, clean, and intact with normal strike through noted. Problem focus examination to the left lower extremity: Incision site is well coapted without evidence of dehiscence. Mild erythema and edema surrounding surgical site. No drainage. No lymphadenopathy. No lymphangitis. No surrounding cellulitis. No signs of infection. Patient has no pain to palpation of calf. The calf is soft, supple and nontender without evidence of DVT. Negative Sita's test. Satisfactory alignment is noted. Pedal pulses are palpable. Capillary refill time is less than three seconds to all digits. Sensations are intact to light touch. Radiographs: 3 views AP, MO, Lat left Foot were taken and evaluated 08/28/24. Radiographic evaluation: Hardware intact without breakage or loosening. Triplane position is maintained. No acute destructive changes. No soft tissue gas. No complications seen. Assessment: Satisfactory post-operative progress Plan: The patient was educated on clinical examination findings, postoperative prognosis and protocol. All questions were answered to patient's apparent satisfaction. - Bandage removed and new dressing applied. - Sutures were left intact - Cast applied in standard technique - New XR obtained and evaluated - Patient to continue nonweightbearing to the operative extremity. Follow up 1 week for suture removal. Ursula Flores DPM PGY-3 I personally saw and evaluated the patient. I reviewed the resident's note. I agree with the resident's assessment and plan unless otherwise noted. Mckinley Guzman DPM, [facility]01-16-2025 History of Present illness Narrative* Mckinley Guzman DPM - 08/28/2024 1:49 PM EST DOS: 08/18/24 POD: 10 POV: 1 Procedure: second metatarsal ORIF, left foot This 74 year old male presents for a post op visit. Patient states they are doing well. Pain is well controlled by Percocet. Has been icing and elevating the extremity as instructed preoperatively and has been nonweightbearing to the L lower extremity. Denies any current nausea, vomiting, fever, chills, shortness of breath, chest pain or calf pain. Has been taking Aspirin for DVT prophylaxis. Denies any other pedal complaints PAST MEDICAL HISTORY Diagnosis Date Asthma Left foot pain Prostate cancer (HCC) Rheumatoid arthritis (HCC) Right foot pain Current Outpatient Medications Medication Sig gabapentin (NEURONTIN) 600 mg tablet Take 1 tablet by mouth once daily for 90 days. predniSONE (DELTASONE) 10 mg tablet Take 1 tablet by mouth once daily. Take Q8H for 4 days, Take Q12H for 4, Take Q24 for 5 days DULoxetine (CYMBALTA) 30 mg capsule Take 30 mg by mouth once daily. hydrOXYchloroQUINE (PLAQUENIL) 200 mg tablet linezolid (ZYVOX) 600 mg tablet budesonide/formoterol fumarate (SYMBICORT INHALATION) Inhale as instructed. tiotropium bromide (SPIRIVA RESPIMAT INHALATION) Inhale as instructed. leflunomide (ARAVA) 20 mg tablet Take 20 mg by mouth once daily. Risedronate 150 mg tablet Take 150 mg by mouth once every month. In AM with cup of water on empty stomach. Nothing else by mouth and stay upright for 30 min. montelukast (SINGULAIR) 10 mg tablet once daily. folic acid 1 mg tablet once daily. Multivitamin capsule Take 1 capsule by mouth once daily. mometasone (NASONEX) 50 mcg/actuation nasal spray Use 2 Sprays in the nose once daily. gabapentin (NEURONTIN) 400 mg capsule Take 1 capsule by mouth daily at bedtime for 90 days. doxycycline hyclate (VIBRAMYCIN) 100 mg capsule Take 100 mg by mouth twice daily. methotrexate sodium 25 mg/mL soln once each week. amoxicillin (POLYMOX, AMOXIL) 500 mg capsule once daily. (Patient not taking: Reported on 03/31/2021 ) predniSONE (DELTASONE) 5 mg tablet twice daily. (Patient not taking: Reported on 03/31/2021 ) BD TUBERCULIN SYRINGE 1 mL 25 x 5/8 syrg GLUCOSAMINE/CHONDROITIN SULF A (GLUCOSAMINE-CHONDROITIN ORAL) Take by mouth. No current facility-administered medications for this visit. ALLERGIES Allergen Reactions Gluten Shortness of Breath Peanuts Shortness of Breath Yeast, Dried Shortness of Breath Objective: Patient presents nonweightbearing to left leg. Dressing is dry, clean, and intact with normal strike through noted. Problem focus examination to the left lower extremity: Incision site is well coapted without evidence of dehiscence. Mild erythema and edema surrounding surgical site. No drainage. No lymphadenopathy. No lymphangitis. No surrounding cellulitis. No signs of infection. Patient has no pain to palpation of calf. The calf is soft, supple and nontender without evidence of DVT. Negative Sita's test. Satisfactory alignment is noted. Pedal pulses are palpable. Capillary refill time is less than three seconds to all digits. Sensations are intact to light touch. Radiographs: 3 views AP, MO, Lat left Foot were taken and evaluated 08/28/24. Radiographic evaluation: Hardware intact without breakage or loosening. Triplane position is maintained. No acute destructive changes. No soft tissue gas. No complications seen. Assessment: Satisfactory post-operative progress Plan: The patient was educated on clinical examination findings, postoperative prognosis and protocol. All questions were answered to patient's apparent satisfaction. - Bandage removed and new dressing applied. - Sutures were left intact - Cast applied in standard technique - New XR obtained and evaluated - Patient to continue nonweightbearing to the operative extremity. Follow up 1 week for suture removal. Ursula Flores DPM PGY-3 I personally saw and evaluated the patient. I reviewed the resident's note. I agree with the resident's assessment and plan unless otherwise noted. Mckinley Guzman DPM, FACFAS documented in this encounterSt. [facility] NoteHNO ID: [id number] Author: CURT VARGAS RN Service: General Surgery Author Type: Registered Nurse Type: Nursing Progress Note Filed: 08/18/2024 15:54 Note Text: Other: patient sat up eating and drinkingRedington-[facility]01-06-2025 NoteHNO ID: [id number] Author: KLARISSA LI APRN.CRNA Service: Anesthesiology Author Type: Nurse Mushroom Packer Type: Anesthesia Procedure Notes Filed: 08/18/2024 14:35 Note Text: ANESTHESIOLOGY PROCEDURE NOTE Airway General Information Procedure Start Time/Medication Administration: 08/18/2024 2:26 PM Procedure End Time: 08/18/2024 2:26 PM Patient location during procedure: OR Timeout Performed Pre-procedure: timeout performed Consent Obtained: Yes Patient identity confirmed: arm band and patient Staffing Anesthesiologist: Doni Urena MD PASTRY COOK APPRENTICE: Klarissa Li APRN.PASTRY COOK APPRENTICE Performed by: LUCIA Indications and Patient Condition Indications for airway management: anesthesia Preoxygenated: yes anesthesia circuit Patient position: sniffing Method: asleep Final Airway Details Final airway type: supraglottic airway Number of attempts at approach: 1 Final Supraglottic Airway: i-gel Size 4 Seal Adequate: yes SIGNATURE: Klarissa Li APRN.PASTRY COOK APPRENTICE PATIENT NAME: Shivani Bonilla DATE: August 18, 2024 TIME: 2:35 PM CSN: [id number]-[facility]01-02-2025 Telephone encounter Note* Telephone Encounter - Concepcion Galeana - 08/14/2024 1:19 PM EST Spoke with patient and confirmed surgery for 08/18/24 at 250pm arriving at 1250pm NPO midnight Patient notified to bring knee walker day of surgery also to complete the questions on mychart Consent in [facility]01-02-[facility]25 Miscellaneous Notes* Telephone Encounter - Concepcion Galeana - 08/14/2024 1:19 PM EST Spoke with patient and confirmed surgery for 08/18/24 at 250pm arriving at 1250pm NPO midnight Patient notified to bring knee walker day of surgery also to complete the questions on mychart Consent in [facility] Concepcion Marcum [facility] documented in this encounterSt. Mary[facility]12[facility] History of Present illness Narrative* Ganga Doe Gilmardoloresfernie, DO - 08/11/2024 2:30 PM EST Images from the original note were not included. [facility] - [address] [facility] [id number] Visit type: Established Patient Reason for Visit: Other (Surgical clearance /Left foot second toe surgery on 08/18/23) Assessment / Plan: Shivani was seen today for other. Diagnoses and all orders for this visit: Charcot joint of right foot (Primary) Allergic rhinitis, unspecified seasonality, unspecified trigger Extrinsic asthma, unspecified asthma severity, unspecified whether complicated, unspecified whetherpersistent Comments: Stable on Symbicort, Spiriva, Singulair and albuterol History of systemic steroid therapy History of prostate cancer Preoperative clearance Rheumatoid arthritis involving wrist with positive rheumatoid factor, unspecified laterality (HCC) Comments: Stable on Ansaid and Plaquenil and Arava Subjective: Patient ID: Shivani Bonilla is a 74 y.o. male. HPI patient with history of severe rheumatoid arthritis presents for preop clearance for a upcomingright foot surgery diagnosed as a Charcot joint. Overall feeling well. No constitutional symptoms. Recent pulmonary consultation noted. His severe asthma and allergies have been well-controlled.. Of note he states he will be getting preoperative lab and EKG at the [facility]. Review of Systems no history of anesthesia reaction. No recent earache sore throat or cough. Was onantibiotic and steroids a few months ago. Recent pulmonary consultation noted. Denies exertional chest pain jaw pain or dyspnea. No PND orthopnea or claudication. No change in pedal edema. No heartburn or abdominal pain. Bowels are regular. No melena or blood. Recent PSA exam stable for surveillance for his prostate cancer. Allergies Allergen Reactions Doxycycline Other reaction(s): Hives Current Outpatient Medications on File Prior to Visit Medication Sig Dispense Refill albuterol 108 (90 Base) MCG/ACT inhaler CRANBERRY PO Take by mouth. flurbiprofen (Ansaid) 100 MG tablet Take 1 tablet by mouth daily. gabapentin (Neurontin) 400 MG capsule Take 400 mg by mouth Nightly. ipratropium (Atrovent) 0.06 % nasal spray Administer 2 sprays into each nostril 3 times daily for 7days. 15 mL 0 latanoprost (Xalatan) 0.005 % ophthalmic solution place 1 drop into both eyes once daily leflunomide (Arava) 20 MG tablet montelukast (Singulair) 10 MG tablet Multiple Vitamin tablet Take 1 tablet by mouth daily. Spiriva Respimat 1.25 MCG/ACT inhaler Symbicort 160-4.5 MCG/ACT inhaler [DISCONTINUED] hydroxychloroquine (Plaquenil) 200 MG tablet Take 200 mg by mouth daily. (Patient not taking: Reported on 08/11/2024) No current facility-administered medications on file prior to visit. Patient Active Problem List Diagnosis Personal history of colonic polyps BPH (benign prostatic hyperplasia) History of gastric ulcer Allergic asthma Allergic rhinitis Rheumatoid arthritis involving wrist with positive rheumatoid factor (CMS/HCC) (HCC) Lumbar spine scoliosis DDD (degenerative disc disease), cervical Osteoarthritis of both knees History of renal stone Osteopenia History of systemic steroid therapy Degenerative arthritis of thoracic spine History of prostate cancer Scaphoid fracture Hypercholesterolemia with hypertriglyceridemia Wrist fracture, closed, right, with routine healing, subsequent encounter Reflux esophagitis Viral URI Social History Tobacco Use Smoking status: Never Passive exposure: Never Smokeless tobacco: Never Substance Use Topics Alcohol use: No Alcohol/week: 0.0 standard drinks of alcohol Past Surgical History: Procedure Laterality Date CARDIAC CATHETERIZATION 07/2018 neg per Sadaf CARPAL TUNNEL RELEASE Bilateral x2 COLONOSCOPY 2015 Sylvia- small polyps COLONOSCOPY W/ POLYPECTOMY 02/2020 Dr. Eugene- due 2022 HERNIA REPAIR Right 2014 [employer] INCISIONAL HERNIA REPAIR Right 2015 [facility]- mesh replacement LITHOTRIPSY 1993 PROSTATECTOMY 2013 robotic REVERSE TOTAL SHOULDER ARTHROPLASTY 08/2023 [facility] REVERSE TOTAL SHOULDER ARTHROPLASTY Right 10/2023 Dr. Durand- repeated due to disloc REVISION TOTAL KNEE ARTHROPLASTY (HISTORICAL) Left 07/2016 Dr. Durand RHINOPLASTY 2004 TOE AMPUTATION Right 11/2019 rt 2nd toe per Dr. Rubi TOE AMPUTATION Right 2019 3rd toe amputation TONSILLECTOMY (HISTORICAL) TOTAL KNEE ARTHROPLASTY Right 2014 [place] TOTAL KNEE ARTHROPLASTY Left 2004 [place] UPPER GASTROINTESTINAL ENDOSCOPY 07/2016 sylvia Family History Problem Relation Name Age of Onset Heart failure Mother Amita at fib, age 94, copd COPD Father Ariel age 75, nonsmoker Hypertension Sister Claudia alive age 72 No Known Problems Maternal Grandmother late 70s Bone cancer Maternal Grandfather age 60s No Known Problems Paternal Grandmother in 70s , No Known Problems Paternal Grandfather GA? Objective: BP 106/67 (BP Location: Right arm, Patient Position: Sitting, BP Cuff Size: Large adult) Pulse 93 Temp 36.6 C (97.9 F) (Temporal) Ht 5' 10 (1.778 m) Wt 241 lb 9.6 oz (110 kg) SpO2 96% BMI 34.67 kg/m Physical Exam pleasant alert cooperative. Vital signs are stable. Normal eardrums and oropharynx. Clear postnasal drip. No neck masses JVD or adenopathy. No carotid bruits. Heart is regular without ectopy or murmurs. Lungs are diminished in both bases but without rales wheezing or egophony today. Abdomen obese nontender without pain hepatosplenomegaly or masses. No bruits. Extremities had large boots on and he deferred removing them. No skin changes have been noticed by the patient. documented in this [facility]12-27-2024 Telephone encounter Note* Telephone Encounter - Nelsy Perea - 08/08/2024 9:40 AM EST The patient is now scheduled on 08/11 at 2:30 PM. [id number] Miscellaneous Notes* Telephone Encounter - Nelsy Perea - 08/08/2024 9:40 AM EST The patient is now scheduled on 08/11 at 2:30 PM. * Telephone Encounter - Dipti Benito MA - 08/08/2024 9:31 AM EST L/M for patient to be scheduled on Sunday08/11/24 in one of the same day slots also L/M with Juliana at Orthopedics letting her know I'm trying to get him scheduled. * Telephone Encounter - Mariluz Carrillo - 08/07/2024 2:15 PM EST Name of Caller: Juliana Contact Reason for Appointment: Juliana is requesting to schedule a surgical clearance with Dr Acosta prior to 08/18/24. Dr Acosta has no available dates prior to surgery. Juliana is requesting a returned call with date/time, and if it would be with another provider. Please advise Office Name: [facility] Medication Refills need, if any: n/a Medication Name: n/a documented in this [facility]12-27-2024 Telephone encounter Note* Telephone Encounter - Dipti Benito MA - 08/08/2024 9:31 AM EST L/M for patient to be scheduled on Sunday08/11/24 in one of the same day slots also L/M with Juliana at Orthopedics letting her know I'm trying to get him scheduled. [facility] [id number] Telephone encounter Note* Telephone Encounter - Mariluz Carrillo - 08/07/2024 2:15 PM EST Name of Caller: Juliana Contact Reason for Appointment: Juliana is requesting to schedule a surgical clearance with Dr Acosta prior to 08/18/24. Dr Acosta has no available dates prior to surgery. Juliana is requesting a returned call with date/time, and if it would be with another provider. Please advise Office Name: [facility] Medication Refills need, if any: n/a Medication Name: n/a [facility] [id number] History of Present illness Narrative* Mckinley Guzman DPM - 08/07/2024 1:30 PM EST Chief Complaint: Follow-up left foot second metatarsal fracture HPI: This 74 year old male with PMH indicated below presents following up on left foot charcot [id number] metatarsal fracture. Patient states since last visit he has been ambulating to [place] boots to bilateral feet. He states he does not have any pain at this time when he is ambulating in the [place] boots. He states he does not take steps out of the [place]ak boot. He states that when he is out he uses a knee scooter to the left lower extremity. He denies any new open calluses or lesions to the area. He denies any other new pedal complaints today. Previous history: December 2016- medial column arthrodesis by Dr. 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 DULoxetine (CYMBALTA) 30 mg capsule Take 30 mg by mouth once daily. hydrOXYchloroQUINE (PLAQUENIL) 200 mg tablet linezolid (ZYVOX) 600 mg tablet budesonide/formoterol fumarate (SYMBICORT INHALATION) Inhale as instructed. tiotropium bromide (SPIRIVA RESPIMAT INHALATION) Inhale as instructed. leflunomide (ARAVA) 20 mg tablet Take 20 mg by mouth once daily. doxycycline hyclate (VIBRAMYCIN) 100 mg capsule Take 100 mg by mouth twice daily. Risedronate 150 mg tablet Take 150 mg by mouth once every month. In AM with cup of water on empty stomach. Nothing else by mouth and stay upright for 30 min. folic acid 1 mg tablet once daily. BD TUBERCULIN SYRINGE 1 mL 25 x 5/8 syrg Multivitamin capsule Take 1 capsule by mouth once daily. GLUCOSAMINE/CHONDROITIN SULF A (GLUCOSAMINE-CHONDROITIN ORAL) Take by mouth. predniSONE (DELTASONE) 10 mg tablet Take 1 tablet by mouth once daily. Take Q8H for 4 days, Take Q12H for 4, Take Q24 for 5 days (Patient not taking: Reported on 07/08/2024) methotrexate sodium 25 mg/mL soln once each week. montelukast (SINGULAIR) 10 mg tablet once daily. amoxicillin (POLYMOX, AMOXIL) 500 mg capsule once daily. (Patient not taking: Reported on 03/31/2021 ) predniSONE (DELTASONE) 5 mg tablet twice daily. (Patient not taking: Reported on 03/31/2021 ) mometasone (NASONEX) 50 mcg/actuation nasal spray Use 2 Sprays in the nose once daily. No current facility-administered medications for this visit. : ALLERGIES Allergen Reactions Gluten Shortness of Breath Peanuts Shortness of Breath Yeast, Dried Shortness of Breath : PAST SURGICAL HISTORY Procedure Laterality Date ARTHRP KNE CONDYLE&PLATU MEDIAL&LAT COMPARTMENTS Left 08/13/2004 ARTHRP KNE CONDYLE&PLATU MEDIAL&LAT COMPARTMENTS Right 08/13/2014 CARPAL TUNNEL 82,83 x2 each wrist COLONOSCOPY 08/13/2009 FOOT SURGERY HX Right 07/2020 FOOT SURGERY HX Right 11/29/2020 INGUINAL HERNIA REPAIR HX Right 09/13/2014 LX REPAIR RECURRENT VENTRAL HERNIA 11/08/2015 Laparoscopic repair of recurrent ventral hernia PAST SURGICAL HISTORY OF 01/11/1993 kidney stone removal PAST SURGICAL HISTORY OF 08/13/1997 cardiac catherization PAST SURGICAL HISTORY OF Left 08/13/2005 knee revision PAST SURGICAL HISTORY OF 11/24/2022 Kidney stone removal REMOVAL OF PROSTATE 02/10/2013 SHOULDER SURGERY HX Right 08/21/2023 TONSILLECTOMY HX 08/13/1977 FAMILY HISTORY Problem Relation Age of Onset other (negative [Other]) Unknown : Social History Tobacco Use Smoking status: Never Smokeless tobacco: Never Vaping Use Vaping status: Never Used Substance Use Topics Alcohol use: No Drug use: No REVIEW OF SYSTEMS see tech note MSK: + as noted in HPI. Physical Exam: Patient is alert and oriented x 3 in NAD. Patient is a 74 year old male who appears well developed,well nourished and with good attention to hygiene and body habitus. Temp 36.8 C (98.3 F) Ht 177.8 cm (5' 10) Wt 104.3 kg (230 lb) BMI 33.00 kg/m Vascular: DP and PT pulses are palpable. CFT less than 3 seconds to all digits. Skin temperature iswarm to warm from proximal to distal and comparable b/l. No increase in warmth to the right foot. Hair growth is absent. No varicosities noted. Neuro: Light touch intact. Protective sensation diminished at all pedal sites via Nicholson Dany 5.07 monofilament. Foot drop; L Derm: Skin texture and turgor within normal limits. Webspaces 1-4 clean, dry, intact b/l. There is no ulcerations noted.No surrounding erythema, no purulence, no evidence of infection. No hyperkeratotic tissue. Erythema, warmth and edema noted to dorsal lateral left foot which is significantly improved since last exam. Musculoskeletal/Orthopaedic: General foot morphology: decreased medial longitudinal arch with plantar prominence at midfoot. 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 +4/5 muscle strength Dorsiflexion, Plantarflexion, Inversion, Eversion, no DF strength to LLE, limited PF strength. No palpable dell noted to achilles tendon. Non palpable AT tendon concerning for chronic rupture. Foot drop noted of LLE. No tenderness to palpation of left achilles tendon at mid substance level. No palpable dells. Negative ignacio test. Tenderness to palpation of left forefoot and midfoot improved since last exam. ROM of the 1st MTPJ is decreased without pain or crepitus. ROM of the MTJ/STJ is decreased without pain or crepitus. Ankle joint ROM is decreased. No erythema about the plantar midfoot right. There is mild pain dorsally with direct palpation to the second metatarsal head and shaft, skin tenting is not noted dorsally in this area. Pain on palpation with ROM of second MTP. Metatarsal head is unable to be palpated plantarly at this time. Radiographs: 3 views left foot and ankle obtained and reviewed On sagittal view there is gross angulation dorsally of the metatarsal head and neck relative to therest of the shaft. This is angulated approximately 30 degrees dorsally. There is no interval trabeculation noted within this fracture site on AP, MO, lateral views. No other fractures or dislocationsare noted at this time. No signs of acute charcot arthropathy. ASSESSMENT: This 74 year old male patient following up today with closed displaced, angulated second metatarsalfracture, left foot. Plan: - A comprehensive history and physical examination were preformed. The patient was educated on clinical and radiographic findings, diagnosis and treatment plans. Patient state that he understands allthat has been explained and all questions were answered to his apparent satisfaction. -Discussed with patient given the gross dorsal angulation of the 2nd metatarsal fracture in the sagittal plane without end to end union or trabeculation we recommend surgical intervention to realign second metatarsal at this time -Rx for gabapentin was dispensed today. Educated patient on conservative and surgical treatment options. The patient understands all explained to him and would like to proceed with surgical intervention. I've recommended Open reduction internal fixation second metatarsal fracture, left foot . Patient was educated on the details of the procedures as well as medically reasonable risks, benefits, alternatives and prognosis. Patient was also educated on perioperative management including preoperative medical clearance, postoperative care and rehabilitation, anticipated time to full weightbearing, return to shoes and maximum medical improvement. Lastly patient was educated to their apparent understanding on potential complications including but not limited to infection, recurrence, over correction or under correction, persistent pain, swelling or disability, nerve injury or entrapment,bone and soft tissue healing complications, complications with anesthesia and deep vein thrombosis or pulmonary embolism. All questions were answered to the patient s apparent satisfaction. No guarantees were given as to the outcome of the surgery. Medical clearance pending and surgical scheduling to follow. Total patient care time w/ pt was at least 45 minutes w/ at least 50% of the time spent reviewing the results of the recent imaging, counseling the pt on treatment options and coordinating their care. Nataliia Heller DPM PGY3 I personally saw and evaluated the patient. I reviewed the resident's note. I agree with the resident's assessment and plan unless otherwise noted. Mckinley Guzman DPM, FACFAS * Jean Hardy Tech - 08/07/2024 1:17 PM EST REVIEW OF SYSTEMS: GENERAL: Well developed, well nourished. No acute distress PAIN: Negative for pain, history of chronic pain or current treatment for chronic pain conditions CARDIOVASCULAR: Negative for chest pain, leg swelling and palpations. MSK: Negative for joint swelling SKIN: Negative for lesions, rash, itching, metal sensitivity NEURO: Numbness/tingling of extremties ENDOCRINE: Negative for diabetic associated symptoms HEMATOLOGY: Negative for excessive bleeding, clots, bleeding disorders. [facility] NoteHNO ID: [id number] Author: MCKINLEY GUZMAN DPM Service: ? Author Type: Physician Type: Progress Notes Filed: 08/26/2024 16:57 Note Text: Chief Complaint: Follow-up left foot second metatarsal fracture HPI: This 74 year old male with PMH indicated below presents following up on left foot charcot with 2nd metatarsal fracture. Patient states since last visit he has been ambulating to [place] boots to bilateral feet. He states he does not have any pain at this time when he is ambulating in the [place] boots. He states he does not take steps out of the [place] boot. He states that when he is out he uses a knee scooter to the left lower extremity. He denies any new open calluses or lesions to the area. He denies any other new pedal complaints today. Previous history: December 2016- medial column arthrodesis by Dr. 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 DULoxetine (CYMBALTA) 30 mg capsule Take 30 mg by mouth once daily. hydrOXYchloroQUINE (PLAQUENIL) 200 mg tablet linezolid (ZYVOX) 600 mg tablet budesonide/formoterol fumarate (SYMBICORT INHALATION) Inhale as instructed. tiotropium bromide (SPIRIVA RESPIMAT INHALATION) Inhale as instructed. leflunomide (ARAVA) 20 mg tablet Take 20 mg by mouth once daily. doxycycline hyclate (VIBRAMYCIN) 100 mg capsule Take 100 mg by mouth twice daily. Risedronate 150 mg tablet Take 150 mg by mouth once every month. In AM with cup of water on empty stomach. Nothing else by mouth and stay upright for 30 min. folic acid 1 mg tablet once daily. BD TUBERCULIN SYRINGE 1 mL 25 x 5/8 syrg Multivitamin capsule Take 1 capsule by mouth once daily. GLUCOSAMINE/CHONDROITIN SULF A (GLUCOSAMINE-CHONDROITIN ORAL) Take by mouth. predniSONE (DELTASONE) 10 mg tablet Take 1 tablet by mouth once daily. Take Q8H for 4 days, Take Q12H for 4, Take Q24 for 5 days (Patient not taking: Reported on 07/08/2024) methotrexate sodium 25 mg/mL soln once each week. montelukast (SINGULAIR) 10 mg tablet once daily. amoxicillin (POLYMOX, AMOXIL) 500 mg capsule once daily. (Patient not taking: Reported on 03/31/2021 ) predniSONE (DELTASONE) 5 mg tablet twice daily. (Patient not taking: Reported on 03/31/2021 ) mometasone (NASONEX) 50 mcg/actuation nasal spray Use 2 Sprays in the nose once daily. No current facility-administered medications for this visit. : ALLERGIES Allergen Reactions Gluten Shortness of Breath Peanuts Shortness of Breath Yeast, Dried Shortness of Breath : PAST SURGICAL HISTORY Procedure Laterality Date ARTHRP KNE CONDYLEANDPLATU MEDIALANDLAT COMPARTMENTS Left 08/13/2004 ARTHRP KNE CONDYLEANDPLATU MEDIALANDLAT COMPARTMENTS Right 08/13/2014 CARPAL TUNNEL 82,83 x2 each wrist COLONOSCOPY 08/13/2009 FOOT SURGERY HX Right 07/2020 FOOT SURGERY HX Right 11/29/2020 INGUINAL HERNIA REPAIR HX Right 09/13/2014 LX REPAIR RECURRENT VENTRAL HERNIA 11/08/2015 Laparoscopic repair of recurrent ventral hernia PAST SURGICAL HISTORY OF 01/11/1993 kidney stone removal PAST SURGICAL HISTORY OF 08/13/1997 cardiac catherization PAST SURGICAL HISTORY OF Left 08/13/2005 knee revision PAST SURGICAL HISTORY OF 11/24/2022 Kidney stone removal REMOVAL OF PROSTATE 02/10/2013 SHOULDER SURGERY HX Right 08/21/2023 TONSILLECTOMY HX 08/13/1977 FAMILY HISTORY Problem Relation Age of Onset other (negative [Other]) Unknown : Social History Tobacco Use Smoking status: Never Smokeless tobacco: Never Vaping Use Vaping status: Never Used Substance Use Topics Alcohol use: No Drug use: No REVIEW OF SYSTEMS see tech note MSK: + as noted in HPI. Physical Exam: Patient is alert and oriented x 3 in NAD. Patient is a 74 year old male who appears well developed, well nourished and with good attention to hygiene and body habitus. Temp 36.8 ?C (98.3 ?F) Ht 177.8 cm (5' 10) Wt 104.3 kg (230 lb) BMI 33.00 kg/m? Vascular: DP and PT pulses are palpable. CFT less than 3 seconds to all digits. Skin temperature is warm to warm from proximal to distal and comparable b/l. No increase in warmth to the right foot. Hair growth is absent. No varicosities noted. Neuro: Light touch intact. Protective sensation diminished at all pedal sites via Nicholson Dany 5.07 monofilament. Foot drop; L Derm: Skin texture and turgor within normal limits. Webspaces 1-4 clean, dry, intact b/l. There is no ulcerations noted.No surrounding erythema, no purulence, no evidence of infection. No hyperkeratoti (more content not included)...[facility]12-26-2024 NoteHNO ID: [id number] Author: JEAN HARDY Tech Service: ? Author Type: Policy Issue Clerk Type: Progress Notes Filed: 08/26/2024 16:57 Note Text: REVIEW OF SYSTEMS: GENERAL: Well developed, well nourished. No acute distress PAIN: Negative for pain, history of chronic pain or current treatment for chronic pain conditions CARDIOVASCULAR: Negative for chest pain, leg swelling and palpations. MSK: Negative for joint swelling SKIN: Negative for lesions, rash, itching, metal sensitivity NEURO: Numbness/tingling of extremties ENDOCRINE: Negative for diabetic associated symptoms HEMATOLOGY: Negative for excessive bleeding, clots, bleeding disorders.[facility]12-04-2024 Evaluation note* Diagnosis Onset Date Resolution Status Admit Date Moderate persistent allergic asthma without complication chronic Dece mb 2023 1:47pm [facility] Work Phone: 1(474) 269-158811-26-2024 Instructions* Patient Instructions* Perico Szymanski DPM - 07/08/2024 11:43 AM EST You may start walking around the house but use the knee scooter when outside Break in [place] boot as instructed. Monitor for red spots documented in this [facility]St[facility] NoteHNO ID: [id number] Author: MCKINLEY GUZMAN DPM Service: ? Author Type: Physician Type: Progress Notes Filed: 07/24/2024 16:33 Note Text: Chief Complaint: left foot charcot follow up Interval HPI: admits to improvement of left foot pain and swelling since last visit. He just got his new [place] boot and has been breaking it in as instructed. Denies any signs of pressure injury. Has been using the knee scooter. HPI: This 74 year old male with PMH indicated below presents following up on left foot charcot with 2nd metatarsal fracture. Denies any changes in shoegear or brace. Is concerned that something is going on with the left foot since this occurred out of the blue. Right foot wound remains healed. Patient has been wearing his AFO on right foot. Still endorses left lower extremity drop foot. Denies any open wounds or lesions. Denies constitional symptoms. He denies any other new pedal complaints today. Previous history: December 2016- medial column arthrodesis by Dr. 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 DULoxetine (CYMBALTA) 30 mg capsule Take 30 mg by mouth once daily. hydrOXYchloroQUINE (PLAQUENIL) 200 mg tablet linezolid (ZYVOX) 600 mg tablet budesonide/formoterol fumarate (SYMBICORT INHALATION) Inhale as instructed. tiotropium bromide (SPIRIVA RESPIMAT INHALATION) Inhale as instructed. leflunomide (ARAVA) 20 mg tablet Take 20 mg by mouth once daily. Risedronate 150 mg tablet Take 150 mg by mouth once every month. In AM with cup of water on empty stomach. Nothing else by mouth and stay upright for 30 min. montelukast (SINGULAIR) 10 mg tablet once daily. folic acid 1 mg tablet once daily. Multivitamin capsule Take 1 capsule by mouth once daily. mometasone (NASONEX) 50 mcg/actuation nasal spray Use 2 Sprays in the nose once daily. predniSONE (DELTASONE) 10 mg tablet Take 1 tablet by mouth once daily. Take Q8H for 4 days, Take Q12H for 4, Take Q24 for 5 days (Patient not taking: Reported on 07/08/2024) doxycycline hyclate (VIBRAMYCIN) 100 mg capsule Take 100 mg by mouth twice daily. methotrexate sodium 25 mg/mL soln once each week. amoxicillin (POLYMOX, AMOXIL) 500 mg capsule once daily. (Patient not taking: Reported on 03/31/2021 ) predniSONE (DELTASONE) 5 mg tablet twice daily. (Patient not taking: Reported on 03/31/2021 ) BD TUBERCULIN SYRINGE 1 mL 25 x 5/8 syrg GLUCOSAMINE/CHONDROITIN SULF A (GLUCOSAMINE-CHONDROITIN ORAL) Take by mouth. No current facility-administered medications for this visit. : ALLERGIES Allergen Reactions Gluten Shortness of Breath Peanuts Shortness of Breath Yeast, Dried Shortness of Breath : PAST SURGICAL HISTORY Procedure Laterality Date ARTHRP KNE CONDYLEANDPLATU MEDIALANDLAT COMPARTMENTS Left 08/13/2004 ARTHRP KNE CONDYLEANDPLATU MEDIALANDLAT COMPARTMENTS Right 08/13/2014 CARPAL TUNNEL 82,83 x2 each wrist COLONOSCOPY 08/13/2009 FOOT SURGERY HX Right 07/2020 FOOT SURGERY HX Right 11/29/2020 INGUINAL HERNIA REPAIR HX Right 09/13/2014 LX REPAIR RECURRENT VENTRAL HERNIA 11/08/2015 Laparoscopic repair of recurrent ventral hernia PAST SURGICAL HISTORY OF 01/11/1993 kidney stone removal PAST SURGICAL HISTORY OF 08/13/1997 cardiac catherization PAST SURGICAL HISTORY OF Left 08/13/2005 knee revision PAST SURGICAL HISTORY OF 11/24/2022 Kidney stone removal REMOVAL OF PROSTATE 02/10/2013 SHOULDER SURGERY HX Right 08/21/2023 TONSILLECTOMY HX 08/13/1977 FAMILY HISTORY Problem Relation Age of Onset other (negative [Other]) Unknown : Social History Tobacco Use Smoking status: Never Smokeless tobacco: Never Vaping Use Vaping status: Never Used Substance Use Topics Alcohol use: No Drug use: No REVIEW OF SYSTEMS see tech note MSK: + as noted in HPI. Physical Exam: Patient is alert and oriented x 3 in NAD. Patient is a 74 year old male who appears well developed, well nourished and with good attention to hygiene and body habitus. Resp 19 Ht 177.8 cm (5' 10) Wt 97.5 kg (215 lb) BMI 30.85 kg/m? Vascular: DP and PT pulses are palpable. CFT less than 3 seconds to all digits. Skin temperature is warm to warm from proximal to distal and comparable b/l. No increase in warmth to the right foot. Hair growth is absent. No varicosities noted. Neuro: Light touch intact. Protective sensation diminished at all pedal sites via Nicholson Dany 5.07 monofilament. Foot drop; L Derm: Skin texture and turgor within normal limit (more content not included)... [facility]11-26-2024 History of Present illness Narrative* Mckinley Guzman, DPM - 07/08/2024 11:41 AM EST Chief Complaint: left foot charcot follow up Interval HPI: admits to improvement of left foot pain and swelling since last visit. He just got his new [place]chester boot and has been breaking it in as instructed. Denies any signs of pressure injury. Has been using the knee scooter. HPI: This 74 year old male with PMH indicated below presents following up on left foot charcot [id number] metatarsal fracture. Denies any changes in shoegear or brace. Is concerned that something is going on with the left foot since this occurred out of the blue. Right foot wound remains healed. Patient has been wearing his AFO on right foot. Still endorses left lower extremity drop foot. Denies any open wounds or lesions. Denies constitional symptoms. He denies any other new pedal complaints today. Previous history: December 2016- medial column arthrodesis by Dr. 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 DULoxetine (CYMBALTA) 30 mg capsule Take 30 mg by mouth once daily. hydrOXYchloroQUINE (PLAQUENIL) 200 mg tablet linezolid (ZYVOX) 600 mg tablet budesonide/formoterol fumarate (SYMBICORT INHALATION) Inhale as instructed. tiotropium bromide (SPIRIVA RESPIMAT INHALATION) Inhale as instructed. leflunomide (ARAVA) 20 mg tablet Take 20 mg by mouth once daily. Risedronate 150 mg tablet Take 150 mg by mouth once every month. In AM with cup of water on empty stomach. Nothing else by mouth and stay upright for 30 min. montelukast (SINGULAIR) 10 mg tablet once daily. folic acid 1 mg tablet once daily. Multivitamin capsule Take 1 capsule by mouth once daily. mometasone (NASONEX) 50 mcg/actuation nasal spray Use 2 Sprays in the nose once daily. predniSONE (DELTASONE) 10 mg tablet Take 1 tablet by mouth once daily. Take Q8H for 4 days, Take Q12H for 4, Take Q24 for 5 days (Patient not taking: Reported on 07/08/2024) doxycycline hyclate (VIBRAMYCIN) 100 mg capsule Take 100 mg by mouth twice daily. methotrexate sodium 25 mg/mL soln once each week. amoxicillin (POLYMOX, AMOXIL) 500 mg capsule once daily. (Patient not taking: Reported on 03/31/2021 ) predniSONE (DELTASONE) 5 mg tablet twice daily. (Patient not taking: Reported on 03/31/2021 ) BD TUBERCULIN SYRINGE 1 mL 25 x 12/18 syrg GLUCOSAMINE/CHONDROITIN SULF A (GLUCOSAMINE-CHONDROITIN ORAL) Take by mouth. No current facility-administered medications for this visit. : ALLERGIES Allergen Reactions Gluten Shortness of Breath Peanuts Shortness of Breath Yeast, Dried Shortness of Breath : PAST SURGICAL HISTORY Procedure Laterality Date ARTHRP KNE CONDYLE&PLATU MEDIAL&LAT COMPARTMENTS Left 08/13/2004 ARTHRP KNE CONDYLE&PLATU MEDIAL&LAT COMPARTMENTS Right 08/13/2014 CARPAL TUNNEL 82,83 x2 each wrist COLONOSCOPY 08/13/2009 FOOT SURGERY HX Right 07/2020 FOOT SURGERY HX Right 11/29/2020 INGUINAL HERNIA REPAIR HX Right 09/13/2014 LX REPAIR RECURRENT VENTRAL HERNIA 11/08/2015 Laparoscopic repair of recurrent ventral hernia PAST SURGICAL HISTORY OF 01/11/1993 kidney stone removal PAST SURGICAL HISTORY OF 08/13/1997 cardiac catherization PAST SURGICAL HISTORY OF Left 08/13/2005 knee revision PAST SURGICAL HISTORY OF 11/24/2022 Kidney stone removal REMOVAL OF PROSTATE 02/10/2013 SHOULDER SURGERY HX Right 08/21/2023 TONSILLECTOMY HX 08/13/1977 FAMILY HISTORY Problem Relation Age of Onset other (negative [Other]) Unknown : Social History Tobacco Use Smoking status: Never Smokeless tobacco: Never Vaping Use Vaping status: Never Used Substance Use Topics Alcohol use: No Drug use: No REVIEW OF SYSTEMS see tech note MSK: + as noted in HPI. Physical Exam: Patient is alert and oriented x 3 in NAD. Patient is a 74 year old male who appears well developed,well nourished and with good attention to hygiene and body habitus. Resp 19 Ht 177.8 cm (5' 10) Wt 97.5 kg (215 lb) BMI 30.85 kg/m Vascular: DP and PT pulses are palpable. CFT less than 3 seconds to all digits. Skin temperature iswarm to warm from proximal to distal and comparable b/l. No increase in warmth to the right foot. Hair growth is absent. No varicosities noted. Neuro: Light touch intact. Protective sensation diminished at all pedal sites via Nicholson Dany 5.07 monofilament. Foot drop; L Derm: Skin texture and turgor within normal limits. Webspaces 1-4 clean, dry, intact b/l. There is no ulcerations noted.No surrounding erythema, no purulence, no evidence of infection. No hyperkeratotic tissue. Erythema, warmth and edema noted to dorsal lateral left foot which is significantly improved since last exam. Musculoskeletal/Orthopaedic: General foot morphology: decreased medial longitudinal arch with plantar prominence at midfoot. 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 +4/5 muscle strength Dorsiflexion, Plantarflexion, Inversion, Eversion, no DF strength to LLE, limited PF strength. No palpable dell noted to achilles tendon. Non palpable AT tendon concerning for chronic rupture. Foot drop noted of LLE. No tenderness to palpation of left achilles tendon at mid substance level. No palpable dells. Negative ignacio test. Tenderness to palpation of left forefoot and midfoot improved since last exam. ROM of the 1st MTPJ is decreased without pain or crepitus. ROM of the MTJ/STJ is decreased without pain or crepitus. Ankle joint ROM is decreased. No erythema or edema about the plantar midfoot right. No pain on palpation of left 2nd metatarsal bone. Radiographs: 3 views left foot and ankle obtained and reviewed (06/24/24) Impression: minimally displaced transverse fracture of second metatarsal neck. Joint spaces maintained. Possible increase in the joint space between in 5th metatarsal cuboid articulation, concern forpossible start of a charcot event. Increased calcaneal inclination angle and decreased talar declination angle. No bony cysts or tumors. + plantar and posterior superior calcaneal enthesophyte formation. No bony cysts or tumors ASSESSMENT: This 74 year old male patient following up today with minimally displaced second metatarsal fracture with concern for early onset of charcot to left foot Plan: - A focused history and physical examination were preformed. The patient was educated on clinical and radiographic findings, diagnosis and treatment plans. Patient state that he understands all that has been explained and all questions were answered to his apparent satisfaction. - Continue AFO for right foot. - Instructed patient to be WBAT around the house on LLE in manchester boot. Use knee scooter when outside - Continue daily foot checks. Monitor for any open lesions, wounds, increased redness or swelling as well as pressure injuries while wearing the manchester boot - RTC in 4 weeks with repeat XR Perico Szymanski DPM, PGY-3 I personally saw and evaluated the patient. I reviewed the resident's note. I agree with the resident's assessment and plan unless otherwise noted. Mckinley Guzman DPM, FACFAS documented in this encounter[facility] [facility] Instructions* Patient Instructions* Mckinley Guzman DPM - 06/24/2024 8:32 AM EST Wear tubigrip and sushant wrap Wear fracture boot on left foot Obtain manchester boot for left foot Elevate ice, keep nomi off foot. Use knee scooter documented in this encounterSt. [facility] [facility]24 NoteHNO ID: [id number] Author: MCKINLEY GUZMAN DPM Service: ? Author Type: Physician Type: Progress Notes Filed: 07/05/2024 10:02 Note Text: Chief Complaint: left foot pain HPI: This 74 year old male with PMH indicated below presents for new left foot pain. States that this past Sunday, he was working in his garden and noticed he felt like he bruised the outside of his left foot. Patient was wearing his AFO as instructed. Pain is rated a 5/10 and described as an ache. States its painful to place weight on that outside of his left foot. The next morning, he noticed the redness and swelling to the top and outside of the left foot.Denies any changes in shoegear or brace. Is concerned that something is going on with the left foot since this occurred out of the blue. Right foot wound remains healed. Patient has been wearing his AFO. Getting new AFO for his left foot this afternoon. Still endorses left lower extremity drop foot. Denies any open wounds or lesions. Denies constitional symptoms. He denies any other new pedal complaints today. Previous history: December 2016- medial column arthrodesis by Dr. 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 predniSONE (DELTASONE) 10 mg tablet Take 1 tablet by mouth once daily. Take Q8H for 4 days, Take Q12H for 4, Take Q24 for 5 days DULoxetine (CYMBALTA) 30 mg capsule Take 30 mg by mouth once daily. hydrOXYchloroQUINE (PLAQUENIL) 200 mg tablet linezolid (ZYVOX) 600 mg tablet budesonide/formoterol fumarate (SYMBICORT INHALATION) Inhale as instructed. tiotropium bromide (SPIRIVA RESPIMAT INHALATION) Inhale as instructed. leflunomide (ARAVA) 20 mg tablet Take 20 mg by mouth once daily. doxycycline hyclate (VIBRAMYCIN) 100 mg capsule Take 100 mg by mouth twice daily. Risedronate 150 mg tablet Take 150 mg by mouth once every month. In AM with cup of water on empty stomach. Nothing else by mouth and stay upright for 30 min. methotrexate sodium 25 mg/mL soln once each week. montelukast (SINGULAIR) 10 mg tablet once daily. folic acid 1 mg tablet once daily. amoxicillin (POLYMOX, AMOXIL) 500 mg capsule once daily. (Patient not taking: Reported on 03/31/2021 ) predniSONE (DELTASONE) 5 mg tablet twice daily. (Patient not taking: Reported on 03/31/2021 ) BD TUBERCULIN SYRINGE 1 mL 25 x 5/8 syrg Multivitamin capsule Take 1 capsule by mouth once daily. GLUCOSAMINE/CHONDROITIN SULF A (GLUCOSAMINE-CHONDROITIN ORAL) Take by mouth. mometasone (NASONEX) 50 mcg/actuation nasal spray Use 2 Sprays in the nose once daily. No current facility-administered medications for this visit. : ALLERGIES Allergen Reactions Gluten Shortness of Breath Peanuts Shortness of Breath Yeast, Dried Shortness of Breath : PAST SURGICAL HISTORY Procedure Laterality Date ARTHRP KNE CONDYLEANDPLATU MEDIALANDLAT COMPARTMENTS Left 08/13/2004 ARTHRP KNE CONDYLEANDPLATU MEDIALANDLAT COMPARTMENTS Right 08/13/2014 CARPAL TUNNEL 82,83 x2 each wrist COLONOSCOPY 08/13/2009 FOOT SURGERY HX Right 07/2020 FOOT SURGERY HX Right 11/29/2020 INGUINAL HERNIA REPAIR HX Right 09/13/2014 LX REPAIR RECURRENT VENTRAL HERNIA 11/08/2015 Laparoscopic repair of recurrent ventral hernia PAST SURGICAL HISTORY OF 01/11/1993 kidney stone removal PAST SURGICAL HISTORY OF 08/13/1997 cardiac catherization PAST SURGICAL HISTORY OF Left 08/13/2005 knee revision PAST SURGICAL HISTORY OF 11/24/2022 Kidney stone removal REMOVAL OF PROSTATE 02/10/2013 SHOULDER SURGERY HX Right 08/21/2023 TONSILLECTOMY HX 08/13/1977 FAMILY HISTORY Problem Relation Age of Onset other (negative [Other]) Unknown : Social History Tobacco Use Smoking status: Never Smokeless tobacco: Never Substance Use Topics Alcohol use: No Drug use: No REVIEW OF SYSTEMS see tech note MSK: + as noted in HPI. Physical Exam: Patient is alert and oriented x 3 in NAD. Patient is a 74 year old male who appears well developed, well nourished and with good attention to hygiene and body habitus. There were no vitals taken for this visit. Vascular: DP and PT pulses are palpable. CFT less than 3 seconds to all digits. Skin temperature is warm to warm from proximal to distal. No increase in warmth to the right foot. Hair growth is absent. No varicosities noted. Neuro: Light touch intact. Protective sensation diminished at all pedal sites via Nicholson Dany 5.07 monofilament. Foot drop; L Derm: Skin texture and turgor within normal limit (more content not included)... [facility]11-12-[facility]24 History of Present illness Narrative* Mckinley Guzman DPM - 06/24/2024 8:05 AM EST Chief Complaint: left foot pain HPI: This 74 year old male with PMH indicated below presents for new left foot pain. States that this past Sunday, he was working in his garden and noticed he felt like he bruised the outside of his left foot. Patient was wearing his AFO as instructed. Pain is rated a 5/10 and described as an ache.States its painful to place weight on that outside of his left foot. The next morning, he noticed the redness and swelling to the top and outside of the left foot.Denies any changes in shoegear or brace. Is concerned that something is going on with the left foot since this occurred out of the blue.Right foot wound remains healed. Patient has been wearing his AFO. Getting new AFO for his left foot this afternoon. Still endorses left lower extremity drop foot. Denies any open wounds or lesions. Denies constitional symptoms. He denies any other new pedal complaints today. Previous history: December 2016- medial column arthrodesis by Dr. 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 predniSONE (DELTASONE) 10 mg tablet Take 1 tablet by mouth once daily. Take Q8H for 4 days, Take Q12H for 4, Take Q24 for 5 days DULoxetine (CYMBALTA) 30 mg capsule Take 30 mg by mouth once daily. hydrOXYchloroQUINE (PLAQUENIL) 200 mg tablet linezolid (ZYVOX) 600 mg tablet budesonide/formoterol fumarate (SYMBICORT INHALATION) Inhale as instructed. tiotropium bromide (SPIRIVA RESPIMAT INHALATION) Inhale as instructed. leflunomide (ARAVA) 20 mg tablet Take 20 mg by mouth once daily. doxycycline hyclate (VIBRAMYCIN) 100 mg capsule Take 100 mg by mouth twice daily. Risedronate 150 mg tablet Take 150 mg by mouth once every month. In AM with cup of water on empty stomach. Nothing else by mouth and stay upright for 30 min. methotrexate sodium 25 mg/mL soln once each week. montelukast (SINGULAIR) 10 mg tablet once daily. folic acid 1 mg tablet once daily. amoxicillin (POLYMOX, AMOXIL) 500 mg capsule once daily. (Patient not taking: Reported on 03/31/2021 ) predniSONE (DELTASONE) 5 mg tablet twice daily. (Patient not taking: Reported on 03/31/2021 ) BD TUBERCULIN SYRINGE 1 mL 25 x 5/8 syrg Multivitamin capsule Take 1 capsule by mouth once daily. GLUCOSAMINE/CHONDROITIN SULF A (GLUCOSAMINE-CHONDROITIN ORAL) Take by mouth. mometasone (NASONEX) 50 mcg/actuation nasal spray Use 2 Sprays in the nose once daily. No current facility-administered medications for this visit. : ALLERGIES Allergen Reactions Gluten Shortness of Breath Peanuts Shortness of Breath Yeast, Dried Shortness of Breath : PAST SURGICAL HISTORY Procedure Laterality Date ARTHRP KNE CONDYLE&PLATU MEDIAL&LAT COMPARTMENTS Left 08/13/2004 ARTHRP KNE CONDYLE&PLATU MEDIAL&LAT COMPARTMENTS Right 08/13/2014 CARPAL TUNNEL 82,83 x2 each wrist COLONOSCOPY 08/13/2009 FOOT SURGERY HX Right 07/2020 FOOT SURGERY HX Right 11/29/2020 INGUINAL HERNIA REPAIR HX Right 09/13/2014 LX REPAIR RECURRENT VENTRAL HERNIA 11/08/2015 Laparoscopic repair of recurrent ventral hernia PAST SURGICAL HISTORY OF 01/11/1993 kidney stone removal PAST SURGICAL HISTORY OF 08/13/1997 cardiac catherization PAST SURGICAL HISTORY OF Left 08/13/2005 knee revision PAST SURGICAL HISTORY OF 11/24/2022 Kidney stone removal REMOVAL OF PROSTATE 02/10/2013 SHOULDER SURGERY HX Right 08/21/2023 TONSILLECTOMY HX 08/13/1977 FAMILY HISTORY Problem Relation Age of Onset other (negative [Other]) Unknown : Social History Tobacco Use Smoking status: Never Smokeless tobacco: Never Substance Use Topics Alcohol use: No Drug use: No REVIEW OF SYSTEMS see tech note MSK: + as noted in HPI. Physical Exam: Patient is alert and oriented x 3 in NAD. Patient is a 74 year old male who appears well developed,well nourished and with good attention to hygiene and body habitus. There were no vitals taken for this visit. Vascular: DP and PT pulses are palpable. CFT less than 3 seconds to all digits. Skin temperature iswarm to warm from proximal to distal. No increase in warmth to the right foot. Hair growth is absent. No varicosities noted. Neuro: Light touch intact. Protective sensation diminished at all pedal sites via Nicholson Dany 5.07 monofilament. Foot drop; L Derm: Skin texture and turgor within normal limits. Webspaces 1-4 clean, dry, intact b/l. There is no ulcerations noted.No surrounding erythema, no purulence, no evidence of infection. No hyperkeratotic tissue. Erythema, warmth and edema noted to dorsal lateral left foot. Musculoskeletal/Orthopaedic: General foot morphology: decreased medial longitudinal arch with plantar prominence at midfoot. 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 +4/5 muscle strength Dorsiflexion, Plantarflexion, Inversion, Eversion, no DF strength to LLE, limited PF strength. No palpable dell noted to achilles tendon. Non palpable AT tendon concerning for chronic rupture. Foot drop noted of LLE. No tenderness to palpation of left achilles tendon at mid substance level. No palpable dells. Negative ignacio test. Tenderness to palpation of left forefoot and midfoot ROM of the 1st MTPJ is decreased without pain or crepitus. ROM of the MTJ/STJ is decreased without pain or crepitus. Ankle joint ROM is decreased. No erythema or edema about the plantar midfoot right. Radiographs: 3 views left foot and ankle obtained and reviewed (06/24/24) Impression: minimally displaced transverse fracture of second metatarsal neck. Joint spaces maintained. Possible increase in the joint space between in 5th metatarsal cuboid articulation, concern forpossible start of a charcot event. Increased calcaneal inclination angle and decreased talar declination angle. No bony cysts or tumors. + plantar and posterior superior calcaneal enthesophyte formation. No bony cysts or tumors ASSESSMENT: This 74 year old male patient presents today with minimally displaced second metatarsal fracture with concern for early onset of charcot to left foot Plan: - A focused history and physical examination were preformed. The patient was educated on clinical and radiographic findings, diagnosis and treatment plans. Patient state that he understands all that has been explained and all questions were answered to his apparent satisfaction. - Continue AFO for right foot. -RX for manchester boot for left foot, he is to wear camboot and stay non weight bearing until he gets his manchester boot for the left foot. -Continue daily foot checks. Monitor for any open lesions, wounds, increased redness or swelling asthis could be an acute charcot event - Continue daily foot checks. Monitor for any open lesions, wounds, increased redness or swelling as this could be an acute charcot event. - RTC in 2 weeks with repeat XR Stephanie Díaz DPM PGY-3 I personally saw and evaluated the patient. I reviewed the resident's note. I agree with the resident's assessment and plan unless otherwise noted. Mckinley Guzman DPM, FACFAS documented in this encounterSt[facility] Telephone encounter Note * Telephone Encounter - Denisa Hernandez - 06/23/2024 11:32 AM EST I spoke with the patient and scheduled an appointment. Denisa Hernandez [facility]11-11[facility] Miscellaneous Notes* Telephone Encounter - Denisa Hernandez - 06/23/2024 11:32 AM EST I spoke with the patient and scheduled an appointment. Denisa Hernandez * Telephone Encounter - Denisa Hernandez - 06/23/2024 8:36 AM EST I called the patient to schedule an appointment with Dr. Guzman. I left a voice mail with our office number to call back. Denisa Hernandez * Telephone Encounter - Denisa Hernandez - 06/23/2024 8:35 AM EST ----- Message from Francine Amezcua sent at 06/23/2024 8:18 AM EST ----- Regarding: Ortho/Dr Guzman/Swelling and pain of left lupillo/ Contact: Subject Line Format: Orthopedics / [Provider Name or Open & Body Part] / [Issue] Patient has been identified by name and Date of (Y/N): Y Patient: Sihvani Bonilla Date of : 1950 Previous Provider Seen: Dr Guzman Body Part(s) Identified: Left foot Diagnosis/Reason For Visit: Pain and swelling Reason for the call/escalation: Patient would like seen tristian If reason for call/escalation is discharge from ED/ER or Hospital, which facility was the patient seen at: N Was an appointment scheduled (Y/N): N Person calling if other than patient: PT Return call to if other than patient: PT Best contact number: [phone] Thank you, Francine Rivera June 23, 2024 8:19 AM documented in this encounterSt. [facility] Telephone encounter Note * Telephone Encounter - Denisa Hernandez - 06/23/2024 8:36 AM EST I called the patient to schedule an appointment with Dr. Guzman. I left a voice mail with our office number to call back. Denisa Hernandez [facility] Telephone encounter Note* Telephone Encounter - Denisa Hernandez - 06/23/2024 8:35 AM EST ----- Message from Francine Amezcua sent at 06/23/2024 8:18 AM EST ----- Regarding: Ortho/Dr Guzman/Swelling and pain of left lupillo/ Contact: Subject Line Format: Orthopedics / [Provider Name or Open & Body Part] / [Issue] Patient has been identified by name and Date of (Y/N): Y Patient: Shivani Bonilla Date of : 1950 Previous Provider Seen: Dr Guzman Body Part(s) Identified: Left foot Diagnosis/Reason For Visit: Pain and swelling Reason for the call/escalation: Patient would like seen tristian If reason for call/escalation is discharge from ED/ER or Hospital, which facility was the patient seen at: N Was an appointment scheduled (Y/N): N Person calling if other than patient: PT Return call to if other than patient: PT Best contact number: [phone] Thank you, Francine Rivera June 23, 2024 8:[address] [facility]10[facility]24[facility] Instructions* Patient Instructions* Perico Szymanski DPM - 06/05/2024 12:03 PM EDT Continue with voltaren cream on right foot as needed documented in this encounterSt. Mary'[facility]24 NoteHNO ID: [id number] Author: MCKINLEY GUZMAN DPM Service: ? Author Type: Physician Type: Progress Notes Filed: 06/11/2024 14:10 Note Text: Chief Complaint: LLE Achilles follow up a HPI: This 74 year old male with PMH indicated below presents for follow up of achilles tendonitis. Right foot wound remains healed. Patient has been wearing AFO. His AFO was modified since last visit and patient has no complaints regarding the brace. Still endorses left lower extremity drop foot. Denies any open wounds or lesions. Denies constitional symptoms. He denies any other new pedal complaints today. Previous history: December 2016- medial column arthrodesis by Dr. 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 predniSONE (DELTASONE) 10 mg tablet Take 1 tablet by mouth once daily. Take Q8H for 4 days, Take Q12H for 4, Take Q24 for 5 days DULoxetine (CYMBALTA) 30 mg capsule Take 30 mg by mouth once daily. hydrOXYchloroQUINE (PLAQUENIL) 200 mg tablet linezolid (ZYVOX) 600 mg tablet budesonide/formoterol fumarate (SYMBICORT INHALATION) Inhale as instructed. tiotropium bromide (SPIRIVA RESPIMAT INHALATION) Inhale as instructed. leflunomide (ARAVA) 20 mg tablet Take 20 mg by mouth once daily. doxycycline hyclate (VIBRAMYCIN) 100 mg capsule Take 100 mg by mouth twice daily. Risedronate 150 mg tablet Take 150 mg by mouth once every month. In AM with cup of water on empty stomach. Nothing else by mouth and stay upright for 30 min. methotrexate sodium 25 mg/mL soln once each week. montelukast (SINGULAIR) 10 mg tablet once daily. folic acid 1 mg tablet once daily. amoxicillin (POLYMOX, AMOXIL) 500 mg capsule once daily. (Patient not taking: Reported on 03/31/2021 ) predniSONE (DELTASONE) 5 mg tablet twice daily. (Patient not taking: Reported on 03/31/2021 ) BD TUBERCULIN SYRINGE 1 mL 25 x 5/8 syrg Multivitamin capsule Take 1 capsule by mouth once daily. GLUCOSAMINE/CHONDROITIN SULF A (GLUCOSAMINE-CHONDROITIN ORAL) Take by mouth. mometasone (NASONEX) 50 mcg/actuation nasal spray Use 2 Sprays in the nose once daily. No current facility-administered medications for this visit. : ALLERGIES Allergen Reactions Gluten Shortness of Breath Peanuts Shortness of Breath Yeast, Dried Shortness of Breath : PAST SURGICAL HISTORY Procedure Laterality Date ARTHRP KNE CONDYLEANDPLATU MEDIALANDLAT COMPARTMENTS Left 08/13/2004 ARTHRP KNE CONDYLEANDPLATU MEDIALANDLAT COMPARTMENTS Right 08/13/2014 CARPAL TUNNEL 82,83 x2 each wrist COLONOSCOPY 08/13/2009 FOOT SURGERY HX Right 07/2020 FOOT SURGERY HX Right 11/29/2020 INGUINAL HERNIA REPAIR HX Right 09/13/2014 LX REPAIR RECURRENT VENTRAL HERNIA 11/08/2015 Laparoscopic repair of recurrent ventral hernia PAST SURGICAL HISTORY OF 01/11/1993 kidney stone removal PAST SURGICAL HISTORY OF 08/13/1997 cardiac catherization PAST SURGICAL HISTORY OF Left 08/13/2005 knee revision PAST SURGICAL HISTORY OF 11/24/2022 Kidney stone removal REMOVAL OF PROSTATE 02/10/2013 SHOULDER SURGERY HX Right 08/21/2023 TONSILLECTOMY HX 08/13/1977 FAMILY HISTORY Problem Relation Age of Onset other (negative [Other]) Unknown : Social History Tobacco Use Smoking status: Never Smokeless tobacco: Never Substance Use Topics Alcohol use: No Drug use: No REVIEW OF SYSTEMS see tech note MSK: + as noted in HPI. Physical Exam: Patient is alert and oriented x 3 in NAD. Patient is a 74 year old male who appears well developed, well nourished and with good attention to hygiene and body habitus. Resp 16 Ht 177.8 cm (5' 10) Wt 97.5 kg (215 lb) BMI 30.85 kg/m? Vascular: DP and PT pulses are palpable. CFT less than 3 seconds to all digits. Skin temperature is warm to warm from proximal to distal. No increase in warmth to the right foot. Hair growth is absent. No varicosities noted. Neuro: Light touch intact. Protective sensation diminished at all pedal sites via Nicholson Dany 5.07 monofilament. Foot drop; L Derm: Skin texture and turgor within normal limits. Webspaces 1-4 clean, dry, intact b/l. There is no ulcerations noted,.No surrounding erythema, no purulence, no evidence of infection. No significant hyperkeratotic tissue noted today Musculoskeletal/Orthopaedic: General foot morphology: decreased medial longitudinal arch with plantar prominence at midfoot. 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 +4/5 muscle strength Dorsiflexion, Plantarflexion, Inversion, Philippe (more content not included)...[facility]10-24-2024 History of Present illness Narrative* Mckinley Guzman DPM - 06/05/2024 11:51 AM EDT Chief Complaint: LLE Achilles follow up a HPI: This 74 year old male with PMH indicated below presents for follow up of achilles tendonitis. Right foot wound remains healed. Patient has been wearing AFO. His AFO was modified since last visitand patient has no complaints regarding the brace. Still endorses left lower extremity drop foot. Denies any open wounds or lesions. Denies constitional symptoms. He denies any other new pedal complaints today. Previous history: December 2016- medial column arthrodesis by Dr. 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 predniSONE (DELTASONE) 10 mg tablet Take 1 tablet by mouth once daily. Take Q8H for 4 days, Take Q12H for 4, Take Q24 for 5 days DULoxetine (CYMBALTA) 30 mg capsule Take 30 mg by mouth once daily. hydrOXYchloroQUINE (PLAQUENIL) 200 mg tablet linezolid (ZYVOX) 600 mg tablet budesonide/formoterol fumarate (SYMBICORT INHALATION) Inhale as instructed. tiotropium bromide (SPIRIVA RESPIMAT INHALATION) Inhale as instructed. leflunomide (ARAVA) 20 mg tablet Take 20 mg by mouth once daily. doxycycline hyclate (VIBRAMYCIN) 100 mg capsule Take 100 mg by mouth twice daily. Risedronate 150 mg tablet Take 150 mg by mouth once every month. In AM with cup of water on empty stomach. Nothing else by mouth and stay upright for 30 min. methotrexate sodium 25 mg/mL soln once each week. montelukast (SINGULAIR) 10 mg tablet once daily. folic acid 1 mg tablet once daily. amoxicillin (POLYMOX, AMOXIL) 500 mg capsule once daily. (Patient not taking: Reported on 03/31/2021 ) predniSONE (DELTASONE) 5 mg tablet twice daily. (Patient not taking: Reported on 03/31/2021 ) BD TUBERCULIN SYRINGE 1 mL 25 x 5/8 syrg Multivitamin capsule Take 1 capsule by mouth once daily. GLUCOSAMINE/CHONDROITIN SULF A (GLUCOSAMINE-CHONDROITIN ORAL) Take by mouth. mometasone (NASONEX) 50 mcg/actuation nasal spray Use 2 Sprays in the nose once daily. No current facility-administered medications for this visit. : ALLERGIES Allergen Reactions Gluten Shortness of Breath Peanuts Shortness of Breath Yeast, Dried Shortness of Breath : PAST SURGICAL HISTORY Procedure Laterality Date ARTHRP KNE CONDYLE&PLATU MEDIAL&LAT COMPARTMENTS Left 08/13/2004 ARTHRP KNE CONDYLE&PLATU MEDIAL&LAT COMPARTMENTS Right 08/13/2014 CARPAL TUNNEL 82,83 x2 each wrist COLONOSCOPY 08/13/2009 FOOT SURGERY HX Right 07/2020 FOOT SURGERY HX Right 11/29/2020 INGUINAL HERNIA REPAIR HX Right 09/13/2014 LX REPAIR RECURRENT VENTRAL HERNIA 11/08/2015 Laparoscopic repair of recurrent ventral hernia PAST SURGICAL HISTORY OF 01/11/1993 kidney stone removal PAST SURGICAL HISTORY OF 08/13/1997 cardiac catherization PAST SURGICAL HISTORY OF Left 08/13/2005 knee revision PAST SURGICAL HISTORY OF 11/24/2022 Kidney stone removal REMOVAL OF PROSTATE 02/10/2013 SHOULDER SURGERY HX Right 08/21/2023 TONSILLECTOMY HX 08/13/1977 FAMILY HISTORY Problem Relation Age of Onset other (negative [Other]) Unknown : Social History Tobacco Use Smoking status: Never Smokeless tobacco: Never Substance Use Topics Alcohol use: No Drug use: No REVIEW OF SYSTEMS see tech note MSK: + as noted in HPI. Physical Exam: Patient is alert and oriented x 3 in NAD. Patient is a 74 year old male who appears well developed,well nourished and with good attention to hygiene and body habitus. Resp 16 Ht 177.8 cm (5' 10) Wt 97.5 kg (215 lb) BMI 30.85 kg/m Vascular: DP and PT pulses are palpable. CFT less than 3 seconds to all digits. Skin temperature iswarm to warm from proximal to distal. No increase in warmth to the right foot. Hair growth is absent. No varicosities noted. Neuro: Light touch intact. Protective sensation diminished at all pedal sites via Nicholson Dany 5.07 monofilament. Foot drop; L Derm: Skin texture and turgor within normal limits. Webspaces 1-4 clean, dry, intact b/l. There is no ulcerations noted,.No surrounding erythema, no purulence, no evidence of infection. No significant hyperkeratotic tissue noted today Musculoskeletal/Orthopaedic: General foot morphology: decreased medial longitudinal arch with plantar prominence at midfoot. 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 +4/5 muscle strength Dorsiflexion, Plantarflexion, Inversion, Eversion, no DF strength to LLE, limited PF strength. No palpable dell noted to achilles tendon. Non palpable AT tendon concerning for chronic rupture. Foot drop noted of LLE. Mild tenderness to palpation of left achilles tendon at mid substance level. No palpable dells. Negative ignacio test. ROM of the 1st MTPJ is decreased without pain or crepitus. ROM of the MTJ/STJ is decreasedwithout pain or crepitus. Ankle joint ROM is decreased. No erythema or edema about the plantar midfoot right. Radiographs: 3 views left foot and ankle obtained and reviewed (04/03/24) Impression: No acute fracture or dislocation. Joint spaces maintained. Increased calcaneal inclination angle and decreased talar declination angle. No bony cysts or tumors. + plantar and posterior superior calcaneal enthesophyte formation. Ankle mortise with adequate triplane alignment. Fibula out to length. No acute fracture or dislocation. No bony cysts or tumors 3 views right foot and ankle obtained and reviewed (04/03/24) Impression: No acute fracture or dislocation. Chronic charcot changes present with collapse of midfoot and rocker bottom deformity present. There is chronic dislocation of the first mpj and lateral deviation of the hallux on the first mpj. Absent distal phalanges of second and third digits. Ankle mortise with adequate triplane alignment. Fibula out to length. No acute fracture or dislocation. 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 The patient was educated on clinical and radiographic findings, diagnosis and treatment plans. Patient state that he understands all that has been explained and all questions were answered to his apparent satisfaction. - Continue AFO's and supportive shoe gear - Continue CBD lotion - Continue gabapentin - Continue daily foot checks. Monitor for any open lesions, wounds, increased redness or swelling as this could be an acute charcot event. - RTC in 2 months Perico Szymanski DPM, PGY-3 I personally saw and evaluated the patient. I reviewed the resident's note. I agree with the resident's assessment and plan unless otherwise noted. Mckinley Guzman DPM, FACFAS documented in this encounterSt. [facility] History of Present illness Narrative* Iram Milian PA-C - 05/13/2024 2:40 PM EDT Images from the original note were not included. [facility] - [address] [facility] [address] Dept: [phone] Dept Loc: [phone] Visit type: Established Patient Reason for Visit: Sinus Problem (For about 2 weeks, coughing lots) and Flu Vaccine (Patient has declined to receive influenza vaccine in the office. /) Assessment and Plan 1. Bronchitis Comments: Acute onset x 2 weeks with progression and worsening of symptoms. Orders: - XR chest 2 views - amoxicillin-clavulanate (Augmentin) 875-125 MG tablet; Take 1 tablet by mouth 2 times daily for 10 days., Starting Sun05/13/2024, Until Sun05/23/2024, Normal - tncdesjimkovzot-spfyinultnfvqzp-NI 30-2-10 MG/5ML syrup; Take 5 mL by mouth as needed for allergies for up to 10 days., Starting Sun05/13/2024, Until Sun05/23/2024 at 2359, Normal Patient presents with 2 weeks worth of symptoms beginning progressive worse with increasing cough congestion some rales noted in the bases of his lungs bilaterally. He is mildly diaphoretic we will request a baseline chest x-ray but will start antibiotics and treated as presumptive bronchitis possible clinical pneumonia. Encourage plenty of rest fluids with close follow-up. Follow up in about 2 weeks (around 05/27/2024). Subjective HPI this is a 74-year-old male with an underlying history of BPH, rheumatoid arthritis, degenerative disc disease, hyperlipidemia and GERD who contacted the call center yesterday for next day acute same-day appointment for concerns of sinus symptoms going on for the last 2 weeks. Patient reports runny nose with clear discharge nasal congestion and a cough that keeps him up all night. Started out on with ongoing cough, feeling hot and sweaty, no doc fever, started as yellow nasal mucous. Did covid test last week was negative. Patient states that the symptoms started shortly after the local [place]. states that one of themusually gets sick sometime around the fair. This year she was fine no one else was sick. He reported increasing cough congestion initially started as a more of a sinus infection with sinus drainage and discharge and congestion is now migrated into his chest. Review of Systems Constitutional: Negative for chills and fever. HENT: Positive for congestion and postnasal drip. Negative for sinus pressure, sore throat and trouble swallowing. Respiratory: Positive for cough and shortness of breath. Cardiovascular: Negative for chest pain. Gastrointestinal: Negative for diarrhea, nausea and vomiting. Musculoskeletal: Negative for myalgias. All other systems reviewed and are negative. Allergies Allergen Reactions Doxycycline Other reaction(s): Hives Outpatient Medications Prior to Visit Medication Sig Dispense Refill albuterol 108 (90 Base) MCG/ACT inhaler CRANBERRY PO Take by mouth. flurbiprofen (Ansaid) 100 MG tablet Take 1 tablet by mouth daily. gabapentin (Neurontin) 400 MG capsule Take 400 mg by mouth Nightly. ipratropium (Atrovent) 0.06 % nasal spray Administer 2 sprays into each nostril 3 times daily for 7days. 15 mL 0 latanoprost (Xalatan) 0.005 % ophthalmic solution place 1 drop into both eyes once daily leflunomide (Arava) 20 MG tablet montelukast (Singulair) 10 MG tablet Multiple Vitamin tablet Take 1 tablet by mouth daily. Spiriva Respimat 1.25 MCG/ACT inhaler Symbicort 160-4.5 MCG/ACT inhaler No facility-administered medications prior to visit. Past Medical History: Diagnosis Date Allergic rhinitis past immunotherpy per Dr. Cao Asthma Berenice Simpson Colon cancer screening 02/2020 Valorie Canales- due 2022 DDD (degenerative disc disease), cervical 2012 Degenerative arthritis of thoracic spine Foot fracture, right 12/2016 History of gastric ulcer 2009 EGD History of left heart catheterization 07/[address] Talavera History of prostate cancer 2012 Dr. Katlin Ng Urology prostatectomy- PSA 09/04 History of renal stone 1992 rec 10/05 cysto Hypercholesterolemia with hypertriglyceridemia 03/2019 attempting diet control Lumbar spine scoliosis Osteoarthritis of both knees 2004 bilat TKR- 2014, per Dr. Amado Osteomyelitis ([facility]) 10/2019 s/p Rt 2nd toe per Dr. Rubi Osteopenia Personal history of colonic polyps 02/2020 Dr. 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 Eugene- due 2022 FOOT SURGERY Right 07/2020 HERNIA REPAIR Right 2014 [employer] INCISIONAL HERNIA REPAIR Right 2015 [facility]- mesh replacement LITHOTRIPSY 1993 PROSTATECTOMY 2013 robotic REVISION TOTAL KNEE ARTHROPLASTY (HISTORICAL) Left 07/2016 Dr. Durand RHINOPLASTY 2004 TOE AMPUTATION Right 11/2019 rt 2nd toe per Dr. Rubi TONSILLECTOMY (HISTORICAL) TOTAL KNEE ARTHROPLASTY Right 2014 [facility] TOTAL KNEE ARTHROPLASTY Left 2004 nataliya UPPER GASTROINTESTINAL ENDOSCOPY 07/31/2016 sylvia Family History Problem Relation Name Age of Onset Heart failure Mother Amita at fib, age 94, copd COPD Father Ariel age 75, nonsmoker Hypertension Sister Claudia alive age 72 No Known Problems Maternal Grandmother late 70s Bone cancer Maternal Grandfather age 60s No Known Problems Paternal Grandmother in 70s , No Known Problems Paternal Grandfather GA? Objective BP 118/80 Pulse 93 Temp 36.1 C (97 F) (Temporal) Ht 5' 10 (1.778 m) Wt 225 lb (102 kg) SpO2 97% BMI 32.28 kg/m Physical Exam Vitals reviewed. Constitutional: General: He is not in acute distress. Appearance: Normal appearance. He is not toxic-appearing. HENT: Right Ear: Tympanic membrane and ear canal normal. Left Ear: Tympanic membrane and ear canal normal. Mouth/Throat: Mouth: Mucous membranes are moist. Pharynx: No oropharyngeal exudate or posterior oropharyngeal erythema. Eyes: General: No scleral icterus. Conjunctiva/sclera: Conjunctivae normal. Pupils: Pupils are equal, round, and reactive to light. Cardiovascular: Rate and Rhythm: Normal rate and regular rhythm. Heart sounds: Normal heart sounds. Pulmonary: Effort: Pulmonary effort is normal. No respiratory distress. Breath sounds: Rales present. No wheezing. Musculoskeletal: Cervical back: Normal range of motion and neck supple. Skin: General: Skin is warm and dry. Neurological: Mental Status: He is alert. Psychiatric: Mood and Affect: Mood normal. Data Reviewed and Summarized Labs: Imaging/Testing: Iram Milian PA-C 05/13/2024 Please note that portions of this note may have been completed with voice recognition software. Documentation reviewed prior to signing but minor errors in washer engineer may have occurred. documented in this encounterSCleveland Clinic Fairview [id number] Telephone encounter Note* Telephone Encounter - Catherine Singh RN - 05/12/2024 9:10 AM EDT S: Patient spoke with [facility] nurse regarding sinus symptoms. B: Onset of symptoms started about two weeks ago. A: Patient reports runny nose with clear discharge, nasal congestion, a cough that keeps him up at night, He has an increased shortness of breath and is using his rescue inhaler. He also reports sinus pressure and pain under bilateral eyes. Denies chest pain, fever, sore throat, earache. Mucinex Cold and Sinus did not help. Patient was COVID negative last week. R: Insurance was verified. Appointment was scheduled for 05/13/24 with Iram Milian PA-C. Instructed patient to jonas insurance card and ID and wear a mask to the office. Advised increase fluids, humidifier or vaporizer for the cough. Patient understands care advice. No further needs at this time. Patient instructed to call back with new or worsening symptoms. Reason for Disposition Sinus congestion (pressure, fullness) present > 10 days Protocols used: Common [id number] [facility] [id number] Miscellaneous Notes* Telephone Encounter - Catherine Singh RN - 05/12/2024 9:10 AM EDT S: Patient spoke with [facility] nurse regarding sinus symptoms. B: Onset of symptoms started about two weeks ago. A: Patient reports runny nose with clear discharge, nasal congestion, a cough that keeps him up at night, He has an increased shortness of breath and is using his rescue inhaler. He also reports sinus pressure and pain under bilateral eyes. Denies chest pain, fever, sore throat, earache. Mucinex Cold and Sinus did not help. Patient was COVID negative last week. R: Insurance was verified. Appointment was scheduled for 05/13/24 with Iram Milian PA-C. Instructed patient to jonas insurance card and ID and wear a mask to the office. Advised increase fluids, humidifier or vaporizer for the cough. Patient understands care advice. No further needs at this time. Patient instructed to call back with new or worsening symptoms. Reason for Disposition Sinus congestion (pressure, fullness) present > 10 days Protocols used: Common [id number] documented in this [facility]09-19-[facility] Instructions* Patient Instructions* Stephanie Díaz DPM - 05/01/2024 1:43 PM EDT Continue AFO's and supportive shoe gear, CBD lotion or oil for neuropathy pain, do not need the THC version Continue daily foot checks. Monitor for any open lesions, wounds, increased redness or swelling as this could be an acute charcot event Gabapentin take 400mg at night then take another pill during the day, discuss this with your primary care provider documented in this encounterSt. Mary'[facility]09-19-[facility] NoteHNO ID: [id number] Author: MCKINLEY GUZMAN DPM Service: ? Author Type: Physician Type: Progress Notes Filed: 05/19/2024 14:02 Note Text: Chief Complaint: LLE achilles follow up a HPI: This 74 year old male with PMH indicated below presents for follow up of achilles tendonitis. Pain to left achilles is 50% improved after the medrol dose pack given at last visit. Right foot wound remains healed. Patient has been wearing AFO. In the process of getting an AFO for the right foot, however previous prescription only said right foot so he was unable to get his left AFO. Still endorses left lower extremity drop foot. Denies any open wounds or lesions. Denies constitional symptoms. He denies any other new pedal complaints today. Previous history: December 2016- medial column arthrodesis by Dr. 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 Take Q8H for 4 days, Take Q12H for 4, Take Q24 for 5 days gabapentin (NEURONTIN) 400 mg capsule Take 1 capsule by mouth daily at bedtime for 180 days. DULoxetine (CYMBALTA) 30 mg capsule Take 30 mg by mouth once daily. hydrOXYchloroQUINE (PLAQUENIL) 200 mg tablet linezolid (ZYVOX) 600 mg tablet budesonide/formoterol fumarate (SYMBICORT INHALATION) Inhale as instructed. tiotropium bromide (SPIRIVA RESPIMAT INHALATION) Inhale as instructed. leflunomide (ARAVA) 20 mg tablet Take 20 mg by mouth once daily. doxycycline hyclate (VIBRAMYCIN) 100 mg capsule Take 100 mg by mouth twice daily. Risedronate 150 mg tablet Take 150 mg by mouth once every month. In AM with cup of water on empty stomach. Nothing else by mouth and stay upright for 30 min. folic acid 1 mg tablet once daily. BD TUBERCULIN SYRINGE 1 mL 25 x 5/8 syrg Multivitamin capsule Take 1 capsule by mouth once daily. mometasone (NASONEX) 50 mcg/actuation nasal spray Use 2 Sprays in the nose once daily. methotrexate sodium 25 mg/mL soln once each week. montelukast (SINGULAIR) 10 mg tablet once daily. amoxicillin (POLYMOX, AMOXIL) 500 mg capsule once daily. (Patient not taking: Reported on 03/31/2021 ) predniSONE (DELTASONE) 5 mg tablet twice daily. (Patient not taking: Reported on 03/31/2021 ) GLUCOSAMINE/CHONDROITIN SULF A (GLUCOSAMINE-CHONDROITIN ORAL) Take by mouth. No current facility-administered medications for this visit. : ALLERGIES Allergen Reactions Gluten Shortness of Breath Peanuts Shortness of Breath Yeast, Dried Shortness of Breath : PAST SURGICAL HISTORY Procedure Laterality Date ARTHRP KNE CONDYLEANDPLATU MEDIALANDLAT COMPARTMENTS Left 08/13/2004 ARTHRP KNE CONDYLEANDPLATU MEDIALANDLAT COMPARTMENTS Right 08/13/2014 CARPAL TUNNEL 82,83 x2 each wrist COLONOSCOPY 08/13/2009 FOOT SURGERY HX Right 07/2020 FOOT SURGERY HX Right 11/29/2020 INGUINAL HERNIA REPAIR HX Right 09/13/2014 LX REPAIR RECURRENT VENTRAL HERNIA 11/08/2015 Laparoscopic repair of recurrent ventral hernia PAST SURGICAL HISTORY OF 01/11/1993 kidney stone removal PAST SURGICAL HISTORY OF 08/13/1997 cardiac catherization PAST SURGICAL HISTORY OF Left 08/13/2005 knee revision PAST SURGICAL HISTORY OF 11/24/2022 Kidney stone removal REMOVAL OF PROSTATE 02/10/2013 SHOULDER SURGERY HX Right 08/21/2023 TONSILLECTOMY HX 08/13/1977 FAMILY HISTORY Problem Relation Age of Onset other (negative [Other]) Unknown : Social History Tobacco Use Smoking status: Never Smokeless tobacco: Never Substance Use Topics Alcohol use: No Drug use: No REVIEW OF SYSTEMS see tech note MSK: + as noted in HPI. Physical Exam: Patient is alert and oriented x 3 in NAD. Patient is a 74 year old male who appears well developed, well nourished and with good attention to hygiene and body habitus. Temp 36.8 ?C (98.3 ?F) Ht 177.8 cm (5' 10) Wt 97.5 kg (215 lb) BMI 30.85 kg/m? Vascular: DP and PT pulses are palpable. CFT less than 3 seconds to all digits. Skin temperature is warm to warm from proximal to distal. No increase in warmth to the right foot. Hair growth is absent. No varicosities noted. Neuro: Light touch intact. Protective sensation diminished at all pedal sites via Nicholson Dany 5.07 monofilament. Foot drop; L Derm: Skin texture and turgor within normal limits. Webspaces 1-4 clean, dry, intact b/l. There is no ulcerations noted,.No surrounding erythema, no purulence, no evidence of infection. + hyperkeratotic tissue medial first met head right foot, no ulcer present after debridement. Musculoskeletal/Orthopaedic: General f (more content not included)...[facility]09-19-2024 History of Present illness Narrative* Mckinley Guzman, DPM - 05/01/2024 1:28 PM EDT Chief Complaint: LLE achilles follow up a HPI: This 74 year old male with PMH indicated below presents for follow up of achilles tendonitis. Pain to left achilles is 50% improved after the medrol dose pack given at last visit. Right foot wound remains healed. Patient has been wearing AFO. In the process of getting an AFO for the right foot, however previous prescription only said right foot so he was unable to get his left AFO. Still endorses left lower extremity drop foot. Denies any open wounds or lesions. Denies constitional symptoms. He denies any other new pedal complaints today. Previous history: December 2016- medial column arthrodesis by Dr. 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 Take Q8H for 4 days, Take Q12H for 4, Take Q24 for 5 days gabapentin (NEURONTIN) 400 mg capsule Take 1 capsule by mouth daily at bedtime for 180 days. DULoxetine (CYMBALTA) 30 mg capsule Take 30 mg by mouth once daily. hydrOXYchloroQUINE (PLAQUENIL) 200 mg tablet linezolid (ZYVOX) 600 mg tablet budesonide/formoterol fumarate (SYMBICORT INHALATION) Inhale as instructed. tiotropium bromide (SPIRIVA RESPIMAT INHALATION) Inhale as instructed. leflunomide (ARAVA) 20 mg tablet Take 20 mg by mouth once daily. doxycycline hyclate (VIBRAMYCIN) 100 mg capsule Take 100 mg by mouth twice daily. Risedronate 150 mg tablet Take 150 mg by mouth once every month. In AM with cup of water on empty stomach. Nothing else by mouth and stay upright for 30 min. folic acid 1 mg tablet once daily. BD TUBERCULIN SYRINGE 1 mL 25 x 5/8 syrg Multivitamin capsule Take 1 capsule by mouth once daily. mometasone (NASONEX) 50 mcg/actuation nasal spray Use 2 Sprays in the nose once daily. methotrexate sodium 25 mg/mL soln once each week. montelukast (SINGULAIR) 10 mg tablet once daily. amoxicillin (POLYMOX, AMOXIL) 500 mg capsule once daily. (Patient not taking: Reported on 03/31/2021 ) predniSONE (DELTASONE) 5 mg tablet twice daily. (Patient not taking: Reported on 03/31/2021 ) GLUCOSAMINE/CHONDROITIN SULF A (GLUCOSAMINE-CHONDROITIN ORAL) Take by mouth. No current facility-administered medications for this visit. : ALLERGIES Allergen Reactions Gluten Shortness of Breath Peanuts Shortness of Breath Yeast, Dried Shortness of Breath : PAST SURGICAL HISTORY Procedure Laterality Date ARTHRP KNE CONDYLE&PLATU MEDIAL&LAT COMPARTMENTS Left 08/13/2004 ARTHRP KNE CONDYLE&PLATU MEDIAL&LAT COMPARTMENTS Right 08/13/2014 CARPAL TUNNEL 82,83 x2 each wrist COLONOSCOPY 08/13/2009 FOOT SURGERY HX Right 07/2020 FOOT SURGERY HX Right 11/29/2020 INGUINAL HERNIA REPAIR HX Right 09/13/2014 LX REPAIR RECURRENT VENTRAL HERNIA 11/08/2015 Laparoscopic repair of recurrent ventral hernia PAST SURGICAL HISTORY OF 01/11/1993 kidney stone removal PAST SURGICAL HISTORY OF 08/13/1997 cardiac catherization PAST SURGICAL HISTORY OF Left 08/13/2005 knee revision PAST SURGICAL HISTORY OF 11/24/2022 Kidney stone removal REMOVAL OF PROSTATE 02/10/2013 SHOULDER SURGERY HX Right 08/21/2023 TONSILLECTOMY HX 08/13/1977 FAMILY HISTORY Problem Relation Age of Onset other (negative [Other]) Unknown : Social History Tobacco Use Smoking status: Never Smokeless tobacco: Never Substance Use Topics Alcohol use: No Drug use: No REVIEW OF SYSTEMS see tech note MSK: + as noted in HPI. Physical Exam: Patient is alert and oriented x 3 in NAD. Patient is a 74 year old male who appears well developed,well nourished and with good attention to hygiene and body habitus. Temp 36.8 C (98.3 F) Ht 177.8 cm (5' 10) Wt 97.5 kg (215 lb) BMI 30.85 kg/m Vascular: DP and PT pulses are palpable. CFT less than 3 seconds to all digits. Skin temperature iswarm to warm from proximal to distal. No increase in warmth to the right foot. Hair growth is absent. No varicosities noted. Neuro: Light touch intact. Protective sensation diminished at all pedal sites via Nicholson Dany 5.07 monofilament. Foot drop; L Derm: Skin texture and turgor within normal limits. Webspaces 1-4 clean, dry, intact b/l. There is no ulcerations noted,.No surrounding erythema, no purulence, no evidence of infection. + hyperkeratotic tissue medial first met head right foot, no ulcer present after debridement. Musculoskeletal/Orthopaedic: General foot morphology: decreased medial longitudinal arch with plantar prominence at midfoot. 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 +4/5 muscle strength Dorsiflexion, Plantarflexion, Inversion, Eversion, no DF strength to LLE, limited PF strength. No palpable dell noted to achilles tendon. Non palpable AT tendon concerning for chronic rupture. Foot drop noted of LLE. Mild tenderness to palpation of left achilles tendon at mid substance level. No palpable dells. Negative ignacio test. ROM of the 1st MTPJ is decreased without pain or crepitus. ROM of the MTJ/STJ is decreasedwithout pain or crepitus. Ankle joint ROM is decreased. No erythema or edema about the plantar midfoot right. Radiographs: 3 views left foot and ankle obtained and reviewed (04/03/24) Impression: No acute fracture or dislocation. Joint spaces maintained. Increased calcaneal inclination angle and decreased talar declination angle. No bony cysts or tumors. + plantar and posterior superior calcaneal enthesophyte formation. Ankle mortise with adequate triplane alignment. Fibula out to length. No acute fracture or dislocation. No bony cysts or tumors 3 views right foot and ankle obtained and reviewed (04/03/24) Impression: No acute fracture or dislocation. Chronic charcot changes present with collapse of midfoot and rocker bottom deformity present. There is chronic dislocation of the first mpj and lateral deviation of the hallux on the first mpj. Absent distal phalanges of second and third digits. Ankle mortise with adequate triplane alignment. Fibula out to length. No acute fracture or dislocation. 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 The patient was educated on clinical and radiographic findings, diagnosis and treatment plans. Patient state that he understands all that has been explained and all questions were answered to his apparent satisfaction. -callus debridement to Left foot - Continue AFO's and supportive shoe gear, dispensed new script for AFO on right to be refurbished if possible or replaced if needed. Another script dispensed since it was only one side. Making new brace for right. -Discussed trying CBD lotion or oil for neuropathy pain, do not need the THC version Continue daily foot checks. Monitor for any open lesions, wounds, increased redness or swelling as this could be an acute charcot event -Rx for Gabapentin given, instructed to try 400mg at night then take another pill during the day tosee if this helps with his neuropathy pain, discuss this with your primary care provider - Continue daily foot checks. Monitor for any open lesions, wounds, increased redness or swelling as this could be an acute charcot event. - RTC in 2-3 weeks Stephanie Díaz DPM PGY-3 I personally saw and evaluated the patient. I reviewed the resident's note. I agree with the resident's assessment and plan unless otherwise noted. Mckinley Guzman DPM, FACFAS * Jean Hardy Tech - 05/01/2024 1:14 PM EDT REVIEW OF SYSTEMS: GENERAL: Well developed, well nourished. No acute distress PAIN: Negative for pain, history of chronic pain or current treatment for chronic pain conditions CARDIOVASCULAR: Negative for chest pain, leg swelling and palpations. MSK: Negative for joint swelling SKIN: Negative for lesions, rash, itching, metal sensitivity NEURO: Numbness/tingling of extremties ENDOCRINE: Negative for diabetic associated symptoms HEMATOLOGY: Negative for excessive bleeding, clots, bleeding disorders. documented [facility] NoteHNO ID: [id number] Author: JEAN HARDY Tech Service: ? Author Type: Policy Issue Clerk Type: Progress Notes Filed: 05/19/2024 14:02 Note Text: REVIEW OF SYSTEMS: GENERAL: Well developed, well nourished. No acute distress PAIN: Negative for pain, history of chronic pain or current treatment for chronic pain conditions CARDIOVASCULAR: Negative for chest pain, leg swelling and palpations. MSK: Negative for joint swelling SKIN: Negative for lesions, rash, itching, metal sensitivity NEURO: Numbness/tingling of extremties ENDOCRINE: Negative for diabetic associated symptoms HEMATOLOGY: Negative for excessive bleeding, clots, bleeding disorders.[facility]08-22-2024 History of Present illness Narrative* Mckinley Guzman, CONNOR - 04/03/2024 3:01 PM EDT Chief Complaint: right foot wound in the setting of Charcot HPI: This 74 year old male with PMH indicated below significant for follow up of bilateral fot. Right foot wound remains healed. Patient has been wearing AFO. Still endorses left lower extremity dropfoot. Denies any open wounds or lesions. Would like new AFO for right side as he is getting rubbingand this causes him pain. Also endorses achilles pain to his left foot now. Denies constitional symp toms. He denies any other new pedal complaints today. Previous history: December 2016- medial column arthrodesis by Dr. 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 DULoxetine (CYMBALTA) 30 mg capsule Take 30 mg by mouth once daily. hydrOXYchloroQUINE (PLAQUENIL) 200 mg tablet linezolid (ZYVOX) 600 mg tablet budesonide/formoterol fumarate (SYMBICORT INHALATION) Inhale as instructed. tiotropium bromide (SPIRIVA RESPIMAT INHALATION) Inhale as instructed. leflunomide (ARAVA) 20 mg tablet Take 20 mg by mouth once daily. doxycycline hyclate (VIBRAMYCIN) 100 mg capsule Take 100 mg by mouth twice daily. Risedronate 150 mg tablet Take 150 mg by mouth once every month. In AM with cup of water on empty stomach. Nothing else by mouth and stay upright for 30 min. folic acid 1 mg tablet once daily. BD TUBERCULIN SYRINGE 1 mL 25 x 5/8 syrg Multivitamin capsule Take 1 capsule by mouth once daily. mometasone (NASONEX) 50 mcg/actuation nasal spray Use 2 Sprays in the nose once daily. methotrexate sodium 25 mg/mL soln once each week. montelukast (SINGULAIR) 10 mg tablet once daily. amoxicillin (POLYMOX, AMOXIL) 500 mg capsule once daily. (Patient not taking: Reported on 03/31/2021 ) predniSONE (DELTASONE) 5 mg tablet twice daily. (Patient not taking: Reported on 03/31/2021 ) GLUCOSAMINE/CHONDROITIN SULF A (GLUCOSAMINE-CHONDROITIN ORAL) Take by mouth. No current facility-administered medications for this visit. : ALLERGIES Allergen Reactions Gluten Shortness of Breath Peanuts Shortness of Breath Yeast, Dried Shortness of Breath : PAST SURGICAL HISTORY 08/13/2004: ARTHRP KNE CONDYLE&PLATU MEDIAL&LAT COMPARTMENTS; Left 08/13/2014: ARTHRP KNE CONDYLE&PLATU MEDIAL&LAT COMPARTMENTS; Right 82,83: CARPAL TUNNEL Comment: x2 each wrist 08/13/2009: COLONOSCOPY 07/2020: FOOT SURGERY HX; Right 11/29/2020: FOOT SURGERY HX; Right 09/13/2014: INGUINAL HERNIA REPAIR HX; Right 11/08/2015: LX REPAIR RECURRENT VENTRAL HERNIA Comment: Laparoscopic repair of recurrent ventral hernia 01/11/1993: PAST SURGICAL HISTORY OF Comment: kidney stone removal 08/13/1997: PAST SURGICAL HISTORY OF Comment: cardiac catherization 08/13/2005: PAST SURGICAL HISTORY OF; Left Comment: knee revision 11/24/2022: PAST SURGICAL HISTORY OF Comment: Kidney stone removal 02/10/2013: REMOVAL OF PROSTATE 08/21/2023: SHOULDER SURGERY HX; Right 08/13/1977: TONSILLECTOMY HX FAMILY HISTORY Problem Relation Age of Onset other (negative [Other]) Unknown : Social History Tobacco Use Smoking status: Never Smokeless tobacco: Never Substance Use Topics Alcohol use: No Drug use: No REVIEW OF SYSTEMS see tech note MSK: + as noted in HPI. Physical Exam: Patient is alert and oriented x 3 in NAD. Patient is a 73 year old male who appears well developed,well nourished and with good attention to hygiene and body habitus. Temp 36.8 C (98.3 F) Ht 177.8 cm (5' 10) Wt 102.5 kg (226 lb) BMI 32.43 kg/m Vascular: DP and PT pulses are palpable. CFT less than 3 seconds to all digits. Skin temperature iswarm to warm from proximal to distal. No increase in warmth to the right foot. Hair growth is absent. No varicosities noted. Neuro: Light touch intact. Protective sensation diminished at all pedal sites via Nicholson Dany 5.07 monofilament. Foot drop; L Derm: Skin texture and turgor within normal limits. Webspaces 1-4 clean, dry, intact b/l. There is a no ulceration noted, healed to the plantar 1st MTP right foot No surrounding erythema, no purulence, no evidence of infection. + hyperkeratotic tissue medial first met head right foot. Musculoskeletal/Orthopaedic: General foot morphology: decreased medial longitudinal arch with plantar prominence at midfoot. 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 +4/5 muscle strength Dorsiflexion, Plantarflexion, Inversion, Eversion, no DF strength to LLE, limited PF strength. No palpable dell noted to achilles tendon. Non palpable AT tendon concerning for chronic rupture. Foot drop noted of LLE. Pain to palpation of left achilles tendon at mid substance level. No palpable dells. Negative ignacio test. ROM of the 1st MTPJ is decreased without pain or crepitus. ROM of the MTJ/STJ is decreasedwithout pain or crepitus. Ankle joint ROM is decreased. No erythema or edema about the plantar midfoot right. Radiographs: 3 views left foot and ankle obtained and reviewed (04/03/24) Impression: No acute fracture or dislocation. Joint spaces maintained. Increased calcaneal inclination angle and decreased talar declination angle. No bony cysts or tumors. + plantar and posterior superior calcaneal enthesophyte formation. Ankle mortise with adequate triplane alignment. Fibula out to length. No acute fracture or dislocation. No bony cysts or tumors 3 views right foot and ankle obtained and reviewed (04/03/24) Impression: No acute fracture or dislocation. Chronic charcot changes present with collapse of midfoot and rocker bottom deformity present. There is chronic dislocation of the first mpj and lateral deviation of the hallux on the first mpj. Absent distal phalanges of second and third digits. Ankle mortise with adequate triplane alignment. Fibula out to length. No acute fracture or dislocation. 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 The patient was educated on clinical and radiographic findings, diagnosis and treatment plans. Patient state that he understands all that has been explained and all questions were answered to his apparent satisfaction. - Continue AFO's and supportive shoe gear, dispensed new script for AFO on right to be refurbished if possible or replaced if needed -Rx prednisone - Continue daily foot checks. Monitor for any open lesions, wounds, increased redness or swelling as this could be an acute charcot event. - RTC in 2-[address] DPM PGY-3 I personally saw and evaluated the patient. I reviewed the resident's note. I agree with the resident's assessment and plan unless otherwise noted. Mckinley Guzman DPM, FACFAS * Jean Hardy Tech - 04/03/2024 2:55 PM EDT REVIEW OF SYSTEMS: GENERAL: Well developed, well nourished. No acute distress PAIN: Negative for pain, history of chronic pain or current treatment for chronic pain conditions CARDIOVASCULAR: Negative for chest pain, leg swelling and palpations. MSK: Negative for joint swelling SKIN: Negative for lesions, rash, itching, metal sensitivity NEURO: Numbness/tingling of extremties ENDOCRINE: Negative for diabetic associated symptoms HEMATOLOGY: Negative for excessive bleeding, clots, bleeding disorders. documented in this encounter[facility] [facility] History of Present illness Narrative* Mckinley Guzman Williams, CONNOR - 11/29/2023 1:00 PM EDT Chief Complaint: right foot wound in the setting of Charcot HPI: This 73 year old male with PMH indicated below significant for follow up of his wound on his right foot. Right foot wound remains healed. Patient has been wearing AFO. Still endorses left lower extremity drop foot. Denies any open wounds or lesions. Has not noticed any acute charcot events. Overall feels stable in AFO. Denies constitional symptoms. He denies any other new pedal complaints today. Previous history: December 2016- medial column arthrodesis by Dr. 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 hydrOXYchloroQUINE (PLAQUENIL) 200 mg tablet linezolid (ZYVOX) 600 mg tablet budesonide/formoterol fumarate (SYMBICORT INHALATION) Inhale as instructed. tiotropium bromide (SPIRIVA RESPIMAT INHALATION) Inhale as instructed. leflunomide (ARAVA) 20 mg tablet Take 20 mg by mouth once daily. Risedronate 150 mg tablet Take 150 mg by mouth once every month. In AM with cup of water on empty stomach. Nothing else by mouth and stay upright for 30 min. montelukast (SINGULAIR) 10 mg tablet once daily. folic acid 1 mg tablet once daily. Multivitamin capsule Take 1 capsule by mouth once daily. mometasone (NASONEX) 50 mcg/actuation nasal spray Use 2 Sprays in the nose once daily. gabapentin (NEURONTIN) 400 mg capsule Take 1 capsule by mouth daily at bedtime for 180 days. doxycycline hyclate (VIBRAMYCIN) 100 mg capsule Take 100 mg by mouth twice daily. methotrexate sodium 25 mg/mL soln once each week. amoxicillin (POLYMOX, AMOXIL) 500 mg capsule once daily. (Patient not taking: Reported on 03/31/2021 ) predniSONE (DELTASONE) 5 mg tablet twice daily. (Patient not taking: Reported on 03/31/2021 ) BD TUBERCULIN SYRINGE 1 mL 25 x 12/18 syrg GLUCOSAMINE/CHONDROITIN SULF A (GLUCOSAMINE-CHONDROITIN ORAL) Take by mouth. No current facility-administered medications for this visit. : ALLERGIES Allergen Reactions Gluten Shortness of Breath Peanuts Shortness of Breath Yeast, Dried Shortness of Breath : PAST SURGICAL HISTORY Procedure Laterality Date ARTHRP KNE CONDYLE&PLATU MEDIAL&LAT COMPARTMENTS Left 08/13/2004 ARTHRP KNE CONDYLE&PLATU MEDIAL&LAT COMPARTMENTS Right 08/13/2014 CARPAL TUNNEL 82,83 x2 each wrist COLONOSCOPY 08/13/2009 FOOT SURGERY HX Right 07/2020 FOOT SURGERY HX Right 11/29/2020 INGUINAL HERNIA REPAIR HX Right 09/13/2014 LX REPAIR RECURRENT VENTRAL HERNIA 11/08/2015 Laparoscopic repair of recurrent ventral hernia PAST SURGICAL HISTORY OF 01/11/1993 kidney stone removal PAST SURGICAL HISTORY OF 08/13/1997 cardiac catherization PAST SURGICAL HISTORY OF Left 08/13/2005 knee revision PAST SURGICAL HISTORY OF 11/24/2022 Kidney stone removal REMOVAL OF PROSTATE 02/10/2013 SHOULDER SURGERY HX Right 08/21/2023 TONSILLECTOMY HX 08/13/1977 FAMILY HISTORY Problem Relation Age of Onset other (negative [Other]) Unknown : Social History Tobacco Use Smoking status: Never Smokeless tobacco: Never Substance Use Topics Alcohol use: No Drug use: No REVIEW OF SYSTEMS see tech note MSK: + as noted in HPI. Physical Exam: Patient is alert and oriented x 3 in NAD. Patient is a 73 year old male who appears well developed,well nourished and with good attention to hygiene and body habitus. Resp 20 Ht 177.8 cm (5' 10) Wt 106.6 kg (235 lb) BMI 33.72 kg/m Vascular: DP and PT pulses are palpable. CFT less than 3 seconds to all digits. Skin temperature iswarm to warm from proximal to distal. No increase in warmth to the right foot. Hair growth is absent. No varicosities noted. Neuro: Light touch intact. Protective sensation diminished at all pedal sites via Nicholson Dany 5.07 monofilament. Foot drop; L Derm: Skin texture and turgor within normal limits. Webspaces 1-4 clean, dry, intact b/l. There is a no ulceration noted, healed to the plantar 1st MTP right foot No surrounding erythema, no purulence, no evidence of infection. No hyperkeratotic tissue medial midfoot right foot. Musculoskeletal/Orthopaedic: General foot morphology: decreased medial longitudinal arch with plantar prominence at midfoot. 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 +4/5 muscle strength Dorsiflexion, Plantarflexion, Inversion, Eversion, no DF strength to LLE, limited PF strength. No palpable dell noted to achilles tendon. Non palpable AT tendon concerning for chronic rupture. Foot drop noted of LLE. ROM of the 1st MTPJ is decreased without pain or crepitus. ROM of the MTJ/STJ is decreasedwithout pain or crepitus. Ankle joint ROM is decreased. No erythema or edema about the plantar midfoot right. 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 The patient was educated on clinical and radiographic findings, diagnosis and treatment plans. Patient state that he understands all that has been explained and all questions were answered to his apparent satisfaction. - Continue AFO's and supportive shoe gear - Continue daily foot checks. Monitor for any open lesions, wounds, increased redness or swelling as this could be an acute charcot event. - RTC in 6 months. Kyler Flores DPM PGY-3 I personally saw and evaluated the patient. I reviewed the resident's note. I agree with the resident's assessment and plan unless otherwise noted. Mckinley Guzman DPM, FACFAS documented in [facility] Note Date of Service November 07, 2023 Subjective The patient was sitting in bed upon examination. Patient denies any chest pain, shortness of breath, dizziness, lightheadedness, nausea or vomiting, or calf pain. No adverse overnight events. Pain has been controlled on medications. Patient still has some numbness in the right upper extremity from the block. Pain has been well-controlled. He has no complaints this morning. Objective Vitals and Measurements T: 36.7 C (Oral) TMIN: 36 C TMAX: 36.7 C (Oral) HR: 72 RR: 18 BP: 116/79 SpO2: 95% HT: 177.8 cm WT: 105 kg BMI: 33.21 Intake and Output 7AM Yesterday to 7AM Today Intake and Output (Last 24 hours) Intake Administration Information 1200.00 Output Urine Voided 400.00 Intra-Op EBL 100.00 Urine Count 1.00 Total Summary Total Intake 1200.00 Total Output 500.00 Fluid Balance 700.00 Physical Exam Vital signs stable, afebrile. Patient currently using CPAP overnight Dressing is clean dry and intact UltraSling fitting appropriately Sensation is intact to axillary, radial, median, and ulnar distribution Motor intact with patient able to make okay sign, cross fingers, and thumbs up Weight Dosing Weight: 105 kg (11/06/23) Dosing Weight: 105 kg (11/06/23) Medications Medications (27) Active Scheduled: (17) acetaminophen 500 mg Tablet 1,000 mg 2 tab(s), Oral, q6hr albuterol - ipratropium 2.5 mg-0.5 mg/3 mL Inhal Reba UD 3 mL, Inhalation, QIDRT aspirin 81 mg EC 81 mg 1 tab(s), Oral, BID azelastine 0.1% nasal spray 30 mL 1 spray(s), Nasal, BID bisacodyl 5 mg EC tablet 10 mg 2 tab(s), Oral, Once budesonide 0.5 mg/2 mL Susp UD 0.5 mg 2 mL, Inhalation, BIDRT docusate sodium 100 mg Capsule 100 mg 1 cap(s), Oral, BID docusate-senna (Senokot S) 50 mg-8.6 mg Tablet 2 tab(s), Oral, BID famotidine 20 mg tablet 20 mg 1 tab(s), Oral, qDay gabapentin 400 mg capsule 400 mg 1 cap(s), Oral, qDay hydroxychloroquine 200 mg tablet 200 mg 1 tab(s), Oral, qDay latanoprost ophthalmic 0.005% Solution 1 drop(s), Ophthalmic, qHS leflunomide 20 mg Tablet 20 mg 1 tab(s), Oral, qDay magnesium hydroxide 8% Suspension 30 mL UD 30 mL, Oral, Daily meloxicam 7.5 mg tablet 7.5 mg 1 tab(s), Oral, BIDM montelukast 10 mg Tablet 10 mg 1 tab(s), Oral, qPM sulfamethoxazole-trimethoprim 800 mg-160 mg tablet 1 tab(s), Oral, BID Continuous: (1) Lactated Ringers 1000 mL 1,000 mL, Intravenous, 125 mL/hr PRN: (9) acetaminophen 325 mg Tablet 650 mg 2 tab(s), Oral, q4h diphenhydramine 25 mg tablet 25 mg 1 tab(s), Oral, q6h diphenhyDRAMINE 50 mg/mL (1 mL) INJ 25 mg 0.5 mL, IV Push, q6h ketorolac 30 mg/mL (1 mL) vial 15 mg 0.5 mL, IV Push, q6h ondansetron 2 mg/ 1 mL 2 mL INJ 4 mg 2 mL, IV Push, q8h oxycodone 5 mg tablet (immediate release) 5 mg 1 tab(s), Oral, q4h oxycodone 5 mg tablet (immediate release) 10 mg 2 tab(s), Oral, q4h prochlorperazine 10 mg/2 mL vial 5 mg 1 mL, IV Push, q6h sodium biphosphate-sodium phosphate 19 gm-7 gm Enema 133 mL, Rectal, qDay Lab Results 11/06 05:12 WBC: 6.9 Hgb: 14.0 Hct: 40.5 L Platelet: 256 Neutrophil %: 75.5 Glucose Level: 122 H Sodium Level: 139 Potassium Level: 4.8 BUN: 16 Creatinine Lvl (s): 1.30 11/05 10:27 WBC: 8.1 Hgb: 14.0 Hct: 39.8 L Platelet: 218 Neutrophil %: 64.3 Glucose Level: 85 Sodium Level: 137 Potassium Level: 4.0 BUN: 15 Creatinine Lvl (s): 1.20 EKG No qualifying data available. 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 Continue pain medications: Tylenol and oxycodone. Patient will resume his flurbiprofen at home. 3. DVT prophylaxis: Take 81 mg aspirin twice daily with food for 2 weeks postoperatively for DVT prophylaxis. Patient denies past history of DVT or pulmonary embolism 4. Physical therapy: Continue with UltraSling at all times. Okay to take off sling for elbow range of motion and pendulum exercises 2-3 times daily. No range of motion of the operative shoulder. Giacomo outpatient physical therapy after the 2-week follow-up at [facility] [place]. 5. H & H: 14.0/40.5, asymptomatic. Labs have been reviewed in which they are stable and no needfor further treatment 6. Encouraged incentive spirometry 7. Continue postoperative medical management per medicine 8. Postoperative constipation: Discussed with the patient to continue stool softener until first bowel movement. After first bowel movement patient can then take as needed. They were also instructed that if they are not able to have a bowel movement within 3 days they are to contact our office for change of medication. Patient voiced understanding. 9. Continue antibiotics for 2 weeks postoperatively due to revision total shoulder arthroplasty. Patient is currently placed on Bactrim twice daily for 2 weeks. 10. Disposition: Plan will be for discharge home this afternoon as long as patient is medically stable, tolerates therapy, and pain is adequately controlled. He will require follow-up appointments with [facility] [place] on November 19, 2023. He will also require scheduled physical therapy to begin after the orthopedic 2-week postoperative visit on November 19, 2023 or November. Case will be discussed with neonatal social worker to get those appointments scheduled. Patient would like his prescriptions E scribed to Sel[facility] Zidisha in [facility]. He will follow-up as instructed. We discussed in detail all above medications. All questions were answered. He will remove the Mepilex dressing 5 days postoperatively. He can shower with this dressing. Once the dressing is removed he is to only place gentle soap and water over the incision for 6 weeks postoperatively. Upon discharge she will contact her office with any concerns or questions. Patient states he has the Tylenol, aspirin, and senna at home. I have reviewed the [place] Automated Rx Reporting System (OARRS) report for this patient for refill pattern and other prescriber involvement as part of the appropriate surveillance for the provision ofacute and chronic controlled medications. The report was requested and reviewed on the date of thisentry, and was considered in the prescribing process This dictation was created using voice recognition software. Phonetic and/or grammatical errors mayexist. Ordered: sulfamethoxazole-trimethoprim, Start: 11/07/23 9:00:00 EDT, Dose = 1 tab(s), Tab, Oral, BID, 11/07/23 6:51:00 EDT Digitally Signed by BRANDON FINNEY PA-C on 11/07/2023 06:[address] [facility]03-27-2024 Note Discharge Instructions Thank you for allowing [facility] to assist you with your healthcare needs. The following is importantdischarge information regarding your hospital visit. 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 Follow-up as scheduled. Where: [address] [place] [address]- [phone] Follow Up with BRANDON FINNEY PA-C, Orthopedic When Why: This is your post-op appointment. Follow-up as scheduled. Where: [facility] [address] [place] [address] [place] [address]- The Following Activity and Diet Have Been Ordered for You FOLLOW POST-OP INSTRUCTIONS The Following Equipment Has Been Ordered for You SLING Allergies Brewers Yeast (Diarrhea) Coffee Medications Please ask your primary doctor or pharmacist before taking any other medication not listed, including over the counter drugs, herbal medications, vitamins and or supplements as they may interact withyour home medications. 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 drink plenty of fluids Pickup at [facility] #[id number] Changed oxyCODONE (oxyCODONE 5 mg oral tablet ( IMMEDIATE release )) See instructions 1-2 tab(s) Oral q4h Unchanged acetaminophen (Tylenol) 1,000 Milligram by mouth Three (3) times a day Unchanged aspirin 81 Milligram by mouth Two (2) times a day Duration: 14 Days Take 81 mg aspirin twice daily with food for 2 weeks postoperatively for DVT prophylaxis. Unchanged azelastine nasal (Astelin) 1 spray(s) in the nose Two (2) times a day Unchanged budesonide-formoterol (Symbicort 160 mcg-4.5 mcg/ inh Inhaler) 2 puff(s) by inhalation Every day Unchanged chlorhexidine topical (chlorhexidine 0.12% oral rinse liquid) 15 Milliliter by mouth Two (2) times a day Unchanged chondroitin/ glucosamine/ methylsulfonylmethane (Glucosamine Chondroitin MSM Complex) 1 tab(s) by mouth Two (2) times a day Unchanged famotidine (Pepcid 20 mg oral tablet) 1 tab(s) by mouth Once a day Duration: 14 Days Pickup at [facility] #[id number] Unchanged flurbiprofen (flurbiprofen 100 mg oral tablet) 1 tab(s) by mouth Daily at bedtime Unchanged gabapentin (gabapentin 400 mg oral capsule) 1 cap by mouth Once a day Unchanged herbal/ nutritional product (cranberry oral tablet) 1 tab(s) by mouth Every day Unchanged hydroxychloroquine (hydroxychloroquine 200 mg oral tablet) 1 tab(s) by mouth Once a day Unchanged latanoprost ophthalmic (latanoprost 0.005% ophthalmic solution) 1 Drops Ophthalmic Daily at bedtime Unchanged leflunomide (leflunomide 20 mg oral tablet) 1 tab(s) by mouth Once a day Unchanged mometasone nasal (Nasonex 50 mcg/ inh nasal spray) 2 spray(s) in the nose Every day as needed for for allergy symptoms Unchanged montelukast (montelukast 10 mg oral tablet) 1 tab(s) by mouth Once a day Unchanged multivitamin (Multivitamin) 1 tab(s) by mouth Every day Unchanged tiotropium (Spiriva Respimat 1.25 mcg/ inh inhalation aerosol) 2 puff(s) by inhalation Once a day Pharmacy Information [facility] #[id number]: [address]in [address] [place], [place] [id number] [phone] Please take this list to your next doctor s visit. Bring all medications you take, including over the counter medications, herbals and other supplements with you to your doctor s visit. Patients and families are reminded to discard old lists and to update any records with all medication providers or retail pharmacies. Education Materials [facility] Post-operative Instructions PLEASE FOLLOW [facility] POST-OP INSTRUCTIONS GIVEN WATCH FOR SIGNS OF INFECTION: call the office ([phone]) if experencing any of the following: (Usually appears 36-48 hours after surgery) Increased temperature (101 degrees Fahrenheit or higher) Redness or swelling Increased uncontrolled pain Foul odor or drainage Calf discomfort Significant swelling Or if having any chest pain, shortness of breath, or difficulty breathing or swallowing call the office or go the nearest Emergency Room. If you have any questions, please call your doctor at the number listed on your follow up instructions. Form: 338A ([id number]) R: 12/17 Additional Information VACCINATE! IT SAVES LIVES! Members of the community who have not yet received the COVID-19 vaccine and would like to receive it can visit one of [facility] vaccine clinics. There are many vaccine clinic locations within the [facility]. For locations and available times, please visit [email or web address].[email or web address] It is important to note that some COVID mobile vaccine clinics are held outdoors and may be canceled in rainy or stormy conditions. To learn more about pediatric vaccinations (ages 5-11), we invite you to visit the [facility] webpage. [email or web address] learn more about the COVID-19 vaccine, we invite you to visit the CDC website for a list of frequently asked questions.https://www.cdc.gov/coronavirus/2019-ncov/vaccines/faq.html [facility] Patient Portal Access Instructions: Stay connected with your healthcare team and access your personal medical information anytime with the [facility] Patient Portal. Please follow the directions below to create your [facility] account: 1.Access the email account you provided upon registration to the hospital/physician office.2.Look for an invitation email from [facility].3.Open the email and access the invitation link: AcceptInvitation to [facility].4.Fill in the required leblanc to create your account. To access your account, visit [email or web address]. Click the blue button labeled Access Patient Portal and then log in with the username and password that you created in the steps above. You will be able to view your test results, lab results, a summary of your visits, upcoming appointments and more. There is also a convenient messaging option where you can send secure messages to your p rovider. In addition, you will have the ability to download any documents or summaries to your computer and/or send the information securely to a physician. Remember that your healthcare information is confidential, so carefully consider who you will allowto register on the [facility] Patient Portal for access to your information. You can also access the [facility] Patient Portal on the [facility] sean. Simply click on Patient Portal and then log into your account. If you would like to receive a full copy of your medical records, please contact the [facility] Medical Records Department by calling [phone], Sunday through Sunday between 8 a.m. and 4:30 p.m. HOW TO SAFELY DISPOSE OF PRESCRIPTION MEDICATIONS Please use one of the following methods to safely dispose of your unused medications. 1.Use a drug disposal kit: the drug disposal pouch allows you to safely discard your old and unuseddrugs. Ask your nurse to give you one when you are discharged.2.Visit a local take-back location: Many local pharmacies and police departments have programs that collect old and unwanted prescriptiondrugs. Call your local pharmacy or go to http://bit.ly/7J6St3p to find one close to you.3.Make use of household items: Use cat litter or old coffee grounds to dispose medications if other options arenot available. Mix your drugs with these household products, seal them in an airtight container andthrow it into the garbage. Call [facility]: [phone] to be sure your drugs can be disposed of in this way. Some medicines may require a different approach.4.Never flush your medications down the toilet. IF YOU HAVE BEEN PRESCRIBED AN OPIOID FOR PAIN If you have been prescribed an opioid (such as hydrocodone, oxycodone or morphine), it is critical to understand the possible side effects and risks of opioid pain medications. Even when taken as directed, opioids can have several side effects including: Tolerance, meaning you might need to take more of a medication for the same pain relief. Nausea, vomiting and/or constipation. Sleepiness, dizziness, dry mouth, confusion, depression or itching. Physical dependence, meaning you have withdrawal symptoms when a medication is stopped, can develop within a few days. KNOW YOUR RESPONSIBILITIES It is important to know exactly how much and how often to take the opioid pain medications you are prescribed. Never take opioids in higher amounts or more often than prescribed. Do not combine opioids with alcohol or other drugs that cause drowsiness, such as benzodiazepines, also known as benzos, including diazepam and alprazolam, muscle relaxants or sleep aids. Never sell or share prescription opioids. This is illegal. Store opioids in a secure place and out of reach of others (including children, family, friends and visitors). The last page of this document has been signed and retained as a CHART COPY. Signatures Patient Education Materials Katie Meraz Post-op Instruction 03/2017 (47106) Medication Leaflets My discharge plan and instructions have been reviewed and explained to me and IJANIYA FREDRICK Lunderstand my current condition and have read and understand these discharge instructions. I have received a written copy of the plan/instructions. If I have questions, I am aware that I should contact my doctor. Patient/Material Man Signature: Date/Time: Relationship to Patient: Witness Name/Signature: Date/Time: [facility]03-27-2024 Hospital Discharge instructions Patient Education 11/07/2023 06:58:12 5 - [facility] Post-op Instruction 03/2017 (05378) [facility] Post-operative Instructions PLEASE FOLLOW [facility] POST-OP INSTRUCTIONS GIVEN WATCH FOR SIGNS OF INFECTION: call the office ([phone]) if experencing any of the following: (Usually appears 36-48 hours after surgery) Increased temperature (101 degrees Fahrenheit or higher) Redness or swelling Increased uncontrolled pain Foul odor or drainage Calf discomfort Significant swelling Or if having any chest pain, shortness of breath, or difficulty breathing or swallowing call the office or go the nearest Emergency Room. If you have any questions, please call your doctor at the number listed on your follow up instructions. Form: 338A [id number]) R: 12/17 Follow Up Care 11/06/2023 06:59:43 With:BRANDON FINNEY PA-C, Orthopedic Address: [facility] [address] [place] [phone]- When:11/19/2023 09:00:00 Comments:This is your post-op appointment. Follow-up as scheduled. With:[facility] Address: [address] [place] [phone] When:11/19/2023 13:00:00 Comments:This is your first physical therapy appointment. Follow-up as scheduled. [facility] 03-27-2024 Note Date of Service November 07, 2023 Subjective The patient was sitting in bed upon examination. Patient denies any chest pain, shortness of breath, dizziness, lightheadedness, nausea or vomiting, or calf pain. No adverse overnight events. Pain has been controlled on medications. Patient still has some numbness in the right upper extremity from the block. Pain has been well-controlled. He has no complaints this morning. Objective Vitals and Measurements T: 36.7 C (Oral) TMIN: 36 C TMAX: 36.7 C (Oral) HR: 72 RR: 18 BP: 116/79 SpO2: 95% HT: 177.8 cm WT:105 kg BMI: 33.21 Intake and Output 7AM Yesterday to 7AM Today Intake and Output (Last 24 hours) Intake Administration Information 1200.00 Output Urine Voided 400.00 Intra-Op EBL 100.00 Urine Count 1.00 Total Summary Total Intake 1200.00 Total Output 500.00 Fluid Balance 700.00 Physical Exam Vital signs stable, afebrile. Patient currently using CPAP overnight Dressing is clean dry and intact UltraSling fitting appropriately Sensation is intact to axillary, radial, median, and ulnar distribution Motor intact with patient able to make okay sign, cross fingers, and thumbs up Weight Dosing Weight: 105 kg (11/06/23) Dosing Weight: 105 kg (11/06/23) Medications Medications (27) Active Scheduled: (17) acetaminophen 500 mg Tablet 1,000 mg 2 tab(s), Oral, q6hr albuterol - ipratropium 2.5 mg-0.5 mg/3 mL Inhal Reba UD 3 mL, Inhalation, QIDRT aspirin 81 mg EC 81 mg 1 tab(s), Oral, BID azelastine 0.1% nasal spray 30 mL 1 spray(s), Nasal, BID bisacodyl 5 mg EC tablet 10 mg 2 tab(s), Oral, Once budesonide 0.5 mg/2 mL Susp UD 0.5 mg 2 mL, Inhalation, BIDRT docusate sodium 100 mg Capsule 100 mg 1 cap(s), Oral, BID docusate-senna (Senokot S) 50 mg-8.6 mg Tablet 2 tab(s), Oral, BID famotidine 20 mg tablet 20 mg 1 tab(s), Oral, qDay gabapentin 400 mg capsule 400 mg 1 cap(s), Oral, qDay hydroxychloroquine 200 mg tablet 200 mg 1 tab(s), Oral, qDay latanoprost ophthalmic 0.005% Solution 1 drop(s), Ophthalmic, qHS leflunomide 20 mg Tablet 20 mg 1 tab(s), Oral, qDay magnesium hydroxide 8% Suspension 30 mL UD 30 mL, Oral, Daily meloxicam 7.5 mg tablet 7.5 mg 1 tab(s), Oral, BIDM montelukast 10 mg Tablet 10 mg 1 tab(s), Oral, qPM sulfamethoxazole-trimethoprim 800 mg-160 mg tablet 1 tab(s), Oral, BID Continuous: (1) Lactated Ringers 1000 mL 1,000 mL, Intravenous, 125 mL/hr PRN: (9) acetaminophen 325 mg Tablet 650 mg 2 tab(s), Oral, q4h diphenhydramine 25 mg tablet 25 mg 1 tab(s), Oral, q6h diphenhyDRAMINE 50 mg/mL (1 mL) INJ 25 mg 0.5 mL, IV Push, q6h ketorolac 30 mg/mL (1 mL) vial 15 mg 0.5 mL, IV Push, q6h ondansetron 2 mg/ 1 mL 2 mL INJ 4 mg 2 mL, IV Push, q8h oxycodone 5 mg tablet (immediate release) 5 mg 1 tab(s), Oral, q4h oxycodone 5 mg tablet (immediate release) 10 mg 2 tab(s), Oral, q4h prochlorperazine 10 mg/2 mL vial 5 mg 1 mL, IV Push, q6h sodium biphosphate-sodium phosphate 19 gm-7 gm Enema 133 mL, Rectal, qDay Lab Results 11/06 05:12 WBC: 6.9 Hgb: 14.0 Hct: 40.5 L Platelet: 256 Neutrophil %: 75.5 Glucose Level: 122 H Sodium Level: 139 Potassium Level: 4.8 BUN: 16 Creatinine Lvl (s): 1.30 11/05 10:27 WBC: 8.1 Hgb: 14.0 Hct: 39.8 L Platelet: 218 Neutrophil %: 64.3 Glucose Level: 85 Sodium Level: 137 Potassium Level: 4.0 BUN: 15 Creatinine Lvl (s): 1.20 EKG No qualifying data available. 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 Continue pain medications: Tylenol and oxycodone. Patient will resume his flurbiprofen at home. 3. DVT prophylaxis: Take 81 mg aspirin twice daily with food for 2 weeks postoperatively for DVT prophylaxis. Patient denies past history of DVT or pulmonary embolism 4. Physical therapy: Continue with UltraSling at all times. Okay to take off sling for elbow range of motion and pendulum exercises 2-3 times daily. No range of motion of the operative shoulder. Giacomo outpatient physical therapy after the 2-week follow-up at [facility] [place]. 5. H & H: 14.0/40.5, asymptomatic. Labs have been reviewed in which they are stable and no needfor further treatment 6. Encouraged incentive spirometry 7. Continue postoperative medical management per medicine 8. Postoperative constipation: Discussed with the patient to continue stool softener until first bowel movement. After first bowel movement patient can then take as needed. They were also instructed that if they are not able to have a bowel movement within 3 days they are to contact our office for change of medication. Patient voiced understanding. 9. Continue antibiotics for 2 weeks postoperatively due to revision total shoulder arthroplasty. Patient is currently placed on Bactrim twice daily for 2 weeks. 10. Disposition: Plan will be for discharge home this afternoon as long as patient is medically stable, tolerates therapy, and pain is adequately controlled. He will require follow-up appointments with [facility] [place] on November 19, 2023. He will also require scheduled physical therapy to begin after the orthopedic 2-week postoperative visit on November 19, 2023 or November. Case will be discussed with neonatal social worker to get those appointments scheduled. Patient would like his prescriptions E scribed to Sel[facility]ita in [facility]. He will follow-up as instructed. We discussed in detail all above medications. All questions were answered. He will remove the Mepilex dressing 5 days postoperatively. He can shower with this dressing. Once the dressing is removed he is to only place gentle soap and water over the incision for 6 weeks postoperatively. Upon discharge she will contact her office with any concerns or questions. Patient states he has the Tylenol, aspirin, and senna at home. I have reviewed the [place] Automated Rx Reporting System (OARRS) report for this patient for refill pattern and other prescriber involvement as part of the appropriate surveillance for the provision ofacute and chronic controlled medications. The report was requested and reviewed on the date of thisentry, and was considered in the prescribing process This dictation was created using voice recognition software. Phonetic and/or grammatical errors mayexist. Ordered: sulfamethoxazole-trimethoprim, Start: 11/07/23 9:00:00 EDT, Dose = 1 tab(s), Tab, Oral, BID, 11/07/23 6:51:00 EDT Digitally Signed by BRANDON FINNEY PA-C on 11/07/2023 06:57 AM [facility] [id number] Note Date of Service November 07, 2023 Subjective The patient was sitting in bed upon examination. Patient denies any chest pain, shortness of breath, dizziness, lightheadedness, nausea or vomiting, or calf pain. No adverse overnight events. Pain has been controlled on medications. Patient still has some numbness in the right upper extremity from the block. Pain has been well-controlled. He has no complaints this morning. Objective Vitals and Measurements T: 36.7 C (Oral) TMIN: 36 C TMAX: 36.7 C (Oral) HR: 72 RR: 18 BP: 116/79 SpO2: 95% HT: 177.8 cm WT:105 kg BMI: 33.21 Intake and Output 7AM Yesterday to 7AM Today Intake and Output (Last 24 hours) Intake Administration Information 1200.00 Output Urine Voided 400.00 Intra-Op EBL 100.00 Urine Count 1.00 Total Summary Total Intake 1200.00 Total Output 500.00 Fluid Balance 700.00 Physical Exam Vital signs stable, afebrile. Patient currently using CPAP overnight Dressing is clean dry and intact UltraSling fitting appropriately Sensation is intact to axillary, radial, median, and ulnar distribution Motor intact with patient able to make okay sign, cross fingers, and thumbs up Weight Dosing Weight: 105 kg (11/06/23) Dosing Weight: 105 kg (11/06/23) Medications Medications (27) Active Scheduled: (17) acetaminophen 500 mg Tablet 1,000 mg 2 tab(s), Oral, q6hr albuterol - ipratropium 2.5 mg-0.5 mg/3 mL Inhal Reba UD 3 mL, Inhalation, QIDRT aspirin 81 mg EC 81 mg 1 tab(s), Oral, BID azelastine 0.1% nasal spray 30 mL 1 spray(s), Nasal, BID bisacodyl 5 mg EC tablet 10 mg 2 tab(s), Oral, Once budesonide 0.5 mg/2 mL Susp UD 0.5 mg 2 mL, Inhalation, BIDRT docusate sodium 100 mg Capsule 100 mg 1 cap(s), Oral, BID docusate-senna (Senokot S) 50 mg-8.6 mg Tablet 2 tab(s), Oral, BID famotidine 20 mg tablet 20 mg 1 tab(s), Oral, qDay gabapentin 400 mg capsule 400 mg 1 cap(s), Oral, qDay hydroxychloroquine 200 mg tablet 200 mg 1 tab(s), Oral, qDay latanoprost ophthalmic 0.005% Solution 1 drop(s), Ophthalmic, qHS leflunomide 20 mg Tablet 20 mg 1 tab(s), Oral, qDay magnesium hydroxide 8% Suspension 30 mL UD 30 mL, Oral, Daily meloxicam 7.5 mg tablet 7.5 mg 1 tab(s), Oral, BIDM montelukast 10 mg Tablet 10 mg 1 tab(s), Oral, qPM sulfamethoxazole-trimethoprim 800 mg-160 mg tablet 1 tab(s), Oral, BID Continuous: (1) Lactated Ringers 1000 mL 1,000 mL, Intravenous, 125 mL/hr PRN: (9) acetaminophen 325 mg Tablet 650 mg 2 tab(s), Oral, q4h diphenhydramine 25 mg tablet 25 mg 1 tab(s), Oral, q6h diphenhyDRAMINE 50 mg/mL (1 mL) INJ 25 mg 0.5 mL, IV Push, q6h ketorolac 30 mg/mL (1 mL) vial 15 mg 0.5 mL, IV Push, q6h ondansetron 2 mg/ 1 mL 2 mL INJ 4 mg 2 mL, IV Push, q8h oxycodone 5 mg tablet (immediate release) 5 mg 1 tab(s), Oral, q4h oxycodone 5 mg tablet (immediate release) 10 mg 2 tab(s), Oral, q4h prochlorperazine 10 mg/2 mL vial 5 mg 1 mL, IV Push, q6h sodium biphosphate-sodium phosphate 19 gm-7 gm Enema 133 mL, Rectal, qDay Lab Results 11/06 05:12 WBC: 6.9 Hgb: 14.0 Hct: 40.5 L Platelet: 256 Neutrophil %: 75.5 Glucose Level: 122 H Sodium Level: 139 Potassium Level: 4.8 BUN: 16 Creatinine Lvl (s): 1.30 11/05 10:27 WBC: 8.1 Hgb: 14.0 Hct: 39.8 L Platelet: 218 Neutrophil %: 64.3 Glucose Level: 85 Sodium Level: 137 Potassium Level: 4.0 BUN: 15 Creatinine Lvl (s): 1.20 EKG No qualifying data available. 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 Continue pain medications: Tylenol and oxycodone. Patient will resume his flurbiprofen at home. 3. DVT prophylaxis: Take 81 mg aspirin twice daily with food for 2 weeks postoperatively for DVT prophylaxis. Patient denies past history of DVT or pulmonary embolism 4. Physical therapy: Continue with UltraSling at all times. Okay to take off sling for elbow range of motion and pendulum exercises 2-3 times daily. No range of motion of the operative shoulder. Giacomo outpatient physical therapy after the 2-week follow-up at [facility] [place]. 5. H & H: 14.0/40.5, asymptomatic. Labs have been reviewed in which they are stable and no needfor further treatment 6. Encouraged incentive spirometry 7. Continue postoperative medical management per medicine 8. Postoperative constipation: Discussed with the patient to continue stool softener until first bowel movement. After first bowel movement patient can then take as needed. They were also instructed that if they are not able to have a bowel movement within 3 days they are to contact our office for change of medication. Patient voiced understanding. 9. Continue antibiotics for 2 weeks postoperatively due to revision total shoulder arthroplasty. Patient is currently placed on Bactrim twice daily for 2 weeks. 10. Disposition: Plan will be for discharge home this afternoon as long as patient is medically stable, tolerates therapy, and pain is adequately controlled. He will require follow-up appointments with [facility] [place] on November 19, 2023. He will also require scheduled physical therapy to begin after the orthopedic 2-week postoperative visit on November 19, 2023 or November. Case will be discussed with neonatal social worker to get those appointments scheduled. Patient would like his prescriptions E scribed to [facility] in [facility]. He will follow-up as instructed. We discussed in detail all above medications. All questions were answered. He will remove the Mepilex dressing 5 days postoperatively. He can shower with this dressing. Once the dressing is removed he is to only place gentle soap and water over the incision for 6 weeks postoperatively. Upon discharge she will contact her office with any concerns or questions. Patient states he has the Tylenol, aspirin, and senna at home. I have reviewed the [place] Automated Rx Reporting System (OARRS) report for this patient for refill pattern and other prescriber involvement as part of the appropriate surveillance for the provision ofacute and chronic controlled medications. The report was requested and reviewed on the date of thisentry, and was considered in the prescribing process This dictation was created using voice recognition software. Phonetic and/or grammatical errors mayexist. Ordered: sulfamethoxazole-trimethoprim, Start: 11/07/23 9:00:00 EDT, Dose = 1 tab(s), Tab, Oral, BID, 11/07/23 6:51:00 EDT Digitally Signed by BRANDON FINNEY PA-C on 11/07/2023 06:[address] [facility]03-27-2024 Note Date of Service November 07, 2023 Subjective The patient was sitting in bed upon examination. Patient denies any chest pain, shortness of breath, dizziness, lightheadedness, nausea or vomiting, or calf pain. No adverse overnight events. Pain has been controlled on medications. Patient still has some numbness in the right upper extremity from the block. Pain has been well-controlled. He has no complaints this morning. Objective Vitals and Measurements T: 36.7 C (Oral) TMIN: 36 C TMAX: 36.7 C (Oral) HR: 72 RR: 18 BP: 116/79 SpO2: 95% HT: 177.8 cm WT:105 kg BMI: 33.21 Intake and Output 7AM Yesterday to 7AM Today Intake and Output (Last 24 hours) Intake Administration Information 1200.00 Output Urine Voided 400.00 Intra-Op EBL 100.00 Urine Count 1.00 Total Summary Total Intake 1200.00 Total Output 500.00 Fluid Balance 700.00 Physical Exam Vital signs stable, afebrile. Patient currently using CPAP overnight Dressing is clean dry and intact UltraSling fitting appropriately Sensation is intact to axillary, radial, median, and ulnar distribution Motor intact with patient able to make okay sign, cross fingers, and thumbs up Weight Dosing Weight: 105 kg (11/06/23) Dosing Weight: 105 kg (11/06/23) Medications Medications (27) Active Scheduled: (17) acetaminophen 500 mg Tablet 1,000 mg 2 tab(s), Oral, q6hr albuterol - ipratropium 2.5 mg-0.5 mg/3 mL Inhal Reba UD 3 mL, Inhalation, QIDRT aspirin 81 mg EC 81 mg 1 tab(s), Oral, BID azelastine 0.1% nasal spray 30 mL 1 spray(s), Nasal, BID bisacodyl 5 mg EC tablet 10 mg 2 tab(s), Oral, Once budesonide 0.5 mg/2 mL Susp UD 0.5 mg 2 mL, Inhalation, BIDRT docusate sodium 100 mg Capsule 100 mg 1 cap(s), Oral, BID docusate-senna (Senokot S) 50 mg-8.6 mg Tablet 2 tab(s), Oral, BID famotidine 20 mg tablet 20 mg 1 tab(s), Oral, qDay gabapentin 400 mg capsule 400 mg 1 cap(s), Oral, qDay hydroxychloroquine 200 mg tablet 200 mg 1 tab(s), Oral, qDay latanoprost ophthalmic 0.005% Solution 1 drop(s), Ophthalmic, qHS leflunomide 20 mg Tablet 20 mg 1 tab(s), Oral, qDay magnesium hydroxide 8% Suspension 30 mL UD 30 mL, Oral, Daily meloxicam 7.5 mg tablet 7.5 mg 1 tab(s), Oral, BIDM montelukast 10 mg Tablet 10 mg 1 tab(s), Oral, qPM sulfamethoxazole-trimethoprim 800 mg-160 mg tablet 1 tab(s), Oral, BID Continuous: (1) Lactated Ringers 1000 mL 1,000 mL, Intravenous, 125 mL/hr PRN: (9) acetaminophen 325 mg Tablet 650 mg 2 tab(s), Oral, q4h diphenhydramine 25 mg tablet 25 mg 1 tab(s), Oral, q6h diphenhyDRAMINE 50 mg/mL (1 mL) INJ 25 mg 0.5 mL, IV Push, q6h ketorolac 30 mg/mL (1 mL) vial 15 mg 0.5 mL, IV Push, q6h ondansetron 2 mg/ 1 mL 2 mL INJ 4 mg 2 mL, IV Push, q8h oxycodone 5 mg tablet (immediate release) 5 mg 1 tab(s), Oral, q4h oxycodone 5 mg tablet (immediate release) 10 mg 2 tab(s), Oral, q4h prochlorperazine 10 mg/2 mL vial 5 mg 1 mL, IV Push, q6h sodium biphosphate-sodium phosphate 19 gm-7 gm Enema 133 mL, Rectal, qDay Lab Results 11/06 05:12 WBC: 6.9 Hgb: 14.0 Hct: 40.5 L Platelet: 256 Neutrophil %: 75.5 Glucose Level: 122 H Sodium Level: 139 Potassium Level: 4.8 BUN: 16 Creatinine Lvl (s): 1.30 11/05 10:27 WBC: 8.1 Hgb: 14.0 Hct: 39.8 L Platelet: 218 Neutrophil %: 64.3 Glucose Level: 85 Sodium Level: 137 Potassium Level: 4.0 BUN: 15 Creatinine Lvl (s): 1.20 EKG No qualifying data available. 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 Continue pain medications: Tylenol and oxycodone. Patient will resume his flurbiprofen at home. 3. DVT prophylaxis: Take 81 mg aspirin twice daily with food for 2 weeks postoperatively for DVT prophylaxis. Patient denies past history of DVT or pulmonary embolism 4. Physical therapy: Continue with UltraSling at all times. Okay to take off sling for elbow range of motion and pendulum exercises 2-3 times daily. No range of motion of the operative shoulder. Giacomo outpatient physical therapy after the 2-week follow-up at [facility] [place]. 5. H & H: 14.0/40.5, asymptomatic. Labs have been reviewed in which they are stable and no needfor further treatment 6. Encouraged incentive spirometry 7. Continue postoperative medical management per medicine 8. Postoperative constipation: Discussed with the patient to continue stool softener until first bowel movement. After first bowel movement patient can then take as needed. They were also instructed that if they are not able to have a bowel movement within 3 days they are to contact our office for change of medication. Patient voiced understanding. 9. Continue antibiotics for 2 weeks postoperatively due to revision total shoulder arthroplasty. Patient is currently placed on Bactrim twice daily for 2 weeks. 10. Disposition: Plan will be for discharge home this afternoon as long as patient is medically stable, tolerates therapy, and pain is adequately controlled. He will require follow-up appointments with [facility] on November 19, 2023. He will also require scheduled physical therapy to begin after the orthopedic 2-week postoperative visit on November 19, 2023 or November. Case will be discussed with neonatal social worker to get those appointments scheduled. Patient would like his prescriptions E scribed to [facility] in [facility]. He will follow-up as instructed. We discussed in detail all above medications. All questions were answered. He will remove the Mepilex dressing 5 days postoperatively. He can shower with this dressing. Once the dressing is removed he is to only place gentle soap and water over the incision for 6 weeks postoperatively. Upon discharge she will contact her office with any concerns or questions. Patient states he has the Tylenol, aspirin, and senna at home. I have reviewed the [place] Automated Rx Reporting System (OARRS) report for this patient for refill pattern and other prescriber involvement as part of the appropriate surveillance for the provision ofacute and chronic controlled medications. The report was requested and reviewed on the date of thisentry, and was considered in the prescribing process This dictation was created using voice recognition software. Phonetic and/or grammatical errors mayexist. Ordered: sulfamethoxazole-trimethoprim, Start: 11/07/23 9:00:00 EDT, Dose = 1 tab(s), Tab, Oral, BID, 11/07/23 6:51:00 EDT Digitally Signed by BRANDON FINNEY PA-C on 11/07/2023 06:[address] [facility]03-26-2024 Note ORIGINAL EXAMINATION: TWO XRAY VIEWS OF THE RIGHT SHOULDER 11/06/2023 3:04 pm COMPARISON: 08/21/2023 HISTORY: ORDERING SYSTEM PROVIDED HISTORY: Reason for Exam: Status Post Arthroplasty FINDINGS: A shoulder prosthesis is identified. The components appear well seated and intact. Gas in the soft tissues could be postoperative. No acute fracture or dislocation is identified. Degenerative changes are shown in the spine. IMPRESSION: Surgical changes. Interpreted by: Paige Amador MD Preliminary Report By: Paige Amador MD Electronically signed By Paige Amador MD Dictated Date: 11/06/2023 3:12:26 PM Prelim Date: 11/06/2023 3:13:05 PM Sign Date: 11/06/2023 3:13:05 PM Ordering Provider: [facility]03-26-2024 Anesthesiology Consult note Patient: SHIVANI BONILLA Age: 73 years Sex: Male : 1950 Associated Diagnoses: None Author: ARIELLE FLORES ELECTRONIC FUNDS TRANSFER COORDINATOR-PASTRY COOK APPRENTICE Assessment Postanesthesia assessment Vitals: Vital signs from flowsheet : Vital Signs 11/06/2023 14:35 EDT Heart Rate Monitored 78 bpm bpm Respiratory Rate - Anes 13 br/min br/min 11/06/2023 14:30 EDT Heart Rate Monitored 72 bpm bpm Respiratory Rate - Anes 14 br/min br/min Systolic Blood Pressure Non-Invasive 106 mmHg mmHg Diastolic Blood Pressure Non-Invasive 64 mmHg mmHg 11/06/2023 14:25 EDT Heart Rate Monitored 82 bpm bpm Respiratory Rate - Anes 15 br/min br/min Systolic Blood Pressure Non-Invasive 111 mmHg mmHg Diastolic Blood Pressure Non-Invasive 64 mmHg mmHg 11/06/2023 14:20 EDT Heart Rate Monitored 68 bpm bpm Respiratory Rate - Anes 10 br/min br/min Systolic Blood Pressure Non-Invasive 99 mmHg mmHg Diastolic Blood Pressure Non-Invasive 62 mmHg mmHg 11/06/2023 14:15 EDT Temperature (Route Not Specified) 36 DegC DegC Heart Rate Monitored 68 bpm bpm Respiratory Rate - Anes 10 br/min br/min Systolic Blood Pressure Non-Invasive 97 mmHg mmHg Diastolic Blood Pressure Non-Invasive 69 mmHg mmHg 11/06/2023 14:10 EDT Heart Rate Monitored 68 bpm bpm Respiratory Rate - Anes 10 br/min br/min Systolic Blood Pressure Non-Invasive 82 mmHg mmHg Diastolic Blood Pressure Non-Invasive 54 mmHg mmHg 11/06/2023 14:05 EDT Heart Rate Monitored 67 bpm bpm Respiratory Rate - Anes 10 br/min br/min Systolic Blood Pressure Non-Invasive 96 mmHg mmHg Diastolic Blood Pressure Non-Invasive 53 mmHg mmHg 11/06/2023 14:00 EDT Temperature (Route Not Specified) 36 DegC DegC Heart Rate Monitored 71 bpm bpm Respiratory Rate - Anes 10 br/min br/min Systolic Blood Pressure Non-Invasive 91 mmHg mmHg Diastolic Blood Pressure Non-Invasive 65 mmHg mmHg 11/06/2023 13:55 EDT Heart Rate Monitored 72 bpm bpm Respiratory Rate - Anes 10 br/min br/min Systolic Blood Pressure Non-Invasive 81 mmHg mmHg Diastolic Blood Pressure Non-Invasive 59 mmHg mmHg 11/06/2023 13:50 EDT Heart Rate Monitored 71 bpm bpm Respiratory Rate - Anes 10 br/min br/min Systolic Blood Pressure Non-Invasive 96 mmHg mmHg Diastolic Blood Pressure Non-Invasive 64 mmHg mmHg 11/06/2023 13:45 EDT Temperature (Route Not Specified) 36 DegC DegC Heart Rate Monitored 73 bpm bpm Respiratory Rate - Anes 10 br/min br/min Systolic Blood Pressure Non-Invasive 89 mmHg mmHg Diastolic Blood Pressure Non-Invasive 62 mmHg mmHg 11/06/2023 13:40 EDT Heart Rate Monitored 78 bpm bpm Respiratory Rate - Anes 10 br/min br/min Systolic Blood Pressure Non-Invasive 82 mmHg mmHg Diastolic Blood Pressure Non-Invasive 60 mmHg mmHg 11/06/2023 13:35 EDT Heart Rate Monitored 77 bpm bpm Respiratory Rate - Anes 10 br/min br/min Systolic Blood Pressure Non-Invasive 94 mmHg mmHg Diastolic Blood Pressure Non-Invasive 63 mmHg mmHg 11/06/2023 13:30 EDT Temperature (Route Not Specified) 36 DegC DegC Heart Rate Monitored 79 bpm bpm Respiratory Rate - Anes 10 br/min br/min Systolic Blood Pressure Non-Invasive 98 mmHg mmHg Diastolic Blood Pressure Non-Invasive 63 mmHg mmHg 11/06/2023 13:25 EDT Heart Rate Monitored 75 bpm bpm Respiratory Rate - Anes 10 br/min br/min Systolic Blood Pressure Non-Invasive 146 mmHg mmHg Diastolic Blood Pressure Non-Invasive 106 mmHg mmHg 11/06/2023 13:20 EDT Heart Rate Monitored 78 bpm bpm Respiratory Rate - Anes 10 br/min br/min Systolic Blood Pressure Non-Invasive 104 mmHg mmHg Diastolic Blood Pressure Non-Invasive 71 mmHg mmHg 11/06/2023 13:15 EDT Temperature (Route Not Specified) 36 DegC DegC Heart Rate Monitored 80 bpm bpm Respiratory Rate - Anes 9 br/min br/min Systolic Blood Pressure Non-Invasive 75 mmHg mmHg Diastolic Blood Pressure Non-Invasive 61 mmHg mmHg 11/06/2023 13:10 EDT Heart Rate Monitored 79 bpm bpm Respiratory Rate - Anes 10 br/min br/min Systolic Blood Pressure Non-Invasive 109 mmHg mmHg Diastolic Blood Pressure Non-Invasive 81 mmHg mmHg 11/06/2023 13:05 EDT Heart Rate Monitored 80 bpm bpm Respiratory Rate - Anes 3 br/min br/min Systolic Blood Pressure Non-Invasive 119 mmHg mmHg Diastolic Blood Pressure Non-Invasive 69 mmHg mmHg 11/06/2023 13:00 EDT Heart Rate Monitored 81 bpm bpm Respiratory Rate - Anes 0 br/min br/min Systolic Blood Pressure Non-Invasive 116 mmHg mmHg Diastolic Blood Pressure Non-Invasive 75 mmHg mmHg 11/06/2023 12:10 EDT Peripheral Pulse Rate 68 bpm Respiratory Rate 14 br/min 11/06/2023 10:40 EDT Temperature Temporal Artery 36.6 DegC Apical Heart Rate 61 bpm Respiratory Rate 12 br/min LOW Systolic Blood Pressure Non-Invasive 122 mmHg Diastolic Blood Pressure Non-Invasive 80 mmHg , Measurements from flowsheet . Mental status: alert & oriented x 4. Respiratory function: respirations are non-labored. Respiratory support: none. CV function: Normal rate. Cardiovascular support: none. Pain. Nausea status: see nursing documentation of medications. Postoperative hydration status: within normal limits. Digitally Signed by ARIELLE FLORES on 11/06/2023 02:[address] [facility]03-26-2024 Anesthesiology Consult note Patient: SHIVANI BONILLA Age: 73 years Sex: Male : 1950 Associated Diagnoses: None Author: ARIELLE FLORES Preoperative Information Time of last food or liquid consumption: 11/06/2023 00:00:00 Anesthesia history Patient's history: negative. Family's history: negative. Health Status Allergies: Allergic Reactions (Selected) Severity Not Documented Brewers Yeast- Diarrhea. Coffee- No reactions were documented., Allergies (2) ActiveReaction Brewers YeastDiarrhea CoffeeNone Documented Current medications: (Selected) Inpatient Medications Ordered Bolus LR 1000 mL: 1,000 mL, IV Bolus, PREOP pharm Decadron: 10 mg, 1 mL, IV Push, AsDirected Dilaudid: 0.25 mg, 0.25 mL, IV Push, q5min, PRN: Pain, scale 4-10 LR 1,000 mL: 125 mL/hr, Intravenous, Stop: 11/07/23 1:44:00 EDT LR 1000 mL: 20 mL/hr, Intravenous Zofran ( PACU ): 4 mg, 2 mL, IV Push, AsDirected, PRN: Nausea/Vomiting albuterol 2.5 mg/3 mL (0.083%) inhalation solution: 2.5 mg, 3 mL, Inhalation, Once, PRN: sob prn tranexamic acid 1 g / 100 mL 0.7% NaCl PMX: 1 gram(s), 100 mL, 300 mL/hr, IV Piggyback, AsDirected tranexamic acid 1 g / 100 mL 0.7% NaCl PMX: 1 gram(s), 100 mL, 300 mL/hr, IV Piggyback, AsDirected Prescriptions Prescribed Pepcid 20 mg oral tablet: 20 mg, 1 tab(s), Oral, qDay, for 14 day(s), 14 tab(s), 0 Refill(s) Documented Medications Documented Astelin: 1 spray(s), Nasal, BID Glucosamine Chondroitin MSM Complex: 1 tab(s), Oral, BID Multivitamin: 1 tab(s), Oral, Daily Nasonex 50 mcg/inh nasal spray: 2 spray(s), Nasal, Daily, PRN: for allergy symptoms Spiriva Respimat 1.25 mcg/inh inhalation aerosol: 2 puff(s), Inhalation, qDay Symbicort 160 mcg-4.5 mcg/inh Inhaler: 2 puff(s), Inhalation, Daily, 0 Refill(s) Tylenol: 1,000 mg, 2 tab(s), Oral, TID, 0 Refill(s) aspirin: 81 mg, 1 tab(s), Oral, BID, for 14 day(s), Take 81 mg aspirin twice daily with food for 2 weeks postoperatively for DVT prophylaxis., 0 Refill(s) chlorhexidine 0.12% oral rinse liquid: 0.018 gram(s), 15 mL, Oral, BID, 473 mL, 0 Refill(s) cranberry oral tablet: 1 tab(s), Oral, Daily, 0 Refill(s) flurbiprofen 100 mg oral tablet: 100 mg, 1 tab(s), Oral, qHS gabapentin 400 mg oral capsule: 400 mg, 1 cap(s), Oral, qDay, 30 cap(s), 0 Refill(s) hydroxychloroquine 200 mg oral tablet: 200 mg, 1 tab(s), Oral, qDay, 0 Refill(s) latanoprost 0.005% ophthalmic solution: 1 drop(s), Ophthalmic, qHS, 2.5 mL, 0 Refill(s) leflunomide 20 mg oral tablet: 20 mg, 1 tab(s), Oral, qDay, 30 tab(s), 0 Refill(s) montelukast 10 mg oral tablet: 10 mg, 1 tab(s), Oral, qDay, 0 Refill(s) oxyCODONE 5 mg oral tablet ( IMMEDIATE release ): 5 mg, 1 tab(s), Oral, q6h, PRN: for pain, 12 tab(s), 0 Refill(s), Medications (9) Active Scheduled: (4) dexamethasone 10 mg/mL (1mL) SDV 10 mg 1 mL, IV Push, AsDirected Lactated Ringers Injection 1000 mL * Bolus * 1,000 mL, IV Bolus, PREOP pharm tranexamic acid PMX 1 gram(s) 100 mL, IV Piggyback, AsDirected tranexamic acid PMX 1 gram(s) 100 mL, IV Piggyback, AsDirected Continuous: (2) Lactated Ringers 1,000 mL 1,000 mL, Intravenous, 125 mL/hr Lactated Ringers Infusion 1000 mL 1,000 mL, Intravenous, 20 mL/hr PRN: (3) albuterol 0.083% Soln UD (2.5mg/3 mL) 2.5 mg 3 mL, Inhalation, Once HYDROmorphone 0.5 mg/0.5 mL PF syringe 0.25 mg 0.25 mL, IV Push, q5min ondansetron 2 mg/ 1 mL 2 mL INJ 4 mg 2 mL, IV Push, AsDirected Problem list: Medical Asthma / SNOMED CT [id number] / Confirmed History of prostate cancer / SNOMED CT [id number] / Confirmed Kidney stones / SNOMED CT [id number] / Confirmed Rheumatoid arthritis / SNOMED CT [id number] / Confirmed Seasonal allergies / SNOMED CT [id number] / Confirmed, Active Problems (11) Asthma Bulging of cervical intervertebral disc Charcot's joint of foot GERD (gastroesophageal reflux disease) History of prostate cancer Kidney stones Neuropathy OA (osteoarthritis) Rheumatoid arthritis Seasonal allergies Sleep apnea Histories Past Medical History: Active Asthma ([id number]) Kidney stones ([id number]) Rheumatoid arthritis ([id number]) Family History: Hypertension Mother Sister Procedure history: Cardiac catheterization ([id number]) in 2018 at 68 Years. Knee replacement ([id number]). Comments: 07/27/2023 14:31 Isabel Davenport RN bilateral Carpal tunnel ([id number]). Comments: 07/27/2023 14:31 Isabel Davenport RN bilateral Repair of inguinal hernia ([id number]). Comments: 07/27/2023 14:15 Isabel Davenport RN Right Colonoscopy ([id number]). Repair of umbilical hernia ([id number]). Revision of left total knee arthroplasty ([id number]). Comments: 07/27/2023 14:32 Isabel Davenport RN x2 Arthroscopy of knee ([id number]). Comments: 07/27/2023 14:32 Isabel Davenport RN bilateral Amputation of finger of right hand ([id number]). Prostatectomy ([id number]). Ligation and stripping of varicose vein of lower limb ([id number]). Foot ([id number]). Comments: 07/27/2023 14:33 Isabel Davenport RN right x2 C-RFA (cooled radiofrequency ablation) of nerve using fluoroscopic guidance ([id number]). Comments: 07/27/2023 14:34 Isabel Davenport RN cervical spine ESWL - Extracorporeal shockwave lithotripsy for renal calculus ([id number]). 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 Physical Examination Vital Signs 11/06/2023 13:25 EDT Heart Rate Monitored 75 bpm bpm Respiratory Rate - Anes 10 br/min br/min Systolic Blood Pressure Non-Invasive 146 mmHg mmHg Diastolic Blood Pressure Non-Invasive 106 mmHg mmHg 11/06/2023 13:20 EDT Heart Rate Monitored 78 bpm bpm Respiratory Rate - Anes 10 br/min br/min Systolic Blood Pressure Non-Invasive 104 mmHg mmHg Diastolic Blood Pressure Non-Invasive 71 mmHg mmHg 11/06/2023 13:15 EDT Heart Rate Monitored 80 bpm bpm Respiratory Rate - Anes 9 br/min br/min Systolic Blood Pressure Non-Invasive 75 mmHg mmHg Diastolic Blood Pressure Non-Invasive 61 mmHg mmHg 11/06/2023 13:10 EDT Heart Rate Monitored 79 bpm bpm Respiratory Rate - Anes 10 br/min br/min Systolic Blood Pressure Non-Invasive 109 mmHg mmHg Diastolic Blood Pressure Non-Invasive 81 mmHg mmHg 11/06/2023 13:05 EDT Heart Rate Monitored 80 bpm bpm Respiratory Rate - Anes 3 br/min br/min Systolic Blood Pressure Non-Invasive 119 mmHg mmHg Diastolic Blood Pressure Non-Invasive 69 mmHg mmHg 11/06/2023 13:00 EDT Heart Rate Monitored 81 bpm bpm Respiratory Rate - Anes 0 br/min br/min Systolic Blood Pressure Non-Invasive 116 mmHg mmHg Diastolic Blood Pressure Non-Invasive 75 mmHg mmHg 11/06/2023 12:10 EDT Peripheral Pulse Rate 68 bpm Respiratory Rate 14 br/min 11/06/2023 10:40 EDT Temperature Temporal Artery 36.6 DegC Apical Heart Rate 61 bpm Respiratory Rate 12 br/min LOW Systolic Blood Pressure Non-Invasive 122 mmHg Diastolic Blood Pressure Non-Invasive 80 mmHg Vital Signs(last 24 hrs) Last Charted Heart Rate [id number] bpm (NOV 05 13:25) DKY346 mmHg (NOV 05 13:25) IMC285 mmHg (NOV 05 13:25) Measurements from flowsheet : Measurements 11/06/2023 10:40 EDT Height 177.8 cm Height in inches 70 inch(es) Admission Weight 105 kg Weight Lbs 231 lb [place] Body Weight 73.00 kg Pain assessment: Pain Assessment 11/06/2023 12:10 EDT Primary Pain Intensity 8 Pain Scale Type 0-10 Pain scale 11/06/2023 11:22 EDT Primary Pain Intensity 10 11/06/2023 10:40 EDT Primary Pain Location Shoulder Primary Pain Laterality Right Primary Pain Intensity 10 Primary Pain Onset Sudden Primary Pain Quality Aching, Sharp, Stabbing Primary Pain Aggravating Factors Standing, Walking Pain Scale Type 0-10 Pain scale . General: Alert and oriented. Airway: Normal temporomandibular joint mobility, Normal mouth, Normal neck range of motion. Mallampati classification: III (soft palate, base of uvula visible). Dentition Evaluation: Missing teeth, Denies loose/chipped teeth. Respiratory: Respirations are non-labored. Cardiovascular: Normal rate. Neurologic: Alert, Oriented. Review / Management Results review: Labs (Last four charted values) WBC 8.1(NOV 05) Hgb 14.0(NOV 05) Hct L 39.8(NOV 05) Plt 218(NOV 05) Na 137(NOV 05) K 4.0(NOV 05) CO2 24(NOV 05) Cl 103(NOV 05) Cr 1.20(NOV 05) BUN 15(NOV 05) Glucose 85(NOV 05) Ca 8.4(NOV 05) , Lab results 11/06/2023 13:34 EDT SN - PP - Body Position Beach Chair Position Standard Intra-op 11/06/2023 13:33 EDT SN - PTCare - Thermals Forced Air Warming Device Lower Body SN - PTCare - Anti-thromboembolism Veronica Sequential Compression Device (SCD) 11/06/2023 13:33 EDT SN - Assess - LOC Alert, Awake SN - Assess - Orientation Oriented X 3 SN - Assess - Post-op Skin Integrity Other See Comments SN - Assess - Abnormality Location RIGHT SHOULDER SN - Assess - Abnormality Type PREVIOUS INCISION NOTED 11/06/2023 13:32 EDT SN - GCD - ASA Class 3 SN - GCD - Post-operative Diagnosis PRESENCE OF RIGHT ARTIFICIAL SHOULDER JOINT SN - GCD - Case Level Level 4 11/06/2023 13:32 EDT SN - Cul - Culture Type No Specimen per Surgeon 11/06/2023 13:31 EDT SN - CTm - Surgery Start 11/06/2023 13:29 11/06/2023 13:25 EDT Heart Rate Monitored 75 bpm bpm Respiratory Rate - Anes 10 br/min br/min Systolic Blood Pressure Non-Invasive 146 mmHg mmHg Diastolic Blood Pressure Non-Invasive 106 mmHg mmHg Oxygen Saturation 100 % % Set Rate Anes 10 br/min br/min 11/06/2023 13:20 EDT Heart Rate Monitored 78 bpm bpm Respiratory Rate - Anes 10 br/min br/min Systolic Blood Pressure Non-Invasive 104 mmHg mmHg Diastolic Blood Pressure Non-Invasive 71 mmHg mmHg Oxygen Saturation 100 % % Set Rate Anes 10 br/min br/min 11/06/2023 13:15 EDT Heart Rate Monitored 80 bpm bpm Respiratory Rate - Anes 9 br/min br/min Systolic Blood Pressure Non-Invasive 75 mmHg mmHg Diastolic Blood Pressure Non-Invasive 61 mmHg mmHg Oxygen Saturation 97 % % Set Rate Anes 10 br/min br/min 11/06/2023 13:10 EDT Heart Rate Monitored 79 bpm bpm Respiratory Rate - Anes 10 br/min br/min Systolic Blood Pressure Non-Invasive 109 mmHg mmHg Diastolic Blood Pressure Non-Invasive 81 mmHg mmHg Oxygen Saturation 97 % % Set Rate Anes 10 br/min br/min 11/06/2023 13:05 EDT Heart Rate Monitored 80 bpm bpm Respiratory Rate - Anes 3 br/min br/min Systolic Blood Pressure Non-Invasive 119 mmHg mmHg Diastolic Blood Pressure Non-Invasive 69 mmHg mmHg Oxygen Saturation 98 % % cefazolin 2 gram(s) gram(s) Sodium Chloride 0.9% 100 mL mL 11/06/2023 13:01 EDT SN - CAt - Case Attendee SN - CAt - Case Attendee 11/06/2023 13:00 EDT Heart Rate Monitored 81 bpm bpm Respiratory Rate - Anes 0 br/min br/min Systolic Blood Pressure Non-Invasive 116 mmHg mmHg Diastolic Blood Pressure Non-Invasive 75 mmHg mmHg 11/06/2023 12:56 EDT SN - CTm - Anesthesia Start Time Anesthesia Start 11/06/2023 12:17 EDT CHG Preoperative Wash/Wipe Site specific wipe 11/06/2023 12:10 EDT Peripheral Pulse Rate 68 bpm Respiratory Rate 14 br/min Primary Pain Intensity 8 Pain Scale Type 0-10 Pain scale Heart Rhythm Regular Oxygen Therapy Room air Oxygen Saturation 96 % 11/06/2023 12:09 EDT Time Out Procedure Verified Time Out Procedure Site Verified Yes Time Out Procedure Site Marked Yes Time Out Correct Patient Position Yes Consent Form Signed Yes Bedside Procedure Nerve Block Provider #1 Bedside Time Out ARIELLE FLORES APRN-PASTRY COOK APPRENTICE Provider #2 Bedside Time Out Juany Ibrahim RN Allergy Band on and Verified Yes Patient ID Band on and Verified Yes Anesthesia Consent Signed Yes Blood Consent Signed Yes 11/06/2023 12:03 EDT dexAMETHasone 4 mg mg ROPivacaine 150 mg mg 11/06/2023 11:52 EDT fentaNYL 50 mcg mcg midazolam 2 mg mg 11/06/2023 11:45 EDT SN - CAt - Case Attendee SN - CAt - Case Attendee SN - CAt - Case Attendee SN - CAt - Case Attendee SN - CAt - Case Attendee SN - CAt - Case Attendee SN - CAt - Case Attendee SN - CAt - Case Attendee SN - CAt - Case Attendee SN - CAt - Case Attendee SN - CAt - Role Performed Primary Surgeon SN - CAt - Role Performed Coding Compliance Auditor 1 SN - CAt - Role Performed PASTRY COOK APPRENTICE SN - CAt - Role Performed Scrub 1 SN - CAt - Role Performed Logging Specialist 1 SN - CAt - Role Performed Websphere Process Server Developer 11/06/2023 11:41 EDT famotidine 20 mg mg 11/06/2023 11:37 EDT SN - Preop - CTm Pt in SDS Room 11/06/2023 10:29 SN - Preop - CTm Pt Ready for OR/Proced 11/06/2023 11:37 11/06/2023 11:36 EDT Antiembolism Stocking On/Re-applied bilateral knee high 11/06/2023 11:24 EDT Hand Left 11/06/2023 20 gauge Peripheral IV Activity: Insert new site Peripheral IV Dressing Condition: Clean, Dry, Intact Peripheral IV Dressing Activity: Applied, Transparent dressing Peripheral IV Line Status/Patency: Continuous infusion Peripheral IV Line Care: Secured with tape Peripheral IV Site Condition: No complications Peripheral IV Equipment: Extension set, PRN Adaptor Peripheral IV Number of Attempts: 1 11/06/2023 11:22 EDT Primary Pain Intensity 10 celecoxib 400 mg mg oxyCODONE 10 mg mg 11/06/2023 10:40 EDT Height 177.8 cm Height in inches 70 inch(es) Admission Weight 105 kg Weight Lbs 231 lb [place] Body Weight 73.00 kg Temperature Temporal Artery 36.6 DegC Apical Heart Rate 61 bpm Respiratory Rate 12 br/min LOW Systolic Blood Pressure Non-Invasive 122 mmHg Diastolic Blood Pressure Non-Invasive 80 mmHg Primary Pain Location Shoulder Primary Pain Laterality Right Primary Pain Intensity 10 Primary Pain Onset Sudden Primary Pain Quality Aching, Sharp, Stabbing Primary Pain Aggravating Factors Standing, Walking Pain Scale Type 0-10 Pain scale Heart Rhythm Regular Radial Pulse, Left 2+ Normal Radial Pulse, Right 2+ Normal Respirations Unlabored Oxygen Therapy Room air Oxygen Saturation 95 % Abdomen Description Non-distended, Soft Bowel Sounds All Quadrants Hypoactive Skin Temperature Warm Skin Description [place], Normal for ethnicity, Dry Skin Integrity Intact Neurological Symptoms Patient denies Characteristics of Speech Clear Level of Consciousness Alert Left Lower Extremity Sensation Numbness Right Lower Extremity Sensation Numbness Affect/Behavior Appropriate, Calm, Cooperative Orientation Oriented x 4 [place] Motor (2) Moves 4 extremities voluntarily or on command [place] Respirations (2) Spontaneous respiration without support, RR > 10 [place] Blood Pressure (2) BP 20% above or below preanesthetic level [place] Pulse (2) Pulse 20% above or below preanesthetic level [place] Oxygen Saturation (2) 94% or more [place] Level of Consciousness (2) Fully awake [place] III Score 12 Orientation Assessment Oriented x 4 Activity Status ADL Resting Sequential Compression Device bilateral knee high applied/on Standard Safety ID band on, Allergy Band on, Call device within reach, Bed in low position, Wheels locked, Upper/Half-Length side-rails up, Non-Slip footwear 11/06/2023 10:27 EDT WBC 8.1 10^3/mcL RBC 4.25 10^6/mcL Hgb 14.0 G/dL Hct 39.8 % LOW MCV 93.7 fL MCH 32.9 pg HI MCHC 35.1 G/dL RDW 14.0 % Platelet 218 10^3/mcL MPV 6.1 fL LOW Neutrophil % 64.3 % Lymphocyte % 20.1 % Monocyte % 8.9 % Eosinophil % 6.0 % Basophil % 0.7 % Neutrophil, Absolute 5.2 10^3/mcL Lymphocyte, Absolute 1.6 10^3/mcL Monocyte, Absolute 0.7 10^3/mcL Eosinophil, Absolute 0.5 10^3/mcL HI Basophil, Absolute 0.1 10^3/mcL Glucose Level 85 mg/dL Sodium Level 137 mmol/L Potassium Level 4.0 mmol/L Chloride 103 mmol/L CO2 24 mmol/L Electrolyte Balance 10.0 mEq/L BUN 15 mg/dL Creatinine Lvl (s) 1.20 mg/dL BUN/Creatinine Ratio 12 ratio Calcium Lvl 8.4 mg/dL Albumin Level 1.7 G/dL LOW GFR Non- 59 ml/min/1.73sqm NA GFR 72 ml/min/1.73sqm NA ABO/Rh Interp O POS ABSC Interp (Gel) Negative ABSC Creatinine Clearance Calc 55.76 mL/min 11/06/2023 10:23 EDT Urinary Elimination Voiding, no difficulties Allergies Yes Consent Form Signed Yes Patient Dressed In Hospital gown Preop Nasal Swab Povidone-Iodine CHG Skin Prep Completed for Eligible Surgery History & Physical Update On Chart Yes History & Physical On Chart Yes NPO Status Maintained Allergy Band on and Verified Yes Patient ID Band on and Verified Yes Implants Verified Yes Pacemaker/AICD Verified Yes Site Verified by Patient/Family Yes Anesthesia Consent Signed Yes Blood Consent Signed Yes Last Fluid Intake 11/05/2023 0:00 Last Food Intake 11/05/2023 0:00 Last Void 11/06/2023 10:25 . Assessment and Plan [place] [employer] Anesthesiologists (ASA) physical status classification: Class III. Anesthetic Preoperative Plan Anesthetic technique: General. Postoperative pain management: interscalene block. Informed consent: signed by patient. Digitally Signed by ARIELLE FLORES on 11/06/2023 01:[address] [facility]03-07-2024 History of Present illness Narrative * Mckinley Guzman, CONNOR - 10/18/2023 10:47 AM EST Chief Complaint: right foot wound in the setting of [place] HPI: This 73 year old male with PMH indicated below significant for follow up of his wound on his right foot. Patient since last visit has transitioned from [place] to R AFO without issue. Went to [facility] who modified boot and brace with cutout plantarly under lesion. Relates he has noticed increased weakness to left foot and ankle. States left ankle drags when walking. Is fearful he is doing to trip. States he bought store bought AFO which helps but has worn two of them out. Relates a few years ago he had large bump on anterior ankle and then progressively noticed worsening symptoms. Cannot recall a traumatic event. Denies constitional symptoms He denies any other new pedal complaints today. Previous history: December 2016- medial column arthrodesis by Dr. 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 DULoxetine (CYMBALTA) 30 mg capsule Take 30 mg by mouth once daily. hydrOXYchloroQUINE (PLAQUENIL) 200 mg tablet linezolid (ZYVOX) 600 mg tablet budesonide/formoterol fumarate (SYMBICORT INHALATION) Inhale as instructed. tiotropium bromide (SPIRIVA RESPIMAT INHALATION) Inhale as instructed. leflunomide (ARAVA) 20 mg tablet Take 20 mg by mouth once daily. Risedronate 150 mg tablet Take 150 mg by mouth once every month. In AM with cup of water on empty stomach. Nothing else by mouth and stay upright for 30 min. montelukast (SINGULAIR) 10 mg tablet once daily. folic acid 1 mg tablet once daily. Multivitamin capsule Take 1 capsule by mouth once daily. mometasone (NASONEX) 50 mcg/actuation nasal spray Use 2 Sprays in the nose once daily. gabapentin (NEURONTIN) 400 mg capsule Take 1 capsule by mouth daily at bedtime for 90 days. doxycycline hyclate (VIBRAMYCIN) 100 mg capsule Take 100 mg by mouth twice daily. methotrexate sodium 25 mg/mL soln once each week. amoxicillin (POLYMOX, AMOXIL) 500 mg capsule once daily. (Patient not taking: Reported on 03/31/2021 ) predniSONE (DELTASONE) 5 mg tablet twice daily. (Patient not taking: Reported on 03/31/2021 ) BD TUBERCULIN SYRINGE 1 mL 25 x 5 syrg GLUCOSAMINE/CHONDROITIN SULF A (GLUCOSAMINE-CHONDROITIN ORAL) Take by mouth. No current facility-administered medications for this visit. : ALLERGIES Allergen Reactions Gluten Shortness of Breath Peanuts Shortness of Breath Yeast, Dried Shortness of Breath : PAST SURGICAL HISTORY Procedure Laterality Date ARTHRP KNE CONDYLE&PLATU MEDIAL&LAT COMPARTMENTS Left 08/13/2004 ARTHRP KNE CONDYLE&PLATU MEDIAL&LAT COMPARTMENTS Right 08/13/2014 CARPAL TUNNEL 82,83 x2 each wrist COLONOSCOPY 08/13/2009 FOOT SURGERY HX Right 07/2020 FOOT SURGERY HX Right 11/29/2020 INGUINAL HERNIA REPAIR HX Right 09/13/2014 LX REPAIR RECURRENT VENTRAL HERNIA 11/08/2015 Laparoscopic repair of recurrent ventral hernia PAST SURGICAL HISTORY OF 01/11/1993 kidney stone removal PAST SURGICAL HISTORY OF 08/13/1997 cardiac catherization PAST SURGICAL HISTORY OF Left 08/13/2005 knee revision PAST SURGICAL HISTORY OF 11/24/2022 Kidney stone removal REMOVAL OF PROSTATE 02/10/2013 SHOULDER SURGERY HX Right 08/21/2023 TONSILLECTOMY HX 08/13/1977 FAMILY HISTORY Problem Relation Age of Onset other (negative [Other]) Unknown : Social History Tobacco Use Smoking status: Never Smokeless tobacco: Never Substance Use Topics Alcohol use: No Drug use: No REVIEW OF SYSTEMS see tech note MSK: + as noted in HPI. Physical Exam: Patient is alert and oriented x 3 in NAD. Patient is a 73 year old male who appears well developed,well nourished and with good attention to hygiene and body habitus. Resp 18 Ht 177.8 cm (5' 10) Wt 102.1 kg (225 lb) BMI 32.28 kg/m Vascular: DP and PT pulses are palpable. CFT less than 3 seconds to all digits. Skin temperature iswarm to warm from proximal to distal. No increase in warmth to the right foot. Hair growth is absent. No varicosities noted. Neuro: Light touch intact. Protective sensation diminished at all pedal sites via Nicholson Dany 5.07 monofilament. Foot drop; L Derm: Skin texture and turgor within normal limits. Webspaces 1-4 clean, dry, intact b/l. There is a no ulceration noted, healed to the plantar 1st MTP right foot No surrounding erythema, no purulence, no evidence of infection. No hyperkeratotic tissue medial midfoot right foot. Musculoskeletal/Orthopaedic: General foot morphology: decreased medial longitudinal arch with plantar prominence at midfoot. 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 +4/5 muscle strength Dorsiflexion, Plantarflexion, Inversion, Eversion, no DF strength to LLE, limited PF strength. No palpable dell noted to achilles tendon. Non palpable AT tendon concerning for chronic rupture. Foot drop noted of LLE. ROM of the 1st MTPJ is decreased without pain or crepitus. ROM of the MTJ/STJ is decreasedwithout pain or crepitus. Ankle joint ROM is decreased. No erythema or edema about the plantar midfoot right. 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 The patient was educated on clinical and radiographic findings, diagnosis and treatment plans. Patient state that he understands all that has been explained and all questions were answered to his apparent satisfaction. - Continue AFO in supportive shoe gear - Continue daily foot exam - RX today for [employer] bionics for DF assist AFO for LLE - RTC 6 weeks Manuel Morales DPM PGY-3 I personally saw and evaluated the patient. I reviewed the resident's note. I agree with the resident's assessment and plan unless otherwise noted. Mckinley Guzman DPM, FACFAS [facility] Evaluation + Plan note* Assessment & Plan Note - Olivia Bey APRN - EMBROIDERY ASSISTANT - 10/01/2023 4:46 PM ESTAssociated Problem(s): Viral URI Symptoms x 4 days, mild. Denies any chest pain or chest tightness. No body aches or fever. Most consistent with mild viral URI. Lung sounds are clear. Recommend supportive therapy at home at this time. No antibiotics indicated. 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 [id number] Miscellaneous Notes* Assessment & Plan Note - DIVINE Michael CNP - 10/01/2023 4:46 PM ESTAssociated Problem(s): Viral URI Symptoms x 4 days, mild. Denies any chest pain or chest tightness. No body aches or fever. Most consistent with mild viral URI. Lung sounds are clear. Recommend supportive therapy at home at this time. No antibiotics indicated. 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 documented in this [facility]02[facility] History of Present illness Narrative* DIVINE Michael CNP - 10/01/2023 1:20 PM EST Images from the original note were not included. 10/01/2023 Shivani Bonilla (: 1950) is a 73 y.o. male , POD scheduled, Established patient, here for evaluation of the following chief complaint(s): Sinus Problem ASSESSMENT/PLAN: 1. Viral URI Assessment & Plan: Symptoms x 4 days, mild. Denies any chest pain or chest tightness. No body aches or fever. Most consistent with mild viral URI. Lung sounds are clear. Recommend supportive therapy at home at this time. No antibiotics indicated. 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 Orders: - ipratropium (Atrovent) 0.06 % nasal spray; Administer 2 sprays into each nostril 3 times daily for 7 days., Starting Sun10/01/2023, Until Sun10/08/2023, Normal Reviewed and provided written patient education/instructions regarding diagnosis and management. Reviewed symptom management with non-pharmacological interventions and appropriate use of otc medications for relief of symptoms. Follow up for worsening or no improvement in symptoms. Follow up if symptoms worsen or fail to improve. SUBJECTIVE/OBJECTIVE: [facility] - Shivani Bonilla (: 1950) is a 73 y.o. male , Established patient of Dr. Acosta , here for evaluation of the following chief complaint(s): Sinus Problem Started feeling sick last Sunday, green sinus drainage. Feels short of breath d/t the sinus congestion only, Does not feel congested in his chest. No fever. No body aches.no chest pain or chest tightness. Just feels tired. No known sick contacts. Mucinex extra strength,using saline nasal spray without much relief. No nausea or vomiting. Sees Dr. Fonseca in [place], pulmonology for his asthma. Prior to Admission medications Medication Sig Start Date End Date Taking? Authorizing Provider albuterol 108 (90 Base) MCG/ACT inhaler 07/18/22 Historical Provider, azelastine (Astelin) 0.1 % nasal spray Administer 1 spray into affected nostril(s) in the morning and 1 spray in the evening. Historical Provider, CRANBERRY PO Take by mouth. Historical Provider, flurbiprofen (Ansaid) 100 MG tablet Take 1 tablet by mouth daily. Historical Provider, gabapentin (Neurontin) 400 MG capsule Take 400 mg by mouth Nightly. 04/19/23 Historical Provider, leflunomide (Arava) 20 MG tablet 04/17/23 Historical Provider, montelukast (Singulair) 10 MG tablet 04/19/23 Historical Provider, Multiple Vitamin tablet Take 1 tablet by mouth daily. Historical Provider, Spiriva Respimat 1.25 MCG/ACT inhaler 03/26/23 Historical Provider, Symbicort 160-4.5 MCG/ACT inhaler 03/26/23 Historical Provider, Review of Systems Constitutional: Positive for activity change and fatigue. Negative for chills, diaphoresis and fever. HENT: Positive for congestion, postnasal drip, rhinorrhea and sinus pressure. Negative for sinus pain and sore throat. Respiratory: Positive for cough (to clear sinus drainage). Negative for chest tightness, shortness of breath and wheezing. Cardiovascular: Negative for chest pain. Gastrointestinal: Negative. Genitourinary: Negative for difficulty urinating. Neurological: Negative. Vitals: 10/01/23 1327 10/01/23 1330 BP: 115/76 Pulse: 81 Resp: 16 SpO2: (!) 89% 96% Weight: 235 lb (107 kg) Height: 5' 10 (1.778 m) Physical Exam Constitutional: General: He is not in acute distress. Appearance: Normal appearance. He is ill-appearing (mild). HENT: Head: Normocephalic and atraumatic. Right Ear: Tympanic membrane normal. Left Ear: Tympanic membrane normal. Nose: Congestion and rhinorrhea present. Right Turbinates: Swollen. Left Turbinates: Swollen. Mouth/Throat: Mouth: Mucous membranes are moist. Pharynx: Oropharynx is clear. No oropharyngeal exudate or posterior oropharyngeal erythema. Eyes: Conjunctiva/sclera: Conjunctivae normal. Cardiovascular: Rate and Rhythm: Normal rate and regular rhythm. Pulses: Normal pulses. Heart sounds: Normal heart sounds. Pulmonary: Effort: Pulmonary effort is normal. Breath sounds: Normal breath sounds. Lymphadenopathy: Cervical: No cervical adenopathy. Skin: General: Skin is warm and dry. Neurological: Mental Status: He is alert and oriented to person, place, and time. Psychiatric: Mood and Affect: Mood normal. Behavior: Behavior normal. An electronic signature was used to authenticate this note. DIVINE Michael CNP 10/01/2023 4:47 PM documented in this [facility]02-19-2024 Instructions* Patient Instructions* DIVINE Michael CNP - 10/01/2023 1:20 PM EST Restart fluticasone nasal spray daily. Reach out to your pharmaceutical operator if you feel like you are getting any congestion in your lungs. * Attachments The following attachments cannot be sent through Care Everywhere. * Viral Upper Respiratory Infection Discharge Instructions, Adult (Jordanian) documented in this [facility]01-25-2024 History of Present illness Narrative* Zoya Bob MA - 09/06/2023 1:11 PM EST REVIEW OF SYSTEMS: GENERAL: Well developed, well nourished. No acute distress PAIN: Negative for pain, history of chronic pain or current treatment for chronic pain conditions CARDIOVASCULAR: Negative for chest pain, leg swelling and palpations. MSK: Negative for joint swelling SKIN: Negative for lesions, rash, itching, metal sensitivity NEURO: Negative for seizure, trauma, numbness/tingling of extremities. ENDOCRINE: Negative for diabetic associated symptoms HEMATOLOGY: Negative for excessive bleeding, clots, bleeding disorders. Zoya Bob MA * Mckinley Guzman DPM - 09/06/2023 1:09 PM EST Chief Complaint: right foot wound in the setting of Charcot HPI: This 73 year old male with PMH indicated below significant for follow up of his wound on his right foot. Patient since lat visit has continued COLD [place]INGS boot. Went to [facility] who modified boot and brace with cutout plantarly under lesion. Since last visit patient competed ABX. States they believe wound has healed. Denies constitional symptoms He denies any other new pedal complaints today. Previous history: December 2016- medial column arthrodesis by Dr. 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 gabapentin (NEURONTIN) 400 mg capsule Take 1 capsule by mouth daily at bedtime for 90 days. DULoxetine (CYMBALTA) 30 mg capsule Take 30 mg by mouth once daily. hydrOXYchloroQUINE (PLAQUENIL) 200 mg tablet linezolid (ZYVOX) 600 mg tablet budesonide/formoterol fumarate (SYMBICORT INHALATION) Inhale as instructed. tiotropium bromide (SPIRIVA RESPIMAT INHALATION) Inhale as instructed. leflunomide (ARAVA) 20 mg tablet Take 20 mg by mouth once daily. doxycycline hyclate (VIBRAMYCIN) 100 mg capsule Take 100 mg by mouth twice daily. Risedronate 150 mg tablet Take 150 mg by mouth once every month. In AM with cup of water on empty stomach. Nothing else by mouth and stay upright for 30 min. methotrexate sodium 25 mg/mL soln once each week. montelukast (SINGULAIR) 10 mg tablet once daily. folic acid 1 mg tablet once daily. amoxicillin (POLYMOX, AMOXIL) 500 mg capsule once daily. (Patient not taking: Reported on 03/31/2021 ) predniSONE (DELTASONE) 5 mg tablet twice daily. (Patient not taking: Reported on 03/31/2021 ) BD TUBERCULIN SYRINGE 1 mL 25 x 5/8 syrg Multivitamin capsule Take 1 capsule by mouth once daily. GLUCOSAMINE/CHONDROITIN SULF A (GLUCOSAMINE-CHONDROITIN ORAL) Take by mouth. mometasone (NASONEX) 50 mcg/actuation nasal spray Use 2 Sprays in the nose once daily. No current facility-administered medications for this visit. : ALLERGIES Allergen Reactions Gluten Shortness of Breath Peanuts Shortness of Breath Yeast, Dried Shortness of Breath : PAST SURGICAL HISTORY Procedure Laterality Date ARTHRP KNE CONDYLE&PLATU MEDIAL&LAT COMPARTMENTS Left 08/13/2004 ARTHRP KNE CONDYLE&PLATU MEDIAL&LAT COMPARTMENTS Right 08/13/2014 CARPAL TUNNEL 82,83 x2 each wrist COLONOSCOPY 08/13/2009 FOOT SURGERY HX Right 07/2020 FOOT SURGERY HX Right 11/29/2020 INGUINAL HERNIA REPAIR HX Right 09/13/2014 LX REPAIR RECURRENT VENTRAL HERNIA 11/08/2015 Laparoscopic repair of recurrent ventral hernia PAST SURGICAL HISTORY OF 01/11/1993 kidney stone removal PAST SURGICAL HISTORY OF 08/13/1997 cardiac catherization PAST SURGICAL HISTORY OF Left 08/13/2005 knee revision PAST SURGICAL HISTORY OF 11/24/2022 Kidney stone removal REMOVAL OF PROSTATE 02/10/2013 TONSILLECTOMY HX 08/13/1977 FAMILY HISTORY Problem Relation Age of Onset other (negative [Other]) Unknown : Social History Tobacco Use Smoking status: Never Smokeless tobacco: Never Substance Use Topics Alcohol use: No Drug use: No REVIEW OF SYSTEMS see tech note MSK: + as noted in HPI. Physical Exam: Patient is alert and oriented x 3 in NAD. Patient is a 73 year old male who appears well developed,well nourished and with good attention to hygiene and body habitus. There were no vitals taken for this visit. Vascular: DP and PT pulses are palpable. CFT less than 3 seconds to all digits. Skin temperature iswarm to warm from proximal to distal. No increase in warmth to the right foot. Hair growth is absent. No varicosities noted. Neuro: Light touch intact. Protective sensation diminished at all pedal sites via Nicholson Dany 5.07 monofilament. Derm: Skin texture and turgor within normal limits. Webspaces 1-4 clean, dry, intact b/l. There is a no ulceration noted, healed to the plantar 1st MTP right foot No surrounding erythema, no purulence, no evidence of infection. No hyperkeratotic tissue medial midfoot right foot. Musculoskeletal/Orthopaedic: General foot morphology: decreased medial longitudinal arch with plantar prominence at midfoot. 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 +5/5 muscle strength Dorsiflexion, Plantarflexion, Inversion, Eversion bilateral ROM of the 1st MTPJ is decreased without pain or crepitus. ROM of the MTJ/STJ is decreasedwithout pain or crepitus. Ankle joint ROM is decreased. No erythema or edema about the plantar midfoot right. 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 The patient was educated on clinical and radiographic findings, diagnosis and treatment plans. Patient state that he understands all that has been explained and all questions were answered to his apparent satisfaction. - OK to transition from COLD SPRINGS to AFO in supportive shoe gear - Continue daily foot exam - RTC 6 weeks Manuel Morales DPM PGY-3 I personally saw and evaluated the patient. I reviewed the resident's note. I agree with the resident's assessment and plan unless otherwise noted. Mckinley Guzman DPM, FACFAS [facility] Discharge instructions Patient Education 08/22/2023 11:46:05 Reverse Total Shoulder Replacement, Care After Reverse Total Shoulder Replacement, Care After This sheet gives you information about how to care for yourself after your procedure. Your health care provider may also give you more specific instructions. If you have problems or questions, contact your health care provider. What can I expect after the procedure? After the procedure, it is common to have: Pain. Stiffness. Follow these instructions at home: If you have a sling: Wear the sling as told by your health care provider. Remove it only as told by your health care provider. Loosen the sling if your fingers tingle, become numb, or turn cold and blue. Keep the sling clean. If the sling is not waterproof, do not let it get wet. Bathing Do not take baths, swim, or use a hot tub until your health care provider approves. Ask your healthcare provider if you may take showers. You may only be allowed to take sponge baths for bathing. If your sling is not waterproof, cover it with a watertight covering when you take a bath or shower. Keep your bandage (dressing) dry until your health care provider says it can be removed. Incision care Follow instructions from your health care provider about how to take care of your incision. Make sure you: ?Wash your hands with soap and water before you change your bandage (dressing). If soap and water are not available, use hand cone marker. ?Change your dressing as told by your health care provider. ?Leave stitches (sutures), skin glue, or adhesive strips in place. These skin closures may need to stay in place for 2 weeks or longer. If adhesive strip edges start to loosen and curl up, you may trim the loose edges. Do not remove adhesive strips completely unless your health care provider tells you to do that. Check your incision every day for signs of infection. Check for: ?More redness, swelling, or pain. ?More fluid or blood. ?Warmth. ?Pus or a bad smell. Driving Ask your health care provider when it is safe for you to drive. Do not drive or use heavy machinery while taking prescription pain medicine. Do not drive for 24 hours if you were given a medicine to help you relax (sedative). Activity Return to your normal activities as told by your health care provider. Ask your health care provider what activities are safe for you. Do shoulder exercises as told by your health care provider. Do not lift your arm above shoulder level until your health care provider approves. Do not make large arm movements. Do not push or pull things until your health care provider approves. Do not lift anything that is heavier than 5 lbs (2.3 kg) until your health care provider approves. Managing pain, stiffness, and swelling If directed, put ice on your shoulder. ?Put ice in a plastic bag. ?Place a towel between your skin and the bag. ?Leave the ice on for 20 minutes, 2 3 times a day. Move your fingers and hand often to avoid stiffness and to lessen swelling. General instructions Do not use any products that contain nicotine or tobacco, such as cigarettes and e-cigarettes. These can delay bone healing. If you need help quitting, ask your health care provider. To prevent or treat constipation while you are taking prescription pain medicine, your health care provider may recommend that you: ?Drink enough fluid to keep your urine clear or pale yellow. ?Take tsur-vjw-bmkdtfq or prescription medicines. ?Eat foods that are high in fiber, such as fresh fruits and vegetables, whole grains, and beans. ?Limit foods that are high in fat and processed sugars, such as fried and sweet foods. Take lurq-chn-celibix and prescription medicines only as told by your health care provider. Keep all follow-up visits as told by your health care provider. This is important. Contact a health care provider if: You feel nauseous or you vomit. You are constipated. Constipation is when you have: ?Fewer bowel movements in a week than normal. ?Difficulty having a bowel movement. ?Stools that are dry, hard, or larger than normal. Your arm tingles or feels numb. Your pain gets worse, even after taking pain medicine. You have more redness, swelling, or pain around your incision. You have more fluid or blood coming from your incision. Your incision feels warm to the touch. You have pus or a bad smell coming from your incision. You have a fever. Get help right away if: Your shoulder joint moves out of place. Your incision comes apart. This information is not intended to replace advice given to you by your health care provider. Make sure you discuss any questions you have with your health care provider. Document Released: 01/30/2017 Document Revised: 03/22/2017 Document Reviewed: 01/30/2017 [employer] Patient Education 2020 Swag Of The Month. 08/22/2023 07:49:08 5 - [facility] Post-op Instruction 03/2017 (08270) [facility] Post-operative Instructions PLEASE FOLLOW [facility] POST-OP INSTRUCTIONS GIVEN WATCH FOR SIGNS OF INFECTION: call the office ([phone]) if experencing any of the following: (Usually appears 36-48 hours after surgery) Increased temperature (101 degrees Fahrenheit or higher) Redness or swelling Increased uncontrolled pain Foul odor or drainage Calf discomfort Significant swelling Or if having any chest pain, shortness of breath, or difficulty breathing or swallowing call the office or go the nearest Emergency Room. If you have any questions, please call your doctor at the number listed on your follow up instructions. Form: [id number]) R: 12/17 Follow Up Care 06/15/2023 14:50:15 With:BRANDON FINNEY PA-C, Orthopedic Address: [facility] [address] [place] [phone]- When:09/03/2023 09:45:00 Comments:This is your post-op appointment. Follow-up as scheduled. With:[facility] Address: [address] [place] [phone] When:09/03/2023 13:30:00 Comments:This is your first physical therapy appointment. Follow-up as scheduled. [facility] 01-10-2024 Note Discharge Instructions Thank you for allowing [facility] to assist you with your healthcare needs. The following is importantdischarge information regarding your hospital visit. Your Care Team GANGA ACOSTA DO Your Diagnosis Asthma KEZIA on CPAP Osteoarthritis Status post reverse total replacement of right shoulder What to do next Scheduled Follow-Up Appointments Appointment Type When Where Contact InformationPT Outpatient Evaluation 09/03/2023 01:30 PM EST [facility] [phone] Follow Up Appointments Follow Up with [facility] When 09/03/2023 01:30 PM EST Why: This is your first physical therapy appointment. Follow-up as scheduled. Where: [address] [place] [address]- [phone] Follow Up with BRANDON FINNEY PA-C, Orthopedic When 09/03/2023 09:45 AM EST Why: This is your post-op appointment. Follow-up as scheduled. Where: [facility] [address] [place] [address]- The Following Treatments Have Been Ordered for You Discharge Labs No qualifying data available. Discharge Radiology No qualifying data available. Other Therapies No qualifying data available. Post Acute Orders No qualifying data available. Allergies Brewers Yeast (Diarrhea) Coffee Medications Please ask your primary doctor or pharmacist before taking any other medication not listed, including over the counter drugs, herbal medications, vitamins and or supplements as they may interact withyour home medications. What How Much When Why Instructions Last Dose New aspirin 81 Milligram by mouth Two (2) times a day Duration: 14 Days Take 81 mg aspirin twice daily with food for 2 weeks postoperatively for DVT prophylaxis. New docusate-senna (Senokot S 50 mg-8.6 mg oral tablet) 2 tab(s) by mouth Two (2) times a day Duration: 3 Days Take until first bowel movement, then as needed Pickup at [facility] #[id number] New famotidine (Pepcid 20 mg oral tablet) 1 tab(s) by mouth Once a day Duration: 14 Days Pickup at [facility] #[id number] New oxyCODONE (oxyCODONE 5 mg oral tablet ( IMMEDIATE release )) See instructions Status post reverse total replacement of right shoulder 1-2 tab(s) Oral q4h Pickup at [facility] #[id number] New sulfamethoxazole-trimethoprim (Bactrim DS 800 mg-160 mg oral tablet) 1 tab(s) by mouth Two (2) times a day Duration: 14 Days Pickup at [facility] #[id number] Changed acetaminophen (Tylenol) 1,000 Milligram by mouth Three (3) times a day Unchanged azelastine nasal (Astelin) 1 spray(s) in the nose Two (2) times a day Unchanged budesonide-formoterol (Symbicort 160 mcg-4.5 mcg/ inh Inhaler) 2 puff(s) by inhalation Every day Unchanged chlorhexidine topical (chlorhexidine 0.12% oral rinse liquid) 15 Milliliter by mouth Two (2) times a day Unchanged chondroitin/ glucosamine/ methylsulfonylmethane (Glucosamine Chondroitin MSM Complex) 1 tab(s) by mouth Two (2) times a day Unchanged flurbiprofen (flurbiprofen 100 mg oral tablet) 1 tab(s) by mouth Daily at bedtime Unchanged gabapentin (gabapentin 400 mg oral capsule) 1 cap by mouth Once a day Unchanged herbal/ nutritional product (cranberry oral tablet) 1 tab(s) by mouth Every day Unchanged hydroxychloroquine (hydroxychloroquine 200 mg oral tablet) 1 tab(s) by mouth Once a day Unchanged latanoprost ophthalmic (latanoprost 0.005% ophthalmic solution) 1 Drops Ophthalmic Daily at bedtime Unchanged leflunomide (leflunomide 20 mg oral tablet) 1 tab(s) by mouth Once a day Unchanged mometasone nasal (Nasonex 50 mcg/ inh nasal spray) 2 spray(s) in the nose Every day as needed for for allergy symptoms Unchanged montelukast (montelukast 10 mg oral tablet) 1 tab(s) by mouth Once a day Unchanged multivitamin (Multivitamin) 1 tab(s) by mouth Every day Unchanged tiotropium (Spiriva Respimat 1.25 mcg/ inh inhalation aerosol) 2 puff(s) by inhalation Once a day Pharmacy Information [facility] #[id number]: [address], [place] [phone] Please take this list to your next doctor s visit. Bring all medications you take, including over the counter medications, herbals and other supplements with you to your doctor s visit. Patients and families are reminded to discard old lists and to update any records with all medication providers or retail pharmacies. Medication Leaflets aspirin (oral) ( pir in) Aspi-Cor, Jose Manuel Plus, Durlaza, Ecotrin, Miniprin, Vazalore What is the most important information I should know about aspirin? Aspirin can cause Patrice's syndrome, a serious and sometimes fatal condition in children. What is aspirin? Aspirin is a salicylate (nf-WKJ-nz-ate) that is used to treat pain, and reduce fever or inflammation. Aspirin is sometimes used to treat or prevent heart attacks, strokes, and chest pain (angina). Aspirin should be used for these conditions only under the supervision of a doctor. Aspirin may also be used for purposes not listed in this medication guide. What should I discuss with my healthcare provider before taking aspirin? Using aspirin in a child or teenager with flu symptoms or chickenpox can cause a serious or fatal condition called Patrice's syndrome. You should not use aspirin if you are allergic to it, or if you have: a recent history of stomach or intestinal bleeding; a bleeding disorder such as hemophilia; or if you have ever had an asthma attack or severe allergic reaction after taking aspirin or an NSAID (non-steroidal anti-inflammatory drug). Tell your doctor if you have ever had: asthma or seasonal allergies; stomach ulcers; liver disease; kidney disease; a bleeding or blood clotting disorder; gout; or heart disease, high blood pressure, or congestive heart failure. Taking aspirin during late may cause bleeding in the mother or the baby during delivery. Tell your doctor if you are or plan to become . You should not breastfeed while using this medicine. How should I take aspirin? Use exactly as directed on the label, or as prescribed by your doctor. Always follow directions on the medicine label about giving aspirin to a child. Take with food if aspirin upsets your stomach. You must chew the chewable tablet before you swallow it. Do not crush, chew, break, or open an enteric-coated or delayed/extended-release pill. Swallow it whole. Tell your doctor if you have a planned surgery. Store at room temperature away from moisture and heat. Do not use aspirin if you smell a strong vinegar odor in the aspirin bottle. The medicine may no longer be effective. What happens if I miss a dose? Aspirin is used when needed. If you are on a dosing schedule, skip any missed dose. Do not use two doses at one time. What happens if I overdose? Seek emergency medical attention or call the Poison Help line at . Overdose may cause stomach pain, vomiting, diarrhea, vision or hearing problems, fast or slow breathing, or confusion. What should I avoid while taking aspirin? Avoid alcohol. Heavy drinking can increase your risk of stomach bleeding. Avoid taking ibuprofen if you take aspirin to prevent stroke or heart attack. Ibuprofen can make aspirin less effective in protecting your heart and blood vessels. Ask your doctor how far apart your doses should be. Ask a doctor or pharmacist before using other medicines for pain, fever, swelling, or cold/flu symptoms. They may contain ingredients similar to aspirin (such as magnesium salicylate, ibuprofen, ketoprofen, or naproxen). What are the possible side effects of aspirin? Get emergency medical help if you have signs of an allergic reaction: hives; difficult breathing; swelling of your face, lips, tongue, or throat. Stop using aspirin and call your doctor at once if you have: ringing in your ears, confusion, hallucinations, rapid breathing, seizure (convulsions); severe nausea, vomiting, or stomach pain; bloody or tarry stools, coughing up blood or vomit that looks like coffee grounds; fever lasting longer than 3 days; or swelling, or pain lasting longer than 10 days. Common side effects may include: upset stomach, heartburn; drowsiness; or mild headache. This is not a complete list of side effects and others may occur. Call your doctor for medical advice about side effects. You may report side effects to FDA at 4-423-SLA-7887. What other drugs will affect aspirin? Ask your doctor before using aspirin if you take an antidepressant. Taking certain antidepressants with aspirin may cause you to bruise or bleed easily. Ask a doctor or pharmacist before using aspirin with any other medications, especially: a blood thinner (warfarin, Coumadin, Jantoven), or other medication used to prevent blood clots; or other salicylates such as Nuprin Backache Caplet, Kaopectate, KneeRelief, Pamprin Cramp Formula, Pepto-Bismol, Tricosal, Trilisate, and others. This list is not complete. Other drugs may affect aspirin, including prescription and mfbr-ncs-uerehzp medicines, vitamins, and herbal products. Not all possible drug interactions are listed here. Where can I get more information? Your pharmacist can provide more information about aspirin. Remember, keep this and all other medicines out of the reach of children, never share your medicines with others, and use this medication only for the indication prescribed. Every effort has been made to ensure that the information provided by [employer]') is accurate, up-to-date, and complete, but no guarantee is made to that effect. Drug information contained herein may be time sensitive. [employer] information has been compiled for use by healthcare practitioners and consumers in the [place] and therefore [employer] does not warrant that uses outside of the [place] are appropriate, unless specifically indicated otherwise. [employer]'s drug information does not endorse drugs, diagnose patients or recommend therapy. [employer] drug information isan informational resource designed to assist licensed healthcare practitioners in caring for their p atients and/or to serve consumers viewing this service as a supplement to, and not a substitute for, the expertise, skill, knowledge and judgment of healthcare practitioners. The absence of a warningfor a given drug or drug combination in no way should be construed to indicate that the drug or drug combination is safe, effective or appropriate for any given patient. [employer] does not assume any responsibility for any aspect of healthcare administered with the aid of information [employer] provides. The information contained herein is not intended to cover all possible uses, directions, precautions, warnings, drug interactions, allergic reactions, or adverse effects. If you have questions about the drugs you are taking, check with your doctor, nurse or pharmacist. Copyright 8145-9375 [employer]. Version: 18.01. Revision Date: 03/05/2023. oxycodone (ox i KOE done) Oxaydo, OxyCONTIN, Roxicodone, RoxyBond, Xtampza ER What is the most important information I should know about oxycodone? MISUSE OF OPIOID MEDICINE CAN CAUSE ADDICTION, OVERDOSE, OR . Keep the medication in a place where others cannot get to it. Taking opioid medicine during may cause life-threatening withdrawal symptoms in the . Fatal side effects can occur if you use opioid medicine with alcohol, or with other drugs that cause drowsiness or slow your breathing. What is oxycodone? Oxycodone is an opioid pain medication used to treat moderate to severe pain. The extended-release form of oxycodone is for yiqgmb-agu-akknz treatment of pain and should not be used on an as-needed basis for pain. Oxycodone may also be used for purposes not listed in this medication guide. What should I discuss with my healthcare provider before using oxycodone? You should not use oxycodone if you are allergic to it, or if you have: severe asthma or breathing problems; or a blockage in your stomach or intestines. You should not use oxycodone unless you are already using a similar opioid medicine and are tolerant to it. Most brands of oxycodone are not approved for use in people under 18. OxyContin should not be givento a child younger than 11 years old. Tell your doctor if you have ever had: breathing problems, sleep apnea; a head injury, or seizures; drug or alcohol addiction, or mental illness; liver or kidney disease; urination problems; or problems with your gallbladder, pancreas, or thyroid. If you use opioid medicine while you are , your baby could become dependent on the drug. This can cause life-threatening withdrawal symptoms in the baby after it is born. Babies born dependent on opioids may need medical treatment for several weeks. Ask a doctor before using opioid medicine if you are . Tell your doctor if you notice severe drowsiness or slow breathing in the nursing baby. How should I use oxycodone? Follow the directions on your prescription label and read all medication guides. Never use oxycodone in larger amounts, or for longer than prescribed. Tell your doctor if you feel an increased urge to take more of this medicine. Never share opioid medicine with another person, especially someone with a history of drug abuse oraddiction. MISUSE CAN CAUSE ADDICTION, OVERDOSE, OR . Keep the medication in a place where others cannot get to it. Selling or giving away opioid medicine is against the law. Stop taking all other iqbcmn-bal-ycnlw opioid pain medicines when you start taking extended-releaseoxycodone. Take oxycodone with food. Swallow the capsule or tablet whole to avoid exposure to a potentially fatal overdose. Do not crush, chew, break, open, or dissolve. If you cannot swallow a capsule whole, open it and sprinkle the medicine into a spoonful of puddingor applesauce. Swallow the mixture right away without chewing. Do not save it for later use. Never crush or break an oxycodone pill to inhale the powder or mix it into a liquid to inject the drug into your vein. This can cause in . Measure liquid medicine carefully. Use the dosing syringe provided, or use a medicine dose-measuring device (not a kitchen spoon). You should not stop using oxycodone suddenly. Follow your doctor's instructions about tapering yourdose. Store at room temperature, away from heat, moisture, and light. Keep track of your medicine. Oxycodone is a drug of abuse and you should be aware if anyone is using your medicine improperly or without a prescription. Do not keep leftover opioid medication. Just one dose can cause in someone using this medicine accidentally or improperly. Ask your pharmacist where to locate a drug take-back disposal program.If there is no take-back program, flush the unused medicine down the toilet. What happens if I miss a dose? Since oxycodone is used for pain, you are not likely to miss a dose. Skip any missed dose if it is almost time for your next dose. Do not use two doses at one time. What happens if I overdose? Seek emergency medical attention or call the Poison Help line at . An opioid overdosecan be fatal, especially in a child or other person using the medicine without a prescription. Overdose symptoms may include severe drowsiness, pinpoint pupils, slow breathing, or no breathing. Your doctor may recommend you get naloxone (a medicine to reverse an opioid overdose) and keep it with you at all times. A person caring for you can give the naloxone if you stop breathing or don't wake up. Your caregiver must still get emergency medical help and may need to perform CPR (cardiopulmonary resuscitation) on you while waiting for help to arrive. Anyone can buy naloxone from a pharmacy or local health department. Make sure any person caring foryou knows where you keep naloxone and how to use it. What should I avoid while using oxycodone? Do not drink alcohol. Dangerous side effects or could occur. Avoid driving or operating machinery until you know how oxycodone will affect you. Dizziness or severe drowsiness can cause falls or other accidents. Avoid medication errors. Always check the brand and strength of oxycodone you get from the pharmacy. What are the possible side effects of oxycodone? Get emergency medical help if you have signs of an allergic reaction: hives; difficult breathing; swelling of your face, lips, tongue, or throat. Opioid medicine can slow or stop your breathing, and may occur. A person caring for you should give naloxone and/or seek emergency medical attention if you have slow breathing with long pauses,blue colored lips, or if you are hard to wake up. Call your doctor at once if you have: noisy breathing, sighing, shallow breathing, breathing that stops during sleep; a slow heart rate or weak pulse; a light-headed feeling, like you might pass out; confusion, unusual thoughts or behavior; seizure (convulsions); low cortisol levels-- nausea, vomiting, loss of appetite, dizziness, worsening tiredness or weakness; or high levels of serotonin in the body--agitation, hallucinations, fever, sweating, shivering, fast heart rate, muscle stiffness, twitching, loss of coordination, nausea, vomiting, diarrhea. Serious breathing problems may be more likely in older adults and in those who are debilitated or have wasting syndrome or chronic breathing disorders. Common side effects may include: drowsiness, headache, dizziness, tiredness; or constipation, stomach pain, nausea, vomiting. This is not a complete list of side effects and others may occur. Call your doctor for medical advice about side effects. You may report side effects to FDA at 0-736-OXQ-2858. What other drugs will affect oxycodone? You may have breathing problems or withdrawal symptoms if you start or stop taking certain other medicines. Tell your doctor if you also use an antibiotic, antifungal medication, heart or blood pressure medication, seizure medication, or medicine to treat HIV or hepatitis C. Opioid medication can interact with many other drugs and cause dangerous side effects or . Be sure your doctor knows if you also use: cold or allergy medicines, bronchodilator asthma/COPD medication, or a diuretic ('water pill'); medicines for motion sickness, irritable bowel syndrome, or overactive bladder; other opioids--opioid pain medicine or prescription cough medicine; a sedative like Valium--diazepam, alprazolam, lorazepam, Xanax, Klonopin, Versed, and others; drugs that make you sleepy or slow your breathing--a sleeping pill, muscle relaxer, medicine to treat mood disorders or mental illness; or drugs that affect serotonin levels in your body--a stimulant, or medicine for depression, Parkinson's disease, migraine headaches, serious infections, or nausea and vomiting. This list is not complete and many other drugs may affect oxycodone. This includes prescription tliycjy-kof-gmuwxhl medicines, vitamins, and herbal products. Not all possible drug interactions are listed here. Where can I get more information? Your pharmacist can provide more information about oxycodone. Remember, keep this and all other medicines out of the reach of children, never share your medicines with others, and use this medication only for the indication prescribed. Every effort has been made to ensure that the information provided by [employer]. ('[employer]') is accurate, up-to-date, and complete, but no guarantee is made to that effect. Drug information contained herein may be time sensitive. [employer] information has been compiled for use by healthcare practitioners and consumers in the [place] and therefore [employer] does not warrant that uses outside of the [place] are appropriate, unless specifically indicated otherwise. [employer] drug information does not endorse drugs, diagnose patients or recommend therapy. [employer] drug information isan informational resource designed to assist licensed healthcare practitioners in caring for their p atients and/or to serve consumers viewing this service as a supplement to, and not a substitute for, the expertise, skill, knowledge and judgment of healthcare practitioners. The absence of a warningfor a given drug or drug combination in no way should be construed to indicate that the drug or drug combination is safe, effective or appropriate for any given patient. [employer] does not assume any responsibility for any aspect of healthcare administered with the aid of information [employer] provides. The information contained herein is not intended to cover all possible uses, directions, precautions, warnings, drug interactions, allergic reactions, or adverse effects. If you have questions about the drugs you are taking, check with your doctor, nurse or pharmacist. Copyright 6658-3499 [employer]. Version: 16.. Revision Date: 03/16/2023. sulfamethoxazole and trimethoprim (oral/injection) (SUL fa meth OX a zole and trye METH oh prim) Bactrim, Bactrim DS, Sulfatrim Pediatric What is the most important information I should know about sulfamethoxazole and trimethoprim? Use only as directed. Tell your doctor if you use other medicines or have other medical conditions or allergies. What is sulfamethoxazole and trimethoprim? Sulfamethoxazole and trimethoprim is a combination antibiotic used to treat ear infections, urinarytract infections, bronchitis, traveler's diarrhea, shigellosis, and Pneumocystis jiroveci pneumonia. Sulfamethoxazole and trimethoprim may also be used for purposes not listed in this medication guide. What should I discuss with my healthcare provider before using sulfamethoxazole and trimethoprim? You should not use this medicine if you are allergic to sulfamethoxazole or trimethoprim, or if youhave: severe liver disease; kidney disease that is not being treated or monitored; anemia (low red blood cells) caused by folic acid deficiency; a history of low blood platelets after taking trimethoprim or any sulfa drug; or if you take dofetilide. May cause defects. Do not use if you are . Tell your doctor if you become . Do not breastfeed. This medicine should not be given to a child younger than 2 months old. Tell your doctor if you have ever had: kidney or liver disease; a folate (folic acid) deficiency; asthma or severe allergies; HIV or AIDS; a thyroid disorder; malnourishment; alcoholism; an electrolyte imbalance (such as low blood sodium or high potassium); porphyria, or cqypdsz-6-znwntxivs dehydrogenase (G6PD) deficiency; or if you use a blood thinner (such as warfarin) and you have routine 'INR' or prothrombin time tests. How should I use sulfamethoxazole and trimethoprim? Follow all directions on your prescription label and read all medication guides or instruction sheets. Use the medicine exactly as directed. Sulfamethoxazole and trimethoprim oral is taken by mouth. Shake the oral suspension (liquid). Measure a dose with the supplied measuring device (not a kitchen spoon). Sulfamethoxazole and trimethoprim injection is given in a vein. Be sure you understand how to properly mix this medicine with a liquid (diluent) and how to store the mixture. Ask your doctor or pharmacist if you don't understand how to use an injection. Prepare an injection only when you are ready to give it. Call your pharmacist if the medicine lookscloudy, has changed colors, or has particles in it. Mixed medicine must be used within 2 to 6 hours depending on the amount of diluent in the mixture. Follow your doctor's instructions. Do not refrigerate mixed medicine. Do not reuse a needle or syringe. Place them in a puncture-proof 'sharps' container and dispose of it following state or local laws. Keep out of the reach of children and pets. Drink plenty of fluids to prevent kidney stones. Antibiotic medicines can cause diarrhea. Tell your doctor if you have diarrhea that is watery or bloody. Keep using this medicine even if your symptoms quickly improve. Skipping doses could make your infection resistant to medication. Sulfamethoxazole and trimethoprim will not treat a viral infection (flu or a common cold). You may need blood and urine tests, and this medicine may be stopped based on the results. Store at room temperature away from moisture, heat, and light. Do not refrigerate. What happens if I miss a dose? Use the medicine as soon as you can, but skip the missed dose if it is almost time for your next dose. Do not use two doses at one time. What happens if I overdose? Seek emergency medical attention or call the Poison Help line at . Overdose symptoms may include loss of appetite, vomiting, fever, blood in your urine, yellowing of your skin or eyes, confusion, or loss of consciousness. What should I avoid while using sulfamethoxazole and trimethoprim? If you use the injection form of this medicine, do not eat or drink anything that contains propylene glycol (an ingredient in many processed foods, soft drinks, and medicines). Dangerous effects could occur. Sulfamethoxazole and trimethoprim could make you sunburn more easily. Avoid sunlight or tanning beds. Wear protective clothing and use sunscreen (SPF 30 or higher) when you are outdoors. What are the possible side effects of sulfamethoxazole and trimethoprim? Get emergency medical help if you have signs of an allergic reaction (hives, cough, chest pain, shortness of breath, swelling in your face or throat) or a severe skin reaction (fever, sore throat, burning eyes, skin pain, red or purple skin rash with blistering and peeling). Seek medical treatment if you have a serious drug reaction that can affect many parts of your body.Symptoms may include: skin rash, fever, swollen glands, joint pain, muscle aches, severe weakness, pale skin, unusual bruising, or yellowing of your skin or eyes. Call your doctor at once if you have: severe stomach pain, diarrhea that is watery or bloody (even if it occurs months after your last dose); any skin rash, no matter how mild; yellowing of your skin or eyes; a seizure; new or unusual joint pain; increased or decreased urination; swelling, bruising, or irritation around the IV needle; increased thirst, dry mouth, fruity breath odor; new or worsening cough, fever, trouble breathing; high blood potassium--nausea, weakness, tingly feeling, chest pain, irregular heartbeats, loss of movement; low blood sodium--headache, confusion, problems with thinking or memory, weakness, feeling unsteady; or low blood cell counts--fever, chills, mouth sores, skin sores, easy bruising, unusual bleeding, pale skin, cold hands and feet, feeling light-headed or short of breath. Common side effects may include: nausea, vomiting, loss of appetite; or skin rash. This is not a complete list of side effects and others may occur. Call your doctor for medical advice about side effects. You may report side effects to FDA at 2-873-XFW-1785. What other drugs will affect sulfamethoxazole and trimethoprim? You may need more frequent check-ups or medical tests if you also use medicine to treat depression,diabetes, seizures, or HIV. Tell your doctor about all your current medicines. Many drugs can affect sulfamethoxazole and trimethoprim, especially: amantadine, digoxin, cyclosporine, indomethacin, leucovorin, methotrexate, procainamide, pyrimethamine; an 'SUSHANT inhibitor' heart or blood presure medication (benazepril, enalapril, lisinopril, quinapril,ramipril, and others); or a diuretic or 'water pill'. This list is not complete and many other drugs may affect sulfamethoxazole and trimethoprim. This includes prescription and ibww-oyy-qthzvtx medicines, vitamins, and herbal products. Not all possibledrug interactions are listed here. Where can I get more information? Your pharmacist can provide more information about sulfamethoxazole and trimethoprim. Remember, keep this and all other medicines out of the reach of children, never share your medicines with others, and use this medication only for the indication prescribed. Every effort has been made to ensure that the information provided by [employer]. ('[employer]') is accurate, up-to-date, and complete, but no guarantee is made to that effect. Drug information contained herein may be time sensitive. [employer] information has been compiled for use by healthcare practitioners and consumers in the [place] and therefore [employer] does not warrant that uses outside of the [place] are appropriate, unless specifically indicated otherwise. [employer] drug information does not endorse drugs, diagnose patients or recommend therapy. [employer] drug information isan informational resource designed to assist licensed healthcare practitioners in caring for their p atients and/or to serve consumers viewing this service as a supplement to, and not a substitute for, the expertise, skill, knowledge and judgment of healthcare practitioners. The absence of a warningfor a given drug or drug combination in no way should be construed to indicate that the drug or drug combination is safe, effective or appropriate for any given patient. [employer] does not assume any responsibility for any aspect of healthcare administered with the aid of information [employer] provides. The information contained herein is not intended to cover all possible uses, directions, precautions, warnings, drug interactions, allergic reactions, or adverse effects. If you have questions about the drugs you are taking, check with your doctor, nurse or pharmacist. Copyright [id number] [employer]. Version: 13.. Revision Date: 03/15/2023. acetaminophen (oral) (a SEET a MIN oh fen) Anacin AF, Children's Tylenol, Mapap, M-Pap, Pharbetol, Silapap Childrens, Tempra Quicklets, Tycolene, Tylenol What is the most important information I should know about acetaminophen? An overdose of acetaminophen can damage your liver or cause . Call your doctor at once if you have upper stomach pain, loss of appetite, dark urine, or jaundice (yellowing of your skin or eyes). Stop taking this medicine and get medical help if you have skin redness or a blistering rash. What is acetaminophen? Acetaminophen is used to reduce fever and relieve minor pain caused by conditions such as colds or flu, headache, muscle aches, arthritis, and menstrual cramps. Acetaminophen may also be used for purposes not listed in this medication guide. What should I discuss with my healthcare provider before taking acetaminophen? You should not take acetaminophen if you are allergic to it, or if you take other medications that contain acetaminophen. Ask a doctor or pharmacist if this medicine is safe to use if you've ever had cirrhosis of the liver, or if you drink alcohol daily. Ask a doctor before using this medicine if you are or . How should I take acetaminophen? Use exactly as directed on the label, or as prescribed by your doctor. An acetaminophen overdose can damage your liver or cause . Adults and teenagers at least 12 years old: Do not take more than 1000 milligrams (mg) at one time or more than 4000 mg in 24 hours. Children younger than 12 years old: Do not take more than 5 doses of children's formula acetaminophen in 24 hours. Do not give extra-strength acetaminophen to a child younger than 12 years old without medical advice. A child's dose is based on age and weight. Carefully follow the dosing instructions provided with this medicine. Ask a doctor before giving this medicine to a child younger than 2 years. Acetaminophen made for infants comes with its own medicine dropper or oral syringe. Measuring with the wrong device may cause an overdose. Use only the provided dosing device provided to measure an infant's dose. Acetaminophen comes in many different forms such as capsules, liquid, chewable or disintegrating tablets, and dissolving powders or granules. Read and carefully follow any Instructions for Use provided with your medicine. Ask your doctor or pharmacist if you need help. Stop taking acetaminophen and call your doctor if: you still have a sore throat after 2 days of use; you still have a fever after 3 days of use; you still have pain after 7 days of use (or 5 days if treating a child); you have a skin rash, ongoing headache, nausea, vomiting, redness or swelling; or your symptoms get worse, or if you have any new symptoms. Taking acetaminophen may cause false results with certain blood glucose monitors. If you have diabetes, ask your doctor about the best way to monitor your blood sugar levels while using acetaminophen. Store at room temperature away from heat and moisture. What happens if I miss a dose? Acetaminophen is used when needed. If you are on a dosing schedule, skip any missed dose. Do not use two doses at one time. What happens if I overdose? Seek emergency medical attention or call the Poison Help line at . An overdose can befatal. Overdose symptoms include vomiting, stomach pain, and yellowing of your skin or eyes. What should I avoid while taking acetaminophen? Avoid using other medicines that may contain acetaminophen. Avoid drinking alcohol. What are the possible side effects of acetaminophen? Get emergency medical help if you have signs of an allergic reaction: hives; difficulty breathing; swelling of your face, lips, tongue, or throat. In rare cases, acetaminophen may cause a severe skin reaction that can be fatal, even if you took acetaminophen in the past and had no reaction. Stop taking this medicine and call your doctor right away if you have skin redness or a rash that spreads and causes blistering and peeling. Stop taking acetaminophen and call your doctor at once if you have signs of liver problems: stomach pain (upper right side); loss of appetite; tiredness, itching; dark urine, josh-colored stools; or jaundice (yellowing of the skin or eyes). Less serious side effects may be more likely, and you may have none at all. This is not a complete list of side effects and others may occur. Call your doctor for medical advice about side effects. You may report side effects to FDA at 9-145-BVV-7468. What other drugs will affect acetaminophen? Other drugs may affect acetaminophen, including prescription and yydl-kty-hxwovey medicines, vitamins, and herbal products. Tell your doctor about all other medicines you use. Where can I get more information? Your pharmacist can provide more information about acetaminophen. Remember, keep this and all other medicines out of the reach of children, never share your medicines with others, and use this medication only for the indication prescribed. Every effort has been made to ensure that the information provided by [employer]. ('[employer]') is accurate, up-to-date, and complete, but no guarantee is made to that effect. Drug information contained herein may be time sensitive. [employer] information has been compiled for use by healthcare practitioners and consumers in the [place] and therefore [employer] does not warrant that uses outside of the [place] are appropriate, unless specifically indicated otherwise. [employer] drug information does not endorse drugs, diagnose patients or recommend therapy. [employer] drug information isan informational resource designed to assist licensed healthcare practitioners in caring for their p atients and/or to serve consumers viewing this service as a supplement to, and not a substitute for, the expertise, skill, knowledge and judgment of healthcare practitioners. The absence of a warningfor a given drug or drug combination in no way should be construed to indicate that the drug or drug combination is safe, effective or appropriate for any given patient. [employer] does not assume any responsibility for any aspect of healthcare administered with the aid of information [employer] provides. The information contained herein is not intended to cover all possible uses, directions, precautions, warnings, drug interactions, allergic reactions, or adverse effects. If you have questions about the drugs you are taking, check with your doctor, nurse or pharmacist. Copyright 1910-1464 [employer]. Version: 25.. Revision Date: 03/12/2023. docusate and senna (DOK ricky sate and SEN a) Colace 2-in-1, Senexon-S, Senna Plus, Senna S, Senna-Time S, Senokot S, SenoSol- SS, Stool Softener + Stimulant Laxative, Stool Softener with Laxative What is the most important information I should know about docusate and senna? Use exactly as directed on the label, or as prescribed by your doctor. What is docusate and senna? Docusate is a stool softener. Senna is a laxative. Docusate and senna is a combination medicine used to treat occasional constipation. Docusate and senna may also be used for purposes not listed in this medication guide. What should I discuss with my healthcare provider before using docusate and senna? You should not use this medicine if you are allergic to docusate or senna, or if you are also taking mineral oil. Ask a doctor or pharmacist if this medicine is safe to use if you have ever had: nausea or vomiting; stomach pain; a sudden change in bowel habits that lasts for 2 weeks or longer; or an intestinal disorder such as Crohn's disease or ulcerative colitis. Ask a doctor before using this medicine if you are or . Do not give this medicine to a child younger than 2 years old without medical advice. How should I use docusate and senna? Use exactly as directed on the label, or as prescribed by your doctor. Take docusate and senna with a full glass of water. It may be best to take this medicine at night or at bedtime. Docusate and senna should cause you tohave a bowel movement within 6 to 12 hours. Do not take docusate and senna for longer than 7 days in a row, unless your doctor tells you to. Call your doctor if your constipation does not improve or if it gets worse after taking docusate and senna. Store at room temperature away from moisture and heat. What happens if I miss a dose? Since docusate and senna is used when needed, you may not be on a dosing schedule. Skip any missed dose if it's almost time for your next dose. Do not use two doses at one time. What happens if I overdose? Seek emergency medical attention or call the Poison Help line at . Overdose symptoms may include nausea, vomiting, stomach pain, or diarrhea. What should I avoid while using docusate and senna? Ask a doctor or pharmacist before using any other laxative or other stool softener that may containingredients similar to docusate or senna. What are the possible side effects of docusate and senna? Get emergency medical help if you have signs of an allergic reaction: hives; difficulty breathing; swelling of your face, lips, tongue, or throat. Stop using docusate and senna and call your doctor at once if you have: rectal bleeding; severe stomach pain, nausea, vomiting; or no bowel movement. Common side effects may include: gas, bloating; diarrhea; or mild nausea. This is not a complete list of side effects and others may occur. Call your doctor for medical advice about side effects. You may report side effects to FDA at 8-552-FMC-7687. What other drugs will affect docusate and senna? Other drugs may affect docusate and senna, including prescription and iumx-fgf-vuyagte medi (more content not included)... [facility]01-10-2024 Note Date of Service August 22, 2023 Subjective The patient was sitting in bed upon examination. Patient denies any chest pain, shortness of breath, dizziness, lightheadedness, nausea or vomiting, or calf pain. No adverse overnight events. Pain has been controlled on medications. Patient states the block has worn off. He has been using Tylenol so far. Patient was initially using 1 L nasal oxygen however when he went to room air overnight he did see a drop in his O2 saturation. He has sleep apnea but does not have the CPAP machine here today.This morning when he was up on room air his O2 saturation was within normal limits. He denies any chest pain or shortness of breath. Pain is adequately controlled with the right shoulder. He does feel the sling is not fitting appropriately. Objective Vitals and Measurements T: 36.7 C (Oral) TMIN: 35.61 C TMAX: 36.9 C (Oral) HR: 90 RR: 16 BP: 121/68 SpO2: 95% HT: 177.8 cm WT: 100 kg BMI: 31.63 Intake and Output 7AM Yesterday to 7AM Today Intake and Output (Last 24 hours) Intake Administration Information 1000.00 Output Urine Voided 1750.00 Intra-Op EBL 200.00 Urine Count 2.00 Diaper Count 1.00 Total Summary Total Intake 1000.00 Total Output 1950.00 Fluid Balance -950.00 Physical Exam Vital signs stable, afebrile. On room air currently patient is at 95% O2 saturation. There was a drop overnight while sleeping. Dressing is clean dry and intact UltraSling overall fitting appropriately, he does feel the strap around the neck is not comfortable. Will have physical therapy adjust it when he is able to be up and standing. Sensation is intact to axillary, radial, median, and ulnar distribution Motor intact with patient able to make okay sign, cross fingers, and thumbs up Weight Dosing Weight: 100 kg (08/21/23) Dosing Weight: 100 kg (08/21/23) Medications Medications (27) Active Scheduled: (17) acetaminophen 500 mg Tablet 1,000 mg 2 tab(s), Oral, q6hr albuterol 0.083% Soln UD (2.5mg/3 mL) 2.5 mg 3 mL, Nebulized, QIDRT aspirin 81 mg Chewable 81 mg 1 tab(s), Oral, BID bisacodyl 5 mg EC tablet 10 mg 2 tab(s), Oral, Once budesonide 0.5 mg/2 mL Susp UD 0.5 mg 2 mL, Nebulized, BIDRT docusate sodium 100 mg Capsule 100 mg 1 cap(s), Oral, BID docusate-senna (Senokot S) 50 mg-8.6 mg Tablet 2 tab(s), Oral, BID famotidine 20 mg tablet 20 mg 1 tab(s), Oral, qDay gabapentin 400 mg capsule 400 mg 1 cap(s), Oral, qDay hydroxychloroquine 200 mg tablet 200 mg 1 tab(s), Oral, qDay latanoprost ophthalmic 0.005% Solution 1 drop(s), Ophthalmic, qHS leflunomide 20 mg Tablet 20 mg 1 tab(s), Oral, qDay magnesium hydroxide 8% Suspension 30 mL UD 30 mL, Oral, Daily meloxicam 7.5 mg tablet 7.5 mg 1 tab(s), Oral, BIDM montelukast 10 mg Tablet 10 mg 1 tab(s), Oral, qDay ondansetron 2 mg/ 1 mL 2 mL INJ 4 mg 2 mL, IV Push, q8h sulfamethoxazole-trimethoprim 800 mg-160 mg tablet 1 tab(s), Oral, BID Continuous: (0) PRN: (10) acetaminophen 325 mg Tablet 650 mg 2 tab(s), Oral, q4h albuterol - ipratropium 2.5 mg-0.5 mg/3 mL Inhal Reba UD 3 mL, Inhalation, q4hRT diphenhydramine 25 mg tablet 25 mg 1 tab(s), Oral, q6h diphenhyDRAMINE 50 mg/mL (1 mL) INJ 25 mg 0.5 mL, IV Push, q6h ketorolac 30 mg/mL (1 mL) vial 15 mg 0.5 mL, IV Push, q6h ondansetron 2 mg/ 1 mL 2 mL INJ 4 mg 2 mL, IV Push, q8h oxycodone 5 mg tablet (immediate release) 5 mg 1 tab(s), Oral, q4h oxycodone 5 mg tablet (immediate release) 10 mg 2 tab(s), Oral, q4h prochlorperazine 10 mg/2 mL vial 5 mg 1 mL, IV Push, q6h sodium biphosphate-sodium phosphate 19 gm-7 gm Enema 133 mL, Rectal, qDay Lab Results 08/22 06:02 WBC: 10.1 Hgb: 12.8 L Hct: 37.3 L Platelet: 258 Neutrophil %: 71.3 Glucose Level: 104 Sodium Level: 138 Potassium Level: 4.4 BUN: 15 Creatinine Lvl (s): 1.29 EKG No qualifying data available. Assessment/Plan 1. Status post right reverse total shoulder arthroplasty postop day #1 2. Continue pain medications: Tylenol, oxycodone. Patient will resume his flurbiprofen at home. 3. DVT prophylaxis: Take 81 mg aspirin twice daily with food for 2 weeks postoperatively for DVT prophylaxis. Patient denies past history of DVT or pulmonary embolism 4. Physical therapy: Continue with UltraSling at all times. Okay to take off sling for elbow range of motion and pendulum exercises 2-3 times daily. No range of motion of the operative shoulder. Giacomo outpatient physical therapy after the 2-week follow-up at [facility]. Would also appreciate physical therapy adjusting the UltraSling while he is standing in which it is easier to adjust. 5. H & H: 12.8/37.3, asymptomatic. Postoperative anemia from surgery without intraoperative complications. At this time there is no need for treatment. 6. Encouraged incentive spirometry 7. Postoperative hypoxia: Patient does have underlying sleep apnea in which she was not using his CPAP machine overnight. I do feel the drop in O2 saturation was secondary to his sleep apnea. Once hewas up this morning his O2 saturation was within normal limits at 95% on room air. Case was discussed with medicine and they will evaluate patient as well today. 8. Continue postoperative medical management per medicine 9. Postoperative constipation: Discussed with the patient to continue stool softener until first bowel movement. After first bowel movement patient can then take as needed. They were also instructed that if they are not able to have a bowel movement within 3 days they are to contact our office for change of medication. Patient voiced understanding. 10. Disposition: Plan will be for discharge home today as long as patient is medically stable, tolerates therapy, and pain is adequately controlled. Patient has outpatient physical therapy established. He will follow-up per postoperative instructions. [facility] As long as patient is cleared by medicine today plan will be for discharge home. Upon discharge she will contact her office with any concerns or questions. I did recommend at home he continue to use his CPAP machine as well as the incentive spirometer for 1 week postoperatively. I have reviewed the [place] Automated Rx Reporting System (OARRS) report for this patient for refill pattern and other prescriber involvement as part of the appropriate surveillance for the provision ofacute and chronic controlled medications. The report was requested and reviewed on the date of thisentry, and was considered in the prescribing process This dictation was created using voice recognition software. Phonetic and/or grammatical errors mayexist. Digitally Signed by BRANDON FINNEY PA-C on 08/22/2023 07:[address] [facility]01-09-2024 Note ORIGINAL EXAMINATION: TWO XRAY VIEWS OF THE RIGHT SHOULDER08/21/2023 10:30 am XR right shoulder two views portable COMPARISON: CT 07/27/2023 HISTORY: ORDERING SYSTEM PROVIDED HISTORY: Reason for Exam: Status Post Arthroplasty, Status Post Arthroplasty , check prosthesis alignment FINDINGS: The right glenohumeral joint has been replaced with a prosthesis that show satisfactory alignment. There are expected postoperative changes in the soft tissues. IMPRESSION: Expected postoperative appearance following right shoulder replacement surgery. Interpreted by: Landry Ugarte MD Preliminary Report By: Landry Ugarte MD Electronically signed By Landry Ugarte MD Dictated Date: 08/21/2023 10:59:57 AM Prelim Date: 08/21/2023 11:00:25 AM Sign Date: 08/21/2023 11:00:25 AM Ordering Provider: [facility]01-09-2024 Anesthesiology Consult note Patient: SHIVANI BONILLA Age: 73 years Sex: Male : 1950 Associated Diagnoses: None Author: KODY SALINAS APRN-PASTRY COOK APPRENTICE Preoperative Information Time of last food or liquid consumption: 08/20/2023 23:59:00 Anesthesia history Patient's history: negative. Family's history: negative. Review of Systems Ear/Nose/Mouth/Throat: Negative except as documented in history of present illness. Respiratory: Negative except as documented in history of present illness. Cardiovascular: Negative except as documented in history of present illness. Gastrointestinal: Negative except as documented in history of present illness. Genitourinary: Negative except as documented in history of present illness. Endocrine: Negative except as documented in history of present illness. Musculoskeletal: Negative except as documented in history of present illness. Integumentary: Negative except as documented in history of present illness. Neurologic: Negative except as documented in history of present illness. Health Status Allergies: Allergic Reactions (Selected) Severity Not Documented Brewers Yeast- Diarrhea. Coffee- No reactions were documented. Doxycycline- Hives., Allergies (3) ActiveReaction Brewers YeastDiarrhea CoffeeNone Documented doxycyclineHives Current medications: (Selected) Inpatient Medications Ordered Betadine 10% topical solution: 17.5 mL, mL/hr, Topical (INT), PREOP pharm Bicitra: 30 mL, Oral, PREOP pharm Bolus LR 1000 mL: 1,000 mL, IV Bolus, PREOP pharm CeleBREX: 400 mg, 2 cap(s), Oral, PREOP pharm Decadron: 10 mg, 1 mL, IV Push, AsDirected LR 1,000 mL: 20 mL/hr, Intravenous, Stop: 08/21/23 23:59:00 EST OxyCONTIN: 10 mg, 1 tab(s), Oral, PREOP pharm Pepcid IV: 20 mg, 2 mL, IV Push, PREOP pharm ceFAZolin: 2 gram(s), 200 mL/hr, IV Piggyback, PREOP pharm tranexamic acid 1 g / 100 mL 0.7% NaCl PMX: 1 gram(s), 100 mL, 300 mL/hr, IV Piggyback, AsDirected tranexamic acid 1 g / 100 mL 0.7% NaCl PMX: 1 gram(s), 100 mL, 300 mL/hr, IV Piggyback, AsDirected vancomycin: 1,500 mg, 30 mL, 166.67 mL/hr, IV Piggyback, PREOP pharm Documented Medications Documented Astelin: 1 spray(s), Nasal, BID Glucosamine Chondroitin MSM Complex: 1 tab(s), Oral, BID Multivitamin: 1 tab(s), Oral, Daily Nasonex 50 mcg/inh nasal spray: 2 spray(s), Nasal, Daily, PRN: for allergy symptoms Spiriva Respimat 1.25 mcg/inh inhalation aerosol: 2 puff(s), Inhalation, qDay Symbicort 160 mcg-4.5 mcg/inh Inhaler: 2 puff(s), Inhalation, Daily, 0 Refill(s) Tylenol 8 Hour 650 mg oral tablet, extended release: 1,300 mg, 2 tab(s), Oral, BID, PRN: as needed for pain chlorhexidine 0.12% oral rinse liquid: 0.018 gram(s), 15 mL, Oral, BID, 473 mL, 0 Refill(s) cranberry oral tablet: 1 tab(s), Oral, Daily, 0 Refill(s) flurbiprofen 100 mg oral tablet: 100 mg, 1 tab(s), Oral, qHS gabapentin 400 mg oral capsule: 400 mg, 1 cap(s), Oral, qDay, 30 cap(s), 0 Refill(s) hydroxychloroquine 200 mg oral tablet: 200 mg, 1 tab(s), Oral, qDay, 0 Refill(s) latanoprost 0.005% ophthalmic solution: 1 drop(s), Ophthalmic, qHS, 2.5 mL, 0 Refill(s) leflunomide 20 mg oral tablet: 20 mg, 1 tab(s), Oral, qDay, 30 tab(s), 0 Refill(s) montelukast 10 mg oral tablet: 10 mg, 1 tab(s), Oral, qDay, 0 Refill(s), Medications (12) Active Scheduled: (11) ceFAZolin 2 gram(s), IV Piggyback, PREOP pharm celecoxib 200 mg capsule 400 mg 2 cap(s), Oral, PREOP pharm citric acid-sodium citrate 334 mg-500 mg/5 mL (30 mL) Reba UD 30 mL, Oral, PREOP pharm dexamethasone 10 mg/mL (1mL) SDV 10 mg 1 mL, IV Push, AsDirected famotidine 20 mg/2 mL vial 20 mg 2 mL, IV Push, PREOP pharm Lactated Ringers Injection 1000 mL * Bolus * 1,000 mL, IV Bolus, PREOP pharm oxyCODONE 10 mg ER tablet 10 mg 1 tab(s), Oral, PREOP pharm povidone iodine topical 17.5 mL, Topical (INT), PREOP pharm tranexamic acid PMX 1 gram(s) 100 mL, IV Piggyback, AsDirected tranexamic acid PMX 1 gram(s) 100 mL, IV Piggyback, AsDirected vancomycin 1,500 mg 30 mL, IV Piggyback, PREOP pharm Continuous: (1) Lactated Ringers 1,000 mL 1,000 mL, Intravenous, 20 mL/hr PRN: (0) Problem list: Medical Asthma / SNOMED CT [id number] / Confirmed History of prostate cancer / SNOMED CT [id number] / Confirmed Kidney stones / SNOMED CT [id number] / Confirmed Rheumatoid arthritis / SNOMED CT [id number] / Confirmed Seasonal allergies / SNOMED CT [id number] / Confirmed, Active Problems (11) Asthma Bulging of cervical intervertebral disc Charcot's joint of foot GERD (gastroesophageal reflux disease) History of prostate cancer Kidney stones Neuropathy OA (osteoarthritis) Rheumatoid arthritis Seasonal allergies Sleep apnea Histories Past Medical History: Active Asthma ([id number]) Kidney stones ([id number]) Rheumatoid arthritis ([id number]) Family History: Hypertension Mother Sister Procedure history: Cardiac catheterization (86347772) in 2018 at 68 Years. Knee replacement ([id number]). Comments: 07/27/2023 14:31 Isabel Davenport RN bilateral Carpal tunnel ([id number]). Comments: 07/27/2023 14:31 Isabel Davenport RN bilateral Repair of inguinal hernia (53122035). Comments: 07/27/2023 14:15 Isabel Davenport RN Right Colonoscopy ([id number]). Repair of umbilical hernia (60972612). Revision of left total knee arthroplasty ([id number]). Comments: 07/27/2023 14:32 Isabel Davenport RN x2 Arthroscopy of knee (278282718). 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 Prostatectomy (255294872). Ligation and stripping of varicose vein of lower limb (0614153875). Foot (0368812740). Comments: 07/27/2023 14:33 Isabel Davenport RN right x2 C-RFA (cooled radiofrequency ablation) of nerve using fluoroscopic guidance ([id number]). Comments: 07/27/2023 14:34 EST - Isabel Newton RN cervical spine ESWL - Extracorporeal shockwave lithotripsy for renal calculus ([id number]). Social History Social & Psychosocial Habits Alcohol 08/21/2023 Use: Never Substance Abuse 08/21/2023 Use: Never Tobacco 08/21/2023 Tobacco Use: Never (less than 100 in l Home/Environment 08/21/2023 Living situation: Home/Independent Domestic Concerns None Primary Smoked Meat Preparer: Self Lives In 1st floor bathroom, 1st floor bedroom, Multilevel home Current Home Treatments CPAP Special Services and Community Resources None Guardian(s) Information: Julissa Marital Status of Patient if Patient Independent Adult: Nutrition/Health 08/21/2023 Type of diet: Regular Appetite Good Eating Difficulties None . Physical Examination No qualifying data available General: Alert and oriented. Airway: Normal neck range of motion. Mallampati classification: II (soft palate, fauces, uvula visible). Head: Normocephalic. Dentition Evaluation: Intact, Own teeth. Neck: Full range of motion. Respiratory: Lungs are clear to auscultation. Cardiovascular: Normal rate. Heart Sounds: Normal. Gastrointestinal: Soft. Musculoskeletal Normal range of motion. Integumentary: Intact, Warm, Dry. Neurologic: Alert, Oriented. Review / Management Results review: No qualifying data available , Lab results 08/21/2023 6:51 EST SN - Preop - CTm Pt in SDS Room 08/21/2023 6:24 08/21/2023 6:49 EST Designated Person #1 We May Share PHI Julissa Bonilla [phone] Designated Person #1 Relationship Spouse Designated Person #2 We May Share PHI Catherine Farmer [phone] Designated Person #2 Relationship Daughter Privacy Restrictions Requested None Status N/A Sensory Deficits None Diagnosed With Sleep Apnea Yes Advanced Directives Yes Advance Directive Type [place] Declaration (Living Will) Advance Directive Location Unable to obtain copy Infectious Disease Symptoms Patient states no symptoms Infectious Disease Recent Exposure No Alcohol and Drug Use No Employee of Institutional Living No Health Care Employee No History of Exposure to TB No History of Positive Chest X-Ray for TB No History of Positive TB Skin Test No Homeless No Known Immunosuppression No Recent Immigrant No Resident of Institutional Living No Bloody Sputum No Fatigue No Fever No Loss of Appetite No Night Sweats No Persistent Cough > 3 Weeks No Weight Loss No Pre-Op Patient Education NPO after midnight, No makeup, No jewelry, Responsible Libertarian, Aware of surgery location, Pre-op education done, 2 bottles CHG wash with instructions given, Instructed to takeordered medications, Instructed to bring home medications, Total Joint Replacement/Colorectal Book Given SN - Preprocedure Comments Spoke with patient, Verbalizes/Nonverbally indicates understanding, Other: Inhalers Anesthesia Evaluation Date/Time 07/27/2023 14:20 Anesthesia Evaluation Performed By ANDREW BURCH Anesthesia Evaluation Result Approved Barriers to Learning None evident Teaching Method Explanation, Printed materials Preferred Spoken Language Jordanian Preferred Written Language Jordanian Teaching Evaluation No further teaching needed Safety Brochure Information Reviewed Yes [facility] No Information Given by Patient Patient's Current Physicians Patient's Current Physicians Discharge To, Anticipated Home independently Prev Test Positive/Diagnosis w/COVID-19 No Current Quarantine/Isolated any Illness No Any Contact with Sick Animals/Birds No Traveled Anywhere in Last 30 Days No Lost Weight Unintentionally Recently No Eat Poorly Due to Decreased Appetite No Total MST Score 0 N/A Personal Devices, Patient Valuables Glasses Anesthesia/Transfusions Prior anesthesia Admission Note-Nursing Same Day Patient History . Assessment and Plan [place] Society of Anesthesiologists (ASA) physical status classification: Class II. Anesthetic Preoperative Plan Premedication: intravenous. Anesthetic technique: General, Regional. Induction: intravenously. Maintenance airway: Oral endotracheal tube. Regional: Interscalene Block. Postoperative pain management: Per surgeon. Risks discussed: nausea, vomiting, headache, sore throat, dental injury, hypotension, allergic reaction, serious complications. Informed consent: signed by patient. Digitally Signed by KODY SALINAS on 08/21/2023 06:[address] [facility]01-03-2024 Instructions* Patient Instructions* Kam Saldaña DPM - 08/15/2023 11:37 AM EST Continue abx ointment Continue with [place] [facility] History of Present illness Narrative* Mckinley Guzman DPM - 08/15/2023 11:30 AM EST Chief Complaint: right foot wound in the setting of Charcot HPI: This 73 year old male with PMH indicated below significant for follow up of his wound on his right foot. Has been taking Keflex as prescribed. Has been applying abx ointment and bandage. Has been in the [place] boot. States has been to [facility] for adjustment to the AFO. Has not received new [place] boot yet. Denies constitional symptoms He denies any other new pedal complaints today. Previous history: December 2016- medial column arthrodesis by Dr. 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 cephALEXin (KEFLEX) 500 mg capsule Take 1 capsule by mouth three times a day for 10 days. gabapentin (NEURONTIN) 400 mg capsule Take 1 capsule by mouth daily at bedtime for 90 days. DULoxetine (CYMBALTA) 30 mg capsule Take 30 mg by mouth once daily. hydrOXYchloroQUINE (PLAQUENIL) 200 mg tablet linezolid (ZYVOX) 600 mg tablet budesonide/formoterol fumarate (SYMBICORT INHALATION) Inhale as instructed. tiotropium bromide (SPIRIVA RESPIMAT INHALATION) Inhale as instructed. leflunomide (ARAVA) 20 mg tablet Take 20 mg by mouth once daily. doxycycline hyclate (VIBRAMYCIN) 100 mg capsule Take 100 mg by mouth twice daily. Risedronate 150 mg tablet Take 150 mg by mouth once every month. In AM with cup of water on empty stomach. Nothing else by mouth and stay upright for 30 min. methotrexate sodium 25 mg/mL soln once each week. montelukast (SINGULAIR) 10 mg tablet once daily. folic acid 1 mg tablet once daily. amoxicillin (POLYMOX, AMOXIL) 500 mg capsule once daily. (Patient not taking: Reported on 03/31/2021 ) predniSONE (DELTASONE) 5 mg tablet twice daily. (Patient not taking: Reported on 03/31/2021 ) BD TUBERCULIN SYRINGE 1 mL 25 x 5/8 syrg Multivitamin capsule Take 1 capsule by mouth once daily. GLUCOSAMINE/CHONDROITIN SULF A (GLUCOSAMINE-CHONDROITIN ORAL) Take by mouth. mometasone (NASONEX) 50 mcg/actuation nasal spray Use 2 Sprays in the nose once daily. No current facility-administered medications for this visit. : ALLERGIES Allergen Reactions Gluten Shortness of Breath Peanuts Shortness of Breath Yeast, Dried Shortness of Breath : PAST SURGICAL HISTORY Procedure Laterality Date ARTHRP KNE CONDYLE&PLATU MEDIAL&LAT COMPARTMENTS Left 08/13/2004 ARTHRP KNE CONDYLE&PLATU MEDIAL&LAT COMPARTMENTS Right 08/13/2014 CARPAL TUNNEL 82,83 x2 each wrist COLONOSCOPY 08/13/2009 FOOT SURGERY HX Right 07/2020 FOOT SURGERY HX Right 11/29/2020 INGUINAL HERNIA REPAIR HX Right 09/13/2014 LX REPAIR RECURRENT VENTRAL HERNIA 11/08/2015 Laparoscopic repair of recurrent ventral hernia PAST SURGICAL HISTORY OF 01/11/1993 kidney stone removal PAST SURGICAL HISTORY OF 08/13/1997 cardiac catherization PAST SURGICAL HISTORY OF Left 08/13/2005 knee revision PAST SURGICAL HISTORY OF 11/24/2022 Kidney stone removal REMOVAL OF PROSTATE 02/10/2013 TONSILLECTOMY HX 08/13/1977 FAMILY HISTORY Problem Relation Age of Onset other (negative [Other]) Unknown : Social History Tobacco Use Smoking status: Never Smokeless tobacco: Never Substance Use Topics Alcohol use: No Drug use: No REVIEW OF SYSTEMS see tech note MSK: + as noted in HPI. Physical Exam: Patient is alert and oriented x 3 in NAD. Patient is a 73 year old male who appears well developed,well nourished and with good attention to hygiene and body habitus. There were no vitals taken for this visit. Vascular: DP and PT pulses are palpable. CFT less than 3 seconds to all digits. Skin temperature iswarm to warm from proximal to distal. No increase in warmth to the right foot. Hair growth is absent. No varicosities noted. Neuro: Light touch intact. Protective sensation diminished at all pedal sites via Nicholson Dany 5.07 monofilament. Derm: Skin texture and turgor within normal limits. Webspaces 1-4 clean, dry, intact b/l. There is a partial thickness ulceration noted to the plantar 1st MTP right foot measuring approximately 0.5 cm x 0.3 cm x 0.1cm. Wound base appears healthy and granular. There is small amount of serous drainage noted. No surrounding erythema, no purulence, no evidence of infection. No hyperkeratotic tissue medial midfoot right foot. Musculoskeletal/Orthopaedic: General foot morphology: decreased medial longitudinal arch with plantar prominence at midfoot. 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 +5/5 muscle strength Dorsiflexion, Plantarflexion, Inversion, Eversion bilateral ROM of the 1st MTPJ is decreased without pain or crepitus. ROM of the MTJ/STJ is decreasedwithout pain or crepitus. Ankle joint ROM is decreased. . No erythema or edema about the plantar midfoot right. Radiographs: three views of the right foot were obtained and evaluated today. Impression: No acute fracture, dislocation or increase in deformity when compared to prior study. Periosteal reaction noted diffusely to midfoot with collapse of midfoot noted on lateral view consistent with charcot arthropathy. The first MTP joint appears dislocated with lateral deviation of distal phalanx of hallux. Distal phalanges of second and third toes are absent. 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 Plan: - A focused history and physical examination were preformed. The patient was educated on clinical and radiographic findings, diagnosis and treatment plans. Patient state that he understands all that has been explained and all questions were answered to his apparent satisfaction. - Etiology and treatment options of Charcot arthropathy and neuropathy were discussed with the patient. - Continue in [place] boot - Dispensed refill rx for keflex - Dress wound daily with antibiotic ointment and a band aid. Monitor for signs of infection. - Call with any concerns - Follow up 3 weeks Kam Saldaña DPM PGY-3 I personally saw and evaluated the patient. I reviewed the resident's note. I agree with the resident's assessment and plan unless otherwise noted. Mckinley Guzman DPM, FACFAS documented in this [facility] [facility] History of Present illness Narrative* Ganga Acosta, DO - 08/07/2023 1:00 PM EST Images from the original note were not included. [facility] [address] [facility] [address] Dept: [phone] Dept Chief Complaint: Shivani Bonilla is an 73 y.o. male here for an annual wellness visit. Assessment/Plan : Problem List Items Addressed This Visit Respiratory Allergic asthma Digestive Personal history of colonic polyps Other Rheumatoid arthritis involving wrist with positive rheumatoid factor (CMS/HCC) (HCC) History of prostate cancer Other Visit Diagnoses Encounter for subsequent annual wellness visit (AWV) in Medicare patient - Primary Primary osteoarthritis of right shoulder Pre-operative clearance I have reviewed and reconciled the medication list with the patient today. Current Outpatient Medications Medication Sig Dispense Refill albuterol 108 (90 Base) MCG/ACT inhaler azelastine (Astelin) 0.1 % nasal spray Administer 1 spray into affected nostril(s) in the morning and 1 spray in the evening. CRANBERRY PO Take by mouth. flurbiprofen (Ansaid) 100 MG tablet Take 1 tablet by mouth daily. gabapentin (Neurontin) 400 MG capsule Take 400 mg by mouth Nightly. leflunomide (Arava) 20 MG tablet montelukast (Singulair) 10 MG tablet Multiple Vitamin tablet Take 1 tablet by mouth daily. Spiriva Respimat 1.25 MCG/ACT inhaler Symbicort 160-4.5 MCG/ACT inhaler No current facility-administered medications for this visit. Also reviewed during this visit: Tobacco Meds Med Hx Surg Hx Fam Hx The following health maintenance schedule was reviewed with the patient and provided in printed form in the after visit summary: Health Maintenance Topic Date Due Lipid Panel Never done Medicare Advantage Annual Wellness Visit (AWV) Never done Bone Density Scan Never done Depression Screening Never done Hepatitis C Screening Never done DTaP/Tdap/Td Vaccines (1 - Tdap) Never done Zoster Vaccines (1 of 2) Never done RSV Immunization aged 60 or older (1 - 1-dose 60+ series) Never done COVID-19 Vaccine ( - 2022-24 season) 2023 Diabetes Screening 01/08/2024 Colorectal Cancer Screening 02/16/2030 Influenza Vaccine Completed Pneumococcal Vaccine: 65+ Years Completed RSV Immunization under 20 Months Aged Out HIB Vaccines Aged Out Hepatitis B Vaccines Aged Out IPV Vaccines Aged Out Hepatitis A Vaccines Aged Out Meningococcal Vaccine Aged Out Rotavirus Vaccines Aged Out HPV Vaccines Aged Out List of current healthcare providers: Patient Care Team: Ganga Acosta DO as PCP - General No orders of the defined types were placed in this encounter. Subjective : Annual wellness visit for patient with severe rheumatoid arthritis, stable asthma and also needs preop clearance for upcoming right shoulder reverse arthroplasty per Dr. Durand at [facility] on August 21 Review of Systems past medical, past surgical, family and social history reviewed and chart updated. He feels well going in the surgery. No recent earache sore throat cough purulent phlegm or fever. No chest pain or wheezing. Albuterol has been helpful. Sees pulmonology routinely. No heartburn or dysphagia. No steroid use lately. He is due for colonoscopy he is to call for referral in a few months. Bowels are regular. No melena or blood. PSA due in August. Arthralgias have been well-controlled with Arava and gabapentin Physical Exam He appears well. Normal eardrums and oropharynx. Clear PND. No adenopathy neck masses JVD or carotid bruits. Heart is regular gallops or murmurs. Lungs are diminished but clear of rales wheezes or egophony. Abdomen slightly obese without pain hepatosplenomegaly masses or bruits. No ascites. No appreciable leg edema although he has AFOs on bilaterally. Right shoulder pain with palpation abduction flexion and external rotation. Reviewed recent CT of the shoulder, and chest x-ray. Health Risk Assessment: General: General In general, how would you say your health is?: (!) Fair In the past 7 days, have you experienced any of the following: New or Increased Pain, New or Increased Fatigue, Loneliness, Social Isolation, Stress or Anger?: (!) Yes Select all that apply: (!) New or Increased Pain (foot pain) Do you get the social and emotional suppport you need?: Yes Interventions: Denies Health Habits/Nutrition: Health Habits / Nutrition On average, how many days per week do you engage in moderate to strenous exercise (like a brisk walk)?: (!) 0 days On average, how man minutes do you engage in exercise at this level?: (!) 0 min Have you lost any weight without trying in the past 3 months? : No Have you seen the dentist within the past year?: Yes Interventions: Will get dental exam Hearing/ Vision: Hearing / Vision Do you or your family notice any trouble with your hearing that hasn't been managed with hearing aids?: No Do you have difficulty driving, watching TV, or doing any of your daily activities because of your eyesight?: No Have you had an eye exam within the past year?: Yes No results found. Safety: Safety Do you have a working smoke detector?: Yes Do you have any tripping hazards - loose or unsecured carpets or rugs?: No Do you have any tripping hazards - clutter in doorways, halls, or stairs?: No Do you have either shower bars, grab bars, non-slip mats or non-slip surfaces in your shower or bathtub? : Yes Do all your stairways have a railing or banister? : Yes Do you fasten your seatbelt when you are in a car?: Yes ADL: ADL In the past 7 days, did you need help from others to perform any of the following everyday activities: Eating, dressing, grooming,bathing, toileting, or walking / balance? : No In the past 7 days, did you need help from others to take care of any of the following: laundry, housekeeping, banking / finances,shopping, telephone use, food preparation, transportation, or taking medications? : No Living Will: Living Will Do you have a living will?: Yes Cognitive: Cognitive Screening: Mini-Cog Clock Drawing Test (CDT): 2 Words Recalled: 3 (used words apple table thea) Total Score: 5 Total Score Interpretation: Normal Mini-Cog Fall Risk: Fall Risk One or more falls in the last year:: No Advised to use a cane or walker to get around safely:: Yes (uses cane somtimes) Feels unsteady when walking:: No Steadies self on furniture while walking at home:: No Worried about falling:: No Depression Screening: Over the past 2 weeks, how often have you been bothered by any of the following problems? Little interest or pleasure in doing things: Not at all Feeling down, depressed, or hopeless: Not at all Patient Health Questionnaire-2 Score: 0 Interventions: Patient declines any further evaluation / treatment for this issue Tobacco Use: Social History Tobacco Use Smoking Status Never Smokeless Tobacco Never Alcohol Use: Objective : BP 118/70 Pulse 68 Temp 36.3 C (97.3 F) (Temporal) Ht 5' 10 (1.778 m) Wt 225 lb (102 kg) SpO2 96% BMI 32.28 kg/m No results found. 1. Rheumatoid arthritis involving wrist with positive rheumatoid factor, unspecified laterality (HCC) Stable, continue Arava 2. History of prostate cancer Stable, follow-up with urology 3. Personal history of colonic polyps Noted, call for referral in October 4. Primary osteoarthritis of right shoulder Stable from surgery 5. Encounter for subsequent annual wellness visit (AWV) in Medicare patient Stable, continue all present meds 6. Pre-operative clearance Stable for surgery 7. Extrinsic asthma, unspecified asthma severity, unspecified whether complicated, unspecified whether persistent Stable, continue Symbicort, Spiriva, Singulair and albuterol as needed documented in this [facility]12-26-2023 Instructions* Patient Instructions* Ganga Acosta DO - 08/07/2023 1:00 PM EST Personalized Preventative Plan for Shivani Bonilla - 08/07/2023 Medicare offers a range of preventative health benefits. Some of the tests and screenings are paid in full while others may be subject to a deductible, co- insurance, and / or copay. Some of these benefits include a comprehensive review of your medical history including lifestyle, illnesses that mayrun in your family, and various assessments and screenings as appropriate. After reviewing your medical record and screening and assessments performed today, your provider may have ordered immunizations, labs, imaging, and / or referrals for you. A list of these orders (if applicable) as well as your Preventative Care list are included within your After Visit Summary for your review. Other Preventative Recommendations: A preventive eye exam by an eyeglass lens cutter is recommended every 1-2 years to screen for glaucoma, cataracts, macular degeneration, and other eye disorders. A preventive dental visit is recommended every 6 months. Try to get at least 150 minutes of exercise per week or 10,000 steps per day on a pedometer. You need 1200-1500mg of calcium and 3359-3090 international units of vitamin D per day. It is possible to meet your calcium requirement with diet alone, but a vitamin D supplement is usually necessary to meet this goal. When exposed to the sun, use a sunscreen that protects against both UVA and UVB radiation with an SPF of 30 or greater. Reapply every 2-3 hours or after sweating, drying off with a towel, or swimming. Always wear a seat belt when traveling in a car. Always wear a helmet when riding a bicycle or a motorcycle documented in this [facility]12-15-2023 Note ORIGINAL EXAMINATION: CT OF THE RIGHT SHOULDER WITHOUT FFTFPHGN51/15/2023 3:16 pm TECHNIQUE: CT of the right shoulder was performed without the administration of intravenous contrast. Multiplanar reformatted images are provided for review. Automated exposure control, iterative reconstruction, and/or weight based adjustment of the mA/kV was utilized to reduce the radiation dose to as low as reasonably achievable. COMPARISON: None. HISTORY: ORDERING SYSTEM PROVIDED HISTORY: Reason for Exam: PRIMARY OSTEOARTHRITIS RIGHT SHOULDER. Pre-surgical tournier protocol FINDINGS: No acute fracture, periosteal reaction, osseous erosions, or aggressive osseous lesions identified. Severe glenohumeral degenerative changes consisting of joint space narrowing, subchondral sclerosis, and marginal osteophytes. Subchondral cysts are noted in the glenoid. Intracapsular loose body seen inferior to the glenoid measures approximately 0.9 cm (series 301, image 32). Additional small calcified intra-articular body suspected. Small glenohumeral joint effusion. 3 mm central bone loss noted in the glenoid. Mild degenerative changes are seen in the acromioclavicular joint with marginal osteophytes. Acromioclavicular capsular calcifications are noted. Asymmetric atrophy seen of the supraspinatus and superior segment of the subscapularis muscle. The suboptimally visualized structures within the chest demonstrate no acute abnormality. IMPRESSION: No aggressive osseous lesions identified. Severe glenohumeral joint arthrosis with loose intra-articular bodies. Central bone loss noted in the glenoid.. Significant atrophy of the supraspinatus and superior portion of the subscapularis muscles, possibly indicating chronic rotator cuff disease/tears. Other incidental findings as described above. I have personally reviewed the images of this examination and agree with the resident's findings and interpretation. Interpreted by: Kenneth Rios MD Preliminary Report By: Conchita Conde Electronically signed By Kenneth Rios MD Dictated Date: 07/27/2023 3:45:32 PM Prelim Date: 07/27/2023 4:11:06 PM Sign Date: 07/27/2023 4:11:06 PM Ordering Provider: [facility]12-15-2023 Note ORIGINAL EXAMINATION: TWO XRAY VIEWS OF THE CHEST 07/27/2023 2:49 pm COMPARISON: 04/06/2015 HISTORY: ORDERING SYSTEM PROVIDED HISTORY: Reason for Exam: asthma FINDINGS: The cardiomediastinal silhouette is normal. There is linear airspace disease at the bases favoring atelectasis or scarring. No pleural effusion, vascular congestion, or pneumothorax. Multilevel degenerative changes are identified in the spine. IMPRESSION: Linear bibasilar airspace disease favors atelectasis or scarring. Infiltrates are within the differential. Interpreted by: Paige Amador MD Preliminary Report By: Paige Amador MD Electronically signed By Paige Amador MD Dictated Date: 07/27/2023 10:23:00 PM Prelim Date: 07/27/2023 10:23:55 PM Sign Date: 07/27/2023 10:23:55 PM Ordering Provider: [facility]10-06-2023 Miscellaneous Notes* Telephone Encounter - Mckinley Guzman DPM - 05/18/2023 3:55 PM EDT Done Thanks Mckinley Guzman DPM, FACFAS * Telephone Encounter - Julissa Merida - 05/18/2023 8:14 AM EDT Please advise * Telephone Encounter - Julissa Merida - 05/01/2023 2:[address] is [address]. Guzman's first name ? * Telephone Encounter - Julissa Merida - 05/01/2023 11:12 AM EDT Do you want to accept? documented in this encounter[facility] History of Present illness Narrative* Ganga Doe Karla, DO - 05/07/2023 1:00 PM EDT Images from the original note were not included. [facility] [address] [place] [address] [address] [facility] [id number] Visit type: Established Patient Reason for Visit: surgical clearance Assessment / Plan: Shivani was seen today for surgical clearance. Diagnoses and all orders for this visit: Dentalgia (Primary) Rheumatoid arthritis involving wrist with positive rheumatoid factor, unspecified laterality (HCC) History of prostate cancer Extrinsic asthma, unspecified asthma severity, unspecified whether complicated, unspecified whetherpersistent Boil of buttock Pre-operative clearance Colon cancer screening Comments: Of note is due. patient to reach out to surgeon to schedule colonoscopy this year Other orders - Flu vaccine, high dose seasonal, preservative free - mupirocin (Bactroban) 2 % ointment; Apply topically three times daily for 10 days. - Pneumococcal conjugate vaccine 20-valent IM (PREVNAR 20) 35 minutes reviewing chart, patient interview, updating records. Physical exam and discussion of diagnosis and treatment options. She will reach out for colonoscopy referral this fall. Subjective: Patient ID: Shivani Bonilla is a 73 y.o. male. HPI patient history of asthma, rheumatoid arthritis. Remote prostate cancer presents for preop clearance for obtaining a dental implant in mid June. Overall feeling well. Recent laboratory per rheumatology was stable. His asthma has been well treated by Dr. Fonseca. Review of Systems no recent earache sore throat or cough. No chest pain or palpitations. Albuterol is effective taking nightly. No dyspnea on exertion. No PND orthopnea or change in chronic ankle edema. Wears a brace on the right lower extremity. His rheumatoid has been well controlled on Arava. Only new complaint is intermittent pimples on his buttocks. Of note also takes gabapentin for cervicalneuralgia. History of renal stones but none since September. He done well with his multiple surgeries and anesthesia. Last knee replacement 7 years ago. No antibiotic preoperative coverage necessary per patient. No Known Allergies Current Outpatient Medications on File Prior to Visit Medication Sig Dispense Refill albuterol 108 (90 Base) MCG/ACT inhaler azelastine (Astelin) 0.1 % nasal spray Administer 1 spray into affected nostril(s) in the morning and 1 spray in the evening. CRANBERRY PO Take by mouth. flurbiprofen (Ansaid) 100 MG tablet Take 1 tablet by mouth daily. gabapentin (Neurontin) 400 MG capsule Take 400 mg by mouth Nightly. leflunomide (Arava) 20 MG tablet montelukast (Singulair) 10 MG tablet Multiple Vitamin tablet Take 1 tablet by mouth daily. Spiriva Respimat 1.25 MCG/ACT inhaler Symbicort 160-4.5 MCG/ACT inhaler [DISCONTINUED] gabapentin (Neurontin) 400 MG capsule Take 1 capsule by mouth daily at bedtime. No current facility-administered medications on file prior to visit. Patient Active Problem List Diagnosis Personal history of colonic polyps BPH (benign prostatic hyperplasia) History of gastric ulcer Allergic asthma Allergic rhinitis Rheumatoid arthritis involving wrist with positive rheumatoid factor (CMS/HCC) (HCC) Lumbar spine scoliosis DDD (degenerative disc disease), cervical Osteoarthritis of both knees History of renal stone Osteopenia History of systemic steroid therapy Degenerative arthritis of thoracic spine History of prostate cancer Scaphoid fracture Hypercholesterolemia with hypertriglyceridemia Wrist fracture, closed, right, with routine healing, subsequent encounter Reflux esophagitis Social History Tobacco Use Smoking status: Never Smokeless tobacco: Never Substance Use Topics Alcohol use: No Alcohol/week: 0.0 standard drinks of alcohol Past Surgical History: Procedure Laterality Date CARDIAC CATHETERIZATION 07/2018 neg per Sadaf CARPAL TUNNEL RELEASE Bilateral x2 COLONOSCOPY 07/31/2016 Sylvia- small polyps - ?rech COLONOSCOPY W/ POLYPECTOMY 02/2020 Dr. Eugene- due 2022 FOOT SURGERY Right 07/2020 HERNIA REPAIR Right 2014 [facility] INCISIONAL HERNIA REPAIR Right 2016 [facility]- mesh replacement LITHOTRIPSY 1993 PROSTATECTOMY 2013 robotic REVISION TOTAL KNEE ARTHROPLASTY (HISTORICAL) Left 07/2016 Dr. Durand RHINOPLASTY 2004 TOE AMPUTATION Right 11/2019 rt 2nd toe per Dr. Rubi TONSILLECTOMY (HISTORICAL) TOTAL KNEE ARTHROPLASTY Right 2014 [facility] TOTAL KNEE ARTHROPLASTY Left 2004 [facility] UPPER GASTROINTESTINAL ENDOSCOPY 07/31/2016 sylvia Family History Problem Relation Name Age of Onset Heart failure Mother Amita at fib, age 94, copd COPD Father Ariel age 75, nonsmoker Hypertension Sister Claudia alive age 72 No Known Problems Maternal Grandmother Bone cancer Maternal Grandfather age 60s No Known Problems Paternal Grandmother No Known Problems Paternal Grandfather Objective: BP 105/64 Pulse 77 Temp 36.7 C (98 F) (Temporal) Ht 5' 10 (1.778 m) Wt 220 lb 9.6 oz (100 kg) SpO2 93% BMI 31.65 kg/m Physical Exam pleasant cooperative. Alert and oriented. Well-groomed has good insight and eye contact. Nonicteric. Moist mucous membranes. Missing the left central incisor. No adenopathy. No neck masses JVD carotid bruits. Heart is regular without gallops or murmurs. Lungs are diminished but clear of rales wheezes or egophony. Abdomen soft nontender without pain hepatosplenomegaly masses bruits or ascites. No adenopathy. Femoral pulses are fair. Lower extremities are covered with stockings and a brace. Has a less than 1 cm pustule of the left buttock. A few smaller healed lesions around the area. No major abscess or induration or erythema. documented in this [facility]09-25-2023 Instructions* Patient Instructions* Ganga Acosta DO - 05/07/2023 1:[address] Trevizo this fall to schedule colonoscopy that was recommended this year. documented in this [facility]07-20-2023 Instructions* Patient Instructions* Kam Saldaña DPM - 03/01/2023 10:47 AM EDT Continue Neurontin Continue CBD lotion Get shower mat or shower shoes if need be Call Concepcion with any concerns documented in this [facility] History of Present illness Narrative* Mckinley Guzman DPM - 03/01/2023 10:36 AM EDT Chief Complaint: right foot pain in the setting of Charcot HPI: This 73 year old male with PMH indicated below significant for Charcot foot presents for follow-up of right foot pain. Patient states he has been using his AFO without any problems. He has been taking gabapentin as prescribed which alleviates his neuropathic pain at night. Denies new ulcerations. Patient denies constitutional symptoms. December 2016- medial column arthrodesis by Dr. 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 gabapentin (NEURONTIN) 100 mg capsule Take 3 capsules by mouth daily at bedtime. DULoxetine (CYMBALTA) 30 mg capsule Take 30 mg by mouth once daily. hydrOXYchloroQUINE (PLAQUENIL) 200 mg tablet linezolid (ZYVOX) 600 mg tablet budesonide/formoterol fumarate (SYMBICORT INHALATION) Inhale as instructed. tiotropium bromide (SPIRIVA RESPIMAT INHALATION) Inhale as instructed. leflunomide (ARAVA) 20 mg tablet Take 20 mg by mouth once daily. doxycycline hyclate (VIBRAMYCIN) 100 mg capsule Take 100 mg by mouth twice daily. Risedronate 150 mg tablet Take 150 mg by mouth once every month. In AM with cup of water on empty stomach. Nothing else by mouth and stay upright for 30 min. BD TUBERCULIN SYRINGE 1 mL 25 x 5/8 syrg Multivitamin capsule Take 1 capsule by mouth once daily. mometasone (NASONEX) 50 mcg/actuation nasal spray Use 2 Sprays in the nose once daily. methotrexate sodium 25 mg/mL soln once each week. montelukast (SINGULAIR) 10 mg tablet once daily. folic acid 1 mg tablet once daily. amoxicillin (POLYMOX, AMOXIL) 500 mg capsule once daily. (Patient not taking: Reported on 03/31/2021 ) predniSONE (DELTASONE) 5 mg tablet twice daily. (Patient not taking: Reported on 03/31/2021 ) GLUCOSAMINE/CHONDROITIN SULF A (GLUCOSAMINE-CHONDROITIN ORAL) Take by mouth. No current facility-administered medications for this visit. : ALLERGIES Allergen Reactions Gluten Shortness of Breath Peanuts Shortness of Breath Yeast, Dried Shortness of Breath : PAST SURGICAL HISTORY Procedure Laterality Date ARTHRP KNE CONDYLE&PLATU MEDIAL&LAT COMPARTMENTS Left 08/13/2004 ARTHRP KNE CONDYLE&PLATU MEDIAL&LAT COMPARTMENTS Right 08/13/2014 CARPAL TUNNEL 82,83 x2 each wrist COLONOSCOPY 08/13/2009 FOOT SURGERY HX Right 07/2020 FOOT SURGERY HX Right 11/29/2020 INGUINAL HERNIA REPAIR HX Right 09/13/2014 LX REPAIR RECURRENT VENTRAL HERNIA 11/08/2015 Laparoscopic repair of recurrent ventral hernia PAST SURGICAL HISTORY OF 01/11/1993 kidney stone removal PAST SURGICAL HISTORY OF 08/13/1997 cardiac catherization PAST SURGICAL HISTORY OF Left 08/13/2005 knee revision PAST SURGICAL HISTORY OF 11/24/2022 Kidney stone removal REMOVAL OF PROSTATE 02/10/2013 TONSILLECTOMY HX 08/13/1977 FAMILY HISTORY Problem Relation Age of Onset other (negative [Other]) Unknown : Social History Tobacco Use Smoking status: Never Smokeless tobacco: Never Substance Use Topics Alcohol use: No Drug use: No REVIEW OF SYSTEMS see tech note MSK: + as noted in HPI. Physical Exam: Patient is alert and oriented x 3 in NAD. Patient is a 73 year old male who appears well developed,well nourished and with good attention to hygiene and body habitus. Temp 36.8 C (98.2 F) Ht 177.8 cm (5' 10) Wt 102.1 kg (225 lb) BMI 32.28 kg/m Vascular: DP and PT pulses are palpable. CFT less than 3 seconds to all digits. Skin temperature iswarm to warm from proximal to distal. No increase in warmth to the right foot. Hair growth is absent. No varicosities noted. Neuro: Light touch intact. Protective sensation diminished at all pedal sites via Nicholson Dany 5.07 monofilament. Derm: Skin texture and turgor within normal limits. Webspaces 1-4 clean, dry, intact b/l. No rashes, subcutaneous nodules, or open lesions noted. No hyperkeratotic tissue medial midfoot right foot. Musculoskeletal/Orthopaedic: General foot morphology: decreased medial longitudinal arch with plantar prominence at midfoot. 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 +5/5 muscle strength Dorsiflexion, Plantarflexion, Inversion, Eversion bilateral ROM of the 1st MTPJ is decreased without pain or crepitus. ROM of the MTJ/STJ is decreasedwithout pain or crepitus. Ankle joint ROM is decreased. Mild tenderness to palpation of the base of the first metatarsal and first tarsometatarsal joint ofthe right foot. No erythema or edema about the plantar midfoot right. 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 Plan: - A focused history and physical examination were preformed. The patient was educated on clinical and radiographic findings, diagnosis and treatment plans. Patient state that he understands all that has been explained and all questions were answered to his apparent satisfaction. - Etiology and treatment options of Charcot arthropathy and neuropathy were discussed with the patient. - Continue CBD lotion for topical pain relief for neuropathy - Continue use of AFO - Continue daily foot examinations for any tissue breakdown. - Continue gabapentin. - Dispensed Concepcion's number for any concerns - Follow up 6 months. Kam Saldaña DPM PGY-3 I personally saw and evaluated the patient. I reviewed the resident's note. I agree with the resident's assessment and plan unless otherwise noted. Mckinley Guzman DPM, FACFAS * Jean Hardy Tech - 03/01/2023 10:21 AM EDT REVIEW OF SYSTEMS: GENERAL: Well developed, well nourished. No acute distress PAIN: Negative for pain, history of chronic pain or current treatment for chronic pain conditions CARDIOVASCULAR: Negative for chest pain, leg swelling and palpations. MSK: Negative for joint swelling SKIN: Negative for lesions, rash, itching, metal sensitivity NEURO: Numbness/tingling of extremties ENDOCRINE: Negative for diabetic associated symptoms HEMATOLOGY: Negative for excessive bleeding, clots, bleeding disorders. documented in this encounterSt[facility] [facility] Mayorga [facility] October 31, 2022 12:19pm Note Date/Time October 31, 2022 12: 19pm [facility] Medical Records Department [address] [place] [address] Instructions for Home/Discharge Instructions 10/31/22 1219 MR#: [id number] Acct: [id number] Name: SHIVANI BONILLA Rep #:[id number] : 1950 72 From: Nelson Mayorga MD PCP: Dr. Ganga Acosta, DO Status:CONCEPCION GRANDA Discharge Instructions Diet Discharge Diet: No restrictions, Light diet - advance as tolerated and Soft diet Activity Discharge Activity: Return to Normal Activity Follow Up Care Please Follow Up With: Nelson Mayorga MD When: call office for instuction, Test Results: Test results from this visit will be discussed in further detail at your follow- up appointment, if applicable. Discharge Plan Admission Admit Date/Time: 10/30/22 12:08 Primary Reason for Your Visit: right kidney stone Attending Provider: Nelson Mayorga Primary Care Provider: Ganga Acosta Discharge Orders/Prescriptions Prescriptions: New ciprofloxacin HCl [Cipro] 500 mg tablet 500 mg PO BID Qty: 10 0RF oxycodone-acetaminophen [Endocet] 5-325 mg tablet 1 tab PO Q6H PRN (Reason: pain) 7 Days Qty: 20 0RF Continued albuterol sulfate 90 mcg/actuation HFA aerosol inhaler 2 inh inhalation Q6H PRN (Reason: ASTHMA) Qty: 3 3RF azelastine 137 mcg (0.1 %) aerosol,spray 2 spray intranasal BID Rx Instructions: administer into each nostril cholecalciferol (vitamin D3) 50 mcg (2,000 unit) capsule 50 mcg PO DAILY Spiriva Respimat 1.25 mcg/actuation mist 2 inh INHALATION DAILY Qty: 3 3RF leflunomide 20 mg tablet 20 mg PO DAILY multivitamin [Multiple Vitamins] Tablet 1 tab PO DAILY Zyrtec 10 mg capsule 10 mg PO DAILY PRN (Reason: allergies) gabapentin 100 mg capsule 400 mg PO QHS fluticasone propionate 50 mcg/actuation spray,suspension 2 spray intranasal DAILY Qty: 18.2 11RF Rx Instructions: administer into each nostril risedronate 150 MG tablet 150 mg PO QMONTH Hold Instructions: Resume on 10/14/21. Rx Instructions: first day of the month hydroxychloroquine [Plaquenil] 200 mg Tablet 200 mg PO DAILY flurbiprofen 100 mg tablet 100 mg PO TID montelukast 10 mg tablet 10 mg PO QPM budesonide-formoterol [Symbicort] 160-4.5 mcg/actuation HFA aerosol inhaler 2 inh inhalation BID hydrocodone-acetaminophen 5-325 mg tablet 1 tab PO Q6H PRN PRN (Reason: Pain) 3 Days Qty: 10 0RF Referrals / Follow Up: Ganga Acosta DO [Primary Care Provider] - Disposition Discharge Orders: Discharge Patient (Routine); Ordered 10/31/22 Ordered By: Dr. Nelson Mayorga 10/31/22 1219<Electronically signed by Nelson Mayorga MD>Nelson Mayorga MD CC: Dr. Ganga Acosta DO ~ Signed [facility] Work Phone: 1(113) 573-947803-21-2023 Procedure [facility] 08-31-2022 Instructions* Patient Instructions* Zeinab Aguilar DPM - 08/31/2022 1:48 PM EST Recommend obtaining CBD oil or lotion from [employer] or online at [employer] documented in this encounterSt. [facility] [facility]01[facility] History of Present illness Narrative* Mckinley Guzman DPM - 08/31/2022 1:24 PM EST Chief Complaint: right foot pain in the setting of Charcot HPI: This 72 year old male with PMH indicated below significant for Charcot foot presents for follow-up of right foot pain. Patient states he has obtained the solid AFO at the end of June and also the custom foot orthotic, he has been ambulating with the AFO and custom foot orthotic without anyissues. He has been taking gabapentin as prescribed which alleviates his neuropathic pain at night. Denies new ulcerations. Patient denies constitutional symptoms. December 2016- medial column arthrodesis by Dr. 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 gabapentin (NEURONTIN) 100 mg capsule Take 3 capsules by mouth daily at bedtime. DULoxetine (CYMBALTA) 30 mg capsule Take 30 mg by mouth once daily. hydrOXYchloroQUINE (PLAQUENIL) 200 mg tablet linezolid (ZYVOX) 600 mg tablet budesonide/formoterol fumarate (SYMBICORT INHALATION) Inhale as instructed. tiotropium bromide (SPIRIVA RESPIMAT INHALATION) Inhale as instructed. leflunomide (ARAVA) 20 mg tablet Take 20 mg by mouth once daily. doxycycline hyclate (VIBRAMYCIN) 100 mg capsule Take 100 mg by mouth twice daily. Risedronate 150 mg tablet Take 150 mg by mouth once every month. In AM with cup of water on empty stomach. Nothing else by mouth and stay upright for 30 min. BD TUBERCULIN SYRINGE 1 mL 25 x 5/8 syrg methotrexate sodium 25 mg/mL soln once each week. montelukast (SINGULAIR) 10 mg tablet once daily. folic acid 1 mg tablet once daily. amoxicillin (POLYMOX, AMOXIL) 500 mg capsule once daily. (Patient not taking: Reported on 03/31/2021 ) predniSONE (DELTASONE) 5 mg tablet twice daily. (Patient not taking: Reported on 03/31/2021 ) Multivitamin capsule Take 1 capsule by mouth once daily. GLUCOSAMINE/CHONDROITIN SULF A (GLUCOSAMINE-CHONDROITIN ORAL) Take by mouth. mometasone (NASONEX) 50 mcg/actuation nasal spray Use 2 Sprays in the nose once daily. No current facility-administered medications for this visit. : ALLERGIES Allergen Reactions Gluten Shortness of Breath Peanuts Shortness of Breath Yeast, Dried Shortness of Breath : PAST SURGICAL HISTORY Procedure Laterality Date ARTHRP KNE CONDYLE&PLATU MEDIAL&LAT COMPARTMENTS Left 08/13/2004 ARTHRP KNE CONDYLE&PLATU MEDIAL&LAT COMPARTMENTS Right 08/13/2014 CARPAL TUNNEL 82,83 x2 each wrist COLONOSCOPY 08/13/2009 FOOT SURGERY HX Right 07/2020 FOOT SURGERY HX Right 11/29/2020 INGUINAL HERNIA REPAIR HX Right 09/13/2014 LX REPAIR RECURRENT VENTRAL HERNIA 11/08/2015 Laparoscopic repair of recurrent ventral hernia PAST SURGICAL HISTORY OF 01/11/1993 kidney stone removal PAST SURGICAL HISTORY OF 08/13/1997 cardiac catherization PAST SURGICAL HISTORY OF Left 08/13/2005 knee revision REMOVAL OF PROSTATE 02/10/2013 TONSILLECTOMY HX 08/13/1977 FAMILY HISTORY Problem Relation Age of Onset other (negative [Other]) Unknown : Social History Tobacco Use Smoking status: Never Smokeless tobacco: Never Substance Use Topics Alcohol use: No Drug use: No REVIEW OF SYSTEMS see tech note MSK: + as noted in HPI. Physical Exam: Patient is alert and oriented x 3 in NADPatient is a 72 year old male who appears well developed, well nourished and with good attention to hygiene and body habitus. Temp 36.8 C (98.3 F) Ht 177.8 cm (5' 10) Wt 99.8 kg (220 lb) BMI 31.57 kg/m Vascular: DP and PT pulses are palpable. CFT less than 3 seconds to all digits. Skin temperature iswarm to warm from proximal to distal. No increase in warmth to the right foot. Hair growth is absent. Moderate edema noted right midfoot. No varicosities noted. Neuro: Light touch intact. Protective sensation diminished at all pedal sites via Nicholson Dany 5.07 monofilament. Derm: Skin texture and turgor within normal limits. Webspaces 1-4 clean, dry, intact b/l. No rashes, subcutaneous nodules, or open lesions noted. Mild hyperkeratotic tissue medial midfoot right foot. Musculoskeletal/Orthopaedic: General foot morphology: decreased medial longitudinal arch with plantar prominence at midfoot. +5/5 muscle strength Dorsiflexion, Plantarflexion, Inversion, Eversion bilateral ROM of the 1st MTPJ is decreased without pain or crepitus. ROM of the MTJ/STJ is decreasedwithout pain or crepitus. Ankle joint ROM is decreased. Mild tenderness to palpation of the base of the first metatarsal and first tarsometatarsal joint ofthe right foot. No erythema or edema about the plantar midfoot right. Previous XRs; 3 views of the right foot 03/30/22 Impression: No acute fracture, dislocation or deformity when compared to prior study on 01/19/22. Periosteal reaction noted diffusely to midfoot with collapse of midfoot noted on lateral view consistent with charcot arthropathy. The first MTP joint appears dislocated with lateral deviation of distal phalanx of hallux. Distal phalanges of second and third toes are absent. 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 Plan: - A focused history and physical examination were preformed. The patient was educated on clinical and radiographic findings, diagnosis and treatment plans. Patient state that he understands all that has been explained and all questions were answered to his apparent satisfaction. - Etiology and treatment options of Charcot arthropathy and neuropathy were discussed with the patient. Conservative and surgical options discussed with patient with risks, benefits, complications, and postoperative course. Patient wishes to proceed with conservative treatment for now. - Recommend CBD oil or lotion for topical pain relief for neuropathy - Recommend patient to continue to wear solid AFO daily and perform twice daily foot examinations for any tissue breakdown. - Recommend house shoe when patient is in the house. - Patient to minimize weightbearing activity Follow up 3 months. Zeinab Aguilar DPM PGY-3 I personally saw and evaluated the patient. I reviewed the resident's note. I agree with the resident's assessment and plan unless otherwise noted. Mckinley Guzman DPM, FACFAS documented in this encounterSt. [facility] [facility]12[facility] History of Present illness Narrative* Mckinley Guzman DPM - 07/20/2022 2:04 PM EST Chief Complaint: right foot pain in the setting of Charcot HPI: This 72 year old male with PMH indicated below significant for Charcot foot presents for follow-up of right foot pain. Patient states he has obtained the solid AFO 2 weeks ago and has transitioned out of CAM boot. States the brace is doing well with no issues. Denies new ulcerations. Patient states the gabapentin has really helped his neuropathic pain and would like another prescription. Patient denies constitutional symptoms. December 2016- medial column arthrodesis by Dr. Rubi at [facility] October 2019- partial 2nd toe amputation right foot d/t infection July 2020- infx of hardware with tx IV abx through PICC line November 2020- hardware removal September 2021- partial 3rd toe amputation PCP: Ganga Acosta: PAST MEDICAL HISTORY Diagnosis Date Asthma Prostate cancer (HCC) Rheumatoid arthritis (HCC) Right foot pain : Current Outpatient Medications Medication Sig gabapentin (NEURONTIN) 100 mg capsule Take 3 capsules by mouth daily at bedtime. DULoxetine (CYMBALTA) 30 mg capsule Take 30 mg by mouth once daily. hydrOXYchloroQUINE (PLAQUENIL) 200 mg tablet linezolid (ZYVOX) 600 mg tablet budesonide/formoterol fumarate (SYMBICORT INHALATION) Inhale as instructed. tiotropium bromide (SPIRIVA RESPIMAT INHALATION) Inhale as instructed. leflunomide (ARAVA) 20 mg tablet Take 20 mg by mouth once daily. Risedronate 150 mg tablet Take 150 mg by mouth once every month. In AM with cup of water on empty stomach. Nothing else by mouth and stay upright for 30 min. montelukast (SINGULAIR) 10 mg tablet once daily. folic acid 1 mg tablet once daily. Multivitamin capsule Take 1 capsule by mouth once daily. mometasone (NASONEX) 50 mcg/actuation nasal spray Use 2 Sprays in the nose once daily. gabapentin (NEURONTIN) 400 mg capsule Take 1 capsule by mouth daily at bedtime for 30 days. doxycycline hyclate (VIBRAMYCIN) 100 mg capsule Take 100 mg by mouth twice daily. methotrexate sodium 25 mg/mL soln once each week. amoxicillin (POLYMOX, AMOXIL) 500 mg capsule once daily. (Patient not taking: Reported on 03/31/2021 ) predniSONE (DELTASONE) 5 mg tablet twice daily. (Patient not taking: Reported on 03/31/2021 ) BD TUBERCULIN SYRINGE 1 mL 25 x 5 syrg GLUCOSAMINE/CHONDROITIN SULF A (GLUCOSAMINE-CHONDROITIN ORAL) Take by mouth. No current facility-administered medications for this visit. : ALLERGIES Allergen Reactions Gluten Shortness of Breath Peanuts Shortness of Breath Yeast, Dried Shortness of Breath : PAST SURGICAL HISTORY Procedure Laterality Date ARTHRP KNE CONDYLE&PLATU MEDIAL&LAT COMPARTMENTS Left 08/13/2004 ARTHRP KNE CONDYLE&PLATU MEDIAL&LAT COMPARTMENTS Right 08/13/2014 CARPAL TUNNEL 82,83 x2 each wrist COLONOSCOPY 08/13/2009 FOOT SURGERY HX Right 07/2020 FOOT SURGERY HX Right 11/29/2020 INGUINAL HERNIA REPAIR HX Right 09/13/2014 LX REPAIR RECURRENT VENTRAL HERNIA 11/08/2015 Laparoscopic repair of recurrent ventral hernia PAST SURGICAL HISTORY OF 01/11/1993 kidney stone removal PAST SURGICAL HISTORY OF 08/13/1997 cardiac catherization PAST SURGICAL HISTORY OF Left 08/13/2005 knee revision REMOVAL OF PROSTATE 02/10/2013 TONSILLECTOMY HX 08/13/1977 FAMILY HISTORY Problem Relation Age of Onset other (negative [Other]) Unknown : Social History Tobacco Use Smoking status: Never Smokeless tobacco: Never Substance Use Topics Alcohol use: No Drug use: No REVIEW OF SYSTEMS see tech note MSK: + as noted in HPI. Physical Exam: Patient is alert and oriented x 3 in NADPatient is a 72 year old male who appears well developed, well nourished and with good attention to hygiene and body habitus. Ht 177.8 cm (5' 10) Wt 98.9 kg (218 lb) BMI 31.28 kg/m Vascular: DP and PT pulses are palpable. CFT less than 3 seconds to all digits. Skin temperature iswarm to warm from proximal to distal. No increase in warmth to the right foot. Hair growth is absent. Moderate edema noted right midfoot. No varicosities noted. Neuro: Light touch intact. Protective sensation diminished at all pedal sites via Nicholson Dany 5.07 monofilament. Derm: Skin texture and turgor within normal limits. Webspaces 1-4 clean, dry, intact b/l. No rashes, subcutaneous nodules, or open lesions noted. Mild hyperkeratotic tissue medial midfoot right foot. Musculoskeletal/Orthopaedic: General foot morphology: decreased medial longitudinal arch with plantar prominence at midfoot. +5/5 muscle strength Dorsiflexion, Plantarflexion, Inversion, Eversion bilateral ROM of the 1st MTPJ is decreased without pain or crepitus. ROM of the MTJ/STJ is decreasedwithout pain or crepitus. Ankle joint ROM is decreased. Mild tenderness to palpation of the base of the first metatarsal and first tarsometatarsal joint ofthe right foot. No erythema or edema about the plantar midfoot right. Previous XRs; 3 views of the right foot 03/30/22 Impression: No acute fracture, dislocation or deformity when compared to prior study on 01/19/22. Periosteal reaction noted diffusely to midfoot with collapse of midfoot noted on lateral view consistent with charcot arthropathy. The first MTP joint appears dislocated with lateral deviation of distal phalanx of hallux. Distal phalanges of second and third toes are absent. 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 Plan: - A focused history and physical examination were preformed. The patient was educated on clinical and radiographic findings, diagnosis and treatment plans. Patient state that he understands all that has been explained and all questions were answered to his apparent satisfaction. - Etiology and treatment options of Charcot arthropathy and neuropathy were discussed with the patient. Conservative and surgical options discussed with patient with risks, benefits, complications, and postoperative course. Patient wishes to proceed with conservative treatment for now. -New Rx for gabapentin 400 mg at bedtime with instructions for use sent to patient's pharmacy. - Recommend patient to wear solid AFO daily and perform twice daily foot examinations for any tissue breakdown. - Patient to continue using Voltaren gel as needed - Patient to minimize weightbearing activity Follow up 6 weeks Ada Hayden DPM PGY3 I personally saw and evaluated the patient. I reviewed the resident's note. I agree with the resident's assessment and plan unless otherwise noted. Mckinley Guzman DPM, FACFAS documented in this encounterSt. [facility] [facility]11[facility] Miscellaneous Notes* Telephone Encounter - Quita Meenu - 06/23/2022 9:34 AM EST Called to reschedule 07/13 appt. To 07/20 lvm documented in this encounterSt. [facility]10[facility] History of Present illness Narrative* Mckinley Guzman, DPM - 06/04/2022 8:27 PM EDT Chief Complaint: right foot pain HPI: This 72 year old male with PMH indicated below significant for Charcot foot presents for follow-up of right foot pain. Patient states he has had no changes since last visit. Patient has been wearing his [place] boot and reduced his activities. Patient states he was able to stop using crutches andhas been full weightbearing in [employer] [place] boot. Patient states the gabapentin has really helped his neuropathic pain and would like another prescription. Patient states he has been in his [place] boot since February 16. Patient denies constitutional symptoms. December 2016- medial column arthrodesis by Dr. Rubi at [facility] October 2019- partial 2nd toe amputation right foot d/t infection July 2020- infx of hardware with tx IV abx through PICC line November 2020- hardware removal September 2021- partial 3rd toe amputation PCP: Ganga Acosta: PAST MEDICAL HISTORY Diagnosis Date Asthma Prostate cancer (HCC) Rheumatoid arthritis (HCC) Right foot pain : Current Outpatient Medications Medication Sig gabapentin (NEURONTIN) 100 mg capsule Take 3 capsules by mouth daily at bedtime. DULoxetine (CYMBALTA) 30 mg capsule Take 30 mg by mouth once daily. hydrOXYchloroQUINE (PLAQUENIL) 200 mg tablet linezolid (ZYVOX) 600 mg tablet budesonide/formoterol fumarate (SYMBICORT INHALATION) Inhale as instructed. tiotropium bromide (SPIRIVA RESPIMAT INHALATION) Inhale as instructed. leflunomide (ARAVA) 20 mg tablet Take 20 mg by mouth once daily. Risedronate 150 mg tablet Take 150 mg by mouth once every month. In AM with cup of water on empty stomach. Nothing else by mouth and stay upright for 30 min. montelukast (SINGULAIR) 10 mg tablet once daily. folic acid 1 mg tablet once daily. Multivitamin capsule Take 1 capsule by mouth once daily. mometasone (NASONEX) 50 mcg/actuation nasal spray Use 2 Sprays in the nose once daily. gabapentin (NEURONTIN) 400 mg capsule Take 1 capsule by mouth daily at bedtime for 30 days. doxycycline hyclate (VIBRAMYCIN) 100 mg capsule Take 100 mg by mouth twice daily. methotrexate sodium 25 mg/mL soln once each week. amoxicillin (POLYMOX, AMOXIL) 500 mg capsule once daily. (Patient not taking: Reported on 03/31/2021 ) predniSONE (DELTASONE) 5 mg tablet twice daily. (Patient not taking: Reported on 03/31/2021 ) BD TUBERCULIN SYRINGE 1 mL 25 x 12/18 syrg GLUCOSAMINE/CHONDROITIN SULF A (GLUCOSAMINE-CHONDROITIN ORAL) Take by mouth. No current facility-administered medications for this visit. : ALLERGIES Allergen Reactions Gluten Shortness of Breath Peanuts Shortness of Breath Yeast, Dried Shortness of Breath : PAST SURGICAL HISTORY Procedure Laterality Date ARTHRP KNE CONDYLE&PLATU MEDIAL&LAT COMPARTMENTS Left 08/13/2004 ARTHRP KNE CONDYLE&PLATU MEDIAL&LAT COMPARTMENTS Right 08/13/2014 CARPAL TUNNEL 82,83 x2 each wrist COLONOSCOPY 08/13/2009 FOOT SURGERY HX Right 07/2020 FOOT SURGERY HX Right 11/29/2020 INGUINAL HERNIA REPAIR HX Right 09/13/2014 LX REPAIR RECURRENT VENTRAL HERNIA 11/08/2015 Laparoscopic repair of recurrent ventral hernia PAST SURGICAL HISTORY OF 01/11/1993 kidney stone removal PAST SURGICAL HISTORY OF 08/13/1997 cardiac catherization PAST SURGICAL HISTORY OF Left 08/13/2005 knee revision REMOVAL OF PROSTATE 02/10/2013 TONSILLECTOMY HX 08/13/1977 FAMILY HISTORY Problem Relation Age of Onset other (negative [Other]) Unknown : Social History Tobacco Use Smoking status: Never Smokeless tobacco: Never Substance Use Topics Alcohol use: No Drug use: No REVIEW OF SYSTEMS see tech note MSK: + as noted in HPI. Physical Exam: Patient is alert and oriented x 3 in NADPatient is a 72 year old male who appears well developed, well nourished and with good attention to hygiene and body habitus. Resp 18 Ht 177.8 cm (5' 10) Wt 98.9 kg (218 lb) BMI 31.28 kg/m Vascular: DP and PT pulses are palpable. CFT less than 3 seconds to all digits. Skin temperature iswarm to warm from proximal to distal. No increase in warmth to the right foot. Hair growth is absent. Moderate edema noted right midfoot. No varicosities noted. Neuro: Light touch intact. Protective sensation diminished at all pedal sites via Nicholson Dany 5.07 monofilament. Derm: Skin texture and turgor within normal limits. Webspaces 1-4 clean, dry, intact b/l. No rashes, subcutaneous nodules, or open lesions noted. Mild hyperkeratotic tissue medial midfoot right foot. Musculoskeletal/Orthopaedic: General foot morphology: decreased medial longitudinal arch with plantar prominence at midfoot. +5/5 muscle strength Dorsiflexion, Plantarflexion, Inversion, Eversion bilateral ROM of the 1st MTPJ is decreased without pain or crepitus. ROM of the MTJ/STJ is decreasedwithout pain or crepitus. Ankle joint ROM is decreased. Mild tenderness to palpation of the base of the first metatarsal and first tarsometatarsal joint ofthe right foot. No erythema or edema about the plantar midfoot right. Previous XRs; 3 views of the right foot 03/30/22 Impression: No acute fracture, dislocation or deformity when compared to prior study on 01/19/22. Periosteal reaction noted diffusely to midfoot with collapse of midfoot noted on lateral view consistent with charcot arthropathy. The first MTP joint appears dislocated with lateral deviation of distal phalanx of hallux. Distal phalanges of second and third toes are absent. 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 Plan: - A focused history and physical examination were preformed. The patient was educated on clinical and radiographic findings, diagnosis and treatment plans. Patient state that he understands all that has been explained and all questions were answered to his apparent satisfaction. - Etiology and treatment options of Charcot arthropathy and neuropathy were discussed with the patient. Conservative and surgical options discussed with patient with risks, benefits, complications, and postoperative course. Patient wishes to proceed with conservative treatment for now. -New Rx for gabapentin with instructions for use sent to patient's pharmacy. Patient to start taking 400 mg at bedtime. - Recommend patient to wear [place] boot daily and perform twice daily foot examinations for any tissue breakdown. - Patient to continue using Voltaren gel as needed - Patient to minimize weightbearing activity - Continue to wear [place] boot. - Rx Solid AFO. Transition out of [place] boot upon receiving new AFO. Follow up one month. Lenny Melendez DPM PGY-3 I personally saw and evaluated the patient. I reviewed the resident's note. I agree with the resident's assessment and plan unless otherwise noted. Mckinley Guzman DPM, FACFAS * Zoya Bob MA - 06/01/2022 10:43 AM EDT REVIEW OF SYSTEMS: GENERAL: Requesting a refill on Gabapentin today. PAIN: Negative for pain, history of chronic pain or current treatment for chronic pain conditions and Pain 2/10 CARDIOVASCULAR: Negative for chest pain, leg swelling and palpations. MSK: Negative for joint swelling SKIN: Negative for lesions, rash, itching, metal sensitivity NEURO: Negative for seizure, trauma, numbness/tingling of extremities. ENDOCRINE: Negative for diabetic associated symptoms HEMATOLOGY: Negative for excessive bleeding, clots, bleeding disorders. Zoya Bob MA documented [facility] History of Present illness Narrative* Mckinley Guzman DPM - 05/04/2022 11:40 AM EDT Chief Complaint: right foot pain HPI: This 72 year old male with PMH indicated below significant for Charcot foot presents for follow-up of right foot pain. Patient states he has had no changes since last visit. Patient has been wearing his [employer]IST[employer] W boot and reduced his activities. Complains of 6/10 pain which is constant and aching without much walking. States that he uses a knee walker in the house. States he has electric shocks of pain that sporadically emanate from his foot. Patient denies taking gabapentin. Of note, he has underwent the following surgical procedures to the right foot: December 2016- medial column arthrodesis by Dr. 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 hydrOXYchloroQUINE (PLAQUENIL) 200 mg tablet linezolid (ZYVOX) 600 mg tablet budesonide/formoterol fumarate (SYMBICORT INHALATION) Inhale as instructed. tiotropium bromide (SPIRIVA RESPIMAT INHALATION) Inhale as instructed. leflunomide (ARAVA) 20 mg tablet Take 20 mg by mouth once daily. Risedronate 150 mg tablet Take 150 mg by mouth once every month. In AM with cup of water on empty stomach. Nothing else by mouth and stay upright for 30 min. montelukast (SINGULAIR) 10 mg tablet once daily. folic acid 1 mg tablet once daily. Multivitamin capsule Take 1 capsule by mouth once daily. mometasone (NASONEX) 50 mcg/actuation nasal spray Use 2 Sprays in the nose once daily. doxycycline hyclate (VIBRAMYCIN) 100 mg capsule Take 100 mg by mouth twice daily. methotrexate sodium 25 mg/mL soln once each week. amoxicillin (POLYMOX, AMOXIL) 500 mg capsule once daily. (Patient not taking: Reported on 03/31/2021 ) predniSONE (DELTASONE) 5 mg tablet twice daily. (Patient not taking: Reported on 03/31/2021 ) BD TUBERCULIN SYRINGE 1 mL 25 x 5/8 syrg GLUCOSAMINE/CHONDROITIN SULF A (GLUCOSAMINE-CHONDROITIN ORAL) Take by mouth. No current facility-administered medications for this visit. : ALLERGIES Allergen Reactions Gluten Shortness of Breath Peanuts Shortness of Breath Yeast, Dried Shortness of Breath : PAST SURGICAL HISTORY Procedure Laterality Date ARTHRP KNE CONDYLE&PLATU MEDIAL&LAT COMPARTMENTS Left 08/13/2004 ARTHRP KNE CONDYLE&PLATU MEDIAL&LAT COMPARTMENTS Right 08/13/2014 CARPAL TUNNEL 82,83 x2 each wrist COLONOSCOPY 08/13/2009 FOOT SURGERY HX Right 07/2020 FOOT SURGERY HX Right 11/29/2020 INGUINAL HERNIA REPAIR HX Right 09/13/2014 LX REPAIR RECURRENT VENTRAL HERNIA 11/08/2015 Laparoscopic repair of recurrent ventral hernia PAST SURGICAL HISTORY OF 01/11/1993 kidney stone removal PAST SURGICAL HISTORY OF 08/13/1997 cardiac catherization PAST SURGICAL HISTORY OF Left 08/13/2005 knee revision REMOVAL OF PROSTATE 02/10/2013 TONSILLECTOMY HX 08/13/1977 FAMILY HISTORY Problem Relation Age of Onset other (negative [Other]) Unknown : Social History Tobacco Use Smoking status: Never Smokeless tobacco: Never Substance Use Topics Alcohol use: No Drug use: No REVIEW OF SYSTEMS see tech note MSK: + as noted in HPI. Physical Exam: Patient is alert and oriented x 3 in NADPatient is a 72 year old male who appears well developed, well nourished and with good attention to hygiene and body habitus. Resp 20 Ht 177.8 cm (5' 10) Wt 98.9 kg (218 lb) BMI 31.28 kg/m Vascular: DP and PT pulses are palpable. CFT less than 3 seconds to all digits. Skin temperature iswarm to warm from proximal to distal. No increase in warmth to the right foot. Hair growth is absent. Moderate edema noted right midfoot. No varicosities noted. Neuro: Light touch intact. Protective sensation diminished at all pedal sites via Nicholson Dany 5.07 monofilament. Derm: Skin texture and turgor within normal limits. Webspaces 1-4 clean, dry, intact b/l. No rashes, subcutaneous nodules, or open lesions noted. Mild hyperkeratotic tissue medial midfoot right foot. Musculoskeletal/Orthopaedic: General foot morphology: decreased medial longitudinal arch with plantar prominence at midfoot. +5/5 muscle strength Dorsiflexion, Plantarflexion, Inversion, Eversion bilateral ROM of the 1st MTPJ is decreased without pain or crepitus. ROM of the MTJ/STJ is decreasedwithout pain or crepitus. Ankle joint ROM is decreased. Mild tenderness to palpation of the base of the first metatarsal and first tarsometatarsal joint ofthe right foot. No erythema or edema about the plantar midfoot right. Previous XRs; 3 views of the right foot 03/30/22 Impression: No acute fracture, dislocation or deformity when compared to prior study on 01/19/22. Periosteal reaction noted diffusely to midfoot with collapse of midfoot noted on lateral view consistent with charcot arthropathy. The first MTP joint appears dislocated with lateral deviation of distal phalanx of hallux. Distal phalanges of second and third toes are absent. 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 Plan: - A focused history and physical examination were preformed. The patient was educated on clinical and radiographic findings, diagnosis and treatment plans. Patient state that he understands all that has been explained and all questions were answered to his apparent satisfaction. - Etiology and treatment options of Charcot arthropathy and neuropathy were discussed with the patient. Conservative and surgical options discussed with patient with risks, benefits, complications, and postoperative course. Patient wishes to proceed with conservative treatment for now. -Rx for gabapentin with instructions for use sent to patient's pharmacy. Patient to start taking 300 mg at bedtime. - Recommend patient to wear [place] boot daily and perform twice daily foot examinations for any tissue breakdown. Advised patient to perform gradual transition without assistance of crutches when wearing the [place] boot. -Patient to continue using Voltaren gel as needed - Patient to minimize weightbearing activity -Continue to wear [place] boot. - Follow up one month. Consider transition into brace. Avi Mix DPM PGY-3 documented in this encounterSt[facility] [facility] History of Present illness Narrative* Mckinley Guzman DPM - 04/02/2022 2:03 PM EDT Chief Complaint: right foot pain HPI: This 72 year old male with PMH indicated below presents complaining of right foot pain. Patient complains of recent injury since the last visit to his right foot when he was not wearing his CROWboot. He states that he put weight on his foot without the boot and felt a pop in his plantar midfoot. He states that pain is 5/10 with a dull ache. He denies any redness or swelling. He was diagnosed with Charcot arthropathy of the mid foot. Patient has neuropathy however the etiology is unknown. He has been NWB since that time and admits to constant pain described as aching, throbbing, and burning. He admits to taking tylenol with minimal relief. Of note, he has underwent the following surgical procedures to the right foot: December 2016- medial column arthrodesis by Dr. 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 hydrOXYchloroQUINE (PLAQUENIL) 200 mg tablet linezolid (ZYVOX) 600 mg tablet budesonide/formoterol fumarate (SYMBICORT INHALATION) Inhale as instructed. tiotropium bromide (SPIRIVA RESPIMAT INHALATION) Inhale as instructed. leflunomide (ARAVA) 20 mg tablet Take 20 mg by mouth once daily. Risedronate 150 mg tablet Take 150 mg by mouth once every month. In AM with cup of water on empty stomach. Nothing else by mouth and stay upright for 30 min. montelukast (SINGULAIR) 10 mg tablet once daily. folic acid 1 mg tablet once daily. Multivitamin capsule Take 1 capsule by mouth once daily. mometasone (NASONEX) 50 mcg/actuation nasal spray Use 2 Sprays in the nose once daily. diclofenac (VOLTAREN) 1 % topical gel Apply 2 g to affected area four times daily. doxycycline hyclate (VIBRAMYCIN) 100 mg capsule Take 100 mg by mouth twice daily. methotrexate sodium 25 mg/mL soln once each week. amoxicillin (POLYMOX, AMOXIL) 500 mg capsule once daily. (Patient not taking: Reported on 03/31/2021 ) predniSONE (DELTASONE) 5 mg tablet twice daily. (Patient not taking: Reported on 03/31/2021 ) BD TUBERCULIN SYRINGE 1 mL 25 x 12/18 syrg GLUCOSAMINE/CHONDROITIN SULF A (GLUCOSAMINE-CHONDROITIN ORAL) Take by mouth. No current facility-administered medications for this visit. : ALLERGIES Allergen Reactions Gluten Shortness of Breath Peanuts Shortness of Breath Yeast, Dried Shortness of Breath : PAST SURGICAL HISTORY Procedure Laterality Date ARTHRP KNE CONDYLE&PLATU MEDIAL&LAT COMPARTMENTS Left 08/13/2004 ARTHRP KNE CONDYLE&PLATU MEDIAL&LAT COMPARTMENTS Right 08/13/2014 CARPAL TUNNEL 82,83 x2 each wrist COLONOSCOPY 08/13/2009 FOOT SURGERY HX Right 07/2020 FOOT SURGERY HX Right 11/29/2020 INGUINAL HERNIA REPAIR HX Right 09/13/2014 LX REPAIR RECURRENT VENTRAL HERNIA 11/08/2015 Laparoscopic repair of recurrent ventral hernia PAST SURGICAL HISTORY OF 01/11/1993 kidney stone removal PAST SURGICAL HISTORY OF 08/13/1997 cardiac catherization PAST SURGICAL HISTORY OF Left 08/13/2005 knee revision REMOVAL OF PROSTATE 02/10/2013 TONSILLECTOMY HX 08/13/1977 FAMILY HISTORY Problem Relation Age of Onset other (negative [Other]) Unknown : Social History Tobacco Use Smoking status: Never Smokeless tobacco: Never Substance Use Topics Alcohol use: No Drug use: No REVIEW OF SYSTEMS see tech note MSK: + as noted in HPI. Physical Exam: Patient is alert and oriented x 3 in NADPatient is a 72 year old male who appears well developed, well nourished and with good attention to hygiene and body habitus. Resp 18 Ht 177.8 cm (5' 10) Wt 102.1 kg (225 lb) BMI 32.28 kg/m Vascular: DP and PT pulses are palpable. CFT less than 3 seconds to all digits. Skin temperature iswarm to warm from proximal to distal. No increase in warmth to the right foot. Hair growth is absent. Moderate edema noted right midfoot. No varicosities noted. Neuro: Light touch intact. Protective sensation diminished at all pedal sites via Nicholson Dany 5.07 monofilament. Derm: Skin texture and turgor within normal limits. Webspaces 1-4 clean, dry, intact b/l. No rashes, subcutaneous nodules, or open lesions noted. Mild hyperkeratotic tissue medial midfoot right foot. Musculoskeletal/Orthopaedic: General foot morphology: decreased medial longitudinal arch with plantar prominence at midfoot. +5/5 muscle strength Dorsiflexion, Plantarflexion, Inversion, Eversion bilateral ROM of the 1st MTPJ is decreased without pain or crepitus. ROM of the MTJ/STJ is decreasedwithout pain or crepitus. Ankle joint ROM is decreased. Mild tenderness to palpation of the base of the first metatarsal and first tarsometatarsal joint ofthe right foot. No erythema or edema about the plantar midfoot right. Previous XRs; 3 views of the right foot 03/30/22 Impression: No acute fracture, dislocation or deformity when compared to prior study on 01/19/22. Periosteal reaction noted diffusely to midfoot with collapse of midfoot noted on lateral view consistent with charcot arthropathy. The first MTP joint appears dislocated with lateral deviation of distal phalanx of hallux. Distal phalanges of second and third toes are absent. 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 Plan: - A focused history and physical examination were preformed. The patient was educated on clinical and radiographic findings, diagnosis and treatment plans. Patient state that he understands all that has been explained and all questions were answered to his apparent satisfaction. - Etiology and treatment options of Charcot arthropathy were discussed with the patient. Conservative and surgical options discussed with patient with risks, benefits, complications, and postoperative course. Patient wishes to proceed with conservative treatment for now. - Recommend patient to wear [place] boot daily and perform twice daily foot examinations for any tissue breakdown. Advised patient to perform gradual transition without assistance of crutches when wearing the [place] boot. - Rx Voltaren gel sent to patients pharmacy with instructions on use. - Patient to minimize weightbearing activity - Discussed with patient that he will likely need to wear [place] boot for the next 3 months. - Follow up one month or sooner should he notice any signs or symptoms of infection or worsening changes. Zeinab Aguilar DPM PGY-3 I personally saw and evaluated the patient. I reviewed the resident's note. I agree with the resident's assessment and plan unless otherwise noted. Mckinley Guzman DPM, FACFAS * Zoya Bob MA - 03/30/2022 11:00 AM EDT REVIEW OF SYSTEMS: GENERAL: Well developed, well nourished. No acute distress PAIN: Negative for pain, history of chronic pain or current treatment for chronic pain conditions and Pain 5/10 CARDIOVASCULAR: Negative for chest pain, leg swelling and palpations. MSK: Negative for joint swelling SKIN: Negative for lesions, rash, itching, metal sensitivity NEURO: Negative for seizure, trauma, numbness/tingling of extremities. ENDOCRINE: Negative for diabetic associated symptoms HEMATOLOGY: Negative for excessive bleeding, clots, bleeding disorders. Zoya Bob MA documented in this encounterSt[facility] History of Present illness Narrative* Mckinley Williams Guzman, CONNOR - 02/16/2022 10:33 AM EDT Chief Complaint: right foot pain HPI: This 72 year old male with PMH indicated below presents complaining of right foot pain. Patient is accompanied by . Patient presents for follow up of charcot incident to the right foot has been NWB in [facility]. Patient has hand picker [place] walker today. He was diagnosed with Charcot arthropathy of the mid foot. Patient has neuropathy however the etiology is unknown. He has been NWB since that time and admits to constant pain described as aching, throbbing, and burning. He admits to taking tylenol with minimal relief. Of note, he has underwent the following surgical procedures to the right foot: December 2016- medial column arthrodesis by Dr. 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 hydrOXYchloroQUINE (PLAQUENIL) 200 mg tablet linezolid (ZYVOX) 600 mg tablet budesonide/formoterol fumarate (SYMBICORT INHALATION) Inhale as instructed. tiotropium bromide (SPIRIVA RESPIMAT INHALATION) Inhale as instructed. leflunomide (ARAVA) 20 mg tablet Take 20 mg by mouth once daily. doxycycline hyclate (VIBRAMYCIN) 100 mg capsule Take 100 mg by mouth twice daily. Risedronate 150 mg tablet Take 150 mg by mouth once every month. In AM with cup of water on empty stomach. Nothing else by mouth and stay upright for 30 min. BD TUBERCULIN SYRINGE 1 mL 25 x 5/8 syrg Multivitamin capsule Take 1 capsule by mouth once daily. GLUCOSAMINE/CHONDROITIN SULF A (GLUCOSAMINE-CHONDROITIN ORAL) Take by mouth. mometasone (NASONEX) 50 mcg/actuation nasal spray Use 2 Sprays in the nose once daily. methotrexate sodium 25 mg/mL soln once each week. montelukast (SINGULAIR) 10 mg tablet once daily. folic acid 1 mg tablet once daily. amoxicillin (POLYMOX, AMOXIL) 500 mg capsule once daily. (Patient not taking: Reported on 03/31/2021 ) predniSONE (DELTASONE) 5 mg tablet twice daily. (Patient not taking: Reported on 03/31/2021 ) No current facility-administered medications for this visit. : ALLERGIES Allergen Reactions Gluten Shortness of Breath Peanuts Shortness of Breath Yeast, Dried Shortness of Breath : PAST SURGICAL HISTORY Procedure Laterality Date ARTHRP KNE CONDYLE&PLATU MEDIAL&LAT COMPARTMENTS Left 08/13/2004 ARTHRP KNE CONDYLE&PLATU MEDIAL&LAT COMPARTMENTS Right 08/13/2014 CARPAL TUNNEL 82,83 x2 each wrist COLONOSCOPY 08/13/2009 FOOT SURGERY HX Right 07/2020 FOOT SURGERY HX Right 11/29/2020 INGUINAL HERNIA REPAIR HX Right 09/13/2014 LX REPAIR RECURRENT VENTRAL HERNIA 11/08/2015 Laparoscopic repair of recurrent ventral hernia PAST SURGICAL HISTORY OF 01/11/1993 kidney stone removal PAST SURGICAL HISTORY OF 08/13/1997 cardiac catherization PAST SURGICAL HISTORY OF Left 08/13/2005 knee revision REMOVAL OF PROSTATE 02/10/2013 TONSILLECTOMY HX 08/13/1977 FAMILY HISTORY Problem Relation Age of Onset other (negative [Other]) Unknown : Social History Tobacco Use Smoking status: Never Smoker Smokeless tobacco: Never Used Substance Use Topics Alcohol use: No Drug use: No REVIEW OF SYSTEMS see tech note MSK: + as noted in HPI. Physical Exam: Patient is alert and oriented x 3 in NADPatient is a 72 year old male who appears well developed, well nourished and with good attention to hygiene and body habitus. Temp 36.8 C (98.2 F) Ht 177.8 cm (5' 10) Wt 102.1 kg (225 lb) BMI 32.28 kg/m Vascular: DP and PT pulses are palpable. CFT less than 3 seconds to all digits. Skin temperature iswarm to warm from proximal to distal. No increase in warmth to the right foot. Hair growth is absent. Moderate edema noted right midfoot. No varicosities noted. Neuro: Light touch intact. Protective sensation diminished at all pedal sites via Nicholson Dany 5.07 monofilament. Derm: Skin texture and turgor within normal limits. Webspaces 1-4 clean, dry, intact b/l. No rashes, subcutaneous nodules, or open lesions noted. Mild hyperkeratotic tissue medial midfoot right foot. Musculoskeletal/Orthopaedic: General foot morphology: decreased medial longitudinal arch with plantar prominence at midfoot. +5/5 muscle strength Dorsiflexion, Plantarflexion, Inversion, Eversion bilateral ROM of the 1st MTPJ is decreased without pain or crepitus. ROM of the MTJ/STJ is decreasedwithout pain or crepitus. Ankle joint ROM is decreased. No pain elicited with physical exam. Patient subjectively reports pain with weightbearing. Previous XRs; 3 views of the right foot 01/19/22 Impression: Periosteal reaction noted diffusely to midfoot with collapse of midfoot noted on lateral view consistent with charcot arthropathy.. The first MTP joint appears dislocated with lateral deviation of distal phalanx of hallux. Distal phalanges of second and third toes are absent. 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 Plan: - A focused history and physical examination were preformed. The patient was educated on clinical and radiographic findings, diagnosis and treatment plans. Patient state that he understands all that has been explained and all questions were answered to his apparent satisfaction. - Etiology and treatment options of Charcot arthropathy were discussed with the patient. Conservative and surgical options discussed with patient with risks, benefits, complications, and postoperative course. Patient wishes to proceed with conservative treatment for now. - Discussed COLD SPRINGS boot and instructions on use. Recommend patient to wear COLD SPRINGS boot daily and perform twice daily foot examinations for any tissue breakdown. Advised patient to perform gradual transition without assistance of crutches when wearing the COLD SPRINGS boot. - Patient to minimize weightbearing activity - Follow up one month. Kelvin Owens DPM PGY-3 I personally saw and evaluated the patient. I reviewed the resident's note. I agree with the resident's assessment and plan unless otherwise noted. Mckinley Guzman DPM, FACFAS documented [facility] Miscellaneous Notes* Telephone Encounter - Concepcion Marcum [facility] - 01/13/2022 11:10 AM EDT Spoke with patient and appointment was made Concepcion Amaro * Telephone Encounter - Marycruz Melgar [employer] [facility] - 01/13/2022 10:50 AM EDT ----- Message from Nii Monroe sent at 01/13/2022 10:22 AM EDT ----- Regarding: Orthopedics / Open Foot: Fracture Broken / Previous Surgery By A Non-AG Provider Subject Line Format: Orthopedics / [Provider Name or Open & Body Part] / [Issue] Patient has been identified by name and Date of (Y/N): yes Patient: Shivani Bonilla Date of : 1950 Previous Provider Seen: no Body Part(s) Identified: foot Diagnosis/Reason For Visit: broken Reason for the call/escalation: not able to make appt If reason for call/escalation is discharge from ED/ER or Hospital, which facility was the patient seen at: no Was an appointment scheduled (Y/N): no Person calling if other than patient: no Return call to if other than patient: no Best contact number: [phone] Thank you, Nii Monroe January 13, 2022 10:22 AM documented in this encounterSt. [facility] NoteHNO ID: [id number] Author: Favio Bañuelos MD Service: ? Author Type: Physician Type: Progress Notes Filed: 04/11/2021 5:48 AM Note Text: FOLLOW UP VISIT NAME: Shivani Bonilla [facility] NO.: [id number] DATE OF SERVICE: 04/07/2021 : 1950 REFERRING PHYSICIAN: Ganga Acosta Shivani is a patient I am following for right groin pain. The patient returns with concern of a recurrent hernia. The patient notes discomfort in his right inguinal area. He has noticed this pain for approximately 6 months. Notes that it hurts when he moves or when he is sitting. He notes it is worse when he is lifting. He states he feels like he can sense the edge of the mesh in that location. ? I had seen the patient in the past for recurrent incisional hernia. He also had inguinal pain and a questionable left inguinal hernia on CT scan at that time. ? On November 08, 2015, I performed a laparoscopic lysis of adhesions laparoscopic removal of a previous 8 x 7 cm piece of mesh and placement of a 17.8 x 22.9 cm ventral light mesh. Laparoscopic inspection at that time demonstrated no true inguinal hernias on the right or left side. Saw him for examination March 31, 2021. I found no hernias on palpation at that time. The patient was heard for CT scan of the abdomen pelvis. Underwent CT scan on April 05, 2021. This demonstrated: IMPRESSION: Mild nonspecific wall thickening of the rectosigmoid colon. ?Colitis cannot be excluded. Minimal atelectasis and bronchiectasis at both lung bases. Nephrolithiasis. ?Left renal cyst. Low-density hepatic foci are incompletely characterized. ?Likely benign The patient's previously placed midline mesh was in place with no signs of recurrence. There were no demonstratable hernias in the right inguinal area. VITALS: There were no vitals taken for this visit. On examination, the patient has no demonstratable hernia by palpation on the right inguinal area. With percussion on the lower back mid lumbar area the patient notes pain in the area that radiates down to his right groin area., Assessment IMPRESSION: Right groin pain, more likely lumbar sacral pain ventral hernia PLAN: If the patient notes any problems or signs of bulge in the right groin area, the patient should contact me immediately. Patient states he sees a chiropractor for cervical issues and he will follow up with him for assessment of lumbar issues. Diagnoses: (R10.31) Right groin pain (primary encounter diagnosis) Return to Clinic: The patient is instructed to follow-up with me as needed. Favio Bañuelos, [facility]08-24-2021 NoteHNO ID: [id number] Author: Melina Dawson Service: ? Author Type: Policy Issue Clerk Type: Progress Notes Filed: 04/05/2021 3:37 PM Note Text: Radiology Service Progress Note PATIENT NAME: Shivani Bonilla DATE OF SERVICE: April 05, 2021 TIME: 3:37 PM PATIENT IDENTITY VERIFICATION COMPLETED USING TWO (2) IDENTIFIERS: Name and Date of confirmed by patient verbally. FALL SCREENING: Has the patient had 2 falls in the last year or 1 fall with injury or currently using an Ambulatory Assistive Device (Walker, Cane, Wheelchair, Crutches, etc.)? No PATIENT GENDER DATA: Male PATIENT RELEVANT IMPLANT DATA REVIEWED: Not Applicable RADIOLOGY DEPARTMENT: CT; Exam(s) Completed: Abdomen/Pelvis PERIPHERAL IV DATA: Not applicable SIGNED BY: Melina Munoz April 05, 2021 3:37 [facility]08-24-2021 NoteHNO ID: [id number] Author: Favio Bañuelos MD Service: ? Author Type: Physician Type: Progress Notes Filed: 04/05/2021 6:42 AM Note Text: HISTORY AND PHYSICAL Shivani Bonilla 1950 REFERRING PHYSICIAN: Self CHIEF COMPLAINT: Consult (Possible Right Inguinal Hernia repair) HPI: The patient is a 71 year old male with a complaint of right groin discomfort. The patient returns with concern of a recurrent hernia. The patient notes discomfort in his right inguinal area. He has noticed this pain for approximately 6 months. Notes that it hurts when he moves or when he is sitting. He notes it is worse when he is lifting. He states he feels like he can sense the edge of the mesh in that location. I had seen the patient in the past for recurrent incisional hernia. He also had inguinal pain and a questionable left inguinal hernia on CT scan at that time. On November 08, 2015, I performed a laparoscopic lysis of adhesions laparoscopic removal of a previous 8 x 7 cm piece of mesh and placement of a 17.8 x 22.9 cm ventral light mesh. Laparoscopic inspection at that time demonstrated no true inguinal hernias on the right or left side. The patient is being seen by me today at the request of Dr. Ganga Acosta for my opinion and advice regarding right inguinal pain, questionable right inguinal hernia. PAST MEDICAL HISTORY Diagnosis Date - Asthma - Prostate cancer (HCC) - Rheumatoid arthritis (HCC) PAST SURGICAL HISTORY Procedure Laterality Date - CARPAL TUNNEL 82,83 x2 each wrist - COLONOSCOPY 08/13/2009 - FOOT SURGERY HX Right 07/2020 - FOOT SURGERY HX Right 11/29/2020 - INGUINAL HERNIA REPAIR HX Right 09/13/2014 - LX REPAIR RECURRENT VENTRAL HERNIA 11/08/2015 Laparoscopic repair of recurrent ventral hernia - PAST SURGICAL HISTORY OF 01/11/1993 kidney stone removal - PAST SURGICAL HISTORY OF 08/13/1997 cardiac catherization - PAST SURGICAL HISTORY OF Left 08/13/2005 knee revision - REMOVAL OF PROSTATE 02/10/2013 - TONSILLECTOMY HX 08/13/1977 - TOTAL KNEE REPLACEMENT Left 08/13/2004 - TOTAL KNEE REPLACEMENT Right 08/13/2014 Current Outpatient Medications Medication Sig - budesonide/formoterol fumarate (SYMBICORT INHALATION) Inhale as instructed. - tiotropium bromide (SPIRIVA RESPIMAT INHALATION) Inhale as instructed. - leflunomide (ARAVA) 20 mg tablet Take 20 mg by mouth once daily. - doxycycline hyclate (VIBRAMYCIN) 100 mg capsule Take 100 mg by mouth twice daily. - Risedronate 150 mg tablet Take 150 mg by mouth once every month. In AM with cup of water on empty stomach. Nothing else by mouth and stay upright for 30 min. - methotrexate sodium 25 mg/mL soln once each week. - montelukast (SINGULAIR) 10 mg tablet once daily. - folic acid 1 mg tablet once daily. - BD TUBERCULIN SYRINGE 1 mL 25 x 5/8 syrg - Multivitamin capsule Take 1 capsule by mouth once daily. - GLUCOSAMINE/CHONDROITIN SULF A (GLUCOSAMINE-CHONDROITIN ORAL) Take by mouth. - mometasone (NASONEX) 50 mcg/actuation nasal spray Use 2 Sprays in the nose once daily. - amoxicillin (POLYMOX, AMOXIL) 500 mg capsule once daily. (Patient not taking: Reported on 03/31/2021 ) - predniSONE (DELTASONE) 5 mg tablet twice daily. (Patient not taking: Reported on 03/31/2021 ) No current facility-administered medications for this visit. ALLERGIES: Gluten; Peanuts; and Yeast, Dried PERSONAL HISTORY: Social History Tobacco Use - Smoking status: Never Smoker - Smokeless tobacco: Never Used Substance Use Topics - Alcohol use: No - Drug use: No FAMILY HISTORY: FAMILY HISTORY Problem Relation Age of Onset - other (negative [Other]) Unknown REVIEW OF SYMPTOMS: The review of systems data was entered by the nurse and reviewed by me Nursing Notes: Nora King GIANLUCA 03/31/2021 3:13 PM Signed REVIEW OF SYSTEMS: General: The patient denies fatigue, denies weight loss, denies weight gain, denies feeling hot, and denies feelings of cold. Eyes: The patient denies glaucoma, denies eye injury/surgery, wears glasses or contacts. Ear/Nose/Throat: The patient NOTES allergies, NOTES hayfever, denies ear infections, and denies bloody noses. Cardiovascular: The patient denies chest pain, denies heart disease, denies high blood pressure,denies cardiac stent, denies prior heart attack, denies irregular heart beat, denies high cholesterol, denies poor circulation, denies heart failure, other cardiac issues, denies claudication, denies cold feet, denies peripheral arterial stent. Respiratory: The patient denies tuberculosis, denies pneumonia, denies frequent cough, denies pulmonary embolism, NOTES shortness of breath, and denies coughing up blood. Gastrointestinal: The patient denies difficulty swallowing, NOTES acid reflux, denies ulcers, denies vomiting, denies jaundice/hepatitis, denies gallbladder problems, denies black or tarry stools, denies hemorrhoids, denies bleeding (more content not included)...[facility] note Author Eric Rios [facility] Note Date/Time February 20, 2025 11:1 6am [facility] Medical Records Department [address] [place] [address] Anesthesia Postop Eval I 02/20/25 1115 MR#: [id number] Acct: [id number] Name: CHARLOTTE BONILLADRICK ARIEL Rep #:[id number] : 1950 75 From: Eric Rios PCP: Dr. Ganga Acosta, DO Status:RE G [place]Goldie Y Race: C Location: [place] [address] Anesthesia: Postop Eval I Current Vital Signs Temperature: 97.5 F Pulse Rate: 75 Blood Pressure: 136/90 Respiratory Rate: 22 Pulse Ox: 93 Oxygen Delivery Method: Room Air Assessment Airway patent: Yes Spontaneous unlabored respirations: Yes Mental status: Asleep nausea: No Vomiting: No Anesthesia Complication: No Fluid Hydration Crystalloid volume administer (ml): 700 Total IV fluid infused: 700 Progress Note Anesthesia document: Postop Eval 1 completed: Yes 02/20/25 1116 <Electronically signed by Eric Rios > Date _ Eric Mancillaignjimmy Signature: Date CC: ~ Signed [facility] Work Phone: Consult note Author Patrick Lew [facility] Note Date/Time February 20, 2025 12:1 6pm [facility] Medical Records Department [address] [place] [id number] Anesthesia Postop Eval II 02/20/25 1147 MR#: [id number] Acct: [id number] Name: SHIVANI BONILLA ARIEL Rep #:[id number] : 1950 75 From: Patrick Lew MD PCP: Dr. Ganga Acosta, DO Status: G [facility] Race: C Location: [place] [address] Anesthesia Postop Eval I Sum Postop Eval Completion status Anesthesia document: Postop Eval 1 completed: Yes Anesthesia Postop Eval I Summary Anesthesia Postop Eval I Summary: Anesthesia Postop Eval I: Assessment Summary Airway patent Yes 02/20/25 11:16 [email or web address] Spontaneous unlabored Yes 02/20/25 11:16 [email or web address] respirations Mental status Asleep 02/20/25 11:16 [email or web address] nausea No 02/20/25 11:16 [email or web address] Vomiting No 02/20/25 11:16 [email or web address] Anesthesia Postop Eval I: Fluid Summary Crystalloid volume administer 700 02/20/25 11:16 [email or web address] (ml) Colloids volume administered ( ml) Blood Product volume administered (ml) Total IV fluid infused 700 02/20/25 11:16 [email or web address] Anesthesia Postop Eval I: Summary Notes Anesthesia Complication No 02/20/25 11:16 [email or web address] Anesthesia Complication Comment: Post-operative progress note Anesthesia: Postop Eval II Evaluation Mental status: Awake Pain Level: 0 nausea: No Vomiting: No 02/20/25 1147 <Electronically signed by Patrick Lew MD > Date _ Patrick Lew MD Cosigner Signature: Date CC: ~ Signed [facility] Work Phone: Evaluation + Plan note Future Appointments Appointment Date:09/03/2023 01:30:00 PM Scheduled Provider: Location:[facility] Appointment Type:PT Outpatient Evaluation [facility] Evaluation + Plan note Future Appointments Appointment Date:11/19/2023 01:00:00 PM Scheduled Provider: Location:[facility] Appointment Type:PT Outpatient Re-Evaluation Appointment Date:11/19/2023 01:00:00 PM Scheduled Provider: Location:[facility] Appointment Type:PT Treatment - [facility] Evaluation + Plan note Future Appointments Appointment Date:09/03/2023 10:00:00 AM Scheduled Provider: Location:[facility] Appointment Type:PT Outpatient Evaluation 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 Charcot's arthropathy chroni c Osteopenia chronic Polyneuropathy chronic [facility] Work Phone: Evaluation note* Diagnosis Charcot's arthropathy- Primary Tabes dorsalis Neuropathy Mononeuritis of unspecified site [facility]* Diagnosis Charcot's joint of right foot- Primary [facility]* Diagnosis Charcot's arthropathy- Primary Tabes dorsalis Neuropathy Mononeuritis of unspecified site Charcot's joint of right foot [facility]* Diagnosis Onset Date Resolution Status Asthma chronic Obesity (BMI 30.0-34.9) 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 Fatigue acute Charcot's arthropathy chroni c Polyneuropathy chronic Reactive arthritis of wrist acute Septic joint of right wrist acute [facility] Work Phone: Evaluation note* Diagnosis Charcot's arthropathy- Primary Tabes dorsalis Neuropathy Mononeuritis of unspecified site [facility]* Diagnosis Charcot's arthropathy Tabes dorsalis Neuropathy Mononeuritis of unspecified site [facility]* Diagnosis Charcot's arthropathy- Primary Tabes dorsalis 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 [facility] Work Phone: Evaluation note* Diagnosis Onset Date Resolution Status Asthma chronic Charcot's arthropathy chroni c Obesity (BMI 30.0-34.9) 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 [facility] Work Phone: Evaluation note* Diagnosis Charcot's joint of right foot- Primary [facility]* Diagnosis Dentalgia- Primary Unspecified disorder of the teeth and supporting structures Rheumatoid arthritis involving wrist with positive rheumatoid factor, unspecified laterality (HCC) History of prostate cancer Personal history of malignant neoplasm of prostate Extrinsic asthma, unspecified asthma severity, unspecified whether complicated, unspecified whether persistent Boil of buttock Carbuncle and furuncle of buttock Pre-operative clearance Unspecified pre-operative examination Colon cancer screening Special screening for malignant neoplasms, colon documented in this encounter [facility] note* Diagnosis Charcot's arthropathy Tabes dorsalis Neuropathy Mononeuritis of unspecified site documented in this encounter [facility] note* Diagnosis Encounter for subsequent annual wellness visit (AWV) in Medicare patient- Primary Rheumatoid arthritis involving wrist with positive rheumatoid factor, unspecified laterality (HCC) History of prostate cancer Personal history of malignant neoplasm of prostate Personal history of colonic polyps Primary osteoarthritis of right shoulder Pre-operative clearance Unspecified pre-operative examination Extrinsic asthma, unspecified asthma severity, unspecified whether complicated, unspecified whether persistent Routine general medical examination at health care facility Routine general medical examination at a health care facility documented in this encounter [facility] note* Diagnosis Ulcer of right foot with fat layer exposed (HCC)- Primary Cellulitis of right foot Cellulitis and abscess of foot, except toes Charcot's joint of right foot [facility]* Diagnosis Ulcer of right foot with fat layer exposed (HCC)- Primary Charcot's joint of right foot [facility]* Diagnosis Viral URI- Primary Acute upper respiratory infections of unspecified site documented in this encounter [facility] note* Diagnosis Charcot's joint of right foot- Primary Traumatic rupture of left anterior tibial tendon, initial encounter Left foot drop Other acquired deformity of ankle and foot [facility] Diagnosis Charcot's joint of right foot- Primary Left foot drop Other acquired deformity of ankle and foot [facility]* Diagnosis Charcot's joint of right foot- Primary Pain in left foot Pain in limb documented in this encounter [facility] note* Diagnosis Bronchitis- Primary Bronchitis, not specified as acute or chronic Bronchitis Bronchitis, not specified as acute or chronic documented in this encounter [facility] note* Diagnosis Bronchitis Bronchitis, not specified as acute or chronic documented in this encounter [facility] note* Diagnosis Charcot's joint of right foot- Primary Left foot drop Other acquired deformity of ankle and foot Pain in left foot Pain in limb [facility]* Diagnosis Left foot drop- Primary Other acquired deformity of ankle and foot Charcot's joint of right foot Charcot's arthropathy Tabes dorsalis Neuropathy Mononeuritis of unspecified site [facility]* Diagnosis Pain in left foot- Primary Pain in limb Charcot joint of left foot Displaced fracture of second metatarsal bone, left foot, initial encounter for closed fracture [facility]* Diagnosis Displaced fracture of second metatarsal bone, left foot, initial encounter for closed fracture- Primary Pain in left foot Pain in limb Charcot's arthropathy Tabes dorsalis Charcot joint of left foot [facility]* Diagnosis Viral URI- Primary Acute upper respiratory infections of unspecified site Charcot joint of right foot- Primary Allergic rhinitis, unspecified seasonality, unspecified trigger Extrinsic asthma, unspecified asthma severity, unspecified whether complicated, unspecified whether persistent History of systemic steroid therapy Personal history of systemic steroid therapy History of prostate cancer Personal history of malignant neoplasm of prostate Preoperative clearance Unspecified pre-operative examination Rheumatoid arthritis involving wrist with positive rheumatoid factor, unspecified laterality (HCC) documented in this encounter [facility] note* Diagnosis Displaced fracture of second metatarsal bone, left foot, initial encounter for closed fracture- Primary Pain in left foot Pain in limb Charcot joint of left foot [facility]* Diagnosis Pain in left foot- Primary Pain in limb Charcot joint of left foot Post-operative state Other postprocedural status [facility]* Diagnosis Postoperative state- Primary Other postprocedural status 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 (HCC) Neuropathy Mononeuritis of unspecified site [facility]* Diagnosis Acute left ankle pain- Primary Pain in left foot Pain in limb Postoperative state Other postprocedural status documented in this encounter [facility]* Diagnosis Pain in left foot- Primary Pain in limb Chronic pain of left ankle documented [facility] this encounter [facility]* Diagnosis Acute left ankle pain documented in this encounter [facility] note* Diagnosis Viral URI- Primary Acute upper respiratory infections of unspecified site Left foot pain- Primary Pain in soft tissues of limb Acute left ankle pain Arthritis of both feet documented in this encounter [facility] note* Diagnosis Chronic pain of left ankle documented in this encounter [facility] note* Diagnosis Chronic pain of left ankle- Primary Charcot's joint of right foot Pain in left foot Pain in limb Ulcer of toe of right foot, with fat layer exposed (HCC) documented in this encounter [facility] noteNo assessment information availableWBethesda North Hospital Work Phone: Evaluation note* Diagnosis Chronic pain of left ankle documented in this encounter [facility] note* Diagnosis Chronic pain of left ankle- Primary documented in this encounter [facility] note* Diagnosis Chronic pain of left ankle- Primary Neuropathy Mononeuritis of unspecified site Ulcer of toe of right foot, with fat layer exposed (HCC) Pain in left foot Pain in limb Charcot joint of left foot documented in this encounter [facility] note* Diagnosis Chronic left-sided low back pain with left-sided sciatica- Primary Low back pain, unspecified back pain laterality, unspecified chronicity, unspecified whether sciatica present Left foot drop Other acquired deformity of ankle and foot Chronic right-sided low back pain with right-sided sciatica Pain in left ankle and joints of left foot Polyneuropathy Unspecified hereditary and idiopathic peripheral neuropathy Spondylolisthesis, lumbar region documented in this encounter [facility] note* Diagnosis Low back pain, unspecified back pain laterality, unspecified chronicity, unspecified whether sciatica present Chronic left-sided low back pain with left-sided sciatica Left foot drop Other acquired deformity of ankle and foot Chronic right-sided low back pain with right-sided sciatica Pain in left ankle and joints of left foot Polyneuropathy Unspecified hereditary and idiopathic peripheral neuropathy Spondylolisthesis, lumbar region documented in this encounter [facility] note* Diagnosis Onset Date Resolution Status Admit Date History of colon polyps acute J marcus 2024 12:40pm [facility] Work Phone: Evaluation note* Diagnosis Low back pain, unspecified back pain laterality, unspecified chronicity, unspecified whether sciatica present- Primary Chronic pain of left ankle Neuropathy Mononeuritis of unspecified site Charcot joint of left foot documented in this encounter [facility] note* Diagnosis Spinal stenosis, lumbar region with neurogenic claudication Spondylolisthesis, lumbar region documented in this encounter [facility] note* Diagnosis Radiculopathy, lumbar region- Primary Thoracic or lumbosacral neuritis or radiculitis, unspecified documented [facility] this [facility]* Diagnosis Disturbance of skin sensation- Primary Low back pain, unspecified back pain laterality, unspecified chronicity, unspecified whether sciatica present Chronic left-sided low back pain with left-sided sciatica Left foot drop Other acquired deformity of ankle and foot Chronic right-sided low back pain with right-sided sciatica Pain in left ankle and joints of left foot Polyneuropathy Unspecified hereditary and idiopathic peripheral neuropathy Spondylolisthesis, lumbar region documented in this encounter [facility] note* Diagnosis Left leg pain- Primary Pain in limb Left leg pain Pain in limb documented in this encounter [facility] note* Diagnosis Ulcer of right foot with fat layer exposed (HCC)- Primary Chronic pain of left ankle documented in this encounter [facility] note* Diagnosis Chronic pain of left ankle documented in this encounter [facility] note* Diagnosis Spinal stenosis of lumbar region with neurogenic claudication- Primary Spinal stenosis, lumbar region, with neurogenic claudication documented in this encounter [facility] note* Diagnosis Viral URI- Primary Acute upper respiratory infections of unspecified site Poison norma- Primary Contact dermatitis and other eczema due to plants (except food) Sinus pain Other diseases of nasal cavity and sinuses [facility] Narrative No data available for this section [facility] Hospital Discharge instructions Additional Instructions Implant Used?: YesWBethesda North Hospital Work Phone: Hospital Discharge instructions No data available for this section [facility] Hospital Discharge instructions Additional Instructions Shoulder reduced. Continue sling and swath. Call Dr. Durand's office tomorrow for follow-up and reevaluation.[facility] Work Phone: Progress note No data available for this section [facility] Reason for referral (narrative)* Diagnostic Procedure Only (Routine) - Pending Review Specialty Diagnoses / Procedures Referred By Contac t Referred To Contact XR IMAGING Diagnoses Charcot's joint of right foot Procedures XR FOOT GENERAL 3V AP/LAT/OBL RIGHT RADEX FOOT COMPLETE MINIMUM 3 VIEWS Mckinley Guzman DPM [address] [place] [address] Xr Imaging Referral ID Status Reason Start Date Expiration Date Visits Requested Visits Authorized [id number] Pending Review Auto-Generat ed Referral 03/30/2022 04/29/2023 1 1 * Diagnostic Procedure Only (Routine) - Pending Review Specialty Diagnoses / Procedures Referred By Contac t Referred To Contact XR IMAGING Diagnoses Charcot's joint of right foot Procedures XR FOOT GENERAL 3V AP/LAT/OBL RIGHT RADEX FOOT COMPLETE MINIMUM 3 VIEWS Mckinley Guzman DPM [address] [place] [address] Xr Imaging Referral ID Status Reason Start Date Expiration Date Visits Requested Visits Authorized [id number] Pending Review Auto-Generat ed Referral 03/30/2022 04/29/2023 1 1 [facility] for referral (narrative)* Diagnostic Procedure Only (Routine) - New Request Specialty Diagnoses / Procedures Referred By Contac t Referred To Contact XR IMAGING Diagnoses Charcot's joint of right foot Procedures XR ANKLE 2V AP/LAT RIGHT RADIOLOGIC EXAMINATION ANKLE 2 VIEWS Mckinley Guzman DPM [address] [place] [address] [place] [address] Referral ID Status Reason Start Date Expiration Date Visits Requested Visits Authorized [id number] New Request Auto-Generat ed Referral 04/03/2024 05/03/2025 1 1 * Diagnostic Procedure Only (Routine) - New Request Specialty Diagnoses / Procedures Referred By Contac t Referred To Contact XR IMAGING Diagnoses Pain in left foot Procedures XR ANKLE 2V AP/LAT LEFT RADIOLOGIC EXAMINATION ANKLE 2 VIEWS Mckinley Guzman DPM [address] [place] [address] [place] [address] Referral ID Status Reason Start Date Expiration Date Visits Requested Visits Authorized [id number] New Request Auto-Generat ed Referral 04/03/2024 05/03/2025 1 1 * Diagnostic Procedure Only (Routine) - New Request Specialty Diagnoses / Procedures Referred By Contac t Referred To Contact XR IMAGING Diagnoses Charcot's joint of right foot Procedures XR FOOT GENERAL 3V AP/LAT/OBL RIGHT RADEX FOOT COMPLETE MINIMUM 3 VIEWS Mckinley Guzman DPM [address] [place] [address] [place] [address] Referral ID Status Reason Start Date Expiration Date Visits Requested Visits Authorized [id number] New Request Auto-Generat ed Referral 04/03/2024 05/03/2025 1 1 * Diagnostic Procedure Only (Routine) - New Request Specialty Diagnoses / Procedures Referred By Contac t Referred To Contact XR IMAGING Diagnoses Pain in left foot Procedures XR FOOT GENERAL 3V AP/LAT/OBL LEFT RADEX FOOT COMPLETE MINIMUM 3 VIEWS Mckinley Guzman DPM [address] [place] [address] [place] [address] Referral ID Status Reason Start Date Expiration Date Visits Requested Visits Authorized [id number] New Request Auto-Generat ed Referral 04/03/2024 05/03/2025 1 1 [facility] for referral (narrative)* Diagnostic Procedure Only (Routine) - New Request Specialty Diagnoses / Procedures Referred By Contac t Referred To Contact XR IMAGING Diagnoses Charcot joint of left foot Procedures XR FOOT GENERAL 3V AP/LAT/OBL LEFT RADEX FOOT COMPLETE MINIMUM 3 VIEWS Mckinley Guzman DPM [address] [place] [address] [place] [address] Referral ID Status Reason Start Date Expiration Date Visits Requested Visits Authorized [id number] New Request Auto-Generat ed Referral 4 07/24/2025 1 1 [facility] for referral (narrative)* Diagnostic Procedure Only (Routine) - New Request Specialty Diagnoses / Procedures Referred By Contac t Referred To Contact XR IMAGING Diagnoses Displaced fracture of second metatarsal bone, left foot, initial encounter for closed fracture Pain in left foot Procedures XR FOOT GENERAL 3V AP/LAT/OBL LEFT RADEX FOOT COMPLETE MINIMUM 3 VIEWS Mckinley Guzman DPM [address] [place] [address] [place] [address] Referral ID Status Reason Start Date Expiration Date Visits Requested Visits Authorized [id number] New Request Auto-Generat ed Referral 4 09/06/2025 1 1 [facility] for referral (narrative)* Diagnostic Procedure Only (Routine) - New Request Specialty Diagnoses / Procedures Referred By Contac t Referred To Contact XR IMAGING Diagnoses Post-operative state Procedures XR FOOT GENERAL 3V AP/LAT/OBL LEFT RADEX FOOT COMPLETE MINIMUM 3 VIEWS Mckinley Guzman DPM [address] [place] [address] [place] [address] Referral ID Status Reason Start Date Expiration Date Visits Requested Visits Authorized [id number] New Request Auto-Generat ed Referral 08/28/2024 09/27/2025 1 [facility] Diagnostic Procedure Only (Routine) - New Request Specialty Diagnoses / Procedures Referred By Contac t Referred To Contact XR IMAGING Diagnoses Postoperative state Procedures XR FOOT GENERAL 3V AP/LAT/OBL LEFT RADEX FOOT COMPLETE MINIMUM 3 VIEWS Mckinley Guzman DPM [address] [place] [address] [place] [address] Referral ID Status Reason Start Date Expiration Date Visits Requested Visits Authorized [id number] New Request Auto-Generat ed Referral 09/18/2024 10/18/[address] [facility] Diagnostic Procedure Only (Routine) - New Request Specialty Diagnoses / Procedures Referred By Contac t Referred To Contact XR IMAGING Diagnoses Postoperative state Procedures XR FOOT GENERAL 3V AP/LAT/OBL LEFT RADEX FOOT COMPLETE MINIMUM 3 VIEWS Mckinley Guzman DPM [address] [place] [address] [place] [address] Referral ID Status Reason Start Date Expiration Date Visits Requested Visits Authorized [id number] New Request Auto-Generat ed Referral 09/04/2024 10/04/2025 1 1 * Diagnostic Procedure Only (Routine) - New Request Specialty Diagnoses / Procedures Referred By Contac t Referred To Contact XR IMAGING Diagnoses Postoperative state Procedures XR FOOT GENERAL 3V AP/LAT/OBL RIGHT RADEX FOOT COMPLETE MINIMUM 3 VIEWS Mckinley Guzman DPM [address] [place] [address] [place] [address] Referral ID Status Reason Start Date Expiration Date Visits Requested Visits Authorized [id number] New Request Auto-Generat ed Referral 09/04/2024 10/04/[address] [facility])No reason for referral information availableWBethesda North Hospital Work Phone: Reason for visit Narrative* MRI/CT (Routine) - Closed Specialty Diagnoses / Procedures Referred By Janna albarado Referred To Contact MR IMAGING Diagnoses Acute left ankle pain Procedures MRI ANKLE WO IVCON LEFT MRI ANY JT LOWER EXTREM W/O CONTRAST MATRL Mckinley Guzman, DPM [address] [place] [address] Phone: tel: fax: [place] [address] Referral ID Status Reason Start Date Expiration Date V isits Requested Visits Authorized [id number] Closed Auto-Generate d Referral 10/30/2024 11/29/2025 1 1 [facility] for visit Narrative* MRI/CT (Routine) - Closed Specialty Diagnoses / Procedures Referred By Janna albarado Referred To Contact CT IMAGING Diagnoses Chronic pain of left ankle Procedures CT ANKLE WO IVCON LEFT CT LOWER EXTREMITY W/O CONTRAST MATERIAL Mckinley Guzman, DPM [address] [place] [address] Phone: tel: fax: [place] [address] Referral ID Status Reason Start Date Expiration Date V isits Requested Visits Authorized [id number] Closed Auto-Generate d Referral 01/15/2025 02/14/2026 1 1 [facility] for visit Narrative* MRI/CT (Routine) - Closed Specialty Diagnoses / Procedures Referred By Janna albarado Referred To Contact MR IMAGING Diagnoses Low back pain, unspecified back pain laterality, unspecified chronicity, unspecified whether sciatica present Chronic left-sided low back pain with left-sided sciatica Left foot drop Chronic right-sided low back pain with right-sided sciatica Pain in left ankle and joints of left foot Polyneuropathy Spondylolisthesis, lumbar region Procedures MRI LUMBAR SPINE WO IVCON MRI SPINAL CANAL LUMBAR W/O CONTRAST MATERIAL Shaan Mayorga, DO [address] [place] [address] Phone: tel: fax: [place] [address] Referral ID Status Reason Start Date Expiration Date V isits Requested Visits Authorized [id number] Closed Auto-Generate d Referral 02/03/2025 03/05/[address] [facility] Summary Purpose Family History No Family History Records Found Relationship Condition Age at Onset Recorded Date/T amanda mother Cardiac disease Unknown sister Hypertension Unknown Advance Directives No Advanced Directives Records Found Advance Directive Response Recorded Date/ Time Advance Directives Yes July 8:10am Living Will Yes September 09 4:16pm Power of Maintainer Central Office Yes September 09, 2021 4:16pm Advance Directive Response Recorded Date/ Time Name of Medical Power of Maintainer Central Office catherine farmer June 06, 2022 3:48am Advance Directives Yes July 8:10am Living Will Yes June 06 3:48am Power of Maintainer Central Office Yes June 06, 2022 3:48am Advance Directive Response Recorded Date/ Time Name of Medical Power of Maintainer Central Office catherine farmer June 06, 2022 2:48am Advance Directives Yes July 7:10am Living Will Yes June 06 2:48am Power of Maintainer Central Office Yes June 06, 2022 2:48am Advance Directive Response Recorded Date/ Time Name of Medical Power of Maintainer Central Office catherine farmer June 06, 2022 2:48am Advance Directives Yes July 7:10am Living Will No September 30, 023 10:07am Power of Maintainer Central Office No September 30, 2022 10:07am Advance Directive Response Recorded Date/ Time Name of Medical Power of Maintainer Central Office Julissa Bonilla October 30, 2022 11:08am Advance Directives Yes July 8:10am Living Will Yes October 30, 2022 11:08am Power of Maintainer Central Office Yes October 30 11:08am Advance Directive Response Recorded Date/ Time Living Will Yes November 09, 2024 4:18pm Do you have a Healthcare Pow er of Maintainer Central Office? Yes November 09, 2024 4:18pm Name of Medical Power of Maintainer Central Office julissa bonilla- November 09, 2024 4:18pm Advance Directives Yes July 8:10am Advance Directive Response Recorded Date/ Time Do you have a Healthcare Pow er of Maintainer Central Office? Yes February 19, 2025 8:47am Living Will Yes November 09, 2024 4:18pm Do you have a Healthcare Pow er of Maintainer Central Office? Yes November 09, 2024 4:18pm Name of Medical Power of Maintainer Central Office julissa bonilla- November 09, 2024 4:18pm Advance Directives Yes July 8:10am Advance Directive Response Recorded Date/ Time Living Will Yes October 30, 2022 11:08am Do you have a Healthcare Power of Maintainer Central Office? Yes October 30, 2022 11:08am Do you have a Healthcare Power of Maintainer Central Office? 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 1 M FU PARESTHESIA BOTH FEET PARESTHESIA BOTH FEET ASTHMA Asthma 4 M FU NEUROPATHY (FEET) EORDER Reason for Visit Asthma Obesity (BMI 30.0-34.9) KEZIA treated with BiPAP Asthma Asthma Obesity (BMI 30.0-34.9) KEZIA treated with BiPAP Charcot's arthropathy Osteopenia Polyneuropathy Chief Complaint ELEVATED LIVER ENZYM ES 3 M FU 4 M FU SEPTIC JOINT wrist injury SEPTIC JOINT Reason for Visit Asthma Obesity (BMI 30.0-34.9) KEZIA treated with BiPAP Fatigue Charcot's arthropathy Polyneuropathy Reactive arthritis of wrist Septic joint of right wrist Chief Complaint 4 M FU SEPTIC JOINT wrist injury SEPTIC JOINT EORDER PSA Reason for Visit Fatigue Charcot's arthropathy Polyneuropathy Reactive arthritis of wrist Septic joint of right wrist Chief Complaint SEPTIC JOINT wrist injury SEPTIC JOINT EORDER PSA 6 M FU GENERAL Reason for Visit Reactive arthritis o f wrist Septic joint of right wrist Asthma Charcot's arthropathy Obesity (BMI 30.0-34.9) KEZIA treated with BiPAP Chief Complaint PSA 6 M FU GENERAL RIGHT KIDNEY STONE PAIN,NAUSEA,VOMITING Reason for Visit Asthma Charcot's arthropathy Obesity (BMI 30.0-34.9) KEZIA treated with BiPAP Chief Complaint Admit Date Shortness of breath July 16, 2024 1 :47pm KEZIA September 10, 2024 1 :31pm DISLOCATION November 09, 2024 3:5 2pm Reason for Visit Admit Date Moderate persistent allergic asthma with out complication July 16, 2024 1:47pm Chief Complaint Admit Date DISLOCATION November 09, 2024 3:5 2pm PSA January 13, 2025 11:50 am Chief Complaint Admit Date DISLOCATION November 09, 2024 3:5 2pm PSA January 13, 2025 11:50 am RECALL COLONOSCOPY February 10, 2025 12:40 pm Reason for Visit Admit Date History of colon polyps February 10, 2025 1 2:40pm Chief Complaint Admit Date PSA January 13, 2025 11:50 am RECALL COLONOSCOPY February 10, 2025 12:40 pm 1 Y FU April 02, 2025 1: 09pm Reason for Referral Specialty Diagnoses / Procedures Referred By Janna albarado Referred To Contact Diagnoses Charcot's arthropathy Neuropathy Procedures CONSULT TO ORTHOTIC/PROSTHETIC Mckinley Guzman DPM [address] [facility] [address] [place] [address] Referral ID Status Reason Start Date Expiration Date V isits Requested Visits Authorized [id number] Ref Not Required 06/01/2022 07/31/2022 1 1 Additional Source Comments (unrecognized sect ion and content) No Status Records FoundNo Status Records FoundNo Status Records FoundNo Status Records FoundNo Status Records FoundNo Status Records FoundNo Status Records FoundNo Status Records Found INFORMATION SOURCE (unrecogn ized section and content) DATE CREATED AUTHOR 07/27/2018 [employer] [facility] [employer] DATE CREATED AUTHOR AUTHOR'S ORGANIZ ATION 09/07/[address] [facility] DATE CREATED AUTHOR AUTHOR'S ORGANIZ ATION 01/25/2024 [facility]) DATE CREATED AUTHOR AUTHOR'S ORGANIZ ATION 02/02/2025 [facility] DATE CREATED AUTHOR AUTHOR'S ORGANIZ ATION 02/07/2025 [facility] DATE CREATED AUTHOR AUTHOR'S ORGANIZ ATION 04/04/2025 [facility] DATE CREATED AUTHOR AUTHOR'S ORGANIZ ATION 04/26/2025 [facility] DATE CREATED AUTHOR AUTHOR'S ORGANIZ ATION 04/28/[address] [employer] [facility] [employer] [facility] Goals (unrecognized section and content) Goals may be documented in a n alternate section No data available for this section No data available for this section No data available for this section No data available for this section No data available for this sectionGoals may be documented in an alternate sectionGoals may be documented in an alternate section No data available for this sectionGoals may be documented in an alternate section Source Comments (unrecognize d section and content) In the event this informatio n is protected by the Federal Confidentiality of Alcohol and Drug Abuse Patient Records regulations: The Federal rules restrict any use of the information to criminally investigate or prosecute any alcohol or drug abuse patient.[facility] the event this information is protected by the Federal Confidentiality of Alcohol and Drug Abuse Patient Records regulations: The Federal rules restrict any use of the information to criminally investigate or prosecute any alcohol or drug abuse patient.[facility] the event this information is protected by the Federal Confidentiality of Alcohol and Drug Abuse Patient Records regulations: The Federal rules restrict any use of the information to criminally investigate or prosecute any alcohol or drug abuse patient.[facility] the event this information is protected by the Federal Confidentiality of Alcohol and Drug Abuse Patient Records regulations: The Federal rules restrict any use of the information to criminally investigate or prosecute any alcohol or drug abuse patient.[facility] the event this information is protected by the Federal Confidentiality of Alcohol and Drug Abuse Patient Records regulations: The Federal rules restrict any use of the information to criminally investigate or prosecute any alcohol or drug abuse patient.[facility] the event this information is protected by the Federal Confidentiality of Alcohol and Drug Abuse Patient Records regulations: The Federal rules restrict any use of the information to criminally investigate or prosecute any alcohol or drug abuse patient.[facility] the event this information is protected by the Federal Confidentiality of Alcohol and Drug Abuse Patient Records regulations: The Federal rules restrict any use of the information to criminally investigate or prosecute any alcohol or drug abuse patient.[facility] the event this information is protected by the Federal Confidentiality of Alcohol and Drug Abuse Patient Records regulations: The Federal rules restrict any use of the information to criminally investigate or prosecute any alcohol or drug abuse patient.[facility] the event this information is protected by the Federal Confidentiality of Alcohol and Drug Abuse Patient Records regulations: The Federal rules restrict any use of the information to criminally investigate or prosecute any alcohol or drug abuse patient.[facility] the event this information is protected by the Federal Confidentiality of Alcohol and Drug Abuse Patient Records regulations: The Federal rules restrict any use of the information to criminally investigate or prosecute any alcohol or drug abuse patient.[facility] CampusIn the event this information is protected by the Federal Confidentiality of Alcohol and Drug Abuse Patient Records regulations: The Federal rules restrict any use of the information to criminally investigate or prosecute any alcohol or drug abuse patient.[facility] CampusIn the event this information is protected by the Federal Confidentiality of Alcohol and Drug Abuse Patient Records regulations: The Federal rules restrict any use of the information to criminally investigate or prosecute any alcohol or drug abuse patient.[facility] CampusIn the event this information is protected by the Federal Confidentiality of Alcohol and Drug Abuse Patient Records regulations: The Federal rules restrict any use of the information to criminally investigate or prosecute any alcohol or drug abuse patient.[facility] CampusIn the event this information is protected by the Federal Confidentiality of Alcohol and Drug Abuse Patient Records regulations: The Federal rules restrict any use of the information to criminally investigate or prosecute any alcohol or drug abuse patient.[facility] CampusIn the event this information is protected by the Federal Confidentiality of Alcohol and Drug Abuse Patient Records regulations: The Federal rules restrict any use of the information to criminally investigate or prosecute any alcohol or drug abuse patient.[facility] CampusIn the event this information is protected by the Federal Confidentiality of Alcohol and Drug Abuse Patient Records regulations: The Federal rules restrict any use of the information to criminally investigate or prosecute any alcohol or drug abuse patient.[facility] CampusIn the event this information is protected by the Federal Confidentiality of Alcohol and Drug Abuse Patient Records regulations: The Federal rules restrict any use of the information to criminally investigate or prosecute any alcohol or drug abuse patient.[facility] CampusIn the event this information is protected by the Federal Confidentiality of Alcohol and Drug Abuse Patient Records regulations: The Federal rules restrict any use of the information to criminally investigate or prosecute any alcohol or drug abuse patient.[facility] CampusIn the event this information is protected by the Federal Confidentiality of Alcohol and Drug Abuse Patient Records regulations: The Federal rules restrict any use of the information to criminally investigate or prosecute any alcohol or drug abuse patient.[facility] CampusIn the event this information is protected by the Federal Confidentiality of Alcohol and Drug Abuse Patient Records regulations: The Federal rules restrict any use of the information to criminally investigate or prosecute any alcohol or drug abuse patient.[facility] CampusIn the event this information is protected by the Federal Confidentiality of Alcohol and Drug Abuse Patient Records regulations: The Federal rules restrict any use of the information to criminally investigate or prosecute any alcohol or drug abuse patient.[facility] [place] CampusIn the event this information is protected by the Federal Confidentiality of Alcohol and Drug Abuse Patient Records regulations: The Federal rules restrict any use of the information to criminally investigate or prosecute any alcohol or drug abuse patient.[facility] [place] CampusIn the event this information is protected by the Federal Confidentiality of Alcohol and Drug Abuse Patient Records regulations: The Federal rules restrict any use of the information to criminally investigate or prosecute any alcohol or drug abuse patient.[facility] [place] CampusIn the event this information is protected by the Federal Confidentiality of Alcohol and Drug Abuse Patient Records regulations: The Federal rules restrict any use of the information to criminally investigate or prosecute any alcohol or drug abuse patient.[facility] [place] CampusIn the event this information is protected by the Federal Confidentiality of Alcohol and Drug Abuse Patient Records regulations: The Federal rules restrict any use of the information to criminally investigate or prosecute any alcohol or drug abuse patient.[facility] [place] CampusIn the event this information is protected by the Federal Confidentiality of Alcohol and Drug Abuse Patient Records regulations: The Federal rules restrict any use of the information to criminally investigate or prosecute any alcohol or drug abuse patient.[facility] [place] CampusIn the event this information is protected by the Federal Confidentiality of Alcohol and Drug Abuse Patient Records regulations: The Federal rules restrict any use of the information to criminally investigate or prosecute any alcohol or drug abuse patient.[facility] [place] CampusIn the event this information is protected by the Federal Confidentiality of Alcohol and Drug Abuse Patient Records regulations: The Federal rules restrict any use of the information to criminally investigate or prosecute any alcohol or drug abuse patient.[facility] [place] CampusIn the event this information is protected by the Federal Confidentiality of Alcohol and Drug Abuse Patient Records regulations: The Federal rules restrict any use of the information to criminally investigate or prosecute any alcohol or drug abuse patient.[facility] [place] CampusIn the event this information is protected by the Federal Confidentiality of Alcohol and Drug Abuse Patient Records regulations: The Federal rules restrict any use of the information to criminally investigate or prosecute any alcohol or drug abuse patient.[facility] [place] CampusIn the event this information is protected by the Federal Confidentiality of Alcohol and Drug Abuse Patient Records regulations: The Federal rules restrict any use of the information to criminally investigate or prosecute any alcohol or drug abuse patient.[facility] [place] CampusIn the event this information is protected by the Federal Confidentiality of Alcohol and Drug Abuse Patient Records regulations: The Federal rules restrict any use of the information to criminally investigate or prosecute any alcohol or drug abuse patient.[facility] [place] CampusIn the event this information is protected by the Federal Confidentiality of Alcohol and Drug Abuse Patient Records regulations: The Federal rules restrict any use of the information to criminally investigate or prosecute any alcohol or drug abuse patient.[facility] [place] CampusIn the event this information is protected by the Federal Confidentiality of Alcohol and Drug Abuse Patient Records regulations: The Federal rules restrict any use of the information to criminally investigate or prosecute any alcohol or drug abuse patient.[facility] [place] CampusIn the event this information is protected by the Federal Confidentiality of Alcohol and Drug Abuse Patient Records regulations: The Federal rules restrict any use of the information to criminally investigate or prosecute any alcohol or drug abuse patient.[facility] [place] CampusIn the event this information is protected by the Federal Confidentiality of Alcohol and Drug Abuse Patient Records regulations: The Federal rules restrict any use of the information to criminally investigate or prosecute any alcohol or drug abuse patient.[facility] [place] CampusIn the event this information is protected by the Federal Confidentiality of Alcohol and Drug Abuse Patient Records regulations: The Federal rules restrict any use of the information to criminally investigate or prosecute any alcohol or drug abuse patient.[facility] [place] CampusIn the event this information is protected by the Federal Confidentiality of Alcohol and Drug Abuse Patient Records regulations: The Federal rules restrict any use of the information to criminally investigate or prosecute any alcohol or drug abuse patient.[facility] [place] CampusIn the event this information is protected by the Federal Confidentiality of Alcohol and Drug Abuse Patient Records regulations: The Federal rules restrict any use of the information to criminally investigate or prosecute any alcohol or drug abuse patient.[facility] [place] CampusIn the event this information is protected by the Federal Confidentiality of Alcohol and Drug Abuse Patient Records regulations: The Federal rules restrict any use of the information to criminally investigate or prosecute any alcohol or drug abuse patient.[facility] [place] CampusIn the event this information is protected by the Federal Confidentiality of Alcohol and Drug Abuse Patient Records regulations: The Federal rules restrict any use of the information to criminally investigate or prosecute any alcohol or drug abuse patient.[facility] [place] CampusIn the event this information is protected by the Federal Confidentiality of Alcohol and Drug Abuse Patient Records regulations: The Federal rules restrict any use of the information to criminally investigate or prosecute any alcohol or drug abuse patient.[facility] [place] CampusIn the event this information is protected by the Federal Confidentiality of Alcohol and Drug Abuse Patient Records regulations: The Federal rules restrict any use of the information to criminally investigate or prosecute any alcohol or drug abuse patient.[facility] [place] CampusIn the event this information is protected by the Federal Confidentiality of Alcohol and Drug Abuse Patient Records regulations: The Federal rules restrict any use of the information to criminally investigate or prosecute any alcohol or drug abuse patient.[facility] [place] [facility] Reason for Visit (unrecogniz ed section and content) Reason Comments Appointment Reason Comments Follow Up Pain Reason Comments Follow Up Reason Comments Follow Up Reason Comments Follow Up Reason Comments surgical clearance Reason Comments Refill Request Reason Comments Medicare Annual Wellness Visit Subsequen t Reason Comments Established Patient Follow Up Reason Comments Sinus Problem Reason Comments Established Patient Pain Reason Comments Follow Up Pain Reason Onset Date Comments URI 05/12/2024 Reason Comments Sinus Problem For about 2 weeks, c oughing lots Flu Vaccine Patient has declined to receive influenza vaccine in the office. Reason Comments Established Patient Pain Reason Comments Other Surgical clearance L eft foot second toe surgery on 08/18/23 Reason Comments Preparations For Surgery Reason Comments Follow Up Pain New Established Patient Reason Onset Date Comments Other 08/07/2024 Surgical clearan ce Reason Comments Post Op Swelling Numbness Reason Comments Post Op Reason Comments Post Op Reason Comments Follow Up Pain Post Op Reason Comments New Patient Left ankle pain sinc e fall 2023 Reason Comments Follow Up Pain Reason Comments Follow Up Pain Reason Comments New Pain Reason Comments Established Patient Follow Up Pain Specialty Diagnoses / Procedures Referred By Contlaura t Referred To Contact Sports Medicine Diagnoses Chronic pain of left ankle Neuropathy Procedures CONSULT TO ORTHOPAEDICS OFFICE/OUTPATIENT NEW HIGH MDM 60 MINUTES Mckinley Guzman DPM [address] [address] Phone: tel: fax: Shaan Mayorga, DO [address] [place] [address] Phone: tel: fax: Referral ID Status Reason Start Date Expiration Date V isits Requested Visits Authorized [id number] Closed PCP Requested Referral 01/29/2025 04/29/2025 1 1 Reason Comments New A lot of pain in the left ankle and decided that it is coming from lower backCan tolerate for about 5 min and then it is too painfulIssues for about 6 monthsPain radiates from the lt buttocks and radiates down the leg Reason Comments EMG Specialty Diagnoses / Procedures Referred By Janna albarado Referred To Contact Physical Medicine and Rehab / PAIN MANAGEMENT Diagnoses Low back pain, unspecified left ankle, EMG Procedures NEEDLE EMG EA EXTREMTY W/PARASPINL AREA COMPLETE NERVE CONDUCTION STUDIES 11-12 STUDIES EMG SINGLE ELIJAH BROTHERS [address] [facility] [address] [place] [address] Phone: tel: fax: Brit Noyola DO [address] [place] [address] Phone: tel: fax: Referral ID Status Reason Start Date Expiration Date Visits Re quested Visits Authorized [id number] Closed 08/13/2024 08/12/2025 1 1 Reason Comments Established Patient Follow Up Results - Ct Wound Care Reason Onset Date Comments Refill Request 04/14/2025 Reason Comments Established Patient Reason Onset Date Comments Cough 04/27/2025 Care Teams (unrecognized sec tion and content) Director Staffing Relationship Specialty Start Date End Date Ganga Acosta [address] [address] PCP - General Family Practice 10/01/15 Director Staffing Relationship Specialty Start Date End Date Ganga Acosta [address] [address] PCP - General Family Practice 10/01/15 Director Staffing Relationship Specialty Start Date End Date Ganga Acosta [address] [place] [id number] PCP - General Family Practice 10/01/15 Director Staffing Relationship Specialty Start Date End Date Ganga Acosta [address] [place] [id number] PCP - General Family Medicine 10/01/15 Director Staffing Relationship Specialty Start Date End Date Ganga Acosta [address] [place] [id number] PCP - General Family Medicine 10/01/15 Director Staffing Relationship Specialty Start Date End Date Ganga Acosta [address] [place] [address] PCP - General Family Medicine 10/01/15 Director Staffing Relationship Specialty Start Date End Date Ganga Acosta [address] [place] [id number] PCP - General Family Medicine 10/01/15 Director Staffing Relationship Specialty Start Date End Date Ganga Acosta [address] [place] [id number] PCP - General Family Medicine 10/01/15 Team Status: Active Member Role Status Dates Dr. Ganga Acosta DO Family Provider Active Dr. Ganag Acosta , DO Primary Care Provider Active Team Status: Inactive Member Role Status Dates Dr. Ganga Acosta DO Primary Care Provider Active Dr. Delroy Tinajero MD Attending Provider, Referring Provider Active Team Status: Active Member Role Status Dates Dr. Ganga Acosta DO Primary Care Provider Active Dr. Joel Solorzano MD Emergency Provider Active Dr. Ayan Miller , Attending Provider Active Team Status: Active Member Role Status Dates Dr. Ganga Acosta DO Primary Care Provider Active Dr. Joel Solorzano MD Emergency Provider Active Dr. Ayan Miller , Admit Provider, Other Provider A ctive Dr. Rc Cordova MD Other Provider Active Dr. Jean-Paul Gomes MD Other Provider Active Dr. Eri Vega MD Attending Provider, Other Provider Active Team Status: Inactive Member Role Status Dates Dr. Ganga Acosta DO Primary Care Provider Active Dr. Joel Solorzano MD Emergency Provider Active Dr. Ayan Miller DO Admit Provider, Other Provider A ctive Dr. Rc Cordova MD Other Provider Active Dr. Jean-Paul Gomes MD Other Provider Active Dr. Eri Vega MD Attending Provider Active Team Status: Inactive Member Role Status Dates Dr. Ganga Acosta DO Primary Care Provider Active Dr. Nelson Mayorga MD Attending Provider, Referr ing Provider Active Team Status: Inactive Member Role Status Dates Dr. Ganga Acosta DO Primary Care Provider, Referr ing Provider Active Dr. Miky Fonseca MD Attending Provider Active Team Status: Inactive Member Role Status Dates Dr. Ganga Acosta DO Primary Care Provider Active Dr. Ayan Bonds DO Emergency Provider Active Team Status: Inactive Member Role Status Dates Dr. Ganga Acosta DO Primary Care Provider Active Dr. Ayan Bonds DO Attending Provider, Emergency P rovider Active Team Status: Inactive Member Role Status Dates Dr. Ganga Acosta DO Primary Care Provider Active Dr. Nelson Mayorga MD Admit Provid er, Attending Provider, Referring Provider Active Director Staffing Relationship Specialty Start Date End Date Ganga Acosta [address] [place] [address] PCP - General Family Medicine 10/01/15 Director Staffing Relationship Specialty Start Date End Date Ganga Acosta DO [address] [place] [address] PCP - General 04/05/15 Director Staffing Relationship Specialty Start Date End Date Ganga Acosta [address] [place] [address] PCP - General Family Medicine 10/01/15 Director Staffing Relationship Specialty Start Date End Date Ganga Acosta DO [address] [place] [address] PCP - General 04/05/15 Director Staffing Relationship Specialty Start Date End Date Ganga Acosta, DO [address] [place], [place] [id number] PCP - General Family Medicine 10/01/15 Director Staffing Relationship Specialty Start Date End Date GilmarGanga briones, DO [address] [place], [place] [id number] PCP - General Family Medicine 10/01/15 Director Staffing Relationship Specialty Start Date End Date KarlaGanga, DO [address] [place] [address] PCP - General 04/05/15 Director Staffing Relationship Specialty Start Date End Date GilmardoloresfernieGanga, DO [address] [place], [place] [id number] PCP - General Family Medicine 10/01/15 Director Staffing Relationship Specialty Start Date End Date GilmarGanga briones, DO [address] [place], [place] [id number] PCP - General Family Medicine 10/01/15 Director Staffing Relationship Specialty Start Date End Date KarlaGanga, DO [address] [place] [address] PCP - General 04/05/15 Director Staffing Relationship Specialty Start Date End Date KarlaGanga, DO [address] [place] [id number] PCP - General 04/05/15 Director Staffing Relationship Specialty Start Date End Date Ganga Acosta Vidal DO [address] [place] [address] PCP - General Family Medicine 10/01/15 Director Staffing Relationship Specialty Start Date End Date Ganga Acosta Vidal DO [address] [place] [address] PCP - General Family Medicine 10/01/15 Director Staffing Relationship Specialty Start Date End Date Ganga Acosta, DO [address] [place] [address] PCP - General Family Medicine 10/01/15 Director Staffing Relationship Specialty Start Date End Date Ganga Acosta, DO [address] [place] [address] PCP - General Family Medicine 10/01/15 Director Staffing Relationship Specialty Start Date End Date Ganga Acosta, DO [address] [place] [address] [address] [place] [id number] PCP - General 04/05/15 Director Staffing Relationship Specialty Start Date End Date Ganga Acosta Vidal, DO [address] [place] [address] PCP - General Family Medicine 10/01/15 Director Staffing Relationship Specialty Start Date End Date Ganga Acosta DO [address] [place] [address] PCP - General Family Medicine 10/01/15 Director Staffing Relationship Specialty Start Date End Date Ganga Acosta DO [address] [place] [address] PCP - General Family Medicine 10/01/15 Director Staffing Relationship Specialty Start Date End Date Ganga Acosta DO [address] [place] [address] PCP - General Family Medicine 10/01/15 Director Staffing Relationship Specialty Start Date End Date Ganga Acosta DO [address] [place], [place] [id number] PCP - General Family Medicine 10/01/15 Director Staffing Relationship Specialty Start Date End Date Ganga Acosta DO [address] [place], [place] [id number] PCP - General Family Medicine 10/01/15 Team Status: Active Member Role Status Dates Dr. Ganga Acosta DO Primary Care Provider Active Team Status: Inactive Member Role Status Dates Dr. Ganga Acosta DO Primary Care Provider Active Start: July 16, 2024 End: July 16, 2024 Dr. Ganga Acosta DO Referring Provider Active Start: July 16, 2024 End: July 16, 2024 Leia Johnson RN LPN LVN, RN LPN LVN-C Attending Provider Active Start: July 16, 2024 End: July 16, 2024 Team Status: Inactive Member Role Status Dates Dr. Ganga Acosta DO Primary Care Provider Active Start: September 10, 2024 End: September 10, 2024 Leia Johnson RN LPN LVN, RN LPN LVN-C Attending Provider Active Start: September 10, 2024 End: September 10, 2024 Team Status: Inactive Member Role Status Dates Dr. Ganga Acosta DO Primary Care Provider Active Start: November 09, 2024 End: November 09, 2024 Dr. Walter Gallagher DO Emergency Provider Active Start : November 09, 2024 End: November 09, 2024 Director Staffing Relationship Specialty Start Date End Date Ganga Acosta DO [address] [place] [id number] PCP - General 04/05/15 Director Staffing Relationship Specialty Start Date End Date Ganga Acosta DO [address] [place] [address] PCP - General Family Medicine 10/01/15 Team Status: Inactive Member Role Status Dates Dr. Ganga Acosta DO Primary Care Provider Active Start: November 09, 2024 End: November 09, 2024 Dr. Walter Gallagher DO Attending Provider Active Start : November 09, 2024 End: November 09, 2024 Dr. Walter Gallagher DO Emergency Provider Active Start : November 09, 2024 End: November 09, 2024 Team Status: Inactive Member Role Status Dates Dr. Ganga Acosta DO Primary Care Provider Active Start: January 13, 2025 End: January 13, 2025 Dr. Nelson Mayorga MD Attending Provider Active Start: January 13, 2025 End: January 13, 2025 Dr. Nelson Mayorga MD Referring Provider Active Start: January 13, 2025 End: January 13, 2025 Director Staffing Relationship Specialty Start Date End Date Ganga Acosta, [address] [place] [address] PCP - General Family Medicine 10/01/15 Director Staffing Relationship Specialty Start Date End Date Ganga Acosta, DO [address] [place] [address] PCP - General Family Medicine 10/01/15 Director Staffing Relationship Specialty Start Date End Date Ganga cAosta DO [address] [place] [address] PCP - General Family Medicine 10/01/15 Director Staffing Relationship Specialty Start Date End Date Ganga Acosta DO [address] [place] [address] PCP - General Family Medicine 10/01/15 Team Status: Active Member Role/Relationship Status Dates Dr. Ganga Acosta DO Primary Care Provider Active Team Status: Inactive Member Role/Relationship Status Dates Dr. Ganga Acosta DO Primary Care Provider Active Start: November 09, 2024 End: November 09, 2024 Dr. Walter Gallagher DO Attending Provider Active Start : November 09, 2024 End: November 09, 2024 Dr. Walter Gallagher DO Emergency Provider Active Start : November 09, 2024 End: November 09, 2024 Team Status: Inactive Member Role/Relationship Status Dates Dr. Ganga Acosta DO Primary Care Provider Active Start: January 13, 2025 End: January 13, 2025 Dr. Nelson Mayorga MD Attending Provider Active Start: January 13, 2025 End: January 13, 2025 Dr. Nelson Mayorga MD Referring Provider Active Start: January 13, 2025 End: January 13, 2025 Team Status: Inactive Member Role/Relationship Status Dates Dr. Ganga Acosta DO Primary Care Provider Active Start: February 10, 2025 End: February 10, 2025 Dr. Gagna Acosta DO Referring Provider Active Start: February 10, 2025 End: February 10, 2025 Dr. Esteban Eugene MD Attending Provider Active Start: February 10, 2025 End: February 10, 2025 Director Staffing Relationship Specialty Start Date End Date Ganga Acosta DO [address] [place] [address] PCP - General Family Medicine 10/01/15 Director Staffing Relationship Specialty Start Date End Date Ganga Acosta DO [address] [place] [address] PCP - General Family Medicine 10/01/15 Team Status: Inactive Member Role/Relationship Status Dates Dr. Ganga Acosta DO Primary Care Provider Active Start: February 20, 2025 End: February 20, 2025 Dr. Ganga Acosta DO Referring Provider Active Start: February 20, 2025 End: February 20, 2025 Dr. Esteban Eugene MD Attending Provider Active Start: February 20, 2025 End: February 20, 2025 Team Status: Active Member Role/Relationship Status Dates Dr. Ganga Acosta DO Primary Care Provider Active Start: February 20, 2025 Dr. Ganga Acosta DO Referring Provider Active Start: February 20, 2025 Dr. Esteban Eugene MD Attending Provider Active Start: February 20, 2025 Dr. Esteban Eugene MD Other Provider Active Start: February 20, 2025 Director Staffing Relationship Specialty Start Date End Date Ganga Acosta DO [address] [place] [address] PCP - General Family Medicine 10/01/15 Director Staffing Relationship Specialty Start Date End Date Ganga Acosta DO [address] [place] [address] PCP - General Family Medicine 10/01/15 Team Status: Inactive Member Role/Relationship Status Dates Dr. Ganga Acosta DO Primary Care Provider Active Start: January 13, 2025 End: January 13, 2025 Dr. Nelson Mayorga MD Attending Provider Active Start: January 13, 2025 End: January 13, 2025 Dr. Nelson Mayorga MD Referring Provider Active Start: January 13, 2025 End: January 13, 2025 Team Status: Inactive Member Role/Relationship Status Dates Dr. Ganga Acosta DO Primary Care Provider Active Start: February 10, 2025 End: February 10, 2025 Dr. Ganga Acosta DO Referring Provider Active Start: February 10, 2025 End: February 10, 2025 Dr. Esteban Eugene MD Attending Provider Active Start: February 10, 2025 End: February 10, 2025 Team Status: Inactive Member Role/Relationship Status Dates Dr. Ganga Acosta DO Primary Care Provider Active Start: February 20, 2025 End: February 20, 2025 Dr. Ganga Acosta DO Referring Provider Active Start: February 20, 2025 End: February 20, 2025 Dr. Esteban Eugene MD Attending Provider Active Start: February 20, 2025 End: February 20, 2025 Team Status: Active Member Role/Relationship Status Dates Dr. Ganga Acosta DO Primary Care Provider Active Start: February 20, 2025 Dr. Ganga Acosta DO Referring Provider Active Start: February 20, 2025 Dr. Esteban Eugene MD Attending Provider Active Start: February 20, 2025 Dr. Esteban Eugene MD Other Provider Active Start: February 20, 2025 Team Status: Inactive Member Role/Relationship Status Dates Dr. Ganga Acosta DO Primary Care Provider Active Start: April 02, 2025 End: April 02, 2025 Dr. Ganga Acosta DO Referring Provider Active Start: April 02, 2025 End: April 02, 2025 Leia Johnson RN LPN LVN, RN LPN LVN-C Attending Provider Active Start: April 02, 2025 End: April 02, 2025 Director Staffing Relationship Specialty Start Date End Date Ganga Acosta DO [address] [place] [address] PCP - General Family Medicine 10/01/15 Director Staffing Relationship Specialty Start Date End Date Ganga Acosta DO [address] [place] [address] PCP - General Family Medicine 10/01/15 Director Staffing Relationship Specialty Start Date End Date Ganga Acosta DO [address] [place] [address] PCP - General 04/05/15 FOR RECORDS PERTAINING TO PATIENTS WHO ARE OR HAVE BEEN ENROLLED IN A CHEMICAL DEPENDENCY/SUBSTANCEABUSE PROGRAM, SOME INFORMATION MAY BE OMITTED. This clinical summary was aggregated from multiple sources. Caution should be exercised in using it in the provision of clinical care. This summary normalizes information from multiple sources, and as a consequence, information in this document may materially change the coding, format and clinical context of patient data. In addition, data may be omitted in some cases. CLINICAL DECISIONS SHOULD BE BASED ON THE PRIMARY CLINICAL RECORDS. [employer] [facility]. provides no warranty or guarantee of the accuracy or completeness of information in this document.
[2025-05-07] MEDS: 0.9% Normal Saline (1000mL) 1,000 ML 999 ML IV (00:28)
--- NOTE | 2025-05-07 00:35 | RAD_ITS ---
PROCEDURE: SHOULDER MIN 2 VIEWS 05/07/2025 REASON FOR EXAM: DISLOCATION TECHNIQUE: Procedure Code: RADSH Modality: DX Procedure: SHOULDER MIN 2 VIEWS Laterality: COMPARISON: 11/09/2024. FINDINGS: Changes from prior shoulder arthroplasty, unchanged. Complete anterior/inferior dislocation of the humeral head metallic prosthesis in relation to the glenoid cavity. No fracture is identified. No lytic or blastic aggressive bone lesion is identified. RAD/Shoulder min 2 Views IMPRESSION: Changes from prior shoulder arthroplasty, unchanged. Complete anterior/inferior dislocation of the humeral head metallic prosthesis in relation to the glenoid cavity. No fracture is identified. Reading [facility]
--- NOTE | 2025-05-07 02:15 | RAD_ITS ---
EXAM: RIGHT SHOULDER. CLINICAL HISTORY: FOLLOW-UP EXAM. COMPARISON: RADIOGRAPH ON 05/07/2025. TECHNIQUE: THREE VIEWS. FINDINGS: Complete reduction of the previously described dislocation of the humeral head in relation to the glenoid cavity. Good alignment is noted on the current exam. Unremarkable metallic prosthesis. RAD/Shoulder min 2 Views IMPRESSION: Good alignment is noted on the current exam. Reading Location: [place]
--- NOTE | 2025-05-07 05:28 | EX.ED.DYSGE1 ---
HPI History of Present Illness Chief Complaint: Dislocation Informant: patient and spouse/S.O. Narrative Narrative: Patient is a 75-year-old male with past medical history of rheumatoid arthritis BPH hyperlipidemia obstructive sleep apnea and previous right shoulder replacement. He states that despite the shoulder replacement it has dislocated 2 previous time. He states roughly an hour prior to arrival he was simply setting a plate down next to his side and his arm/shoulder dislocated. He denies any trauma or heavy lifting/excessive activity. He states this feels similar nature to his previous dislocation. Therefore as he is concerned he will need the shoulder reduced he presents for evaluation [facility] Medical History Open wound Ambulates with cane Amputation toe History of pain when walking Polyneuropathy Cancer Fatigue Skin cancer Glaucoma Carpal tunnel syndrome Cataracts, bilateral Wears glasses Cancer History of steroid therapy Arthritis Kidney stones Gastric reflux Non-smoker CPAP (continuous positive airway pressure) dependence Sleep apnea Shortness of breath on exertion History of echocardiogram History of stress test Cardiology follow-up encounter Neuropathy KEZIA treated with BiPAP Moderate persistent allergic asthma without complication Asbestos exposure GERD (gastroesophageal reflux disease) BPH (benign prostatic hyperplasia) Osteopenia Osteoarthritis DDD (degenerative disc disease), cervical Gastric ulcer Obesity Rheumatoid arthritis Kidney stones Prostate cancer Home Medications ?Medication ?Instructions ?Recorded ?Last Taken ?Type hydroxychloroquine 200 mg tablet 200 mg PO DAILY arthritis 01/05/21 02/19/25 History (Plaquenil) cholecalciferol (vitamin D3) 50 50 mcg PO DAILY supplement 12/27/21 02/19/25 History mcg (2,000 unit) capsule leflunomide 20 mg tablet 20 mg PO DAILY arthritis 05/16/22 02/19/25 History multivitamin (Multiple Vitamins 1 tab PO DAILY supplement 05/16/22 02/19/25 History tablet) flurbiprofen 100 mg tablet 100 mg PO DAILY PRN pain #90 tabs 12/19/22 02/19/25 Rx famotidine 20 mg tablet 20 mg PO QDAY 04/02/24 02/19/25 History tocilizumab 162 mg/0.9 mL 162 mg subcut Q7D 02/10/25 Unknown History subcutaneous pen injector (Actemra ACTPen) albuterol sulfate 90 mcg/actuation 2 inh inhalation Q6H PRN ASTHMA #3 04/02/25 Unknown Rx aerosol inhaler ea budesonide-formoterol HFA 160 2 inh inhalation BID breathing #3 04/02/25 Unknown Rx mcg-4.5 mcg/actuation aerosol ea inhaler (Symbicort) cranberry extract 425 mg capsule 425 mg PO QDAY 04/02/25 Unknown History fluticasone propionate 50 2 spray intranasal DAILY #3 ea 04/02/25 Unknown Rx mcg/actuation nasal spray,suspension gabapentin 300 mg capsule mg PO 04/02/25 Unknown History latanoprost 0.005 % eye drops 1 drp ophthalmic (eye) QDAY 04/02/25 Unknown History loratadine 10 mg tablet 10 mg PO DAILY #90 tabs 04/02/25 Unknown Rx montelukast 10 mg tablet 10 mg PO QPM sinuses #90 tabs 04/02/25 Unknown Rx tiotropium bromide 1.25 2 inh inhalation DAILY BREATHING 04/02/25 Unknown Rx mcg/actuation mist for inhalation #3 device (Spiriva Respimat) Allergy/AdvReac Type Severity Reaction Status Date / Time doxycycline AdvReac Intermediate Hives Verified 05/06/25 23:51 Environmental Allergies: AdvReac Intermediate Other Verified 05/06/25 23:51 Uncoded Family History (Reviewed 04/02/25 @ 13:26 by Leia Johnson BUSINESS DEVELOPMENT ASSISTANT, BUSINESS DEVELOPMENT ASSISTANT-C) Mother Heart disease CHF atrial fib Sister Hypertension Surgical History H/O toe surgery History of shoulder replacement History of cardiac catheterization Hx of colonoscopy Hx of foot surgery History of removal of retained hardware History of tonsillectomy History of rhinoplasty History of total knee arthroplasty H/O prostatectomy History of inguinal hernia repair History of carpal tunnel release History of left heart catheterization (07/23/18) Social History (Reviewed 04/02/25 @ 13:26 by Leia Johnson BUSINESS DEVELOPMENT ASSISTANT, BUSINESS DEVELOPMENT ASSISTANT-C) household members: spouse Smoking Status: Never smoker second hand exposure: No alcohol intake: never substance use type: does not use what type of physical activity do you participate in: none drea/denominational: Sikhism seatbelt use: always ROS ROS ED Constitutional Constitutional ED: Denies chills or fever(s) ENT ENT ED: Reports sore throat Cardiovascular Cardiovascular: Denies chest pain Respiratory/Chest Respiratory/Chest: Denies cough or dyspnea Gastrointestinal Gastrointestinal: Denies abdominal pain, diarrhea, nausea or vomiting Musculoskeletal Musculoskeletal: Reports other Details: Positive right shoulder pain Integumentary Denies rash Neurologic Neurologic: Denies headache(s) or paresthesias Hematologic/Lymphatic Hematologic/Lymphatic: Denies easy bleeding or easy bruising EXAM Physical Exam Const Vital Signs: 05/06/25 23:51 Temperature 96.9 F L Temperature Source Temporal Pulse Rate 74 Respiratory Rate 18 Blood Pressure 150/88 H Blood Pressure Mean 108 Pulse Ox 95 Oxygen Delivery Method Room Air Positive well nourished and well developed General Appearance ED: well developed; Negative for pallor HEENT HEENT Narrative: Normocephalic atraumatic Eyes PERRL and EOMs intact bilaterally General Eye ED: Negative for scleral icterus Neck supple Resp normal respiratory effort and clear to auscultation bilaterally Cardio regular rate and regular rhythm Extremity Extremity Narrative: Right upper extremity is neurovascularly intact; there is a sulcus sign present consistent with dislocation. Active and passive range of motion is severely limited secondary to the dislocation. All compartments are soft and compressible going against compartment syndrome Remainder of the exam is normal Neuro oriented x3, CN's II-XII intact bilaterally and no sensory deficits noted Sensorium / Orientation: alert Psych mental status grossly normal Skin no rashes or lesions noted and no wounds General Skin Exam: Negative for jaundice or pallor MDM MDM MDM Narrative Medical decision making narrative: Patient arrived to the ER with stable vitals. He reported a past history of shoulder dislocation and his physical exam is consistent with this. As he does not have signs of neurovascular compromise or secondary infection such as cellulitis or abscess I feel no need for laboratory studies. An x-ray was obtained to confirm dislocation. After this the patient underwent conscious sedation with closed reduction in order to reduce the dislocated right shoulder joint. The patient was given a total of 30 mg of propofol and 2.5 mg of Versed. Traction/countertraction was used and there was a audible clunk and visual improvement in the shoulder joint indicating successful reduction. Following reduction the patient was placed in a sling and he was neurovascularly intact. A repeat x-ray was obtained which did confirm proper realignment. Therefore at this time as patient's had reduction of his dislocation and remains neurovascularly intact there is no need for further intervention or emergent orthopedic consultation and he is otherwise safe for discharge History & Record Review Discussion w/independent historian: Patient and Significant other Radiography Diagnostic Testing: Clinical Impression(s) from Imaging Studies Shoulder X-Ray 05/07/25 00:35 IMPRESSION: Changes from prior shoulder arthroplasty, unchanged. Complete anterior/inferior dislocation of the humeral head metallic prosthesis in relation to the glenoid cavity. No fracture is identified. Reading Location: [place] [address] Right shoulder x-ray as interpreted by the emergency medicine physician reveals previous arthroplasty with a anterior-inferior dislocation Right shoulder x-ray status post reduction as interpreted by the emergency medicine physician reveals normal alignment of the right shoulder with resolution of the previous dislocation. Procedures Procedural Sedation 1 (Initial Baseline): Consent Signed: Yes Any Problems With Anesthesia: No You/Your family experience fever (hyperthermia) w/anesthesia: Unknown Sedation medication: Propofol Dose: 30 Maliampati Score: Class II ASA Classification: III Comment:: Please note 30 mg of propofol and 2.5 mg of Versed was used for conscious sedation. Total conscious sedation time was approximately 10 minutes. Discharge Plan Triage Chief Complaint: Dislocation ED Provider: Neo Hernandez Dx/Rx/DC Orders Clinical Impression: Anterior dislocation of right shoulder, BPH (benign prostatic hyperplasia), Rheumatoid arthritis, Hyperlipidemia, GERD (gastroesophageal reflux disease) Prescriptions: No Action cholecalciferol (vitamin D3) 50 mcg (2,000 unit) capsule 50 mcg PO DAILY leflunomide 20 mg tablet 20 mg PO DAILY multivitamin [Multiple Vitamins] Tablet 1 tab PO DAILY flurbiprofen 100 mg tablet 100 mg PO DAILY PRN (Reason: pain) Qty: 90 3RF famotidine 20 mg tablet 20 mg PO QDAY latanoprost 0.005 % drops 1 drp ophthalmic (eye) QDAY cranberry extract 425 mg capsule 425 mg PO QDAY Rx Instructions: administer with a meal gabapentin 300 mg capsule PO budesonide-formoterol [Symbicort] 160-4.5 mcg/actuation HFA aerosol inhaler 2 inh inhalation BID Qty: 3 3RF albuterol sulfate 90 mcg/actuation HFA aerosol inhaler 2 inh inhalation Q6H PRN (Reason: ASTHMA) Qty: 3 3RF fluticasone propionate 50 mcg/actuation spray,suspension 2 spray intranasal DAILY Qty: 3 3RF Rx Instructions: administer into each nostril montelukast 10 mg tablet 10 mg PO QPM Qty: 90 3RF Spiriva Respimat 1.25 mcg/actuation mist 2 inh INHALATION DAILY Qty: 3 3RF loratadine 10 mg tablet 10 mg PO DAILY Qty: 90 3RF Actemra ACTPen 162 mg/0.9 mL pen injector 162 mg subcut Q7D Patient Comments: [NO ORIGINAL SIG] hydroxychloroquine [Plaquenil] 200 mg Tablet 200 mg PO DAILY Primary Care Provider: Ganga Acosta Referrals: Ganga Acosta DO [Primary Care Provider, Family Practice] Print Language: Botswanan Disposition Disposition: Home, Self Care
== END 2025-05-07 02:34 | disposition home or self-care (01) ==
PROVIDERS: Emergency Provider Emergency Medicine; PCP Family Medicine; Visit Provider Emergency Medicine
DX: M24.411 Recurrent dislocation, right shoulder (principal); M06.9 Rheumatoid arthritis, unspecified; K21.9 Gastro-esophageal reflux disease without esophagitis; E78.5 Hyperlipidemia, unspecified; N40.0 Benign prostatic hyperplasia without lower urinary tract symptoms; Z79.899 Other long term (current) drug therapy; Z96.611 Presence of right artificial shoulder joint
CPT/HCPCS: 23650; 73030; 96361; 96374; 96375; 99155; 99282; 99285; J2405

== ENCOUNTER → 2025-05-12 | Outpatient (CLI) | payer MEDICARE, SELFPAY ==
--- NOTE | 2025-05-12 18:30 | CT_ITS ---
PROCEDURE: EXTREMITY UPPER WITHOUT CONTRA 05/12/2025 REASON FOR EXAM: RIGHT SHOULDER DISLOCATION- LUIS ARMANDO Arthroplasty. TECHNIQUE: Procedure Code: CTEUWO Modality: CT Procedure: EXTREMITY UPPER WITHOUT CONTRA Coronal and Sagittal reconstruction series were provided. One or more dose reduction techniques were used (e.g., Automated exposure control, adjustment of the mA and/or kV according to patient size, use of iterative reconstruction technique. RADIATION DOSE SUMMARY: CTDlvol: 53 mGy DLP: 1265 mGycm COMPARISON: None FINDINGS: Bones: Right shoulder reverse arthroplasty intact. Not dislocated at this time. Scapula negative. Adjacent ribs negative. Joints: Intact right shoulder reverse arthroplasty. No loosening or lucency. No significant joint effusion. Age-appropriate degenerative changes in the acromioclavicular joint. Soft Tissues: Subscapularis musculature appears atrophic otherwise normal rotator cuff musculature. Adjacent structures negative. CT/Extremity Upper without Contra IMPRESSION: Right shoulder reverse arthroplasty without dislocation. Reading Location: [place] [address]
== END | disposition home or self-care (01) ==
PROVIDERS: PCP Family Medicine; Referring Provider Specialist; Visit Provider Specialist
DX: M24.411 Recurrent dislocation, right shoulder (principal); Z96.611 Presence of right artificial shoulder joint
CPT/HCPCS: 73200